=== PATIENT | female | born 1945 | race Caucasian/White ===

== ENCOUNTER 2017-06-16 08:53 | Inpatient (IN) | payer MEDICARE, SELFPAY ==
[2017-06-16] VITALS (10 sets, daily range): BP systolic 117–160; BP diastolic 58–77; PULSE 54–103; RESP 14–18; TEMP 36.7–37.1; O2SAT 95–98; BMI 22.7; BMI 21.2
--- NOTE | 2017-06-16 09:06 | EKG12_ITS ---
Test Reason : DIARRHEA Blood Pressure : / mmHG Vent. Rate : 091 BPM Atrial Rate : 091 BPM P-R Int : 186 ms QRS Dur : 092 ms QT Int : 362 ms P-R-T Axes : 049 007 049 degrees QTc Int : 445 ms Normal sinus rhythm Nonspecific ST abnormality Abnormal ECG Confirmed by MELY SMITH, DARCIE ([id number]), supervising editor news reel LILLIAN FORD ([id number]) on 06/18/2017 2:49:19 PM Referred By: SANTO Confirmed By:DARCIE BOONE MD
--- NOTE | 2017-06-16 09:07 | CT_ITS ---
STUDY: CT ABDOMEN AND PELVIS WITH CONTRAST REASON FOR EXAM: Female, 72 years old. Diarrhea since 06/05/2017. Nausea. Benign mass removed from left kidney. Previous tubal ligation and cholecystectomy. RADIATION DOSAGE (If Supplied By Facility): CTDIvol = ( 26.15 ) mGy, DLP = ( 563.60 ) mGycm TECHNIQUE: Transaxial images were obtained from the dome of the diaphragm to the symphysis pubis with oral contrast. 100CC ml of Isovue 300 contrast was administered. Sagittal and coronal images were reconstructed. Individualized dose optimization techniques were used for this CT. COMPARISON: 11/04/2016. FINDINGS: Minimal curvilinear subsegmental atelectases in the left posterior medial lung base. The visualized portions of the heart are within normal limits. Normal liver. Postsurgical absence of the gallbladder. Normal spleen. Normal pancreas. Normal bilateral adrenal glands. Normal right kidney. Normal left kidney. Prominent gastric hernia in the posterior mediastinum. There is a tubular foreign body that appears to extend from the right lateral L3 vertebral body margin through the inferior vena cava and into contrast-filled small bowel loops (series 2, images 31-35). This tube appears to have an air filled mushroom tip (series 2, image 33). Air distended colon. The appendix is not visualized or at least extremely hard to find. Atherosclerotic calcifications of the abdominal aorta. Tubular lucency traversing the IVC is uncertain for artifact (series 2, images 33-35). Normal retroperitoneum. Normal urinary bladder. Normal abdominal wall. Pronounced levo rotoscoliosis of the lumbar spine. Diffuse disc space height narrowing throughout the lumbar spine with degenerative vacuum phenomenon. No acute osseous abnormality. CT/Abdomen/Pelvis WITH Contrast IMPRESSION: 1. Tubular lucency foreign body versus artifact extending from the right lateral L3 vertebral body margin through the inferior vena cava and into the contrast-filled small bowel loops (series 2, images 31-35). This tube tip appears to have an air filled mushroom tip. 2. Gaseous dilatation of the colon. 3. Prominent gastric hernia in the posterior mediastinum. 4. Pronounced levo rotary scoliosis of the lumbar spine. Electronically Signed: Lux Zuniga MD at 11:56 EDT , Service support ,
--- NOTE | 2017-06-16 09:11 | ED.VISSUMM ---
- ER Visit Summary Date of Service: 06/16/17 Chief Complaint: Diarrhea History of Present Illness: The patient is a 72 F presenting with diarrhea ?11 days. Patient states that she has had persistent diarrhea which has worsened over the last several days. She denies blood in her stool. She has nausea with no vomiting. She has diffuse abdominal cramping. She denies fever. She saw her primary care physician last week and had blood work and stool studies sent. She does not know the results of her stool studies. She presents to the ED today due to generalized weakness and fatigue. She denies syncope. Denies chest pain shortness of breath. Physical Examination: Vitals are stable. Patient is afebrile. Alert no acute distress. HEENT exam is unremarkable. Neck is supple. Lungs are clear and equal bilaterally. Heart is regular rate and rhythm. Abdomen is soft nontender distended. No guarding or rebound Extremities are unremarkable. Skin is warm and dry. No focal neurologic deficit. Remainder of exam is unremarkable. Emergency Department Course and Treatment: Patient is given IV fluids, Zofran. EKG is sinus rhythm rate of 91. Urinalysis shows 25-50 white blood cells, 1+ bacteria. Urine culture was sent. She was given Rocephin IV. Chemistries show potassium 2.5. She is given potassium IV replacement. CT abdomen shows tubular lucency foreign body versus artifact extending from the right lateral L3 vertebral body margin through the inferior vena cava and into the contrast-filled small bowel loops (series 2, images 31-35). This tube tip appears to have an air filled mushroom tip. Gaseous dilatation of the colon. Prominent gastric hernia in the posterior mediastinum. Pronounced levo rotary scoliosis of the lumbar spine. Findings were discussed with the radiologist. Patient has had no procedures or drains to explain this. He states it may be artifact. On repeat exam her abdomen is soft and nontender. Discussed with the hospitalist for admission. Disposition: Admission Impression: Diarrhea, hypokalemia, UTI, generalized weakness This note was generated with [employer] dictation software. It may contain incorrect words, spelling, and punctuation that were not noted in review of the chart prior to signing ED Disposition - Plan for ED Patient: Chief Complaint: Diarrhea Referrals: Femi Baeza MD [Primary Care Provider] -
[2017-06-16 09:23] LABS: Mucous, Urine 0 SEEN /hpf (<or=2+)
[2017-06-16 09:24] LABS: Color, Urine Yellow (Yellow); Glucose, Dipstick Normal (Normal); Ketone-Dipstick 5 mg/dl (Negative); Leukocyte Esterase-Dipstick 500 /ul (Negative); Nitrite-Dipstick Negative (Negative); Occult Blood-Urine 50 /ul (Negative); Protein-Dipstick 30 mg/dl (Negative); Specific Gravity, Urine 1.015 (1.002-1.030); Urine Bilirubin Dipstick Negative (Negative); Urine Clarity Sl. Cloudy (Clear); Urine Urobilinogen Normal (Normal); Urine pH 6.5 (5.0 - 8.0)
[2017-06-16] MEDS: Ondansetron 4 MG/2 ML Vial IV (09:30)
[2017-06-16] MEDS: 0.9% Normal Saline 1,000 ML 1000 ML IV (09:30)
[2017-06-16 09:33] LABS: Bacteria 1+ /hpf (None Seen); Red Blood Cells-Urine 0-5 SEEN /hpf (0-5); Squamous Epithelial Cells - UA 0-5 SEEN /hpf (5-10); White Blood Cells 25-50 SEEN /hpf (0-5)
[2017-06-16 09:39] LABS: Absolute Lymphocyte Count 0.71 X10^3/ul (0.83-4.51); Absolute Neutrophil Count 8.4 X10^3/uL (2.0-7.7); Basophil# 0.01 X10^3/uL; Basophil% 0.1 % (0-1); Eosinophil# 0.01 X10^3/uL; Eosinophils% 0.1 % (0-5); Hematocrit 41.8 % (37-47); Hemoglobin 13.6 g/dl (12.0-15.0); Lymphocyte # 0.71 X10^3/ul (4.0); Lymphocyte % 7.1 % (19-41); Mean Corp Hgb Conc 32.5 g/gl (32-36); Mean Corpuscular Hgb 28.9 pg (27.0-32.0); Mean Corpuscular Volume 88.7 fL (81-99); Mean Platelet Vol. 10.5 fl (6.2-12.0); Monocyte# 0.85 X10^3/uL; Monocyte% 8.5 % (0-10); Neutrophil # 8.38 X10^3/uL (2.7-7.7); POSITIVE COUNT NO; POSITIVE DIFFERENTIAL NO; POSITIVE MORPHOLOGY NO; Platelet Count 171 K/mm3 (150-450); RBC Distribution Width CV 13.4 % (11.6-14.6); RBC Distribution Width SD 43.6 fl (35.1-43.9); Red Blood Count 4.71 M/mm3 (4.2-5.4)
[2017-06-16 10:00] LABS: Lactic Acid 1.1 mmol/L (0.4-2.0)
[2017-06-16 10:27] LABS: AST(SGOT) 21 U/L (15-37); Alanine Aminotransfer ALT/SGPT 27 U/L (13-56); Albumin, Serum 3.7 g/dL (3.2-5.0); Alkaline Phosphatase 78 U/L (45-117); Anion Gap 7 (5-15); BUN 13 mg/dL (7-18); Calcium,Total 8.8 mg/dL (8.5-10.1); Chloride 109 mmol/L (98-107); Creatinine, Serum 0.81 mg/dL (0.55-1.02); EST Glomerular Filtration Rate 74 mL/min (>60); Est Glom Filt Rate - Afr Amer 90 mL/min (>60); Estimated Creatinine Clearance 66.57 ml/min; Globulin 3.6 g/dL (2.2-4.2); Glucose 132 mg/dL (74-106); Potassium 2.5 mmol/L (3.5-5.1); Protein, Total 7.3 g/dL (6.4-8.2); Sodium Level 145 mmol/L (136-145)
[2017-06-16] MEDS: Ceftriaxone 1 GM/50 ML BAG IV (11:25)
[2017-06-16] MEDS: Heparin Injection (Vial) 5,000 UNIT/ML VIAL 5000 UNIT SC ×2 (16:42→21:02)
[2017-06-16 16:59] LABS: Magnesium 1.8 mg/dL (1.6-2.6)
--- NOTE | 2017-06-16 20:09 | HP.PCM_ITS ---
Problem List (1) Diarrhea Status: Acute Qualifiers: Diarrhea type: unspecified type Qualified Code(s): R19.7 - Diarrhea, unspecified (2) Hypokalemia Status: Acute (3) Benign essential hypertension Status: Chronic History of Present Illness Date of Admission: 06/16/17 Chief Complaint: Diarrhea Patient is a 72 years old female who presents to ED with complaining of diarrhea for 10 days, admitted on 06/16/17. She has been having diarrhea for about 10 days, bowel movements about 7 to 10 times a day with use of Imodium. She has mild abdominal discomfort with diffuse cramping. She denied of any nausea, vomiting, or hematochezia. She had some chills in the beginning, but no fever. She is having generalized weakness, decided to come to ED. She was seen at [facility] outpatient office few days ago, had stool test for c. diff, which was negative. She had no recent treatment with antibiotics. Past Medical History Past Medical History (Chronic Problems): Chronic Problems Overactive bladder (Chronic) GERD (gastroesophageal reflux disease) (Chronic) Osteoarthritis (Chronic) Benign essential hypertension (Chronic) Allergies esomeprazole [From Nexium] Adverse Reaction (Verified 06/16/17 08:55) Nausea/Vom/Diarrhea Home Medications: Ambulatory Orders Medication Instructions Recorded Acetaminophen [Tylenol] 500 - 1,000 mg PO Q6H PRN PRN 12/26/15 Alendronate Sodium [Fosamax] 70 mg PO Q7D@0700 12/26/15 Aspirin 81 mg PO DAILY 12/26/15 Cholecalciferol (VIT D3) [Vitamin 2,000 unit PO DAILY 12/26/15 D3] Cromolyn Sodium 4 drop OP Q6H PRN 12/26/15 Diltiazem HCl [Diltiazem 24Hr ER] 360 mg PO DAILY 12/26/15 Hydrochlorothiazide [Hctz] 25 mg PO DAILY 12/26/15 Losartan Potassium [Cozaar] 25 mg PO DAILY 12/26/15 Multivit-Min/FA/Lycopen/Lutein 1 each PO DAILY 12/26/15 [Centrum Silver Tablet] Oxybutynin [Ditropan] 5 mg PO BID 12/26/15 Pantoprazole Sodium [Protonix] 40 mg PO DAILY 12/26/15 Surgical History: cholecystectomy Smoking Status: Former smoker Tobacco Use: Cigarettes - *Family History Maternal History Items: No pertinent history Review of Systems Comment: ROS: In general: Patient has been in good health, denied of any constitutional symptoms, such as weight loss, or gain, fever, chills, or night sweats. Patient denied of any profound fatigue. HEENT: Unremarkable. Patient denied of any dizziness, chronic headache, blurred vision, double vision, dry mouth, or nasal congestion. CV/respiratory: There is no exertional shortness of breath, chest pain, palpitation, wheezing, cough, claudication, cold feet, or peripheral edema. GI: See HPI. : Patient denied any significant urinary symptoms. Neurology: Unremarkable. There is no history of seizure as an adult. Psychological: Unremarkable. ?. Endocrine: Unremarkable. Musculoskeletal: Unremarkable. VTE Information - Inpt Only VTE Present on Admission: No VTE Mechan Device Prophylaxis: Knee High ANGELO Hose VTE Pharm Prophylaxis ordered?: Yes Patient Problems: Active and Suspected Problems Diarrhea (Acute) Hypokalemia (Acute) Objective: In general, patient is a well-nourished and developed adult. HEENT: Head is atraumatic, and normocephalic. Pupils are equal, round, and reactive to light and accommodations. Neck is supple. There is no lymphadenopathy, or thyromegaly. Oral mucosa is pink, and moist. There are no lesions. Heart: Auscultation is normal with regular rhythm and rate. There is no extra heart sounds, or murmurs. S1 and S2 are present. Point of maximal impulse is not displaced. Lungs: Lungs are clear to auscultation bilaterally. There is no wheezing, or crackles. Abdomen: non-tender, mildly distended, not tympanic. Bowel sounds normal. NO palpable mass or organomegaly. Extremities: There is no cyanosis or clubbing. Peripheral pulses are palpable. There is no edema. Skin: There are no any skin discoloration or lesions. Neurological: CN II - XII are intact. Sensory and motor functions are grossly normal with no obvious deficit. Cerebellar functions are within normal range. Gait was not tested. - Physical Exam Vital Signs Temp Pulse Resp BP Pulse Ox 98.1 F 71 16 146/77 H 98 06/16/17 15:02 06/16/17 18:00 06/16/17 15:02 06/16/17 15:02 06/16/17 15:02 Oxygen Delivery Method Room Air Weight: 146 lb Body Mass Index (BMI) 21.2 Intake and Output for Last 24 Hours 06/14/17 06/15/17 06/16/17 23:59 23:59 23:59 Intake Total 621 / 621 Balance 621 / 621 Microbiology Past 72 Hours 06/16/17 14:50 C. difficile DNA Amplification - Final Stool Assessment/Plan Active and Suspected Problems Diarrhea (Acute) Hypokalemia (Acute) Patient is a 72 years old female who presents to ED with complaining of diarrhea for 10 days, admitted on 06/16/17. She has been having diarrhea for about 10 days, bowel movements about 7 to 10 times a day with use of Imodium. She has mild abdominal discomfort with diffuse cramping. She denied of any nausea, vomiting, or hematochezia. She had some chills in the beginning, but no fever. She is having generalized weakness, decided to come to ED. She was seen at [facility] outpatient office few days ago, had stool test for c. diff, which was negative. She had no recent treatment with antibiotics. #1 Diarrhea. Etiology is not very clear. Repeated c. diff toxin was negative. Enteric panel, lactoferrin, h. pylori, culture with shigella, and giardia EIA ordered. IVF support. Clear liquid diet, advance as tolerated. Consider GI and ID consult. #2 Hypokalemia. K+ 2.5. Secondary to persisting diarrhea. Hold HCTZ. KCL IVP 40 meq x 2. Start K-Dur 40 meq po bid. BMP and Mg level in AM. #3 GERD. Continue PPI po. #4 History of laxative abuse. CT showed dilated bowel, more consistent with chronic change with laxative bowel. VTE prophylaxis: heparin SQ. GI prophylaxis: ppi po. She is full code. Disposition: home in 1 to 2 days. Code Visit Inpatient E&M: 31963 Init Hosp L3
[2017-06-16] MEDS: Oxybutynin 5 MG Tablet PO (21:08)
[2017-06-17] VITALS (11 sets, daily range): BP systolic 129–151; BP diastolic 66–100; PULSE 62–86; RESP 16–18; TEMP 36.6–37.5; O2SAT 96–98
[2017-06-17] MEDS: Ondansetron 4 MG/2 ML Vial IV (02:08)
[2017-06-17] MEDS: Acetaminophen 325 MG Tablet 650 MG PO (02:09)
[2017-06-17] MEDS: proMETHazine 25 MG/ML Syringe 12.5 MG IV (04:48)
[2017-06-17] MEDS: Heparin Injection (Vial) 5,000 UNIT/ML VIAL 5000 UNIT SC ×3 (05:36→22:39)
[2017-06-17 06:10] LABS: Absolute Lymphocyte Count 1.13 X10^3/ul (0.83-4.51); Absolute Neutrophil Count 3.5 X10^3/uL (2.0-7.7); Basophil# 0.02 X10^3/uL; Basophil% 0.4 % (0-1); Eosinophil# 0.09 X10^3/uL; Eosinophils% 1.7 % (0-5); Hematocrit 37.6 % (37-47); Hemoglobin 11.9 g/dl (12.0-15.0); Lymphocyte # 1.13 X10^3/ul (4.0); Lymphocyte % 21.2 % (19-41); Mean Corp Hgb Conc 31.6 g/gl (32-36); Mean Corpuscular Hgb 28.3 pg (27.0-32.0); Mean Corpuscular Volume 89.5 fL (81-99); Mean Platelet Vol. 11.2 fl (6.2-12.0); Monocyte# 0.55 X10^3/uL; Monocyte% 10.3 % (0-10); Neutrophil # 3.54 X10^3/uL (2.7-7.7); Neutrophil % 66.2 % (47-70); Platelet Count 170 K/mm3 (150-450); RBC Distribution Width CV 13.6 % (11.6-14.6); RBC Distribution Width SD 44.6 fl (35.1-43.9); White Blood Count 5.3 K/mm3 (4.4-11.0)
[2017-06-17 06:33] LABS: POSITIVE COUNT NO; POSITIVE DIFFERENTIAL NO; POSITIVE MORPHOLOGY NO
[2017-06-17 06:35] LABS: Anion Gap 6 (5-15); BUN 6 mg/dL (7-18); BUN/Creat Ratio 10.8 RATIO (10-20); Calcium,Total 8.3 mg/dL (8.5-10.1); Chloride 110 mmol/L (98-107); Creatinine, Serum 0.56 mg/dL (0.55-1.02); EST Glomerular Filtration Rate 114 mL/min (>60); Est Glom Filt Rate - Afr Amer 138 mL/min (>60); Estimated Creatinine Clearance 53.93 ml/min; Glucose 111 mg/dL (74-106); Magnesium 1.6 mg/dL (1.6-2.6); Potassium 2.7 mmol/L (3.5-5.1); Sodium Level 144 mmol/L (136-145)
[2017-06-17] MEDS: Aspirin 81 MG TAB.CHEW PO (08:07)
--- NOTE | 2017-06-17 09:16 | PCM.PROGNOTE ---
Patient Problems: Active and Suspected Problems Diarrhea (Acute) Hypokalemia (Acute) Subjective: Chief complaint: Follow-up after admission for acute diarrhea illness and severe hypokalemia. Patient seen and examined. No acute events overnight. She is still complaining of perfuse watery diarrhea, 3 times overnight and twice this morning. Denied abdominal pain, nausea or vomiting. Denied fever chills. Her vital signs are stable. - Physical Exam General: Alert, Oriented x3, Cooperative, No apparent distress HEENT: Atraumatic, PERRLA Oral: Moist Mucosa, No Gingival or Mucosal Lesions/ Ulcerations Neck: Supple, No JVD, Negative Carotid Bruits, Trachea Midline, Thyroid Normal Size and Texture Lungs: Clear to auscultation, No rhonchi, No wheeze, No rales, Diminished Cardiovascular: Regular rate, Regular Rhythm, Normal S1, Normal S2, PMI Normal Abdomen: Bowel Sounds Present, Soft, Non Tender, Non-Distended, No Hepato-splenomegaly Extremities: No clubbing, No cyanosis, No edema Skin: No rashes, No breakdown Lymphatic: No Cervical, Supraclavicular, or Inguinal Adenopathy Neurological: Cranial nerves II-XII grossly intact, Motor Exam 5/5 strength throughout Psych/Mental Status: Normal Affect, Appropriate Vital Signs Temp Pulse Resp BP Pulse Ox 97.8 F 71 18 151/100 H 96 06/17/17 08:14 06/17/17 08:14 06/17/17 08:14 06/17/17 08:14 06/17/17 08:14 Oxygen Delivery Method Room Air Weight: 146 lb Body Mass Index (BMI) 21.2 Intake and Output for Last 24 Hours 06/15/17 06/16/17 06/17/17 23:59 23:59 23:59 Intake Total 621 / 621 2065 / 2065 Output Total 1600 / 1600 Balance 621 / 621 465 / 465 Microbiology Past 72 Hours 06/16/17 14:50 Stool Lactoferrin - Final Stool 06/16/17 14:50 C. difficile DNA Amplification - Final Stool Laboratory Tests Past 24 Hrs 06/16/17 06/17/17 06/17/17 20:30 05:10 05:10 WBC 5.3 RBC 4.20 Hgb 11.9 L Hct 37.6 MCV 89.5 MCH 28.3 MCHC 31.6 L RDW 13.6 RDW Differential 44.6 H Plt Count 170 MPV 11.2 Immature Gran % (Auto) 0.200 Neut % (Auto) 66.2 Lymph % (Auto) 21.2 [place] % (Auto) 10.3 H Eos % (Auto) 1.7 Baso % (Auto) 0.4 Absolute Neuts (auto) 3.5 Absolute Lymphs (auto) 1.13 Total Counted Not Reportable Sodium 144 Potassium 2.7 L* Chloride 110 H Carbon Dioxide 28.0 Anion Gap 6 BUN 6 L Creatinine 0.56 Estim Creat Clear Calc 53.93 Est GFR (MDRD) Af Amer 138 Est GFR (MDRD) Non-Af 114 BUN/Creatinine Ratio 10.8 Glucose 111 H Calcium 8.3 L Magnesium 1.6 Stl Giardia Antigen Pending Stool H. pylori Ag Pending Medical Necessity - Tobacco Use Smoking Status: Former smoker Tobacco Use: Cigarettes Assessment/Plan Active and Suspected Problems Diarrhea (Acute) Hypokalemia (Acute) This is a 72 years old female patient admitted because of diarrhea and she was found to have severe hypokalemia as well as suspected foreign body on CT scan abdomen. #1 acute diarrheal illness: Probably due to viral gastroenteritis. Stool for C. difficile was negative. Stool for enteric pathogens also was negative. Patient still symptomatic with diarrhea. Denied fever chills. Denied abdominal pain. She is on IV fluids. She is tolerating diet, kidney function is normal. Plan: Continue same treatment. #2 severe hypokalemia: This is secondary to perfuse diarrhea as well as HCTZ. She is on aggressive potassium replacement, HCTZ on hold. Today's potassium is still 2.7, is very low. Her magnesium level is normal. Plan to continue aggressive potassium replacement, repeat potassium at 1 PM today, repeat BMP tomorrow morning. #3 questionable foreign body: This is an incidental finding on CT scan abdomen and pelvis with contrast which revealed tubular foreign body extends from right lateral L3 vertebra through the inferior vena cava and into the contrast filled small bowel loops. Patient denies any abdominal pain. Abdominal examination is benign. This could be hard stool with overflow diarrhea. Reportedly, patient had a history of laxative abuse. Plan: General surgery consult. #4 hypertension: Blood pressure stable, continue Cardizem and losartan. #5 GERD: Continue Protonix. #6 overactive bladder: Continue Ditropan. #7 DVT prophylaxis: Subcu heparin. This note was generated with [employer] dictation software. It may contain incorrect words, spelling, and punctuation that were not noted in checking the note before signing. Code Visit Inpatient E&M: 04114 Subs Hosp L2
--- NOTE | 2017-06-17 11:02 | CASEMGMT ---
RN YASH Face to Face with patient for initial transition planning/care coordination assessment. RN CM introduced self and role at [facility]. Patient lying in bed, alert and oriented, son at bedside. Patient willing to participate in assessment and is able to answer all questions appropriately. Care providers, pharmacy, and demographics verified. See link attached. Patient wishes to discharge home, denies need for home health at this time. Patient states she has no further needs or concerns at this time. CM to follow for discharge planning needs that may arise. Disposition Plan: Patient to discharge home with family support and follow-up plans in place.
[2017-06-17] MEDS: Pantoprazole Sodium 40 MG Tablet PO (11:18)
[2017-06-17] MEDS: dilTIAZem CD 180 MG Capsule 360 MG PO (11:18)
[2017-06-17] MEDS: Losartan Potassium 25 MG Tablet PO (11:18)
[2017-06-17] MEDS: Oxybutynin 5 MG Tablet PO ×2 (11:18→22:37)
[2017-06-17] MEDS: Magnesium Hydroxide 30 ML UDC PO (12:27)
[2017-06-17] MEDS: Magnesium Oxide 400 MG Tablet PO (17:15)
[2017-06-17] MEDS: Ciprofloxacin 500 MG Tablet PO (18:26)
[2017-06-18 01:50] VITALS: PULSE 62
[2017-06-18 03:00] VITALS: BP 125/72; PULSE 63; RESP 16; TEMP 37.2; O2SAT 95
[2017-06-18] MEDS: Ciprofloxacin 500 MG Tablet PO (05:48)
[2017-06-18] MEDS: Heparin Injection (Vial) 5,000 UNIT/ML VIAL 5000 UNIT SC (05:48)
[2017-06-18 06:00] VITALS: PULSE 76
[2017-06-18 06:54] LABS: Anion Gap 6 (5-15); BUN 5 mg/dL (7-18); BUN/Creat Ratio 8.5 RATIO (10-20); Calcium,Total 8.7 mg/dL (8.5-10.1); Chloride 108 mmol/L (98-107); Creatinine, Serum 0.59 mg/dL (0.55-1.02); EST Glomerular Filtration Rate 107 mL/min (>60); Est Glom Filt Rate - Afr Amer 129 mL/min (>60); Estimated Creatinine Clearance 53.93 ml/min; Glucose 115 mg/dL (74-106); Potassium 3.8 mmol/L (3.5-5.1); Sodium Level 141 mmol/L (136-145)
[2017-06-18 07:25] VITALS: PULSE 55
[2017-06-18] MEDS: Magnesium Oxide 400 MG Tablet PO (07:38)
[2017-06-18] MEDS: Aspirin 81 MG TAB.CHEW PO (07:39)
[2017-06-18 08:09] VITALS: BP 134/75; PULSE 67; RESP 16; TEMP 37.4; O2SAT 98
--- NOTE | 2017-06-18 08:55 | PCM.DC ---
- Discharge Diagnoses Current Active Problems: Current Active and Chronic Problems Diarrhea (Acute) Hypokalemia (Acute) You will use the following diet at home:: Cardiac, High fiber Your food should be the consistency of: Regular Discharge Activity: Return to Normal Activity Weight Bearing Status: Weight bearing as tolerated Call your doctor if you observe: Fever of 101 or Higher, Shortness of breath, Dizziness, Fainting spells, Chest pain, Increased palpitations (irregular heartbeat), Uncontrolled pain Allergies/Adverse Reactions: Allergies esomeprazole [From Nexium] Adverse Reaction (Verified 06/16/17 08:55) Nausea/Vom/Diarrhea Medications to take at Discharge Acetaminophen [Tylenol] 500 - 1,000 mg PO Q6H PRN PRN 12/26/15 Alendronate Sodium [Fosamax] 70 mg PO Q7D@0700 12/26/15 Aspirin 81 mg PO DAILY 12/26/15 Cholecalciferol (VIT D3) [Vitamin D3] 2,000 unit PO DAILY 12/26/15 Diltiazem HCl [Diltiazem 24Hr ER] 360 mg PO DAILY 12/26/15 Hydrochlorothiazide [Hctz] 25 mg PO DAILY 12/26/15 Losartan Potassium [Cozaar] 25 mg PO DAILY 12/26/15 Multivit-Min/FA/Lycopen/Lutein [Centrum Silver Tablet] 1 each PO DAILY 12/26/15 Oxybutynin [Ditropan] 5 mg PO BID 12/26/15 Pantoprazole Sodium [Protonix] 40 mg PO DAILY 12/26/15 Ciprofloxacin [Cipro] 500 mg PO BID #10 tab 06/18/17 Magnesium Oxide [Mag-Ox 400] 400 mg PO BIDCM #14 tab 06/18/17 Polyethylene Glycol 3350 [Miralax] 17 gm PO DAILY #30 packet 06/18/17 Potassium Chloride [K-Dur] 40 meq PO DAILY #30 tab 06/18/17 The following prescriptions were given: Polyethylene Glycol 3350 [Miralax] 17 gm PO DAILY #30 packet Potassium Chloride [K-Dur] 40 meq PO DAILY #30 tab Ciprofloxacin [Cipro] 500 mg PO BID #10 tab Magnesium Oxide [Mag-Ox 400] 400 mg PO BIDCM #14 tab Primary Care Physician: Femi Baeza MD [Primary Care Provider] - Please follow up with your Primary Care Physician in: 1 week.
[2017-06-18] MEDS: Oxybutynin 5 MG Tablet PO (09:54)
[2017-06-18] MEDS: dilTIAZem CD 180 MG Capsule 360 MG PO (09:55)
[2017-06-18] MEDS: Losartan Potassium 25 MG Tablet PO (09:55)
[2017-06-18] MEDS: Pantoprazole Sodium 40 MG Tablet PO (09:56)
[2017-06-18 12:48] VITALS: BP 125/70; PULSE 78; RESP 16; TEMP 37.2; O2SAT 98
--- NOTE | 2017-06-18 16:16 | DS.PCM_ITS ---
Discharge Date and Diagnosis Date of Admission: 06/16/17 Date of Discharge: 06/18/17 - Primary Discharge Diagnosis #1 acute diarrhea illness, likely due to overflow diarrhea versus viral gastroenteritis. #2 severe hypokalemia. #3 Pseudomonas aeruginosa acute cystitis. - Secondary Discharge Diagnosis Chronic Problems Overactive bladder (Chronic) GERD (gastroesophageal reflux disease) (Chronic) Osteoarthritis (Chronic) Benign essential hypertension (Chronic) Hospital Course and Treatment Imaging Results: Clinical Impression(s) from Imaging Studies Abdomen/Pelvis CT 06/16/17 09:07 IMPRESSION: 1. Tubular lucency foreign body versus artifact extending from the right lateral L3 vertebral body margin through the inferior vena cava and into the contrast-filled small bowel loops (series 2, images 31-35). This tube tip appears to have an air filled mushroom tip. 2. Gaseous dilatation of the colon. 3. Prominent gastric hernia in the posterior mediastinum. 4. Pronounced levo rotary scoliosis of the lumbar spine. Electronically Signed: Lux Zuniga MD at 11:56 EDT , Service support , ADDENDUM: 06/16/17 1204 ADDENDUM: 06/16/17 1236 Operations: None Procedures: None Summary of Care Provided: Patient seen and examined on the day of discharge and appeared to be stable to be discharged home. She still having diarrhea but stools started to be performed. No more watery stool. Denied abdominal pain, nausea vomiting. She is afebrile. Her vital signs are stable. - Physical Exam General: Alert, Oriented x3, Cooperative, No apparent distress. HEENT: Atraumatic, PERRLA, EOMI. Neck: Supple, No JVD, Negative Carotid Bruits, Trachea Midline, Thyroid Normal. Lungs: Diminished breath sounds bilateral, otherwise clear, No rhonchi, No wheeze, No rales. Cardiovascular: Regular rate, Regular Rhythm, Normal S1, Normal S2, PMI Normal. Abdomen: Bowel Sounds Present, Soft, Non Tender, Non-Distended, No Hepato- splenomegaly. Extremities: No clubbing, No cyanosis, No edema Skin: No rashes, No breakdown Neurological: Neuro grossly intact Vital Signs are stable. Hospital course: The patient is a 72 year old F admitted because of perfuse watery diarrhea and she was found to have severe hypokalemia. This diarrhea attributed to probable overflow diarrhea with chronic constipation. CT scan of the abdomen and pelvis with contrast revealed gaseous dilatation of the colon, fecal material and questionable tubular lucency foreign body versus artifact that was extending from the right lateral L3 vertebral body through the inferior vena cava and into the contrast filled small bowel loops. Admission potassium was 2.5. Her serum magnesium were normal. Her kidney function was unremarkable. Patient was treated with aggressive replacement of her potassium as well as IV fluids and she continued to have loose stool. Her potassium normalized and she started to have more formed stool. Her stool for C. difficile was negative. Stool for enteric pathogens were negative as well. She did mention that she has been having issues with constipation lately. And that is why this diarrhea attributed to probable overflow diarrhea. I contacted general surgery, Dr. Storey, regarding the questionable foreign body on the CT scan abdomen and he stated that that is an artifact and there is no evidence of other acute findings. Her urinalysis revealed cloudy urine, negative for nitrite, there was 500 leukocyte esterase, 25-50 WBCs and 1+ bacteria. She was treated with ciprofloxacin. Urine culture revealed pseudomonas aeruginosa which was sensitive to ciprofloxacin. Patient discharged home in stable medical condition , discharged on ciprofloxacin for pseudomonas aeruginosa acute cystitis, discharged on potassium supplement, order given to repeat BMP in 1 week, prescription given for daily MiraLAX because of chronic constipation, recommended follow-up with PCP in 1 week. Discharge Activity: Return to Normal Activity Weight Bearing Status: Weight bearing as tolerated Call your doctor if you observe: Fever of 101 or Higher, Shortness of breath, Dizziness, Fainting spells, Chest pain, Increased palpitations (irregular heartbeat), Uncontrolled pain Home Medications: Medications to take at Discharge Acetaminophen [Tylenol] 500 - 1,000 mg PO Q6H PRN PRN 12/26/15 Alendronate Sodium [Fosamax] 70 mg PO Q7D@0700 12/26/15 Aspirin 81 mg PO DAILY 12/26/15 Cholecalciferol (VIT D3) [Vitamin D3] 2,000 unit PO DAILY 12/26/15 Diltiazem HCl [Diltiazem 24Hr ER] 360 mg PO DAILY 12/26/15 Hydrochlorothiazide [Hctz] 25 mg PO DAILY 12/26/15 Losartan Potassium [Cozaar] 25 mg PO DAILY 12/26/15 Multivit-Min/FA/Lycopen/Lutein [Centrum Silver Tablet] 1 each PO DAILY 12/26/15 Oxybutynin [Ditropan] 5 mg PO BID 12/26/15 Pantoprazole Sodium [Protonix] 40 mg PO DAILY 12/26/15 Ciprofloxacin [Cipro] 500 mg PO BID #10 tab 06/18/17 Magnesium Oxide [Mag-Ox 400] 400 mg PO BIDCM #14 tab 06/18/17 Polyethylene Glycol 3350 [Miralax] 17 gm PO DAILY #30 packet 06/18/17 Potassium Chloride [K-Dur] 40 meq PO DAILY #30 tab 06/18/17 Following Prescrptions Were Given to Patient: Polyethylene Glycol 3350 [Miralax] 17 gm PO DAILY #30 packet Potassium Chloride [K-Dur] 40 meq PO DAILY #30 tab Ciprofloxacin [Cipro] 500 mg PO BID #10 tab Magnesium Oxide [Mag-Ox 400] 400 mg PO BIDCM #14 tab Primary Care Physician: Femi Baeza MD [Primary Care Provider] - Please follow up with your Primary Care Physician in: 1 week. Disposition: Home Minutes spent on discharge:: 32 Patient Condition:: Stable Medical Necessity - Tobacco Use Smoking Status: Former smoker Tobacco Use: Cigarettes Meaningful Use Info Meaningful Use Diagnoses (Choose all that apply): None applicable Code Visit Inpatient E&M: 08643 Disch Hosp
[2017-06-19 14:07] LABS: H. PYLORI STOOL AG Negative (Negative)
[2017-06-19 18:25] LABS: Giardia Lamblia, Stool EIA Negative (Negative)
== END 2017-06-18 12:50 | disposition home or self-care (01) | DRG 392 ==
LOC: ED 13:46 → MS3 14:12
PROVIDERS: Admitting Provider Hospitalist; Emergency Provider Emergency Medicine; Family Provider Internal Medicine; PCP Internal Medicine; Visit Provider Hospitalist
DX: A08.4 Viral intestinal infection, unspecified (principal); N30.00 Acute cystitis without hematuria; E87.6 Hypokalemia; B96.5 Pseudomonas (aeruginosa) (mallei) (pseudomallei) as the cause of diseases classified elsewhere; I10 Essential (primary) hypertension; K59.00 Constipation, unspecified; K21.9 Gastro-esophageal reflux disease without esophagitis; N32.81 Overactive bladder; Z87.891 Personal history of nicotine dependence; Z90.49 Acquired absence of other specified parts of digestive tract; Z79.82 Long term (current) use of aspirin; F55.2 Abuse of laxatives
CPT/HCPCS: 36415; 74177; 80048; 80053; 81001; 83605; 83630; 83735; 84132; 84484; 85025; 87086; 87088; 87184; 87186; 87329; 87493; 87506; 93005; 99285; J7030; J7040; J7050; Q9967; A4216; J2405

== ENCOUNTER → 2018-07-21 14:41 | Outpatient (CLI) | payer MEDICARE, SELFPAY ==
--- NOTE | 2018-07-21 15:23 | RAD_ITS ---
STUDY: X-RAY - ABDOMEN/PELVIS REASON FOR EXAM: Female, 73 years old. Left-sided renal cancer. Right-sided pain. TECHNIQUE: AP supine abdomen. COMPARISON: Technology Development Intern view CT abdomen and pelvis June 16, 2017. FINDINGS: Normal visualized lung bases. There is an unremarkable bowel gas pattern. Stool present throughout the colon suggestive of fecal retention. There is no demonstrated free abdominal air. The visualized liver, spleen and kidneys are grossly normal in size and morphology. Normal soft tissue structures. Severe lumbar levoscoliosis unchanged. Multilevel degenerative changes of the lower thoracic and lumbar spine. RAD/Abdomen Single View IMPRESSION: Findings suggestive of fecal retention. Electronically Signed: Marc Stone MD at 6:38 EDT , Service support ,
[2018-07-21 15:41] LABS: Hematocrit 40.2 % (37-47); Mean Corp Hgb Conc 32.3 g/gl (32-36); Mean Corpuscular Hgb 28.9 pg (27.0-32.0); Mean Corpuscular Volume 89.3 fL (81-99); Mean Platelet Vol. 11.2 fl (6.2-12.0); Platelet Count 171 K/mm3 (150-450); RBC Distribution Width CV 13.1 % (11.6-14.6); RBC Distribution Width SD 42.5 fl (35.1-43.9); White Blood Count 6.4 K/mm3 (4.4-11.0)
[2018-07-21 15:43] LABS: Scan Indicated on CBC? Y/N NO
[2018-07-21 16:06] LABS: Anion Gap 7 (5-15); BUN 22 mg/dL (7-18); BUN/Creat Ratio 27.5 RATIO (10-20); Calcium,Total 9.5 mg/dL (8.5-10.1); Chloride 106 mmol/L (98-107); EST Glomerular Filtration Rate 75 mL/min (>60); Est Glom Filt Rate - Afr Amer 90 mL/min (>60); Glucose 96 mg/dL (74-106); Sodium Level 141 mmol/L (136-145)
== END ==
PROVIDERS: Family Provider Internal Medicine; PCP Internal Medicine; Referring Provider Urology; Visit Provider Urology
DX: C64.9 Malignant neoplasm of unspecified kidney, except renal pelvis (principal)
CPT/HCPCS: 36415; 74018; 80048; 85027

== ENCOUNTER → 2019-12-24 14:50 | Outpatient (CLI) | payer MEDICARE, SELFPAY ==
--- NOTE | 2019-12-24 14:55 | BD_ITS ---
STUDY: DUAL ENERGY X-RAY ABSORPTIOMETRY / DXA REASON FOR EXAM: Female, 74 years old. 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 COMPARISON: None. FINDINGS: Lumbar Spine (L1-L4): g/cm2 (1.259) / T-score (0.5) / Z-score (2.2) Findings are suggestive of normal bone density with a low fracture risk. Left Femur Total: g/cm2 (0.678) / T-score (-2.6) / Z-score (-1.0) Left Femoral Neck: g/cm2 (0.757) / T-score (-2.0) / Z-score (-0.2) Right Femur Total: g/cm2 (0.708) / T-score (-2.4) / Z-score (-0.7) Right Femoral Neck: g/cm2 (0.707) / T-score (-2.4) / Z-score (-0.5) BD/Dexa Bone Density Study IMPRESSION: The patient is considered osteoporotic as outlined below according to World Kash Organization (WHO) criteria with a high fracture risk. Reference Information: The T-score is the number of standard deviations above or below the standard which is normal for young adults at their peak bone mineral density. The World Health Organization (WHO) interprets the T-scores as follows: Above -1 Normal bone density Between -1 and -2.5 Osteopenia Equal to / or below -2.5 Osteoporosis As a practical clinical guideline, osteopenia may be graded as follows: Mild -1 through -1.5 Moderate -1.6 through -2.0 Severe -2.1 through -2.4 The Z-score is the number of standard deviations above or below age-matched controls. A Z-score of less than -1.5 would be considered abnormal. References: 1. NIH Osteoporosis and Related Bone Diseases www osteo.org 2. International Society for Clinical Densitometry www iscd.org 3. National Osteoporosis Foundation www nof.org Electronically Signed: Jose England, at 15:22 EDT , Service support ,
== END ==
PROVIDERS: PCP Internal Medicine; Referring Provider Internal Medicine; Visit Provider Internal Medicine
DX: M81.0 Age-related osteoporosis without current pathological fracture (principal)
CPT/HCPCS: 77080

== ENCOUNTER 2020-05-05 13:04 | Outpatient (RCR) | payer MEDICARE, SELFPAY ==
[2017-06-16 15:01] VITALS: BMI 21.2
[2020-05-05] MEDS: COVID-19 VACC, MRNA(PFIZER)/PF 30 MCG/0.3 ML SYRINGE IM (16:19)
[2020-05-26] MEDS: COVID-19 VACC, MRNA(PFIZER)/PF 30 MCG/0.3 ML SYRINGE IM (15:31)
== END 2020-08-09 23:59 ==
LOC: IMMUN 13:04
PROVIDERS: PCP Internal Medicine; Visit Provider Family Medicine
DX: Z23 Encounter for immunization (principal)
CPT/HCPCS: 0001A; 0002A; 91300

== ENCOUNTER 2020-09-08 12:57 | Emergency (ER) | payer MEDICARE, SELFPAY ==
[2020-09-08 12:58] VITALS: BP 134/91; PULSE 90; RESP 15; TEMP 37.5; O2SAT 96
[2020-09-08 13:41] LABS: Absolute Lymphocyte Count 0.78 X10^3/uL (0.83-4.51); Absolute Neutrophil Count 6.5 X10^3/uL (2.0-7.7); Basophil# 0.02 X10^3/uL; Basophil% 0.3 % (0-1); Hematocrit 41.1 % (37-47); Hemoglobin 13.2 g/dL (12.0-15.0); Lymphocyte # 0.78 X10^3/ul (0.83-4.51); Lymphocyte % 9.8 % (19-41); Mean Corp Hgb Conc 32.1 g/dL (32-36); Mean Corpuscular Hgb 28.9 pg (27.0-32.0); Mean Corpuscular Volume 90.1 fL (81-99); Mean Platelet Vol. 10.5 fl (6.2-12.0); Monocyte# 0.61 X10^3/uL; Monocyte% 7.7 % (0-10); NRBC Flagged by Analyzer 0 % (0-5); Neutrophil % 81.9 % (47-70); Platelet Count 178 K/mm3 (150-450); RBC Distribution Width CV 12.5 % (11.6-14.6); Red Blood Count 4.56 M/mm3 (4.2-5.4); White Blood Count 7.9 K/mm3 (4.4-11.0)
[2020-09-08 13:57] LABS: ALB/GLOB Ratio 1.3 RATIO (0.9-2.4); AST(SGOT) 15 U/L (15-37); Alanine Aminotransfer ALT/SGPT 18 U/L (13-56); Albumin, Serum 4.1 g/dL (3.2-5.0); Alkaline Phosphatase 64 U/L (45-117); Anion Gap 4 (5-15); BUN 17 mg/dL (7-18); BUN/Creat Ratio 24.1 RATIO (10-20); Calcium,Total 9.5 mg/dL (8.5-10.1); Chloride 101 mmol/L (98-107); EST Glomerular Filtration Rate 86 mL/min (>60); Est Glom Filt Rate - Afr Amer 104 mL/min (>60); Estimated Creatinine Clearance 46.65 ml/min; Globulin 3.2 g/dL (2.2-4.2); Glucose 126 mg/dL (74-106); Potassium 3.9 mmol/L (3.5-5.1); Protein, Total 7.3 g/dL (6.4-8.2); Sodium Level 133 mmol/L (136-145)
[2020-09-08 13:59] LABS: Mucous, Urine 0 SEEN /hpf (<or=2+); Red Blood Cells-Urine 0 SEEN /hpf (0-5); Squamous Epithelial Cells - UA 0 SEEN /hpf (5-10)
[2020-09-08 14:01] LABS: Color, Urine Yellow (Yellow); Glucose, Dipstick Normal (Normal); Ketone-Dipstick Negative (Negative); Leukocyte Esterase-Dipstick 25 /ul (Negative); Nitrite-Dipstick Negative (Negative); Occult Blood-Urine 10 /ul (Negative); Protein-Dipstick Negative (Negative); Specific Gravity, Urine 1.015 (1.002-1.030); Urine Bilirubin Dipstick Negative (Negative); Urine Clarity Sl. Cloudy (Clear); Urine Urobilinogen Normal (Normal); Urine pH 6.5 (5.0 - 8.0)
[2020-09-08 14:07] LABS: Bacteria RARE /hpf (None Seen); White Blood Cells 0-5 SEEN /hpf (0-5)
--- NOTE | 2020-09-08 14:07 | EDS_ITS ---
HPI History of Present Illness Chief Complaint: General Illness Informant: patient Narrative Narrative: Patient is a 75-year-old female who presents to the emergency department for multiple complaints. She is currently being treated for shingles going down her left leg. This has been improving. She states that both of her legs feel achy. She also has suprapubic pressure. She has been having burning with urination. She was treated on a course of antibiotics 1 month ago. She still has symptoms and saw a urologist who placed her on a 3-day course of antibiotic. She is still having some symptoms. She denies any fevers or chills. She has not had any episodes of vomiting or change in bowel movements. No chest pain, shortness of breath. [facility] Medical History (Updated 09/08/20 @ 13:40 by Hannah Reed) Bladder prolapse GERD (gastroesophageal reflux disease) HTN (hypertension) Hx of renal cell carcinoma Hypoglycemia Lumbar radiculopathy Osteoporosis Scoliosis Home Medications alendronate 70 mg PO Q7D@0700 12/26/15 [History Last Taken Unknown] aspirin 81 mg PO DAILY 12/26/15 [History Last Taken Unknown] cholecalciferol (vitamin D3) [Vitamin D3] 1,000 unit PO DAILY 12/26/15 [History Last Taken Unknown] hydrochlorothiazide 25 mg PO DAILY 12/26/15 [History Last Taken Unknown] losartan 25 mg PO DAILY 12/26/15 [History Last Taken Unknown] xtieswfp-ifp-SZ-lycopen-lutein [Centrum Silver] 1 ea PO DAILY 12/26/15 [History Last Taken Unknown] oxybutynin chloride 5 mg PO BID 12/26/15 [History Last Taken Unknown] magnesium oxide 400 mg PO BIDCM #14 tab 06/18/17 [Rx Last Taken Unknown] polyethylene glycol 3350 17 gm PO DAILY #30 packet 06/18/17 [Rx Last Taken Unknown] potassium chloride 40 meq PO DAILY #30 tab 06/18/17 [Rx Last Taken Unknown] cephalexin 500 mg PO BID 10 Days #20 cap 09/08/20 [Rx Last Taken Unknown] diltiazem HCl 360 mg PO DAILY 09/08/20 [History Last Taken Unknown] famciclovir 500 mg PO Q8H 09/08/20 [History Last Taken Unknown] fexofenadine 180 mg PO DAILY 09/08/20 [History Last Taken Unknown] lorazepam 0.5 mg PO DAILY 09/08/20 [History Last Taken Unknown] omeprazole 40 mg PO DAILY 09/08/20 [History Last Taken Unknown] Allergy/AdvReac Type Severity Reaction Status Date / Time esomeprazole [From Nexium] AdvReac Nausea/Vom/ Verified 09/08/20 13:01 Diarrhea Social History Smoking Status: Former smoker ROS ROS ED Constitutional Constitutional ED: Denies chills or fever(s) Eyes Eyes: Denies change in vision ENT ENT ED: Denies epistaxis or rhinorrhea Cardiovascular Cardiovascular: Denies chest pain or palpitations Respiratory/Chest Respiratory/Chest: Denies cough, dyspnea or dyspnea on exertion Genitourinary Genitourinary ED: Reports dysuria; Denies hematuria Musculoskeletal Musculoskeletal: Reports myalgias; Denies back pain or neck pain Integumentary Reports rash Neurologic Neurologic: Denies dizziness, headache(s) or weakness EXAM Physical Exam Const Vital Signs: 09/08/20 12:58 09/08/20 13:18 09/08/20 14:01 Temperature 99.5 F H Temperature Source Temporal Pulse Rate 90 Respiratory Rate 15 Respiratory Pattern Normal Normal Blood Pressure 134/91 H Blood Pressure Mean 105 Pulse Ox 96 Oxygen Delivery Method Room Air 09/08/20 15:36 Temperature Temperature Source Pulse Rate 61 Respiratory Rate 16 Respiratory Pattern Blood Pressure 142/73 H Blood Pressure Mean Pulse Ox 97 Oxygen Delivery Method Positive well nourished and well developed General Appearance ED: well developed and NAD HEENT Reports normocephalic, head/scalp atraumatic and moist mucous membranes Eyes PERRL and EOMs intact bilaterally Neck supple Chest Wall inspection of chest normal Resp normal respiratory effort and clear to auscultation bilaterally Auscultation: Negative for rales, rhonchi or wheezes Cardio regular rate, regular rhythm and no murmurs GI normal to inspection, nondistended, normoactive bowel sounds GI Narrative: Mild tenderness to suprapubic region. Palpation: soft; Negative for guarding or rebound tenderness present Back/Spine no CVA tenderness Extremity normal to inspection General Extremety ED: Negative for edema or tenderness General Extremity: Negative for edema Neuro CN's II-XII intact bilaterally and no sensory deficits noted Sensorium / Orientation: alert Motor Exam: strength 5/5 throughout Psych mental status grossly normal Skin Skin Narrative: Scabbed over lesions on the inner left leg MDM MDM MDM Narrative Medical decision making narrative: Patient presents to the ED for suprapubic discomfort, dysuria as well as achiness of her lower extremities. Her symptoms have been going over the past month. She has been receiving treatment for both of these issues. Patient's lab work did not reveal a high white blood cell count. She is not anemic. Her sodium is mildly low but no other significant acute electrolyte dis turbance. Urine did have positive bacteria as well as leukocyte esterase. Since she is symptomatic we will treat this with antibiotics. Urine culture will be sent. Patient is very happy with this. We will have her follow-up with her PCP. Return precautions are reviewed. She understands and is agreeable this plan. Discharged home in stable condition. All questions were answered. Clinical impression: #1 urinary tract infection #2 bilateral leg discomfort. Lab Data Labs: Laboratory Results - last 24 hr 09/08/20 09/08/20 09/08/20 13:35 13:35 13:50 WBC 7.9 RBC 4.56 Hgb 13.2 Hct 41.1 MCV 90.1 MCH 28.9 MCHC 32.1 RDW Std Deviation 41.0 RDW Coeff of Sharron 12.5 Plt Count 178 MPV 10.5 Immature Gran % (Auto) 0.300 Neut % (Auto) 81.9 H Lymph % (Auto) 9.8 L Eagle % (Auto) 7.7 Eos % (Auto) 0.0 Baso % (Auto) 0.3 Absolute Neuts (auto) 6.5 Absolute Lymphs (auto) 0.78 L Nucleated RBC % 0 Sodium 133 L Potassium 3.9 Chloride 101 Carbon Dioxide 28.0 Anion Gap 4 L BUN 17 Creatinine 0.70 Estim Creat Clear Calc 46.65 Est GFR (MDRD) Af Amer 104 Est GFR (MDRD) Non-Af 86 BUN/Creatinine Ratio 24.1 H Glucose 126 H Calcium 9.5 Total Bilirubin 0.50 AST 15 ALT 18 Alkaline Phosphatase 64 Total Protein 7.3 Albumin 4.1 Globulin 3.2 Albumin/Globulin Ratio 1.3 Urine Color Yellow Urine Clarity Sl. Cloudy Urine pH 6.5 Ur Specific [place] 1.015 Urine Protein Negative Urine Glucose (UA) Normal Urine Ketones Negative Urine Occult Blood 10 H Urine Nitrite Negative Urine Bilirubin Negative Urine Urobilinogen Normal Ur Leukocyte Esterase 25 H Urine RBC 0 SEEN Urine WBC 0-5 SEEN Ur Squamous Epith Cells 0 SEEN Urine Bacteria RARE Urine Mucus 0 SEEN Discharge Plan Triage Chief Complaint: General Illness ED Provider: Con Rachel Dx/Rx/DC Orders Instructions: Urinary Tract Infections in Women Prescriptions: New cephalexin 500 mg capsule 500 mg PO BID 10 Days Qty: 20 RF: 0 No Action alendronate 70 MG tablet 70 mg PO Q7D@0700 RF: 0 losartan 25 MG tablet 25 mg PO DAILY RF: 0 aspirin 81 MG tablet,chewable 81 mg PO DAILY RF: 0 hydrochlorothiazide 25 MG tablet 25 mg PO DAILY RF: 0 oxybutynin chloride 5 MG tablet 5 mg PO BID RF: 0 uukhssvo-ohr-YJ-lycopen-lutein [Centrum Silver] 1 EACH tablet 1 ea PO DAILY RF: 0 cholecalciferol (vitamin D3) [Vitamin D3] 1,000 UNIT tablet 1,000 unit PO DAILY RF: 0 magnesium oxide 400 MG tablet 400 mg PO BIDCM Qty: 14 RF: 0 polyethylene glycol 3350 17 GM packet 17 gm PO DAILY Qty: 30 RF: 0 potassium chloride 20 MEQ tablet 40 meq PO DAILY Qty: 30 RF: 0 famciclovir 500 mg Tablet 500 mg PO Q8H RF: 0 diltiazem HCl 180 mg capsule,extended release 24 hr 360 mg PO DAILY RF: 0 fexofenadine 180 mg Tablet 180 mg PO DAILY RF: 0 omeprazole 40 mg Capsule,Delayed Release(Dr/Ec) 40 mg PO DAILY RF: 0 lorazepam 0.5 mg tablet 0.5 mg PO DAILY RF: 0 Primary Care Provider: Femi Baeza Referrals: Femi Baeza MD [Primary Care Provider] - 3-5 Days if not improving Disposition Disposition: Home, Self Care Discharge Date/Time: 09/08/20 15:37
[2020-09-08 15:36] VITALS: BP 142/73; PULSE 61; RESP 16; O2SAT 97
== END 2020-09-08 15:37 | disposition home or self-care (01) ==
PROVIDERS: Emergency Provider Emergency Medicine; PCP Internal Medicine
DX: N39.0 Urinary tract infection, site not specified (principal); I10 Essential (primary) hypertension; K21.9 Gastro-esophageal reflux disease without esophagitis; Z79.899 Other long term (current) drug therapy; Z87.891 Personal history of nicotine dependence; Z85.528 Personal history of other malignant neoplasm of kidney
CPT/HCPCS: 36415; 80053; 81001; 85025; 87086; 87088; 99284

== ENCOUNTER 2021-06-01 15:38 | Emergency (ER) | payer MEDICARE, SELFPAY ==
[2021-06-01 15:39] VITALS: BP 159/81; PULSE 60; RESP 14; TEMP 36.2; O2SAT 98; BMI 23.8
[2021-06-01 17:32] LABS: Anion Gap 5 (5-15); BUN 21 mg/dL (7-18); BUN/Creat Ratio 25.1 RATIO (10-20); Calcium,Total 10.6 mg/dL (8.5-10.1); Chloride 103 mmol/L (98-107); Creatinine, Serum 0.84 mg/dL (0.55-1.02); EST Glomerular Filtration Rate 70 mL/min (>60); Est Glom Filt Rate - Afr Amer 85 mL/min (>60); Estimated Creatinine Clearance 49.97 ml/min; Glucose 102 mg/dL (74-106); Potassium 4.4 mmol/L (3.5-5.1); Sodium Level 136 mmol/L (136-145)
[2021-06-01 17:38] VITALS: BP 129/78; PULSE 66; RESP 16; O2SAT 98
[2021-06-01 17:44] LABS: Absolute Lymphocyte Count 1.26 X10^3/uL (0.83-4.51); Absolute Neutrophil Count 5.3 X10^3/uL (2.0-7.7); Basophil# 0.06 X10^3/uL; Basophil% 0.8 % (0-1); Eosinophil# 0.13 X10^3/uL; Eosinophils% 1.7 % (0-5); Hematocrit 43.6 % (37-47); Hemoglobin 13.8 g/dL (12.0-15.0); Lymphocyte # 1.26 X10^3/ul (0.83-4.51); Lymphocyte % 16.9 % (19-41); Mean Corp Hgb Conc 31.7 g/dL (32-36); Mean Corpuscular Hgb 28.8 pg (27.0-32.0); Mean Corpuscular Volume 90.8 fL (81-99); Mean Platelet Vol. 10.9 fl (6.2-12.0); Monocyte# 0.63 X10^3/uL; Monocyte% 8.5 % (0-10); NRBC Flagged by Analyzer 0 % (0-5); Neutrophil # 5.34 X10^3/uL (2.7-7.7); Neutrophil % 71.7 % (47-70); Platelet Count 201 K/mm3 (150-450); RBC Distribution Width CV 12.3 % (11.6-14.6); RBC Distribution Width SD 41.1 fl (35.1-43.9); White Blood Count 7.5 K/mm3 (4.4-11.0)
--- NOTE | 2021-06-01 18:07 | EX.ED.DYSGE1 ---
HPI <Dr. Monse Cast MD - Last Filed: 06/01/21 23:03> History of Present Illness Chief Complaint: Abd Pain <RAMON CAMPBELL - Last Filed: 06/01/21 19:16> History of Present Illness Informant: patient Onset/Context/Timing Onset: Weeks (2) Narrative Narrative: Patient sent from urgent care for concerns of urinary frequency, urgency, dysuria, and foul-smelling urine for 4 weeks. Patient also reports chills for the past few days. Patient denies fever, nausea, vomiting, hematuria, chest pain, shortness of breath. Patient states that provider at urgent care was also concerned for lump in my belly. Prior similar symptoms: Yes Recent Illness/Hospitalization: No PFSH <Dr. Monse Cast MD - Last Filed: 06/01/21 23:03> [facility] Medical History (Updated 06/01/21 @ 19:[address] Monse Cast MD) Bladder prolapse GERD (gastroesophageal reflux disease) HTN (hypertension) Hx of renal cell carcinoma Hypoglycemia Lumbar radiculopathy Osteoporosis Scoliosis Home Medications alendronate 70 mg PO Q7D@0700 12/26/15 [History Last Taken Unknown] aspirin 81 mg PO DAILY 12/26/15 [History Last Taken Unknown] cholecalciferol (vitamin D3) [Vitamin D3] 1,000 unit PO DAILY 12/26/15 [History Last Taken Unknown] hydrochlorothiazide 25 mg PO DAILY 12/26/15 [History Last Taken Unknown] losartan 25 mg PO DAILY 12/26/15 [History Last Taken Unknown] hwvxkpix-owd-XS-lycopen-lutein [Centrum Silver] 1 ea PO DAILY 12/26/15 [History Last Taken Unknown] oxybutynin chloride 5 mg PO BID 12/26/15 [History Last Taken Unknown] magnesium oxide 400 mg PO BIDCM #14 tab 06/18/17 [Rx Last Taken Unknown] polyethylene glycol 3350 17 gm PO DAILY #30 packet 06/18/17 [Rx Last Taken Unknown] potassium chloride 40 meq PO DAILY #30 tab 06/18/17 [Rx Last Taken Unknown] cephalexin 500 mg PO BID 10 Days #20 cap 09/08/20 [Rx Last Taken Unknown] diltiazem HCl 360 mg PO DAILY 09/08/20 [History Last Taken Unknown] famciclovir 500 mg PO Q8H 09/08/20 [History Last Taken Unknown] fexofenadine 180 mg PO DAILY 09/08/20 [History Last Taken Unknown] lorazepam 0.5 mg PO DAILY 09/08/20 [History Last Taken Unknown] omeprazole 40 mg PO DAILY 09/08/20 [History Last Taken Unknown] cephalexin 500 mg PO Q12 #7 cap 06/01/21 [Rx Last Taken Unknown] Allergy/AdvReac Type Severity Reaction Status Date / Time lisinopril Allergy Swelling Verified 06/01/21 15:42 esomeprazole [From Nexium] AdvReac Nausea/Vom/ Verified 06/01/21 15:41 Diarrhea Surgical History (Updated 06/01/21 @ 18:13 by RAMON CAMPBELL) H/O partial nephrectomy Social History Smoking Status: Former smoker <RAMON CAMPBELL - Last Filed: 06/01/21 19:16> ROS ED Constitutional Constitutional ED: Reports chills and subjective; Denies fever(s), sweats or weight loss Eyes Eyes: Denies blurry vision, change in vision or diplopia ENT ENT ED: Denies ear pain or sore throat Cardiovascular Cardiovascular: Denies chest pain or palpitations Respiratory/Chest Respiratory/Chest: Denies cough or dyspnea Gastrointestinal Gastrointestinal: Reports abdominal pain; Denies constipation, diarrhea, nausea or vomiting Genitourinary Genitourinary ED: Reports dysuria and urinary frequency; Denies hematuria Musculoskeletal Musculoskeletal: Denies arthralgias or myalgias Integumentary Denies rash Neurologic Neurologic: Denies headache(s) or weakness Endocrine Endocrinology: Denies polydipsia, polyphagia or polyuria EXAM <Dr. Monse Cast MD - Last Filed: 06/01/21 23:03> Physical Exam Const Vital Signs: 06/01/21 15:39 06/01/21 17:38 06/01/21 19:10 Temperature 97.2 F L Temperature Source Temporal Pulse Rate 60 66 66 Respiratory Rate 14 16 14 Blood Pressure 159/81 H 129/78 H 126/72 H Blood Pressure Mean 107 95 90 Pulse Ox 98 98 98 Oxygen Delivery Method Room Air Room Air Room Air 06/01/21 19:16 Temperature 98.4 F Temperature Source Pulse Rate 65 Respiratory Rate 16 Blood Pressure 136/78 H Blood Pressure Mean Pulse Ox 98 Oxygen Delivery Method <RAMON CAMPBELL - Last Filed: 06/01/21 19:16> Physical Exam Const Vital Signs: 06/01/21 15:39 06/01/21 17:38 06/01/21 19:10 Temperature 97.2 F L Temperature Source Temporal Pulse Rate 60 66 66 Respiratory Rate 14 16 14 Blood Pressure 159/81 H 129/78 H 126/72 H Blood Pressure Mean 107 95 90 Pulse Ox 98 98 98 Oxygen Delivery Method Room Air Room Air Room Air 06/01/21 19:16 Temperature 98.4 F Temperature Source Pulse Rate 65 Respiratory Rate 16 Blood Pressure 136/78 H Blood Pressure Mean Pulse Ox 98 Oxygen Delivery Method Positive well nourished HEENT Reports dry mucous membranes Negative for trauma or tenderness Mouth ED: Yes dry mucous membranes Mouth: dry mucous membranes Eyes PERRL and EOMs intact bilaterally Neck no lymphadenopathy and supple Chest Wall inspection of chest normal and palpation of chest normal Resp normal respiratory effort and clear to auscultation bilaterally Cardio regular rate and regular rhythm Rate: other Heart Sounds: murmur GI normal to inspection, nondistended, normoactive bowel sounds Palpation: soft Bladder / Kidney Exam: bladder abnormal to palpation tender Back/Spine no CVA tenderness Extremity normal to inspection General Extremety ED: Negative for edema General Extremity: Negative for edema Neuro oriented x3 Sensorium / Orientation: alert Motor Exam: strength 5/5 throughout Psych mental status grossly normal Skin no rashes or lesions noted [facility] <Dr. Monse Cast MD - Last Filed: 06/01/21 23:03> [facility] Lab Data Labs: Laboratory Results - last 24 hr 06/01/21 06/01/21 06/01/21 16:50 17:12 17:12 WBC 7.5 RBC 4.80 Hgb 13.8 Hct 43.6 MCV 90.8 MCH 28.8 MCHC 31.7 L RDW Std Deviation 41.1 RDW Coeff of Sharron 12.3 Plt Count 201 MPV 10.9 Immature Gran % (Auto) 0.400 Neut % (Auto) 71.7 H Lymph % (Auto) 16.9 L Hood % (Auto) 8.5 Eos % (Auto) 1.7 Baso % (Auto) 0.8 Absolute Neuts (auto) 5.3 Absolute Lymphs (auto) 1.26 Nucleated RBC % 0 Sodium 136 Potassium 4.4 Chloride 103 Carbon Dioxide 28.0 Anion Gap 5 BUN 21 H Creatinine 0.84 Estim Creat Clear Calc 49.97 Est GFR (MDRD) Af Amer 85 Est GFR (MDRD) Non-Af 70 BUN/Creatinine Ratio 25.1 H Glucose 102 Calcium 10.6 H Urine Color Yellow Urine Clarity Sl. Cloudy Urine pH 7.0 Ur Specific [place] 1.010 Urine Protein Negative Urine Glucose (UA) Normal Urine Ketones Negative Urine Occult Blood Negative Urine Nitrite Negative Urine Bilirubin Negative Urine Urobilinogen Normal Ur Leukocyte Esterase Negative Urine RBC 0 SEEN Urine WBC 0 SEEN Ur Squamous Epith Cells 0-5 SEEN Amorphous Sediment 1+ PHOS Urine Bacteria 0 SEEN Urine Mucus 0 SEEN Treatment and Re-Evaluation Narrative: Patient seen and evaluated with PHARMACOMETRICIAN student. I personally interviewed and examined the patient. I was involved in all aspects of patient's orders, interpretation of results, and treatment. Patient presents from outside office for evaluation of possible UTI and abdominal pain. She reports history of frequent UTIs that will often show up on culture but not initial urinalysis. She reports dysuria for the past several weeks with recent chills. At the office today they noted a lump on her abdomen and felt she should be evaluated. Patient sitting upright in bed no acute distress. She is nontoxic-appearing. Head and neck examination unremarkable. Lung sounds are clear. Abdomen is soft with mild tenderness in the suprapubic region. It does appear that she has muscle weakness in the lower abdomen. There is no focal hernia at this time. CBC and chemistry studies unremarkable. Urinalysis is normal. With the patient's history a urine culture will be sent. She will be covered with Keflex for 3 days until the culture is returned. Patient is comfortable with this plan. Return instructions are provided. <RAMON CAMPBELL - Last Filed: 06/01/21 19:16> MDM MDM Narrative Medical decision making narrative: CBC and BMP obtained in triage. 500 mL normal saline bolus ordered. Urinalysis also ordered. Lab Data Labs: Laboratory Results - last 24 hr 06/01/21 06/01/21 06/01/21 16:50 17:12 17:12 WBC 7.5 RBC 4.80 Hgb 13.8 Hct 43.6 MCV 90.8 MCH 28.8 MCHC 31.7 L RDW Std Deviation 41.1 RDW Coeff of Sharron 12.3 Plt Count 201 MPV 10.9 Immature Gran % (Auto) 0.400 Neut % (Auto) 71.7 H Lymph % (Auto) 16.9 L [place] % (Auto) 8.5 Eos % (Auto) 1.7 Baso % (Auto) 0.8 Absolute Neuts (auto) 5.3 Absolute Lymphs (auto) 1.26 Nucleated RBC % 0 Sodium 136 Potassium 4.4 Chloride 103 Carbon Dioxide 28.0 Anion Gap 5 BUN 21 H Creatinine 0.84 Estim Creat Clear Calc 49.97 Est GFR (MDRD) Af Amer 85 Est GFR (MDRD) Non-Af 70 BUN/Creatinine Ratio 25.1 H Glucose 102 Calcium 10.6 H Urine Color Yellow Urine Clarity Sl. Cloudy Urine pH 7.0 Ur Specific [place] 1.010 Urine Protein Negative Urine Glucose (UA) Normal Urine Ketones Negative Urine Occult Blood Negative Urine Nitrite Negative Urine Bilirubin Negative Urine Urobilinogen Normal Ur Leukocyte Esterase Negative Urine RBC 0 SEEN Urine WBC 0 SEEN Ur Squamous Epith Cells 0-5 SEEN Amorphous Sediment 1+ PHOS Urine Bacteria 0 SEEN Urine Mucus 0 SEEN Treatment and Re-Evaluation Narrative: Blood work and urinalysis reviewed. Blood work unremarkable, and urinalysis negative for infection. Patient states she has had history of negative urinalysis that later on culture revealed infection. Urine will be sent for culture, and written for 3-day prescription of cephalexin 500 mg. Patient aware that she will be notified if further antibiotics are indicated. Instruction given to increase fluids at home, and follow-up with primary care physician. Discharge Plan Triage Chief Complaint: Abd Pain ED Provider: Monse Cast Dx/Rx/DC Orders Clinical Impression: Dysuria Instructions: ED Dysuria, Uncertain Cause (Adult) Prescriptions: New cephalexin 500 mg capsule 500 mg PO Q12 Qty: 7 RF: 0 No Action alendronate 70 MG tablet 70 mg PO Q7D@0700 RF: 0 losartan 25 MG tablet 25 mg PO DAILY RF: 0 aspirin 81 MG tablet,chewable 81 mg PO DAILY RF: 0 hydrochlorothiazide 25 MG tablet 25 mg PO DAILY RF: 0 oxybutynin chloride 5 MG tablet 5 mg PO BID RF: 0 heviiaxg-rux-VL-lycopen-lutein [Centrum Silver] 1 EACH tablet 1 ea PO DAILY RF: 0 cholecalciferol (vitamin D3) [Vitamin D3] 1,000 UNIT tablet 1,000 unit PO DAILY RF: 0 magnesium oxide 400 MG tablet 400 mg PO BIDCM Qty: 14 RF: 0 polyethylene glycol 3350 17 GM packet 17 gm PO DAILY Qty: 30 RF: 0 potassium chloride 20 MEQ tablet 40 meq PO DAILY Qty: 30 RF: 0 famciclovir 500 mg Tablet 500 mg PO Q8H RF: 0 diltiazem HCl 180 mg capsule,extended release 24 hr 360 mg PO DAILY RF: 0 fexofenadine 180 mg Tablet 180 mg PO DAILY RF: 0 omeprazole 40 mg Capsule,Delayed Release(Dr/Ec) 40 mg PO DAILY RF: 0 lorazepam 0.5 mg tablet 0.5 mg PO DAILY RF: 0 cephalexin 500 mg capsule 500 mg PO BID 10 Days Qty: 20 RF: 0 Primary Care Provider: Femi Baeza Referrals: Femi Baeza MD [Primary Care Provider] - 1 Week Activity Restrictions/Additional Instructions: As discussed, you were treated with 3 days of antibiotics. Urine culture is pending. This may show that you require further antibiotics. You will be contacted if that is the case. Please follow-up with your primary care physician. Disposition Disposition: Home, Self Care Discharge Date/Time: 06/01/21 19:23
[2021-06-01 18:10] LABS: Bacteria 0 SEEN /hpf (None Seen); Color, Urine Yellow (Yellow); Glucose, Dipstick Normal (Normal); Ketone-Dipstick Negative (Negative); Leukocyte Esterase-Dipstick Negative /ul (Negative); Mucous, Urine 0 SEEN /hpf (<or=2+); Nitrite-Dipstick Negative (Negative); Occult Blood-Urine Negative /ul (Negative); Protein-Dipstick Negative (Negative); Red Blood Cells-Urine 0 SEEN /hpf (0-5); Urine Bilirubin Dipstick Negative (Negative); Urine Clarity Sl. Cloudy (Clear); Urine Urobilinogen Normal (Normal); White Blood Cells 0 SEEN /hpf (0-5)
[2021-06-01 18:22] LABS: Squamous Epithelial Cells - UA 0-5 SEEN /hpf (5-10)
[2021-06-01 18:23] LABS: Amorphous Sediment 1+ PHOS
[2021-06-01 19:10] VITALS: BP 126/72; PULSE 66; RESP 14; O2SAT 98
[2021-06-01 19:16] VITALS: BP 136/78; PULSE 65; RESP 16; TEMP 36.9; O2SAT 98
[2021-06-01] MEDS: Cephalexin 250 MG Capsule 500 MG PO (19:21)
== END 2021-06-01 19:23 | disposition home or self-care (01) ==
PROVIDERS: Emergency Provider Emergency Medicine; PCP Internal Medicine; Visit Provider Emergency Medicine
DX: R10.9 Unspecified abdominal pain (principal); R39.15 Urgency of urination; R30.0 Dysuria; R82.998 Other abnormal findings in urine; I10 Essential (primary) hypertension; R35.0 Frequency of micturition; Z87.891 Personal history of nicotine dependence; M81.0 Age-related osteoporosis without current pathological fracture; K21.9 Gastro-esophageal reflux disease without esophagitis; Z85.528 Personal history of other malignant neoplasm of kidney
CPT/HCPCS: 80048; 81001; 85025; 87086; 96360; 99284; J7040; A4216

== ENCOUNTER → 2021-07-07 | Outpatient (CLI) | payer MEDICARE, SELFPAY ==
--- NOTE | 2021-07-07 16:00 | CT_ITS ---
STUDY: CT ABDOMEN AND PELVIS WITH AND WITHOUT CONTRAST REASON FOR EXAM: Female, 76 years old. Renal cancer. RADIATION DOSAGE (If Supplied By Facility): CTDIvol = ( 11.81 ) mGy, DLP = ( 1632.00 ) mGycm TECHNIQUE: Transaxial images were obtained from the dome of the diaphragm to the symphysis pubis without oral contrast. IV 100mL Isovue-300 was administered. Sagittal and coronal images were reconstructed. Individualized dose optimization techniques were used for this CT. COMPARISON: 06/16/2017. FINDINGS: The visualized lung bases are unremarkable. The visualized portions of the heart are within normal limits. There is a large retrocardiac hiatal hernia extending into the left lung base. Normal liver. There is non-visualization of the gallbladder, which may be secondary to either contraction or a prior cholecystectomy. Normal spleen. Normal pancreas. Normal bilateral adrenal glands. The right kidney is of normal size and cortical thickness. Off the lateral aspect of the upper pole, there is a 1.6 x 1.5 x 1.4 cm mass. This appears low in attenuation on contrast imaging with peripheral enhancement with mild enhancement with internal septations on the postcontrast images. This becomes isoechoic to the renal cortex on delayed imaging. Findings suggest renal cell carcinoma. This was noted on the most recent examination of 06/16/2017 where it measures 1.1 cm in diameter. There is no involvement of the right renal vein. Normal right ureter Normal left kidney. Normal left ureter. The majority of the stomach lies in the chest posterior to the heart Normal small intestine. The colon is distended with air and feces. There is no mass or obstruction. There is non-visualization of the appendix. Tortuous atherosclerotic aorta without aneurysm or dissection. Normal inferior vena cava. Normal retroperitoneum. Normal urinary bladder. Unremarkable uterus. There is no adnexal mass. No pelvic lymphadenopathy. No free air or free fluid is seen within the cavity. Normal abdominal wall. There are degenerative changes in lumbar levoscoliosis is of the thoracolumbar spine is unchanged from previous examinations. CT/CT Abd/Pelvis W/WO Contrast IMPRESSION: 1. Interval increase in size of the right renal mass when compared with study of 2018. This has the appearance of a renal cell carcinoma. 2. No evidence of metastatic disease. 3. Marked colonic feces suggesting constipation. 4. No other major interval change. Electronically Signed: Alexey Zhang DO at 21:53 EDT Reading Location ID and State: [facility] / [place] Tel [phone], Service support ,
[2021-07-07 16:01] LABS: CREATININE FINGERSTICK 0.8 mg/dL (0.55-1.02); EGFR FINGERSTICK > 60.0000 mL/min (>60)
== END | disposition home or self-care (01) ==
LOC: CT 15:44
PROVIDERS: PCP Internal Medicine; Referring Provider Urology; Visit Provider Urology
DX: D41.00 Neoplasm of uncertain behavior of unspecified kidney (principal)
CPT/HCPCS: 74178; Q9967

== ENCOUNTER → 2021-11-13 | Outpatient (CLI) | payer MEDICARE, SELFPAY | END | disposition home or self-care (01) | LOC: LABSPEC 16:25 | PROVIDERS: PCP Internal Medicine; Referring Provider Urology; Visit Provider Urology | DX: R31.9 Hematuria, unspecified (principal) | CPT/HCPCS: 87086; 87088 ==

== ENCOUNTER 2021-11-18 15:53 | Emergency (ER) | payer MEDICARE, SELFPAY ==
[2021-11-18 15:53] VITALS: BP 164/74; PULSE 69; RESP 16; TEMP 37.3; O2SAT 97; BMI 24.7
--- NOTE | 2021-11-18 16:35 | EKG12_ITS ---
Test Reason : FATIGUE Blood Pressure : / mmHG Vent. Rate : 058 BPM Atrial Rate : 058 BPM P-R Int : 182 ms QRS Dur : 082 ms QT Int : 410 ms P-R-T Axes : 041 -07 046 degrees QTc Int : 402 ms Sinus bradycardia Possible Left atrial enlargement Borderline ECG Confirmed by ALCIRA SMITH, RICHARD ([id number]), scientific publications editor JESSIE WALSH ([id number]) on 11/20/2021 10:41:27 AM Referred By: Confirmed By:RICHARD ELI MD
--- NOTE | 2021-11-18 16:35 | CT_ITS ---
STUDY: CT ABDOMEN AND PELVIS WITH CONTRAST REASON FOR EXAM: Female, 76 years old. WEAKNESS/BILAT LEG CRAMPING FINISHED ATB X1 DAY AGO FOR KIDNEY INFECTION HX-RENAL CELL CARCINOMA W/ PARTIAL LEFT NEPHRECTOMY RADIATION DOSAGE (If Supplied By Facility): CTDIvol = ( 12.02 ) mGy, DLP = ( 599.54 ) mGycm TECHNIQUE: Transaxial images were obtained from the dome of the diaphragm to the symphysis pubis without oral contrast. IV 75mL Isovue-300 was administered. Sagittal and coronal images were reconstructed. Individualized dose optimization techniques were used for this CT. COMPARISON: 07/07/2021 FINDINGS: The visualized lung bases are unremarkable. The visualized portions of the heart are within normal limits. Normal liver. Gallbladder is absent. Expected biliary distention. Normal spleen. Normal pancreas. Normal bilateral adrenal glands. Complex cystic lesion of the anterior right kidney currently measures 1.4 x 1.6 cm (previously measured up to 1.6 cm). There is also an enhancing nodule of the lateral right renal cortex on image 32 of series 2 measuring 7.1 mm, stable. Bilateral renal veins are patent. Cortical scarring of the superior left kidney, possibly related to prior partial nephrectomy. No retroperitoneal adenopathy. There is a large hiatal hernia composed mostly of the fundus of the stomach. No dilated loops of small bowel. Moderate fecal retention throughout the colon without colon wall thickening. The appendix is visualized and appears normal. There is diffuse atherosclerotic calcification of the abdominal aorta, without a demonstrated aneurysm. Normal inferior vena cava. Normal retroperitoneum. Normal urinary bladder. Normal abdominal wall. Levoscoliosis with degenerative changes of lumbar spine. CT/Abdomen/Pelvis W IV Cont ONLY IMPRESSION: 1. No hydronephrosis or acute inflammatory process. 2. Partial nephrectomy of the left kidney. No focal fluid collection or metastatic disease seen. 3. Complex 1.6 cm cyst in the anterior right kidney remain stable since July 2021 (reportedly larger since 2017). Stable (since July 2021) solid nodule of the right lateral renal cortex measuring 7 mm. Electronically Signed: Loyd Tyler MD ([place]) at 18:08 EDT ,
--- NOTE | 2021-11-18 16:37 | EX.ED.DYSGE1 ---
HPI History of Present Illness Chief Complaint: Fatigue Informant: patient Narrative Narrative: Patient presents with just sense of overall tiredness. She states her energy level is low. But she has no fevers chills nausea or vomiting. She is eating and drinking well. Moving bowels normally. She urinates about every 2 hours but this is not new. This is really been going on since she had kidney cancer in 2011. She had removal of a couple masses on the left kidney but no chemo or radiation. She evidently has recurrence of kidney masses now on the right. She had CT earlier this year and she is set to have a CT in April 2022. But because she has been having more UTIs and urinary symptoms they move the CT up to this Saturday. She was treated with Augmentin and then Cipro for recent UTI. Her culture showed 1000-10,000 mixed bacteria. The antibiotics really did not change any of her symptoms. Just she has not been losing weight. Nothing really makes better or worse. [facility] Medical History Bladder prolapse GERD (gastroesophageal reflux disease) HTN (hypertension) Hx of renal cell carcinoma Hypoglycemia Lumbar radiculopathy Osteoporosis Scoliosis Home Medications alendronate 70 mg tablet 70 mg PO Q7D@0700 12/26/15 [History Last Taken Unknown] aspirin 81 mg chewable tablet 81 mg PO DAILY 12/26/15 [History Last Taken Unknown] cholecalciferol (vitamin D3) 25 mcg (1,000 unit) tablet (Vitamin D3) 1,000 unit PO DAILY 12/26/15 [History Last Taken Unknown] hydrochlorothiazide 25 mg tablet 25 mg PO DAILY 12/26/15 [History Last Taken Unknown] losartan 25 mg tablet 25 mg PO DAILY 12/26/15 [History Last Taken Unknown] qtsbmsfd-pfk-dtawx acid 0.4 mg-lycopene 300 mcg-lutein 250 mcg tablet (Centrum Silver) 1 ea PO DAILY 12/26/15 [History Last Taken Unknown] oxybutynin chloride 5 mg tablet 5 mg PO BID 12/26/15 [History Last Taken Unknown] magnesium oxide 400 mg (241.3 mg magnesium) tablet 400 mg PO BIDCM #14 tabs 06/18/17 [Rx Last Taken Unknown] polyethylene glycol 3350 17 gram oral powder packet 17 gm PO DAILY #30 packets 06/18/17 [Rx Last Taken Unknown] potassium chloride 20 mEq tablet,extended release(part/cryst) 40 meq PO DAILY #30 tabs 06/18/17 [Rx Last Taken Unknown] cephalexin 500 mg capsule 500 mg PO BID 10 days #20 caps 09/08/20 [Rx Last Taken Unknown] diltiazem HCl 180 mg capsule,24 hr,extended release 360 mg PO DAILY 09/08/20 [History Last Taken Unknown] famciclovir 500 mg tablet 500 mg PO Q8H 09/08/20 [History Last Taken Unknown] fexofenadine 180 mg tablet 180 mg PO DAILY 09/08/20 [History Last Taken Unknown] lorazepam 0.5 mg tablet 0.5 mg PO DAILY 09/08/20 [History Last Taken Unknown] omeprazole 40 mg capsule,delayed release 40 mg PO DAILY 09/08/20 [History Last Taken Unknown] cephalexin 500 mg capsule 500 mg PO Q12 #7 caps 06/01/21 [Rx Last Taken Unknown] Allergy/AdvReac Type Severity Reaction Status Date / Time lisinopril Allergy Swelling Verified 11/18/21 15:56 esomeprazole [From Nexium] AdvReac Nausea/Vom/ Verified 11/18/21 15:56 Diarrhea Surgical History H/O partial nephrectomy Social History Smoking Status: Former smoker ROS ROS ED Constitutional Constitutional ED: Denies chills, fever(s), sweats or weight loss Eyes Eyes: Denies change in vision ENT ENT ED: Denies rhinorrhea or sore throat Cardiovascular Cardiovascular: Denies chest pain or palpitations Respiratory/Chest Respiratory/Chest: Denies cough, dyspnea or dyspnea on exertion Gastrointestinal Gastrointestinal: Reports abdominal pain and other Details: He has a lower abdominal pelvic pain but mostly with urination. ; Denies constipation, diarrhea, melena, nausea or vomiting Genitourinary Genitourinary ED: Reports dysuria and urinary frequency; Denies hematuria Musculoskeletal Musculoskeletal: Reports other Details: Patient is having some soreness of her lower back and buttock. She states sometimes her legs ache but it is diffuse. She also notes swelling in the ankles on occasion but is not there now. She states mostly her legs seem tired like the rest of her. Integumentary Denies Abrasions or rash Neurologic Neurologic: Denies headache(s), paresthesias or weakness Endocrine Endocrinology: Reports polyuria; Denies polydipsia Hematologic/Lymphatic Hematologic/Lymphatic: Denies easy bleeding or easy bruising Allergic/Immunologic Allergic/Immunologic ED: Denies urticaria EXAM Physical Exam Const Vital Signs: 11/18/21 15:53 11/18/21 16:56 11/18/21 17:14 Temperature 99.1 F 99.1 F Temperature Source Temporal Temporal Pulse Rate 69 69 56 L Respiratory Rate 16 16 17 Respiratory Effort Respiratory Pattern Blood Pressure 164/74 H 164/74 H 160/87 H Blood Pressure Mean 104 104 111 Pulse Ox 97 97 95 Oxygen Delivery Method Room Air Room Air Room Air 11/18/21 17:19 Temperature Temperature Source Pulse Rate Respiratory Rate Respiratory Effort Normal Non-Labored Respiratory Pattern Normal Blood Pressure Blood Pressure Mean Pulse Ox Oxygen Delivery Method Positive well nourished and well developed General Appearance ED: well developed HEENT HEENT Narrative: Mildly dry mucous member Eyes General Eye ED: Negative for scleral icterus Neck supple Resp normal respiratory effort and clear to auscultation bilaterally Auscultation: Negative for rales, rhonchi or wheezes Cardio regular rate and regular rhythm; Negative for no murmurs Rate: other Other Details: Patient does have a prominent about 3 out of 6 systolic murmur. She states this is not new. GI normal to inspection, nondistended, normoactive bowel sounds and non-tender GI Narrative: Patient has some lower abdominal soreness at times but her exam is quite benign. Palpation: soft Narrative: No CVA tenderness. Back/Spine no CVA tenderness Extremity normal to inspection Neuro oriented x3 Sensorium / Orientation: alert Psych mental status grossly normal Skin no rashes or lesions noted MDM MDM MDM Narrative Medical decision making narrative: After I got old EKG, there was a change therefore troponin was added. I am not able to bring up old EKGs because of a issue with the computer system. Patient CBC is normal including white count hemoglobin and platelets. Electrolytes are overall unremarkable. There is a slight rise in the BUN to creatinine ratio. She can drink some more fluids. Liver function tests are unremarkable. Troponin is negative. Urine does not show signs of infection. Troponin magnesium are normal. CT scan shows no interval change since July. I talked to the patient. Her overall tiredness and lethargy may be from recent infection and could even be secondary to antibiotics. I do not think she needs to come in the hospital. She is happy with this plan. She will follow-up with her primary physician and urologist. Lab Data Attestation: I reviewed the patient's lab results. Labs: Laboratory Results - last 24 hr 11/18/21 11/18/21 11/18/21 17:15 17:15 17:17 WBC 6.9 RBC 4.80 Hgb 13.9 Hct 43.0 MCV 89.6 MCH 29.0 MCHC 32.3 RDW Std Deviation 41.7 RDW Coeff of Sharron 12.7 Plt Count 207 MPV 10.4 Immature Gran % (Auto) 0.300 Neut % (Auto) 73.0 H Lymph % (Auto) 15.4 L [place] % (Auto) 10.0 Eos % (Auto) 0.7 Baso % (Auto) 0.6 Absolute Neuts (auto) 5.1 Absolute Lymphs (auto) 1.07 Nucleated RBC % 0 Sodium 137 Potassium 4.0 Chloride 102 Carbon Dioxide 27.0 Anion Gap 8 BUN 21 H Creatinine 0.78 Estim Creat Clear Calc 41.97 Est GFR (MDRD) Af Amer 93 Est GFR (MDRD) Non-Af 77 BUN/Creatinine Ratio 27.0 H Glucose 117 H Calcium 10.7 H Magnesium Total Bilirubin 0.30 AST 13 L ALT 18 Alkaline Phosphatase 71 Troponin I High Sens Total Protein 7.9 Albumin 4.2 Globulin 3.7 Albumin/Globulin Ratio 1.1 Urine Color Straw Urine Clarity Clear Urine pH 6.5 Ur Specific [place] 1.010 Urine Protein Negative Urine Glucose (UA) Normal Urine Ketones Negative Urine Occult Blood 25 H Urine Nitrite Negative Urine Bilirubin Negative Urine Urobilinogen Normal Ur Leukocyte Esterase Negative Urine RBC 0-5 SEEN Urine WBC 0-5 SEEN Ur Squamous Epith Cells 0-5 SEEN Urine Bacteria RARE Urine Mucus 0 SEEN 11/18/21 18:20 WBC RBC Hgb Hct MCV MCH MCHC RDW Std Deviation RDW Coeff of Sharron Plt Count MPV Immature Gran % (Auto) Neut % (Auto) Lymph % (Auto) [place] % (Auto) Eos % (Auto) Baso % (Auto) Absolute Neuts (auto) Absolute Lymphs (auto) Nucleated RBC % Sodium Potassium Chloride Carbon Dioxide Anion Gap BUN Creatinine Estim Creat Clear Calc Est GFR (MDRD) Af Amer Est GFR (MDRD) Non-Af BUN/Creatinine Ratio Glucose Calcium Magnesium 1.9 Total Bilirubin AST ALT Alkaline Phosphatase Troponin I High Sens 8 Total Protein Albumin Globulin Albumin/Globulin Ratio Urine Color Urine Clarity Urine pH Ur Specific [place] Urine Protein Urine Glucose (UA) Urine Ketones Urine Occult Blood Urine Nitrite Urine Bilirubin Urine Urobilinogen Ur Leukocyte Esterase Urine RBC Urine WBC Ur Squamous Epith Cells Urine Bacteria Urine Mucus Radiography Diagnostic Testing: Clinical Impression(s) from Imaging Studies Abdomen/Pelvis CT 11/18/21 16:35 IMPRESSION: 1. No hydronephrosis or acute inflammatory process. 2. Partial nephrectomy of the left kidney. No focal fluid collection or metastatic disease seen. 3. Complex 1.6 cm cyst in the anterior right kidney remain stable since July 2021 (reportedly larger since 2018). Stable (since July 2021) solid nodule of the right lateral renal cortex measuring 7 mm. Electronically Signed: Loyd Tyler MD ([place]) at 18:08 EDT , EKG Initial EKG: Comments: EKG done for generalized weakness and elderly female and read by me shows a sinus rhythm with mild bradycardic rate at 58. No ectopy. No acute ST elevation or depression that is new. There is some mild elevation in aVR which was seen. Complexes are slightly different in formation since 16 June 2017. MA interval, QRS duration and QTc is normal. Discharge Plan Triage Chief Complaint: Fatigue ED Provider: Martin Hector Dx/Rx/DC Orders Clinical Impression: Malaise, Urinary frequency Instructions: ED Weakness (Uncertain Cause) Prescriptions: No Action alendronate 70 MG tablet 70 mg PO Q7D@0700 losartan 25 MG tablet 25 mg PO DAILY aspirin 81 MG tablet,chewable 81 mg PO DAILY hydrochlorothiazide 25 MG tablet 25 mg PO DAILY oxybutynin chloride 5 MG tablet 5 mg PO BID [id number]-lutein [Centrum Silver] 1 EACH tablet 1 ea PO DAILY cholecalciferol (vitamin D3) [Vitamin D3] 1,000 UNIT tablet 1,000 unit PO DAILY magnesium oxide 400 MG tablet 400 mg PO BIDCM Qty: 14 0RF polyethylene glycol 3350 17 GM packet 17 gm PO DAILY Qty: 30 0RF potassium chloride 20 MEQ tablet 40 meq PO DAILY Qty: 30 0RF famciclovir 500 mg Tablet 500 mg PO Q8H diltiazem HCl 180 mg capsule,extended release 24 hr 360 mg PO DAILY fexofenadine 180 mg Tablet 180 mg PO DAILY omeprazole 40 mg Capsule,Delayed Release(Dr/Ec) 40 mg PO DAILY lorazepam 0.5 mg tablet 0.5 mg PO DAILY cephalexin 500 mg capsule 500 mg PO BID 10 Days Qty: 20 0RF cephalexin 500 mg capsule 500 mg PO Q12 Qty: 7 0RF Primary Care Provider: Femi Baeza Referrals: Peewee Negro MD [Med Staff - Active Staff] - Keep Valentino appointment Femi Baeza MD [Primary Care Provider] - As soon as possible Disposition Disposition: Home, Self Care
[2021-11-18 16:56] VITALS: BP 164/74; PULSE 69; RESP 16; TEMP 37.3; O2SAT 97
[2021-11-18 17:14] VITALS: BP 160/87; PULSE 56; RESP 17; O2SAT 95
[2021-11-18 17:21] LABS: Mucous, Urine 0 SEEN /hpf (<or=2+)
[2021-11-18 17:24] LABS: Absolute Lymphocyte Count 1.07 X10^3/uL (0.83-4.51); Absolute Neutrophil Count 5.1 X10^3/uL (2.0-7.7); Basophil# 0.04 X10^3/uL; Basophil% 0.6 % (0-1); Eosinophil# 0.05 X10^3/uL; Eosinophils% 0.7 % (0-5); Hemoglobin 13.9 g/dL (12.0-15.0); Lymphocyte # 1.07 X10^3/ul (0.83-4.51); Lymphocyte % 15.4 % (19-41); Mean Corp Hgb Conc 32.3 g/dL (32-36); Mean Corpuscular Volume 89.6 fL (81-99); Mean Platelet Vol. 10.4 fl (6.2-12.0); Monocyte# 0.69 X10^3/uL; NRBC Flagged by Analyzer 0 % (0-5); Neutrophil # 5.06 X10^3/uL (2.7-7.7); Platelet Count 207 K/mm3 (150-450); RBC Distribution Width CV 12.7 % (11.6-14.6); RBC Distribution Width SD 41.7 fl (35.1-43.9); White Blood Count 6.9 K/mm3 (4.4-11.0)
[2021-11-18 17:26] LABS: Color, Urine Straw (Yellow); Glucose, Dipstick Normal (Normal); Ketone-Dipstick Negative (Negative); Leukocyte Esterase-Dipstick Negative /ul (Negative); Nitrite-Dipstick Negative (Negative); Occult Blood-Urine 25 /ul (Negative); Protein-Dipstick Negative (Negative); Urine Bilirubin Dipstick Negative (Negative); Urine Clarity Clear (Clear); Urine Urobilinogen Normal (Normal); Urine pH 6.5 (5.0 - 8.0)
[2021-11-18 17:36] LABS: Red Blood Cells-Urine 0-5 SEEN /hpf (0-5); White Blood Cells 0-5 SEEN /hpf (0-5)
[2021-11-18 17:37] LABS: Bacteria RARE /hpf (None Seen); Squamous Epithelial Cells - UA 0-5 SEEN /hpf (5-10)
[2021-11-18 17:39] LABS: ALB/GLOB Ratio 1.1 RATIO (0.9-2.4); AST(SGOT) 13 U/L (15-37); Alanine Aminotransfer ALT/SGPT 18 U/L (13-56); Albumin, Serum 4.2 g/dL (3.2-5.0); Alkaline Phosphatase 71 U/L (45-117); Anion Gap 8 (5-15); BUN 21 mg/dL (7-18); Calcium,Total 10.7 mg/dL (8.5-10.1); Chloride 102 mmol/L (98-107); Creatinine, Serum 0.78 mg/dL (0.55-1.02); EST Glomerular Filtration Rate 77 mL/min (>60); Est Glom Filt Rate - Afr Amer 93 mL/min (>60); Estimated Creatinine Clearance 41.97 ml/min; Globulin 3.7 g/dL (2.2-4.2); Glucose 117 mg/dL (74-106); Protein, Total 7.9 g/dL (6.4-8.2); Sodium Level 137 mmol/L (136-145)
[2021-11-18 18:50] LABS: Magnesium 1.9 mg/dL (1.6-2.6); Troponin-I HS 8 pg/mL (3.0-54.0)
[2021-11-18 19:32] VITALS: BP 145/77; PULSE 65; RESP 17; O2SAT 95
== END 2021-11-18 19:52 | disposition home or self-care (01) ==
PROVIDERS: Emergency Provider Emergency Medicine; PCP Internal Medicine; Visit Provider Emergency Medicine
DX: R53.81 Other malaise (principal); R35.0 Frequency of micturition; I10 Essential (primary) hypertension; Z87.891 Personal history of nicotine dependence; Z87.442 Personal history of urinary calculi; K21.9 Gastro-esophageal reflux disease without esophagitis; Z85.528 Personal history of other malignant neoplasm of kidney
CPT/HCPCS: 74177; 80053; 81001; 83735; 84484; 85025; 87086; 87088; 93005; 99284; J7030; Q9967; A4216

== ENCOUNTER 2022-05-23 14:04 | Emergency (ER) | payer MEDICARE, SELFPAY ==
[2022-05-23 14:05] VITALS: BP 144/72; PULSE 77; RESP 14; TEMP 36.6; O2SAT 99; BMI 55.2
[2022-05-23 18:30] VITALS: RESP 18; O2SAT 95
--- NOTE | 2022-05-23 18:43 | ED.VIS.BACK ---
HPI History of Present Illness Chief Complaint: Lower Extremity Injury Detail of Chief Complaint: Right lower back, buttocks and lower extremity pain distribution of L3 IV n Informant: patient Onset/Context/Timing Onset: Today (They complains of numbness and altered sensation right leg) and Month(s) (Intermittent radicular pain for months.) Context: Sudden Onset Chronic pain exacerbated by: Nothing Injury: other (No of injury) Timing: Continuous Quality: - (Tingling/paresthesia with pain) Location: - (L3/L4 radiculopathy right) Current Severity: Mild Maximum Severity: Moderate Associated Symptoms Associated Symptoms: Numbness, Tingling and Radiation to Right Leg; Negative for Radiation to Left Leg, Fever, Abdominal Pain, Dysuria, Unable to Ambulate, Unable to Transfer, Urinary Retention, Urinary Incontinence, Constipation or Fecal Incontinence Narrative Narrative: Patient is a 77-year-old woman whose had intermittent pain suggestive of a L3 or L4 radiculopathy. She presents today because of tingling numbness in the L3 distribution. She denies bowel bladder dysfunction. Denies saddle paresthesia or anesthesia. Denies foot drop. She denies buckling of her knees going up or down steps. She complains of her leg not feeling right. She denies fever, chills night sweats. She is had no recent surgical procedures or dental procedures. She denies any history of trauma. Prior similar symptoms: Yes (Radicular pain not the numbness and tingling as previously described) Recent Illness/Hospitalization: No PFSH PFSH Medical History Bladder prolapse GERD (gastroesophageal reflux disease) HTN (hypertension) Hx of renal cell carcinoma Hypoglycemia Lumbar radiculopathy Osteoporosis Scoliosis Home Medications alendronate 70 mg tablet 70 mg PO Q7D@0700 12/26/15 [History Last Taken Unknown] aspirin 81 mg chewable tablet 81 mg PO DAILY 12/26/15 [History Last Taken Unknown] cholecalciferol (vitamin D3) 25 mcg (1,000 unit) tablet (Vitamin D3) 1,000 unit PO DAILY 12/26/15 [History Last Taken Unknown] hydrochlorothiazide 25 mg tablet 25 mg PO DAILY 12/26/15 [History Last Taken Unknown] losartan 25 mg tablet 25 mg PO DAILY 12/26/15 [History Last Taken Unknown] qrmpezof-lpu-iacdu acid 0.4 mg-lycopene 300 mcg-lutein 250 mcg tablet (Centrum Silver) 1 ea PO DAILY 12/26/15 [History Last Taken Unknown] oxybutynin chloride 5 mg tablet 5 mg PO BID 12/26/15 [History Last Taken Unknown] magnesium oxide 400 mg (241.3 mg magnesium) tablet 400 mg PO BIDCM #14 tabs 06/18/17 [Rx Last Taken Unknown] polyethylene glycol 3350 17 gram oral powder packet 17 gm PO DAILY #30 packets 06/18/17 [Rx Last Taken Unknown] potassium chloride 20 mEq tablet,extended release(part/cryst) 40 meq PO DAILY #30 tabs 06/18/17 [Rx Last Taken Unknown] cephalexin 500 mg capsule 500 mg PO BID 10 days #20 caps 09/08/20 [Rx Last Taken Unknown] diltiazem HCl 180 mg capsule,24 hr,extended release 360 mg PO DAILY 09/08/20 [History Last Taken Unknown] famciclovir 500 mg tablet 500 mg PO Q8H 09/08/20 [History Last Taken Unknown] fexofenadine 180 mg tablet 180 mg PO DAILY 09/08/20 [History Last Taken Unknown] lorazepam 0.5 mg tablet 0.5 mg PO DAILY 09/08/20 [History Last Taken Unknown] omeprazole 40 mg capsule,delayed release 40 mg PO DAILY 09/08/20 [History Last Taken Unknown] cephalexin 500 mg capsule 500 mg PO Q12 #7 caps 06/01/21 [Rx Last Taken Unknown] dexamethasone 1.5 mg (21 tabs) tablets in a dose pack 1.5 mg PO DAILY #21 tabs 05/23/22 [Rx Last Taken Unknown] Allergy/AdvReac Type Severity Reaction Status Date / Time lisinopril Allergy Swelling Verified 05/23/22 14:05 esomeprazole [From Nexium] AdvReac Nausea/Vom/ Verified 05/23/22 14:05 Diarrhea Surgical History H/O partial nephrectomy Social History Smoking Status: Former smoker ROS ROS ED Constitutional Constitutional ED: Denies chills, fever(s), subjective or sweats Eyes Eyes: Denies blurry vision, change in vision or diplopia ENT ENT ED: Denies ear pain, rhinorrhea or sore throat Cardiovascular Cardiovascular: Denies chest pain, orthopnea, palpitations, paroxysmal nocturnal dyspnea or racing heartbeat Respiratory/Chest Respiratory/Chest: Denies dyspnea, dyspnea on exertion, orthopnea or paroxysmal nocturnal dyspnea Gastrointestinal Gastrointestinal: Denies abdominal pain, constipation, diarrhea, melena, nausea or vomiting Genitourinary Genitourinary ED: Denies dysuria, hematuria or urinary frequency Musculoskeletal Musculoskeletal: Reports back pain and other Details: L3 radiculopathy ; Denies arthralgias, myalgias or neck pain Integumentary Denies Abrasions or rash Neurologic Neurologic: Reports paresthesias; Denies headache(s) or weakness Endocrine Endocrinology: Denies cold intolerance or heat intolerance Hematologic/Lymphatic Hematologic/Lymphatic: Denies easy bleeding or easy bruising Allergic/Immunologic Allergic/Immunologic ED: Denies mouth swelling or tongue swelling EXAM Physical Exam Const Vital Signs: 05/23/22 14:05 05/23/22 18:30 Temperature 98 F Temperature Source Temporal Pulse Rate 77 Respiratory Rate 14 18 Blood Pressure 144/72 H Blood Pressure Mean 96 Pulse Ox 99 95 Oxygen Delivery Method Room Air Positive well nourished and well developed General Appearance ED: well developed; Negative for NAD or pallor HEENT Reports moist mucous membranes HEENT Narrative: It is atraumatic normocephalic. Ears normal. Nares patent. Posterior pharynx is normal. Eyes PERRL and EOMs intact bilaterally General Eye ED: Negative for pale conjunctiva or scleral icterus Neck no lymphadenopathy, supple and no JVD Resp normal respiratory effort and clear to auscultation bilaterally Cardio regular rate, regular rhythm, S1 normal heart sound, S2 normal heart sound and no murmurs GI normal to inspection, nondistended, normoactive bowel sounds, soft to palpation, non-tender, non-distended and no masses Back/Spine normal to inspection and no thoracic nor lumbar tenderness Back/Spine Narrative: Straight leg test is negative right and left. Absent patellar reflex on the right. Patellar reflexes 2+ on the left. Ankle reflexes 2+ bilateral. EHL is intact. Patient has altered sensation L3 dermatome. She is able to walk on her heels and toes with some difficulty. She is able to perform a 1 legged squat right and left. She has normal buttock sensation. Femoral stretch test was not performed. Extremity normal to inspection and no clubbing, cyanosis or edema Extremity Narrative: DP and PT pulse are palpable. Neuro oriented x3 and No no sensory deficits noted Neuro Narrative: Altered sensation L3 dermatome Sensorium / Orientation: alert Motor Exam: strength 5/5 throughout Deep Tendon Reflexes: Rt Patellar (L4): 0, Lt Patellar (L4): 2+, Rt Ankle (S1): 2+ and Lt Ankle (S1): 2+ Deep Tendon Reflexes Back: Rt Patellar (L4): 0, Lt Patellar (L4): 2+, Rt Ankle (S1): 2+ and Lt Ankle (S1): 2+ Plantar Reflex: Downgoing: bilateral Psych mental status grossly normal Skin no rashes or lesions noted and no wounds General Skin Exam: Negative for jaundice or pallor MDM MDM MDM Narrative Medical decision making narrative: Suspect patient may have an L3 or L4 herniated disc. Also may be atypical presentation for neoplasm. MRI was obtained without contrast and she has not had prior back surgery. Patient was medicated with IV opiates for her discomfort. Awaiting MRI and MRI results. History & Record Review Additional record(s) reviewed:: Prior inpatient record (Discharge summaries from outside facilities were scanned into the computer and reviewed.), Prior outpatient record (Visits for malaise and electrolyte abnormality), Prior ED visit and Prior labs Radiography Diagnostic Testing: Clinical Impression(s) from Imaging Studies Lumbar Spine MRI 05/23/22 19:07 IMPRESSION: Moderate levoscoliosis detailed above. Moderate left neural foraminal stenosis at L4-5 and L5-S1. Moderate right neural foraminal stenosis at L3-4. No spinal canal stenosis. Electronically Signed: Clovis May MD at 20:19 EDT , MRI report was read. Patient has disc bulge L2 to through S1. There is also moderate left neuroforaminal stenosis at L4-5 and L5-S1. There is moderate right neuroforaminal stenosis at L3-4 which would explain her symptoms. Case was discussed with Dr. Wooten the spine surgeon. Agrees with plan of steroids and follow-up with him. Discharge Plan Triage Chief Complaint: Lower Extremity Injury ED Provider: Calvin Andrews Dx/Rx/DC Orders Clinical Impression: Lumbosacral radiculopathy at L3, Benign essential hypertension, GERD (gastroesophageal reflux disease), Neural foraminal stenosis of lumbar spine, Bulging of lumbar intervertebral disc without myelopathy Instructions: Understanding Lumbar Radiculopathy Prescriptions: New dexamethasone 1.5 mg (21 tabs) tablets,dose pack 1.5 mg PO DAILY Qty: 21 0RF No Action alendronate 70 MG tablet 70 mg PO Q7D@0700 losartan 25 MG tablet 25 mg PO DAILY aspirin 81 MG tablet,chewable 81 mg PO DAILY hydrochlorothiazide 25 MG tablet 25 mg PO DAILY oxybutynin chloride 5 MG tablet 5 mg PO BID [id number] [Centrum Silver] 1 EACH tablet 1 ea PO DAILY cholecalciferol (vitamin D3) [Vitamin D3] 1,000 UNIT tablet 1,000 unit PO DAILY magnesium oxide 400 MG tablet 400 mg PO BIDCM Qty: 14 0RF polyethylene glycol 3350 17 GM packet 17 gm PO DAILY Qty: 30 0RF potassium chloride 20 MEQ tablet 40 meq PO DAILY Qty: 30 0RF famciclovir 500 mg Tablet 500 mg PO Q8H diltiazem HCl 180 mg capsule,extended release 24 hr 360 mg PO DAILY fexofenadine 180 mg Tablet 180 mg PO DAILY omeprazole 40 mg Capsule,Delayed Release(Dr/Ec) 40 mg PO DAILY lorazepam 0.5 mg tablet 0.5 mg PO DAILY cephalexin 500 mg capsule 500 mg PO BID 10 Days Qty: 20 0RF cephalexin 500 mg capsule 500 mg PO Q12 Qty: 7 0RF Primary Care Provider: Femi Baeza Referrals: Femi Baeza MD [Primary Care Provider] - Disposition Disposition: Home, Self Care
--- NOTE | 2022-05-23 19:07 | MRI_ITS ---
PROCEDURE: LUMBAR SPINE MRI WITHOUT CONTRAST COMPARISONS: None CLINICAL INDICATION: L3 radicular pain, numbness and absent patellar re -- Absent patellar reflex TECHNIQUE: Noncontrast lumbosacral spine MRI study was performed multiple sequences in sagittal and axial planes. FINDINGS: Moderate levoscoliosis centered on L2 with leftward listhesis at L3-4 and L4-5. Normal vertebral marrow signal. Normal partially visualized sacroiliac joints. The conus medullaris terminates at L1. No abnormal signal within the visualized cord. L1-L2: Disc bulge. No spinal canal or neural foraminal stenosis. L2-L3: Disc bulge. No spinal canal or neural foraminal stenosis. L3-L4: Disc bulge. Rightward endplate edema. Moderate right neural foraminal stenosis. L4-L5: Disc bulge. Moderate left neural foraminal stenosis. L5-S1: Disc bulge. Moderate left neural foraminal stenosis. Paraspinous muscle fatty infiltration. MRI/Spine Lumbar (Routine) IMPRESSION: Moderate levoscoliosis detailed above. Moderate left neural foraminal stenosis at L4-5 and L5-S1. Moderate right neural foraminal stenosis at L3-4. No spinal canal stenosis. Electronically Signed: Clovis May MD at 20:19 EDT ,
[2022-05-23 21:13] VITALS: BP 138/76; PULSE 79; RESP 18
== END 2022-05-23 21:14 | disposition home or self-care (01) ==
PROVIDERS: Emergency Provider Emergency Medicine; PCP Internal Medicine; Visit Provider Emergency Medicine
DX: M48.061 Spinal stenosis, lumbar region without neurogenic claudication (principal); Z87.891 Personal history of nicotine dependence; M51.26 Other intervertebral disc displacement, lumbar region; M54.17 Radiculopathy, lumbosacral region; I10 Essential (primary) hypertension; K21.9 Gastro-esophageal reflux disease without esophagitis; Z79.899 Other long term (current) drug therapy; Z79.82 Long term (current) use of aspirin; M81.0 Age-related osteoporosis without current pathological fracture
CPT/HCPCS: 72148; 99282

== ENCOUNTER 2022-11-02 12:44 | Outpatient (CLI) | payer MEDICARE, SELFPAY ==
[2022-11-02 13:00] VITALS: BP 144/67; PULSE 71; RESP 16; TEMP 36.2; O2SAT 95; BMI 24.3
[2022-11-02] MEDS: DENOSUMAB 60 MG/ML SC (13:05)
== END 2022-11-02 12:45 | disposition home or self-care (01) ==
LOC: MEDOUTP 12:46
PROVIDERS: PCP Internal Medicine; Referring Provider Internal Medicine Endocrinology, Diabetes & Metabolism; Visit Provider Internal Medicine Endocrinology, Diabetes & Metabolism
DX: M81.0 Age-related osteoporosis without current pathological fracture (principal)
CPT/HCPCS: 96372; J0897

== ENCOUNTER → 2022-12-12 | Outpatient (CLI) | payer MEDICARE, SELFPAY ==
--- NOTE | 2022-12-12 13:58 | CT_ITS ---
EXAM: CT ABDOMEN AND PELVIS WITH INTRAVENOUS CONTRAST CLINICAL INDICATION: LEFT KIDNEY CANCER WITH PARTIAL NEPHRECTOMY. CHOLECYSTECTOMY TECHNIQUE: Helically acquired images were obtained of the abdomen and pelvis with intravenous contrast. This CT exam was performed using one or more of the following dose reduction techniques: automated exposure control, adjustment of the mA and/or kV according to patient size, and/or use of iterative reconstruction technique. CONTRAST: IV 75mL Isovue-300 RADIATION DOSE: CTDIvol = 10.55 mGy, DLP = 981.72 mGy-cm COMPARISON: 11/18/2021, 06/16/2017. FINDINGS: Exam limited by marked distortion of the anatomy related to severe levoconvex scoliosis. LOWER THORAX: Unremarkable. Lung bases are clear. No cardiomegaly. No significant pericardial effusion. ABDOMEN: LIVER: Unremarkable. Homogeneous. No focal mass. GALLBLADDER AND BILE DUCTS: Gallbladder is not seen. Mild intrahepatic and extrahepatic bile duct distention, stable. PANCREAS: Unremarkable. No focal cystic or solid mass. SPLEEN: Unremarkable. Normal size without focal cystic or solid mass. ADRENALS: Unremarkable. No nodules. KIDNEYS AND URETERS: No acute abnormalities of the kidneys but there is a stable complex low-attenuation mass of the lateral right kidney measuring 1.8 cm. However since prior exam of 06/16/2017 there has been an increase in size. Neoplasm is not excluded for this lesion. Postsurgical changes of the upper pole of the left kidney, stable. STOMACH AND BOWEL: Evaluation of the GI tract is limited by absence of oral contrast. Moderate hiatal hernia. Cannot exclude stomach wall thickening. No dilated loops of bowel or evidence for obstruction. Cannot exclude segmental thickening of the nino of the small or large bowel. Cannot exclude enteritis or colitis. Marked diffuse fecal retention. Diverticulosis without definite diverticulitis. Appendix within normal limits. PELVIS: APPENDIX: No evidence of acute appendicitis. BLADDER: Unremarkable. REPRODUCTIVE: Atrophic uterus. ABDOMEN and PELVIS: INTRAPERITONEAL SPACE: Unremarkable. No ascites or other fluid collection. No free air. BONES/JOINTS: Severe levoconvex scoliosis. Multilevel degenerative changes. No suspicious lytic or blastic abnormality. SOFT TISSUES: Unremarkable. No discrete abdominal or pelvic wall hernia. VASCULATURE: Unremarkable. Abdominal aorta is non-dilated. LYMPH NODES: Unremarkable. No enlarged lymph nodes. CT/Abdomen/Pelvis W IV Cont ONLY IMPRESSION: 1. Limited by significant distortion of the anatomy related to severe levoconvex scoliosis. 2. Stable moderate to large hiatal hernia. 3. Stable indeterminate low-attenuation mass of the mid right kidney. Neoplasm is not excluded. 4. Marked diffuse fecal retention. Intramammary Electronically Signed: Maged Kinney MD at 17:29 EDT ,
[2022-12-12 14:24] LABS: CREATININE FINGERSTICK < 0.9 mg/dL (0.55-1.02); EGFR FINGERSTICK > 60.0000 mL/min (>60)
== END | disposition home or self-care (01) ==
PROVIDERS: PCP Internal Medicine; Referring Provider Urology; Visit Provider Urology
DX: N28.1 Cyst of kidney, acquired (principal); D41.01 Neoplasm of uncertain behavior of right kidney
CPT/HCPCS: 74177; Q9967

== ENCOUNTER 2023-08-28 14:27 | Outpatient (CLI) | payer MEDICARE, SELFPAY ==
[2023-08-28 16:15] LABS: ALB/GLOB Ratio 1.3 RATIO (0.9-2.4); AST(SGOT) 16 U/L (15-37); Alanine Aminotransfer ALT/SGPT 19 U/L (13-56); Albumin, Serum 4.4 g/dL (3.2-5.0); Alkaline Phosphatase 54 U/L (45-117); Anion Gap 6 (5-15); BUN 15 mg/dL (7-18); BUN/Creat Ratio 20.7 RATIO (10-20); Calcium,Total 10.2 mg/dL (8.5-10.1); Chloride 101 mmol/L (98-107); Creatinine, Serum 0.73 mg/dL (0.55-1.02); EST Glomerular Filtration Rate 83 mL/min (>60); Est Glom Filt Rate - Afr Amer 100 mL/min (>60); Globulin 3.5 g/dL (2.2-4.2); Glucose 114 mg/dL (74-106); Potassium 3.7 mmol/L (3.5-5.1); Protein, Total 7.9 g/dL (6.4-8.2); Sodium Level 134 mmol/L (136-145)
[2023-08-28 16:16] LABS: Vitamin D,25 Hydroxy 44.3 ng/mL
[2023-08-28 18:07] LABS: Bacteria 0 SEEN /hpf (None Seen); Mucous, Urine 0 SEEN /hpf (<or=2+); Red Blood Cells-Urine 0 SEEN /hpf (0-5)
[2023-08-28 18:37] LABS: Color, Urine Yellow (Yellow); Glucose, Dipstick Normal (Normal); Ketone-Dipstick Negative (Negative); Leukocyte Esterase-Dipstick 100 /ul (Negative); Nitrite-Dipstick Negative (Negative); Occult Blood-Urine 10 /ul (Negative); Protein-Dipstick Negative (Negative); Urine Bilirubin Dipstick Negative (Negative); Urine Clarity Clear (Clear); Urine Urobilinogen Normal (Normal); Urine pH 6.5 (5.0 - 8.0)
[2023-08-28 18:46] LABS: Renal Epithelial Cells 0-5 SEEN /hpf (0-5); White Blood Cells 0-5 SEEN /hpf (0-5)
[2023-08-28 18:47] LABS: Calcium Oxalate Crystals Ur 1+ /hpf (<or=2+); Squamous Epithelial Cells - UA 0-5 SEEN /hpf (5-10)
== END 2023-08-28 23:59 | disposition home or self-care (01) ==
PROVIDERS: Physician Assistant; PCP Internal Medicine; Referring Provider Internal Medicine Endocrinology, Diabetes & Metabolism; Visit Provider Internal Medicine Endocrinology, Diabetes & Metabolism
DX: R30.0 Dysuria (principal); E55.9 Vitamin D deficiency, unspecified; E21.0 Primary hyperparathyroidism; M81.0 Age-related osteoporosis without current pathological fracture
CPT/HCPCS: 36415; 80053; 81001; 82306; 83970; 87086

== ENCOUNTER → 2023-12-12 | Outpatient (CLI) | payer MEDICARE, SELFPAY ==
--- NOTE | 2023-12-12 18:48 | CT_ITS ---
STUDY: CT ABDOMEN AND PELVIS WITH AND WITHOUT CONTRAST REASON FOR EXAM: Female, 78 years old. CYST OF KIDNEY RADIATION DOSAGE (If Supplied By Facility): CTDIvol = ( 12.23 ) mGy, DLP = ( 924.36 ) mGycm TECHNIQUE: Transaxial images were obtained from the dome of the diaphragm to the symphysis pubis without oral contrast. IV 100mL Isovue-370 was administered. Sagittal and coronal images were reconstructed. Individualized dose optimization techniques were used for this CT. COMPARISON: December 12, 2022 FINDINGS: Mild chronic interstitial thickening at left base.. Large hiatal hernia is noted displacing the heart anteriorly towards the right Normal liver. Gallbladder has been removed surgically. Normal spleen. Normal pancreas. Normal bilateral adrenal glands. Right kidney is not obstructed. There is a complex cyst in the lateral cortex measuring 1.25 x 1.83 cm portion of which demonstrates enhancement following contrast administration although not changed in size since prior exam. Postsurgical deformity of the left kidney. Normal visualized stomach. Normal small intestine. Extensive fecal retention noted within the colon . Diverticular disease of the colon without evidence for acute diverticulitis. No evidence for acute appendicitis. Atherosclerotic changes of the aorta without evidence for aneurysm. Normal inferior vena cava. Normal retroperitoneum. Poorly distended thick walled bladder which cannot be adequately evaluated Normal abdominal wall. Lumbar spine demonstrates severe scoliosis and degenerative change. CT/CT Abd/Pelvis W/WO Contrast IMPRESSION: Persistent complex cyst in the right kidney not changed in size appreciably since previous exam. MRI would be helpful for further evaluation if indicated Postsurgical deformity of the left kidney without evidence for recurrent or residual tumor Electronically Signed: Casey Rick MD at 19:26 EDT ,
[2023-12-12 19:11] LABS: CREATININE FINGERSTICK < 1.0 mg/dL (0.55-1.02)
== END | disposition home or self-care (01) ==
LOC: CT 18:46
PROVIDERS: PCP Internal Medicine; Referring Provider Urology; Visit Provider Urology
DX: C64.2 Malignant neoplasm of left kidney, except renal pelvis (principal); D41.01 Neoplasm of uncertain behavior of right kidney
CPT/HCPCS: 74178; Q9967

== ENCOUNTER 2024-01-13 13:02 | Emergency (ER) | payer MEDICARE, SELFPAY ==
[2024-01-13 13:02] VITALS: BP 170/94; PULSE 95; RESP 16; TEMP 36.9; O2SAT 98; BMI 26.9
[2024-01-13 13:04] VITALS: BP 167/89; PULSE 90; RESP 16; TEMP 36.6; O2SAT 98
[2024-01-13 14:04] VITALS: BP 147/62; PULSE 76; RESP 18; TEMP 36.6; O2SAT 96
[2024-01-13 14:33] LABS: Bacteria 0 SEEN /hpf (None Seen); Mucous, Urine 0 SEEN /hpf (<or=2+); Red Blood Cells-Urine 0 SEEN /hpf (0-5); Squamous Epithelial Cells - UA 0 SEEN /hpf (5-10); White Blood Cells 0 SEEN /hpf (0-5)
[2024-01-13 14:35] LABS: Color, Urine Straw (Yellow); Glucose, Dipstick Normal (Normal); Ketone-Dipstick Negative (Negative); Leukocyte Esterase-Dipstick Negative /ul (Negative); Nitrite-Dipstick Negative (Negative); Occult Blood-Urine 10 /ul (Negative); Protein-Dipstick Negative (Negative); Specific Gravity, Urine 1.005 (1.002-1.030); Urine Bilirubin Dipstick Negative (Negative); Urine Clarity Clear (Clear); Urine Urobilinogen Normal (Normal)
[2024-01-13 14:36] LABS: Absolute Lymphocyte Count 1.13 X10^3/uL (0.83-4.51); Absolute Neutrophil Count 7.1 X10^3/uL (2.0-7.7); Basophil# 0.06 X10^3/uL; Basophil% 0.7 % (0-1); Hematocrit 47.4 % (37-47); Hemoglobin 15.4 g/dL (12.0-15.0); Lymphocyte # 1.13 X10^3/ul (0.83-4.51); Lymphocyte % 12.3 % (19-41); Mean Corp Hgb Conc 32.5 g/dL (32-36); Mean Corpuscular Hgb 29.1 pg (27.0-32.0); Mean Corpuscular Volume 89.6 fL (81-99); Mean Platelet Vol. 10.6 fl (6.2-12.0); Monocyte# 0.79 X10^3/uL; Monocyte% 8.6 % (0-10); NRBC Flagged by Analyzer 0 % (0-5); Neutrophil # 7.13 X10^3/uL (2.7-7.7); Platelet Count 215 K/mm3 (150-450); RBC Distribution Width CV 13.2 % (11.6-14.6); Red Blood Count 5.29 M/mm3 (4.2-5.4); White Blood Count 9.2 K/mm3 (4.4-11.0)
[2024-01-13 14:47] LABS: Anion Gap 9 (5-15); BUN 15 mg/dL (7-18); BUN/Creat Ratio 22.6 RATIO (10-20); Calcium,Total 10.2 mg/dL (8.5-10.1); Chloride 102 mmol/L (98-107); Creatinine, Serum 0.66 mg/dL (0.55-1.02); EST Glomerular Filtration Rate 92 mL/min (>60); Est Glom Filt Rate - Afr Amer 111 mL/min (>60); Glucose 131 mg/dL (74-106); Potassium 3.8 mmol/L (3.5-5.1); Sodium Level 138 mmol/L (136-145)
[2024-01-13 15:00] VITALS: BP 133/62; PULSE 67; RESP 18; TEMP 36.6; O2SAT 96
[2024-01-13 15:31] VITALS: BP 138/71; PULSE 67; RESP 16; TEMP 36.6; O2SAT 96
== END 2024-01-13 15:32 | disposition home or self-care (01) ==
PROVIDERS: Emergency Provider Emergency Medicine; PCP Internal Medicine; Visit Provider Emergency Medicine
DX: M54.50 Low back pain, unspecified (principal); Z87.891 Personal history of nicotine dependence; R10.9 Unspecified abdominal pain; R30.0 Dysuria; R35.0 Frequency of micturition; I10 Essential (primary) hypertension; N28.1 Cyst of kidney, acquired; K21.9 Gastro-esophageal reflux disease without esophagitis
CPT/HCPCS: 80048; 81001; 85025; 99283; A4216

== ENCOUNTER 2024-02-17 14:00 | Outpatient (RCR) | payer MEDICARE, SELFPAY ==
--- NOTE | 2024-01-28 16:21 | HP.PTEVAL ---
Patient's Visit Information Visit Information Visit Information: LEONEL BAUM is a 78 year old F referred to Physical Therapy by Dr. César Johnson MD with a diagnosis of gait disturbance. Date of Evaluation: 01/28/24 Physical Therapist: Armond Garza, NAINAT, OCS, CSCS Visit Plan Frequency: 2x /Week Duration: 4-6 Weeks Plan: 2x/week for 4-6 weeks for... IE: given 5 min walk with wh walker(pt to get) and 5 min supine lie all 2x/day please teach general strength with band for UE, posture, hips and core adn LE and work to I. May use MH for neck pain, focus on posture, Encourage use of wh walker for back and neck tolerance to ambulation. Subjective Subjective: I have a cokllapsed disc that pinched nerve that gave back and R leg pain to toe. Has neck pain also that can hurt badly for no apparent. Has been there 3 weeks. Gets stiff neck often. Dr. Baeza is PCP. Has not seen doctor for pain. Not seen ortho or pain doctor. Was at pain center last year for back injection that did not help and she did not go back. No falls. Balance feels good. . Has scoliosis and has for long time. Lives with two sons. stih steps into house 5 total with railing. Sleep is OK 2-3 hrs at time due to bladder, sees Sruthi for kidney masses Not employed. Basic ADLs dress and shower and bathroom I. Makes own meals. No regular exercise. 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 Uses cane out and about but not at home. Pain neck pain: Pain Intensity (Out of 10): 2 Pain Intensity Range: 0 and 9 Comment: cannot straighten up LB: Pain Intensity (Out of 10): 0 Comment: into R leg and sometimes L.2 min at a time. Needs to keep moving. Objective Objective: Walks hunched over in thoracic spine with cane into PT I looking at floor and upper cervical extension. Can do it I without cane also. Looks best with wh walker, up taller and less back and neck pain. 500 feet overall ambulation is about the limit in 8 minutes due to fatigue and pain. Trasnfer bed and chair I. Steps reciprocal with one rail and one but very weak in legs and hunched over. Able to lie flat on bed but needs multiple pillows for neck adn thoracic kyphosis. tight in back in this position. Tightness apparent in psoas B and HS at -25 90/90. LB AROM ext max limited, flexion mod limited, SB mod limited. LE AROM WFL except hip extension which is 0 B. sensation WNL to gross light touch in LE reflexes 0/3 patella and achilles Strength core 3, hips 3, knees 3+, ankles 4-. very unstable sitting with leg testing but safe. Balance/Special Test Scores Functional Gait Assessment Score: 22 % Disability: 26.6700 CATSIB Score (Max score 120 seconds): 105 Lower Extremity Functional Score: 31 Goals Goal 1:: I appropriate HEP for general strength emphasizing posture and core and hips and LE Goal Time Frame: 4-6 Weeks Goal 2:: Pt feel 75% better in mobility and pain with ambulation Goal Time Frame: 4-6 Weeks Goal 3:: walk 10 minutes with wh walker without increased pain Goal Time Frame: 4-6 Weeks Goal 4:: LEFS score 40 Goal Time Frame: 4-6 Weeks Rehabilitation Potential Physical Therapy Diagnosis: weakness and postural abnormalities limiting comfortable mobility Rehabilitation Potential: Fair Anticipated Interventions Patient/Client Instruction: Educate patient on: Condition and Risk Factors For the Purpose of:: To improve nutrient delivery to tissue, To improve muscle performance and motor function and To increase tolerance to activity/condition/position Therapeutic Exercise to Include: Strength training, Postural training, Passive ROM and Active ROM For the Purpose of:: To decrease pain, To increase ROM, To improve muscle performance and motor function, To increase tolerance to activity/condition/position, To improve ability of physical actions for home/community/work/leisure and To improve gait and locomotor functions Text: Thank you for the opportunity to evaluate your patient. For Medicare and Medicare HMO plans, please review the plan of care and approve it. It will need to be FAXED BACK to us at [phone] for Medicare purposes. For Medicare only, by signing this I certify the plan of care. Please let me know if there are questions or concerns regarding this plan of care. Physician Signature: Date:
--- NOTE | 2024-04-20 13:23 | HP.PT.NRP ---
Patient Information Patient Information: LEONEL BAUM was seen in my office for initial evaluation on 01/28/24. The following Plan of Care was established for this patient: POC Established Initial Frequency: 2x /Week Initial Duration: 4-6 Weeks Anticipated Interventions Patient/Client Instruction: Educate patient on: Condition and Risk Factors For the Purpose of:: To improve nutrient delivery to tissue, To improve muscle performance and motor function and To increase tolerance to activity/condition/position Therapeutic Exercise to Include: Strength training, Postural training, Passive ROM and Active ROM For the Purpose of:: To decrease pain, To increase ROM, To improve muscle performance and motor function, To increase tolerance to activity/condition/position, To improve ability of physical actions for home/community/work/leisure and To improve gait and locomotor functions Last Seen Last Seen: This patient was last seen in our office 02/17/24. Pertinent comments regarding their Physical therapy will appear below: Pt seen 2 visits of POC and then was admitted to hospital through ER. She has not attended any further visits and it has been over 2 months and I will discontinue her from my care. At this point I will be discontinuing this patient from physical therapy. I would be happy to see this patient again in the future if found appropriate by the physician. Thank you! Armond Garza, DPT, OCS, CSCS Balance/Gait/Functional tests Balance/Special Test Scores Functional Gait Assessment Score: 22 % Disability: 26.6700 CATSIB Score (Max score 120 seconds): 105 Lower Extremity Functional Score: 31
== END 2024-02-17 19:00 | disposition home or self-care (01) ==
LOC: PT 14:00
PROVIDERS: PCP Internal Medicine; Referring Provider Internal Medicine Endocrinology, Diabetes & Metabolism; Visit Provider Internal Medicine Endocrinology, Diabetes & Metabolism
DX: M81.0 Age-related osteoporosis without current pathological fracture (principal); R26.9 Unspecified abnormalities of gait and mobility
CPT/HCPCS: 97110; 97162

== ENCOUNTER 2024-02-20 23:43 | Emergency (ER) | payer MEDICARE, SELFPAY ==
[2024-02-20 23:45] VITALS: BP 127/66; PULSE 83; RESP 18; TEMP 36.7; O2SAT 96
[2024-02-20 23:48] VITALS: BMI 24.2
[2024-02-21] MEDS: Ondansetron 4 MG/2 ML Vial IV (00:14)
[2024-02-21] MEDS: 0.9% Normal Saline (500mL Bag) 500 ML 999 ML IV (00:14)
[2024-02-21 00:21] LABS: Absolute Lymphocyte Count 0.27 X10^3/uL (0.83-4.51); Basophil# 0.04 X10^3/uL; Basophil% 0.4 % (0-1); Eosinophil# 0.04 X10^3/uL; Eosinophils% 0.4 % (0-5); Hematocrit 42.9 % (37-47); Hemoglobin 14.2 g/dL (12.0-15.0); Lymphocyte # 0.27 X10^3/ul (0.83-4.51); Lymphocyte % 2.6 % (19-41); Mean Corp Hgb Conc 33.1 g/dL (32-36); Mean Corpuscular Volume 87.7 fL (81-99); Mean Platelet Vol. 10.2 fl (6.2-12.0); Monocyte# 0.56 X10^3/uL; Monocyte% 5.5 % (0-10); NRBC Flagged by Analyzer 0 % (0-5); Neutrophil # 8.98 X10^3/uL (2.7-7.7); Neutrophil % 88.2 % (47-70); POSITIVE DIFFERENTIAL YES; POSITIVE MORPHOLOGY YES; Platelet Count 200 K/mm3 (150-450); RBC Distribution Width CV 13.2 % (11.6-14.6); RBC Distribution Width SD 41.7 fl (35.1-43.9); Red Blood Count 4.89 M/mm3 (4.2-5.4); White Blood Count 10.2 K/mm3 (4.4-11.0)
[2024-02-21 00:22] LABS: Differential Indicated SCAN CRITERIA MET
[2024-02-21 00:32] LABS: Anisocytosis 1+; Differential Comment SCANNED; Platelet Estimate ADEQUATE (ADEQ)
[2024-02-21 00:35] LABS: ALB/GLOB Ratio 1.2 RATIO (0.9-2.4); AST(SGOT) 15 U/L (15-37); Alanine Aminotransfer ALT/SGPT 24 U/L (13-56); Albumin, Serum 3.8 g/dL (3.2-5.0); Alkaline Phosphatase 41 U/L (45-117); Anion Gap 8 (5-15); BUN 21 mg/dL (7-18); BUN/Creat Ratio 32.1 RATIO (10-20); Calcium,Total 8.9 mg/dL (8.5-10.1); Chloride 101 mmol/L (98-107); Creatinine, Serum 0.66 mg/dL (0.55-1.02); EST Glomerular Filtration Rate 93 mL/min (>60); Est Glom Filt Rate - Afr Amer 112 mL/min (>60); Estimated Creatinine Clearance 50.05 ml/min; Globulin 3.3 g/dL (2.2-4.2); Glucose 140 mg/dL (74-106); Lipase 15 U/L (13-75); Potassium 3.3 mmol/L (3.5-5.1); Protein, Total 7.1 g/dL (6.4-8.2); Sodium Level 133 mmol/L (136-145)
--- NOTE | 2024-02-21 01:08 | EDS_ITS ---
HPI HPI - GI History of Present Illness Chief Complaint: Nausea/Vomiting/Diarrhea Informant: patient and family Narrative Narrative: 79-year-old female started having watery diarrhea at night a little over 24 hours ago, the next morning she was nauseated have a couple episodes of emesis no blood or coffee-ground's, no melena or blood in the diarrhea, the diarrhea has persisted has not been severe, and she has had some mild lower abdominal cramping associated with some of this that has been intermittent. No fevers or chills. Denies any recent travel out of the area, antibiotics for any infections, history of C. difficile, or raw meats or fish ingestion or other suspicious foods. She states her family member that she has close contact with has had some diarrhea recently, no other known sick contacts. [facility] Medical History Gait disturbance Diverticular disease Primary hyperparathyroidism Sciatica Age related osteoporosis Bowel obstruction Scoliosis Lumbar radiculopathy Hx of renal cell carcinoma Osteoporosis GERD (gastroesophageal reflux disease) Hypoglycemia HTN (hypertension) Bladder prolapse Home Medications ?Medication ?Instructions ?Recorded ?Last Taken ?Type cholecalciferol (vitamin D3) 25 2,000 unit PO DAILY 12/26/15 Unknown History mcg (1,000 unit) tablet (Vitamin D3) losartan 25 mg tablet 25 mg PO DAILY 12/26/15 Unknown History oxybutynin chloride 5 mg tablet 5 mg PO BID 12/26/15 Unknown History diltiazem HCl 180 mg capsule,24 360 mg PO DAILY 09/08/20 Unknown History hr,extended release lorazepam 0.5 mg tablet 0.5 mg PO DAILY 09/08/20 Unknown History acetaminophen 500 mg tablet 500 mg PO Q6H PRN pain 08/23/22 Unknown History (Tylenol Extra Strength) cetirizine 5 mg tablet 5 mg PO DAILY PRN allergy symptoms 08/23/22 Unknown History fluticasone propionate 50 1 spray intranasal DAILY 08/23/22 Unknown History mcg/actuation nasal spray,suspension omeprazole 40 mg capsule,delayed 40 mg PO DAILY 08/23/22 Unknown History release sodium chloride 0.65 % nasal spray 1 spray intranasal ONCE 08/23/22 Unknown History aerosol denosumab 60 mg/mL subcutaneous 60 mg subcut [id number] #1 mL 10/03/22 Unknown Rx syringe (Prolia) Lactobacillus rhamnosus GG 20 1 cell PO DAILY 12/16/23 Unknown History billion cell capsule (Probiotic Digestive Care) sennosides 17.2 mg tablet (Senokot 17.2 mg PO QDAY 12/16/23 Unknown History Extra Strength) hydrocodone-acetaminophen 5-325mg 1 tab PO Q6H PRN PRN Pain 3 days 01/13/24 Unknown Rx 5mg-325mg #10 TABLETS phenazopyridine 200 mg tablet 200 mg PO TID #10 tabs 01/13/24 Unknown Rx (Pyridium) amoxicillin 500 mg tablet 500 mg PO TID #30 tabs 01/22/24 Unknown Rx ondansetron 8 mg disintegrating 8 mg PO Q8H PRN nausea and 02/21/24 Unknown Rx tablet vomiting #15 tabs potassium chloride 20 mEq 20 meq PO BID #8 tabs 02/21/24 Unknown Rx tablet,extended release Allergy/AdvReac Type Severity Reaction Status Date / Time lisinopril Allergy Swelling Verified 02/20/24 23:45 esomeprazole (From Nexium) AdvReac Nausea/Vom/ Verified 02/20/24 23:45 Diarrhea Family History Father Alcoholism Brother Alcoholism Mother Arthritis Hypertension Osteoporosis Surgical History History of knee replacement H/O partial nephrectomy Social History Smoking Status: Former smoker alcohol intake: never what type of physical activity do you participate in: bicycling ROS ROS ED Constitutional Constitutional ED: Denies chills or fever(s) Eyes Eyes: Denies change in vision or diplopia ENT ENT ED: Denies rhinorrhea or sore throat Cardiovascular Cardiovascular: Denies chest pain, lightheadedness, palpitations or syncope Respiratory/Chest Respiratory/Chest: Denies cough or dyspnea Gastrointestinal Gastrointestinal: Reports abdominal pain, diarrhea, nausea and vomiting; Denies hematemesis, hematochezia or melena Genitourinary Genitourinary ED: Denies dysuria or hematuria Musculoskeletal Musculoskeletal: Denies back pain or neck pain Integumentary Denies abscess or rash Neurologic Neurologic: Denies headache(s), paresthesias or weakness Psychiatric Psychiatric: Denies anxiety or suicidal thoughts EXAM Physical Exam Const Vital Signs: 02/20/24 23:45 Temperature 98.1 F Temperature Source Temporal Pulse Rate 83 Respiratory Rate 18 Blood Pressure 127/66 H Blood Pressure Mean 86 Pulse Ox 96 Oxygen Delivery Method Room Air Positive well nourished and well developed General Appearance ED: well developed and NAD HEENT Reports moist mucous membranes normocephalic and atraumatic Eyes PERRL and EOMs intact bilaterally Neck full ROM and supple Resp normal respiratory effort and clear to auscultation bilaterally Cardio regular rate, regular rhythm and no murmurs GI non-tender and non-distended Auscultation: normoactive bowel sounds Palpation: soft Back/Spine no CVA tenderness General Back: other FROM Extremity normal to inspection General Extremety ED: Negative for edema, pulses abnormal or tenderness General Extremity: Negative for edema or pulses abnormal Neuro oriented x3, CN's II-XII intact bilaterally and no sensory deficits noted Sensorium / Orientation: awake and alert Motor Exam: strength 5/5 throughout Skin no rashes or lesions noted and no wounds MDM MDM MDM Narrative Medical decision making narrative: Patient has a very benign abdomen. Her labs show prerenal azotemia at approximately 30: 1 consistent with dehydration rather than GI bleed and she is not acutely anemic to suggest the latter. Liver enzymes are noted and unremarkable, she has a little bit of a trend toward a leftward shift but not a significant leukocytosis and she looks well with normal vital signs. She was given IV fluids, Zofran, some potassium replacement for her low potassium at 3.3, she is doing very well and keeping fluids down well. She was offered admission but declines and feels well enough to go home. She was not able to provide diarrhea specimen here for testing. I suspect this is viral etiology of gastroenteritis based on the symptoms and the fact that she had a family member who had some of the symptoms as well which she might of caught it from. Will prescribe her Zofran and potassium and encourage her to drink plenty of fluids and to follow-up with her doctor or return if worse. She is comfortable with that plan. Lab Data Attestation: I reviewed the patient's lab results. Labs: Laboratory Results - last 24 hr 02/21/24 00:10 WBC 10.2 RBC 4.89 Hgb 14.2 Hct 42.9 MCV 87.7 MCH 29.0 MCHC 33.1 RDW Std Deviation 41.7 RDW Coeff of Sharron 13.2 Plt Count 200 MPV 10.2 Immature Gran % (Auto) 2.900 H Neut % (Auto) 88.2 H Lymph % (Auto) 2.6 L [place] % (Auto) 5.5 Eos % (Auto) 0.4 Baso % (Auto) 0.4 Absolute Neuts (auto) 9.0 H Absolute Lymphs (auto) 0.27 L Nucleated RBC % 0 Differential Comment SCANNED Platelet Estimate ADEQUATE Anisocytosis 1+ Sodium 133 L Potassium 3.3 L Chloride 101 Carbon Dioxide 24.0 Anion Gap 8 BUN 21 H Creatinine 0.66 Estim Creat Clear Calc 50.05 Est GFR (MDRD) Af Amer 112 Est GFR (MDRD) Non-Af 93 BUN/Creatinine Ratio 32.1 H Glucose 140 H Calcium 8.9 Total Bilirubin 1.00 AST 15 ALT 24 Alkaline Phosphatase 41 L Total Protein 7.1 Albumin 3.8 Globulin 3.3 Albumin/Globulin Ratio 1.2 Lipase 15 Discharge Plan Triage Chief Complaint: Nausea/Vomiting/Diarrhea ED Provider: Reinier Aviles Dx/Rx/DC Orders Clinical Impression: Gastroenteritis, Hypokalemia due to excessive gastrointestinal loss of potassium, Mild dehydration Instructions: Viral Gastroenteritis, ED Hypokalemia Prescriptions: New ondansetron 8 mg tablet,disintegrating 8 mg PO Q8H PRN (Reason: nausea and vomiting) Qty: 15 0RF potassium chloride 20 mEq tablet extended release 20 meq PO BID Qty: 8 0RF No Action omeprazole 40 mg capsule,delayed release(DR/EC) 40 mg PO DAILY acetaminophen [Tylenol Extra Strength] 500 mg tablet 500 mg PO Q6H PRN (Reason: pain) cetirizine 5 mg tablet 5 mg PO DAILY PRN (Reason: allergy symptoms) fluticasone propionate 50 mcg/actuation spray,suspension 1 spray intranasal DAILY Rx Instructions: administer into each nostril sodium chloride 0.65 % aerosol,spray 1 spray intranasal ONCE Probiotic Digestive Care 20 billion cell capsule 1 cell PO DAILY Senokot Extra Strength 17.2 mg tablet 17.2 mg PO QDAY amoxicillin 500 mg tablet 500 mg PO TID Qty: 30 0RF losartan 25 MG tablet 25 mg PO DAILY oxybutynin chloride 5 MG tablet 5 mg PO BID cholecalciferol (vitamin D3) [Vitamin D3] 1,000 UNIT tablet 2,000 unit PO DAILY diltiazem HCl 180 mg capsule,extended release 24 hr 360 mg PO DAILY lorazepam 0.5 mg tablet 0.5 mg PO DAILY hydrocodone-acetaminophen 5-325 mg tablet 1 tab PO Q6H PRN PRN (Reason: Pain) 3 Days Qty: 10 0RF phenazopyridine [Pyridium] 200 mg tablet 200 mg PO TID Qty: 10 0RF Prolia 60 mg/mL syringe 60 mg subcut [id number] Qty: 1 1RF Primary Care Provider: Femi Baeza Referrals: Femi Baeza MD [Primary Care Provider] - 3-5 Days if not improving (or return to ER if worsening) Print Language: Georgian Disposition Disposition: Home, Self Care
[2024-02-21] MEDS: Potassium Chloride Oral Tablet 20 MEQ PO (01:22)
[2024-02-21 01:24] VITALS: BP 124/65; PULSE 81; RESP 18; TEMP 36.7; O2SAT 96
== END 2024-02-21 01:25 | disposition home or self-care (01) ==
PROVIDERS: Emergency Provider Emergency Medicine; PCP Internal Medicine; Visit Provider Emergency Medicine
DX: K52.9 Noninfective gastroenteritis and colitis, unspecified (principal); Z87.891 Personal history of nicotine dependence; E87.6 Hypokalemia; I10 Essential (primary) hypertension; E86.0 Dehydration; K21.9 Gastro-esophageal reflux disease without esophagitis
CPT/HCPCS: 80053; 83690; 85025; 96361; 96374; 99282; A4216; J2405

== ENCOUNTER 2024-02-21 10:22 | Emergency (ER) | payer MEDICARE, SELFPAY ==
[2024-02-21 10:22] VITALS: BP 148/78; PULSE 93; RESP 14; TEMP 36.3; O2SAT 99; BMI 24.6
--- NOTE | 2024-02-21 11:09 | CT_ITS ---
STUDY: CT ABDOMEN AND PELVIS WITH CONTRAST REASON FOR EXAM: Female, 79 years old. BRB per rectum earlier today RADIATION DOSAGE (If Supplied By Facility): CTDIvol = ( 18.85 ) mGy, DLP = ( 628.08 ) mGycm TECHNIQUE: IV 100mL Isovue-370 was administered. Transaxial images were obtained from the dome of the diaphragm to the symphysis pubis. Multiplanar coronal and sagittal images were reformatted. The protocol utilizes one or more of the following dose reduction techniques: automated exposure control, adjustment of mA and/or kV according to patient size,and/or use of iterative reconstruction technique. COMPARISON: Prior studies dated: 12/12/2023 and 07/07/2021 FINDINGS: The visualized lung bases are unremarkable. The visualized portions of the heart are within normal limits. Normal liver. The gallbladder is absent and likely surgically removed. Persistent prominent common bile duct measuring up to 13 mm. Normal spleen. Normal pancreas. Normal bilateral adrenal glands. 2 cm complex hypodense lesion. In the right kidney measuring about 2 cm slightly increased in size since previous examination from 2021. Small hyperdense nodule in the lateral aspect of the right kidney measuring about 1 cm essentially unchanged. Right extrarenal pelvis. No evidence hydronephrosis. Large hiatal hernia containing most of the fundus of the stomach. Nonspecific fluid-filled small bowel loops. Standard fluid-filled colon and fecal retention with air in the peripheral aspect of the segments of the colon likely intraluminal. No evidence of intramural air. The appendix is not definitely identified. There is diffuse atherosclerotic calcification of the abdominal aorta, without a demonstrated aneurysm. No retroperitoneal adenopathy. Normal urinary bladder. No pelvic mass. Normal abdominal wall. Levoscoliosis of the lumbar spine and multilevel degenerative changes. CT/Abdomen/Pelvis W IV Cont ONLY IMPRESSION: 1. Nonspecific fluid-filled small bowel loops and colon without evidence of bowel obstruction could be due to enterocolitis. 2. Persistent complex hypodense lesion in the right kidney slightly larger than the previous examinations could be due to slowly growing tumor. Electronically Signed: Roby Patel MD at 12:46 EST ,
--- NOTE | 2024-02-21 11:20 | EDS_ITS ---
HPI History of Present Illness Chief Complaint: GI Bleed Narrative Narrative: Patient is a 79-year-old female with past medical history of diverticular disease, primary hyperparathyroidism, osteoporosis, hypertension who presents to the emergency department with a chief complaint of bright red blood per rectum. Patient states that she was here overnight and was evaluated for nausea vomiting which has been going on for the past few days. States that her son at bedside has been sick with diarrhea as well and similar symptoms. States that this morning when she got up she had a bowel movement and noted that she had diarrhea and was noted to have bright red blood associated with this. States that she noted something was out of her rectum and she pushed this back up she states that she has never had anything that this happen before. States states that she does have some cramping abdominal pain in the lower portion of her abdomen. Patient denies any history of blood thinning medications. Patient states that her last bright red blood per her rectum bowel movement was around 9:45 AM this morning. [facility] Medical History Gait disturbance Diverticular disease Primary hyperparathyroidism Sciatica Age related osteoporosis Bowel obstruction Scoliosis Lumbar radiculopathy Hx of renal cell carcinoma Osteoporosis GERD (gastroesophageal reflux disease) Hypoglycemia HTN (hypertension) Bladder prolapse Home Medications ?Medication ?Instructions ?Recorded ?Last Taken ?Type cholecalciferol (vitamin D3) 25 2,000 unit PO DAILY 12/26/15 Unknown History mcg (1,000 unit) tablet (Vitamin D3) losartan 25 mg tablet 25 mg PO DAILY 12/26/15 Unknown History oxybutynin chloride 5 mg tablet 5 mg PO BID 12/26/15 Unknown History diltiazem HCl 180 mg capsule,24 360 mg PO DAILY 09/08/20 Unknown History hr,extended release lorazepam 0.5 mg tablet 0.5 mg PO DAILY 09/08/20 Unknown History acetaminophen 500 mg tablet 500 mg PO Q6H PRN pain 08/23/22 Unknown History (Tylenol Extra Strength) cetirizine 5 mg tablet 5 mg PO DAILY PRN allergy symptoms 08/23/22 Unknown Hist ory fluticasone propionate 50 1 spray intranasal DAILY 08/23/22 Unknown History mcg/actuation nasal spray,suspension omeprazole 40 mg capsule,delayed 40 mg PO DAILY 08/23/22 Unknown History release sodium chloride 0.65 % nasal spray 1 spray intranasal ONCE 08/23/22 Unknown History aerosol denosumab 60 mg/mL subcutaneous 60 mg subcut [id number] #1 mL 10/03/22 Unknown Rx syringe (Prolia) Lactobacillus rhamnosus GG 20 1 cell PO DAILY 12/16/23 Unknown History billion cell capsule (Probiotic Digestive Care) sennosides 17.2 mg tablet (Senokot 17.2 mg PO QDAY 12/16/23 Unknown History Extra Strength) hydrocodone-acetaminophen 5-325mg 1 tab PO Q6H PRN PRN Pain 3 days 01/13/24 Unknown Rx 5mg-325mg #10 TABLETS phenazopyridine 200 mg tablet 200 mg PO TID #10 tabs 01/13/24 Unknown Rx (Pyridium) amoxicillin 500 mg tablet 500 mg PO TID #30 tabs 01/22/24 Unknown Rx ondansetron 8 mg disintegrating 8 mg PO Q8H PRN nausea and 02/21/24 Unknown Rx tablet vomiting #15 tabs potassium chloride 20 mEq 20 meq PO BID #8 tabs 02/21/24 Unknown Rx tablet,extended release Allergy/AdvReac Type Severity Reaction Status Date / Time lisinopril Allergy Swelling Verified 02/21/24 10:23 esomeprazole (From Nexium) AdvReac Nausea/Vom/ Verified 02/21/24 10:23 Diarrhea Family History Father Alcoholism Brother Alcoholism Mother Arthritis Hypertension Osteoporosis Surgical History History of knee replacement H/O partial nephrectomy Social History Smoking Status: Former smoker alcohol intake: never what type of physical activity do you participate in: bicycling ROS ROS ED ROS Narrative Constitutional: Denies any fevers, chills, headaches, lightness, dizziness Eyes: Denies any changes vision double vision blurry vision Cardiovascular: Denies chest pain or palpitation Respiratory: Denies coughing wheezing shortness of breath Abdomen: Complains of some abdominal cramping, nausea vomiting diarrhea as noted above as well as bright red blood per rectum as noted above denies any dark tarry stools : Denies any urinary symptoms Neurological: Denies any numbness, weakness, tingling Musculoskeletal: Denies back pain Skin: Denies rashes or lesions EXAM Physical Exam Narrative Exam Narrative: General: Patient lying in bed rest comfortably did not appear to be acute distress Head: Atraumatic, normocephalic Eyes: PERRL body, EOMI bilateral, no conjunctival injection noted Neck: Soft, supple, trachea midline Cardiovascular: Regular rate and rhythm no murmurs gallops rubs noted Respiratory: Clear to auscultation bilaterally Abdomen: Soft, nondistended, mild tenderness palpation the left lower quadrant no rebound or guarding on exam, bowel sounds present x 4 Rectal: Rectal exam was performed no evidence of bright red blood per rectum on exam no evidence of rectal prolapse, no evidence of hemorrhoids Extremities: +5/5 strength noted in the bilateral upper and lower extremities, radial pulses +2/4 in the bilateral upper extremities Neurological: Patient following commands knew that she was at [facility] years 2023 Skin: Warm, dry, intact Const Vital Signs: 02/21/24 10:22 02/21/24 12:22 Temperature 97.3 F L Temperature Source Temporal Pulse Rate 93 Respiratory Rate 14 18 Blood Pressure 148/78 H Blood Pressure Mean 101 Pulse Ox 99 Oxygen Delivery Method Room Air MDM MDM MDM Narrative Medical decision making narrative: Patient is a 79-year-old female who presents to the emergency department with a chief complaint of bright red blood per rectum and diarrhea as well as nausea vomiting. Patient will have a workup performed here on the differential diagnose includes but not limited to diverticulosis, internal hemorrhoid, viral gastroenteritis, prolapsed rectum. Once workup is obtained reviewed she will be reevaluated. Patient's blood work from earlier today was reviewed and showed no evidence leukocytosis white blood count normal at 10.2, hemoglobin is 14.2, platelet count normal at 200. Patient sodium was 133, potassium was 3.3, creatinine was normal at 0.66. Patient's AST and ALT were 15 and [address] abdomen pelvis with IV contrast was reviewed and showed nonspecific fluid- filled small bowel loops and colon without evidence of bowel obstruction could be due to enterocolitis. Persistent complex hypodense lesion in the right kidney slightly larger than the previous exams could be due to slowly growing tumor. Patient was given a hard copy of this result and was encouraged to take this to her primary care physician to follow-up on this finding. She voiced understanding of this. Patient while here in the emergency department did not have any bloody bowel movements and once again rectal exam performed showed brown stool fecal occult was positive but on exam there was no gross red blood no black dark tarry stool either. Just prior to discharge patient did have a bowel movement that was liquid in nature but no blood no dark stool noted. Patient was advised to return with worsening symptoms or other concerns. She is advised to continue to use the Zofran that was prescribed to her earlier. She is encouraged to follow-up with her primary care physician. All question concerns answered at bedside she was discharged home in stable condition. Patient and Lopez member at bedside is agreeable this plan. Patient did ambulate here well without any evidence hypoxia or tachycardia she states that she feels at her baseline. Radiography Diagnostic Testing: Clinical Impression(s) from Imaging Studies Abdomen/Pelvis CT 02/21/24 11:09 IMPRESSION: 1. Nonspecific fluid-filled small bowel loops and colon without evidence of bowel obstruction could be due to enterocolitis. 2. Persistent complex hypodense lesion in the right kidney slightly larger than the previous examinations could be due to slowly growing tumor. Electronically Signed: Roby Patel MD at 12:46 EST , Discharge Plan Triage Chief Complaint: GI Bleed ED Provider: Juan Shaffer Dx/Rx/DC Orders Clinical Impression: Gastroenteritis Instructions: ED Understanding Colitis Prescriptions: No Action omeprazole 40 mg capsule,delayed release(DR/EC) 40 mg PO DAILY acetaminophen [Tylenol Extra Strength] 500 mg tablet 500 mg PO Q6H PRN (Reason: pain) cetirizine 5 mg tablet 5 mg PO DAILY PRN (Reason: allergy symptoms) fluticasone propionate 50 mcg/actuation spray,suspension 1 spray intranasal DAILY Rx Instructions: administer into each nostril sodium chloride 0.65 % aerosol,spray 1 spray intranasal ONCE Probiotic Digestive Care 20 billion cell capsule 1 cell PO DAILY Senokot Extra Strength 17.2 mg tablet 17.2 mg PO QDAY amoxicillin 500 mg tablet 500 mg PO TID Qty: 30 0RF losartan 25 MG tablet 25 mg PO DAILY oxybutynin chloride 5 MG tablet 5 mg PO BID cholecalciferol (vitamin D3) [Vitamin D3] 1,000 UNIT tablet 2,000 unit PO DAILY diltiazem HCl 180 mg capsule,extended release 24 hr 360 mg PO DAILY lorazepam 0.5 mg tablet 0.5 mg PO DAILY hydrocodone-acetaminophen 5-325 mg tablet 1 tab PO Q6H PRN PRN (Reason: Pain) 3 Days Qty: 10 0RF phenazopyridine [Pyridium] 200 mg tablet 200 mg PO TID Qty: 10 0RF ondansetron 8 mg tablet,disintegrating 8 mg PO Q8H PRN (Reason: nausea and vomiting) Qty: 15 0RF potassium chloride 20 mEq tablet extended release 20 meq PO BID Qty: 8 0RF Prolia 60 mg/mL syringe 60 mg subcut [id number] Qty: 1 1RF Primary Care Provider: Femi Baeza Referrals: Femi Baeza MD [Primary Care Provider] - Activity Restrictions/Additional Instructions: Follow-up with your primary care physician in the outpatient setting. Use the prescriptions that were provided to you earlier by previous provider as prescribed. Return with worsening symptoms or any other concerns. Take the h gabe copy of your CT result that had the incidental finding on this and show your primary care physician so they can follow-up on this finding. Print Language: Armenian Disposition Disposition: Home, Self Care
--- NOTE | 2024-02-21 12:12 | ED.RN ---
Patient ambulated to bathroom with cane.
[2024-02-21 12:22] VITALS: RESP 18
--- NOTE | 2024-02-21 13:21 | ED.RN ---
Patient ambulated in hallway on RA with pulse ox reading of 96-98%
[2024-02-21 13:50] VITALS: RESP 16; O2SAT 98
[2024-02-21 13:51] VITALS: BP 148/78; PULSE 93; RESP 16; TEMP 36.3; O2SAT 98
== END 2024-02-21 13:56 | disposition home or self-care (01) ==
PROVIDERS: Emergency Provider Emergency Medicine; PCP Internal Medicine; Visit Provider Emergency Medicine
DX: K52.9 Noninfective gastroenteritis and colitis, unspecified (principal); I10 Essential (primary) hypertension; Z87.891 Personal history of nicotine dependence; E21.0 Primary hyperparathyroidism; K21.9 Gastro-esophageal reflux disease without esophagitis
CPT/HCPCS: 74177; 82274; 99283; Q9967

== ENCOUNTER 2024-03-16 20:47 | Emergency (ER) | payer MEDICARE, SELFPAY ==
[2024-03-16 20:47] VITALS: BP 170/91; PULSE 78; RESP 16; TEMP 37.1; O2SAT 98; BMI 23.7
--- NOTE | 2024-03-16 22:01 | RAD_ITS ---
EXAM: XR ABDOMEN, 1 VIEW CLINICAL INDICATION: constipation TECHNIQUE: Frontal supine view of the abdomen/pelvis. This report was created using [employer] report generation technology. COMPARISON: CT abdomen and pelvis, 11/22/2023 FINDINGS: GASTROINTESTINAL TRACT: Moderate to large amount of colonic stool and gas. ORGANS: Normal as visualized. No organomegaly. No abnormal calcifications. BONES/JOINTS: Severe degenerative changes in the spine and apex left scoliosis of the lumbar spine. SOFT TISSUES: No acute pathology. RAD/Abdomen Single View IMPRESSION: Moderate to large amount of colonic stool and gas. Electronically Signed: William Wellington DO at 22:21 EST ,
--- NOTE | 2024-03-16 22:07 | EDS_ITS ---
HPI HPI - GI History of Present Illness Chief Complaint: Constipation Detail of Chief Complaint: Constipation for 3 weeks. Mild rectal bleeding. Informant: patient Abdominal Pain/Flank Pain Onset: - (No abdominal pain.) Nausea/Vomiting/Emesis GI Symptom: Positive for Nausea, Vomiting and - (Since resolved.) Diarrhea/Melena/Hematochezia GI Symptom: Positive for Hematochezia; Negative for Diarrhea or Melena Onset: Today Severity: Mild Associated Symptoms Associated Symptoms: Negative for Dysuria, Frequency or Hematuria Narrative Narrative: 79-year-old female history of hypertension and suspected rectal prolapse. Was seen in emergency department 1220 at that time his nausea and vomiting had hypokalemia. She had a CAT scan at that time that was unremarkable and possible colitis. States she has not had a bowel movement for 3 weeks. She has had intermittent mild rectal bleeding. Ambulation may have a rectal prolapse. Prior similar symptoms: Yes Recent Illness/Hospitalization: No PFSH PFSH Medical History Gait disturbance Diverticular disease Primary hyperparathyroidism Sciatica Age related osteoporosis Bowel obstruction Scoliosis Lumbar radiculopathy Hx of renal cell carcinoma Osteoporosis GERD (gastroesophageal reflux disease) Hypoglycemia HTN (hypertension) Bladder prolapse Home Medications ?Medication ?Instructions ?Recorded ?Last Taken ?Type cholecalciferol (vitamin D3) 25 2,000 unit PO DAILY 12/26/15 Unknown History mcg (1,000 unit) tablet (Vitamin D3) losartan 25 mg tablet 25 mg PO DAILY 12/26/15 Unknown History oxybutynin chloride 5 mg tablet 5 mg PO BID 12/26/15 Unknown History diltiazem HCl 180 mg capsule,24 360 mg PO DAILY 09/08/20 Unknown History hr,extended release lorazepam 0.5 mg tablet 0.5 mg PO DAILY 09/08/20 Unknown History acetaminophen 500 mg tablet 500 mg PO Q6H PRN pain 08/23/22 Unknown History (Tylenol Extra Strength) cetirizine 5 mg tablet 5 mg PO DAILY PRN allergy symptoms 08/23/22 Unknown History fluticasone propionate 50 1 spray intranasal DAILY 08/23/22 Unknown History mcg/actuation nasal spray,suspension omeprazole 40 mg capsule,delayed 40 mg PO DAILY 08/23/22 Unknown History release sodium chloride 0.65 % nasal spray 1 spray intranasal ONCE 08/23/22 Unknown History aerosol denosumab 60 mg/mL subcutaneous 60 mg subcut [id number] #1 mL 10/03/22 Unknown Rx syringe (Prolia) Lactobacillus rhamnosus GG 20 1 cell PO DAILY 12/16/23 Unknown History billion cell capsule (Probiotic Digestive Care) hydrocodone-acetaminophen 5-325mg 1 tab PO Q6H PRN PRN Pain 3 days 01/13/24 Unknown Rx 5mg-325mg #10 TABLETS ondansetron 8 mg disintegrating 8 mg PO Q8H PRN nausea and 02/21/24 Unknown Rx tablet vomiting #15 tabs docusate sodium 100 mg capsule 100 mg PO DAILY 03/16/24 Unknown History (Colace) Allergy/AdvReac Type Severity Reaction Status Date / Time lisinopril Allergy Swelling Verified 03/16/24 20:50 esomeprazole (From Nexium) AdvReac Nausea/Vom/ Verified 03/16/24 20:50 Diarrhea Family History Father Alcoholism Brother Alcoholism Mother Arthritis Hypertension Osteoporosis Surgical History History of knee replacement H/O partial nephrectomy Social History Smoking Status: Former smoker alcohol intake: never what type of physical activity do you participate in: bicycling ROS ROS ED ROS Narrative Constipation. Rectal bleeding. Constitutional Constitutional ED: Denies chills or fever(s) ENT ENT ED: Denies ear pain Cardiovascular Cardiovascular: Denies chest pain Respiratory/Chest Respiratory/Chest: Reports cough; Denies dyspnea or dyspnea on exertion Gastrointestinal Gastrointestinal: Reports constipation; Denies abdominal pain, diarrhea or melena Genitourinary Genitourinary ED: Denies dysuria or hematuria Musculoskeletal Musculoskeletal: Denies arthralgias Integumentary Denies abscess Neurologic Neurologic: Denies headache(s) Psychiatric Psychiatric: Denies anxiety Endocrine Endocrinology: Denies polydipsia Hematologic/Lymphatic Hematologic/Lymphatic: Denies easy bleeding Allergic/Immunologic Allergic/Immunologic ED: Denies mouth swelling EXAM Physical Exam Narrative Exam Narrative: 79-year-old female no acute distress. Vital signs stable afebrile. Sitting upright in bed. Son at bedside. HEENT exam moist mucous membranes. Pupils round reactive light. Neck nontender. Lungs clear to auscultation bilaterally. Heart regular rhythm no murmur. Chest wall ribs nontender. Abdomen soft nontender. No peritoneal signs. Moving all 4 extremities. Nontender no edema. Back nontender. Neurologically she is awake and alert no focal motor deficits. Const Vital Signs: 03/16/24 20:47 Temperature 98.7 F Temperature Source Oral Pulse Rate 78 Respiratory Rate 16 Blood Pressure 170/91 H Blood Pressure Mean 117 Pulse Ox 98 Oxygen Delivery Method Room Air Positive well nourished and well developed; Negative for cachectic, contractures or unkempt General Appearance ED: well developed and NAD; Negative for unkempt, cachectic, contractures or pallor Nutritional Appearance: Negative for cachectic HEENT Reports moist mucous membranes normocephalic and atraumatic Eyes PERRL and EOMs intact bilaterally Neck no lymphadenopathy, supple and no JVD Resp normal respiratory effort and clear to auscultation bilaterally Effort and Inspection: Negative for respiratory distress Auscultation: Negative for rales, rhonchi, wheezes or diminished lung sounds Cardio regular rate, regular rhythm, S1 normal heart sound, S2 normal heart sound and no murmurs Rate: Negative for bradycardia or tachycardic Rhythm: Negative for abnormal rhythm GI non-tender, non-distended and no masses Inspection: Negative for abdominal distention Palpation: soft; Negative for tender, guarding or rebound tenderness present Back/Spine no CVA tenderness General Back: Negative for CVA tenderness Cervical Spine: Negative for cervical spine tenderness Thoracic Spine / Upper Back: Negative for thoracic spinal tenderness Lumbar Spine / Lower Back: Negative for lumbar spinal tenderness Coccyx: Negative for other Extremity full ROM General Extremety ED: Negative for edema or tenderness General Extremity: Negative for edema Neuro CN's II-XII intact bilaterally and moves all extremities Sensorium / Orientation: alert, oriented to person, oriented to place and oriented to time; Negative for orientation impaired, confused, lethargic or stuporous Motor Exam: strength 5/5 throughout Psych mental status grossly normal and thought process normal Appearance: Negative for unkempt Attitude: No agitated Mood & Affect: Negative for depressed, anxious or tearful Skin no wounds General Skin Exam: Negative for jaundice or pallor Lesions: no lesions Rashes: no rashes Trauma: Negative for abrasion Nails: Negative for discolored MDM MDM MDM Narrative Medical decision making narrative: 79-year-old female with reported 2 to 3 weeks of constipation. Intermittent rectal bleeding of bright red blood. No clots. She is on no blood thinners. Denies abdominal pain. Recently was seen about 3 weeks ago had hypokalemia. Screening labs and a KUB to be obtained. She had a recent CT of her abdomen. Repeat exam patient doing well at 11:15 PM. I checked her anal area currently there is no prolapse or any active bleeding. She and I went over her labs and x-ray. Should be treated for constipation. Discharged home with 2 L of GoLytely. She has a follow-up appoint with her primary care physician on Saturday Dr. Femi Baeza. She may have a rectal prolapse but does not have it at this time. History & Record Review Discussion w/independent historian: Patient and Family Additional record(s) reviewed:: Prior inpatient record, Prior outpatient record, Prior ED visit and Prior labs Lab Data Attestation: I reviewed the patient's lab results. Lab results narrative: CBC normal. White count 8. H&H 13.3 and 40. Platelets 211. Electrolytes show sodium 134. Gap 5. Normal BUN of 13. Creatinine 0.6. Glucose 115. KUB shows a moderate amount of stool consistent with constipation. Significant scoliosis. Labs: Laboratory Results - last 24 hr 03/16/24 22:17 WBC 8.5 RBC 4.60 Hgb 13.3 Hct 40.1 MCV 87.2 MCH 28.9 MCHC 33.2 RDW Std Deviation 41.6 RDW Coeff of Sharron 13.3 Plt Count 211 MPV 10.0 Immature Gran % (Auto) 0.400 Neut % (Auto) 79.2 H Lymph % (Auto) 11.6 L [place] % (Auto) 8.2 Eos % (Auto) 0.1 Baso % (Auto) 0.5 Absolute Neuts (auto) 6.8 Absolute Lymphs (auto) 0.99 Nucleated RBC % 0 Sodium 134 L Potassium 4.2 Chloride 102 Carbon Dioxide 27.0 Anion Gap 5 BUN 13 Creatinine 0.68 Estim Creat Clear Calc 50.05 Est GFR (MDRD) Af Amer 108 Est GFR (MDRD) Non-Af 89 BUN/Creatinine Ratio 19.1 Glucose 115 H Calcium 10.1 Radiography Diagnostic Testing: Clinical Impression(s) from Imaging Studies KUB X-Ray 03/16/24 22:01 IMPRESSION: Moderate to large amount of colonic stool and gas. Electronically Signed: William Samuel Wellington DO at 22:21 EST , KUB, 2 views, interpreted myself and radiologist. Shows constipation with increased stool in the rectum. No bowel obstruction. No free air. Chronic scoliosis. Discharge Plan Triage Chief Complaint: Constipation ED Provider: Librado Vasquez Dx/Rx/DC Orders Clinical Impression: Acute constipation, Rectal bleeding Instructions: ED Constipation (Adult) Prescriptions: No Action omeprazole 40 mg capsule,delayed release(DR/EC) 40 mg PO DAILY acetaminophen [Tylenol Extra Strength] 500 mg tablet 500 mg PO Q6H PRN (Reason: pain) cetirizine 5 mg tablet 5 mg PO DAILY PRN (Reason: allergy symptoms) fluticasone propionate 50 mcg/actuation spray,suspension 1 spray intranasal DAILY Rx Instructions: administer into each nostril sodium chloride 0.65 % aerosol,spray 1 spray intranasal ONCE Probiotic Digestive Care 20 billion cell capsule 1 cell PO DAILY losartan 25 MG tablet 25 mg PO DAILY oxybutynin chloride 5 MG tablet 5 mg PO BID cholecalciferol (vitamin D3) [Vitamin D3] 1,000 UNIT tablet 2,000 unit PO DAILY diltiazem HCl 180 mg capsule,extended release 24 hr 360 mg PO DAILY lorazepam 0.5 mg tablet 0.5 mg PO DAILY hydrocodone-acetaminophen 5-325 mg tablet 1 tab PO Q6H PRN PRN (Reason: Pain) 3 Days Qty: 10 0RF ondansetron 8 mg tablet,disintegrating 8 mg PO Q8H PRN (Reason: nausea and vomiting) Qty: 15 0RF docusate sodium [Colace] 100 mg capsule 100 mg PO DAILY Prolia 60 mg/mL syringe 60 mg subcut [id number] Qty: 1 1RF Primary Care Provider: Femi Baeza Referrals: Femi Baeza MD [Primary Care Provider] - Keep Valentino appointment Activity Restrictions/Additional Instructions: Your labs look good. Your x-ray was consistent with constipation. Drink an 8 ounce glass of GoLytely starting in the morning every hour until you start having significant bowel movements. Follow-up with your doctors appointment on Saturday. Return to emergency department if you are feeling worse or you develop heavy rectal bleeding. Currently there is no significant signs of blood loss. Your blood counts were normal. Print Language: Mohawk Disposition Disposition: Home, Self Care
[2024-03-16 22:29] LABS: Absolute Lymphocyte Count 0.99 X10^3/uL (0.83-4.51); Absolute Neutrophil Count 6.8 X10^3/uL (2.0-7.7); Basophil# 0.04 X10^3/uL; Basophil% 0.5 % (0-1); Eosinophil# 0.01 X10^3/uL; Eosinophils% 0.1 % (0-5); Hematocrit 40.1 % (37-47); Hemoglobin 13.3 g/dL (12.0-15.0); Lymphocyte # 0.99 X10^3/ul (0.83-4.51); Lymphocyte % 11.6 % (19-41); Mean Corp Hgb Conc 33.2 g/dL (32-36); Mean Corpuscular Hgb 28.9 pg (27.0-32.0); Mean Corpuscular Volume 87.2 fL (81-99); Monocyte% 8.2 % (0-10); NRBC Flagged by Analyzer 0 % (0-5); Neutrophil # 6.76 X10^3/uL (2.7-7.7); Neutrophil % 79.2 % (47-70); Platelet Count 211 K/mm3 (150-450); RBC Distribution Width CV 13.3 % (11.6-14.6); RBC Distribution Width SD 41.6 fl (35.1-43.9); White Blood Count 8.5 K/mm3 (4.4-11.0)
[2024-03-16 22:42] LABS: Anion Gap 5 (5-15); BUN 13 mg/dL (7-18); BUN/Creat Ratio 19.1 RATIO (10-20); Calcium,Total 10.1 mg/dL (8.5-10.1); Chloride 102 mmol/L (98-107); Creatinine, Serum 0.68 mg/dL (0.55-1.02); EST Glomerular Filtration Rate 89 mL/min (>60); Est Glom Filt Rate - Afr Amer 108 mL/min (>60); Estimated Creatinine Clearance 50.05 ml/min; Glucose 115 mg/dL (74-106); Potassium 4.2 mmol/L (3.5-5.1); Sodium Level 134 mmol/L (136-145)
[2024-03-16] MEDS: Electrolyte Solution/Peg's 4000 ML 2000 ML PO (23:57)
== END 2024-03-16 23:59 | disposition home or self-care (01) ==
PROVIDERS: Emergency Provider Emergency Medicine; PCP Internal Medicine; Visit Provider Emergency Medicine
DX: K59.00 Constipation, unspecified (principal); K62.5 Hemorrhage of anus and rectum; I10 Essential (primary) hypertension; Z87.891 Personal history of nicotine dependence; E87.6 Hypokalemia; K21.9 Gastro-esophageal reflux disease without esophagitis; M41.9 Scoliosis, unspecified
CPT/HCPCS: 74018; 80048; 85025; 99282; A4216

== ENCOUNTER 2024-03-20 08:56 | Emergency (ER) | payer MEDICARE, SELFPAY ==
[2024-03-20 08:57] VITALS: PULSE 89
[2024-03-20 08:58] VITALS: BP 178/102; PULSE 109; RESP 18; TEMP 36.2; O2SAT 100
--- NOTE | 2024-03-20 09:41 | ED.VIS.GI ---
HPI HPI - GI History of Present Illness Chief Complaint: GI Bleed Informant: patient Abdominal Pain/Flank Pain Onset: Days Context: Gradual Onset Timing: Intermittent Current Severity: Mild Maximum Severity: Mild Nausea/Vomiting/Emesis GI Symptom: Negative for Nausea or Vomiting Diarrhea/Melena/Hematochezia GI Symptom: Positive for Hematochezia and - (Constipation. Now liquid stools. Intermittent rectal bleeding.); Negative for Diarrhea or Melena Stool Quality: Positive for Loose Severity: Mild Associated Symptoms Associated Symptoms: Negative for Dysuria, Frequency or Hematuria Narrative Narrative: 79-year-old female history of hypertension. Recently seen emergency department for constipation. Recently by her primary care physician was placed on stool softeners. In the emergency department she was seen labs are negative. She was placed on GoLytely. States she had no significant bowel movement for weeks. Thinks she might be having rectal prolapse. She has a history of bladder prolapse. Says she is having intermittent rectal bleeding. She is not on any blood thinners. Prior similar symptoms: Yes Recent Illness/Hospitalization: No PFSH PFSH Medical History Gait disturbance Diverticular disease Primary hyperparathyroidism Sciatica Age related osteoporosis Bowel obstruction Scoliosis Lumbar radiculopathy Hx of renal cell carcinoma Osteoporosis GERD (gastroesophageal reflux disease) Hypoglycemia HTN (hypertension) Bladder prolapse Home Medications ?Medication ?Instructions ?Recorded ?Last Taken ?Type cholecalciferol (vitamin D3) 25 2,000 unit PO DAILY 12/26/15 Unknown History mcg (1,000 unit) tablet (Vitamin D3) losartan 25 mg tablet 25 mg PO DAILY 12/26/15 Unknown History oxybutynin chloride 5 mg tablet 5 mg PO BID 12/26/15 Unknown History diltiazem HCl 180 mg capsule,24 360 mg PO DAILY 09/08/20 Unknown History hr,extended release lorazepam 0.5 mg tablet 0.5 mg PO DAILY 09/08/20 Unknown History acetaminophen 500 mg tablet 500 mg PO Q6H PRN pain 08/23/22 Unknown History (Tylenol Extra Strength) cetirizine 5 mg tablet 5 mg PO DAILY PRN allergy symptoms 08/23/22 Unknown History fluticasone propionate 50 1 spray intranasal DAILY 08/23/22 Unknown History mcg/actuation nasal spray,suspension omeprazole 40 mg capsule,delayed 40 mg PO DAILY 08/23/22 Unknown History release sodium chloride 0.65 % nasal spray 1 spray intranasal ONCE 08/23/22 Unknown History aerosol denosumab 60 mg/mL subcutaneous 60 mg subcut [id number] #1 mL 10/03/22 Unknown Rx syringe (Prolia) Lactobacillus rhamnosus GG 20 1 cell PO DAILY 12/16/23 Unknown History billion cell capsule (Probiotic Digestive Care) hydrocodone-acetaminophen 5-325mg 1 tab PO Q6H PRN PRN Pain 3 days 01/13/24 Unknown Rx 5mg-325mg #10 TABLETS ondansetron 8 mg disintegrating 8 mg PO Q8H PRN nausea and 02/21/24 Unknown Rx tablet vomiting #15 tabs docusate sodium 100 mg capsule 100 mg PO DAILY 03/16/24 Unknown History (Colace) Allergy/AdvReac Type Severity Reaction Status Date / Time lisinopril Allergy Swelling Verified 03/20/24 08:57 esomeprazole (From Nexium) AdvReac Nausea/Vom/ Verified 03/20/24 08:57 Diarrhea Family History Father Alcoholism Brother Alcoholism Mother Arthritis Hypertension Osteoporosis Surgical History History of knee replacement H/O partial nephrectomy Social History Smoking Status: Former smoker alcohol intake: never what type of physical activity do you participate in: bicycling ROS ROS ED ROS Narrative Constipation. Rectal bleeding. Constitutional Constitutional ED: Denies chills or fever(s) ENT ENT ED: Denies ear pain Cardiovascular Cardiovascular: Denies chest pain Respiratory/Chest Respiratory/Chest: Denies cough or dyspnea Gastrointestinal Gastrointestinal: Reports constipation; Denies abdominal pain Genitourinary Genitourinary ED: Denies dysuria or hematuria Musculoskeletal Musculoskeletal: Denies arthralgias Integumentary Denies abscess Neurologic Neurologic: Denies headache(s) Psychiatric Psychiatric: Denies anxiety Endocrine Endocrinology: Denies polydipsia Hematologic/Lymphatic Hematologic/Lymphatic: Denies easy bleeding Allergic/Immunologic Allergic/Immunologic ED: Denies mouth swelling or tongue swelling EXAM Physical Exam Narrative Exam Narrative: Well-appearing 79-year-old female. Vital signs are stable afebrile. She does not look septic toxic. She is no distress. Accompanied by her son. H EENT exam pupils round react light. Moist mucous membranes. Lungs clear to auscultation. Heart regular rhythm rate about 100 no murmur. Chest wall ribs nontender. Abdomen soft nontender. Normal bowel sounds without peritoneal signs. Moving all 4 extremities. Nontender no edema. Neurologically she is awake and alert. Answering questions following commands. No focal motor deficits. Const Vital Signs: 03/20/24 08:57 03/20/24 08:58 Temperature 97.2 F L Temperature Source Temporal Pulse Rate 89 109 H Respiratory Rate 18 Blood Pressure 178/102 H Blood Pressure Mean 127 Pulse Ox 100 Oxygen Delivery Method Room Air Positive well nourished and well developed; Negative for cachectic, contractures or unkempt General Appearance ED: well developed and NAD; Negative for unkempt, cachectic, contractures or pallor Nutritional Appearance: Negative for cachectic HEENT Reports moist mucous membranes normocephalic and atraumatic Eyes PERRL and EOMs intact bilaterally General Eye ED: Negative for pale conjunctiva or scleral icterus Neck no lymphadenopathy, supple and no JVD General: Negative for tenderness Resp normal respiratory effort and clear to auscultation bilaterally Effort and Inspection: Negative for respiratory distress Auscultation: Negative for rales, rhonchi or wheezes Cardio regular rate, regular rhythm, S1 normal heart sound, S2 normal heart sound and no murmurs GI non-tender, non-distended and no masses GI Narrative: Currently she has liquid stool coming from her rectum. There is no gross blood. There is no melena or black stool. Currently there is no prolapse. Palpation: soft; Negative for tender, guarding or rebound tenderness present Back/Spine no CVA tenderness General Back: Negative for CVA tenderness Cervical Spine: Negative for cervical spine tenderness Thoracic Spine / Upper Back: Negative for thoracic spinal tenderness Lumbar Spine / Lower Back: Negative for lumbar spinal tenderness Extremity full ROM General Extremety ED: Negative for edema or tenderness General Extremity: Negative for edema Neuro CN's II-XII intact bilaterally and moves all extremities Sensorium / Orientation: alert, oriented to person, oriented to place and oriented to time; Negative for orientation impaired, confused or lethargic Motor Exam: strength 5/5 throughout Psych mental status grossly normal and thought process normal Appearance: Negative for unkempt Attitude: No agitated Mood & Affect: Negative for depressed, anxious or tearful Skin no wounds General Skin Exam: Negative for jaundice or pallor Lesions: no lesions Rashes: no rashes MDM MDM MDM Narrative Medical decision making narrative: 79-year-old recent constipation. Now liquid stools with rectal bleeding. She thinks she might be having rectal prolapse she does not have a rectal prolapse at this time on exam. Currently there is no blood or active bleeding. I CBC will be checked and compared to the labs that she had done recently. Repeat exam patient doing well at 10:49 AM. Her labs look better than they did on her most recent visit. Her blood counts are actually higher in her normal range. She does not have any signs of a rectal prolapse currently. Should be discharged home with outpatient follow-up with her primary care physician. Patient is comfortable being discharged to home. She saw her primary care physician earlier this week and has an appointment to see Dr. Arroyo the GI doc next week. They can set her up with an endoscopy due to her rectal bleeding if need be. Patient is comfortable with the plan. History & Record Review Discussion w/independent historian: Patient Additional record(s) reviewed:: Prior inpatient record, Prior outpatient record, Prior ED visit and Prior labs Lab Data Attestation: I reviewed the patient's lab results. Lab results narrative: CBC shows a white count of 6. H&H of 14.444. Hemoglobin is actually higher than the last visit. Electrolytes show a gap of 7. Normal BUN of 10 and creatinine 0.75. Her glucose is 115. Labs: Laboratory Results - last 24 hr 03/20/24 09:50 WBC 6.7 RBC 5.06 Hgb 14.4 Hct 44.4 MCV 87.7 MCH 28.5 MCHC 32.4 RDW Std Deviation 42.5 RDW Coeff of Sharron 13.3 Plt Count 242 MPV 9.9 Immature Gran % (Auto) 0.300 Neut % (Auto) 76.1 H Lymph % (Auto) 13.8 L [place] % (Auto) 9.1 Eos % (Auto) 0.1 Baso % (Auto) 0.6 Absolute Neuts (auto) 5.1 Absolute Lymphs (auto) 0.92 Nucleated RBC % 0 Sodium 138 Potassium 4.0 Chloride 101 Carbon Dioxide 30.0 Anion Gap 7 BUN 10 Creatinine 0.75 Estim Creat Clear Calc 50.05 Est GFR (MDRD) Af Amer 97 Est GFR (MDRD) Non-Af 80 BUN/Creatinine Ratio 13.4 Glucose 115 H Calcium 10.3 H Discharge Plan Triage Chief Complaint: GI Bleed ED Provider: Librado Vasquez Dx/Rx/DC Orders Clinical Impression: Acute constipation, Bright red rectal bleeding Instructions: ED Constipation (Adult), ED Lower GI Bleeding (Stable) Prescriptions: No Action omeprazole 40 mg capsule,delayed release(DR/EC) 40 mg PO DAILY acetaminophen [Tylenol Extra Strength] 500 mg tablet 500 mg PO Q6H PRN (Reason: pain) cetirizine 5 mg tablet 5 mg PO DAILY PRN (Reason: allergy symptoms) fluticasone propionate 50 mcg/actuation spray,suspension 1 spray intranasal DAILY Rx Instructions: administer into each nostril sodium chloride 0.65 % aerosol,spray 1 spray intranasal ONCE Probiotic Digestive Care 20 billion cell capsule 1 cell PO DAILY losartan 25 MG tablet 25 mg PO DAILY oxybutynin chloride 5 MG tablet 5 mg PO BID cholecalciferol (vitamin D3) [Vitamin D3] 1,000 UNIT tablet 2,000 unit PO DAILY diltiazem HCl 180 mg capsule,extended release 24 hr 360 mg PO DAILY lorazepam 0.5 mg tablet 0.5 mg PO DAILY hydrocodone-acetaminophen 5-325 mg tablet 1 tab PO Q6H PRN PRN (Reason: Pain) 3 Days Qty: 10 0RF ondansetron 8 mg tablet,disintegrating 8 mg PO Q8H PRN (Reason: nausea and vomiting) Qty: 15 0RF docusate sodium [Colace] 100 mg capsule 100 mg PO DAILY Prolia 60 mg/mL syringe 60 mg subcut [id number] Qty: 1 1RF Primary Care Provider: Femi Baeza Referrals: Krzysztof Arroyo DO [Med Staff - Active Staff] - Keep Valentino appointment Femi Baeza MD [Primary Care Provider] - As Needed Activity Restrictions/Additional Instructions: Use [id number] magnesium citrate for your constipation. Follow-up with your appointment with Dr. Arroyo the GI doctor next week for further evaluation. If need be for the rectal bleeding they can get you set up for a colonoscopy. Currently there is no signs of a rectal prolapse if you are having a rectal prolapse he would have to follow-up with a general surgeon for that to determine if it can be surgically repaired. Print Language: Panamanian Disposition Disposition: Home, Self Care
[2024-03-20 09:54] VITALS: BMI 23.8
[2024-03-20 10:05] LABS: Absolute Lymphocyte Count 0.92 X10^3/uL (0.83-4.51); Absolute Neutrophil Count 5.1 X10^3/uL (2.0-7.7); Basophil# 0.04 X10^3/uL; Basophil% 0.6 % (0-1); Eosinophil# 0.01 X10^3/uL; Eosinophils% 0.1 % (0-5); Hematocrit 44.4 % (37-47); Hemoglobin 14.4 g/dL (12.0-15.0); Lymphocyte # 0.92 X10^3/ul (0.83-4.51); Lymphocyte % 13.8 % (19-41); Mean Corp Hgb Conc 32.4 g/dL (32-36); Mean Corpuscular Hgb 28.5 pg (27.0-32.0); Mean Corpuscular Volume 87.7 fL (81-99); Mean Platelet Vol. 9.9 fl (6.2-12.0); Monocyte# 0.61 X10^3/uL; Monocyte% 9.1 % (0-10); NRBC Flagged by Analyzer 0 % (0-5); Neutrophil # 5.07 X10^3/uL (2.7-7.7); Neutrophil % 76.1 % (47-70); Platelet Count 242 K/mm3 (150-450); RBC Distribution Width CV 13.3 % (11.6-14.6); RBC Distribution Width SD 42.5 fl (35.1-43.9); Red Blood Count 5.06 M/mm3 (4.2-5.4); White Blood Count 6.7 K/mm3 (4.4-11.0)
[2024-03-20 10:18] LABS: Anion Gap 7 (5-15); BUN 10 mg/dL (7-18); BUN/Creat Ratio 13.4 RATIO (10-20); Calcium,Total 10.3 mg/dL (8.5-10.1); Chloride 101 mmol/L (98-107); Creatinine, Serum 0.75 mg/dL (0.55-1.02); EST Glomerular Filtration Rate 80 mL/min (>60); Est Glom Filt Rate - Afr Amer 97 mL/min (>60); Estimated Creatinine Clearance 50.05 ml/min; Glucose 115 mg/dL (74-106); Sodium Level 138 mmol/L (136-145)
[2024-03-20 10:57] VITALS: BP 154/98; PULSE 84; RESP 18; O2SAT 98
[2024-03-20 11:00] VITALS: BP 154/98; PULSE 84; RESP 18; TEMP 36.4; O2SAT 98
== END 2024-03-20 11:01 | disposition home or self-care (01) ==
PROVIDERS: Emergency Provider Emergency Medicine; PCP Internal Medicine; Visit Provider Emergency Medicine
DX: K62.5 Hemorrhage of anus and rectum (principal); Z87.891 Personal history of nicotine dependence; K59.00 Constipation, unspecified; I10 Essential (primary) hypertension; K21.9 Gastro-esophageal reflux disease without esophagitis
CPT/HCPCS: 80048; 85025; 99283; A4216

== ENCOUNTER 2024-03-30 10:26 | Day surgery (SDC) | payer MEDICARE, SELFPAY ==
[2024-03-30] VITALS (8 sets, daily range): BP systolic 96–133; BP diastolic 55–66; PULSE 54–90; RESP 14–16; TEMP 36.1–36.4; O2SAT 97–100; BMI 22.3
--- NOTE | 2024-03-30 10:31 | PCM.HP.STD ---
HPI - General General Date of Admission: 03/30/24 Date of Service: 03/30/24 Chief Complaint: Lower GI bleeding HPI Narrative Chief Complaint: rectal bleeding, suspected prolapse 79-year-old who presents for evaluation of lower GI bleeding. She is also been experiencing some diarrhea. [facility] ED 02.21.24 w/ watery diarrhea followed by n/v for 24 hours. Work up mostly unremarkable. Suspected viral gastroenteritis. Discharged after IV fluids and potassium repletion. CT abd/pelvis 02.21.24; 1. Nonspecific fluid-filled small bowel loops and colon without evidence of bowel obstruction could be due to enterocolitis. 2. Persistent complex hypodense lesion in the right kidney slightly larger than the previous examinations could be due to slowly growing tumor. [facility] ED 03.16.24; with no bowel movement for 3 weeks and mild intermittent rectal bleeding. [facility] 03.16.24; Moderate to large amount of colonic stool and gas. [facility] ED 03.20.24 with constipation and suspected rectal prolapse per pt. Normal work up. Physical exam with no indication of rectal prolapse. OV 03.25.24 Pt continues to have issues with constipation. SHe has not had a full bm since the end of February 2024. She has abd a total of four episodes bleeding from her rectum with something falling out. She is able to reduce it back to her rectum. These episodes of bleeding scare her. She has never had anything like this before. At her last ED visit, she was given golytley which she said did not give her a complete bm. She has never had any constipation prior to when this started in February. Last colonoscopy was over [address] Harden at [facility]. She has been afraid to eat to avoid having a bm. [facility] Medical History Wears glasses Cancer Anxiety Ambulates with cane History of renal disease Bladder disease History of hiatal hernia Gastric reflux Former smoker Gait disturbance Diverticular disease Primary hyperparathyroidism Sciatica Age related osteoporosis Bowel obstruction Scoliosis Lumbar radiculopathy Hx of renal cell carcinoma Osteoporosis GERD (gastroesophageal reflux disease) Hypoglycemia HTN (hypertension) Bladder prolapse Home Medications ?Medication ?Instructions ?Recorded ?Last Taken ?Type cholecalciferol (vitamin D3) 25 2,000 unit PO DAILY 12/26/15 Unknown History mcg (1,000 unit) tablet (Vitamin D3) losartan 25 mg tablet 25 mg PO DAILY 12/26/15 Unknown History oxybutynin chloride 5 mg tablet 5 mg PO BID 12/26/15 Unknown History diltiazem HCl 180 mg capsule,24 360 mg PO DAILY 09/08/20 Unknown History hr,extended release lorazepam 0.5 mg tablet 0.5 mg PO DAILY 09/08/20 Unknown History acetaminophen 500 mg tablet 500 mg PO Q6H PRN pain 08/23/22 Unknown History (Tylenol Extra Strength) cetirizine 5 mg tablet 5 mg PO DAILY PRN allergy symptoms 08/23/22 Unknown History fluticasone propionate 50 1 spray intranasal DAILY 08/23/22 Unknown History mcg/actuation nasal spray,suspension omeprazole 40 mg capsule,delayed 40 mg PO DAILY 08/23/22 Unknown History release sodium chloride 0.65 % nasal spray 1 spray intranasal ONCE 08/23/22 Unknown History aerosol denosumab 60 mg/mL subcutaneous 60 mg subcut [id number] #1 mL 10/03/22 Unknown Rx syringe (Prolia) Lactobacillus rhamnosus GG 20 1 cell PO DAILY 12/16/23 Unknown History billion cell capsule (Probiotic Digestive Care) ondansetron 8 mg disintegrating 8 mg PO Q8H PRN nausea and 02/21/24 Unknown Rx tablet vomiting #15 tabs docusate sodium 100 mg capsule 100 mg PO TID #90 caps 03/25/24 Unknown Rx Allergy/AdvReac Type Severity Reaction Status Date / Time lisinopril Allergy Swelling Verified 03/20/24 08:57 esomeprazole (From Nexium) AdvReac Nausea/Vom/ Verified 03/20/24 08:57 Diarrhea Family History Father Alcoholism Brother Alcoholism Mother Arthritis Hypertension Osteoporosis Surgical History History of tubal ligation History of cholecystectomy History of knee replacement H/O partial nephrectomy Social History Smoking Status: Former smoker alcohol intake: never what type of physical activity do you participate in: bicycling ROS Constitutional Constitutional: Denies fatigue, fever(s), poor appetite, weight gain or weight loss Gastrointestinal Gastrointestinal: Denies belching, bloating, change in bowel habits, change in stool character, chewing difficulty, coffee ground emesis, constipation, cramping, diarrhea, dyspepsia, dysphagia, early satiety, excessive flatus, fecal incontinence, heartburn, hematemesis, hematochezia, hemorrhoids, loose stools, melena, nausea, odynophagia, rectal bleeding, tenesmus, vomiting or weight changes Physical Exam Const alert, oriented x3, no apparent distress and healthy appearing General Appearance: cooperative GI normal to inspection, nondistended, normoactive bowel sounds, soft to palpation, non-tender and non-distended Percussion: normal to percussion Rectal Exam: deferred Assessment & Plan Assessment/Plan (1) Diarrhea: QUALIFIERS: Diarrhea type: unspecified type Qualified Code(s): R19.7 - Diarrhea, unspecified (2) GI bleed: PLAN: Assessment and Plan Assessment and Plan (1) Bright red rectal bleeding: Status: Acute Plan: This is a 79 yo female pt here today for evaluation of possible rectal prolapse and rectal bleeding. This started February 2024 with diarrhea which then led to the first episode of prolapse and bleeding. This has happened 4 times. Each time she is able to reduce it and is not causing severe pain. I advised if she is ever unable to reduce it or is in a lot of pain she should present to the ED. She will undergo colonoscopy to assess for colitis, prolapse or malignancy. She is having new constipation since February 2024. She has not had a complete bm since late 2023. She will take Colace 100 mg TID, in the mean time. -Colonoscopy -Colace 100 mg TID -f/u after procedure (2) Acute constipation: Status: Acute Medications: New docusate sodium 100 mg PO TID 90 caps 2RF
--- NOTE | 2024-03-30 11:19 | PCM.PRE.AN2 ---
ASA Classification* ASA Classification ASA Classification: 3 Assessment & Plan Anesthesia* Anesthesia Assessment Anesthesia Assessment: Discussed sedation and/or anesthesia options, risks, benefits, and alternatives with patient/parents/legal guardian/POA. Questions invited. The patient/parents/legal guardian/POA seems to understand and agrees to proceed with anesthesia plan. Reviewed the physical assessment, medical history, allergy history and patient home medications list prior to surgery/procedure/anesthetic and documented any changes. Performed airway and anesthesia risk assessments. Anesthesia Type Anesthesia Type: MAC Anesthesia Focused Assessment* Temperature: 97.4 F Pulse Rate: 90 Blood Pressure: 133/66 Respiratory Rate: 16 Pulse Ox: 100 Oxygen Delivery Method: Room Air Airway Assessment Mouth opens: >3 cm Mallampati Score: II Teeth Condition: Intact Neck Range of motion (ROM): Full ROM Focused Labs Anesthesia Preop lab: CBC WBC 6.7 K/mm3 (4.4-11.0) 03/20/24 09:50 RBC 5.06 M/mm3 (4.2-5.4) 03/20/24 09:50 Hgb 14.4 g/dL (12.0-15.0) 03/20/24 09:50 Hct 44.4 % (37-47) 03/20/24 09:50 Plt Count 242 K/mm3 (150-450) 03/20/24 09:50 CHEMISTRY Potassium 4.0 mmol/L (3.5-5.1) 03/20/24 09:50 Sodium 138 mmol/L (136-145) 03/20/24 09:50 Magnesium 1.9 mg/dL (1.6-2.6) 11/18/21 18:20 BUN 10 mg/dL (7-18) 03/20/24 09:50 Creatinine 0.75 mg/dL (0.55-1.02) 03/20/24 09:50 Glucose 115 mg/dL (74-106) H 03/20/24 09:50 COAG Pre-Assessment Diagnosis/Proposed Procedure Planned Operative Procedure(s): COLONOSCOPY Anesthesia History Anesthesia History - natural resource manager: Anesthesia History - natural resource manager Hx Hospitalization No 03/27/24 10:41 Any Problems With Anesthesia No 03/27/24 10:41 Cholinesterase deficiency No 03/27/24 10:41 You/Your Family Experience No 03/27/24 10:41 fever (hyperthermia) with Relationship Recent Exposure to Contagious No 03/30/24 10:46 Disease Does patient have nerve No 03/27/24 10:41 stimulator Patient instructed to have device shut off --Does patient have Pacemaker No 03/30/24 10:46 or ICD? When Was Last Pacemaker Check QUESTION #4 FULL TEXT: You/Your Family Experience fever (hyperthermia) with Anesthesia Last Oral Intake Last Oral intake: Last Oral Intake NPO since 08:30 03/30/24 10:46 Meds taken in AM with sips of water? Meds patient instructed to take am of surgery PONV PONV - natural resource manager: PONV - natural resource manager Female Yes 03/27/24 10:41 HX of Motion Sickness Yes 03/27/24 10:41 HX of N/V After Surgery Yes 03/27/24 10:41 Non-Smoker Yes 03/27/24 10:41 Duration of Surgery greater No 03/27/24 10:41 than 60 minutes Number of Risk Factors 4 03/27/24 10:41 PONV Score Severe Risk 03/27/24 10:41 Height & Weight Height & Weight: Anesthesia: Height & Weight Height 5 ft 4 in 03/30/24 10:46 Weight: 59 kg 03/30/24 10:46 Body Mass Index (BMI) 22.3 03/30/24 10:46 Respiratory Assessment Respiratory Assessment - natural resource manager: Respiratory Tract Infection Hx - natural resource manager Hx Respiratory Tract Infection Yes: GETTING OVER IT 03/27/24 10:41 STOP Sleep Apnea STOP Sleep Apnea - natural resource manager: STOP Sleep Apnea - natural resource manager Hx Hypertension Yes 03/27/24 10:41 Hx Sleep Apnea No 03/27/24 10:41 CPAP BIPAP Do you snore loudly (louder No 03/27/24 10:41 than talking or can be heard Do you often feel tired/ No 03/27/24 10:41 fatigued/ sleepy during daytime? Has anyone observed you stop No 03/27/24 10:41 breathing during sleep? STOP Results Negative 03/27/24 10:41 QUESTION #5 FULL TEXT : Do you snore loudly (louder than talking or can be heard through closed doors)? Tobacco Use History Tobacco Use History - natural resource manager: Tobacco Use History - natural resource manager Tobacco Use Non-smoker 08/31/23 13:32 Smoking Status Former smoker 03/27/24 10:41 Hx Tobacco Use No 03/27/24 10:41 Years Smoking Packs Smoked per Day Smoking Cessation Date was No - quit smoking greater 03/27/24 10:41 within the last 15 years than 15 years ago Hx Smoking Cessation Date 09/09/1938 03/27/24 10:41 Hx Smoking Cessation No 03/27/24 10:41 Counseling Hematologic Medial History Hematologic Hx - natural resource manager: Hematologic Medical Hx - crm consultant Hx of Blood Transfusion Yes 03/27/24 10:41 Hx of Transfusion in last 3 No 03/27/24 10:41 Months Date of Last Transfusion (if within last 3 months) Ever experience any problems No 03/27/24 10:41 with transfusion(s)? Specify any problems Hx of Preganancy in last 3 No 03/27/24 10:41 Months Nurse Filling Out Transfusion VLEHMAN 03/27/24 10:41 & Questions: Date: 03/27/24 03/27/24 10:41 Time: 10:49 03/27/24 10:41 Patient unable to answer at this time (ie. 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 History - natural resource manager: /Reproductive Hx- natural resource manager Hx Now No 03/27/24 10:41 Gestational Age (in weeks): EDC: Hx Hx Para Hx Section SAB No 03/27/24 10:41 [facility] Medical History Wears glasses Cancer Anxiety Ambulates with cane History of renal disease Bladder disease History of hiatal hernia Gastric reflux Former smoker Gait disturbance Diverticular disease Primary hyperparathyroidism Sciatica Age related osteoporosis Bowel obstruction Scoliosis Lumbar radiculopathy Hx of renal cell carcinoma Osteoporosis GERD (gastroesophageal reflux disease) Hypoglycemia HTN (hypertension) Bladder prolapse Home Medications ?Medication ?Instructions ?Recorded ?Last Taken ?Type cholecalciferol (vitamin D3) 25 2,000 unit PO DAILY 12/26/15 Unknown History mcg (1,000 unit) tablet (Vitamin D3) losartan 25 mg tablet 25 mg PO DAILY 12/26/15 03/30/24 History oxybutynin chloride 5 mg tablet 5 mg PO BID 12/26/15 Unknown History diltiazem HCl 180 mg capsule,24 360 mg PO DAILY 09/08/20 03/30/24 History hr,extended release lorazepam 0.5 mg tablet 0.5 mg PO DAILY 09/08/20 Unknown History acetaminophen 500 mg tablet 500 mg PO Q6H PRN pain 08/23/22 Unknown History (Tylenol Extra Strength) cetirizine 5 mg tablet 5 mg PO DAILY PRN allergy symptoms 08/23/22 Unknown History fluticasone propionate 50 1 spray intranasal DAILY 08/23/22 Unknown History mcg/actuation nasal spray,suspension omeprazole 40 mg capsule,delayed 40 mg PO DAILY 08/23/22 03/30/24 History release sodium chloride 0.65 % nasal spray 1 spray intranasal ONCE 08/23/22 Unknown History aerosol denosumab 60 mg/mL subcutaneous 60 mg subcut [id number] #1 mL 10/03/22 Unknown Rx syringe (Prolia) Lactobacillus rhamnosus GG 20 1 cell PO DAILY 12/16/23 Unknown History billion cell capsule (Probiotic Digestive Care) ondansetron 8 mg disintegrating 8 mg PO Q8H PRN nausea and 02/21/24 Unknown Rx tablet vomiting #15 tabs docusate sodium 100 mg capsule 100 mg PO TID #90 caps 03/25/24 Unknown Rx Allergy/AdvReac Type Severity Reaction Status Date / Time lisinopril Allergy Swelling Verified 03/30/24 10:57 esomeprazole (From Nexium) AdvReac Nausea/Vom/ Verified 03/30/24 10:57 Diarrhea Family History Father Alcoholism Brother Alcoholism Mother Arthritis Hypertension Osteoporosis Surgical History History of tubal ligation History of cholecystectomy History of knee replacement H/O partial nephrectomy Social History Smoking Status: Former smoker alcohol intake: never what type of physical activity do you participate in: bicycling Review of Systems (Anesthesia) ROS Narrative System reviewed and no additional complaints, except as documented.
--- NOTE | 2024-03-30 12:53 | PCM.POST.ANE ---
Anesthesia: Postop Eval I Current Vital Signs Temperature: 97.5 F Pulse Rate: 62 Blood Pressure: 96/55 Respiratory Rate: 16 Pulse Ox: 97 Oxygen Delivery Method: Room Air Assessment Airway patent: Yes Spontaneous unlabored respirations: Yes Mental status: Awake and Calm nausea: No Vomiting: No Anesthesia Complication: No Fluid Hydration Crystalloid volume administer (ml): 80 Total IV fluid infused: 80 Progress Note Anesthesia document: Postop Eval 1 completed: Yes
--- NOTE | 2024-03-30 12:55 | OP.COLON_ITS ---
Patient Name: Amparo Andre Procedure Date: 03/30/2024 11:50 AM Date of : 1945 Age: 79 Procedure: Colonoscopy Indications: Generalized abdominal pain, Abnormal CT of the GI tract, Incidental constipation noted Providers: Krzysztof Arroyo DO Referring MD: Femi Baeza Medicines: Monitored Anesthesia Care Patient Profile: This is a 79 year old female. Refer to note in patient chart for documentation of history and physical. Last Colonoscopy: date unknown. Unable to locate last colonoscopy report. Complications: No immediate complications. Procedure: Pre-Anesthesia Assessment: - Prior to the procedure, a History and Physical was performed, and patient medications and allergies were reviewed. The patient is competent. The risks and benefits of the procedure and the sedation options and risks were discussed with the patient. All questions were answered and informed consent was obtained. Patient identification and proposed procedure were verified by the physician in the pre-procedure area. Mental Status Examination: alert and oriented. Airway Examination: normal oropharyngeal airway and neck mobility. Respiratory Examination: clear to auscultation. CV Examination: normal. ASA Grade Assessment: II - A patient with mild systemic disease. After reviewing the risks and benefits, the patient was deemed in satisfactory condition to undergo the procedure. The anesthesia plan was to use monitored anesthesia care (MAC). Immediately prior to administration of medications, the patient was re-assessed for adequacy to receive sedatives. The heart rate, respiratory rate, oxygen saturations, blood pressure, adequacy of pulmonary ventilation, and response to care were monitored throughout the procedure. The physical status of the patient was re-assessed after the procedure. After I obtained informed consent, the scope was passed under direct vision. Throughout the procedure, the patient's blood pressure, pulse, and oxygen saturations were monitored continuously. The pediatric colonoscope was introduced through the anus and advanced to the splenic flexure. The colonoscopy was technically difficult and complex due to poor bowel prep with stool present, poor endoscopic visualization and a redundant colon. Successful completion of the procedure was aided by lavage. The patient tolerated the procedure well. The quality of the bowel preparation was poor. Scope In: 12:06:55 PM Scope Out: 12:41:53 PM Total Procedure Duration Time 0 hours 34 minutes 58 seconds Findings: The perianal and digital rectal examinations were normal. Small-mouthed diverticula were found in the recto-sigmoid colon and sigmoid colon. Stool was found in the entire colon. Lavage of the area was performed using copious amounts, resulting in incomplete clearance with continued poor visualization. A severe stenosis was found at the splenic flexure and was non-traversed. Impression: - Preparation of the colon was poor. - Diverticulosis in the recto-sigmoid colon and in the sigmoid colon. - Stool in the entire examined colon. 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 - No specimens collected. Recommendation: - Discharge patient to home. - Full liquid diet. - Continue present medications. - CT scan of the abdomen pelvis with oral and IV contrast and rectal contrast CT regarding colonic stricture - Repeat colonoscopy because the bowel preparation was poor. Procedure Code(s): --- Professional --- 07998, 53, Colonoscopy, flexible; diagnostic, including collection of specimen(s) by brushing or washing, when performed (separate procedure) CPT copyright 2021 [employer]. All rights reserved. The codes documented in this report are preliminary and upon customer management specialist review may be revised to meet current compliance requirements. Krzysztof Arroyo DO 03/30/2024 12:55:32 PM This report has been signed electronically. Number of Addenda: 0 Note Initiated On: 03/30/2024 11:50 AM
--- NOTE | 2024-03-30 12:56 | OP.CCLET_ITS ---
03/30/2024 Femi Baeza [address] [place] [address] Re : Colonoscopy procedure for Amparo Andre Dear Dr. Baeza This procedure was performed on Saturday, March 30, 2024. My impressions and recommendations are as follows: Impressions : - Preparation of the colon was poor. - Diverticulosis in the recto-sigmoid colon and in the sigmoid colon. - Stool in the entire examined colon. 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 - No specimens collected. Recommendations : - Discharge patient to home. - Full liquid diet. - Continue present medications. - CT scan of the abdomen pelvis with oral and IV contrast and rectal contrast CT regarding colonic stricture - Repeat colonoscopy because the bowel preparation was poor. My findings are described in the full procedure note, which is enclosed. If I can be of further assistance, please feel free to contact me at . Sincerely, Krzysztof Friend, 03/30/2024 12:55:32 PM This report has been signed electronically.
--- NOTE | 2024-03-30 13:12 | PCM.POSTANE2 ---
Anesthesia Postop Eval I Sum Postop Eval Completion status Anesthesia document: Postop Eval 1 completed: Yes Anesthesia Postop Eval I Summary Anesthesia Postop Eval I Summary: Anesthesia Postop Eval I: Assessment Summary Airway patent Yes 03/30/24 12:54 [email or web address] Spontaneous unlabored Yes 03/30/24 12:54 [email or web address] respirations Mental status Awake,Calm 03/30/24 12:54 [email or web address] nausea No 03/30/24 12:54 [email or web address] Vomiting No 03/30/24 12:54 [email or web address] Anesthesia Postop Eval I: Fluid Summary Crystalloid volume administer 80 03/30/24 12:54 [email or web address] (ml) Colloids volume administered ( ml) Blood Product volume administered (ml) Total IV fluid infused 80 03/30/24 12:54 [email or web address] Anesthesia Postop Eval I: Summary Notes Anesthesia Complication No 03/30/24 12:54 [email or web address] Anesthesia Complication Comment: Post-operative progress note Anesthesia: Postop Eval II Evaluation Mental status: Awake Pain Level: 0 nausea: No Vomiting: No Complications Anesthesia Complication: No
== END 2024-03-30 13:49 | disposition home or self-care (01) ==
LOC: EN 10:26 → AC 10:28
PROVIDERS: PCP Internal Medicine; Referring Provider Internal Medicine; Visit Provider Internal Medicine Gastroenterology
PROC: 0DJD8ZZ Inspection of Lower Intestinal Tract, Via Natural or Artificial Opening Endoscopic (ICD-10-PCS; CPT 45378; principal; 2024-03-30 11:25)
DX: K56.609 Unspecified intestinal obstruction, unspecified as to partial versus complete obstruction (principal); K57.30 Diverticulosis of large intestine without perforation or abscess without bleeding; I10 Essential (primary) hypertension; K21.9 Gastro-esophageal reflux disease without esophagitis; Z87.891 Personal history of nicotine dependence; Z79.899 Other long term (current) drug therapy
CPT/HCPCS: 45378; A4216; J2405

== ENCOUNTER → 2024-04-30 | Outpatient (CLI) | payer MEDICARE, SELFPAY ==
--- NOTE | 2024-04-30 14:30 | CT_ITS ---
PROCEDURE: COMPUTED TOMOGRAPHY OF THE ABDOMEN AND PELVIS WITH CONTRAST REASON FOR EXAM: COLONIC STRICTURE. TECHNIQUE: Contiguous axial scans of mm slice thicknesses. Sagittal and coronal reconstruction images were obtained. One or more dose reduction techniques were used (e.g., automated exposure control, adjustment of mA and/or kv according to patient size, use of iterative reconstruction technique). IV CONTRAST: Isovue-370, 100 mL COMPARISON: CT abdomen and pelvis dated 02/21/2024. FINDINGS: Lung bases: Large paraesophageal hiatal hernia. Liver: Lobulated contour. Gallbladder: Surgically absent. Dilatation of the intrahepatic and extrahepatic bile ducts. The common bile duct measures 1.4 cm in diameter on axial image 44. Dilatation of the proximal pancreatic duct. Spleen: Normal in size. Small subcentimeter hypodensities scattered throughout the spleen. Pancreas: Atrophy of the pancreas Adrenals: Unremarkable. Kidneys: Multiple cystic nodules in the right kidney, largest measuring 1.9 x 1.5 cm, axial image 50. A small ovoid enhancing solid nodule involving the posterolateral aspect of the right kidney measuring 1.1 cm in long axis, axial image 50. Right extrarenal pelvis. Enhancing mass is seen in the right superior pole, axial image 36 measuring 1.9 x 1.7 cm. Enhancing mass measuring 1.3 x 1.0 cm in the left posterior midpole. Bladder: Unremarkable. Reproductive Organs: Calcifications in the left side of the uterus most likely small fibroids. Bowel: Severe fecal retention in the colon. No small bowel obstruction her zones of transition. Appendix: Normal. Lymph nodes: No suspicious lymph node enlargement. Vasculature: Scattered atherosclerotic calcific disease in the aorta. Peritoneum / Retroperitoneum: No ascites. No free air. Bones: Severe scoliosis. Multilevel degenerative disc disease. Multilevel spondylosis. CT/Abdomen/Pelvis WITH Contrast IMPRESSION: 1. Lobulated liver contour can be seen with sclerosis. 2. Biliary ductal dilatation not significantly changed from the previous study . Common bile duct measures 1.4 cm. 3. Status post cholecystectomy. 4. Solid enhancing nodules in the bilateral kidneys. Can not exclude neoplasm s. 5. Multiple right renal cystic masses. 6. Small uterine fibroids. 7. Marked colon fecal retention. 8. Nonacute findings detailed above are stable. Reading Location: [place] [id number]
[2024-04-30 15:10] LABS: CREATININE FINGERSTICK < 1.0 mg/dL (0.55-1.02); EGFR FINGERSTICK > 60.0000 mL/min (>60)
== END | disposition home or self-care (01) ==
LOC: CT 14:23
PROVIDERS: PCP Internal Medicine; Referring Provider Student in an Organized Health Care Education/Training Program; Visit Provider Student in an Organized Health Care Education/Training Program
DX: K56.699 Other intestinal obstruction unspecified as to partial versus complete obstruction (principal)
CPT/HCPCS: 74177; Q9967; A4216

== ENCOUNTER 2024-06-12 11:36 | Day surgery (SDC) | payer MEDICARE, SELFPAY ==
--- NOTE | 2024-06-08 11:55 | PAT.ANESEVAL ---
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 When Was Last Pacemaker Check QUESTION #4 FULL TEXT: You/Your Family Experience fever (hyperthermia) with Anesthesia Last Oral Intake Last Oral intake: Last Oral Intake NPO since Meds taken in AM with sips of water? 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 Female Yes 06/08/24 11:36 HX of Motion Sickness No 06/08/24 11:36 HX of N/V After Surgery No 06/08/24 11:36 Non-Smoker Yes 06/08/24 11:36 Duration of Surgery greater No 06/08/24 11:36 than 60 minutes Number of Risk Factors 2 06/08/24 11:36 PONV Score Moderate Risk 06/08/24 11:36 Height & Weight Height & Weight: Anesthesia: Height & Weight Height 5 ft 4 in 03/30/24 10:46 Respiratory Assessment Respiratory Assessment - petroleum refinery worker: Respiratory Tract Infection Hx - 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 Has anyone observed you stop No 06/08/24 11:36 breathing during sleep? STOP Results Negative 06/08/24 11:36 QUESTION #5 FULL TEXT : Do you snore loudly (louder than talking or can be heard through closed doors)? 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 Specify any problems Hx of Preganancy in last 3 No 06/08/24 11:36 Months Nurse Filling Out Transfusion VCHRISTIN 06/08/24 11:36 & Questions: Date: 06/08/24 06/08/24 11:36 Time: 11:37 06/08/24 11:36 Patient unable to answer at this time (ie. 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: /Reproductive Hx- petroleum refinery worker Hx Now No 06/08/24 11:36 Gestational Age (in weeks): EDC: Hx Hx Para Hx Section SAB No 06/08/24 11:36 [facility] Medical History (Updated 06/08/24 @ 11:36 by Alyssia Miller) Wears glasses Cancer Anxiety Ambulates with cane History of renal disease Bladder disease History of hiatal hernia Gastric reflux Former smoker Gait disturbance Diverticular disease Primary hyperparathyroidism Sciatica Age related osteoporosis Bowel obstruction Scoliosis Lumbar radiculopathy Hx of renal cell carcinoma Osteoporosis GERD (gastroesophageal reflux disease) Hypoglycemia HTN (hypertension) Bladder prolapse Home Medications ?Medication ?Instructions ?Recorded ?Last Taken ?Type cholecalciferol (vitamin D3) 25 2,000 unit PO DAILY 12/26/15 Unknown History mcg (1,000 unit) tablet (Vitamin D3) oxybutynin chloride 5 mg tablet 5 mg PO BID 12/26/15 Unknown History diltiazem HCl 180 mg capsule,24 360 mg PO DAILY 09/08/20 03/30/24 History hr,extended release lorazepam 0.5 mg tablet 0.5 mg PO DAILY 09/08/20 Unknown History acetaminophen 500 mg tablet 500 mg PO Q6H PRN pain 08/23/22 Unknown History (Tylenol Extra Strength) cetirizine 5 mg tablet 5 mg PO DAILY PRN allergy symptoms 08/23/22 Unknown History fluticasone propionate 50 1 spray intranasal DAILY 08/23/22 Unknown History mcg/actuation nasal spray,suspension omeprazole 40 mg capsule,delayed 40 mg PO DAILY 08/23/22 03/30/24 History release sodium chloride 0.65 % nasal spray 1 spray intranasal DAILY 08/23/22 Unknown History aerosol denosumab 60 mg/mL subcutaneous 60 mg subcut [id number] #1 mL 10/03/22 Unknown Rx syringe (Prolia) Lactobacillus rhamnosus GG 20 1 cell PO DAILY 12/16/23 Unknown History billion cell capsule (Probiotic Digestive Care) ondansetron 8 mg disintegrating 8 mg PO Q8H PRN nausea and 02/21/24 Unknown Rx tablet vomiting #15 tabs docusate sodium 100 mg capsule 100 mg PO TID #90 caps 03/25/24 Unknown Rx linaclotide 145 mcg capsule 145 mcg PO QAM #30 caps 05/15/24 Unknown Rx (Linzess) losartan 50 mg tablet 50 mg PO BID 06/08/24 Unknown History Allergy/AdvReac Type Severity Reaction Status Date / Time lisinopril Allergy Swelling Verified 06/08/24 11:29 esomeprazole (From Nexium) AdvReac Nausea/Vom/ Verified 06/08/24 11:29 Diarrhea Family History Father Alcoholism Brother Alcoholism Mother Arthritis Hypertension Osteoporosis Surgical History (Updated 06/08/24 @ 11:36 by Alyssia Miller) Hx of colonoscopy History of tubal ligation History of cholecystectomy History of knee replacement H/O partial nephrectomy Social History Smoking Status: Former smoker alcohol intake: never what type of physical activity do you participate in: bicycling Audit: Pertinent Findings Pertinent Findings EKG Perinent findings: 11/18/2021. Sinus bradycardia 58 bpm. Possible left atrial enlargement. Recommendation Anesthesia Recommendation Anesthesia recommendation: OPTIMIZED for anesthesia
[2024-06-12] VITALS (8 sets, daily range): BP systolic 113–139; BP diastolic 54–65; PULSE 52–78; RESP 16; TEMP 36.3–37.2; O2SAT 100; BMI 21.0
--- NOTE | 2024-06-12 12:12 | PRE.ANES_ITS ---
ASA Classification* ASA Classification ASA Classification: 2 Assessment & Plan Anesthesia* Anesthesia Assessment Anesthesia Assessment: Discussed sedation and/or anesthesia options, risks, benefits, and alternatives with patient/parents/legal guardian/POA. Questions invited. The patient/parents/legal guardian/POA seems to understand and agrees to proceed with anesthesia plan. Reviewed the physical assessment, medical history, allergy history and patient home medications list prior to surgery/procedure/anesthetic and documented any changes. Performed airway and anesthesia risk assessments. Anesthesia Type Anesthesia Type: MAC Anesthesia Focused Assessment* Temperature: 98.9 F Pulse Rate: 78 Blood Pressure: 139/65 Respiratory Rate: 16 Pulse Ox: 100 Airway Assessment Mouth opens: >3 cm Mallampati Score: II Focused Labs Anesthesia Preop lab: CBC WBC 6.7 K/mm3 (4.4-11.0) 03/20/24 09:50 03/20/24 RBC 5.06 M/mm3 (4.2-5.4) 03/20/24 09:50 03/20/24 Hgb 14.4 g/dL (12.0-15.0) 03/20/24 09:50 03/20/24 Hct 44.4 % (37-47) 03/20/24 09:50 03/20/24 Plt Count 242 K/mm3 (150-450) 03/20/24 09:50 03/20/24 CHEMISTRY Potassium 4.0 mmol/L (3.5-5.1) 03/20/24 09:50 03/20/24 Sodium 138 mmol/L (136-145) 03/20/24 09:50 03/20/24 Magnesium 1.9 mg/dL (1.6-2.6) 11/18/21 18:20 11/18/21 BUN 10 mg/dL (7-18) 03/20/24 09:50 03/20/24 Creatinine 0.75 mg/dL (0.55-1.02) 03/20/24 09:50 03/20/24 Glucose 115 mg/dL (74-106) H 03/20/24 09:50 03/20/24 COAG Pre-Assessment Diagnosis/Proposed Procedure Planned Operative Procedure(s): COLONOSCOPY Anesthesia History 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 When Was Last Pacemaker Check QUESTION #4 FULL TEXT: You/Your Family Experience fever (hyperthermia) with Anesthesia Last Oral Intake Last Oral intake: Last Oral Intake NPO since 09:00 06/12/24 11:59 Meds taken in AM with sips of water? 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 Female Yes 06/08/24 11:36 HX of Motion Sickness No 06/08/24 11:36 HX of N/V After Surgery No 06/08/24 11:36 Non-Smoker Yes 06/08/24 11:36 Duration of Surgery greater No 06/08/24 11:36 than 60 minutes Number of Risk Factors 2 06/08/24 11:36 PONV Score Moderate Risk 06/08/24 11:36 Height & Weight Height & Weight: Anesthesia: Height & Weight Height 5 ft 4 in 06/12/24 11:59 Weight: 55.701 kg 06/12/24 11:59 Body Mass Index (BMI) 21.0 06/12/24 11:59 Respiratory Assessment Respiratory Assessment - supervisor cooler service: Respiratory Tract Infection Hx - supervisor cooler service Hx Respiratory Tract Infection No 06/08/24 11:36 STOP Sleep Apnea STOP Sleep Apnea - supervisor 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 Has anyone observed you stop No 06/08/24 11:36 breathing during sleep? STOP Results Negative 06/08/24 11:36 QUESTION #5 FULL TEXT : Do you snore loudly (louder than talking or can be heard through closed doors)? 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 Specify any problems Hx of Preganancy in last 3 No 06/08/24 11:36 Months Nurse Filling Out Transfusion VCHRISTIN 06/08/24 11:36 & Questions: Date: 06/08/24 06/08/24 11:36 Time: 11:37 06/08/24 11:36 Patient unable to answer at this time (ie. 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: /Reproductive Hx- supervisor cooler service Hx Now No 06/08/24 11:36 Gestational Age (in weeks): EDC: Hx Hx Para Hx Section SAB No 06/08/24 11:36 PFSH Medical History Wears glasses Cancer Anxiety Ambulates with cane History of renal disease Bladder disease History of hiatal hernia Gastric reflux Former smoker Gait disturbance Diverticular disease Primary hyperparathyroidism Sciatica Age related osteoporosis Bowel obstruction Scoliosis Lumbar radiculopathy Hx of renal cell carcinoma Osteoporosis GERD (gastroesophageal reflux disease) Hypoglycemia HTN (hypertension) Bladder prolapse Home Medications ?Medication ?Instructions ?Recorded ?Last Taken ?Type cholecalciferol (vitamin D3) 25 2,000 unit PO DAILY Unknown History mcg (1,000 unit) tablet (Vitamin D3) oxybutynin chloride 5 mg tablet 5 mg PO BID 12/26/15 U nknown History diltiazem HCl 180 mg capsule,24 360 mg PO DAILY 06/12/24 History hr,extended release lorazepam 0.5 mg tablet 0.5 mg PO DAILY 09/08/20 Unk nown History acetaminophen 500 mg tablet 500 mg PO Q6H PRN pain Unknown History (Tylenol Extra Strength) cetirizine 5 mg tablet 5 mg PO DAILY PRN allergy sy mptoms 08/23/22 Unknown History fluticasone propionate 50 1 spray intranasal DAILY Unknown History mcg/actuation nasal spray,suspension omeprazole 40 mg capsule,delayed 40 mg PO DAILY 03/30/24 History release sodium chloride 0.65 % nasal spray 1 spray intranasal DAILY 08/23/22 Unknown History aerosol denosumab 60 mg/mL subcutaneous 60 mg subcut [id number] #1 mL 10/03/22 Unknown Rx syringe (Prolia) Lactobacillus rhamnosus GG 20 1 cell PO DAILY 12/16/23 Unknown History billion cell capsule (Probiotic Digestive Care) ondansetron 8 mg disintegrating 8 mg PO Q8H PRN nausea and 02/21/24 Unknown Rx tablet vomiting #15 tabs docusate sodium 100 mg capsule 100 mg PO TID #90 caps 03/25/24 Unknown Rx linaclotide 145 mcg capsule 145 mcg PO QAM #30 caps Unknown Rx (Linzess) losartan 50 mg tablet 50 mg PO BID 06/08/24 History Allergy/AdvReac Type Severity Reaction Status Date / Time lisinopril Allergy Swelling Verified 06/12/24 11:58 esomeprazole (From Nexium) AdvReac Nausea/Vom/ Verified 06/12/24 11:58 Diarrhea Family History Father Alcoholism Brother Alcoholism Mother Arthritis Hypertension Osteoporosis Surgical History Hx of colonoscopy History of tubal ligation History of cholecystectomy History of knee replacement H/O partial nephrectomy Social History Smoking Status: Former smoker alcohol intake: never what type of physical activity do you participate in: bicycling Review of Systems (Anesthesia) ROS Narrative System reviewed and no additional complaints, except as documented.
--- NOTE | 2024-06-12 13:00 | COLBX_PTH ---
PATIENT: LEONEL BAUM LOC: EN U#:[id number] AGE/SX: 79/F ROOM: RE06/12/[address]: Dr. Krzysztof Arroyo DO : 1945 BED: DIS: 06/12/2024 SPEC #: [id number] RECD: 06/15/24 08:46 STATUS: SOLOMON DON #: [id number] FREDY: 06/12/24 13:[address]: Krzysztof Arroyo DEPT: SURGICAL PATHOLOGY RECD BY: Faizan Stone ENTERED: 06/15/24 08:46 SP TYPE: COLON BX OT DR: Dr. Femi Baeza MD Tissues: A - Rectum, NOS Procedures: Surgery Specimen Level IV HEADER OPERATION: Colonoscopy with polyp PRE-OP DIAGNOSIS: Colonic stricture, GI bleed TISSUE SUBMITTED: A- Rectal polyp MICROSCOPIC DIAGNOSIS A. 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 MICROSCOPIC DESCRIPTION Slides are reviewed. GROSS DESCRIPTION A. Received in formalin in a container labeled with the patient's name, date of , and rectal polyp are multiple pereyra-pink fragments of mucosal tissue measuring 1.5 x 0.7 x 0.2 cm in aggregate. Submitted in toto in A1. SMB 06/22/2024 CPT:76549
--- NOTE | 2024-06-12 13:02 | HP.PCM_ITS ---
HPI - General General Date of Admission: 06/12/24 Date of Service: 06/12/24 Chief Complaint: Constipation HPI Narrative LEONEL BAUM, is a 79 F who presents with the chief Complaint: constipation [facility] ED 02.21.24 w/ watery diarrhea followed by n/v for 24 hours. Work up mostly unremarkable. Suspected viral gastroenteririrs. Discharged after IV fluids and potassium repletion. CT abd/pelvis 02.21.24; 1. Nonspecific fluid-filled small bowel loops and colon without evidence of bowel obstruction could be due to enterocolitis. 2. Persistent complex hypodense lesion in the right kidney slightly larger than the previous examinations could be due to slowly growing tumor. [facility] ED 03.16.24; with no bowel movement for 3 weeks and mild intermittent rectal bleeding. KUB 03.16.24; Moderate to large amount of colonic stool and gas. [facility] ED 03.20.24 with constipation and suspected rectal prolapse per pt. Normal work up. Physical exam with no indication of rectal prolapse. [facility] Established 03.25.24 with complaints related to rectal bleeding and possible prolapse *plan for colonoscopy, increase colace Colonoscopy 03.30.24;- Preparation of the colon was poor. - Diverticulosis in the recto-sigmoid colon and in the sigmoid colon. - Stool in the entire examined colon. 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 - No specimens collected. OV 04.21.24 Pt continues to have issues with constipation since her colonoscopy. She has not had a full bm since the colonoscopy. She is passing gas. She started eating a normal diet about 5 days ago. She admits to being afraid of having a bm as this has caused her prolapse to fall out and bleed in the past. She denies abd pain, n/v, diarrhea or heartburn. [facility] Medical History Wears glasses Cancer Anxiety Ambulates with cane History of renal disease Bladder disease History of hiatal hernia Gastric reflux Former smoker Gait disturbance Diverticular disease Primary hyperparathyroidism Sciatica Age related osteoporosis Bowel obstruction Scoliosis Lumbar radiculopathy Hx of renal cell carcinoma Osteoporosis GERD (gastroesophageal reflux disease) Hypoglycemia HTN (hypertension) Bladder prolapse Home Medications ?Medication ?Instructions ?Recorded ?Last Taken ?Type cholecalciferol (vitamin D3) 25 2,000 unit PO DAILY Unknown History mcg (1,000 unit) tablet (Vitamin D3) oxybutynin chloride 5 mg tablet 5 mg PO BID 12/26/15 U nknown History diltiazem HCl 180 mg capsule,24 360 mg PO DAILY 06/12/24 History hr,extended release lorazepam 0.5 mg tablet 0.5 mg PO DAILY 09/08/20 Unk nown History acetaminophen 500 mg tablet 500 mg PO Q6H PRN pain Unknown History (Tylenol Extra Strength) cetirizine 5 mg tablet 5 mg PO DAILY PRN allergy sy mptoms 08/23/22 Unknown History fluticasone propionate 50 1 spray intranasal DAILY Unknown History mcg/actuation nasal spray,suspension omeprazole 40 mg capsule,delayed 40 mg PO DAILY 03/30/24 History release sodium chloride 0.65 % nasal spray 1 spray intranasal DAILY 08/23/22 Unknown History aerosol denosumab 60 mg/mL subcutaneous 60 mg subcut [id number] #1 mL 10/03/22 Unknown Rx syringe (Prolia) Lactobacillus rhamnosus GG 20 1 cell PO DAILY 12/16/23 Unknown History billion cell capsule (Probiotic Digestive Care) ondansetron 8 mg disintegrating 8 mg PO Q8H PRN nausea and 02/21/24 Unknown Rx tablet vomiting #15 tabs docusate sodium 100 mg capsule 100 mg PO TID #90 caps 03/25/24 Unknown Rx linaclotide 145 mcg capsule 145 mcg PO QAM #30 caps Unknown Rx (Linzess) losartan 50 mg tablet 50 mg PO BID 06/08/24 History Allergy/AdvReac Type Severity Reaction Status Date / Time lisinopril Allergy Swelling Verified 06/12/24 11:58 esomeprazole (From Nexium) AdvReac Nausea/Vom/ Verified 06/12/24 11:58 Diarrhea Family History Father Alcoholism Brother Alcoholism Mother Arthritis Hypertension Osteoporosis Surgical History Hx of colonoscopy History of tubal ligation History of cholecystectomy History of knee replacement H/O partial nephrectomy Social History Smoking Status: Former smoker alcohol intake: never what type of physical activity do you participate in: bicycling ROS Constitutional Constitutional: Denies fatigue, fever(s), poor appetite, weight gain or weight loss Gastrointestinal Gastrointestinal: Denies belching, bloating, change in bowel habits, change in stool character, chewing difficulty, coffee ground emesis, constipation, cramping, diarrhea, dyspepsia, dysphagia, early satiety, excessive flatus, fecal incontinence, heartburn, hematemesis, hematochezia, hemorrhoids, loose stools, melena, nausea, odynophagia, rectal bleeding, tenesmus, vomiting or weight changes Vital Signs Vital Signs Vital Signs: 06/12/24 11:59 06/12/24 11:59 06/12/24 12:12 Temperature 98.9 F 98.9 F Temperature Source Temporal Pulse Rate 78 78 Respiratory Rate 16 16 Respiratory Pattern Normal Blood Pressure 139/65 H 139/65 H Blood Pressure Mean 89 Blood Pressure Source Monitor Blood Pressure Position Semi-Fowlers Blood Pressure Location Right Arm Pulse Ox 100 100 Oxygen Delivery Method Room Air Weight Weight: 122 lb 12.8 oz Body Mass Index (BMI) 21.0 Physical Exam Const alert, oriented x3, no apparent distress and healthy appearing General Appearance: cooperative GI normal to inspection, nondistended, normoactive bowel sounds, soft to palpation, non-tender and non-distended Percussion: normal to percussion Rectal Exam: deferred Assessment & Plan Assessment/Plan (1) Colonic stricture: (2) GI bleed: PLAN: Assessment and Plan Assessment and Plan (1) GI bleed: Status: Acute Plan: Pt is a 79 yo female pt here today for f/u after colonoscopy. Pt has had issues with possible rectal prolapse over the past couple of months. She underwent colonoscopy which showed a lot of stool as well as a stricture at the hepatic fl exure. SHe was scheduled for a repeat scope. CT abd/pelvis ordered for the colonic stricture. She will continue colace daily and start miralax daily. She will keep me updated this week if she has a bm. -CT -repeat scope -continue colace -start miralax daily (2) Colonic stricture: Status: Acute
--- NOTE | 2024-06-12 13:42 | OP.CCLET_ITS ---
06/12/2024 Femi Baeza [address] [place] [address] Re : Colonoscopy procedure for Amparo Andre Dear Dr. Baeza This procedure was performed on Wednesday, June 12, 2024. My impressions and recommendations are as follows: Impressions : - Preparation of the colon was poor. - Rectal prolapse. - One 10 mm polyp in the rectum, removed with a hot snare. Resected and retrieved. - Stool in the entire examined colon. Recommendations : - Discharge patient to home. - Resume previous diet. - Continue present medications. - Await pathology results. - Repeat colonoscopy because the bowel preparation was poor. My findings are described in the full procedure note, which is enclosed. If I can be of further assistance, please feel free to contact me at . Sincerely, Krzysztof Arroyo, 06/12/2024 1:41:44 PM This report has been signed electronically.
--- NOTE | 2024-06-12 13:42 | OP.COLON_ITS ---
Patient Name: Amparo Andre Procedure Date: 06/12/2024 1:06 PM Date of : 1945 Age: 79 Procedure: Colonoscopy Indications: Generalized abdominal pain, Abdominal pain in the left lower quadrant Providers: Krzysztof Arroyo DO Referring MD: Femi Baeza Medicines: Monitored Anesthesia Care Patient Profile: This is a 79 year old female. Refer to note in patient chart for documentation of history and physical. Last Colonoscopy: within the past year. Complications: No immediate complications. Procedure: Pre-Anesthesia Assessment: - Prior to the procedure, a History and Physical was performed, and patient medications and allergies were reviewed. The patient is competent. The risks and benefits of the procedure and the sedation options and risks were discussed with the patient. All questions were answered and informed consent was obtained. Patient identification and proposed procedure were verified by the physician in the pre-procedure area. Mental Status Examination: alert and oriented. Airway Examination: normal oropharyngeal airway and neck mobility. Respiratory Examination: clear to auscultation. CV Examination: normal. Prophylactic Antibiotics: The patient does not require prophylactic antibiotics. Prior Anticoagulants: The patient has taken no anticoagulant or antiplatelet agents except for NSAID medication. ASA Grade Assessment: II - A patient with mild systemic disease. After reviewing the risks and benefits, the patient was deemed in satisfactory condition to undergo the procedure. The anesthesia plan was to use monitored anesthesia care (MAC). Immediately prior to administration of medications, the patient was re-assessed for adequacy to receive sedatives. The heart rate, respiratory rate, oxygen saturations, blood pressure, adequacy of pulmonary ventilation, and response to care were monitored throughout the procedure. The physical status of the patient was re-assessed after the procedure. After I obtained informed consent, the scope was passed under direct vision. Throughout the procedure, the patient's blood pressure, pulse, and oxygen saturations were monitored continuously. The Colonoscope was introduced through the anus and advanced to the cecum, identified by the ileocecal valve. The colonoscopy was performed without difficulty. The patient tolerated the procedure well. The quality of the bowel preparation was poor. The ileocecal valve and the rectum were photographed. Scope In: 1:20:04 PM Scope Withdrawal Time 0 hours 8 minutes 23 seconds Scope Out: 1:35:34 PM Total Procedure Duration Time 0 hours 15 minutes 30 seconds Findings: The perianal and digital rectal examinations were normal. Mild rectal prolapse was present. A 10 mm polyp was found in the rectum. The polyp was sessile. The polyp was removed with a hot snare. Resection and retrieval were complete. Verification of patient identification for the specimen was done. Estimated blood loss was minimal. Stool was found in the entire colon. Impression: - Preparation of the colon was poor. - Rectal prolapse. - One 10 mm polyp in the rectum, removed with a hot snare. Resected and retrieved. - Stool in the entire examined colon. Recommendation: - Discharge patient to home. - Resume previous diet. - Continue present medications. - Await pathology results. - Repeat colonoscopy because the bowel preparation was poor. Procedure Code(s): --- Professional --- 07010, Colonoscopy, flexible; with removal of tumor(s), polyp(s), or other lesion(s) by snare technique CPT copyright 2021 [employer]. All rights reserved. The codes documented in this report are preliminary and upon regional extension service specialist review may be revised to meet current compliance requirements. Krzysztof Arroyo DO 06/12/2024 1:41:44 PM This report has been signed electronically. Number of Addenda: 0 Note Initiated On: 06/12/2024 1:06 PM
--- NOTE | 2024-06-12 13:46 | PCM.POST.ANE ---
Anesthesia: Postop Eval I Current Vital Signs Temperature: 97.3 F Pulse Rate: 60 Blood Pressure: 113/54 Respiratory Rate: 16 Pulse Ox: 100 Oxygen Delivery Method: Room Air Assessment Airway patent: Yes Spontaneous unlabored respirations: Yes Mental status: Awake and Calm nausea: No Vomiting: No Anesthesia Complication: No Fluid Hydration Crystalloid volume administer (ml): 40 Total IV fluid infused: 40 Progress Note Anesthesia document: Postop Eval 1 completed: Yes
--- NOTE | 2024-06-12 13:55 | PCM.POSTANE2 ---
Anesthesia Postop Eval I Sum Postop Eval Completion status Anesthesia document: Postop Eval 1 completed: Yes Anesthesia Postop Eval I Summary Anesthesia Postop Eval I Summary: Anesthesia Postop Eval I: Assessment Summary Airway patent Yes 06/12/24 13:47 [email or web address] Spontaneous unlabored Yes 06/12/24 13:47 [email or web address] respirations Mental status Awake,Calm 06/12/24 13:47 [email or web address] nausea No 06/12/24 13:47 [email or web address] Vomiting No 06/12/24 13:47 [email or web address] Anesthesia Postop Eval I: Fluid Summary Crystalloid volume administer 40 06/12/24 13:47 [email or web address] (ml) Colloids volume administered ( ml) Blood Product volume administered (ml) Total IV fluid infused 40 06/12/24 13:47 [email or web address] Anesthesia Postop Eval I: Summary Notes Anesthesia Complication No 06/12/24 13:47 [email or web address] Anesthesia Complication Comment: Post-operative progress note Anesthesia: Postop Eval II Evaluation Mental status: Awake Pain Level: 0 nausea: No Vomiting: No
== END 2024-06-12 14:20 | disposition home or self-care (01) ==
LOC: EN 11:38 → AC 11:38
PROVIDERS: PCP Internal Medicine; Referring Provider Internal Medicine; Visit Provider Internal Medicine Gastroenterology
PROC: 0DJD8ZZ Inspection of Lower Intestinal Tract, Via Natural or Artificial Opening Endoscopic (ICD-10-PCS; CPT 45378; principal; 2024-06-12 12:55)
DX: D12.8 Benign neoplasm of rectum (principal); K56.609 Unspecified intestinal obstruction, unspecified as to partial versus complete obstruction; K92.2 Gastrointestinal hemorrhage, unspecified; I10 Essential (primary) hypertension; Z87.891 Personal history of nicotine dependence; K62.3 Rectal prolapse; K21.9 Gastro-esophageal reflux disease without esophagitis; Z79.899 Other long term (current) drug therapy
CPT/HCPCS: 45385; 88305; A4216; J2405

== ENCOUNTER 2024-10-12 15:00 | Outpatient (RCR) | payer MEDICARE, SELFPAY ==
--- NOTE | 2024-09-14 14:55 | HP.PTEVAL ---
Patient's Visit Information Visit Information Visit Information: LEONEL BAUM is a 79 year old F referred to Physical Therapy by SADIE Cai with a diagnosis of chronic neck pain. Date of Evaluation: 09/14/24 Physical Therapist: Armond Garza, NAINAT, OCS, CSCS Visit Plan Frequency: 2x /Week Duration: 4-6 Weeks Plan: 2x/week for 3-6 weeks IE HEP: scap circles 20x, R UT stretch 30 5x, R c/s rotation ROM 20x, cervical retraction 20x all 2x/day with pics and postural focus with HO treat with : MH and STM to R UT, scalenes, rhomboids, may use thermal US to UT, stretch adn ROM ex to same and then eventual strength to posture and neck. Gt to I home program. Once improved, add in RC strength to toleerance. Subjective Subjective: Stiff neck for 6 weeks, multiple trips to doctor for tylenol and not improving. Frustrating and mood changing. Feel two wks ago and sore knees and R shoulder. X ray shoulder was OK. Insidous onset of neck soreness. Fall was due to bending down and turning but fell. Uses wh walker to get around out and about but not neeeded at home. Has cane she sometimes uses. Has been slow to get to bathroom and dressed and doesn't feel like going out to garden. Sleep is up every 2 hrs to pee adn moving in uncomfortable pulling covers with r arm and neck. R handed adn harder to brush teeth and do hair. Chriopractor did not help and made her worse. Pain neck: Pain Intensity (Out of 10): 2 Pain Intensity Range: 0 and 10 Comment: R sided, 0 at rest, Objective Objective: Walks into PT hunched over with wh walker mod I slow. Frustrated with R neck adn shoulder pain in her voice. Transfers chair and bed I. Cervical aROM 40 R rotation 55 L rotation, pain R, 8 L sidebend adn 14 R., 40 cervical extension, limited retraction. Posture is extreemely hunched with some R SB in neck, R rib hump and obvious scoliosis and kyphosis structural and postural. Flat lordosis in L/S. max tender in R UT, rhomboids and supraspinatus area on R. Atrophied in B RC muscles. UE AROM elevation to 115 B, some pain on R, er 25 R and 40 L, pain R, IR slow and painful R. elbow and wrist WFL. reflexes 2/3 bi and tri Sensation UE WNL to gross light touch. strength er 3 R and 4- L, elevation 3 R and 3+ L. IR 4- B. Pain with R er and flexion. scap mobility is limited B in reetraction and depression but able symmetrical. elbow and wrist strength 4-/5 B. - ext rotation lag, slight + R drop arm, - c/s compression. Balance/Special Test Scores Oswestry Neck Score: 32 Goals Goal 1:: Pain in neck adn shoulder 50% better at 2/10 at worst and manageable Goal Time Frame: 4-6 Weeks Goal 2:: I appropriate HEP for RC and postural and neck strength adn stretching, postural ROM to limit future problems Goal Time Frame: 4-6 Weeks Goal 3:: symmetircal neck ROM and er strength shoulders to allow for ease of ADLs Goal Time Frame: 4-6 Weeks Goal 4:: Neck oswestry to 5 or better Goal Time Frame: 4-6 Weeks Goal 5:: Work in garden adn do hair without increased pain Goal Time Frame: 4-6 Weeks Rehabilitation Potential Physical Therapy Diagnosis: R sided neck pain and tightness with limtied ROM making ADLs miserable Rehabilitation Potential: Fair Anticipated Interventions Patient/Client Instruction: Educate patient on: Condition and Plan of Care For the Purpose of:: To decrease pain, To increase ROM, To improve nutrient delivery to tissue and To increase tolerance to activity/condition/position Therapeutic Exercise to Include: Strength training, Postural training, Flexibilty training, Passive ROM and Active ROM For the Purpose of:: To decrease pain, To increase ROM, To improve nutrient delivery to tissue, To improve muscle performance and motor function, To increase tolerance to activity/condition/position and To increase flexibility/ROM Manual Therapy Techniques to Include: Petrissage, Mobilization, Passive ROM and Soft tissue mobilization For the Purpose of:: To decrease pain, To increase ROM, To improve nutrient delivery to tissue, To improve muscle performance and motor function, To increase tolerance to activity/condition/position, To improve health of tissue and To increase flexibility/ROM Thermo therapy (hot pack): Yes Ultrasound (thermal/non thermal): Yes For the Purpose of:: To decrease pain, To increase ROM and To improve nutrient delivery to tissue Text: Thank you for the opportunity to evaluate your patient. For Medicare and Medicare HMO plans, please review the plan of care and approve it. It will need to be FAXED BACK to us at [phone] for Medicare purposes. For Medicare only, by signing this I certify the plan of care. Please let me know if there are questions or concerns regarding this plan of care. Physician Signature: Date:
--- NOTE | 2024-10-12 15:56 | HP.PTDCSUM ---
Discharge Summary D/C summary: It has been my pleasure to treat LEONEL BAUM (BONNIE) referred by SADIE Cai, with the diagnosis of chronic neck pain for a total of 6 visit(s). Discharge Date: 10/12/24 Please see the following information for a summary of their discharge status. Subjective Subjective: Still hard to lift arm H to gt to hair.Most of pain is R shoulder adn at rest is 4/10 and 9/10 with movement tranisently. Neck is getting better, hurts in am upon awakening but moves around and it gets better. Pain neck: Pain Intensity (Out of 10): 0 R SH: Pain Intensity (Out of 10): 4 Overall Improvement % Improvement: 25 Objective Objective/Function: Did not tolerate shoulder strength today, too painful. Shoulder AROM 110 flexion but slow and painful, 25 er painful, IR L5 but painful. Neck aROM 55 B rotation adn 50 ext without pain. + R drop arm and + R ext rotation lag with 3- strength R er. Overall neck better movemeent and geetting more comfortable, shoulder R is a bugger and holding her back. Goals Goal 1:: Pain in neck adn shoulder 50% better at 2/10 at worst and manageable Goal Progress: shulder hurts Goal 2:: I appropriate HEP for RC and postural and neck strength adn stretching, postural ROM to limit future problems Goal Progress: neck better, not shoulder Goal 3:: symmetircal neck ROM and er strength shoulders to allow for ease of ADLs Goal Progress: neck met, not shldr Goal 4:: Neck oswestry to 5 or better Goal Progress: Not Progressing, shoulder Goal 5:: Work in garden adn do hair without increased pain Goal Progress: shoulder a problem Plan Plan: d/c, pt to seek help for shoulder and continue HEP D/C Information Discharge Comments: Pt to continue neck exercises at [facility] and wants to see shoulder specialist. d/c sentence: If there are questions or concerns regarding this patient's physical therapy, please feel free to call me at [phone]. Thank you for the referral of this patient. Sincerely, Armond Garza, DPT, OCS, CSCS Balance/Gait/Functional tests Balance/Special Test Scores Oswestry Neck Score: 27 Improvement % Improvement: 25
== END 2024-10-12 19:00 | disposition home or self-care (01) ==
LOC: PT 15:00
PROVIDERS: PCP Internal Medicine; Visit Provider Nurse Practitioner
DX: M54.2 Cervicalgia (principal); G89.29 Other chronic pain
CPT/HCPCS: 97110; 97140; 97162; 97164

== ENCOUNTER 2024-12-07 16:04 | Inpatient (IN) | payer MEDICARE, SELFPAY ==
[2024-12-07 16:06] VITALS: BP 167/102; PULSE 85; RESP 24; TEMP 36.7; O2SAT 98
--- NOTE | 2024-12-07 16:20 | EDS_ITS ---
HPI History of Present Illness Chief Complaint: Weakness Narrative Narrative: Patient is a 79-year-old female with past medical history of anxiety, cancer, GERD, primary hyperparathyroidism, bowel obstruction, osteoporosis, hypertension who presented to the emergency department chief complaint of constipation and diarrhea. States that she has chronic constipation and she is on Linzess currently as well as some other medications for constipation. States that MiraLAX did not help her in the past. States that she has had previous abdominal surgeries including tubal ligation as well as cholecystectomy. Patient states that she had bowel movement earlier today however notes that lately they have been painful and is large stool burden while having the bowel movement. She states that she also feels very shaky and weak overall. States that she has been eating denies any vomiting. States that she lives with her 2 sons. In triage noted notes that she was having pain in her right shoulder which she explained to me and after clarifying states that she had a fall in August and has been having ongoing pain since then and has seen multiple providers for this and there is suspicion that she tore her rotator cuff. She states that she is here today for weakness and constipation as well as nausea. [facility] Medical History Wears glasses Cancer Anxiety Ambulates with cane History of renal disease Bladder disease History of hiatal hernia Gastric reflux Former smoker Gait disturbance Diverticular disease Primary hyperparathyroidism Sciatica Age related osteoporosis Bowel obstruction Scoliosis Lumbar radiculopathy Hx of renal cell carcinoma Osteoporosis GERD (gastroesophageal reflux disease) Hypoglycemia HTN (hypertension) Bladder prolapse Home Medications Medication Instructions Recorded Last Taken Type cholecalciferol (vitamin D3) 25 2,000 unit PO DAILY HARDIN PPLEMENT 12/26/15 12/06/24 History mcg (1,000 unit) tablet (Vitamin D3) oxybutynin chloride 5 mg tablet 5 mg PO BID BLADDER 12/07/24 History diltiazem HCl 180 mg capsule,24 360 mg PO DAILY htn 12/07/24 History hr,extended release lorazepam 0.5 mg tablet 0.5 mg PO DAILY ANXIETY 07/10/2212/07/24 History acetaminophen 500 mg tablet 500 mg PO Q6H PRN pain 12/07/24 History (Tylenol Extra Strength) cetirizine 5 mg tablet 5 mg PO DAILY PRN allergy sy mptoms 08/23/22 Unknown History fluticasone propionate 50 1 spray intranasal DAILY PRN 08/23/22 Unknown History mcg/actuation nasal allergy symptoms spray,suspension omeprazole 40 mg capsule,delayed 40 mg PO DAILY GERD 0 08/23/22 12/06/24 History release denosumab 60 mg/mL subcutaneous 60 mg subcut [id number] OSTEOPOROSIS 10/03/22 Unknown Rx syringe (Prolia) #1 mL Lactobacillus rhamnosus GG 20 1 cell PO DAILY GUT HEAL TH 12/16/23 12/06/24 History billion cell capsule (Probiotic Digestive Care) ondansetron 8 mg disintegrating 8 mg PO Q8H PRN nausea and 02/21/24 Unknown Rx tablet vomiting #15 tabs losartan 50 mg tablet 50 mg PO BID HTN 06/08/24 History docusate sodium 100 mg capsule 100 mg PO TID constipat ion #90 caps 08/11/24 12/07/24 Rx linaclotide 145 mcg capsule 145 mcg PO QAM IBS #30 cap s 11/09/24 12/07/24 Rx (Linzess) lactulose 10 gram/15 mL oral 10 g (15 mL) PO TID CONST IPATION 11/13/24 12/07/24 Rx solution #1,200 mL fexofenadine 180 mg tablet 180 mg PO DAILY ALLERGY SYM PTOMS 12/07/24 12/06/24 History (Louisa Allergy) hydrochlorothiazide 50 mg tablet 50 mg PO DAILY DIURET IC 12/07/24 12/07/24 History Allergy/AdvReac Type Severity Reaction Status Date / Time lisinopril Allergy Swelling Verified 12/07/24 16:06 esomeprazole (From Nexium) AdvReac Nausea/Vom/ Verified 12/07/24 16:06 Diarrhea Family History Father Alcoholism Brother Alcoholism Mother Arthritis Hypertension Osteoporosis Surgical History Hx of colonoscopy History of tubal ligation History of cholecystectomy History of knee replacement H/O partial nephrectomy Social History Smoking Status: Former smoker alcohol intake: never what type of physical activity do you participate in: bicycling ROS ROS ED ROS Narrative Constitutional: Denies any fevers, chills, headaches Eyes: Denies double vision Cardiovascular: Denies chest pain Respiratory: Denies coughing wheezing shortness of breath Abdomen: Complains of nausea and constipation as noted above states that she is having bowel movements however she notes that she is constipated however she is chronically constipated : Denies any urinary symptoms Neurological: Complains of generalized weakness denies numbness, tingling Musculoskeletal: Denies back pain Skin: Denies any rashes or lesions EXAM Physical Exam Narrative Exam Narrative: General: Patient lying in bed resting comfortably did not appear to be acute distress Head: Atraumatic, normocephalic Eyes: PERRL bilaterally, EOMI bilaterally, no conjunctival injection noted Neck: Soft, supple, trachea midline Cardiovascular: Regular rate and rhythm Respiratory: Clear to auscultation bilaterally Abdomen: Soft, nondistended, mild tenderness patient diffusely throughout her abdomen does appear constipated as hard stool is noted on exam Extremities: +4/5 strength noted in the bilateral upper and lower extremities, no pedal edema on exam Neurological: Patient following commands knew that she was at [facility] years 2024 Skin: Warm, dry, tact no rashes or lesions noted Const Vital Signs: 12/07/24 16:06 12/07/24 16:39 12/07/24 18:05 Temperature 98.1 F Temperature Source Temporal Pulse Rate 85 56 L Respiratory Rate 24 H 16 Respiratory Effort Normal Respiratory Pattern Normal Blood Pressure 167/102 H 145/74 H Blood Pressure Mean 123 97 Pulse Ox 98 100 Oxygen Delivery Method Room Air Room Air 12/07/24 20:00 12/07/24 21:16 Temperature 98.1 F Temperature Source Pulse Rate 59 L 59 L Respiratory Rate 18 18 Respiratory Effort Respiratory Pattern Blood Pressure 125/83 H 125/83 H Blood Pressure Mean 97 97 Pulse Ox 100 100 Oxygen Delivery Method Room Air MDM MDM MDM Narrative Medical decision making narrative: Patient is a 79-year-old female who presented to the emergency department chief complaint of constipation and nausea. On the differential diagnosis includes but limited to bowel obstruction, constipation, electrolyte abnormality. Once workup is obtained reviewed she will be reevaluated. Patient CBC reviewed and showed no evidence leukocytosis white blood count normal at 7, hemoglobin 13.5, platelet count of 223. Patient sodium was noted to be 127 indicated hyponatremia, potassium low at 3.2 she will be given 40 mill equivalents of oral supplementation here in the emergency department, creatinine was 0.57. Patient's AST and ALT were 18 and 16 respectively, lipase was 16. Patient's urinalysis reviewed and showed no evidence of infection. Patient CT ab pelvis with IV contrast was reviewed and showed no acute or active inflammatory intra-abdominal pathology there is a moderate large colonic stool burden suggesting constipation no significant change in multiple right renal mass lesions as noted. I went back in to reevaluate the patient and she states that she feels worse than when she came in she feels weaker and more shaky. She also states that she is nauseous as well. At this point time will discuss case with hospitalist for admission for generalized weakness, hyponatremia, constipation. Discussed case with hospitalist Dr. Enamorado who will accept patient for admission. Patient was notified is agreeable this plan all question concerns answered. Lab Data Labs: Laboratory Results - last 24 hr 12/07/24 12/07/24 16:46 16:57 WBC 7.0 RBC 4.51 Hgb 13.5 Hct 38.9 MCV 86.3 MCH 29.9 MCHC 34.7 RDW Std Deviation 39.8 RDW Coeff of Sharron 12.7 Plt Count 223 MPV 9.8 Immature Gran % (Auto) 0.100 Neut % (Auto) 63.7 Lymph % (Auto) 12.9 L [place] % (Auto) 8.3 Eos % (Auto) 14.4 H Baso % (Auto) 0.6 Absolute Neuts (auto) 4.5 Absolute Lymphs (auto) 0.90 Nucleated RBC % 0 Differential Comment SCANNED Platelet Estimate ADEQUATE Sodium 127 L Potassium 3.2 L Chloride 88 L Carbon Dioxide 25.1 Anion Gap 14 BUN 20 H Creatinine 0.57 L Estim Creat Clear Calc 49.22 L Est GFR (MDRD) Non-Af 93 BUN/Creatinine Ratio 35.4 H Glucose 128 H Calcium 10.4 Total Bilirubin 0.44 AST 18 ALT 16 Alkaline Phosphatase 56 Total Protein 7.0 Albumin 4.5 Globulin 2.4 Albumin/Globulin Ratio 1.9 Lipase 16 Urine Color Straw Urine Clarity Clear Urine pH 7.0 Ur Specific Hayes 1.010 Urine Protein 15 H Urine Glucose (UA) Normal Urine Ketones Negative Urine Occult Blood 10 H Urine Nitrite Negative Urine Bilirubin Negative Urine Urobilinogen Normal Ur Leukocyte Esterase Negative Urine RBC 0-5 SEEN Urine WBC 0-5 SEEN Ur Squamous Epith Cells 0-5 SEEN Urine Bacteria 0 SEEN Urine Mucus 0 SEEN Radiography Diagnostic Testing: Clinical Impression(s) from Imaging Studies Abdomen/Pelvis CT 12/07/24 18:10 IMPRESSION: 1. No acute or active inflammatory intra-abdominal pathology identified. 2. Moderate-large colonic stool burden suggesting constipation. 3. No significant change in multiple right renal mass lesions as noted. Recommend follow-up. Reading Location: [id number] Discharge Plan Dx/Rx/DC Orders Clinical Impression: Benign essential hypertension, Primary hyperparathyroidism, Constipation, Hypokalemia, Acute hyponatremia, Generalized weakness Disposition Disposition: Acute Care Hospital [facility]
[2024-12-07] MEDS: 0.9% Normal Saline (1000mL) 1,000 ML 999 ML IV (16:37)
[2024-12-07 16:43] VITALS: BMI 20.3
[2024-12-07 17:03] LABS: Mucous, Urine 0 SEEN /hpf (<or=2+)
[2024-12-07 17:11] LABS: Hematocrit 38.9 % (37-47); Hemoglobin 13.5 g/dL (12.0-15.0); Immature Granulocytes Count 0.010 X10^3/uL (0.0-0.0); Mean Corp Hgb Conc 34.7 g/dL (32-36); Mean Corpuscular Volume 86.3 fL (81-99); Mean Platelet Vol. 9.8 fl (6.2-12.0); NRBC Flagged by Analyzer 0 % (0-5); POSITIVE MORPHOLOGY YES; Platelet Count 223 K/mm3 (150-450); RBC Distribution Width CV 12.7 % (11.6-14.6); RBC Distribution Width SD 39.8 fl (35.1-43.9); Red Blood Count 4.51 M/mm3 (4.2-5.4); White Blood Count 7.0 K/mm3 (4.4-11.0)
[2024-12-07 17:25] LABS: Differential Indicated SCAN CRITERIA MET
[2024-12-07 17:34] LABS: AST(SGOT) 18 U/L (<=31); Alanine Aminotransfer ALT/SGPT 16 U/L (<=34); Albumin, Serum 4.5 g/dL (3.4-4.8); Alkaline Phosphatase 56 U/L (35-104); Anion Gap 14 (5-15); BUN 20 mg/dL (4-19); BUN/Creat Ratio 35.4 RATIO (10-20); Calcium,Total 10.4 mg/dL (7.6-11.0); Carbon Dioxide 25.1 mmol/L (21.0-32.0); Chloride 88 mmol/L (98-108); Estimated Creatinine Clearance 49.22 ml/min (50-250); Globulin 2.4 g/dL (2.2-4.2); Glucose 128 mg/dL (70-99); Lipase 16 U/L (13-75); Potassium 3.2 mmol/L (3.3-5.1)
[2024-12-07 18:05] VITALS: BP 145/74; PULSE 56; RESP 16; O2SAT 100
[2024-12-07 18:09] LABS: Color, Urine Straw (Yellow); Glucose, Dipstick Normal (Normal); Ketone-Dipstick Negative (Negative); Leukocyte Esterase-Dipstick Negative /ul (Negative); Nitrite-Dipstick Negative (Negative); Occult Blood-Urine 10 /ul (Negative); Protein-Dipstick 15 mg/dl (Negative); Specific Gravity, Urine 1.010 (1.002-1.030); Urine Bilirubin Dipstick Negative (Negative)
--- NOTE | 2024-12-07 18:10 | CT_ITS ---
PROCEDURE: CT ABDOMEN/PELVIS W IV CONT ONLY 12/07/2024 REASON FOR EXAM: CONSTIPATION, N ABD PAIN TECHNIQUE: Procedure Code: [id number] Modality: CT Procedure: ABDOMEN/PELVIS W IV CONT ONLY Coronal and Sagittal reconstruction series were provided. CONTRAST: Isovue 300 VOLUME: 97 mL One or more dose reduction techniques were used (e.g., Automated exposure control, adjustment of the mA and/or kV according to patient size, use of iterative reconstruction technique. RADIATION DOSE SUMMARY: DLP: 469.9 mGycm COMPARISON: 04/30/2024, 02/21/2024. FINDINGS: Lung bases: Clear. Liver: No significant abnormality. Gallbladder: Surgically absent. Postoperative/age-related prominence of the CBD. Spleen: Unremarkable. Pancreas: Diffuse age-related fatty atrophy. Adrenals: Unremarkable, no discrete nodules. Kidneys: Symmetric enhancement. Stable size/appearance of a 12 mm solid enhancing lesion at the lateral aspect of the lower right kidney. Complex peripherally enhancing cystic lesion measuring up to 22 mm in the anterior aspect of the lower right kidney. Complex heterogeneously enhancing 21 mm lesion within the upper pole of the right kidney. Multifocal cortical thinning/scarring in the left kidney, likely related to reported partial nephrectomy. No hydroureteronephrosis on either side. Bladder: Unremarkable. Reproductive Organs: Grossly unremarkable uterus and adnexae. Bowel: Moderate hiatal hernia containing the stomach fundus and GE junction in the posterior left lower mediastinum. No evidence of bowel obstruction or active inflammatory process. Appendix is not identified with certainty but there are no localized pericecal inflammatory changes. Moderate-large stool burden throughout the colon suggesting constipation. Lymph nodes: No suspicious lymph node enlargement. Vasculature: Abdominal aorta is tortuous but normal in caliber. Moderate atherosclerotic disease. Peritoneum / Retroperitoneum: No ascites or free air. Bones: No acute or aggressive osseous abnormality. Advanced lumbar levoscoliosis. CT/Abdomen/Pelvis W IV Cont ONLY IMPRESSION: 1. No acute or active inflammatory intra-abdominal pathology identified. 2. Moderate-large colonic stool burden suggesting constipation. 3. No significant change in multiple right renal mass lesions as noted. Recomme nd follow-up. Reading Location: [id number]
[2024-12-07 20:00] VITALS: BP 125/83; PULSE 59; RESP 18; O2SAT 100
[2024-12-07 20:10] LABS: Differential Comment SCANNED
[2024-12-07 20:28] LABS: Red Blood Cells-Urine 0-5 SEEN /hpf (0-5); Squamous Epithelial Cells - UA 0-5 SEEN /hpf (5-10)
[2024-12-07] MEDS: Potassium Chloride Oral Soln 20 MEQ/15 ML UDC 40 MEQ PO (20:48)
[2024-12-07 21:16] VITALS: BP 125/83; PULSE 59; RESP 18; TEMP 36.7; O2SAT 100
--- NOTE | 2024-12-07 21:17 | PCM.HP.STD ---
[facility] - General General Date of Admission: 12/07/24 Date of Service: 12/07/24 Chief Complaint: Constipation, Nausea and Generalized Weakness. HPI Dolores ANDRE (BONNIE), is a 79 F with a past medical history of essential hypertension; on losartan BID, diltiazem and hydrochlorothiazide, former tobacco abuse, IBS; of constipation-type on linaclotide plus lactulose TID, OAB with history of bladder prolapse; on oxybutynin BID, depression with anxiety; on lorazepam daily, osteoporosis; on vitamin D3 plus denosumab q. 6 months, history of primary hyperparathyroidism, seasonal allergies; on cetirizine, fexofenadine and fluticasone NS, GERD; on omeprazole, history of diverticulosis and colonic stricture; s/p colonoscopy (03/2024), history of bowel obstruction, history of cholecystectomy, remote history of tubal ligation, OA; s/p TKR and sciatica with scoliosis and lumbar radiculopathy plus history of renal cell carcinoma; s/p partial Left nephrectomy (2011) who presents to [facility] ER complaining of constipation, nausea and generalized weakness. Ms. Andre reports her symptoms began approximately 3-4 days prior to admission with acute worsening of chronic constipation in spite of taking linaclotide and lactulose. She states she has taken polyethylene glycol in the past which did not help her. She admits to having a large bowel movement earlier today that was painful with a large stool burden which left her feeling shaky and generally weak overall. She states she has been eating normally and denies vomiting. She also admits to pain in her right shoulder since a fall in August with multiple providers having evaluated her for this with suspicion for a possible rotator cuff tear with recent steroid injection by orthopedist Dr. Luciano on November 09, 2024. She denies associated fever, chills, changes in vision, discharge from eyes, chest pain, palpitations, heart racing, lower extremity edema, shortness of breath, cough, dysuria, hematuria, headache or rash. In the ER she was noted to have Hyponatremia of 127 mmol/L with Hypokalemia of 3.2 mmol/L present on admission both due to suspected Adverse Drug Reaction to hydrochlorothiazide with a corresponding CT scan of the abdomen and pelvis with IV contrast that revealed no acute or active inflammatory intra-abdominal pathology identified with moderate-large colonic stool burden suggesting constipation and no significant change in Multiple Right Renal Mass Lesions with follow-up recommended complicated by clinical evidence of Acute-on Chronic Constipation compounded by Generalized Weakness. She was then admitted to the PCU for ongoing care for status is expected to extend beyond 2 midnights. [facility] Medical History Wears glasses Cancer Anxiety Ambulates with cane History of renal disease Bladder disease History of hiatal hernia Gastric reflux Former smoker Gait disturbance Diverticular disease Primary hyperparathyroidism Sciatica Age related osteoporosis Bowel obstruction Scoliosis Lumbar radiculopathy Hx of renal cell carcinoma Osteoporosis GERD (gastroesophageal reflux disease) Hypoglycemia HTN (hypertension) Bladder prolapse Home Medications Medication Instructions Recorded Last Taken Type cholecalciferol (vitamin D3) 25 2,000 unit PO DAILY SUPPLEMENT 12/26/15 12/06/24 History mcg (1,000 unit) tablet (Vitamin D3) oxybutynin chloride 5 mg tablet 5 mg PO BID BLADDER 12/26/15 12/07/24 History diltiazem HCl 180 mg capsule,24 360 mg PO DAILY htn 09/08/20 12/07/24 History hr,extended release lorazepam 0.5 mg tablet 0.5 mg PO DAILY ANXIETY 09/08/20 12/07/24 History acetaminophen 500 mg tablet 500 mg PO Q6H PRN pain 08/23/22 12/07/24 History (Tylenol Extra Strength) cetirizine 5 mg tablet 5 mg PO DAILY PRN allergy symptoms 08/23/22 Unknown History fluticasone propionate 50 1 spray intranasal DAILY PRN 08/23/22 Unknown History mcg/actuation nasal allergy symptoms spray,suspension omeprazole 40 mg capsule,delayed 40 mg PO DAILY GERD 08/23/22 12/06/24 History release denosumab 60 mg/mL subcutaneous 60 mg subcut [id number] OSTEOPOROSIS 10/03/22 Unknown Rx syringe (Prolia) #1 mL Lactobacillus rhamnosus GG 20 1 cell PO DAILY G[facility] 12/16/23 12/06/24 History billion cell capsule (Probiotic Digestive Care) ondansetron 8 mg disintegrating 8 mg PO Q8H PRN nausea and 02/21/24 Unknown Rx tablet vomiting #15 tabs losartan 50 mg tablet 50 mg PO BID HTN 06/08/24 12/07/24 History docusate sodium 100 mg capsule 100 mg PO TID constipation #90 caps 08/11/24 12/07/24 Rx linaclotide 145 mcg capsule 145 mcg PO QAM IBS #30 caps 11/09/24 12/07/24 Rx (Linzess) lactulose 10 gram/15 mL oral 10 g (15 mL) PO TID CONSTIPATION 11/13/24 12/07/24 Rx solution #1,200 mL dextrin 3 gram/4 gram oral powder 3 g PO DAILY constipation 12/07/24 Unknown History (Clear Fiber) fexofenadine 180 mg tablet 180 mg PO DAILY ALLERGY SYMPTOMS 12/07/24 12/06/24 History (Louisa Allergy) hydrochlorothiazide 50 mg tablet 50 mg PO DAILY DIURETIC 12/07/24 12/07/24 History olopatadine 0.2 % eye drops 1 drp EACH EYE DAILY allergies 12/07/24 Unknown History (Pataday Once Daily Relief) sennosides 17.2 mg tablet (Senokot 17.2 mg PO DAILY constipation 12/07/24 Unknown History Extra Strength) sennosides 17.2 mg tablet (Senokot 34.4 mg PO QHS constipation 12/07/24 Unknown History Extra Strength) Allergy/AdvReac Type Severity Reaction Status Date / Time lisinopril Allergy Swelling Verified 12/07/24 16:06 hydrochlorothiazide AdvReac Intermediate Hyponatremia Verified 12/07/24 21:39 and Hypokalemia esomeprazole (From Nexium) AdvReac Nausea/Vom/ Verified 12/07/24 16:06 Diarrhea Family History Father Alcoholism Brother Alcoholism Mother Arthritis Hypertension Osteoporosis Surgical History Hx of colonoscopy History of tubal ligation History of cholecystectomy History of knee replacement H/O partial nephrectomy Social History Smoking Status: Former smoker alcohol intake: never what type of physical activity do you participate in: bicycling ROS ROS Narrative Review of Systems: Constitutional: Patient denies fever or chills. Eyes: Patient denies changes in vision or discharge from eyes. ENT: Patient denies runny nose, sore throat or ear pain. Resp: Patient denies shortness of breath or cough. CV: Patient denies chest pain, palpitations, heart racing or lower extremity edema. GI: Patient admits to nausea and constipation but is still having bowel movements as per HPI. She denies vomiting or abdominal pain. : Patient denies dysuria or hematuria. MSK: Patient admits to generalized weakness but she denies arthralgias or myalgias. Skin: Patient denies rash, abscess, wounds or jaundice. Psych: Patient denies symptoms uncontrolled depression or anxiety. Neuro: Patient denies headache, paresthesias or focal neurologic deficits. Allergy: Patient denies lip swelling, tongue swelling or urticaria. Hematology: Patient denies easy bleeding or easy bruisability. Endocrinology: Patient denies polyuria, polydipsia, polyphagia or heat/cold intolerance. 14 point ROS otherwise negative except for positives noted above in HPI. Vital Signs Vital Signs Vital Signs: 12/07/24 16:06 12/07/24 16:39 12/07/24 18:05 Temperature 98.1 F Temperature Source Temporal Pulse Rate 85 56 L Respiratory Rate 24 H 16 Respiratory Effort Normal Respiratory Pattern Normal Blood Pressure 167/102 H 145/74 H Blood Pressure Mean 123 97 Pulse Ox 98 100 Oxygen Delivery Method Room Air Room Air 12/07/24 20:00 12/07/24 21:16 Temperature 98.1 F Temperature Source Pulse Rate 59 L 59 L Respiratory Rate 18 18 Respiratory Effort Respiratory Pattern Blood Pressure 125/83 H 125/83 H Blood Pressure Mean 97 97 Pulse Ox 100 100 Oxygen Delivery Method Room Air Weight Weight: 118 lb 9.739 oz Body Mass Index (BMI) 20.3 Physical Exam Const alert, oriented x3, no apparent distress and average body habitus Constitutional Narrative: Patient appears frail and chronically ill but nontoxic. General Appearance: cooperative HEENT normocephalic, head/scalp atraumatic, hearing grossly normal bilaterally and moist oral mucous membranes Eyes PERRL, EOMs intact bilaterally and conjunctivae normal Neck no lymphadenopathy, supple and no JVD Resp normal respiratory effort, no retractions, no use of accessory muscles and clear to auscultation bilaterally Cardio regular rate and regular rhythm GI soft to palpation and non-distended GI Narrative: Patient noted generalized mild tenderness to palpation throughout her abdomen. Extremity normal to inspection, full ROM and no clubbing, cyanosis or edema Skin Skin Narrative: Patient has evidence of rash, abscess, wounds or jaundice. Neuro oriented x3, CN's II-XII intact bilaterally, moves all extremities and no focal motor deficits Sensorium / Orientation: awake, alert, oriented to person, oriented to place and oriented to time Speech: speech normal Psych affect normal Results Medical Records Data Attestation: I reviewed the patient's medical records Lab / Micro Data Attestation: I reviewed the patient's lab results. 12/08/24 04:53 12/07/24 16:46 Labs: Laboratory Results - last 24 hr 12/07/24 16:46: WBC 7.0, RBC 4.51, Hgb 13.5, Hct 38.9, MCV 86.3, MCH 29.9, MCHC 34.7, RDW Std Deviation 39.8, RDW Coeff of Sharron 12.7, Plt Count 223, MPV 9.8, Immature Gran % (Auto) 0.100, Neut % (Auto) 63.7, Lymph % (Auto) 12.9 L, Dawson % (Auto) 8.3, Eos % (Auto) 14.4 H, Baso % (Auto) 0.6, Absolute Neuts (auto) 4.5, Absolute Lymphs (auto) 0.90, Nucleated RBC % 0, Differential Comment SCANNED, Platelet Estimate ADEQUATE, Sodium 127 L, Potassium 3.2 L, Chloride 88 L, Carbon Dioxide 25.1, Anion Gap 14, BUN 20 H, Creatinine 0.57 L, Estim Creat Clear Calc 49.22 L, Est GFR (MDRD) Non-Af 93, BUN/Creatinine Ratio 35.4 H, Glucose 128 H, Calcium 10.4, Total Bilirubin 0.44, AST 18, ALT 16, Alkaline Phosphatase 56, Total Protein 7.0, Albumin 4.5, Globulin 2.4, Albumin/Globulin Ratio 1.9, Lipase 16 12/07/24 16:57: Urine Color Straw, Urine Clarity Clear, Urine pH 7.0, Ur Specific [place] 1.010, Urine Protein 15 H, Urine Glucose (UA) Normal, Urine Ketones Negative, Urine Occult Blood 10 H, Urine Nitrite Negative, Urine Bilirubin Negative, Urine Urobilinogen Normal, Ur Leukocyte Esterase Negative, Urine RBC 0-5 SEEN, Urine WBC 0-5 SEEN, Ur Squamous Epith Cells 0-5 SEEN, Urine Bacteria 0 SEEN, Urine Mucus 0 SEEN Imaging Radiology Impression Abdomen/Pelvis CT 12/07/24 18:10 IMPRESSION: 1. No acute or active inflammatory intra-abdominal pathology identified. 2. Moderate-large colonic stool burden suggesting constipation. 3. No significant change in multiple right renal mass lesions as noted. Recommend follow-up. Reading Location: [id number] Imaging Services [address] [place] [address] [id number] Extremity Upper without Contra MR#: [id number] Acct: [id number] Name: LEONEL ANDRE (BONNIE) Rep #: [id number] : 1945 F 79 From: Evelio Ghosh MD PCP: Dr. Femi Baeza MD Status: ADM IN Study: Extremity Upper without Contra Date of Exam: 12/08/24 Exam# [id number] Ordering Dr: Ranjeet Aldana DO PROCEDURE: EXTREMITY UPPER WITHOUT CONTRA 12/08/2024 REASON FOR EXAM: EXPECTED TURN ROTATOR CUFF TECHNIQUE: Procedure Code: [id number] Modality: CT Procedure: EXTREMITY UPPER WITHOUT CONTRA Coronal and Sagittal reconstruction series were provided. One or more dose reduction techniques were used (e.g., Automated exposure control, adjustment of the mA and/or kV according to patient size, use of iterative reconstruction technique. FINDINGS: No acute fracture or dislocation. There is a high riding humeral head with severe subacromial space narrowing. The humeral head contacts the inferior surface of the acromion. Additional degenerative changes including marginal osteophytosis and subchondral cyst formation are noted within the humeral head. There is borderline widening of the acromioclavicular joint, measuring 5.4 mm. Grossly, the acromioclavicular ligament appears intact. Additional degenerative changes are noted at the glenohumeral joint including joint space narrowing, subchondral cyst formation, and marginal osteophytosis. Moderate degenerative changes are noted within the visualized cervicothoracic spine including joint space narrowing, small Schmorl's nodes, and marginal osteophytosis. CT/Extremity Upper without Contra IMPRESSION: 1. High-riding humeral head with severe subacromial space narrowing, suggestive of a chronic rotator cuff injury. 2. Moderate degenerative changes at the acromioclavicular joint. 3. Borderline widening of the acromioclavicular joint. Reading Location: [facility] Assessment & Plan Assessment/Plan (1) Acute hyponatremia: (2) Hypokalemia: (3) Adverse drug reaction: QUALIFIERS: Encounter type: initial encounter Qualified Code(s): T50.905A - Adverse effect of unspecified drugs, medicaments and biological substances, initial encounter (4) Acute constipation: (5) History of chronic constipation: (6) Colonic stricture: (7) Generalized weakness: (8) History of primary transitional cell carcinoma of left kidney: (9) History of partial nephrectomy: PLAN: Plan 1. Hyponatremia of 127 mmol/L with Hypokalemia of 3.2 mmol/L both present on admission - Admit to PCU. Continue NS IVF with supplemental KCl. Patient was also treated with additional oral KCl in ER. Check urine and serum osmolality. Normal urine specific gravity of 1.01 present on admission noted. Give acetaminophen prn for pain or fever. Give ondansetron IV prn for nausea and vomiting. 2. Adverse Drug Reaction to hydrochlorothiazide likely causing #1 - Stop hydrochlorothiazide and add to list of allergies to prevent recurrence. 3. [id number] Constipation with colonic stricture complicating #1 & #2 in the setting of previously known IBS; of constipation-type on linaclotide plus lactulose TID - Maintain current bowel regimen plus give soap suds enema to encourage bowel evacuation. 4. Generalized Weakness attributable to #1 - #3 in the setting of previously diagnosed OA; s/p TKR and sciatica with scoliosis and lumbar radiculopathy - PT/OT and Case Management to consult and treat on-rounds in AM for further recommendations with help appreciated in advance. Check CT scan of the Right shoulder to confirm suspected Right rotator cuff tear after recent steroid injection by orthopod. 5. History of renal cell carcinoma; s/p partial Left nephrectomy (2011) with corresponding CT scan of the abdomen and pelvis with IV contrast that revealed no acute or active inflammatory intra-abdominal pathology identified with moderate-large colonic stool burden suggesting constipation and no significant change in Multiple Right Renal Mass Lesions with follow-up recommended compounding #1 - #4 - Patient would likely benefit from formal oncology consultation at time of discharge. Finally, we will consult Dr. Negro of urology to see this patient on-rounds in the AM for further recommendations regarding potential Right partial nephrectomy with help appreciated in advance. 6. Essential hypertension; on losartan BID, diltiazem and hydrochlorothiazide - Continue home regimen (except HCTZ) plus give prn IV hydralazine for systolic blood pressure > 160 mmHg. 7. Former tobacco abuse - Noted. 8. OAB with history of bladder prolapse; on oxybutynin BID - Resume oxybutynin as before. 9. Depression with anxiety; on lorazepam daily - Continue prn lorazepam as previous. 10. Osteoporosis; on vitamin D3 plus denosumab q. 6 months - Maintain vitamin D3 and restart denosumab as outpatient. 11. History of primary hyperparathyroidism - Stable with normal serum calcium of 10.4 mg/dL present on admission. 12. Seasonal allergies; on cetirizine, fexofenadine and fluticasone NS - Current therapy to continue. 13. GERD; on omeprazole - Maintain PPI. 14. History of diverticulosis; s/p colonoscopy (03/2024) - Noted. 15. History of bowel obstruction - Noted with no evidence of recurrence on abdominal/pelvic CT this admission. 16. History of cholecystectomy - Noted. 17. Remote history of tubal ligation - Noted for the sake of completeness. 18. DVT prophylaxis - Enoxaparin 40 mg sq daily plus SCD's. Total time: Approximately (but not less than) 75 minutes. Charges/Coding Visit Charges Inpatient E&M: 56240 Init Hosp L3
--- OUTSIDE RECORDS SUMMARY | 2024-12-07 22:02 | XMS RPT_ITS | CCD ---
Author Organization [facility] Care Team Providers Care Designer/Writer Name Role Phone Femi Baeza MD Primary Care Provider Dr. Femi Baeza Primary Care Provider Dr. Femi Baeza Referring Provider Dr. César Johnson Attending Provider Femi Baeza MD Primary Care Provider Femi Baeza MD Primary Care Provider Abi POTATO PEELER.SNUFF MAKER, Xuan M Unavailable Dr. Femi Baeza MD Primary Care Provider Aryan SMITH, Dr. Kahn Referring Provider Tyrese Carty Attending Provider Dr. César Johnson MD Attending Provider Dr. César Johnson MD Referring Provider Dr. Reinier Aviles MD Attending Provider Dr. Reinier Aviles MD Emergency Provider Dr. Juan Shaffer DO Attending Provider Dr. Juan Shaffer DO Emergency Provider Dr. Librado Vasquez MD Attending Provider [phone] Dr. Librado Vasquez MD Emergency Provider [phone] Zonia Biggs Attending Provider Dr. Krzysztof Arroyo DO Attending Provider Dr. Krzysztof Arroyo DO Other Provider Zoina Biggs Referring Provider Aryan SMITH, Dr. Kahn Primary Care Provider Aryan SMITH, Dr. Kahn Referring Provider Aryan SMITH, Dr. Kahn Primary Care Provider Pdero SMITH, Dr. Pavon Attending Provider Pedro SMITH, Dr. Pavon Emergency Provider [phone] Dominic STOCK TRACER-CNola Attending Provider Aryan SMITH, Dr. Kahn Primary Care Provider Aryan SMITH, Dr. Kahn Referring Provider Dr. Krzysztof Arroyo DO Attending Provider Cruz HAWKINS, Dr. Blankenship Other Provider Zonia Biggs Attending Provider Abi STOCK TRACER-C, Xuan Attending Provider Aryan SMITH, Dr. Kahn Primary Care Provider Aryan SMITH, Dr. Kahn Referring Provider Abi STOCK TRACER-C, Xuan Attending Provider FEMI BAEZA Primary Care Unavailable OLDER, XUAN Attending Unavailable FEMI BAEZA Attending Unavailable BAEZA, FEMI Bangura Primary Care Unavailable BAEZAFEMI Fuller Referring Unavailable BAEZA, FEMI Bangura Primary Care Unavailable BAEZA, FEMI Bangura Primary Care Unavailable BAEZA, FEMI Bangura Attending Unavailable BAEZA, FEMI Bangura Attending Unavailable BAEZA, FEMI Bangura Primary Care Unavailable BAEZA, FEMI Bangura Primary Care Unavailable OLDER, XUAN Attending Unavailable BAEZA, ASHLEY Primary Care Unavailable BAEZA, FEMI Bangura Attending Unavailable BAEZA, FEMI Bangura Referring Unavailable BAEZA, FEMI Bangura Primary Care Unavailable BAEZA, FEMI Bangura Primary Care Unavailable BAEZA, FEMI Bangura Attending Unavailable BAEZA, FEMI Bangura Primary Care Unavailable BAEZA, FEMI Bangura Attending Unavailable BAEZA, ASHLEY Primary Care Unavailable OLDER, XUAN Referring Unavailable BAEZA, ASHLEY Primary Care Unavailable OLDER, XUAN Attending Unavailable BAEZA, ASHLEY Attending Unavailable BAEZA, ASHLEY Primary Care Unavailable BAEZA, ASHLEY Referring Unavailable BAEZA, ASHLEY Primary Care Unavailable BAEZA, ASHLEY Primary Care Unavailable OLDER, XUAN Referring Unavailable Aryan SMITH, Dr. Kahn Primary Care Provider Aryan SMITH, Dr. Kahn Referring Provider [phone] Dr. Con Luciano DO Attending Provider Butch SMITH, Dr. Reed Attending Provider Aryan, Femi Primary Care Unavailable Derek Rae Attending Unavailable Baeza, Femi Primary Care Unavailable Baeza, Femi Referring Unavailable Tyrese Carty Attending Unavailable Krzysztof Arroyo Attending Unavailable Baeza, Femi Referring Unavailable Baeza, Femi Primary Care Unavailable Krzysztof Arroyo Attending Unavailable Baeza, Femi Referring Unavailable Baeza, Femi Primary Care Unavailable Peewee Negro Referring Unavailable Sruthi, Peewee Serrano Attending Unavailable Baeza, Femi Primary Care Unavailable Abi STOCK TRACER, Xuan Attending Unavailable Baeza, Femi Primary Care Unavailable Zonai Lawrence Referring Unavailable Baeza, Femi Primary Care Unavailable Zonia Lawrence Attending Unavailable Baeza, Femi Primary Care Unavailable César Johnson Referring Unavailable César Johnson Attending Unavailable Baeza, Femi Referring Unavailable Baeza, Femi Primary Care Unavailable Zonia Lawrence Attending Unavailable Nola Alfaro Attending Unavailable Baeza, Femi Primary Care Unavailable Baeza, Femi Referring Unavailable Zonia Lawrence Attending Unavailable Baeza, Femi Referring Unavailable Baeza, Femi Primary Care Unavailable Krzysztof Arroyo Attending Unavailable Krzysztof Arroyo Consulting Unavailable Baeza, Femi Primary Care Unavailable Baeza, Femi Referring Unavailable Krzysztof Arroyo Attending Unavailable Krzysztof Arroyo Consulting Unavailable Baeza, Femi Referring Unavailable Baeza, Femi Primary Care Unavailable Baeza, Femi Primary Care Unavailable Baeza, Femi Referring Unavailable Zonia Lawrence Attending Unavailable Refugio Andersen Attending Unavailable Baeza, Femi Primary Care Unavailable Baeza, Femi Referring Unavailable Baeza, Femi Primary Care Unavailable Baeza, Femi Referring Unavailable César Johnson Attending Unavailable Zonia Lawrence Attending Unavailable Baeza, Femi Referring Unavailable Baeza, Femi Primary Care Unavailable Baeza, Femi Primary Care Unavailable Reinier Aviles Attending Unavailable Baeza, Femi Primary Care Unavailable Juan Shaffer Attending Unavailable Librado Vasquez Attending Unavailable Baeza, Femi Primary Care Unavailable Librado Vasquez Attending Unavailable Baeza, Femi Primary Care Unavailable Baeza, Femi Primary Care Unavailable Calvin Andrews Attending Unavailable Con Luciano Attending Unavailable Baeza, Femi Referring Unavailable Baeza, Femi Primary Care Unavailable Allergies Allergy Classification Reported Allergen(s) Allergy Type Date of Onset Reaction(s) Facility (20 sources) Dust; Translations: [DUST] Propensity to adverse reactions 5 [facility] Work Phone: (20 sources) Escitalopram; Translations: [ESCITALOPRAM OXALATE] Drug Allergy 6 Other: See Comments [facility] Work Phone: (20 sources) Esomeprazole; Translations: [ESOMEPRAZOLE MAGNESIUM] Drug Allergy 5 Vomiting, Diarrhea [facility] Work Phone: (20 sources) Lisinopril; Translations: [LISINOPRIL] Drug Allergy 1 Swelling [facility] Work Phone: (20 sources) Mold Extract; Translations: [MOLD] Drug Allergy 5 [facility] Work Phone: (20 sources) Ragweed; Translations: [RAGWEED] Propensity to adverse reactions 5 [facility] Work Phone: (20 sources) Seasonal [Other] Propensity to adverse reactions 6 [facility] Work Phone: (13 sources) Esomeprazole Drug Allergy 2 Nausea/Vom/Diar [facility] (1 source) Esomeprazole Drug Allergy 5 [facility] (1 source) Lisinopril Drug Allergy 5 [facility] Medications Current Medications Medication Drug Class(es) Dates Sig (Normalized) Sig (Original) acetaminophen 500 mg oral tablet (20 sources) Start: 08-23-2022 take 1 tablet by mouth every six hours as needed for pain Acetaminophen (Tylenol Extra Strength) 500 mg tablet Active 500 mg PO EVERY 6 HOURS as needed for pain August 23, 2022 12:00am ACETAMINOPHEN (T YLENOL ARTHRITIS ORAL) Take by mouth. Active ACETAMINOPHEN (T YLENOL ARTHRITIS ORAL) Take by mouth. 0 Active Comment on above: Take by mouth. amoxicillin 875 mg / clavulanate 125 mg oral tablet (1 source) Penicillin-class Antibacterial Start: 025 End: 025 take 1 tablet by mouth twice daily amoxicillin-clavulan ate potassium (AUGMENTIN) 875-125 mg per tablet Take 1 tablet by mouth two times a day for 7 days. 14 tablet 08/03/2024 08/10/2024 Active cetirizine hydrochloride 5 mg oral tablet (9 sources) Histamine-1 Receptor Antagonist Start: 023 take 1 tablet by mouth once daily as needed Cetirizine 5 mg tablet Active 5 mg PO DAILY as needed for allergy symptoms August 23, 2022 12:00am cholecalciferol 0.05 mg oral capsule (20 sources) Vitamin D Start: 023 take 1 capsule by mouth once daily Cholecalciferol, Vitamin D3, 50 mcg (2,000 unit) cap Take 1 capsule by mouth once daily. Prescribed by endocrinology (Dr. César Johnson) 10/24/2022 Active Start: 12-02-2019 take 1 capsule by [facility] once daily Cholecalciferol, Vitamin D3, 25 mcg (1,000 unit) cap Indications: Vitamin D deficiency Take 1 capsule by mouth once daily. 0 12/02/2019 Active Start: 12-26-2015 take 2 tablets by [facility] once daily Cholecalciferol (Vitamin D3) (Vitamin D3) 1,000 UNIT tablet Active 2000 U PO DAILY December 26, 2015 12:00am Start: 12-26-2015 take 1 tablet by [facility] once daily Cholecalciferol (Vitamin D3) (Vitamin D3) 1,000 UNIT tablet Active 1000 UNIT PO DAILY December 26, 2015 12:00am Comment on above: Take 1 capsule by mo ut once daily. Take 1 capsule by [facility] once daily. Prescribed by endocrinology (Dr. César Johnson) 1 ml denosumab 60 mg/ml prefilled syringe (20 sources) RANK Ligand Inhibitor Start: 3 Denosumab (Prolia) 60 mg/mL syringe Active 60 mg SC every 6 months 03 04October 03, 2022 12:00am Age related osteoporosis Age-related osteoporosis without current pathological fracture Comment on above: Once every 6 months. Prescribed by endocrinology (Dr. César Johnson) Dextrin (EASY FIBER) 3 gram/3.5 gram powd (20 sources) Start: 0 take 3 g by mouth once daily Dextrin (EASY FIBER) 3 gram/3.5 gram powd Indications: Constipation, unspecified constipation type Take 3 g by mouth once daily. Mixed with water. 12/02/2019 Active Start: 12-02-2019 take 3 g by mouth once daily D extrin (EASY FIBER) 3 gram/3.5 gram powd Indications: Constipation, unspecified constipation type Take 3 g by mouth once daily. Mixed with water. 0 12/02/2019 Active Comment on above: Take 3 g by mouth on ce daily. Mixed with water. 24 hr dilTIAZem hydrochloride 180 mg extended release oral capsule (20 sources) Calcium Channel Noel Start: 4 End: 5 take 2 capsules by mouth once daily dilTIAZem CR (TAZTIA XT) 180 mg 24 hr capsule Indications: Essential hypertension Take 2 capsules by mouth once daily. 180 capsule 3 05/08/2024 Active Start: 11-03-2023 take 2 capsules by m outh once daily, then take 1 capsule by mouth every twenty-four hours dilTIAZem CR (TAZTIA XT) 180 mg 24 hr capsule Indications: Essential hypertension Take 2 capsules by mouth once daily. Patient should start on November 03, 2023. 180 capsule 3 11/03/2023 Active Start: 11-03-2023 take 2 capsules by m outh once daily, then take 1 capsule by mouth every twenty-four hours dilTIAZem CR (TAZTIA XT) 180 mg 24 hr capsule Indications: Essential hypertension Take 2 capsules by mouth once daily. Patient should start on November 03, 2023. 180 capsule 3 11/03/2023 Active Start: 09-08-2020 Diltiazem Hcl 180 mg capsule,extended release 24 hr Active 360 mg PO DAILY September 08, 2020 12:00am Start: 07-12-2020 End: 09-11-2023 take 2 capsules by mouth once daily dilTIAZem CR (TAZTIA XT) 180 mg 24 hr capsule Indications: Essential hypertension Take 2 capsules by mouth once daily. 180 capsule 3 11/16/2022 09/11/2023 Discontinued Comment on above: Take 2 capsules by m outh once daily. docusate sodium 100 mg oral capsule (20 sources) Start: 03-25-2024 End: 08-11-2024 take 1 capsule by mouth three times daily Docusate Sodium 100 mg capsule Active 100 mg PO THREE TIMES A DAY 90 2 August 11, 2024 6:54am Start: 03-16-2024 End: 03-27-2024 take 1 capsule by mouth once daily Docusate Sodium (Colace) 100 mg capsule Discontinued 100 mg PO DAILY March 16, 2024 1:00am March 27, 2024 11:39am Start: 03-02-2024 take 1 capsule by mo ut twice daily docusate sodium (COLACE) 100 mg capsule Indications: Constipation, unspecified constipation type Take 1 capsule by mouth two times a day. 60 capsule 03/02/2024 Active fluticasone propionate 0.05 mg/actuat metered dose nasal spray (20 sources) Corticosteroid Start: 08-23-2022 Fluticasone Pr opionate 50 mcg/actuation spray,suspension Active 1 NMA INTRANASAL DAILY August 23, 2022 12:00am administer into each nostril Start: 08-23-2022 take 1 spray(s) nas[facility] route once daily Fluticasone Propionate Active 1 SPRAY INTRANASAL DAILY August 23, 2022 12:00am administer into each nostril Start: 03-18-2017 take 2 spray(s) by m outh once daily fluticasone (FLONASE) 50 mcg/actuation nasal spray Indications: Sinobronchitis Use 2 Sprays in each nostril once daily. Rinse mouth after use. 1 Bottle 03/18/2017 Active Comment on above: Use 2 Sprays in each nostril once daily. Rinse mouth after use. hydroCHLOROthiazide 50 mg oral tablet (20 sources) Thiazide Diuretic Start: 025 take 1 tablet by mouth once daily hydroCHLOROthiazide 50 mg tablet Indications: Lower leg edema , Essential hypertension Take 1 tablet by mouth once daily. 90 tablet 1 10/28/2024 Active Start: 06-25-2024 End: 10-28-2024 take 1 tablet by mouth once daily in the morning Hydrochlorothiazide 25 mg tablet Active 25 mg PO EVERY MORNING July 15, 2024 12:00am Start: 12-26-2015 End: 08-23-2022 take 1 tablet by mouth once daily Hydrochlorothiazide 25 MG tablet Discontinued 25 mg PO DAILY December 26, 2015 12:00am August 23, 2022 2:03pm lactobacillus comb no.10 (PROBIOTIC) 20 billion cell cap (20 sources) take 1 capsule by mo uth once daily at bedtime lactobacillus comb no.10 (PROBIOTIC) 20 billion cell cap Take 1 capsule by mouth daily at bedtime. Active take 1 capsule by mo uth once daily at bedtime lactobacillus comb no.10 (PROBIOTIC) 20 billion cell cap Take 1 capsule by mouth daily at bedtime. 0 Active Comment on above: Take 1 capsule by mo uth daily at bedtime. lactobacillus rhamnosus gg [id number] unt oral capsule (7 sources) Start: Lactobacillus Rhamnosus Gg (Probiotic Digestive Care) 20 billion cell capsule Active 1 NMA PO DAILY December 16, 2023 12:00am Lactulose (20 sources) Osmotic Laxative Start: take 10 g by mouth three times daily Lactulose 10 gram/15 mL solution Active 10 g PO THREE TIMES A DAY 1200 November 09, 2024 8:21am Start: 10-28-2024 take 15 mL by mouth three times daily lactulose 10 gram/15 mL solution Indications: Chronic idiopathic constipation Take 15 mL by mouth three times a day. 10/28/2024 Active Start: 07-15-2024 End: 11-09-2024 take 10 g by mouth once daily Lactulose 10 gram/15 mL solution Discontinued 10 g PO daily 473 1 October 08, 2024 9:30am November 09, 2024 8:21am Start: 07-15-2024 End: 08-07-2025 take 10 g by mouth once daily Lactulose 10 gram/15 mL solution Discontinued 10 g PO daily 473 July 15, 2024 12:00am October 08, 2024 9:30am Start: 07-15-2024 take 10 g by mouth once daily Lactulose 10 gram/15 mL solution Active 10 g PO daily 473 July 15, 2024 12:00am Start: 07-15-2024 take 10 g by mouth once daily Lactulose 10 gram/15 mL solution Active 10 g PO daily July 15, 2024 12:00am LORazepam 0.5 mg oral tablet (20 sources) Benzodiazepine Start: 09-08-2020 End: 12-16-2024 take 1 tablet by mouth once daily Lorazepam 0.5 mg tablet Active 0.5 mg PO DAILY September 08, 2020 12:00am Comment on above: Take 1 tablet by [facility] once daily as needed (anxiety) for up to 180 days. 3 months supply. Take 1 tablet by [facility] once daily as needed (anxiety) for up to 90 days. 3 months supply. losartan potassium 50 mg oral tablet (20 sources) Angiotensin 2 Receptor Noel Start: 03-18-2024 End: 10-25-2024 take 1 tablet by mouth twice daily Losartan 50 mg tablet Active 50 mg PO TWICE A DAY June 08, 2024 12:00am Start: 06-11-2022 End: 03-18-2024 take 1 tablet by mouth twice daily losartan (COZAAR) 25 mg tablet Indications: Essential hypertension Take 1 tablet by mouth two times a day. 180 tablet 3 07/08/2023 03/18/2024 Discontinued (Dosage adjustment) Start: 07-19-2021 End: 06-09-2022 take 1 tablet by mouth twice daily losartan (COZAAR) 25 mg tablet Indications: Essential hypertension Take 1 tablet by mouth twice daily. 180 tablet 3 07/19/2021 06/09/2022 Discontinued Start: 08-16-2020 take 1 tablet by [facility] twice daily losartan (COZAAR) 25 mg tablet Indications: Essential hypertension Take 1 tablet by mouth twice daily. 180 tablet 3 08/16/2020 Active Start: 12-26-2015 End: 06-08-2024 take 1 tablet by mouth once daily Losartan 25 MG tablet Discontinued 25 mg PO DAILY December 26, 2015 12:00am June 08, 2024 11:31am Comment on above: Take 1 tablet by [facility] twice daily. Osfcipwn-Ayk-Cv-Lyc open-Lutein (Centrum Silver) 1 EACH tablet (13 sources) Start: 12-26-2015 take 1 tablet by mouth once daily Vnbgmvad-Pkz-Pi-Ly copen-Lutein (Centrum Silver) 1 EACH tablet Active 1 EACH PO DAILY December 26, 2015 2:28pm Start: 12-26-2015 End: 08-23-2022 take 1 tablet by mouth once daily Jbkfnrnt-Pxo-Fj-Lycopen-Lutein (Centrum Silver) 1 EACH tablet Discontinued 1 NMA PO DAILY December 26, 2015 12:00am August 23, 2022 2:03pm Start: 12-26-2015 End: 08-23-2022 take 1 tablet by mouth once daily Clrrxgvh-Jed-Yd-Lycopen-Lutein (Centrum Silver) 1 EACH tablet Discontinued 1 EACH PO DAILY December 26, 2015 12:00am August 23, 2022 2:03pm Start: 12-26-2015 take 1 tablet by [facility] once daily Ymkdjibc-Vyq-Xv-Lycopen-Lutein (Centrum Silver) 1 EACH tablet Active 1 EACH PO DAILY December 26, 2015 12:00am nitrofurantoin, macrocrystals 25 mg / nitrofurantoin, monohydrate 75 mg oral capsule (5 sources) Nitrofuran Antibacterial Start: 11-08-2023 End: 11-15-2023 take 1 capsule by mouth twice daily at mealtime nitrofurantoin monohydrate and macrocrystal (MACROBID) 100 mg capsule Take 1 capsule by mouth two times a day with meals for 7 days. 14 capsule 11/08/2023 11/15/2023 Active Start: 10-24-2022 End: 10-31-2022 take 1 capsule by mouth twice daily at mealtime nitrofurantoin monohydrate and macrocrystal (MACROBID) 100 mg capsule Take 1 capsule by mouth twice daily with meals for 7 days. 14 capsule 0 10/24/2022 10/31/2022 Active Comment on above: Take 1 capsule by mo [facility] twice daily with meals for 7 days. omeprazole 40 mg delayed release oral capsule (20 sources) Proton Pump Inhibitor Start: 09-09-19 End: 06-18-19 take 1 capsule by mouth once daily Omeprazole 40 mg capsule,delayed release(DR/EC) Active 40 mg PO DAILY August 23, 2022 12:00am Comment on above: Take 1 capsule by mo [facility] once daily. ondansetron 8 mg disintegrating oral tablet (7 sources) Serotonin-3 Receptor Antagonist Start: 02-21-20 take 1 tablet by mouth every eight hours as needed for nausea and vomiting Ondansetron 8 mg tablet,disintegrating Active 8 mg PO Q8H as needed for nausea and vomiting 15 February 21, 2024 1:00am oxybutynin chloride 5 mg oral tablet (20 sources) Cholinergic Muscarinic Antagonist Start: 12-26-19 End: 06-18-19 take 1 tablet by mouth twice daily Oxybutynin Chloride 5 MG tablet Active 5 mg PO TWICE A DAY December 26, 2015 12:00am Comment on above: Take 1 tablet by [facility] twice daily. predniSONE 20 mg oral tablet (1 source) Start: 02-04-20 End: 02-09-20 take 1 tablet by mouth once daily predniSONE (DELTASONE) 20 mg tablet Indications: Rhinosinusitis Take 1 tablet by mouth once daily for 5 days. 5 tablet 02/04/2024 2024 Active sodium chloride 0.111 meq/ml nasal spray (9 sources) Start: 08-24-19 Sodium Chloride 0.65 % aerosol,spray Active 1 NMA INTRANASAL DAILY August 23, 2022 12:00am Start: 08-23-2022 Sodium Chlorid e 0.65 % aerosol,spray Active 1 NMA INTRANASAL ONCE August 23, 2022 12:00am Start: 08-23-2022 Sodium Chlorid e Active 1 SPRAY INTRANASAL ONCE August 23, 2022 12:00am Completed/Discontinued Medications Medication Drug Class(es) Dates Sig (Normalized) Sig (Original) acetaminophen 325 mg / HYDROcodone bitartrate 5 mg oral tablet (7 sources) Opioid Agonist Start: 01-13-2024 End: 03-27-2024 Hydrocodone-Acetamino phen 5-325 mg tablet Discontinued 1 {tbl} PO EVERY 6 HOURS NEEDED as needed for Pain 10 3 0 January 13, 2024 March 27, 2024 11:40am Low back pain Gastroesophageal reflux disease Low back pain, unspecified Gastro-esophageal reflux disease without esophagitis alendronic acid 70 mg oral tablet (13 sources) Bisphosphonate Start: 12-26-2015 End: 08-23-2022 take 1 tablet by mouth every week Alendronate 70 MG tablet Discontinued 70 mg PO Q7D@0700 December 26, 2015 12:00am August 23, 2022 2:02pm amoxicillin 500 mg oral tablet (7 sources) Penicillin-class Antibacterial Start: 01-22-2024 End: 03-16-2024 take 1 tablet by mouth three times daily Amoxicillin 500 mg tablet Discontinued 500 mg PO THREE TIMES A DAY January 22, 2024 1:00am March 16, 2024 10:12pm aspirin 81 mg chewable tablet (13 sources) Platelet Aggregation Inhibitor, Nonsteroidal Anti-inflammatory Drug Start: 12-26-2015 End: 08-23-2022 take 1 tablet by mouth once daily Aspirin 81 MG tablet,chewable Discontinued 81 mg PO DAILY December 26, 2015 12:00am August 23, 2022 2:02pm cephalexin 500 mg oral capsule (20 sources) Cephalosporin Antibacterial Start: 06-01-2021 End: 08-23-2022 take 1 capsule by mouth every twelve hours Cephalexin 500 mg capsule Discontinued 500 mg PO EVERY 12 HOURS June 01, 2021 12:00am August 23, 2022 2:02pm Start: 09-08-2020 End: 08-23-2022 take 1 capsule by mouth twice daily Cephalexin 500 mg capsule Discontinued 500 mg PO TWICE A DAY 20 September 08, 2020 12:00am August 23, 2022 2:02pm ciprofloxacin 500 mg oral tablet (7 sources) Quinolone Antimicrobial Start: 08-28-2023 End: 11-22-2023 take 1 tablet by mouth twice daily Ciprofloxacin Hcl 500 mg tablet Discontinued 500 mg PO TWICE A DAY 14 August 28, 2023 12:00am November 22, 2023 2:39pm dexamethasone 1.5 mg oral tablet (10 sources) Corticosteroid Start: 05-23-2022 End: 08-23-2022 take 1 tablet by mouth once daily Dexamethasone 1.5 mg (21 tabs) tablets,dose pack Discontinued 1.5 mg PO DAILY May 23, 2022 12:00am August 23, 2022 2:02pm ergocalciferol 1.25 mg oral capsule (17 sources) Provitamin D2 Compound Start: 2022 End: 10-24-2022 take 1 capsule by mouth two times weekly ergocalciferol 50,000 unit capsule (VITAMIN D2, DRISDOL) Indications: Vitamin D deficiency Take 1 capsule by mouth two times a week. 24 capsule 0 2022 10/24/2022 Discontinued (Discontinued by another Health Care Provider) Start: 07-19-2021 End: 2022 take 1 capsule by mouth every week ergocalciferol 50,000 unit capsule (VITAMIN D2, DRISDOL) Indications: Vitamin D deficiency Take 1 capsule by mouth one time a week. 12 capsule 3 07/19/2021 2022 Discontinued Comment on above: Take 1 capsule by mo uth one time a week. Take 1 capsule by mo uth two times a week. famciclovir 500 mg oral tablet (13 sources) Herpes Simplex Virus Nucleoside Analog DNA Polymerase Inhibitor Start : 09-08 End: 08-23 take 1 tablet by mouth every eight hours Famciclovir 500 mg Tablet Discontinued 500 mg PO Q8H September 08, 2020 12:00am August 23, 2022 2:03pm fexofenadine hydrochloride 180 mg oral tablet (20 sources) Histamine-1 Receptor Antagonist Start : 09-08 End: 08-23 take 1 tablet by mouth once daily Fexofenadine 180 mg Tablet Discontinued 180 mg PO DAILY September 08, 2020 12:00am August 23, 2022 2:03pm Comment on above: Take 180 mg by mouth once daily. linaclotide 0.145 mg oral capsule (20 sources) Guanylate Cyclase-C Agonist Start : 05-15 End: 11-09 take 1 capsule by mouth once daily in the morning Linaclotide (Linzess) 145 mcg capsule Discontinued 145 ug PO EVERY MORNING 30 2 August 11, 2024 6:54am November 09, 2024 8:21am lubiprostone 0.024 mg oral capsule (2 sources) Chloride Channel Activator Start : 01-16 End: 02-03 take 1 capsule by mouth twice daily at mealtime lubiprostone (AMITIZA) 24 mcg capsule Indications: Chronic idiopathic constipation Take 1 capsule by mouth two times a day with meals. 180 capsule 01/17/2024 02/04/2024 Discontinued (Cost of medication) magnesium oxide 400 mg oral tablet (13 sources) Start : 06-18 End: 08-23 take 1 tablet by mouth twice daily at mealtime Magnesium Oxide 400 MG tablet Discontinued 400 mg PO TWICE DAILY WITH MEALS 14 June 18, 2017 12:00am August 23, 2022 2:03pm Maltodextrin-Aspartame (2 sources) Start : 08-23 End: 11-02 Maltodextrin-Aspartame Discontinued EACH PO August 23, 2022 12:00am November 02, 2022 1:04pm Maltodextrin-Aspartame 3 gram/6 gram powder in packet (7 sources) Start : 08-23 End: 11-02 Maltodextrin-Aspartame 3 gram/6 gram powder in packet Discontinued NMA PO August 23, 2022 12:00am November 02, 2022 1:04pm methylPREDNISolone 4 mg oral tablet (7 sources) Corticosteroid Start : 11-21 End: 11-27 take 1 tablet by mouth once Methylprednisolone (Medrol (Darren)) 4 mg tablets,dose pack Discontinued 4 mg PO per package directions 21 6 November 22, 2023 12:00am November 27, 2023 12:00am November 28, 2023 12:07am phenazopyridine hydrochloride 200 mg oral tablet (10 sources) Start : 01-12 End: 03-16 take 1 tablet by mouth three times daily Phenazopyridine (Pyridium) 200 mg tablet Discontinued 200 mg PO THREE TIMES A DAY January 13, 2024 1:00am March 16, 2024 10:13pm polyethylene glycol 3350 20949 mg powder for oral solution (13 sources) Osmotic Laxative Start : 06-18 End: 08-23 take 17 g by mouth once daily Polyethylene Glycol 3350 17 GM packet Discontinued 17 g PO DAILY 30 0 June 18, 2017 12:00am August 23, 2022 2:04pm potassium chloride 20 meq extended release oral tablet (20 sources) Start : 02-20 End: 03-16 take 1 tablet by mouth twice daily Potassium Chloride 20 mEq tablet extended release Discontinued 20 meq PO TWICE A DAY 8 0 February 21, 2024 1:00am March 16, 2024 10:13pm Start: 06-18-2017 End: 08-23-2022 take 2 tablets by mouth once daily Potassium Chloride 20 MEQ tablet Discontinued 40 meq PO DAILY 30 0 June 18, 2017 12:00am August 23, 2022 2:04pm Start: 06-18-2017 End: 08-23-2022 take 40 mEq by mouth once daily Potassium Chloride Dis continued 40 MEQ PO DAILY June 18, 2017 12:00am August 23, 2022 2:04pm prednisoLONE acetate 10 mg/ml ophthalmic suspension (9 sources) Corticosteroid Start: 08-23-2022 End: 11-22-2023 Prednisolone Acetate 1 % drops,suspension Discontinued 1 NMA OPHTHALMIC Q12H as needed for allergic symptoms August 23, 2022 12:00am November 22, 2023 2:39pm sennosides, fci 17.2 mg oral tablet (20 sources) Start: 12-02-2019 End: 03-16-2024 take 1 tablet by mouth once daily Sennosides (Senokot Extra Strength) 17.2 mg tablet Discontinued 17.2 mg PO daily December 16, 2023 12:00am March 16, 2024 10:14pm Comment on above: Take 1 tablet by [facility] th daily with lunch AND 2 tablets daily at bedtime. 100 ml zoledronic acid 0.05 mg/ml injection (9 sources) Bisphosphonate Start: 08-23-2022 End: 10-03-2022 Zoledronic Yyih-Licmgmlx-Uakow (Reclast) 5 mg/100 mL piggyback Discontinued 1 NMA .Route August 23, 2022 12:00am October 03, 2022 4:24pm every 6 months Problems Active Problems Problem Classification Problem Date Documented Da te Episodic/Chronic Anxiety disorders (20 sources) Anxiety; Translations: [Anxiety disorder, unspecified] Onset: 6 01-21-2017 Chronic Cancer of kidney and renal pelvis (20 sources) Clear cell carcinoma of kidney; Translations: [Malignant neoplasm of kidney, except pelvis] Onset: 2 Resolved: 4 12-07-2013 Chronic Diverticulosis and diverticulitis (7 sources) Diverticular disease; Translations: [Diverticulosis of intestine, part unspecified, without perforation or abscess without bleeding] 12-16-2023 Chronic E Codes: Fall (3 sources) Fall on same level from slipping, tripping or stumbling ; Translations: [Fall on same level from slipping, tripping and stumbling without subsequent striking against object, initial encounter] Onset: 5 09-08-2024 Episodic Esophageal disorders (20 sources) Gastroesophageal reflux disease; Translations: [Gastro-esophageal reflux disease without esophagitis] Onset: 5 11-08-2004 Chronic Essential hypertension (20 sources) Essential hypertension; Translations: [Essential (primary) hypertension] Onset: 5 Chronic Fluid and electrolyte disorders (20 sources) Hypokalemia; Translations: [Hypokalemia] 06-16-2017 Episodic Genitourinary symptoms and ill-defined conditions (20 sources) Urge incontinence of urine; Translations: [Urge incontinence] Onset: 2 11-28-2011 Chronic Genitourinary symptoms and ill-defined conditions (20 sources) Dysuria; Translations: [Dysuria] Onset: 1 Resolved: 2 Episodic Immunizations and screening for infectious disease (3 sources) Patient encounter status; Translations: [Encounter for immunization] Episodic Malaise and fatigue (12 sources) Malaise; Translations: [Other malaise] 11-26-2021 Episodic Noninfectious gastroenteritis (14 sources) Gastroenteritis; Translations: [Noninfective gastroenteritis and colitis, unspecified] 02-29-2024 Episodic Nutritional deficiencies (20 sources) Vitamin D deficiency; Translations: [Vitamin D deficiency, unspecified] Onset: 8 Chronic Osteoarthritis (20 sources) Osteoarthritis; Translations: [Unspecified osteoarthritis, unspecified site] Onset: 0 Resolved: 2 06-16-2017 Chronic Osteoporosis (20 sources) Osteoporosis; Translations: [Age-related osteoporosis without current pathological fracture] Onset: 5 01-11-2021 Chronic Other acquired deformities (20 sources) Scoliosis deformity of spine; Translations: [Scoliosis, unspecified] Onset: 2 08-29-2011 Chronic Other and unspecified benign neoplasm (2 sources) Polyp of colon; Translations: [Polyp of colon] 07-02-2024 Episodic Other connective tissue disease (2 sources) Tendinitis of right rotator cuff; Translations: [Other shoulder lesions, right shoulder] 11-09-2024 Episodic Other connective tissue disease (1 source) Other shoulder lesions, right shoulder; Translations: [Other shoulder lesions, right shoulder] Onset: 5 Episodic Other diseases of bladder and urethra (13 sources) Overactive bladder; Translations: [Overactive bladder] 06-16-2017 Chronic Other diseases of kidney and ureters (20 sources) Renal mass; Translations: [Other specified disorders of kidney and ureter] Onset: 2 06-19-2021 Chronic Other ear and sense organ disorders (1 source) Impacted cerumen of bilateral ears; Translations: [Impacted cerumen, bilateral] 02-04-2024 Episodic Other endocrine disorders (9 sources) Primary hyperparathyroidism; Translations: [Primary hyperparathyroidism] 08-23-2022 Chronic Other endocrine disorders (3 sources) Primary hyperparathyroidism; Translations: [Primary hyperparathyroidism] Onset: 4 08-23-2022 Chronic Other gastrointestinal disorders (4 sources) Chronic idiopathic constipation; Translations: [Chronic idiopathic constipation] 01-17-2024 Chronic Other gastrointestinal disorders (1 source) Chronic idiopathic constipation; Translations: [Chronic idiopathic constipation] Onset: 9 Chronic Other gastrointestinal disorders (20 sources) Constipation; Translations: [Constipation, unspecified] Onset: 9 01-17-2009 Episodic Other gastrointestinal disorders (16 sources) Diarrhea; Translations: [Diarrhea, unspecified] 06-16-2017 Episodic Other gastrointestinal disorders (17 sources) Acute constipation; Translations: [Constipation, unspecified] 03-24-2024 Episodic Other nervous system disorders (1 source) Other chronic pain; Translations: [Chronic neck pain] Onset: 5 Chronic Other nervous system disorders (7 sources) Abnormal gait; Translations: [Unspecified abnormalities of gait and mobility] 01-20-2024 Episodic Other non-traumatic joint disorders (3 sources) Pain in right knee; Translations: [Other acute pain] Onset: 5 09-08-2024 Episodic Other non-traumatic joint disorders (5 sources) Pain in right shoulder; Translations: [Pain in joint, shoulder region] Onset: 5 09-08-2024 Episodic Other non-traumatic joint disorders (1 source) Pain in left knee; Translations: [Acute pain of both knees] Onset: 5 Episodic Other non-traumatic joint disorders (1 source) Pain in unspecified shoulder; Translations: [Pain in unspecified shoulder] Onset: 5 Episodic Other nutritional; endocrine; and metabolic disorders (4 sources) Hypercalcemia; Translations: [Hypercalcemia] Chronic Other nutritional; endocrine; and metabolic disorders (2 sources) Unintentional weight loss; Translations: [Abnormal weight loss] 07-02-2024 Episodic Other skin disorders (1 source) Skin lesion; Translations: [Disorder of the skin and subcutaneous tissue, unspecified] 09-23-2023 Episodic Other skin disorders (1 source) Change in skin lesion; Translations: [Disorder of the skin and subcutaneous tissue, unspecified] 09-23-2023 Episodic Other upper respiratory disease (20 sources) Allergic rhinitis; Translations: [Allergic rhinitis, unspecified] Onset: 5 Resolved: 7 01-21-2017 Chronic Other upper respiratory infections (1 source) Chronic sinusitis, unspecified; Translations: [Unspecified sinusitis (chronic)] 02-04-2024 Chronic Residual codes; unclassified (2 sources) Edema of lower leg ; Translations: [Localized edema] 07-02-2024 Episodic Spondylosis; intervertebral disc disorders; other back problems (20 sources) Disorder of lumbar disc; Translations: [Other intervertebral disc degeneration, lumbar region] Onset: 5 Resolved: 4 05-23-2022 Chronic Spondylosis; intervertebral disc disorders; other back problems (20 sources) Lumbar radiculopathy; Translations: [Radiculopathy, lumbar region] Onset: 1 07-26-2020 Episodic Unclassified (2 sources) or return to ER if worsening Unclassified (3 sources) Acute pain of right shoulder 09-08-2024 Unclassified (1 source) Cough, unspecified type; Translations: [Cough, unspecified type] Onset: Urinary tract infections (1 source) Urinary tract infectious disease; Translations: [Urinary tract infection, site not specified] 10-24-2022 Episodic Past or Other Problems Problem Classification Problem Date Documented Da te Episodic/Chronic Abdominal pain (3 sources) Lower abdominal pain; Translations: [Lower abdominal pain, unspecified] Onset: 4 Episodic Cancer of kidney and renal pelvis (20 sources) History of malignant neoplasm of kidney; Translations: [Personal history of other malignant neoplasm of kidney] Onset: 7 01-21-2017 Episodic E Codes: Fall (4 sources) Fall on same level from slipping, tripping or stumbling 09-08-2024 Gastrointestinal hemorrhage (20 sources) Gastrointestinal hemorrhage; Translations: [Gastrointestinal hemorrhage, unspecified] Onset: 4 03-02-2024 Episodic Intestinal obstruction without hernia (19 sources) Stricture of colon; Translations: [Other intestinal obstruction unspecified as to partial versus complete obstruction] Onset: 5 04-09-2024 Episodic Menopausal disorders (20 sources) Atrophic vaginitis; Translations: [Postmenopausal atrophic vaginitis] Onset: 5 Resolved: 0 05-28-2019 Chronic Nausea and vomiting (1 source) Nausea with vomiting, unspecified; Translations: [Nausea with vomiting, unspecified] Onset: 5 Episodic Other and unspecified benign neoplasm (1 source) Polyp of colon; Translations: [Polyp of colon, unspecified part of colon, unspecified type] Onset: 5 Episodic Other bone disease and musculoskeletal deformities (20 sources) Osteopenia; Translations: [Other specified disorders of bone density and structure, unspecified site] Onset: 2 Resolved: 7 12-03-2016 Episodic Other connective tissue disease (20 sources) Plantar fasciitis; Translations: [Plantar fascial fibromatosis] Onset: 0 Resolved: 2 06-22-2011 Episodic Other gastrointestinal disorders (1 source) Constipation, unspecified; Translations: [Constipation, unspecified] Onset: 5 Episodic Other gastrointestinal disorders (1 source) Diarrhea, unspecified; Translations: [Diarrhea, unspecified] Onset: 5 Episodic Other nervous system disorders (1 source) Unspecified abnormalities of gait and mobility; Translations: [Unspecified abnormalities of gait and mobility] Onset: 5 Episodic Other non-traumatic joint disorders (20 sources) Pain in right hip joint; Translations: [Pain in right hip] Onset: 1 07-26-2020 Episodic Other non-traumatic joint disorders (20 sources) Arthralgia of the pelvic region and thigh; Translations: [Pain in unspecified hip] Onset: 6 Resolved: 3 09-15-2012 Episodic Other non-traumatic joint disorders (20 sources) Hip pain; Translations: [Pain in right hip] Onset: 1 07-26-2020 Episodic Other non-traumatic joint disorders (1 source) Pain in right hip; Translations: [Pain in right hip] Onset: 1 Episodic Other nutritional; endocrine; and metabolic disorders (1 source) Abnormal weight loss; Translations: [Weight loss, non-intentional] Onset: 5 Episodic Other upper respiratory infections (3 sources) Acute maxillary sinusitis; Translations: [Acute maxillary sinusitis, unspecified] Onset: 4 08-03-2024 Episodic Prolapse of female genital organs (20 sources) Uterovaginal prolapse; Translations: [Uterovaginal prolapse, unspecified] Onset: 4 Resolved: 0 05-28-2019 Chronic Residual codes; unclassified (20 sources) Persistent insomnia; Translations: [Insomnia, unspecified] Onset: 1 Resolved: 0 05-28-2019 Episodic Residual codes; unclassified (20 sources) History of nephrectomy; Translations: [Acquired absence of kidney] Onset: 2 Resolved: 3 09-15-2012 Episodic Residual codes; unclassified (1 source) Localized edema; Translations: [Lower leg edema] Onset: 5 Episodic Unclassified (2 sources) Acute pain of both knees 09-08-2024 Results Test Name Value Interpretation Reference Range Facility Cerv Spine 2 or 3 Viewson Cerv Spine 2 or 3 Views [facility] Services [address] [place] [address] [id number] Cerv Spine 2 or 3 Views MR#: [id number] Acct: [id number] Name: LEONEL ANDRE (PEG) Blayne Rep #: [id number] : 1945 F 79 From: Aditya Silva MD PCP: Dr. Femi Baeza MD Status: DEP AMB Study: Cerv Spine 2 or 3 Views Date of Exam: 11/09/24 Exam# [id number] Ordering Dr: Con Luciano DO PROCEDURE: CERV SPINE 2 OR 3 VIEWS 11/09/2024 REASON FOR EXAM: PAIN INTO RIGHT SHOULDER TECHNIQUE: Procedure Code: RADSPCL Modality: DX Procedure: CERV SPINE 2 OR 3 VIEWS COMPARISON: None. FINDINGS: There is maintenance of the normal cervical lordosis. There is torticollis to the right consistent with spasm. There are no compression fractures or subluxations. There is degenerative disc disease C3-4 through C6-7 with narrowing of the intervertebral disc spaces and marginal osteophytes. There is multilevel facet arthropathy. There is degenerative grade 1 retrolisthesis of C4 on C5. There is calcific vascular disease of both carotid bifurcations. RAD/Cerv Spine 2 or 3 Views IMPRESSION: 1. Degenerative disc disease with cervical spasm. 2. Other findings as noted. Reading Location: [place] [address] CC: Dr. Con Luciano DO; Dr. Femi Baeza MD Mathematics Faculty Member: Signed Normal [facility] Orthopedic Visit Reporton Orthopedic Visit Report [facility] [address] [place] [address] OFFICE VISIT Date of Service: 11/09/24 MR#: [id number] Acct: [id number] Name: LEONEL ANDRE (PEG) Blayne Rep #: [id number] : 1945 Provider: Dr. Con heredia DO Age/Sex: 79/F Location: [facility] Status: Signed Intake Vital Signs 06/12/24 11:59 11/09/24 14:29 Height 5 ft 4 in 5 ft 4 in Weight: 144 lb BMI 24.7 Intake Visit Reasons: RIGHT SHOULDER Chief Complaint: Right shoulder pain Accompanied by: Self Is patient in pain?: Yes Pain scale (1-10): 9 Allergies lisinopril Allergy (Verified 11/09/24 14:31) Swelling esomeprazole (From Nexium) Adverse Reaction (Verified 11/09/24 14:31) Nausea/Vom/Diarrhea Medications ???Medication ???Instructions ???Recorded ???Confirmed ???Type cholecalciferol (vitamin D3) 25 2,000 unit PO DAILY 12/26/1511/09 History mcg (1,000 unit) tablet (Vitamin D3) oxybutynin chloride 5 mg tablet 5 mg PO BID 12/26/15 11/09/24 Hist ory diltiazem HCl 180 mg capsule,24 360 mg PO DAILY 09/08/20 11/09/24 History hr,extended release lorazepam 0.5 mg tablet 0.5 mg PO DAILY 09/08/20 11/09/24 History acetaminophen 500 mg tablet 500 mg PO Q6H PRN pain 08/23/22 History (Tylenol Extra Strength) cetirizine 5 mg tablet 5 mg PO DAILY PRN allergy symptoms 08/23/22 11/09/24 History fluticasone propionate 50 1 spray intranasal DAILY 08/23/22 11/09/24 History mcg/actuation nasal spray,suspension omeprazole 40 mg capsule,delayed 40 mg PO DAILY 08/23/22 11/09/24 H istory release sodium chloride 0.65 % nasal spray 1 spray intranasal DAILY 3 11/09/24 History aerosol denosumab 60 mg/mL subcutaneous 60 mg subcut [id number] #1 mL 11/09/24 Rx syringe (Prolia) Lactobacillus rhamnosus GG 20 1 cell PO DAILY 12/16/23 11/09/24 History billion cell capsule (Probiotic Digestive Care) ondansetron 8 mg disintegrating 8 mg PO Q8H PRN nausea and 4 11/09/24 Rx tablet vomiting #15 tabs losartan 50 mg tablet 50 mg PO BID 06/08/24 11/09/24 His tory hydrochlorothiazide 25 mg tablet 25 mg PO QAM 07/15/24 11/09/24 His tory docusate sodium 100 mg capsule 100 mg PO TID #90 caps 08/11/24 Rx lactulose 10 gram/15 mL oral 10 g (15 mL) PO TID #1,200 mL 10/2611/09/24 Rx solution linaclotide 145 mcg capsule 145 mcg PO QAM #30 caps 11/09/24 0 11/09/24 Rx (Linzess) Have you fallen in the past year?: Yes PFSH Medical History Wears glasses Cancer Anxiety Ambulates with cane History of renal disease Bladder disease History of hiatal hernia Gastric reflux Former smoker Gait disturbance Diverticular disease Primary hyperparathyroidism Sciatica Age related osteoporosis Bowel obstruction Scoliosis Lumbar radiculopathy Hx of renal cell carcinoma Osteoporosis GERD (gastroesophageal reflux disease) Hypoglycemia HTN (hypertension) Bladder prolapse Surgical History Hx of colonoscopy History of tubal ligation History of cholecystectomy History of knee replacement H/O partial nephrectomy Family History Father Alcoholism Brother Alcoholism Mother Arthritis Hypertension Osteoporosis Social History Smoking Status: Former smoker alcohol intake: never what type of physical activity do you participate in: bicycling HPI RIGHT SHOULDER Details: This documentation accurately reflects the service provided and the decisions made by me, Dr. Con Luciano, DO 11/09/24927. Part of today???s visit was documented by Rodolfo Nieves MA, acting as scribe. LEONEL ANDRE (BONNIE) is a 79 year old RHD F here today for right shoulder. Patient states that she started having pain in her right shoulder and scapular area and into her neck after an event on 08/29/2024. Her sons brought her a bag of [employer] and placed it on the ground. she bent over to pick the bag up the bag then fell onto her knees grabbing a chair with her right hand and she had some pain initially but was able to have full function of her shoulder it was not until the next day that her pain progressively got worse and her whole arm ached. Described as sharp and dull and achy .with radiation into her shoulder blade and neck .she went to the chiropractor for 3 visits, and it made her arm worse. when she is trying to lift her right arm up, or moving it exacerbates. Patient tried 6 sessions of physical therapy at [facility]. And states that the massaging did help, but the exercising made her p (more content not included)... Normal [facility] Shoulder min 2 Viewson 11-09 Shoulder min 2 Views [facility] Imaging Services [address] [place], [place] [address] Shoulder min 2 Views MR#: [id number] Acct: [id number] Name: LEONEL ANDRE (BONNIE) Rep #: [id number] : 1945 F 79 From: Jose hare MD PCP: Dr. Femi Baeza MD Status: DEP AMB Study: Shoulder min 2 Views Date of Exam: 11/09/24 Exam# [id number] Ordering Dr: Con Luciano DO PROCEDURE: SHOULDER MIN 2 VIEWS 11/09/2024 REASON FOR EXAM: RIGHT SHOULDER PAIN, NKI TECHNIQUE: Procedure Code: RADSH Modality: DX Procedure: SHOULDER MIN 2 VIEWS Laterality: Right shoulder. COMPARISON: None FINDINGS: Bones: No fracture seen. Joints: Marked degree of joint space narrowing at the glenohumeral joint. Narrowing of the distance between the humeral head in the acromion suggestive of rotator cuff pathology. Soft tissues: No soft tissue swelling. Other: RAD/Shoulder min 2 Views IMPRESSION: Osteoarthritis of the glenohumeral joint as well as decreased distance between the humeral head in the acromion in keeping with the rotator cuff pathology. Reading Location: [place] CC: Dr. Con Luciano DO; Dr. eFmi Baeza MD Mathematics Faculty Member: Signed Normal [facility] CNOVon 10-28-2024 CNOV Office Visit (INTMWS ) LEONEL ANDRE ([id number]) 1945 F Date Time Provider Department 10/28/24 4:00 PM FEMI BAEZA INTMWS During your visit today, we recorded the following information about you: Pulse Blood pressure Weight 64/minute 140/68 56.3 kg Femi Baeza MD 10/28/2024 6:18 PM Signed Subjective Leonel Ander is a 79 year old female. Recording using wishkicker software for draft documentation of the visit was discussed with the patient/authorized energy conservation representative; all questions welcomed and answered. Patient/authorized energy conservation representative agreed to proceed Patient presents with: F/U 3 Month Right Shoulder Pain:- Peg Andre experienced onset after a fall on the last Saturday of August. - Pain localized to the right shoulder and upper arm.- Unable to raise arm to use a blow dryer or curling iron; requires assistance from left arm.- Peg tried careers adviser, which worsened the pain.- Completed 6 sessions of physical therapy with massage and stretching; no improvement, possibly worsened.- Physical therapist suggested possible rotator cuff injury and recommended seeing an orthopedic doctor.- No previous injuries to the right shoulder. Knee Pain:- Bilateral knee pain following the fall.- Pain has improved with exercise bike use; knees are "a little looser" and less sore, but waste machine tender. Constipation:- Chronic issue, currently having bowel movements approximately once a week.- Peg is taking Linzess 147 mcg daily x6 months with minimal improvement.- Lactulose increased to BID x2.5 weeks with no significant change.- Considering increasing Linzess to the highest dose. UTI Symptoms:- Recent cramping and burning during urination; suspected UTI. Hypertension:- Peg is taking losartan BID.- Recent blood pressure readings: 140/64 mmHg.- No current edema since taking hydrochlorothiazide. Review of Systems Constitutional: Negative for chills and fever. Respiratory: Negative for cough and shortness of breath. Cardiovascular: Negative for chest pain, palpitations and leg swelling. Gastrointestinal: Positive for abdominal distention and constipation. Negative for abdominal pain, diarrhea, nausea and vomiting. Genitourinary: Negative for dysuria and hematuria. Neurological: Negative for dizziness, light-headedness and headaches. Objective BP 146/78 (BP Site: Left Arm, BP Position: Sitting, BP Cuff Size: Large Adult) Pulse (!) 48 Wt 56.3 kg (124 lb 1.9 oz) BMI 20.03 kg/m? Physical Exam Constitutional: General: She is not in acute distress. Appearance: She is not ill-appearing or diaphoretic. Cardiovascular: Rate and Rhythm: Normal rate and regular rhythm. Heart sounds: S1 normal and S2 normal. No murmur heard. No gallop. Pulmonary: Breath sounds: Normal breath sounds. Abdominal: General: There is no distension. Palpations: Abdomen is soft. Tenderness: There is no abdominal tenderness. Musculoskeletal: Cervical back: No spasms or tenderness. Right knee: No swelling or effusion. Normal range of motion. No tenderness. Left knee: No swelling or effusion. Normal range of motion. No tenderness. Right lower leg: No edema. Left lower leg: No edema. Neurological: Mental Status: She is alert. Gait: Gait normal. BP 140/68 (BP Site: Left Arm, BP Position: Sitting) Pulse 64 Latest Ref [facility] 10/27/2024 Protein, Total 6.3 - 8.0 g/dL 6.9 Albumin 3.9 - 4.9 g/dL 4.4 Calcium 8.5 - 10.2 mg/dL 10.8 (H) Bilirubin, Total 0.2 - 1.3 mg/dL 0.2 Alkaline Phosphatase 34 - 123 U/L 49 AST 13 - 35 U/L 15 ALT 7 - 38 U/L 15 Glucose 74 - 99 mg/dL 95 BUN 7 - 21 mg/dL 16 Creatinine 0.58 - 0.96 mg/dL 0.58 Sodium 136 - 144 mmol/L 139 Potassium 3.7 - 5.1 mmol/L 4.2 Chloride 98 - 107 mmol/L 101 CO2 22 - 30 mmol/L 26 Anion Gap 8 - 15 mmol/L 12 eGFR >=60 mL/min/1.73m? 93 Cholesterol, Total <200 mg/dL 163 Triglyceride <150 mg/dL 43 HDL Cholesterol >39 mg/dL 72 LDL Cholesterol, Calculated <100 mg/dL 82 Non HDL Cholesterol <130 mg/dL 91 VLDL Cholesterol <30 mg/dL 7 TC:HDL Ratio <5.10 2.26 LDL:HDL Ratio <2.54 1.14 Fasting Time hrs 12 Vitamin D 25 Hydroxy 31.0 - 80.0 ng/mL 45.3 Legend: (H) High Latest Ref Rng 10/28/2024 GLUCOSE UA (POCT) Negative mg/dL Negative BILIRUBIN UA (POCT) Negative Negative KETONE UA (POCT) Negative mg/dL Negative SPECIFIC GRAVITY UA (POCT) 1.005 - 1.030 1.010 HEMOGLOBIN/BLOOD UA (POCT) Negative Trace-intact ! PH UA (POCT) 4.5 - 8.0 6.5 PROTEIN UA (POCT) Negative mg/dL Negative UROBILINOGEN UA (POCT) Normal E.U./dL 0.2 NITRITE UA (POCT) Negative Negative LEUKOCYTES UA (POCT) Negative Negative COLOR UA (POCT) Light yellow CLARITY UA (POCT) Clear Legend: ! Abnormal ASSESSMENT/PLAN: 1. Dysuria - ICD9: 788.1, ICD10: R30.0 (primary diagnosis) acute - Patient education for prevention given - UA DIP, URI (more content not included)... Normal [facility] UA DIP, URINE (POC)on 2024 BILIRUBIN UA (POCT) Negative Negative [facility] CLARITY UA (POCT) Clear [facility] COLOR UA (POCT) Light yellow [facility] GLUCOSE UA (POCT) Negative Negative mg/dL [facility] Hemoglobin Ql (U) Trace-intact Abnormal Negative [facility] Interpretation and review of laboratory results Abnormal [facility] KETONE UA (POCT) Negative Negative mg/dL [facility] LEUKOCYTES UA (POCT) Negative Negative [facility] NITRITE UA (POCT) Negative Negative [facility] PH UA (POCT) 6.5 4.5 - 8.0 [facility] Protein Ql (U) Negative Negative mg/dL [facility] SPECIFIC GRAVITY UA (POCT) 1.010 1.005 - 1.030 [facility] UROBILINOGEN UA (POCT) 0.2 Kindra l E.U./dL [facility] Location:[address], [place], [place], [id number] [place] [address] POINT OF CARE [facility] 25([place])D3 [facility] 2024 25-hydroxyvitamin D3 [Mass/Vol] 45.3 ng/mL Normal 31.0-80.0 [facility] Comment on above: Order Comment: Speci men Type: BLOOD SPECIMENOrdering Facility: [facility] Address: [address] [place] [address] Result Comment: Clas sification of 25 [place] Vitamin D status: Deficiency/Insufficiency: < or = 30 ng/ml. Sufficiency/Optimal Levels: 31-80 ng/mL Toxicity: > 100 ng/mL. Test performed by chemiluminescent immunoassay. Performed By: #### 6 30-4 #### [facility] CLIA [id number] [address] [place] [address] [place] [facility] metabolic [address] [place], [place] [address]on 10-27-2024 Albumin [Mass/Vol] 4.4 g/dL Normal 3.9-4.9 [facility] Comment on above: Order Comment: Speci men Type: BLOOD SPECIMENOrdering Facility: [facility] Address: [address] [place] [address] Performed By: #### 6 30-4 #### [facility] CLIA [id number] [address] [place] [address] [place] ALP [Catalytic activity/Vol] 49 U/L Normal 34-123 [facility] Comment on above: Order Comment: Speci men Type: BLOOD SPECIMENOrdering Facility: [facility] Address: [address] [place] [address] Performed By: #### 6 30-4 #### [facility] CLIA [id number] [address] [place] [address] [place] ALT [Catalytic activity/Vol] 15 U/L Normal 7-38 [facility] Comment on above: Order Comment: Speci men Type: BLOOD SPECIMENOrdering Facility: [facility] Address: [address] [place] [address] Performed By: #### 6 30-4 #### [facility] CLIA [id number] [address] [place] [address] [place] Anion gap [Moles/Vol] 12 mmol/L Normal 8-15 [facility] Comment on above: Order Comment: Speci men Type: BLOOD SPECIMENOrdering Facility: [facility] Address: [address] [place] [address] Performed By: #### 6 30-4 #### [facility] CLIA [id number] [address] [place] [address] [place] AST [Catalytic activity/Vol] 15 U/L Normal 13-35 [facility] Comment on above: Order Comment: Speci men Type: BLOOD SPECIMENOrdering Facility: [facility] Address: [address] [place] [address] Performed By: #### 6 30-4 #### [facility] CLIA [id number] [address] [place] [address] [place] Bilirubin [Mass/Vol] 0.2 mg/dL Normal 0.2-1.3 [facility] Comment on above: Order Comment: Speci men Type: BLOOD SPECIMENOrdering Facility: [facility] Address: [address] [place] [address] Performed By: #### 6 30-4 #### [facility] CLIA [id number] [address] [place] [address] [place] Calcium [Mass/Vol] 10.8 mg/dL High 8.5-10.2 [facility] Comment on above: Order Comment: Speci men Type: BLOOD SPECIMENOrdering Facility: [facility] Address: [address] [place] [address] Performed By: #### 6 30-4 #### [facility] CLIA [id number] [address] [place] [address] [place] Chloride [Moles/Vol] 101 mmol/L Normal 98-107 [facility] Comment on above: Order Comment: Speci men Type: BLOOD SPECIMENOrdering Facility: [facility] Address: [address] [place] [address] Performed By: #### 6 30-4 #### [facility] CLIA [id number] [address] [place] [address] [place] CO2 [Moles/Vol] 26 mmol/L Normal 22-30 [facility] Comment on above: Order Comment: Speci men Type: BLOOD SPECIMENOrdering Facility: [facility] Address: [address] [place] [address] Performed By: #### 6 30-4 #### [facility] CLIA [id number] [address] [place] [address] [place] Creatinine [Mass/Vol] 0.58 mg/dL Normal 0.58-0.96 [facility] Comment on above: Order Comment: Speci men Type: BLOOD SPECIMENOrdering Facility: [facility] Address: [address] [place] [address] Performed By: #### 6 30-4 #### [facility] CLIA [id number] [address] [place] [address] [place] eGFRcr SerPlBld CKD-EPI 2020 93 mL/min/1.73m??? Normal >=60 [facility] Comment on above: Order Comment: Speci men Type: BLOOD SPECIMENOrdering Facility: [facility] Address: [address] [place] [address] Result Comment: Kailyn mated Glomerular Filtration Rate (eGFR) is calculated using the 2020 CKD-EPI creatinine equation. This equation utilizes serum creatinine, sex, and age as parameters. The creatinine assay has traceable calibration to isotope dilution-mass spectrometry. Refer to KDIGO guidelines for clinical interpretation. In patients with unstable renal function, e.g. those with acute kidney injury, the eGFR may not accurately reflect actual GFR. Performed By: #### 6 30-4 #### [facility] CLIA [id number] [address] [place] [address] [place] Glucose [Mass/Vol] 95 mg/dL Normal 74-99 [facility] Comment on above: Order Comment: Speci men Type: BLOOD SPECIMENOrdering Facility: [facility] Address: [address] [place] [address] Result Comment: The [place] Diabetes [employer] (ADA) provides guidance for cutoff values for fasting glucose and random glucose. The ADA defines fasting as no caloric intake for at least 8 hours. Fasting plasma glucose results between 100 to 125 mg/dL indicate increased risk for diabetes (prediabetes). Fasting plasma glucose results greater than or equal to 126 mg/dL meet the criteria for diagnosis of diabetes. In the absence of unequivocal hyperglycemia, results should be confirmed by repeat testing. In a patient with classic symptoms of hyperglycemia or hyperglycemic crisis, random plasma glucose results greater than or equal to 200 mg/dL meet the criteria for diagnosis of diabetes. Reference: Standards of Medical Care in Diabetes 2016, [place] [employer] Association. Diabetes Care. 2016.39(Suppl 1). Performed By: #### 6 30-4 #### [facility] CLIA [id number] [address] [place] [address] [place] Potassium [Moles/Vol] 4.2 mmol/L Normal 3.7-5.1 [facility] Comment on above: Order Comment: Rosettai men Type: BLOOD SPECIMENOrdering Facility: [facility] Address: [address] [place] [address] Performed By: #### 6 30-4 #### [facility] CLIA [id number] [address] [place] [address] [place] Protein [Mass/Vol] 6.9 g/dL Normal 6.3-8.0 [facility] Comment on above: Order Comment: Speci men Type: BLOOD SPECIMENOrdering Facility: [facility] Address: [address] [place] [address] Performed By: #### 6 30-4 #### [facility] CLIA [id number] [address] [place] [address] [place] Sodium [Moles/Vol] 139 mmol/L Normal 136-144 [facility] Comment on above: Order Comment: Speci men Type: BLOOD SPECIMENOrdering Facility: [facility] Address: [address] [place] [address] Performed By: #### 6 30-4 #### [facility] CLIA [id number] [address] [place] [address] [place] Urea nitrogen [Mass/Vol] 16 mg/dL Normal 7-21 [facility] Comment on above: Order Comment: Speci men Type: BLOOD SPECIMENOrdering Facility: [facility] Address: [address] [place] [address] Performed By: #### 6 30-4 #### [facility] CLIA [id number] [address] [place] [address] [place] Lipid 1996 panelon 5 Cholesterol [Mass/Vol] 163 mg/dL Normal <200 [facility] Comment on above: Order Comment: Speci men Type: BLOOD SPECIMENOrdering Facility: [facility] Address: [address] [place] [address] Result Comment: <200 mg/dL, Desirable 200-239 mg/dL, Borderline high >239 mg/dL, High Performed By: #### 6 30-4 #### [facility] CLIA [id number] [address] [place] [address] [place] Cholesterol in HDL [Mass/Vol] 72 mg/dL Normal >39 [facility] Comment on above: Order Comment: Speci men Type: BLOOD SPECIMENOrdering Facility: [facility] Address: [address] [place] [address] Result Comment: 40-5 9 mg/dL, Acceptable >59 mg/dL, High: Negative risk factor for coronary heart disease <40 mg/dL, Low: Positive risk factor for coronary heart disease Performed By: #### 6 30-4 #### [facility] CLIA [id number] [address] [place] [address] [place] Cholesterol in LDL [Mass/Vol] 82 mg/dL Normal <100 [facility] Comment on above: Order Comment: Vin canas Type: BLOOD SPECIMENOrdering Facility: [facility] Address: [address] [place] [address] Result Comment: <100 mg/dL, Optimal 100-129 mg/dL, Near optimal/above optimal 130-159 mg/dL, Borderline high 160-189 mg/dL, High >189 mg/dL, Very high Secondary prevention optimal LDL Cholesterol levels are recommended to be <70 mg/dL LDL cholesterol is calculated using the Stuart-NIH equation. Performed By: #### 6 30-4 #### [facility] CLIA [id number] [address] [place] [address] [place] Cholesterol in LDL/Cholesterol in HDL [Mass ratio] 1.14 {ratio} Normal <2.54 [facility] Comment on above: Order Comment: Vin canas Type: BLOOD SPECIMENOrdering Facility: [facility] Address: [address] [place] [address] Result Comment: Carrie baumann: 1. National Cholesterol Education Program ATP III Guideline At-A-Glance Quick Desk Reference: National Heart, Lung, and Blood [place]. National Institutes of Health. 2001: NIH Publication No. 01-3305. 2. An International Atherosclerosis Society position paper: global recommendations for the management of dyslipidemia: executive summary, Atherosclerosis. 2014: 232(2):410-413. Performed By: #### 6 30-4 #### [facility] CLIA [id number] [address] [place] [address] [place] Cholesterol in VLDL [Mass/Vol] 7 mg/dL Normal <30 [facility] Comment on above: Order Comment: Vin canas Type: BLOOD SPECIMENOrdering Facility: [facility] Address: [address] [place] [address] Performed By: #### 6 30-4 #### [facility] CLIA [id number] [address] [place] [address] [place] Cholesterol non HDL [Mass/Vol] 91 mg/dL Normal <130 [facility] Comment on above: Order Comment: Speci men Type: BLOOD SPECIMENOrdering Facility: [facility] Address: [address] [place] [address] Result Comment: <130 mg/dL, Optimal 130-159 mg/dL, Near optimal/above optimal 160-189 mg/dL, Borderline high 190-219 mg/dL, High >219 mg/dL, Very high Secondary prevention optimal non HDL Cholesterol levels are recommended to be <100 mg/dL Performed By: #### 6 30-4 #### [facility] CLIA [id number] [address] [place] [address] [place] Cholesterol.total/Chol esterol in HDL [Mass ratio] 2.26 {ratio} Normal <5.10 [facility] Comment on above: Order Comment: Speci men Type: BLOOD SPECIMENOrdering Facility: [facility] Address: [address] [place] [address] Performed By: #### 6 30-4 #### [facility] CLIA [id number] [address] [place] [address] [place] FASTING TIME 12 hrs Normal [facility] Comment on above: Order Comment: Speci men Type: BLOOD SPECIMENOrdering Facility: [facility] Address: [address] [place] [address] Performed By: #### 6 30-4 #### [facility] CLIA [id number] [address] [place] [address] [place] Triglyceride [Mass/Vol] 43 mg/dL Normal <150 [facility] Comment on above: Order Comment: Speci men Type: BLOOD SPECIMENOrdering Facility: [facility] Address: [address] [place] [address] Result Comment: <150 mg/dL, Normal 150-199 mg/dL, Borderline high 200-499 mg/dL, High >499 mg/dL, Very high Performed By: #### 6 30-4 #### [facility] CLIA [id number] [address] [place] [address] [place] CNPNon [facility] ([id number]) 1945 F Date Time Provider Department 10/26/24 FEMI BAEZA INTMWS During your visit today, we recorded the following information about you: Madelaine Griffiths LPN 10/26/2024 12:50 PM Signed Peg is asking if she needs to have labs prior to her appt 10/28. Femi Medina LPN, MD 10/26/2024 3:23 PM Signed Fasting labs ordered. Madelaine Griffiths LPN 10/26/2024 3:27 PM Signed Left msg on identified vm, Doctor has ordered fasting labs. Madelaine Griffiths LPN Allergies As of Date: 10/26/2024 Noted Allergy Reaction DUST 11/08/2004 LEXAPRO (ESCITALOPRAM OXALATE) 12/26/2015 14 - Other: See Comments Comments: Dizziness, shakey LISINOPRIL 05/29/2010 7 - Swelling Comments: Swelling in her throat. MOLD 11/08/2004 NEXIUM (ESOMEPRAZOLE MAGNESIUM) 11/08/2004 11 - Vomiting NEXIUM (ESOMEPRAZOLE MAGNESIUM) 10/26/2016 6 - Diarrhea Comments: but was able to take pantoprazole RAGWEED 11/08/2004 Date Reviewed: 09/08/2024 Reviewed by: Xuan Brandon, POTATO PEELER.SNUFF MAKER - Fully Assessed Reason for Visit: Orders [681] Primary Visit Diagnosis:Essential hypertension [I10] Other Visit Diagnosis:Vitamin D deficiency [E55.9] Order(s):COMPREHENSIVE METABOLIC PANEL [SQCMP] Order #: [id number] FUTURE VITAMIN D 25 HYDROXY [SQVITD] Order #: [id number] FUTURE LIPID PANEL, FASTING [SQLIPB] Order #: [id number] FUTURE Prescriptions as of 10/26/2024 - LORazepam (ATIVAN) 0.5 mg Take 1 tablet by mouth once daily as needed (anxiety) for up to 90 days. 3 months supply. Patient should start on September 17, 2024. - lactulose 10 gram/15 mL solution - linaclotide (LINZESS) 145 mcg capsule Take 1 capsule by mouth once daily. Take capsule on an empty stomach at least 30 minutes before a meal at the same time each day. Capsule should be swallowed whole. DO NOT chew or crush - hydroCHLOROthiazide 25 mg tablet Take 1 tablet by mouth once daily. - oxybutynin (DITROPAN) 5 mg tablet Take 1 tablet by mouth two times a day. - omeprazole (PRILOSEC) 40 mg capsule Take 1 capsule by mouth once daily. - dilTIAZem CR (TAZTIA XT) 180 mg 24 hr capsule Take 2 capsules by mouth once daily. - losartan (COZAAR) 50 mg tablet Take 1 tablet by mouth two times a day. - docusate sodium (COLACE) 100 mg capsule Take 1 capsule by mouth two times a day. - Cholecalciferol, Vitamin D3, 50 mcg (2,000 unit) cap Take 1 capsule by mouth once daily. Prescribed by endocrinology (Dr. César Johnson) - denosumab (PROLIA) 60 mg/mL Once every 6 months. Prescribed by endocrinology (Dr. César Johnson) - Dextrin (EASY FIBER) 3 gram/3.5 gram powd Take 3 g by mouth once daily. Mixed with water. - Sennosides (SENOKOT EXTRA STRENGTH) 17.2 mg tab Take 1 tablet by mouth daily with lunch AND 2 tablets daily at bedtime. - lactobacillus comb no.10 (PROBIOTIC) 20 billion cell cap Take 1 capsule by mouth daily at bedtime. - fexofenadine (MUCINEX ALLERGY) 180 mg tablet Take 180 mg by mouth once daily. - fluticasone (FLONASE) 50 mcg/actuation nasal spray Use 2 Sprays in each nostril once daily. Rinse mouth after use. - ACETAMINOPHEN (TYLENOL ARTHRITIS ORAL) Take by mouth. Problem List As Of Date 10/26/2024 Noted Resolved Essential hypertension [I10] 11/08/2004 Allergic rhinitis, cause unspecified [J30.9] 11/08/2004 01/21/2017 Degeneration of intervertebral disc, site unspe*11/08/2004 12/07/2013 Postmenopausal atrophic vaginitis [N95.2] 11/08/2004 05/28/2019 ESOPHAGEAL REFLUX [K21.9] 11/08/2004 Pain in joint, pelvic region and thigh [M25.559]06/05/2005 09/15/2012 Vitamin D deficiency [E55.9] 05/22/2007 Constipation [K59.00] 01/17/2009 Plantar fasciitis [M72.2] 06/20/2009 06/22/2011 Osteoarthritis of knee [M17.9] 12/29/2009 02/11/2012 Urinary frequency [R35.0] 06/29/2010 06/22/2011 Persistent disorder of initiating or maintainin*06/29/2010 05/28/2019 Scoliosis [M41.9] 08/29/2011 Osteopenia [M85.80] 10/03/2011 12/03/2016 Carcinoma of kidney, renal cell 10/27/2011 12/07/2013 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 [Z90*10/27/2011 09/15/2012 Urge incontinence [N39.41] 11/28/2011 Osteoarthrosis, unspecified whether generalized*02/13/2012 02/13/2012 Knee joint replacement by other means [Z96.659] 03/19/2012 05/28/2019 History of renal cell carcinoma [Z85.528] 01/21/2017 Uterovaginal prolapse [N81.4] 10/01/2013 05/28/2019 Osteoporosis [M81.0] 12/23/2014 Anxiety [F41.9] 01/04/2016 Pain in right hip [M25.551] 07/26/2020 Radiculopathy, lumbar region [M54.16] 07/26/2020 Mass of right kidney [N28.89] 06/19/2021 Encounter Status:Closed by MADELAINE GRIFFITHS on 10/26/24 Normal [facility] PT D/C Summary (1)on 025 PT D/C Summary (1) [facility] [place] [address] / REHABILITATION SERVICES DISCHARGE SUMMARY MR#: [id number] Acct: [id number] Name: LEONEL ANDRE (BONNIE) Rep #: [id number] : 1945 79 From: Armond Garza DPT, OCS, CSCS Referring Dr.: SADIE Govea Older Status: REG RCR Insurance: [employer] SELF PAY INSURANCE Discharge Summary D/C summary: It has been my pleasure to treat LEONEL ANDRE (BONNIE) referred by SADIE Cai, with the diagnosis of chronic neck pain for a total of 6 visit(s). Discharge Date: 10/12/24 Please see the following information for a summary of their discharge status. Subjective Subjective: Still hard to lift arm H to gt to hair.Most of pain is R shoulder adn at rest is 4/10 and 9/10 with movement tranisently. Neck is getting better, hurts in am upon awakening but moves around and it gets better. Pain neck: Pain Intensity (Out of 10): 0 R SH: Pain Intensity (Out of 10): 4 Overall Improvement % Improvement: 25 Objective Objective/Function: Did not tolerate shoulder strength today, too painful. Shoulder AROM 110 flexion but slow and painful, 25 er painful, IR L5 but painful. Neck aROM 55 B rotation adn 50 ext without pain. + R drop arm and + R ext rotation lag with 3- strength R er. Overall neck better movemeent and geetting more comfortable, shoulder R is a bugger and holding her back. Goals Goal 1:: Pain in neck adn shoulder 50% better at 2/10 at worst and manageable Goal Progress: shulder hurts Goal 2:: I appropriate HEP for RC and postural and neck strength adn stretching, postural ROM to limit future problems Goal Progress: neck better, not shoulder Goal 3:: symmetircal neck ROM and er strength shoulders to allow for ease of ADLs Goal Progress: neck met, not shldr Goal 4:: Neck oswestry to 5 or better Goal Progress: Not Progressing, shoulder Goal 5:: Work in garden adn do hair without increased pain Goal Progress: shoulder a problem Plan Plan: d/c, pt to seek help for shoulder and continue HEP D/C Information Discharge Comments: Pt to continue neck exercises at [facility] and wants to see shoulder specialist. d/c sentence: If there are questions or concerns regarding this patient's physical therapy, please feel free to call me at [phone]. Thank you for the referral of this patient. Sincerely, Armond Garza, DPT, OCS, CSCS Balance/Gait/Functional tests Balance/Special Test Scores Oswestry Neck Score: 27 Improvement % Improvement: 25 10/12/24 1556 CC: SADIE Govea Older; Dr. Femi Baeza MD EBG Signed Normal [facility] Gastro[facility]ology Visit Repor ton 09-23-2024 Gastroenterology Visit Report [facility] [address] [place] [address] OFFICE VISIT Date of Service: 09/23/24 MR#: [id number] Acct: [id number] Name: LEONEL ANDRE (BONNIE) Rep #: [id number] : 1945 Provider: ALBINA Leach Age/Sex: 79/F Location: [facility] Status: Signed with Addenda ADDENDUM by ALBINA Leach on 09/23/24 at 1508 HPI Details: LEONEL ANDRE (BONNIE), is a 79 F who presents to the office today for Physical Exam Const alert General Appearance: cooperative and comfortable HEENT normocephalic Head and Scalp: normal to inspection Eyes General Eye: normal appearance of both eyes Neck General: normal visual inspection Chest inspection of chest normal GI normal to inspection, nondistended, normoactive bowel sounds 09/23/24 1508 Date Zonia Lawrence cc: * Signed Intake Vital Signs 06/12/24 11:59 Height 5 ft 4 in Intake Visit Reasons: 2 M FU Chief Complaint: constipation Allergies lisinopril Allergy (Verified 06/12/24 11:58) Swelling esomeprazole (From Nexium) Adverse Reaction (Verified 06/12/24 11:58) Nausea/Vom/Diarrhea Medications ???Medication ???Instructions ???Recorded ???Confirmed ???Type cholecalciferol (vitamin D3) 25 2,000 unit PO DAILY 12/26/1506/08 History mcg (1,000 unit) tablet (Vitamin D3) oxybutynin chloride 5 mg tablet 5 mg PO BID 12/26/15 06/08/24 Hist ory diltiazem HCl 180 mg capsule,24 360 mg PO DAILY 09/08/20 06/12/24 History hr,extended release lorazepam 0.5 mg tablet 0.5 mg PO DAILY 09/08/20 06/08/24 History acetaminophen 500 mg tablet 500 mg PO Q6H PRN pain 08/23/22 History (Tylenol Extra Strength) cetirizine 5 mg tablet 5 mg PO DAILY PRN allergy symptoms 08/23/22 06/08/24 History fluticasone propionate 50 1 spray intranasal DAILY 08/23/22 06/08/24 History mcg/actuation nasal spray,suspension omeprazole 40 mg capsule,delayed 40 mg PO DAILY 08/23/22 09/23/24 H istory release sodium chloride 0.65 % nasal spray 1 spray intranasal DAILY 3 06/08/24 History aerosol denosumab 60 mg/mL subcutaneous 60 mg subcut [id number] #1 mL 06/08/24 Rx syringe (Prolia) Lactobacillus rhamnosus GG 20 1 cell PO DAILY 12/16/23 06/08/24 History billion cell capsule ([facility]) ondansetron 8 mg disintegrating 8 mg PO Q8H PRN nausea and 4 09/23/24 Rx tablet vomiting #15 tabs losartan 50 mg tablet 50 mg PO BID 06/08/24 06/12/24 His tory hydrochlorothiazide 25 mg tablet 25 mg PO QAM 07/15/24 07/15/24 His tory lactulose 10 gram/15 mL oral 10 g (15 mL) PO QDAY #473 mL 07/1509/23/24 Rx solution docusate sodium 100 mg capsule 100 mg PO TID #90 caps 08/11/24 R x linaclotide 145 mcg capsule 145 mcg PO QAM #30 caps 08/11/24 0 09/23/24 Rx (Linzess) Patient : No Have you fallen in the past year?: Yes Nurse's Note: OV 09/23/24 Pt here for a f/u and reports constipation, abdominal pain, nausea, gas and bloating. Pt continues Linzess, lactulose, docusate sodium, and omeprazole. [facility] Medical History Wears glasses Cancer Anxiety Ambulates with cane History of renal disease Bladder disease History of hiatal hernia Gastric reflux Former smoker Gait disturbance Diverticular disease Primary hyperparathyroidism Sciatica Age related osteoporosis Bowel obstruction Scoliosis Lumbar radiculopathy Hx of renal cell carcinoma Osteoporosis GERD (gastroesophageal reflux disease) Hypoglycemia HTN (hypertension) Bladder prolapse Surgical History Hx of colonoscopy History of tubal ligation History of cholecystectomy History of knee replacement H/O partial nephrectomy Family History Father Alcoholism Brother Alcoholism Mother Arthritis Hypertension Osteoporosis Social History Smoking Status: Former smoker alcohol intake: never what type of physical activity do you participate in: bicycling HPI HPI Chief Complaint: constipation Details: LEONEL ANDRE (BONNIE), is a 79 F who presents to the office today for f/u. [facility] established in Mar 2024 after numerous ED visits for suspected rectal prolapse. [facility] ED 02.21.24 w/ watery diarrhea followed by n/v for 24 hours. Work up mostly unremarkable. Suspected viral gastroenteritis. Discharged after IV fluids and potassium repletion. CT abd/pelvis .; 1. Nonspecific fluid-filled small bowel loops and colon without evidence of bowel obstruction could be due (more content not included)... Normal [facility] Inital Evaluation (1) - PTon 09-14-2024 Inital Evaluation (1) - PT [facility] Physical Therapy [facility] [address] [place] [address]. [address] [place] [address] / REHABILITATION SERVICES INITIAL EVALUATION MR#: [id number] Acct: [id number] Name: LEONEL ANDRE Rep #: [id number] : 1945 79 From: Armond Garza DPT, OCS, CSCS Referring Dr.: SADIE Lovett Status: REG RCR Insurance: [employer] SELF PAY INSURANCE Patient's Visit Information Visit Information Visit Information: LEONEL ANDRE is a 79 year old F referred to Physical Therapy by SADIE Cai with a diagnosis of chronic neck pain. Date of Evaluation: 09/14/24 Physical Therapist: Armond Garza, DONIS, OCS, CSCS Visit Plan Frequency: 2x /Week Duration: 4-6 Weeks Plan: 2x/week for 3-6 weeks IE HEP: scap circles 20x, R UT stretch 30" 5x, R c/s rotation ROM 20x, cervical retraction 20x all 2x/day with pics and postural focus with HO treat with : MH and STM to R UT, scalenes, rhomboids, may use thermal US to UT, stretch adn ROM ex to same and then eventual strength to posture and neck. Gt to I home program. Once improved, add in RC strength to toleerance. Subjective Subjective: Stiff neck for 6 weeks, multiple trips to doctor for tylenol and not improving. Frustrating and mood changing. Feel two wks ago and sore knees and R shoulder. X ray shoulder was OK. Insidous onset of neck soreness. Fall was due to bending down and turning but fell. Uses wh walker to get around out and about but not neeeded at home. Has cane she sometimes uses. Has been slow to get to bathroom and dressed and doesn't feel like going out to garden. Sleep is up every 2 hrs to pee adn moving in uncomfortable pulling covers with r arm and neck. R handed adn harder to brush teeth and do hair. Chriopractor did not help and made her worse. Pain neck: Pain Intensity (Out of 10): 2 Pain Intensity Range: 0 and 10 Comment: R sided, 0 at rest, Objective Objective: Walks into PT hunched over with wh walker mod I slow. Frustrated with R neck adn shoulder pain in her voice. Transfers chair and bed I. Cervical aROM 40 R rotation 55 L rotation, pain R, 8 L sidebend adn 14 R., 40 cervical extension, limited retraction. Posture is extreemely hunched with some R SB in neck, R rib hump and obvious scoliosis and kyphosis structural and postural. Flat lordosis in L/S. max tender in R UT, rhomboids and supraspinatus area on R. Atrophied in B RC muscles. UE AROM elevation to 115 B, some pain on R, er 25 R and 40 L, pain R, IR slow and painful R. elbow and wrist WFL. reflexes 2/3 bi and tri Sensation UE WNL to gross light touch. strength er 3 R and 4- L, elevation 3 R and 3+ L. IR 4- B. Pain with R er and flexion. scap mobility is limited B in reetraction and depression but able symmetrical. elbow and wrist strength 4-/5 B. - ext rotation lag, slight + R drop arm, - c/s compression. Balance/Special Test Scores Oswestry Neck Score: 32 Goals Goal 1:: Pain in neck adn shoulder 50% better at 2/10 at worst and manageable Goal Time Frame: 4-6 Weeks Goal 2:: I appropriate HEP for RC and postural and neck strength adn stretching, postural ROM to limit future problems Goal Time Frame: 4-6 Weeks Goal 3:: symmetircal neck ROM and er strength shoulders to allow for ease of ADLs Goal Time Frame: 4-6 Weeks Goal 4:: Neck oswestry to 5 or better Goal Time Frame: 4-6 Weeks Goal 5:: Work in garden adn do hair without increased pain Goal Time Frame: 4-6 Weeks Rehabilitation Potential Physical Therapy Diagnosis: R sided neck pain and tightness with limtied ROM making ADLs miserable Rehabilitation Potential: Fair Anticipated Interventions Patient/Client Instruction: Educate patient on: Condition and Plan of Care For the Purpose of:: To decrease pain, To increase ROM, To improve nutrient delivery to tissue and To increase tolerance to activity/condition/position Therapeutic Exercise to Include: Strength training, Postural training, Flexibilty training, Passive ROM and Active ROM For the Purpose of:: To decrease pain, To increase ROM, To improve nutrient delivery to tissue, To improve muscle performance and motor function, To increase tolerance to activity/condition/position and To increase flexibility/ROM Manual Therapy Techniques to Include: Petrissage, Mobilization, Passive ROM and Soft tissue mobilization For the Purpose of:: To decrease pain, To increase ROM, To improve nutrient delivery to tissue, To improve muscle performance and motor function, To increase tolerance to activity/condition/position, To improve health of tissue and To increase flexibility/ROM Thermo therapy (hot pack): Yes Ultrasound (thermal/non thermal): Yes For the Purpose of:: To decrease pain, To increase ROM and To improve nutrient delivery to tissue Text: Thank you for the opportunity to evaluate your patient. For Medicare and M-Files (more content not included)... Normal [facility] CNOVon 09-08-2024 CN Office Visit (INTMWS ) LEONEL ANDRE ([id number]) 1945 F Date Time Provider Department 09/08/24 1:40 PM XUAN BRANDON INTMWS During your visit today, we recorded the following information about you: Temperature Pulse Respiration Blood pressure 99.7 degrees 74/minute 14/minute 136/70 Weight Height 55.6 kg 1.676 m Xuan Brandon, POTATO PEELER.[employer] 09/08/2024 2:01 PM Signed We discussed your recent fall and associated injuries: - You reported pain in your right shoulder, both knees, and a stiff neck following your fall approximately 1.5 weeks ago. You also mentioned difficulty raising your right arm and performing daily activities like brushing your teeth or hair. - I ordered x-rays of your right shoulder, both knees, and your neck to check for fractures or dislocations. These will be completed downstairs today. Results for the shoulder and knees will be available today, while the neck x-ray may take longer as it is not urgent. - I will send a referral for physical therapy to [facility], as you prefer to go there. They will assist with your neck pain - Continue icing your knees and shoulder as needed. You may also use heat if it provides relief. - For pain management, you can take Tylenol as needed. For your knees, you may try Voltaren gel (an anti-inflammatory gel) to help reduce pain. - Riding your exercise bike is okay to resume, as it is low-impact and should not worsen your knee pain. We discussed your history of neck pain and prior careers adviser: - You mentioned that careers adviser worsened your neck pain and was not helpful. I recommend physical therapy instead of chiropractic treatment for your neck. Next steps: - Complete the x-rays of your right shoulder, both knees, and neck today. - Continue using ice, heat, Tylenol, and Voltaren gel as needed for pain relief. Please let me know if your symptoms worsen or if you have any additional concerns. Xuan Brandon, POTATO PEELER.[facility] 09/08/2024 2:10 PM Signed CC: Patient presents with: Same Day Appointment: fell approx 1.5week ago c/o shoulder pain and bilateral knee pain from fall. Patient is having problems lifting right arm HPI Recording using wishkicker software for draft documentation of the visit was discussed with the patient/authorized energy conservation representative; all questions welcomed and answered. Patient/authorized energy conservation representative agreed to proceed Peg Andre is a 79-year-old female with a history of osteoporosis, scoliosis, and chronic neck pain, presenting for evaluation of right shoulder and bilateral knee pain following a fall approximately 1.5 weeks ago. Peg reports a fall that occurred approximately 1.5 weeks ago while she was at home. She was picking up a bag from the floor and turned around quickly, resulting in a fall onto a hard floor. She believes she hit her right shoulder on a bench and both knees on the floor. She also reports a tender spot on her head but is unsure what she hit her head on. She denies any bruising or knots on her head. Since the fall, Peg has been experiencing severe pain in her right shoulder, rated as 25/10, which is exacerbated by lifting her arm, brushing her teeth, or brushing her hair. She also reports bilateral knee pain, rated as 10/10, which is less severe than the shoulder pain. She has been icing her knees and shoulder a couple of times. She denies any improvement in the pain and reports that it has worsened since the fall. She denies dizziness, lightheadedness, or blurry vision since the fall. Peg also reports ongoing stiffness in her neck. She has tried physical therapy and careers adviser for her neck pain, but reports that the pain worsened after three visits to the chiropractor. She was given a treatment plan by the chiropractor, but found it confusing and expensive. Review of Systems See HPI PAST MEDICAL HISTORY Diagnosis Date Allergic rhinitis, cause unspecified 11/08/2004 Carcinoma of kidney, renal cell 10/27/2011 left Degeneration of intervertebral disc, site unspecified 11/08/2004 Depressive disorder, not elsewhere classified 11/08/2004 Diaphragmatic hernia without mention of obstruction or gangrene 11/08/2004 Diarrhea 11/08/2004 Esophageal reflux 11/08/2004 Herpes zoster without complication 09/08/2020 Left leg Hypoglycemia, unspecified 11/08/2004 hypoglycemic events Internal hemorrhoids without mention of complication 11/08/2004 Lumbago 11/08/2004 Mass of right kidney 06/19/2021 Need for prophylactic hormone replacement therapy (postmenopausal) 11/08/2004 Osteoarthritis Osteoporosis 12/23/2014 Panic disorder without agoraphobia 11/08/2004 Persistent disorder of initiating or maintaining sleep 06/29/2010 PMH - PAST MEDICAL HISTORY OF 2009 Collapsed Arches in Feet Postmenopausal atrophic vaginitis 11/08/2004 Scoliosis more content not included)... Normal [facility] No Panel Informationon 09-08 IMPRESSION: 1. Marked degenerative changes in the cervical spine. No acute pathology identified. 2. Marked degenerative changes in the RIGHT shoulder 3. Marked degenerative changes in the spine Mathematics Faculty Member: [facility] Transcribe Date/Time: Sep 08 2024 2:43P Dictated by : MICHELLE MCCOLLUM DO This examination was interpreted and the report reviewed and electronically signed by: MICHELLE MCCOLLUM DO on Sep 08 2024 2:48PM EST DIVISION OF RADIOLOGY Radiology Study observation (narrative) [facility] No Panel InformationOrdered By: [facility]cf Provider on 09-08-2024 [facility] XR CERVICAL 2V FLEX/EXTon XR CERVICAL 2V FLEX/EXT * * *Final Report* * * DATE OF EXAM: Sep 08 2024 2:35PM WOX [id number] - XR CERVICAL 2V FLEX/EXT / PROCEDURE REASON: multiple diagnoses * * * * Physician Interpretation * * * * EXAM(s): XR CERVICAL 2V FLEX/EXT, XR SHLDR >/=3V AP/GORDY AP/OTHR RT HISTORY: Chronic neck pain Chronic neck pain Age related osteoporosis, unspecified pathological fracture presence PT STS IN FOR CPSINE PAIN. DP* UNABLE TO STAND UP REALLY STRAIGHT. NO PRV SX TO CSPINE' FELL RECENTLY (accession [id number]), PT STS IN FOR RT SHOULDER PAIN FROM FALL RECENTLY. NO PRV SX TO RT SHOULDER. (accession [id number]) TECHNIQUE: Views obtained: XR CERVICAL 2V FLEX/EXT, XR SHLDR >/=3V AP/GORDY AP/OTHR RT Comparison: None. RESULT: Findings: Cervical spine: Disk spaces: Marked disc space narrowing C4-5. Marked degenerative changes in the posterior aspect of the disc spaces at the C5-6 and C6-7 levels. Marked degenerative changes in the facet joints throughout the cervical spine Spine alignment: No significant change in alignment with flexion and extension is seen. No fractures or dislocations are seen. RIGHT shoulder: AC joint is markedly narrowed The glenohumeral joint is markedly narrowed Multiple lucent lesions with sclerotic margins in the humeral head probably representing degenerative changes The acromial humeral interval is loss Mild bony demineralization. IMPRESSION: 1. Marked degenerative changes in the cervical spine. No acute pathology identified. 2. Marked degenerative changes in the RIGHT shoulder 3. Marked degenerative changes in the spine Mathematics Faculty Member: [facility] Transcribe Date/Time: Sep 08 2024 2:43P Dictated by : MICHELLE MCCOLLUM DO This examination was interpreted and the report reviewed and electronically signed by: MICHELLE MCCOLLUM DO on Sep 08 2024 2:48PM EST [id number] Normal [facility] XR Cervical spine 2 or 3 vie ws and (Views W flexion and W extension)on 09-08-2024 * * *Final Report* * * DATE OF EXAM: Sep 08 2024 2:35PM WOX [id number] - XR CERVICAL 2V FLEX/EXT / PROCEDURE REASON: multiple diagnoses * * * * Physician Interpretation * * * * EXAM(s): XR CERVICAL 2V FLEX/EXT, XR SHLDR >/=3V AP/GORDY AP/OTHR RT HISTORY: Chronic neck pain Chronic neck pain Age related osteoporosis, unspecified pathological fracture presence PT STS IN FOR CPSINE PAIN. DP* UNABLE TO STAND UP REALLY STRAIGHT. NO PRV SX TO CSPINE' FELL RECENTLY (accession [id number]), PT STS IN FOR RT SHOULDER PAIN FROM FALL RECENTLY. NO PRV SX TO RT SHOULDER. (accession [id number]) TECHNIQUE: Views obtained: XR CERVICAL 2V FLEX/EXT, XR SHLDR >/=3V AP/GORDY AP/OTHR RT Comparison: None. RESULT: Findings: Cervical spine: Disk spaces: Marked disc space narrowing C4-5. Marked degenerative changes in the posterior aspect of the disc spaces at the C5-6 and C6-7 levels. Marked degenerative changes in the facet joints throughout the cervical spine Spine alignment: No significant change in alignment with flexion and extension is seen. No fractures or dislocations are seen. RIGHT shoulder: AC joint is markedly narrowed The glenohumeral joint is markedly narrowed Multiple lucent lesions with sclerotic margins in the humeral head probably representing degenerative changes The acromial humeral interval is loss Mild bony demineralization. DIVISION OF RADIOLOGY Provider, [facility] - 09/08/2024 * * *Final Report* * * DATE OF EXAM: Sep 08 2024 2:35PM WOX 5588 - XR CERVICAL 2V FLEX/EXT / PROCEDURE REASON: multiple diagnoses * * * * Physician Interpretation * * * * EXAM(s): XR CERVICAL 2V FLEX/EXT, XR SHLDR >/=3V AP/GORDY AP/OTHR RT HISTORY: Chronic neck pain Chronic neck pain Age related osteoporosis, unspecified pathological fracture presence PT STS IN FOR CPSINE PAIN. DP* UNABLE TO STAND UP REALLY STRAIGHT. NO PRV SX TO CSPINE' FELL RECENTLY (accession [id number]), PT STS IN FOR RT SHOULDER PAIN FROM FALL RECENTLY. NO PRV SX TO RT SHOULDER. (accession [id number]) TECHNIQUE: Views obtained: XR CERVICAL 2V FLEX/EXT, XR SHLDR >/=3V AP/GORDY AP/OTHR RT Comparison: None. RESULT: Findings: Cervical spine: Disk spaces: Marked disc space narrowing C4-5. Marked degenerative changes in the posterior aspect of the disc spaces at the C5-6 and C6-7 levels. Marked degenerative changes in the facet joints throughout the cervical spine Spine alignment: No significant change in alignment with flexion and extension is seen. No fractures or dislocations are seen. RIGHT shoulder: AC joint is markedly narrowed The glenohumeral joint is markedly narrowed Multiple lucent lesions with sclerotic margins in the humeral head probably representing degenerative changes The acromial humeral interval is loss Mild bony demineralization. IMPRESSION IMPRESSION: 1. Marked degenerative changes in the cervical spine. No acute pathology identified. 2. Marked degenerative changes in the RIGHT shoulder 3. Marked degenerative changes in the spine Mathematics Faculty Member: [facility] Transcribe Date/Time: Sep 08 2024 2:43P Dictated by : MICHELLE MCCOLLUM DO This examination was interpreted and the report reviewed and electronically signed by: MICHELLE MCCOLLUM DO on Sep 08 2024 2:48PM [facility] XR KNEE 4V AP/PA/LAT/MERCH B [facility] 09-08-2024 XR KNEE 4V AP/PA/LAT/MERCH CARLOS * * *Final Report* * * DATE OF EXAM: Sep 08 2024 2:37PM WOX 5618 - XR KNEE 4V AP/PA/LAT/MERCH CARLOS / PROCEDURE REASON: multiple diagnoses * * * * Physician Interpretation * * * * Mucosal EXAM(s): XR KNEE 4V AP/PA/LAT/MERCH CARLOS EXAM DATE/TIME: 09/08/2024 2:37 PM HISTORY: 79 years old Clinical information: Acute pain of both knees Acute pain of both knees Fall on same level from slipping, tripping or stumbling, initial encounter Age related osteoporosis, unspecified pathological fracture presence PT STS IN FOR BILATERAL KNEE PAIN FROM FALL RECENTLY. TECHNIQUE: Images: XR KNEE 4V AP/PA/LAT/MERCH CARLOS Comparison: LEFT and RIGHT knee 02/11/2012 RESULT: Findings: The components of the bilateral knee arthroplasties are in good alignment with the respective bones and each other. There is no evidence of loosening of the components. Right :No fractures or dislocations are seen. Left :No fractures or dislocations are seen. IMPRESSION: Findings as discussed in results portion of report. No acute pathology identified Mathematics Faculty Member: [facility] Transcribe Date/Time: Sep 08 2024 2:48P Dictated by : MICHELLE MCCOLLUM DO This examination was interpreted and the report reviewed and electronically signed by: MICHELLE MCCOLLUM DO on Sep 08 2024 2:50PM EST [id number] Normal [facility] XR Knee - bilateral 4 Viewso n 09-08-2024 IMPRESSION: Findings as discussed in results portion of report. No acute pathology identified Mathematics Faculty Member: [facility] Transcribe Date/Time: Sep 08 2024 2:48P Dictated by : MICHELLE MCCOLLUM DO This examination was interpreted and the report reviewed and electronically signed by: MICHELLE MCCOLLUM DO on Sep 08 2024 2:50PM EST DIVISION OF RADIOLOGY * * *Final Report* * * DATE OF EXAM: Sep 08 2024 2:37PM WOX [id number] - XR KNEE 4V AP/PA/LAT/MERCH CARLOS / PROCEDURE REASON: multiple diagnoses * * * * Physician Interpretation * * * * Mucosal EXAM(s): XR KNEE 4V AP/PA/LAT/MERCH CARLOS EXAM DATE/TIME: 09/08/2024 2:37 PM HISTORY: 79 years old Clinical information: Acute pain of both knees Acute pain of both knees Fall on same level from slipping, tripping or stumbling, initial encounter Age related osteoporosis, unspecified pathological fracture presence PT STS IN FOR BILATERAL KNEE PAIN FROM FALL RECENTLY. TECHNIQUE: Images: XR KNEE 4V AP/PA/LAT/MERCH CARLOS Comparison: LEFT and RIGHT knee 02/11/2012 RESULT: Findings: The components of the bilateral knee arthroplasties are in good alignment with the respective bones and each other. There is no evidence of loosening of the components. Right :No fractures or dislocations are seen. Left :No fractures or dislocations are seen. DIVISION OF RADIOLOGY Provider, [facility] - 09/08/2024 * * *Final Report* * * DATE OF EXAM: Sep 08 2024 2:37PM WOX [id number] - XR KNEE 4V AP/PA/LAT/MERCH CARLOS / PROCEDURE REASON: multiple diagnoses * * * * Physician Interpretation * * * * Mucosal EXAM(s): XR KNEE 4V AP/PA/LAT/MERCH CARLOS EXAM DATE/TIME: 09/08/2024 2:37 PM HISTORY: 79 years old Clinical information: Acute pain of both knees Acute pain of both knees Fall on same level from slipping, tripping or stumbling, initial encounter Age related osteoporosis, unspecified pathological fracture presence PT STS IN FOR BILATERAL KNEE PAIN FROM FALL RECENTLY. TECHNIQUE: Images: XR KNEE 4V AP/PA/LAT/MERCH CARLOS Comparison: LEFT and RIGHT knee 02/11/2012 RESULT: Findings: The components of the bilateral knee arthroplasties are in good alignment with the respective bones and each other. There is no evidence of loosening of the components. Right :No fractures or dislocations are seen. Left :No fractures or dislocations are seen. IMPRESSION IMPRESSION: Findings as discussed in results portion of report. No acute pathology identified Mathematics Faculty Member: [facility] Transcribe Date/Time: Sep 08 2024 2:48P Dictated by : MICHELLE MCCOLLUM DO This examination was interpreted and the report reviewed and electronically signed by: MICHELLE MCCOLLUM DO on Sep 08 2024 2:50PM [facility] XR SHLDR >/=3V AP/GORDY AP/OTH R RTon 09-08-2024 XR SHLDR >/=3V AP/GORDY AP/OTHR RT * * *Final Report* * * DATE OF EXAM: Sep 08 2024 2:36PM WOX [id number] - XR SHLDR >/=3V AP/GORDY AP/OTHR RT / PROCEDURE REASON: multiple diagnoses * * * * Physician Interpretation * * * * EXAM(s): XR CERVICAL 2V FLEX/EXT, XR SHLDR >/=3V AP/GORDY AP/OTHR RT HISTORY: Chronic neck pain Chronic neck pain Age related osteoporosis, unspecified pathological fracture presence PT STS IN FOR CPSINE PAIN. DP* UNABLE TO STAND UP REALLY STRAIGHT. NO PRV SX TO CSPINE' FELL RECENTLY (accession [id number]), PT STS IN FOR RT SHOULDER PAIN FROM FALL RECENTLY. NO PRV SX TO RT SHOULDER. (accession [id number]) TECHNIQUE: Views obtained: XR CERVICAL 2V FLEX/EXT, XR SHLDR >/=3V AP/GORDY AP/OTHR RT Comparison: None. RESULT: Findings: Cervical spine: Disk spaces: Marked disc space narrowing C4-5. Marked degenerative changes in the posterior aspect of the disc spaces at the C5-6 and C6-7 levels. Marked degenerative changes in the facet joints throughout the cervical spine Spine alignment: No significant change in alignment with flexion and extension is seen. No fractures or dislocations are seen. RIGHT shoulder: AC joint is markedly narrowed The glenohumeral joint is markedly narrowed Multiple lucent lesions with sclerotic margins in the humeral head probably representing degenerative changes The acromial humeral interval is loss Mild bony demineralization. IMPRESSION: 1. Marked degenerative changes in the cervical spine. No acute pathology identified. 2. Marked degenerative changes in the RIGHT shoulder 3. Marked degenerative changes in the spine Mathematics Faculty Member: [facility] Transcribe Date/Time: Sep 08 2024 2:43P Dictated by : MICHELLE MCCOLLUM DO This examination was interpreted and the report reviewed and electronically signed by: MICHELLE MCCOLLUM DO on Sep 08 2024 2:48PM EST [id number] Normal [facility] XR Shoulder - right 3 Viewso n 09-08-2024 * * *Final Report* * * DATE OF EXAM: Sep 08 2024 2:36PM WOX 5253 - XR SHLDR >/=3V AP/GORDY AP/OTHR RT / PROCEDURE REASON: multiple diagnoses * * * * Physician Interpretation * * * * EXAM(s): XR CERVICAL 2V FLEX/EXT, XR SHLDR >/=3V AP/GORDY AP/OTHR RT HISTORY: Chronic neck pain Chronic neck pain Age related osteoporosis, unspecified pathological fracture presence PT STS IN FOR CPSINE PAIN. DP* UNABLE TO STAND UP REALLY STRAIGHT. NO PRV SX TO CSPINE' FELL RECENTLY (accession [id number]), PT STS IN FOR RT SHOULDER PAIN FROM FALL RECENTLY. NO PRV SX TO RT SHOULDER. (accession [id number]) TECHNIQUE: Views obtained: XR CERVICAL 2V FLEX/EXT, XR SHLDR >/=3V AP/GORDY AP/OTHR RT Comparison: None. RESULT: Findings: Cervical spine: Disk spaces: Marked disc space narrowing C4-5. Marked degenerative changes in the posterior aspect of the disc spaces at the C5-6 and C6-7 levels. Marked degenerative changes in the facet joints throughout the cervical spine Spine alignment: No significant change in alignment with flexion and extension is seen. No fractures or dislocations are seen. RIGHT shoulder: AC joint is markedly narrowed The glenohumeral joint is markedly narrowed Multiple lucent lesions with sclerotic margins in the humeral head probably representing degenerative changes The acromial humeral interval is loss Mild bony demineralization. DIVISION OF RADIOLOGY Provider, Silver sanchez [place] - 09/08/2024 * * *Final Report* * * DATE OF EXAM: Sep 08 2024 2:36PM WOX 5253 - XR SHLDR >/=3V AP/GORDY AP/OTHR RT / PROCEDURE REASON: multiple diagnoses * * * * Physician Interpretation * * * * EXAM(s): XR CERVICAL 2V FLEX/EXT, XR SHLDR >/=3V AP/GORDY AP/OTHR RT HISTORY: Chronic neck pain Chronic neck pain Age related osteoporosis, unspecified pathological fracture presence PT STS IN FOR CPSINE PAIN. DP* UNABLE TO STAND UP REALLY STRAIGHT. NO PRV SX TO CSPINE' FELL RECENTLY (accession [id number]), PT STS IN FOR RT SHOULDER PAIN FROM FALL RECENTLY. NO PRV SX TO RT SHOULDER. (accession [id number]) TECHNIQUE: Views obtained: XR CERVICAL 2V FLEX/EXT, XR SHLDR >/=3V AP/GORDY AP/OTHR RT Comparison: None. RESULT: Findings: Cervical spine: Disk spaces: Marked disc space narrowing C4-5. Marked degenerative changes in the posterior aspect of the disc spaces at the C5-6 and C6-7 levels. Marked degenerative changes in the facet joints throughout the cervical spine Spine alignment: No significant change in alignment with flexion and extension is seen. No fractures or dislocations are seen. RIGHT shoulder: AC joint is markedly narrowed The glenohumeral joint is markedly narrowed Multiple lucent lesions with sclerotic margins in the humeral head probably representing degenerative changes The acromial humeral interval is loss Mild bony demineralization. IMPRESSION IMPRESSION: 1. Marked degenerative changes in the cervical spine. No acute pathology identified. 2. Marked degenerative changes in the RIGHT shoulder 3. Marked degenerative changes in the spine Mathematics Faculty Member: PSCB Transcribe Date/Time: Sep 08 2024 2:43P Dictated by : MICHELLE MCCOLLUM DO This examination was interpreted and the report reviewed and electronically signed by: MICHELLE MCCOLLUM DO on Sep 08 2024 2:48PM [facility] CNOVon 08-03-2024 CNOV Office Visit (INTMWS ) LEONEL ANDRE ([id number]) 1945 F Date Time Provider Department 08/03/24 2:40 PM XUAN BRANDON INTMWS During your visit today, we recorded the following information about you: Pulse Respiration Blood pressure Weight 56/minute 12/minute 140/66 55.3 kg Xuan Brandon, [employer]OT[employer] PE[employer]ER 08/03/2024 3:08 PM Signed CC: Patient presents with: Pain: Neck x 6 weeks creating headache daily HPI Recording using wishkicker software for draft documentation of the visit was discussed with the patient/authorized energy conservation representative; all questions welcomed and answered. Patient/authorized energy conservation representative agreed to proceed Peg is a 79-year-old female presenting with neck pain, sinus drainage, and fatigue. Peg reports a 3-4 week history of constant, dull, aching pain in the posterior neck, extending between the shoulder blades and associated with muscle knots. The pain is exacerbated by head movements, including turning, looking up, and looking down, and it disrupts her sleep. She also experiences shoulder aches but denies any paresthesia or hypoesthesia in the arms. She has no prior history of neck pain and denies any recent falls or injuries. Concurrently, she reports a 6-week history of posterior cephalalgia, chills, and fatigue. The headaches are associated with watery eyes and occasional mild blurred vision, but she denies otalgia or pressure. She has been experiencing increased sinus drainage, with green and yellow discharge, for the past month, along with intermittent coughing spells. Cough is non-productive. She has a history of seasonal allergies and is currently taking Zyrtec, which she reports is effective. She denies dyspnea, wheezing, or dental pain. Review of Systems Constitutional: Negative for appetite change and fever. Respiratory: Positive for cough. Negative for shortness of breath and wheezing. Cardiovascular: Negative for chest pain, palpitations and leg swelling. Musculoskeletal: Negative for neck stiffness. Neurological: Negative for dizziness, tremors, seizures, syncope, speech difficulty, weakness, light-headedness and numbness. PAST MEDICAL HISTORY Diagnosis Date Allergic rhinitis, cause unspecified 11/08/2004 Carcinoma of kidney, renal cell 10/27/2011 left Degeneration of intervertebral disc, site unspecified 11/08/2004 Depressive disorder, not elsewhere classified 11/08/2004 Diaphragmatic hernia without mention of obstruction or gangrene 11/08/2004 Diarrhea 11/08/2004 Esophageal reflux 11/08/2004 Herpes zoster without complication 09/08/2020 Left leg Hypoglycemia, unspecified 11/08/2004 hypoglycemic events Internal hemorrhoids without mention of complication 11/08/2004 Lumbago 11/08/2004 Mass of right kidney 06/19/2021 Need for prophylactic hormone replacement therapy (postmenopausal) 11/08/2004 Osteoarthritis Osteoporosis 12/23/2014 Panic disorder without agoraphobia 11/08/2004 Persistent disorder of initiating or maintaining sleep 06/29/2010 PMH - PAST MEDICAL HISTORY OF 2009 Collapsed Arches in Feet Postmenopausal atrophic vaginitis 11/08/2004 Scoliosis 08/29/2011 Unequal leg length (acquired) 01/21/2006 Unspecified essential hypertension 11/08/2004 Urge incontinence 11/28/2011 Urinary frequency 06/29/2010 Uterovaginal prolapse 10/01/2013 PAST SURGICAL HISTORY Procedure Laterality Date ARTHRP KNE CONDYLEANDPLATU MEDIALANDLAT COMPARTMENTS Bilateral 02/21/2012 Knee replacement, total, Bilateral CHOLECYSTECTOMY 1981 open COLONOSCOPY - DIAGNOSTIC 03/30/2024 Poor prep. Repeat recommended. COLONOSCOPY FLX DX W/COLLJ SPEC WHEN PFRMD 06/09/2004 Colonoscopy COLONOSCOPY FLX DX W/COLLJ SPEC WHEN PFRMD 10/08/2016 Colonoscopy DILATION AND CURETTAGE DXAND/THER NONOBSTETRIC 1976 x 2 ESOPHAGOGASTRODUODENOSCOPY TRANSORAL DIAGNOSTIC 11/06/2012 EGD ESOPHAGOGASTRODUODENOSCOPY TRANSORAL DIAGNOSTIC 07/10/2013 EGD ESOPHAGOGASTRODUODENOSCOPY TRANSORAL DIAGNOSTIC 10/08/2016 EGD F COLONOSCOPY WITH POLYPECTOMY 06/12/2024 [facility] Serrated adenoma. LAPAROSCOPY PARTIAL NEPHRECTOMY Left 10/25/2011 Robotic left partial nephrectomy d/t renal cell carcinoma LIG/TRNSXJ FLP TUBE ABDL/VAG APPR UNI/BI 1975 Tubal ligation ALLERGIES Dust, Lexapro [Escitalopram Oxalate], Lisinopril, Mold, Nexium [Esomeprazole Magnesium], Nexium [Esomeprazole Magnesium], and Ragweed MEDICATIONS lactulose 10 gram/15 mL solution linaclotide (LINZESS) 145 mcg capsule Take 1 capsule by mouth once daily. Take capsule on an empty stomach at least 30 minutes before a meal at the same time each day. Capsule should be swallowed whole. DO NOT chew or crush hydroCHLOROthiazide 25 mg tablet Take 1 tablet by mouth once daily. LORazepam (ATIVAN) 0.5 mg Take 1 tablet by mouth once daily as needed (anxiety) for up to 90 days. 3 months supply. oxybutynin (more content not included)... Normal [facility] Gastroenterology Visit Repor ton 07-15-2024 Gastroenterology Visit Report [facility] Gastroenterology [address] [place] [address] OFFICE VISIT Date of Service: 07/15/24 MR#: [id number] Acct: [id number] Name: LEONEL ANDRE Rep #: [id number] : 1945 Provider: ALBINA Leach Age/Sex: 79/F Location: [facility] Status: Signed Intake Vital Signs 06/12/24 11:59 Height 5 ft 4 in Intake Visit Reasons: Follow up Chief Complaint: constipation Allergies lisinopril Allergy (Verified 06/12/24 11:58) Swelling esomeprazole (From Nexium) Adverse Reaction (Verified 06/12/24 11:58) Nausea/Vom/Diarrhea Medications ???Medication ???Instructions ???Recorded ???Confirmed ???Type cholecalciferol (vitamin D3) 25 2,000 unit PO DAILY 12/26/1506/08 History mcg (1,000 unit) tablet (Vitamin D3) oxybutynin chloride 5 mg tablet 5 mg PO BID 12/26/15 06/08/24 Hist ory diltiazem HCl 180 mg capsule,24 360 mg PO DAILY 09/08/20 06/12/24 History hr,extended release lorazepam 0.5 mg tablet 0.5 mg PO DAILY 09/08/20 06/08/24 History acetaminophen 500 mg tablet 500 mg PO Q6H PRN pain 08/23/22 History (Tylenol Extra Strength) cetirizine 5 mg tablet 5 mg PO DAILY PRN allergy symptoms 08/23/22 06/08/24 History fluticasone propionate 50 1 spray intranasal DAILY 08/23/22 06/08/24 History mcg/actuation nasal spray,suspension omeprazole 40 mg capsule,delayed 40 mg PO DAILY 08/23/22 06/08/24 H istory release sodium chloride 0.65 % nasal spray 1 spray intranasal DAILY 3 06/08/24 History aerosol denosumab 60 mg/mL subcutaneous 60 mg subcut [id number] #1 mL 06/08/24 Rx syringe (Prolia) Lactobacillus rhamnosus GG 20 1 cell PO DAILY 12/16/23 06/08/24 History billion cell capsule (Probiotic [facility]) ondansetron 8 mg disintegrating 8 mg PO Q8H PRN nausea and 4 06/08/24 Rx tablet vomiting #15 tabs docusate sodium 100 mg capsule 100 mg PO TID #90 caps 03/25/24 Rx linaclotide 145 mcg capsule 145 mcg PO QAM #30 caps 05/15/24 0 06/08/24 Rx (Linzess) losartan 50 mg tablet 50 mg PO BID 06/08/24 06/12/24 His tory hydrochlorothiazide 25 mg tablet 25 mg PO QAM 07/15/24 07/15/24 His tory lactulose 10 gram/15 mL oral 10 g (15 mL) PO QDAY #473 mL 07/1507/15/24 Rx solution Have you fallen in the past year?: No Nurse's Note: OV 07/15/24 Pt here for a f/u and reports nausea, constipation, abdominal pain, gas and bloating. Pt reports a bm is every 7-10 days. Pt continues Linzess, and omeprazole daily. [facility] Medical History Wears glasses Cancer Anxiety Ambulates with cane History of renal disease Bladder disease History of hiatal hernia Gastric reflux Former smoker Gait disturbance Diverticular disease Primary hyperparathyroidism Sciatica Age related osteoporosis Bowel obstruction Scoliosis Lumbar radiculopathy Hx of renal cell carcinoma Osteoporosis GERD (gastroesophageal reflux disease) Hypoglycemia HTN (hypertension) Bladder prolapse Surgical History Hx of colonoscopy History of tubal ligation History of cholecystectomy History of knee replacement H/O partial nephrectomy Family History Father Alcoholism Brother Alcoholism Mother Arthritis Hypertension Osteoporosis Social History Smoking Status: Former smoker alcohol intake: never what type of physical activity do you participate in: bicycling HPI HPI Chief Complaint: constipation Details: LEONEL ANDRE, is a 79 F who presents to the office today for f/u. [facility] established in Mar 2024 after numerous ED visits for suspected rectal prolapse. [facility] ED 02.21.24 w/ watery diarrhea followed by n/v for 24 hours. Work up mostly unremarkable. Suspected viral gastroenteritis. Discharged after IV fluids and potassium repletion. CT abd/pelvis 02.21.24; 1. Nonspecific fluid-filled small bowel loops and colon without evidence of bowel obstruction could be due to enterocolitis. 2. Persistent complex hypodense lesion in the right kidney slightly larger than the previous examinations could be due to slowly growing tumor. [facility] ED 1..25; with no bowel movement for 3 weeks and mild intermittent rectal bleeding. [facility] 1..25; Moderate to large amount of colonic stool and gas. [facility] 1.17.25 with constipation and suspected rectal prolapse per pt. Normal work up. Physical exam with no indication of rectal prolapse. Colonoscopy 03.30.24;- Preparation of the colon was poor. - Diverticulosis in the recto-sigmoid colon and in the sigmoid colon. - Stool in the entire examined colon. - (more content not included)... Normal [facility] CNOVon 07-02-2024 CNOV Office Visit (INTMWS ) LEONEL ANDRE ([id number]) 1945 F Date Time Provider Department 07/02/24 3:40 PM FEMI BAEZA INTRebeccaWS During your visit today, we recorded the following information about you: Pulse Respiration Blood pressure Weight 60/minute 12/minute 130/64 56.9 kg Femi Baeza MD 07/02/2024 6:10 PM Signed This note was created using [employer]. Subjective Leonel Andre is a 79 year old female. She stopped hydrochlorothiazide due to a faint rash in her chest. Edema was better. Her hypertension was stable. Weight was stable. She continued with constipation. She was also not pleased with [employer]. She felt her colon biopsy results were not communicated to her, other than the recommendation she have a repeat colonoscopy in one year for a precancerous lesion. Review of Systems Constitutional: Negative for fatigue and fever. Respiratory: Negative for cough and shortness of breath. Cardiovascular: Negative for chest pain and leg swelling. Gastrointestinal: Positive for constipation. Genitourinary: Negative for dysuria. ACTIVE PROBLEM LIST Essential Hypertension Esophageal Reflux Vitamin D Deficiency Constipation Scoliosis Urge Incontinence History of Renal Cell Carcinoma Osteoporosis Anxiety Pain in Right Hip Radiculopathy, Lumbar Region Mass of Right Kidney Social History Tobacco Use Smoking status: Former Current packs/day: 0.00 Average packs/day: 1 pack/day for 23.0 years (23.0 ttl pk-yrs) Types: Cigarettes Start date: 03/04/1956 Quit date: 03/04/1979 Years since quittin.3 Smokeless tobacco: Never Vaping Use Vaping status: Never Used Substance Use Topics Alcohol use: No Drug use: No Current Outpatient Medications Medication Sig linaclotide (LINZESS) 145 mcg capsule Take 1 capsule by mouth once daily. Take capsule on an empty stomach at least 30 minutes before a meal at the same time each day. Capsule should be swallowed whole. DO NOT chew or crush hydroCHLOROthiazide 25 mg tablet Take 1 tablet by mouth once daily. (Patient not taking: Reported on 07/02/2024) LORazepam (ATIVAN) 0.5 mg Take 1 tablet by mouth once daily as needed (anxiety) for up to 90 days. 3 months supply. oxybutynin (DITROPAN) 5 mg tablet Take 1 tablet by mouth two times a day. omeprazole (PRILOSEC) 40 mg capsule Take 1 capsule by mouth once daily. dilTIAZem CR (TAZTIA XT) 180 mg 24 hr capsule Take 2 capsules by mouth once daily. losartan (COZAAR) 50 mg tablet Take 1 tablet by mouth two times a day. docusate sodium (COLACE) 100 mg capsule Take 1 capsule by mouth two times a day. Cholecalciferol, Vitamin D3, 50 mcg (2,000 unit) cap Take 1 capsule by mouth once daily. Prescribed by endocrinology (Dr. César Johnson) denosumab (PROLIA) 60 mg/mL Once every 6 months. Prescribed by endocrinology (Dr. César Johnson) Dextrin (EASY FIBER) 3 gram/3.5 gram powd Take 3 g by mouth once daily. Mixed with water. Sennosides (SENOKOT EXTRA STRENGTH) 17.2 mg tab Take 1 tablet by mouth daily with lunch AND 2 tablets daily at bedtime. lactobacillus comb no.10 (PROBIOTIC) 20 billion cell cap Take 1 capsule by mouth daily at bedtime. fexofenadine (MUCINEX ALLERGY) 180 mg tablet Take 180 mg by mouth once daily. fluticasone (FLONASE) 50 mcg/actuation nasal spray Use 2 Sprays in each nostril once daily. Rinse mouth after use. ACETAMINOPHEN (TYLENOL ARTHRITIS ORAL) Take by mouth. No current facility-administered medications for this visit. Objective BP 130/64 (BP Site: Left Arm, BP Position: Sitting, BP Cuff Size: Large Adult) Pulse 60 Resp 12 Wt 56.9 kg (125 lb 7.1 oz) BMI 20.25 kg/m? Physical Exam Constitutional: General: She is not in acute distress. Appearance: She is not ill-appearing. Cardiovascular: Rate and Rhythm: Normal rate and regular rhythm. Heart sounds: No murmur heard. No gallop. Pulmonary: Breath sounds: Normal breath sounds. Musculoskeletal: Right lower leg: No edema. Left lower leg: No edema. Skin: Findings: Rash present. Comments: Faint resolving maculopapular rash of the chest. Neurological: Mental Status: She is alert. Assessment and Plan 1. Lower leg edema - ICD9: 782.3, ICD10: R60.0 (primary diagnosis) Improved. 2. Essential hypertension - ICD9: 401.9, ICD10: I10 - Improving control - Continue current medications - Trial hydrochlorothiazide again in 1 week and see if rash recurs. 3. Chronic idiopathic constipation - ICD9: 564.00, ICD10: K59.04 2nd opinion. - CONSULT TO GASTROENTEROLOGY 4. Weight loss, non-intentional - ICD9: 783.21, ICD10: R63.4 - CONSULT TO GASTROENTEROLOGY 5. Polyp of colon, unspecified part of colon, unspecified type - ICD9: 211.3, ICD10: K63.5 Pathology retrieved from [facility]: serrated adenoma. - CONSULT TO GASTROENTEROLOGY Femi Baeza MD Allergies As of Date: 07/02/2024 (more content not included)... Normal [facility] Bacteria Ur Culton Bacteria identified Cx Nom (U) ORGANISM ID: 1 <10,000 CFU/ml Normal urogenital blu Normal [facility] Comment on above: Performed By: #### 6 30-4 #### [facility] CLIA [id number] [address] [place] [address] OF [facility] CNOVon 06-25-2024 CNOV Office Visit (INTMWS ) SOMMERLIZZIELEONEL ([id number]) 1945 F Date Time Provider Department 06/25/24 4:40 PM FEMI BAEZA INTMWS During your visit today, we recorded the following information about you: Pulse Respiration Blood pressure Weight 62/minute 16/minute 134/67 57.5 kg Femi Baeza MD 06/25/2024 7:18 PM Signed This note was created using NoteWriter. Subjective Leonelshivani Andre is a 79 year old female. Patient presents with: Swelling: In CARLOS lower legs with weight loss x 1 month Recording using ambient AI software for draft documentation of the visit was discussed with the patient/authorized energy conservation representative; all questions welcomed and answered. Patient/authorized energy conservation representative agreed to proceed Peg is a 79-year-old female with a history of constipation, presenting with bilateral lower extremity edema and weight loss. Peg reports a gradual onset of bilateral lower extremity edema over the past month, with swelling and soreness in her feet and ankles. The edema worsens throughout the day, particularly in the evening, and improves by morning. She notes increased swelling upon ambulation. She denies any recent changes in her medication regimen, except for the initiation of Linzess 145 mg on 05/19/2024 for constipation. She denies diarrhea but reports irregular bowel movements, describing occasional watery stools. She has been consuming Ensure to supplement her diet. Peg also reports dysuria, characterized by burning and abdominal cramping during urination. She mentions a history of right kidney issues since 2011, with no recent changes reported by her urologist, Dr. Chaevs. She denies fever, dyspnea, or significant cough, attributing her occasional cough to allergies. She underwent a colonoscopy 2 weeks ago, during which a polyp was removed. She has not received the pathology report yet. She expresses concern about her bowel movements, leading to poor sleep and reduced appetite. She has experienced significant weight loss, dropping from 140 lbs to 122 lbs over a short period. She denies excessive salt intake, actively avoiding it in her diet. Review of Systems Constitutional: (-) fever, (+) weight loss, (+) decreased appetite, (+) sleep disturbance Ears/Nose/Mouth/Throat: (+) runny nose Respiratory: (+) cough, (-) shortness of breath Gastrointestinal: (+) constipation, (-) diarrhea Genitourinary: (+) dysuria Musculoskeletal: (+) bilateral foot/ankle swelling, (+) foot/ankle soreness Neurological: (+) right foot numbness Psychiatric: (+) anxiety ACTIVE PROBLEM LIST Essential Hypertension Esophageal Reflux Vitamin D Deficiency Constipation Scoliosis Urge Incontinence History of Renal Cell Carcinoma Osteoporosis Anxiety Pain in Right Hip Radiculopathy, Lumbar Region Mass of Right Kidney Current Outpatient Medications Medication Sig LORazepam (ATIVAN) 0.5 mg Take 1 tablet by mouth once daily as needed (anxiety) for up to 90 days. 3 months supply. oxybutynin (DITROPAN) 5 mg tablet Take 1 tablet by mouth two times a day. omeprazole (PRILOSEC) 40 mg capsule Take 1 capsule by mouth once daily. dilTIAZem CR (TAZTIA XT) 180 mg 24 hr capsule Take 2 capsules by mouth once daily. losartan (COZAAR) 50 mg tablet Take 1 tablet by mouth two times a day. docusate sodium (COLACE) 100 mg capsule Take 1 capsule by mouth two times a day. Cholecalciferol, Vitamin D3, 50 mcg (2,000 unit) cap Take 1 capsule by mouth once daily. Prescribed by endocrinology (Dr. César Johnson) denosumab (PROLIA) 60 mg/mL Once every 6 months. Prescribed by endocrinology (Dr. César Johnson) Dextrin (EASY FIBER) 3 gram/3.5 gram powd Take 3 g by mouth once daily. Mixed with water. Sennosides (SENOKOT EXTRA STRENGTH) 17.2 mg tab Take 1 tablet by mouth daily with lunch AND 2 tablets daily at bedtime. lactobacillus comb no.10 (PROBIOTIC) 20 billion cell cap Take 1 capsule by mouth daily at bedtime. fexofenadine (MUCINEX ALLERGY) 180 mg tablet Take 180 mg by mouth once daily. fluticasone (FLONASE) 50 mcg/actuation nasal spray Use 2 Sprays in each nostril once daily. Rinse mouth after use. ACETAMINOPHEN (TYLENOL ARTHRITIS ORAL) Take by mouth. linaclotide (LINZESS) 145 mcg capsule Take 1 capsule by mouth once daily. Take capsule on an empty stomach at least 30 minutes before a meal at the same time each day. Capsule should be swallowed whole. DO NOT chew or crush No current facility-administered medications for this visit. Objective BP 134/67 Pulse 62 Resp 16 Wt 57.5 kg (126 lb 12.2 oz) SpO2 97% BMI 20.46 kg/m? Physical Exam Constitutional: General: She is not in acute distress. HENT: Nose: No congestion or rhinorrhea. Cardiovascular: Rate and Rhythm: Normal rate and regular rhythm. Heart sounds: No murmur heard. No gallop. Pulmonary: Effort: No respir (more content not included)... Normal [facility] XR CHEST 2V FRONTAL/LATon XR CHEST 2V FRONTAL/LAT * * *Final Report* * * DATE OF EXAM: Jun 25 2024 6:02PM WOX 5291 - XR CHEST 2V FRONTAL/LAT / PROCEDURE REASON: Cough, unspecified type * * * * Physician Interpretation * * * * EXAMINATION: CHEST RADIOGRAPH (2 VIEW FRONTAL and LATERAL) CLINICAL HISTORY: Cough, unspecified type MQ: [id number] EXAM DATE/TIME: 06/25/2024 6:02 PM COMPARISON: 10/09/2011 RESULT: Lines, tubes, and devices: None. Lungs and pleura: No consolidation. No lung mass. No pleural effusion. No pneumothorax. Cardiomediastinal silhouette: Normal cardiomediastinal silhouette. Bones and soft tissues: Severe levoscoliosis. Large hiatal hernia. IMPRESSION: No acute radiographic abnormality. Mathematics Faculty Member: VASU Transcribe Date/Time: Jun 27 2024 10:48A Dictated by : ANGELY ANTONIO MD This examination was interpreted and the report reviewed and electronically signed by: ANGELY ANTONIO MD on Jun 27 2024 10:49AM EST [id number] Normal [facility] Office Visit Reporton 2024 Office Visit Report [facility] [address] [place] [address] OFFICE VISIT Date of Service: 06/24/24 MR#: [id number] Acct: [id number] Patient: LEONEL ANDRE Rep #: [id number] : 1945 Provider: SADIE parnell Age/Sex: 79/F [place] [facility] [place]: Signed Intake Vital Signs 06/12/24 11:59 Height 5 ft 4 in Intake Visit Reasons: Prolia - B B Chief Complaint: constipation Allergies lisinopril Allergy (Verified 06/12/24 11:58) Swelling esomeprazole (From Nexium) Adverse Reaction (Verified 06/12/24 11:58) Nausea/Vom/Diarrhea Have you fallen in the past year?: No Office Procedures Injections Procedure performed by: Walker Cast Lot number: [id number] Senior Economist: [employer] date: 10/01/26 Dose of injection: 1 mL Site of injection: Sub-Q Medication Given: Yes Is this a patient provided medication?: No Office Meds Prolia 60 mg/mL subcutaneous syringe Performing Provider: SADIE Roy Performing Location: [facility] Administered by: Walker Cast RN on 06/24/24 15:41 Dose Route Admin Location Dispensed Lot Number Expiration Date AURORA Schaefr ufacturer 60 mg subcut Right Arm 1 mL [id number] 10/01/26 60344-524-64 AMGEN Assessment and Plan Assessment and Plan Orders: Orders Prolia Injection 06/24/24 M81.0 - Age-related osteoporosis without current pathological fracture Clinical Quality Measures Falls Risk Screening/Assistive Devices Have you fallen in the past year?: No 08/03/24 1259 Date Nola NOEL Cosigner Signature: Date (if applicable) CC: Normal [facility] Colonoscopy Reporton 025 Colonoscopy Report [facility] Medical Records Department [address] [place] [address] Colonoscopy Report MR#: [id number] Acct: [id number] Name: LEONEL ANDRE Rep #: [id number] : 1945 79 From: Krzysztof Arroyo DO PCP: Dr. Femi Baeza MD Status:[facility] Patient Name: Leonel Andre Procedure Date: 06/12/2024 1:06 PM Date of : 1945 Age: 79 Procedure: Colonoscopy Indications: Generalized abdominal pain, Abdominal pain in the left lower quadrant Providers: Krzysztof Arroyo DO Referring MD: Femi Baeza Medicines: Monitored Anesthesia Care Patient Profile: This is a 79 year old female. Refer to note in patient chart for documentation of history and physical. Last Colonoscopy: within the past year. Complications: No immediate complications. Procedure: Pre-Anesthesia Assessment: - Prior to the procedure, a History and Physical was performed, and patient medications and allergies were reviewed. The patient is competent. The risks and benefits of the procedure and the sedation options and risks were discussed with the patient. All questions were answered and informed consent was obtained. Patient identification and proposed procedure were verified by the physician in the pre-procedure area. Mental Status Examination: alert and oriented. Airway Examination: normal oropharyngeal airway and neck mobility. Respiratory Examination: clear to auscultation. CV Examination: normal. Prophylactic Antibiotics: The patient does not require prophylactic antibiotics. Prior Anticoagulants: The patient has taken no anticoagulant or antiplatelet agents except for NSAID medication. ASA Grade Assessment: II - A patient with mild systemic disease. After reviewing the risks and benefits, the patient was deemed in satisfactory condition to undergo the procedure. The anesthesia plan was to use monitored anesthesia care (MAC). Immediately prior to administration of medications, the patient was re-assessed for adequacy to receive sedatives. The heart rate, respiratory rate, oxygen saturations, blood pressure, adequacy of pulmonary ventilation, and response to care were monitored throughout the procedure. The physical status of the patient was re-assessed after the procedure. After I obtained informed consent, the scope was passed under direct vision. Throughout the procedure, the patient's blood pressure, pulse, and oxygen saturations were monitored continuously. The Colonoscope was introduced through the anus and advanced to the cecum, identified by the ileocecal valve. The colonoscopy was performed without difficulty. The patient tolerated the procedure well. The quality of the bowel preparation was poor. The ileocecal valve and the rectum were photographed. Scope In: 1:20:04 PM Scope Withdrawal Time 0 hours 8 minutes 23 seconds Scope Out: 1:35:34 PM Total Procedure Duration Time 0 hours 15 minutes 30 seconds Findings: The perianal and digital rectal examinations were normal. Mild rectal prolapse was present. A 10 mm polyp was found in the rectum. The polyp was sessile. The polyp was removed with a hot snare. Resection and retrieval were complete. Verification of patient identification for the specimen was done. Estimated blood loss was minimal. Stool was found in the entire colon. Impression: - Preparation of the colon was poor. - Rectal prolapse. - One 10 mm polyp in the rectum, removed with a hot snare. Resected and retrieved. - Stool in the entire examined colon. Recommendation: - Discharge patient to home. - Resume previous diet. - Continue present medications. - Await pathology results. - Repeat colonoscopy because the bowel preparation was poor. Procedure Code(s): --- Professional --- 72174, Colonoscopy, flexible; with removal of tumor(s), polyp(s), or other lesion(s) by snare technique CPT copyright 2021 [employer]. All rights reserved. The codes documented in this report are preliminary and upon marketing rotation associate review may be revised to meet current compliance requirements. Krzysztof Arroyo DO 06/12/2024 1:41:44 PM This report has been signed electronically. Number of Addenda: 0 Note Initiated On: 06/12/2024 1:06 PM 06/12/24 1341 Date Krzysztof Arroyo DO Cosigner Signature: Date (if indicated) CC: Dr. Femi Baeza MD; Krzysztof Arroyo DO Date Dictated: 06/12/24 1306 Date Transcribed: Mathematics Faculty Member: CHERELLE Signed [facility] MR/POSTOP.[facility] 06-12-2024 MR/POSTOP.[facility] Medical Records Department [address] [place] [address] Anesthesia Postop Eval I 06/12/24 1346 MR#: [id number] Acct: [id number] Name: LEONEL ANDRE Rep #: [id number] : 1945 79 From: Calos Shaffer PCP: Dr. Femi Baeza MD Status:REG SDC Y Race: C Location: [place] [address] Anesthesia: Postop Eval I Current Vital Signs Temperature: 97.3 F Pulse Rate: 60 Blood Pressure: 113/54 Respiratory Rate: 16 Pulse Ox: 100 Oxygen Delivery Method: Room Air Assessment Airway patent: Yes Spontaneous unlabored respirations: Yes Mental status: Awake and Calm nausea: No Vomiting: No Anesthesia Complication: No Fluid Hydration Crystalloid volume administer (ml): 40 Total IV fluid infused: 40 Progress Note Anesthesia document: Postop Eval 1 completed: Yes 06/12/24 1347 Date Calos Emery Signature: Date CC: Signed Normal [facility] MR/[id number] 06-12-2024 MR/POSTOPAN2 [facility] Medical Records Department [address] [place] [address] Anesthesia Postop Eval II 06/12/24 1355 MR#: [id number] Acct: [id number] Name: LEONEL ANDRE Rep #: [id number] : 1945 79 From: Jed Rubio MD PCP: Dr. Femi Baeza MD Status:REG SDC Y Race: C Location: [place] [address] Anesthesia Postop Eval I Sum Postop Eval Completion status Anesthesia document: Postop Eval 1 completed: Yes Anesthesia Postop Eval I Summary Anesthesia Postop Eval I Summary: Anesthesia Postop Eval I: Assessment Summary Airway patent Yes 06/12/24 13:47 [email or web address] Spontaneous unlabored Yes 06/12/24 13:47 [email or web address] respirations Mental status Awake,Calm 06/12/24 13:47 [email or web address] nausea No 06/12/24 13:47 [email or web address] Vomiting No 06/12/24 13:47 [email or web address] Anesthesia Postop Eval I: Fluid Summary Crystalloid volume administer 40 06/12/24 13:47 [email or web address] (ml) Colloids volume administered ( ml) Blood Product volume administered (ml) Total IV fluid infused 40 06/12/24 13:47 [email or web address] Anesthesia Postop Eval I: Summary Notes Anesthesia Complication No 06/12/24 13:47 [email or web address] Anesthesia Complication Comment: Post-operative progress note Anesthesia: Postop Eval II Evaluation Mental status: Awake Pain Level: 0 nausea: No Vomiting: No 06/12/24 5786 Date Jed Emery Signature: Date CC: Signed Normal [facility] Surgery Specimen Level Simran 06-12-2024 Surgery Specimen Level IV -------- Patient Age/Sex Location Account Attending Physician -------- LEONEL ANDRE 79/F EN [id number] Krzysztof Arroyo DO -------- Specimen: [id number] Received: 06/15/24 Status: SOLOMON Randall Num: [id number] Spec Type: COLON BX Subm Dr: Krzysztof Arroyo, DO HEADER OPERATION: Colonoscopy with polyp PRE-OP DIAGNOSIS: Colonic stricture, GI bleed TISSUE SUBMITTED: A- Rectal polyp -------- MICROSCOPIC DIAGNOSIS A. 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 MICROSCOPIC DESCRIPTION Slides are reviewed. GROSS DESCRIPTION A. Received in formalin in a container labeled with the patient's name, date of , and "rectal polyp" are multiple pereyra-pink fragments of mucosal tissue measuring 1.5 x 0.7 x 0.2 cm in aggregate. Submitted in toto in A1. [facility] 06/22/2024 CPT:67908 -------- Patient Age/Sex Location Account Attending Physician -------- LEONEL ANDRE 79/F GARETH [id number] Krzysztof Arroyo DO -------- Signed (signature on file) Dr. Viry Mauricio MD 06/22/24 1103 -------- Normal [facility] Comment on above: Performed By: #### P SUIV ####[facility] [address] [place], [address] MR/PAT.NATALIEon 06-08-2024 MR/PAT.NATALIE [facility] Medical Records Department [address] [place] [address] PAT - Anesthesia 06/08/24 1155 MR#: [id number] Acct: [id number] Name: LEONEL ANDRE Rep #: [id number] : 1945 79 From: Jed Rubio MD PCP: Dr. Femi Baeza MD [place] [facility] [place] C Location: [place] Pre-Assessment Diagnosis/Proposed Procedure Planned Operative Procedure(s): COLONOSCOPY Anesthesia History Anesthesia History - student counsellor: Anesthesia History - student counsellor Hx Hospitalization No 06/08/24 11:36 Any Problems With Anesthesia No 06/08/24 11:36 Cholinesterase deficiency No 06/08/24 11:36 You/Your Family Experience No 06/08/24 11:36 fever (hyperthermia) with Relationship Recent Exposure to Contagious No 03/30/24 10:46 Disease Does patient have nerve No 06/08/24 11:36 stimulator Patient instructed to have device shut off --Does patient have Pacemaker or ICD? When Was Last Pacemaker Check QUESTION #4 FULL TEXT: You/Your Family Experience fever (hyperthermia) with Anesthesia Last Oral Intake Last Oral intake: Last Oral Intake NPO since Meds taken in AM with sips of water? Meds patient instructed to take am of surgery PONV PONV - student counsellor: PONV - student counsellor Female Yes 06/08/24 11:36 HX of Motion Sickness No 06/08/24 11:36 HX of N/V After Surgery No 06/08/24 11:36 Non-Smoker Yes 06/08/24 11:36 Duration of Surgery greater No 06/08/24 11:36 than 60 minutes Number of Risk Factors 2 06/08/24 11:36 PONV Score Moderate Risk 06/08/24 11:36 Height Weight Height Weight: Anesthesia: Height Weight Height 5 ft 4 in 03/30/24 10:46 Respiratory Assessment Respiratory Assessment - student counsellor: Respiratory Tract Infection Hx - student counsellor Hx Respiratory Tract Infection No 06/08/24 11:36 STOP Sleep Apnea STOP Sleep Apnea - student counsellor: STOP Sleep Apnea - student counsellor Hx Hypertension Yes: CONTROLLED ON MED 06/08/24 11:36 Hx Sleep Apnea No 06/08/24 11:36 CPAP BIPAP Do you snore loudly (louder No 06/08/24 11:36 than talking or can be heard Do you often feel tired/ No 06/08/24 11:36 fatigued/ sleepy during daytime? Has anyone observed you stop No 06/08/24 11:36 breathing during sleep? STOP Results Negative 06/08/24 11:36 QUESTION #5 FULL TEXT : Do you snore loudly (louder than talking or can be heard through closed doors)? Tobacco Use History Tobacco Use History - student counsellor: Tobacco Use History - student counsellor Tobacco Use Non-smoker 08/31/23 13:32 Smoking Status Former smoker 06/08/24 11:36 Hx Tobacco Use No 06/08/24 11:36 Years Smoking Packs Smoked per Day Smoking Cessation Date was No - quit smoking greater 06/08/24 11:36 within the last 15 years than 15 years ago Hx Smoking Cessation Date 09/09/1939 06/08/24 11:36 Hx Smoking Cessation No 06/08/24 11:36 Counseling Hematologic Medial History Hematologic Hx - student counsellor: Hematologic Medical Hx - armature bander Hx of Blood Transfusion Yes 06/08/24 11:36 Hx of Transfusion in last 3 No 06/08/24 11:36 Months Date of Last Transfusion (if within last 3 months) Ever experience any problems No 06/08/24 11:36 with transfusion(s)? Specify any problems Hx of Preganancy in last 3 No 06/08/24 11:36 Months Nurse Filling Out Transfusion VCHRISTIN 06/08/24 11:36 Questions: Date: 06/08/24 06/08/24 11:36 Time: 11:37 06/08/24 11:36 Patient unable to answer at this time (ie. 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 History - student counsellor: /Reproductive Hx- student counsellor Hx Now No 06/08/24 11:36 Gestational Age (in weeks): EDC: Hx Hx Para Hx Section SAB No 06/08/24 11:36 [facility] Medical History (Updated 06/08/24 @ 11:36 by Alyssia Miller) Wears glasses Cancer Anxiety Ambulates with cane History of renal disease Bladder disease History of hiatal hernia Gastric reflux Former smoker Gait disturbance Diverticular disease Primary hyperparathyroidism Sciatica Age related osteoporosis Bowel obstruction Scoliosis Lumbar radiculopathy Hx of renal cell carcinoma Osteoporosis GERD (gastroesophageal reflux disease) Hypoglycemia HTN (hypertension) Bladder prolapse Home Medications ???Medication ???Instructions ???Recorded ???Last Taken ???Type cholecalciferol (vitamin D3) 25 2,000 unit PO DAILY 12/26/15 Unkno wn History mcg (1,000 unit) tablet (Vitamin D3) oxybutynin chloride 5 mg tablet 5 mg PO BID 12/26/15 Unknown Histo ry diltiazem HCl 180 mg capsule, (more content not included)... Normal [facility] Abdomen/Pelvis WITH Contrast on 04-30-2024 Abdomen/Pelvis WITH Contrast [facility] Imaging Services [address] [place] [address] Abdomen/Pelvis WITH Contrast MR#: [id number] Acct: [id number] Name: LEONEL ANDRE Rep #: [id number] : 1945 F 79 From: Armond Lieberman MD PCP: Dr. Femi Baeza MD Status: REG CLI Study: Abdomen/Pelvis WITH Contrast Date of Exam: Exam# [id number] Ordering Dr: Zonia Lawrence PROCEDURE: COMPUTED TOMOGRAPHY OF THE ABDOMEN AND PELVIS WITH CONTRAST REASON FOR EXAM: COLONIC STRICTURE. TECHNIQUE: Contiguous axial scans of mm slice thicknesses. Sagittal and coronal reconstruction images were obtained. One or more dose reduction techniques were used (e.g., automated exposure control, adjustment of mA and/or kv according to patient size, use of iterative reconstruction technique). IV CONTRAST: Isovue-370, 100 mL COMPARISON: CT abdomen and pelvis dated 02/21/2024. FINDINGS: Lung bases: Large paraesophageal hiatal hernia. Liver: Lobulated contour. Gallbladder: Surgically absent. Dilatation of the intrahepatic and extrahepatic bile ducts. The common bile duct measures 1.4 cm in diameter on axial image 44. Dilatation of the proximal pancreatic duct. Spleen: Normal in size. Small subcentimeter hypodensities scattered throughout the spleen. Pancreas: Atrophy of the pancreas Adrenals: Unremarkable. Kidneys: Multiple cystic nodules in the right kidney, largest measuring 1.9 x 1.5 cm, axial image 50. A small ovoid enhancing solid nodule involving the posterolateral aspect of the right kidney measuring 1.1 cm in long axis, axial image 50. Right extrarenal pelvis. Enhancing mass is seen in the right superior pole, axial image 36 measuring 1.9 x 1.7 cm. Enhancing mass measuring 1.3 x 1.0 cm in the left posterior midpole. Bladder: Unremarkable. Reproductive Organs: Calcifications in the left side of the uterus most likely small fibroids. Bowel: Severe fecal retention in the colon. No small bowel obstruction her zones of transition. Appendix: Normal. Lymph nodes: No suspicious lymph node enlargement. Vasculature: Scattered atherosclerotic calcific disease in the aorta. Peritoneum / Retroperitoneum: No ascites. No free air. Bones: Severe scoliosis. Multilevel degenerative disc disease. Multilevel spondylosis. CT/Abdomen/Pelvis WITH Contrast IMPRESSION: 1. Lobulated liver contour can be seen with sclerosis. 2. Biliary ductal dilatation not significantly changed from the previous study. Common bile duct measures 1.4 cm. 3. Status post cholecystectomy. 4. Solid enhancing nodules in the bilateral kidneys. Can not exclude neoplasms. 5. Multiple right renal cystic masses. 6. Small uterine fibroids. 7. Marked colon fecal retention. 8. Nonacute findings detailed above are stable. Reading Location: [place] [address] CC: Dr. Femi Baeza MD; ALBINA Leach Mathematics Faculty Member: Signed Normal [facility] CREATININE FINGERSTICKon CREATININE WB < 1.0 Normal 0.55-1.02 [facility] Comment on above: Performed By: #### L 9100.0200 ####[facility] [address] [place], [address] EGFR WB > 60.0000 Normal >60 [facility] Comment on above: Performed By: #### L 9100.0200 ####[facility] [address] [place], [address] Creatinine measurement at dsideOrdered By: Zoina Lawrence on 04-30-2024 Bedside Creatinine < 1.0 mg/dL 0.55-1.02 [facility] EGFROrdered By: Zonia Paulino asov on 04-30-2024 Bedside Estimated GFR (eGFR) > 60.0000 mL/min >60 [facility] GFR/1.73 sq M.predicted among non-blacks MDRD (S/P/Bld) [Vol rate/Area] mL/min/{1.73_m2} >60 [facility] Gastroenterology Visit Repor ton 04-21-[address] [facility] [address] [place] [address] OFFICE VISIT Date of Service: 04/21/24 MR#: [id number] Acct: [id number] Name: LEONEL ANDRE Rep #: [id number] : 1945 Provider: ALBINA Leach Age/Sex: 79/F Location: [facility] [place] Status: Signed Intake Vital Signs 03/20/24 08:58 03/30/24 10:46 Height 5 ft 4 in 5 ft 4 in Intake Visit Reasons: 1 M FU Chief Complaint: constipation Is patient in pain?: No Allergies lisinopril Allergy (Verified 03/30/24 10:57) Swelling esomeprazole (From Nexium) Adverse Reaction (Verified 03/30/24 10:57) Nausea/Vom/Diarrhea Patient : No Have you fallen in the past year?: Yes Nurse's Note: OV 04.21.24 pt here for f/u and reports no change since her last appt. Pt reports she still feels like she has not had a "complete" BM. Is taking Colace and omeprazole daily. [facility] Medical History Wears glasses Cancer Anxiety Ambulates with cane History of renal disease Bladder disease History of hiatal hernia Gastric reflux Former smoker Gait disturbance Diverticular disease Primary hyperparathyroidism Sciatica Age related osteoporosis Bowel obstruction Scoliosis Lumbar radiculopathy Hx of renal cell carcinoma Osteoporosis GERD (gastroesophageal reflux disease) Hypoglycemia HTN (hypertension) Bladder prolapse Surgical History History of tubal ligation History of cholecystectomy History of knee replacement H/O partial nephrectomy Family History Father Alcoholism Brother Alcoholism Mother Arthritis Hypertension Osteoporosis Social History Smoking Status: Former smoker alcohol intake: never what type of physical activity do you participate in: bicycling HPI HPI Chief Complaint: constipation Details: LEONEL ANDRE, is a 79 F who presents to the office today for f/u. [facility] 02.21.24 w/ watery diarrhea followed by n/v for 24 hours. Work up mostly unremarkable. Suspected viral gastroenteririrs. Discharged after IV fluids and potassium repletion. CT abd/pelvis 02.21.24; 1. Nonspecific fluid-filled small bowel loops and colon without evidence of bowel obstruction could be due to enterocolitis. 2. Persistent complex hypodense lesion in the right kidney slightly larger than the previous examinations could be due to slowly growing tumor. [facility] .; with no bowel movement for 3 weeks and mild intermittent rectal bleeding. KUB 03.16.24; Moderate to large amount of colonic stool and gas. [facility] 03.20.24 with constipation and suspected rectal prolapse per pt. Normal work up. Physical exam with no indication of rectal prolapse. BGI Established 03.25.24 with complaints related to rectal bleeding and possible prolapse *plan for colonoscopy, increase colace Colonoscopy 03.30.24;- Preparation of the colon was poor. - Diverticulosis in the recto-sigmoid colon and in the sigmoid colon. - Stool in the entire examined colon. 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 - No specimens collected. OV 04.21.24 Pt continues to have issues with constipation since her colonoscopy. She has not had a full bm since the colonoscopy. She is passing gas. She started eating a normal diet about 5 days ago. She admits to being afraid of having a bm as this has caused her "prolapse" to fall out and bleed in the past. She denies abd pain, n/v, diarrhea or heartburn. ROS Const Constitutional: Positive for weight change; No fatigue or fever(s) ENT ENT: No difficulty swallowing Cardio Cardiology: Positive for leg pain with exertion Gastro GI: Positive for bloating, constipation, heartburn and excessive flatus; No abdominal pain, belching, change in bowel habits, change in stool character, coffee ground emesis, cramping, diarrhea, difficulty swallowing, feeling full early, incontinent of stools, Vomiting blood/hematemesis, Blood in stool, loose stools, Black,tarry stools, nausea/dyspepsia, pain with swallowing, vomiting or other Musc Musculoskeletal: Positive for abnormal gait, muscle weakness, numbness, stiffness, tingling, Arthritis and leg pain with exertion; No joint pain Skin Skin: Positive for dry skin; No yellowing of the eye or itchy eyes Neuro Neurology: Positive for abnormal gait, numbness and tingling Psych Psychiatric: Positive for anxiety and No depression Endo Endocrine: Positive for weight change; No fatigue Aller/Imm Allergy/Immunologic: No itchy eyes Jonathan/Lymp Hematologic/Lymphatic: No easy bleeding or easy bruising Exam Const General: cooperative and comfortable Nutritional Appearance: average body h (more content not included)... Normal [facility] Colonoscopy Reporton 025 Colonoscopy Report [facility] Medical Records Department [address] [place] [address] Colonoscopy Report MR#: [id number] Acct: [id number] Name: LEONEL ANDRE Rep #: [id number] : 1945 79 From: Krzysztof Friend DO PCP: Dr. Femi Baeza MD Status:REG [facility] [place] Name: Leonel Andre Procedure Date: 03/30/2024 11:50 AM Date of : 1945 Age: 79 Procedure: Colonoscopy Indications: Generalized abdominal pain, Abnormal CT of the GI tract, Incidental constipation noted Providers: Krzysztof Arroyo DO Referring MD: Femi Baeza Medicines: Monitored Anesthesia Care Patient Profile: This is a 79 year old female. Refer to note in patient chart for documentation of history and physical. Last Colonoscopy: date unknown. Unable to locate last colonoscopy report. Complications: No immediate complications. Procedure: Pre-Anesthesia Assessment: - Prior to the procedure, a History and Physical was performed, and patient medications and allergies were reviewed. The patient is competent. The risks and benefits of the procedure and the sedation options and risks were discussed with the patient. All questions were answered and informed consent was obtained. Patient identification and proposed procedure were verified by the physician in the pre-procedure area. Mental Status Examination: alert and oriented. Airway Examination: normal oropharyngeal airway and neck mobility. Respiratory Examination: clear to auscultation. CV Examination: normal. ASA Grade Assessment: II - A patient with mild systemic disease. After reviewing the risks and benefits, the patient was deemed in satisfactory condition to undergo the procedure. The anesthesia plan was to use monitored anesthesia care (MAC). Immediately prior to administration of medications, the patient was re-assessed for adequacy to receive sedatives. The heart rate, respiratory rate, oxygen saturations, blood pressure, adequacy of pulmonary ventilation, and response to care were monitored throughout the procedure. The physical status of the patient was re-assessed after the procedure. After I obtained informed consent, the scope was passed under direct vision. Throughout the procedure, the patient's blood pressure, pulse, and oxygen saturations were monitored continuously. The pediatric colonoscope was introduced through the anus and advanced to the splenic flexure. The colonoscopy was technically difficult and complex due to poor bowel prep with stool present, poor endoscopic visualization and a redundant colon. Successful completion of the procedure was aided by lavage. The patient tolerated the procedure well. The quality of the bowel preparation was poor. Scope In: 12:06:55 PM Scope Out: 12:41:53 PM Total Procedure Duration Time 0 hours 34 minutes 58 seconds Findings: The perianal and digital rectal examinations were normal. Small-mouthed diverticula were found in the recto-sigmoid colon and sigmoid colon. Stool was found in the entire colon. Lavage of the area was performed using copious amounts, resulting in incomplete clearance with continued poor visualization. A severe stenosis was found at the splenic flexure and was non-traversed. Impression: - Preparation of the colon was poor. - Diverticulosis in the recto-sigmoid colon and in the sigmoid colon. - Stool in the entire examined colon. 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 - No specimens collected. Recommendation: - Discharge patient to home. - Full liquid diet. - Continue present medications. - CT scan of the abdomen pelvis with oral and IV contrast and rectal contrast CT regarding colonic stricture - Repeat colonoscopy because the bowel preparation was poor. Procedure Code(s): --- Professional --- 23776, 53, Colonoscopy, flexible; diagnostic, including collection of specimen(s) by brushing or washing, when performed (separate procedure) CPT copyright 2021 [employer]. All rights reserved. The codes documented in this report are preliminary and upon marketing rotation associate review may be revised to meet current compliance requirements. Krzysztof Arroyo DO 03/30/2024 12:55:32 PM This report has been signed electronically. Number of Addenda: 0 Note Initiated On: 03/30/2024 11:50 AM 03/30/24 1255 Date Krzysztof Arroyo DO Cosigner Signature: Date (if indicated) CC: Dr. Femi Baeza MD; Krzysztof Arroyo DO Date Dictated: 03/30/24 1150 Date Transcribed: Mathematics Faculty Member: CHERELLE Signed [facility] MR/POSTOP.Sony 03-30-2024 MR/POSTOP.[facility] Medical Records Department [address] [place] [id number] Anesthesia Postop Eval I 03/30/24 1253 MR#: [id number] Acct: [id number] Name: LEONEL ANDRE Rep #: [id number] : 1945 79 From: Calos Shaffer PCP: Dr. Femi Baeza MD Status:[place] [facility] [place] C Location: [place] [address] Anesthesia: Postop Eval I Current Vital Signs Temperature: 97.5 F Pulse Rate: 62 Blood Pressure: 96/55 Respiratory Rate: 16 Pulse Ox: 97 Oxygen Delivery Method: Room Air Assessment Airway patent: Yes Spontaneous unlabored respirations: Yes Mental status: Awake and Calm nausea: No Vomiting: No Anesthesia Complication: No Fluid Hydration Crystalloid volume administer (ml): 80 Total IV fluid infused: 80 Progress Note Anesthesia document: Postop Eval 1 completed: Yes 03/30/24 1254 Date Calos Emery Signature: Date CC: Signed Normal [facility] MR/[id number] 03-30-2024 [facility] Medical Records Department [address] [place] [address] Anesthesia Postop Eval II 03/30/24 1312 MR#: [id number] Acct: [id number] Name: LEONEL ANDRE Rep #: [id number] : 1945 79 From: Kim Campos MD PCP: Dr. Femi Baeza MD Status:[place] [facility] [place] C Location: [place] [address] Anesthesia Postop Eval I Sum Postop Eval Completion status Anesthesia document: Postop Eval 1 completed: Yes Anesthesia Postop Eval I Summary Anesthesia Postop Eval I Summary: Anesthesia Postop Eval I: Assessment Summary Airway patent Yes 03/30/24 12:54 [email or web address] Spontaneous unlabored Yes 03/30/24 12:54 [email or web address] respirations Mental status Awake,Calm 03/30/24 12:54 [email or web address] nausea No 03/30/24 12:54 [email or web address] Vomiting No 03/30/24 12:54 [email or web address] Anesthesia Postop Eval I: Fluid Summary Crystalloid volume administer 80 03/30/24 12:54 [email or web address] (ml) Colloids volume administered ( ml) Blood Product volume administered (ml) Total IV fluid infused 80 03/30/24 12:54 [email or web address] Anesthesia Postop Eval I: Summary Notes Anesthesia Complication No 03/30/24 12:54 [email or web address] Anesthesia Complication Comment: Post-operative progress note Anesthesia: Postop Eval II Evaluation Mental status: Awake Pain Level: 0 nausea: No Vomiting: No Complications Anesthesia Complication: No 03/30/24 1312 Date Kim Campos MD Cosignjacinta Signature: Date CC: Signed Normal [facility] Gastroenterology Visit Repor ton 03-25-2024 Gastroenterology Visit Report [facility] Gastroenterology [address] [place] [address] OFFICE VISIT Date of Service: 03/25/24 MR#: [id number] Acct: [id number] Name: LEONEL ANDRE Blayne Rep #: [id number] : 1945 Provider: ALBINA Leach Age/Sex: 79/F Location: [facility] [place] Status: Signed Intake Vital Signs 02/21/24 10:22 03/20/24 08:58 Height 5 ft 4 in 5 ft 4 in Intake Visit Reasons: GI Bleed Chief Complaint: rectal bleeding, suspected prolapse Allergies lisinopril Allergy (Verified 03/20/24 08:57) Swelling esomeprazole (From Nexium) Adverse Reaction (Verified 03/20/24 08:57) Nausea/Vom/Diarrhea Patient : No Have you fallen in the past year?: No Nurse's Note: OV 03.25.24 pt here for f/u from ER. Pt reports in 02/2024 she started having abdominal pain, n/v, diarrhea, and constipation. Reports prior hx of EGD and colonoscopy many years ago. Pt reports gal lbladder was removed many years ago. [facility] Medical History Gait disturbance Diverticular disease Primary hyperparathyroidism Sciatica Age related osteoporosis Bowel obstruction Scoliosis Lumbar radiculopathy Hx of renal cell carcinoma Osteoporosis GERD (gastroesophageal reflux disease) Hypoglycemia HTN (hypertension) Bladder prolapse Surgical History History of knee replacement H/O partial nephrectomy Family History Father Alcoholism Brother Alcoholism Mother Arthritis Hypertension Osteoporosis Social History Smoking Status: Former smoker alcohol intake: never what type of physical activity do you participate in: bicycling HPI HPI Chief Complaint: rectal bleeding, suspected prolapse Details: LEONEL ANDRE, is a 79 F who presents to the office today for hospital f/u. [facility] 02.21.24 w/ watery diarrhea followed by n/v for 24 hours. Work up mostly unremarkable. Suspected viral gastroenteririrs. Discharged after IV fluids and potassium repletion. CT abd/pelvis 02.21.24; 1. Nonspecific fluid-filled small bowel loops and colon without evidence of bowel obstruction could be due to enterocolitis. 2. Persistent complex hypodense lesion in the right kidney slightly larger than the previous examinations could be due to slowly growing tumor. [facility] 1.; with no bowel movement for 3 weeks and mild intermittent rectal bleeding. KUB 1..; Moderate to large amount of colonic stool and gas. [facility] . with constipation and suspected rectal prolapse per pt. Normal work up. Physical exam with no indication of rectal prolapse. OV 03.25.24 Pt continues to have issues with constipation. SHe has not had a "full" bm since the end of February 2024. She has abd a total of four episodes bleeding from her rectum with "something falling out". She is able to reduce it back to her rectum. These episodes of bleeding scare her. She has never had anything like this before. At her last ED visit, she was given golytley which she said did not give her a complete bm. She has never had any constipation prior to when this started in February. Last colonoscopy was over [address] Harden at [facility]. She has been afraid to eat to avoid having a bm. ROS Const Constitutional: Positive for fatigue; No fever(s) or weight change ENT ENT: No difficulty swallowing Cardio Cardiology: Positive for leg pain with exertion Gastro GI: Positive for abdominal pain, bloating, change in bowel habits, constipation, diarrhea, heartburn, excessive flatus, nausea/dyspepsia and vomiting; No belching, change in stool character, coffee ground emesis, cramping, difficulty swallowing, feeling full early, incontinent of stools, Vomiting blood/hematemesis, loose stools, Black,tarry stools, pain with swallowing or other Musc Musculoskeletal: Positive for abnormal gait, back pain, numbness, stiffness, tingling, Arthritis, leg pain at night and leg pain with exertion; No joint pain Skin Skin: Positive for dry skin and itchy eyes; No yellowing of the eye Neuro Neurology: Positive for abnormal gait, numbness and tingling Psych Psychiatric: Positive for anxiety and No depression Endo Endocrine: Positive for fatigue; No weight change Aller/Imm Allergy/Immunologic: Positive for itchy eyes Jonathan/Lymp Hematologic/Lymphatic: Positive for easy bruising; No easy bleeding Exam Const General: cooperative and comfortable Nutritional Appearance: average body habitus and well nourished [facility] Head: normal to inspection Ears: hearing grossly normal bilaterally Nose: external nose normal Face and sinus: normal facial exam Mouth: oral mucosae normal Throat: posterior oropharynx nor (more content not included)... Normal [facility] Absolute lymphocyte countOrd ered By: Librado Vasquez on 03-20-2024 Lymphocytes Auto (Unsp spec) [#/Vol] 0.92 10*3/uL 0.83-4.51 [facility] Absolute neutrophil countOrd ered By: Librado Vasquez on 03-20-2024 Neutrophils (Bld) [#/Vol] 5.1 10*3/uL 2.0-7.7 [facility] Automated lymphocyte count a s percentage of total leukocytesOrdered By: Librado Vasquez on 03-20-2024 Lymphocytes/100 WBC Auto (Unsp spec) 13.8 % Low 19-41 [facility] Basic Metabolic Profile (BMP )on 03-20-2024 BUN/CRE 13.4 RATIO Normal 10-20 [facility] Comment on above: Performed By: #### L 500.2500, L100.0100 ####[facility] [address] [place], [address] CA,Total 10.3 mg/dL High 8.5-10.1 [facility] Comment on above: Performed By: #### L 500.2500, L100.0100 ####[facility] [address] [place], [address] Chloride [Moles/Vol] 101 mmol/L Normal 98-107 [facility] Comment on above: Performed By: #### L 500.2500, L100.0100 ####[facility] [address] [place], [address] CO2 [Moles/Vol] 30.0 mmol/L Normal 21.0-32.0 [facility] Comment on above: Performed By: #### L 500.2500, L100.0100 ####[facility] [address] [place], [address] Creatinine [Mass/Vol] 0.75 mg/dL Normal 0.55-1.02 [facility] Comment on above: Result Comment: The validity of the calculated GFR GFRAA in patients over 70 years has not been determined. Clinical correlation is essential. Performed By: #### L 500.2500, L100.0100 ####[facility] [address] [place], [address] ECRCL 50.05 ml/min Normal [facility] Comment on above: Performed By: #### L 500.2500, L100.0100 ####[facility] [address] [place], [address] EST GFR - AA 97 mL/min Normal >60 [facility] Comment on above: Result Comment: Afri can [employer] GFR Calc Performed By: #### L 500.2500, L100.0100 ####[facility] [address] [place], [address] GAP 7 Normal 5-15 [facility] Comment on above: Performed By: #### L 500.2500, L100.0100 ####[facility] [address] [place], [address] GFR/1.73 sq M.predicted among non-blacks MDRD (S/P/Bld) [Vol rate/Area] 80 mL/min/{1.73_m2} Normal >60 [facility] Comment on above: Result Comment: Non- GFR Calc Performed By: #### L 500.2500, L100.0100 ####[facility] [address] [place], [address] Glucose [Mass/Vol] 115 mg/dL High 74-106 [facility] Comment on above: Result Comment: Fast ing Glucose result from 100 to 125 mg/dL suggests IMPAIRED HOMEOSTASIS per A.D.A. criteria. Performed By: #### L 500.2500, L100.0100 ####[facility] [address] [place], [address] Potassium [Moles/Vol] 4.0 mmol/L Normal 3.5-5.1 [facility] Comment on above: Performed By: #### L 500.2500, L100.0100 ####[facility] [address] [place], [address] Sodium [Moles/Vol] 138 mmol/L Normal 136-145 [facility] Comment on above: Performed By: #### L 500.2500, L100.0100 ####[facility] [address] [place], [address] Urea nitrogen [Mass/Vol] 10 mg/dL Normal 7-18 [facility] Comment on above: Performed By: #### L 500.2500, L100.0100 ####[facility] [address] [place], [address] Basophil percentageOrdered B y: Librado Vasquez on 03-20-2024 Basophils/100 WBC (Bld) 0.6 % 0-1 [facility] Blood urea nitrogen (BUN)/cr eatinine ratioOrdered By: Librado Vasquez on 03-20-2024 Urea nitrogen/Creatinine [Mass ratio] 13.4 mg/mg 10-20 [facility] CBC W/Diff, Automatedon 03-04 Absolute Lymph 0.92 X10 3/uL Normal 0.83-4.51 [facility] Comment on above: Performed By: #### L 500.2500, L100.0100 ####[facility] [address] [place], [address] Absolute Neut 5.1 X10 3/uL Normal 2.0-7.7 [facility] Comment on above: Performed By: #### L 500.2500, L100.0100 ####[facility] [address] [place], [address] Basophils/100 WBC (Bld) 0.6 % Normal 0-1 [facility] Comment on above: Performed By: #### L 500.2500, L100.0100 ####[facility] [address] [place], [address] Eosinophils/100 WBC (Bld) 0.1 % Normal 0-5 [facility] Comment on above: Performed By: #### L 500.2500, L100.0100 ####[facility] [address] [place], [address] Erythrocyte distribution width (RBC) [Ratio] 13.3 % Normal 11.6-14.6 [facility] Comment on above: Performed By: #### L 500.2500, L100.0100 ####[facility] [address] [place], [address] Hematocrit (Bld) [Volume fraction] 44.4 % Normal 37-47 [facility] Comment on above: Performed By: #### L 500.2500, L100.0100 ####[facility] [address] [place], [address] Hemoglobin (Bld) [Mass/Vol] 14.4 g/dL Normal 12.0-15.0 [facility] Comment on above: Performed By: #### L 500.2500, L100.0100 ####[facility] [address] [place], [address] IG% 0.300 Normal 0.0-0.9 [facility] Comment on above: Result Comment: IG% - Immature Granulocytes (promyelocytes, myelocytes and metamyelocytes) > 1% indicates that a LEFT SHIFT is Present. Performed By: #### L 500.2500, L100.0100 ####[facility] [address] [place], [address] Lymphocytes/100 WBC (Bld) 13.8 % Low 19-41 [facility] Comment on above: Performed By: #### L 500.2500, L100.0100 ####[facility] [address] [place], [address] MCH (RBC) [Entitic mass] 28.5 pg Normal 27.0-32.0 [facility] Comment on above: Performed By: #### L 500.2500, L100.0100 ####[facility] [address] [place], [address] MCHC (RBC) [Mass/Vol] 32.4 g/dL Normal 32-36 [facility] Comment on above: Performed By: #### L 500.2500, L100.0100 ####[facility] [address] [place], [address] MCV (RBC) [Entitic vol] 87.7 fL Normal 81-99 [facility] Comment on above: Performed By: #### L 500.2500, L100.0100 ####[facility] [address] [place], [address] Monocytes/100 WBC (Bld) 9.1 % Normal 0-10 [facility] Comment on above: Performed By: #### L 500.2500, L100.0100 ####[facility] [address] [place], [address] Neutrophils/100 WBC (Bld) 76.1 % High 47-70 [facility] Comment on above: Performed By: #### L 500.2500, L100.0100 ####[facility] [address] [place], [address] Nucleated RBC (Bld) [#/Vol] 0 10*3/uL Normal 0-5 [facility] Comment on above: Performed By: #### L 500.2500, L100.0100 ####[facility] [address] [place], [address] Platelet mean volume (Bld) [Entitic vol] 9.9 fL Normal 6.2-12.0 [facility] Comment on above: Performed By: #### L 500.2500, L100.0100 ####[facility] [address] [place], [address] Platelets (Bld) [#/Vol] 242 10*3/uL Normal 150-450 [facility] Comment on above: Performed By: #### L 500.2500, L100.0100 ####[facility] [address] [place], [address] RBC (Bld) [#/Vol] 5.06 10*6/uL Normal 4.2-5.4 [facility] Comment on above: Performed By: #### L 500.2500, L100.0100 ####[facility] [address] [place], [address] RDW SD 42.5 fl Normal 35.1-43.9 [facility] Comment on above: Performed By: #### L 500.2500, L100.0100 ####[facility] [address] [place], [address] WBC (Bld) [#/Vol] 6.7 10*3/uL Normal 4.4-11.0 [facility] Comment on above: Performed By: #### L 500.2500, L100.0100 ####[facility] [address] [facility] [place], [address] Carbon dioxide measurementOr dered By: Librado Vasquez on 03-20-2024 CO2 [Moles/Vol] 30.0 mmol/L 21.0-32.0 [facility] Chloride measurementOrdered By: Librado Vasquez on 03-20-2024 Chloride [Moles/Vol] 101 mmol/L 98-107 [facility] Emergency Department Summary on 03-20-2024 Emergency Department Summary [facility] Medical Records Department [address] [facility] [place] [address] Emergency Department Summary 03/20/24 MR#: [id number] Acct: [id number] Name: LEONEL ANDRE Rep #: [id number] : 1945 79 From: Librado Vasquez MD PCP: Dr. Femi Baeza MD Status:REG ER Location: ED HPI HPI - GI History of Present Illness Chief Complaint: GI Bleed Informant: patient Abdominal Pain/Flank Pain Onset: Days Context: Gradual Onset Timing: Intermittent Current Severity: Mild Maximum Severity: Mild Nausea/Vomiting/Emesis GI Symptom: Negative for Nausea or Vomiting Diarrhea/Melena/Hematochezia GI Symptom: Positive for Hematochezia and - (Constipation. Now liquid stools. Intermittent rectal bleeding.); Negative for Diarrhea or Melena Stool Quality: Positive for Loose Severity: Mild Associated Symptoms Associated Symptoms: Negative for Dysuria, Frequency or Hematuria Narrative Narrative: 79-year-old female history of hypertension. Recently seen emergency department for constipation. Recently by her primary care physician was placed on stool softeners. In the emergency department she was seen labs are negative. She was placed on GoLytely. States she had no significant bowel movement for weeks. Thinks she might be having rectal prolapse. She has a history of bladder prolapse. Says she is having intermittent rectal bleeding. She is not on any blood thinners. Prior similar symptoms: Yes Recent Illness/Hospitalization: No PFSH PFSH Medical History Gait disturbance Diverticular disease Primary hyperparathyroidism Sciatica Age related osteoporosis Bowel obstruction Scoliosis Lumbar radiculopathy Hx of renal cell carcinoma Osteoporosis GERD (gastroesophageal reflux disease) Hypoglycemia HTN (hypertension) Bladder prolapse Home Medications ???Medication ???Instructions ???Recorded ???Last Taken ???Type cholecalciferol (vitamin D3) 25 2,000 unit PO DAILY 12/26/15 Unknown History mcg (1,000 unit) tablet (Vitamin D3) losartan 25 mg tablet 25 mg PO DAILY 12/26/15 Unknown History oxybutynin chloride 5 mg tablet 5 mg PO BID 12/26/15 Unknown History diltiazem HCl 180 mg capsule,24 360 mg PO DAILY 09/08/20 Unknown History hr,extended release lorazepam 0.5 mg tablet 0.5 mg PO DAILY 09/08/20 Unknown History acetaminophen 500 mg tablet 500 mg PO Q6H PRN pain 08/23/22 Unknown History (Tylenol Extra Strength) cetirizine 5 mg tablet 5 mg PO DAILY PRN allergy symptoms 08/23/22 Unknown History fluticasone propionate 50 1 spray intranasal DAILY 08/23/22 Unknown History mcg/actuation nasal spray,suspension omeprazole 40 mg capsule,delayed 40 mg PO DAILY 08/23/22 Unknown History release sodium chloride 0.65 % nasal spray 1 spray intranasal ONCE 08/23/22 Unknown History aerosol denosumab 60 mg/mL subcutaneous 60 mg subcut [id number] #1 mL 10/03/22 Unknown Rx syringe (Prolia) Lactobacillus rhamnosus GG 20 1 cell PO DAILY 12/16/23 Unknown History billion cell capsule (Probiotic Digestive Care) hydrocodone-acetaminophen 5-325mg 1 tab PO Q6H PRN PRN Pain 3 days 01/13/24 Unknown Rx 5mg-325mg #10 TABLETS ondansetron 8 mg disintegrating 8 mg PO Q8H PRN nausea and 02/21/24 Unknown Rx tablet vomiting #15 tabs docusate sodium 100 mg capsule 100 mg PO DAILY 03/16/24 Unknown History (Colace) Allergy/AdvReac Type Severity Reaction Status Date / Time lisinopril Allergy Swelling Verified 03/20/24 08:57 esomeprazole (From Nexium) AdvReac Nausea/Vom/ Verified 03/20/24 08:57 Diarrhea Family History Father Alcoholism Brother Alcoholism Mother Arthritis Hypertension Osteoporosis Surgical History History of knee replacement H/O partial nephrectomy Social History Smoking Status: Former smoker alcohol intake: never what type of physical activity do you participate in: bicycling ROS ROS ED ROS Narrative Constipation. Rectal bleeding. Constitutional Constitutional ED: Denies chills or fever(s) ENT ENT ED: Denies ear pain Cardiovascular Cardiovascular: Denies chest pain Respiratory/Chest Respiratory/Chest: Denies cough or dyspnea Gastrointestinal Gastrointestinal: Reports constipation; Denies abdominal pain Genitourinary Genitourinary ED: Denies dysuria or hematuria Musculoskeletal Musculoskeletal: Denies arthralgias Integumentary Denies abscess Neurologic Neurologic: Denies headache(s) Psychiatric Psychiatric: Denies anxiety Endocrine Endocrinology: Denies polydipsia Hematologic/Lymphatic Hematologic/Lymphatic: Denies easy bleeding Allergic/Immunologic Alejandro (more content not included)... Normal [facility] Eosinophil percentageOrdered By: Librado Vasquez on 03-20-2024 Eosinophils/100 WBC (Bld) 0.1 % 0-5 [facility] Erythrocyte distribution wid th ratioOrdered By: Librado Vasquez on 03-20-2024 Erythrocyte distribution width (RBC) [Ratio] 13.3 % 11.6-14.6 [facility] Erythrocyte distribution wid th standard deviationOrdered By: Librado Vasquez on 03-20-2024 Erythrocyte distribution width (RBC) [Entitic vol] 42.5 fL 35.1-43.9 [facility] Erythrocyte distribution width (RBC) [Ratio] 42.5 fl 35.1-43.9 [facility] Estimated glomerular filtrat ion rate (GFR) AmericanOrdered By: Librado Vasquez on 03-20-2024 Estimated GFR (MDRD) Amer 97 mL/min >60 [facility] Comment on above: GFR Calc Estimation of creatinine prabhjot aranceOrdered By: Librado Vasquez on 03-20-2024 Estimated Creatinine Clearance Calc 50.05 ml/min [facility] Glomerular filtration rate ( GFR) estimationOrdered By: Librado Vasquez on 03-20-2024 Estimated GFR (MDRD) Non-Af Amer 80 mL/min >60 [facility] Comment on above: Non- GFR Calc GFR/1.73 sq M.predicted among non-blacks MDRD (S/P/Bld) [Vol rate/Area] 80 mL/min/{1.73_m2} >60 [facility] Comment on above: Non- GFR Calc Glucose measurementOrdered B y: Librado Vasquez on 03-20-2024 Glucose [Mass/Vol] 115 mg/dL High 74-106 [facility] Comment on above: Fasting Glucose resu lt from 100 to 125 mg/dL suggests IMPAIRED HOMEOSTASIS per A.D.A. criteria. Hematocrit Auto (Bld) [Volum e fraction]Ordered By: Librado Vasquez on 03-20-2024 Hematocrit (Bld) [Volume fraction] 44.4 % 37-47 [facility] Hemoglobin measurementOrdere d By: Librado Vasquez on 03-20-2024 Hemoglobin (Bld) [Mass/Vol] 14.4 g/dL 12.0-15.0 [facility] Immature granulocytes/100 WB C Auto (Bld)Ordered By: Librado Vasquez on 03-20-2024 Immature granulocytes/100 WBC (Bld) 0.300 % 0.0-0.9 [facility] Comment on above: IG% - Immature Granu locytes (promyelocytes, myelocytes and metamyelocytes) > 1% indicates that a LEFT SHIFT is Present. Lymphocytes Auto (Unsp spec) [#/Vol]Ordered By: Librado Vasquez on 03-20-2024 Lymphocytes (Bld) [#/Vol] 0.92 10*3/uL 0.83-4.51 [facility] Lymphocytes/100 WBC Auto (Un sp spec)Ordered By: Librado Vasquez on 03-20-2024 Lymphocytes/100 WBC (Bld) 13.8 % Low 19-41 [facility] MCV (mean corpuscular volume ) determinationOrdered By: Librado Vasquez on 03-20-2024 MCV (RBC) [Entitic vol] 87.7 fL 81-99 [facility] Mean corpuscular hemoglobin (MCH) determinationOrdered By: Librado Vasquez on 03-20-2024 MCH (RBC) [Entitic mass] 28.5 pg 27.0-32.0 [facility] Mean corpuscular hemoglobin concentration (MCHC) determinationOrdered By: Librado Vasquez on 03-20-2024 MCHC (RBC) [Mass/Vol] 32.4 g/dL 32-36 [facility] Mean platelet volume determi nationOrdered By: Librado Vasquez on 03-20-2024 Platelet mean volume (Bld) [Entitic vol] 9.9 fL 6.2-12.0 [facility] Monocyte percentageOrdered B y: Librado Vasquez on 03-20-2024 Monocytes/100 WBC (Bld) 9.1 % 0-10 [facility] Neutrophil percentageOrdered By: Librado Vasquez on 03-20-2024 Neutrophils/100 WBC (Bld) 76.1 % High 47-70 [facility] Nucleated red blood cell per centageOrdered By: Librado Vasquez on 03-20-2024 Nucleated RBC/100 WBC (Bld) [Ratio] 0 % 0-5 [facility] Platelet countOrdered By: Manav Vasquez on 03-20-2024 Platelets (Bld) [#/Vol] 242 10*3/uL 150-450 [facility] Potassium measurementOrdered By: Librado Vasquez on 03-20-2024 Potassium [Moles/Vol] 4.0 mmol/L 3.5-5.1 [facility] RBC Auto (Bld) [#/Vol]Ordere d By: Librado Vasquez on 03-20-2024 RBC (Bld) [#/Vol] 5.06 10*6/uL 4.2-5.4 [facility] Serum anion gap measurementO rdered By: Librado Vasquez on 03-20-2024 Anion gap [Moles/Vol] 7 mmol/L 5-15 [facility] Serum or plasma calcium erendira urement (mass/volume)Ordered By: Librado Vasquez on 03-20-2024 Calcium [Mass/Vol] 10.3 mg/dL High 8.5-10.1 [facility] Serum or plasma creatinine m easurement (mass/volume)Ordered By: Librado Vasquez on 03-20-2024 Creatinine [Mass/Vol] 0.75 mg/dL 0.55-1.02 [facility] Comment on above: The validity of the calculated GFR & GFRAA in patients over 70 years has not been determined. Clinical correlation is essential. Serum or plasma urea nitroge n measurement (mass/volume)Ordered By: Librado Vasquez on 03-20-2024 Urea nitrogen [Mass/Vol] 10 mg/dL 7-18 [facility] Sodium levelOrdered By: Librado Vasquez on 03-20-2024 Sodium [Moles/Vol] 138 mmol/L 136-145 [facility] White blood cell (WBC) count Ordered By: Librado Vasquez on 03-20-2024 WBC (Bld) [#/Vol] 6.7 10*3/uL 4.4-11.0 [facility] CNOVon 03-18-2024 CNOV Office Visit (INTMWS ) SOMMERLIZZIELEONEL ([id number]) 1945 F Date Time Provider Department 03/18/24 1:40 PM FEMI BAEZA INTMWS During your visit today, we recorded the following information about you: Temperature Pulse Blood pressure Weight 98.2 degrees 65/minute 131/70 62.5 kg Height 1.676 m Femi Baeza MD 03/18/2024 2:32 PM Signed Leonel Cisneros Jes is a 79 year old female here for a Medicare wellness visit. Medicare Health Risk Assessment General Health Good Exercise: Minutes/Day 10 min Exercise: Days/Week 2 days Alcohol: Daily Use Never Alcohol: Drinks/Day Patient does not drink Alcohol: 6 or more drinks Never Feel off balance Yes Concerns: Teeth/Dentures No Concerns: Sexual function No Troubled by feelings Anxious; Thoughts of hurting myself; Stressed Frequency: Eating healthy diet Nearly every day ADLs requiring help Grocery shopping; Housework; Sitting or standing; Walking Safety precautions in home/vehicle Yes Smoke, vape, chews tobacco No Difficulty hearing Yes Difficulty seeing No Current Providers Specialists: I have reviewed specialist-related care of the patient in the medical record. Current care team: Patient Care Team: Femi Baeza MD as PCP - General Xuan Brandon APRN.SNUFF MAKER as Research Test Engine Operator (Internal Medicine) Outside specialists seen: Zach Negro MD (Urology) César Johnson MD (Endocrinology) Naawf Collins MD (ENT) Taiwo Weeks MD (Ophthalmology) Delmy Arroyo MD (Gastroenterology). Medical/Family history review Reviewed and updated problem list, medical/surgical/family/soci al history, medications, and allergies. Opioid use review Opioid Medications (last 90 days) No data to display Anxiety/Depression screening Recommendation: no further intervention at this time Cognitive screening Mini Cog Score: 5 Cognitive screening reviewed and No further action needed (score 3-5). Functional Observation Was the patient's Timed Up AND Go test unsteady or >= 12 seconds? No Advance Care Planning Surrogate decision maker and/or advance care plan documented Measurements BP 131/70 (BP Site: Left Arm, BP Position: Sitting, BP Cuff Size: Large Adult) Pulse 65 Temp 36.8 ?C (98.2 ?F) (Temporal) Ht 167.6 cm (5' 6") Wt 62.5 kg (137 lb 12.6 oz) BMI 22.24 kg/m? Vision Screening: Follows with optometry/ophthalmology Right: 20/25 Left: 20/ 40 Both: 20/25 Assessment/Plan Medicare annual wellness visit, subsequent (Z00.00) - Counseled on healthy diet and regular exercise - Fall avoidance information provided - Personalized prevention plan provided - Vaccines reviewed. Femi Baeza MD 03/18/2024 2:32 PM Signed This note was created using [employer] Subjective Leonel Andre is a 79 year old female. She was scheduled to see GI for constipation. She was prescribed Constulose as needed. Her hypertension was not at goal. Hip and low back pain were stable, but limiting her ambulation. She felt better using a walker tried during physical therapy. She requested a prescription. She started having a cold and cough 5 days ago, productive of some phlegm. No fever or chills was noted. Review of Systems Constitutional: Negative for fatigue and fever. HENT: Positive for congestion. Negative for ear pain and sore throat. Respiratory: Negative for shortness of breath and wheezing. Cardiovascular: Negative for chest pain, palpitations and leg swelling. Gastrointestinal: Positive for constipation. Genitourinary: Negative for difficulty urinating. Neurological: Negative for dizziness and headaches. ACTIVE PROBLEM LIST Essential Hypertension Esophageal Reflux Vitamin D Deficiency Constipation Scoliosis Urge Incontinence History of Renal Cell Carcinoma Osteoporosis Anxiety Pain in Right Hip Radiculopathy, Lumbar Region Mass of Right Kidney Social History Tobacco Use Smoking status: Former Current packs/day: 0.00 Average packs/day: 1 pack/day for 23.0 years (23.0 ttl pk-yrs) Types: Cigarettes Start date: 03/04/1956 Quit date: 03/04/1979 Years since quittin.0 Smokeless tobacco: Never Vaping Use Vaping status: Never Used Substance Use Topics Alcohol use: No Drug use: No Current Outpatient Medications Medication Sig docusate sodium (COLACE) 100 mg capsule Take 1 capsule by mouth two times a day. oxybutynin (DITROPAN) 5 mg tablet Take 1 tablet by mouth two times a day. omeprazole (PRILOSEC) 40 mg capsule Take 1 capsule by mouth once daily. LORazepam (ATIVAN) 0.5 mg Take 1 tablet by mouth once daily as needed (anxiety) for up to 90 days. 3 months supply. dilTIAZem CR (TAZTIA XT) 180 mg 24 hr capsule Take 2 capsules by mouth once daily. Patient should start on November 03, 2023. losartan (COZAAR) 25 mg tablet Take 1 tablet by mouth two times a day. Cholecalciferol, (more content not included)... Normal [facility] Abdomen Single Viewon 2024 Abdomen Single View [facility] [address] [place], [place] [address] Abdomen Single View MR#: [id number] Acct: [id number] Name: LEONEL ANDRE Rep #: [id number] : 1945 F 79 From: William neumann DO PCP: Dr. Femi Baeza MD Status: PRE ER Study: Abdomen Single View Date of Exam: 03/16/24 Exam# [id number] Ordering Dr: Librado Vasquez MD :[id number] EXAM: XR ABDOMEN, 1 VIEW CLINICAL INDICATION: constipation TECHNIQUE: Frontal supine view of the abdomen/pelvis. This report was created using [employer] report generation technology. COMPARISON: CT abdomen and pelvis, 11/22/2023 FINDINGS: GASTROINTESTINAL TRACT: Moderate to large amount of colonic stool and gas. ORGANS: Normal as visualized. No organomegaly. No abnormal calcifications. BONES/JOINTS: Severe degenerative changes in the spine and apex left scoliosis of the lumbar spine. SOFT TISSUES: No acute pathology. RAD/Abdomen Single View IMPRESSION: Moderate to large amount of colonic stool and gas. Electronically Signed: William Wellington DO at 22:21 EST , CC: Dr. Librado Vasquez MD; Dr. Femi Baeza MD Mathematics Faculty Member: Signed Normal [facility] Absolute neutrophil countOrd ered By: Librado Vasquez on 03-16-2024 Neutrophils (Bld) [#/Vol] 6.8 10*3/uL 2.0-7.7 [facility] Basic Metabolic Profile (BMP )on 03-16-2024 BUN/CRE 19.1 RATIO Normal 10-20 [facility] Comment on above: Performed By: #### L 500.2500, L100.0100 #### [facility] Laboratory [address] [place], [address] CA,Total 10.1 mg/dL Normal 8.5-10.1 [facility] Comment on above: Performed By: #### L 500.2500, L100.0100 #### [facility] Laboratory [address] [place], [address] Chloride [Moles/Vol] 102 mmol/L Normal 98-107 [facility] Comment on above: Performed By: #### L 500.2500, L100.0100 #### [facility] [address] [place], [address] CO2 [Moles/Vol] 27.0 mmol/L Normal 21.0-32.0 [facility] Comment on above: Performed By: #### L 500.2500, L100.0100 #### [facility] [address] [place], [address] Creatinine [Mass/Vol] 0.68 mg/dL Normal 0.55-1.02 [facility] Comment on above: Result Comment: The validity of the calculated GFR GFRAA in patients over 70 years has not been determined. Clinical correlation is essential. Performed By: #### L 500.2500, L100.0100 #### [facility] [address] [place], [address] ECRCL 50.05 ml/min Normal [facility] Comment on above: Performed By: #### L 500.2500, L100.0100 #### [facility] [address] [place], [address] EST GFR - AA 108 mL/min Normal >60 [facility] Comment on above: Result Comment: Afri can Tajik GFR Calc Performed By: #### L 500.2500, L100.0100 #### [facility] [address] [place], [address] GAP 5 Normal 5-15 [facility] Comment on above: Performed By: #### L 500.2500, L100.0100 #### [facility] [address] [place], [address] GFR/1.73 sq M.predicted among non-blacks MDRD (S/P/Bld) [Vol rate/Area] 89 mL/min/{1.73_m2} Normal >60 [facility] Comment on above: Result Comment: Non- GFR Calc Performed By: #### L 500.2500, L100.0100 #### [facility] [address] [place], [address] Glucose [Mass/Vol] 115 mg/dL High 74-106 [facility] Comment on above: Result Comment: Fast ing Glucose result from 100 to 125 mg/dL suggests IMPAIRED HOMEOSTASIS per A.D.A. criteria. Performed By: #### L 500.2500, L100.0100 #### [facility] [address] [place], [address] Potassium [Moles/Vol] 4.2 mmol/L Normal 3.5-5.1 [facility] Comment on above: Performed By: #### L 500.2500, L100.0100 #### [facility] [address] [place], [address] Sodium [Moles/Vol] 134 mmol/L Low 136-145 [facility] Comment on above: Performed By: #### L 500.2500, L100.0100 #### [facility] [address] [place], [address] Urea nitrogen [Mass/Vol] 13 mg/dL Normal 7-18 [facility] Comment on above: Performed By: #### L 500.2500, L100.0100 #### [facility] [address] [place], [address] Basophil percentageOrdered B y: Librado Vasquez on 03-16-2024 Basophils/100 WBC (Bld) 0.5 % 0- [facility] Blood urea nitrogen (BUN)/cr eatinine ratioOrdered By: Librado Vasquez on 03-16-2024 Urea nitrogen/Creatinine [Mass ratio] 19.1 mg/mg - [facility] CBC W/Diff, Automatedon 03-04 Absolute Lymph 0.99 X10 3/uL Normal 0.83-4.51 [facility] Comment on above: Performed By: #### L 500.2500, L100.0100 #### [facility] [address] [place], [address] Absolute Neut 6.8 X10 3/uL Normal 2.0-7.7 [facility] Comment on above: Performed By: #### L 500.2500, L100.0100 #### [facility] [address] [place], [address] Basophils/100 WBC (Bld) 0.5 % Normal 0-1 [facility] Comment on above: Performed By: #### L 500.2500, L100.0100 #### [facility] [address] [place], [address] Eosinophils/100 WBC (Bld) 0.1 % Normal 0-5 [facility] Comment on above: Performed By: #### L 500.2500, L100.0100 #### [facility] [address] [place], [address] Erythrocyte distribution width (RBC) [Ratio] 13.3 % Normal 11.6-14.6 [facility] Comment on above: Performed By: #### L 500.2500, L100.0100 #### [facility] [address] [place], [address] Hematocrit (Bld) [Volume fraction] 40.1 % Normal 37-47 [facility] Comment on above: Performed By: #### L 500.2500, L100.0100 #### [facility] [address] [place], [address] Hemoglobin (Bld) [Mass/Vol] 13.3 g/dL Normal 12.0-15.0 [facility] Comment on above: Performed By: #### L 500.2500, L100.0100 #### [facility] [address] [place], [address] IG% 0.400 Normal 0.0-0.9 [facility] Comment on above: Result Comment: IG% - Immature Granulocytes (promyelocytes, myelocytes and metamyelocytes) > 1% indicates that a LEFT SHIFT is Present. Performed By: #### L 500.2500, L100.0100 #### [facility] [address] [place], [address] Lymphocytes/100 WBC (Bld) 11.6 % Low 19-41 [facility] Comment on above: Performed By: #### L 500.2500, L100.0100 #### [facility] [address] [place], [address] MCH (RBC) [Entitic mass] 28.9 pg Normal 27.0-32.0 [facility] Comment on above: Performed By: #### L 500.2500, L100.0100 #### [facility] [address] [place], [address] MCHC (RBC) [Mass/Vol] 33.2 g/dL Normal 32-36 [facility] Comment on above: Performed By: #### L 500.2500, L100.0100 #### [facility] [address] [place], [address] MCV (RBC) [Entitic vol] 87.2 fL Normal 81-99 [facility] Comment on above: Performed By: #### L 500.2500, L100.0100 #### [facility] [address] [place], [address] Monocytes/100 WBC (Bld) 8.2 % Normal 0-10 [facility] Comment on above: Performed By: #### L 500.2500, L100.0100 #### [facility] [address] [place], [address] Neutrophils/100 WBC (Bld) 79.2 % High 47-70 [facility] Comment on above: Performed By: #### L 500.2500, L100.0100 #### [facility] [address] [place], [address] Nucleated RBC (Bld) [#/Vol] 0 10*3/uL Normal 0-5 [facility] Comment on above: Performed By: #### L 500.2500, L100.0100 #### [facility] [address] [place], [address] Platelet mean volume (Bld) [Entitic vol] 10.0 fL Normal 6.2-12.0 [facility] Comment on above: Performed By: #### L 500.2500, L100.0100 #### [facility] [address] [place], [address] Platelets (Bld) [#/Vol] 211 10*3/uL Normal 150-450 [facility] Comment on above: Performed By: #### L 500.2500, L100.0100 #### [facility] [address] [place], [address] RBC (Bld) [#/Vol] 4.60 10*6/uL Normal 4.2-5.4 [facility] Comment on above: Performed By: #### L 500.2500, L100.0100 #### [facility] [address] [place], [address] RDW SD 41.6 fl Normal 35.1-43.9 [facility] Comment on above: Performed By: #### L 500.2500, L100.0100 #### [facility] [address] [place], [address] WBC (Bld) [#/Vol] 8.5 10*3/uL Normal 4.4-11.0 [facility] Comment on above: Performed By: #### L 500.2500, L100.0100 #### [facility] [address] [place], [address] Carbon dioxide measurementOr dered By: Librado Vasquez on 03-16-2024 CO2 [Moles/Vol] 27.0 mmol/L 21.0-32.0 [facility] Chloride measurementOrdered By: Librado Vasquez on 03-16-2024 Chloride [Moles/Vol] 102 mmol/L 98-107 [facility] Emergency Department Summary on 03-16-2024 Emergency Department Summary [facility] Medical Records Department [address] [place] [address] Emergency Department Summary 03/16/24 MR#: [id number] Acct: [id number] Name: LEONEL ANDRE Rep #: [id number] : 1945 79 From: Librado Vasquez MD PCP: Dr. Femi Baeza MD Status:REG ER Location: ED HPI HPI - GI History of Present Illness Chief Complaint: Constipation Detail of Chief Complaint: Constipation for 3 weeks. Mild rectal bleeding. Informant: patient Abdominal Pain/Flank Pain Onset: - (No abdominal pain.) Nausea/Vomiting/Emesis GI Symptom: Positive for Nausea, Vomiting and - (Since resolved.) Diarrhea/Melena/Hematochezia GI Symptom: Positive for Hematochezia; Negative for Diarrhea or Melena Onset: Today Severity: Mild Associated Symptoms Associated Symptoms: Negative for Dysuria, Frequency or Hematuria Narrative Narrative: 79-year-old female history of hypertension and suspected rectal prolapse. Was seen in emergency department 1220 at that time his nausea and vomiting had hypokalemia. She had a CAT scan at that time that was unremarkable and possible colitis. States she has not had a bowel movement for 3 weeks. She has had intermittent mild rectal bleeding. Ambulation may have a rectal prolapse. Prior similar symptoms: Yes Recent Illness/Hospitalization: No PFSH PFSH Medical History Gait disturbance Diverticular disease Primary hyperparathyroidism Sciatica Age related osteoporosis Bowel obstruction Scoliosis Lumbar radiculopathy Hx of renal cell carcinoma Osteoporosis GERD (gastroesophageal reflux disease) Hypoglycemia HTN (hypertension) Bladder prolapse Home Medications ???Medication ???Instructions ???Recorded ???Last Taken ???Type cholecalciferol (vitamin D3) 25 2,000 unit PO DAILY 12/26/15 Unknown History mcg (1,000 unit) tablet (Vitamin D3) losartan 25 mg tablet 25 mg PO DAILY 12/26/15 Unknown History oxybutynin chloride 5 mg tablet 5 mg PO BID 12/26/15 Unknown History diltiazem HCl 180 mg capsule,24 360 mg PO DAILY 09/08/20 Unknown History hr,extended release lorazepam 0.5 mg tablet 0.5 mg PO DAILY 09/08/20 Unknown History acetaminophen 500 mg tablet 500 mg PO Q6H PRN pain 08/23/22 Unknown History (Tylenol Extra Strength) cetirizine 5 mg tablet 5 mg PO DAILY PRN allergy symptoms 08/23/22 Unknown History fluticasone propionate 50 1 spray intranasal DAILY 08/23/22 Unknown History mcg/actuation nasal spray,suspension omeprazole 40 mg capsule,delayed 40 mg PO DAILY 08/23/22 Unknown History release sodium chloride 0.65 % nasal spray 1 spray intranasal ONCE 08/23/22 Unknown History aerosol denosumab 60 mg/mL subcutaneous 60 mg subcut [id number] #1 mL 10/03/22 Unknown Rx syringe (Prolia) Lactobacillus rhamnosus GG 20 1 cell PO DAILY 12/16/23 Unknown History billion cell capsule (Probiotic Digestive Care) hydrocodone-acetaminophen 5-325mg 1 tab PO Q6H PRN PRN Pain 3 days 01/13/24 Unknown Rx 5mg-325mg #10 TABLETS ondansetron 8 mg disintegrating 8 mg PO Q8H PRN nausea and 02/21/24 Unknown Rx tablet vomiting #15 tabs docusate sodium 100 mg capsule 100 mg PO DAILY 03/16/24 Unknown History (Colace) Allergy/AdvReac Type Severity Reaction Status Date / Time lisinopril Allergy Swelling Verified 03/16/24 20:50 esomeprazole (From Nexium) AdvReac Nausea/Vom/ Verified 03/16/24 20:50 Diarrhea Family History Father Alcoholism Brother Alcoholism Mother Arthritis Hypertension Osteoporosis Surgical History History of knee replacement H/O partial nephrectomy Social History Smoking Status: Former smoker alcohol intake: never what type of physical activity do you participate in: bicycling ROS ROS ED ROS Narrative Constipation. Rectal bleeding. Constitutional Constitutional ED: Denies chills or fever(s) ENT ENT ED: Denies ear pain Cardiovascular Cardiovascular: Denies chest pain Respiratory/Chest Respiratory/Chest: Reports cough; Denies dyspnea or dyspnea on exertion Gastrointestinal Gastrointestinal: Reports constipation; Denies abdominal pain, diarrhea or melena Genitourinary Genitourinary ED: Denies dysuria or hematuria Musculoskeletal Musculoskeletal: Denies arthralgias Integumentary Denies abscess Neurologic Neurologic: Denies headache(s) Psychiatric Psychiatric: Denies anxiety Endocrine Endocrinology: Denies polydipsia Hematologic/Lymphatic Hematologic/Lymphatic: Denies easy bleeding Allergic/Immunologic Allergic/Immunologic ED: Denies mouth swelling EXAM Physical Exam Narrative Exam Narrative: 79-year-old female n (more content not included)... Normal [facility] Eosinophil percentageOrdered By: Librado Vasquez on 03-16-2024 Eosinophils/100 WBC (Bld) 0.1 % 0-5 [facility] Erythrocyte distribution wid th ratioOrdered By: Librado Vasquez on 03-16-2024 Erythrocyte distribution width (RBC) [Ratio] 13.3 % 11.6-14.6 [facility] Erythrocyte distribution wid th standard deviationOrdered By: Librado Vasquez on 03-16-2024 Erythrocyte distribution width (RBC) [Entitic vol] 41.6 fL 35.1-43.9 [facility] Estimated glomerular filtrat ion rate (GFR) AmericanOrdered By: Librado Vasquez on 03-16-2024 Estimated GFR (MDRD) Amer 108 mL/min >60 [facility] Comment on above: GFR Calc Estimation of creatinine prabhjot aranceOrdered By: Librado Vasquez on 03-16-2024 Estimated Creatinine Clearance Calc 50.05 ml/min [facility] Glomerular filtration rate ( GFR) estimationOrdered By: Librado Vasquez on 03-16-2024 Estimated GFR (MDRD) Non-Af Amer 89 mL/min >60 [facility] Comment on above: Non- GFR Calc Glucose measurementOrdered B y: Librado Vasquez on 03-16-2024 Glucose [Mass/Vol] 115 mg/dL High 74-106 [facility] Comment on above: Fasting Glucose resu lt from 100 to 125 mg/dL suggests IMPAIRED HOMEOSTASIS per A.D.A. criteria. Hematocrit Auto (Bld) [Volum e fraction]Ordered By: Librado Vasquez on 03-16-2024 Hematocrit (Bld) [Volume fraction] 40.1 % 37-47 [facility] Hemoglobin measurementOrdere d By: Librado Vasquez on 03-16-2024 Hemoglobin (Bld) [Mass/Vol] 13.3 g/dL 12.0-15.0 [facility] Immature granulocytes/100 WB C Auto (Bld)Ordered By: Librado Vasquez on 03-16-2024 Immature granulocytes/100 WBC (Bld) 0.400 % 0.0-0.9 [facility] Comment on above: IG% - Immature Granu locytes (promyelocytes, myelocytes and metamyelocytes) > 1% indicates that a LEFT SHIFT is Present. Lymphocytes Auto (Unsp spec) [#/Vol]Ordered By: Librado Vasquez on 03-16-2024 Lymphocytes (Bld) [#/Vol] 0.99 10*3/uL 0.83-4.51 [facility] Lymphocytes/100 WBC Auto (Un sp spec)Ordered By: Librado Vasquez on 03-16-2024 Lymphocytes/100 WBC (Bld) 11.6 % Low 19-41 [facility] MCV (mean corpuscular volume ) determinationOrdered By: Librado Vasquez on 03-16-2024 MCV (RBC) [Entitic vol] 87.2 fL 81-99 [facility] Mean corpuscular hemoglobin (MCH) determinationOrdered By: Librado Vasquez on 03-16-2024 MCH (RBC) [Entitic mass] 28.9 pg 27.0-32.0 [facility] Mean corpuscular hemoglobin concentration (MCHC) determinationOrdered By: Librado Vasquez on 03-16-2024 MCHC (RBC) [Mass/Vol] 33.2 g/dL 32-36 [facility] Mean platelet volume determi nationOrdered By: Librado Vasquez on 03-16-2024 Platelet mean volume (Bld) [Entitic vol] 10.0 fL 6.2-12.0 [facility] Monocyte percentageOrdered B y: Librado Vasquez on 03-16-2024 Monocytes/100 WBC (Bld) 8.2 % 0-10 [facility] Neutrophil percentageOrdered By: Librado Vasquez on 03-16-2024 Neutrophils/100 WBC (Bld) 79.2 % High 47-70 [facility] Nucleated red blood cell per centageOrdered By: Librado Vasquez on 03-16-2024 Nucleated RBC/100 WBC (Bld) [Ratio] 0 % 0-5 [facility] Platelet countOrdered By: Manav Vasquez on 03-16-2024 Platelets (Bld) [#/Vol] 211 10*3/uL 150-450 [facility] Potassium measurementOrdered By: Librado Vasquez on 03-16-2024 Potassium [Moles/Vol] 4.2 mmol/L 3.5-5.1 [facility] RBC Auto (Bld) [#/Vol]Ordere d By: Librado Vasquez on 03-16-2024 RBC (Bld) [#/Vol] 4.60 10*6/uL 4.2-5.4 [facility] Serum anion gap measurementO rdered By: Librado Vasquez on 03-16-2024 Anion gap [Moles/Vol] 5 mmol/L 5-15 [facility] Serum or plasma calcium erendira urement (mass/volume)Ordered By: Librado Vasquez on 03-16-2024 Calcium [Mass/Vol] 10.1 mg/dL 8.5-10.1 [facility] Serum or plasma creatinine m easurement (mass/volume)Ordered By: Librado Vasquez on 03-16-2024 Creatinine [Mass/Vol] 0.68 mg/dL 0.55-1.02 [facility] Comment on above: The validity of the calculated GFR & GFRAA in patients over 70 years has not been determined. Clinical correlation is essential. Serum or plasma urea nitroge n measurement (mass/volume)Ordered By: Librado Vasquez on 03-16-2024 Urea nitrogen [Mass/Vol] 13 mg/dL 7-18 [facility] Sodium levelOrdered By: Librado Vasquez on 03-16-2024 Sodium [Moles/Vol] 134 mmol/L Low 136-145 [facility] White blood cell (WBC) count Ordered By: Librado Vasquez on 03-16-2024 WBC (Bld) [#/Vol] 8.5 10*3/uL 4.4-11.0 [facility] CBC panel Auto (Bld)on 03-02 Erythrocyte distribution width (RBC) [Ratio] 13.0 % Normal 11.5-15.0 [facility] Comment on above: Order Comment: Speci men Type: BLOOD SPECIMENOrdering Facility: [facility] Address: [address] [place] [address] Performed By: #### 6 30-4 #### [facility] CLIA [id number] [address] [place] [address] [place] Hematocrit (Bld) [Volume fraction] 42.1 % Normal 36.0-46.0 [facility] Comment on above: Order Comment: Speci men Type: BLOOD SPECIMENOrdering Facility: [facility] Address: [address] [place] [address] Performed By: #### 6 30-4 #### [facility] CLIA [id number] [address] [place] [address] [place] Hemoglobin (Bld) [Mass/Vol] 13.2 g/dL Normal 11.5-15.5 [facility] Comment on above: Order Comment: Speci men Type: BLOOD SPECIMENOrdering Facility: [facility] Address: [address] [place] [address] Performed By: #### 6 30-4 #### [facility] CLIA [id number] [address] [place] [address] [place] MCH (RBC) [Entitic mass] 28.3 pg Normal 26.0-34.0 [facility] Comment on above: Order Comment: Speci men Type: BLOOD SPECIMENOrdering Facility: [facility] Address: [address] [place] [address] Performed By: #### 6 30-4 #### [facility] CLIA [id number] [address] [place] [address] [place] MCHC (RBC) [Mass/Vol] 31.4 g/dL Normal 30.5-36.0 [facility] Comment on above: Order Comment: Speci men Type: BLOOD SPECIMENOrdering Facility: [facility] Address: [address] [place] [address] Performed By: #### 6 30-4 #### [facility] CLIA [id number] [address] [place] [address] [place] MCV (RBC) [Entitic vol] 90.3 fL Normal 80.0-100.0 [facility] Comment on above: Order Comment: Speci men Type: BLOOD SPECIMENOrdering Facility: [facility] Address: [address] [place] [address] Performed By: #### 6 30-4 #### [facility] CLIA [id number] [address] [place] [address] [place] Nucleated RBC (Bld) [#/Vol] 10*3/uL Normal <0.01 [facility] Comment on above: Order Comment: Speci men Type: BLOOD SPECIMENOrdering Facility: [facility] Address: [address] [place] [address] Performed By: #### 6 30-4 #### [facility] CLIA [id number] [address] [place] [address] [place] Platelet mean volume (Bld) [Entitic vol] 10.6 fL Normal 9.0-12.7 [facility] Comment on above: Order Comment: Speci men Type: BLOOD SPECIMENOrdering Facility: [facility] Address: [address] [place] [address] Performed By: #### 6 30-4 #### [facility] CLIA [id number] [address] [place] [address] [place] Platelets (Bld) [#/Vol] 281 10*3/uL Normal 150-400 [facility] Comment on above: Order Comment: Speci men Type: BLOOD SPECIMENOrdering Facility: [facility] Address: [address] [place] [address] Performed By: #### 6 30-4 #### [facility] CLIA [id number] [address] [place] [address] [place] RBC (Bld) [#/Vol] 4.66 10*6/uL Normal 3.90-5.20 [facility] Comment on above: Order Comment: Speci men Type: BLOOD SPECIMENOrdering Facility: [facility] Address: [address] [place] [address] Performed By: #### 6 30-4 #### [facility] CLIA [id number] [address] [place] [address] [place] WBC (Bld) [#/Vol] 8.09 10*3/uL Normal 3.70-11.00 [facility] Comment on above: Order Comment: Speci men Type: BLOOD SPECIMENOrdering Facility: [facility] Address: [address] [place] [address] Performed By: #### 6 30-4 #### [facility] CLIA [id number] [address] [place] [address] OF [facility] CNOVon 03-02-2024 CNOV Office Visit (INTMWS ) LEONEL ANDRE ([id number]) 1945 F Date Time Provider Department 03/02/24 4:20 PM FEMI BAEZA INTMWS During your visit today, we recorded the following information about you: Temperature Pulse Respiration Blood pressure 98.6 degrees 76/minute 16/minute 142/70 Weight 61.8 kg Femi Baeza MD 03/02/2024 4:58 PM Signed This note was created using NoteWriter. Subjective Patient presents with: ER F/U Leonel Andre is a 79 year old female. She was seen in the ER twice initially for gastroenteritis then later the same day for GI bleeding after straining. She felt something prolapse. Her nausea, vomiting, and diarrhea resolved. GI bleeding resolved after Pepto Bismol. She was now constipated and had no bowel movements for [address] of the abdomen and pelvis was non specific. There was mention of increased mass of the right kidney which we reviewed, and is monitored by urology. Review of Systems Constitutional: Positive for fatigue. Negative for appetite change, chills, fever and unexpected weight change. HENT: Negative. Respiratory: Negative for shortness of breath. Cardiovascular: Negative for chest pain. Gastrointestinal: Negative for abdominal distention, abdominal pain, blood in stool, diarrhea, nausea and vomiting. Genitourinary: Negative for difficulty urinating and hematuria. ACTIVE PROBLEM LIST Essential Hypertension Esophageal Reflux Vitamin D Deficiency Constipation Scoliosis Urge Incontinence History of Renal Cell Carcinoma Osteoporosis Anxiety Pain in Right Hip Radiculopathy, Lumbar Region Mass of Right Kidney Current Outpatient Medications Medication Sig oxybutynin (DITROPAN) 5 mg tablet Take 1 tablet by mouth two times a day. omeprazole (PRILOSEC) 40 mg capsule Take 1 capsule by mouth once daily. LORazepam (ATIVAN) 0.5 mg Take 1 tablet by mouth once daily as needed (anxiety) for up to 90 days. 3 months supply. dilTIAZem CR (TAZTIA XT) 180 mg 24 hr capsule Take 2 capsules by mouth once daily. Patient should start on November 03, 2023. losartan (COZAAR) 25 mg tablet Take 1 tablet by mouth two times a day. Cholecalciferol, Vitamin D3, 50 mcg (2,000 unit) cap Take 1 capsule by mouth once daily. Prescribed by endocrinology (Dr. César Johnson) denosumab (PROLIA) 60 mg/mL Once every 6 months. Prescribed by endocrinology (Dr. César Johnson) Dextrin (EASY FIBER) 3 gram/3.5 gram powd Take 3 g by mouth once daily. Mixed with water. Sennosides (SENOKOT EXTRA STRENGTH) 17.2 mg tab Take 1 tablet by mouth daily with lunch AND 2 tablets daily at bedtime. lactobacillus comb no.10 (PROBIOTIC) 20 billion cell cap Take 1 capsule by mouth daily at bedtime. fexofenadine (MUCINEX ALLERGY) 180 mg tablet Take 180 mg by mouth once daily. fluticasone (FLONASE) 50 mcg/actuation nasal spray Use 2 Sprays in each nostril once daily. Rinse mouth after use. ACETAMINOPHEN (TYLENOL ARTHRITIS ORAL) Take by mouth. docusate sodium (COLACE) 100 mg capsule Take 1 capsule by mouth two times a day. No current facility-administered medications for this visit. Objective BP 142/70 (BP Site: Left Arm, BP Position: Sitting, BP Cuff Size: Large Adult) Pulse 76 Temp 37 ?C (98.6 ?F) (Temporal) Resp 16 Wt 61.8 kg (136 lb 3.9 oz) BMI 23.39 kg/m? Physical Exam Constitutional: General: She is not in acute distress. Appearance: She is not ill-appearing or diaphoretic. HENT: Mouth/Throat: Mouth: Mucous membranes are moist. Eyes: Conjunctiva/sclera: Conjunctivae normal. Cardiovascular: Heart sounds: Normal heart sounds. Pulmonary: Breath sounds: Normal breath sounds. Abdominal: General: Bowel sounds are normal. There is no distension. Palpations: Abdomen is soft. There is no mass. Tenderness: There is no abdominal tenderness. Musculoskeletal: Right lower leg: No edema. Left lower leg: No edema. Neurological: Mental Status: She is alert. ER reports reviewed. Kidney lesion size is similar. Assessment and Plan 1. Gastrointestinal hemorrhage, unspecified gastrointestinal hemorrhage type - ICD9: 578.9, ICD10: K92.2 (primary diagnosis) Colitis? - COMPLETE BLOOD COUNT today. - CONSULT TO GASTROENTEROLOGY. Patient unable to travel. Refer to [facility]. 2. Constipation, unspecified constipation type - ICD9: 564.00, ICD10: K59.00 Trial docusate. Continue fluids, Senokot. She felt she had tried Miralax without benefit in the past. - DOCUSATE SODIUM 100 MG CAPSULE 3. Mass of right kidney - ICD9: 593.9, ICD10: N28.89 - Reassured. This is monitored by her urologist. Femi Baeza MD Allergies As of Date: 03/02/2024 Noted Allergy Reaction DUST 11/08/2004 LEXAPRO (ESCITALOPRAM OXALATE) 12/26/2015 14 - Other: See Comments Comments: Dizziness, shakey LISINOPRIL 05/29/2010 7 - Swelling Comments: Sonja (more content not included)... Normal [facility] Abdomen/Pelvis W IV Cont ONL Yon 02-21-2024 Abdomen/Pelvis W IV Cont ONLY [facility] [address] [place] [id number] Abdomen/Pelvis W IV Cont ONLY MR#: [id number] Acct: [id number] Name: LEONEL ANDRE Rep #: [id number] : 1945 F 79 From: Roby Doyle PCP: Dr. Femi Baeza MD Status: REG ER Study: Abdomen/Pelvis W IV Cont ONLY Date of Exam: Exam# [id number] Ordering Dr: Juan Shaffer DO :[id number] STUDY: CT ABDOMEN AND PELVIS WITH CONTRAST REASON FOR EXAM: Female, 79 years old. BRB per rectum earlier today RADIATION DOSAGE (If Supplied By Facility): CTDIvol = ( 18.85 ) mGy, DLP = ( 628.08 ) mGycm TECHNIQUE: IV 100mL Isovue-370 was administered. Transaxial images were obtained from the dome of the diaphragm to the symphysis pubis. Multiplanar coronal and sagittal images were reformatted. The protocol utilizes one or more of the following dose reduction techniques: automated exposure control, adjustment of mA and/or kV according to patient size,and/or use of iterative reconstruction technique. COMPARISON: Prior studies dated: 12/12/2023 and 07/07/2021 FINDINGS: The visualized lung bases are unremarkable. The visualized portions of the heart are within normal limits. Normal liver. The gallbladder is absent and likely surgically removed. Persistent prominent common bile duct measuring up to 13 mm. Normal spleen. Normal pancreas. Normal bilateral adrenal glands. 2 cm complex hypodense lesion. In the right kidney measuring about 2 cm slightly increased in size since previous examination from 2021. Small hyperdense nodule in the lateral aspect of the right kidney measuring about 1 cm essentially unchanged. Right extrarenal pelvis. No evidence hydronephrosis. Large hiatal hernia containing most of the fundus of the stomach. Nonspecific fluid-filled small bowel loops. Standard fluid-filled colon and fecal retention with air in the peripheral aspect of the segments of the colon likely intraluminal. No evidence of intramural air. The appendix is not definitely identified. There is diffuse atherosclerotic calcification of the abdominal aorta, without a demonstrated aneurysm. No retroperitoneal adenopathy. Normal urinary bladder. No pelvic mass. Normal abdominal wall. Levoscoliosis of the lumbar spine and multilevel degenerative changes. CT/Abdomen/Pelvis W IV Cont ONLY IMPRESSION: 1. Nonspecific fluid-filled small bowel loops and colon without evidence of bowel obstruction could be due to enterocolitis. 2. Persistent complex hypodense lesion in the right kidney slightly larger than the previous examinations could be due to slowly growing tumor. Electronically Signed: Roby Patel MD at 12:46 EST , CC: Dr. Juan Shaffer DO; Dr. Femi Baeza MD Mathematics Faculty Member: Signed Normal [facility] Absolute neutrophil countOrd ered By: Reinier Aviles on 02-21-2024 Neutrophils (Bld) [#/Vol] 9.0 10*3/uL High 2.0-7.7 [facility] Albumin to globulin ratioOrd ered By: Reinier Aviles on 02-21-2024 Albumin/Globulin [Mass ratio] 1.2 {ratio} 0.9-2.4 [facility] Basophil percentageOrdered B y: Reinier Aviles on 02-21-2024 Basophils/100 WBC (Bld) 0.4 % 0-1 [facility] Bilirubin, totalOrdered By: Reinier Aviles on 02-21-2024 Bilirubin [Mass/Vol] 1.00 mg/dL 0.20-1.00 [facility] Comment on above: For patients on eltr ombopag therapy, use of Dimension [place] TBIL is not recommended. Blood urea nitrogen (BUN)/cr eatinine ratioOrdered By: Reinier Aviles on 02-21-2024 Urea nitrogen/Creatinine [Mass ratio] 32.1 mg/mg High 12-21 [facility] CBC W/Diff, Automatedon - Anisocytosis Ql (Bld) 1+ Normal [facility] Comment on above: Performed By: #### L 100.0100 #### [facility] [address] [place], [address] PLT EST ADEQUATE Normal ADEQ [facility] Comment on above: Performed By: #### L 100.0100 #### [facility] [address] [place], [address] SMEAR COMMENT SCANNED Normal [facility] Comment on above: Performed By: #### L 100.0100 #### [facility] [address] [place], [address] Carbon dioxide measurementOr dered By: Reinier Aviles on 02-21-2024 CO2 [Moles/Vol] 24.0 mmol/L 21.0-32.0 [facility] Chloride measurementOrdered By: Reinier Aviles on 02-21-2024 Chloride [Moles/Vol] 101 mmol/L 98-107 [facility] Comprehensive Metabolic Prof ilon 02-21-2024 Albumin [Mass/Vol] 3.8 g/dL Normal 3.2-5.0 [facility] Comment on above: Performed By: #### L 500.4050, L501.2450 #### [facility] [address] [place], [address] Albumin/Globulin [Mass ratio] 1.2 {ratio} Normal 0.9-2.4 [facility] Comment on above: Performed By: #### L 500.4050, L501.2450 #### [facility] [address] [place], [address] ALK P 41 U/L Low 45-117 [facility] Comment on above: Performed By: #### L 500.4050, L501.2450 #### [facility] [address] [place], [address] ALT [Catalytic activity/Vol] 24 U/L Normal 13-56 [facility] Comment on above: Performed By: #### L 500.4050, L501.2450 #### [facility] Laboratory [address] [place], [address] AST [Catalytic activity/Vol] 15 U/L Normal 15-37 [facility] Comment on above: Performed By: #### L 500.4050, L501.2450 #### [facility] [address] [place], [address] Bilirubin [Mass/Vol] 1.00 mg/dL Normal 0.20-1.00 [facility] Comment on above: Result Comment: For patients on eltrombopag therapy, use of Dimension [place] TBIL is not recommended. Performed By: #### L 500.4050, L501.2450 #### [facility] [address] [place], [address] BUN/CRE 32.1 RATIO High 10-20 [facility] Comment on above: Performed By: #### L 500.4050, L501.2450 #### [facility] [address] [place], [address] CA,Total 8.9 mg/dL Normal 8.5-10.1 [facility] Comment on above: Performed By: #### L 500.4050, [id number] #### [facility] [address] [place], [address] Chloride [Moles/Vol] 101 mmol/L Normal 98-107 [facility] Comment on above: Performed By: #### L 500.4050, [id number] #### [facility] [address] [place], [address] CO2 [Moles/Vol] 24.0 mmol/L Normal 21.0-32.0 [facility] Comment on above: Performed By: #### L 500.4050, L501.2450 #### [facility] [address] [place], [address] Creatinine [Mass/Vol] 0.66 mg/dL Normal 0.55-1.02 [facility] Comment on above: Result Comment: The validity of the calculated GFR GFRAA in patients over 70 years has not been determined. Clinical correlation is essential. Performed By: #### L 500.4050, L501.2450 #### [facility] [address] [place], [address] ECRCL 50.05 ml/min Normal [facility] Comment on above: Performed By: #### L 500.4050, L501.2450 #### [facility] [address] [place], [address] EST GFR - AA 112 mL/min Normal >60 [facility] Comment on above: Result Comment: Afri can Tajik GFR Calc Performed By: #### L 500.4050, L501.2450 #### [facility] [address] [place], [address] GAP 8 Normal 5-15 [facility] Comment on above: Performed By: #### L 500.4050, [id number] #### [facility] [address] [place], [address] GFR/1.73 sq M.predicted among non-blacks MDRD (S/P/Bld) [Vol rate/Area] 93 mL/min/{1.73_m2} Normal >60 [facility] Comment on above: Result Comment: Non- GFR Calc Performed By: #### L 500.4050, L501.2450 #### [facility] [address] [place], [address] Globulin (S) [Mass/Vol] 3.3 g/dL Normal 2.2-4.2 [facility] Comment on above: Performed By: #### L 500.4050, [id number] #### [facility] [address] [place], [address] Glucose [Mass/Vol] 140 mg/dL High 74-106 [facility] Comment on above: Result Comment: Fast ing Glucose result greater than or equal to 126 mg/dL suggests DIABETES MELLITUS per A.D.A. criteria. Performed By: #### L 500.4050, L501.2450 #### [facility] [address] [place], [address] Potassium [Moles/Vol] 3.3 mmol/L Low 3.5-5.1 [facility] Comment on above: Performed By: #### L 500.4050, [id number] #### [facility] [address] [place], [address] Sodium [Moles/Vol] 133 mmol/L Low 136-145 [facility] Comment on above: Performed By: #### L 500.4050, [id number] #### [facility] [address] [place], [address] T PROT 7.1 g/dL Normal 6.4-8.2 [facility] Comment on above: Performed By: #### L 500.4050, L501.2450 #### [facility] Laboratory [address] [place], [address] Urea nitrogen [Mass/Vol] 21 mg/dL High 7-18 [facility] Comment on above: Performed By: #### L 500.4050, L501.2450 #### [facility] [address] [place], [address] Emergency Department Summary on 02-21-2024 Emergency Department Summary [facility] Medical Records Department [address] [place] [address] Emergency Department Summary 02/21/24 MR#: [id number] Acct: [id number] Name: LEONEL ANDRE Rep #: [id number] : 1945 79 From: Juan Shaffer DO PCP: Dr. Femi Baeza MD Status:REG ER Location: ED HPI History of Present Illness Chief Complaint: GI Bleed Narrative Narrative: Patient is a 79-year-old female with past medical history of diverticular disease, primary hyperparathyroidism, osteoporosis, hypertension who presents to the emergency department with a chief complaint of bright red blood per rectum. Patient states that she was here overnight and was evaluated for nausea vomiting which has been going on for the past few days. States that her son at bedside has been sick with diarrhea as well and similar symptoms. States that this morning when she got up she had a bowel movement and noted that she had diarrhea and was noted to have bright red blood associated with this. States that she noted something was out of her rectum and she pushed this back up she states that she has never had anything that this happen before. States states that she does have some cramping abdominal pain in the lower portion of her abdomen. Patient denies any history of blood thinning medications. Patient states that her last bright red blood per her rectum bowel movement was around 9:45 AM this morning. [facility] Medical History Gait disturbance Diverticular disease Primary hyperparathyroidism Sciatica Age related osteoporosis Bowel obstruction Scoliosis Lumbar radiculopathy Hx of renal cell carcinoma Osteoporosis GERD (gastroesophageal reflux disease) Hypoglycemia HTN (hypertension) Bladder prolapse Home Medications ???Medication ???Instructions ???Recorded ???Last Taken ???Type cholecalciferol (vitamin D3) 25 2,000 unit PO DAILY 12/26/15 Unknown History mcg (1,000 unit) tablet (Vitamin D3) losartan 25 mg tablet 25 mg PO DAILY 12/26/15 Unknown History oxybutynin chloride 5 mg tablet 5 mg PO BID 12/26/15 Unknown History diltiazem HCl 180 mg capsule,24 360 mg PO DAILY 09/08/20 Unknown History hr,extended release lorazepam 0.5 mg tablet 0.5 mg PO DAILY 09/08/20 Unknown History acetaminophen 500 mg tablet 500 mg PO Q6H PRN pain 08/23/22 Unknown History (Tylenol Extra Strength) cetirizine 5 mg tablet 5 mg PO DAILY PRN allergy symptoms 08/23/22 Unknown History fluticasone propionate 50 1 spray intranasal DAILY 08/23/22 Unknown History mcg/actuation nasal spray,suspension omeprazole 40 mg capsule,delayed 40 mg PO DAILY 08/23/22 Unknown History release sodium chloride 0.65 % nasal spray 1 spray intranasal ONCE 08/23/22 Unknown History aerosol denosumab 60 mg/mL subcutaneous 60 mg subcut [id number] #1 mL 10/03/22 Unknown Rx syringe (Prolia) Lactobacillus rhamnosus GG 20 1 cell PO DAILY 12/16/23 Unknown History billion cell capsule (Probiotic Digestive Care) sennosides 17.2 mg tablet (Senokot 17.2 mg PO QDAY 12/16/23 Unknown History Extra Strength) hydrocodone-acetaminophen 5-325mg 1 tab PO Q6H PRN PRN Pain 3 days 01/13/24 Unknown Rx 5mg-325mg #10 TABLETS phenazopyridine 200 mg tablet 200 mg PO TID #10 tabs 01/13/24 Unknown Rx (Pyridium) amoxicillin 500 mg tablet 500 mg PO TID #30 tabs 01/22/24 Unknown Rx ondansetron 8 mg disintegrating 8 mg PO Q8H PRN nausea and 02/21/24 Unknown Rx tablet vomiting #15 tabs potassium chloride 20 mEq 20 meq PO BID #8 tabs 02/21/24 Unknown Rx tablet,extended release Allergy/AdvReac Type Severity Reaction Status Date / Time lisinopril Allergy Swelling Verified 02/21/24 10:23 esomeprazole (From Nexium) AdvReac Nausea/Vom/ Verified 02/21/24 10:23 Diarrhea Family History Father Alcoholism Brother Alcoholism Mother Arthritis Hypertension Osteoporosis Surgical History History of knee replacement H/O partial nephrectomy Social History Smoking Status: Former smoker alcohol intake: never what type of physical activity do you participate in: bicycling ROS ROS ED ROS Narrative Constitutional: Denies any fevers, chills, headaches, lightness, dizziness Eyes: Denies any changes vision double vision blurry vision Cardiovascular: Denies chest pain or palpitation Respiratory: Denies coughing wheezing shortness of breath Abdomen: Complains of some abdominal cramping, nausea vomiting diarrhea as noted above as well as bright red blood per rectum as noted above denies any dark tarry stools : Denies any urinary symptoms Neurological: Denies any numbness, weakness, t (more content not included)... Normal [facility] Emergency Department Summary [facility] Medical Records Department [address] [place] [address] Emergency Department Summary 02/21/24 MR#: [id number] Acct: [id number] Name: LEONEL ANDRE Rep #: [id number] : 1945 79 From: Reinier Aviles MD PCP: Dr. Femi Baeza MD Status:REG ER Location: ED HPI HPI - GI History of Present Illness Chief Complaint: Nausea/Vomiting/Diarrhea Informant: patient and family Narrative Narrative: 79-year-old female started having watery diarrhea at night a little over 24 hours ago, the next morning she was nauseated have a couple episodes of emesis no blood or coffee-ground's, no melena or blood in the diarrhea, the diarrhea has persisted has not been severe, and she has had some mild lower abdominal cramping associated with some of this that has been intermittent. No fevers or chills. Denies any recent travel out of the area, antibiotics for any infections, history of C. difficile, or raw meats or fish ingestion or other suspicious foods. She states her family member that she has close contact with has had some diarrhea recently, no other known sick contacts. [facility] Medical History Gait disturbance Diverticular disease Primary hyperparathyroidism Sciatica Age related osteoporosis Bowel obstruction Scoliosis Lumbar radiculopathy Hx of renal cell carcinoma Osteoporosis GERD (gastroesophageal reflux disease) Hypoglycemia HTN (hypertension) Bladder prolapse Home Medications ???Medication ???Instructions ???Recorded ???Last Taken ???Type cholecalciferol (vitamin D3) 25 2,000 unit PO DAILY 12/26/15 Unknown History mcg (1,000 unit) tablet (Vitamin D3) losartan 25 mg tablet 25 mg PO DAILY 12/26/15 Unknown History oxybutynin chloride 5 mg tablet 5 mg PO BID 12/26/15 Unknown History diltiazem HCl 180 mg capsule,24 360 mg PO DAILY 09/08/20 Unknown History hr,extended release lorazepam 0.5 mg tablet 0.5 mg PO DAILY 09/08/20 Unknown History acetaminophen 500 mg tablet 500 mg PO Q6H PRN pain 08/23/22 Unknown History (Tylenol Extra Strength) cetirizine 5 mg tablet 5 mg PO DAILY PRN allergy symptoms 08/23/22 Unknown History fluticasone propionate 50 1 spray intranasal DAILY 08/23/22 Unknown History mcg/actuation nasal spray,suspension omeprazole 40 mg capsule,delayed 40 mg PO DAILY 08/23/22 Unknown History release sodium chloride 0.65 % nasal spray 1 spray intranasal ONCE 08/23/22 Unknown History aerosol denosumab 60 mg/mL subcutaneous 60 mg subcut [id number] #1 mL 10/03/22 Unknown Rx syringe (Prolia) Lactobacillus rhamnosus GG 20 1 cell PO DAILY 12/16/23 Unknown History billion cell capsule (Probiotic Digestive Care) sennosides 17.2 mg tablet (Senokot 17.2 mg PO QDAY 12/16/23 Unknown History Extra Strength) hydrocodone-acetaminophen 5-325mg 1 tab PO Q6H PRN PRN Pain 3 days 01/13/24 Unknown Rx 5mg-325mg #10 TABLETS phenazopyridine 200 mg tablet 200 mg PO TID #10 tabs 01/13/24 Unknown Rx (Pyridium) amoxicillin 500 mg tablet 500 mg PO TID #30 tabs 01/22/24 Unknown Rx ondansetron 8 mg disintegrating 8 mg PO Q8H PRN nausea and 02/21/24 Unknown Rx tablet vomiting #15 tabs potassium chloride 20 mEq 20 meq PO BID #8 tabs 02/21/24 Unknown Rx tablet,extended release Allergy/AdvReac Type Severity Reaction Status Date / Time lisinopril Allergy Swelling Verified 02/20/24 23:45 esomeprazole (From Nexium) AdvReac Nausea/Vom/ Verified 02/20/24 23:45 Diarrhea Family History Father Alcoholism Brother Alcoholism Mother Arthritis Hypertension Osteoporosis Surgical History History of knee replacement H/O partial nephrectomy Social History Smoking Status: Former smoker alcohol intake: never what type of physical activity do you participate in: bicycling ROS ROS ED Constitutional Constitutional ED: Denies chills or fever(s) Eyes Eyes: Denies change in vision or diplopia ENT ENT ED: Denies rhinorrhea or sore throat Cardiovascular Cardiovascular: Denies chest pain, lightheadedness, palpitations or syncope Respiratory/Chest Respiratory/Chest: Denies cough or dyspnea Gastrointestinal Gastrointestinal: Reports abdominal pain, diarrhea, nausea and vomiting; Denies hematemesis, hematochezia or melena Genitourinary Genitourinary ED: Denies dysuria or hematuria Musculoskeletal Musculoskeletal: Denies back pain or neck pain Integumentary Denies abscess or rash Neurologic Neurologic: Denies headache(s), paresthesias or weakness Psychiatric Psychiatric: Denies anxiety or suicidal thoughts EXAM Physical Exam Const Vital Sig (more content not included)... Normal [facility] Eosinophil percentageOrdered By: Reinier Aviles on 02-21-2024 Eosinophils/100 WBC (Bld) 0.4 % 0-5 [facility] Erythrocyte distribution wid th ratioOrdered By: Reinier Aviles on 02-21-2024 Erythrocyte distribution width (RBC) [Ratio] 13.2 % 11.6-14.6 [facility] Erythrocyte distribution wid th standard deviationOrdered By: Reinier Aviles on 02-21-2024 Erythrocyte distribution width (RBC) [Entitic vol] 41.7 fL 35.1-43.9 [facility] Estimated glomerular filtrat ion rate (GFR) AmericanOrdered By: Reinier Aviles on 02-21-2024 Estimated GFR (MDRD) Amer 112 mL/min >60 [facility] Comment on above: GFR Calc Estimation of creatinine prabhjot aranceOrdered By: Reinier Aviles on 02-21-2024 Estimated Creatinine Clearance Calc 50.05 ml/min [facility] Glomerular filtration rate ( GFR) estimationOrdered By: Reinier Aviles on 02-21-2024 Estimated GFR (MDRD) Non-Af Amer 93 mL/min >60 [facility] Comment on above: Non- GFR Calc Glucose measurementOrdered B y: Reinier Stefan on 02-21-2024 Glucose [Mass/Vol] 140 mg/dL High 74-106 [facility] Comment on above: Fasting Glucose resu lt greater than or equal to 126 mg/dL suggests DIABETES MELLITUS per A.D.A. criteria. Hematocrit Auto (Bld) [Volum e fraction]Ordered By: Reinier Aviles on 02-21-2024 Hematocrit (Bld) [Volume fraction] 42.9 % 37-47 [facility] Hemoglobin measurementOrdere d By: Reinier Aviles on 02-21-2024 Hemoglobin (Bld) [Mass/Vol] 14.2 g/dL 12.0-15.0 [facility] Immature granulocytes/100 WB C Auto (Bld)Ordered By: Reinier Aviles on 02-21-2024 Immature granulocytes/100 WBC (Bld) 2.900 % High 0.0-0.9 [facility] Comment on above: IG% - Immature Granu locytes (promyelocytes, myelocytes and metamyelocytes) > 1% indicates that a LEFT SHIFT is Present. Laboratory - Chemistry and C hemistry - challengeOrdered By: Reinier Aviles on 02-21-2024 AST [Catalytic activity/Vol] 15 U/L 15-37 [facility] Laboratory - Hematology and Cell countsOrdered By: Reinier Aviles on 02-21-2024 Anisocytosis Ql (Bld) 1+ [facility] Lipaseon 02-21-2024 Lipase [Catalytic activity/Vol] 15 U/L Normal 13-75 [facility] Comment on above: Result Comment: Soraya ham note: LIPASE revised reference range effective 22. New Lipase methodology. Expected to produce lower values than the previous assay method. NEW Reference Range: 13 - 75 U/L Performed By: #### L 500.4050, L501.2450 ####[facility] [id number] [place], [place], [address] Lipase measurementOrdered By : Reinier Aviles on 02-21-2024 Lipase [Catalytic activity/Vol] 15 U/L 13-75 [facility] Comment on above: Please note:LIPASE r evised reference range effective 22. New Lipase methodology. Expected to produce lower values than the previous assay method. NEW Reference Range: 13 - 75 U/L Lower GI hemoglobin IA Ql (S tl)Ordered By: Juan Shaffer on 02-21-2024 Stool Occult Blood (ABRAHAN) Positive Abnormal [facility] Lymphocytes Auto (Unsp spec) [#/Vol]Ordered By: Reinier Aviles on 02-21-2024 Lymphocytes (Bld) [#/Vol] 0.27 10*3/uL Low 0.83-4.51 [facility] Lymphocytes/100 WBC Auto (Un sp spec)Ordered By: Reinier Aviles on 02-21-2024 Lymphocytes/100 WBC (Bld) 2.6 % Low 19-41 [facility] MCV (mean corpuscular volume ) determinationOrdered By: Reinier Aviles on 02-21-2024 MCV (RBC) [Entitic vol] 87.7 fL 81-99 [facility] Manual differential comment Asael (Bld) [Interp]Ordered By: Reinier Aviles on 02-21-2024 Differential Comment SCANNED [facility] Mean corpuscular hemoglobin (MCH) determinationOrdered By: Reinier Aviles on 02-21-2024 MCH (RBC) [Entitic mass] 29.0 pg 27.0-32.0 [facility] Mean corpuscular hemoglobin concentration (MCHC) determinationOrdered By: Reinier Aviles on 02-21-2024 MCHC (RBC) [Mass/Vol] 33.1 g/dL 32-36 [facility] Mean platelet volume determi nationOrdered By: Reinier Aviles on 02-21-2024 Platelet mean volume (Bld) [Entitic vol] 10.2 fL 6.2-12.0 [facility] Monocyte percentageOrdered B y: Reinier Aviles on 02-21-2024 Monocytes/100 WBC (Bld) 5.5 % 0-10 [facility] Neutrophil percentageOrdered By: Reinier Aviles on 02-21-2024 Neutrophils/100 WBC (Bld) 88.2 % High 47-70 [facility] Nucleated red blood cell per centageOrdered By: Reinier Aviles on 02-21-2024 Nucleated RBC/100 WBC (Bld) [Ratio] 0 % 0-5 [facility] Platelet countOrdered By: Ronna Aviles on 02-21-2024 Platelets (Bld) [#/Vol] 200 10*3/uL 150-450 [facility] Platelets LM Ql (Bld)Ordered By: Reinier Aviles on 02-21-2024 Platelet Estimate ADEQUATE ADEQ [facility] Potassium measurementOrdered By: Reinier Aviles on 02-21-2024 Potassium [Moles/Vol] 3.3 mmol/L Low 3.5-5.1 [facility] RBC Auto (Bld) [#/Vol]Ordere d By: Reinier Aviles on 02-21-2024 RBC (Bld) [#/Vol] 4.89 10*6/uL 4.2-5.4 [facility] Serum anion gap measurementO rdered By: Reinier Aviles on 02-21-2024 Anion gap [Moles/Vol] 8 mmol/L 5-15 [facility] Serum globulin measurementOr dered By: Reinier Aviles on 02-21-2024 Globulin (S) [Mass/Vol] 3.3 g/dL 2.2-4.2 [facility] Serum or plasma alanine de jesus otransferase (ALT) measurementOrdered By: Reinier Aviles on 02-21-2024 ALT [Catalytic activity/Vol] 24 U/L 13-56 [facility] Serum or plasma albumin erendira urement (mass/volume)Ordered By: Reinier Aviles on 02-21-2024 Albumin [Mass/Vol] 3.8 g/dL 3.2-5.0 [facility] Serum or plasma alkaline rudy sphatase measurementOrdered By: Reinier Aviles on 02-21-2024 ALP [Catalytic activity/Vol] 41 U/L Low 45-117 [facility] Serum or plasma calcium erendira urement (mass/volume)Ordered By: Reinier Aviles on 02-21-2024 Calcium [Mass/Vol] 8.9 mg/dL 8.5-10.1 [facility] Serum or plasma creatinine m easurement (mass/volume)Ordered By: Reinier Aviles on 02-21-2024 Creatinine [Mass/Vol] 0.66 mg/dL 0.55-1.02 [facility] Comment on above: The validity of the calculated GFR & GFRAA in patients over 70 years has not been determined. Clinical correlation is essential. Serum or plasma urea nitroge n measurement (mass/volume)Ordered By: Reinier Aviles on 02-21-2024 Urea nitrogen [Mass/Vol] 21 mg/dL High 7-18 [facility] Sodium levelOrdered By: Morgan Aviles on 02-21-2024 Sodium [Moles/Vol] 133 mmol/L Low 136-145 [facility] Stool Occult Blood iFOBon STOB Positive Normal [facility] Comment on above: Performed By: #### M 100.7900 ####[facility] [id number] [place], [address] Total proteinOrdered By: Luis Aviles on 02-21-2024 Protein [Mass/Vol] 7.1 g/dL 6.4-8.2 [facility] White blood cell (WBC) count Ordered By: Reinier Aviles on 02-21-2024 WBC (Bld) [#/Vol] 10.2 10*3/uL 4.4-11.0 [facility] CNOVon 02-04-2024 CNOV Office Visit (INTMWS ) LEONEL ANDRE ([id number]) 1945 F Date Time Provider Department 02/04/24 11:40 AM FEMI BAEZA INTMWS During your visit today, we recorded the following information about you: Temperature Pulse Respiration Blood pressure 97.7 degrees 76/minute 16/minute 148/86 Weight 62.5 kg Femi Baeza MD 02/04/2024 12:52 PM Signed This note was created using [employer]. Subjective Leonel Andre is a 78 year old female. She started with rhinorrhea 3 weeks ago, followed by purulent nasal drainage, postnasal drainage, and none productive cough. Other symptoms were some ear pain and decreased hearing on the left. [facility] to [facility] where she reported testing negative for Covid and influenza. She was prescribed Amoxicillin for 10 days with no improvement in her symptoms. She called Dr. Collins (ENT) but could not be seen till next week. Her hypertension had been elevated off late, but she reported dealing with stressors at this time. Review of Systems Constitutional: Positive for chills and fever. Respiratory: Negative for shortness of breath and wheezing. Cardiovascular: Negative. Gastrointestinal: Negative. ACTIVE PROBLEM LIST Essential Hypertension Esophageal Reflux Vitamin D Deficiency Constipation Scoliosis Urge Incontinence History of Renal Cell Carcinoma Osteoporosis Anxiety Pain in Right Hip Radiculopathy, Lumbar Region Mass of Right Kidney Current Outpatient Medications Medication Sig phenazopyridine (PYRIDIUM) 200 mg tablet three times a day. oxybutynin (DITROPAN) 5 mg tablet Take 1 tablet by mouth two times a day. omeprazole (PRILOSEC) 40 mg capsule Take 1 capsule by mouth once daily. LORazepam (ATIVAN) 0.5 mg Take 1 tablet by mouth once daily as needed (anxiety) for up to 90 days. 3 months supply. dilTIAZem CR (TAZTIA XT) 180 mg 24 hr capsule Take 2 capsules by mouth once daily. Patient should start on November 03, 2023. losartan (COZAAR) 25 mg tablet Take 1 tablet by mouth two times a day. Cholecalciferol, Vitamin D3, 50 mcg (2,000 unit) cap Take 1 capsule by mouth once daily. Prescribed by endocrinology (Dr. César Johnson) denosumab (PROLIA) 60 mg/mL Once every 6 months. Prescribed by endocrinology (Dr. César Johnson) Dextrin (EASY FIBER) 3 gram/3.5 gram powd Take 3 g by mouth once daily. Mixed with water. Sennosides (SENOKOT EXTRA STRENGTH) 17.2 mg tab Take 1 tablet by mouth daily with lunch AND 2 tablets daily at bedtime. lactobacillus comb no.10 (PROBIOTIC) 20 billion cell cap Take 1 capsule by mouth daily at bedtime. fexofenadine (MUCINEX ALLERGY) 180 mg tablet Take 180 mg by mouth once daily. fluticasone (FLONASE) 50 mcg/actuation nasal spray Use 2 Sprays in each nostril once daily. Rinse mouth after use. ACETAMINOPHEN (TYLENOL ARTHRITIS ORAL) Take by mouth. lubiprostone (AMITIZA) 24 mcg capsule Take 1 capsule by mouth two times a day with meals. (Patient not taking: Reported on 02/04/2024) No current facility-administered medications for this visit. Objective BP 148/86 (BP Site: Left Arm, BP Position: Sitting, BP Cuff Size: Large Adult) Pulse 76 Temp 36.5 ?C (97.7 ?F) (Temporal) Resp 16 Wt 62.5 kg (137 lb 12.6 oz) BMI 23.65 kg/m? Physical Exam Constitutional: General: She is not in acute distress. Appearance: She is not ill-appearing. HENT: Right Ear: Ear canal and external ear normal. There is impacted cerumen. Left Ear: Ear canal and external ear normal. There is impacted cerumen. Nose: Congestion present. No rhinorrhea. Right Turbinates: Swollen. Left Turbinates: Swollen. Right Sinus: No maxillary sinus tenderness or frontal sinus tenderness. Left Sinus: No maxillary sinus tenderness or frontal sinus tenderness. Mouth/Throat: Mouth: Mucous membranes are moist. Pharynx: Posterior oropharyngeal erythema present. No oropharyngeal exudate. Cardiovascular: Heart sounds: Normal heart sounds. Pulmonary: Breath sounds: Normal breath sounds. No wheezing, rhonchi or rales. Lymphadenopathy: Cervical: No cervical adenopathy. Assessment and Plan 1. Rhinosinusitis - ICD9: 473.9, ICD10: J32.9 (primary diagnosis) - Supportive care with plenty of fluids, rest, and analgesia prn. - Shared medical decision making was done and we discussed another antibiotic is not likely to be helpful. - PREDNISONE 20 MG TABLET. Discussed medication dosage, usage, goals of therapy, and side effects. 2. Impacted cerumen of both ears - ICD9: 380.4, ICD10: H61.23 - Consent obtained to try lavage. This was not successful. She will see ENT. - AMBULATORY EAR LAVAGE/IRRIGATION 3. Essential hypertension - ICD9: 401.9, ICD10: I10 - Worsening control - Continue current medications - Reviewed risks of hypertension and principles of treatment MD Tunde Ho Helen E, CHERELLE 02/04/2024 (more content not included)... Normal [facility] Inital Evaluation (1) - PTon 01-28-2024 Inital Evaluation (1) - PT [facility] Physical [facility] [address] [place] [address] / REHABILITATION SERVICES INITIAL EVALUATION MR#: [id number] Acct: [id number] Name: LEONEL ANDRE Rep #: [id number] : 1945 78 From: Armond Garza DPT, OCS, CSCS Referring Dr.: Dr. César Johnson MD Status: REG RC R [facility] 01/02/18 SELF PAY INSURANCE Patient's Visit Information Visit Information Visit Information: LEONEL ANDRE is a 78 year old F referred to Physical Therapy by Dr. César Johnson MD with a diagnosis of gait disturbance. Date of Evaluation: 01/28/24 Physical Therapist: Armond Garza DPT, OCS, CSCS Visit Plan Frequency: 2x /Week Duration: 4-6 Weeks Plan: 2x/week for 4-6 weeks for... IE: given 5 min walk with wh walker(pt to get) and 5 min supine lie all 2x/day please teach general strength with band for UE, posture, hips and core adn LE and work to I. May use MH for neck pain, focus on posture, Encourage use of wh walker for back and neck tolerance to ambulation. Subjective Subjective: I have a cokllapsed disc that pinched nerve that gave back and R leg pain to toe. Has neck pain also that can hurt badly for no apparent. Has been there 3 weeks. Gets stiff neck often. Dr. Baeza is PCP. Has not seen doctor for pain. Not seen ortho or pain doctor. Was at pain center last year for back injection that did not help and she did not go back. No falls. Balance feels good. . Has scoliosis and has for long time. Lives with two sons. stih steps into house 5 total with railing. Sleep is OK 2-3 hrs at time due to bladder, sees Sruthi for kidney masses Not employed. Basic ADLs dress and shower and bathroom I. Makes own meals. No regular exercise. 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 Uses cane out and about but not at home. Pain neck pain: Pain Intensity (Out of 10): 2 Pain Intensity Range: 0 and 9 Comment: cannot straighten up LB: Pain Intensity (Out of 10): 0 Comment: into R leg and sometimes L.2 min at a time. Needs to keep moving. Objective Objective: Walks hunched over in thoracic spine with cane into PT I looking at floor and upper cervical extension. Can do it I without cane also. Looks best with wh walker, up taller and less back and neck pain. 500 feet overall ambulation is about the limit in 8 minutes due to fatigue and pain. Trasnfer bed and chair I. Steps reciprocal with one rail and one but very weak in legs and hunched over. Able to lie flat on bed but needs multiple pillows for neck adn thoracic kyphosis. tight in back in this position. Tightness apparent in psoas B and HS at -25 90/90. LB AROM ext max limited, flexion mod limited, SB mod limited. LE AROM WFL except hip extension which is 0 B. sensation WNL to gross light touch in LE reflexes 0/3 patella and achilles Strength core 3, hips 3, knees 3+, ankles 4-. very unstable sitting with leg testing but safe. Balance/Special Test Scores Functional Gait Assessment Score: 22 % Disability: 26.6700 CATSIB Score (Max score 120 seconds): 105 Lower Extremity Functional Score: 31 Goals Goal 1:: I appropriate HEP for general strength emphasizing posture and core and hips and LE Goal Time Frame: 4-6 Weeks Goal 2:: Pt feel 75% better in mobility and pain with ambulation Goal Time Frame: 4-6 Weeks Goal 3:: walk 10 minutes with wh walker without increased pain Goal Time Frame: 4-6 Weeks Goal 4:: LEFS score 40 Goal Time Frame: 4-6 Weeks Rehabilitation Potential Physical Therapy Diagnosis: weakness and postural abnormalities limiting comfortable mobility Rehabilitation Potential: Fair Anticipated Interventions Patient/Client Instruction: Educate patient on: Condition and Risk Factors For the Purpose of:: To improve nutrient delivery to tissue, To improve muscle performance and motor function and To increase tolerance to activity/condition/position Therapeutic Exercise to Include: Strength training, Postural training, Passive ROM and Active ROM For the Purpose of:: To decrease pain, To increase ROM, To improve muscle performance and motor function, To increase tolerance to activity/condition/position, To improve ability of physical actions for home/community/work/leisure and To improve gait and locomotor functions Text: Thank you for the opportunity to evaluate your patient. For Medicare and Medicare HMO plans, please review the plan of care and approve it. It will need to be FAXED BACK to us at [phone] for Medicare purposes. For Medicare only, by signing this I certify the plan of care. Please let me know if there are questions or concerns regarding this plan of care. Physician Signature: ___Date: 01/28/24 1621 CC: Dr. Kurtz (more content not included)... Normal [facility] Laboratory - Microbiology an d Antimicrobial susceptibilityon 01-22-2024 SARS-CoV-2 (COVID-19) RNA ROSE+probe Ql (Unsp spec) Not detected [facility] No Panel Informationon 01-21 Influenza Types A,B Rapid (Clinic) Negative [facility] Urgent Care Visit Reporton 1 03-23-2023 Urgent Care Visit Report [facility] [address], [address] [place] [address] OFFICE VISIT Date of Service: 01/22/24 MR#: [id number] Acct: [id number] Name: LEONEL ANDRE Blayne Rep #: [id number] : 1945 Provider: ALBINA Herring Age/Sex: 78/F Location: [facility] Status: Signed Intake Vital Signs 01/13/24 13:02 01/22/24 14:05 Height 5 ft 4 in 5 ft 4 in BP 120/70 Blood Pressure Location Lt brachial Position Sitting Respiration 14 Pulse 82 Temp 98.2 F Temp Source Oral Pulse Oximetry (%) 96 Oxygen Delivery Method room air Intake Visit Reasons: COUGH, SORE THROAT Chief Complaint: Bone Allergies lisinopril Allergy (Verified 01/13/24 13:04) Swelling esomeprazole (From Nexium) Adverse Reaction (Verified 01/13/24 13:04) Nausea/Vom/Diarrhea Have you fallen in the past year?: No PFSH Medical History (Updated 01/21/24 @ 00:02 by Background Daemon) Gait disturbance Diverticular disease Primary hyperparathyroidism Sciatica Age related osteoporosis Bowel obstruction Scoliosis Lumbar radiculopathy Hx of renal cell carcinoma Osteoporosis GERD (gastroesophageal reflux disease) Hypoglycemia HTN (hypertension) Bladder prolapse Surgical History History of knee replacement H/O partial nephrectomy Family History Father Alcoholism Brother Alcoholism Mother Arthritis Hypertension Osteoporosis Social History Smoking Status: Former smoker alcohol intake: never what type of physical activity do you participate in: bicycling HPI HPI Chief Complaint: Bone Details: LEONEL ANDRE, is a 78 F who presents to the office today for initial evaluation at the [facility] for approximately 1-week history of progressively worsening facial pressure/congestion with purulent postnasal drip/cough and bilateral ear pressure. No complaints of fever, chills, myalgias, fatigue, runny nose, or nausea/vomiting/diarrhea. No complaints of chest pain/shortness of breath/dyspnea on exertion. No close contacts with similar complaints. Patient requesting POC screening for COVID-19 and influenza. No other associated symptoms and no other alleviating/aggravating factors. ROS Const Constitutional: No other (as above) Exam Const General: cooperative, healthy appearing and no acute distress Nutritional Appearance: average body habitus Orientation: alert, awake and oriented x3 HENMT Head: normal to inspection Ears: hearing grossly normal bilaterally, external ears normal, TM's normal bilaterally and EAC's normal Nose: external nose normal, nares normal, septum normal and no nasal discharge Face and sinus: normal facial exam, sinuses nontender (Though bilateral maxillary fullness to palpation) and face symmetric Mouth: oral mucosae normal, lip normal, tongue normal and oropharynx normal Throat: posterior oropharynx normal, tonsils normal, uvula midline and postnasal drainage (Purulent) Eyes General: appearance normal, both eyes and all related structures Neck Neck: normal visual inspection, full ROM, no meningeal signs, supple and lymphadenopathy (Bilateral anterior cervical lymph node swelling/tender to palpation) Neck mass: No Thyroid: thyroid normal Chest Chest palpation inspection: normal inspection of the chest Resp Effort Inspection: normal respiratory effort and able to speak in complete sentences Auscultation: Bilateral: Clear to Auscultation Cardio Palpation: normal PMI Rate: regular rate Rhythm: regular rhythm Heart Sounds: S1 normal, S2 normal, no gallops, no murmurs and no rubs Pulses: radial pulses present GI Inspection: normal to inspection Skin General: no rashes or lesions noted Neuro General: patient alert, patient awake and patient oriented x3 Cognition: normal cognition Speech: speech normal Psych Appearance: grossly normal Mental Status: mental status grossly normal Mood: congruent mood Affect: normal affect Speech and Movement: speech and movement normal Attitude: cooperative Diagnoses Acute maxillary sinusitis, unspecified J01.00 Contact with or exposure to other viral diseases Z20.828 Assessment and Plan Assessment and Plan (1) Acute maxillary sinusitis, unspecified: Status: Acute (2) Contact with or exposure to other viral diseases: Status: Acute Plan: See POC results. Amoxicillin as prescribed today. Supportive measures as instructed today. Follow-up with PCP in 3 to 5 days should symptoms not improve, sooner should symptoms worsen or any other concerns develop. Patient states acknowledging understanding all the above Coding Level of Care Code Off vis,est,level 3 Assessment and Plan Ass (more content not included)... Normal [facility] CNOVon 01-17-2024 CNOV Office Visit (INTMWS ) LEONEL ANDRE ([id number]) 1945 F Date Time Provider Department 01/17/24 2:00 PM FEMI BAEZA INTMWS During your visit today, we recorded the following information about you: Temperature Pulse Blood pressure Weight 98.1 degrees 106/minute 142/82 64 kg Height 1.626 m Femi Baeza MD 01/17/2024 3:26 PM Signed This note was created using [employer]. Subjective Patient presents with: ER F/U: [facility] ER right flank pain Leonel Andre is a 78 year old female. She had chronic right flank pain radiating around the side to her pelvic area. She felt this had worsened and associated with some urinary symptoms, went to the ER for evaluation. No urinary tract infection was found. She was prescribed hydrocodone, which she did not pick pulling machine tender. Other associated symptom was constipation. Bowel movements tend to be hard and every 3 days. Laxatives were taken with limited improvement. CT scan was just done by her urologist and we reviewed findings again. Review of Systems Constitutional: Negative for appetite change, chills, diaphoresis, fever and unexpected weight change. Respiratory: Negative for cough and shortness of breath. Gastrointestinal: Positive for abdominal distention and constipation. Negative for blood in stool, diarrhea and nausea. Genitourinary: Positive for flank pain and frequency. Negative for dysuria. ACTIVE PROBLEM LIST Essential Hypertension Esophageal Reflux Vitamin D Deficiency Constipation Scoliosis Urge Incontinence History of Renal Cell Carcinoma Osteoporosis Anxiety Pain in Right Hip Radiculopathy, Lumbar Region Mass of Right Kidney Social History Tobacco Use Smoking status: Former Current packs/day: 0.00 Average packs/day: 1 pack/day for 23.0 years (23.0 ttl pk-yrs) Types: Cigarettes Start date: 03/04/1956 Quit date: 03/04/1979 Years since quittin.9 Smokeless tobacco: Never Vaping Use Vaping status: Never Used Substance Use Topics Alcohol use: No Drug use: No Current Outpatient Medications Medication Sig phenazopyridine (PYRIDIUM) 200 mg tablet three times a day. oxybutynin (DITROPAN) 5 mg tablet Take 1 tablet by mouth two times a day. omeprazole (PRILOSEC) 40 mg capsule Take 1 capsule by mouth once daily. LORazepam (ATIVAN) 0.5 mg Take 1 tablet by mouth once daily as needed (anxiety) for up to 90 days. 3 months supply. dilTIAZem CR (TAZTIA XT) 180 mg 24 hr capsule Take 2 capsules by mouth once daily. Patient should start on November 03, 2023. losartan (COZAAR) 25 mg tablet Take 1 tablet by mouth two times a day. Cholecalciferol, Vitamin D3, 50 mcg (2,000 unit) cap Take 1 capsule by mouth once daily. Prescribed by endocrinology (Dr. César Johnson) denosumab (PROLIA) 60 mg/mL Once every 6 months. Prescribed by endocrinology (Dr. César Johnson) Dextrin (EASY FIBER) 3 gram/3.5 gram powd Take 3 g by mouth once daily. Mixed with water. Sennosides (SENOKOT EXTRA STRENGTH) 17.2 mg tab Take 1 tablet by mouth daily with lunch AND 2 tablets daily at bedtime. lactobacillus comb no.10 (PROBIOTIC) 20 billion cell cap Take 1 capsule by mouth daily at bedtime. fexofenadine (MUCINEX ALLERGY) 180 mg tablet Take 180 mg by mouth once daily. fluticasone (FLONASE) 50 mcg/actuation nasal spray Use 2 Sprays in each nostril once daily. Rinse mouth after use. ACETAMINOPHEN (TYLENOL ARTHRITIS ORAL) Take by mouth. No current facility-administered medications for this visit. Objective BP 142/82 (BP Site: Left Arm) Pulse 106 Temp 36.7 ?C (98.1 ?F) Ht 162.6 cm (5' 4") Wt 64 kg (141 lb 1.5 oz) SpO2 98% BMI 24.22 kg/m? Physical Exam Constitutional: General: She is not in acute distress. Cardiovascular: Heart sounds: Normal heart sounds. Pulmonary: Breath sounds: Normal breath sounds. Musculoskeletal: Thoracic back: Deformity present. Scoliosis present. Lumbar back: Deformity present. No tenderness. Negative right straight leg raise test and negative left straight leg raise test. Scoliosis present. Right lower leg: No edema. Left lower leg: No edema. Neurological: Mental Status: She is alert. Gait: Gait abnormal. Test results pertinent to today's visit were reviewed and discussed with the patient. Assessment and Plan 1. Radiculopathy, lumbar region - ICD9: 724.4, ICD10: M54.16 (primary diagnosis) Chronic low back pain - Shared medical decision making was done. She felt there was a reasonable change constipation aggravated her flank pain. See #3. 2. Pain in right hip - ICD9: 719.45, ICD10: M25.551 See #3 3. Chronic idiopathic constipation - ICD9: 564.00, ICD10: K59.04 Discussed medication dosage, usage, goals of therapy, and side effects. No laxatives while starting this medication. PA may be needed. Stop for severe diarrhea. - LUBIPROSTONE 24 MCG CAPSULE Femi Baeza MD (more content not included)... Normal [facility] Basic Metabolic Profile (BMP )on 01-13-2024 BUN/CRE 22.6 RATIO High 10-20 [facility] Comment on above: Performed By: #### L 100.0100, L500.2500 #### [facility] Laboratory [address] [place], [address] CA,Total 10.2 mg/dL High 8.5-10.1 [facility] Comment on above: Performed By: #### L 100.0100, L500.2500 #### [facility] [address] [place], [address] Chloride [Moles/Vol] 102 mmol/L Normal 98-107 [facility] Comment on above: Performed By: #### L 100.0100, L500.2500 #### [facility] [address] [place], [address] CO2 [Moles/Vol] 27.0 mmol/L Normal 21.0-32.0 [facility] Comment on above: Performed By: #### L 100.0100, L500.2500 #### [facility] [address] [place], [address] Creatinine [Mass/Vol] 0.66 mg/dL Normal 0.55-1.02 [facility] Comment on above: Result Comment: The validity of the calculated GFR GFRAA in patients over 70 years has not been determined. Clinical correlation is essential. Performed By: #### L 100.0100, L500.2500 #### [facility] [address] [place], [address] ECRCL 57.00 ml/min Normal [facility] Comment on above: Performed By: #### L 100.0100, L500.2500 #### [facility] [address] [place], [address] EST GFR - AA 111 mL/min Normal >60 [facility] Comment on above: Result Comment: Afri can [place] GFR Calc Performed By: #### L 100.0100, L500.2500 #### [facility] [address] [place], [address] GAP 9 Normal 5-15 [facility] Comment on above: Performed By: #### L 100.0100, L500.2500 #### [facility] [address] [place], [address] GFR/1.73 sq M.predicted among non-blacks MDRD (S/P/Bld) [Vol rate/Area] 92 mL/min/{1.73_m2} Normal >60 [facility] Comment on above: Result Comment: Non- GFR Calc Performed By: #### L 100.0100, L500.2500 #### [facility] [address] [place], [address] Glucose [Mass/Vol] 131 mg/dL High 74-106 [facility] Comment on above: Result Comment: Fast ing Glucose result greater than or equal to 126 mg/dL suggests DIABETES MELLITUS per A.D.A. criteria. Performed By: #### L 100.0100, L500.2500 #### [facility] [address] [place], [address] Potassium [Moles/Vol] 3.8 mmol/L Normal 3.5-5.1 [facility] Comment on above: Performed By: #### L 100.0100, L500.2500 #### [facility] [address] [place], [address] Sodium [Moles/Vol] 138 mmol/L Normal 136-145 [facility] Comment on above: Performed By: #### L 100.0100, L500.2500 #### [facility] [address] [place], [address] Urea nitrogen [Mass/Vol] 15 mg/dL Normal 7-18 [facility] Comment on above: Performed By: #### L 100.0100, L500.2500 #### [facility] [address] [place], [address] CBC W/Diff, Automatedon 01-02 Absolute Lymph 1.13 X10 3/uL Normal 0.83-4.51 [facility] Comment on above: Performed By: #### L 100.0100, L500.2500 #### [facility] [address] [place], [address] Absolute Neut 7.1 X10 3/uL Normal 2.0-7.7 [facility] Comment on above: Performed By: #### L 100.0100, L500.2500 #### [facility] [address] [place], [address] Basophils/100 WBC (Bld) 0.7 % Normal 0-1 [facility] Comment on above: Performed By: #### L 100.0100, L500.2500 #### [facility] [address] [place], [address] Eosinophils/100 WBC (Bld) 0.0 % Normal 0-5 [facility] Comment on above: Performed By: #### L 100.0100, L500.2500 #### [facility] [address] [place], [address] Erythrocyte distribution width (RBC) [Ratio] 13.2 % Normal 11.6-14.6 [facility] Comment on above: Performed By: #### L 100.0100, L500.2500 #### [facility] [address] [place], [address] Hematocrit (Bld) [Volume fraction] 47.4 % High 37-47 [facility] Comment on above: Performed By: #### L 100.0100, L500.2500 #### [facility] [address] [place], [address] Hemoglobin (Bld) [Mass/Vol] 15.4 g/dL High 12.0-15.0 [facility] Comment on above: Performed By: #### L 100.0100, L500.2500 #### [facility] [address] [place], [address] IG% 0.400 Normal 0.0-0.9 [facility] Comment on above: Result Comment: IG% - Immature Granulocytes (promyelocytes, myelocytes and metamyelocytes) > 1% indicates that a LEFT SHIFT is Present. Performed By: #### L 100.0100, L500.2500 #### [facility] [address] [place], [address] Lymphocytes/100 WBC (Bld) 12.3 % Low 19-41 [facility] [facility] Comment on above: Performed By: #### L 100.0100, L500.2500 #### [facility] [address] [place], [address] MCH (RBC) [Entitic mass] 29.1 pg Normal 27.0-32.0 [facility] Comment on above: Performed By: #### L 100.0100, L500.2500 #### [facility] [address] [place], [address] MCHC (RBC) [Mass/Vol] 32.5 g/dL Normal 32-36 [facility] Comment on above: Performed By: #### L 100.0100, L500.2500 #### [facility] [address] [place], [address] MCV (RBC) [Entitic vol] 89.6 fL Normal 81-99 [facility] Comment on above: Performed By: #### L 100.0100, L500.2500 #### [facility] [address] [place], [address] Monocytes/100 WBC (Bld) 8.6 % Normal 0-10 [facility] Comment on above: Performed By: #### L 100.0100, L500.2500 #### [facility] [address] [place], [address] Neutrophils/100 WBC (Bld) 78.0 % High 47-70 [facility] Comment on above: Performed By: #### L 100.0100, L500.2500 #### [facility] [address] [place], [address] Nucleated RBC (Bld) [#/Vol] 0 10*3/uL Normal 0-5 [facility] Comment on above: Performed By: #### L 100.0100, L500.2500 #### [facility] [address] [place], [address] Platelet mean volume (Bld) [Entitic vol] 10.6 fL Normal 6.2-12.0 [facility] Comment on above: Performed By: #### L 100.0100, L500.2500 #### [facility] [address] [place], [address] Platelets (Bld) [#/Vol] 215 10*3/uL Normal 150-450 [facility] Comment on above: Performed By: #### L 100.0100, L500.2500 #### [facility] [address] [place], [address] RBC (Bld) [#/Vol] 5.29 10*6/uL Normal 4.2-5.4 [facility] Comment on above: Performed By: #### L 100.0100, L500.2500 #### [facility] [address] [place], [address] RDW SD 43.0 fl Normal 35.1-43.9 [facility] Comment on above: Performed By: #### L 100.0100, L500.2500 #### [facility] [address] [place], [address] WBC (Bld) [#/Vol] 9.2 10*3/uL Normal 4.4-11.0 [facility] Comment on above: Performed By: #### L 100.0100, L500.2500 #### [facility] [address] [place], [address] Emergency Department Summary on 01-13-2024 Emergency Department Summary [facility] Medical Records Department [address] [facility] [place] [address] Emergency Department Summary 01/13/24 MR#: [id number] Acct: [id number] Name: LEONEL ANDRE Rep #: [id number] : 1945 78 From: Calvin Andrews MD PCP: Dr. Femi Baeza MD Status:REG ER Location: ED HPI History of Present Illness Chief Complaint: Abd Pain Detail of Chief Complaint: Right flank pain radiating anteriorly per patient Informant: patient Onset/Context/Timing Onset: - (This is a chronic issue.) Context: Gradual Onset Timing: Intermittent Quality: Pain Location: Based on where patient points left lower paralumbar region Current Severity: Mild Maximum Severity: Moderate Worsened by: Using her arm push up to get off of the commode Relieved by: Nothing Associated Symptoms Associated Symptoms: She reports dysuria and frequency Narrative Narrative: Patient is a 78-year-old woman. She has a remote history of renal masses. These were removed by urologist at [facility] in the remote past. Apparently there was malignant cells noted in one of the masses. She states that she gets yearly CTs. She had a CT that was recently ordered by Dr. Negro and performed on December 11. The CAT scan revealed diverticulosis. There was also a persistent complex cyst involving the right kidney and unchanged with regards to size since previous exam. There is also postsurgical deformity of the left kidney without evidence of recurrent or residual tumor. She does report frequency and nocturia. She also reports dysuria. She denies hematuria. She has no known history of renal or ureterolithiasis. She states a couple of days ago she woke up drenched in sweat. She denies fever or chills. She denies nausea, vomiting or diarrhea. She does endorse chronic constipation. She has not noted a rash. There is no history of trauma. She denies weight gain or weight loss. Prior similar symptoms: Yes Recent Illness/Hospitalization: Yes (Saw Dr. Negro December [address] Johnson December 15.) [facility] Medical History Diverticular disease Primary hyperparathyroidism Sciatica Age related osteoporosis Bowel obstruction Scoliosis Lumbar radiculopathy Hx of renal cell carcinoma Osteoporosis GERD (gastroesophageal reflux disease) Hypoglycemia HTN (hypertension) Bladder prolapse Home Medications ???Medication ???Instructions ???Recorded ???Last Taken ???Type cholecalciferol (vitamin D3) 25 2,000 unit PO DAILY 12/26/15 Unknown History mcg (1,000 unit) tablet (Vitamin D3) losartan 25 mg tablet 25 mg PO DAILY 12/26/15 Unknown History oxybutynin chloride 5 mg tablet 5 mg PO BID 12/26/15 Unknown History diltiazem HCl 180 mg capsule,24 360 mg PO DAILY 09/08/20 Unknown History hr,extended release lorazepam 0.5 mg tablet 0.5 mg PO DAILY 09/08/20 Unknown History acetaminophen 500 mg tablet 500 mg PO Q6H PRN pain 08/23/22 Unknown History (Tylenol Extra Strength) cetirizine 5 mg tablet 5 mg PO DAILY PRN allergy symptoms 08/23/22 Unknown History fluticasone propionate 50 1 spray intranasal DAILY 08/23/22 Unknown History mcg/actuation nasal spray,suspension omeprazole 40 mg capsule,delayed 40 mg PO DAILY 08/23/22 Unknown History release sodium chloride 0.65 % nasal spray 1 spray intranasal ONCE 08/23/22 Unknown History aerosol denosumab 60 mg/mL subcutaneous 60 mg subcut [id number] #1 mL 10/03/22 Unknown Rx syringe (Prolia) Lactobacillus rhamnosus GG 20 1 cell PO DAILY 12/16/23 Unknown History billion cell capsule (Probiotic Digestive Care) sennosides 17.2 mg tablet (Senokot 17.2 mg PO QDAY 12/16/23 Unknown History Extra Strength) hydrocodone-acetaminophen 5-325mg 1 tab PO Q6H PRN PRN Pain 3 days 01/13/24 Unknown Rx 5mg-325mg #10 TABLETS phenazopyridine 200 mg tablet 200 mg PO TID #10 tabs 01/13/24 Unknown Rx (Pyridium) Allergy/AdvReac Type Severity Reaction Status Date / Time lisinopril Allergy Swelling Verified 01/13/24 13:04 esomeprazole (From Nexium) AdvReac Nausea/Vom/ Verified 01/13/24 13:04 Diarrhea Family History Father Alcoholism Brother Alcoholism Mother Arthritis Hypertension Osteoporosis Surgical History History of knee replacement H/O partial nephrectomy Social History Smoking Status: Former smoker alcohol intake: never what type of physical activity do you participate in: bicycling ROS ROS ED Constitutional Constitutional ED: Reports sweats; Denies chills, fever(s), subjective or weight loss Eyes Eyes: Denies blurry vision or change in vision ENT ENT ED: Denies ear pain, rhinorrhea or sore throat (more content not included)... Normal [facility] Urinalysis, Completeon 01-12 BACTERIA 0 SEEN Normal None Seen [facility] Comment on above: Order Comment: CLEAN CATCH Performed By: #### L 400.0001 #### [facility] [address] [place], [place], [address] EPI,SQUAMOUS 0 SEEN Normal - [facility] Comment on above: Order Comment: CLEAN CATCH Performed By: #### L 400.0001 #### [facility] [address] [place], [address] Mucus Ql (Urine sed) 0 SEEN Normal [facility] Comment on above: Order Comment: CLEAN CATCH Performed By: #### L 400.0001 #### [facility] [address] [place], [address] RBC 0 SEEN Normal 0-5 [facility] Comment on above: Order Comment: CLEAN CATCH Performed By: #### L 400.0001 #### [facility] [address] [place], [address] WBC 0 SEEN Normal 0-5 [facility] Comment on above: Order Comment: CLEAN CATCH Performed By: #### L 400.0001 #### [facility] [address] [place], [address] Endocrinology Visit Reporton 12-16-2023 Endocrinology Visit Report [facility] [address] [place], [place] [address] OFFICE VISIT Date of Service: 12/16/23 MR#: [id number] Acct: [id number] Name: LEONEL ANDRE Rep #: [id number] : 1945 Provider: Rebecca Hayes Age/Sex: 78/F [place] [facility] [place]: Signed Intake Vital Signs 08/23/22 14:12 08/31/23 13:32 12/16/23 12:52 Height 5 ft 4 in 5 ft 4 in 5 ft 4 in Weight: 142 lb BMI 24.3 BP 167/75 H Blood Pressure Location Rt brachial Position Sitting Pulse 84 Pulse Source Monitor Pulse Oximetry (%) 97 Oxygen Delivery Method room air Intake Visit Reasons: 16 M FU/PROLIA-B B Chief Complaint: Bone Allergies lisinopril Allergy (Verified 11/22/23 14:39) Swelling esomeprazole (From Nexium) Adverse Reaction (Verified 11/22/23 14:39) Nausea/Vom/Diarrhea Medications ???Medication ???Instructions ???Recorded ???Confirmed ???Type cholecalciferol (vitamin D3) 25 2,000 unit PO DAILY 12/26/15 12/16/23 History mcg (1,000 unit) tablet (Vitamin D3) losartan 25 mg tablet 25 mg PO DAILY 12/26/15 12/16/23 History oxybutynin chloride 5 mg tablet 5 mg PO BID 12/26/15 12/16/23 History diltiazem HCl 180 mg capsule,24 360 mg PO DAILY 09/08/20 12/16/23 History hr,extended release lorazepam 0.5 mg tablet 0.5 mg PO DAILY 09/08/20 12/16/23 History acetaminophen 500 mg tablet 500 mg PO Q6H PRN pain 08/23/22 12/16/23 History (Tylenol Extra Strength) cetirizine 5 mg tablet 5 mg PO DAILY PRN allergy symptoms 08/23/22 12/16/23 History fluticasone propionate 50 1 spray intranasal DAILY 08/23/22 12/16/23 History mcg/actuation nasal spray,suspension omeprazole 40 mg capsule,delayed 40 mg PO DAILY 08/23/22 12/16/23 History release sodium chloride 0.65 % nasal spray 1 spray intranasal ONCE 08/23/22 12/16/23 History aerosol denosumab 60 mg/mL subcutaneous 60 mg subcut [id number] #1 mL 10/03/22 12/16/23 Rx syringe (Prolia) Lactobacillus rhamnosus GG 20 cell PO 12/16/23 12/16/23 History billion cell capsule (Probiotic Digestive Care) sennosides 17.2 mg tablet (Senokot 17.2 mg PO QDAY 12/16/23 12/16/23 History Extra Strength) Have you fallen in the past year?: No PFSH Medical History (Updated 12/16/23 @ 13:[address] César Johnson MD) Diverticular disease Primary hyperparathyroidism Sciatica Age related osteoporosis Bowel obstruction Scoliosis Lumbar radiculopathy Hx of renal cell carcinoma Osteoporosis GERD (gastroesophageal reflux disease) Hypoglycemia HTN (hypertension) Bladder prolapse Surgical History History of knee replacement H/O partial nephrectomy Family History Father Alcoholism Brother Alcoholism Mother Arthritis Hypertension Osteoporosis Social History Smoking Status: Former smoker alcohol intake: never what type of physical activity do you participate in: bicycling HPI HPI Chief Complaint: Bone Details: LEONEL ANDRE, is a 78 F who presents to the office today for follow up of osteoporosis. She has a T-score of -2.6 She has received a full course of bisphosphonates in the past and now she is on Prolia. She reports that she had a recent bone density that wasn't good, but I don't have a copy. She has history of renal cell ca. She has cysts on her kidney. She recently had a CT scan and is worried. She has been feverish, URI symptoms, abdominal cramping. CT showed stable cysts, diverticular disease and a lot of stool. She has primary hyperparathyroidism, I am trying to avoid surgery. Last calcium was 10.2 in August. ROS Const Constitutional: Positive for fatigue, fever(s) and malaise; No anorexia, excessive sweating, night sweats, weight change or change in appetite Eyes Eyes: No change in vision ENT ENT: No hearing loss, nasal congestion or difficulty swallowing Cardio Cardiology: No chest pain at rest, excessive sweating, shortness of breath, dyspnea on exertion, irregular heart rhythm or palpitations Musc Musculoskeletal: Positive for back pain; No abnormal gait, joint pain, numbness or tingling Neuro Neurology: No abnormal gait, memory loss, numbness or tingling Psych Psychiatric: No change in appetite, No memory loss and No Thoughts of harming yourself/Others Resp Respiratory: No cough, chest congestion or shortness of breath Gastro GI: Positive for bloating, constipation and cramping; No abdominal pain, diarrhea or difficulty swallowing Genitourinary-Female: No burning urination Skin Skin: No hair loss in leg, itchy eyes, rash or skin ulcer Endo Endocrine: Positive for fatigue; No excessive sweating or tabby (more content not included)... Normal [facility] CREATININE FINGERSTICKon CREATININE WB < 1.0 Normal 0.55-1.02 [facility] Comment on above: Performed By: #### L 500.2500, L100.0100 #### [facility] [address] [place], [address] CT Abd/Pelvis W/WO Contrasto n 12-12-2023 CT Abd/Pelvis W/WO Contrast [facility] Imaging Services [address] [place] [address] CT Abd/Pelvis W/WO Contrast MR#: [id number] Acct: [id number] Name: LEONEL ANDRE Rep #: [id number] : 1945 F 78 From: Casey Rick MD PCP: Dr. Femi Baeza MD Status: REG CLI Study: CT Abd/Pelvis W/WO Contrast Date of Exam: 12/02 Exam# [id number] Ordering Dr: Peewee Negro MD :[id number] STUDY: CT ABDOMEN AND PELVIS WITH AND WITHOUT CONTRAST REASON FOR EXAM: Female, 78 years old. CYST OF KIDNEY RADIATION DOSAGE (If Supplied By Facility): CTDIvol = ( 12.23 ) mGy, DLP = ( 924.36 ) mGycm TECHNIQUE: Transaxial images were obtained from the dome of the diaphragm to the symphysis pubis without oral contrast. IV 100mL Isovue-370 was administered. Sagittal and coronal images were reconstructed. Individualized dose optimization techniques were used for this CT. COMPARISON: December 12, 2022 FINDINGS: Mild chronic interstitial thickening at left base.. Large hiatal hernia is noted displacing the heart anteriorly towards the right Normal liver. Gallbladder has been removed surgically. Normal spleen. Normal pancreas. Normal bilateral adrenal glands. Right kidney is not obstructed. There is a complex cyst in the lateral cortex measuring 1.25 x 1.83 cm portion of which demonstrates enhancement following contrast administration although not changed in size since prior exam. Postsurgical deformity of the left kidney. Normal visualized stomach. Normal small intestine. Extensive fecal retention noted within the colon . Diverticular disease of the colon without evidence for acute diverticulitis. No evidence for acute appendicitis. Atherosclerotic changes of the aorta without evidence for aneurysm. Normal inferior vena cava. Normal retroperitoneum. Poorly distended thick walled bladder which cannot be adequately evaluated Normal abdominal wall. Lumbar spine demonstrates severe scoliosis and degenerative change. CT/CT Abd/Pelvis W/WO Contrast IMPRESSION: Persistent complex cyst in the right kidney not changed in size appreciably since previous exam. MRI would be helpful for further evaluation if indicated Postsurgical deformity of the left kidney without evidence for recurrent or residual tumor Electronically Signed: Casey Rick MD at 19:26 EDT Reading Location ID and State: [address] [place] [address] Tel , Service support , CC: Dr. Peewee Negro MD; Dr. Femi Baeza MD Mathematics Faculty Member: Signed Normal [facility] Urgent Care Visit Reporton 0 11-22-2023 Urgent Care Visit Report [facility] [address], [address] [place] [address] OFFICE VISIT Date of Service: 11/22/23 MR#: [id number] Acct: [id number] Name: LEONEL ANDRE Rep #: [id number] : 1945 Provider: ALBINA Maldonado Age/Sex: 78/F Location: 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 Is patient in pain?: No Allergies lisinopril Allergy (Verified 11/22/23 14:39) Swelling esomeprazole (From Nexium) Adverse Reaction (Verified 11/22/23 14:39) Nausea/Vom/Diarrhea Medications ???Medication ???Instructions ???Recorded ???Confirmed ???Type cholecalciferol (vitamin D3) 25 2,000 unit PO DAILY 12/26/15 08/28/23 History mcg (1,000 unit) tablet (Vitamin D3) losartan 25 mg tablet 25 mg PO DAILY 12/26/15 08/28/23 History oxybutynin chloride 5 mg tablet 5 mg PO BID 12/26/15 08/28/23 History diltiazem HCl 180 mg capsule,24 360 mg PO DAILY 09/08/20 08/28/23 History hr,extended release lorazepam 0.5 mg tablet 0.5 mg PO DAILY 09/08/20 08/28/23 History acetaminophen 500 mg tablet 500 mg PO Q6H PRN pain 08/23/22 08/28/23 History (Tylenol Extra Strength) cetirizine 5 mg tablet 5 mg PO DAILY PRN allergy symptoms 08/23/22 08/28/23 History fluticasone propionate 50 1 spray intranasal DAILY 08/23/22 08/28/23 History mcg/actuation nasal spray,suspension omeprazole 40 mg capsule,delayed 40 mg PO DAILY 08/23/22 08/28/23 History release sodium chloride 0.65 % nasal spray 1 spray intranasal ONCE 08/23/22 08/28/23 History aerosol denosumab 60 mg/mL subcutaneous 60 mg subcut [id number] #1 mL 10/03/22 08/28/23 Rx syringe (Prolia) methylprednisolone 4 mg tablets in 4 mg PO PER PKG DIR 6 days #21 tabs 11/22/23 11/22/23 Rx a dose pack (Medrol (Darren)) Is last menstrual period known: No Post menopausal: Yes Patient : No Have you fallen in the past year?: No Nurse's Note: green mucus, ears plugged, face swelling x 3 days. concern for sinus infection, declines covid testing. [facility] Medical History Primary hyperparathyroidism Sciatica Age related osteoporosis Bowel obstruction Scoliosis Lumbar radiculopathy Hx of renal cell carcinoma Osteoporosis GERD (gastroesophageal reflux disease) Hypoglycemia HTN (hypertension) Bladder prolapse Surgical History History of knee replacement H/O partial nephrectomy Family History Father Alcoholism Brother Alcoholism Mother Arthritis Hypertension Osteoporosis Social History Smoking Status: Former smoker alcohol intake: never what type of physical activity do you participate in: bicycling [facility] HPI Chief Complaint: green mucus, ears plugged, face swelling Details: LEONEL ANDRE, is a 78 F who presents to the office today for complaint of green mucus, plugged ears and facial swelling for the past several days. Patient states she is having increased seasonal allergies due to the ragweed and has been trying [id number] medications with little to no relief. Patient denies shortness of breath, difficulty breathing or chest pain. No other associated symptoms or alleviating/aggravating factors. ROS Const Constitutional: No other (6 system ROS completed with pertinent findings in the HPI otherwise normal.) Exam Const General: cooperative and healthy appearing HENMT Head: normal to inspection Ears: hearing grossly normal bilaterally, TM's normal bilaterally and EAC's normal Nose: nasal discharge purulent Face and sinus: sinus tenderness frontal and maxillary Mouth: oral mucosae normal Throat: abnormal tonsil bilaterally erythema and hypertrophy 1+ and postnasal drainage Resp Effort Inspection: normal respiratory effort Auscultation: Bilateral: Clear to Auscultation Cardio Palpation: normal PMI Rate: regular rate Rhythm: regular rhythm Neuro General: patient alert and CN's II-XI intact bilaterally Psych Appearance: grossly normal Mental Status: mental status grossly normal Coding Level of Care Code Off vis,new,level 3 Diagnoses Allergic rhinosinusitis J30.9 Assessment and Plan Assessment and Plan (1) Allergic rhinosinusitis: Status: Acute Medications: New methylprednisolone (Medrol ( (more content not included)... Normal [facility] 11-13-2023 [facility] Telephone (INTMWS) LEONEL ANDRE ([id number]) 1945 F Date Time Provider Department 11/13/23 FEMI BAEZA INTWS During your visit today, we recorded the following information about you: Madelaine Griffiths LPN 11/13/2023 8:12 AM Signed ----- Message from Xuan Brandon APRN.SNUFF MAKER sent at 11/13/2023 7:57 AM EDT ----- Please let the patient know there has been a signficant decrease in her bone density, especially in the spine. Recommend follow-up with international organizer concerning these results since she is managing the Prolia injections/osteoporosis BRANDAN Oquendo Helen E, LPN 11/13/2023 8:15 AM Signed Patient notified of below results/recommendations, has an appt with Endo next month. Madelaine rGiffiths LPN Allergies As of Date: 11/13/2023 Noted Allergy Reaction DUST 11/08/2004 LEXAPRO (ESCITALOPRAM OXALATE) 12/26/2015 14 - Other: See Comments Comments: Dizziness, shakey LISINOPRIL 05/29/2010 7 - Swelling Comments: Swelling in her throat. MOLD 11/08/2004 NEXIUM (ESOMEPRAZOLE MAGNESIUM) 11/08/2004 11 - Vomiting NEXIUM (ESOMEPRAZOLE MAGNESIUM) 10/26/2016 6 - Diarrhea Comments: but was able to take pantoprazole RAGWEED 11/08/2004 Date Reviewed: 11/08/2023 Reviewed by: César Dominguez MA - Fully Assessed Prescriptions as of 11/13/2023 - nitrofurantoin monohydrate and macrocrystal (MACROBID) 100 mg capsule Take 1 capsule by mouth two times a day with meals for 7 days. - dilTIAZem CR (TAZTIA XT) 180 mg 24 hr capsule Take 2 capsules by mouth once daily. Patient should start on November 03, 2023. - LORazepam (ATIVAN) 0.5 mg Take 1 tablet by mouth once daily as needed (anxiety) for up to 90 days. 3 months supply. - losartan (COZAAR) 25 mg tablet Take 1 tablet by mouth two times a day. - oxybutynin (DITROPAN) 5 mg tablet Take 1 tablet by mouth twice daily. - omeprazole (PRILOSEC) 40 mg capsule Take 1 capsule by mouth once daily. - Cholecalciferol, Vitamin D3, 50 mcg (2,000 unit) cap Take 1 capsule by mouth once daily. Prescribed by endocrinology (Dr. César Johnson) - denosumab (PROLIA) 60 mg/mL Once every 6 months. Prescribed by endocrinology (Dr. César Johnson) - Dextrin (EASY FIBER) 3 gram/3.5 gram powd Take 3 g by mouth once daily. Mixed with water. - Sennosides (SENOKOT EXTRA STRENGTH) 17.2 mg tab Take 1 tablet by mouth daily with lunch AND 2 tablets daily at bedtime. - lactobacillus comb no.10 (PROBIOTIC) 20 billion cell cap Take 1 capsule by mouth daily at bedtime. - fexofenadine (MUCINEX ALLERGY) 180 mg tablet Take 180 mg by mouth once daily. - fluticasone (FLONASE) 50 mcg/actuation nasal spray Use 2 Sprays in each nostril once daily. Rinse mouth after use. - ACETAMINOPHEN (TYLENOL ARTHRITIS ORAL) Take by mouth. Problem List As Of Date 11/13/2023 Noted Resolved Essential hypertension [I10] 11/08/2004 Allergic rhinitis, cause unspecified [J30.9] 11/08/2004 01/21/2017 Degeneration of intervertebral disc, site unspe*11/08/2004 12/07/2013 Postmenopausal atrophic vaginitis [N95.2] 11/08/2004 05/28/2019 ESOPHAGEAL REFLUX [K21.9] 11/08/2004 Pain in joint, pelvic region and thigh [M25.559]06/05/2005 09/15/2012 Vitamin D deficiency [E55.9] 05/22/2007 Constipation [K59.00] 01/17/2009 Plantar fasciitis [M72.2] 06/20/2009 06/22/2011 Osteoarthritis of knee [M17.9] 12/29/2009 02/11/2012 Urinary frequency [R35.0] 06/29/2010 06/22/2011 Persistent disorder of initiating or maintainin*06/29/2010 05/28/2019 Scoliosis [M41.9] 08/29/2011 Osteopenia [M85.80] 10/03/2011 12/03/2016 Carcinoma of kidney, renal cell 10/27/2011 12/07/2013 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 [Z90*10/27/2011 09/15/2012 Urge incontinence [N39.41] 11/28/2011 Osteoarthrosis, unspecified whether generalized*02/13/2012 02/13/2012 Knee joint replacement by other means [Z96.659] 03/19/2012 05/28/2019 History of renal cell carcinoma [Z85.528] 01/21/2017 Uterovaginal prolapse [N81.4] 10/01/2013 05/28/2019 Osteoporosis [M81.0] 12/23/2014 Anxiety [F41.9] 01/04/2016 Pain in right hip [M25.551] 07/26/2020 Radiculopathy, lumbar region [M54.16] 07/26/2020 Mass of right kidney [N28.89] 06/19/2021 Encounter Status:Closed by MADELAINE GRIFFITHS on 11/13/23 Normal [facility] BD DXA - AXIAL SKELETONon BD DXA - AXIAL SKELETON * * *Final Report* * * DATE OF EXAM: Nov 11 2023 2:23PM WRB [id number] - BD DXA - AXIAL SKELETON / PROCEDURE REASON: Osteoporosis, unspecified osteoporosis type, unspecified pathological fracture p * * * * Physician Interpretation * * * * EXAMINATION: DXA BONE DENSITOMETRY BD DXA - AXIAL SKELETON, BD DXA TRABECLR BONE SCORE (TBS) PATIENT DEMOGRAPHICS: Age: 78 years, Gender: Female SCANNER INFORMATION: DXA Model: ClientShow - DDN Discovery C [id number] Date Scanned: 11/11/2023 2:23 PM CLINICAL HISTORY: DIAGNOSTIC Osteoporosis, unspecified osteoporosis type, unspecified pathological fracture presence . RISK FACTORS FOR OSTEOPOROSIS AND ASSOCIATED FRACTURES REPORTED BY THIS PATIENT: Please refer to Bone Health Questionnaire in the EMR CURRENT THERAPY: Please refer to Bone Health Questionnaire in the EMR TECHNICAL LIMITATIONS: Degenerative disease of the spine RESULTS: Lumbar spine (L1, L2, L3, L4): 0.923 g/cm2, T-score -1.1, Z-score 1.4 Lumbar spine: 2015: 0.857 g/cm2 There has been a 7.7% interval increase in bone mineral density Right Femoral Neck: 0.512 g/cm2, T-score -3.0, Z-score -0.8 Right Femoral Neck: 2015: 0.600 g/cm2 There has been a 14.6% interval decrease in bone mineral density. Right Total Hip: 0.609 g/cm2, T-score -2.7, Z-score -0.8 Right Total Hip: 2015: 0.714 g/cm2 There has been a 14.7% interval decrease in bone mineral density. Left Femoral Neck: 0.634 g/cm2, T-score -1.9, Z-score 0.3 Left Femoral Neck: 2015: 0.653 g/cm2 There has been a 3% interval decrease in bone mineral density. Left Total Hip: 0.658 g/cm2, T-score -2.3, Z-score -0.4 Left Total Hip: 2015: 0.643 g/cm2 There has been a 2.3% interval increase in bone mineral density CHANGE IS STATISTICALLY SIGNIFICANT IN THE SPINE OR HIP IF GREATER THAN OR EQUAL TO 0.04 g/cm2 VERTEBRAL FRACTURE ASSESSMENT Not performed. TRABECULAR BONE ASSESSMENT TBS score: 1.266 Bone micro-architecture: Partially degraded (1.231 - 1.310) IMPRESSION: THE LOWEST T-SCORE IS -3.0 IN THE RIGHT HIP 1) DIAGNOSIS (based on BMD alone): OSTEOPOROSIS Caution: Medical conditions other than osteoporosis may cause low bone density, such as osteomalacia or renal osteodystrophy. Clinical correlation is necessary. 2) FRACTURE RISK (Based on TBS adjusted FRAX): 10-year absolute fracture risk: - major osteoporotic fracture = 21 % - hip fracture = 8.6 % - A diagnosis of Osteoporosis, a 10 year probability of hip fracture greater than or equal to 3% or a 10 year probability of any major osteoporosis-related fracture greater than or equal to 20% should be considered for treatment. - DXA scanner generated FRAX calculations may slightly differ from online FRAX calculations due to differences in software versions. - All recommendations and calculations are to be considered as guidelines and should not replace sound clinical judgement - Caution: Fracture risk may be increased independent of BMD in patients with corticosteroid use, age greater than 65 years, or a history of prior fragility fracture. RECOMMENDATIONS: Follow-up in 2 years or as clinically indicated. Patients that are taking corticosteroids, are transplant recipients or have hyperparathyroidism should have annual follow-up. Follow-up scans should always be done on the same machine for accurate comparison. FOR MORE INFORMATION ABOUT DIAGNOSIS AND TREATMENT: Center for Osteoporosis and Metabolic Bone Disease:? [email or web address]/arthritis/osteo National Osteoporosis Foundation:? www.nof.org International Society of Clinical Densitometry www.iscd.org Mathematics Faculty Member: VASU Transcribe Date/Time: Nov 11 2023 2:28P Dictated by : RAMON MORENO MD This examination was interpreted and the report reviewed and electronically signed by: RAMON MORENO MD on Nov 11 2023 2:32PM EST [id number] -3.0 Normal [facility] BD DXA TRABECLR BONE SCORE ( TBS)on 11-11-2023 BD DXA TRABECLR BONE SCORE (TBS) * * *Final Report* * * DATE OF EXAM: Nov 11 2023 2:23PM [id number] [id number] - BD DXA TRABECLR BONE SCORE (TBS) / PROCEDURE REASON: Osteoporosis, unspecified osteoporosis type, unspecified pathological fracture p * * * * Physician Interpretation * * * * EXAMINATION: DXA BONE DENSITOMETRY BD DXA - AXIAL SKELETON, BD DXA TRABECLR BONE SCORE (TBS) PATIENT DEMOGRAPHICS: Age: 78 years, Gender: Female SCANNER INFORMATION: DXA Model: ClientShow - License Buddy [id number] Date Scanned: 11/11/2023 2:23 PM CLINICAL HISTORY: DIAGNOSTIC Osteoporosis, unspecified osteoporosis type, unspecified pathological fracture presence . RISK FACTORS FOR OSTEOPOROSIS AND ASSOCIATED FRACTURES REPORTED BY THIS PATIENT: Please refer to Bone Health Questionnaire in the EMR CURRENT THERAPY: Please refer to Bone Health Questionnaire in the EMR TECHNICAL LIMITATIONS: Degenerative disease of the spine RESULTS: Lumbar spine (L1, L2, L3, L4): 0.923 g/cm2, T-score -1.1, Z-score 1.4 Lumbar spine: 2015: 0.857 g/cm2 There has been a 7.7% interval increase in bone mineral density Right Femoral Neck: 0.512 g/cm2, T-score -3.0, Z-score -0.8 Right Femoral Neck: 2015: 0.600 g/cm2 There has been a 14.6% interval decrease in bone mineral density. Right Total Hip: 0.609 g/cm2, T-score -2.7, Z-score -0.8 Right Total Hip: 2015: 0.714 g/cm2 There has been a 14.7% interval decrease in bone mineral density. Left Femoral Neck: 0.634 g/cm2, T-score -1.9, Z-score 0.3 Left Femoral Neck: 2015: 0.653 g/cm2 There has been a 3% interval decrease in bone mineral density. Left Total Hip: 0.658 g/cm2, T-score -2.3, Z-score -0.4 Left Total Hip: 2015: 0.643 g/cm2 There has been a 2.3% interval increase in bone mineral density CHANGE IS STATISTICALLY SIGNIFICANT IN THE SPINE OR HIP IF GREATER THAN OR EQUAL TO 0.04 g/cm2 VERTEBRAL FRACTURE ASSESSMENT Not performed. TRABECULAR BONE ASSESSMENT TBS score: 1.266 Bone micro-architecture: Partially degraded (1.231 - 1.310) IMPRESSION: THE LOWEST T-SCORE IS -3.0 IN THE RIGHT HIP 1) DIAGNOSIS (based on BMD alone): OSTEOPOROSIS Caution: Medical conditions other than osteoporosis may cause low bone density, such as osteomalacia or renal osteodystrophy. Clinical correlation is necessary. 2) FRACTURE RISK (Based on TBS adjusted FRAX): 10-year absolute fracture risk: - major osteoporotic fracture = 21 % - hip fracture = 8.6 % - A diagnosis of Osteoporosis, a 10 year probability of hip fracture greater than or equal to 3% or a 10 year probability of any major osteoporosis-related fracture greater than or equal to 20% should be considered for treatment. - DXA scanner generated FRAX calculations may slightly differ from online FRAX calculations due to differences in software versions. - All recommendations and calculations are to be considered as guidelines and should not replace sound clinical judgement - Caution: Fracture risk may be increased independent of BMD in patients with corticosteroid use, age greater than 65 years, or a history of prior fragility fracture. RECOMMENDATIONS: Follow-up in 2 years or as clinically indicated. Patients that are taking corticosteroids, are transplant recipients or have hyperparathyroidism should have annual follow-up. Follow-up scans should always be done on the same machine for accurate comparison. FOR MORE INFORMATION ABOUT DIAGNOSIS AND TREATMENT: [facility] [place] Center for Osteoporosis and Metabolic Bone Disease:? [email or web address]/arthritis/osteo National Osteoporosis Foundation:? www.nof.org International Society of Clinical Densitometry www.iscd.org Mathematics Faculty Member: VASU Transcribe Date/Time: Nov 11 2023 2:28P Dictated by : RAMON MORENO MD This examination was interpreted and the report reviewed and electronically signed by: RAMON MORENO MD on Nov 11 2023 2:32PM EST [id number] -3.0 Normal [facility] DXA Femur [T-score] Tj gil 11-11-2023 * * *Final Report* * * DATE OF EXAM: Nov 11 2023 2:23PM [id number] - BD DXA TRABECLR BONE SCORE (TBS) / PROCEDURE REASON: Osteoporosis, unspecified osteoporosis type, unspecified pathological fracture p * * * * Physician Interpretation * * * * EXAMINATION: DXA BONE DENSITOMETRY BD DXA - AXIAL SKELETON, BD DXA TRABECLR BONE SCORE (TBS) PATIENT DEMOGRAPHICS: Age: 78 years, Gender: Female SCANNER INFORMATION: DXA Model: ClientShow - License Buddy [id number] Date Scanned: 11/11/2023 2:23 PM CLINICAL HISTORY: DIAGNOSTIC Osteoporosis, unspecified osteoporosis type, unspecified pathological fracture presence . RISK FACTORS FOR OSTEOPOROSIS AND ASSOCIATED FRACTURES REPORTED BY THIS PATIENT: Please refer to Bone Health Questionnaire in the EMR CURRENT THERAPY: Please refer to Bone Health Questionnaire in the EMR TECHNICAL LIMITATIONS: Degenerative disease of the spine RESULTS: Lumbar spine (L1, L2, L3, L4): 0.923 g/cm2, T-score -1.1, Z-score 1.4 Lumbar spine: 2015: 0.857 g/cm2 There has been a 7.7% interval increase in bone mineral density Right Femoral Neck: 0.512 g/cm2, T-score -3.0, Z-score -0.8 Right Femoral Neck: 2015: 0.600 g/cm2 There has been a 14.6% interval decrease in bone mineral density. Right Total Hip: 0.609 g/cm2, T-score -2.7, Z-score -0.8 Right Total Hip: 2015: 0.714 g/cm2 There has been a 14.7% interval decrease in bone mineral density. Left Femoral Neck: 0.634 g/cm2, T-score -1.9, Z-score 0.3 Left Femoral Neck: 2015: 0.653 g/cm2 There has been a 3% interval decrease in bone mineral density. Left Total Hip: 0.658 g/cm2, T-score -2.3, Z-score -0.4 Left Total Hip: 2015: 0.643 g/cm2 There has been a 2.3% interval increase in bone mineral density CHANGE IS STATISTICALLY SIGNIFICANT IN THE SPINE OR HIP IF GREATER THAN OR EQUAL TO 0.04 g/cm2 VERTEBRAL FRACTURE ASSESSMENT Not performed. TRABECULAR BONE ASSESSMENT TBS score: 1.266 Bone micro-architecture: Partially degraded (1.231 - 1.310) DIVISION OF RADIOLOGY Provider, Silver Hess - 11/11/2023 * * *Final Report* * * DATE OF EXAM: Nov 11 2023 2:23PM WR 0801 - BD DXA TRABECLR BONE SCORE (TBS) / PROCEDURE REASON: Osteoporosis, unspecified osteoporosis type, unspecified pathological fracture p * * * * Physician Interpretation * * * * EXAMINATION: DXA BONE DENSITOMETRY BD DXA - AXIAL SKELETON, BD DXA TRABECLR BONE SCORE (TBS) PATIENT DEMOGRAPHICS: Age: 78 years, Gender: Female SCANNER INFORMATION: DXA Model: ClientShow - License Buddy [id number] Date Scanned: 11/11/2023 2:23 PM CLINICAL HISTORY: DIAGNOSTIC Osteoporosis, unspecified osteoporosis type, unspecified pathological fracture presence . RISK FACTORS FOR OSTEOPOROSIS AND ASSOCIATED FRACTURES REPORTED BY THIS PATIENT: Please refer to Bone Health Questionnaire in the EMR CURRENT THERAPY: Please refer to Bone Health Questionnaire in the EMR TECHNICAL LIMITATIONS: Degenerative disease of the spine RESULTS: Lumbar spine (L1, L2, L3, L4): 0.923 g/cm2, T-score -1.1, Z-score 1.4 Lumbar spine: 2015: 0.857 g/cm2 There has been a 7.7% interval increase in bone mineral density Right Femoral Neck: 0.512 g/cm2, T-score -3.0, Z-score -0.8 Right Femoral Neck: 2015: 0.600 g/cm2 There has been a 14.6% interval decrease in bone mineral density. Right Total Hip: 0.609 g/cm2, T-score -2.7, Z-score -0.8 Right Total Hip: 2015: 0.714 g/cm2 There has been a 14.7% interval decrease in bone mineral density. Left Femoral Neck: 0.634 g/cm2, T-score -1.9, Z-score 0.3 Left Femoral Neck: 2015: 0.653 g/cm2 There has been a 3% interval decrease in bone mineral density. Left Total Hip: 0.658 g/cm2, T-score -2.3, Z-score -0.4 Left Total Hip: 2015: 0.643 g/cm2 There has been a 2.3% interval increase in bone mineral density CHANGE IS STATISTICALLY SIGNIFICANT IN THE SPINE OR HIP IF GREATER THAN OR EQUAL TO 0.04 g/cm2 VERTEBRAL FRACTURE ASSESSMENT Not performed. TRABECULAR BONE ASSESSMENT TBS score: 1.266 Bone micro-architecture: Partially degraded (1.231 - 1.310) IMPRESSION IMPRESSION: THE LOWEST T-SCORE IS -3.0 IN THE RIGHT HIP 1) DIAGNOSIS (based on BMD alone): OSTEOPOROSIS Caution: Medical conditions other than osteoporosis may cause low bone density, such as osteomalacia or renal osteodystrophy. Clinical correlation is necessary. 2) FRACTURE RISK (Based on TBS adjusted FRAX): 10-year absolute fracture risk: - major osteoporotic fracture = 21 % - hip fracture = 8.6 % - A diagnosis of Osteoporosis, a 10 year probability of hip fracture greater than or equal to 3% or a 10 year probability of any major osteoporosis-related fracture greater than or equal to 20% should be considered for treatment. - DXA scanner generated FRAX calculations may slightly differ from online FRAX calculations due to differences in software versions. - All recommendations and calculations are to be considered as guidelines and should not replace sound clinical judgement - Caution: Fracture risk may be increased independent of BMD in patients with corticosteroid use, age greater than 65 years, or a history of prior fragility fracture. RECOMMENDATIONS: Follow-up in 2 years or as clinically indicated. Patients that are taking corticosteroids, are transplant recipients or have hyperparathyroidism should have annual follow-up. Follow-up scans should always be done on the same machine for accurate comparison. FOR MORE INFORMATION ABOUT DIAGNOSIS AND TREATMENT: Center for Osteoporosis and Metabolic Bone Disease:? [email or web address]/arthritis/osteo National Osteoporosis Foundation:? www.nof.org International Society of Clinical Densitometry www.iscd.org Mathematics Faculty Member: VASU Transcribe Date/Time: Nov 11 2023 2:28P Dictated by : RAMON MORENO MD This examination was interpreted and the report reviewed and electronically signed by: RAMON MORENO MD on Nov 11 2023 2:32PM EST [facility] DXA Skeletal system.axial Vi ews for bone densityon 11-11-2023 * * *Final Report* * * DATE OF EXAM: Nov 11 2023 2:23PM WRB [id number] - BD DXA - AXIAL SKELETON / PROCEDURE REASON: Osteoporosis, unspecified osteoporosis type, unspecified pathological fracture p * * * * Physician Interpretation * * * * EXAMINATION: DXA BONE DENSITOMETRY BD DXA - AXIAL SKELETON, BD DXA TRABECLR BONE SCORE (TBS) PATIENT DEMOGRAPHICS: Age: 78 years, Gender: Female SCANNER INFORMATION: DXA Model: ClientShow - License Buddy C [id number] Date Scanned: 11/11/2023 2:23 PM CLINICAL HISTORY: DIAGNOSTIC Osteoporosis, unspecified osteoporosis type, unspecified pathological fracture presence . RISK FACTORS FOR OSTEOPOROSIS AND ASSOCIATED FRACTURES REPORTED BY THIS PATIENT: Please refer to Bone Health Questionnaire in the EMR CURRENT THERAPY: Please refer to Bone Health Questionnaire in the EMR TECHNICAL LIMITATIONS: Degenerative disease of the spine RESULTS: Lumbar spine (L1, L2, L3, L4): 0.923 g/cm2, T-score -1.1, Z-score 1.4 Lumbar spine: 2015: 0.857 g/cm2 There has been a 7.7% interval increase in bone mineral density Right Femoral Neck: 0.512 g/cm2, T-score -3.0, Z-score -0.8 Right Femoral Neck: 2015: 0.600 g/cm2 There has been a 14.6% interval decrease in bone mineral density. Right Total Hip: 0.609 g/cm2, T-score -2.7, Z-score -0.8 Right Total Hip: 2015: 0.714 g/cm2 There has been a 14.7% interval decrease in bone mineral density. Left Femoral Neck: 0.634 g/cm2, T-score -1.9, Z-score 0.3 Left Femoral Neck: 2015: 0.653 g/cm2 There has been a 3% interval decrease in bone mineral density. Left Total Hip: 0.658 g/cm2, T-score -2.3, Z-score -0.4 Left Total Hip: 2015: 0.643 g/cm2 There has been a 2.3% interval increase in bone mineral density CHANGE IS STATISTICALLY SIGNIFICANT IN THE SPINE OR HIP IF GREATER THAN OR EQUAL TO 0.04 g/cm2 VERTEBRAL FRACTURE ASSESSMENT Not performed. TRABECULAR BONE ASSESSMENT TBS score: 1.266 Bone micro-architecture: Partially degraded (1.231 - 1.310) DIVISION OF RADIOLOGY Provider, Silver sanchez [place] - 11/11/2023 * * *Final Report* * * DATE OF EXAM: Nov 11 2023 2:23PM MARY LOU Hebert - BD DXA - AXIAL SKELETON / PROCEDURE REASON: Osteoporosis, unspecified osteoporosis type, unspecified pathological fracture p * * * * Physician Interpretation * * * * EXAMINATION: DXA BONE DENSITOMETRY BD DXA - AXIAL SKELETON, BD DXA TRABECLR BONE SCORE (TBS) PATIENT DEMOGRAPHICS: Age: 78 years, Gender: Female SCANNER INFORMATION: DXA Model: ClientShow - License Buddy C [id number] Date Scanned: 11/11/2023 2:23 PM CLINICAL HISTORY: DIAGNOSTIC Osteoporosis, unspecified osteoporosis type, unspecified pathological fracture presence . RISK FACTORS FOR OSTEOPOROSIS AND ASSOCIATED FRACTURES REPORTED BY THIS PATIENT: Please refer to Bone Health Questionnaire in the EMR CURRENT THERAPY: Please refer to Bone Health Questionnaire in the EMR TECHNICAL LIMITATIONS: Degenerative disease of the spine RESULTS: Lumbar spine (L1, L2, L3, L4): 0.923 g/cm2, T-score -1.1, Z-score 1.4 Lumbar spine: 2015: 0.857 g/cm2 There has been a 7.7% interval increase in bone mineral density Right Femoral Neck: 0.512 g/cm2, T-score -3.0, Z-score -0.8 Right Femoral Neck: 2015: 0.600 g/cm2 There has been a 14.6% interval decrease in bone mineral density. Right Total Hip: 0.609 g/cm2, T-score -2.7, Z-score -0.8 Right Total Hip: 2015: 0.714 g/cm2 There has been a 14.7% interval decrease in bone mineral density. Left Femoral Neck: 0.634 g/cm2, T-score -1.9, Z-score 0.3 Left Femoral Neck: 2015: 0.653 g/cm2 There has been a 3% interval decrease in bone mineral density. Left Total Hip: 0.658 g/cm2, T-score -2.3, Z-score -0.4 Left Total Hip: 2015: 0.643 g/cm2 There has been a 2.3% interval increase in bone mineral density CHANGE IS STATISTICALLY SIGNIFICANT IN THE SPINE OR HIP IF GREATER THAN OR EQUAL TO 0.04 g/cm2 VERTEBRAL FRACTURE ASSESSMENT Not performed. TRABECULAR BONE ASSESSMENT TBS score: 1.266 Bone micro-architecture: Partially degraded (1.231 - 1.310) IMPRESSION IMPRESSION: THE LOWEST T-SCORE IS -3.0 IN THE RIGHT HIP 1) DIAGNOSIS (based on BMD alone): OSTEOPOROSIS Caution: Medical conditions other than osteoporosis may cause low bone density, such as osteomalacia or renal osteodystrophy. Clinical correlation is necessary. 2) FRACTURE RISK (Based on TBS adjusted FRAX): 10-year absolute fracture risk: - major osteoporotic fracture = 21 % - hip fracture = 8.6 % - A diagnosis of Osteoporosis, a 10 year probability of hip fracture greater than or equal to 3% or a 10 year probability of any major osteoporosis-related fracture greater than or equal to 20% should be considered for treatment. - DXA scanner generated FRAX calculations may slightly differ from online FRAX calculations due to differences in software versions. - All recommendations and calculations are to be considered as guidelines and should not replace sound clinical judgement - Caution: Fracture risk may be increased independent of BMD in patients with corticosteroid use, age greater than 65 years, or a history of prior fragility fracture. RECOMMENDATIONS: Follow-up in 2 years or as clinically indicated. Patients that are taking corticosteroids, are transplant recipients or have hyperparathyroidism should have annual follow-up. Follow-up scans should always be done on the same machine for accurate comparison. FOR MORE INFORMATION ABOUT DIAGNOSIS AND TREATMENT: Center for Osteoporosis and Metabolic Bone Disease:? www.ccf.org/arthritis/osteo National Osteoporosis Foundation:? www.nof.org International Society of Clinical Densitometry www.iscd.org Mathematics Faculty Member: VASU Transcribe Date/Time: Nov 11 2023 2:28P Dictated by : RAMON MORENO MD This examination was interpreted and the report reviewed and electronically signed by: RAMON MORENO MD on Nov 11 2023 2:32PM EST [facility] No Panel InformationOrdered By: Cc Provider on 11-11-2023 LOWEST T-SCORE -3.0 [facility] No Panel Informationon 11-10 IMPRESSION: THE LOWEST T-SCORE IS -3.0 IN THE RIGHT HIP 1) DIAGNOSIS (based on BMD alone): OSTEOPOROSIS Caution: Medical conditions other than osteoporosis may cause low bone density, such as osteomalacia or renal osteodystrophy. Clinical correlation is necessary. 2) FRACTURE RISK (Based on TBS adjusted FRAX): 10-year absolute fracture risk: - major osteoporotic fracture = 21 % - hip fracture = 8.6 % - A diagnosis of Osteoporosis, a 10 year probability of hip fracture greater than or equal to 3% or a 10 year probability of any major osteoporosis-related fracture greater than or equal to 20% should be considered for treatment. - DXA scanner generated FRAX calculations may slightly differ from online FRAX calculations due to differences in software versions. - All recommendations and calculations are to be considered as guidelines and should not replace sound clinical judgement - Caution: Fracture risk may be increased independent of BMD in patients with corticosteroid use, age greater than 65 years, or a history of prior fragility fracture. RECOMMENDATIONS: Follow-up in 2 years or as clinically indicated. Patients that are taking corticosteroids, are transplant recipients or have hyperparathyroidism should have annual follow-up. Follow-up scans should always be done on the same machine for accurate comparison. FOR MORE INFORMATION ABOUT DIAGNOSIS AND TREATMENT: Center for Osteoporosis and Metabolic Bone Disease:? www.ccf.org/arthritis/osteo National Osteoporosis Foundation:? www.nof.org International Society of Clinical Densitometry www.iscd.org Mathematics Faculty Member: VASU Transcribe Date/Time: Nov 11 2023 2:28P Dictated by : RAMON MORENO MD This examination was interpreted and the report reviewed and electronically signed by: RAMON MORENO MD on Nov 11 2023 2:32PM EST DIVISION OF RADIOLOGY Radiology Study observation (narrative) [facility] Bacteria Ur Culton Bacteria identified Cx Nom (U) ORGANISM ID: 1 10,000 -<50,000 CFU/ml Aerococcus urinae No susceptibility testing done. Normal [facility] Comment on above: Performed By: #### 6 30-4 #### [facility] CLIA [id number] [address] [place] [address] [place] CNOVon 11-08-2023 CNOV Office Visit (INTMWS ) LEONEL ANDRE ([id number]) 1945 F Date Time Provider Department 11/08/23 1:00 PM XUAN BRANDON INTMWS During your visit today, we recorded the following information about you: Pulse Respiration Blood pressure Weight 82/minute 16/minute 157/74 63 kg Xuan Brandon, POTATO PEELER.SNUFF MAKER 11/08/2023 1:36 PM Signed CC: Patient presents with: UTI: "Weeks" c/p abdominal cramping, burning with urination HPI Leonel Andre is a 78 year old female who presents with complaint of possible UTI. These symptoms have been present for two weeks Associated symptoms: burning, urgency, frequency, backpain, pressure, and chills Denies: hematuria, fever, abdominal pain, nausea, vomiting Treatments: increasing her fluids PMH: prolapsed bladder, urologist Dr. Negro Review of Systems See HPI PAST MEDICAL HISTORY 11/08/2004: Allergic rhinitis, cause unspecified 10/27/2011: Carcinoma of kidney, renal cell Comment: left 11/08/2004: Degeneration of intervertebral disc, site unspecified 11/08/2004: Depressive disorder, not elsewhere classified 11/08/2004: Diaphragmatic hernia without mention of obstruction or gangrene 11/08/2004: Diarrhea 11/08/2004: Esophageal reflux 09/08/2020: Herpes zoster without complication Comment: Left leg 11/08/2004: Hypoglycemia, unspecified Comment: hypoglycemic events 11/08/2004: Internal hemorrhoids without mention of complication 11/08/2004: Lumbago 06/19/2021: Mass of right kidney 11/08/2004: Need for prophylactic hormone replacement therapy (postmenopausal) No date: Osteoarthritis 12/23/2014: Osteoporosis 11/08/2004: Panic disorder without agoraphobia 06/29/2010: Persistent disorder of initiating or maintaining sleep 2009: PMH - PAST MEDICAL HISTORY OF Comment: Collapsed Arches in Feet 11/08/2004: Postmenopausal atrophic vaginitis 08/29/2011: Scoliosis 01/21/2006: Unequal leg length (acquired) 11/08/2004: Unspecified essential hypertension 11/28/2011: Urge incontinence 06/29/2010: Urinary frequency 10/01/2013: Uterovaginal prolapse PAST SURGICAL HISTORY 02/21/2012: ARTHRP KNE CONDYLEANDPLATU MEDIALANDLAT COMPARTMENTS; Bilateral Comment: Knee replacement, total, Bilateral 1981: CHOLECYSTECTOMY Comment: open 06/09/2004: COLONOSCOPY FLX DX W/COLLJ SPEC WHEN PFRMD Comment: Colonoscopy 10/08/2016: COLONOSCOPY FLX DX W/COLLJ SPEC WHEN PFRMD Comment: Colonoscopy 1975: DILATION AND CURETTAGE DXAND/THER NONOBSTETRIC Comment: x 2 11/06/2012: ESOPHAGOGASTRODUODENOSCOPY TRANSORAL DIAGNOSTIC Comment: EGD 07/10/2013: ESOPHAGOGASTRODUODENOSCOPY TRANSORAL DIAGNOSTIC Comment: EGD 10/08/2016: ESOPHAGOGASTRODUODENOSCOPY TRANSORAL DIAGNOSTIC Comment: EGD 10/25/2011: LAPAROSCOPY PARTIAL NEPHRECTOMY; Left Comment: Robotic left partial nephrectomy d/t renal cell carcinoma 1975: LIG/TRNSXJ FLP TUBE ABDL/VAG APPR UNI/BI Comment: Tubal ligation ALLERGIES Dust, Lexapro [Escitalopram Oxalate], Lisinopril, Mold, Nexium [Esomeprazole Magnesium], Nexium [Esomeprazole Magnesium], and Ragweed MEDICATIONS dilTIAZem CR (TAZTIA XT) 180 mg 24 hr capsule Take 2 capsules by mouth once daily. Patient should start on November 03, 2023. LORazepam (ATIVAN) 0.5 mg Take 1 tablet by mouth once daily as needed (anxiety) for up to 90 days. 3 months supply. losartan (COZAAR) 25 mg tablet Take 1 tablet by mouth two times a day. oxybutynin (DITROPAN) 5 mg tablet Take 1 tablet by mouth twice daily. omeprazole (PRILOSEC) 40 mg capsule Take 1 capsule by mouth once daily. Cholecalciferol, Vitamin D3, 50 mcg (2,000 unit) cap Take 1 capsule by mouth once daily. Prescribed by endocrinology (Dr. César Johnson) denosumab (PROLIA) 60 mg/mL Once every 6 months. Prescribed by endocrinology (Dr. César Johnson) Dextrin (EASY FIBER) 3 gram/3.5 gram powd Take 3 g by mouth once daily. Mixed with water. Sennosides (SENOKOT EXTRA STRENGTH) 17.2 mg tab Take 1 tablet by mouth daily with lunch AND 2 tablets daily at bedtime. lactobacillus comb no.10 (PROBIOTIC) 20 billion cell cap Take 1 capsule by mouth daily at bedtime. fexofenadine (MUCINEX ALLERGY) 180 mg tablet Take 180 mg by mouth once daily. fluticasone (FLONASE) 50 mcg/actuation nasal spray Use 2 Sprays in each nostril once daily. Rinse mouth after use. ACETAMINOPHEN (TYLENOL ARTHRITIS ORAL) Take by mouth. FAMILY HISTORY Problem Relation Age of Onset Hypertension Mother Osteoporosis Mother Thyroid Mother Alcohol/Drug Father alcoholic cirrhosis Breast Cancer Other maternal cousin Coronary Artery Disease Brother of [place] at 54. Social History Tobacco Use Smoking status: Former Current packs/day: 0.00 Average packs/day: 1 pack/day for 23.0 years (23.0 ttl pk-yrs) Types: Cigarettes Start date: 03/04/1955 Quit date: 03/04/1979 Years since quittin.7 Smokeless tobacco: Never Vaping Use (more content not included)... Normal [facility] UA DIP, URINE (POC)on 2023 BILIRUBIN UA (POCT) Negative Negative [facility] CLARITY UA (POCT) Clear [facility] COLOR UA (POCT) Yellow [facility] GLUCOSE UA (POCT) Negative Negative mg/dL [facility] Hemoglobin Ql (U) Trace-intact Abnormal Negative [facility] Interpretation and review of laboratory results Abnormal [facility] KETONE UA (POCT) Negative Negative mg/dL [facility] LEUKOCYTES UA (POCT) Negative Negative [facility] NITRITE UA (POCT) Negative Negative [facility] PH UA (POCT) 7.0 4.5 - 8.0 [facility] Protein Ql (U) Negative Negative mg/dL [facility] SPECIFIC GRAVITY UA (POCT) 1.010 1.005 - 1.030 [facility] UROBILINOGEN UA (POCT) 0.2 Kindra l E.U./dL [facility] Location:[address], [place], [place], [id number] [place] [address] POINT OF CARE [facility] UA DIP, URINE (POC)on 2023 BILIRUBIN UA (POCT) Negative Negative [facility] CLARITY UA (POCT) Clear [facility] COLOR UA (POCT) Light yellow [facility] GLUCOSE UA (POCT) Negative Negative mg[facility] Hemoglobin Ql (U) Trace-lysed Abnormal Negative [facility] KETONE UA (POCT) Negative Negative mg/[facility] LEUKOCYTES UA (POCT) Negative Negative [facility] NITRITE UA (POCT) Negative Negative [facility] PH UA (POCT) 7.0 4.5 - 8.0 [facility] Protein Ql (U) Negative Negative mg/dL [facility] SPECIFIC GRAVITY UA (POCT) 1.010 1.005 - 1.030 [facility] UROBILINOGEN UA (POCT) 0.2 E.U./dL [facility].U./dL [facility] Basophil percentageOrdered B y: Peewee Negro on 12-12-2022 Basophil percentage < 0.9 mg/dL 0.55-1.02 [facility] No Panel InformationOrdered By: Peewee Negro on 12-12-2022 Bedside Estimated GFR (eGFR) > 60.0000 mL/min >60 [facility] UA DIP, URINE (POC)on 2022 BILIRUBIN UA (POCT) Negative Negative [facility] CLARITY UA (POCT) Clear [facility] COLOR UA (POCT) Yellow [facility] GLUCOSE UA (POCT) Negative Negative mg/dL [facility] Hemoglobin Ql (U) Trace-intact Abnormal Negative [facility] KETONE UA (POCT) Negative Negative mg/dL [facility] LEUKOCYTES UA (POCT) Negative Negative [facility] NITRITE UA (POCT) Negative Negative [facility] PH UA (POCT) 6.0 4.5 - 8.0 [facility] Protein Ql (U) Negative Negative mg/dL [facility] SPECIFIC GRAVITY UA (POCT) 1.010 1.005 - 1.030 [facility] UROBILINOGEN UA (POCT) 0.2 E.U./dL [facility] E.U./dL [facility] Absolute lymphocyte counton 11-18-2021 Lymphocytes Auto (Unsp spec) [#/Vol] 1.07 10*3/uL 0.83-4.51 [facility] Work Phone: Basophil percentageon 2021 Basophil percentage 0-5 SEEN /hpf 0-5 [facility] Work Phone: Basophils/100 WBC (Bld) 0.6 % 0-1 [facility] Work Phone: [phone] Bilirubin [Mass/Vol] 0.30 mg/dL 0.20-1.00 [facility] Work Phone: [phone] Comment on above: For patients on eltr ombopag therapy, use of Dimension [place] TBIL is not recommended. Chloride [Moles/Vol] 102 mmol/L 98-107 [facility] Work Phone: Eosinophils/100 WBC (Bld) 0.7 % 0-5 [facility] Work Phone: [phone] Glucose [Mass/Vol] 117 mg/dL 74-106 [facility] Work Phone: [phone] Comment on above: Fasting Glucose resu lt from 100 to 125 mg/dL suggests IMPAIRED HOMEOSTASIS per A.D.A. criteria. Neutrophils (Bld) [#/Vol] 5.1 10*3/uL 2.0-7.7 [facility] Work Phone: Neutrophils/100 WBC (Bld) 73.0 % 47-70 [facility] Work Phone: [phone] Potassium [Moles/Vol] 4.0 mmol/L 3.5-5.1 [facility] Work Phone: Protein [Mass/Vol] 7.9 g/dL 6.4-8.2 [facility] Work Phone: Sodium [Moles/Vol] 137 mmol/L 136-145 [facility] Work Phone: WBC (Bld) [#/Vol] 6.9 10*3/uL 4.4-11.0 [facility] Work Phone: [phone] Bilirubin Test strip Ql (U)o n 11-18-2021 Bilirubin Ql (U) Negative Negative [facility] Work Phone: Blood erythrocytes count (nu mber/volume)on 11-18-2021 RBC (Bld) [#/Vol] 4.80 10*6/uL 4.2-5.4 [facility] Work Phone: [phone] Blood hemoglobin measurement (mass/volume)on 11-18-2021 Hemoglobin (Bld) [Mass/Vol] 13.9 g/dL 12.0-15.0 [facility] Work Phone: Blood lymphocytes/100 leukoc yteson 11-18-2021 Lymphocytes/100 WBC (Bld) 15.4 % 19-41 [facility] Work Phone: Blood monocytes/100 leukocyt eson 11-18-2021 Monocytes/100 WBC (Bld) 10.0 % 0-10 [facility] Work Phone: Blood platelet mean volumeon 11-18-2021 Platelet mean volume (Bld) [Entitic vol] 10.4 fL 6.2-12.0 [facility] Work Phone: [phone] Determination of erythrocyte mean corpuscular volume (MCV)on 11-18-2021 MCV (RBC) [Entitic vol] 89.6 fL 81-99 [facility] Work Phone: [phone] Hematocrit Auto (Bld) [Volum e fraction]on 11-18-2021 Hematocrit (Bld) [Volume fraction] 43.0 % 37-47 [facility] Work Phone: [phone] Ketones Test strip Ql (U)on 11-18-2021 Ketones Ql (U) Negative Negative [facility] Work Phone: [phone] Laboratory - Chemistry and C hemistry - challengeon 11-18-2021 Magnesium [Mass/Vol] 1.9 mg/dL 1.6-2.6 [facility] Work Phone: [phone] ALP [Catalytic activity/Vol] 71 U/L 45-117 [facility] Work Phone: ALT [Catalytic activity/Vol] 18 U/L 13-56 [facility] Work Phone: [phone] CO2 [Moles/Vol] 27.0 mmol/L 21.0-32.0 [facility] Work Phone: Globulin (S) [Mass/Vol] 3.7 g/dL 2.2-4.2 [facility] Work Phone: Urea nitrogen/Creatinine [Mass ratio] 27.0 mg/mg 10-20 [facility] Work Phone: Laboratory - Hematology and Cell countson 11-18-2021 Erythrocyte distribution width (RBC) [Entitic vol] 41.7 fL 35.1-43.9 [facility] Work Phone: Erythrocyte distribution width (RBC) [Ratio] 12.7 % 11.6-14.6 [facility] Work Phone: Immature granulocytes/100 WBC (Bld) 0.300 % 0.0-0.9 [facility] Work Phone: Comment on above: IG% - Immature Granu locytes (promyelocytes, myelocytes and metamyelocytes) > 1% indicates that a LEFT SHIFT is Present. MCH (RBC) [Entitic mass] 29.0 pg 27.0-32.0 [facility] Work Phone: Nucleated RBC/100 WBC (Bld) [Ratio] 0 % 0-5 [facility] Work Phone: MCHC Auto (RBC) [Mass/Vol]on 11-18-2021 MCHC (RBC) [Mass/Vol] 32.3 g/dL 32-36 [facility] Work Phone: Mucus LM Ql (Urine sed)on Mucus Ql (Urine sed) 0 SEEN /hpf [facility] Work Phone: Nitrite Test strip Ql (U)on 11-18-2021 Nitrite Ql (U) Negative Negative [facility] Work Phone: No Panel Informationon 11-18 Troponin I High Sensitivity 8 pg/mL 3.0-54.0 [facility] Work Phone: Comment on above: Please Note: New Mire[place] t Units and Gender Specific Reference Ranges. For more information see Policy Stat Procedure [place] High Sensitivity Troponin (TNIH) and attachments. Estimated Creatinine Clearance Calc 41.97 ml/min [facility] Work Phone: Estimated GFR (MDRD) Amer 93 mL/min >60 [facility] Work Phone: Comment on above: GFR Calc Estimated GFR (MDRD) Non-Af Amer 77 mL/min >60 [facility] Work Phone: Comment on above: Non- GFR Calc Platelets bldon 11-18-2021 Platelets (Bld) [#/Vol] 207 10*3/uL 150-450 [facility] Work Phone: Protein Test strip Ql (U)on 11-18-2021 Protein Ql (U) Negative Negative [facility] Work Phone: Serum or plasma albumin erendira urement (mass/volume)on 11-18-2021 Albumin [Mass/Vol] 4.2 g/dL 3.2-5.0 [facility] Work Phone: Serum or plasma albumin/glob ulin mass ratioon 11-18-2021 Albumin/Globulin [Mass ratio] 1.1 {ratio} 0.9-2.4 [facility] Work Phone: Serum or plasma calcium erendira urement (mass/volume)on 11-18-2021 Calcium [Mass/Vol] 10.7 mg/dL 8.5-10.1 [facility] Work Phone: Serum or plasma creatinine m easurement (mass/volume)on 11-18-2021 Creatinine [Mass/Vol] 0.78 mg/dL 0.55-1.02 [facility] Work Phone: Comment on above: The validity of the calculated GFR & GFRAA in patients over 70 years has not been determined. Clinical correlation is essential. Serum or plasma urea nitroge n measurement (mass/volume)on 11-18-2021 Urea nitrogen [Mass/Vol] 21 mg/dL 7-18 [facility] Work Phone: Squamous epithelial cells de tection in urine sediment by light microscopyon 11-18-2021 Epithelial cells.squamous LM Ql (Urine sed) 0-5 SEEN /hpf 5-10 [facility] Work Phone: Thin prep Papanicolaou smear with manual screeningon 11-18-2021 Thin prep Papanicolaou smear with manual screening 13 U/L 15-37 [facility] Work Phone: Thin prep Papanicolaou smear with manual screening 8 5-15 [facility] Work Phone: [phone] Urine blood detectionon 11-02 RBC Ql (U) 25 /ul Negative [facility] Work Phone: RBC Ql (U) 0-5 SEEN /hpf 0-5 [facility] Work Phone: Urine clarityon 11-18-2021 Clarity (U) Clear Clear [facility] Work Phone: Urine color determinationon 11-18-2021 Color (U) Straw Yellow [facility] Work Phone: Urine glucose detectionon Glucose Ql (U) Normal mg/dl Normal [facility] Work Phone: Urine leukocyte esterase det ection by dipstickon 11-18-2021 Leukocyte esterase Test strip Ql (U) Negative Negative [facility] Work Phone: Urine pHon 11-18-2021 pH (U) 6.5 [pH] 5.0 - 8.0 [facility] Work Phone: [phone] Urine sediment bacteria coun t by microscopy (number/high power field)on 11-18-2021 Bacteria LM.HPF (Urine sed) [#/Area] RARE /hpf None Seen [facility] Work Phone: Urine specific gravity measu rementon 11-18-2021 Specific gravity (U) [Rel density] 1.010 1.002-1.03 0 [facility] Work Phone: Urobilinogen Auto test strip Ql (U)on 11-18-2021 Urobilinogen Ql (U) Normal mg/dl Normal [facility] Work Phone: Basophil percentageon 2021 Creatinine [Mass/Vol] 0.8 mg/dL 0.55-1.02 [facility] Work Phone: No Panel Informationon 07-07 Bedside Estimated GFR (eGFR) > 60.0000 mL/min >60 [facility] Work Phone: US KIDNEY/BLADDERon 06-20-19 [facility] UA DIP, URINE (POC)on 2021 BILIRUBIN UA (POCT) Negative Negative [facility] CLARITY UA (POCT) Clear [facility] COLOR UA (POCT) Yellow [facility] GLUCOSE UA (POCT) Negative Negative mg/dL [facility] HEMOGLOBIN/BLOOD UA (POCT) Trace-intact Abnormal Negative [facility] KETONE UA (POCT) Negative Negative mg/dL [facility] LEUKOCYTES UA (POCT) Negative Negative [facility] NITRITE UA (POCT) Negative Negative [facility] PH UA (POCT) 6.5 4.5 - 8.0 [facility] Protein Ql (U) Negative Negative mg/dL [facility] SPECIFIC GRAVITY UA (POCT) 1.010 1.005 - 1.030 [facility] UROBILINOGEN UA (POCT) 0.2 E.U./dL [facility] E.U./dL [facility] Absolute lymphocyte counton 06-01-2021 Lymphocytes Auto (Unsp spec) [#/Vol] 1.26 10*3/uL 0.83-4.51 [facility] Work Phone: Amorphous sediment detection in urine sediment by light microscopyon 06-01-2021 Amorphous sediment LM Ql (Urine sed) 1+ PHOS [facility] Work Phone: Basophil percentageon 2021 Basophils/100 WBC (Bld) 0.8 % 0-1 [facility] Work Phone: Chloride [Moles/Vol] 103 mmol/L 98-107 [facility] Work Phone: Eosinophils/100 WBC (Bld) 1.7 % 0-5 [facility] Work Phone: [phone] Glucose [Mass/Vol] 102 mg/dL 74-106 [facility] Work Phone: [phone] Comment on above: Fasting Glucose resu lt from 100 to 125 mg/dL suggests IMPAIRED HOMEOSTASIS per A.D.A. criteria. Neutrophils (Bld) [#/Vol] 5.3 10*3/uL 2.0-7.7 [facility] Work Phone: [phone] Neutrophils/100 WBC (Bld) 71.7 % 47-70 [facility] Work Phone: [phone] Potassium [Moles/Vol] 4.4 mmol/L 3.5-5.1 [facility] Work Phone: [phone] Sodium [Moles/Vol] 136 mmol/L 136-145 [facility] Work Phone: [phone] WBC (Bld) [#/Vol] 7.5 10*3/uL 4.4-11.0 [facility] Work Phone: [phone] Basophil percentage 0 SEEN /hpf [facility] Work Phone: [phone] Bilirubin Test strip Ql (U)o n 06-01-2021 Bilirubin Ql (U) Negative Negative [facility] Work Phone: [phone] Blood erythrocytes count (nu mber/volume)on 06-01-2021 RBC (Bld) [#/Vol] 4.80 10*6/uL 4.2-5.4 [facility] Work Phone: [phone] Blood hemoglobin measurement (mass/volume)on 06-01-2021 Hemoglobin (Bld) [Mass/Vol] 13.8 g/dL 12.0-15.0 [facility] Work Phone: Blood lymphocytes/100 leukoc yteson 06-01-2021 Lymphocytes/100 WBC (Bld) 16.9 % 19-41 [facility] Work Phone: Blood monocytes/100 leukocyt eson 06-01-2021 Monocytes/100 WBC (Bld) 8.5 % 0-10 [facility] Work Phone: Blood platelet mean volumeon 06-01-2021 Platelet mean volume (Bld) [Entitic vol] 10.9 fL 6.2-12.0 [facility] Work Phone: Culture, urineon 06-01-2021 Bacteria identified Cx Nom (U) Culture exhibits no growth. [facility] Work Phone: Determination of erythrocyte mean corpuscular volume (MCV)on 06-01-2021 MCV (RBC) [Entitic vol] 90.8 fL 81-99 [facility] Work Phone: Hematocrit Auto (Bld) [Volum e fraction]on 06-01-2021 Hematocrit (Bld) [Volume fraction] 43.6 % 37-47 [facility] Work Phone: Ketones Test strip Ql (U)on 06-01-2021 Ketones Ql (U) Negative Negative [facility] Work Phone: Laboratory - Chemistry and C hemistry - challengeon 06-01-2021 CO2 [Moles/Vol] 28.0 mmol/L 21.0-32.0 [facility] Work Phone: Urea nitrogen/Creatinine [Mass ratio] 25.1 mg/mg 10-20 [facility] Work Phone: Laboratory - Hematology and Cell countson 06-01-2021 Erythrocyte distribution width (RBC) [Entitic vol] 41.1 fL 35.1-43.9 [facility] Work Phone: Erythrocyte distribution width (RBC) [Ratio] 12.3 % 11.6-14.6 [facility] Work Phone: Immature granulocytes/100 WBC (Bld) 0.400 % 0.0-0.9 [facility] Work Phone: Comment on above: IG% - Immature Granu locytes (promyelocytes, myelocytes and metamyelocytes) > 1% indicates that a LEFT SHIFT is Present. MCH (RBC) [Entitic mass] 28.8 pg 27.0-32.0 [facility] Work Phone: Nucleated RBC/100 WBC (Bld) [Ratio] 0 % 0-5 [facility] Work Phone: MCHC Auto (RBC) [Mass/Vol]on 06-01-2021 MCHC (RBC) [Mass/Vol] 31.7 g/dL 32-36 [facility] Work Phone: Mucus LM Ql (Urine sed)on Mucus Ql (Urine sed) 0 SEEN /hpf [facility] Work Phone: Nitrite Test strip Ql (U)on 06-01-2021 Nitrite Ql (U) Negative Negative [facility] Work Phone: No Panel Informationon 06-01 Estimated Creatinine Clearance Calc 49.97 ml/min [facility] Work Phone: Estimated GFR (MDRD) Amer 85 mL/min >60 [facility] Work Phone: Comment on above: GFR Calc Estimated GFR (MDRD) Non-Af Amer 70 mL/min >60 [facility] Work Phone: Comment on above: Non- GFR Calc Platelets bldon 06-01-2021 Platelets (Bld) [#/Vol] 201 10*3/uL 150-450 [facility] Work Phone: Protein Test strip Ql (U)on 06-01-2021 Protein Ql (U) Negative Negative [facility] Work Phone: Serum or plasma calcium erendira urement (mass/volume)on 06-01-2021 Calcium [Mass/Vol] 10.6 mg/dL 8.5-10.1 [facility] Work Phone: Serum or plasma creatinine m easurement (mass/volume)on 06-01-2021 Creatinine [Mass/Vol] 0.84 mg/dL 0.55-1.02 [facility] Work Phone: Comment on above: The validity of the calculated GFR & GFRAA in patients over 70 years has not been determined. Clinical correlation is essential. Serum or plasma urea nitroge n measurement (mass/volume)on 06-01-2021 Urea nitrogen [Mass/Vol] 21 mg/dL 7-18 [facility] Work Phone: Squamous epithelial cells de tection in urine sediment by light microscopyon 06-01-2021 Epithelial cells.squamous LM Ql (Urine sed) 0-5 SEEN /hpf [facility] Work Phone: Thin prep Papanicolaou smear with manual screeningon 06-01-2021 Thin prep Papanicolaou smear with manual screening 5 5-15 [facility] Work Phone: Urine blood detectionon 03-3 RBC Ql (U) Negative Negative [facility] Work Phone: RBC Ql (U) 0 SEEN /hpf [facility] Work Phone: Urine clarityon 06-01-2021 Clarity (U) Sl. Cloudy Clear [facility] Work Phone: Urine color determinationon 06-01-2021 Color (U) Yellow Yellow [facility] Work Phone: Urine glucose detectionon Glucose Ql (U) Normal mg/dl Normal [facility] Work Phone: Urine leukocyte esterase det ection by dipstickon 06-01-2021 Leukocyte esterase Test strip Ql (U) Negative Negative [facility] Work Phone: Urine pHon 06-01-2021 pH (U) 7.0 [pH] [facility] Work Phone: Urine sediment bacteria coun t by microscopy (number/high power field)on 06-01-2021 Bacteria LM.HPF (Urine sed) [#/Area] 0 /[HPF] None Seen [facility] Work Phone: Urine specific gravity measu rementon 06-01-2021 Specific gravity (U) [Rel density] 1.010 [facility] Work Phone: Urobilinogen Auto test strip Ql (U)on 06-01-2021 Urobilinogen Ql (U) Normal mg/dl Normal [facility] Work Phone: Culture, urine Bacteria identified Cx Nom (U) Mixed Gram Pos & Gram Neg Org [facility] Work Phone: Bacteria identified Cx Nom (U) Positive [facility] Work Phone: Vital Signs Date Time Vital Sign Value Performing Clinician Faci lity 11-09-2024 14:29-0400 Body height 162.[address] Femi Baeza MD Work Phone: [facility] 11-09-2024 14:29-0400 Body mass index (BMI) [Ratio] 24.7 kg/m2 Dr. Femi Baeza MD Work Phone: [facility] 11-09-2024 14:29-0400 Body weight 65.[address] Femi Baeza MD Work Phone: [facility] 10-28-2024 17:04-0400 Diastolic blood pressure 68 mm[Hg] Femi Baeza MD Work Phone: [facility] 10-28-2024 17:04-0400 Heart rate 64 /min Femi Baeza MD Work Phone: [facility] 10-28-2024 17:04-0400 Systolic blood pressure 140 mm[Hg] Femi Baeza MD Work Phone: [facility] 10-28-2024 16:16-0400 Body mass index (BMI) [Ratio] 20.03 kg/m2 Femi Baeza MD Work Phone: [facility] 10-28-2024 16:16-0400 Body weight 56.3 kg Femi Baeza MD Work Phone: [facility] 09-08-2024 13:42-0400 Body height 167.6 cm Xuan Brandon APRN.SNUFF MAKER Work Phone: [facility] 09-08-2024 13:42-0400 Body mass index (BMI) [Ratio] 19.78 kg/m2 Xuan Brandon APRN.SNUFF MAKER Work Phone: [facility] 09-08-2024 13:42-0400 Body temperature 99.7 [degF] Xuan Abi P[employer]ATO [employer]ELER.SNUFF MAKER Work Phone: [facility] 09-08-2024 13:42-0400 Body weight 55.6 kg Xuan Abi [employer]ER Work Phone: [facility] 09-08-2024 13:42-0400 Diastolic blood pressure 70 mm[Hg] Xuan Aib [employer]KER Work Phone: [facility] 09-08-2024 13:42-0400 Heart rate 74 /min Xuan Abi [employer]ER Work Phone: [facility] 09-08-2024 13:42-0400 Respiratory rate 14 /min Xuan Abi [employer].S[employer]KER Work Phone: [facility] 09-08-2024 13:42-0400 SaO2% (BldA) [Mass fraction] 98 % Xuan Abi [employer].SNUFF [employer]KER Work Phone: [facility] 09-08-2024 13:42-0400 Systolic blood pressure 136 mm[Hg] Xuan Abi [employer].SNUFF [employer]KER Work Phone: [facility] 08-03-2024 14:44-0400 Body mass index (BMI) [Ratio] 19.69 kg/m2 Xuan Abi [employer].SNUFF [employer]KER Work Phone: [facility] 08-03-2024 14:44-0400 Body weight 55.34 kg Xuan Abi [employer]KER Work Phone: [facility] 08-03-2024 14:44-0400 Diastolic blood pressure 66 mm[Hg] Xuan Abi [employer]NU[employer]KER Work Phone: [facility] 08-03-2024 14:44-0400 Heart rate 56 /min Xuan Abi [employer].SNU[employer]KER Work Phone: [facility] 08-03-2024 14:44-0400 Respiratory rate 12 /min Xuan Brandon [employer].SNUFF MAKER Work Phone: [facility] 08-03-2024 14:44-0400 SaO2% (BldA) [Mass fraction] 99 % Xuan Brandon [employer].SNUFF MAKER Work Phone: [facility] 08-03-2024 14:44-0400 Systolic blood pressure 140 mm[Hg] Xuan Brandon [employer].SNU[employer]KER Work Phone: [facility] 07-02-2024 16:06-0400 Body mass index (BMI) [Ratio] 20.25 kg/m2 Femi Baeza MD Work Phone: [facility] 07-02-2024 16:06-0400 Body weight 56.9 kg Femi Baeza MD Work Phone: [facility] 07-02-2024 16:06-0400 Diastolic blood pressure 64 mm[Hg] Femi Baeza MD Work Phone: [facility] 07-02-2024 16:06-0400 Heart rate 60 /min Femi Baeza MD Work Phone: [facility] 07-02-2024 16:06-0400 Respiratory rate 12 /min Femi Baeza MD Work Phone: [facility] 07-02-2024 16:06-0400 Systolic blood pressure 130 mm[Hg] Femi Baeza MD Work Phone: [facility] 06-12-2024 13:57-0400 Body temperature 97.3 [degF] Dr. Femi Baeza MD Work Phone: [facility] 06-12-2024 13:57-0400 Diastolic blood pressure 60 mm[Hg] Dr. Femi Baeza MD Work Phone: [facility] 06-12-2024 13:57-0400 Heart rate 62 /min Dr. Femi Baeza MD Work Phone: [facility] 06-12-2024 13:57-0400 Respiratory rate 16 /min Dr. Femi Baeza MD Work Phone: 6(006)210-315140 [place] [address] 06-12-2024 13:57-0400 SaO2% (BldA) [Mass fraction] 100 % Dr. Femi Baeza MD Work Phone: 1(152)744-204740 [place] [address] 06-12-2024 13:57-0400 Systolic blood pressure 121 mm[Hg] Dr. Femi Baeza MD Work Phone: 7(200)147-666540 [place] [address] 06-12-2024 11:59-0400 Body height 162.[address] Femi Baeza MD Work Phone: 6(362)994-276940 [place] [address] 06-12-2024 11:59-0400 Body mass index (BMI) [Ratio] 21 kg/m2 Dr. Femi Baeza MD Work Phone: 2(602)409-330840 [place] [address] 06-12-2024 11:59-0400 Body weight 55.[address] Femi Baeza MD Work Phone: 0(848)997-244240 [place] [address] 03-30-2024 13:10-0500 Body temperature 97.5 [degF] Dr. Femi Baeza MD Work Phone: 6(331)592-436140 [place] [address] 03-30-2024 13:10-0500 Diastolic blood pressure 59 mm[Hg] Dr. Femi Baeza MD Work Phone: 6(014)015-266940 [place] [address] 03-30-2024 13:10-0500 Heart rate 54 /min Dr. Femi Baeza MD Work Phone: 4(957)155-906440 [place] [address] 03-30-2024 13:10-0500 Respiratory rate 16 /min Dr. Femi Baeza MD Work Phone: 5(507)939-009040 [place] [address] 03-30-2024 13:10-0500 SaO2% (BldA) [Mass fraction] 98 % Dr. Femi Baeza MD Work Phone: 4(835)536-244140 [place] [address] 03-30-2024 13:10-0500 Systolic blood pressure 118 mm[Hg] Dr. Femi Baeza MD Work Phone: 8(773)879-294740 [place] [address] 03-30-2024 10:46-0500 Body height 162.[address] Femi Baeza MD Work Phone: 5(970)764-113040 [place] [address] 03-30-2024 10:46-0500 Body mass index (BMI) [Ratio] 22.3 kg/m2 Dr. Femi Baeza MD Work Phone: 3(110)083-306040 [place] [address] 03-30-2024 10:46-0500 Body weight [address] Femi Baeza MD Work Phone: 6(128)926-930240 [place] [address] 03-20-2024 11:00-0500 Body temperature 97.6 [degF] Dr. Femi Baeza MD Work Phone: 0(331)782-797740 [place] [address] 03-20-2024 11:00-0500 Diastolic blood pressure 98 mm[Hg] Dr. Femi Baeza MD Work Phone: 9(620)458-244040 [place] [address] 03-20-2024 11:00-0500 Heart rate 84 /min Dr. Femi Baeza MD Work Phone: 9(275)471-690940 [place] [address] 03-20-2024 11:00-0500 Respiratory rate 18 /min Dr. Femi Baeza MD Work Phone: 0(645)529-474340 [place] [address] 03-20-2024 11:00-0500 SaO2% (BldA) [Mass fraction] 98 % Dr. Femi Baeza MD Work Phone: 9(660)101-191040 [place] [address] 03-20-2024 11:00-0500 Systolic blood pressure 154 mm[Hg] Dr. Femi Baeza MD Work Phone: 5(913)333-141940 [place] [address] 03-20-2024 09:54-0500 Body mass index (BMI) [Ratio] 23.8 kg/m2 Dr. Femi Baeza MD Work Phone: 5(137)610-757440 [place] [address] 03-20-2024 09:54-0500 Body weight 62.[address] Femi Baeza MD Work Phone: 9(354)877-200740 [place] [address] 03-18-2024 13:51-0500 Diastolic blood pressure 70 mm[Hg] Femi Baeza MD Work Phone: [facility] 03-18-2024 13:51-0500 Heart rate 65 /min Femi Baeza MD Work Phone: [facility] 03-18-2024 13:51-0500 Systolic blood pressure 131 mm[Hg] Femi Baeza MD Work Phone: [facility] 03-18-2024 13:40-0500 Body height 167.6 cm Femi Baeza MD Work Phone: [facility] 03-18-2024 13:40-0500 Body mass index (BMI) [Ratio] 22.24 kg/m2 Femi Baeza MD Work Phone: [facility] 03-18-2024 13:40-0500 Body temperature 98.2 [degF] Femi Baeza MD Work Phone: [facility] 03-18-2024 13:40-0500 Body weight 62.5 kg Femi Baeza MD Work Phone: [facility] 03-16-2024 20:47-0500 Body mass index (BMI) [Ratio] 23.7 kg/m2 Dr. Femi Baeza MD Work Phone: [facility] 03-16-2024 20:47-0500 Body temperature 98.7 [degF] Dr. Femi Baeza MD Work Phone: [facility] 03-16-2024 20:47-0500 Body weight 62.[address] Femi Baeza MD Work Phone: [facility] 03-16-2024 20:47-0500 Diastolic blood pressure 91 mm[Hg] Dr. Femi Baeza MD Work Phone: [facility] 03-16-2024 20:47-0500 Heart rate 78 /min Dr. Femi Baeza MD Work Phone: [facility] 03-16-2024 20:47-0500 Respiratory rate 16 /min Dr. Femi Baeza MD Work Phone: [facility] 03-16-2024 20:47-0500 SaO2% (BldA) [Mass fraction] 98 % Dr. Femi Baeza MD Work Phone: [facility] 03-16-2024 20:47-0500 Systolic blood pressure 170 mm[Hg] Dr. Femi Baeza MD Work Phone: [facility] 03-02-2024 16:25-0500 Body mass index (BMI) [Ratio] 23.39 kg/m2 Femi Baeza MD Work Phone: [facility] 03-02-2024 16:25-0500 Body temperature 98.6 [degF] Femi Baeza MD Work Phone: [facility] 03-02-2024 16:25-0500 Body weight 61.8 kg Femi Baeza MD Work Phone: [facility] 03-02-2024 16:25-0500 Diastolic blood pressure 70 mm[Hg] Femi Baeza MD Work Phone: [facility] 03-02-2024 16:25-0500 Heart rate 76 /min Femi Baeza MD Work Phone: [facility] 03-02-2024 16:25-0500 Respiratory rate 16 /min Femi Baeza MD Work Phone: [facility] 03-02-2024 16:25-0500 Systolic blood pressure 142 mm[Hg] Femi Baeza MD Work Phone: [facility] 02-21-2024 13:51-0500 Body temperature 97.3 [degF] Dr. Femi Baeza MD Work Phone: [facility] 02-21-2024 13:51-0500 Diastolic blood pressure 78 mm[Hg] Dr. Femi Baeza MD Work Phone: [facility] 02-21-2024 13:51-0500 Heart rate 93 /min Dr. Femi Baeza MD Work Phone: 1(661)894-986240 [place] [address] 02-21-2024 13:51-0500 Respiratory rate 16 /min Dr. Femi Baeza MD Work Phone: 8(932)518-982340 [place] [address] 02-21-2024 13:51-0500 SaO2% (BldA) [Mass fraction] 98 % Dr. Femi Baeza MD Work Phone: 4(034)020-294640 [place] [address] 02-21-2024 13:51-0500 Systolic blood pressure 148 mm[Hg] Dr. Femi Baeza MD Work Phone: 3(572)401-059140 [place] [address] 02-21-2024 10:22-0500 Body mass index (BMI) [Ratio] 24.6 kg/m2 Dr. Femi Baeza MD Work Phone: 4(470)633-377040 [place] [address] 02-21-2024 10:22-0500 Body weight 65.[address] Femi Baeza MD Work Phone: 1(173)553-861940 [place] [address] 02-21-2024 01:24-0500 Body temperature 98.1 [degF] Dr. Femi Baeza MD Work Phone: 1(577)410-995040 [place] [address] 02-21-2024 01:24-0500 Diastolic blood pressure 65 mm[Hg] Dr. Femi Baeza MD Work Phone: 6(439)768-716540 [place] [address] 02-21-2024 01:24-0500 Heart rate 81 /min Dr. Femi Baeza MD Work Phone: 8(946)150-866740 [place] [address] 02-21-2024 01:24-0500 Respiratory rate 18 /min Dr. Femi Baeza MD Work Phone: 6(761)789-927240 [place] [address] 02-21-2024 01:24-0500 SaO2% (BldA) [Mass fraction] 96 % Dr. Femi Baeza MD Work Phone: 4(506)682-834040 [place] [address] 02-21-2024 01:24-0500 Systolic blood pressure 124 mm[Hg] Dr. Femi Baeza MD Work Phone: [facility] 02-20-2024 23:48-0500 Body mass index (BMI) [Ratio] 24.2 kg/m2 Dr. Femi Baeza MD Work Phone: [facility] 02-20-2024 23:48-0500 Body weight [address] Femi Baeza MD Work Phone: [facility] 02-04-2024 11:59-0500 Body mass index (BMI) [Ratio] 23.65 kg/m2 Femi Baeza MD Work Phone: [facility] 02-04-2024 11:59-0500 Body temperature 97.7 [degF] Femi Baeza MD Work Phone: [facility] 02-04-2024 11:59-0500 Body weight 62.5 kg Femi Baeza MD Work Phone: [facility] 02-04-2024 11:59-0500 Diastolic blood pressure 86 mm[Hg] Femi Baeza MD Work Phone: [facility] 02-04-2024 11:59-0500 Heart rate 76 /min Femi Baeza MD Work Phone: [facility] 02-04-2024 11:59-0500 Respiratory rate 16 /min Femi Baeza MD Work Phone: [facility] 02-04-2024 11:59-0500 Systolic blood pressure 148 mm[Hg] Femi Baeza MD Work Phone: [facility] 01-22-2024 14:05-0500 Body temperature 98.2 [degF] Dr. Femi Baeza MD Work Phone: [facility] 01-22-2024 14:05-0500 Diastolic blood pressure 70 mm[Hg] Dr. Femi Baeza MD Work Phone: [facility] 01-22-2024 14:05-0500 Heart rate 82 /min Dr. Femi Baeza MD Work Phone: [facility] 01-22-2024 14:05-0500 Respiratory rate 14 /min Dr. Femi Baeza MD Work Phone: [facility] 01-22-2024 14:05-0500 SaO2% (BldA) [Mass fraction] 96 % Dr. Femi Baeza MD Work Phone: [facility] 01-22-2024 14:05-0500 Systolic blood pressure 120 mm[Hg] Dr. Femi Baeza MD Work Phone: [facility] 01-17-2024 13:51-0500 Body height 162.6 cm Femi Baeza MD Work Phone: [facility] 01-17-2024 13:51-0500 Body mass index (BMI) [Ratio] 24.22 kg/m2 Femi Baeza MD Work Phone: [facility] 01-17-2024 13:51-0500 Body temperature 98.1 [degF] Femi Baeza MD Work Phone: [facility] 01-17-2024 13:51-0500 Body weight 64 kg Femi Baeza MD Work Phone: [facility] 01-17-2024 13:51-0500 Diastolic blood pressure 82 mm[Hg] Femi Baeza MD Work Phone: [facility] 01-17-2024 13:51-0500 Heart rate 106 /min Femi Baeza MD Work Phone: [facility] 01-17-2024 13:51-0500 SaO2% (BldA) [Mass fraction] 98 % Femi Baeza MD Work Phone: [facility] 01-17-2024 13:51-0500 Systolic blood pressure 142 mm[Hg] Femi Baeza MD Work Phone: [facility] 11-08-2023 13:09-0400 Body mass index (BMI) [Ratio] 23.84 kg/m2 Xuan Brandon APRN.CNP Work Phone: [facility] 11-08-2023 13:09-0400 Body weight 63 kg Xuan Abi [employer]KER Work Phone: [facility] 11-08-2023 13:09-0400 Diastolic blood pressure 74 mm[Hg] Xuan Abi [employer].SNU[employer] MAKER Work Phone: [facility] 11-08-2023 13:09-0400 Heart rate 82 /min Xuan Abi [employer].SNU[employer] MAKER Work Phone: [facility] 11-08-2023 13:090400 Respiratory rate 16 /min Xuan Abi P[employer]ER.SNUFF MAKER Work Phone: [facility] 11-08-2023 13:09-0400 Systolic blood pressure 157 mm[Hg] Xuan Bai [employer].SNUFF MAKER Work Phone: [facility] 09-23-2023 14:14-0400 Body mass index (BMI) [Ratio] 24.2 kg/m2 Xuan Abi [employer].SNU[employer] MAKER Work Phone: [facility] 09-23-2023 14:14-0400 Body weight 63.96 kg Xuan Abi [employer].SNU[employer] MAKER Work Phone: [facility] 09-23-2023 14:14-0400 Diastolic blood pressure 82 mm[Hg] Xuan Abi [employer].SNU[employer] MAKER Work Phone: [facility] 09-23-2023 14:14-0400 Heart rate 77 /min Xuan Abi [employer].SNU[employer] MAKER Work Phone: [facility] 09-23-2023 14:14-0400 Respiratory rate 14 /min Xuan Abi [employer].SNUFF MAKER Work Phone: [facility] 09-23-2023 14:14-0400 SaO2% (BldA) [Mass fraction] 97 % Xuan Abi [employer].SNU[employer]KER Work Phone: [facility] 09-23-2023 14:14-0400 Systolic blood pressure 152 mm[Hg] Xuan Abi [employer].SNUFF MAKER Work Phone: [facility] 09-11-2023 14:37-0400 Body mass index (BMI) [Ratio] 24.03 kg/m2 Xuan Abi [employer].SNU[employer] MAKER Work Phone: [facility] 09-11-2023 14:37-0400 Body weight 63.5 kg Xuan Abi [employer].SNUFF MAKER Work Phone: [facility] 09-11-2023 14:37-0400 Diastolic blood pressure 96 mm[Hg] Xuan Abi P[employer].SNUFF MAKER Work Phone: [facility] 09-11-2023 14:37-0400 Heart rate 72 /min Xuan Abi [employer].SNUFF MAKER Work Phone: [facility] 09-11-2023 14:37-0400 Respiratory rate 16 /min Xuan Abi [employer].SNUFF MAKER Work Phone: [facility] 09-11-2023 14:37-0400 Systolic blood pressure 162 mm[Hg] Xuan Abi P[employer].SNUFF MAKER Work Phone: [facility] 05-08-2023 15:24-0500 Diastolic blood pressure 70 mm[Hg] Xuan Abi [employer].SNU[employer] MAKER Work Phone: [facility] 05-08-2023 15:24-0500 Systolic blood pressure 126 mm[Hg] Xuan Abi [employer].SNUFF MAKER Work Phone: [facility] 05-08-2023 15:06-0500 Body temperature 96.01 [degF] Xuan Abi [employer].SNUFF MAKER Work Phone: [facility] 05-08-2023 15:06-0500 Body weight 63.96 kg Xuan Abi [employer].SNU[employer]KER Work Phone: [facility] 05-08-2023 15:06-0500 Heart rate 63 /min Xuan Abi [employer].SNUFF MAKER Work Phone: [facility] 05-08-2023 15:06-0500 Respiratory rate 16 /min Xuan Brandon APRN.SNUFF MAKER Work Phone: [facility] 05-08-2023 15:06-0500 SaO2% (BldA) [Mass fraction] 97 % Xuan Brandon APRN.CNP Work Phone: [facility] 11-02-2022 13:00-0400 Body height 162.[address] Femi Baeza Work Phone: [facility] 11-02-2022 13:00-0400 Body mass index (BMI) [Ratio] 24.3 kg/m2 Dr. Femi Baeza Work Phone: 4(599)533-549248 [place] [address] 11-02-2022 13:00-0400 Body temperature 97.2 [degF] Dr. Femi Baeza Work Phone: 2(765)368-947448 [place] [address] 11-02-2022 13:00-0400 Body weight 64.[address] Femi Baeza Work Phone: 4(446)806-371148 [place] [address] 11-02-2022 13:00-0400 Diastolic blood pressure 67 mm[Hg] Dr. Femi Baeza Work Phone: [facility] 11-02-2022 13:00-0400 Heart rate 71 /min Dr. Femi Baeza Work Phone: [facility] 11-02-2022 13:00-0400 Respiratory rate 16 /min Dr. Femi Baeza Work Phone: [facility] 11-02-2022 13:00-0400 SaO2% (BldA) [Mass fraction] 95 % Dr. Femi Baeza Work Phone: [facility] 11-02-2022 13:00-0400 Systolic blood pressure 144 mm[Hg] Dr. Femi Baeza Work Phone: 8(350)629-084848 [place] [address] 10-24-2022 15:50-0400 Diastolic blood pressure 68 mm[Hg] Xuan Older [employer].S[employer]FF MAKER Work Phone: [facility] 10-24-2022 15:50-0400 Systolic blood pressure 126 mm[Hg] Xuan Older [employer]ER.SNUFF MAKER Work Phone: [facility] 10-24-2022 15:36-0400 Body weight 64.41 kg Xuan Older [employer].S[employer]KER Work Phone: [facility] 10-24-2022 15:36-0400 Heart rate 61 /min Xuan Older [employer]ER.SNUFF MAKER Work Phone: [facility] 10-24-2022 15:36-0400 Respiratory rate 18 /min Xuan Older P[employer]ER.SNUFF MAKER Work Phone: [facility] 08-23-2022 14:12-0400 Body mass index (BMI) [Ratio] 25 kg/m2 Dr. Femi Baeza Work Phone: [facility] 08-23-2022 14:12-0400 Body weight 65.[address] Femi Baeza Work Phone: [facility] 08-23-2022 14:12-0400 Diastolic blood pressure 79 mm[Hg] Dr. Femi Baeza Work Phone: [facility] 08-23-2022 14:12-0400 Heart rate 58 /min Dr. Femi Baeza Work Phone: [facility] 08-23-2022 14:12-0400 Respiratory rate 18 /min Dr. Femi Baeza Work Phone: [facility] 08-23-2022 14:12-0400 SaO2% (BldA) [Mass fraction] 95 % Dr. Femi Baeza Work Phone: [facility] 08-23-2022 14:12-0400 Systolic blood pressure 150 mm[Hg] Dr. Femi Baeza Work Phone: [facility] 05-23-2022 21:13-0400 Diastolic blood pressure 76 mm[Hg] [facility] 05-23-2022 21:13-0400 Heart rate 79 /min [facility] 05-23-2022 21:13-0400 Respiratory rate 18 /min [facility] 05-23-2022 21:13-0400 Systolic blood pressure 138 mm[Hg] [facility] 05-23-2022 18:30-0400 SaO2% (BldA) [Mass fraction] 95 % [facility] 05-23-2022 14:05-0400 Body height 162.56 cm [facility] 05-23-2022 14:05-0400 Body mass index (BMI) [Ratio] 55.2 kg/m2 [facility] 05-23-2022 14:05-0400 Body temperature 98 [degF] [facility] 05-23-2022 14:05-0400 Body weight 146 kg [facility] 01-22-2022 13:47-0500 Diastolic blood pressure 80 mm[Hg] Xuan Older [employer]KER Work Phone: [facility] 01-22-2022 13:47-0500 Systolic blood pressure 138 mm[Hg] Xuan Older [employer].SNUFF MAKER Work Phone: [facility] 01-22-2022 13:20-0500 Body weight 64.86 kg Xuan Older [employer].S[employer]KER Work Phone: [facility] 01-22-2022 13:20-0500 Heart rate 77 /min Xuan Older P[employer]ER.SNUFF MAKER Work Phone: [facility] 01-22-2022 13:20-0500 Respiratory rate 18 /min Xuan Older [employer].S[employer]KER Work Phone: [facility] 11-18-2021 19:32-0400 Diastolic blood pressure 77 mm[Hg] [facility] Work Phone: 11-18-2021 19:32-0400 Heart rate 65 /min [facility] Work Phone: 11-18-2021 19:32-0400 Respiratory rate 17 /min [facility] Work Phone: 11-18-2021 19:32-0400 SaO2% (BldA) [Mass fraction] 95 % [facility] Work Phone: 11-18-2021 19:32-0400 Systolic blood pressure 145 mm[Hg] [facility] Work Phone: 11-18-2021 16:56-0400 Body temperature 99.1 [degF] [facility] Work Phone: 11-18-2021 15:53-0400 Body height 162.56 cm [facility] Work Phone: 11-18-2021 15:53-0400 Body mass index (BMI) [Ratio] 24.7 kg/m2 [facility] Work Phone: 11-18-2021 15:53-0400 Body weight 65.31 kg [facility] Work Phone: 06-14-2021 15:20-0400 Diastolic blood pressure 60 mm[Hg] Femi Baeza MD Work Phone: [facility] 06-14-2021 15:20-0400 Heart rate 54 /min Femi Baeza MD Work Phone: [facility] 06-14-2021 15:20-0400 Systolic blood pressure 134 mm[Hg] Femi Baeza MD Work Phone: [facility] 06-14-2021 15:02-0400 Body temperature 98.1 [degF] Femi Baeza MD Work Phone: [facility] 06-14-2021 15:02-0400 Body weight 64.86 kg Femi Baeza MD Work Phone: [facility] 06-14-2021 15:02-0400 Respiratory rate 18 /min Femi Baeza MD Work Phone: [facility] 06-01-2021 19:16-0400 Body temperature 98.4 [degF] [facility] Work Phone: 06-01-2021 19:16-0400 Diastolic blood pressure 78 mm[Hg] [facility] Work Phone: 06-01-2021 19:16-0400 Heart rate 65 /min [facility] Work Phone: 06-01-2021 19:16-0400 Respiratory rate 16 /min [facility] Work Phone: 06-01-2021 19:16-0400 SaO2% (BldA) [Mass fraction] 98 % [facility] Work Phone: 06-01-2021 19:16-0400 Systolic blood pressure 136 mm[Hg] [facility] Work Phone: 06-01-2021 15:39-0400 Body height 162.56 cm [facility] Work Phone: 06-01-2021 15:39-0400 Body mass index (BMI) [Ratio] 23.8 kg/m2 [facility] Work Phone: 06-01-2021 15:39-0400 Body weight 63 kg [facility] Work Phone: Encounters Encounter Date Encounter Type Care Provider Facility Start: 11-09-2024 End: 11-09-2024 Patient encounter procedure Dr. Derek Rae MD -[facility] Start: 11-09-2024 End: 11-09-[address] Femi Baeza MD Work Phone: -[facility] Start: 10-28-2024 End: 10-28-2024 Office outpatient visit 25 minutes Femi Baeza MD Work Phone: Internal Medicine [place] Comment on above: Dysuria (Primary Dx) ; Lower leg edema; Essential hypertension; Acute pain of right shoulder; Primary osteoarthritis of right shoulder; Chronic idiopathic constipation Start: 10-28-2024 End: 10-28-2024 ambulatory FEMI BAEZA Facility:[facility] Start: 10-27-2024 End: 10-27-2024 ambulatory FEMI BAEZA Facility:[facility] Start: 10-26-2024 End: 10-26-2024 Telephone encounter Femi Baeza MD Work Phone: Internal Medicine [place] Comment on above: Orders Start: 10-25-2024 End: 10-26-2024 ambulatory Femi Baeza MD Work Phone: [facility] [place] Comment on above: Losartan 50mg Refill Request Start: 10-12-2024 End: 10-12-[address] Femi Baeza MD Work Phone: -Physical Therapy Start: 10-12-2024 End: 10-12-2024 Discharged Recurring Xuan Older STOCK TRACER-C -Physical Therapy Work Phone: Start: 09-23-2024 End: 09-23-2024 Patient encounter procedure Zonia MONTEMAYOR -[facility] Work Phone: Start: 09-23-2024 End: 09-23-[address] Femi Baeza MD Work Phone: -[facility] Start: 09-21-2024 Registered Recurring Xuan Older STOCK TRACER-C -Physical Therapy Work Phone: Start: 09-15-2024 End: 09-15-2024 Refill Femi Baeza MD Work Phone: [facility] [place] Comment on above: Refill Request Start: 09-09-2024 End: 09-09-2024 Follow-up encounter Xuan Brandon APRN.SNUFF MAKER Work Phone: Internal Medicine [place] Start: 09-08-2024 End: 09-08-2024 Subsequent hospital visit by physician Bradford [facility] [place] Work Phone: Radiology Comment on above: Acute pain of both k nees [M25.561, M25.562] Start: 09-08-2024 End: 09-08-2024 Office outpatient visit 25 minutes Xuan Brandon APRN.SNUFF MAKER Work Phone: Internal [facility] [place] Comment on above: Acute pain of both k nees (Primary Dx); Fall on same level from slipping, tripping or stumbling, initial encounter; Acute pain of right shoulder; Chronic neck pain; Age related osteoporosis, unspecified pathological fracture presence Start: 09-08-2024 End: 09-08-2024 ambulatory FEMI BAEZA Facility:[facility] Start: 08-03-2024 End: 08-03-2024 Office outpatient visit 15 minutes Xuan Brandon APRN.CNP Work Phone: Internal Medicine [place] Comment on above: Acute non-recurrent maxillary sinusitis (Primary Dx); Neck pain Start: 08-03-2024 End: 08-03-2024 ambulatory FEMI BAEZA Facility:[facility] Start: 07-31-2024 End: 07-31-2024 ambulatory Nurse Intm/Famp Triage [facility] Work Phone: Nurse Phone Triage Comment on above: Headache; stiff neck Losartan Refill Refill Request Start: 07-15-2024 End: 07-15-2024 Patient encounter procedure Zonia MONTEMAYOR -[facility] Work Phone: Start: 07-15-2024 End: 07-15-[address] Femi Baeza MD Work Phone: [facility] Work Phone: Start: 07-02-2024 End: 07-02-2024 Office outpatient visit 15 minutes Femi Baeza MD Work Phone: Internal Medicine [place] Comment on above: Lower leg edema (Nevin brenna Dx); Essential hypertension; Chronic idiopathic constipation; Weight loss, non-intentional; Polyp of colon, unspecified part of colon, unspecified type Start: 07-02-2024 End: 07-02-2024 ambulatory FEMI BAEZA Facility:[facility] Start: 06-25-2024 ambulatory FEMI Andino lity:[facility] Start: 06-25-2024 End: 06-25-2024 ambulatory FEMI BAEZA Facility:[facility] Start: 06-24-2024 End: 06-24-2024 Patient encounter procedure oNla NOEL -[facility] Work Phone: Start: 06-24-2024 End: 06-24-2024 ambulatory Nola Alfaro Facility:[facility] Start: 06-17-2024 End: 06-19-2024 Refill Xuan Brandon APRN.CNP Work Phone: Internal Medicine [place] Comment on above: Refill Request Start: 06-12-2024 ambulatory Krzysztof Arroyo Facility :[facility] Start: 06-12-2024 Non-patient / Non-visit Krzysztof Gonzalez nd DO -[facility] Start: 06-12-2024 End: 06-12-2024 Admission to same day surgery center Krzysztofnitin Arroyo DO -Endoscopy Work Phone: Start: 06-12-2024 End: 06-12-[address] Femi Baeza MD Work Phone: [facility] Work Phone: Start: 05-06-2024 End: 05-08-2024 Get Medical Advice Femi Baeza MD Work Phone: Internal Medicine [place] Comment on above: refill but my chart shows old prescription service Start: 04-30-2024 End: 04-30-[address] Femi Baeza MD Work Phone: [facility] Work Phone: Start: 04-30-2024 End: 04-30-2024 [facility] Start: 04-30-2024 End: 04-30-2024 ambulatory Zonia Lawrence Facility:[facility] Start: 04-21-2024 End: 04-21-2024 [facility] Start: 04-21-2024 End: 04-21-2024 ambulatory Femi Baeza Facility:[facility] Start: 03-30-2024 Non-patient / Non-visit Krzysztofradha Gonzalez nd DO -[facility] Start: 03-30-2024 End: 03-30-2024 Admission to same day surgery center Krzysztofdevi Arroyo DO -Endoscopy Work Phone: Start: 03-30-2024 End: 03-30-2024 ambulatory Krzysztof Cruz Facility:[facility] Start: 03-25-2024 End: 03-25-2024 Patient encounter procedure Zonia MONTEMAYOR -[facility] Work Phone: Start: 03-25-2024 End: 03-25-2024 ambulatory Femi Baeza Facility:[facility] Start: 03-20-2024 End: 03-20-2024 Emergency department patient visit Dr. Librado Vasquez MD -Emergency Department Work Phone: Start: 03-18-2024 End: 03-18-2024 ambulatory FEMI BAEZA Facility:[facility] Start: 03-18-2024 End: 03-18-2024 Patient encounter procedure Femi Baeza MD Work Phone: Internal Medicine [place] Comment on above: Medicare annual well ness visit, subsequent (Primary Dx); Anxiety; Essential hypertension; Screening for depression; Radiculopathy, lumbar region; Pain in right hip; History of renal cell carcinoma; Osteoporosis, unspecified osteoporosis type, unspecified pathological fracture presence Start: 03-16-2024 End: 03-16-2024 Emergency department patient visit Dr. Librado Vasquez MD -Emergency Department Work Phone: Start: 03-02-2024 End: 03-02-2024 ambulatory FEMI BAEZA Facility:[facility] Start: 03-02-2024 End: 03-02-2024 Office outpatient visit 25 minutes Femi Baeza MD Work Phone: Internal [facility] [place] Comment on above: Gastrointestinal hem orrhage, unspecified gastrointestinal hemorrhage type (Primary Dx); Constipation, unspecified constipation type; Mass of right kidney Start: 02-21-2024 End: 02-21-2024 Emergency department patient visit Dr. Juan Shaffer DO -Emergency Department Work Phone: Start: 02-20-2024 End: 02-21-2024 Emergency department patient visit Dr. Reinier Aviles MD -Emergency Department Work Phone: Start: 02-17-2024 End: 02-17-2024 ambulatory Femi Baeza Facility:[facility] Start: 02-17-2024 End: 02-17-[address] César Johnson MD -Physical Therapy Work Phone: Start: 02-04-2024 End: 02-04-2024 ambulatory FEMI BAEZA Facility:[facility] Start: 02-04-2024 End: 02-04-2024 Office outpatient visit 25 minutes Femi Baeza MD Work Phone: Internal Medicine [place] Comment on above: Rhinosinusitis (Prim heather Dx); Impacted cerumen of both ears; Essential hypertension Start: 01-22-2024 End: 01-22-2024 Patient encounter procedure Tyrese Baker NE -[facility] Work Phone: Start: 01-22-2024 End: 01-22-2024 ambulatory Femi Baeza Facility:[facility] Start: 01-17-2024 End: 01-17-2024 Office outpatient visit 25 minutes Femi Baeza MD Work Phone: Internal Medicine [place] Comment on above: Radiculopathy, lumba r region (Primary Dx); Pain in right hip; Chronic idiopathic constipation Start: 01-17-2024 End: 01-17-2024 ambulatory FEMI BAEZA Facility:[facility] Start: 01-16-2024 End: 01-16-2024 ambulatory Candace Caceres RN Work Phone: [employer] Start: 01-16-2024 End: 01-16-2024 Patient encounter procedure Candace Caceres RN Work Phone: [employer] Comment on above: TICO HICKMAN RN ( ED Utilization Review per request of payor/) Start: 01-13-2024 End: 01-13-2024 Emergency department patient visit Femi Baeza Facility:[facility] Start: 12-16-2023 End: 12-16-2023 ambulatory Femi Baeza Facility:[facility] Start: 12-12-2023 End: 12-12-2023 ambulatory Peewee Negro Facility:[facility] Start: 12-08-2023 End: 12-09-2023 Refill Xuan Brandon APRN.SNUFF MAKER Work Phone: Internal Medicine [place] Comment on above: Refill Request Start: 11-22-2023 End: 11-22-2023 ambulatory Refugio Kameron MONTEMAYOR Facility:[facility] Start: 11-13-2023 End: 11-13-2023 Telephone encounter Femi Baeza MD Work Phone: Internal Medicine [place] Start: 11-11-2023 End: 11-11-2023 ambulatory FEMI BAEZA Facility:[facility] Start: 11-11-2023 End: 11-11-2023 Subsequent hospital visit by physician Bone Density [facility] Work Phone: Radiology Comment on above: Osteoporosis, unspec ified osteoporosis type, unspecified pathological fracture presence [M81.0] Start: 11-08-2023 End: 11-08-2023 ambulatory FEMI BAEZA Facility:[facility] Start: 11-08-2023 End: 11-08-2023 Patient encounter procedure Xuna Brandon APRN.SNUFF MAKER Work Phone: Internal [facility] Comment on above: Dysuria (Primary Dx) ; Urinary frequency Start: 09-23-2023 End: 09-23-2023 Patient encounter procedure Xuan Brandon APRN.SNUFF MAKER Work Phone: Internal Medicine [place] Comment on above: Skin lesion of back (Primary Dx); Changing skin lesion Start: 09-11-2023 End: 09-11-2023 Patient encounter procedure Xuan Brandon APRN.SNUFF MAKER Work Phone: Internal Medicine [place] Comment on above: Essential hypertensi on (Primary Dx); Urge incontinence; Osteoporosis, unspecified osteoporosis type, unspecified pathological fracture presence; Encounter for lipid screening for cardiovascular disease Start: 09-05-2023 Refill Femi white MD Work Phone: Internal Medicine [place] Comment on above: Refill Request Start: 07-08-2023 Refill Xuan Carpiobatshevaer дмитрий POTATO PEELER.SNUFF MAKER Work Phone: Internal Medicine [place] Comment on above: Refill Request Start: 06-07-2023 Refill Xuan Hancock дмитрий POTATO PEELER.SNUFF MAKER Work Phone: Internal Medicine [place] Comment on above: Refill Request Start: 05-08-2023 End: 05-08-2023 Patient encounter procedure Xuan Steeleerger POTATO PEELER.SNUFF MAKER Work Phone: Internal Medicine [place] Comment on above: Essential hypertensi on (Primary Dx); Dysuria Start: 04-08-2023 ambulatory Xuan Carpiobatshevajacinta дмитрий POTATO PEELER.SNUFF MAKER Work Phone: Internal [facility] [place] Comment on above: blood test Start: 02-01-2023 ambulatory Rebecca López MA [facility] Comment on above: Population Health Na vigation Outreach ([employer] Care Gaps ) Start: 12-18-2022 Telephone encounter Femi barrett MD Work Phone: Internal Medicine [place] Comment on above: Covid + on home test Start: 12-12-2022 End: 12-12-[address] Femi Baeza Work Phone: [facility] Work Phone: Start: 12-12-2022 End: 12-12-[address] Femi Baeza Work Phone: [facility] Work Phone: Start: 12-08-2022 Refill Xuan Older POTATO PEELER .SNUFF MAKER Work Phone: Internal Medicine [place] Comment on above: Refill Request Start: 11-20-2022 Telephone encounter Femi barrett MD Work Phone: Internal Medicine [place] Comment on above: requesting informati on on testing done (Bone Density/) Start: 11-16-2022 Refill Xuan Older POTATO PEELER .SNUFF MAKER Work Phone: Internal Medicine [place] Comment on above: Refill Request Start: 11-02-2022 End: 11-02-[address] Femi Baeza Work Phone: [facility] Work Phone: Start: 11-02-2022 End: 11-02-[address] Femi Baeza Work Phone: [facility]-Medical Out Work Phone: Start: 10-29-2022 Telephone encounter Femi barrett MD Work Phone: Internal Medicine [place] Comment on above: Results Start: 10-24-2022 End: 10-24-2022 Patient encounter procedure Xuan Older POTATO PEELER.SNUFF MAKER Work Phone: Internal Medicine [place] Comment on above: Urinary tract infect ion without hematuria, site unspecified (Primary Dx) Start: 10-23-2022 Telephone encounter Xuan Older POTATO PEELER.SNUFF MAKER Work Phone: Internal Medicine [place] Start: 09-24-2022 ambulatory Berta Juventino ANAND [facility] Comment on above: Population Health Na vigation Outreach ([employer] care gaps) Start: 08-23-2022 End: 08-23-[address] Femi Baeza Work Phone: [facility] Work Phone: Start: 07-28-2022 ambulatory Femi white MD Work Phone: [facility] [place] Start: 07-28-2022 Patient encounter procedure Femi Baeza MD Work Phone: Internal Medicine [place] Comment on above: past appointment Start: 07-10-2022 ambulatory Femi white MD Work Phone: Internal Medicine [place] Comment on above: blood work Start: 06-09-2022 Refill Femi white MD Work Phone: Internal Medicine [place] Comment on above: Refill Request Start: 05-24-2022 ambulatory Femi white MD Work Phone: [facility] [place] Start: 05-24-2022 Emergency department patient visit Femi Baeza MD Work Phone: Internal Medicine [place] Comment on above: my emergency room vi sit,05/23/2022 Start: 05-23-2022 End: 05-23-2022 [facility] Start: 05-15-2022 ambulatory Xuan Older POTATO PEELER .SNUFF MAKER Work Phone: Internal Medicine [place] Comment on above: lab results Start: 05-15-2022 E-mail encounter fro m caregiver Xuan Older POTATO PEELER.SNUFF MAKER Work Phone: [facility] [place] Start: 04-27-2022 ambulatory Xuan Older POTATO PEELER .SNUFF MAKER Work Phone: Internal Medicine [place] Comment on above: blood test Start: 03-10-2022 ambulatory Xuan Older POTATO PEELER .SNUFF MAKER Work Phone: Internal Medicine [place] Comment on above: new perscription Start: 2022 Telephone encounter Femi barrett MD Work Phone: Internal Medicine [place] Comment on above: Endocrinology Referr al Start: 01-30-2022 Telephone encounter Xuan Older POTATO PEELER.SNUFF MAKER Work Phone: Family Medicine [place] Comment on above: Referral Information Start: 01-29-2022 ambulatory Xuan Older POTATO PEELER .SNUFF MAKER Work Phone: [facility] [place] Start: 01-29-2022 Patient encounter procedure Xuan Older POTATO PEELER.SNUFF MAKER Work Phone: Internal Medicine [place] Comment on above: Appointment Start: 01-22-2022 End: 01-22-2022 Patient encounter procedure Xuan Older POTATO PEELER.SNUFF MAKER Work Phone: Internal Medicine [place] Comment on above: Medicare annual well ness visit, subsequent (Primary Dx); Encounter for immunization; Hypercalcemia Start: 01-16-2022 ambulatory Katya [facility] Comment on above: Population Health Na vigation Outreach ([employer] Medicare/) Start: 11-18-2021 End: 11-18-2021 Emergency department patient visit [facility]-Emergency Department Start: 11-13-2021 End: 11-13-2021 ambulatory [facility] Work Phone: Start: 11-13-2021 End: 11-13-2021 Patient encounter procedure [facility]-Laboratory, Specimen Start: 09-13-2021 Refill Femi white MD Work Phone: Internal Medicine [place] Comment on above: Refill Request Start: 07-10-2021 Telephone encounter Femi barrett MD Work Phone: Internal Medicine [place] Comment on above: Results (from [facility] CT ) Start: 07-07-2021 End: 07-07-2021 Patient encounter procedure [facility]-Cat Scan, [facility] Start: 06-22-2021 Telephone encounter Femi barrett MD Work Phone: Internal Medicine [place] Comment on above: Fax [place]/Bladder US Start: 06-19-2021 End: 06-19-2021 Subsequent hospital visit by physician [facility] Work Phone: Radiology Comment on above: Lower abdominal pain [R10.30] Start: 06-14-2021 End: 06-14-2021 Patient encounter procedure Femi Baeza MD Work Phone: Internal Medicine [place] Comment on above: Lower abdominal pain (Primary Dx); Essential hypertension; Dysuria; Other microscopic hematuria; Vitamin D deficiency; Hypercalcemia Start: 06-01-2021 End: 06-01-2021 Emergency department patient visit [facility]-Emergency Department Start: 10-31-2020 E-mail encounter fro m caregiver Aria Greenfield APRN.SNUFF MAKER Work Phone: [facility] Start: 10-31-2020 Patient encounter procedure Aria Greenfield APRN.SNUFF MAKER Work Phone: OB/Gynecology Comment on above: RE: Request an Appoi ntment Procedures Date Procedure Procedure Detail Performing Clinician Start: 11-09-2024 Plain X-ray of shoulder Dr. Femi Baeza MD Work Phone: Start: 10-28-2024 Urnls dip stick/tabl et rgnt auto w/o microscopy Femi Baeza MD Work Phone: Start: 09-08-2024 End: 09-08-2024 Radex shoulder complete minimum 2 views Xuan Brandon POTATO PEELER.SNUFF MAKER Work Phone: Start: 06-12-[address] Femi Baeza MD Work Phone: Start: 04-30-[address] Lesly Baeza MD Work Phone: Start: 04-30-2024 Computed tomography of abdomen and pelvis with contrast Dr. Femi Baeza MD Work Phone: Start: 03-20-[address] Femi Baeza MD Work Phone: Start: 03-20-2024 Measurement of renal function Dr. Femi Baeza MD Work Phone: Comment on above: GFR Calc Start: 03-18-2024 Adult depression screening assessment Femi Baeza MD Work Phone: Start: 03-16-2024 Plain X-ray abdomen Dr. Femi Baeza MD Work Phone: Start: 02-21-2024 Measurement of occul t blood in stool specimen using immunoassay Dr. Femi Baeza MD Work Phone: Start: 02-21-2024 Computed tomography of abdomen and pelvis with intravenous contrast Dr. Femi Baeza MD Work Phone: Start: 11-11-2023 BD DXA TRABECULAR FRANCISCO NE SCORE (TBS) Xuan Brandon APRN.SNUFF MAKER Work Phone: Start: 11-11-2023 Dxa bone density adrianne dy 1/> sites axial skel Xuan Brandon APRN.SNUFF MAKER Work Phone: Start: 11-08-2023 Urnls dip stick/tabl et rgnt auto w/o microscopy Xuan Brandon POTATO PEELER.SNUFF MAKER Work Phone: Start: 05-08-2023 Urnls dip stick/tabl et rgnt auto w/o microscopy Xuan Brandon POTATO PEELER.SNUFF MAKER Work Phone: Start: 12-12-2022 Computed tomography of abdomen and pelvis with intravenous contrast Dr. Femi Baeza Work Phone: Start: 10-24-2022 Urnls dip stick/tabl et rgnt auto w/o microscopy Xuan Dionisio POTATO PEELER.SNUFF MAKER Work Phone: Start: 05-23-2022 MRI of lumbar spine Start: 11-18-2021 Computed tomography of abdomen and pelvis with intravenous contrast Start: 07-07-2021 Computed tomography of abdomen and pelvis with contrast Start: 06-19-2021 Us retroperitoneal r eal time w/image complete Femi Baeza MD Work Phone: Start: 06-14-2021 Urnls dip stick/tabl et rgnt auto w/o microscopy Femi Baeza MD Work Phone: Start: 06-01-2021 Urine culture Start: 05-26-2020 Adult depression screening assessment Femi Baeza MD Work Phone: Start: 10-08-2016 Colonoscopy Femi Chi MD Work Phone: Start: 03-19-2012 End: 05-28-2019 H/O: artificial joint Knee joint replacement by other means Xuan Brandon APRN.SNUFF MAKER Work Phone: Urine culture Plan of Treatment Date Care Activity Detail Author Start: 10-28-2027 Diabetes Screening Diabetes Screening [facility] Start: 04-12-2026 Diabetes Screening Diabetes Screening [facility] Start: 11-10-2025 Screening for osteoporosis Bone Density Screening [facility] Start: 10-28-2025 Annual PCP Team Chronic Disease Visit Annual PCP Team Chronic Disease Visit [facility] Start: 10-17-2025 DIABETES SCREEN DIABETES SCREEN [facility] Start: 10-17-2025 Diabetes Screening Diabetes Screening [facility] Start: 09-08-2025 Annual PCP Team Chronic Disease Visit Annual PCP Team Chronic Disease Visit [facility] Start: 08-03-2025 Annual PCP Team Chronic Disease Visit Annual PCP Team Chronic Disease Visit [facility] Start: 07-02-2025 Annual PCP Team Chronic Disease Visit Annual PCP Team Chronic Disease Visit [facility] Start: 03-18-2025 Annual PCP Team Chronic Disease Visit Annual PCP Team Chronic Disease Visit [facility] Start: 03-18-2025 Depression Screening Depression Screening [facility] Start: 03-02-2025 Annual PCP Team Chronic Disease Visit Annual PCP Team Chronic Disease Visit [facility] Start: 02-03-2025 Annual PCP Team Chronic Disease Visit Annual PCP Team Chronic Disease Visit [facility] Start: 01-21-2025 End: 01-21-2025 Patient encounter procedure 01/21/2025 3:20 PM EST Office Visit [facility] [place] [address] [place] [id number] Femi Baeza MD [address] [place] [id number] 3 month follow-up [facility] [place] Comment on above: 3 month follow-up Start: 01-16-2025 Annual PCP Team Chronic Disease Visit Annual PCP Team Chronic Disease Visit [facility] Start: 01-15-2025 DIABETES SCREEN DIABETES SCREEN [facility] Start: 01-11-2025 End: 04-12-2025 Basic metabolic 2000 panel - Serum or Plasma BASIC METABOLIC PANEL Lab Routine Essential hypertension Expected: 01/11/2025, Expires: 04/12/2025 Work Phone: Comment on above: Expected: 01/11/2025, Expires: Start: 11-09-2024 Plain X-ray of shoulder Shoulder min 2 Views [facility] Start: 11-09-2024 X-ray of cervical spine Cerv Spine 2 or 3 Views [facility] Start: 11-09-2024 XR Cervical spine 2 or 3 Views [facility] Start: 11-09-2024 XR Shoulder GE 2 Views [facility] Start: 11-07-2024 Annual PCP Team Chronic Disease Visit Annual PCP Team Chronic Disease Visit [facility] Start: 11-02-2024 [facility] Start: 10-28-2024 End: 10-28-2024 Patient encounter procedure 10/28/2024 4:00 PM EDT Office Visit [facility] [place] [address] [place], [place] [address] Femi Baeza MD [address] [place] [address] 3 month follow-up [facility] [place] Comment on above: 3 month follow-up Start: 10-26-2024 End: 01-25-2025 25-hydroxyvitamin D3 [Mass/volume] in Serum or Plasma VITAMIN D 25 HYDROXY Lab Routine Vitamin D deficiency Expected: 10/26/2024, Expires: 01/25/2025 [facility] Comment on above: Expected: 10/26/2024, Expires: Start: 10-26-2024 End: 01-25-2025 Comprehensive metabolic 2000 panel - Serum or Plasma COMPREHENSIVE METABOLIC PANEL Lab Routine Essential hypertension Expected: 10/26/2024, Expires: 01/25/2025 Work Phone: Comment on above: Expected: 10/26/2024, Expires: Start: 10-26-2024 End: 01-25-2025 Lipid 1996 panel - Serum or Plasma LIPID PANEL, FASTING Lab Routine Essential hypertension Expected: 10/26/2024, Expires: 01/25/2025 [facility] Comment on above: Expected: 10/26/2024, Expires: Start: 10-05-2024 End: 10-05-2024 Patient encounter procedure 10/05/2024 3:00 PM EDT Office Visit [facility] [place] [address] [place], [place] [id number] Femi Baeza MD [address] [place], [place] [id number] 3 month follow up [facility] [place] Comment on above: 3 month follow up Start: 09-22-2024 Annual PCP Team Chronic Disease Visit Annual PCP Team Chronic Disease Visit [facility] Start: 09-10-2024 Annual PCP Team Chronic Disease Visit Annual PCP Team Chronic Disease Visit [facility] Start: 09-01-2024 End: 09-01-2024 Patient encounter procedure 09/01/2024 2:15 PM EDT Office Visit [facility] [place] [address] [place] [id number] Hamida Hickey, [employer] [address] [place] [address] Chronic idiopathic constipation [K59.04]; Weight loss, non-intentional [R63.4]; Polyp of colon, unspecified part of colon, unspecified type [K63.5] [facility] [place] Comment on above: Chronic idiopathic constipation [K59.04] ; Weight loss, non-intentional [R63.4]; Polyp of colon, unspecified part of colon, unspecified type [K63.5] Start: 08-13-2024 Covid-19 Vaccine () Covid-19 Vaccine () [facility] Start: 08-03-2024 End: 08-03-2024 Patient encounter procedure 08/03/2024 2:40 PM EDT Office Visit [facility] [place] [address] [place] [address] Xuan Brandon, [employer] [address] [place], [place] [address] headache and stiff neck-see triage encounter 07/31 [facility] [place] Comment on above: headache and stiff neck-see triage encou nter 07/31 Start: 07-12-2024 DIABETES SCREEN DIABETES SCREEN [facility] Start: 07-02-2024 End: 07-02-2024 Patient encounter procedure 07/02/2024 3:40 PM EDT Office Visit [facility] [place] [address] [place] [address] Femi Baeza MD [address] [place], [place] [id number] 3 month follow-up [facility] [place] Comment on above: 3 month follow-up Start: 06-16-2024 End: 06-16-2024 Patient encounter procedure 06/16/2024 1:40 PM EDT Office Visit [facility] [place] [address] [facility] [place] [address] Xuan Brandon, [employer] [address] [place] [address] follow up 3 months [facility] [place] Comment on above: follow up 3 months Start: 06-12-2024 Colsc flx w/rmvl of tumor polyp lesion snare tq COLONOSCOPY W/LESION REMOVAL [facility] Start: 06-12-2024 Patient discharge [facility] Start: 05-07-2024 Annual PCP Team Chronic Disease Visit Annual PCP Team Chronic Disease Visit [facility] Start: 05-07-2024 BP Controlled (<130/80) BP Controlled (<130/80) [facility] Start: 04-05-2024 DIABETES SCREEN DIABETES SCREEN [facility] Start: 03-30-2024 Colonoscopy flx dx w/collj spec when pfrmd DIAGNOSTIC COLONOSCOPY [facility] Start: 03-30-2024 Patient discharge [facility] Start: 03-20-2024 [facility] Start: 03-18-2024 End: 03-18-2024 Patient encounter procedure 03/18/2024 1:40 PM EST Office Visit [facility] [place] [address] [facility] [place] [address] Femi Baeza MD [address] [place] [address] Medicare Wellness [facility] [place] Comment on above: Medicare Wellness Start: 03-06-2024 Annual PCP Team Chronic Disease Visit Annual PCP Team Chronic Disease Visit [facility] Start: 03-06-2024 RSV Vaccine (1 - 1-dose 60+ series) RSV Vaccine (1 - 1-dose 60+ series) [facility] Comment on above: Postponed from 2006 (Declined at t his time) Start: 03-06-2024 RSV Vaccine (1 - 1-dose 75+ series) RSV Vaccine (1 - 1-dose 75+ series) [facility] Comment on above: Postponed from 2021 (Declined at t his time) Start: 03-06-2024 Shingrix Vaccine (1 of 2) Shingrix Vaccine (1 of 2) [facility] Comment on above: Postponed from 02/10/1996 (Declined at t his time) Start: 03-06-2024 Urine microalbumin profile DTaP,Tdap,Td Vaccine (1 - Tdap) [facility] Comment on above: Postponed from 05/20/2007 (Declined at t his time) Start: 03-02-2024 End: 06-01-2024 CBC panel - Blood by Automated count Work Phone: Comment on above: Expected: 03/02/2024, Expires: Start: 02-21-2024 [facility] Start: 02-21-2024 [facility] Start: 01-17-2024 End: 01-17-2024 Patient encounter procedure 01/17/2024 2:00 PM EST Office Visit [facility] [place] [address] [place] [address] Femi Baeza MD [address] [place] [address] ED follow up [facility] [place] Comment on above: ED follow up Start: 11-11-2023 End: 11-11-2023 Patient encounter procedure 11/11/2023 1:40 PM EDT Appointment Radiology [address] [place] [id number] Osteoporosis, unspecified osteoporosis type, unspecified pathological fracture presence [M81.0] Radiology Comment on above: Osteoporosis, unspecified osteoporosis t ype, unspecified pathological fracture presence [M81.0] Start: 11-03-2023 Covid-19 Vaccine ( season) Covid-19 Vaccine ( season) [facility] Start: 11-03-2023 Covid-19 Vaccine () Covid-19 Vaccine () [facility] Start: 11-03-2023 Influenza vaccination Influenza Vaccine (#1) [facility] Start: 10-25-2023 ANNUAL PCP TEAM CHRONIC DISEASE VISIT ANNUAL PCP TEAM CHRONIC DISEASE VISIT [facility] Start: 10-25-2023 BP CONTROLLED (<130/80) BP CONTROLLED (<130/80) [facility] Start: 09-23-2023 End: 09-23-2023 Patient encounter procedure 09/23/2023 2:20 PM EDT Office Visit [facility] [place] [address] [place] [address] Xuan Brandon, [employer] [address] [facility] [place] [id number] Shave biopsy [facility] [place] Comment on above: Shave biopsy Start: 09-11-2023 End: 09-11-2023 Patient encounter procedure 09/11/2023 2:40 PM EDT Office Visit [facility] [place] [address] [place] [address] Xuan Brandon, [employer] [address] [facility] [place] [address] 4 Month F/U [facility] [place] Comment on above: 4 Month F/U Start: 09-11-2023 End: 12-11-2023 Lipid 1996 panel - Serum or Plasma LIPID PANEL BASIC Lab Routine Encounter for lipid screening for cardiovascular disease Expected: 09/11/2023, Expires: 12/11/2023 [facility] Comment on above: Expected: 09/11/2023, Expires: Start: 07-05-2023 Covid-19 Vaccine ( season) Covid-19 Vaccine ( season) [facility] Start: 03-04-2023 Behavioral Health Screening Behavioral Health Screening [facility] Start: 01-22-2023 ANNUAL PCP TEAM CHRONIC DISEASE VISIT ANNUAL PCP TEAM CHRONIC DISEASE VISIT [facility] Start: 01-22-2023 SHINGRIX VACCINE (1 of 2) SHINGRIX VACCINE (1 of 2) [facility] Comment on above: Postponed from 02/10/1996 (Declined at t his time) Start: 01-22-2023 Urine microalbumin profile [facility] Comment on above: Postponed from 05/20/2007 (Declined at t his time) Start: 11-02-2022 Covid-19 Vaccine ( season) Covid-19 Vaccine () [facility] Start: 11-02-2022 Influenza vaccination [facility] Start: 10-24-2022 End: 12-24-2022 Bacteria identified in Urine by Culture Work Phone: Comment on above: Expected: 10/24/2022, Expires: Start: 08-23-2022 Patient referral [facility] Work Phone: Start: 07-19-2022 ANNUAL PCP TEAM CHRONIC DISEASE VISIT ANNUAL PCP TEAM CHRONIC DISEASE VISIT [facility] Start: 07-02-2022 COLORECTAL CANCER SCREENING COLORECTAL CANCER SCREENING [facility] Comment on above: Postponed from 1991 (Declined at t his time) Start: 06-14-2022 ANNUAL PCP TEAM CHRONIC DISEASE VISIT ANNUAL PCP TEAM CHRONIC DISEASE VISIT [facility] Start: 05-27-2022 COVID-19 VACCINE (6 - Pfizer series) COVID-19 VACCINE (6 - Pfizer series) [facility] Start: 05-10-2022 End: 07-10-2022 25-hydroxyvitamin D3 [Mass/volume] in Serum or Plasma VITAMIN D 25 HYDROXY Lab Routine Vitamin D deficiency Hypercalcemia Expected: 05/10/2022 (Approximate), Expires: 07/10/2022 Work Phone: Comment on above: Expected: 05/10/2022 (Approximate), Expi res: 07/10/2022 Start: 05-10-2022 End: 07-10-2022 Calcium.ionized [Moles/volume] in Blood CALCIUM IONIZED BLOOD Lab Routine Vitamin D deficiency Hypercalcemia Expected: 05/10/2022 (Approximate), Expires: 07/10/2022 Work Phone: Comment on above: Expected: 05/10/2022 (Approximate), Expi res: 07/10/2022 Start: 05-10-2022 End: 07-10-2022 Parathyrin.intact [Mass/volume] in Serum or Plasma PTH INTACT BLD Lab Routine Vitamin D deficiency Hypercalcemia Expected: 05/10/2022 (Approximate), Expires: 07/10/2022 Work Phone: Comment on above: Expected: 05/10/2022 (Approximate), Expi res: 07/10/2022 Start: 04-04-2022 LIPID SCREEN LIPID SCREEN [facility] Start: 03-04-2022 ADVANCE DIRECTIVE DISCUSSION ADVANCE DIRECTIVE DISCUSSION [facility] Start: 03-04-2022 DEPRESSION ASSESSMENT DEPRESSION ASSESSMENT [facility] Start: 01-22-2022 End: 03-24-2022 Calcium.ionized [Moles/volume] in Blood Work Phone: Comment on above: Expected: 01/22/2022, Expires: 3 Start: 01-22-2022 End: 03-24-2022 Parathyrin.intact [Mass/volume] in Serum or Plasma Work Phone: Comment on above: Expected: 01/22/2022, Expires: 3 Start: 11-18-2021 [facility] Work Phone: Start: 11-02-2021 Influenza vaccination INFLUENZA (#1) [facility] Start: 10-08-2021 Colonoscopy COLONOSCOPY [facility] Start: 10-08-2021 COLORECTAL CANCER SCREENING COLORECTAL CANCER SCREENING [facility] Start: 09-13-2021 COVID-19 VACCINE (5 - Booster for Pfizer series) COVID-19 VACCINE (5 - Booster for Pfizer series) [facility] Start: 07-14-2021 End: 09-13-2021 Basic metabolic 2000 panel - Serum or Plasma BASIC METABOLIC PNL Lab Routine Hypercalcemia Expected: 07/14/2021, Expires: 09/13/2021 Work Phone: Comment on above: Expected: 07/14/2021, Expires: Start: 07-14-2021 End: 09-13-2021 VITAMIN D 25 HYDROXY VITAMIN D 25 HYDROXY Lab Routine Vitamin D deficiency Expected: 07/14/2021, Expires: 09/13/2021 Work Phone: Comment on above: Expected: 07/14/2021, Expires: Start: 05-26-2021 Adult depression screening assessment DEPRESSION SCREENING [facility] Start: 04-27-2021 COVID-19 VACCINE (4 - Booster for Pfizer series) COVID-19 VACCINE (4 - Booster for Pfizer series) [facility] Start: 03-04-2021 ADVANCE DIRECTIVE DISCUSSION ADVANCE DIRECTIVE DISCUSSION [facility] Start: 03-04-2021 DEPRESSION ASSESSMENT DEPRESSION ASSESSMENT [facility] Start: 2021 RSV Vaccine (1 - 1-dose 75+ series) RSV Vaccine (1 - 1-dose 75+ series) [facility] Start: 02-22-2017 FECAL OCCULT BLOOD FECAL OCCULT BLOOD [facility] Start: 12-13-2016 Screening for osteoporosis Bone Density Screening [facility] Start: 05-20-2007 Urine microalbumin profile [facility] Start: 2006 RSV Vaccine (1 - 1-dose 60+ series) RSV Vaccine (1 - 1-dose 60+ series) [facility] Start: 02-10-1996 SHINGRIX VACCINE (1 of 2) SHINGRIX VACCINE (1 of 2) [facility] Start: 1991 COLOGUARD (FIT-DNA) COLOGUARD (FIT-DNA) [facility] Start: [address] COLONOGRAPHY [facility] Start: 1991 SIGMOIDOSCOPY SIGMOIDOSCOPY [facility] Start: 02-10-1964 BP CONTROLLED (<130/80) BP CONTROLLED (<130/80) [facility] Start: 02-10-1964 Depression Screening Depression Screening [facility] Bacteria identified in Urine by Culture URINE CULTURE Microbiology Routine Dysuria Other microscopic hematuria 06/14/2021 4:19 PM EDT Work Phone: Bacteria identified in Urine by Culture Urine Culture [facility] Work Phone: Bacteria identified in Urine by Culture URINE CULTURE Microbiology Routine Dysuria Ordered: 05/08/2023 Work Phone: Comment on above: Ordered: 05/08/2023 Bacteria identified in Urine by Culture URINE CULTURE Microbiology Routine Dysuria Urinary frequency 11/08/2023 1:23 PM EDT Work Phone: End: 10-10-2024 BD DXA TRABECULAR BONE SCORE (TBS) BD DXA TRABECULAR BONE SCORE (TBS) Radiology Routine Osteoporosis, unspecified osteoporosis type, unspecified pathological fracture presence 1 Occurrences starting 09/11/2023 until 10/10/2024 [facility] Comment on above: 1 Occurrences starting 09/11/2023 until 10/10/2024 End: 10-10-2024 DXA Skeletal system.axial Views for bone density DXA-AXIAL SKELETON Radiology Routine Osteoporosis, unspecified osteoporosis type, unspecified pathological fracture presence 1 Occurrences starting 09/11/2023 until 10/10/2024 Work Phone: Comment on above: 1 Occurrences starting 09/11/2023 until 10/10/2024 Patient Education [facility] Work Phone: Patient referral [facility] Work Phone: Removal impacted cerumen irrigation/lvg unilat AMBULATORY EAR LAVAGE/IRRIGATION Procedures Routine Impacted cerumen of both ears Ordered: 02/04/2024 Work Phone: Comment on above: Ordered: 02/04/2024 SURGICAL PATHOLOGY SURGICAL PATH OLOGY Lab Routine Skin lesion of back Changing skin lesion 09/23/2023 2:57 PM EDT Work Phone: End: 07-14-2022 US KIDNEY/BLADDER Work Phone: Comment on above: 1 Occurrences starting 06/14/2021 until 07/14/2022 [facility] Immunizations Immunization Date Immunization Notes Care Provider Ester weems 02-13-2024 COVID-19 vaccine, ag e 12+ yr (MODERNA) Femi Baeza MD Work Phone: [facility] 02-13-2024 influenza, high dose seasonal, preservative-free Femi Baeza MD Work Phone: [facility] 02-13-2024 influenza virus vaccine, unspecified formulation Xuan Abi [employer] Work Phone: [facility] 03-06-2023 COVID-19 vaccine, ag e 12+ yr, season (PFIZER-BIONTECH) Xuan Brandon [employer] Work Phone: [facility] 01-21-2023 influenza (aIIV4) vaccine, age 65+ yr, quadrivalent, PF (FLUAD QUAD) Femi Baeza MD Work Phone: [facility] 01-21-2023 influenza virus vaccine, unspecified formulation Femi Baeza MD Work Phone: [facility] 11-01-2021 influenza, high-dose , quadrivalent vaccine (FLUZONE HIGH DOSE QUADRIVALENT) Xuan Older [employer] Work Phone: [facility] 11-01-2021 influenza virus vaccine, unspecified formulation Xuan Older [employer] Work Phone: [facility] 07-19-2021 COVID-19 vaccine, ag e 12+ yr (PFIZER-BIONTECH - FAIR TOP) Femi Baeza MD Work Phone: [facility] Work Phone: 11-29-2020 influenza, high dose seasonal, preservative-free Femi Baeza MD Work Phone: [facility] Work Phone: 05-26-2020 COVID-19 vaccine, ag e 12+ yr (PFIZER-BIONTECH - PURPLE TOP) Femi Baeza MD Work Phone: [facility] Work Phone: 05-05-2020 COVID-19 vaccine, ag e 12+ yr (PFIZER-BIONTECH - PURPLE TOP) Femi Baeza MD Work Phone: [facility] Work Phone: 11-23-2019 influenza, high-dose , quadrivalent vaccine (FLUZONE HIGH DOSE QUADRIVALENT) Femi Baeza MD Work Phone: [facility] 01-05-2019 influenza, high dose seasonal, preservative-free Femi Baeza MD Work Phone: [facility] Work Phone: 12-29-2017 influenza, high dose seasonal, preservative-free Femi Baeza MD Work Phone: [facility] Work Phone: 01-21-2017 influenza, high dose seasonal, preservative-free Femi Baeza MD Work Phone: [facility] 01-19-2016 influenza, high dose seasonal, preservative-free Femi Baeza MD Work Phone: [facility] 06-16-2015 pneumococcal conjuga te vaccine, 13 valent Femi Baeza MD Work Phone: [facility] 12-06-2014 influenza, high dose seasonal, preservative-free Femi Baeza MD Work Phone: [facility] 01-01-2014 influenza, high dose seasonal, preservative-free Femi Baeza MD Work Phone: [facility] 12-17-2012 influenza virus vaccine, unspecified formulation Femi Baeza MD Work Phone: [facility] 06-22-2011 pneumococcal polysaccharide vaccine, 23 valent Femi Baeza MD Work Phone: [facility] 02-01-2011 influenza virus vaccine, unspecified formulation Femi Baeza MD Work Phone: [facility] 12-29-2009 influenza virus vaccine, unspecified formulation Femi Baeza MD Work Phone: [facility] Work Phone: 03-23-2009 novel [id number], preservative-free, injectable Femi Baeza MD Work Phone: [facility] Work Phone: 12-06-2008 influenza virus vaccine, unspecified formulation Femi Baeza MD Work Phone: [facility] Work Phone: 05-19-2007 tetanus and diphther ia toxoids, adsorbed, preservative free, for adult use (2 Lf of tetanus toxoid and 2 Lf of diphtheria toxoid) Femi Baeza MD Work Phone: [facility] 01-14-2006 influenza virus vaccine, unspecified formulation Femi Baeza MD Work Phone: [facility] Work Phone: 01-11-2005 influenza virus vaccine, unspecified formulation Femi Baeza MD Work Phone: [facility] Work Phone: Payers Date Payer Category [place]ayer [place] [employer] [place] [id number] 2024 Self-pay [id number] 2023 Self-pay [id number] 2017 Medicare [id number] 2017 Medicare [id number] 2014 Medicare [id number] Medicare [id number] Unknown [id number]. 2.462 Unknown [id number] 2.16.840.1.905229.3.579. 2.462 Unknown [id number] 2.16.840.1.561604.3.579. 2.462 Unknown [id number] 2.16.840.1.664912.3.579. 2.462 Unknown [id number] 2.16.840.1.246296.3.579. 2.462 Unknown [id number] 2.16.840.1.669345.3.579. 2.462 Unknown [id number] 2.16.840.1.728004.3.579. 2.462 Unknown [id number] 2.16.840.1.638436.3.579. 2.462 Unknown [id number] 2.16.840.1.040408.3.579. 2.462 Unknown [id number] 2.16.840.1.613713.3.579. 2.462 Unknown [id number] 2.16.840.1.118320.3.579. 2.462 Unknown [id number] 2.16.840.1.576850.3.579. 2.462 Unknown [id number] 2.16.840.1.089931.3.579. 2.462 Unknown [id number] 2.16.840.1.377583.3.579. 2.462 Unknown [id number] 2.16.840.1.634431.3.579. 2.462 Unknown [id number] 2.16.840.1.916159.3.579. 2.462 Unknown [id number] 2.16.840.1.832475.3.579. 2.462 Unknown [id number] 2.16.840.1.941332.3.579. 2.462 Unknown [id number] 2.16.840.1.838720.3.579. 2.462 Unknown [id number] 2.16.840.1.505119.3.579. 2.462 Unknown [id number] 2.16.840.1.472361.3.579. 2.462 Unknown [id number] 2.16.840.1.328725.3.579. 2.462 Unknown [id number] 2.16.840.1.469823.3.579. 2.462 Social History Date Type Detail Facility Start: 02-01-2011 End: 06-08-2024 Tobacco smoking status ARIS Ex-smoker [facility] Work Phone: Start: 03-04-1956 End: 03-04-1979 History of tobacco use Current smoker [facility] Start: 03-04-1956 End: 03-04-1979 History of tobacco use Cigarette Smoker [facility] Start: 06-14-2021 End: 09-08-2024 Alcohol intake Current non-drinker of alcohol (finding) [facility] Start: 12-02-2019 End: 05-26-2020 History SDOH Alcohol Frequency 1 [facility] Start: 12-02-2019 History SDOH Alcohol Std Drinks 98 [facility] Start: 11-30-2019 History SDOH Social Connections Phone 4 [facility] Start: 11-30-2019 End: 05-26-2020 History SDOH Social Connections Get Together 2 [facility] Start: 11-30-2019 History SDOH Physica l Activity DPW 3 [facility] Start: 11-30-2019 Education 12 [facility] Start: 1945 Sex Assigned At Not on file [facility] Start: 06-04-2021 End: 07-19-2021 Exposure to SARS-CoV-2 (event) Not sure [facility] Work Phone: Start: 06-01-2021 End: 08-23-2022 Tobacco smoking status ARIS Unknown if ever smoked [facility] Start: 09-08-2020 None [facility] Start: 09-08-2020 Homeless [facility] Start: 09-08-2020 Non-smoker [facility] Start: 1945 Sex Assigned At Female [facility] Start: 02-01-2011 End: 10-24-2022 Cigarettes smoked current (pack per day) - Reported 1 [facility] Work Phone: Start: 02-01-2011 End: 01-17-2024 Tobacco use and exposure Smokeless tobacco non-user [facility] Start: 01-22-2022 End: 10-24-2022 Tobacco use panel [facility] Work Phone: Start: 02-03-2012 Adult Depression Screening Assessment 0 [facility] Work Phone: Do you belong to any clubs or organizations such as anglican groups, unions, fraternal or athletic groups, or school groups? No [facility] Are you now , , , , never or living with a partner? [facility] How often to you hav e a drink containing alcohol? Never [facility] How hard is it for y ou to pay for the very basics like food, housing, medical care, and heating Somewhat hard [facility] Do you feel stress - tense, restless, nervous, or anxious, or unable to sleep at night because your mind is troubled all the time - these days [OSQ] Not at all [facility] Start: 05-14-2024 End: 06-12-2024 Sex Female (finding) [facility] NEGATED: Highlighted row Not [facility] Medical Equipment Procedure Code Equipment Code Equipment Original Text Equipment Identifier Dates Bud Bn Endur Sst 40gm Med Vsc - [id number] Start: 02-11-2012 Bud Bn Endur Sst 40gm Med Vsc - [id number] Start: 02-11-2012 Zcv-Rz-Q-Kind Implant - [id number] Start: 02-11-2012 Comment on above: Description: TIBIAL INSERT FIXED BEARING STABILIZED PLUS Itw-Op-D-Kind Implant - [id number] Start: 02-11-2012 Comment on above: Description: TIBIAL INSERT FIXED BEARING STABILIZED PLUS Comp Tibtry 4 Kn Bud Mdlr Sig - [id number] Start: 02-11-2012 Comp Fem 4 Rt Kn Post - [id number] Start: 02-11-2012 Comp Fem 4 Lt Ps Bud Sig - [id number] Start: 02-11-2012 Comp Tibtry 3 Kn Bud Mdlr Sig - [id number] Start: 02-11-2012 Dome Pat 38mm Pf c Sig Std Kn - [id number] Start: 02-11-2012 Dome Pat 38mm Pf c Sig Std Kn - [id number] Start: 02-11-[address] Tis 10x5cm Thk2mm - [id number] Start: 10-25-2011 Goals Date Patient Goal Desired Activity /State Functional Status Date Assessment Result Facility 07-28-2014 Are you deaf, or do you have serious difficulty hearing No 07/28/2014 10:33 AM Nanda Tapia RN No [facility] 07-28-2014 Are you blind, or do you have serious difficulty seeing, even when wearing glasses No 07/28/2014 10:33 AM Nanda Tapia RN No [facility] 07-28-2014 Do you have serious difficulty walking or climbing stairs Yes 07/28/2014 10:33 AM Nanda Tapia RN Yes [facility] 07-28-2014 Do you have difficul ty dressing or bathing No 07/28/2014 10:33 AM Nanda Tapia RN No [facility] 07-28-2014 Because of a physica l, mental, or emotional condition, do you have difficulty doing errands alone such as visiting a physician's office or shopping No 07/28/2014 10:33 AM Nanda Tapia RN No [facility] Mental Status Date Assessment Result Facility 06-12-2024 Cognitive function Voice/Name;Touch/Hero weiss [facility] Work Phone: 03-30-2024 Cognitive function Voice/Name [facility] Work Phone: 11-02-2022 Cognitive function Voice/Name [facility] Work Phone: 11-18-2021 Cognitive function Level Of Cons ciousness Awake;Alert;Appropriate;Fol lows Commands [facility] Work Phone: 07-28-2014 Because of a physica l, mental, or emotional condition, do you have serious difficulty concentrating, remembering, or making decisions No 07/28/2014 10:33 AM EDT Nanda Malhotra RN No [facility] Clinical Notes 10-01-2013 to 10-28-2024 Femi Baeza MD - 10/28/2024 4:44 PM EDTTelephone Encounter - Madelaine Griffiths LPN - 10/26/2024 3:26 PM EDTTelephone Encounter - Madelaine Griffiths LPN - 10/26/2024 3:26 PM EDT Note Date & Type Note Facility 10-28-2024 Note HNO ID: [id number] Author: FEMI BAEZA MD Service: ? Author Type: Physician Type: Progress Notes Filed: 10/28/2024 18:18 Note Text: Subjective Leonel Andre is a 79 year old female. Recording using wishkicker software for draft documentation of the visit was discussed with the patient/authorized energy conservation representative; all questions welcomed and answered. Patient/authorized energy conservation representative agreed to proceed Patient presents with: F/U 3 Month Right Shoulder Pain:- Peg Andre experienced onset after a fall on the last Saturday of August. - Pain localized to the right shoulder and upper arm.- Unable to raise arm to use a blow dryer or curling iron; requires assistance from left arm.- Peg tried careers adviser, which worsened the pain.- Completed 6 sessions of physical therapy with massage and stretching; no improvement, possibly worsened.- Physical therapist suggested possible rotator cuff injury and recommended seeing an orthopedic doctor.- No previous injuries to the right shoulder. Knee Pain:- Bilateral knee pain following the fall.- Pain has improved with exercise bike use; knees are "a little looser" and less sore, but waste machine tender. Constipation:- Chronic issue, currently having bowel movements approximately once a week.- Peg is taking Linzess 147 mcg daily x6 months with minimal improvement.- Lactulose increased to BID x2.5 weeks with no significant change.- Considering increasing Linzess to the highest dose. UTI Symptoms:- Recent cramping and burning during urination; suspected UTI. Hypertension:- Pge is taking losartan BID.- Recent blood pressure readings: 140/64 mmHg.- No current edema since taking hydrochlorothiazide. Review of Systems Constitutional: Negative for chills and fever. Respiratory: Negative for cough and shortness of breath. Cardiovascular: Negative for chest pain, palpitations and leg swelling. Gastrointestinal: Positive for abdominal distention and constipation. Negative for abdominal pain, diarrhea, nausea and vomiting. Genitourinary: Negative for dysuria and hematuria. Neurological: Negative for dizziness, light-headedness and headaches. Objective BP 146/78 (BP Site: Left Arm, BP Position: Sitting, BP Cuff Size: Large Adult) Pulse (!) 48 Wt 56.3 kg (124 lb 1.9 oz) BMI 20.03 kg/m? Physical Exam Constitutional: General: She is not in acute distress. Appearance: She is not ill-appearing or diaphoretic. Cardiovascular: Rate and Rhythm: Normal rate and regular rhythm. Heart sounds: S1 normal and S2 normal. No murmur heard. No gallop. Pulmonary: Breath sounds: Normal breath sounds. Abdominal: General: There is no distension. Palpations: Abdomen is soft. Tenderness: There is no abdominal tenderness. Musculoskeletal: Cervical back: No spasms or tenderness. Right knee: No swelling or effusion. Normal range of motion. No tenderness. Left knee: No swelling or effusion. Normal range of motion. No tenderness. Right lower leg: No edema. Left lower leg: No edema. Neurological: Mental Status: She is alert. Gait: Gait normal. BP 140/68 (BP Site: Left Arm, BP Position: Sitting) Pulse 64 Latest Ref [facility] 10/27/2024 Protein, Total 6.3 - 8.0 g/dL 6.9 Albumin 3.9 - 4.9 g/dL 4.4 Calcium 8.5 - 10.2 mg/dL 10.8 (H) Bilirubin, Total 0.2 - 1.3 mg/dL 0.2 Alkaline Phosphatase 34 - 123 U/L 49 AST 13 - 35 U/L 15 ALT 7 - 38 U/L 15 Glucose 74 - 99 mg/dL 95 BUN 7 - 21 mg/dL 16 Creatinine 0.58 - 0.96 mg/dL 0.58 Sodium 136 - 144 mmol/L 139 Potassium 3.7 - 5.1 mmol/L 4.2 Chloride 98 - 107 mmol/L 101 CO2 22 - 30 mmol/L 26 Anion Gap 8 - 15 mmol/L 12 eGFR >=60 mL/min/1.73m? 93 Cholesterol, Total <200 mg/dL 163 Triglyceride <150 mg/dL 43 HDL Cholesterol >39 mg/dL 72 LDL Cholesterol, Calculated <100 mg/dL 82 Non HDL Cholesterol <130 mg/dL 91 VLDL Cholesterol <30 mg/dL 7 TC:HDL Ratio <5.10 2.26 LDL:HDL Ratio <2.54 1.14 Fasting Time hrs 12 Vitamin D 25 Hydroxy 31.0 - 80.0 ng/mL 45.3 Legend: (H) High Latest Ref Rng 10/28/2024 GLUCOSE UA (POCT) Negative mg/dL Negative BILIRUBIN UA (POCT) Negative Negative KETONE UA (POCT) Negative mg/dL Negative SPECIFIC GRAVITY UA (POCT) 1.005 - 1.030 1.010 HEMOGLOBIN/BLOOD UA (POCT) Negative Trace-intact ! PH UA (POCT) 4.5 - 8.0 6.5 PROTEIN UA (POCT) Negative mg/dL Negative UROBILINOGEN UA (POCT) Normal E.U./dL 0.2 NITRITE UA (POCT) Negative Negative LEUKOCYTES UA (POCT) Negative Negative COLOR UA (POCT) Light yellow CLARITY UA (POCT) Clear Legend: ! Abnormal ASSESSMENT/PLAN: 1. Dysuria - ICD9: 788.1, ICD10: R30.0 (primary diagnosis) acute - Patient education for prevention given - UA DIP, URINE (POC) 2. Lower leg edema - ICD9: 782.3, ICD10: R60.0 - Controlled. Increase dose. Discussed medication dosage, usage, goals of therapy, and side effects. - HYDROCHLOROTHIAZIDE 50 MG TABLET 3. Essential hypertension - ICD9: 401.9, ICD10: I10 - (more content not included)... [facility] 10-28-2024 History of Present illness Narrative Amish Andre is a 79 year old female. Recording using wishkicker software for draft documentation of the visit was discussed with the patient/authorized energy conservation representative; all questions welcomed and answered. Patient/authorized energy conservation representative agreed to proceed Patient presents with: F/U 3 Month Right Shoulder Pain:- Peg Andre experienced onset after a fall on the last Saturday of August. - Pain localized to the right shoulder and upper arm.- Unable to raise arm to use a blow dryer or curling iron; requires assistance from left arm.- Peg tried careers adviser, which worsened the pain.- Completed 6 sessions of physical therapy with massage and stretching; no improvement, possibly worsened.- Physical therapist suggested possible rotator cuff injury and recommended seeing an orthopedic doctor.- No previous injuries to the right shoulder. Knee Pain:- Bilateral knee pain following the fall.- Pain has improved with exercise bike use; knees are "a little looser" and less sore, but waste machine tender. Constipation:- Chronic issue, currently having bowel movements approximately once a week.- Peg is taking Linzess 147 mcg daily x6 months with minimal improvement.- Lactulose increased to BID x2.5 weeks with no significant change.- Considering increasing Linzess to the highest dose. UTI Symptoms:- Recent cramping and burning during urination; suspected UTI. Hypertension:- Peg is taking losartan BID.- Recent blood pressure readings: 140/64 mmHg.- No current edema since taking hydrochlorothiazide. Review of Systems Constitutional: Negative for chills and fever. Respiratory: Negative for cough and shortness of breath. Cardiovascular: Negative for chest pain, palpitations and leg swelling. Gastrointestinal: Positive for abdominal distention and constipation. Negative for abdominal pain, diarrhea, nausea and vomiting. Genitourinary: Negative for dysuria and hematuria. Neurological: Negative for dizziness, light-headedness and headaches. Objective BP 146/78 (BP Site: Left Arm, BP Position: Sitting, BP Cuff Size: Large Adult) Pulse (!) 48 Wt 56.3 kg (124 lb 1.9 oz) BMI 20.03 kg/m Physical Exam Constitutional: General: She is not in acute distress. Appearance: She is not ill-appearing or diaphoretic. Cardiovascular: Rate and Rhythm: Normal rate and regular rhythm. Heart sounds: S1 normal and S2 normal. No murmur heard. No gallop. Pulmonary: Breath sounds: Normal breath sounds. Abdominal: General: There is no distension. Palpations: Abdomen is soft. Tenderness: There is no abdominal tenderness. Musculoskeletal: Cervical back: No spasms or tenderness. Right knee: No swelling or effusion. Normal range of motion. No tenderness. Left knee: No swelling or effusion. Normal range of motion. No tenderness. Right lower leg: No edema. Left lower leg: No edema. Neurological: Mental Status: She is alert. Gait: Gait normal. BP 140/68 (BP Site: Left Arm, BP Position: Sitting) Pulse 64 Latest Ref Rng 10/27/2024 Protein, Total 6.3 - 8.0 g/dL 6.9 Albumin 3.9 - 4.9 g/dL 4.4 Calcium 8.5 - 10.2 mg/dL 10.8 (H) Bilirubin, Total 0.2 - 1.3 mg/dL 0.2 Alkaline Phosphatase 34 - 123 U/L 49 AST 13 - 35 U/L 15 ALT 7 - 38 U/L 15 Glucose 74 - 99 mg/dL 95 BUN 7 - 21 mg/dL 16 Creatinine 0.58 - 0.96 mg/dL 0.58 Sodium 136 - 144 mmol/L 139 Potassium 3.7 - 5.1 mmol/L 4.2 Chloride 98 - 107 mmol/L 101 CO2 22 - 30 mmol/L 26 Anion Gap 8 - 15 mmol/L 12 eGFR >=60 mL/min/1.73m 93 Cholesterol, Total <200 mg/dL 163 Triglyceride <150 mg/dL 43 HDL Cholesterol >39 mg/dL 72 LDL Cholesterol, Calculated <100 mg/dL 82 Non HDL Cholesterol <130 mg/dL 91 VLDL Cholesterol <30 mg/dL 7 TC:HDL Ratio <5.10 2.26 LDL:HDL Ratio <2.54 1.14 Fasting Time hrs 12 Vitamin D 25 Hydroxy 31.0 - 80.0 ng/mL 45.3 Legend: (H) High Latest Ref Rng 10/28/2024 GLUCOSE UA (POCT) Negative mg/dL Negative BILIRUBIN UA (POCT) Negative Negative KETONE UA (POCT) Negative mg/dL Negative SPECIFIC GRAVITY UA (POCT) 1.005 - 1.030 1.010 HEMOGLOBIN/BLOOD UA (POCT) Negative Trace-intact ! PH UA (POCT) 4.5 - 8.0 6.5 PROTEIN UA (POCT) Negative mg/dL Negative UROBILINOGEN UA (POCT) Normal E.U./dL 0.2 NITRITE UA (POCT) Negative Negative LEUKOCYTES UA (POCT) Negative Negative COLOR UA (POCT) Light yellow CLARITY UA (POCT) Clear Legend: ! Abnormal ASSESSMENT/PLAN: 1. Dysuria - ICD9: 788.1, ICD10: R30.0 (primary diagnosis) acute - Patient education for prevention given - UA DIP, URINE (POC) 2. Lower leg edema - ICD9: 782.3, ICD10: R60.0 - Controlled. Increase dose. Discussed medication dosage, usage, goals of therapy, and side effects. - HYDROCHLOROTHIAZIDE 50 MG TABLET 3. Essential hypertension - ICD9: 401.9, ICD10: I10 - Improving control - Continue current medications - Recommend home blood pressure monitoring, to bring results to next visit - Encouraged sodium restriction, DASH or Mediterranean diet - Recommend regular aerobic exercise - HYDROCHLOROTHIAZIDE 50 MG TABLET - BASIC METABOLIC PANEL 4. Acute pain of right shoulder - ICD9: 719.41, ICD10: M25.511 - She requested Dr. Luciano, in her network. - CONSULT TO ORTHOPAEDICS 5. Primary osteoarthritis of right shoulder - ICD9: 715.11, ICD10: M19.011 - CONSULT TO ORTHOPAEDICS 6. Chronic idiopathic constipation - ICD9: 564.00, ICD10: K59.04 - Try increasing LACTULOSE to 3 times a day. Femi Baeza MD documented in this encounter [facility] 10-26-2024 Telephone encounter Note Left msg on identified vm, Doctor has ordered fasting labs. Madelaine Griffiths LPN [facility] 10-26-2024 Miscellaneous Notes Left msg on identified vm, Doctor has ordered fasting labs. Madelaine Griffiths LPN Fasting labs ordered. Peg is asking if she needs to have labs prior to her appt 10/28. Madelaine Griffiths LPN documented in this encounter [facility] 10-26-2024 Telephone encounter Note Fasting labs ordered. [facility] 10-26-2024 Telephone encounter Note Peg is asking if she needs to have labs prior to her appt 10/28. Madelaine Griffiths LPN [facility] 10-26-2024 Telephone encounter Note Patient has been identified by name and date of : Yes Patient phones for refill(s): Requested Prescriptions Pending Prescriptions Disp Refills losartan (COZAAR) 50 mg tablet 180 tablet 1 Sig: Take 1 tablet by mouth two times a day. Date of last office visit in primary care: 09/08/2024 Date of next office visit in primary care: 10/28/2024 Please advise. Thank you. Madelaine Griffiths LPN. [facility] 10-26-2024 Miscellaneous Notes Patient has been identified by name and date of : Yes Patient phones for refill(s): Requested Prescriptions Pending Prescriptions Disp Refills losartan (COZAAR) 50 mg tablet 180 tablet 1 Sig: Take 1 tablet by mouth two times a day. Date of last office visit in primary care: 09/08/2024 Date of next office visit in primary care: 10/28/2024 Please advise. Thank you. Madelaine Griffiths LPN. documented in this encounter [facility] 10-12-2024 Discharge summary Note Date/Time October 12, 2024 7:00pm [facility] [address] [place] [address] / REHABILITATION SERVICES DISCHARGE SUMMARY MR#: [id number] Acct: [id number] Name: LEONEL ANDRE (PEG) Blayne Rep #: [id number] : 1945 79 From: Armond Garza DPT, OCS, CSCS Referring Dr.: SADIE Govea Older Status: REG RCR Insurance: [employer] SELF PAY INSURANCE Discharge Summary D/C summary: It has been my pleasure to treat LEONEL DESAI) Blayne ANDRE referred by SADIE Cai, with the diagnosis of chronic neck pain for a total of 6 visit(s). Discharge Date: 10/12/24 Please see the following information for a summary of their discharge status. Subjective Subjective: Still hard to lift arm H to gt to hair.Most of pain is R shoulder adn at rest is 4/10 and 9/10 with movement tranisently. Neck is getting better, hurts in am upon awakening but moves around and it gets better. Pain neck: Pain Intensity (Out of 10): 0 R SH: Pain Intensity (Out of 10): 4 Overall Improvement % Improvement: 25 Objective Objective/Function: Did not tolerate shoulder strength today, too painful. Shoulder AROM 110 flexion but slow and painful, 25 er painful, IR L5 but painful. Neck aROM 55 B rotation adn 50 ext without pain. + R drop arm and + R ext rotation lag with 3- strength R er. Overall neck better movemeent and geetting more comfortable, shoulder R is a bugger and holding her back. Goals Goal 1:: Pain in neck adn shoulder 50% better at 2/10 at worst and manageable Goal Progress: shulder hurts Goal 2:: I appropriate HEP for RC and postural and neck strength adn stretching,postural ROM to limit future problems Goal Progress: neck better, not shoulder Goal 3:: symmetircal neck ROM and er strength shoulders to allow for ease of ADLs Goal Progress: neck met, not shldr Goal 4:: Neck oswestry to 5 or better Goal Progress: Not Progressing, shoulder Goal 5:: Work in garden adn do hair without increased pain Goal Progress: shoulder a problem Plan Plan: d/c, pt to seek help for shoulder and continue HEP D/C Information Discharge Comments: Pt to continue neck exercises at [facility] and wants to see shoulder specialist. d/c sentence: If there are questions or concerns regarding this patient's physical therapy, please feel free to call me at [phone]. Thank you for the referral of thispatient. Sincerely, Armond Garza DPT, EDEL, RICARDA Balance/Gait/Functional tests Balance/Special Test Scores Oswestry Neck Score: 27 Improvement % Improvement: 25 <Electronically signed by EDEL Gómez DPT, RICARDA> 10/12/24 1556 CC: SADIE Nichole; Dr. Femi Baeza MD ~ EBG Signed [facility] Work Phone: [phone]) 453-520308-11-2025 Discharge summary [facility] [address] [place] [address] [address] [place] [address] / REHABILITATION SERVICES DISCHARGE SUMMARY MR#: [id number] Acct: [id number] Name: LEONEL ANDRE (PEG) Blayne Rep #: [id number] : 1945 79 From: Armond Garza DPT, EDEL, RICARDA Referring Dr.: SADIE Nichole Status: REG RCR Insurance: [employer] SELF PAY INSURANCE Discharge Summary D/C summary: It has been my pleasure to treat LEONEL DESAI) Blayne ANDRE referred by SADIE Cai, withthe diagnosis of chronic neck pain for a total of 6 visit(s). Discharge Date: 10/12/24 Please see the following information for a summary of their discharge status. Subjective Subjective: Still hard to lift arm H to gt to hair.Most of pain is R shoulder adn at rest is 4/10 and 9/10 with movement tranisently. Neck is getting better, hurts in am upon awakening but moves around and it gets better. Pain neck: Pain Intensity (Out of 10): 0 R SH: Pain Intensity (Out of 10): 4 Overall Improvement % Improvement: 25 Objective Objective/Function: Did not tolerate shoulder strength today, too painful. Shoulder AROM 110 flexion but slow and painful, 25 er painful, IR L5 but painful. Neck aROM 55 B rotation adn 50 ext without pain. + R drop arm and + R ext rotation lag with 3- strength R er. Overall neck better movemeent and geetting more comfortable, shoulder R is a bugger and holding herback. Goals Goal 1:: Pain in neck adn shoulder 50% better at 2/10 at worst and manageable Goal Progress: shulder hurts Goal 2:: I appropriate HEP for RC and postural and neck strength adn stretching,postural ROM to limit future problems Goal Progress: neck better, not shoulder Goal 3:: symmetircal neck ROM and er strength shoulders to allow for ease of ADLs Goal Progress: neck met, not shldr Goal 4:: Neck oswestry to 5 or better Goal Progress: Not Progressing, shoulder Goal 5:: Work in garden adn do hair without increased pain Goal Progress: shoulder a problem Plan Plan: d/c, pt to seek help for shoulder and continue HEP D/C Information Discharge Comments: Pt to continue neck exercises at [facility] and wants to see shoulder specialist. d/c sentence: If there are questions or concerns regarding this patient's physical therapy, please feel free to call me at [phone]. Thank you for the referral of thispatient. Sincerely, Armond Garza, DPT, OCS, CSCS Balance/Gait/Functional tests Balance/Special Test Scores Oswestry Neck Score: 27 Improvement % Improvement: 10/12/24 6906 CC: SADIE Nichole; Dr. Femi Baeza MD ~ EBG Signed [facility]07-15-2025 Telephone encounter Note* Telephone Encounter - Madelaine Griffiths LPN - 09/15/2024 10:25 AM EDT Patient has been identified by name and date of : Yes Patient phones for refill(s): Requested Prescriptions Pending Prescriptions Disp Refills LORazepam (ATIVAN) 0.5 mg 90 tablet 0 Sig: Take 1 tablet by mouth once daily as needed (anxiety) for up to 90 days. 3 months supply. Patient should start on September 17, 2024. Date of last office visit in primary care: 09/08/2024 Date of next office visit in primary care: 10/05/2024 Please advise. Thank you. Madelaine Griffiths LPN. [facility]07-15-2025 Miscellaneous Notes* Telephone Encounter - Madelaine Griffiths LPN - 09/15/2024 10:25 AM EDT Patient has been identified by name and date of : Yes Patient phones for refill(s): Requested Prescriptions Pending Prescriptions Disp Refills LORazepam (ATIVAN) 0.5 mg 90 tablet 0 Sig: Take 1 tablet by mouth once daily as needed (anxiety) for up to 90 days. 3 months supply. Patient should start on September 17, 2024. Date of last office visit in primary care: 09/08/2024 Date of next office visit in primary care: 10/05/2024 Please advise. Thank you. Madelaine Griffiths LPN. [facility] NoteHNO ID: [id number] Author: ROBERT BANERJEE RT(R) Service: ? Author Type: Technologist Type: Progress Notes Filed: 09/08/2024 14:59 Note Text: Radiology Service Progress Note PATIENT NAME: Leonel Andre DATE OF SERVICE: September 08, 2024 TIME: 2:58 PM PATIENT IDENTITY VERIFICATION COMPLETED USING TWO (2) IDENTIFIERS: Name and Date of confirmed by patient verbally. FALL SCREENING: Has the patient had 2 falls in the last year or 1 fall with injury or currently using an Ambulatory Assistive Device (Walker, Cane, Wheelchair, Crutches, etc.)? No PATIENT GENDER DATA: Assigned female at . status: : No status: NO. PATIENT RELEVANT IMPLANT DATA REVIEWED: Not Applicable PATIENT PRESENTS WITH AN IMPLANTABLE OR ATTACHED QUALITY AUDITOR: No RADIOLOGY DEPARTMENT: General X-ray: Exam(s) Completed: Spine X-Ray(s): Cervical FLEX/EXT Lower Extremity X-Ray(s): Knee, AP / Lat / Tunne / Merchant Bilateral Upper Extremity X-Ray(s): Shoulder, AP / TRUE AP / AXILLARY right PERIPHERAL IV DATA: Not applicable SIGNED BY: Robert Banerjee, RT(R) September 08, 2024 2:58 [facility]07-08-2025 NoteHNO ID: [id number] Author: XUAN BRANDON APRN.SNUFF MAKER Service: ? Author Type: Nurse Practitioner Type: Progress Notes Filed: 09/08/2024 14:10 Note Text: CC: Patient presents with: Same Day Appointment: fell approx 1.5week ago c/o shoulder pain and bilateral knee pain from fall. Patient is having problems lifting right arm HPI Recording using wishkicker software for draft documentation of the visit was discussed with the patient/authorized energy conservation representative; all questions welcomed and answered. Patient/authorized energy conservation representative agreed to proceed Peg Andre is a 79-year-old female with a history of osteoporosis, scoliosis, and chronic neck pain, presenting for evaluation of right shoulder and bilateral knee pain following a fall approximately 1.5 weeks ago. Peg reports a fall that occurred approximately 1.5 weeks ago while she was at home. She was picking up a bag from the floor and turned around quickly, resulting in a fall onto a hard floor. She believes she hit her right shoulder on a bench and both knees on the floor. She also reports a tender spot on her head but is unsure what she hit her head on. She denies any bruising or knots on her head. Since the fall, Peg has been experiencing severe pain in her right shoulder, rated as 25/10, which is exacerbated by lifting her arm, brushing her teeth, or brushing her hair. She also reports bilateral knee pain, rated as 10/10, which is less severe than the shoulder pain. She has been icing her knees and shoulder a couple of times. She denies any improvement in the pain and reports that it has worsened since the fall. She denies dizziness, lightheadedness, or blurry vision since the fall. Peg also reports ongoing stiffness in her neck. She has tried physical therapy and careers adviser for her neck pain, but reports that the pain worsened after three visits to the chiropractor. She was given a treatment plan by the chiropractor, but found it confusing and expensive. Review of Systems See HPI PAST MEDICAL HISTORY Diagnosis Date Allergic rhinitis, cause unspecified 11/08/2004 Carcinoma of kidney, renal cell 10/27/2011 left Degeneration of intervertebral disc, site unspecified 11/08/2004 Depressive disorder, not elsewhere classified 11/08/2004 Diaphragmatic hernia without mention of obstruction or gangrene 11/08/2004 Diarrhea 11/08/2004 Esophageal reflux 11/08/2004 Herpes zoster without complication 09/08/2020 Left leg Hypoglycemia, unspecified 11/08/2004 hypoglycemic events Internal hemorrhoids without mention of complication 11/08/2004 Lumbago 11/08/2004 Mass of right kidney 06/19/2021 Need for prophylactic hormone replacement therapy (postmenopausal) 11/08/2004 Osteoarthritis Osteoporosis 12/23/2014 Panic disorder without agoraphobia 11/08/2004 Persistent disorder of initiating or maintaining sleep 06/29/2010 PMH - PAST MEDICAL HISTORY OF 2009 Collapsed Arches in Feet Postmenopausal atrophic vaginitis 11/08/2004 Scoliosis 08/29/2011 Unequal leg length (acquired) 01/21/2006 Unspecified essential hypertension 11/08/2004 Urge incontinence 11/28/2011 Urinary frequency 06/29/2010 Uterovaginal prolapse 10/01/2013 PAST SURGICAL HISTORY Procedure Laterality Date ARTHRP KNE CONDYLEANDPLATU MEDIALANDLAT COMPARTMENTS Bilateral 02/21/2012 Knee replacement, total, Bilateral CHOLECYSTECTOMY 1981 open COLONOSCOPY - DIAGNOSTIC 03/30/2024 Poor prep. Repeat recommended. COLONOSCOPY FLX DX W/COLLJ SPEC WHEN PFRMD 06/09/2004 Colonoscopy COLONOSCOPY FLX DX W/COLLJ SPEC WHEN PFRMD 10/08/2016 Colonoscopy DILATION AND CURETTAGE DXAND/THER NONOBSTETRIC 1976 x 2 ESOPHAGOGASTRODUODENOSCOPY TRANSORAL DIAGNOSTIC 11/06/2012 EGD ESOPHAGOGASTRODUODENOSCOPY TRANSORAL DIAGNOSTIC 07/10/2013 EGD ESOPHAGOGASTRODUODENOSCOPY TRANSORAL DIAGNOSTIC 10/08/2016 EGD F COLONOSCOPY WITH POLYPECTOMY 06/12/2024 [facility] Serrated adenoma. LAPAROSCOPY PARTIAL NEPHRECTOMY Left 10/25/2011 Robotic left partial nephrectomy d/t renal cell carcinoma LIG/TRNSXJ FLP TUBE ABDL/VAG APPR UNI/BI 1975 Tubal ligation ALLERGIES Dust, Lexapro [Escitalopram Oxalate], Lisinopril, Mold, Nexium [Esomeprazole Magnesium], Nexium [Esomeprazole Magnesium], and Ragweed MEDICATIONS lactulose 10 gram/15 mL solution linaclotide (LINZESS) 145 mcg capsule Take 1 capsule by mouth once daily. Take capsule on an empty stomach at least 30 minutes before a meal at the same time each day. Capsule should be swallowed whole. DO NOT chew or crush hydroCHLOROthiazide 25 mg tablet Take 1 tablet by mouth once daily. LORazepam (ATIVAN) 0.5 mg Take 1 tablet by mouth once daily as needed (anxiety) for up to 90 days. 3 months supply. oxybutynin (DITROPAN) 5 mg tablet Take 1 tablet by mouth two times a day. omeprazole (PRILOSEC) 40 mg capsule Take 1 capsule by mouth once daily. dilTIAZem CR (TAZTIA XT) 180 mg 24 hr capsule Take 2 cap (more content not included)...[facility]07-08-2025 History of Present illness Narrative* Xuan Brandon, POTATO PEELER.SNUFF MAKER - 09/08/2024 2:04 PM EDT Images from the original note were not included. CC: Patient presents with: Same Day Appointment: fell approx 1.5week ago c/o shoulder pain and bilateral knee pain from fall. Patient is having problems lifting right arm HPI Recording using wishkicker software for draft documentation of the visit was discussed with the patient/authorized energy conservation representative; all questions welcomed and answered. Patient/authorized energy conservation representative agreed to proceed Peg Andre is a 79-year-old female with a history of osteoporosis, scoliosis, and chronic neck pain, presenting for evaluation of right shoulder and bilateral knee pain following a fall approximately 1.5 weeks ago. Peg reports a fall that occurred approximately 1.5 weeks ago while she was at home. She was picking up a bag from the floor and turned around quickly, resulting in a fall onto a hard floor. She believes she hit her right shoulder on a bench and both knees on the floor. She also reports a tender spot on her head but is unsure what she hit her head on. She denies any bruising or knots on her head. Since the fall, Peg has been experiencing severe pain in her right shoulder, rated as 25/10, which is exacerbated by lifting her arm, brushing her teeth, or brushing her hair. She also reports bilateral knee pain, rated as 10/10, which is less severe than the shoulder pain. She has been icing her knees and shoulder a couple of times. She denies any improvement in the pain and reports that it alcantar s worsened since the fall. She denies dizziness, lightheadedness, or blurry vision since the fall. Peg also reports ongoing stiffness in her neck. She has tried physical therapy and careers adviser for her neck pain, but reports that the pain worsened after three visits to the chiropractor. She was given a treatment plan by the chiropractor, but found it confusing and expensive. Review of Systems See HPI PAST MEDICAL HISTORY Diagnosis Date Allergic rhinitis, cause unspecified 11/08/2004 Carcinoma of kidney, renal cell 10/27/2011 left Degeneration of intervertebral disc, site unspecified 11/08/2004 Depressive disorder, not elsewhere classified 11/08/2004 Diaphragmatic hernia without mention of obstruction or gangrene 11/08/2004 Diarrhea 11/08/2004 Esophageal reflux 11/08/2004 Herpes zoster without complication 09/08/2020 Left leg Hypoglycemia, unspecified 11/08/2004 hypoglycemic events Internal hemorrhoids without mention of complication 11/08/2004 Lumbago 11/08/2004 Mass of right kidney 06/19/2021 Need for prophylactic hormone replacement therapy (postmenopausal) 11/08/2004 Osteoarthritis Osteoporosis 12/23/2014 Panic disorder without agoraphobia 11/08/2004 Persistent disorder of initiating or maintaining sleep 06/29/2010 PMH - PAST MEDICAL HISTORY OF 2009 Collapsed Arches in Feet Postmenopausal atrophic vaginitis 11/08/2004 Scoliosis 08/29/2011 Unequal leg length (acquired) 01/21/2006 Unspecified essential hypertension 11/08/2004 Urge incontinence 11/28/2011 Urinary frequency 06/29/2010 Uterovaginal prolapse 10/01/2013 PAST SURGICAL HISTORY Procedure Laterality Date ARTHRP KNE CONDYLE&PLATU MEDIAL&LAT COMPARTMENTS Bilateral 02/21/2012 Knee replacement, total, Bilateral CHOLECYSTECTOMY 1981 open COLONOSCOPY - DIAGNOSTIC 03/30/2024 Poor prep. Repeat recommended. COLONOSCOPY FLX DX W/COLLJ SPEC WHEN PFRMD 06/09/2004 Colonoscopy COLONOSCOPY FLX DX W/COLLJ SPEC WHEN PFRMD 10/08/2016 Colonoscopy DILATION & CURETTAGE DX&/THER NONOBSTETRIC 1976 x 2 ESOPHAGOGASTRODUODENOSCOPY TRANSORAL DIAGNOSTIC 11/06/2012 EGD ESOPHAGOGASTRODUODENOSCOPY TRANSORAL DIAGNOSTIC 07/10/2013 EGD ESOPHAGOGASTRODUODENOSCOPY TRANSORAL DIAGNOSTIC 10/08/2016 EGD F COLONOSCOPY WITH POLYPECTOMY 06/12/2024 [facility] Serrated adenoma. LAPAROSCOPY PARTIAL NEPHRECTOMY Left 10/25/2011 Robotic left partial nephrectomy d/t renal cell carcinoma LIG/TRNSXJ FLP TUBE ABDL/VAG APPR UNI/BI 1975 Tubal ligation ALLERGIES Dust, Lexapro [Escitalopram Oxalate], Lisinopril, Mold, Nexium [Esomeprazole Magnesium], Nexium [Esomeprazole Magnesium], and Ragweed MEDICATIONS lactulose 10 gram/15 mL solution linaclotide (LINZESS) 145 mcg capsule Take 1 capsule by mouth once daily. Take capsule on an empty stomach at least 30 minutes before a meal at the same time each day. Capsule should be swallowed whole. DO NOT chew or crush hydroCHLOROthiazide 25 mg tablet Take 1 tablet by mouth once daily. LORazepam (ATIVAN) 0.5 mg Take 1 tablet by mouth once daily as needed (anxiety) for up to 90 days. 3 months supply. oxybutynin (DITROPAN) 5 mg tablet Take 1 tablet by mouth two times a day. omeprazole (PRILOSEC) 40 mg capsule Take 1 capsule by mouth once daily. dilTIAZem CR (TAZTIA XT) 180 mg 24 hr capsule Take 2 capsules by mouth once daily. losartan (COZAAR) 50 mg tablet Take 1 tablet by mouth two times a day. docusate sodium (COLACE) 100 mg capsule Take 1 capsule by mouth two times a day. Cholecalciferol, Vitamin D3, 50 mcg (2,000 unit) cap Take 1 capsule by mouth once daily. Prescribedby endocrinology (Dr. César Johnson) denosumab (PROLIA) 60 mg/mL Once every 6 months. Prescribed by endocrinology (Dr. César Johnson) Dextrin (EASY FIBER) 3 gram/3.5 gram powd Take 3 g by mouth once daily. Mixed with water. Sennosides (SENOKOT EXTRA STRENGTH) 17.2 mg tab Take 1 tablet by mouth daily with lunch AND 2 tablets daily at bedtime. lactobacillus comb no.10 (PROBIOTIC) 20 billion cell cap Take 1 capsule by mouth daily at bedtime. fexofenadine (MUCINEX ALLERGY) 180 mg tablet Take 180 mg by mouth once daily. fluticasone (FLONASE) 50 mcg/actuation nasal spray Use 2 Sprays in each nostril once daily. Rinse mouth after use. ACETAMINOPHEN (TYLENOL ARTHRITIS ORAL) Take by mouth. FAMILY HISTORY Problem Relation Age of Onset Hypertension Mother Osteoporosis Mother Thyroid Mother Alcohol/Drug Father alcoholic cirrhosis Breast Cancer Other maternal cousin Coronary Artery Disease Brother of [place] at 54. Social History Tobacco Use Smoking status: Former Current packs/day: 0.00 Average packs/day: 1 pack/day for 23.0 years (23.0 ttl pk-yrs) Types: Cigarettes Start date: 03/04/1956 Quit date: 03/04/1979 Years since quittin.5 Smokeless tobacco: Never Vaping Use Vaping status: Never Used Substance Use Topics Alcohol use: No Drug use: No BP 136/70 (BP Site: Left Arm, BP Position: Sitting, BP Cuff Size: Regular Adult) Pulse 74 Temp 37.6 C (99.7 F) (Temporal) Resp 14 Ht 167.6 cm (5' 6") Wt 55.6 kg (122 lb 9.2 oz) SpO2 98% BMI 19.78 kg/m Physical Exam Vitals reviewed. Constitutional: Appearance: Normal appearance. HENT: Head: Normocephalic and atraumatic. No abrasion, contusion or masses. Musculoskeletal: Right shoulder: Tenderness present. No swelling, deformity or crepitus. Decreased range of motion. Normal strength. Arms: Cervical back: Tenderness (right paraspinal and trapezius) present. No swelling, deformity, rigidity, torticollis or crepitus. Pain with movement present. Decreased range of motion (secondary to pain). Right knee: Ecchymosis and bony tenderness present. No swelling, deformity or crepitus. Left knee: Ecchymosis and bony tenderness present. No swelling, deformity or crepitus. Comments: Normal gait Neurological: Mental Status: She is alert. Assessment/Plan 1. Acute pain of both knees (M25.561) Fall on same level from slipping, tripping or stumbling, initial encounter (W01.0XXA) Patient experienced a fall approximately 1.5 weeks ago, resulting in acute pain in both knees and right shoulder. Pain is rated at 10/10. No improvement noted since the incident. - Ordered X-rays of both knees to rule out fractures. - Continue applying ice and consider using Voltaren gel for pain management. - Follow-up pending X-ray results. 2. Acute pain of right shoulder (M25.511) Severe pain in the right shoulder since falling, rated at 25/10, with significant limitation in range of motion. No improvement noted since the incident. - Ordered X-ray of the right shoulder to rule out fractures or dislocations. - Continue applying ice and consider using Tylenol for pain management. - Follow-up pending X-ray results. 3. Chronic neck pain (M54.2) Chronic neck pain, worsened after three chiropractic visits. No recent trauma associated with the current episode. - Ordered X-ray of the neck to rule out fractures or other abnormalities. - Referred to physical therapy at [facility] for neck pain management. - Continue using heat and ice as needed. 4. Age related osteoporosis, unspecified pathological fracture presence (M81.0) History of osteoporosis increasing the risk of fractures. - Ordered X-rays to rule out fractures in the knees, shoulder, and neck. I spent a total of 30 minutes on the date of the service which included preparing to see the patient, [id number] patient care, completing clinical documentation, performing a medically appropriate examination, counseling and educating the patient/family/caregiver, and ordering medications, tests,or procedures. Prescription instructions reviewed with patient as applicable. Potential red flag symptoms discussed with the patient. Reviewed appropriate action plan to take if red flag symptoms occur. Patient agreeable to treatment plan. Xuan Brandon APRN.SNUFF MAKER documented [facility] Instructions* Patient Instructions* Xuan Brandon APRN.NICOLE - 09/08/2024 2:01 PM EDT We discussed your recent fall and associated injuries: - You reported pain in your right shoulder, both knees, and a stiff neck following your fall approximately 1.5 weeks ago. You also mentioned difficulty raising your right arm and performing daily activities like brushing your teeth or hair. - I ordered x-rays of your right shoulder, both knees, and your neck to check for fractures or dislocations. These will be completed downstairs today. Results for the shoulder and knees will be available today, while the neck x-ray may take longer as it is not urgent. - I will send a referral for physical therapy to [facility], as you prefer to go there. They will assist with your neck pain - Continue icing your knees and shoulder as needed. You may also use heat if it provides relief. - For pain management, you can take Tylenol as needed. For your knees, you may try Voltaren gel (ananti-inflammatory gel) to help reduce pain. - Riding your exercise bike is okay to resume, as it is low-impact and should not worsen your knee pain. We discussed your history of neck pain and prior careers adviser: - You mentioned that careers adviser worsened your neck pain and was not helpful. I recommend physical therapy instead of chiropractic treatment for your neck. Next steps: - Complete the x-rays of your right shoulder, both knees, and neck today. - Continue using ice, heat, Tylenol, and Voltaren gel as needed for pain relief. Please let me know if your symptoms worsen or if you have any additional concerns. documented in this encounterS[facility]06-[facility]-2025 NoteHNO ID: [id number] Author: XUAN BRANDON APRN.NICOLE Service: ? Author Type: Nurse Practitioner Type: Progress Notes Filed: 08/03/2024 15:08 Note Text: CC: Patient presents with: Pain: Neck x 6 weeks creating headache daily HPI Recording using wishkicker software for draft documentation of the visit was discussed with the patient/authorized energy conservation representative; all questions welcomed and answered. Patient/authorized energy conservation representative agreed to proceed Peg is a 79-year-old female presenting with neck pain, sinus drainage, and fatigue. Peg reports a 3-4 week history of constant, dull, aching pain in the posterior neck, extending between the shoulder blades and associated with muscle knots. The pain is exacerbated by head movements, including turning, looking up, and looking down, and it disrupts her sleep. She also experiences shoulder aches but denies any paresthesia or hypoesthesia in the arms. She has no prior history of neck pain and denies any recent falls or injuries. Concurrently, she reports a 6-week history of posterior cephalalgia, chills, and fatigue. The headaches are associated with watery eyes and occasional mild blurred vision, but she denies otalgia or pressure. She has been experiencing increased sinus drainage, with green and yellow discharge, for the past month, along with intermittent coughing spells. Cough is non-productive. She has a history of seasonal allergies and is currently taking Zyrtec, which she reports is effective. She denies dyspnea, wheezing, or dental pain. Review of Systems Constitutional: Negative for appetite change and fever. Respiratory: Positive for cough. Negative for shortness of breath and wheezing. Cardiovascular: Negative for chest pain, palpitations and leg swelling. Musculoskeletal: Negative for neck stiffness. Neurological: Negative for dizziness, tremors, seizures, syncope, speech difficulty, weakness, light-headedness and numbness. PAST MEDICAL HISTORY Diagnosis Date Allergic rhinitis, cause unspecified 11/08/2004 Carcinoma of kidney, renal cell 10/27/2011 left Degeneration of intervertebral disc, site unspecified 11/08/2004 Depressive disorder, not elsewhere classified 11/08/2004 Diaphragmatic hernia without mention of obstruction or gangrene 11/08/2004 Diarrhea 11/08/2004 Esophageal reflux 11/08/2004 Herpes zoster without complication 09/08/2020 Left leg Hypoglycemia, unspecified 11/08/2004 hypoglycemic events Internal hemorrhoids without mention of complication 11/08/2004 Lumbago 11/08/2004 Mass of right kidney 06/19/2021 Need for prophylactic hormone replacement therapy (postmenopausal) 11/08/2004 Osteoarthritis Osteoporosis 12/23/2014 Panic disorder without agoraphobia 11/08/2004 Persistent disorder of initiating or maintaining sleep 06/29/2010 PMH - PAST MEDICAL HISTORY OF 2009 Collapsed Arches in Feet Postmenopausal atrophic vaginitis 11/08/2004 Scoliosis 08/29/2011 Unequal leg length (acquired) 01/21/2006 Unspecified essential hypertension 11/08/2004 Urge incontinence 11/28/2011 Urinary frequency 06/29/2010 Uterovaginal prolapse 10/01/2013 PAST SURGICAL HISTORY Procedure Laterality Date ARTHRP KNE CONDYLEANDPLATU MEDIALANDLAT COMPARTMENTS Bilateral 02/21/2012 Knee replacement, total, Bilateral CHOLECYSTECTOMY 1981 open COLONOSCOPY - DIAGNOSTIC 03/30/2024 Poor prep. Repeat recommended. COLONOSCOPY FLX DX W/COLLJ SPEC WHEN PFRMD 06/09/2004 Colonoscopy COLONOSCOPY FLX DX W/COLLJ SPEC WHEN PFRMD 10/08/2016 Colonoscopy DILATION AND CURETTAGE DXAND/THER NONOBSTETRIC 1975 x 2 ESOPHAGOGASTRODUODENOSCOPY TRANSORAL DIAGNOSTIC 11/06/2012 EGD ESOPHAGOGASTRODUODENOSCOPY TRANSORAL DIAGNOSTIC 07/10/2013 EGD ESOPHAGOGASTRODUODENOSCOPY TRANSORAL DIAGNOSTIC 10/08/2016 EGD F COLONOSCOPY WITH POLYPECTOMY 06/12/2024 [facility] Serrated adenoma. LAPAROSCOPY PARTIAL NEPHRECTOMY Left 10/25/2011 Robotic left partial nephrectomy d/t renal cell carcinoma LIG/TRNSXJ FLP TUBE ABDL/VAG APPR UNI/BI 1975 Tubal ligation ALLERGIES Dust, Lexapro [Escitalopram Oxalate], Lisinopril, Mold, Nexium [Esomeprazole Magnesium], Nexium [Esomeprazole Magnesium], and Ragweed MEDICATIONS lactulose 10 gram/15 mL solution linaclotide (LINZESS) 145 mcg capsule Take 1 capsule by mouth once daily. Take capsule on an empty stomach at least 30 minutes before a meal at the same time each day. Capsule should be swallowed whole. DO NOT chew or crush hydroCHLOROthiazide 25 mg tablet Take 1 tablet by mouth once daily. LORazepam (ATIVAN) 0.5 mg Take 1 tablet by mouth once daily as needed (anxiety) for up to 90 days. 3 months supply. oxybutynin (DITROPAN) 5 mg tablet Take 1 tablet by mouth two times a day. omeprazole (PRILOSEC) 40 mg capsule Take 1 capsule by mouth once daily. dilTIAZem CR (TAZTIA XT) 180 mg 24 hr capsule Take 2 capsules by mouth once daily. losartan (COZAAR) 50 mg tablet Take 1 table (more content not included)... [facility]06-02[facility]25 History of Present illness Narrative* Xuan Brandon, KWASI.SNUFF MAKER - 08/03/2024 3:04 PM EDT CC: Patient presents with: Pain: Neck x 6 weeks creating headache daily HPI Recording using wishkicker software for draft documentation of the visit was discussed with the patient/authorized energy conservation representative; all questions welcomed and answered. Patient/authorized energy conservation representative agreed to proceed Peg is a 79-year-old female presenting with neck pain, sinus drainage, and fatigue. Peg reports a 3-4 week history of constant, dull, aching pain in the posterior neck, extending between the shoulder blades and associated with muscle knots. The pain is exacerbated by head movements, including turning, looking up, and looking down, and it disrupts her sleep. She also experiencesshoulder aches but denies any paresthesia or hypoesthesia in the arms. She has no prior history of neck pain and denies any recent falls or injuries. Concurrently, she reports a 6-week history of posterior cephalalgia, chills, and fatigue. The headaches are associated with watery eyes and occasional mild blurred vision, but she denies otalgia or pressure. She has been experiencing increased sinus drainage, with green and yellow discharge, for the past month, along with intermittent coughing spells. Cough is non-productive. She has a history ofseasonal allergies and is currently taking Zyrtec, which she reports is effective. She denies dyspnea, wheezing, or dental pain. Review of Systems Constitutional: Negative for appetite change and fever. Respiratory: Positive for cough. Negative for shortness of breath and wheezing. Cardiovascular: Negative for chest pain, palpitations and leg swelling. Musculoskeletal: Negative for neck stiffness. Neurological: Negative for dizziness, tremors, seizures, syncope, speech difficulty, weakness, light-headedness and numbness. PAST MEDICAL HISTORY Diagnosis Date Allergic rhinitis, cause unspecified 11/08/2004 Carcinoma of kidney, renal cell 10/27/2011 left Degeneration of intervertebral disc, site unspecified 11/08/2004 Depressive disorder, not elsewhere classified 11/08/2004 Diaphragmatic hernia without mention of obstruction or gangrene 11/08/2004 Diarrhea 11/08/2004 Esophageal reflux 11/08/2004 Herpes zoster without complication 09/08/2020 Left leg Hypoglycemia, unspecified 11/08/2004 hypoglycemic events Internal hemorrhoids without mention of complication 11/08/2004 Lumbago 11/08/2004 Mass of right kidney 06/19/2021 Need for prophylactic hormone replacement therapy (postmenopausal) 11/08/2004 Osteoarthritis Osteoporosis 12/23/2014 Panic disorder without agoraphobia 11/08/2004 Persistent disorder of initiating or maintaining sleep 06/29/2010 PMH - PAST MEDICAL HISTORY OF 2009 Collapsed Arches in Feet Postmenopausal atrophic vaginitis 11/08/2004 Scoliosis 08/29/2011 Unequal leg length (acquired) 01/21/2006 Unspecified essential hypertension 11/08/2004 Urge incontinence 11/28/2011 Urinary frequency 06/29/2010 Uterovaginal prolapse 10/01/2013 PAST SURGICAL HISTORY Procedure Laterality Date ARTHRP KNE CONDYLE&PLATU MEDIAL&LAT COMPARTMENTS Bilateral 02/21/2012 Knee replacement, total, Bilateral CHOLECYSTECTOMY 1981 open COLONOSCOPY - DIAGNOSTIC 03/30/2024 Poor prep. Repeat recommended. COLONOSCOPY FLX DX W/COLLJ SPEC WHEN PFRMD 06/09/2004 Colonoscopy COLONOSCOPY FLX DX W/COLLJ SPEC WHEN PFRMD 10/08/2016 Colonoscopy DILATION & CURETTAGE DX&/THER NONOBSTETRIC 1976 x 2 ESOPHAGOGASTRODUODENOSCOPY TRANSORAL DIAGNOSTIC 11/06/2012 EGD ESOPHAGOGASTRODUODENOSCOPY TRANSORAL DIAGNOSTIC 07/10/2013 EGD ESOPHAGOGASTRODUODENOSCOPY TRANSORAL DIAGNOSTIC 10/08/2016 EGD F COLONOSCOPY WITH POLYPECTOMY 06/12/2024 [facility] Serrated adenoma. LAPAROSCOPY PARTIAL NEPHRECTOMY Left 10/25/2011 Robotic left partial nephrectomy d/t renal cell carcinoma LIG/TRNSXJ FLP TUBE ABDL/VAG APPR UNI/BI 1975 Tubal ligation ALLERGIES Dust, Lexapro [Escitalopram Oxalate], Lisinopril, Mold, Nexium [Esomeprazole Magnesium], Nexium [Esomeprazole Magnesium], and Ragweed MEDICATIONS lactulose 10 gram/15 mL solution linaclotide (LINZESS) 145 mcg capsule Take 1 capsule by mouth once daily. Take capsule on an empty stomach at least 30 minutes before a meal at the same time each day. Capsule should be swallowed whole. DO NOT chew or crush hydroCHLOROthiazide 25 mg tablet Take 1 tablet by mouth once daily. LORazepam (ATIVAN) 0.5 mg Take 1 tablet by mouth once daily as needed (anxiety) for up to 90 days. 3 months supply. oxybutynin (DITROPAN) 5 mg tablet Take 1 tablet by mouth two times a day. omeprazole (PRILOSEC) 40 mg capsule Take 1 capsule by mouth once daily. dilTIAZem CR (TAZTIA XT) 180 mg 24 hr capsule Take 2 capsules by mouth once daily. losartan (COZAAR) 50 mg tablet Take 1 tablet by mouth two times a day. docusate sodium (COLACE) 100 mg capsule Take 1 capsule by mouth two times a day. Cholecalciferol, Vitamin D3, 50 mcg (2,000 unit) cap Take 1 capsule by mouth once daily. Prescribedby endocrinology (Dr. César Johnson) denosumab (PROLIA) 60 mg/mL Once every 6 months. Prescribed by endocrinology (Dr. César Johnson) Dextrin (EASY FIBER) 3 gram/3.5 gram powd Take 3 g by mouth once daily. Mixed with water. Sennosides (SENOKOT EXTRA STRENGTH) 17.2 mg tab Take 1 tablet by mouth daily with lunch AND 2 tablets daily at bedtime. lactobacillus comb no.10 (PROBIOTIC) 20 billion cell cap Take 1 capsule by mouth daily at bedtime. fexofenadine (MUCINEX ALLERGY) 180 mg tablet Take 180 mg by mouth once daily. fluticasone (FLONASE) 50 mcg/actuation nasal spray Use 2 Sprays in each nostril once daily. Rinse mouth after use. ACETAMINOPHEN (TYLENOL ARTHRITIS ORAL) Take by mouth. amoxicillin-clavulanate potassium (AUGMENTIN) 875-125 mg per tablet Take 1 tablet by mouth two times a day for 7 days. FAMILY HISTORY Problem Relation Age of Onset Hypertension Mother Osteoporosis Mother Thyroid Mother Alcohol/Drug Father alcoholic cirrhosis Breast Cancer Other maternal cousin Coronary Artery Disease Brother of [place] at 54. Social History Tobacco Use Smoking status: Former Current packs/day: 0.00 Average packs/day: 1 pack/day for 23.0 years (23.0 ttl pk-yrs) Types: Cigarettes Start date: 03/04/1956 Quit date: 03/04/1979 Years since quittin.4 Smokeless tobacco: Never Vaping Use Vaping status: Never Used Substance Use Topics Alcohol use: No Drug use: No BP 140/66 Pulse (!) 56 Resp 12 Wt 55.3 kg (122 lb) SpO2 99% BMI 19.69 kg/m Physical Exam Vitals reviewed. Constitutional: General: She is not in acute distress. Appearance: She is ill-appearing. She is not toxic-appearing. HENT: Head: Normocephalic and atraumatic. Right Ear: Tympanic membrane normal. Left Ear: Tympanic membrane normal. Nose: Mucosal edema present. Right Sinus: Maxillary sinus tenderness present. No frontal sinus tenderness. Left Sinus: Maxillary sinus tenderness present. No frontal sinus tenderness. Mouth/Throat: Mouth: Mucous membranes are moist. Pharynx: Oropharynx is clear. Eyes: Conjunctiva/sclera: Conjunctivae normal. Pupils: Pupils are equal, round, and reactive to light. Cardiovascular: Rate and Rhythm: Normal rate and regular rhythm. Heart sounds: Normal heart sounds. No murmur heard. Pulmonary: Effort: Pulmonary effort is normal. Breath sounds: No wheezing, rhonchi or rales. Musculoskeletal: Cervical back: No edema, rigidity or torticollis. Pain with movement, spinous process tenderness and muscular tenderness present. Decreased range of motion (secondary to pain). Lymphadenopathy: Cervical: No cervical adenopathy. Skin: General: Skin is warm and dry. Neurological: Mental Status: She is alert. Psychiatric: Mood and Affect: Mood normal. Assessment/Plan 1. Acute non-recurrent maxillary sinusitis (J01.00) Symptoms include purulent nasal discharge, cough, and chills. No otalgia or ear pressure noted. Lungs are clear on auscultation. - Initiated Augmentin - Monitor for resolution of symptoms; if symptoms persist or worsen, follow-up is necessary. 2. Neck pain (M54.2) Localized to the posterior neck and between the shoulder blades, with associated headaches and shoulder pain. No history of trauma or injury. No numbness or tingling in the arms. Physical exam reveals tenderness in the cervical and thoracic regions. No prior history of similar neck pain. - Monitor response to antibiotic treatment for sinusitis, as systemic infection may contribute to myalgia. - If neck pain persists after completion of antibiotic course, further evaluation in the office is warranted. Prescription instructions reviewed with patient as applicable. Potential red flag symptoms discussed with the patient. Reviewed appropriate action plan to take if red flag symptoms occur. Patient agreeable to treatment plan. Xuan Brandon APRN.CNP documented in this encounter[facility] Instructions* Patient Instructions* Xuan Brandon APRN.CNP - 08/03/2024 3:04 PM EDT We discussed your sinus infection and neck pain: - I am treating you for a sinus infection with Augmentin (antibiotic). Please take this as prescribed. The prescription has been sent to your pharmacy. - If your symptoms, including neck pain, do not improve after completing the antibiotics, please schedule a follow-up appointment with me. - If your symptoms improve completely after the antibiotics, no further action is needed. We discussed your fatigue, chills, and overall discomfort: - These symptoms may be related to the sinus infection. The antibiotics should help improve these as well. - If you continue to feel fatigued, chilled, or unwell after completing the antibiotics, please contact our office. We discussed your neck pain: - I do not believe the neck pain is related to a more serious condition, as there is no history of injury or fall. - If the neck pain persists after your sinus infection resolves, please schedule a follow-up appointment for further evaluation. Please monitor your symptoms closely and let me know if they do not improve or worsen. You do not need to contact me if everything resolves after completing the antibiotics. documented in this encounterS[facility]05-30-2025 Telephone encounter Note * Telephone Encounter - Crystal Vega OCCA - 07/31/2024 2:36 PM EDT Please see MC message received today, 07/31. Patient no longer needing refill. MANJU Cabrales [facility]05-30-2025 Miscellaneous Notes* Telephone Encounter - Crystal Vega OCCA - 07/31/2024 2:36 PM EDT Please see message received today, 07/31. Patient no longer needing refill. MANJU Cabrales documented in this encounterS[facility]-30-2025 Telephone encounter Note * Telephone Encounter - Codie Monson RN - 07/31/2024 8:28 AM EDT Protocol recommends see provider within 3 days. Pt had already made a [employer] appt for this Saturday the . Offered appt today but pt states that she will keep her appt Saturday due to transportation issues. Reason for Disposition [1] MODERATE neck pain (e.g., interferes with normal activities) AND [2] present > 3 days Answer Assessment - Initial Assessment Questions Pt states she has been taking some OTC sinus medication which helps her headache. 1. LOCATION: Pt states it hurts above her nose and across her forehead 2. ONSET: pt states about 5-6 days ago 3. PATTERN: states it has been constant but each day it is improving 4. SEVERITY: Today 4/10. Yesterday was a 6-7/10. - MILD (1-3): Doesn't interfere with normal activities. - MODERATE (4-7): Interferes with normal activities or awakens from sleep. - SEVERE (8-10): Excruciating pain, unable to do any normal activities. - WORST HEADACHE (10+): 'Worst headache' of life. 5. RECURRENT SYMPTOM: Pt states she has had headaches like this before and usually sees Dr. Collins because it is her sinus' and he gives her an antibiotic. 6. CAUSE: pt feels it is her sinus' 7. MIGRAINE: denies 8. HEAD INJURY: denies 9. OTHER SYMPTOMS: denies fever, eye pain, or sore throat. States she does have a runny nose-clear drainage and had a cough recently but was seen by Dr. Baeza for that and does not have it currently. Does have a stiff neck. See protocol for assessment of that. Answer Assessment - Initial Assessment Questions 1. ONSET: a couple of weeks ago 2. LOCATION: on both sides of her neck across the front of both shoulders 3. PATTERN constant. Pt is able to bend her chin to her chest and bend her neck backwards with no difficulty. 4. SEVERITY: 5/10 - NO PAIN (0): no pain or only slight stiffness - MILD (1-3): doesn't interfere with normal activities - MODERATE (4-7): interferes with normal activities or awakens from sleep - SEVERE (8-10): excruciating pain, unable to do any normal activities 5. RADIATION: denies it radiating anywhere else 6. CORD SYMPTOMS: denies any weakness or numbness and tingling of her arms or legs. 7. CAUSE: Pt feels it is an issue with her sinus' or from how her head hangs when she falls asleep in the recliner 8. NECK OVERUSE: Pt states she falls asleep in her encounter frequently and when she wakes up, her head is always bent down. 9. OTHER SYMPTOMS: denies fever, chest pain, difficulty breathing, or shortness of breath. Pt c/o headache-see other protocol for assessment of that. Pt also states she notices maybe two swollen lymph nodes on the back of her neck. Protocols used: [id number], Neck Pain or [id number]-BM [facility] Miscellaneous Notes* Telephone Encounter - Codie Monson RN - 07/31/2024 8:28 AM EDT Protocol recommends see provider within 3 days. Pt had already made a [employer] appt for this Saturday the . Offered appt today but pt states that she will keep her appt Saturday due to transportation issues. Reason for Disposition [1] MODERATE neck pain (e.g., interferes with normal activities) AND [2] present > 3 days Answer Assessment - Initial Assessment Questions Pt states she has been taking some OTC sinus medication which helps her headache. 1. LOCATION: Pt states it hurts above her nose and across her forehead 2. ONSET: pt states about 5-6 days ago 3. PATTERN: states it has been constant but each day it is improving 4. SEVERITY: Today 4/10. Yesterday was a 6-7/10. - MILD (1-3): Doesn't interfere with normal activities. - MODERATE (4-7): Interferes with normal activities or awakens from sleep. - SEVERE (8-10): Excruciating pain, unable to do any normal activities. - WORST HEADACHE (10+): 'Worst headache' of life. 5. RECURRENT SYMPTOM: Pt states she has had headaches like this before and usually sees Dr. Collins because it is her sinus' and he gives her an antibiotic. 6. CAUSE: pt feels it is her sinus' 7. MIGRAINE: denies 8. HEAD INJURY: denies 9. OTHER SYMPTOMS: denies fever, eye pain, or sore throat. States she does have a runny nose-clear drainage and had a cough recently but was seen by Dr. Baeza for that and does not have it currently. Does have a stiff neck. See protocol for assessment of that. Answer Assessment - Initial Assessment Questions 1. ONSET: a couple of weeks ago 2. LOCATION: on both sides of her neck across the front of both shoulders 3. PATTERN constant. Pt is able to bend her chin to her chest and bend her neck backwards with no difficulty. 4. SEVERITY: 5/10 - NO PAIN (0): no pain or only slight stiffness - MILD (1-3): doesn't interfere with normal activities - MODERATE (4-7): interferes with normal activities or awakens from sleep - SEVERE (8-10): excruciating pain, unable to do any normal activities 5. RADIATION: denies it radiating anywhere else 6. CORD SYMPTOMS: denies any weakness or numbness and tingling of her arms or legs. 7. CAUSE: Pt feels it is an issue with her sinus' or from how her head hangs when she falls asleep in the recliner 8. NECK OVERUSE: Pt states she falls asleep in her encounter frequently and when she wakes up, her head is always bent down. 9. OTHER SYMPTOMS: denies fever, chest pain, difficulty breathing, or shortness of breath. Pt c/o headache-see other protocol for assessment of that. Pt also states she notices maybe two swollen lymph nodes on the back of her neck. Protocols used: [id number]-OF, Neck Pain or [id number]-SI * Telephone Encounter - Codie Monson RN - 07/31/2024 8:06 AM EDT Still having issues with outgoing calls with static and asked pt to return the call. documented in this encounter[facility]-30-2025 Telephone encounter Note * Telephone Encounter - Codie Monson RN - 07/31/2024 8:06 AM EDT Still having issues with outgoing calls with static and asked pt to return the call. [facility] Evaluation note* Diagnosis Onset Date Resolution Status Admit Date Colonic stricture acute July h2024 2:55pm Constipation acute July 15 2:55pm Constipation acute September 23, 2 025 2:26pm [facility] Work Phone: 1(740) 605-614405-14-2025 Evaluation note* Diagnosis Onset Date Resolution Status Admit Date Colonic stricture acute July h2024 2:55pm Constipation acute July 15 2:55pm Constipation acute September 23, 2 025 2:26pm Osteoarthritis of right shoulder acute November 09, 2 025 2:28pm Right rotator cuff tendinitis acute November 09, 2024 2:28pm [facility] Work Phone: 1(704) 663-511305-01-2025 NoteHNO ID: [id number] Author: FEMI BAEZA MD Service: ? Author Type: Physician Type: Progress Notes Filed: 07/02/2024 18:10 Note Text: This note was created using [employer] Management[employer]. Amish Andre is a 79 year old female. She stopped hydrochlorothiazide due to a faint rash in her chest. Edema was better. Her hypertension was stable. Weight was stable. She continued with constipation. She was also not pleased with [facility]. She felt her colon biopsy results were not communicated to her, other than the recommendation she have a repeat colonoscopy in one year for a precancerous lesion. Review of Systems Constitutional: Negative for fatigue and fever. Respiratory: Negative for cough and shortness of breath. Cardiovascular: Negative for chest pain and leg swelling. Gastrointestinal: Positive for constipation. Genitourinary: Negative for dysuria. ACTIVE PROBLEM LIST Essential Hypertension Esophageal Reflux Vitamin D Deficiency Constipation Scoliosis Urge Incontinence History of Renal Cell Carcinoma Osteoporosis Anxiety Pain in Right Hip Radiculopathy, Lumbar Region Mass of Right Kidney Social History Tobacco Use Smoking status: Former Current packs/day: 0.00 Average packs/day: 1 pack/day for 23.0 years (23.0 ttl pk-yrs) Types: Cigarettes Start date: 03/04/1956 Quit date: 03/04/1979 Years since quittin.3 Smokeless tobacco: Never Vaping Use Vaping status: Never Used Substance Use Topics Alcohol use: No Drug use: No Current Outpatient Medications Medication Sig linaclotide (LINZESS) 145 mcg capsule Take 1 capsule by mouth once daily. Take capsule on an empty stomach at least 30 minutes before a meal at the same time each day. Capsule should be swallowed whole. DO NOT chew or crush hydroCHLOROthiazide 25 mg tablet Take 1 tablet by mouth once daily. (Patient not taking: Reported on 07/02/2024) LORazepam (ATIVAN) 0.5 mg Take 1 tablet by mouth once daily as needed (anxiety) for up to 90 days. 3 months supply. oxybutynin (DITROPAN) 5 mg tablet Take 1 tablet by mouth two times a day. omeprazole (PRILOSEC) 40 mg capsule Take 1 capsule by mouth once daily. dilTIAZem CR (TAZTIA XT) 180 mg 24 hr capsule Take 2 capsules by mouth once daily. losartan (COZAAR) 50 mg tablet Take 1 tablet by mouth two times a day. docusate sodium (COLACE) 100 mg capsule Take 1 capsule by mouth two times a day. Cholecalciferol, Vitamin D3, 50 mcg (2,000 unit) cap Take 1 capsule by mouth once daily. Prescribed by endocrinology (Dr. César Johnson) denosumab (PROLIA) 60 mg/mL Once every 6 months. Prescribed by endocrinology (Dr. César Johnson) Dextrin (EASY FIBER) 3 gram/3.5 gram powd Take 3 g by mouth once daily. Mixed with water. Sennosides (SENOKOT EXTRA STRENGTH) 17.2 mg tab Take 1 tablet by mouth daily with lunch AND 2 tablets daily at bedtime. lactobacillus comb no.10 (PROBIOTIC) 20 billion cell cap Take 1 capsule by mouth daily at bedtime. fexofenadine (MUCINEX ALLERGY) 180 mg tablet Take 180 mg by mouth once daily. fluticasone (FLONASE) 50 mcg/actuation nasal spray Use 2 Sprays in each nostril once daily. Rinse mouth after use. ACETAMINOPHEN (TYLENOL ARTHRITIS ORAL) Take by mouth. No current facility-administered medications for this visit. Objective BP 130/64 (BP Site: Left Arm, BP Position: Sitting, BP Cuff Size: Large Adult) Pulse 60 Resp 12 Wt 56.9 kg (125 lb 7.1 oz) BMI 20.25 kg/m? Physical Exam Constitutional: General: She is not in acute distress. Appearance: She is not ill-appearing. Cardiovascular: Rate and Rhythm: Normal rate and regular rhythm. Heart sounds: No murmur heard. No gallop. Pulmonary: Breath sounds: Normal breath sounds. Musculoskeletal: Right lower leg: No edema. Left lower leg: No edema. Skin: Findings: Rash present. Comments: Faint resolving maculopapular rash of the chest. Neurological: Mental Status: She is alert. Assessment and Plan 1. Lower leg edema - ICD9: 782.3, ICD10: R60.0 (primary diagnosis) Improved. 2. Essential hypertension - ICD9: 401.9, ICD10: I10 - Improving control - Continue current medications - Trial hydrochlorothiazide again in 1 week and see if rash recurs. 3. Chronic idiopathic constipation - ICD9: 564.00, ICD10: K59.04 2nd opinion. - CONSULT TO GASTROENTEROLOGY 4. Weight loss, non-intentional - ICD9: 783.21, ICD10: R63.4 - CONSULT TO GASTROENTEROLOGY 5. Polyp of colon, unspecified part of colon, unspecified type - ICD9: 211.3, ICD10: K63.5 Pathology retrieved from [facility]: serrated adenoma. - CONSULT TO GASTROENTEROLOGY Femi Baeza [facility]05-01-2025 History of Present illness Narrative* Femi Baeza MD - 07/02/2024 4:39 PM EDT This note was created using [employer]. Subjective Leonel Andre is a 79 year old female. She stopped hydrochlorothiazide due to a faint rash in her chest. Edema was better. Her hypertension was stable. Weight was stable. She continued with constipation. She was also not pleased with [facility]. She felt her colon biopsy results were not communicated to her, other than the recommendation she have a repeat colonoscopy in one year for a precancerous lesion. Review of Systems Constitutional: Negative for fatigue and fever. Respiratory: Negative for cough and shortness of breath. Cardiovascular: Negative for chest pain and leg swelling. Gastrointestinal: Positive for constipation. Genitourinary: Negative for dysuria. ACTIVE PROBLEM LIST Essential Hypertension Esophageal Reflux Vitamin D Deficiency Constipation Scoliosis Urge Incontinence History of Renal Cell Carcinoma Osteoporosis Anxiety Pain in Right Hip Radiculopathy, Lumbar Region Mass of Right Kidney Social History Tobacco Use Smoking status: Former Current packs/day: 0.00 Average packs/day: 1 pack/day for 23.0 years (23.0 ttl pk-yrs) Types: Cigarettes Start date: 03/04/1956 Quit date: 03/04/1979 Years since quittin.3 Smokeless tobacco: Never Vaping Use Vaping status: Never Used Substance Use Topics Alcohol use: No Drug use: No Current Outpatient Medications Medication Sig linaclotide (LINZESS) 145 mcg capsule Take 1 capsule by mouth once daily. Take capsule on an empty stomach at least 30 minutes before a meal at the same time each day. Capsule should be swallowed whole. DO NOT chew or crush hydroCHLOROthiazide 25 mg tablet Take 1 tablet by mouth once daily. (Patient not taking: Reported on 07/02/2024) LORazepam (ATIVAN) 0.5 mg Take 1 tablet by mouth once daily as needed (anxiety) for up to 90 days. 3 months supply. oxybutynin (DITROPAN) 5 mg tablet Take 1 tablet by mouth two times a day. omeprazole (PRILOSEC) 40 mg capsule Take 1 capsule by mouth once daily. dilTIAZem CR (TAZTIA XT) 180 mg 24 hr capsule Take 2 capsules by mouth once daily. losartan (COZAAR) 50 mg tablet Take 1 tablet by mouth two times a day. docusate sodium (COLACE) 100 mg capsule Take 1 capsule by mouth two times a day. Cholecalciferol, Vitamin D3, 50 mcg (2,000 unit) cap Take 1 capsule by mouth once daily. Prescribedby endocrinology (Dr. César Johnson) denosumab (PROLIA) 60 mg/mL Once every 6 months. Prescribed by endocrinology (Dr. César Johnson) Dextrin (EASY FIBER) 3 gram/3.5 gram powd Take 3 g by mouth once daily. Mixed with water. Sennosides (SENOKOT EXTRA STRENGTH) 17.2 mg tab Take 1 tablet by mouth daily with lunch AND 2 tablets daily at bedtime. lactobacillus comb no.10 (PROBIOTIC) 20 billion cell cap Take 1 capsule by mouth daily at bedtime. fexofenadine (MUCINEX ALLERGY) 180 mg tablet Take 180 mg by mouth once daily. fluticasone (FLONASE) 50 mcg/actuation nasal spray Use 2 Sprays in each nostril once daily. Rinse mouth after use. ACETAMINOPHEN (TYLENOL ARTHRITIS ORAL) Take by mouth. No current facility-administered medications for this visit. Objective BP 130/64 (BP Site: Left Arm, BP Position: Sitting, BP Cuff Size: Large Adult) Pulse 60 Resp 12 Wt 56.9 kg (125 lb 7.1 oz) BMI 20.25 kg/m Physical Exam Constitutional: General: She is not in acute distress. Appearance: She is not ill-appearing. Cardiovascular: Rate and Rhythm: Normal rate and regular rhythm. Heart sounds: No murmur heard. No gallop. Pulmonary: Breath sounds: Normal breath sounds. Musculoskeletal: Right lower leg: No edema. Left lower leg: No edema. Skin: Findings: Rash present. Comments: Faint resolving maculopapular rash of the chest. Neurological: Mental Status: She is alert. Assessment and Plan 1. Lower leg edema - ICD9: 782.3, ICD10: R60.0 (primary diagnosis) Improved. 2. Essential hypertension - ICD9: 401.9, ICD10: I10 - Improving control - Continue current medications - Trial hydrochlorothiazide again in 1 week and see if rash recurs. 3. Chronic idiopathic constipation - ICD9: 564.00, ICD10: K59.04 2nd opinion. - CONSULT TO GASTROENTEROLOGY 4. Weight loss, non-intentional - ICD9: 783.21, ICD10: R63.4 - CONSULT TO GASTROENTEROLOGY 5. Polyp of colon, unspecified part of colon, unspecified type - ICD9: 211.3, ICD10: K63.5 Pathology retrieved from [facility]: serrated adenoma. - CONSULT TO GASTROENTEROLOGY Femi Baeza MD documented in this encounterS[facility]04-24-2025 NoteHNO ID: [id number] Author: RAI GÓMEZ RT(R) Service: ? Author Type: [employer] Installer Type: Progress Notes Filed: 06/25/2024 18:01 Note Text: Radiology Service Progress Note PATIENT NAME: Leonel Andre DATE OF SERVICE: June 25, 2024 TIME: 5:54 PM PATIENT IDENTITY VERIFICATION COMPLETED USING TWO (2) IDENTIFIERS: Name and Date of confirmed by patient verbally. FALL SCREENING: Has the patient had 2 falls in the last year or 1 fall with injury or currently using an Ambulatory Assistive Device (Walker, Cane, Wheelchair, Crutches, etc.)? Yes, Patient High Risk for Falls What interventions were put in place to prevent falls during this visit? Offered Assistance with Transfers/Clothing and Increased Observations by Caregivers PATIENT GENDER DATA: Assigned female at . status: : No status: NO. PATIENT RELEVANT IMPLANT DATA REVIEWED: Yes PATIENT PRESENTS WITH AN IMPLANTABLE OR ATTACHED QUALITY AUDITOR: No RADIOLOGY DEPARTMENT: General X-ray: Exam(s) Completed: Chest X-Ray PERIPHERAL IV DATA: Not applicable SIGNED BY: RT Herrera(R) June 25, 2024 5:54 [facility]04-24-2025 NoteHNO ID: [id number] Author: FEMI BAEZA MD Service: ? Author Type: Physician Type: Progress Notes Filed: 06/25/2024 19:18 Note Text: This note was created using NoteWriter. Subjective Leonel Andre is a 79 year old female. Patient presents with: Swelling: In CARLOS lower legs with weight loss x 1 month Recording using ambient AI software for draft documentation of the visit was discussed with the patient/authorized energy conservation representative; all questions welcomed and answered. Patient/authorized energy conservation representative agreed to proceed Peg is a 79-year-old female with a history of constipation, presenting with bilateral lower extremity edema and weight loss. Peg reports a gradual onset of bilateral lower extremity edema over the past month, with swelling and soreness in her feet and ankles. The edema worsens throughout the day, particularly in the evening, and improves by morning. She notes increased swelling upon ambulation. She denies any recent changes in her medication regimen, except for the initiation of Linzess 145 mg on 05/19/2024 for constipation. She denies diarrhea but reports irregular bowel movements, describing occasional watery stools. She has been consuming Ensure to supplement her diet. Peg also reports dysuria, characterized by burning and abdominal cramping during urination. She mentions a history of right kidney issues since 2011, with no recent changes reported by her urologist, Dr. Chaves. She denies fever, dyspnea, or significant cough, attributing her occasional cough to allergies. She underwent a colonoscopy 2 weeks ago, during which a polyp was removed. She has not received the pathology report yet. She expresses concern about her bowel movements, leading to poor sleep and reduced appetite. She has experienced significant weight loss, dropping from 140 lbs to 122 lbs over a short period. She denies excessive salt intake, actively avoiding it in her diet. Review of Systems Constitutional: (-) fever, (+) weight loss, (+) decreased appetite, (+) sleep disturbance Ears/Nose/Mouth/Throat: (+) runny nose Respiratory: (+) cough, (-) shortness of breath Gastrointestinal: (+) constipation, (-) diarrhea Genitourinary: (+) dysuria Musculoskeletal: (+) bilateral foot/ankle swelling, (+) foot/ankle soreness Neurological: (+) right foot numbness Psychiatric: (+) anxiety ACTIVE PROBLEM LIST Essential Hypertension Esophageal Reflux Vitamin D Deficiency Constipation Scoliosis Urge Incontinence History of Renal Cell Carcinoma Osteoporosis Anxiety Pain in Right Hip Radiculopathy, Lumbar Region Mass of Right Kidney Current Outpatient Medications Medication Sig LORazepam (ATIVAN) 0.5 mg Take 1 tablet by mouth once daily as needed (anxiety) for up to 90 days. 3 months supply. oxybutynin (DITROPAN) 5 mg tablet Take 1 tablet by mouth two times a day. omeprazole (PRILOSEC) 40 mg capsule Take 1 capsule by mouth once daily. dilTIAZem CR (TAZTIA XT) 180 mg 24 hr capsule Take 2 capsules by mouth once daily. losartan (COZAAR) 50 mg tablet Take 1 tablet by mouth two times a day. docusate sodium (COLACE) 100 mg capsule Take 1 capsule by mouth two times a day. Cholecalciferol, Vitamin D3, 50 mcg (2,000 unit) cap Take 1 capsule by mouth once daily. Prescribed by endocrinology (Dr. César Johnson) denosumab (PROLIA) 60 mg/mL Once every 6 months. Prescribed by endocrinology (Dr. César Johnson) Dextrin (EASY FIBER) 3 gram/3.5 gram powd Take 3 g by mouth once daily. Mixed with water. Sennosides (SENOKOT EXTRA STRENGTH) 17.2 mg tab Take 1 tablet by mouth daily with lunch AND 2 tablets daily at bedtime. lactobacillus comb no.10 (PROBIOTIC) 20 billion cell cap Take 1 capsule by mouth daily at bedtime. fexofenadine (MUCINEX ALLERGY) 180 mg tablet Take 180 mg by mouth once daily. fluticasone (FLONASE) 50 mcg/actuation nasal spray Use 2 Sprays in each nostril once daily. Rinse mouth after use. ACETAMINOPHEN (TYLENOL ARTHRITIS ORAL) Take by mouth. linaclotide (LINZESS) 145 mcg capsule Take 1 capsule by mouth once daily. Take capsule on an empty stomach at least 30 minutes before a meal at the same time each day. Capsule should be swallowed whole. DO NOT chew or crush No current facility-administered medications for this visit. Objective BP 134/67 Pulse 62 Resp 16 Wt 57.5 kg (126 lb 12.2 oz) SpO2 97% BMI 20.46 kg/m? Physical Exam Constitutional: General: She is not in acute distress. HENT: Nose: No congestion or rhinorrhea. Cardiovascular: Rate and Rhythm: Normal rate and regular rhythm. Heart sounds: No murmur heard. No gallop. Pulmonary: Effort: No respiratory distress. Breath sounds: Rhonchi present. No wheezing or rales. Abdominal: Palpations: Abdomen is soft. Tenderness: There is no abdominal tenderness. There is no right CVA tenderness or left CVA tenderness. Musculoskeletal: General: No tenderness. Thoracic marcus (more content not included)...[facility]04-16-2025 Telephone encounter Note* Telephone Encounter - Madelaine Griffiths LPN - 06/17/2024 2:51 PM EDT Patient has been identified by name and date of : Yes Patient phones for refill(s): Requested Prescriptions Pending Prescriptions Disp Refills LORazepam (ATIVAN) 0.5 mg 90 tablet 0 Sig: Take 1 tablet by mouth once daily as needed (anxiety) for up to 90 days. 3 months supply. Date of last office visit in primary care: 03/18/2024 Date of next office visit in primary care: 06/17/2024 Please advise. Thank you. Madelaine Griffiths LPN. [facility]04-16-2025 Miscellaneous Notes* Telephone Encounter - Madelaine Griffiths LPN - 06/17/2024 2:51 PM EDT Patient has been identified by name and date of : Yes Patient phones for refill(s): Requested Prescriptions Pending Prescriptions Disp Refills LORazepam (ATIVAN) 0.5 mg 90 tablet 0 Sig: Take 1 tablet by mouth once daily as needed (anxiety) for up to 90 days. 3 months supply. Date of last office visit in primary care: 03/18/2024 Date of next office visit in primary care: 06/17/2024 Please advise. Thank you. Madelaine Griffiths LPN. [facility] Telephone encounter Note * Telephone Encounter - Madelaine Griffiths LPN - 06/17/2024 2:38 PM EDT Patient wanting RX to go to different mail-order pharmacy. Patient has been identified by name and date of : Yes Patient phones for refill(s): Requested Prescriptions Pending Prescriptions Disp Refills oxybutynin (DITROPAN) 5 mg tablet 180 tablet 3 Sig: Take 1 tablet by mouth two times a day. omeprazole (PRILOSEC) 40 mg capsule 90 capsule 3 Sig: Take 1 capsule by mouth once daily. Date of last office visit in primary care: 03/18/2024 Date of next office visit in primary care: 07/02/2024 Please advise. Thank you. Madelaine Griffiths LPN. [facility]04-16-2025 Miscellaneous Notes* Telephone Encounter - Madelaine Griffiths LPN - 06/17/2024 2:38 PM EDT Patient wanting RX to go to different mail-order pharmacy. Patient has been identified by name and date of : Yes Patient phones for refill(s): Requested Prescriptions Pending Prescriptions Disp Refills oxybutynin (DITROPAN) 5 mg tablet 180 tablet 3 Sig: Take 1 tablet by mouth two times a day. omeprazole (PRILOSEC) 40 mg capsule 90 capsule 3 Sig: Take 1 capsule by mouth once daily. Date of last office visit in primary care: 03/18/2024 Date of next office visit in primary care: 07/02/2024 Please advise. Thank you. Madelaine Griffiths LPN. [facility] Consult note [facility] Medical Records Department [address] [place] [address] Anesthesia Postop Eval II 06/12/24 1355 MR#: [id number] Acct: [id number] Name: LEONEL ANDRE Rep #:[id number] 3 : 1945 79 From: Jed Rubio MD PCP: Dr. Femi Baeza MD Status:R EG SDC Y Race: C Location: [place] [address] Anesthesia Postop Eval I Sum Postop Eval Completion status Anesthesia document: Postop Eval 1 completed: Yes Anesthesia Postop Eval I Summary Anesthesia Postop Eval I Summary: Anesthesia Postop Eval I: Assessment Summary Airway patent Yes 06/12/24 13:47 [email or web address] Spontaneous unlabored Yes 06/12/24 13:47 [email or web address] respirations Mental status Awake,Calm 06/12/24 13:47 [email or web address] nausea No 06/12/24 13:47 [email or web address] Vomiting No 06/12/24 13:47 [email or web address] Anesthesia Postop Eval I: Fluid Summary Crystalloid volume administer 40 06/12/24 13:47 [email or web address] (ml) Colloids volume administered ( ml) Blood Product volume administered (ml) Total IV fluid infused 40 06/12/24 13:47 [email or web address] Anesthesia Postop Eval I: Summary Notes Anesthesia Complication No 06/12/24 13:47 [email or web address] Anesthesia Complication Comment: Post-operative progress note Anesthesia: Postop Eval II Evaluation Mental status: Awake Pain Level: 0 nausea: No Vomiting: No 06/12/24 1355 > Date _ Jed Rubio MD Cosigner Signature: Date CC: ~ Signed [facility]04-11-2025 Consult note Author Jed Rubio [facility] Note Date/Time June 12, 2024 12: 13pm [facility] Medical Records Department [address] [place] [address] Pre-Anesthesia Evaluation 06/12/24 1212 MR#: [id number] Acct: [id number] Name: LEONEL ANDRE Rep #:[id number] 3 : 1945 79 From: Jed Rubio MD PCP: Dr. Femi Baeza MD Status:R [place] [facility] [place] Race: C Location: [place] [address] ASA Classification* ASA Classification ASA Classification: 2 Assessment & Plan Anesthesia* Anesthesia Assessment Anesthesia Assessment: Discussed sedation and/or anesthesia options, risks, benefits, and alternatives with patient/parents/legal guardian/POA. Questions invited. The patient/parents/legal guardian/POA seems to understand and agrees to proceedwith anesthesia plan. Reviewed the physical assessment, medical history, allergy history and patient home medications list prior to surgery/procedure/anesthetic and documented any changes. Performed airway and anesthesia risk assessments. Anesthesia Type Anesthesia Type: MAC Anesthesia Focused Assessment* Temperature: 98.9 F Pulse Rate: 78 Blood Pressure: 139/65 Respiratory Rate: 16 Pulse Ox: 100 Airway Assessment Mouth opens: >3 cm Mallampati Score: II Focused Labs Anesthesia Preop lab: CBC WBC 6.7 K/mm3 (4.4-11.0) 03/20/24 09:50 03/20/24 RBC 5.06 M/mm3 (4.2-5.4) 03/20/24 09:50 03/20/24 Hgb 14.4 g/dL (12.0-15.0) 03/20/24 09:50 03/20/24 Hct 44.4 % (37-47) 03/20/24 09:50 03/20/24 Plt Count 242 K/mm3 (150-450) 03/20/24 09:50 03/20/24 CHEMISTRY Potassium 4.0 mmol/L (3.5-5.1) 03/20/24 09:50 03/20/24 Sodium 138 mmol/L (136-145) 03/20/24 09:50 03/20/24 Magnesium 1.9 mg/dL (1.6-2.6) 11/18/21 18:20 11/18/21 BUN 10 mg/dL (7-18) 03/20/24 09:50 03/20/24 Creatinine 0.75 mg/dL (0.55-1.02) 03/20/24 09:50 03/20/24 Glucose 115 mg/dL (74-106) H 03/20/24 09:50 03/20/24 COAG Pre-Assessment Diagnosis/Proposed Procedure Planned Operative Procedure(s): COLONOSCOPY Anesthesia History Anesthesia History - student counsellor: Anesthesia History - student counsellor Hx Hospitalization No 06/08/24 11:36 Any Problems With Anesthesia No 06/08/24 11:36 Cholinesterase deficiency No 06/08/24 11:36 You/Your Family Experience No 06/08/24 11:36 fever (hyperthermia) with Relationship Recent Exposure to Contagious No 06/12/24 11:59 Disease Does patient have nerve No 06/08/24 11:36 stimulator Patient instructed to have device shut off --Does patient have Pacemaker No 06/12/24 11:59 or ICD? When Was Last Pacemaker Check QUESTION #4 FULL TEXT: You/Your Family Experience fever (hyperthermia) with Anesthesia Last Oral Intake Last Oral intake: Last Oral Intake NPO since 09:00 06/12/24 11:59 Meds taken in AM with sips of water? Meds patient instructed to take am of surgery PONV PONV - student counsellor: PONV - student counsellor Female Yes 06/08/24 11:36 HX of Motion Sickness No 06/08/24 11:36 HX of N/V After Surgery No 06/08/24 11:36 Non-Smoker Yes 06/08/24 11:36 Duration of Surgery greater No 06/08/24 11:36 than 60 minutes Number of Risk Factors 2 06/08/24 11:36 PONV Score Moderate Risk 06/08/24 11:36 Height & Weight Height & Weight: Anesthesia: Height & Weight Height 5 ft 4 in 06/12/24 11:59 Weight: 55.701 kg 06/12/24 11:59 Body Mass Index (BMI) 21.0 06/12/24 11:59 Respiratory Assessment Respiratory Assessment - student counsellor: Respiratory Tract Infection Hx - student counsellor Hx Respiratory Tract Infection No 06/08/24 11:36 STOP Sleep Apnea STOP Sleep Apnea - student counsellor: STOP Sleep Apnea - student counsellor Hx Hypertension Yes: CONTROLLED ON MED 06/08/24 11:36 Hx Sleep Apnea No 06/08/24 11:36 CPAP BIPAP Do you snore loudly (louder No 06/08/24 11:36 than talking or can be heard Do you often feel tired/ No 06/08/24 11:36 fatigued/ sleepy during daytime? Has anyone observed you stop No 06/08/24 11:36 breathing during sleep? STOP Results Negative 06/08/24 11:36 QUESTION #5 FULL TEXT : Do you snore loudly (louder than talking or can be heard through closed doors)? Tobacco Use History Tobacco Use History - student counsellor: Tobacco Use History - student counsellor Tobacco Use Non-smoker 08/31/23 13:32 Smoking Status Former smoker 06/08/24 11:36 Hx Tobacco Use No 06/08/24 11:36 Years Smoking Packs Smoked per Day Smoking Cessation Date was No - quit smoking greater 06/08/24 11:36 within the last 15 years than 15 years ago Hx Smoking Cessation Date 09/09/1939 06/08/24 11:36 Hx Smoking Cessation No 06/08/24 11:36 Counseling Hematologic Medial History Hematologic Hx - student counsellor: Hematologic Medical Hx - armature bander Hx of Blood Transfusion Yes 06/08/24 11:36 Hx of Transfusion in last 3 No 06/08/24 11:36 Months Date of Last Transfusion (if within last 3 months) Ever experience any problems No 06/08/24 11:36 with transfusion(s)? Specify any problems Hx of Preganancy in last 3 No 06/08/24 11:36 Months Nurse Filling Out Transfusion VCHRISTIN 06/08/24 11:36 & Questions: Date: 06/08/24 06/08/24 11:36 Time: 11:37 06/08/24 11:36 Patient unable to answer at this time (ie. 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 History - student counsellor: /Reproductive Hx- student counsellor Hx Now No 06/08/24 11:36 Gestational Age (in weeks): EDC: Hx Hx Para Hx Section SAB No 06/08/24 11:36 [facility] Medical History Wears glasses Cancer Anxiety Ambulates with cane History of renal disease Bladder disease History of hiatal hernia Gastric reflux Former smoker Gait disturbance Diverticular disease Primary hyperparathyroidism Sciatica Age related osteoporosis Bowel obstruction Scoliosis Lumbar radiculopathy Hx of renal cell carcinoma Osteoporosis GERD (gastroesophageal reflux disease) Hypoglycemia HTN (hypertension) Bladder prolapse Home Medications ?Medication ?Instructions ?Recorded ?Last Taken ?Type cholecalciferol (vitamin D3) 25 2,000 unit PO DAILY Unknown History mcg (1,000 unit) tablet (Vitamin D3) oxybutynin chloride 5 mg tablet 5 mg PO BID 12/26/15 U nknown History diltiazem HCl 180 mg capsule,24 360 mg PO DAILY 06/12/24 History hr,extended release lorazepam 0.5 mg tablet 0.5 mg PO DAILY 09/08/20 Unk nown History acetaminophen 500 mg tablet 500 mg PO Q6H PRN pain Unknown History (Tylenol Extra Strength) cetirizine 5 mg tablet 5 mg PO DAILY PRN allergy sy mptoms 08/23/22 Unknown History fluticasone propionate 50 1 spray intranasal DAILY Unknown History mcg/actuation nasal spray,suspension omeprazole 40 mg capsule,delayed 40 mg PO DAILY 03/30/24 History release sodium chloride 0.65 % nasal spray 1 spray intranasal DAILY 08/23/22 Unknown History aerosol denosumab 60 mg/mL subcutaneous 60 mg subcut [id number] #1 mL 10/03/22 Unknown Rx syringe (Prolia) Lactobacillus rhamnosus GG 20 1 cell PO DAILY 12/16/23 Unknown History billion cell capsule (Probiotic Digestive Care) ondansetron 8 mg disintegrating 8 mg PO Q8H PRN nausea and 02/21/24 Unknown Rx tablet vomiting #15 tabs docusate sodium 100 mg capsule 100 mg PO TID #90 caps 03/25/24 Unknown Rx linaclotide 145 mcg capsule 145 mcg PO QAM #30 caps Unknown Rx (Linzess) losartan 50 mg tablet 50 mg PO BID 06/08/24 History Allergy/AdvReac Type Severity Reaction Status Date / Time lisinopril Allergy Swelling Verified 06/12/24 11:58 esomeprazole (From Nexium) AdvReac Nausea/Vom/ Verified 06/12/24 11:58 Diarrhea Family History Father Alcoholism Brother Alcoholism Mother Arthritis Hypertension Osteoporosis Surgical History Hx of colonoscopy History of tubal ligation History of cholecystectomy History of knee replacement H/O partial nephrectomy Social History Smoking Status: Former smoker alcohol intake: never what type of physical activity do you participate in: bicycling Review of Systems (Anesthesia) ROS Narrative System reviewed and no additional complaints, except as documented. 06/12/24 1213 <Electronically signed by Jed Rubio MD > Date _ Jed Emery Signature: Date CC: ~ Signed [facility] Work Phone: 1(488) 866-639704-11-2025 Consult note [facility] Medical Records Department [address] [place] [place] [id number] Anesthesia Postop Eval I 06/12/241345 MR#: [id number] Acct: [id number] Name: LEONEL ANDRE Rep #:[id number] 1 : 1945 79 From: Calos Shaffer PCP: Dr. Femi Baeza MD Status:R EG SD Y Race: C Location: [place] [address] Anesthesia: Postop Eval I Current Vital Signs Temperature: 97.3 F Pulse Rate: 60 Blood Pressure: 113/54 Respiratory Rate: 16 Pulse Ox: 100 Oxygen Delivery Method: Room Air Assessment Airway patent: Yes Spontaneous unlabored respirations: Yes Mental status: Awake and Calm nausea: No Vomiting: No Anesthesia Complication: No Fluid Hydration Crystalloid volume administer (ml): 40 Total IV fluid infused: 40 Progress Note Anesthesia document: Postop Eval 1 completed: Yes 06/12/24 1347 > Date _ Calos Emery Signature: Date CC: ~ Signed [facility]04-11-2025 Procedure note [facility] Medical Records Department [address] [place] [address] Colonoscopy Report MR#: [id number] Acct: [id number] Name: LEONLE ANDRE Rep #:[id number] 3 : 1945 79 From: Krzysztof Arroyo DO PCP: Dr. Femi Baeza MD Status:R [facility] Patient Name: Leonel Andre Procedure Date: 06/12/2024 1:06 PM Date of : 1945 Age: 79 Procedure: Colonoscopy Indications: Generalized abdominal pain, Abdominal pain in the left lower quadrant Providers: Krzysztof Arroyo DO Referring MD: Femi Baeza Medicines: Monitored Anesthesia Care Patient Profile: This is a 79 year old female. Refer to note in patient chart for documentation of history and physical. Last Colonoscopy: within the past year. Complications: No immediate complications. Procedure: Pre-Anesthesia Assessment: - Prior to the procedure, a History and Physical was performed, and patient medications and allergies were reviewed. The patient is competent. The risks and benefits of the procedure and the sedation options and risks were discussed with the patient. All questions were answered and informed consent was obtained. Patient identification and proposed procedure were verified by the physician in the pre-procedure area. Mental Status Examination: alert and oriented. Airway Examination: normal oropharyngeal airway and neck mobility. Respiratory Examination: clear to auscultation. CV Examination: normal. Prophylactic Antibiotics: The patient does not require prophylactic antibiotics. Prior Anticoagulants: The patient has taken no anticoagulant or antiplatelet agents except for NSAID medication. ASA Grade Assessment: II - A patient with mild systemic disease. After reviewing the risks and benefits, the patient was deemed in satisfactory condition to undergo the procedure. The anesthesia plan was to use monitored anesthesia care (MAC). Immediately prior to administration of medications, the patient was re-assessed for adequacy to receive sedatives. The heart rate, respiratory rate, oxygen saturations, blood pressure, adequacy of pulmonary ventilation, and response to care were monitored throughout the procedure. The physical status of the patient was re-assessed after the procedure. After I obtained informed consent, the scope was passed under direct vision. Throughout the procedure, the patient's blood pressure, pulse, and oxygen saturations were monitored continuously. The Colonoscope was introduced through the anus and advanced to the cecum, identified by the ileocecal valve. The colonoscopy was performed without difficulty. The patient tolerated the procedure well. The quality of the bowel preparation was poor. The ileocecal valve and the rectum were photographed. Scope In: 1:20:04 PM Scope Withdrawal Time 0 hours 8 minutes 23 seconds Scope Out: 1:35:34 PM Total Procedure Duration Time 0 hours 15 minutes 30 seconds Findings: The perianal and digital rectal examinations were normal. Mild rectal prolapse was present. A 10 mm polyp was found in the rectum. The polyp was sessile. The polyp was removed with a hot snare. Resection and retrieval were complete. Verification of patient identification for the specimen was done. Estimated blood loss was minimal. Stool was found in the entire colon. Impression: - Preparation of the colon was poor. - Rectal prolapse. - One 10 mm polyp in the rectum, removed with a hot snare. Resected and retrieved. - Stool in the entire examined colon. Recommendation: - Discharge patient to home. - Resume previous diet. - Continue present medications. - Await pathology results. - Repeat colonoscopy because the bowel preparation was poor. Procedure Code(s): --- Professional --- 29229, Colonoscopy, flexible; with removal of tumor(s), polyp(s), or other lesion(s) by snare technique CPT copyright 2021 [employer]. All rights reserved. The codes documented in this report are preliminary and upon marketing rotation associate review may be revised to meet current compliance requirements. Krzysztof Arroyo DO 06/12/2024 1:41:44 PM This report has been signed electronically. Number of Addenda: 0 Note Initiated On: 06/12/2024 1:06 PM 06/12/24 1341 Date _ Krzysztof Davison Signature: Date (if indicated) CC: Dr. Femi Baeza MD; Krzysztof Arroyo DO ~ Date Dictated: 06/12/24 1306 Date Transcribed: Mathematics Faculty Member: RF Signed [facility]04-11-2025 Procedure note [facility] Medical Records Department [address] [place] [address] Operative Report - CC Letter MR#: [id number] Acct: [id number] Name: LEONEL ANDRE Rep #:[id number] 4 : 1945 79 From: Krzysztof Arroyo DO PCP: Dr. Femi Baeza MD Status:R [facility] 06/12/2024 Femi Baeza [address] [place] [address] Re : Colonoscopy procedure for Leonel Andre Dear Dr. Baeza This procedure was performed on Wednesday, June 12, 2024. My impressions and recommendations are as follows: Impressions : - Preparation of the colon was poor. - Rectal prolapse. - One 10 mm polyp in the rectum, removed with a hot snare. Resected and retrieved. - Stool in the entire examined colon. Recommendations : - Discharge patient to home. - Resume previous diet. - Continue present medications. - Await pathology results. - Repeat colonoscopy because the bowel preparation was poor. My findings are described in the full procedure note, which is enclosed. If I can be of further assistance, please feel free to contact me at . Sincerely, Krzysztof Arroyo DO 06/12/2024 1:41:44 PM This report has been signed electronically. 06/12/24 1341 Date _ Krzysztof Arroyo DO Cosigner Signature: Date (if indicated) CC: Dr. Femi Baeza MD; Krzysztof Arroyo DO ~ Date Dictated: 06/12/24 1306 Date Transcribed: Mathematics Faculty Member: RF Signed [facility]04-11-2025 Evaluation note* Diagnosis Onset Date Resolution Status Admit Date Colonic stricture acute June 022024 11:36am GI bleed acute June 12 11:36am Colonic stricture acute July 2:55pm Constipation acute July 15 2:55pm [place] Work Phone: 1(777) 178-742604-11-2025 History and physical note [facility] Medical Records Department [address] [place] [address] History & Physical Exam 06/12/24 1302 MR#: [id number] Acct: [id number] Name: LEONEL ANDRE Rep #:[id number] 1 : 1945 79 From: [facility] Friend DO PCP: Dr. Femi Baeza MD Status:R [place] [facility] [place]: [place] [address] HPI - General General Date of Admission: 06/12/24 Date of Service: 06/12/24 Chief Complaint: Constipation HPI Narrative LEONEL ANDRE, is a 79 F who presents with the chief Complaint: constipation [facility] 02.21.24 w/ watery diarrhea followed by n/v for 24 hours. Work up mostly unremarkable. Suspected viral gastroenteririrs. Discharged after IV fluids and potassium repletion. CT abd/pelvis 02.21.24; 1. Nonspecific fluid-filled small bowel loops and colonwithout evidence of bowel obstruction could be due to enterocolitis. 2. Persistent complex hypodense lesion in the right kidney slightly larger than the previous examinations could be due to slowly growing tumor. [facility] 1..25; with no bowel movement for 3 weeks and mild intermittent rectal bleeding. [facility] 1..25; Moderate to large amount of colonic stool and gas. [facility] 1.. with constipation and suspected rectal prolapse per pt. Normal work up. Physical exam with no indication of rectal prolapse. [facility] Established . with complaints related to rectal bleeding and possible prolapse *plan for colonoscopy, increase colace Colonoscopy 03.30.24;- Preparation of the colon was poor. - Diverticulosis in the recto-sigmoid colon and in the sigmoid colon. - Stool in the entire examined colon. 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 - No specimens collected. OV 04.21.24 Pt continues to have issues with constipation since her colonoscopy. She has not had a full bm since the colonoscopy. She is passing gas. She startedeating a normal diet about 5 days ago. She admits to being afraid of having a bmas this has caused her "prolapse" to fall out and bleed in the past. She denies abd pain, n/v, diarrhea or heartburn. [facility] Medical History Wears glasses Cancer Anxiety Ambulates with cane History of renal disease Bladder disease History of hiatal hernia Gastric reflux Former smoker Gait disturbance Diverticular disease Primary hyperparathyroidism Sciatica Age related osteoporosis Bowel obstruction Scoliosis Lumbar radiculopathy Hx of renal cell carcinoma Osteoporosis GERD (gastroesophageal reflux disease) Hypoglycemia HTN (hypertension) Bladder prolapse Home Medications ?Medication ?Instructions ?Recorded ?Last Taken ?Type cholecalciferol (vitamin D3) 25 2,000 unit PO DAILY Unknown History mcg (1,000 unit) tablet (Vitamin D3) oxybutynin chloride 5 mg tablet 5 mg PO BID 12/26/15 U nknown History diltiazem HCl 180 mg capsule,24 360 mg PO DAILY 06/12/24 History hr,extended release lorazepam 0.5 mg tablet 0.5 mg PO DAILY 09/08/20 Unk nown History acetaminophen 500 mg tablet 500 mg PO Q6H PRN pain Unknown History (Tylenol Extra Strength) cetirizine 5 mg tablet 5 mg PO DAILY PRN allergy sy mptoms 08/23/22 Unknown History fluticasone propionate 50 1 spray intranasal DAILY Unknown History mcg/actuation nasal spray,suspension omeprazole 40 mg capsule,delayed 40 mg PO DAILY 03/30/24 History release sodium chloride 0.65 % nasal spray 1 spray intranasal DAILY 08/23/22 Unknown History aerosol denosumab 60 mg/mL subcutaneous 60 mg subcut [id number] #1 mL 10/03/22 Unknown Rx syringe (Prolia) Lactobacillus rhamnosus GG 20 1 cell PO DAILY 12/16/23 Unknown History billion cell capsule (Probiotic Digestive Care) ondansetron 8 mg disintegrating 8 mg PO Q8H PRN nausea and 02/21/24 Unknown Rx tablet vomiting #15 tabs docusate sodium 100 mg capsule 100 mg PO TID #90 caps 03/25/24 Unknown Rx linaclotide 145 mcg capsule 145 mcg PO QAM #30 caps Unknown Rx (Linzess) losartan 50 mg tablet 50 mg PO BID 06/08/24 History Allergy/AdvReac Type Severity Reaction Status Date / Time lisinopril Allergy Swelling Verified 06/12/24 11:58 esomeprazole (From Nexium) AdvReac Nausea/Vom/ Verified 06/12/24 11:58 Diarrhea Family History Father Alcoholism Brother Alcoholism Mother Arthritis Hypertension Osteoporosis Surgical History Hx of colonoscopy History of tubal ligation History of cholecystectomy History of knee replacement H/O partial nephrectomy Social History Smoking Status: Former smoker alcohol intake: never what type of physical activity do you participate in: bicycling ROS Constitutional Constitutional: Denies fatigue, fever(s), poor appetite, weight gain or weight loss Gastrointestinal Gastrointestinal: Denies belching, bloating, change in bowel habits, change in stool character, chewing difficulty, coffee ground emesis, constipation, cramping, diarrhea, dyspepsia, dysphagia, earlysatiety, excessive flatus, fecalincontinence, heartburn, hematemesis, hematochezia, hemorrhoids, loose stools, melena, nausea, odynophagia, rectal bleeding, tenesmus, vomiting or weight changes Vital Signs Vital Signs Vital Signs: 06/12/24 11:59 06/12/24 11:59 06/12/24 12:12 Temperature 98.9 F 98.9 F Temperature Source Temporal Pulse Rate 78 78 Respiratory Rate 16 16 Respiratory Pattern Normal Blood Pressure 139/65 H 139/65 H Blood Pressure Mean 89 Blood Pressure Source Monitor Blood Pressure Position Semi-Fowlers Blood Pressure Location Right Arm Pulse Ox 100 100 Oxygen Delivery Method Room Air Weight Weight: 122 lb 12.8 oz Body Mass Index (BMI) 21.0 Physical Exam Const alert, oriented x3, no apparent distress and healthy appearing General Appearance: cooperative GI normal to inspection, nondistended, normoactive bowel sounds, soft to palpation,non-tender and non-distended Percussion: normal to percussion Rectal Exam: deferred Assessment & Plan Assessment/Plan (1) Colonic stricture: (2) GI bleed: PLAN: Assessment and Plan Assessment and Plan (1) GI bleed: Status: Acute Plan: Pt is a 79 yo female pt here today for f/u after colonoscopy. Pt has had issues with possible rectal prolapse over the past couple of months. She underwent colonoscopy which showed a lot of stool as well as a stricture at the hepatic flexure. SHe was scheduled for a repeat scope. CT abd/pelvis ordered for the colonic stricture. She will continue colace daily and start miralax daily. She will keepme updated this week if she has a bm. -CT -repeat scope -continue colace -start miralax daily (2) Colonic stricture: Status: Acute 06/12/24 1304 Cosigner Signature (if applicable): CC: Dr. Femi Baeza MD; Krzysztof Arroyo DO~ Signed [facility]04-11-2025 [facility] Medical Records Department [address] [place] [id number] History Physical Exam 06/12/24 1302 MR#: [id number] Acct: [id number] Name: LEONEL ANDRE Rep #: [id number] : 1945 79 From: Krzysztof Arroyo DO PCP: Dr. Femi Baeza MD Status:[facility] Location: [place] [address] HPI - General General Date of Admission: 06/12/24 Date of Service: 06/12/24 Chief Complaint: Constipation HPI Narrative LEONEL ANDRE, is a 79 F who presents with the chief Complaint: constipation [facility] 02.21.24 w/ watery diarrhea followed by n/v for 24 hours. Work up mostly unremarkable. Suspected viral gastroenteririrs. Discharged after IV fluids and potassium repletion. CT abd/pelvis 02.21.24; 1. Nonspecific fluid-filled small bowel loops and colon without evidence of bowel obstruction could be due to enterocolitis. 2. Persistent complex hypodense lesion in the right kidney slightly larger than the previous examinations could be due to slowly growing tumor. [facility] .; with no bowel movement for 3 weeks and mild intermittent rectal bleeding. KUB .; Moderate to large amount of colonic stool and gas. [facility] 1 with constipation and suspected rectal prolapse per pt. Normal work up. Physical exam with no indication of rectal prolapse. I Established 03.25.24 with complaints related to rectal bleeding and possible prolapse *plan for colonoscopy, increase colace Colonoscopy 03.30.24;- Preparation of the colon was poor. - Diverticulosis in the recto-sigmoid colon and in the sigmoid colon. - Stool in the entire examined colon. 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 - No specimens collected. OV 04.21.24 Pt continues to have issues with constipation since her colonoscopy. She has not had a full bm since the colonoscopy. She is passing gas. She started eating a normal diet about 5 days ago. She admits to being afraid of having a bm as this has caused her "prolapse" to fall out and bleed in the past. She denies abd pain, n/v, diarrhea or heartburn. [facility] Medical History Wears glasses Cancer Anxiety Ambulates with cane History of renal disease Bladder disease History of hiatal hernia Gastric reflux Former smoker Gait disturbance Diverticular disease Primary hyperparathyroidism Sciatica Age related osteoporosis Bowel obstruction Scoliosis Lumbar radiculopathy Hx of renal cell carcinoma Osteoporosis GERD (gastroesophageal reflux disease) Hypoglycemia HTN (hypertension) Bladder prolapse Home Medications ???Medication ???Instructions ???Recorded ???Last Taken ???Type cholecalciferol (vitamin D3) 25 2,000 unit PO DAILY 12/26/15 Unkno wn History mcg (1,000 unit) tablet (Vitamin D3) oxybutynin chloride 5 mg tablet 5 mg PO BID 12/26/15 Unknown Histo ry diltiazem HCl 180 mg capsule,24 360 mg PO DAILY 09/08/20 06/12/24 History hr,extended release lorazepam 0.5 mg tablet 0.5 mg PO DAILY 09/08/20 Unknown H istory acetaminophen 500 mg tablet 500 mg PO Q6H PRN pain 08/23/22 Un known History (Tylenol Extra Strength) cetirizine 5 mg tablet 5 mg PO DAILY PRN allergy symptoms 08/23/22 Unknown History fluticasone propionate 50 1 spray intranasal DAILY 08/23/22 Unknown History mcg/actuation nasal spray,suspension omeprazole 40 mg capsule,delayed 40 mg PO DAILY 08/23/22 03/30/24 H istory release sodium chloride 0.65 % nasal spray 1 spray intranasal DAILY 3 Unknown History aerosol denosumab 60 mg/mL subcutaneous 60 mg subcut [id number] #1 mL Unknown Rx syringe (Prolia) Lactobacillus rhamnosus GG 20 1 cell PO DAILY 12/16/23 Unknown H istory billion cell capsule (Probiotic Digestive Care) ondansetron 8 mg disintegrating 8 mg PO Q8H PRN nausea and 4 Unknown Rx tablet vomiting #15 tabs docusate sodium 100 mg capsule 100 mg PO TID #90 caps 03/25/24 Un known Rx linaclotide 145 mcg capsule 145 mcg PO QAM #30 caps 05/15/24 U nknown Rx (Linzess) losartan 50 mg tablet 50 mg PO BID 06/08/24 06/12/24 His tory Allergy/AdvReac Type Severity Reaction Status Date / Time lisinopril Allergy Swelling Verified 06/12/24 11:58 esomeprazole (From Nexium) AdvReac Nausea/Vom/ Verified 06/12/24 11:58 Diarrhea Family History Father Alcoholism Brother Alcoholism Mother Arthritis Hypertension Osteoporosis Surgical History Hx of colonoscopy History of tubal ligation History of cholecystectomy History of knee replacement H/O partial nephrectomy Social History Smoking Status: Former smoker alcohol intake: never (more content not included)...[facility]04-11-2025 Consult note [facility] Medical Records Department [address] [place] [address] Pre-Anesthesia Evaluation 06/12/24 1212 MR#: [id number] Acct: [id number] Name: LEONEL ANDRE Rep #:[id number] : 1945 79 From: Jed Rubio MD PCP: Dr. Femi Baeza MD Status[place] [facility] [place] Race: C Location: AC12-1 ASA Classification* ASA Classification ASA Classification: 2 Assessment & Plan Anesthesia* Anesthesia Assessment Anesthesia Assessment: Discussed sedation and/or anesthesia options, risks, benefits, and alternatives with patient/parents/legal guardian/POA. Questions invited. The patient/parents/legal guardian/POA seems to understand and agrees to proceedwith anesthesia plan. Reviewed the physical assessment, medical history, allergy history and patient home medications list prior to surgery/procedure/anesthetic and documented any changes. Performed airway and anesthesia risk assessments. Anesthesia Type Anesthesia Type: MAC Anesthesia Focused Assessment* Temperature: 98.9 F Pulse Rate: 78 Blood Pressure: 139/65 Respiratory Rate: 16 Pulse Ox: 100 Airway Assessment Mouth opens: >3 cm Mallampati Score: II Focused Labs Anesthesia Preop lab: CBC WBC 6.7 K/mm3 (4.4-11.0) 03/20/24 09:50 03/20/24 RBC 5.06 M/mm3 (4.2-5.4) 03/20/24 09:50 03/20/24 Hgb 14.4 g/dL (12.0-15.0) 03/20/24 09:50 03/20/24 Hct 44.4 % (37-47) 03/20/24 09:50 03/20/24 Plt Count 242 K/mm3 (150-450) 03/20/24 09:50 03/20/24 CHEMISTRY Potassium 4.0 mmol/L (3.5-5.1) 03/20/24 09:50 03/20/24 Sodium 138 mmol/L (136-145) 03/20/24 09:50 03/20/24 Magnesium 1.9 mg/dL (1.6-2.6) 11/18/21 18:20 11/18/21 BUN 10 mg/dL (7-18) 03/20/24 09:50 03/20/24 Creatinine 0.75 mg/dL (0.55-1.02) 03/20/24 09:50 03/20/24 Glucose 115 mg/dL (74-106) H 03/20/24 09:50 03/20/24 COAG Pre-Assessment Diagnosis/Proposed Procedure Planned Operative Procedure(s): COLONOSCOPY Anesthesia History Anesthesia History - student counsellor: Anesthesia History - student counsellor Hx Hospitalization No 06/08/24 11:36 Any Problems With Anesthesia No 06/08/24 11:36 Cholinesterase deficiency No 06/08/24 11:36 You/Your Family Experience No 06/08/24 11:36 fever (hyperthermia) with Relationship Recent Exposure to Contagious No 06/12/24 11:59 Disease Does patient have nerve No 06/08/24 11:36 stimulator Patient instructed to have device shut off --Does patient have Pacemaker No 06/12/24 11:59 or ICD? When Was Last Pacemaker Check QUESTION #4 FULL TEXT: You/Your Family Experience fever (hyperthermia) with Anesthesia Last Oral Intake Last Oral intake: Last Oral Intake NPO since 09:00 06/12/24 11:59 Meds taken in AM with sips of water? Meds patient instructed to take am of surgery PONV PONV - student counsellor: PONV - student counsellor Female Yes 06/08/24 11:36 HX of Motion Sickness No 06/08/24 11:36 HX of N/V After Surgery No 06/08/24 11:36 Non-Smoker Yes 06/08/24 11:36 Duration of Surgery greater No 06/08/24 11:36 than 60 minutes Number of Risk Factors 2 06/08/24 11:36 PONV Score Moderate Risk 06/08/24 11:36 Height & Weight Height & Weight: Anesthesia: Height & Weight Height 5 ft 4 in 06/12/24 11:59 Weight: 55.701 kg 06/12/24 11:59 Body Mass Index (BMI) 21.0 06/12/24 11:59 Respiratory Assessment Respiratory Assessment - student counsellor: Respiratory Tract Infection Hx - student counsellor Hx Respiratory Tract Infection No 06/08/24 11:36 STOP Sleep Apnea STOP Sleep Apnea - student counsellor: STOP Sleep Apnea - student counsellor Hx Hypertension Yes: CONTROLLED ON MED 06/08/24 11:36 Hx Sleep Apnea No 06/08/24 11:36 CPAP BIPAP Do you snore loudly (louder No 06/08/24 11:36 than talking or can be heard Do you often feel tired/ No 06/08/24 11:36 fatigued/ sleepy during daytime? Has anyone observed you stop No 06/08/24 11:36 breathing during sleep? STOP Results Negative 06/08/24 11:36 QUESTION #5 FULL TEXT : Do you snore loudly (louder than talking or can be heard through closeddoors)? Tobacco Use History Tobacco Use History - student counsellor: Tobacco Use History - student counsellor Tobacco Use Non-smoker 08/31/23 13:32 Smoking Status Former smoker 06/08/24 11:36 Hx Tobacco Use No 06/08/24 11:36 Years Smoking Packs Smoked per Day Smoking Cessation Date was No - quit smoking greater 06/08/24 11:36 within the last 15 years than 15 years ago Hx Smoking Cessation Date 09/09/1939 06/08/24 11:36 Hx Smoking Cessation No 06/08/24 11:36 Counseling Hematologic Medial History Hematologic Hx - student counsellor: Hematologic Medical Hx - armature bander Hx of Blood Transfusion Yes 06/08/24 11:36 Hx of Transfusion in last 3 No 06/08/24 11:36 Months Date of Last Transfusion (if within last 3 months) Ever experience any problems No 06/08/24 11:36 with transfusion(s)? Specify any problems Hx of Preganancy in last 3 No 06/08/24 11:36 Months Nurse Filling Out Transfusion VCHRISTIN 06/08/24 11:36 & Questions: Date: 06/08/24 06/08/24 11:36 Time: 11:37 06/08/24 11:36 Patient unable to answer at this time (ie. 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 History - student counsellor: /Reproductive Hx- student counsellor Hx Now No 06/08/24 11:36 Gestational Age (in weeks): EDC: Hx Hx Para Hx Section SAB No 06/08/24 11:36 PFSH Medical History Wears glasses Cancer Anxiety Ambulates with cane History of renal disease Bladder disease History of hiatal hernia Gastric reflux Former smoker Gait disturbance Diverticular disease Primary hyperparathyroidism Sciatica Age related osteoporosis Bowel obstruction Scoliosis Lumbar radiculopathy Hx of renal cell carcinoma Osteoporosis GERD (gastroesophageal reflux disease) Hypoglycemia HTN (hypertension) Bladder prolapse Home Medications ?Medication ?Instructions ?Recorded ?Last Taken ?Type cholecalciferol (vitamin D3) 25 2,000 unit PO DAILY Unknown History mcg (1,000 unit) tablet (Vitamin D3) oxybutynin chloride 5 mg tablet 5 mg PO BID 12/26/15 U nknown History diltiazem HCl 180 mg capsule,24 360 mg PO DAILY 06/12/24 History hr,extended release lorazepam 0.5 mg tablet 0.5 mg PO DAILY 09/08/20 Unk nown History acetaminophen 500 mg tablet 500 mg PO Q6H PRN pain Unknown History (Tylenol Extra Strength) cetirizine 5 mg tablet 5 mg PO DAILY PRN allergy sy mptoms 08/23/22 Unknown History fluticasone propionate 50 1 spray intranasal DAILY Unknown History mcg/actuation nasal spray,suspension omeprazole 40 mg capsule,delayed 40 mg PO DAILY 03/30/24 History release sodium chloride 0.65 % nasal spray 1 spray intranasal DAILY 08/23/22 Unknown History aerosol denosumab 60 mg/mL subcutaneous 60 mg subcut [id number] #1 mL 10/03/22 Unknown Rx syringe (Prolia) Lactobacillus rhamnosus GG 20 1 cell PO DAILY 12/16/23 Unknown History billion cell capsule (Probiotic Digestive Care) ondansetron 8 mg disintegrating 8 mg PO Q8H PRN nausea and 02/21/24 Unknown Rx tablet vomiting #15 tabs docusate sodium 100 mg capsule 100 mg PO TID #90 caps 03/25/24 Unknown Rx linaclotide 145 mcg capsule 145 mcg PO QAM #30 caps Unknown Rx (Linzess) losartan 50 mg tablet 50 mg PO BID 06/08/24 History Allergy/AdvReac Type Severity Reaction Status Date / Time lisinopril Allergy Swelling Verified 06/12/24 11:58 esomeprazole (From Nexium) AdvReac Nausea/Vom/ Verified 06/12/24 11:58 Diarrhea Family History Father Alcoholism Brother Alcoholism Mother Arthritis Hypertension Osteoporosis Surgical History Hx of colonoscopy History of tubal ligation History of cholecystectomy History of knee replacement H/O partial nephrectomy Social History Smoking Status: Former smoker alcohol intake: never what type of physical activity do you participate in: bicycling Review of Systems (Anesthesia) ROS Narrative System reviewed and no additional complaints, except as documented. 06/12/24 1213 > Date _ Jed Rubio MD Cosigner Signature: Date CC: ~ Signed [facility]02-27-2025 Radiology Diagnostic study note [facility] Imaging Services [address] [place] [address] Abdomen/Pelvis WITH Contrast MR#: [id number] Acct: [id number] Name: LEONEL ANDRE Rep #: [id number] : 1945 F 79 From: Beti Lieberman MD PCP: Dr. Femi Baeza MD Status: R EG CLI Study:Abdomen/Pelvis WITH Contrast Date of Ex am: 04/30/24 Exam# [id number] Ordering Dr: Zonia Lawrence PROCEDURE: COMPUTED TOMOGRAPHY OF THE ABDOMEN AND PELVIS WITH CONTRAST REASON FOR EXAM: COLONIC STRICTURE. TECHNIQUE: Contiguous axial scans of mm slice thicknesses. Sagittal and coronal reconstruction images were obtained. One or more dose reduction techniques were used (e.g., automated exposure control, adjustment of mAand/or kv according to patient size, use of iterative reconstruction technique). IV CONTRAST: Isovue-370, 100 mL COMPARISON: CT abdomen and pelvis dated 02/21/2024. FINDINGS: Lung bases: Large paraesophageal hiatal hernia. Liver: Lobulated contour. Gallbladder: Surgically absent. Dilatation of the intrahepatic and extrahepaticbile ducts. The common bile duct measures 1.4 cm in diameter on axial image 44. Dilatation of the proximal pancreatic duct. Spleen: Normal in size. Small subcentimeter hypodensities scattered throughout the spleen. Pancreas: Atrophy of the pancreas Adrenals: Unremarkable. Kidneys: Multiple cystic nodules in the right kidney, largest measuring 1.9 x 1.5 cm, axial image 50. A small ovoid enhancing solid nodule involving the posterolateral aspect of the right kidney measuring 1.1 cm in long axis,axial image 50. Right extrarenal pelvis. Enhancing mass is seen in the right superior pole, axial image 36 measuring 1.9 x 1.7 cm. Enhancing mass measuring 1.3 x 1.0 cm in the left posterior midpole. Bladder: Unremarkable. Reproductive Organs: Calcifications in the left side of the uterus most likely small fibroids. Bowel: Severe fecal retention in the colon. No small bowel obstruction her zones of transition. Appendix: Normal. Lymph nodes: No suspicious lymph node enlargement. Vasculature: Scattered atherosclerotic calcific disease in the aorta. Peritoneum / Retroperitoneum: No ascites. No free air. Bones: Severe scoliosis. Multilevel degenerative disc disease. Multilevel spondylosis. CT/Abdomen/Pelvis WITH Contrast IMPRESSION: 1. Lobulated liver contour can be seen with sclerosis. 2. Biliary ductal dilatation not significantly changed from the previous study. Common bile duct measures 1.4 cm. 3. Status post cholecystectomy. 4. Solid enhancing nodules in the bilateral kidneys. Can not exclude neoplasms. 5. Multiple right renal cystic masses. 6. Small uterine fibroids. 7. Marked colon fecal retention. 8. Nonacute findings detailed above are stable. Reading Location: [place] [address] CC: Dr. Femi Baeza MD; ALBINA eLach ~ Mathematics Faculty Member: Signed [facility]01-27-2025 [facility] Medical Records Department [address] [place] [id number] History Physical Exam 03/30/24 1031 MR#: [id number] Acct: [id number] Name: LEONEL ANDRE Rep #: [id number] : 1945 79 From: [facility] Friend PCP: Dr. Femi Baeza MD Status:[facility] Location: [address] HPI - General General Date of Admission: 03/30/24 Date of Service: 03/30/24 Chief Complaint: Lower GI bleeding HPI Narrative Chief Complaint: rectal bleeding, suspected prolapse 79-year-old who presents for evaluation of lower GI bleeding. She is also been experiencing some diarrhea. [facility] 02.21.24 w/ watery diarrhea followed by n/v for 24 hours. Work up mostly unremarkable. Suspected viral gastroenteritis. Discharged after IV fluids and potassium repletion. CT abd/pelvis 02.21.24; 1. Nonspecific fluid-filled small bowel loops and colon without evidence of bowel obstruction could be due to enterocolitis. 2. Persistent complex hypodense lesion in the right kidney slightly larger than the previous examinations could be due to slowly growing tumor. [facility] 03.16.24; with no bowel movement for 3 weeks and mild intermittent rectal bleeding. KUB 03.16.24; Moderate to large amount of colonic stool and gas. [facility] 03.20.24 with constipation and suspected rectal prolapse per pt. Normal work up. Physical exam with no indication of rectal prolapse. OV 03.25.24 Pt continues to have issues with constipation. SHe has not had a "full" bm since the end of February 2024. She has abd a total of four episodes bleeding from her rectum with "something falling out". She is able to reduce it back to her rectum. These episodes of bleeding scare her. She has never had anything like this before. At her last ED visit, she was given golytley which she said did not give her a complete bm. She has never had any constipation prior to when this started in February. Last colonoscopy was over [address] Harden at [facility]. She has been afraid to eat to avoid having a bm. [facility] Medical History Wears glasses Cancer Anxiety Ambulates with cane History of renal disease Bladder disease History of hiatal hernia Gastric reflux Former smoker Gait disturbance Diverticular disease Primary hyperparathyroidism Sciatica Age related osteoporosis Bowel obstruction Scoliosis Lumbar radiculopathy Hx of renal cell carcinoma Osteoporosis GERD (gastroesophageal reflux disease) Hypoglycemia HTN (hypertension) Bladder prolapse Home Medications ???Medication ???Instructions ???Recorded ???Last Taken ???Type cholecalciferol (vitamin D3) 25 2,000 unit PO DAILY 12/26/15 Unknown History mcg (1,000 unit) tablet (Vitamin D3) losartan 25 mg tablet 25 mg PO DAILY 12/26/15 Unknown History oxybutynin chloride 5 mg tablet 5 mg PO BID 12/26/15 Unknown History diltiazem HCl 180 mg capsule,24 360 mg PO DAILY 09/08/20 Unknown History hr,extended release lorazepam 0.5 mg tablet 0.5 mg PO DAILY 09/08/20 Unknown History acetaminophen 500 mg tablet 500 mg PO Q6H PRN pain 08/23/22 Unknown History (Tylenol Extra Strength) cetirizine 5 mg tablet 5 mg PO DAILY PRN allergy symptoms 08/23/22 Unknown History fluticasone propionate 50 1 spray intranasal DAILY 08/23/22 Unknown History mcg/actuation nasal spray,suspension omeprazole 40 mg capsule,delayed 40 mg PO DAILY 08/23/22 Unknown History release sodium chloride 0.65 % nasal spray 1 spray intranasal ONCE 08/23/22 Unknown History aerosol denosumab 60 mg/mL subcutaneous 60 mg subcut [id number] #1 mL 10/03/22 Unknown Rx syringe (Prolia) Lactobacillus rhamnosus GG 20 1 cell PO DAILY 12/16/23 Unknown History billion cell capsule (Probiotic Digestive Care) ondansetron 8 mg disintegrating 8 mg PO Q8H PRN nausea and 02/21/24 Unknown Rx tablet vomiting #15 tabs docusate sodium 100 mg capsule 100 mg PO TID #90 caps 03/25/24 Unknown Rx Allergy/AdvReac Type Severity Reaction Status Date / Time lisinopril Allergy Swelling Verified 03/20/24 08:57 esomeprazole (From Nexium) AdvReac Nausea/Vom/ Verified 03/20/24 08:57 Diarrhea Family History Father Alcoholism Brother Alcoholism Mother Arthritis Hypertension Osteoporosis Surgical History History of tubal ligation History of cholecystectomy History of knee replacement H/O partial nephrectomy Social History Smoking Status: Former smoker alcohol intake: never what type of physical activity do you participate in: bicycling ROS Constitutional Constitutional: Denies fatigue, fever(s), poor appetite, weight gain or weight loss (more content not included)...[facility]01-22-2025 Evaluation note* Diagnosis Onset Date Resolution Status Admit Date Acute constipation inactive 2024 10:59am Bright red rectal bleeding inactive March 25, 2024 10:59am Diarrhea acute March 30, 2024 10:26am GI bleed acute March 30, 2024 10:26am Colonic stricture acute 2024 1:29pm GI bleed acute April 21, 2024 1:29pm [facility] Work Phone: 1(568) 545-612601-22-2025 Evaluation note* Diagnosis Onset Date Resolution Status Admit Date Acute constipation inactive 2024 10:59am Bright red rectal bleeding inactive March 25, 2024 10:59am Diarrhea acute March 30, 2024 10:26am GI bleed acute March 30, 2024 10:26am Colonic stricture acute 2024 1:29pm GI bleed acute April 21, 2024 1:29pm Colonic stricture acute June 022024 11:36am GI bleed acute June 12 11:36am [facility] Work Phone: 1(419) 685-209001-15-2025 Instructions* Patient Instructions* Femi Baeza MD - 03/18/2024 2:22 PM EST Screening schedule The following prevention plan is recommended: Depression Screening Never done BP Controlled (<130/80) Never done Shingrix Vaccine(1 of 2) Never done DTaP,Tdap,Td Vaccine(1 - Tdap) due on 05/20/2007 RSV Vaccine(1 - 1-dose 75+ series) Never done Advance Directive Discussion due on 03/04/2024 WHAT YOU CAN DO TO PREVENT FALLS Many falls can be prevented. By making some changes, you can lower your chances of falling. Four things YOU can do to prevent falls for you* and your caregiver 1. Begin a regular exercise program Exercise is one of the most important ways to lower your chances of falling. It makes you stronger and helps you feel better. Exercises that improve balance and coordination (like Larry Chi) are the most helpful. Lack of exercise leads to weakness and increases your chances of falling. Ask your doctor or health care provider about the best type of exercise program for you. 2. Have your health care provider review your medicines Have your doctor or pharmacist review all the medicines you take, even [id number] medicines. As you get older, the way medicines work in your body can change. Some medicines, or combinations of medicines, can make you sleepy or dizzy andcan cause you to fall. 3. Have your vision checked Have your eyes checked by an eye doctor at least once a year. You may be wearing the wrong glasses or have a condition like glaucoma or cataracts that limits your vision. Poor vision can increase your chances of falling. 4. Make your home safer About half of all falls happen at home. To make your home safer: Remove things you can trip over (like papers, books, clothes, and shoes) from stairs and places where you walk. Remove small throw rugs or use double-sided tape to keep the rugs from slipping. Keep items you use often in cabinets you can reach easily without using a step stool. Have grab bars put in next to your toilet and in the tub or shower. Use non-slip mats in the bathtub and on shower floors. Improve the lighting in your home. As you get older, you need brighter lights to see well. Hang light-weight curtains or shades to reduce glare. Have handrails and lights put in on all staircases. Wear shoes both inside and outside the house. Avoid going barefoot or wearing slippers. For more information, contact: Centers for Disease Control and Prevention www.cdc.gov/injury * This information may not apply if you have certain medical conditions. documented [facility]25 NoteHNO ID: [id number] Author: FEMI BAEZA MD Service: ? Author Type: Physician Type: Progress Notes Filed: 03/18/2024 14:32 Note Text: This note was created using [employer]. Subjective Leonel Andre is a 79 year old female. She was scheduled to see GI for constipation. She was prescribed Constulose as needed. Her hypertension was not at goal. Hip and low back pain were stable, but limiting her ambulation. She felt better using a walker tried during physical therapy. She requested a prescription. She started having a cold and cough 5 days ago, productive of some phlegm. No fever or chills was noted. Review of Systems Constitutional: Negative for fatigue and fever. HENT: Positive for congestion. Negative for ear pain and sore throat. Respiratory: Negative for shortness of breath and wheezing. Cardiovascular: Negative for chest pain, palpitations and leg swelling. Gastrointestinal: Positive for constipation. Genitourinary: Negative for difficulty urinating. Neurological: Negative for dizziness and headaches. ACTIVE PROBLEM LIST Essential Hypertension Esophageal Reflux Vitamin D Deficiency Constipation Scoliosis Urge Incontinence History of Renal Cell Carcinoma Osteoporosis Anxiety Pain in Right Hip Radiculopathy, Lumbar Region Mass of Right Kidney Social History Tobacco Use Smoking status: Former Current packs/day: 0.00 Average packs/day: 1 pack/day for 23.0 years (23.0 ttl pk-yrs) Types: Cigarettes Start date: 03/04/1956 Quit date: 03/04/1979 Years since quittin.0 Smokeless tobacco: Never Vaping Use Vaping status: Never Used Substance Use Topics Alcohol use: No Drug use: No Current Outpatient Medications Medication Sig docusate sodium (COLACE) 100 mg capsule Take 1 capsule by mouth two times a day. oxybutynin (DITROPAN) 5 mg tablet Take 1 tablet by mouth two times a day. omeprazole (PRILOSEC) 40 mg capsule Take 1 capsule by mouth once daily. LORazepam (ATIVAN) 0.5 mg Take 1 tablet by mouth once daily as needed (anxiety) for up to 90 days. 3 months supply. dilTIAZem CR (TAZTIA XT) 180 mg 24 hr capsule Take 2 capsules by mouth once daily. Patient should start on November 03, 2023. losartan (COZAAR) 25 mg tablet Take 1 tablet by mouth two times a day. Cholecalciferol, Vitamin D3, 50 mcg (2,000 unit) cap Take 1 capsule by mouth once daily. Prescribed by endocrinology (Dr. César Johnson) denosumab (PROLIA) 60 mg/mL Once every 6 months. Prescribed by endocrinology (Dr. César Johnson) Dextrin (EASY FIBER) 3 gram/3.5 gram powd Take 3 g by mouth once daily. Mixed with water. Sennosides (SENOKOT EXTRA STRENGTH) 17.2 mg tab Take 1 tablet by mouth daily with lunch AND 2 tablets daily at bedtime. lactobacillus comb no.10 (PROBIOTIC) 20 billion cell cap Take 1 capsule by mouth daily at bedtime. fexofenadine (MUCINEX ALLERGY) 180 mg tablet Take 180 mg by mouth once daily. fluticasone (FLONASE) 50 mcg/actuation nasal spray Use 2 Sprays in each nostril once daily. Rinse mouth after use. ACETAMINOPHEN (TYLENOL ARTHRITIS ORAL) Take by mouth. No current facility-administered medications for this visit. Objective BP 131/70 (BP Site: Left Arm, BP Position: Sitting, BP Cuff Size: Large Adult) Pulse 65 Temp 36.8 ?C (98.2 ?F) (Temporal) Ht 167.6 cm (5' 6") Wt 62.5 kg (137 lb 12.6 oz) BMI 22.24 kg/m? Physical Exam Constitutional: General: She is not in acute distress. Appearance: She is not ill-appearing. Eyes: Conjunctiva/sclera: Conjunctivae normal. Cardiovascular: Rate and Rhythm: Normal rate and regular rhythm. Heart sounds: No murmur heard. No gallop. Pulmonary: Effort: No respiratory distress. Breath sounds: No wheezing or rales. Abdominal: General: There is no distension. Palpations: Abdomen is soft. Tenderness: There is no abdominal tenderness. Musculoskeletal: Thoracic back: Scoliosis present. Lumbar back: Scoliosis present. Right lower leg: No edema. Left lower leg: No edema. Neurological: General: No focal deficit present. Mental Status: She is alert. Gait: Gait abnormal. Assessment and Plan 1. Medicare annual wellness visit, subsequent - ICD9: V70.0, ICD10: Z00.00 (primary diagnosis) - See wellness visit. 2. Anxiety - ICD9: 300.00, ICD10: F41.9 Controlled. - LORAZEPAM 0.5 MG TABLET. Take one(1) tablet daily. Patient taking almost daily. No adverse effects noted. Risks reviewed. 3. Essential hypertension - ICD9: 401.9, ICD10: I10 - Improving control - Continue current medications - Encouraged sodium restriction, DASH or Mediterranean diet - LOSARTAN 50 MG TABLET. Take one(1) tablet two(2) times daily. Dose increased. 4. Screening for depression - ICD9: V79.0, ICD10: Z13.31 - DEPRESSION SCREENING 5. Radiculopathy, lumbar region - ICD9: 724.4, ICD10: M54.16 Chronic low back pain - WALKER FOLDING WHEELED W/O S 6. Pain in right hip - ICD9: 719.45, ICD10: M25.551 - (more content not included)...[facility]01-15-[facility]25 History of Present illness Narrative* Femi Baeza MD - 03/18/2024 2:17 PM EST This note was created using [employer]. Subjective Leonel Andre is a 79 year old female. She was scheduled to see GI for constipation. She was prescribed Constulose as needed. Her hypertension was not at goal. Hip and low back pain were stable, but limiting her ambulation. She felt better using a walker tried during physical therapy. She requested a prescription. She started having a cold and cough 5 days ago, productive of some phlegm. No fever or chills was noted. Review of Systems Constitutional: Negative for fatigue and fever. HENT: Positive for congestion. Negative for ear pain and sore throat. Respiratory: Negative for shortness of breath and wheezing. Cardiovascular: Negative for chest pain, palpitations and leg swelling. Gastrointestinal: Positive for constipation. Genitourinary: Negative for difficulty urinating. Neurological: Negative for dizziness and headaches. ACTIVE PROBLEM LIST Essential Hypertension Esophageal Reflux Vitamin D Deficiency Constipation Scoliosis Urge Incontinence History of Renal Cell Carcinoma Osteoporosis Anxiety Pain in Right Hip Radiculopathy, Lumbar Region Mass of Right Kidney Social History Tobacco Use Smoking status: Former Current packs/day: 0.00 Average packs/day: 1 pack/day for 23.0 years (23.0 ttl pk-yrs) Types: Cigarettes Start date: 03/04/1955 Quit date: 03/04/1979 Years since quittin.0 Smokeless tobacco: Never Vaping Use Vaping status: Never Used Substance Use Topics Alcohol use: No Drug use: No Current Outpatient Medications Medication Sig docusate sodium (COLACE) 100 mg capsule Take 1 capsule by mouth two times a day. oxybutynin (DITROPAN) 5 mg tablet Take 1 tablet by mouth two times a day. omeprazole (PRILOSEC) 40 mg capsule Take 1 capsule by mouth once daily. LORazepam (ATIVAN) 0.5 mg Take 1 tablet by mouth once daily as needed (anxiety) for up to 90 days. 3 months supply. dilTIAZem CR (TAZTIA XT) 180 mg 24 hr capsule Take 2 capsules by mouth once daily. Patient should start on November 03, 2023. losartan (COZAAR) 25 mg tablet Take 1 tablet by mouth two times a day. Cholecalciferol, Vitamin D3, 50 mcg (2,000 unit) cap Take 1 capsule by mouth once daily. Prescribedby endocrinology (Dr. César Johnson) denosumab (PROLIA) 60 mg/mL Once every 6 months. Prescribed by endocrinology (Dr. César Johnson) Dextrin (EASY FIBER) 3 gram/3.5 gram powd Take 3 g by mouth once daily. Mixed with water. Sennosides (SENOKOT EXTRA STRENGTH) 17.2 mg tab Take 1 tablet by mouth daily with lunch AND 2 tablets daily at bedtime. lactobacillus comb no.10 (PROBIOTIC) 20 billion cell cap Take 1 capsule by mouth daily at bedtime. fexofenadine (MUCINEX ALLERGY) 180 mg tablet Take 180 mg by mouth once daily. fluticasone (FLONASE) 50 mcg/actuation nasal spray Use 2 Sprays in each nostril once daily. Rinse mouth after use. ACETAMINOPHEN (TYLENOL ARTHRITIS ORAL) Take by mouth. No current facility-administered medications for this visit. Objective BP 131/70 (BP Site: Left Arm, BP Position: Sitting, BP Cuff Size: Large Adult) Pulse 65 Temp 36.8 C (98.2 F) (Temporal) Ht 167.6 cm (5' 6") Wt 62.5 kg (137 lb 12.6 oz) BMI 22.24 kg/m Physical Exam Constitutional: General: She is not in acute distress. Appearance: She is not ill-appearing. Eyes: Conjunctiva/sclera: Conjunctivae normal. Cardiovascular: Rate and Rhythm: Normal rate and regular rhythm. Heart sounds: No murmur heard. No gallop. Pulmonary: Effort: No respiratory distress. Breath sounds: No wheezing or rales. Abdominal: General: There is no distension. Palpations: Abdomen is soft. Tenderness: There is no abdominal tenderness. Musculoskeletal: Thoracic back: Scoliosis present. Lumbar back: Scoliosis present. Right lower leg: No edema. Left lower leg: No edema. Neurological: General: No focal deficit present. Mental Status: She is alert. Gait: Gait abnormal. Assessment and Plan 1. Medicare annual wellness visit, subsequent - ICD9: V70.0, ICD10: Z00.00 (primary diagnosis) - See wellness visit. 2. Anxiety - ICD9: 300.00, ICD10: F41.9 Controlled. - LORAZEPAM 0.5 MG TABLET. Take one(1) tablet daily. Patient taking almost daily. No adverse effects noted. Risks reviewed. 3. Essential hypertension - ICD9: 401.9, ICD10: I10 - Improving control - Continue current medications - Encouraged sodium restriction, DASH or Mediterranean diet - LOSARTAN 50 MG TABLET. Take one(1) tablet two(2) times daily. Dose increased. 4. Screening for depression - ICD9: V79.0, ICD10: Z13.31 - DEPRESSION SCREENING 5. Radiculopathy, lumbar region - ICD9: 724.4, ICD10: M54.16 Chronic low back pain - WALKER FOLDING WHEELED W/O S 6. Pain in right hip - ICD9: 719.45, ICD10: M25.551 - WALKER FOLDING WHEELED W/O S 7. History of renal cell carcinoma - ICD9: V10.52, ICD10: Z85.528 - Monitored by urology. 8. Osteoporosis, unspecified osteoporosis type, unspecified pathological fracture presence - ICD9: 733.00, ICD10: M81.0 - continue tx with DENOSUMAB per endocrinology. - Reviewed the need for Calcium and Vitamin D supplements and weight bearing exercise as tolerated Femi Baeza MD * Femi Baeza MD - 03/18/2024 2:04 PM EST Images from the original note were not included. Leonel Andre is a 79 year old female here for a Medicare wellness visit. Medicare Health Risk Assessment General Health Good Exercise: Minutes/Day 10 min Exercise: Days/Week 2 days Alcohol: Daily Use Never Alcohol: Drinks/Day Patient does not drink Alcohol: 6 or more drinks Never Feel off balance Yes Concerns: Teeth/Dentures No Concerns: Sexual function No Troubled by feelings Anxious; Thoughts of hurting myself; Stressed Frequency: Eating healthy diet Nearly every day ADLs requiring help Grocery shopping; Housework; Sitting or standing; Walking Safety precautions in home/vehicle Yes Smoke, vape, chews tobacco No Difficulty hearing Yes Difficulty seeing No Current Providers Specialists: I have reviewed specialist-related care of the patient in the medical record. Current care team: Patient Care Team: Femi Baeza MD as PCP - General Xuan Brandon APRN.[employer]KER as Research Test Engine Operator (Internal Medicine) Outside specialists seen: Zach Negro MD (Urology) César Johnson MD (Endocrinology) Nawaf Collins MD (ENT) Taiwo Weeks MD (Ophthalmology) Delmy Arroyo MD (Gastroenterology). Medical/Family history review Reviewed and updated problem list, medical/surgical/family/social history, medications, and allergies. Opioid use review Opioid Medications (last 90 days) No data to display Anxiety/Depression screening Recommendation: no further intervention at this time Cognitive screening Mini Cog Score: 5 Cognitive screening reviewed and No further action needed (score 3-5). Functional Observation Was the patient's Timed Up & Go test unsteady or >= 12 seconds? No Advance Care Planning Surrogate decision maker and/or advance care plan documented Measurements BP 131/70 (BP Site: Left Arm, BP Position: Sitting, BP Cuff Size: Large Adult) Pulse 65 Temp 36.8 C (98.2 F) (Temporal) Ht 167.6 cm (5' 6") Wt 62.5 kg (137 lb 12.6 oz) BMI 22.24 kg/m Vision Screening: Follows with optometry/ophthalmology Right: 20/25 Left: 20/ 40 Both: 20/25 Assessment/Plan Medicare annual wellness visit, subsequent (Z00.00) - Counseled on healthy diet and regular exercise - Fall avoidance information provided - Personalized prevention plan provided - Vaccines reviewed. [facility] NoteHNO ID: [id number] Author: FEMI BAEZA MD Service: ? Author Type: Physician Type: Progress Notes Filed: 03/18/2024 14:32 Note Text: Leonel Andre is a 79 year old female here for a Medicare wellness visit. Medicare Health Risk Assessment General Health Good Exercise: Minutes/Day 10 min Exercise: Days/Week 2 days Alcohol: Daily Use Never Alcohol: Drinks/Day Patient does not drink Alcohol: 6 or more drinks Never Feel off balance Yes Concerns: Teeth/Dentures No Concerns: Sexual function No Troubled by feelings Anxious; Thoughts of hurting myself; Stressed Frequency: Eating healthy diet Nearly every day ADLs requiring help Grocery shopping; Housework; Sitting or standing; Walking Safety precautions in home/vehicle Yes Smoke, vape, chews tobacco No Difficulty hearing Yes Difficulty seeing No Current Providers Specialists: I have reviewed specialist-related care of the patient in the medical record. Current care team: Patient Care Team: Femi Baeza MD as PCP - General Xuan Brandon APRN.SNUFF MAKER as Research Test Engine Operator (Internal Medicine) Outside specialists seen: Zach Negro MD (Urology) César Johnson MD (Endocrinology) Nawaf Collins MD (ENT) Taiwo Weeks MD (Ophthalmology) Delmy Arroyo MD (Gastroenterology). Medical/Family history review Reviewed and updated problem list, medical/surgical/family/social history, medications, and allergies. Opioid use review Opioid Medications (last 90 days) No data to display Anxiety/Depression screening Recommendation: no further intervention at this time Cognitive screening Mini Cog Score: 5 Cognitive screening reviewed and No further action needed (score 3-5). Functional Observation Was the patient's Timed Up AND Go test unsteady or >= 12 seconds? No Advance Care Planning Surrogate decision maker and/or advance care plan documented Measurements BP 131/70 (BP Site: Left Arm, BP Position: Sitting, BP Cuff Size: Large Adult) Pulse 65 Temp 36.8 ?C (98.2 ?F) (Temporal) Ht 167.6 cm (5' 6") Wt 62.5 kg (137 lb 12.6 oz) BMI 22.24 kg/m? Vision Screening: Follows with optometry/ophthalmology Right: 20/25 Left: 20/ 40 Both: 20/25 Assessment/Plan Medicare annual wellness visit, subsequent (Z00.00) - Counseled on healthy diet and regular exercise - Fall avoidance information provided - Personalized prevention plan provided - Vaccines reviewed.[facility]12-30-2024 NoteHNO ID: [id number] Author: FEMI BAEZA MD Service: ? Author Type: Physician Type: Progress Notes Filed: 03/02/2024 16:58 Note Text: This note was created using [employer]. Subjective Patient presents with: ER F/U Leonel Andre is a 79 year old female. She was seen in the ER twice initially for gastroenteritis then later the same day for GI bleeding after straining. She felt something prolapse. Her nausea, vomiting, and diarrhea resolved. GI bleeding resolved after Pepto Bismol. She was now constipated and had no bowel movements for [address] of the abdomen and pelvis was non specific. There was mention of increased mass of the right kidney which we reviewed, and is monitored by urology. Review of Systems Constitutional: Positive for fatigue. Negative for appetite change, chills, fever and unexpected weight change. HENT: Negative. Respiratory: Negative for shortness of breath. Cardiovascular: Negative for chest pain. Gastrointestinal: Negative for abdominal distention, abdominal pain, blood in stool, diarrhea, nausea and vomiting. Genitourinary: Negative for difficulty urinating and hematuria. ACTIVE PROBLEM LIST Essential Hypertension Esophageal Reflux Vitamin D Deficiency Constipation Scoliosis Urge Incontinence History of Renal Cell Carcinoma Osteoporosis Anxiety Pain in Right Hip Radiculopathy, Lumbar Region Mass of Right Kidney Current Outpatient Medications Medication Sig oxybutynin (DITROPAN) 5 mg tablet Take 1 tablet by mouth two times a day. omeprazole (PRILOSEC) 40 mg capsule Take 1 capsule by mouth once daily. LORazepam (ATIVAN) 0.5 mg Take 1 tablet by mouth once daily as needed (anxiety) for up to 90 days. 3 months supply. dilTIAZem CR (TAZTIA XT) 180 mg 24 hr capsule Take 2 capsules by mouth once daily. Patient should start on November 03, 2023. losartan (COZAAR) 25 mg tablet Take 1 tablet by mouth two times a day. Cholecalciferol, Vitamin D3, 50 mcg (2,000 unit) cap Take 1 capsule by mouth once daily. Prescribed by endocrinology (Dr. César Johnson) denosumab (PROLIA) 60 mg/mL Once every 6 months. Prescribed by endocrinology (Dr. César Johnson) Dextrin (EASY FIBER) 3 gram/3.5 gram powd Take 3 g by mouth once daily. Mixed with water. Sennosides (SENOKOT EXTRA STRENGTH) 17.2 mg tab Take 1 tablet by mouth daily with lunch AND 2 tablets daily at bedtime. lactobacillus comb no.10 (PROBIOTIC) 20 billion cell cap Take 1 capsule by mouth daily at bedtime. fexofenadine (MUCINEX ALLERGY) 180 mg tablet Take 180 mg by mouth once daily. fluticasone (FLONASE) 50 mcg/actuation nasal spray Use 2 Sprays in each nostril once daily. Rinse mouth after use. ACETAMINOPHEN (TYLENOL ARTHRITIS ORAL) Take by mouth. docusate sodium (COLACE) 100 mg capsule Take 1 capsule by mouth two times a day. No current facility-administered medications for this visit. Objective BP 142/70 (BP Site: Left Arm, BP Position: Sitting, BP Cuff Size: Large Adult) Pulse 76 Temp 37 ?C (98.6 ?F) (Temporal) Resp 16 Wt 61.8 kg (136 lb 3.9 oz) BMI 23.39 kg/m? Physical Exam Constitutional: General: She is not in acute distress. Appearance: She is not ill-appearing or diaphoretic. HENT: Mouth/Throat: Mouth: Mucous membranes are moist. Eyes: Conjunctiva/sclera: Conjunctivae normal. Cardiovascular: Heart sounds: Normal heart sounds. Pulmonary: Breath sounds: Normal breath sounds. Abdominal: General: Bowel sounds are normal. There is no distension. Palpations: Abdomen is soft. There is no mass. Tenderness: There is no abdominal tenderness. Musculoskeletal: Right lower leg: No edema. Left lower leg: No edema. Neurological: Mental Status: She is alert. ER reports reviewed. Kidney lesion size is similar. Assessment and Plan 1. Gastrointestinal hemorrhage, unspecified gastrointestinal hemorrhage type - ICD9: 578.9, ICD10: K92.2 (primary diagnosis) Colitis? - COMPLETE BLOOD COUNT today. - CONSULT TO GASTROENTEROLOGY. Patient unable to travel. Refer to [facility]. 2. Constipation, unspecified constipation type - ICD9: 564.00, ICD10: K59.00 Trial docusate. Continue fluids, Senokot. She felt she had tried Miralax without benefit in the past. - DOCUSATE SODIUM 100 MG CAPSULE 3. Mass of right kidney - ICD9: 593.9, ICD10: N28.89 - Reassured. This is monitored by her urologist. Femi Baeza [facility]12-30-2024 History of Present illness Narrative* Femi Baeza MD - 03/02/2024 4:43 PM EST This note was created using [employer]. Subjective Patient presents with: ER F/U Leonel Andre is a 79 year old female. She was seen in the ER twice initially for gastroenteritis then later the same day for GI bleeding after straining. She felt something prolapse. Hernausea, vomiting, and diarrhea resolved. GI bleeding resolved after Pepto Bismol. She was now constipated and had no bowel movements for [address] of the abdomen and pelvis was non specific. There was mention of increased mass of the right kidney which we reviewed, and is monitored by urology. Review of Systems Constitutional: Positive for fatigue. Negative for appetite change, chills, fever and unexpected weight change. HENT: Negative. Respiratory: Negative for shortness of breath. Cardiovascular: Negative for chest pain. Gastrointestinal: Negative for abdominal distention, abdominal pain, blood in stool, diarrhea, nausea and vomiting. Genitourinary: Negative for difficulty urinating and hematuria. ACTIVE PROBLEM LIST Essential Hypertension Esophageal Reflux Vitamin D Deficiency Constipation Scoliosis Urge Incontinence History of Renal Cell Carcinoma Osteoporosis Anxiety Pain in Right Hip Radiculopathy, Lumbar Region Mass of Right Kidney Current Outpatient Medications Medication Sig oxybutynin (DITROPAN) 5 mg tablet Take 1 tablet by mouth two times a day. omeprazole (PRILOSEC) 40 mg capsule Take 1 capsule by mouth once daily. LORazepam (ATIVAN) 0.5 mg Take 1 tablet by mouth once daily as needed (anxiety) for up to 90 days. 3 months supply. dilTIAZem CR (TAZTIA XT) 180 mg 24 hr capsule Take 2 capsules by mouth once daily. Patient should start on November 03, 2023. losartan (COZAAR) 25 mg tablet Take 1 tablet by mouth two times a day. Cholecalciferol, Vitamin D3, 50 mcg (2,000 unit) cap Take 1 capsule by mouth once daily. Prescribedby endocrinology (Dr. César Johnson) denosumab (PROLIA) 60 mg/mL Once every 6 months. Prescribed by endocrinology (Dr. César Johnson) Dextrin (EASY FIBER) 3 gram/3.5 gram powd Take 3 g by mouth once daily. Mixed with water. Sennosides (SENOKOT EXTRA STRENGTH) 17.2 mg tab Take 1 tablet by mouth daily with lunch AND 2 tablets daily at bedtime. lactobacillus comb no.10 (PROBIOTIC) 20 billion cell cap Take 1 capsule by mouth daily at bedtime. fexofenadine (MUCINEX ALLERGY) 180 mg tablet Take 180 mg by mouth once daily. fluticasone (FLONASE) 50 mcg/actuation nasal spray Use 2 Sprays in each nostril once daily. Rinse mouth after use. ACETAMINOPHEN (TYLENOL ARTHRITIS ORAL) Take by mouth. docusate sodium (COLACE) 100 mg capsule Take 1 capsule by mouth two times a day. No current facility-administered medications for this visit. Objective BP 142/70 (BP Site: Left Arm, BP Position: Sitting, BP Cuff Size: Large Adult) Pulse 76 Temp 37C (98.6 F) (Temporal) Resp 16 Wt 61.8 kg (136 lb 3.9 oz) BMI 23.39 kg/m Physical Exam Constitutional: General: She is not in acute distress. Appearance: She is not ill-appearing or diaphoretic. HENT: Mouth/Throat: Mouth: Mucous membranes are moist. Eyes: Conjunctiva/sclera: Conjunctivae normal. Cardiovascular: Heart sounds: Normal heart sounds. Pulmonary: Breath sounds: Normal breath sounds. Abdominal: General: Bowel sounds are normal. There is no distension. Palpations: Abdomen is soft. There is no mass. Tenderness: There is no abdominal tenderness. Musculoskeletal: Right lower leg: No edema. Left lower leg: No edema. Neurological: Mental Status: She is alert. ER reports reviewed. Kidney lesion size is similar. Assessment and Plan 1. Gastrointestinal hemorrhage, unspecified gastrointestinal hemorrhage type - ICD9: 578.9, ICD10: K92.2 (primary diagnosis) Colitis? - COMPLETE BLOOD COUNT today. - CONSULT TO GASTROENTEROLOGY. Patient unable to travel. Refer to [facility]. 2. Constipation, unspecified constipation type - ICD9: 564.00, ICD10: K59.00 Trial docusate. Continue fluids, Senokot. She felt she had tried Miralax without benefit in the past. - DOCUSATE SODIUM 100 MG CAPSULE 3. Mass of right kidney - ICD9: 593.9, ICD10: N28.89 - Reassured. This is monitored by her urologist. Femi Baeza MD documented [facility] this encounter[facility] Instructions* Patient Instructions* Femi Baeza MD - 02/04/2024 12:[address] Collins. documented in this encounterS[facility]-2024 NoteHNO ID: [id number] Author: MADELAINE GRIFFITHS LPN Service: ? Author Type: LICENSED NURSE Type: Progress Notes Filed: 02/04/2024 12:52 Note Text: Ambulatory Ear Lavage Pre-treatment: Warm water Treatment: Both ears Equipment and Irrigation solution and Volume used: Single use syringe with single use irrigation tip Water Return flow appearance: Other No flow Patient tolerated procedure: No, Patient was starting to feel discomfort with ear lavage, stopped and notified Dr. Baeza Tympanic membrane assessment: Tympanic membrane assessed by LIP pre and post procedure[facility] History of Present illness Narrative* Madelaine Griffiths LPN - 02/04/2024 12:34 PM EST Ambulatory Ear Lavage Pre-treatment: Warm water Treatment: Both ears Equipment and Irrigation solution and Volume used: Single use syringe with single use irrigation tip Water Return flow appearance: Other No flow Patient tolerated procedure: No, Patient was starting to feel discomfort with ear lavage, stopped and notified Dr. Baeza Tympanic membrane assessment: Tympanic membrane assessed by LIP pre and post procedure * Femi Baeza MD - 02/04/2024 12:15 PM EST This note was created using [employer]. Amish Andre is a 78 year old female. She started with rhinorrhea 3 weeks ago, followed by purulent nasal drainage, postnasal drainage, and none productive cough. Other symptoms were some ear pain and decreased hearing on the left. [facility] where she reported testing negative for Covid and influenza. She was prescribed Amoxicillin for 10 days with no improvement in her symptoms. She called Dr. Collins (ENT) but could not be seen till next week. Her hypertension had been elevated off late, but she reported dealing with stressors at this time. Review of Systems Constitutional: Positive for chills and fever. Respiratory: Negative for shortness of breath and wheezing. Cardiovascular: Negative. Gastrointestinal: Negative. ACTIVE PROBLEM LIST Essential Hypertension Esophageal Reflux Vitamin D Deficiency Constipation Scoliosis Urge Incontinence History of Renal Cell Carcinoma Osteoporosis Anxiety Pain in Right Hip Radiculopathy, Lumbar Region Mass of Right Kidney Current Outpatient Medications Medication Sig phenazopyridine (PYRIDIUM) 200 mg tablet three times a day. oxybutynin (DITROPAN) 5 mg tablet Take 1 tablet by mouth two times a day. omeprazole (PRILOSEC) 40 mg capsule Take 1 capsule by mouth once daily. LORazepam (ATIVAN) 0.5 mg Take 1 tablet by mouth once daily as needed (anxiety) for up to 90 days. 3 months supply. dilTIAZem CR (TAZTIA XT) 180 mg 24 hr capsule Take 2 capsules by mouth once daily. Patient should start on November 03, 2023. losartan (COZAAR) 25 mg tablet Take 1 tablet by mouth two times a day. Cholecalciferol, Vitamin D3, 50 mcg (2,000 unit) cap Take 1 capsule by mouth once daily. Prescribedby endocrinology (Dr. César Johnson) denosumab (PROLIA) 60 mg/mL Once every 6 months. Prescribed by endocrinology (Dr. César Johnson) Dextrin (EASY FIBER) 3 gram/3.5 gram powd Take 3 g by mouth once daily. Mixed with water. Sennosides (SENOKOT EXTRA STRENGTH) 17.2 mg tab Take 1 tablet by mouth daily with lunch AND 2 tablets daily at bedtime. lactobacillus comb no.10 (PROBIOTIC) 20 billion cell cap Take 1 capsule by mouth daily at bedtime. fexofenadine (MUCINEX ALLERGY) 180 mg tablet Take 180 mg by mouth once daily. fluticasone (FLONASE) 50 mcg/actuation nasal spray Use 2 Sprays in each nostril once daily. Rinse mouth after use. ACETAMINOPHEN (TYLENOL ARTHRITIS ORAL) Take by mouth. lubiprostone (AMITIZA) 24 mcg capsule Take 1 capsule by mouth two times a day with meals. (Patient not taking: Reported on 02/04/2024) No current facility-administered medications for this visit. Objective BP 148/86 (BP Site: Left Arm, BP Position: Sitting, BP Cuff Size: Large Adult) Pulse 76 Temp 36.5 C (97.7 F) (Temporal) Resp 16 Wt 62.5 kg (137 lb 12.6 oz) BMI 23.65 kg/m Physical Exam Constitutional: General: She is not in acute distress. Appearance: She is not ill-appearing. HENT: Right Ear: Ear canal and external ear normal. There is impacted cerumen. Left Ear: Ear canal and external ear normal. There is impacted cerumen. Nose: Congestion present. No rhinorrhea. Right Turbinates: Swollen. Left Turbinates: Swollen. Right Sinus: No maxillary sinus tenderness or frontal sinus tenderness. Left Sinus: No maxillary sinus tenderness or frontal sinus tenderness. Mouth/Throat: Mouth: Mucous membranes are moist. Pharynx: Posterior oropharyngeal erythema present. No oropharyngeal exudate. Cardiovascular: Heart sounds: Normal heart sounds. Pulmonary: Breath sounds: Normal breath sounds. No wheezing, rhonchi or rales. Lymphadenopathy: Cervical: No cervical adenopathy. Assessment and Plan 1. Rhinosinusitis - ICD9: 473.9, ICD10: J32.9 (primary diagnosis) - Supportive care with plenty of fluids, rest, and analgesia prn. - Shared medical decision making was done and we discussed another antibiotic is not likely to be helpful. - PREDNISONE 20 MG TABLET. Discussed medication dosage, usage, goals of therapy, and side effects. 2. Impacted cerumen of both ears - ICD9: 380.4, ICD10: H61.23 - Consent obtained to try lavage. This was not successful. She will see ENT. - AMBULATORY EAR LAVAGE/IRRIGATION 3. Essential hypertension - ICD9: 401.9, ICD10: I10 - Worsening control - Continue current medications - Reviewed risks of hypertension and principles of treatment Femi Baeza MD documented in this encounterS[facility]12-03-2024 NoteHNO ID: [id number] Author: FEMI BAEZA MD Service: ? Author Type: Physician Type: Progress Notes Filed: 02/04/2024 12:52 Note Text: This note was created using [employer]. Subjective Leonel Andre is a 78 year old female. She started with rhinorrhea 3 weeks ago, followed by purulent nasal drainage, postnasal drainage, and none productive cough. Other symptoms were some ear pain and decreased hearing on the left. She [facility] to [facility] where she reported testing negative for Covid and influenza. She was prescribed Amoxicillin for 10 days with no improvement in her symptoms. She called Dr. Collins (ENT) but could not be seen till next week. Her hypertension had been elevated off late, but she reported dealing with stressors at this time. Review of Systems Constitutional: Positive for chills and fever. Respiratory: Negative for shortness of breath and wheezing. Cardiovascular: Negative. Gastrointestinal: Negative. ACTIVE PROBLEM LIST Essential Hypertension Esophageal Reflux Vitamin D Deficiency Constipation Scoliosis Urge Incontinence History of Renal Cell Carcinoma Osteoporosis Anxiety Pain in Right Hip Radiculopathy, Lumbar Region Mass of Right Kidney Current Outpatient Medications Medication Sig phenazopyridine (PYRIDIUM) 200 mg tablet three times a day. oxybutynin (DITROPAN) 5 mg tablet Take 1 tablet by mouth two times a day. omeprazole (PRILOSEC) 40 mg capsule Take 1 capsule by mouth once daily. LORazepam (ATIVAN) 0.5 mg Take 1 tablet by mouth once daily as needed (anxiety) for up to 90 days. 3 months supply. dilTIAZem CR (TAZTIA XT) 180 mg 24 hr capsule Take 2 capsules by mouth once daily. Patient should start on November 03, 2023. losartan (COZAAR) 25 mg tablet Take 1 tablet by mouth two times a day. Cholecalciferol, Vitamin D3, 50 mcg (2,000 unit) cap Take 1 capsule by mouth once daily. Prescribed by endocrinology (Dr. César Johnson) denosumab (PROLIA) 60 mg/mL Once every 6 months. Prescribed by endocrinology (Dr. César Johnson) Dextrin (EASY FIBER) 3 gram/3.5 gram powd Take 3 g by mouth once daily. Mixed with water. Sennosides (SENOKOT EXTRA STRENGTH) 17.2 mg tab Take 1 tablet by mouth daily with lunch AND 2 tablets daily at bedtime. lactobacillus comb no.10 (PROBIOTIC) 20 billion cell cap Take 1 capsule by mouth daily at bedtime. fexofenadine (MUCINEX ALLERGY) 180 mg tablet Take 180 mg by mouth once daily. fluticasone (FLONASE) 50 mcg/actuation nasal spray Use 2 Sprays in each nostril once daily. Rinse mouth after use. ACETAMINOPHEN (TYLENOL ARTHRITIS ORAL) Take by mouth. lubiprostone (AMITIZA) 24 mcg capsule Take 1 capsule by mouth two times a day with meals. (Patient not taking: Reported on 02/04/2024) No current facility-administered medications for this visit. Objective BP 148/86 (BP Site: Left Arm, BP Position: Sitting, BP Cuff Size: Large Adult) Pulse 76 Temp 36.5 ?C (97.7 ?F) (Temporal) Resp 16 Wt 62.5 kg (137 lb 12.6 oz) BMI 23.65 kg/m? Physical Exam Constitutional: General: She is not in acute distress. Appearance: She is not ill-appearing. HENT: Right Ear: Ear canal and external ear normal. There is impacted cerumen. Left Ear: Ear canal and external ear normal. There is impacted cerumen. Nose: Congestion present. No rhinorrhea. Right Turbinates: Swollen. Left Turbinates: Swollen. Right Sinus: No maxillary sinus tenderness or frontal sinus tenderness. Left Sinus: No maxillary sinus tenderness or frontal sinus tenderness. Mouth/Throat: Mouth: Mucous membranes are moist. Pharynx: Posterior oropharyngeal erythema present. No oropharyngeal exudate. Cardiovascular: Heart sounds: Normal heart sounds. Pulmonary: Breath sounds: Normal breath sounds. No wheezing, rhonchi or rales. Lymphadenopathy: Cervical: No cervical adenopathy. Assessment and Plan 1. Rhinosinusitis - ICD9: 473.9, ICD10: J32.9 (primary diagnosis) - Supportive care with plenty of fluids, rest, and analgesia prn. - Shared medical decision making was done and we discussed another antibiotic is not likely to be helpful. - PREDNISONE 20 MG TABLET. Discussed medication dosage, usage, goals of therapy, and side effects. 2. Impacted cerumen of both ears - ICD9: 380.4, ICD10: H61.23 - Consent obtained to try lavage. This was not successful. She will see ENT. - AMBULATORY EAR LAVAGE/IRRIGATION 3. Essential hypertension - ICD9: 401.9, ICD10: I10 - Worsening control - Continue current medications - Reviewed risks of hypertension and principles of treatment Femi Baeza [facility]11-15-2024 History of Present illness Narrative* Femi Baeza MD - 01/17/2024 2:04 PM EST This note was created using NoteWriter. Subjective Patient presents with: ER F/U: [facility] ER right flank pain Leonel Andre is a 78 year old female. She had chronic right flank pain radiating around the side to her pelvic area. She felt this had worsened and associated with some urinary symptoms, went [facility] ER for evaluation. No urinary tract infection was found. She was prescribed hydrocodone, which she did not pick pulling machine tender. Other associated symptom was constipation. Bowel movements tend to be hard and every 3 days. Laxatives were taken with limited improvement. CT scan was just done by her urologist and we reviewed findings again. Review of Systems Constitutional: Negative for appetite change, chills, diaphoresis, fever and unexpected weight change. Respiratory: Negative for cough and shortness of breath. Gastrointestinal: Positive for abdominal distention and constipation. Negative for blood in stool, diarrhea and nausea. Genitourinary: Positive for flank pain and frequency. Negative for dysuria. ACTIVE PROBLEM LIST Essential Hypertension Esophageal Reflux Vitamin D Deficiency Constipation Scoliosis Urge Incontinence History of Renal Cell Carcinoma Osteoporosis Anxiety Pain in Right Hip Radiculopathy, Lumbar Region Mass of Right Kidney Social History Tobacco Use Smoking status: Former Current packs/day: 0.00 Average packs/day: 1 pack/day for 23.0 years (23.0 ttl pk-yrs) Types: Cigarettes Start date: 03/04/1956 Quit date: 03/04/1979 Years since quittin.9 Smokeless tobacco: Never Vaping Use Vaping status: Never Used Substance Use Topics Alcohol use: No Drug use: No Current Outpatient Medications Medication Sig phenazopyridine (PYRIDIUM) 200 mg tablet three times a day. oxybutynin (DITROPAN) 5 mg tablet Take 1 tablet by mouth two times a day. omeprazole (PRILOSEC) 40 mg capsule Take 1 capsule by mouth once daily. LORazepam (ATIVAN) 0.5 mg Take 1 tablet by mouth once daily as needed (anxiety) for up to 90 days. 3 months supply. dilTIAZem CR (TAZTIA XT) 180 mg 24 hr capsule Take 2 capsules by mouth once daily. Patient should start on November 03, 2023. losartan (COZAAR) 25 mg tablet Take 1 tablet by mouth two times a day. Cholecalciferol, Vitamin D3, 50 mcg (2,000 unit) cap Take 1 capsule by mouth once daily. Prescribedby endocrinology (Dr. César Johnson) denosumab (PROLIA) 60 mg/mL Once every 6 months. Prescribed by endocrinology (Dr. César Johnson) Dextrin (EASY FIBER) 3 gram/3.5 gram powd Take 3 g by mouth once daily. Mixed with water. Sennosides (SENOKOT EXTRA STRENGTH) 17.2 mg tab Take 1 tablet by mouth daily with lunch AND 2 tablets daily at bedtime. lactobacillus comb no.10 (PROBIOTIC) 20 billion cell cap Take 1 capsule by mouth daily at bedtime. fexofenadine (MUCINEX ALLERGY) 180 mg tablet Take 180 mg by mouth once daily. fluticasone (FLONASE) 50 mcg/actuation nasal spray Use 2 Sprays in each nostril once daily. Rinse mouth after use. ACETAMINOPHEN (TYLENOL ARTHRITIS ORAL) Take by mouth. No current facility-administered medications for this visit. Objective BP 142/82 (BP Site: Left Arm) Pulse 106 Temp 36.7 C (98.1 F) Ht 162.6 cm (5' 4") Wt 64 kg (141 lb 1.5 oz) SpO2 98% BMI 24.22 kg/m Physical Exam Constitutional: General: She is not in acute distress. Cardiovascular: Heart sounds: Normal heart sounds. Pulmonary: Breath sounds: Normal breath sounds. Musculoskeletal: Thoracic back: Deformity present. Scoliosis present. Lumbar back: Deformity present. No tenderness. Negative right straight leg raise test and negative left straight leg raise test. Scoliosis present. Right lower leg: No edema. Left lower leg: No edema. Neurological: Mental Status: She is alert. Gait: Gait abnormal. Test results pertinent to today's visit were reviewed and discussed with the patient. Assessment and Plan 1. Radiculopathy, lumbar region - ICD9: 724.4, ICD10: M54.16 (primary diagnosis) Chronic low back pain - Shared medical decision making was done. She felt there was a reasonable change constipation aggravated her flank pain. See #3. 2. Pain in right hip - ICD9: 719.45, ICD10: M25.551 See #3 3. Chronic idiopathic constipation - ICD9: 564.00, ICD10: K59.04 Discussed medication dosage, usage, goals of therapy, and side effects. No laxatives while startingthis medication. PA may be needed. Stop for severe diarrhea. - LUBIPROSTONE 24 MCG CAPSULE Femi Beaza MD documented in this encounterS[facility]-15-2024 NoteHNO ID: [id number] Author: FEMI BAEZA MD Service: ? Author Type: Physician Type: Progress Notes Filed: 01/17/2024 15:26 Note Text: This note was created using [employer]. Subjective Patient presents with: ER F/U: [facility] ER right flank pain Leonel Andre is a 78 year old female. She had chronic right flank pain radiating around the side to her pelvic area. She felt this had worsened and associated with some urinary symptoms, went to the ER for evaluation. No urinary tract infection was found. She was prescribed hydrocodone, which she did not pick pulling machine tender. Other associated symptom was constipation. Bowel movements tend to be hard and every 3 days. Laxatives were taken with limited improvement. CT scan was just done by her urologist and we reviewed findings again. Review of Systems Constitutional: Negative for appetite change, chills, diaphoresis, fever and unexpected weight change. Respiratory: Negative for cough and shortness of breath. Gastrointestinal: Positive for abdominal distention and constipation. Negative for blood in stool, diarrhea and nausea. Genitourinary: Positive for flank pain and frequency. Negative for dysuria. ACTIVE PROBLEM LIST Essential Hypertension Esophageal Reflux Vitamin D Deficiency Constipation Scoliosis Urge Incontinence History of Renal Cell Carcinoma Osteoporosis Anxiety Pain in Right Hip Radiculopathy, Lumbar Region Mass of Right Kidney Social History Tobacco Use Smoking status: Former Current packs/day: 0.00 Average packs/day: 1 pack/day for 23.0 years (23.0 ttl pk-yrs) Types: Cigarettes Start date: 03/04/1956 Quit date: 03/04/1979 Years since quittin.9 Smokeless tobacco: Never Vaping Use Vaping status: Never Used Substance Use Topics Alcohol use: No Drug use: No Current Outpatient Medications Medication Sig phenazopyridine (PYRIDIUM) 200 mg tablet three times a day. oxybutynin (DITROPAN) 5 mg tablet Take 1 tablet by mouth two times a day. omeprazole (PRILOSEC) 40 mg capsule Take 1 capsule by mouth once daily. LORazepam (ATIVAN) 0.5 mg Take 1 tablet by mouth once daily as needed (anxiety) for up to 90 days. 3 months supply. dilTIAZem CR (TAZTIA XT) 180 mg 24 hr capsule Take 2 capsules by mouth once daily. Patient should start on November 03, 2023. losartan (COZAAR) 25 mg tablet Take 1 tablet by mouth two times a day. Cholecalciferol, Vitamin D3, 50 mcg (2,000 unit) cap Take 1 capsule by mouth once daily. Prescribed by endocrinology (Dr. César Johnson) denosumab (PROLIA) 60 mg/mL Once every 6 months. Prescribed by endocrinology (Dr. César Johnson) Dextrin (EASY FIBER) 3 gram/3.5 gram powd Take 3 g by mouth once daily. Mixed with water. Sennosides (SENOKOT EXTRA STRENGTH) 17.2 mg tab Take 1 tablet by mouth daily with lunch AND 2 tablets daily at bedtime. lactobacillus comb no.10 (PROBIOTIC) 20 billion cell cap Take 1 capsule by mouth daily at bedtime. fexofenadine (MUCINEX ALLERGY) 180 mg tablet Take 180 mg by mouth once daily. fluticasone (FLONASE) 50 mcg/actuation nasal spray Use 2 Sprays in each nostril once daily. Rinse mouth after use. ACETAMINOPHEN (TYLENOL ARTHRITIS ORAL) Take by mouth. No current facility-administered medications for this visit. Objective BP 142/82 (BP Site: Left Arm) Pulse 106 Temp 36.7 ?C (98.1 ?F) Ht 162.6 cm (5' 4") Wt 64 kg (141 lb 1.5 oz) SpO2 98% BMI 24.22 kg/m? Physical Exam Constitutional: General: She is not in acute distress. Cardiovascular: Heart sounds: Normal heart sounds. Pulmonary: Breath sounds: Normal breath sounds. Musculoskeletal: Thoracic back: Deformity present. Scoliosis present. Lumbar back: Deformity present. No tenderness. Negative right straight leg raise test and negative left straight leg raise test. Scoliosis present. Right lower leg: No edema. Left lower leg: No edema. Neurological: Mental Status: She is alert. Gait: Gait abnormal. Test results pertinent to today's visit were reviewed and discussed with the patient. Assessment and Plan 1. Radiculopathy, lumbar region - ICD9: 724.4, ICD10: M54.16 (primary diagnosis) Chronic low back pain - Shared medical decision making was done. She felt there was a reasonable change constipation aggravated her flank pain. See #3. 2. Pain in right hip - ICD9: 719.45, ICD10: M25.551 See #3 3. Chronic idiopathic constipation - ICD9: 564.00, ICD10: K59.04 Discussed medication dosage, usage, goals of therapy, and side effects. No laxatives while starting this medication. PA may be needed. Stop for severe diarrhea. - LUBIPROSTONE 24 MCG CAPSULE Fmei Baeza [facility]11-14-2024 NoteHNO ID: [id number] Author: JAYE CARABALLO MA Service: ? Author Type: Utility Porter Type: Progress Notes Filed: 01/16/2024 12:19 Note Text: POPULATION HEALTH NAVIGATION OUTREACH Action/FYI CM Pool Message: Type: [facility] Navigation Team: Ms. Andre was in the ED 01-13-24 for right flank pain that was suspected to be musculoskeletal. Please call and offer to schedule an ED follow up appointment with her PCP. Patient discharged from [facility] Discharge date: 01/13/24 Seen for: Rght flank pain Outcome: 1st attempt. Spoke with patient. Appointment scheduled for 01/17/24. Reason for Outreach Community Monitoring/Network Navigator Pools AND Phone Line: [facility] Patient Contacted: Spoke to patient/parent/or legal guardian Patient identified by name and : Yes Community Monitoring/Network Navigator Pools AND Phone Line actions taken: Patient scheduled: ER Follow-up 01/17/2024 in [facility] with FEMI BAEZA - ED follow up, [facility] 01/13/24, DX Rght flank pain 03/18/2024 in [facility] with FEMI BAEZA - Medicare Wellness Navigation Signature: Jaye Caraballo MA January 16, 2024 12:11 [facility]11-14-2024 History of Present illness Narrative* Jaye Caraballo MA - 01/16/2024 12:11 PM EST POPULATION HEALTH NAVIGATION OUTREACH Action/FYI CM Pool Message: Type: [facility] Navigation Team: Ms. Andre was in the ED 01-13-24 for right flank pain that was suspected to be musculoskeletal. Please call and offer to schedule an ED follow up appointment with her PCP. Patient discharged from [facility] Discharge date: 01/13/24 Seen for: Rght flank pain Outcome: 1st attempt. Spoke with patient. Appointment scheduled for 01/17/24. Reason for Outreach Community Monitoring/Network Navigator Pools & Phone Line: [facility] Patient Contacted: Spoke to patient/parent/or legal guardian Patient identified by name and : Yes Community Monitoring/Network Navigator Pools & Phone Line actions taken: Patient scheduled: ER Follow-up 01/17/2024 in [facility] with FEMI BAEZA - ED follow up, [facility] 01/13/24, DX Rght flank pain 03/18/2024 in [facility] with FEMI BAEZA - Medicare Wellness Navigation Signature: Jaye Caraballo MA January 16, 2024 12:11 PM * Candace Caceres RN - 01/16/2024 11:58 AM EST [facility] PRINCE RN Patient identified by name and date of . Reason for review or outreach: Chart Review [facility] Utilization REQUESTED ACTION/FYI: A follow-up appointment is not noted in patient's record. We are forwarding this patient to [facility] to schedule a follow-up appointment. Navigation Team: Ms. Andre was in the ED 01-13-24 for right flank pain that was suspected to be musculoskeletal. Please call and offer to schedule an ED follow up appointment with her PCP. Exclusion Criteria Does not meet exclusion criteria Utilization in past 6 months: # Occurrences Date Last Occurrence Hospital Admission 0 Not applicable Hospital Observation 0 Not applicable ED 1 01-13-24 SNF / Acute Rehab / LTAC 0 Not applicable ED DIAGNOSES/REASON(S) FOR ED USE: 01-13-24: Right Flank Pain No follow up scheduled thus far. OTHER FINDINGS/SUMMARY: None Patient Attributed To: QAE Payer: Yelitza ANAND Action Taken: Referrals/Routed: Population Health Navigation: Appointment. Router to [facility] [[phone]] Contact made with patient: No, Chart review only. Signature: Candace Caceres RN documented in this encounterS[facility]11-14-2024 NoteHNO ID: [id number] Author: CANDACE CACERES RN Service: ? Author Type: Registered Nurse Type: Progress Notes Filed: 01/16/2024 12:04 Note Text: ACM PRINCE RN Patient identified by name and date of . Reason for review or outreach: Chart Review [facility] Utilization REQUESTED ACTION/FYI: A follow-up appointment is not noted in patient's record. We are forwarding this patient to Network Navigation to schedule a follow-up appointment. Navigation Team: Ms. Andre was in the ED 01-13-24 for right flank pain that was suspected to be musculoskeletal. Please call and offer to schedule an ED follow up appointment with her PCP. Exclusion Criteria Does not meet exclusion criteria Utilization in past 6 months: # Occurrences Date Last Occurrence Hospital Admission 0 Not applicable Hospital Observation 0 Not applicable ED 1 01-13-24 SNF / Acute Rehab / LTAC 0 Not applicable ED DIAGNOSES/REASON(S) FOR ED USE: 01-13-24: Right Flank Pain No follow up scheduled thus far. OTHER FINDINGS/SUMMARY: None Patient Attributed To: QAE Payer: Yelitza ANAND Action Taken: Referrals/Routed: Population Health Navigation: Appointment. Router to [facility] [[id number]] Contact made with patient: No, Chart review only. Signature: Candace Caceres RNUniversity [facility]als [facility]11-14-2024 NotePatient Outreach ([facility]) LEONEL ANDRE ([id number]) 1945 F Date Time Provider Department 01/16/24 CANDACE CACERES [facility] During your visit today, we recorded the following information about you: Candace Caceres RN 01/16/2024 12:04 PM Signed [facility] RN Patient identified by name and date of . Reason for review or outreach: Chart Review [facility] Utilization REQUESTED ACTION/FYI: A follow-up appointment is not noted in patient's record. We are forwarding this patient to Network Navigation to schedule a follow-up appointment. Navigation Team: Ms. Andre was in the ED 01-13-24 for right flank pain that was suspected to be musculoskeletal. Please call and offer to schedule an ED follow up appointment with her PCP. Exclusion Criteria Does not meet exclusion criteria Utilization in past 6 months: # Occurrences Date Last Occurrence Hospital Admission 0 Not applicable Hospital Observation 0 Not applicable ED 1 01-13-24 SNF / Acute Rehab / LTAC 0 Not applicable ED DIAGNOSES/REASON(S) FOR ED USE: 01-13-24: Right Flank Pain No follow up scheduled thus far. OTHER FINDINGS/SUMMARY: None Patient Attributed To: QAE Payer: Yelitza ANAND Action Taken: Referrals/Routed: Population Health Navigation: Appointment. Router to [facility] [[id number]] Contact made with patient: No, Chart review only. Signature: Candace Caceres, Jaye Leslie MA 01/16/2024 12:19 PM Signed POPULATION HEALTH NAVIGATION OUTREACH Action/FYI [facility] Message: Type: [facility] Navigation Team: Ms. Andre was in the ED 01-13-24 for right flank pain that was suspected to be musculoskeletal. Please call and offer to schedule an ED follow up appointment with her PCP. Patient discharged from [facility] Discharge date: 01/13/24 Seen for: Rght flank pain Outcome: 1st attempt. Spoke with patient. Appointment scheduled for 01/17/24. Reason for Outreach Community Monitoring/Network Navigator [employer] Phone Line: AC Patient Contacted: Spoke to patient/parent/or legal guardian Patient identified by name and : Yes Community Monitoring/Network [employer] Phone Line actions taken: Patient scheduled: ER Follow-up 01/17/2024 in [facility] with FEMI BAEZA - ED follow up, [facility] 01/13/24, DX Rght flank pain 03/18/2024 in [facility] with FEMI BAEZA - Medicare Wellness Navigation Signature: Jaye Carablalo MA January 16, 2024 12:11 PM Allergies As of Date: 01/16/2024 Noted Allergy Reaction DUST 11/08/2004 LEXAPRO (ESCITALOPRAM OXALATE) 12/26/2015 14 - Other: See Comments Comments: Dizziness, shakey LISINOPRIL 05/29/2010 7 - Swelling Comments: Swelling in her throat. MOLD 11/08/2004 NEXIUM (ESOMEPRAZOLE MAGNESIUM) 11/08/2004 11 - Vomiting NEXIUM (ESOMEPRAZOLE MAGNESIUM) 10/26/2016 6 - Diarrhea Comments: but was able to take pantoprazole RAGWEED 11/08/2004 Date Reviewed: 11/08/2023 Reviewed by: César Dominguez MA - Fully Assessed Reason for Visit: [facility] RN [[id number]] Cmt: ED Utilization Review per request of payor Prescriptions as of 01/23/2024 - phenazopyridine (PYRIDIUM) 200 mg tablet three times a day. - lubiprostone (AMITIZA) 24 mcg capsule Take 1 capsule by mouth two times a day with meals. - oxybutynin (DITROPAN) 5 mg tablet Take 1 tablet by mouth two times a day. - omeprazole (PRILOSEC) 40 mg capsule Take 1 capsule by mouth once daily. - LORazepam (ATIVAN) 0.5 mg Take 1 tablet by mouth once daily as needed (anxiety) for up to 90 days. 3 months supply. - dilTIAZem CR (TAZTIA XT) 180 mg 24 hr capsule Take 2 capsules by mouth once daily. Patient should start on November 03, 2023. - losartan (COZAAR) 25 mg tablet Take 1 tablet by mouth two times a day. - Cholecalciferol, Vitamin D3, 50 mcg (2,000 unit) cap Take 1 capsule by mouth once daily. Prescribed by endocrinology (Dr. César Johnson) - denosumab (PROLIA) 60 mg/mL Once every 6 months. Prescribed by endocrinology (Dr. César Johnson) - Dextrin (EASY FIBER) 3 gram/3.5 gram powd Take 3 g by mouth once daily. Mixed with water. - Sennosides (SENOKOT EXTRA STRENGTH) 17.2 mg tab Take 1 tablet by mouth daily with lunch AND 2 tablets daily at bedtime. - lactobacillus comb no.10 (PROBIOTIC) 20 billion cell cap Take 1 capsule by mouth daily at bedtime. - fexofenadine (MUCINEX ALLERGY) 180 mg tablet Take 180 mg by mouth once daily. - fluticasone (FLONASE) 50 mcg/actuation nasal spray Use 2 Sprays in each nostril once daily. Rinse mouth after use. - ACETAMINOPHEN (TYLENOL ARTHRITIS ORAL) Take by mouth. Problem List As Of Date 01/16/2024 Noted Resolved Essential hypertension [I10] 11/08/2004 Allergic rhinitis, cause unspecified [J30.9] 11/08/2004 01/21/2017 Degeneration of intervertebral disc (more content not included)...[facility]10-07-[facility]24 Telephone encounter Note* Telephone Encounter - Claribel Cherry LPN - 12/09/2023 9:51 AM EDT Prescription Refill Information The patient has been identified by name and date of : Yes Caregiver verified no other encounters exist for this prescription request: Yes Caregiver confirmed with patient/requestor that no other refills are due, in the near future, with this provider at this time: Yes The last office visit in the department: 11/08/23 Does the patient have a future office visit with this provider/department: Yes 03/18/24 Requested Prescriptions Pending Prescriptions Disp Refills oxybutynin (DITROPAN) 5 mg tablet 180 tablet 3 Sig: Take 1 tablet by mouth two times a day. omeprazole (PRILOSEC) 40 mg capsule 90 capsule 3 Sig: Take 1 capsule by mouth once daily. LORazepam (ATIVAN) 0.5 mg 90 tablet 0 Sig: Take 1 tablet by mouth once daily as needed (anxiety) for up to 90 days. 3 months supply. Claribel Cherry LPN December 09, 2023 9:52 AM [facility]10-07-2024 Miscellaneous Notes* Telephone Encounter - Claribel Cherry LPN - 12/09/2023 9:51 AM EDT Prescription Refill Information The patient has been identified by name and date of : Yes Caregiver verified no other encounters exist for this prescription request: Yes Caregiver confirmed with patient/requestor that no other refills are due, in the near future, with this provider at this time: Yes The last office visit in the department: 11/08/23 Does the patient have a future office visit with this provider/department: Yes 03/18/24 Requested Prescriptions Pending Prescriptions Disp Refills oxybutynin (DITROPAN) 5 mg tablet 180 tablet 3 Sig: Take 1 tablet by mouth two times a day. omeprazole (PRILOSEC) 40 mg capsule 90 capsule 3 Sig: Take 1 capsule by mouth once daily. LORazepam (ATIVAN) 0.5 mg 90 tablet 0 Sig: Take 1 tablet by mouth once daily as needed (anxiety) for up to 90 days. 3 months supply. Claribel Cherry LPN December 09, 2023 9:52 AM documented in [facility] encounter[facility]09-[facility]24 Telephone encounter Note * Telephone Encounter - Madelaine Griffiths LPN - 11/13/2023 8:14 AM EDT Patient notified of below results/recommendations, has an appt with Endo next month. Madelaine Griffiths LPN [facility]09-11-2024 Miscellaneous Notes* Telephone Encounter - Madelaine Griffiths LPN - 11/13/2023 8:14 AM EDT Patient notified of below results/recommendations, has an appt with Endo next month. Madelaine Griffiths LPN * Telephone Encounter - Madelaine Griffiths LPN - 11/13/2023 8:12 AM EDT ----- Message from Xuan Brandon APRN.CNP sent at 11/13/2023 7:57 AM EDT ----- Please let the patient know there has been a signficant decrease in her bone density, especially inthe spine. Recommend follow-up with international organizer concerning these results since she is managing the Prolia injections/osteoporosis Xuan Brandon APRN.NICOLE documented in this encounterS[facility]09-11-2024 Telephone encounter Note * Telephone Encounter - Madelaine Griffiths LPN - 11/13/2023 8:12 AM EDT ----- Message from Xuan Brandon APRN.NICOLE sent at 11/13/2023 7:57 AM EDT ----- Please let the patient know there has been a signficant decrease in her bone density, especially inthe spine. Recommend follow-up with international organizer concerning these results since she is managing the Prolia injections/osteoporosis Xuan Brandon APRN.SNUFF MAKER [facility]09-09-2024 History of Present illness Narrative* Teofilo Dash, RT(R) - 11/11/2023 1:40 PM EDT Radiology Service Progress Note PATIENT NAME: Leonel Andre DATE OF SERVICE: November 11, 2023 TIME: 1:42 PM PATIENT IDENTITY VERIFICATION COMPLETED USING TWO (2) IDENTIFIERS: Name and Date of confirmedby patient verbally. FALL SCREENING: Has the patient had 2 falls in the last year or 1 fall with injury or currently using an Ambulatory Assistive Device (Walker, Cane, Wheelchair, Crutches, etc.)? No PATIENT GENDER DATA: Female. status: : No status: NO. PATIENT RELEVANT IMPLANT DATA REVIEWED: Not Applicable PATIENT PRESENTS WITH AN IMPLANTABLE OR ATTACHED QUALITY AUDITOR: No RADIOLOGY DEPARTMENT: Bone Density PERIPHERAL IV DATA: Not applicable SIGNED BY: RT Buffy(Jose) November 11, 2023 1:42 PM documented in this encounterScci Hospital [facility]09-09-2024 NoteHNO ID: [id number] Author: TEOFILO DASH RT(R) Service: ? Author Type: Technologist Type: Progress Notes Filed: 11/11/2023 13:51 Note Text: Radiology Service Progress Note PATIENT NAME: Leonel Andre DATE OF SERVICE: November 11, 2023 TIME: 1:42 PM PATIENT IDENTITY VERIFICATION COMPLETED USING TWO (2) IDENTIFIERS: Name and Date of confirmed by patient verbally. FALL SCREENING: Has the patient had 2 falls in the last year or 1 fall with injury or currently using an Ambulatory Assistive Device (Walker, Cane, Wheelchair, Crutches, etc.)? No PATIENT GENDER DATA: Female. status: : No status: NO. PATIENT RELEVANT IMPLANT DATA REVIEWED: Not Applicable PATIENT PRESENTS WITH AN IMPLANTABLE OR ATTACHED QUALITY AUDITOR: No RADIOLOGY DEPARTMENT: Bone Density PERIPHERAL IV DATA: Not applicable SIGNED BY: CARLOS Baer) November 11, 2023 1:42 [facility]09-06-2024 NoteHNO ID: [id number] Author: XUAN BRANDON APRN.SNUFF MAKER Service: ? Author Type: Nurse Practitioner Type: Progress Notes Filed: 11/08/2023 13:36 Note Text: CC: Patient presents with: UTI: "Weeks" c/p abdominal cramping, burning with urination HPI Leonel Andre is a 78 year old female who presents with complaint of possible UTI. These symptoms have been present for two weeks Associated symptoms: burning, urgency, frequency, backpain, pressure, and chills Denies: hematuria, fever, abdominal pain, nausea, vomiting Treatments: increasing her fluids PMH: prolapsed bladder, urologist Dr. Negro Review of Systems See HPI PAST MEDICAL HISTORY 11/08/2004: Allergic rhinitis, cause unspecified 10/27/2011: Carcinoma of kidney, renal cell Comment: left 11/08/2004: Degeneration of intervertebral disc, site unspecified 11/08/2004: Depressive disorder, not elsewhere classified 11/08/2004: Diaphragmatic hernia without mention of obstruction or gangrene 11/08/2004: Diarrhea 11/08/2004: Esophageal reflux 09/08/2020: Herpes zoster without complication Comment: Left leg 11/08/2004: Hypoglycemia, unspecified Comment: hypoglycemic events 11/08/2004: Internal hemorrhoids without mention of complication 11/08/2004: Lumbago 06/19/2021: Mass of right kidney 11/08/2004: Need for prophylactic hormone replacement therapy (postmenopausal) No date: Osteoarthritis 12/23/2014: Osteoporosis 11/08/2004: Panic disorder without agoraphobia 06/29/2010: Persistent disorder of initiating or maintaining sleep 2009: PMH - PAST MEDICAL HISTORY OF Comment: Collapsed Arches in Feet 11/08/2004: Postmenopausal atrophic vaginitis 08/29/2011: Scoliosis 01/21/2006: Unequal leg length (acquired) 11/08/2004: Unspecified essential hypertension 11/28/2011: Urge incontinence 06/29/2010: Urinary frequency 10/01/2013: Uterovaginal prolapse PAST SURGICAL HISTORY 02/21/2012: ARTHRP KNE CONDYLEANDPLATU MEDIALANDLAT COMPARTMENTS; Bilateral Comment: Knee replacement, total, Bilateral 1981: CHOLECYSTECTOMY Comment: open 06/09/2004: COLONOSCOPY FLX DX W/COLLJ SPEC WHEN PFRMD Comment: Colonoscopy 10/08/2016: COLONOSCOPY FLX DX W/COLLJ SPEC WHEN PFRMD Comment: Colonoscopy 1975: DILATION AND CURETTAGE DXAND/THER NONOBSTETRIC Comment: x 2 11/06/2012: ESOPHAGOGASTRODUODENOSCOPY TRANSORAL DIAGNOSTIC Comment: EGD 07/10/2013: ESOPHAGOGASTRODUODENOSCOPY TRANSORAL DIAGNOSTIC Comment: EGD 10/08/2016: ESOPHAGOGASTRODUODENOSCOPY TRANSORAL DIAGNOSTIC Comment: EGD 10/25/2011: LAPAROSCOPY PARTIAL NEPHRECTOMY; Left Comment: Robotic left partial nephrectomy d/t renal cell carcinoma 1976: LIG/TRNSXJ FLP TUBE ABDL/VAG APPR UNI/BI Comment: Tubal ligation ALLERGIES Dust, Lexapro [Escitalopram Oxalate], Lisinopril, Mold, Nexium [Esomeprazole Magnesium], Nexium [Esomeprazole Magnesium], and Ragweed MEDICATIONS dilTIAZem CR (TAZTIA XT) 180 mg 24 hr capsule Take 2 capsules by mouth once daily. Patient should start on November 03, 2023. LORazepam (ATIVAN) 0.5 mg Take 1 tablet by mouth once daily as needed (anxiety) for up to 90 days. 3 months supply. losartan (COZAAR) 25 mg tablet Take 1 tablet by mouth two times a day. oxybutynin (DITROPAN) 5 mg tablet Take 1 tablet by mouth twice daily. omeprazole (PRILOSEC) 40 mg capsule Take 1 capsule by mouth once daily. Cholecalciferol, Vitamin D3, 50 mcg (2,000 unit) cap Take 1 capsule by mouth once daily. Prescribed by endocrinology (Dr. César Johnson) denosumab (PROLIA) 60 mg/mL Once every 6 months. Prescribed by endocrinology (Dr. César Johnson) Dextrin (EASY FIBER) 3 gram/3.5 gram powd Take 3 g by mouth once daily. Mixed with water. Sennosides (SENOKOT EXTRA STRENGTH) 17.2 mg tab Take 1 tablet by mouth daily with lunch AND 2 tablets daily at bedtime. lactobacillus comb no.10 (PROBIOTIC) 20 billion cell cap Take 1 capsule by mouth daily at bedtime. fexofenadine (MUCINEX ALLERGY) 180 mg tablet Take 180 mg by mouth once daily. fluticasone (FLONASE) 50 mcg/actuation nasal spray Use 2 Sprays in each nostril once daily. Rinse mouth after use. ACETAMINOPHEN (TYLENOL ARTHRITIS ORAL) Take by mouth. FAMILY HISTORY Problem Relation Age of Onset Hypertension Mother Osteoporosis Mother Thyroid Mother Alcohol/Drug Father alcoholic cirrhosis Breast Cancer Other maternal cousin Coronary Artery Disease Brother of [place] at 54. Social History Tobacco Use Smoking status: Former Current packs/day: 0.00 Average packs/day: 1 pack/day for 23.0 years (23.0 ttl pk-yrs) Types: Cigarettes Start date: 03/04/1956 Quit date: 03/04/1979 Years since quittin.7 Smokeless tobacco: Never Vaping Use Vaping status: Never Used Substance Use Topics Alcohol use: No Drug use: No BP 157/74 Pulse 82 Resp 16 Wt 63 kg (138 lb 14.2 oz) BMI 23.84 kg/m? Physical Exam Vitals reviewed. Constitutional: Appearance: Normal appearance. She is not ill-appe (more content not included)...[facility]09-06-20[facility] History of Present illness Narrative* Xuan Brandon, POTATO PEELER.SNUFF MAKER - 11/08/2023 1:13 PM EDT CC: Patient presents with: UTI: "Weeks" c/p abdominal cramping, burning with urination HPI Leonel Andre is a 78 year old female who presents with complaint of possible UTI. These symptoms have been present for two weeks Associated symptoms: burning, urgency, frequency, backpain, pressure, and chills Denies: hematuria, fever, abdominal pain, nausea, vomiting Treatments: increasing her fluids PMH: prolapsed bladder, urologist Dr. Negro Review of Systems See HPI PAST MEDICAL HISTORY 11/08/2004: Allergic rhinitis, cause unspecified 10/27/2011: Carcinoma of kidney, renal cell Comment: left 11/08/2004: Degeneration of intervertebral disc, site unspecified 11/08/2004: Depressive disorder, not elsewhere classified 11/08/2004: Diaphragmatic hernia without mention of obstruction or gangrene 11/08/2004: Diarrhea 11/08/2004: Esophageal reflux 09/08/2020: Herpes zoster without complication Comment: Left leg 11/08/2004: Hypoglycemia, unspecified Comment: hypoglycemic events 11/08/2004: Internal hemorrhoids without mention of complication 11/08/2004: Lumbago 06/19/2021: Mass of right kidney 11/08/2004: Need for prophylactic hormone replacement therapy (postmenopausal) No date: Osteoarthritis 12/23/2014: Osteoporosis 11/08/2004: Panic disorder without agoraphobia 06/29/2010: Persistent disorder of initiating or maintaining sleep 2009: PMH - PAST MEDICAL HISTORY OF Comment: Collapsed Arches in Feet 11/08/2004: Postmenopausal atrophic vaginitis 08/29/2011: Scoliosis 01/21/2006: Unequal leg length (acquired) 11/08/2004: Unspecified essential hypertension 11/28/2011: Urge incontinence 06/29/2010: Urinary frequency 10/01/2013: Uterovaginal prolapse PAST SURGICAL HISTORY 02/21/2012: ARTHRP KNE CONDYLE&PLATU MEDIAL&LAT COMPARTMENTS; Bilateral Comment: Knee replacement, total, Bilateral 1981: CHOLECYSTECTOMY Comment: open 06/09/2004: COLONOSCOPY FLX DX W/COLLJ SPEC WHEN PFRMD Comment: Colonoscopy 10/08/2016: COLONOSCOPY FLX DX W/COLLJ SPEC WHEN PFRMD Comment: Colonoscopy 1975: DILATION & CURETTAGE DX&/THER NONOBSTETRIC Comment: x 2 11/06/2012: ESOPHAGOGASTRODUODENOSCOPY TRANSORAL DIAGNOSTIC Comment: EGD 07/10/2013: ESOPHAGOGASTRODUODENOSCOPY TRANSORAL DIAGNOSTIC Comment: EGD 10/08/2016: ESOPHAGOGASTRODUODENOSCOPY TRANSORAL DIAGNOSTIC Comment: EGD 10/25/2011: LAPAROSCOPY PARTIAL NEPHRECTOMY; Left Comment: Robotic left partial nephrectomy d/t renal cell carcinoma 1975: LIG/TRNSXJ FLP TUBE ABDL/VAG APPR UNI/BI Comment: Tubal ligation ALLERGIES Dust, Lexapro [Escitalopram Oxalate], Lisinopril, Mold, Nexium [Esomeprazole Magnesium], Nexium [Esomeprazole Magnesium], and Ragweed MEDICATIONS dilTIAZem CR (TAZTIA XT) 180 mg 24 hr capsule Take 2 capsules by mouth once daily. Patient should start on November 03, 2023. LORazepam (ATIVAN) 0.5 mg Take 1 tablet by mouth once daily as needed (anxiety) for up to 90 days. 3 months supply. losartan (COZAAR) 25 mg tablet Take 1 tablet by mouth two times a day. oxybutynin (DITROPAN) 5 mg tablet Take 1 tablet by mouth twice daily. omeprazole (PRILOSEC) 40 mg capsule Take 1 capsule by mouth once daily. Cholecalciferol, Vitamin D3, 50 mcg (2,000 unit) cap Take 1 capsule by mouth once daily. Prescribedby endocrinology (Dr. César Johnson) denosumab (PROLIA) 60 mg/mL Once every 6 months. Prescribed by endocrinology (Dr. César Johnson) Dextrin (EASY FIBER) 3 gram/3.5 gram powd Take 3 g by mouth once daily. Mixed with water. Sennosides (SENOKOT EXTRA STRENGTH) 17.2 mg tab Take 1 tablet by mouth daily with lunch AND 2 tablets daily at bedtime. lactobacillus comb no.10 (PROBIOTIC) 20 billion cell cap Take 1 capsule by mouth daily at bedtime. fexofenadine (MUCINEX ALLERGY) 180 mg tablet Take 180 mg by mouth once daily. fluticasone (FLONASE) 50 mcg/actuation nasal spray Use 2 Sprays in each nostril once daily. Rinse mouth after use. ACETAMINOPHEN (TYLENOL ARTHRITIS ORAL) Take by mouth. FAMILY HISTORY Problem Relation Age of Onset Hypertension Mother Osteoporosis Mother Thyroid Mother Alcohol/Drug Father alcoholic cirrhosis Breast Cancer Other maternal cousin Coronary Artery Disease Brother of [place] at 54. Social History Tobacco Use Smoking status: Former Current packs/day: 0.00 Average packs/day: 1 pack/day for 23.0 years (23.0 ttl pk-yrs) Types: Cigarettes Start date: [birth year]/04/1955 Quit date: 03/04/1979 Years since quittin.7 Smokeless tobacco: Never Vaping Use Vaping status: Never Used Substance Use Topics Alcohol use: No Drug use: No BP 157/74 Pulse 82 Resp 16 Wt 63 kg (138 lb 14.2 oz) BMI 23.84 kg/m Physical Exam Vitals reviewed. Constitutional: Appearance: Normal appearance. She is not ill-appearing. Cardiovascular: Rate and Rhythm: Normal rate and regular rhythm. Heart sounds: Normal heart sounds. No murmur heard. Pulmonary: Effort: Pulmonary effort is normal. Breath sounds: Normal breath sounds. No wheezing, rhonchi or rales. Abdominal: General: There is no distension. Palpations: Abdomen is soft. Tenderness: There is abdominal tenderness in the suprapubic area. There is no right CVA tenderness or left CVA tenderness. Skin: General: Skin is warm and dry. Neurological: Mental Status: She is alert. Psychiatric: Mood and Affect: Mood normal. ASSESSMENT/PLAN: 1. Dysuria - ICD9: 788.1, ICD10: R30.0 (primary diagnosis) - UA DIP, URINE (POC) positive trace blood - send URINE CULTURE - start treatment with Macrobid 100 mg BID x 7 days - follow-up in 2-3 days if no improvement or sooner if worsening - follow-up with Dr. Negro 12/01 as scheduled 2. Urinary frequency - ICD9: 788.41, ICD10: R35.0 As above - UA DIP, URINE (POC) - URINE CULTURE Prescription instructions reviewed with patient as applicable. Potential red flag symptoms discussed with the patient. Reviewed appropriate action plan to take if red flag symptoms occur. Patient agreeable to treatment plan. Xuan Brandon APRN.NICOLE documented [facility] History of Present illness Narrative* Xuan Brandon APRN.NICOLE - 09/23/2023 2:46 PM EDT Images from the original note were not included. CC: Patient presents with: shave biopsy HPI Leonel Andre is a 78 year old female who presents today for shave biopsy. She has an enlargingskin lesion to the left upper back, has also become painful. She denies history of skin cancer. PAST MEDICAL HISTORY Diagnosis Date Allergic rhinitis, cause unspecified 11/08/2004 Carcinoma of kidney, renal cell 10/27/2011 left Degeneration of intervertebral disc, site unspecified 11/08/2004 Depressive disorder, not elsewhere classified 11/08/2004 Diaphragmatic hernia without mention of obstruction or gangrene 11/08/2004 Diarrhea 11/08/2004 Esophageal reflux 11/08/2004 Herpes zoster without complication 09/08/2020 Left leg Hypoglycemia, unspecified 11/08/2004 hypoglycemic events Internal hemorrhoids without mention of complication 11/08/2004 Lumbago 11/08/2004 Mass of right kidney 06/19/2021 Need for prophylactic hormone replacement therapy (postmenopausal) 11/08/2004 Osteoarthritis Osteoporosis 12/23/2014 Panic disorder without agoraphobia 11/08/2004 Persistent disorder of initiating or maintaining sleep 06/29/2010 PMH - PAST MEDICAL HISTORY OF 2009 Collapsed Arches in Feet Postmenopausal atrophic vaginitis 11/08/2004 Scoliosis 08/29/2011 Unequal leg length (acquired) 01/21/2006 Unspecified essential hypertension 11/08/2004 Urge incontinence 11/28/2011 Urinary frequency 06/29/2010 Uterovaginal prolapse 10/01/2013 PAST SURGICAL HISTORY Procedure Laterality Date ARTHRP KNE CONDYLE&PLATU MEDIAL&LAT COMPARTMENTS Bilateral 02/21/2012 Knee replacement, total, Bilateral CHOLECYSTECTOMY 1981 open COLONOSCOPY FLX DX W/COLLJ SPEC WHEN PFRMD 06/09/2004 Colonoscopy COLONOSCOPY FLX DX W/COLLJ SPEC WHEN PFRMD 10/08/2016 Colonoscopy DILATION & CURETTAGE DX&/THER NONOBSTETRIC 1976 x 2 ESOPHAGOGASTRODUODENOSCOPY TRANSORAL DIAGNOSTIC 11/06/2012 EGD ESOPHAGOGASTRODUODENOSCOPY TRANSORAL DIAGNOSTIC 07/10/2013 EGD ESOPHAGOGASTRODUODENOSCOPY TRANSORAL DIAGNOSTIC 10/08/2016 EGD LAPAROSCOPY PARTIAL NEPHRECTOMY Left 10/25/2011 Robotic left partial nephrectomy d/t renal cell carcinoma LIG/TRNSXJ FLP TUBE ABDL/VAG APPR UNI/BI 1975 Tubal ligation ALLERGIES Dust, Lexapro [Escitalopram Oxalate], Lisinopril, Mold, Nexium [Esomeprazole Magnesium], Nexium [Esomeprazole Magnesium], and Ragweed MEDICATIONS [START ON 11/03/2023] dilTIAZem CR (TAZTIA XT) 180 mg 24 hr capsule Take 2 capsules by mouth once daily. Patient should start on November 03, 2023. LORazepam (ATIVAN) 0.5 mg Take 1 tablet by mouth once daily as needed (anxiety) for up to 90 days. 3 months supply. losartan (COZAAR) 25 mg tablet Take 1 tablet by mouth two times a day. oxybutynin (DITROPAN) 5 mg tablet Take 1 tablet by mouth twice daily. omeprazole (PRILOSEC) 40 mg capsule Take 1 capsule by mouth once daily. Cholecalciferol, Vitamin D3, 50 mcg (2,000 unit) cap Take 1 capsule by mouth once daily. Prescribedby endocrinology (Dr. César Johnson) denosumab (PROLIA) 60 mg/mL Once every 6 months. Prescribed by endocrinology (Dr. César Johnson) Dextrin (EASY FIBER) 3 gram/3.5 gram powd Take 3 g by mouth once daily. Mixed with water. Sennosides (SENOKOT EXTRA STRENGTH) 17.2 mg tab Take 1 tablet by mouth daily with lunch AND 2 tablets daily at bedtime. lactobacillus comb no.10 (PROBIOTIC) 20 billion cell cap Take 1 capsule by mouth daily at bedtime. fexofenadine (MUCINEX ALLERGY) 180 mg tablet Take 180 mg by mouth once daily. fluticasone (FLONASE) 50 mcg/actuation nasal spray Use 2 Sprays in each nostril once daily. Rinse mouth after use. ACETAMINOPHEN (TYLENOL ARTHRITIS ORAL) Take by mouth. FAMILY HISTORY Problem Relation Age of Onset Hypertension Mother Osteoporosis Mother Thyroid Mother Alcohol/Drug Father alcoholic cirrhosis Breast Cancer Other maternal cousin Coronary Artery Disease Brother of [place] at 54. Social History Tobacco Use Smoking status: Former Packs/day: 1.00 Years: 23.00 Additional pack years: 0.00 Total pack years: 23.00 Types: Cigarettes Quit date: 03/04/1979 Years since quittin.5 Smokeless tobacco: Never Vaping Use Vaping Use: Never used Substance Use Topics Alcohol use: No Drug use: No BP 152/82 Pulse 77 Resp 14 Wt 64 kg (141 lb) SpO2 97% BMI 24.20 kg/m Physical Exam Vitals reviewed. Constitutional: Appearance: Normal appearance. Skin: Neurological: Mental Status: She is alert. Psychiatric: Mood and Affect: Mood normal. Shave Biopsy Procedure Note Location:left, upper back Anesthesia: Lidocaine 2% with epinephrine without added sodium bicarbonate Procedure Details Patient informed of the risks (including bleeding and infection) and benefits of the procedure and Verbal informed consent obtained. The lesion and surrounding area were given a sterile prep using alcohol and draped in the usual sterile fashion. A dermablade was used to shave an area of skin approximately 0.75 cm by 0.75 cm. Hemostasis achieved with silver nitrate stick. Antibiotic ointment and a sterile dressing applied. The specimen was sent for pathologic examination. The patient tolerated the procedure well. Complications: none. ASSESSMENT/PLAN: 1. Skin lesion of back - ICD9: 709.9, ICD10: L98.9 (primary diagnosis) Lesion of uncertain etiology, becoming larger and painful - SURGICAL PATHOLOGY Wound care instructions reviewed, see patient instructions 2. Changing skin lesion - ICD9: 709.9, ICD10: L98.9 As above - SURGICAL PATHOLOGY Prescription instructions reviewed with patient as applicable. Potential red flag symptoms discussed with the patient. Reviewed appropriate action plan to take if red flag symptoms occur. Patient agreeable to treatment plan. Xuan Brandon APRN.NICOLE documented in this encounterS[facility]-22-2024 Instructions* Patient Instructions* Xuan Brandon APRN.NICOLE - 09/23/2023 2:46 PM EDT SHAVE BIOPSY WOUND CARE INSTRUCTIONS ? Do not get the wound wet for 24 hours after the procedure ? Remove the bandage 24 hours after the procedure ? Gently cleanse the area with mild soap and water ? Apply a small amount of Vaseline or Aquaphor to the area. Do not use any other topical ointment or cream unless instructed. ? Cover the area with a band-aid or non stick gauze and tape ? Continue this wound care once a day until the site is completely healed ? It is advised that you avoid any strenuous activities that may affect the surgical site for 2 weeks ? If the area becomes red, swollen, and painful or there is a noticeable amount of discharge or oozing please call [phone] documented in this encounterScci [facility] [place]07-10-2024 History of Present illness Narrative* Xuan Brandon APRN.NICOLE - 09/11/2023 2:39 PM EDT CC: Patient presents with: Follow Up: 4 month follow up HPI Leonel Andre is a 78 year old female who presents today for above. HTN-Medication changes:No Taking all medications as prescribed: Yes Side effects: No Home BP's: No Denies: headache, chest pain, palpitations, dyspnea, and peripheral edema. Last 3 Encounter BP Readings: Date: BP: 09/11/2023 137/78 05/08/2023 126/70 03/06/2023 142/72 Urge incontinence: worsening. She has pessary but not working very well any longer. Wondering aboutpossible bladder surgery. Review of Systems See HPI PAST MEDICAL HISTORY Diagnosis Date Allergic rhinitis, cause unspecified 11/08/2004 Carcinoma of kidney, renal cell 10/27/2011 left Degeneration of intervertebral disc, site unspecified 11/08/2004 Depressive disorder, not elsewhere classified 11/08/2004 Diaphragmatic hernia without mention of obstruction or gangrene 11/08/2004 Diarrhea 11/08/2004 Esophageal reflux 11/08/2004 Herpes zoster without complication 09/08/2020 Left leg Hypoglycemia, unspecified 11/08/2004 hypoglycemic events Internal hemorrhoids without mention of complication 11/08/2004 Lumbago 11/08/2004 Mass of right kidney 06/19/2021 Need for prophylactic hormone replacement therapy (postmenopausal) 11/08/2004 Osteoarthritis Osteoporosis 12/23/2014 Panic disorder without agoraphobia 11/08/2004 Persistent disorder of initiating or maintaining sleep 06/29/2010 PMH - PAST MEDICAL HISTORY OF 2009 Collapsed Arches in Feet Postmenopausal atrophic vaginitis 11/08/2004 Scoliosis 08/29/2011 Unequal leg length (acquired) 01/21/2006 Unspecified essential hypertension 11/08/2004 Urge incontinence 11/28/2011 Urinary frequency 06/29/2010 Uterovaginal prolapse 10/01/2013 PAST SURGICAL HISTORY Procedure Laterality Date ARTHRP KNE CONDYLE&PLATU MEDIAL&LAT COMPARTMENTS Bilateral 02/21/2012 Knee replacement, total, Bilateral CHOLECYSTECTOMY 1981 open COLONOSCOPY FLX DX W/COLLJ SPEC WHEN PFRMD 06/09/2004 Colonoscopy COLONOSCOPY FLX DX W/COLLJ SPEC WHEN PFRMD 10/08/2016 Colonoscopy DILATION & CURETTAGE DX&/THER NONOBSTETRIC 1976 x 2 ESOPHAGOGASTRODUODENOSCOPY TRANSORAL DIAGNOSTIC 11/06/2012 EGD ESOPHAGOGASTRODUODENOSCOPY TRANSORAL DIAGNOSTIC 07/10/2013 EGD ESOPHAGOGASTRODUODENOSCOPY TRANSORAL DIAGNOSTIC 10/08/2016 EGD LAPAROSCOPY PARTIAL NEPHRECTOMY Left 10/25/2011 Robotic left partial nephrectomy d/t renal cell carcinoma LIG/TRNSXJ FLP TUBE ABDL/VAG APPR UNI/BI 1975 Tubal ligation ALLERGIES Dust, Lexapro [Escitalopram Oxalate], Lisinopril, Mold, Nexium [Esomeprazole Magnesium], Nexium [Esomeprazole Magnesium], Ragweed, and Seasonal [Other] MEDICATIONS LORazepam (ATIVAN) 0.5 mg Take 1 tablet by mouth once daily as needed (anxiety) for up to 90 days. 3 months supply. losartan (COZAAR) 25 mg tablet Take 1 tablet by mouth two times a day. dilTIAZem CR (TAZTIA XT) 180 mg 24 hr capsule Take 2 capsules by mouth once daily. oxybutynin (DITROPAN) 5 mg tablet Take 1 tablet by mouth twice daily. omeprazole (PRILOSEC) 40 mg capsule Take 1 capsule by mouth once daily. Cholecalciferol, Vitamin D3, 50 mcg (2,000 unit) cap Take 1 capsule by mouth once daily. Prescribedby endocrinology (Dr. César Johnson) denosumab (PROLIA) 60 mg/mL Once every 6 months. Prescribed by endocrinology (Dr. César Johnson) Dextrin (EASY FIBER) 3 gram/3.5 gram powd Take 3 g by mouth once daily. Mixed with water. Sennosides (SENOKOT EXTRA STRENGTH) 17.2 mg tab Take 1 tablet by mouth daily with lunch AND 2 tablets daily at bedtime. lactobacillus comb no.10 (PROBIOTIC) 20 billion cell cap Take 1 capsule by mouth daily at bedtime. fexofenadine (MUCINEX ALLERGY) 180 mg tablet Take 180 mg by mouth once daily. fluticasone (FLONASE) 50 mcg/actuation nasal spray Use 2 Sprays in each nostril once daily. Rinse mouth after use. ACETAMINOPHEN (TYLENOL ARTHRITIS ORAL) Take by mouth. FAMILY HISTORY Problem Relation Age of Onset Hypertension Mother Osteoporosis Mother Thyroid Mother Alcohol/Drug Father alcoholic cirrhosis Breast Cancer Other maternal cousin Coronary Artery Disease Brother of [place] at 54. Social History Tobacco Use Smoking status: Former Packs/day: 1.00 Years: 23.00 Additional pack years: 0.00 Total pack years: 23.00 Types: Cigarettes Quit date: 03/04/1979 Years since quittin.5 Smokeless tobacco: Never Vaping Use Vaping Use: Never used Substance Use Topics Alcohol use: No Drug use: No BP (P) 137/78 (BP Site: Left Arm, BP Position: Sitting, BP Cuff Size: Regular Adult) Pulse (!) (P) 58 Resp 16 Wt 63.5 kg (140 lb) BMI 24.03 kg/m Physical Exam Vitals reviewed. Constitutional: Appearance: Normal appearance. Cardiovascular: Rate and Rhythm: Normal rate and regular rhythm. Pulmonary: Effort: Pulmonary effort is normal. Breath sounds: Normal breath sounds. Neurological: Mental Status: She is alert. Health maintenance reviewed with patient: Bone Density Screening due on 12/13/2016 Behavioral Health Screening Never done Covid-19 Vaccine( season) due on 07/05/2023 DTaP,Tdap,Td Vaccine(1 - Tdap) due on 03/06/2024 RSV Vaccine(1 - 1-dose 60+ series) due on 03/06/2024 Shingrix Vaccine(1 of 2) due on 03/06/2024 Influenza Vaccine(1) due on 11/03/2023 Annual PCP Team Chronic Disease Visit due on 05/07/2024 BP Controlled (<130/80) due on 05/07/2024 Diabetes Screening due on 04/12/2026 Advance Directive Discussion Completed Hepatitis C Screening Completed Pneumococcal Vaccine: 65+ Completed Mammogram Screening Discontinued Colorectal Cancer Screening Discontinued DATA REVIEWED: Most recent labs ASSESSMENT/PLAN: 1. Essential hypertension - ICD9: 401.9, ICD10: I10 (primary diagnosis) - Controlled - Continue current medications - Recommend home blood pressure monitoring, to bring results to next visit - Encouraged sodium restriction, DASH or Mediterranean diet - Recommend regular aerobic exercise - DILTIAZEM CR 180 MG CAP 2. Urge incontinence - ICD9: 788.31, ICD10: N39.41 Worsening. She has follow-up with her urologist scheduled in November, discuss bladder surgery at appointment 3. Osteoporosis, unspecified osteoporosis type, unspecified pathological fracture presence - ICD9: 733.00, ICD10: M81.0 - set up for BMD AP Spine and Hip Unilateral, last was in 2019 - Prolia injections per endocrinology - Reviewed the need for Calcium and Vitamin D supplements and weight bearing exercise as tolerated - DXA-AXIAL SKELETON - BD DXA TRABECULAR BONE SCORE (TBS) 4. Encounter for lipid screening for cardiovascular disease - ICD9: V77.91, V81.2, ICD10: Z13.220, Z13.6 - LIPID PANEL BASIC Prescription instructions reviewed with patient as applicable. Potential red flag symptoms discussed with the patient. Reviewed appropriate action plan to take if red flag symptoms occur. Patient agreeable to treatment plan. Xuan Brandon APRN.NICOLE documented in this encounterS[facility]07-[facility]-2024 Telephone encounter Note * Telephone Encounter - Claribel Cherry LPN - 09/06/2023 7:32 AM EDT Prescription Refill Information The patient has been identified by name and date of : Yes Caregiver verified no other encounters exist for this prescription request: Yes Caregiver confirmed with patient/requestor that no other refills are due, in the near future, with this provider at this time: Yes The last office visit in the department: 05/08/2023 Does the patient have a future office visit with this provider/department: Yes 09/11/23 Requested Prescriptions Pending Prescriptions Disp Refills LORazepam (ATIVAN) 0.5 mg 90 tablet 0 Sig: Take 1 tablet by mouth once daily as needed (anxiety) for up to 90 days. 3 months supply. Claribel Cherry LPN September 06, 2023 7:32 AM [facility] Miscellaneous Notes* Telephone Encounter - Claribel Cherry LPN - 09/06/2023 7:32 AM EDT Prescription Refill Information The patient has been identified by name and date of : Yes Caregiver verified no other encounters exist for this prescription request: Yes Caregiver confirmed with patient/requestor that no other refills are due, in the near future, with this provider at this time: Yes The last office visit in the department: 05/08/2023 Does the patient have a future office visit with this provider/department: Yes 09/11/23 Requested Prescriptions Pending Prescriptions Disp Refills LORazepam (ATIVAN) 0.5 mg 90 tablet 0 Sig: Take 1 tablet by mouth once daily as needed (anxiety) for up to 90 days. 3 months supply. Claribel Cherry LPN September 06, 2023 7:32 AM documented in this encounterScci Hospital [facility]05-06-2024 Telephone encounter Note * Telephone Encounter - Tamara Gaviria MA - 07/08/2023 12:09 PM EDT Patient has been identified by name and date of : Yes Patient phones for refill(s): Requested Prescriptions Pending Prescriptions Disp Refills losartan (COZAAR) 25 mg tablet 180 tablet 3 Sig: Take 1 tablet by mouth two times a day. Date of last office visit in primary care: 05/08/2023 Date of next office visit in primary care: 09/11/2023 Please advise. Thank you. Tamara Gaviria MA. [facility]-06-2024 Miscellaneous Notes* Telephone Encounter - Tamara Gaviria MA - 07/08/2023 12:09 PM EDT Patient has been identified by name and date of : Yes Patient phones for refill(s): Requested Prescriptions Pending Prescriptions Disp Refills losartan (COZAAR) 25 mg tablet 180 tablet 3 Sig: Take 1 tablet by mouth two times a day. Date of last office visit in primary care: 05/08/2023 Date of next office visit in primary care: 09/11/2023 Please advise. Thank you. Tamara Gaviria MA. documented in this encounterScci [facility]04-05-2024 Miscellaneous Notes* Telephone Encounter - César Dominguez MA - 06/07/2023 2:43 PM EDT Requested Prescriptions Pending Prescriptions Disp Refills LORazepam (ATIVAN) 0.5 mg 90 tablet 1 Sig: Take 1 tablet by mouth once daily as needed (anxiety) for up to 180 days. 3 months supply. Date of last office visit in primary care: 05/08/2023 Date of next office visit in primary care: 09/11/2023 Please advise. Thank you. César Dominguez MA. documented in this encounterScci [facility]03-06-2024 History of Present illness Narrative* Xuan Brandon, POTATO PEELER.SNUFF MAKER - 05/08/2023 3:12 PM EST CC Patient presents with: 2 month f/u: Blood pressure HPI Leonel Andre is a 78 year old female who presents to the office for blood pressure. Her visit today is for follow-up. Patient was last seen for this approximately 2 months ago, BP was higher than usual. Medication changes: No Taking all medications as prescribed: Yes Side effects: No Home BP's: No Denies: headache, chest pain, palpitations, dyspnea, and peripheral edema. Last 4 Encounter BP Readings: Date: BP: 05/08/2023 126/70 03/06/2023 142/72 10/24/2022 126/68 01/22/2022 138/80 Last 3 Encounter Wt Readings: Date: Wt: 05/08/2023 64 kg (141 lb) 03/06/2023 64.4 kg (142 lb) 10/24/2022 64.4 kg (142 lb) Urinary symptoms x 2 days. Associated symptoms: burning, urgency, frequency, and pressure Denies: backpain, hematuria, fever, chills, and flank pain Treatments: increasing her fluids Review of Systems See HPI PAST MEDICAL HISTORY Diagnosis Date Allergic rhinitis, cause unspecified 11/08/2004 Carcinoma of kidney, renal cell 10/27/2011 left Degeneration of intervertebral disc, site unspecified 11/08/2004 Depressive disorder, not elsewhere classified 11/08/2004 Diaphragmatic hernia without mention of obstruction or gangrene 11/08/2004 Diarrhea 11/08/2004 Esophageal reflux 11/08/2004 Herpes zoster without complication 09/08/2020 Left leg Hypoglycemia, unspecified 11/08/2004 hypoglycemic events Internal hemorrhoids without mention of complication 11/08/2004 Lumbago 11/08/2004 Mass of right kidney 06/19/2021 Need for prophylactic hormone replacement therapy (postmenopausal) 11/08/2004 Osteoarthritis Osteoporosis 12/23/2014 Panic disorder without agoraphobia 11/08/2004 Persistent disorder of initiating or maintaining sleep 06/29/2010 PMH - PAST MEDICAL HISTORY OF 2009 Collapsed Arches in Feet Postmenopausal atrophic vaginitis 11/08/2004 Scoliosis 08/29/2011 Unequal leg length (acquired) 01/21/2006 Unspecified essential hypertension 11/08/2004 Urge incontinence 11/28/2011 Urinary frequency 06/29/2010 Uterovaginal prolapse 10/01/2013 PAST SURGICAL HISTORY Procedure Laterality Date ARTHRP KNE CONDYLE&PLATU MEDIAL&LAT COMPARTMENTS Bilateral 02/21/2012 Knee replacement, total, Bilateral CHOLECYSTECTOMY 1981 open COLONOSCOPY FLX DX W/COLLJ SPEC WHEN PFRMD 06/09/2004 Colonoscopy COLONOSCOPY FLX DX W/COLLJ SPEC WHEN PFRMD 10/08/2016 Colonoscopy DILATION & CURETTAGE DX&/THER NONOBSTETRIC 1975 x 2 ESOPHAGOGASTRODUODENOSCOPY TRANSORAL DIAGNOSTIC 11/06/2012 EGD ESOPHAGOGASTRODUODENOSCOPY TRANSORAL DIAGNOSTIC 07/10/2013 EGD ESOPHAGOGASTRODUODENOSCOPY TRANSORAL DIAGNOSTIC 10/08/2016 EGD LAPAROSCOPY PARTIAL NEPHRECTOMY Left 10/25/2011 Robotic left partial nephrectomy d/t renal cell carcinoma LIG/TRNSXJ FLP TUBE ABDL/VAG APPR UNI/BI 1975 Tubal ligation ALLERGIES Dust, Lexapro [Escitalopram Oxalate], Lisinopril, Mold, Nexium [Esomeprazole Magnesium], Nexium [Esomeprazole Magnesium], Ragweed, and Seasonal [Other] MEDICATIONS LORazepam (ATIVAN) 0.5 mg Take 1 tablet by mouth once daily as needed (anxiety) for up to 180 days.3 months supply. dilTIAZem CR (TAZTIA XT) 180 mg 24 hr capsule Take 2 capsules by mouth once daily. oxybutynin (DITROPAN) 5 mg tablet Take 1 tablet by mouth twice daily. omeprazole (PRILOSEC) 40 mg capsule Take 1 capsule by mouth once daily. Cholecalciferol, Vitamin D3, 50 mcg (2,000 unit) cap Take 1 capsule by mouth once daily. Prescribedby endocrinology (Dr. César Johnson) losartan (COZAAR) 25 mg tablet Take 1 tablet by mouth twice daily. Dextrin (EASY FIBER) 3 gram/3.5 gram powd Take 3 g by mouth once daily. Mixed with water. Sennosides (SENOKOT EXTRA STRENGTH) 17.2 mg tab Take 1 tablet by mouth daily with lunch AND 2 tablets daily at bedtime. lactobacillus comb no.10 (PROBIOTIC) 20 billion cell cap Take 1 capsule by mouth daily at bedtime. fexofenadine (MUCINEX ALLERGY) 180 mg tablet Take 180 mg by mouth once daily. fluticasone (FLONASE) 50 mcg/actuation nasal spray Use 2 Sprays in each nostril once daily. Rinse mouth after use. ACETAMINOPHEN (TYLENOL ARTHRITIS ORAL) Take by mouth. denosumab (PROLIA) 60 mg/mL Once every 6 months. Prescribed by endocrinology (Dr. César Johnson) (Patient not taking: Reported on 05/08/2023) FAMILY HISTORY Problem Relation Age of Onset Hypertension Mother Osteoporosis Mother Thyroid Mother Alcohol/Drug Father alcoholic cirrhosis Breast Cancer Other maternal cousin Coronary Artery Disease Brother of [place] at 54. Social History Tobacco Use Smoking status: Former Packs/day: 1.00 Years: 23.00 Additional pack years: 0.00 Total pack years: 23.00 Types: Cigarettes Quit date: 03/04/1979 Years since quittin.2 Smokeless tobacco: Never Vaping Use Vaping Use: Never used Substance Use Topics Alcohol use: No Drug use: No BP 126/70 Pulse 63 Temp (!) 35.6 C (96 F) (Left Tympanic) Resp 16 Wt 64 kg (141 lb) SpO2 97% BMI 24.20 kg/m Physical Exam Vitals reviewed. Constitutional: Appearance: Normal appearance. Abdominal: Palpations: Abdomen is soft. Tenderness: There is no abdominal tenderness. There is no right CVA tenderness or left CVA tenderness. Skin: General: Skin is dry. Neurological: Mental Status: She is alert. Psychiatric: Mood and Affect: Mood and affect normal. Cognition and Memory: Cognition normal. DATA REVIEWED: Most recent labs ASSESSMENT/PLAN: 1. Essential hypertension - ICD9: 401.9, ICD10: I10 (primary diagnosis) - Controlled - Continue current medications - Recommend home blood pressure monitoring, to bring results to next visit - Encouraged sodium restriction, DASH or Mediterranean diet 2. Dysuria - ICD9: 788.1, ICD10: R30.0 - UA DIP, URINE (POC) showing only trace blood-lysed - send URINE CULTURE - will treat with antibiotics if appropriated based on culture results - follow-up for any worsening symptoms Prescription instructions reviewed with patient as applicable. Potential red flag symptoms discussed with the patient. Reviewed appropriate action plan to take if red flag symptoms occur. Patient agreeable to treatment plan Xuan Brandon APRN.CNP documented in this encounterS[facility]12-01-2023 History of Present illness Narrative* Rebecca Stacy MA - 02/01/2023 2:34 PM EST POPULATION HEALTH NAVIGATION OUTREACH Action/FYI Last Wellness exam 01/22/2022 Patient Identified by Name and : NO Outreach Outcome/Action Unable to reach patient: Left message Langharhart message sent Did you use a PCP flex slot to schedule this appointment? N/A Reason for Outreach Care Gap or Scheduling/Wellness visits Payer: Payor: [employer] MEDICARE / Plan: [employer] MED[employer]ARE PPO / Product Type: PPO / Care Gap Reviewed:: Annual Wellness visit Reminder: Reminder note to check Health Maintenance for items below Health Maintenance items due: Shingrix Vaccine(1 of 2) Never done RSV Vaccine(1 - 1-dose 60+ series) Never done DTaP,Tdap,Td Vaccine(1 - Tdap) due on 05/20/2007 Advance Directive Discussion due on 03/04/2022 Depression Assessment due on 03/04/2022 Influenza Vaccine(1) due on 11/02/2022 Covid-19 Vaccine(2022- season) due on 11/02/2022 Navigation Signature: Rebecca López MA February 01, 2023 2:35 PM documented in this encounterScci [facility]10-17-2023 Miscellaneous Notes* Telephone Encounter - Rebecca Rosado RN - 12/18/2022 4:35 PM EDT Patient reports she tested positive today on home covid test. Reports her symptoms: ALCANTAR, cough started last Saturday morning. Reports she was seen at [facility] yesterday and prescribed amoxicillin 875 mg for sinus infection. Advised patient today is day 5 and if interested in taking antiviral would need to start within 5 days of s/s starting. Patient states she is not interested in antiviral. Advised she can treat her s/s with OTC medications she would normally use for a cold virus, if needed. Advised patient to quarantine for 5 days from start of symptoms, and if after 5 days her symptoms have improved and she has no fever, without the use of fever reducing medications, she may come out of quarantine, but continue to wear a mask for 5 additional days around people. Advised to get plenty of fluids. Advised to ER if develops any serious symptoms such as CP or SOB. Patient agreeable. documented in this encounterScci Hospital [facility]10-09-2023 Miscellaneous Notes* Telephone Encounter - Madelaine Grifftihs LPN - 12/10/2022 10:01 AM EDT Patient has been identified by name and date of : Yes Patient phones for refill(s): Requested Prescriptions Pending Prescriptions Disp Refills LORazepam (ATIVAN) 0.5 mg 90 tablet 1 Sig: Take 1 tablet by mouth once daily as needed (anxiety) for up to 180 days. 3 months supply. Date of last office visit in primary care: 10/24/2022 No future appt scheduled. Last 2 Encounter Wt Readings: Date: Wt: 10/24/2022 64.4 kg (142 lb) 01/22/2022 64.9 kg (143 lb) Previous labs/tests for medication: Not applicable Please advise. Thank you. Madelaine Griffiths LPN * Telephone Encounter - Madelaine Griffiths LPN - 12/10/2022 9:59 AM EDT Patient has been identified by name and date of : Yes, Patient phones for refill(s): Requested Prescriptions Pending Prescriptions Disp Refills LORazepam (ATIVAN) 0.5 mg 90 tablet 1 Sig: Take 1 tablet by mouth once daily as needed (anxiety) for up to 180 days. 3 months supply. Date of last office visit in primary care: 10/24/2022 Last 2 Encounter Wt Readings: Date: Wt: 10/24/2022 64.4 kg (142 lb) 01/22/2022 64.9 kg (143 lb) Previous labs/tests for medication: Not applicable Please advise. Thank you. Madelaine Griffiths LPN documented in this encounterScci Hospital [facility]09-19-2023 Miscellaneous Notes* Telephone Encounter - Madelaine Griffiths LPN - 11/20/2022 4:13 PM EDT TC to Peg, she has already had the first Prolidase injection. Let her know that I have faxed last 2 bone density reports, 12/24/2019 & 12/13/[address] César Johnson, she has access to [facility] and will be able to see what infusion Patient had in past. Peg, reports Dr. César Johnson is working on getting injection approved. Madelaine Griffiths LPN * Telephone Encounter - Tessy Bynum LPN - 11/20/2022 3:21 PM EDT Pt called in and she reports she saw Dr. César Johnson [facility] and they want to put pt on Prolidase. This is very expensive and pt is asking for the following: She contacted her insurance and they instructed her to get copies of the last couple bone densitiestesting she has had done and any medications used. After her last Bone Density test pt reports she was sent to [facility] by Dr. Baeza to have a medication given IV. She does not remember what the medication name was. She will need this to also sent to Dr. Johnson. She is requesting this all be mailed toher and she will contact Dr. Johnson to do a letter to her insurance to try get the medication at a different tier. Please advise pt. Tessy Bynum LPN documented in this encounterScci Hospital [facility]09-15-2023 Miscellaneous Notes* Telephone Encounter - Claribel Cherry LPN - 11/16/2022 12:50 PM EDT Last office visit: 10/24/22 Next appointment scheduled: No future appointments scheduled at this time. Patient phones requesting refills as follows: Requested Prescriptions Pending Prescriptions Disp Refills oxybutynin (DITROPAN) 5 mg tablet 180 tablet 3 Sig: Take 1 tablet by mouth twice daily. omeprazole (PRILOSEC) 40 mg capsule 90 capsule 3 Sig: Take 1 capsule by mouth once daily. Please review and advise. Claribel Cherry LPN documented in this encounterScci Hospital [facility]08-28-2023 Miscellaneous Notes* Telephone Encounter - Madelaine Griffiths LPN - 10/29/2022 4:20 PM EDT Peg notified of results, reports back pain has resolved, no other s/s, Patient is going to finish ATB d/t only having 1 1/2 days left of the ATB. Madelaine Griffiths LPN * Telephone Encounter - Hannah Hopkins Cma - 10/29/2022 1:30 PM EDT No answer and VM not set up- will need to try back later Hannah Hopkins Cma * Telephone Encounter - Hannah Hopkins Cma - 10/29/2022 1:29 PM EDT ----- Message from Xuan Nichole APRN.CNP sent at 10/29/2022 1:02 PM EDT ----- Urine culture was negative for infection, how is patient feeling? Xuan Nichole APRN.CNP documented in this encounterScci Hospital [facility]ima08-23-2023 History of Present illness Narrative* Xuan Nichole APRN.CNP - 10/24/2022 3:46 PM EDT CC: Patient presents with: UTI HPI Leonel Andre is a 77 year old female who presents with complaint of possible UTI. These symptoms have been present for 7 days. Associated symptoms: burning, pressure, tired, achy Denies: foul smelling urine, backpain, and hematuria Treatments: increasing her fluids The ROS was otherwise negative. PMH, Medications, labs, allergies, and recent past visits with PCP were reviewed and updated as able. PHYSICAL EXAM: BP 162/73 Pulse 61 Resp 18 Wt 64.4 kg (142 lb) BMI 23.92 kg/m General: Well appearing and alert CV: Regular rate and rhythm without obvious murmur Lungs: clear to auscultation bilaterally Back: no CVA tenderness Abdomen: soft, nontender, nondistended DATA REVIEWED: Most recent labs ASSESSMENT/PLAN: 1. Urinary tract infection without hematuria, site unspecified - ICD9: 599.0, ICD10: N39.0 - UA DIP, URINE (POC) positive for trace amount of blood - send URINE CULTURE - start treatment with Macrobid, see orders - follow-up 2-3 days if no improvement or sooner if worsening Prescription instructions reviewed with patient as applicable. Potential red flag symptoms discussed with the patient. Reviewed appropriate action plan to take if red flag symptoms occur. Patient agreeable to treatment plan. Xuan Nichole APRN.CNP documented in this encounterScci Hospital [facility]ima08-22-2023 Miscellaneous Notes* Telephone Encounter - César Dominguez Ma - 10/23/2022 9:21 AM EDT Patient notified, verbalized understanding. Patient states that she believes she may have a UTI. Unable to come to an appointment today due to transportation issues. Scheduled for tomorrow. Advised patient at that visit we can set up Medicare Wellness for January. * Telephone Encounter - Xuan Nichole APRN.CNP - 10/23/2022 7:38 AM EDT Vitamin D normal. Calcium is almost back to normal. Patient is overdue for routine follow-up in theoffice Xuan Nichole APRN.CNP documented in this encounterScci Hospital [facility]ima07-24-2023 History of Present illness Narrative* Berta Jauregui MA - 09/24/2022 10:32 AM EDT POPULATION HEALTH NAVIGATION OUTREACH Action/FYI Unable to lm, mychart sent to pt to schedule wellness due after 01/23/2023, no CG over 77 Patient Identified by Name and : NO Outreach Outcome/Action Unable to reach patient: Phone number not valid / voicemail full MyChart message sent Did you use a PCP flex slot to schedule this appointment? N/A Reason for Outreach Care Gap or Scheduling/Wellness visits Payer: Payor: [employer] MEDICARE / Plan: [employer] MEDICARE PPO / Product Type: PPO / Care Gap Reviewed:: Annual Wellness visit Reminder: Reminder note to check Health Maintenance for items below Health Maintenance items due: BP CONTROLLED (<130/80) Never done ADVANCE DIRECTIVE DISCUSSION due on 03/04/2022 DEPRESSION ASSESSMENT due on 03/04/2022 COVID-19 VACCINE(6 - Pfizer series) due on 05/27/2022 Navigation Signature: Berta Jauregui MA September 24, 2022 10:34 AM documented in this encounterScci Hospital [facility]04-10-2023 Miscellaneous Notes* Telephone Encounter - César Dominguez Ma - 06/11/2022 11:43 AM EDT ADAM: 01/22/2022 Last refill: 07/19/2021 QTY: 180 Refills: 3 documented in this encounterScci Hospital [facility]03-26-2023 Miscellaneous Notes* Telephone Encounter - Femi Baeza MD - 05/27/2022 3:51 PM EDT This patient gave consent to this Medical Advice Message and is aware that it may result in a bill to their insurance, as well as the possibility of receiving a bill for a copay and/or deductible. They are an established patient, but are not seeking information exclusively about a problem treated during an in person or video visit in the last seven days. I did not recommend an in person or video visit within seven days of my reply. See the [place] message reply for my assessment and plan. I spent a total of 5 minutes minutes reviewing the patient's prior medical records and current request for medical advice, prescribing medications or ordering tests (if applicable), replying to the patient, and documenting the encounter. documented in this encounterScci Hospital [facility]ima03-22-[address] Andrews [facility] May 23, 2022 9:07pm Note Date/Time May 23, 2022 6:5 0pm [facility] Medical Records Department [address] [place] [address] Emergency Department Summary 05/23/22 MR#: [id number] Acct: [id number] Name: LEONEL ANDRE Rep #:[id number] 3 : 1945 77 From: Calvin Andrews MD PCP: Dr. Femi Baeza MD Status:R EG ER Location: ED HPI History of Present Illness Chief Complaint: Lower Extremity Injury Detail of Chief Complaint: Right lower back, buttocks and lower extremity pain distribution of L3 IV n Informant: patient Onset/Context/Timing Onset: Today (They complains of numbness and altered sensation right leg) and Month(s) (Intermittent radicular pain for months.) Context: Sudden Onset Chronic pain exacerbated by: Nothing Injury: other (No of injury) Timing: Continuous Quality: - (Tingling/paresthesia with pain) Location: - (L3/L4 radiculopathy right) Current Severity: Mild Maximum Severity: Moderate Associated Symptoms Associated Symptoms: Numbness, Tingling and Radiation to Right Leg; Negative forRadiation to Left Leg, Fever, Abdominal Pain, Dysuria, Unable to Ambulate, Unable to Transfer, Urinary Retention, Urinary Incontinence, Constipation or Fecal Incontinence Narrative Narrative: Patient is a 77-year-old woman whose had intermittent pain suggestive of a L3 orL4 radiculopathy. She presents today because of tingling numbness in the L3 distribution. She denies bowel bladder dysfunction. Denies saddle paresthesia or anesthesia. Denies foot drop. She denies buckling of her knees going up or down steps. She complains of her leg not feeling right. She denies fever, chills night sweats. She is had no recent surgical proceduresor dental procedures. She denies any history of trauma. Prior similar symptoms: Yes (Radicular pain not the numbness and tingling as previously described) Recent Illness/Hospitalization: No PFSH PFSH Medical History Bladder prolapse GERD (gastroesophageal reflux disease) HTN (hypertension) Hx of renal cell carcinoma Hypoglycemia Lumbar radiculopathy Osteoporosis Scoliosis Home Medications alendronate 70 mg tablet 70 mg PO Q7D@0700 12/26/15 [History Last Taken Unknown] aspirin 81 mg chewable tablet 81 mg PO DAILY 12/26/15 [History Last Taken Unknown] cholecalciferol (vitamin D3) 25 mcg (1,000 unit) tablet (Vitamin D3) 1,000 unit PO DAILY 12/26/15 [History Last Taken Unknown] hydrochlorothiazide 25 mg tablet 25 mg PO DAILY 12/26/15 [History Last Taken Unknown] losartan 25 mg tablet 25 mg PO DAILY 12/26/15 [History Last Taken Unknown] yvehwaos-wtg-yranj acid 0.4 mg-lycopene 300 mcg-lutein 250 mcg tablet (Centrum Silver) 1 ea PO DAILY 12/26/15 [History Last Taken Unknown] oxybutynin chloride 5 mg tablet 5 mg PO BID 12/26/15 [History Last Taken Unknown] magnesium oxide 400 mg (241.3 mg magnesium) tablet 400 mg PO BIDCM #14 tabs 06/18/17 [Rx Last Taken Unknown] polyethylene glycol 3350 17 gram oral powder packet 17 gm PO DAILY #30 packets 06/18/17 [Rx Last Taken Unknown] potassium chloride 20 mEq tablet,extended release(part/cryst) 40 meq PO DAILY #30 tabs 06/18/17 [Rx Last Taken Unknown] cephalexin 500 mg capsule 500 mg PO BID 10 days #20 caps 09/08/20 [Rx Last Taken Unknown] diltiazem HCl 180 mg capsule,24 hr,extended release 360 mg PO DAILY 09/08/20 [History Last Taken Unknown] famciclovir 500 mg tablet 500 mg PO Q8H 09/08/20 [History Last Taken Unknown] fexofenadine 180 mg tablet 180 mg PO DAILY 09/08/20 [History Last Taken Unknown] lorazepam 0.5 mg tablet 0.5 mg PO DAILY 09/08/20 [History Last Taken Unknown] omeprazole 40 mg capsule,delayed release 40 mg PO DAILY 09/08/20 [History Last Taken Unknown] cephalexin 500 mg capsule 500 mg PO Q12 #7 caps 06/01/21 [Rx Last Taken Unknown] dexamethasone 1.5 mg (21 tabs) tablets in a dose pack 1.5 mg PO DAILY #21 tabs 05/23/22 [Rx Last Taken Unknown] Allergy/AdvReac Type Severity Reaction Status Date / Time lisinopril Allergy Swelling Verified 05/23/22 14:05 esomeprazole [From Nexium] AdvReac Nausea/Vom/ Verified 05/23/22 14:05 Diarrhea Surgical History H/O partial nephrectomy Social History Smoking Status: Former smoker ROS ROS ED Constitutional Constitutional ED: Denies chills, fever(s), subjective or sweats Eyes Eyes: Denies blurry vision, change in vision or diplopia ENT ENT ED: Denies ear pain, rhinorrhea or sore throat Cardiovascular Cardiovascular: Denies chest pain, orthopnea, palpitations, paroxysmal nocturnaldyspnea or racing heartbeat Respiratory/Chest Respiratory/Chest: Denies dyspnea, dyspnea on exertion, orthopnea or paroxysmal nocturnal dyspnea Gastrointestinal Gastrointestinal: Denies abdominal pain, constipation, diarrhea, melena, nausea or vomiting Genitourinary Genitourinary ED: Denies dysuria, hematuria or urinary frequency Musculoskeletal Musculoskeletal: Reports back pain and other Details: L3 radiculopathy ; Denies arthralgias, myalgias or neck pain Integumentary Denies Abrasions or rash Neurologic Neurologic: Reports paresthesias; Denies headache(s) or weakness Endocrine Endocrinology: Denies cold intolerance or heat intolerance Hematologic/Lymphatic Hematologic/Lymphatic: Denies easy bleeding or easy bruising Allergic/Immunologic Allergic/Immunologic ED: Denies mouth swelling or tongue swelling EXAM Physical Exam Const Vital Signs: 05/23/22 14:05 05/23/22 18:30 Temperature 98 F Temperature Source Temporal Pulse Rate 77 Respiratory Rate 14 18 Blood Pressure 144/72 H Blood Pressure Mean 96 Pulse Ox 99 95 Oxygen Delivery Method Room Air Positive well nourished and well developed General Appearance ED: well developed; Negative for NAD or pallor HEENT Reports moist mucous membranes HEENT Narrative: It is atraumatic normocephalic. Ears normal. Nares patent. Posterior pharynx is normal. Eyes PERRL and EOMs intact bilaterally General Eye ED: Negative for pale conjunctiva or scleral icterus Neck no lymphadenopathy, supple and no JVD Resp normal respiratory effort and clear to auscultation bilaterally Cardio regular rate, regular rhythm, S1 normal heart sound, S2 normal heart sound and no murmurs GI normal to inspection, nondistended, normoactive bowel sounds, soft to palpation,non-tender, non-distended and no masses Back/Spine normal to inspection and no thoracic nor lumbar tenderness Back/Spine Narrative: Straight leg test is negative right and left. Absent patellar reflex on the right. Patellar reflexes 2+ on the left. Ankle reflexes 2+ bilateral. EHL is intact. Patient has altered sensation L3 dermatome. She is able to walk on herheels and toes with some difficulty. She is able to perform a 1 legged squat right and left. She has normal buttock sensation. Femoral stretch test was notperformed. Extremity normal to inspection and no clubbing, cyanosis or edema Extremity Narrative: DP and PT pulse are palpable. Neuro oriented x3 and No no sensory deficits noted Neuro Narrative: Altered sensation L3 dermatome Sensorium / Orientation: alert Motor Exam: strength 5/5 throughout Deep Tendon Reflexes: Rt Patellar (L4): 0, Lt Patellar (L4): 2+, Rt Ankle (S1): 2+ and Lt Ankle (S1): 2+ Deep Tendon Reflexes Back: Rt Patellar (L4): 0, Lt Patellar (L4): 2+, Rt Ankle (S1): 2+ and Lt Ankle (S1): 2+ Plantar Reflex: Downgoing: bilateral Psych mental status grossly normal Skin no rashes or lesions noted and no wounds General Skin Exam: Negative for jaundice or pallor MDM MDM MDM Narrative Medical decision making narrative: Suspect patient may have an L3 or L4 herniated disc. Also may be atypical presentation for neoplasm. MRI was obtained without contrast and she has not had prior back surgery. Patient was medicated with IV opiates for her discomfort. Awaiting MRI and MRI results. History & Record Review Additional record(s) reviewed:: [facility] Prior outpatient record (Visits for malaise and electrolyte abnormality), Prior ED visit and Prior labs Radiography Diagnostic Testing: Clinical Impression(s) from Imaging Studies Lumbar Spine MRI 05/23/22 19:07 IMPRESSION: Moderate levoscoliosis detailed above. Moderate left neural foraminal stenosis at L4-5 and L5-S1. Moderate right neural foraminal stenosis at L3-4. No spinal canal stenosis. Electronically Signed: Clovis May MD at 20:19 EDT , MRI report was read. Patient has disc bulge L2 to through S1. There is also moderate left neuroforaminal stenosis at L4-5 and L5-S1. There is moderate right neuroforaminal stenosis at L3-4 which would explain her symptoms. Case was discussed with Dr. Wooten the spine surgeon. Agrees with plan of steroids and follow-up with him. Discharge Plan Triage Chief Complaint: Lower Extremity Injury ED Provider: Calvin Andrews Dx/Rx/DC Orders Clinical Impression: Lumbosacral radiculopathy at L3, Benign essential hypertension, GERD (gastroesophageal reflux disease), Neural foraminal stenosis of lumbar spine, Bulging of lumbar intervertebral disc without myelopathy Instructions: Understanding Lumbar Radiculopathy Prescriptions: New dexamethasone 1.5 mg (21 tabs) tablets,dose pack 1.5 mg PO DAILY Qty: 21 0RF No Action alendronate 70 MG tablet 70 mg PO Q7D@0700 losartan 25 MG tablet 25 mg PO DAILY aspirin 81 MG tablet,chewable 81 mg PO DAILY hydrochlorothiazide 25 MG tablet 25 mg PO DAILY oxybutynin chloride 5 MG tablet 5 mg PO BID jpzytyhi-wym-RB-lycopen-lutein [Centrum Silver] 1 EACH tablet 1 ea PO DAILY cholecalciferol (vitamin D3) [Vitamin D3] 1,000 UNIT tablet 1,000 unit PO DAILY magnesium oxide 400 MG tablet 400 mg PO BIDCM Qty: 14 0RF polyethylene glycol 3350 17 GM packet 17 gm PO DAILY Qty: 30 0RF potassium chloride 20 MEQ tablet 40 meq PO DAILY Qty: 30 0RF famciclovir 500 mg Tablet 500 mg PO Q8H diltiazem HCl 180 mg capsule,extended release 24 hr 360 mg PO DAILY fexofenadine 180 mg Tablet 180 mg PO DAILY omeprazole 40 mg Capsule,Delayed Release(Dr/Ec) 40 mg PO DAILY lorazepam 0.5 mg tablet 0.5 mg PO DAILY cephalexin 500 mg capsule 500 mg PO BID 10 Days Qty: 20 0RF cephalexin 500 mg capsule 500 mg PO Q12 Qty: 7 0RF Primary Care Provider: Femi Baeza Referrals: Femi Baeza MD [Primary Care Provider] - Disposition Disposition: Home, Self Care What to do if you have Problems For any increased pain, shortness of breath, bleeding, nausea or vomiting, chestpain, or any unexpected problems, contact your Primary Care Provider. Call [facility] ([phone]) or report to the closest Emergency Room. Call 911 if necessary. 05/23/222106 <Electronically signed by Calvin Andrews MD> Cosigner Signature (if applicable): CC: Dr. Femi Beaza MD ~ Signed [facility] Work Phone: [phone]) 759-203803-14-2023 Miscellaneous Notes* Telephone Encounter - Madelaine Griffiths LPN - 05/15/2022 8:25 AM EDT Referral info faxed to [facility] Endo. Madelaine Griffiths LPN * Telephone Encounter - Xuan Nichole APRN.CNP - 05/15/2022 7:46 AM EDT Please fax referral to endocrinology at [facility] Xuan Nichole APRN.CNP documented in this encounterScci Hospital [facility]ima01-09-2023 Miscellaneous Notes* Telephone Encounter - Xuan Nichole APRN.CNP - 03/12/2022 4:21 PM EST PDMP website checked and validated. All prescriptions have been APPROPRIATELY filled. No suspiciousactivity was identified. 03/12/2022 by Xuan Nichole APRN.CNP * Telephone Encounter - César Dominguez Ma - 03/12/2022 8:55 AM EST ADAM: 01/22/2022 Last refill: 09/13/2021 QTY: 90 Refills: 1 Patient's request for medication is as follows: Requested Prescriptions Pending Prescriptions Disp Refills LORazepam (ATIVAN) 0.5 mg 90 tablet 1 Sig: Take 1 tablet by mouth once daily as needed (anxiety) for up to 180 days. 3 months supply. Please approve the above prescription(s) to electronically send to pharmacy. César Dominguez Ma documented in this encounterScci Hospital Lima12-13-2022 Miscellaneous Notes* Telephone Encounter - Amie Atkins Ma - 02/13/2022 9:05 AM EST Patient notified and voices understanding * Telephone Encounter - César Dominguez Ma - 2022 1:59 PM EST Left message to call office. 2022 1:59 PM * Telephone Encounter - Xuan Nichole APRN.CNP - 2022 1:15 PM EST Please call patient and let her know what Dr. Johnson said. She will need to increase the Vitamin D 50,000 units to twice a week. I will send new dosing to her pharmacy. Recheck labs in 3 months Xuan Nichole APRN.CNP * Telephone Encounter - Migdalia Metz RN - 2022 1:11 PM EST Called and spoke with Aliza from [place]. Aliza states that they have current office notes and labs and that is what Dr. Johnson recommended. Please review and advise, Migdalia Metz RN * Telephone Encounter - Xuan Nichole APRN.CNP - 2022 12:47 PM EST Last Vitamin D was normal, please fax this result to Dr. Johnson's office Xuan Nichole APRN.CNP * Telephone Encounter - Migdalia Metz RN - 2022 11:39 AM EST Aliza from [facility] calls and states that Dr. Johnson has looked over patient's office visit and labs. Dr. Johnson thinks the reason for patient's problems is that Vitamin D level is low.Dr. Johnson recommends treating patient for this and the repeat labs. If problem continues refax referral. Please review and advise, Migdalia Metz RN documented in this encounterScci Hospital Lima11-29-2022 Miscellaneous Notes* Telephone Encounter - Yareli Lentz LPN - 01/30/2022 11:09 AM EST Aliza with [facility] calls to report she only received a couple of pages of fax for pt's referral. Re-faxed referral, OV notes, recent labs, and med list to: [phone] as requested. Yareli Lentz LPN documented in this encounterScci Hospital Lima11-21-2022 Instructions* Patient Instructions* Xuan Nichole APRN.CNP - 01/22/2022 1:30 PM EST Screening schedule The following prevention plan is recommended: COLORECTAL CANCER SCREENING due on 10/08/2021 WHAT YOU CAN DO TO PREVENT FALLS Many falls can be prevented. By making some changes, you can lower your chances of falling. Four things YOU can do to prevent falls for you* and your caregiver 1. Begin a regular exercise program Exercise is one of the most important ways to lower your chances of falling. It makes you stronger and helps you feel better. Exercises that improve balance and coordination (like Larry Chi) are the most helpful. Lack of exercise leads to weakness and increases your chances of falling. Ask your doctor or health care provider about the best type of exercise program for you. 2. Have your health care provider review your medicines Have your doctor or pharmacist review all the medicines you take, even ympb-vns-bgekpzd medicines. As you get older, the way medicines work in your body can change. Some medicines, or combinations of medicines, can make you sleepy or dizzy andcan cause you to fall. 3. Have your vision checked Have your eyes checked by an eye doctor at least once a year. You may be wearing the wrong glasses or have a condition like glaucoma or cataracts that limits your vision. Poor vision can increase your chances of falling. 4. Make your home safer About half of all falls happen at home. To make your home safer: Remove things you can trip over (like papers, books, clothes, and shoes) from stairs and places where you walk. Remove small throw rugs or use double-sided tape to keep the rugs from slipping. Keep items you use often in cabinets you can reach easily without using a step stool. Have grab bars put in next to your toilet and in the tub or shower. Use non-slip mats in the bathtub and on shower floors. Improve the lighting in your home. As you get older, you need brighter lights to see well. Hang light-weight curtains or shades to reduce glare. Have handrails and lights put in on all staircases. Wear shoes both inside and outside the house. Avoid going barefoot or wearing slippers. For more information, contact: Centers for Disease Control and Prevention www.cdc.gov/injury * This information may not apply if you have certain medical conditions. documented in this encounterScci Hospital [facility]ima11-21-2022 History of Present illness Narrative* Xuan Nichole APRN.CNP - 01/22/2022 1:29 PM EST Leonel Andre is a 76 year old female here for a Medicare Subsequent Annual Wellness Visit Health Risk Assessment In general, health is: Good Concerns with tiredness, difficulties with sexual function, balance, teeth/dentures: Not at all [place] anxious, stressed, angry, irritable, lonely, isolated, or had thoughts of hurting themself: Not at all Has little interest or pleasure in doing things: Not at all Bothered by feeling down, depressed, or hopeless: Not at all Needs help with grocery shopping, cooking, housework, bathing, grooming, dressing, eating, sitting or standing, walking, using the toilet, handling finances, taking medications, using the telephone, or driving: No except her sons help with her car, some meals, outside yard work, deep cleaning house Following safety precautions in the home environment and vehicle: removed throw rugs from floors, installed grab bars in the bathroom, handrails in stairwells, having adequate lighting, wearing seatbelt at all times?: Yes Smokes cigarettes, vapes, or chew tobacco: No Eats healthy foods including fruits, vegetables, whole grains, and fiber-rich foods: Nearly every day Number of days per week engages in exercise: exercise bike a few days a week up until her right hipand back started bothering her Average alcohol consumption: Never Current Providers Specialists: I have reviewed specialist-related care of the patient in the medical record. Current care team: Patient Care Team: Femi Baeza MD as PCP - General Outside specialists seen: orthopedics- [facility], pain management- [facility],urology- Dr. Negro, ophthalmology- Dr. Lewis Medical/Family history review Reviewed and updated problem list, medical/surgical/family/social history, medications, and allergies. Opioid use review Patient is not currently using opioids. Depression screening Depression Screening PHQ-2 Score PHQ-9 Score 01/22/2022 0 - Depression screening tool completed and reviewed. Based on score and interview, patient is not at risk for depression. Screening tool discussed with patient, and I recommended no further interventionat this time. Cognitive screening Mini Cog Score: 4 Cognitive screening reviewed and no further action needed (score 3-5) Functional Observation Was the patient's timed Up & Go test unsteady or ? 12 seconds? No Advance Care Planning End of Life planning discussed, including patient's advanced directive wishes: Yes Measurements BP 138/80 Pulse 77 Resp 18 Wt 143 lb (64.9kg) Visual acuity: follows with optometry/ophthalmology Hearing Evaluation: within normal limits ASSESSMENT/PLAN: 1. Medicare annual wellness visit, subsequent - ICD9: V70.0, ICD10: Z00.00 (primary diagnosis) The following prevention plan was discussed during the office visit and provided to the patient: - fall risk reduction - Counseled on healthy diet and regular exercise - Colorectal cancer screening recommended - screening declined at this time - Depression screening tool completed and reviewed with patient. Based on score and interview, patient is not at risk for depression and recommended no further intervention at this time. - Patient was counseled [id number] by myself (the billing provider) for the following immunizations and vaccine components, including side effects: Shingrix. Patient will check with insurance - follow-up for medicare annual exam in one year 2. Encounter for immunization - ICD9: V03.89, ICD10: Z23 - PFIZER-BIONTECH COVID-19 BIVALENT BOOSTER VACCINE, AGE 12+ YR 3. Hypercalcemia - ICD9: 275.42, ICD10: E83.52 Vitamin D normal. No calcium supplements. History of elevation HCTZ last year due to elevated calcium Evaluate further with: - CALCIUM IONIZED BLOOD - PTH INTACT BLD Xuan Nichole APRN.CNP documented in this encounterS[facility] History of Present illness Narrative* Katya Fay - 01/16/2022 1:18 PM EST POPULATION HEALTH NAVIGATION OUTREACH Action/I [facility]3][facility] Patient due for the following: Colorectal Cancer Screening Advance Directive discussion Left voicemail for patient to return call [employer] message sent Pt identified by name and : NO Outreach Outcome/Action Unable to reach patient: Left message [employer] message sent Did you use a PCP flex slot to schedule this appointment? N/A Reason for Outreach Care Gap or Scheduling/Wellness visits Payer: Payor: [facility] MEDICARE / Plan: [employer] MEDICARE PPO / Product Type: PPO / Care Gap Reviewed:: Colorectal Cancer Screening Reminder: Reminder note to check Health Maintenance for items below Health Maintenance items due: BP CONTROLLED (<130/80) Never done SHINGRIX VACCINE(1 of 2) Never done DTAP,TDAP,TD(1 - Tdap) due on 05/20/2007 ADVANCE DIRECTIVE DISCUSSION Never done DEPRESSION ASSESSMENT Never done COVID-19 VACCINE(5 - Booster for Pfizer series) due on 09/13/2021 COLORECTAL CANCER SCREENING due on 10/08/2021 Message Sent to Practice: No Navigation Signature: Katya Fay January 16, 2022 1:18 PM documented in this encounterS[facility]11-15-2022 Miscellaneous Notes* Telephone Encounter - Katya Fay - 01/16/2022 1:16 PM EST Opened in error documented in this encounterScci [facility]07-13-2022 Miscellaneous Notes* Telephone Encounter - Xuan Nichole APRN.CNP - 09/13/2021 11:20 AM EDT PDMP website checked and validated. All prescriptions have been APPROPRIATELY filled. No suspiciousactivity was identified. 09/13/2021 by Xuan Nichole APRN.CNP * Telephone Encounter - César Dominguez Ma - 09/13/2021 10:59 AM EDT ADAM: 07/19/2021 Last refill: 03/07/2021 QTY: 90 Refills: 1 Patient's request for medication is as follows: Pending Prescriptions Disp Refills LORAZEPAM 0.5 MG TABLET 90 tablet 1 Sig: Take 1 tablet by mouth once daily as needed (anxiety) for up to 180 days. 3 months supply. MARCK Class: C-IV [place]: No Please approve the above prescription(s) to electronically send to pharmacy. César Dominguez Ma documented in this encounterScci Hospital [facility]05-09-2022 Miscellaneous Notes* Telephone Encounter - Yesica Clark LPN - 07/10/2021 11:05 AM EDT rec'd fax from [facility] [place] completed 07/07/21and ordered by Dr. Negro a urologist of pt noting an increase of a renal mass. fyi to pcp. documented in this encounterScci Hospital [facility]04-21-2022 Miscellaneous Notes* Telephone Encounter - Nai Lopes RN - 06/22/2021 11:16 AM EDT Michelle from [facility] called and asked for us to fax over a copy of Pts Kidney/Bladder US. Faxed to # [phone]. documented in this encounterScci Hospital [facility]04-13-2022 History of Present illness Narrative* Femi Baeza MD - 06/14/2021 3:48 PM EDT This note was created using Afoundriater. Subjective Leonel Andre is a 76 year old female. She went to the [facility] for lower abdominal pain, dysuria, recurrent for months. She had a history of bladder surgery. There was also concern about anabdominal lump. ER evaluation was benign and she was treated for urinary tract infection. Her symptoms resolved, but only temporarily. Her hypertension was elevated of late. She was taking all her medications. Review of Systems Constitutional: Negative. Respiratory: Negative. Cardiovascular: Negative. Gastrointestinal: Negative for blood in stool, constipation, diarrhea, nausea and vomiting. See HPI. Genitourinary: Positive for decreased urine volume, difficulty urinating and dysuria. Negative for hematuria. Musculoskeletal: Positive for back pain. ACTIVE PROBLEM LIST Essential Hypertension Esophageal Reflux Vitamin D Deficiency Constipation Scoliosis Urge Incontinence History of Renal Cell Carcinoma Osteoporosis Anxiety Pain in Right Hip Radiculopathy, Lumbar Region Current Outpatient Medications Medication Sig LORazepam (ATIVAN) 0.5 mg Take 1 tablet by mouth once daily as needed (anxiety) for up to 180 days.3 months supply. oxybutynin (DITROPAN) 5 mg tablet Take 1 tablet by mouth twice daily. omeprazole (PRILOSEC) 40 mg capsule Take 1 capsule by mouth once daily. losartan (COZAAR) 25 mg tablet Take 1 tablet by mouth twice daily. dilTIAZem CR (TAZTIA XT) 180 mg 24 hr capsule Take 2 capsules by mouth once daily. Dextrin (EASY FIBER) 3 gram/3.5 gram powd Take 3 g by mouth once daily. Mixed with water. Sennosides (SENOKOT EXTRA STRENGTH) 17.2 mg tab Take 1 tablet by mouth daily with lunch AND 2 tablets daily at bedtime. Cholecalciferol, Vitamin D3, 25 mcg (1,000 unit) cap Take 1 capsule by mouth once daily. lactobacillus comb no.10 (PROBIOTIC) 20 billion cell cap Take 1 capsule by mouth daily at bedtime. fexofenadine (MUCINEX ALLERGY) 180 mg tablet Take 180 mg by mouth once daily. fluticasone (FLONASE) 50 mcg/actuation nasal spray Use 2 Sprays in each nostril once daily. Rinse mouth after use. ACETAMINOPHEN (TYLENOL ARTHRITIS ORAL) Take by mouth. No current facility-administered medications for this visit. Objective BP 134/60 (BP Site: Left Arm, BP Position: Sitting, BP Cuff Size: Large Adult) Pulse (!) 54 Temp 36.7 C (98.1 F) (Temporal Artery) Resp 18 Wt 64.9 kg (143 lb) BMI 24.09 kg/m Physical Exam Constitutional: General: She is not in acute distress. Appearance: She is not diaphoretic. Eyes: Conjunctiva/sclera: Conjunctivae normal. Cardiovascular: Rate and Rhythm: Regular rhythm. Bradycardia present. Heart sounds: No murmur heard. No gallop. Pulmonary: Effort: Pulmonary effort is normal. Breath sounds: Normal breath sounds. Abdominal: General: There is no distension. Palpations: Abdomen is soft. There is no mass. Tenderness: There is abdominal tenderness in the suprapubic area. There is no right CVA tenderness,left CVA tenderness, guarding or rebound. Musculoskeletal: Right lower leg: No edema. Left lower leg: No edema. Neurological: Mental Status: She is alert. Component Latest Ref Rng & Units 06/14/2021 GLUCOSE UA (POCT) Negative mg/dL Negative BILIRUBIN UA (POCT) Negative Negative KETONE UA (POCT) Negative mg/dL Negative SPECIFIC GRAVITY UA (POCT) 1.005 - 1.030 1.010 HEMOGLOBIN/BLOOD UA (POCT) Negative Trace-intact (A) PH UA (POCT) 4.5 - 8.0 6.5 PROTEIN UA (POCT) Negative mg/dL Negative UROBILINOGEN UA (POCT) Normal E.U./dL 0.2 NITRITE UA (POCT) Negative Negative LEUKOCYTES UA (POCT) Negative Negative COLOR UA (POCT) Yellow CLARITY UA (POCT) Clear Assessment and Plan 1. Lower abdominal pain - ICD9: 789.09, ICD10: R10.30 (primary diagnosis) Etiology unclear Differential Diagnosis includes Cystitis - US KIDNEY/BLADDER 2. Essential hypertension - ICD9: 401.9, ICD10: I10 - suboptimal control - Continue current medication(s) - Reviewed risks of HTN and principles of treatment - Goal of BP <130/80 3. Dysuria - ICD9: 788.1, ICD10: R30.0 recurrent - US KIDNEY/BLADDER - URINE CULTURE 4. Other microscopic hematuria - ICD9: 599.72, ICD10: R31.29 - US KIDNEY/BLADDER - URINE CULTURE 5. Vitamin D deficiency - ICD9: 268.9, ICD10: E55.9 - VITAMIN D 25 HYDROXY 6. Hypercalcemia - ICD9: 275.42, ICD10: E83.52 Recheck for next month. 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 10/2609/15/2012 Osteopenia 10/03/2011 12/03/2016 Urinary frequency 06/29/2010 06/22/2011 Persistent disorder of initiating or maintaining sleep 06/29/2010 05/28/2019 Osteoarthritis of knee 12/29/2009 2 Plantar fasciitis 06/20/2009 06/22/2011 Pain in joint, pelvic region and thigh 6 09/15/2012 Allergic rhinitis, cause unspecified 11/08/2004 01/21/2017 Degeneration of intervertebral disc, site unspec ified 11/08/2004 12/07/2013 Postmenopausal atrophic vaginitis 11/08/2004 05/28/2019 documented as of this encounter (statuses as of 06/15/2021) [facility] illness Narrative* Problem Noted Date Resolved Date Uterovaginal prolapse 10/01/2013 05/28/2019 Knee joint replacement by other means 03/19/2012 05/28/2019 Osteoarthrosis, unspecified whether generalized or localized, lower leg 02/13/2012 02/13/2012 Carcinoma of kidney, renal cell 10/27/2011 12/07/2013 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 10/2609/15/2012 Osteopenia 10/03/2011 12/03/2016 Urinary frequency 06/29/2010 06/22/2011 Persistent disorder of initiating or maintaining sleep 06/29/2010 05/28/2019 Osteoarthritis of knee 12/29/2009 2 Plantar fasciitis 06/20/2009 06/22/2011 Pain in joint, pelvic region and thigh 6 09/15/2012 Allergic rhinitis, cause unspecified 11/08/2004 01/21/2017 Degeneration of intervertebral disc, site unspec ified 11/08/2004 12/07/2013 Postmenopausal atrophic vaginitis 11/08/2004 05/28/2019 documented as of this encounter (statuses as of 06/20/2021) [facility] Narrative* Problem Noted Date Resolved Date Uterovaginal prolapse 10/01/2013 05/28/2019 Knee joint replacement by other means 03/19/2012 05/28/2019 Osteoarthrosis, unspecified whether generalized or localized, lower leg 02/13/2012 02/13/2012 Carcinoma of kidney, renal cell 10/27/2011 12/07/2013 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 10/2609/15/2012 Osteopenia 10/03/2011 12/03/2016 Urinary frequency 06/29/2010 06/22/2011 Persistent disorder of initiating or maintaining sleep 06/29/2010 05/28/2019 Osteoarthritis of knee 12/29/2009 2 Plantar fasciitis 06/20/2009 06/22/2011 Pain in joint, pelvic region and thigh 6 09/15/2012 Allergic rhinitis, cause unspecified 11/08/2004 01/21/2017 Degeneration of intervertebral disc, site unspec ified 11/08/2004 12/07/2013 Postmenopausal atrophic vaginitis 11/08/2004 05/28/2019 documented as of this encounter (statuses as of 06/22/2021) [facility] Narrative* Problem Noted Date Resolved Date Uterovaginal prolapse 10/01/2013 05/28/2019 Knee joint replacement by other means 03/19/2012 05/28/2019 Osteoarthrosis, unspecified whether generalized or localized, lower leg 02/13/2012 02/13/2012 Carcinoma of kidney, renal cell 10/27/2011 12/07/2013 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 10/2609/15/2012 Osteopenia 10/03/2011 12/03/2016 Urinary frequency 06/29/2010 06/22/2011 Persistent disorder of initiating or maintaining sleep 06/29/2010 05/28/2019 Osteoarthritis of knee 12/29/2009 2 Plantar fasciitis 06/20/2009 06/22/2011 Pain in joint, pelvic region and thigh 6 09/15/2012 Allergic rhinitis, cause unspecified 11/08/2004 01/21/2017 Degeneration of intervertebral disc, site unspec ified 11/08/2004 12/07/2013 Postmenopausal atrophic vaginitis 11/08/2004 05/28/2019 documented as of this encounter (statuses as of 07/12/2021) [facility] Narrative* Problem Noted Date Resolved Date Uterovaginal prolapse 10/01/2013 05/28/2019 Knee joint replacement by other means 03/19/2012 05/28/2019 Osteoarthrosis, unspecified whether generalized or localized, lower leg 02/13/2012 02/13/2012 Carcinoma of kidney, renal cell 10/27/2011 12/07/2013 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 10/2609/15/2012 Osteopenia 10/03/2011 12/03/2016 Urinary frequency 06/29/2010 06/22/2011 Persistent disorder of initiating or maintaining sleep 06/29/2010 05/28/2019 Osteoarthritis of knee 12/29/2009 2 Plantar fasciitis 06/20/2009 06/22/2011 Pain in joint, pelvic region and thigh 6 09/15/2012 Allergic rhinitis, cause unspecified 11/08/2004 01/21/2017 Degeneration of intervertebral disc, site unspec ified 11/08/2004 12/07/2013 Postmenopausal atrophic vaginitis 11/08/2004 05/28/2019 documented as of this encounter (statuses as of 09/13/2021) [facility] Narrative* Problem Noted Date Resolved Date Uterovaginal prolapse 10/01/2013 05/28/2019 Knee joint replacement by other means 03/19/2012 05/28/2019 Osteoarthrosis, unspecified whether generalized or localized, lower leg 02/13/2012 02/13/2012 Carcinoma of kidney, renal cell 10/27/2011 12/07/2013 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 10/2609/15/2012 Osteopenia 10/03/2011 12/03/2016 Urinary frequency 06/29/2010 06/22/2011 Persistent disorder of initiating or maintaining sleep 06/29/2010 05/28/2019 Osteoarthritis of knee 12/29/2009 2 Plantar fasciitis 06/20/2009 06/22/2011 Pain in joint, pelvic region and thigh 6 09/15/2012 Allergic rhinitis, cause unspecified 11/08/2004 01/21/2017 Degeneration of intervertebral disc, site unspec ified 11/08/2004 12/07/2013 Postmenopausal atrophic vaginitis 11/08/2004 05/28/2019 documented as of this encounter (statuses as of 01/16/2022) [facility] Narrative* Problem Noted Date Resolved Date Uterovaginal prolapse 10/01/2013 05/28/2019 Knee joint replacement by other means 03/19/2012 05/28/2019 Osteoarthrosis, unspecified whether generalized or localized, lower leg 02/13/2012 02/13/2012 Carcinoma of kidney, renal cell 10/27/2011 12/07/2013 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 10/2609/15/2012 Osteopenia 10/03/2011 12/03/2016 Urinary frequency 06/29/2010 06/22/2011 Persistent disorder of initiating or maintaining sleep 06/29/2010 05/28/2019 Osteoarthritis of knee 12/29/2009 2 Plantar fasciitis 06/20/2009 06/22/2011 Pain in joint, pelvic region and thigh 6 09/15/2012 Allergic rhinitis, cause unspecified 11/08/2004 01/21/2017 Degeneration of intervertebral disc, site unspec ified 11/08/2004 12/07/2013 Postmenopausal atrophic vaginitis 11/08/2004 05/28/2019 documented as of this encounter (statuses as of 01/16/2022) [facility] Narrative* Problem Noted Date Resolved Date Uterovaginal prolapse 10/01/2013 05/28/2019 Knee joint replacement by other means 03/19/2012 05/28/2019 Osteoarthrosis, unspecified whether generalized or localized, lower leg 02/13/2012 02/13/2012 Carcinoma of kidney, renal cell 10/27/2011 12/07/2013 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 10/2609/15/2012 Osteopenia 10/03/2011 12/03/2016 Urinary frequency 06/29/2010 06/22/2011 Persistent disorder of initiating or maintaining sleep 06/29/2010 05/28/2019 Osteoarthritis of knee 12/29/2009 2 Plantar fasciitis 06/20/2009 06/22/2011 Pain in joint, pelvic region and thigh 6 09/15/2012 Allergic rhinitis, cause unspecified 11/08/2004 01/21/2017 Degeneration of intervertebral disc, site unspec ified 11/08/2004 12/07/2013 Postmenopausal atrophic vaginitis 11/08/2004 05/28/2019 documented as of this encounter (statuses as of 01/22/2022) [facility] Narrative* Problem Noted Date Resolved Date Uterovaginal prolapse 10/01/2013 05/28/2019 Knee joint replacement by other means 03/19/2012 05/28/2019 Osteoarthrosis, unspecified whether generalized or localized, lower leg 02/13/2012 02/13/2012 Carcinoma of kidney, renal cell 10/27/2011 12/07/2013 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 10/2609/15/2012 Osteopenia 10/03/2011 12/03/2016 Urinary frequency 06/29/2010 06/22/2011 Persistent disorder of initiating or maintaining sleep 06/29/2010 05/28/2019 Osteoarthritis of knee 12/29/2009 2 Plantar fasciitis 06/20/2009 06/22/2011 Pain in joint, pelvic region and thigh 6 09/15/2012 Allergic rhinitis, cause unspecified 11/08/2004 01/21/2017 Degeneration of intervertebral disc, site unspec ified 11/08/2004 12/07/2013 Postmenopausal atrophic vaginitis 11/08/2004 05/28/2019 documented as of this encounter (statuses as of 01/30/2022) [facility] Narrative* Problem Noted Date Resolved Date Uterovaginal prolapse 10/01/2013 05/28/2019 Knee joint replacement by other means 03/19/2012 05/28/2019 Osteoarthrosis, unspecified whether generalized or localized, lower leg 02/13/2012 02/13/2012 Carcinoma of kidney, renal cell 10/27/2011 12/07/2013 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 10/2609/15/2012 Osteopenia 10/03/2011 12/03/2016 Urinary frequency 06/29/2010 06/22/2011 Persistent disorder of initiating or maintaining sleep 06/29/2010 05/28/2019 Osteoarthritis of knee 12/29/2009 2 Plantar fasciitis 06/20/2009 06/22/2011 Pain in joint, pelvic region and thigh 6 09/15/2012 Allergic rhinitis, cause unspecified 11/08/2004 01/21/2017 Degeneration of intervertebral disc, site unspec ified 11/08/2004 12/07/2013 Postmenopausal atrophic vaginitis 11/08/2004 05/28/2019 documented as of this encounter (statuses as of 01/30/2022) [facility] Narrative* Problem Noted Date Resolved Date Uterovaginal prolapse 10/01/2013 05/28/2019 Knee joint replacement by other means 03/19/2012 05/28/2019 Osteoarthrosis, unspecified whether generalized or localized, lower leg 02/13/2012 02/13/2012 Carcinoma of kidney, renal cell 10/27/2011 12/07/2013 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 10/2609/15/2012 Osteopenia 10/03/2011 12/03/2016 Urinary frequency 06/29/2010 06/22/2011 Persistent disorder of initiating or maintaining sleep 06/29/2010 05/28/2019 Osteoarthritis of knee 12/29/2009 2 Plantar fasciitis 06/20/2009 06/22/2011 Pain in joint, pelvic region and thigh 09/15/2012 Allergic rhinitis, cause unspecified 11/08/2004 01/21/2017 Degeneration of intervertebral disc, site unspec ified 11/08/2004 12/07/2013 Postmenopausal atrophic vaginitis 11/08/2004 05/28/2019 documented as of this encounter (statuses as of 02/13/2022) [facility] Narrative* Problem Noted Date Resolved Date Uterovaginal prolapse 10/01/2013 05/28/2019 Knee joint replacement by other means 03/19/2012 05/28/2019 Osteoarthrosis, unspecified whether generalized or localized, lower leg 02/13/2012 02/13/2012 Carcinoma of kidney, renal cell 10/27/2011 12/07/2013 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 10/2609/15/2012 Osteopenia 10/03/2011 12/03/2016 Urinary frequency 06/29/2010 06/22/2011 Persistent disorder of initiating or maintaining sleep 06/29/2010 05/28/2019 Osteoarthritis of knee 12/29/2009 2 Plantar fasciitis 06/20/2009 06/22/2011 Pain in joint, pelvic region and thigh 6 09/15/2012 Allergic rhinitis, cause unspecified 11/08/2004 01/21/2017 Degeneration of intervertebral disc, site unspec ified 11/08/2004 12/07/2013 Postmenopausal atrophic vaginitis 11/08/2004 05/28/2019 documented as of this encounter (statuses as of 03/13/2022) [place] [id number] History of Past illness Narrative* Problem Noted Date Resolved Date Uterovaginal prolapse 10/01/2013 05/28/2019 Knee joint replacement by other means 03/19/2012 05/28/2019 Osteoarthrosis, unspecified whether generalized or localized, lower leg 02/13/2012 02/13/2012 Carcinoma of kidney, renal cell 10/27/2011 12/07/2013 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 10/2609/15/2012 Osteopenia 10/03/2011 12/03/2016 Urinary frequency 06/29/2010 06/22/2011 Persistent disorder of initiating or maintaining sleep 06/29/2010 05/28/2019 Osteoarthritis of knee 12/29/2009 2 Plantar fasciitis 06/20/2009 06/22/2011 Pain in joint, pelvic region and thigh 6 09/15/2012 Allergic rhinitis, cause unspecified 11/08/2004 01/21/2017 Degeneration of intervertebral disc, site unspec ified 11/08/2004 12/07/2013 Postmenopausal atrophic vaginitis 11/08/2004 05/28/2019 documented as of this encounter (statuses as of 05/15/2022) [facility] Narrative* Problem Noted Date Resolved Date Uterovaginal prolapse 10/01/2013 05/28/2019 Knee joint replacement by other means 03/19/2012 05/28/2019 Osteoarthrosis, unspecified whether generalized or localized, lower leg 02/13/2012 02/13/2012 Carcinoma of kidney, renal cell 10/27/2011 12/07/2013 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 10/2609/15/2012 Osteopenia 10/03/2011 12/03/2016 Urinary frequency 06/29/2010 06/22/2011 Persistent disorder of initiating or maintaining sleep 06/29/2010 05/28/2019 Osteoarthritis of knee 12/29/2009 2 Plantar fasciitis 06/20/2009 06/22/2011 Pain in joint, pelvic region and thigh 6 09/15/2012 Allergic rhinitis, cause unspecified 11/08/2004 01/21/2017 Degeneration of intervertebral disc, site unspec ified 11/08/2004 12/07/2013 Postmenopausal atrophic vaginitis 11/08/2004 05/28/2019 documented as of this encounter (statuses as of 05/15/2022) [facility] Narrative* Problem Noted Date Resolved Date Uterovaginal prolapse 10/01/2013 05/28/2019 Knee joint replacement by other means 03/19/2012 05/28/2019 Osteoarthrosis, unspecified whether generalized or localized, lower leg 02/13/2012 02/13/2012 Carcinoma of kidney, renal cell 10/27/2011 12/07/2013 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 10/2609/15/2012 Osteopenia 10/03/2011 12/03/2016 Urinary frequency 06/29/2010 06/22/2011 Persistent disorder of initiating or maintaining sleep 06/29/2010 05/28/2019 Osteoarthritis of knee 12/29/2009 2 Plantar fasciitis 06/20/2009 06/22/2011 Pain in joint, pelvic region and thigh 6 09/15/2012 Allergic rhinitis, cause unspecified 11/08/2004 01/21/2017 Degeneration of intervertebral disc, site unspec ified 11/08/2004 12/07/2013 Postmenopausal atrophic vaginitis 11/08/2004 05/28/2019 documented as of this encounter (statuses as of 05/27/2022) [facility] Narrative* Problem Noted Date Resolved Date Uterovaginal prolapse 10/01/2013 05/28/2019 Knee joint replacement by other means 03/19/2012 05/28/2019 Osteoarthrosis, unspecified whether generalized or localized, lower leg 02/13/2012 02/13/2012 Carcinoma of kidney, renal cell 10/27/2011 12/07/2013 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 10/2609/15/2012 Osteopenia 10/03/2011 12/03/2016 Urinary frequency 06/29/2010 06/22/2011 Persistent disorder of initiating or maintaining sleep 06/29/2010 05/28/2019 Osteoarthritis of knee 12/29/2009 2 Plantar fasciitis 06/20/2009 06/22/2011 Pain in joint, pelvic region and thigh 6 09/15/2012 Allergic rhinitis, cause unspecified 11/08/2004 01/21/2017 Degeneration of intervertebral disc, site unspec ified 11/08/2004 12/07/2013 Postmenopausal atrophic vaginitis 11/08/2004 05/28/2019 documented as of this encounter (statuses as of 06/11/2022) [facility] Narrative* Problem Noted Date Resolved Date Uterovaginal prolapse 10/01/2013 05/28/2019 Knee joint replacement by other means 03/19/2012 05/28/2019 Osteoarthrosis, unspecified whether generalized or localized, lower leg 02/13/2012 02/13/2012 Carcinoma of kidney, renal cell 10/27/2011 12/07/2013 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 10/2609/15/2012 Osteopenia 10/03/2011 12/03/2016 Urinary frequency 06/29/2010 06/22/2011 Persistent disorder of initiating or maintaining sleep 06/29/2010 05/28/2019 Osteoarthritis of knee 12/29/2009 2 Plantar fasciitis 06/20/2009 06/22/2011 Pain in joint, pelvic region and thigh 6 09/15/2012 Allergic rhinitis, cause unspecified 11/08/2004 01/21/2017 Degeneration of intervertebral disc, site unspec ified 11/08/2004 12/07/2013 Postmenopausal atrophic vaginitis 11/08/2004 05/28/2019 documented as of this encounter (statuses as of 07/13/2022) [facility] History of Past illness Narrative* Problem Noted Date Resolved Date Uterovaginal prolapse 10/01/2013 05/28/2019 Knee joint replacement by other means 03/19/2012 05/28/2019 Osteoarthrosis, unspecified whether generalized or localized, lower leg 02/13/2012 02/13/2012 Carcinoma of kidney, renal cell 10/27/2011 12/07/2013 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 10/2609/15/2012 Osteopenia 10/03/2011 12/03/2016 Urinary frequency 06/29/2010 06/22/2011 Persistent disorder of initiating or maintaining sleep 06/29/2010 05/28/2019 Osteoarthritis of knee 12/29/2009 2 Plantar fasciitis 06/20/2009 06/22/2011 Pain in joint, pelvic region and thigh 6 09/15/2012 Allergic rhinitis, cause unspecified 11/08/2004 01/21/2017 Degeneration of intervertebral disc, site unspec ified 11/08/2004 12/07/2013 Postmenopausal atrophic vaginitis 11/08/2004 05/28/2019 documented as of this encounter (statuses as of 07/31/2022) [facility] History of Past illness Narrative* Problem Noted Date Diagnosed Date Resolved Date Uterovaginal prolapse 10/01/20132019 Knee joint replacement by other means 03/19/2012 05/28/2019 Osteoarthrosis, unspecified whether generalized or localized, lower leg 02/13/201202/01 Carcinoma of kidney, renal cell 10/27/2011 12/07/2013 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 10/27/2011 09/15/2012 Osteopenia 10/03/2011 12/03/2016 Urinary frequency 06/29/2010 06/22/2011 Persistent disorder of initi ating or maintaining sleep 06/29/2010 05/28/2019 Osteoarthritis of knee 12/29/200902/10 Plantar fasciitis 06/20/2009 06/22/2011 Pain in joint, pelvic region and thigh 06/05/2005 09/15/2012 Allergic rhinitis, cause unspecified 11/08/2004 01/21/2017 Degeneration of intervertebr al disc, site unspecified 11/08/2004 12/07/2013 Postmenopausal atrophic vaginitis 11/08/2004 05/28/2019 documented as of this encounter (statuses as of 09/24/2022) [facility] History of Past illness Narrative* Problem Noted Date Diagnosed Date Resolved Date Uterovaginal prolapse 10/01/20132019 Knee joint replacement by other means 03/19/2012 05/28/2019 Osteoarthrosis, unspecified whether generalized or localized, lower leg 02/13/201202/01 Carcinoma of kidney, renal cell 10/27/2011 12/07/2013 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 10/27/2011 09/15/2012 Osteopenia 10/03/2011 12/03/2016 Urinary frequency 06/29/2010 06/22/2011 Persistent disorder of initi ating or maintaining sleep 06/29/2010 05/28/2019 Osteoarthritis of knee 12/29/200902/10 Plantar fasciitis 06/20/2009 06/22/2011 Pain in joint, pelvic region and thigh 06/05/2005 09/15/2012 Allergic rhinitis, cause unspecified 11/08/2004 01/21/2017 Degeneration of intervertebr al disc, site unspecified 11/08/2004 12/07/2013 Postmenopausal atrophic vaginitis 11/08/2004 05/28/2019 documented as of this encounter (statuses as of 10/23/2022) [facility] History of Past illness Narrative* Problem Noted Date Diagnosed Date Resolved Date Uterovaginal prolapse 10/01/20132019 Knee joint replacement by other means 03/19/2012 05/28/2019 Osteoarthrosis, unspecified whether generalized or localized, lower leg 02/13/201202/01 Carcinoma of kidney, renal cell 10/27/2011 12/07/2013 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 10/27/2011 09/15/2012 Osteopenia 10/03/2011 12/03/2016 Urinary frequency 06/29/2010 06/22/2011 Persistent disorder of initi ating or maintaining sleep 06/29/2010 05/28/2019 Osteoarthritis of knee 12/29/200902/10 Plantar fasciitis 06/20/2009 06/22/2011 Pain in joint, pelvic region and thigh 06/05/2005 09/15/2012 Allergic rhinitis, cause unspecified 11/08/2004 01/21/2017 Degeneration of intervertebr al disc, site unspecified 11/08/2004 12/07/2013 Postmenopausal atrophic vaginitis 11/08/2004 05/28/2019 documented as of this encounter (statuses as of 10/25/2022) [facility] History of Past illness Narrative* Problem Noted Date Diagnosed Date Resolved Date Uterovaginal prolapse 10/01/20132019 Knee joint replacement by other means 03/19/2012 05/28/2019 Osteoarthrosis, unspecified whether generalized or localized, lower leg 02/13/201202/01 Carcinoma of kidney, renal cell 10/27/2011 12/07/2013 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 10/27/2011 09/15/2012 Osteopenia 10/03/2011 12/03/2016 Urinary frequency 06/29/2010 06/22/2011 Persistent disorder of initi ating or maintaining sleep 06/29/2010 05/28/2019 Osteoarthritis of knee 12/29/200902/10 Plantar fasciitis 06/20/2009 06/22/2011 Pain in joint, pelvic region and thigh 06/05/2005 09/15/2012 Allergic rhinitis, cause unspecified 11/08/2004 01/21/2017 Degeneration of intervertebr al disc, site unspecified 11/08/2004 12/07/2013 Postmenopausal atrophic vaginitis 11/08/2004 05/28/2019 documented as of this encounter (statuses as of 10/30/2022) [facility] History of Past illness Narrative* Problem Noted Date Diagnosed Date Resolved Date Uterovaginal prolapse 10/01/20132019 Knee joint replacement by other means 03/19/2012 05/28/2019 Osteoarthrosis, unspecified whether generalized or localized, lower leg 02/13/201202/01 Carcinoma of kidney, renal cell 10/27/2011 12/07/2013 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 10/27/2011 09/15/2012 Osteopenia 10/03/2011 12/03/2016 Urinary frequency 06/29/2010 06/22/2011 Persistent disorder of initi ating or maintaining sleep 06/29/2010 05/28/2019 Osteoarthritis of knee 12/29/200902/10 Plantar fasciitis 06/20/2009 06/22/2011 Pain in joint, pelvic region and thigh 06/05/2005 09/15/2012 Allergic rhinitis, cause unspecified 11/08/2004 01/21/2017 Degeneration of intervertebr al disc, site unspecified 11/08/2004 12/07/2013 Postmenopausal atrophic vaginitis 11/08/2004 05/28/2019 documented as of this encounter (statuses as of 11/16/2022) [facility] History of Past illness Narrative* Problem Noted Date Diagnosed Date Resolved Date Uterovaginal prolapse 10/01/20132019 Knee joint replacement by other means 03/19/2012 05/28/2019 Osteoarthrosis, unspecified whether generalized or localized, lower leg 02/13/201202/01 Carcinoma of kidney, renal cell 10/27/2011 12/07/2013 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 10/27/2011 09/15/2012 Osteopenia 10/03/2011 12/03/2016 Urinary frequency 06/29/2010 06/22/2011 Persistent disorder of initi ating or maintaining sleep 06/29/2010 05/28/2019 Osteoarthritis of knee 12/29/200902/10 Plantar fasciitis 06/20/2009 06/22/2011 Pain in joint, pelvic region and thigh 06/05/2005 09/15/2012 Allergic rhinitis, cause unspecified 11/08/2004 01/21/2017 Degeneration of intervertebr al disc, site unspecified 11/08/2004 12/07/2013 Postmenopausal atrophic vaginitis 11/08/2004 05/28/2019 documented as of this encounter (statuses as of 11/21/2022) [facility] History of Past illness Narrative* Problem Noted Date Diagnosed Date Resolved Date Uterovaginal prolapse 10/01/20132019 Knee joint replacement by other means 03/19/2012 05/28/2019 Osteoarthrosis, unspecified whether generalized or localized, lower leg 02/13/201202/01 Carcinoma of kidney, renal cell 10/27/2011 12/07/2013 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 10/27/2011 09/15/2012 Osteopenia 10/03/2011 12/03/2016 Urinary frequency 06/29/2010 06/22/2011 Persistent disorder of initi ating or maintaining sleep 06/29/2010 05/28/2019 Osteoarthritis of knee 12/29/200902/10 Plantar fasciitis 06/20/2009 06/22/2011 Pain in joint, pelvic region and thigh 06/05/2005 09/15/2012 Allergic rhinitis, cause unspecified 11/08/2004 01/21/2017 Degeneration of intervertebr al disc, site unspecified 11/08/2004 12/07/2013 Postmenopausal atrophic vaginitis 11/08/2004 05/28/2019 documented as of this encounter (statuses as of 12/10/2022) [facility] History of Past illness Narrative* Problem Noted Date Diagnosed Date Resolved Date Uterovaginal prolapse 10/01/20132019 Knee joint replacement by other means 03/19/2012 05/28/2019 Osteoarthrosis, unspecified whether generalized or localized, lower leg 02/13/201202/01 Carcinoma of kidney, renal cell 10/27/2011 12/07/2013 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 10/27/2011 09/15/2012 Osteopenia 10/03/2011 12/03/2016 Urinary frequency 06/29/2010 06/22/2011 Persistent disorder of initi ating or maintaining sleep 06/29/2010 05/28/2019 Osteoarthritis of knee 12/29/200902/10 Plantar fasciitis 06/20/2009 06/22/2011 Pain in joint, pelvic region and thigh 06/05/2005 09/15/2012 Allergic rhinitis, cause unspecified 11/08/2004 01/21/2017 Degeneration of intervertebr al disc, site unspecified 11/08/2004 12/07/2013 Postmenopausal atrophic vaginitis 11/08/2004 05/28/2019 documented as of this encounter (statuses as of 12/19/2022) [facility] History of Past illness Narrative* Problem Noted Date Diagnosed Date Resolved Date Uterovaginal prolapse 10/01/20132019 Knee joint replacement by other means 03/19/2012 05/28/2019 Osteoarthrosis, unspecified whether generalized or localized, lower leg 02/13/201202/01 Carcinoma of kidney, renal cell 10/27/2011 12/07/2013 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 10/27/2011 09/15/2012 Osteopenia 10/03/2011 12/03/2016 Urinary frequency 06/29/2010 06/22/2011 Persistent disorder of initi ating or maintaining sleep 06/29/2010 05/28/2019 Osteoarthritis of knee 12/29/200902/10 Plantar fasciitis 06/20/2009 06/22/2011 Pain in joint, pelvic region and thigh 06/05/2005 09/15/2012 Allergic rhinitis, cause unspecified 11/08/2004 01/21/2017 Degeneration of intervertebr al disc, site unspecified 11/08/2004 12/07/2013 Postmenopausal atrophic vaginitis 11/08/2004 05/28/2019 documented as of this encounter (statuses as of 02/01/2023) [facility] History of Past illness Narrative* Problem Noted Date Diagnosed Date Resolved Date Uterovaginal prolapse 10/01/20132019 Knee joint replacement by other means 03/19/2012 05/28/2019 Osteoarthrosis, unspecified whether generalized or localized, lower leg 02/13/201202/01 Carcinoma of kidney, renal cell 10/27/2011 12/07/2013 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 10/27/2011 09/15/2012 Osteopenia 10/03/2011 12/03/2016 Urinary frequency 06/29/2010 06/22/2011 Persistent disorder of initi ating or maintaining sleep 06/29/2010 05/28/2019 Osteoarthritis of knee 12/29/200902/10 Plantar fasciitis 06/20/2009 06/22/2011 Pain in joint, pelvic region and thigh 06/05/2005 09/15/2012 Allergic rhinitis, cause unspecified 11/08/2004 01/21/2017 Degeneration of intervertebr al disc, site unspecified 11/08/2004 12/07/2013 Postmenopausal atrophic vaginitis 11/08/2004 05/28/2019 documented as of this encounter (statuses as of 04/09/2023) [facility] History of Past illness Narrative* Problem Noted Date Diagnosed Date Resolved Date Uterovaginal prolapse 10/01/20132019 Knee joint replacement by other means 03/19/2012 05/28/2019 Osteoarthrosis, unspecified whether generalized or localized, lower leg 02/13/201202/01 Carcinoma of kidney, renal cell 10/27/2011 12/07/2013 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 10/27/2011 09/15/2012 Osteopenia 10/03/2011 12/03/2016 Urinary frequency 06/29/2010 06/22/2011 Persistent disorder of initi ating or maintaining sleep 06/29/2010 05/28/2019 Osteoarthritis of knee 12/29/200902/10 Plantar fasciitis 06/20/2009 06/22/2011 Pain in joint, pelvic region and thigh 06/05/2005 09/15/2012 Allergic rhinitis, cause unspecified 11/08/2004 01/21/2017 Degeneration of intervertebr al disc, site unspecified 11/08/2004 12/07/2013 Postmenopausal atrophic vaginitis 11/08/2004 05/28/2019 documented as of this encounter (statuses as of 05/08/2023) [facility] History of Past illness Narrative* Problem Noted Date Diagnosed Date Resolved Date Uterovaginal prolapse 10/01/20132019 Knee joint replacement by other means 03/19/2012 05/28/2019 Osteoarthrosis, unspecified whether generalized or localized, lower leg 02/13/201202/01 Carcinoma of kidney, renal cell 10/27/2011 12/07/2013 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 10/27/2011 09/15/2012 Osteopenia 10/03/2011 12/03/2016 Urinary frequency 06/29/2010 06/22/2011 Persistent disorder of initi ating or maintaining sleep 06/29/2010 05/28/2019 Osteoarthritis of knee 12/29/200902/10 Plantar fasciitis 06/20/2009 06/22/2011 Pain in joint, pelvic region and thigh 06/05/2005 09/15/2012 Allergic rhinitis, cause unspecified 11/08/2004 01/21/2017 Degeneration of intervertebr al disc, site unspecified 11/08/2004 12/07/2013 Postmenopausal atrophic vaginitis 11/08/2004 05/28/2019 documented as of this encounter (statuses as of 06/08/2023) [facility] Calos Shaffer [facility] Note Date/Time June 12, 2024 1:4 7pm [facility] Medical Records Department [address] [place] [id number] Anesthesia Postop Eval I 06/12/24 1346 MR#: [id number] Acct: [id number] Name: LEONEL ANDRE Rep #:[id number] 1 : 1945 79 From: Calos Shaffer PCP: Dr. Femi Baeza MD Status:R EG SDC Y Race: C Location: [place] [address] Anesthesia: Postop Eval I Current Vital Signs Temperature: 97.3 F Pulse Rate: 60 Blood Pressure: 113/54 Respiratory Rate: 16 Pulse Ox: 100 Oxygen Delivery Method: Room Air Assessment Airway patent: Yes Spontaneous unlabored respirations: Yes Mental status: Awake and Calm nausea: No Vomiting: No Anesthesia Complication: No Fluid Hydration Crystalloid volume administer (ml): 40 Total IV fluid infused: 40 Progress Note Anesthesia document: Postop Eval 1 completed: Yes 06/12/24 1347 <Electronically signed by Calos Shaffer > Date _ Calos Shaffer Cosigner Signature: Date CC: ~ Signed [facility] Work Phone: Consult note Author Jed elaina [facility] Note Date/Time June 12, 2024 2:2 0pm [facility] Medical Records Department [address] [place] [id number] Anesthesia Postop Eval II 06/12/24 1355 MR#: [id number] Acct: [id number] Name: LEONEL ANDRE Rep #:[id number] 3 : 1945 79 From: Jed Rubio MD PCP: Dr. Femi Baeza MD Status:Jose SAHNI [facility] [place]: C Location: [place] [address] Anesthesia Postop Eval I Sum Postop Eval Completion status Anesthesia document: Postop Eval 1 completed: Yes Anesthesia Postop Eval I Summary Anesthesia Postop Eval I Summary: Anesthesia Postop Eval I: Assessment Summary Airway patent Yes 06/12/24 13:47 [email or web address] Spontaneous unlabored Yes 06/12/24 13:47 [email or web address] respirations Mental status Awake,Calm 06/12/24 13:47 [email or web address] nausea No 06/12/24 13:47 [email or web address] Vomiting No 06/12/24 13:47 [email or web address] Anesthesia Postop Eval I: Fluid Summary Crystalloid volume administer 40 06/12/24 13:47 [email or web address] (ml) Colloids volume administered ( ml) Blood Product volume administered (ml) Total IV fluid infused 40 06/12/24 13:47 [email or web address] Anesthesia Postop Eval I: Summary Notes Anesthesia Complication No 06/12/24 13:47 [email or web address] Anesthesia Complication Comment: Post-operative progress note Anesthesia: Postop Eval II Evaluation Mental status: Awake Pain Level: 0 nausea: No Vomiting: No 06/12/24 1355 <Electronically signed by Jed Rubio MD > Date _ Jed Rubio MD Cosigner Signature: Date CC: ~ Signed [facility] Work Phone: Evaluation note* Diagnosis Lower abdominal pain- Primary Abdominal pain, other specified site Essential hypertension Unspecified essential hypertension Dysuria Other microscopic hematuria Vitamin D deficiency Unspecified vitamin D deficiency Hypercalcemia [facility]* Diagnosis Lower abdominal pain Abdominal pain, other specified site Dysuria Other microscopic hematuria [facility] noteNo assessment information availableWMarion [facility] Work Phone: evaluation note* Diagnosis Anxiety Anxiety state, unspecified [facility] Medicare annual wellness visit, subsequent- Primary Routine general medical examination at a health care facility Encounter for immunization Need for other specified prophylactic vaccination against single bacterial disease Hypercalcemia [facility] Diagnosis Hypercalcemia- Primary Vitamin D deficiency Unspecified vitamin D deficiency [facility] Diagnosis Anxiety Anxiety state, unspecified [facility] Diagnosis Hypercalcemia- Primary [facility] Diagnosis Radiculopathy, lumbar region- Primary Thoracic or lumbosacral neuritis or radiculitis, unspecified [facility] Diagnosis Essential hypertension Unspecified essential hypertension [facility]* Diagnosis Urinary tract infection without hematuria, site unspecified- Primary [facility]* Diagnosis Onset Date Resolution Status 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 Primary hyperparathyroidism chronic [facility] Work Phone: Evaluation note* Diagnosis Urge incontinence [facility]* Diagnosis Anxiety Anxiety state, unspecified documented in this encounter [facility] note* Diagnosis Essential hypertension- Primary Unspecified essential hypertension Dysuria [facility]* Diagnosis Anxiety Anxiety state, unspecified [facility]* Diagnosis Essential hypertension Unspecified essential hypertension [facility]* Diagnosis Anxiety Anxiety state, unspecified [facility]* Diagnosis Essential hypertension- Primary Unspecified essential hypertension Urge incontinence Osteoporosis, unspecified osteoporosis type, unspecified pathological fracture presence Encounter for lipid screening for cardiovascular disease Screening for lipoid disorders [facility]* Diagnosis Skin lesion of back- Primary Unspecified disorder of skin and subcutaneous tissue Changing skin lesion Unspecified disorder of skin and subcutaneous tissue [facility]* Diagnosis Dysuria- Primary Urinary frequency [facility]* Diagnosis Osteoporosis, unspecified osteoporosis type, unspecified pathological fracture presence [facility]* Diagnosis Urge incontinence Anxiety Anxiety state, unspecified [facility]* Diagnosis Radiculopathy, lumbar region- Primary Thoracic or lumbosacral neuritis or radiculitis, unspecified Pain in right hip Pain in joint, pelvic region and thigh Chronic idiopathic constipation Unspecified constipation [facility]* Diagnosis Rhinosinusitis- Primary Unspecified sinusitis (chronic) Impacted cerumen of both ears Impacted cerumen Essential hypertension Unspecified essential hypertension [facility]* Diagnosis Gastrointestinal hemorrhage, unspecified gastrointestinal hemorrhage type- Primary Constipation, unspecified constipation type Mass of right kidney Unspecified disorder of kidney and ureter [facility]* Diagnosis Medicare annual wellness visit, subsequent- Primary Routine general medical examination at a health care facility Anxiety Anxiety state, unspecified Essential hypertension Unspecified essential hypertension Screening for depression Radiculopathy, lumbar region Thoracic or lumbosacral neuritis or radiculitis, unspecified Pain in right hip Pain in joint, pelvic region and thigh History of renal cell carcinoma Osteoporosis, unspecified osteoporosis type, unspecified pathological fracture presence [facility]* Diagnosis Essential hypertension Unspecified essential hypertension documented in this encounter [facility] note* Diagnosis Urge incontinence [facility]* Diagnosis Anxiety Anxiety state, unspecified documented in this encounter [facility] note* Diagnosis Lower leg edema- Primary Edema Essential hypertension Unspecified essential hypertension Chronic idiopathic constipation Unspecified constipation Weight loss, non-intentional Loss of weight Polyp of colon, unspecified part of colon, unspecified type [facility]* Diagnosis Essential hypertension Unspecified essential hypertension [facility]* Diagnosis Acute non-recurrent maxillary sinusitis- Primary Neck pain Cervicalgia [facility]* Diagnosis Acute pain of both knees- Primary Fall on same level from slipping, tripping or stumbling, initial encounter Acute pain of right shoulder Chronic neck pain Cervicalgia Age related osteoporosis, unspecified pathological fracture presence Acute pain of both knees Fall on same level from slipping, tripping or stumbling, initial encounter Age related osteoporosis, unspecified pathological fracture presence Acute pain of right shoulder Chronic neck pain Cervicalgia [facility]* Diagnosis Acute pain of both knees Fall on same level from slipping, tripping or stumbling, initial encounter Age related osteoporosis, unspecified pathological fracture presence Acute pain of right shoulder Chronic neck pain Cervicalgia [facility]* Diagnosis Anxiety Anxiety state, unspecified [facility]* Diagnosis Essential hypertension- Primary Unspecified essential hypertension Vitamin D deficiency Unspecified vitamin D deficiency [facility]* Diagnosis Dysuria- Primary Lower leg edema Edema Essential hypertension Unspecified essential hypertension Acute pain of right shoulder Primary osteoarthritis of right shoulder Primary localized osteoarthrosis, shoulder region Chronic idiopathic constipation Unspecified constipation [facility] Author Krzysztof Arroyo [facility] Note Date/Time June 12, 2024 1:[address] [facility] Medical Records Department [address] [place] [address] History & Physical Exam 06/12/24 1302 MR#: [id number] Acct: [id number] Name: LEONEL ANDRE Rep #:[id number] 1 : 1945 79 From: Krzysztof Arroyo DO PCP: Dr. Femi Baeza MD Status:R [place] [facility] [place] [address] HPI - General General Date of Admission: 06/12/24 Date of Service: 06/12/24 Chief Complaint: Constipation HPI Narrative LEONEL ANDRE, is a 79 F who presents with the chief Complaint: constipation [facility] 02.21.24 w/ watery diarrhea followed by n/v for 24 hours. Work up mostly unremarkable. Suspected viral gastroenteririrs. Discharged after IV fluids and potassium repletion. CT abd/pelvis 02.21.24; 1. Nonspecific fluid-filled small bowel loops and colonwithout evidence of bowel obstruction could be due to enterocolitis. 2. Persistent complex hypodense lesion in the right kidney slightly larger than the previous examinations could be due to slowly growing tumor. [facility] 1..25; with no bowel movement for 3 weeks and mild intermittent rectal bleeding. [facility] 1..25; Moderate to large amount of colonic stool and gas. [facility] 1..25 with constipation and suspected rectal prolapse per pt. Normal work up. Physical exam with no indication of rectal prolapse. [facility] Established . with complaints related to rectal bleeding and possible prolapse *plan for colonoscopy, increase colace Colonoscopy .;- Preparation of the colon was poor. - Diverticulosis in the recto-sigmoid colon and in the sigmoid colon. - Stool in the entire examined colon. 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 - No specimens collected. OV 2 Pt continues to have issues with constipation since her colonoscopy. She has not had a full bm since the colonoscopy. She is passing gas. She startedeating a normal diet about 5 days ago. She admits to being afraid of having a bmas this has caused her "prolapse" to fall out and bleed in the past. She denies abd pain, n/v, diarrhea or heartburn. [facility] Medical History Wears glasses Cancer Anxiety Ambulates with cane History of renal disease Bladder disease History of hiatal hernia Gastric reflux Former smoker Gait disturbance Diverticular disease Primary hyperparathyroidism Sciatica Age related osteoporosis Bowel obstruction Scoliosis Lumbar radiculopathy Hx of renal cell carcinoma Osteoporosis GERD (gastroesophageal reflux disease) Hypoglycemia HTN (hypertension) Bladder prolapse Home Medications ?Medication ?Instructions ?Recorded ?Last Taken ?Type cholecalciferol (vitamin D3) 25 2,000 unit PO DAILY Unknown History mcg (1,000 unit) tablet (Vitamin D3) oxybutynin chloride 5 mg tablet 5 mg PO BID 12/26/15 U nknown History diltiazem HCl 180 mg capsule,24 360 mg PO DAILY 06/12/24 History hr,extended release lorazepam 0.5 mg tablet 0.5 mg PO DAILY 09/08/20 Unk nown History acetaminophen 500 mg tablet 500 mg PO Q6H PRN pain Unknown History (Tylenol Extra Strength) cetirizine 5 mg tablet 5 mg PO DAILY PRN allergy sy mptoms 08/23/22 Unknown History fluticasone propionate 50 1 spray intranasal DAILY Unknown History mcg/actuation nasal spray,suspension omeprazole 40 mg capsule,delayed 40 mg PO DAILY 03/30/24 History release sodium chloride 0.65 % nasal spray 1 spray intranasal DAILY 08/23/22 Unknown History aerosol denosumab 60 mg/mL subcutaneous 60 mg subcut [id number] #1 mL 10/03/22 Unknown Rx syringe (Prolia) Lactobacillus rhamnosus GG 20 1 cell PO DAILY 12/16/23 Unknown History billion cell capsule (Probiotic Digestive Care) ondansetron 8 mg disintegrating 8 mg PO Q8H PRN nausea and 02/21/24 Unknown Rx tablet vomiting #15 tabs docusate sodium 100 mg capsule 100 mg PO TID #90 caps 03/25/24 Unknown Rx linaclotide 145 mcg capsule 145 mcg PO QAM #30 caps Unknown Rx (Linzess) losartan 50 mg tablet 50 mg PO BID 06/08/24 History Allergy/AdvReac Type Severity Reaction Status Date / Time lisinopril Allergy Swelling Verified 06/12/24 11:58 esomeprazole (From Nexium) AdvReac Nausea/Vom/ Verified 06/12/24 11:58 Diarrhea Family History Father Alcoholism Brother Alcoholism Mother Arthritis Hypertension Osteoporosis Surgical History Hx of colonoscopy History of tubal ligation History of cholecystectomy History of knee replacement H/O partial nephrectomy Social History Smoking Status: Former smoker alcohol intake: never what type of physical activity do you participate in: bicycling ROS Constitutional Constitutional: Denies fatigue, fever(s), poor appetite, weight gain or weight loss Gastrointestinal Gastrointestinal: Denies belching, bloating, change in bowel habits, change in stool character, chewing difficulty, coffee ground emesis, constipation, cramping, diarrhea, dyspepsia, dysphagia, early satiety, excessive flatus, fecalincontinence, heartburn, hematemesis, hematochezia, hemorrhoids, loose stools, melena, nausea, odynophagia, rectal bleeding, tenesmus, vomiting or weight changes Vital Signs Vital Signs Vital Signs: 06/12/24 11:59 06/12/24 11:59 06/12/24 12:12 Temperature 98.9 F 98.9 F Temperature Source Temporal Pulse Rate 78 78 Respiratory Rate 16 16 Respiratory Pattern Normal Blood Pressure 139/65 H 139/65 H Blood Pressure Mean 89 Blood Pressure Source Monitor Blood Pressure Position Semi-Fowlers Blood Pressure Location Right Arm Pulse Ox 100 100 Oxygen Delivery Method Room Air Weight Weight: 122 lb 12.8 oz Body Mass Index (BMI) 21.0 Physical Exam Const alert, oriented x3, no apparent distress and healthy appearing General Appearance: cooperative GI normal to inspection, nondistended, normoactive bowel sounds, soft to palpation,non-tender and non-distended Percussion: normal to percussion Rectal Exam: deferred Assessment & Plan Assessment/Plan (1) Colonic stricture: (2) GI bleed: PLAN: Assessment and Plan Assessment and Plan (1) GI bleed: Status: Acute Plan: Pt is a 79 yo female pt here today for f/u after colonoscopy. Pt has had issues with possible rectal prolapse over the past couple of months. She underwent colonoscopy which showed a lot of stool as well as a stricture at the hepatic flexure. SHe was scheduled for a repeat scope. CT abd/pelvis ordered for the colonic stricture. She will continue colace daily and start miralax daily. She will keep me updated this week if she has a bm. -CT -repeat scope -continue colace -start miralax daily (2) Colonic stricture: Status: Acute 06/12/24 1304 <Electronically signed by Krzysztof Arroyo DO> Cosigner Signature (if applicable): CC: Dr. Femi Baeza MD; Krzysztof Arroyo DO~ Signed [facility] Work Phone: [facility] Work Phone: Reason for referral (narrative)* Diagnostic Procedure Only (Routine) - Authorized Specialty Diagnoses / Procedures Referred By Kristina kurtz Referred To Contact US IMAGING Diagnoses Lower abdominal pain Dysuria Other microscopic hematuria Procedures US KIDNEY/BLADDER US RETROPERITONEAL REAL TIME W/IMAGE COMPLETE Femi Baeza MD [address] [place], [place] [id number] Us Imaging Referral ID Status Reason Start Date Expiration Date Visits Requested Visits Authorized [id number] Authorized Auto-Generat ed Referral 06/14/2021 07/14/2022 1 1 [facility] for referral (narrative)* Diagnostic Procedure Only (Routine) - Closed Specialty Diagnoses / Procedures [facility] Referred To Contact US IMAGING Diagnoses Lower abdominal pain Dysuria Other microscopic hematuria Procedures US KIDNEY/BLADDER US RETROPERITONEAL REAL TIME W/IMAGE COMPLETE Femi Baeza MD [address] [place] [id number] Us Imaging Referral ID Status Reason Start Date Expiration Date V isits Requested Visits Authorized [id number] Closed Auto-Generate d Referral 06/14/2021 07/14/2022 1 1 [facility] for referral (narrative)* Diagnostic Procedure Only (Routine) - Pending Review Specialty Diagnoses / Procedures Referred By Contac t Referred To Contact XR IMAGING Diagnoses Osteoporosis, unspecified osteoporosis type, unspecified pathological fracture presence Procedures DXA-AXIAL SKELETON Xuan Brandon APRN.SNUFF MAKER [address] [place] [address] [place] [address] Referral ID Status Reason Start Date Expiration Date Visits Requested Visits Authorized [id number] Pending Review Auto-Generat ed Referral 09/11/2023 10/10/2024 1 1 [facility] for referral (narrative)* Diagnostic Procedure Only (Routine) - Closed Specialty Diagnoses / Procedures Referred By Contac t Referred To Contact XR IMAGING Diagnoses Osteoporosis, unspecified osteoporosis type, unspecified pathological fracture presence Procedures DXA-AXIAL SKELETON Xuan Brandon APRN.CNP [address] [place] [address] [place] [address] Referral ID Status Reason Start Date Expiration Date V isits Requested Visits Authorized [id number] Closed Auto-Generate d Referral 09/11/2023 10/10/2024 1 1 [facility] for referral (narrative)No reason for referral information [facility]Ind[facility] Work Phone: Reason for visit Narrative* Diagnostic Procedure Only (Routine) - Closed Specialty Diagnoses / Procedures Referred By Contac t Referred To Contact US IMAGING Diagnoses Lower abdominal pain Dysuria Other microscopic hematuria Procedures US KIDNEY/BLADDER US RETROPERITONEAL REAL TIME W/IMAGE COMPLETE Femi Baeza MD [address] [place] [address] Us Imaging Referral ID Status Reason Start Date Expiration Date V isits Requested Visits Authorized [id number] Closed Auto-Generate d Referral 06/14/2021 07/14/2022 1 1 [facility] for visit Narrative* Diagnostic Procedure Only (Routine) - Closed Specialty Diagnoses / Procedures Referred By Contac t Referred To Contact XR IMAGING Diagnoses Osteoporosis, unspecified osteoporosis type, unspecified pathological fracture presence Procedures DXA-AXIAL SKELETON Xuan Brandon, POTATO PEELER.SNUFF MAKER [address] [place] [address] [place] [address] Referral ID Status Reason Start Date Expiration Date V isits Requested Visits Authorized [id number] Closed Auto-Generate d Referral 09/11/2023 10/10/2024 1 1 [facility] for visit Narrative* Diagnostic Procedure Only (Routine) - Closed Specialty Diagnoses / Procedures Referred By Contac t Referred To Contact XR IMAGING Diagnoses Chronic neck pain Age related osteoporosis, unspecified pathological fracture presence Procedures XR CERVICAL 2V FLEX/EXT RADEX SPINE CERVICAL 2 OR 3 VIEWS Xuan Brandon, POTATO PEELER.SNUFF MAKER [address] [place] [address] Phone: tel: fax: [place] [address] Referral ID Status Reason Start Date Expiration Date V isits Requested Visits Authorized [id number] Closed Auto-Generate d Referral 09/08/2024 10/08/2025 1 1 [facility] Advance Directives No Advanced Directives Records FoundDocuments on File Type Date Recorded Patient Estate Attorney Expl anation Advance Directive(s) 06/09/2020 11:42 AM Advance Directive(s) 10/08/2016 1:49 PM Documents on File Type Date Recorded Patient Estate Attorney Expl anation Advance Directive(s) 06/09/2020 11:42 AM Advance Directive(s) 10/08/2016 1:49 PM Advance Directive Response Recorded Date/ Time Living Will No June 01, 2021 5:51pm Power of Foundry Operator No June 01 5:51pm Advance Directive Response Recorded Date/ Time Name of Medical Power of Foundry Operator marilyn cisneros November 18, 2021 5:19pm Living Will Yes November 18, 2021 5:19pm Power of Foundry Operator Yes November 5:19pm Documents on File Type Date Recorded Patient Estate Attorney Expl anation Advance Directive(s) 06/09/2020 11:42 AM Documents on File Type Date Recorded Patient Estate Attorney Expl anation Advance Directive(s) 06/09/2020 11:42 AM Advance Directive Response Recorded Date/ Time Living Will No May 23, 2022 4:48pm Power of Foundry Operator No May 23 4:48pm Advance Directive Response Recorded Date/ Time Living Will No February 20 11:22am Power of Foundry Operator No February 21, 2024 11:22am Living Will Yes February 20 1:07am Power of Foundry Operator Yes February 21, 2024 1:07am Name of Medical Power of Foundry Operator son--marilyn kasper erilla February 21, 2024 1:07am Living Will Yes March 16 10:04pm Power of Foundry Operator Yes March 16, 2024 10:04pm Name of Medical Power of Foundry Operator marilyn Diaz --son March 16, 2024 10:04pm Living Will No March 20 9:57am Power of Foundry Operator No March 20, 2024 9:57am Living Will Yes March 27 11:41am Power of Foundry Operator Yes March 27, 2024 11:41am Name of Medical Power of Foundry Operator SON March 27, 2024 11:41am Advance Directive Response Recorded Date/ Time Living Will No February 20 11:22am Do you have a Healthcare Pow er of Foundry Operator? No February 21, 2024 11:22am Living Will Yes June 08, 2024 11:36am Do you have a Healthcare Pow er of Foundry Operator? Yes June 08, 2024 11:36am Name of Medical Power of Foundry Operator SON-MARILYN COON June 08, 2024 11:36am Living Will Yes February 20 1:07am Do you have a Healthcare Pow er of Foundry Operator? Yes February 21, 2024 1:07am Name of Medical Power of Foundry Operator son--marilyn kasper erlizzie February 21, 2024 1:07am Living Will Yes March 16 10:04pm Do you have a Healthcare Pow er of Foundry Operator? Yes March 16, 2024 10:04pm Name of Medical Power of Foundry Operator marilyn Diaz --son March 16, 2024 10:04pm Living Will No March 20 9:57am Do you have a Healthcare Pow er of Foundry Operator? No March 20, 2024 9:57am Living Will Yes March 27 11:41am Do you have a Healthcare Pow er of Foundry Operator? Yes March 27, 2024 11:41am Name of Medical Power of Foundry Operator ALEXANDRA March 27, 2024 11:41am Advance Directive Response Recorded Date/ Time Living Will Yes June 08, 2024 11:36am Do you have a Healthcare Pow er of Foundry Operator? Yes June 08, 2024 11:36am Name of Medical Power of Foundry Operator TAMMY COON June 08, 2024 11:36am Living Will No March 20 9:57am Do you have a Healthcare Pow er of Foundry Operator? No March 20, 2024 9:57am Living Will Yes March 27 11:41am Do you have a Healthcare Pow er of Foundry Operator? Yes March 27, 2024 11:41am Name of Medical Power of Foundry Operator ALEXANDRA March 27, 2024 11:41am Advance Directive Response Recorded Date/ Time Living Will Yes June 08, 2024 11:36am Do you have a Healthcare Pow er of Foundry Operator? Yes June 08, 2024 11:36am Name of Medical Power of Foundry Operator TAMMY COON June 08, 2024 11:36am Chief Complaint and Reason for Visit Chief Complaint ABD PAIN KIDNEY CANCER Chief Complaint weakness Chief Complaint HIP Chief Complaint Hypercalcemia PROLIA Reason for Visit Age related osteopor osis Primary hyperparathyroidism Chief Complaint Hypercalcemia PROLIA C64.2 D41.01 Reason for Visit Age related osteopor osis Primary hyperparathyroidism Chief Complaint Admit Date COUGH, SORE THROAT January 22, 2024 1:45pm BALANCE, RX HERE February 17, 2024 2:00pm n/v/d February 20, 2024 11:43pm RECTAL February 21, 2024 10:22am RECTAL BLEEDING March 16, 2024 8 :47pm RECTAL BLEEDING March 20, 2024 8 :56am GI Bleed March 25, 2024 1 0:59am 1 M FU April 21, 2024 1:29pm COLONIC STRICURE April 30, 2024 2:22pm Reason for Visit Admit Date Acute constipation March 25, 2024 1 0:59am Bright red rectal bleeding March 25, 2024 10:59am Diarrhea March 30, 2024 1 0:26am GI bleed March 30, 2024 1 0:26am Colonic stricture April 21, 2024 1:29pm GI bleed April 21, 2024 1:29pm Chief Complaint Admit Date BALANCE, RX HERE February 17, 2024 2:00pm n/v/d February 20, 2024 11:43pm RECTAL February 21, 2024 10:22am RECTAL BLEEDING March 16, 2024 8 :47pm RECTAL BLEEDING March 20, 2024 8 :56am GI Bleed March 25, 2024 1 0:59am 1 M FU April 21, 2024 1:29pm COLONIC STRICURE April 30, 2024 2:22pm Reason for Visit Admit Date Acute constipation March 25, 2024 1 0:59am Bright red rectal bleeding March 25, 2024 10:59am Diarrhea March 30, 2024 1 0:26am GI bleed March 30, 2024 1 0:26am Colonic stricture April 21, 2024 1:29pm GI bleed April 21, 2024 1:29pm Colonic stricture June 12, 2024 11: 36am GI bleed June 12, 2024 11: 36am Chief Complaint Admit Date RECTAL BLEEDING March 20, 2024 8 :56am GI Bleed March 25, 2024 1 0:59am 1 M FU April 21, 2024 1:29pm COLONIC STRICURE April 30, 2024 2:22pm Prolia - B&B June 24, 2024 3:3 5pm Follow up July 15, 2024 2:55p m Chief Complaint Admit Date Prolia - B&B June 24, 2024 3:3 5pm Follow up July 15, 2024 2:55p m NECK PAIN. RX HERE September 21, 2024 3:00 pm 2 M FU September 23, 2024 2:26 pm Reason for Visit Admit Date Colonic stricture June 12, 2024 11: 36am GI bleed June 12, 2024 11: 36am Colonic stricture July 15, 2024 2:55p m Constipation July 15, 2024 2:55p m Chief Complaint Admit Date Prolia - B&B June 24, 2024 3:3 5pm Follow up July 15, 2024 2:55p m 2 M FU September 23, 2024 2:26 pm NECK PAIN. RX HERE October 12, 2024 3: 00pm Reason for Visit Admit Date Colonic stricture July 15, 2024 2:55p m Constipation July 15, 2024 2:55p m Constipation September 23, 2024 2:26 pm Chief Complaint Admit Date Follow up July 15, 2024 2:55p m 2 M FU September 23, 2024 2:26 pm NECK PAIN. RX HERE October 12, 2024 3: 00pm RIGHT SHOULDER November 09, 2024 2:28pm Room 1 November 09, 2024 2:52pm Reason for Visit Admit Date Colonic stricture July 15, 2024 2:55p m Constipation July 15, 2024 2:55p m Constipation September 23, 2024 2:26 pm Osteoarthritis of right shoulder Septemb 2024 2:28pm Right rotator cuff tendinitis November 09, 2024 2:28pm Family History No Family History Records Found Relationship Condition Age at Onset Recorded Date/T marybel Unknown Family History?No pertinent history Unkno wn June 16, 2017 8:09pm Family History?No pertinent history Unkno wn June 16, 2017 8:09pm Relationship Condition Age at Onset Recorded Date/T marybel father Alcoholism Unknown brother Alcoholism Unknown mother Arthritis Unknown Hypertension Unknown Osteoporosis Unknown Reason for Referral Specialty Diagnoses / Procedures Referred By Contac t Referred To Contact Endocrinology Diagnoses Hypercalcemia Procedures CONSULT TO ENDOCRINOLOGY OFFICE/OUTPATIENT [facility] MDM 60-74 MINUTES Older, Xuan, POTATO PEELER.SNUFF MAKER [address] [place] [address] Referral ID Status Reason Start Date Expiration Date Visits Requested Visits Authorized [id number] Authorized PCP Requested Referral 05/15/2022 05/15/2023 1 1 Specialty Diagnoses / Procedures Referred By Contac t Referred To Contact Gastroenterology Diagnoses Gastrointestinal hemorrhage, unspecified gastrointestinal hemorrhage type Procedures CONSULT TO GASTROENTEROLOGY Femi Baeza MD [address] [place] [address] Referral ID Status Reason Start Date Expiration Date Visits Requested Visits Authorized [id number] Authorized PCP Requested Referral 03/02/2025 1 1 Summary Purpose Additional Source Comments Source Comments (unrecognize d section and content) In the event this informatio n is protected by the Federal Confidentiality of Alcohol and Drug Abuse Patient Records regulations: The Federal rules restrict any use of the information to criminally investigate or prosecute any alcohol or drug abuse patient.[facility] the event this information is protected by the Federal Confidentiality of Alcohol and Drug Abuse Patient Records regulations: The Federal rules restrict any use of the information to criminally investigate or prosecute any alcohol or drug abuse patient.[facility] the event this information is protected by the Federal Confidentiality of Alcohol and Drug Abuse Patient Records regulations: The Federal rules restrict any use of the information to criminally investigate or prosecute any alcohol or drug abuse patient.[facility] the event this information is protected by the Federal Confidentiality of Alcohol and Drug Abuse Patient Records regulations: The Federal rules restrict any use of the information to criminally investigate or prosecute any alcohol or drug abuse patient.[facility] the event this information is protected by the Federal Confidentiality of Alcohol and Drug Abuse Patient Records regulations: The Federal rules restrict any use of the information to criminally investigate or prosecute any alcohol or drug abuse patient.[facility] the event this information is protected by the Federal Confidentiality of Alcohol and Drug Abuse Patient Records regulations: The Federal rules restrict any use of the information to criminally investigate or prosecute any alcohol or drug abuse patient.[facility] the event this information is protected by the Federal Confidentiality of Alcohol and Drug Abuse Patient Records regulations: The Federal rules restrict any use of the information to criminally investigate or prosecute any alcohol or drug abuse patient.[facility] the event this information is protected by the Federal Confidentiality of Alcohol and Drug Abuse Patient Records regulations: The Federal rules restrict any use of the information to criminally investigate or prosecute any alcohol or drug abuse patient.[facility] the event this information is protected by the Federal Confidentiality of Alcohol and Drug Abuse Patient Records regulations: The Federal rules restrict any use of the information to criminally investigate or prosecute any alcohol or drug abuse patient.[facility] the event this information is protected by the Federal Confidentiality of Alcohol and Drug Abuse Patient Records regulations: The Federal rules restrict any use of the information to criminally investigate or prosecute any alcohol or drug abuse patient.[facility] the event this information is protected by the Federal Confidentiality of Alcohol and Drug Abuse Patient Records regulations: The Federal rules restrict any use of the information to criminally investigate or prosecute any alcohol or drug abuse patient.[facility] the event this information is protected by the Federal Confidentiality of Alcohol and Drug Abuse Patient Records regulations: The Federal rules restrict any use of the information to criminally investigate or prosecute any alcohol or drug abuse patient.[facility] the event this information is protected by the Federal Confidentiality of Alcohol and Drug Abuse Patient Records regulations: The Federal rules restrict any use of the information to criminally investigate or prosecute any alcohol or drug abuse patient.[facility] the event this information is protected by the Federal Confidentiality of Alcohol and Drug Abuse Patient Records regulations: The Federal rules restrict any use of the information to criminally investigate or prosecute any alcohol or drug abuse patient.[facility] the event this information is protected by the Federal Confidentiality of Alcohol and Drug Abuse Patient Records regulations: The Federal rules restrict any use of the information to criminally investigate or prosecute any alcohol or drug abuse patient.[facility] the event this information is protected by the Federal Confidentiality of Alcohol and Drug Abuse Patient Records regulations: The Federal rules restrict any use of the information to criminally investigate or prosecute any alcohol or drug abuse patient.[facility] the event this information is protected by the Federal Confidentiality of Alcohol and Drug Abuse Patient Records regulations: The Federal rules restrict any use of the information to criminally investigate or prosecute any alcohol or drug abuse patient.[facility] the event this information is protected by the Federal Confidentiality of Alcohol and Drug Abuse Patient Records regulations: The Federal rules restrict any use of the information to criminally investigate or prosecute any alcohol or drug abuse patient.[facility] the event this information is protected by the Federal Confidentiality of Alcohol and Drug Abuse Patient Records regulations: The Federal rules restrict any use of the information to criminally investigate or prosecute any alcohol or drug abuse patient.[facility] the event this information is protected by the Federal Confidentiality of Alcohol and Drug Abuse Patient Records regulations: The Federal rules restrict any use of the information to criminally investigate or prosecute any alcohol or drug abuse patient.[facility]imaIn the event this information is protected by the Federal Confidentiality of Alcohol and Drug Abuse Patient Records regulations: The Federal rules restrict any use of the information to criminally investigate or prosecute any alcohol or drug abuse patient.[facility]imaIn the event this information is protected by the Federal Confidentiality of Alcohol and Drug Abuse Patient Records regulations: The Federal rules restrict any use of the information to criminally investigate or prosecute any alcohol or drug abuse patient.[facility]imaIn the event this information is protected by the Federal Confidentiality of Alcohol and Drug Abuse Patient Records regulations: The Federal rules restrict any use of the information to criminally investigate or prosecute any alcohol or drug abuse patient.[facility] ClinicIn the event this information is protected by the Federal Confidentiality of Alcohol and Drug Abuse Patient Records regulations: The Federal rules restrict any use of the information to criminally investigate or prosecute any alcohol or drug abuse patient.[facility]imaIn the event this information is protected by the Federal Confidentiality of Alcohol and Drug Abuse Patient Records regulations: The Federal rules restrict any use of the information to criminally investigate or prosecute any alcohol or drug abuse patient.[facility]imaIn the event this information is protected by the Federal Confidentiality of Alcohol and Drug Abuse Patient Records regulations: The Federal rules restrict any use of the information to criminally investigate or prosecute any alcohol or drug abuse patient.[facility]imaIn the event this information is protected by the Federal Confidentiality of Alcohol and Drug Abuse Patient Records regulations: The Federal rules restrict any use of the information to criminally investigate or prosecute any alcohol or drug abuse patient.[facility]imaIn the event this information is protected by the Federal Confidentiality of Alcohol and Drug Abuse Patient Records regulations: The Federal rules restrict any use of the information to criminally investigate or prosecute any alcohol or drug abuse patient.[facility]imaIn the event this information is protected by the Federal Confidentiality of Alcohol and Drug Abuse Patient Records regulations: The Federal rules restrict any use of the information to criminally investigate or prosecute any alcohol or drug abuse patient.[facility]imaIn the event this information is protected by the Federal Confidentiality of Alcohol and Drug Abuse Patient Records regulations: The Federal rules restrict any use of the information to criminally investigate or prosecute any alcohol or drug abuse patient.[facility]imaIn the event this information is protected by the Federal Confidentiality of Alcohol and Drug Abuse Patient Records regulations: The Federal rules restrict any use of the information to criminally investigate or prosecute any alcohol or drug abuse patient.[facility]imaIn the event this information is protected by the Federal Confidentiality of Alcohol and Drug Abuse Patient Records regulations: The Federal rules restrict any use of the information to criminally investigate or prosecute any alcohol or drug abuse patient.[facility]imaIn the event this information is protected by the Federal Confidentiality of Alcohol and Drug Abuse Patient Records regulations: The Federal rules restrict any use of the information to criminally investigate or prosecute any alcohol or drug abuse patient.[facility]imaIn the event this information is protected by the Federal Confidentiality of Alcohol and Drug Abuse Patient Records regulations: The Federal rules restrict any use of the information to criminally investigate or prosecute any alcohol or drug abuse patient.[facility]imaIn the event this information is protected by the Federal Confidentiality of Alcohol and Drug Abuse Patient Records regulations: The Federal rules restrict any use of the information to criminally investigate or prosecute any alcohol or drug abuse patient.[facility]imaIn the event this information is protected by the Federal Confidentiality of Alcohol and Drug Abuse Patient Records regulations: The Federal rules restrict any use of the information to criminally investigate or prosecute any alcohol or drug abuse patient.[facility]imaIn the event this information is protected by the Federal Confidentiality of Alcohol and Drug Abuse Patient Records regulations: The Federal rules restrict any use of the information to criminally investigate or prosecute any alcohol or drug abuse patient.[facility]imaIn the event this information is protected by the Federal Confidentiality of Alcohol and Drug Abuse Patient Records regulations: The Federal rules restrict any use of the information to criminally investigate or prosecute any alcohol or drug abuse patient.[facility]imaIn the event this information is protected by the Federal Confidentiality of Alcohol and Drug Abuse Patient Records regulations: The Federal rules restrict any use of the information to criminally investigate or prosecute any alcohol or drug abuse patient.[facility]imaIn the event this information is protected by the Federal Confidentiality of Alcohol and Drug Abuse Patient Records regulations: The Federal rules restrict any use of the information to criminally investigate or prosecute any alcohol or drug abuse patient.[facility]imaIn the event this information is protected by the Federal Confidentiality of Alcohol and Drug Abuse Patient Records regulations: The Federal rules restrict any use of the information to criminally investigate or prosecute any alcohol or drug abuse patient.[facility]imaIn the event this information is protected by the Federal Confidentiality of Alcohol and Drug Abuse Patient Records regulations: The Federal rules restrict any use of the information to criminally investigate or prosecute any alcohol or drug abuse patient.[facility]imaIn the event this information is protected by the Federal Confidentiality of Alcohol and Drug Abuse Patient Records regulations: The Federal rules restrict any use of the information to criminally investigate or prosecute any alcohol or drug abuse patient.[facility]imaIn the event this information is protected by the Federal Confidentiality of Alcohol and Drug Abuse Patient Records regulations: The Federal rules restrict any use of the information to criminally investigate or prosecute any alcohol or drug abuse patient.[facility]imaIn the event this information is protected by the Federal Confidentiality of Alcohol and Drug Abuse Patient Records regulations: The Federal rules restrict any use of the information to criminally investigate or prosecute any alcohol or drug abuse patient.[facility]imaIn the event this information is protected by the Federal Confidentiality of Alcohol and Drug Abuse Patient Records regulations: The Federal rules restrict any use of the information to criminally investigate or prosecute any alcohol or drug abuse patient.[facility]imaIn the event this information is protected by the Federal Confidentiality of Alcohol and Drug Abuse Patient Records regulations: The Federal rules restrict any use of the information to criminally investigate or prosecute any alcohol or drug abuse patient.[facility]imaIn the event this information is protected by the Federal Confidentiality of Alcohol and Drug Abuse Patient Records regulations: The Federal rules restrict any use of the information to criminally investigate or prosecute any alcohol or drug abuse patient.[facility]imaIn the event this information is protected by the Federal Confidentiality of Alcohol and Drug Abuse Patient Records regulations: The Federal rules restrict any use of the information to criminally investigate or prosecute any alcohol or drug abuse patient.[facility]imaIn the event this information is protected by the Federal Confidentiality of Alcohol and Drug Abuse Patient Records regulations: The Federal rules restrict any use of the information to criminally investigate or prosecute any alcohol or drug abuse patient.[facility]imaIn the event this information is protected by the Federal Confidentiality of Alcohol and Drug Abuse Patient Records regulations: The Federal rules restrict any use of the information to criminally investigate or prosecute any alcohol or drug abuse patient.[facility]imaIn the event this information is protected by the Federal Confidentiality of Alcohol and Drug Abuse Patient Records regulations: The Federal rules restrict any use of the information to criminally investigate or prosecute any alcohol or drug abuse patient.[facility]imaIn the event this information is protected by the Federal Confidentiality of Alcohol and Drug Abuse Patient Records regulations: The Federal rules restrict any use of the information to criminally investigate or prosecute any alcohol or drug abuse patient.[facility]imaIn the event this information is protected by the Federal Confidentiality of Alcohol and Drug Abuse Patient Records regulations: The Federal rules restrict any use of the information to criminally investigate or prosecute any alcohol or drug abuse patient.[facility]imaIn the event this information is protected by the Federal Confidentiality of Alcohol and Drug Abuse Patient Records regulations: The Federal rules restrict any use of the information to criminally investigate or prosecute any alcohol or drug abuse patient.[facility]imaIn the event this information is protected by the Federal Confidentiality of Alcohol and Drug Abuse Patient Records regulations: The Federal rules restrict any use of the information to criminally investigate or prosecute any alcohol or drug abuse patient.[facility]imaIn the event this information is protected by the Federal Confidentiality of Alcohol and Drug Abuse Patient Records regulations: The Federal rules restrict any use of the information to criminally investigate or prosecute any alcohol or drug abuse patient.[facility]imaIn the event this information is protected by the Federal Confidentiality of Alcohol and Drug Abuse Patient Records regulations: The Federal rules restrict any use of the information to criminally investigate or prosecute any alcohol or drug abuse patient.[facility]imaIn the event this information is protected by the Federal Confidentiality of Alcohol and Drug Abuse Patient Records regulations: The Federal rules restrict any use of the information to criminally investigate or prosecute any alcohol or drug abuse patient.[facility] Reason for Visit (unrecogniz ed section and content) Reason Comments ED Follow-up Reason Comments Fax [place]/Bladder US Reason Comments Results from [facility] Reason Onset Date Comments Refill Request 09/13/2021 Reason Onset Date Comments Population Health Navigation Outreach 01/16/2022 [employer] Medicare Reason Comments Medicare Wellness Exam Reason Comments Referral Information Reason Comments Endocrinology Referral Reason Onset Date Comments Refill Request 06/09/2022 Reason Onset Date Comments Population Health Navigation Outreach 09/24/2022 [employer] care gaps Reason Comments UTI Reason Comments Results Reason Onset Date Comments Refill Request 11/16/2022 Reason Comments requesting information on testing done B one Density Reason Onset Date Comments Refill Request 12/08/2022 Reason Comments Covid + on home test Reason Onset Date Comments Population Health Navigation Outreach 02/01/2023 [employer] Care Gaps Reason Comments 2 month f/u Blood pressure Reason Onset Date Comments Refill Request 06/07/2023 Reason Onset Date Comments Refill Request 07/08/2023 Reason Onset Date Comments Refill Request 09/05/2023 Reason Comments Follow Up 4 month follow up Reason Comments shave biopsy Reason Comments UTI "Weeks" c/p abdomina l cramping, burning with urination Reason Onset Date Comments Refill Request 12/08/2023 Reason Onset Date Comments ACM PRINCE RN 01/16/2024 ED Utilizatio n Review per request of payor Reason Comments ER F/U [facility] ER right flank p ain Reason Comments Sore Throat Reason Comments ER F/U Reason Onset Date Comments Refill Request 06/17/2024 Reason Comments F/U 3 Month Reason Comments Headache stiff neck Reason Onset Date Comments Refill Request 07/31/2024 Reason Comments Pain Neck x 6 weeks creat ing headache daily Reason Comments Same Day Appointment fell approx 1.5week ago c/o shoulder pain and bilateral knee pain from fall. Patient is having problems lifting right arm Reason Onset Date Comments Refill Request 09/15/2024 Reason Comments Orders Reason Onset Date Comments Refill Request 10/25/2024 Care Teams (unrecognized sec tion and content) Designer/Writer Relationship Specialty Start Date End Date Femi Baeza MD [address] [place] [address] PCP - General 12/23/01 Designer/Writer Relationship Specialty Start Date End Date Femi Baeza MD [address] [place] [address] [place] [address] PCP - General 12/23/01 Designer/Writer Relationship Specialty Start Date End Date Femi Baeza MD [address] [place] [address] PCP - General 12/23/01 Designer/Writer Relationship Specialty Start Date End Date Femi Baeza MD [address] [place] [address] PCP - General 12/23/01 Designer/Writer Relationship Specialty Start Date End Date Femi Baeza MD [address] [place] [address] PCP - General 12/23/01 Designer/Writer Relationship Specialty Start Date End Date Femi Baeza MD [address] [place] [address] PCP - General 12/23/01 Designer/Writer Relationship Specialty Start Date End Date Femi Baeza MD [facility] [place] [address] PCP - General 12/23/01 Designer/Writer Relationship Specialty Start Date End Date Femi Baeza MD [address] [place] [address] PCP - General 12/23/01 Designer/Writer Relationship Specialty Start Date End Date Femi Baeza MD [address] [place] [address] PCP - General 12/23/01 Designer/Writer Relationship Specialty Start Date End Date eFmi Baeza MD [address] [place] [address] PCP - General 12/23/01 Designer/Writer Relationship Specialty Start Date End Date Femi Baeza MD [address] [place] [address] PCP - General 12/23/01 Team Status: Active Member Role Status Dates Dr. Femi Baeza MD Family Provider Active Dr. Femi Baeza MD Primary Care Provider Active Team Status: Inactive Member Role Status Dates Dr. Femi Baeza MD Primary Care Provider Active Dr. Calvin Andrews MD Emergency Provider Active Designer/Writer Relationship Specialty Start Date End Date Femi Baeza MD [address] [place] [address] PCP - General 12/23/01 Designer/Writer Relationship Specialty Start Date End Date Femi Baeza MD [address] [place] [address] PCP - General 12/23/01 Designer/Writer Relationship Specialty Start Date End Date Femi Baeza MD [address] [place] [address] PCP - General 12/23/01 Designer/Writer Relationship Specialty Start Date End Date Femi Baeza MD [address] [place] [address] PCP - General 12/23/01 Designer/Writer Relationship Specialty Start Date End Date Femi Baeza MD [address] [place] [address] PCP - General 12/23/01 Designer/Writer Relationship Specialty Start Date End Date Femi Baeza MD [address] [place] [address] PCP - General 12/23/01 Team Status: Inactive Member Role Status Dates Dr. Femi Baeza MD Primary Care Provider, Refer ring Provider Active Dr. César Johnson MD Attending Provider Active Team Status: Inactive Member Role Status Dates Dr. Femi Baeza MD Primary Care Provider Active Dr. César Johnson MD Attending Provider, Referring Provi jeevan Active Designer/Writer Relationship Specialty Start Date End Date Femi Baeza MD [address] [place] [address] PCP - General 12/23/01 Designer/Writer Relationship Specialty Start Date End Date Femi Baeza MD [address] [place] [address] PCP - General 12/23/01 Designer/Writer Relationship Specialty Start Date End Date Femi Baeza MD [address] [place] [address] PCP - General 12/23/01 Team Status: Inactive Member Role Status Dates Dr. Femi Baeza MD Primary Care Provider Active Dr. Peewee Nergo MD Attending Provider, Referr ing Provider Active Designer/Writer Relationship Specialty Start Date End Date Femi Baeza MD [address] [place] [address] PCP - General 12/23/01 Designer/Writer Relationship Specialty Start Date End Date Femi Baeza MD [address] [place] [address] PCP - General 12/23/01 Designer/Writer Relationship Specialty Start Date End Date Femi Baeza MD [address] [place] [address] PCP - General 12/23/01 Designer/Writer Relationship Specialty Start Date End Date Femi Baeza MD [address] [place] [address] PCP - General 12/23/01 Designer/Writer Relationship Specialty Start Date End Date Femi Baeza MD [address] [place] [address] PCP - General 12/23/01 Designer/Writer Relationship Specialty Start Date End Date Femi Baeza MD [address] [place] [address] PCP - General 12/23/01 Designer/Writer Relationship Specialty Start Date End Date Femi Baeza MD [address] [place] [address] PCP - General 12/23/01 Designer/Writer Relationship Specialty Start Date End Date Femi Baeza MD [address] [place] [address] PCP - General 12/23/01 Designer/Writer Relationship Specialty Start Date End Date Femi Baeza MD [address] [place] [address] PCP - General 12/23/01 Xuan Brandon, [employer]AT[employer] PEEL[employer].SNUFF MAKER [address] [place] [address] Research Test Engine Operator Internal Medicine 02/10/24 Designer/Writer Relationship Specialty Start Date End Date Femi Baeza MD [address] [place] [address] PCP - General 12/23/01 Xuan Brandon, [employer]NUFF MAKER [address] [place] [address] Research Test Engine Operator Internal Medicine 02/10/24 Designer/Writer Relationship Specialty Start Date End Date Femi Baeza MD [address] [place] [address] PCP - General 12/23/01 Xuan Brandon, [employer]SNUFF MAKER [address] [place] [address] Research Test Engine Operator Internal Medicine 02/10/24 Team Status: Active Member Role Status Dates Dr. Femi Baeza MD Primary Care Provider Active Team Status: Inactive Member Role Status Dates Dr. Femi Baeza MD Primary Care Provider Active Start: January 22, 2024 End: January 22, 2024 Dr. Femi Baeza MD Referring Provider Active Start: January 22, 2024 End: January 22, 2024 Tyrese MONTEMAYOR, PA Attending Provider Active Start: January 22, 2024 End: January 22, 2024 Team Status: Inactive Member Role Status Dates Dr. Femi Baeza MD Primary Care Provider Active Start: February 17, 2024 End: February 17, 2024 Dr. César Johnson MD Attending Provider Active Sta rt: February 17, 2024 End: February 17, 2024 Dr. César Johnson MD Referring Provider Active Sta rt: February 17, 2024 End: February 17, 2024 Team Status: Inactive Member Role Status Dates Dr. Femi Baeza MD Primary Care Provider Active Start: February 20, 2024 End: February 21, 2024 Dr. Reinier Aviles MD Attending Provider Active Start: February 20, 2024 End: February 21, 2024 Dr. Reinier Aviles MD Emergency Provider Active Start: February 20, 2024 End: February 21, 2024 Team Status: Inactive Member Role Status Dates Dr. Femi Baeza MD Primary Care Provider Active Start: February 21, 2024 End: February 21, 2024 Dr. Juan Shaffer DO Attending Provider Active Start: February 21, 2024 End: February 21, 2024 Dr. Juan Shaffer DO Emergency Provider Active Start: February 21, 2024 End: February 21, 2024 Team Status: Inactive Member Role Status Dates Dr. Femi Baeza MD Primary Care Provider Active Start: March 16, 2024 End: March 16, 2024 Dr. Librado Vasquez MD Attending Provider Active S tart: March 16, 2024 End: March 16, 2024 Dr. Librado Vasquez MD Emergency Provider Active S tart: March 16, 2024 End: March 16, 2024 Team Status: Inactive Member Role Status Dates Dr. Femi Baeza MD Primary Care Provider Active Start: March 20, 2024 End: March 20, 2024 Dr. Librado Vasquez MD Attending Provider Active S tart: March 20, 2024 End: March 20, 2024 Dr. Librado Vasquez MD Emergency Provider Active S tart: March 20, 2024 End: March 20, 2024 Team Status: Inactive Member Role Status Dates Dr. Femi Baeza MD Primary Care Provider Active Start: March 25, 2024 End: March 25, 2024 Dr. Femi Baeza MD Referring Provider Active Start: March 25, 2024 End: March 25, 2024 LABINA Leach Attending Provider Active Start: March 25, 2024 End: March 25, 2024 Team Status: Inactive Member Role Status Dates Dr. Femi Baeza MD Primary Care Provider Active Start: March 30, 2024 End: March 30, 2024 Dr. Femi Baeza MD Referring Provider Active Start: March 30, 2024 End: March 30, 2024 Dr. Krzysztof Arroyo DO Attending Provider Active Start: March 30, 2024 End: March 30, 2024 Team Status: Active Member Role Status Dates Dr. Femi Baeza MD Primary Care Provider Active Start: March 30, 2024 Dr. Femi Baeza MD Referring Provider Active Start: March 30, 2024 Dr. Krzysztof Arroyo DO Attending Provider Active Start: March 30, 2024 Dr. Krzysztof Arroyo DO Other Provider Active St art: March 30, 2024 Team Status: Inactive Member Role Status Dates Dr. Femi Baeza MD Primary Care Provider Active Start: April 21, 2024 End: April 21, 2024 Dr. Femi Baeza MD Referring Provider Active Start: April 21, 2024 End: April 21, 2024 ALBINA Leach Attending Provider Active Start: April 21, 2024 End: April 21, 2024 Team Status: Inactive Member Role Status Dates Dr. Femi Baeza MD Primary Care Provider Active Start: April 30, 2024 End: April 30, 2024 ALBINA Leach Attending Provider Active Start: April 30, 2024 End: April 30, 2024 ALBINA Leach Referring Provider Active Start: April 30, 2024 End: April 30, 2024 Team Status: Inactive Member Role Status Dates Dr. Femi Baeza MD Primary Care Provider Active Start: June 12, 2024 End: June 12, 2024 Dr. Femi Baeza MD Referring Provider Active Start: June 12, 2024 End: June 12, 2024 Dr. Krzysztof Arroyo DO Attending Provider Active Start: June 12, 2024 End: June 12, 2024 Team Status: Active Member Role Status Dates Dr. Fmei Baeza MD Primary Care Provider Active Start: June 12, 2024 Dr. Femi Baeza MD Referring Provider Active Start: June 12, 2024 Dr. Krzysztof Arroyo , Attending Provider Active Start: June 12, 2024 Dr. Krzysztof Arroyo DO Other Provider Active St art: June 12, 2024 Designer/Writer Relationship Specialty Start Date End Date Femi Baeza MD [address] [place] [address] PCP - General 12/23/01 Xuan Brandon, [employer] PEELER.SNUFF MAKER [address] [place] [address] Research Test Engine Operator Internal Medicine 02/10/24 Designer/Writer Relationship Specialty Start Date End Date Femi Baeza MD [address] [place] [address] PCP - General 12/23/01 Xuan Brandon, [employer] PEEL[employer].SNUFF MAKER [address] [place] [address] Research Test Engine Operator Internal Medicine 02/10/24 Designer/Writer Relationship Specialty Start Date End Date Femi Baeza MD [address] [place] [address] PCP - General 12/23/01 Xuan Brandon, [employer] PEELER.SNUFF MAKER [address] [place] [address] Research Test Engine Operator Internal Medicine 02/10/24 Team Status: Inactive Member Role Status Dates Dr. Femi Baeza MD Primary Care Provider Active Start: June 24, 2024 End: June 24, 2024 Dr. Femi Baeza MD Referring Provider Active Start: June 24, 2024 End: June 24, 2024 SADIE Roy Attending Provider Active Start: June 24, 2024 End: June 24, 2024 Team Status: Inactive Member Role Status Dates Dr. Femi Baeza MD Primary Care Provider Active Start: July 15, 2024 End: July 15, 2024 Dr. Femi Baeza MD Referring Provider Active Start: July 15, 2024 End: July 15, 2024 ALBINA Leach Attending Provider Active Start: July 15, 2024 End: July 15, 2024 Designer/Writer Relationship Specialty Start Date End Date Femi Baeza MD [address] [place] [address] PCP - General 12/23/01 Xuan Brandon, POTATO PEELER.SNUFF MAKER [address] [place] [address] Research Test Engine Operator Internal Medicine 02/10/24 Designer/Writer Relationship Specialty Start Date End Date Femi Baeza MD [address] [place] [address] PCP - General 12/23/01 Xuan Brandon, POTATO PEELER.SNUFF MAKER [address] [place] [address] Research Test Engine Operator Internal Medicine 02/10/24 Designer/Writer Relationship Specialty Start Date End Date Femi Baeza MD [address] [place] [address] PCP - General 12/23/01 Xuan Brandon, POTATO PEELER.SNUFF MAKER [address] [place] [address] Research Test Engine Operator Internal Medicine 02/10/24 Designer/Writer Relationship Specialty Start Date End Date Femi Baeza MD [address] [place] [address] PCP - General 12/23/01 Xuan Brandon, POTATO PEELER.SNUFF MAKER [address] [place] [address] Research Test Engine Operator Internal Medicine 02/10/24 Designer/Writer Relationship Specialty Start Date End Date Femi Baeza MD [address] [place] [address] PCP - General 12/23/01 Xuan Brandon, POTATO PEELER.SNUFF MAKER [address] [place] [address] Research Test Engine Operator Internal Medicine 02/10/24 Designer/Writer Relationship Specialty Start Date End Date Femi Baeza MD [address] [place] [address] PCP - General 12/23/01 Xuan Brandon, POTATO PEELER.SNUFF MAKER [address] [place] [address] Research Test Engine Operator Internal Medicine 02/10/24 Team Status: Active Member Role/Relationship Status Dates Dr. Femi Baeza MD Primary Care Provider Active Team Status: Inactive Member Role/Relationship Status Dates Dr. Femi Baeza MD Primary Care Provider Active Start: June 12, 2024 End: June 12, 2024 Dr. Femi Baeza MD Referring Provider Active Start: June 12, 2024 End: June 12, 2024 Dr. Krzysztof Arroyo DO Attending Provider Active Start: June 12, 2024 End: June 12, 2024 Team Status: Active Member Role/Relationship Status Dates Dr. Femi Baeza MD Primary Care Provider Active Start: June 12, 2024 Dr. Femi Baeza MD Referring Provider Active Start: June 12, 2024 Dr. Krzysztof Arroyo DO Attending Provider Active Start: June 12, 2024 Dr. Krzysztof Arroyo DO Other Provider Active St art: June 12, 2024 Team Status: Inactive Member Role/Relationship Status Dates Dr. Femi Baeza MD Primary Care Provider Active Start: June 24, 2024 End: June 24, 2024 Dr. Femi Baeza MD Referring Provider Active Start: June 24, 2024 End: June 24, 2024 MADELIN RoyC Attending Provider Active Start: June 24, 2024 End: June 24, 2024 Team Status: Inactive Member Role/Relationship Status Dates Dr. Femi Baeza MD Primary Care Provider Active Start: July 15, 2024 End: July 15, 2024 Dr. Femi Baeza MD Referring Provider Active Start: July 15, 2024 End: July 15, 2024 ALBINA Leach Attending Provider Active Start: July 15, 2024 End: July 15, 2024 Team Status: Active Member Role/Relationship Status Dates Dr. Femi Baeza MD Primary Care Provider Active Start: September 21, 2024 Xuan Brandon NP STOCK TRACER-C Attending Provider Active Start: September 21, 2024 Team Status: Inactive Member Role/Relationship Status Dates Dr. Femi Baeza MD Primary Care Provider Active Start: September 23, 2024 End: September 23, 2024 Dr. Femi Baeza MD Referring Provider Active Start: September 23, 2024 End: September 23, 2024 ALBINA Leach Attending Provider Active Start: September 23, 2024 End: September 23, 2024 Team Status: Inactive Member Role/Relationship Status Dates Dr. Femi Baeza MD Primary Care Provider Active Start: June 24, 2024 End: June 24, 2024 Dr. Femi Baeza MD Referring Provider Active Start: June 24, 2024 End: June 24, 2024 MADELIN RoyC Attending Provider Active Start: June 24, 2024 End: June 24, 2024 Team Status: Inactive Member Role/Relationship Status Dates Dr. Femi Baeza MD Primary Care Provider Active Start: July 15, 2024 End: July 15, 2024 Dr. Femi Baeza MD Referring Provider Active Start: July 15, 2024 End: July 15, 2024 ALIBNA Leach Attending Provider Active Start: July 15, 2024 End: July 15, 2024 Team Status: Inactive Member Role/Relationship Status Dates Dr. Femi Baeza MD Primary Care Provider Active Start: September 23, 2024 End: September 23, 2024 Dr. Femi Baeza MD Referring Provider Active Start: September 23, 2024 End: September 23, 2024 ALBINA Leach Attending Provider Active Start: September 23, 2024 End: September 23, 2024 Team Status: Inactive Member Role/Relationship Status Dates Dr. Femi Baeza MD Primary Care Provider Active Start: October 12, 2024 End: October 12, 2024 Xuan Brandon STOCK TRACER, STOCK TRACER-C Attending Provider Active Start: October 12, 2024 End: October 12, 2024 Designer/Writer Relationship Specialty Start Date End Date Femi Baeza MD [address] [place] [address] PCP - General 12/23/01 Xuan Brandon, POTATO PEELER.SNUFF MAKER [address] [place] [address] Research Test Engine Operator Internal Medicine 02/10/24 Designer/Writer Relationship Specialty Start Date End Date Femi Baeza MD [address] [place] [address] PCP - General 12/23/01 Xuan Brandon, POTATO PEELER.SNUFF MAKER [address] [place] [address] Research Test Engine Operator Internal Medicine 02/10/24 Team Status: Inactive Member Role/Relationship Status Dates Dr. Femi Baeza MD Primary Care Provider Active Start: July 15, 2024 End: July 15, 2024 Dr. Femi Baeza MD Referring Provider Active Start: July 15, 2024 End: July 15, 2024 ALBINA Leach Attending Provider Active Start: July 15, 2024 End: July 15, 2024 Team Status: Inactive Member Role/Relationship Status Dates Dr. Femi Baeza MD Primary Care Provider Active Start: September 23, 2024 End: September 23, 2024 Dr. Femi Baeza MD Referring Provider Active Start: September 23, 2024 End: September 23, 2024 ALBINA Leach Attending Provider Active Start: September 23, 2024 End: September 23, 2024 Team Status: Inactive Member Role/Relationship Status Dates Dr. Femi Baeza MD Primary Care Provider Active Start: October 12, 2024 End: October 12, 2024 Xuan Brandon STOCK TRACER, STOCK TRACER-C Attending Provider Active Start: October 12, 2024 End: October 12, 2024 Team Status: Active Member Role/Relationship Status Dates Dr. Femi Baeza MD Primary Care Provider Active Start: November 09, 2024 Dr. Femi Baeza MD Referring Provider Active Start: November 09, 2024 Dr. Con Luciano DO Attending Provider Active Start: November 09, 2024 Team Status: Inactive Member Role/Relationship Status Dates Dr. Femi Baeza MD Primary Care Provider Active Start: November 09, 2024 End: November 09, 2024 Dr. Derek Rae MD Attending Provider Active S tart: November 09, 2024 End: November 09, 2024 Team Status: Inactive Member Role/Relationship Status Dates Dr. Femi Baeza MD Primary Care Provider Active Start: November 09, 2024 End: November 09, 2024 Dr. Femi Baeza MD Referring Provider Active Start: November 09, 2024 End: November 09, 2024 Dr. Con Luciano DO Attending Provider Active Start: November 09, 2024 End: November 09, 2024 Goals (unrecognized section and content) Goals may be documented in a n alternate sectionGoals may be documented in an alternate sectionGoals may be documented in an alternate sectionGoals may be documented in an alternate sectionGoals may be documented in an alternate sectionGoals may be documented in an alternate sectionGoals may be documented in an alternate sectionGoals may be documented in an alternate sectionGoals may be documented in an alternate section INFORMATION SOURCE (unrecogn ized section and content) DATE CREATED AUTHOR 10/30/2024 [facility] DATE CREATED AUTHOR AUTHOR'S MARIA FERNANDA FORDE 11/11/2024 [facility] FOR RECORDS PERTAINING TO PATIENTS WHO ARE OR HAVE BEEN ENROLLED IN A CHEMICAL DEPENDENCY/SUBSTANCEABUSE PROGRAM, SOME INFORMATION MAY BE OMITTED. This clinical summary was aggregated from multiple sources. Caution should be exercised in using it in the provision of clinical care. This summary normalizes information from multiple sources, and as a consequence, information in this document may materially change the coding, format and clinical context of patient data. In addition, data may be omitted in some cases. CLINICAL DECISIONS SHOULD BE BASED ON THE PRIMARY CLINICAL RECORDS. [facility] [employer] [facility]. provides no warranty or guarantee of the accuracy or completeness of information in this document.
[2024-12-07 22:27] LABS: Magnesium 1.6 mg/dL (1.5-2.2)
[2024-12-07 23:00] VITALS: BP 135/93; PULSE 56; RESP 20; TEMP 36.6; O2SAT 99
[2024-12-07] MEDS: Potassium Chloride Oral Tablet 20 MEQ 40 MEQ PO (23:29)
[2024-12-07] MEDS: Heparin Injection (Vial) 5,000 UNIT/ML VIAL 5000 UNIT SC (23:30)
[2024-12-08] VITALS (7 sets, daily range): BP systolic 140–165; BP diastolic 67–90; PULSE 58–73; RESP 15–18; TEMP 36.5–37.1; O2SAT 93–99; BMI 20.1
[2024-12-08] LABS: Osmolality, Serum 306 mOsm/KG (280-301)
[2024-12-08] MEDS: KCL 40mEq in 0.9% NS 40 MEQ/1,000 ML IV.SOLN 100 MEQ IV (00:05)
--- NOTE | 2024-12-08 00:15 | CT_ITS ---
PROCEDURE: EXTREMITY UPPER WITHOUT CONTRA 12/08/2024 REASON FOR EXAM: EXPECTED TURN ROTATOR CUFF TECHNIQUE: Procedure Code: [id number] Modality: CT Procedure: EXTREMITY UPPER WITHOUT CONTRA Coronal and Sagittal reconstruction series were provided. One or more dose reduction techniques were used (e.g., Automated exposure control, adjustment of the mA and/or kV according to patient size, use of iterative reconstruction technique. FINDINGS: No acute fracture or dislocation. There is a high riding humeral head with severe subacromial space narrowing. The humeral head contacts the inferior surface of the acromion. Additional degenerative changes including marginal osteophytosis and subchondral cyst formation are noted within the humeral head. There is borderline widening of the acromioclavicular joint, measuring 5.4 mm. Grossly, the acromioclavicular ligament appears intact. Additional degenerative changes are noted at the glenohumeral joint including joint space narrowing, subchondral cyst formation, and marginal osteophytosis. Moderate degenerative changes are noted within the visualized cervicothoracic spine including joint space narrowing, small Schmorl's nodes, and marginal osteophytosis. CT/Extremity Upper without Contra IMPRESSION: 1. High-riding humeral head with severe subacromial space narrowing, suggestiv e of a chronic rotator cuff injury. 2. Moderate degenerative changes at the acromioclavicular joint. 3. Borderline widening of the acromioclavicular joint. Reading Location: [id number]
[2024-12-08 05:52] LABS: Hematocrit 35.7 % (37-47); Hemoglobin 12.4 g/dL (12.0-15.0); Immature Granulocytes Count 0.020 X10^3/uL (0.0-0.0); Mean Corp Hgb Conc 34.7 g/dL (32-36); Mean Corpuscular Volume 85.2 fL (81-99); Mean Platelet Vol. 9.4 fl (6.2-12.0); NRBC Flagged by Analyzer 0 % (0-5); Platelet Count 195 K/mm3 (150-450); RBC Distribution Width CV 13.0 % (11.6-14.6); RBC Distribution Width SD 39.7 fl (35.1-43.9); Red Blood Count 4.19 M/mm3 (4.2-5.4); White Blood Count 5.6 K/mm3 (4.4-11.0)
[2024-12-08 06:30] LABS: AST(SGOT) 15 U/L (<=31); Alanine Aminotransfer ALT/SGPT 13 U/L (<=34); Albumin, Serum 4.1 g/dL (3.4-4.8); Alkaline Phosphatase 44 U/L (35-104); Anion Gap 10 (5-15); BUN 11 mg/dL (4-19); BUN/Creat Ratio 20.3 RATIO (10-20); Calcium,Total 9.8 mg/dL (7.6-11.0); Carbon Dioxide 25.4 mmol/L (21.0-32.0); Chloride 99 mmol/L (98-108); Estimated Creatinine Clearance 48.67 ml/min (50-250); Globulin 2.1 g/dL (2.2-4.2); Glucose 97 mg/dL (70-99); Potassium 4.0 mmol/L (3.3-5.1)
--- NOTE | 2024-12-08 07:20 | PN.HOSP_ITS ---
Reason for Visit Chief Complaint: Constipation, Nausea and Generalized Weakness. Subjective Subjective She is feeling little bit stronger and somewhat better today, still has some vague abdominal pain and has had some stool output but not significant amount, still little bit nauseous that this is improving Objective Data Objective Data Vital Signs: Vital Signs Temp Pulse Resp BP Pulse Ox O2 Del Method 97.7 F L 58 L 16 140/77 H 97 Room Air 12/08/24 05:10 12/08/24 05:10 12/08/24 05:10 12/08/24 05:10 12/08/24 05:10 12/08/24 05:10 Oxygen Delivery Method Room Air Weight: 53.2 kg Body Mass Index (BMI) 20.1 Intake & Output: Intake and Output for Last 24 Hours 12/06/24 12/07/24 12/08/24 23:59 23:59 23:59 Intake Total 1000 / 1000 716.67 / 716.67 Output Total 400 / 400 Balance 1000 / 600 316.67 / 316.67 Lab / Micro Data 12/08/24 04:53 12/08/24 04:53 Labs: Laboratory Results - last 24 hr 12/07/24 16:46: WBC 7.0, RBC 4.51, Hgb 13.5, Hct 38.9, MCV 86.3, MCH 29.9, MCHC 34.7, RDW Std Deviation 39.8, RDW Coeff of Sharron 12.7, Plt Count 223, MPV 9.8, Immature Gran % (Auto) 0.100, Neut % (Auto) 63.7, Lymph % (Auto) 12.9 L, Yuba % (Auto) 8.3, Eos % (Auto) 14.4 H, Baso % (Auto) 0.6, Absolute Neuts (auto) 4.5, Absolute Lymphs (auto) 0.90, Nucleated RBC % 0, Differential Comment SCANNED, Platelet Estimate ADEQUATE, Sodium 127 L, Potassium 3.2 L, Chloride 88 L, Carbon Dioxide 25.1, Anion Gap 14, BUN 20 H, Creatinine 0.57 L, Estim Creat Clear Calc 49.22 L, Est GFR (MDRD) Non-Af 93, BUN/Creatinine Ratio 35.4 H, Glucose 128 H, S april Osmolality 306 H, Calcium 10.4, Magnesium 1.6, Total Bilirubin 0.44, AST 18, ALT 16, Alkaline Phosphatase 56, Total Protein 7.0, Albumin 4.5, Globulin 2.4, Albumin/Globulin Ratio 1.9, Lipase 16 12/07/24 16:57: Urine Color Straw, Urine Clarity Clear, Urine pH 7.0, Ur Specific Banco 1.010, Urine Protein 15 H, Urine Glucose (UA) Normal, Urine Ketones Negative, Urine Occult Blood 10 H, Urine Nitrite Negative, Urine Bilirubin Negative, Urine Urobilinogen Normal, Ur Leukocyte Esterase Negative, Urine RBC 0-5 SEEN, Urine WBC 0-5 SEEN, Ur Squamous Epith Cells 0-5 SEEN, Urine Bacteria 0 SEEN, Urine Mucus 0 SEEN 12/08/24 04:53: WBC 5.6, RBC 4.19 L, Hgb 12.4, Hct 35.7 L, MCV 85.2, MCH 29.6, MCHC 34.7, RDW Std Deviation 39.7, RDW Coeff of Sharron 13.0, Plt Count 195, MPV 9.4, Immature Gran % (Auto) 0.400, Neut % (Auto) 60.0, Lymph % (Auto) 25.9, Yuba % (Auto) 13.2 H, Eos % (Auto) 0.0, Baso % (Auto) 0.5, Absolute Neuts (auto) 3.3, Absolute Lymphs (auto) 1.44, Nucleated RBC % 0, Sodium 134, Potassium 4.0, Chloride 99, Carbon Dioxide 25.4, Anion Gap 10, BUN 11, Creatinine 0.55 L, Estim Creat Clear Calc 48.67 L, Est GFR (MDRD) Non-Af 94, BUN/Creatinine Ratio 20.3 H, Glucose 97, Calcium 9.8, Phosphorus 2.1 L, Total Bilirubin 0.36, AST 15, ALT 13, Alkaline Phosphatase 44, Total Protein 6.2, Albumin 4.1, Globulin 2.1 L, Albumin/Globulin Ratio 2.0, TSH 2.570 Radiography Diagnostic Testing: Radiology Impression Abdomen/Pelvis CT 12/07/24 18:10 IMPRESSION: 1. No acute or active inflammatory intra-abdominal pathology identified. 2. Moderate-large colonic stool burden suggesting constipation. 3. No significant change in multiple right renal mass lesions as noted. Recommend follow-up. Reading Location: [facility] Upper Extremity CT 12/08/24 00:15 IMPRESSION: 1. High-riding humeral head with severe subacromial space narrowing, suggestive of a chronic rotator cuff injury. 2. Moderate degenerative changes at the acromioclavicular joint. 3. Borderline widening of the acromioclavicular joint. Reading Location: [facility] Physical Exam Narrative General: Alert, oriented, no apparent distress HEENT: Atraumatic, normocephalic Eyes: Anicteric, normal conjunctiva, extraocular movements grossly intact Neck: Supple Respiratory: Clear to auscultation bilaterally, normal respiratory effort Cardiovascular: Regular rate and rhythm GI: Some vague diffuse tenderness without any rebound, guarding, rigidity Extremities: No edema Musculoskeletal: Moving all extremities Neuro: No overt focal neurological deficits Skin: No rashes appreciated Psych: Cooperative Assessment & Plan Assessment/Plan (1) Generalized weakness: PLAN: Plan 79F with a history of hypertension, constipation, GERD, osteoporosis who presented [facility] ED 12/07/2024 for generalized weakness as well as chronic constipation. In the ED she was found to have a normal white count at 7, hemoglobin 13.5. Sodium was noted to be low at 127 and potassium of 3.2. Liver panel unremarkable and creatinine 0.57. UA not indicative of infection. She had CT abdomen pelvis with contrast which showed moderate to large colonic stool burden suggesting constipation. Hospitalist contacted for admission for hyponatremia and generalized weakness as well as constipation. # Generalized weakness -Suspect in part secondary to hyponatremia and hypokalemia - Underlying electrolyte abnormalities have resolved, patient is beginning to feel better -PT/OT -CM consult -Supportive care - Encourage p.o. intake and will continue to hold hydrochlorothiazide -Will need alternate agent on discharge #Constipation - Moderate to large colonic stool burden noted on abdomen pelvis CT -Patient on scheduled bowel regimen - Had Dulcolax suppository and enema with a little bit of stool output but not significant, patient agreeable to another enema -Continue home Linzess if able, nonformulary so someone may need to bring in for patient if applicable #Hypertension - Continue Cardizem and losartan -Holding hydrochlorothiazide # Hyponatremia-resolved - Sodium 127 on presentation, patient is typically within the normal range but occasionally is low 130s, this a.m. sodium improved to 134 with cessation of hydrochlorothiazide and supportive care -Will not resume hydrochlorothiazide on discharge # Hypokalemia–resolved - Potassium 3.2 on presentation -Pt received oral replacement hydrochlorothiazide stopped, this is resolved -K this AM 4 #R renal mass lesions - Appreciated on CT scan with no significant changes - Does have history of left nephrectomy from [facility] -Urology to follow with patient on an outpatient basis #R shoulder pain - CT scan shows findings suggestive of chronic rotator cuff injury - Recommend outpatient follow-up with Ortho #DVT ppx: Heparin subcu Kelle Davila MD Charges/Coding Visit Charges Inpatient E&M: 34108 Subs Hosp L2
[2024-12-08] MEDS: Sodium Phosphate/Na Biphos 15 MMOL in 0.9% Normal Saline (250mL Bag) 250 ML 125 MMOL IV (08:19)
[2024-12-08] MEDS: Lactobacillis Acidophilus 1 CAP PO (09:47)
[2024-12-08 09:49] LABS: Osmolality, Urine 306 mOsm/KG
[2024-12-08] MEDS: Cholecalciferol (VIT D3) 25 MCG TABLET (1,000 UNITS) 50 MCG PO (09:49)
[2024-12-08] MEDS: Heparin Injection (Vial) 5,000 UNIT/ML VIAL 5000 UNIT SC ×2 (09:52→21:55)
[2024-12-08] MEDS: Senna/Docusate Sodium 1 Tablet 2 TABLET PO ×2 (09:52→21:55)
--- NOTE | 2024-12-08 10:35 | CASEMGMT ---
WALTER BERRIOS Face to Face with patient for initial transition planning/care coordination assessment. RN CM introduced self and role at [facility]. Patient lying in bed, alert and oriented. Patient willing to participate in assessment and is able to answer all questions appropriately. Care providers, pharmacy, and demographics verified. Strata: 2 PCP: Aryan Specialists: , can line operator; Sruthi, urologist; Santos, ENT; lisa Luciano Preferred Pharmacy: [facility] Insurance: [employer] Prescription Benefit: yes Living Will/HPOA: yes, son Quintin Andre LNOK: sons Living Arrangements: Patient lives with son in a mobile home with 4 steps and railing to enter the home. Patient states she is independent at home. Transportation: sons DME/HHC: Patient has cane, walker, raised toilet, and grab bars at home. No previous HHC or SNF. Patient wishes to discharge home, denies need for home health at this time. Patient states he has no further needs or concerns at this time. CM to follow for discharge planning needs that may arise. Disposition Plan: Patient to discharge home with family support and follow-up plans in place. Marina CUMMINS, RN, CM
--- NOTE | 2024-12-08 14:31 | CHAPLAIN ---
Type of Pastoral Visit _x__ Initial Visit ___ Follow-up Visit ___ On-call Visit ___ General Patient Visit ___ Spiritual Assessment ___ Family Conference ___ Bereavement ___ Rapid Response ___ Code Blue ___ Other (describe below) Pastoral Care Referral From _x__ Patient ___ Family ___ Nurse ___ Physician ___ Manager Social Responsibility ___ Global Professional ___ Other (describe below) Sacrament/Intervention _x__ Active listening ___ Anointing ___ Restorationism ___ Bereavement ___ Communion _x__ Analia exploration ___ ___ Life review _x__ Prayer ___ Reconciliation ___ Sacrament of Sick _x__ Supportive presence ___ Wedding ___ Other (describe below) Pastoral Comments patient acknowledges that her injury would normally require some surgery but that her health status does not warrant an attempt of surgery; pt is asked about her feelings and how she is handling this news and health issue; pt also speaks of sons that live with her and their needs; pt has had a strong connection to a zoroastrianism but has not had that in more recent years; pt welcomes presence and prayer for support today; pt says "It is just enough that you came to visit my today"
[2024-12-08] MEDS: LINACLOTIDE 145 MCG CAPSULE PO (15:32)
[2024-12-08] MEDS: 0.9% Saline Lock 10 ML Syringe IV (20:07)
[2024-12-09 03:30] VITALS: BP 121/60; PULSE 53; RESP 14; TEMP 37; O2SAT 95
[2024-12-09 04:12] VITALS: BMI 21.2
[2024-12-09 06:26] LABS: Anion Gap 10 (5-15); BUN 7 mg/dL (4-19); BUN/Creat Ratio 13.1 RATIO (10-20); Calcium,Total 9.4 mg/dL (7.6-11.0); Carbon Dioxide 25.7 mmol/L (21.0-32.0); Chloride 98 mmol/L (98-108); Estimated Creatinine Clearance 50.05 ml/min (50-250); Glucose 93 mg/dL (70-99); Potassium 3.5 mmol/L (3.3-5.1)
[2024-12-09] MEDS: Lactobacillis Acidophilus 1 CAP PO (08:35)
[2024-12-09] MEDS: LINACLOTIDE 145 MCG CAPSULE PO (08:35)
[2024-12-09] MEDS: Senna/Docusate Sodium 1 Tablet 2 TABLET PO (08:36)
[2024-12-09] MEDS: Cholecalciferol (VIT D3) 25 MCG TABLET (1,000 UNITS) 50 MCG PO (08:36)
[2024-12-09] MEDS: Na Biphos/Potassium Phosphate PACKET 1 PACKET PO (08:43)
[2024-12-09 10:05] VITALS: BP 123/62; PULSE 64; RESP 18; TEMP 36.5; O2SAT 99
[2024-12-09] MEDS: Fluticasone 0.05% 1 SPRAY NASAL.SRY NASAL (10:05)
[2024-12-09] MEDS: Heparin Injection (Vial) 5,000 UNIT/ML VIAL 5000 UNIT SC (10:06)
[2024-12-09] MEDS: CARBOXYMETHYLCELLULOSE SODIUM 15 ML OPHTH DROPS EACH EYE (13:58)
--- NOTE | 2024-12-09 14:36 | DCINST_ITS ---
Discharge Instructions DC O2, CPAP, BIPAP needs Home O2 Discharge instructions: No Dressing / Incision Discharge Activity: - (Increase activity as tolerated) Follow Up Care Test Results: Test results from this visit will be discussed in further detail at your follow- up appointment, if applicable. Discharge Plan Admission Admit Date/Time: 12/07/24 21:50 Primary Reason for Your Visit: Generalized weakness Attending Provider: Kelle Davila Primary Care Provider: Femi Baeza Consulting Providers: Ranjeet Aldana; Peewee Negro Instructions Patient Instructions: Treating Constipation, ED Constipation (Adult) Additional Instructions / Restrictions: DISCHARGE INSTRUCTIONS PLEASE READ *Please take this with you to your next doctors appointment* - Your hydrochlorothiazide has been held, this may have caused or contributed to your low sodium and potassium on presentation which can worsen weakness - Please continue your bowel regimen and it is advised to follow-up with your finance business partner upon discharge for continued management of your constipation -Please follow-up with Dr. Negro for your kidneys upon discharge. Please call their office to schedule hospital follow-up appointment upon discharge. -Please call your primary care provider's office upon discharge to schedule a hospital follow up within 1 week. -For any concerning signs or symptoms please call 911 or proceed to the nearest emergency department Discharge Orders/Prescriptions Prescriptions: Continued omeprazole 40 mg capsule,delayed release(DR/EC) 40 mg PO DAILY acetaminophen [Tylenol Extra Strength] 500 mg tablet 500 mg PO Q6H PRN (Reason: pain) cetirizine 5 mg tablet 5 mg PO DAILY PRN (Reason: allergy symptoms) fluticasone propionate 50 mcg/actuation spray,suspension 1 spray intranasal DAILY PRN (Reason: allergy symptoms) Rx Instructions: administer into each nostril Probiotic Digestive Care 20 billion cell capsule 1 cell PO DAILY oxybutynin chloride 5 MG tablet 5 mg PO BID cholecalciferol (vitamin D3) [Vitamin D3] 1,000 UNIT tablet 2,000 unit PO DAILY diltiazem HCl 180 mg capsule,extended release 24 hr 360 mg PO DAILY lorazepam 0.5 mg tablet 0.5 mg PO DAILY losartan 50 mg tablet 50 mg PO BID ondansetron 8 mg tablet,disintegrating 8 mg PO Q8H PRN (Reason: nausea and vomiting) Qty: 15 0RF fexofenadine [Louisa Allergy] 180 mg tablet 180 mg PO DAILY Clear Fiber 3 gram/4 gram powder 3 g PO DAILY Senokot Extra Strength 17.2 mg tablet 17.2 mg PO DAILY Senokot Extra Strength 17.2 mg tablet 34.4 mg PO QHS olopatadine [Pataday Once Daily Relief] 0.2 % drops 1 drp EACH EYE DAILY Prolia 60 mg/mL syringe 60 mg subcut [id number] Qty: 1 1RF Linzess 145 mcg capsule 145 mcg PO QAM Qty: 30 2RF lactulose 10 gram/15 mL solution 10 g PO TID Qty: 1200 1RF docusate sodium 100 mg capsule 100 mg PO TID Qty: 90 2RF Discontinued hydrochlorothiazide 50 mg tablet 50 mg PO DAILY Referrals / Follow Up: Peewee Negro MD [Med Staff - Active Staff, Urology] - In 1 Week Referral Note: Please call to schedule the appointment day of discharge for kidney masses. Femi Baeza MD [Primary Care Provider, Internal Medicine] Zonia Lawrence PA [Med Staff - Adv Practice Prof, Gastroenterology] Referral Note: Please follow-up with gastroenterology upon discharge for continued management of your chronic constipation Disposition Disposition (needs filled in before D/C Order can be placed): Home, Self Care
--- NOTE | 2024-12-09 14:39 | PCM.DC.SUM ---
Providers Date of Admission: 12/07/24 Date of Discharge: 12/09/24 Primary Care Physician: Dr. Femi Baeza MD Consultations 12/07/24 23:19 Consult: Urology Routine Consulting Provider: Peewee Negro Reason for Consult: kidney masses EMERGENT Consult: No MD Notified: Yes Date Notified: 12/08/24 Time Notified: 08:41 Method of Notification: Verbal Reason For Visit: HYPONATREMIA, HYPOKALEMIA, weakness Diagnosis Discharge Diagnosis (1) Generalized weakness: Status: Acute Code(s): R53.1 - Weakness Plan # Generalized weakness 2/2 hyponatremia and hypokalemia–resolved # Chronic constipation #Hypertension # Hyponatremia-resolved # Hypokalemia–resolved #R renal mass lesions #R shoulder pain 2/2 chronic rotator cuff injury Medications at Discharge Home Medications cholecalciferol (vitamin D3) 25 mcg (1,000 unit) tablet (Vitamin D3) 2,000 unit PO DAILY SUPPLEMENT 12/26/15 oxybutynin chloride 5 mg tablet 5 mg PO BID BLADDER 12/26/15 diltiazem HCl 180 mg capsule,24 hr,extended release 360 mg PO DAILY htn 09/08/20 lorazepam 0.5 mg tablet 0.5 mg PO DAILY ANXIETY 09/08/20 acetaminophen 500 mg tablet (Tylenol Extra Strength) 500 mg PO Q6H PRN pain 08/23/22 cetirizine 5 mg tablet 5 mg PO DAILY PRN allergy symptoms 08/23/22 fluticasone propionate 50 mcg/actuation nasal spray,suspension 1 spray intranasal DAILY PRN allergy symptoms 08/23/22 omeprazole 40 mg capsule,delayed release 40 mg PO DAILY GERD 08/23/22 denosumab 60 mg/mL subcutaneous syringe (Prolia) 60 mg subcut [id number] OSTEOPOROSIS #1 mL 10/03/22 Lactobacillus rhamnosus GG 20 billion cell capsule (Probiotic Digestive Care) 1 cell PO DAILY GUT HEALTH 12/16/23 ondansetron 8 mg disintegrating tablet 8 mg PO Q8H PRN nausea and vomiting #15 tabs 02/21/24 losartan 50 mg tablet 50 mg PO BID HTN 06/08/24 linaclotide 145 mcg capsule (Linzess) 145 mcg PO QAM IBS #30 caps 11/09/24 lactulose 10 gram/15 mL oral solution 10 g (15 mL) PO TID CONSTIPATION #1,200 mL 11/13/24 dextrin 3 gram/4 gram oral powder (Clear Fiber) 3 g PO DAILY constipation 12/07/24 fexofenadine 180 mg tablet (Louisa Allergy) 180 mg PO DAILY ALLERGY SYMPTOMS 12/07/24 olopatadine 0.2 % eye drops (Pataday Once Daily Relief) 1 drp EACH EYE DAILY allergies 12/07/24 sennosides 17.2 mg tablet (Senokot Extra Strength) 17.2 mg PO DAILY constipation 12/07/24 sennosides 17.2 mg tablet (Senokot Extra Strength) 34.4 mg PO QHS constipation 12/07/24 docusate sodium 100 mg capsule 100 mg PO TID constipation #90 caps 12/08/24 Hospital Course Summary of Care Provided Minutes Spent on Discharge: 24 Hospital Course: 79F with a history of hypertension, constipation, GERD, osteoporosis who presented [facility] ED 12/07/2024 for generalized weakness as well as chronic constipation. In the ED she was found to have a normal white count at 7, hemoglobin 13.5. Sodium was noted to be low at 127 and potassium of 3.2. Liver panel unremarkable and creatinine 0.57. UA not indicative of infection. She had CT abdomen pelvis with contrast which showed moderate to large colonic stool burden suggesting constipation. Hospitalist contacted for admission for hyponatremia and generalized weakness as well as constipation. She had her bowel regimen escalated and was given IV fluids and hydrochlorothiazide was discontinued, electrolyte abnormalities corrected and patient felt much better, did have some stool output and had decreased nausea and was tolerating p.o., has some chronic abdominal pain which was unchanged, given this is a chronic problem and she follows with GI and is now tolerating p.o. and feeling better discussed discharge and patient comfortable with that. No new or acute complaints on day of discharge. Discharge instructions as follows: - Your hydrochlorothiazide has been held, this may have caused or contributed to your low sodium and potassium on presentation which can worsen weakness - Please continue your bowel regimen and it is advised to follow-up with your manager editorial upon discharge for continued management of your constipation -Please follow-up with Dr. Negro for your kidneys upon discharge. Please call their office to schedule hospital follow-up appointment upon discharge. -Please call your primary care provider's office upon discharge to schedule a hospital follow up within 1 week. -For any concerning signs or symptoms please call 911 or proceed to the nearest emergency department Physical Exam Narrative General: Alert, no apparent distress HEENT: Atraumatic, normocephalic Eyes: Anicteric, normal conjunctiva, extraocular movements grossly intact Neck: Supple Respiratory: Clear to auscultation bilaterally, normal respiratory effort Cardiovascular: Regular rate and rhythm GI: Some vague diffuse tenderness again without any rebound, guarding, rigidity Extremities: No edema Musculoskeletal: Moving all extremities Neuro: No overt focal neurological deficits Skin: No rashes appreciated Psych: Cooperative Medical Records Data Medical Nutrition Assessment Dietitian: Malnutrition Criteria Met Start: 12/08/24 17:18 Freq: Status: Active Protocol: Document 12/08/24 17:18 RMA (Rec: 12/08/24 17:19 RMA [id number]) Nutrition Malnutrition Evidence of Yes Malnutrition Exists Malnutrition (severe Chronic ): Evidenced By Suboptimal Energy Intake (Severe),Weight Loss (Severe), Physical Changes (Moderate) Clinical Problem Chronic Disease or Condition Related Malnutrition Etiology Severe protein-calorie malnutrition in the context of chronic disease related to inadequate oral/energy intake, debility and weakness Signs/Symptoms as evidenced by unintentional weight loss ~19% x 11 months, BMI 20.1, oral intake meeting less than 50% estimated nutrition needs x past 2 months and +NFPE with moderate muscle wasting/fat depletion in the clavicle, arms, legs and orbitals. Status Active Problem Recommendation Dietitian Recommend advance diet as tolerated to liberal Regular. Recommendations/ Offer ONS as diet advanced Ensure Plus HP or Glucerna Changes Shake if pt refuses Ensure Plus HP. Added sugar-free jello to meals per pt request; suspect disordered eating pattern as blood glucose is 97 and no noted history of DM---pt seems overly consumed about not consuming sugar. Weight / BMI Weight Weight: 56.1 kg Body Mass Index (BMI) 21.2 ABG / Lab / Microbiology Data 12/08/24 04:53 12/09/24 04:57 Laboratory: Laboratory Results - last 24 hr 12/09/24 04:57: Sodium 135, Potassium 3.5, Chloride 98, Carbon Dioxide 25.7, Anion Gap 10, BUN 7, Creatinine 0.52 L, Estim Creat Clear Calc 50.05, Est GFR (MDRD) Non-Af 95, BUN/Creatinine Ratio 13.1, Glucose 93, Calcium 9.4, Phosphorus 2.1 L D/C Instructions DC O2, CPAP, BIPAP Needs Home O2 Discharge instructions: No Meaningful Use Info Meaningful Use Meaningful Use Diagnoses (Choose all that apply): None applicable Discharge Plan Admission Admit Date/Time: 12/07/24 21:50 Primary Reason for Your Visit: Generalized weakness Attending Provider: Kelle Davila Primary Care Provider: Femi Baeza Consulting Providers: Ranjeet Aldana; Peewee Negro Instructions Patient Instructions: Treating Constipation, ED Constipation (Adult) Additional Instructions / Restrictions: DISCHARGE INSTRUCTIONS PLEASE READ *Please take this with you to your next doctors appointment* - Your hydrochlorothiazide has been held, this may have caused or contributed to your low sodium and potassium on presentation which can worsen weakness - Please continue your bowel regimen and it is advised to follow-up with your manager editorial upon discharge for continued management of your constipation -Please follow-up with Dr. Negro for your kidneys upon discharge. Please call their office to schedule hospital follow-up appointment upon discharge. -Please call your primary care provider's office upon discharge to schedule a hospital follow up within 1 week. -For any concerning signs or symptoms please call 911 or proceed to the nearest emergency department Discharge Orders/Prescriptions Prescriptions: Continued omeprazole 40 mg capsule,delayed release(DR/EC) 40 mg PO DAILY acetaminophen [Tylenol Extra Strength] 500 mg tablet 500 mg PO Q6H PRN (Reason: pain) cetirizine 5 mg tablet 5 mg PO DAILY PRN (Reason: allergy symptoms) fluticasone propionate 50 mcg/actuation spray,suspension 1 spray intranasal DAILY PRN (Reason: allergy symptoms) Rx Instructions: administer into each nostril Probiotic Digestive Care 20 billion cell capsule 1 cell PO DAILY oxybutynin chloride 5 MG tablet 5 mg PO BID cholecalciferol (vitamin D3) [Vitamin D3] 1,000 UNIT tablet 2,000 unit PO DAILY diltiazem HCl 180 mg capsule,extended release 24 hr 360 mg PO DAILY lorazepam 0.5 mg tablet 0.5 mg PO DAILY losartan 50 mg tablet 50 mg PO BID ondansetron 8 mg tablet,disintegrating 8 mg PO Q8H PRN (Reason: nausea and vomiting) Qty: 15 0RF fexofenadine [Louisa Allergy] 180 mg tablet 180 mg PO DAILY Clear Fiber 3 gram/4 gram powder 3 g PO DAILY Senokot Extra Strength 17.2 mg tablet 17.2 mg PO DAILY Senokot Extra Strength 17.2 mg tablet 34.4 mg PO QHS olopatadine [Pataday Once Daily Relief] 0.2 % drops 1 drp EACH EYE DAILY Prolia 60 mg/mL syringe 60 mg subcut [id number] Qty: 1 1RF Linzess 145 mcg capsule 145 mcg PO QAM Qty: 30 2RF lactulose 10 gram/15 mL solution 10 g PO TID Qty: 1200 1RF docusate sodium 100 mg capsule 100 mg PO TID Qty: 90 2RF Discontinued hydrochlorothiazide 50 mg tablet 50 mg PO DAILY Referrals / Follow Up: Peewee Negro MD [Med Staff - Active Staff, Urology] - In 1 Week Referral Note: Please call to schedule the appointment day after discharge for kidney masses. Quenching Machine Operator attempted to call but the office closed early. Femi Baeza MD [Primary Care Provider, Internal Medicine] Zonia Lawrence PA [Med Staff - Adv Practice Prof, Gastroenterology] Referral Note: Please follow-up with gastroenterology upon discharge for continued management of your chronic constipation Disposition Disposition (needs filled in before D/C Order can be placed): Home, Self Care Charges/Coding Visit Charges Inpatient E&M: 80595 Disch Hosp
--- NOTE | 2024-12-09 14:43 | PHA.DC_ITS ---
Pharmacy [facility] Med Reconciliation Pharmacy Service has performed discharge medication reconciliation for this patient. The patient's discharge medication list was reviewed for discrepancies and discrepancies were resolved. Medications at Discharge Home Medications cholecalciferol (vitamin D3) 25 mcg (1,000 unit) tablet (Vitamin D3) 2,000 unit PO DAILY SUPPLEMENT 12/26/15 oxybutynin chloride 5 mg tablet 5 mg PO BID BLADDER 12/26/15 diltiazem HCl 180 mg capsule,24 hr,extended release 360 mg PO DAILY htn 09/08/20 lorazepam 0.5 mg tablet 0.5 mg PO DAILY ANXIETY 09/08/20 acetaminophen 500 mg tablet (Tylenol Extra Strength) 500 mg PO Q6H PRN pain 08/23/22 cetirizine 5 mg tablet 5 mg PO DAILY PRN allergy symptoms 08/23/22 fluticasone propionate 50 mcg/actuation nasal spray,suspension 1 spray intranasal DAILY PRN allergy symptoms 08/23/22 omeprazole 40 mg capsule,delayed release 40 mg PO DAILY GERD 08/23/22 denosumab 60 mg/mL subcutaneous syringe (Prolia) 60 mg subcut [id number] OSTEOPOROSIS #1 mL 10/03/22 Lactobacillus rhamnosus GG 20 billion cell capsule (Probiotic Digestive Care) 1 cell PO DAILY GUT HEALTH 12/16/23 ondansetron 8 mg disintegrating tablet 8 mg PO Q8H PRN nausea and vomiting #15 tabs 02/21/24 losartan 50 mg tablet 50 mg PO BID HTN 06/08/24 linaclotide 145 mcg capsule (Linzess) 145 mcg PO QAM IBS #30 caps 11/09/24 lactulose 10 gram/15 mL oral solution 10 g (15 mL) PO TID CONSTIPATION #1,200 mL 11/13/24 dextrin 3 gram/4 gram oral powder (Clear Fiber) 3 g PO DAILY constipation 12/07/24 fexofenadine 180 mg tablet (Louisa Allergy) 180 mg PO DAILY ALLERGY SYMPTOMS 12/07/24 olopatadine 0.2 % eye drops (Pataday Once Daily Relief) 1 drp EACH EYE DAILY all ergies 12/07/24 sennosides 17.2 mg tablet (Senokot Extra Strength) 17.2 mg PO DAILY constipation 12/07/24 sennosides 17.2 mg tablet (Senokot Extra Strength) 34.4 mg PO QHS constipation 12/07/24 docusate sodium 100 mg capsule 100 mg PO TID constipation #90 caps 12/08/24
[2024-12-09 15:55] VITALS: BP 126/65; PULSE 66; RESP 16; TEMP 37.2; O2SAT 98
== END 2024-12-09 16:45 | disposition home or self-care (01) | DRG 640 ==
LOC: ED 21:20 → PCU 21:58
PROVIDERS: Admitting Provider Internal Medicine; Emergency Provider Emergency Medicine; PCP Internal Medicine; Visit Provider Internal Medicine
DX: E87.1 Hypo-osmolality and hyponatremia (principal); E43 Unspecified severe protein-calorie malnutrition; I10 Essential (primary) hypertension; E21.0 Primary hyperparathyroidism; M54.16 Radiculopathy, lumbar region; F41.8 Other specified anxiety disorders; E87.6 Hypokalemia; M41.86 Other forms of scoliosis, lumbar region; K21.9 Gastro-esophageal reflux disease without esophagitis; J30.2 Other seasonal allergic rhinitis; K59.09 Other constipation; M25.511 Pain in right shoulder; Z79.899 Other long term (current) drug therapy; M81.0 Age-related osteoporosis without current pathological fracture; Z87.891 Personal history of nicotine dependence; N28.89 Other specified disorders of kidney and ureter; T50.905A Adverse effect of unspecified drugs, medicaments and biological substances, initial encounter; Z98.51 Tubal ligation status; Z90.49 Acquired absence of other specified parts of digestive tract; Z85.528 Personal history of other malignant neoplasm of kidney; Z90.5 Acquired absence of kidney; N32.81 Overactive bladder; Z68.20 Body mass index [BMI] 20.0-20.9, adult
CPT/HCPCS: 36415; 73200; 74177; 80048; 80053; 81001; 83690; 83735; 83930; 83935; 84100; 84443; 85025; 94668; 97161; 97166; 97802; 99284; Q9967; A4216; J2405

== ENCOUNTER 2024-12-18 18:19 | Emergency (ER) | payer MEDICARE, SELFPAY ==
[2024-12-18 18:20] VITALS: BP 164/78; PULSE 70; RESP 16; TEMP 36.9; O2SAT 100
--- OUTSIDE RECORDS SUMMARY | 2024-12-18 19:12 | XMS RPT_ITS | CCD ---
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 Femi Baeza Primary Care Provider Dr. Femi Baeza Referring Provider Dr. César Johnson Attending Provider Femi Baeza MD Primary Care Provider Femi Baeza MD Primary Care Provider Abi WASTE RECYCLER.ELECTRONIC WARFARE TECHNICAL, Xuan M Unavailable Dr. Femi Baeza MD Primary Care Provider Aryan SMITH, Dr. Kahn Referring Provider Tyrese Carty Attending Provider Dr. César Johnson MD Attending Provider Dr. César Johnson MD Referring Provider Dr. Reinier Aviles MD Attending Provider Dr. Reinier Aviles MD Emergency Provider Dr. Juan Shaffer DO Attending Provider Dr. Juan Shaffer DO Emergency Provider Dr. Librado Vasquez MD Attending Provider Dr. Librado Vasquez MD Emergency Provider [phone] Zonia Biggs Attending Provider Dr. Krzysztof Arroyo DO Attending Provider Dr. Krzysztof Arroyo DO Other Provider Zonia Biggs Referring Provider Aryan SMITH, Dr. Kahn Primary Care Provider Aryan SMITH, Dr. Kahn Referring Provider Aryan SMITH, Dr. Kahn Primary Care Provider Pedro SMITH, Dr. Pavon Attending Provider [phone] Pedro SMITH, Dr. Pavon Emergency Provider [phone] [employer] TRAVEL TICKETING REVIEWER-[place] Attending Provider Aryan SMITH, Dr. Kahn Primary Care Provider Aryan SMITH, Dr. Kahn Referring Provider Dr. Krzysztof Arroyo DO Attending Provider Cruz HAWKINS, Dr. Blankenship Other Provider Zonia Biggs Attending Provider Abi TRAVEL TICKETING REVIEWER-C, Xuan Attending Provider Aryan SMITH, Dr. Kahn Primary Care Provider Aryan SMITH, Dr. Kahn Referring Provider Abi TRAVEL TICKETING REVIEWER-C, Xuan Attending Provider FEMI BAEZA Primary Care [...] Provider Aryan SMITH, Dr. Kahn Referring Provider Mustapha HAWKINS, Dr. Andujar Attending Provider Butch SMITH, Dr. Reed Attending Provider Aryan SMITH, Dr. Kahn Primary Care Physician Aryan SMITH, Dr. Kahn Referring Provider Zonia Biggs Attending Physician Abi TRAVEL TICKETING REVIEWER-C, Xuan Attending Physician Mustapha HAWKINS, Dr. Andujar Attending Physician Butch SMITH, Dr. Reed Attending Physician ShafferDr. Juan workman DO Emergency Department Physic flash de Artis DO, Dr. Pollack Admitting Physician Mar vailable de Artis DO, Dr. Pollack Attending Physician Mar vailable de Artis DO, Dr. Pollack Nurse Practitioner Unav ailable Giovanni SMITH, Dr. Nina Attending Physician Sruthi SMITH, Dr. Peewee Serrano Nurse Practitioner Giovanni SMITH, Dr. Nina Nurse Practitioner Zonia Lawrence Attending Unavailable Femi Baeza Referring Unavailable Baeza, Femi Primary Care Unavailable Krzysztof Arroyo Attending Unavailable Krzysztof Arroyo Consulting Unavailable Aryan, Femi Referring Unavailable Baeza, Femi Primary Care Unavailable Friend, Krzysztof Attending Unavailable Friend, Krzysztof Consulting Unavailable Aryan, Femi Referring Unavailable Aryan, Femi Primary Care Unavailable de Ranjeet Wisdom Consulting Unavailable de Ranjeet Wisdom Admitting Unavailable Ranjeet Aldana Attending Unavailable Baeza, Femi Primary Care Unavailable Baeza, Femi Primary Care Unavailable Reinier Aviles Attending Unavailable Juan Shaffer Attending Unavailable Baeza, Femi Primary Care Unavailable Xuan Brandon NP Attending Unavailable Baeza, Femi Primary Care Unavailable Baeza, Femi Primary Care Unavailable Baeza, Femi Referring Unavailable Con Lucaino Attending Unavailable Baeza, Femi Primary Care Unavailable César Johnson Attending Unavailable Kelle Davila Attending Unavailable Peewee Negro Consulting Unavailable Kelle Davila Consulting Unavailable Nola Alfaro Attending Unavailable Baeza, Femi Referring Unavailable Baeza, Femi Primary Care Unavailable Zonia Lawrence Attending Unavailable Baeza, Femi Referring Unavailable Baeza, Femi Primary Care Unavailable Howard, Zonia Referring Unavailable Zonia Lawrence Attending Unavailable Baeza, Femi Primary Care Unavailable Baeza, Femi Primary Care Unavailable César Johnson Attending Unavailable César Johnson Referring Unavailable Baeza, Femi Primary Care Unavailable Librado Vasquez Attending Unavailable Baeza, Femi Primary Care Unavailable Librado Vasquez Attending Unavailable Ranjeet Aldana Consulting Unavailable Ranjeet Aldana Admitting Unavailable Baeza, Femi Primary Care Unavailable Kelle Davila Attending Unavailable Peewee Negro Consulting Unavailable Baeza, Femi Primary Care Unavailable Derek Rae Attending Unavailable Krzysztof Arroyo Attending Unavailable Baeza, Femi Referring Unavailable Baeza, Femi Primary Care Unavailable Baeza, Femi Primary Care Unavailable Calvin Andrews Attending Unavailable Zonia Lawrence Attending Unavailable Baeza, Femi Referring Unavailable Baeza, Femi Primary Care Unavailable Baeza, Femi Primary Care Unavailable Baeza, Femi Referring Unavailable Tyrese Carty Attending Unavailable Zonia Lawrence Attending Unavailable Baeza, Femi Primary Care Unavailable Baeza, Femi Referring Unavailable Krzysztof Arroyo Attending Unavailable Baeza, Femi Referring Unavailable Baeza, Femi Primary Care Unavailable Allergies Allergy Classification Reported Allergen(s) Allergy Type Date of Onset Reaction(s) Facility (20 sources) Dust; Translations: [DUST] Propensity to adverse reactions 005 [facility] Work Phone: (20 sources) Escitalopram; Translations: [ESCITALOPRAM OXALATE] Drug Allergy 016 Other: See Comments [facility] Work Phone: [phone] (20 sources) Esomeprazole; Translations: [ESOMEPRAZOLE MAGNESIUM] Drug Allergy 005 Vomiting, Diarrhea [facility] Work Phone: [phone] (20 sources) Lisinopril; Translations: [LISINOPRIL] Drug Allergy 011 Swelling [facility] Work Phone: [phone] (20 sources) Mold Extract; Translations: [MOLD] Drug Allergy 005 [facility] Work Phone: [phone] (20 sources) Ragweed; Translations: [RAGWEED] Propensity to adverse reactions 005 [facility] Work Phone: [phone] (20 sources) Seasonal [Other] Propensity to adverse reactions 006 [facility] Work Phone: [phone] (15 sources) Esomeprazole Drug Allergy 022 Nausea/Vom/Darby rrhea [facility] (2 sources) hydroCHLOROthiazide Drug Allergy 025 Hyponatremia and Hypokalemia [facility] (1 source) Esomeprazole Drug Allergy 025 [facility] (1 source) hydroCHLOROthiazide Drug Allergy 025 [facility] (1 source) Lisinopril Drug Allergy 025 [facility] Medications Current Medications Medication Drug Class(es) Dates Sig (Normalized) Sig (Original) acetaminophen 500 mg oral tablet (20 sources) Start: 08-23-2022 take 1 tablet by mouth every six hours as needed for pain ACETAMINOPHEN (T YLENOL ARTHRITIS ORAL) Take by [...] Active cetirizine hydrochloride 5 mg oral tablet (11 sources) Histamine-1 Receptor Antagonist Start: take 1 tablet by mouth once daily as needed cholecalciferol 0.05 mg oral capsule (20 sources) Vitamin D Start: 023 take 1 capsule by mouth once daily Cholecalciferol, Vitamin D3, 50 mcg (2,000 unit) cap Take 1 capsule by mouth once daily. Prescribed by endocrinology (Dr. César Johnson) 10/24/2022 Active Start: 12-02-2019 take 1 capsule by [facility] once daily Cholecalciferol, Vitamin D3, 25 mcg (1,000 unit) cap Indications: Vitamin D deficiency Take 1 capsule by mouth once daily. 0 12/02/2019 Active Start: 12-26-2015 take 2 tablets by mo [facility] once daily Start: 12-26-2015 take 1 tablet by [facility] once daily Cholecalciferol (Vitamin D3) (Vitamin D3) 1,000 UNIT tablet Active 1000 UNIT PO DAILY December 26, 2015 12:00am Comment on above: Take 1 capsule by mo [facility] once daily. Take 1 capsule by [facility] once daily. Prescribed by endocrinology (Dr. César Johnson) 1 ml denosumab 60 mg/ml prefilled syringe (20 sources) RANK Ligand Inhibitor Start: 3 Comment on above: Once every 6 months. [...] capsule (20 sources) Calcium Channel Noel Start: End: take 2 capsules by mouth once daily [...] 180 capsule 3 11/03/2023 Active Start: 09-08-2020 Start: 07-12-2020 End: 09-11-2023 take 2 capsules by mouth once daily dilTIAZem CR (TAZTIA XT) 180 mg 24 hr capsule Indications: Essential hypertension Take 2 capsules by mouth once daily. 180 capsule 3 11/16/2022 09/11/2023 Discontinued Comment on above: Take 2 capsules by m outh once daily. docusate sodium 100 mg oral capsule (20 sources) Start: 03-25-2024 End: 12-08-2024 take 1 capsule by mouth three times daily Start: 03-16-2024 End: 03-27-2024 take 1 capsule by mouth once daily Docusate Sodium (Colace) 100 mg capsule Discontinued 100 mg PO DAILY March 16, 2024 1:00am March 27, 2024 11:39am Start: 03-02-2024 take 1 capsule by mo [facility] twice daily docusate sodium (COLACE) 100 mg capsule Indications: Constipation, unspecified constipation type Take 1 capsule by mouth two times a day. 60 capsule 03/02/2024 Active fexofenadine hydrochloride 180 mg oral tablet (20 sources) Histamine-1 Receptor Antagonist Start: 12-07-2024 take 1 tablet by mouth once daily Start: 09-08-2020 End: 08-23-2022 take 1 tablet by mouth once daily Fexofenadine 180 mg Tablet Discontinued 180 mg PO DAILY September 08, 2020 12:00am August 23, 2022 2:03pm Comment on above: Take 180 mg by mouth once daily. fluticasone propionate 0.05 mg/actuat metered dose nasal spray (20 sources) Corticosteroid Start: 08-23-2022 Start: 08-23-2022 take 1 spray(s) nasa l route once daily Fluticasone Propionate Active 1 SPRAY INTRANASAL DAILY August 23, 2022 12:00am administer into each nostril Start: 03-18-2017 take 2 spray(s) by m out once daily fluticasone (FLONASE) 50 mcg/actuation nasal spray Indications: Sinobronchitis Use 2 Sprays in each nostril once daily. Rinse mouth after use. 1 Bottle 03/18/2017 Active Comment on above: Use 2 Sprays in each nostril once daily. Rinse mouth after use. lactobacillus comb no.10 (PROBIOTIC) 20 billion cell cap (20 sources) take 1 capsule by mouth once daily at bedtime lactobacillus comb no.10 (PROBIOTIC) 20 billion cell cap Take 1 capsule by mouth daily at bedtime. Active take 1 capsule by mo uth once daily at bedtime lactobacillus comb no.10 (PROBIOTIC) 20 billion cell cap Take 1 capsule by mouth daily at bedtime. 0 Active Comment on above: Take 1 capsule by mo ut daily at bedtime. lactobacillus rhamnosus gg [id number] unt oral capsule (9 sources) Start: 12-16-2023 lactulose 667 mg/ml oral solution (20 sources) Osmotic Laxative Start: 11-09-2024 End: 11-13-2024 take 10 g by mouth three times daily Start: 11-09-2024 take 10 g by mouth t hree times daily Lactulose 10 gram/15 mL solution [...] solution Discontinued 10 g PO daily 473 October 08, 2024 9:30am November 09, 2024 8:21am Start: 07-15-2024 End: 10-08-2024 take 10 g by mouth once daily [...] take 1 tablet by mouth once daily Comment on above: Take 1 tablet by [facility] once daily as needed (anxiety) for up to 180 days. 3 months supply. Take 1 tablet by [facility] once daily as needed (anxiety) for up to 90 days. 3 months supply. losartan potassium 50 mg oral tablet (20 sources) Angiotensin 2 Receptor Noel Start: 03-18-2024 End: 10-25-2024 take 1 tablet by mouth twice daily Start: 06-11-2022 End: 03-18-2024 take 1 tablet [...] Take 1 tablet by [facility] twice daily. Wigrkefs-Nnp-Wb-Lyc open-Lutein (Centrum Silver) 1 EACH tablet (15 sources) Start: 12-26-2015 take 1 tablet by mouth once daily Acqvpmql-Qxj-Ff-Ly copen-Lutein (Centrum Silver) 1 EACH tablet Active 1 EACH PO DAILY December 26, 2015 2:28pm Start: 12-26-2015 End: 08-23-2022 take 1 tablet by mouth once daily Fpajsrvb-Bfq-Ml-Lycopen-Lutein (Centrum Silver) 1 EACH tablet Discontinued 1 NMA PO DAILY December 26, 2015 12:00am August 23, 2022 2:03pm Start: 12-26-2015 End: 08-23-2022 take 1 tablet by mouth once daily Keookxgh-Gvh-Rn-Lycopen-Lutein (Centrum Silver) 1 EACH tablet Discontinued 1 EACH PO DAILY December 26, 2015 12:00am August 23, 2022 2:03pm Start: 12-26-2015 take 1 tablet by [facility] once daily Whhvqtkc-Fzk-Ci-Lycopen-Lutein (Centrum Silver) 1 EACH tablet Active 1 [...] on above: Take 1 capsule by mo [facility] twice daily with meals for 7 days. olopatadine 2 mg/ml ophthalmic solution (1 source) Histamine-1 Receptor Inhibitor Start: 12-08-19 take 0.2 drop(s) into the eye(s) once daily omeprazole 40 mg delayed release oral capsule (20 sources) Proton Pump Inhibitor Start: 09-09-19 End: 06-18-19 take 1 capsule by mouth once daily Comment on above: Take 1 capsule by [facility] once daily. ondansetron 8 mg disintegrating oral tablet (9 sources) Serotonin-3 Receptor Antagonist Start: 02-21-20 take 1 tablet by mouth every eight hours as needed for nausea and vomiting oxybutynin chloride 5 mg oral tablet (20 sources) Cholinergic Muscarinic Antagonist Start: 12-26-19 End: 06-18-19 take 1 tablet by mouth twice daily Comment on above: Take 1 tablet by [facility] twice daily. predniSONE 20 mg oral tablet (1 source) Start: 02-04-20 End: 02-09-20 take 1 tablet by mouth once daily predniSONE (DELTASONE) 20 mg tablet Indications: Rhinosinusitis Take 1 tablet by mouth once daily for 5 days. 5 tablet 02/04/2024 2024 Active sennosides, long-term 17.2 mg oral tablet (20 sources) Start: 12-08-19 take 1 tablet by mouth once daily Start: 12-07-2024 take 2 tablets by [facility] at bedtime Start: 12-02-2019 End: 03-16-2024 take 1 tablet by mouth once daily Sennosides (Senokot Extra Strength) 17.2 mg tablet Discontinued 17.2 mg PO daily December 16, 2023 12:00am March 16, 2024 10:14pm Comment on above: Take 1 tablet by [facility] daily with lunch AND 2 tablets daily at bedtime. wheat dextrin 3000 mg powder for oral solution (1 source) Start: 12-07-2024 Completed/Discontinued Medications Medication Drug Class(es) Dates Sig (Normalized) Sig (Original) acetaminophen 325 mg / HYDROcodone bitartrate 5 mg oral tablet (9 sources) Opioid Agonist Start: 01-13-2024 End: 03-27-2024 Hydrocodone-Acetamino phen 5-325 mg tablet Discontinued 1 {tbl} PO EVERY 6 HOURS NEEDED as needed for Pain 10 3 0 January 13, 2024 March 27, 2024 11:40am Low back pain Gastroesophageal reflux disease Low back pain, unspecified Gastro-esophageal reflux disease without esophagitis alendronic acid 70 mg oral tablet (15 sources) Bisphosphonate Start: 12-26-2015 End: 08-23-2022 take 1 tablet by mouth every week Alendronate 70 MG tablet Discontinued 70 mg PO Q7D@0700 December 26, 2015 12:00am August 23, 2022 2:02pm amoxicillin 500 mg oral tablet (9 sources) Penicillin-class Antibacterial Start: 01-22-2024 End: 03-16-2024 take 1 tablet by mouth three times daily Amoxicillin 500 mg tablet Discontinued 500 mg PO THREE TIMES A DAY 30 January 22, 2024 1:00am March 16, 2024 10:12pm aspirin 81 mg chewable tablet (15 sources) Platelet Aggregation Inhibitor, Nonsteroidal Anti-inflammatory Drug [...] Discontinued 500 mg PO EVERY 12 HOURS 7 June 01, 2021 12:00am August 23, 2022 2:02pm Start: 09-08-2020 End: 08-23-2022 take 1 capsule by mouth twice daily Cephalexin 500 mg capsule Discontinued 500 mg PO TWICE A DAY 20 10 September 08, 2020 12:00am August 23, 2022 2:02pm ciprofloxacin 500 mg oral tablet (9 sources) Quinolone Antimicrobial Start: 08-28-2023 End: 11-22-2023 take 1 tablet by mouth twice daily Ciprofloxacin Hcl 500 mg tablet Discontinued 500 mg PO TWICE A DAY 14 0 August 28, 2023 12:00am November 22, 2023 2:39pm dexamethasone 1.5 mg oral tablet (12 sources) Corticosteroid Start: 05-23-2022 End: 08-23-2022 take 1 tablet by mouth once daily Dexamethasone 1.5 mg (21 tabs) tablets,dose pack Discontinued 1.5 mg PO DAILY 21 May 23, 2022 12:00am August 23, 2022 [...] on above: Take 1 capsule by mo [facility] one time a week. Take 1 capsule by mo [facility] two times a week. famciclovir 500 mg oral tablet (15 sources) Herpes Simplex Virus Nucleoside Analog DNA Polymerase Inhibitor Start: 2020 End: 2022 take 1 tablet by mouth every eight hours Famciclovir 500 mg Tablet Discontinued 500 mg PO Q8H September 08, 2020 12:00am August 23, 2022 2:03pm hydroCHLOROthiazide 50 mg oral tablet (20 sources) Thiazide Diuretic Start: 2024 End: 2024 take 1 tablet by mouth once daily Hydrochlorothiazide 50 mg tablet Discontinued 50 mg PO DAILY December 07, 2024 12:00am December 09, 2024 2:33pm DIURETIC Start: 10-28-2024 take 1 tablet by [facility] once daily hydroCHLOROthiazide 50 mg tablet Indications: Lower leg edema , Essential hypertension Take 1 tablet by mouth once daily. 90 tablet 1 10/28/2024 Active Start: 06-25-2024 End: 12-07-2024 take 1 tablet by mouth once daily in the morning Hydrochlorothiazide 25 mg tablet Discontinued 25 mg PO EVERY MORNING July 15, 2024 12:00am December 07, 2024 4:54pm Start: 12-26-2015 End: 08-23-2022 take 1 tablet by mouth once daily Hydrochlorothiazide 25 MG tablet Discontinued 25 mg PO DAILY December 26, 2015 12:00am Laura 22nd, 2023 2:03pm linaclotide 0.145 mg oral capsule (20 sources) Guanylate Cyclase-C Agonist Start: 05-15-2024 End: 11-09-2024 take 1 capsule by mouth once daily in the morning Linaclotide (Linzess) 145 mcg capsule Discontinued 145 ug PO EVERY MORNING 30 2 August 11, 2024 6:54am November 09, 2024 8:21am lubiprostone 0.024 mg oral capsule (2 sources) Chloride Channel Activator Start: 01-17-2024 End: 02-04-2024 take 1 capsule by mouth twice daily at mealtime lubiprostone (AMITIZA) 24 mcg capsule Indications: Chronic idiopathic constipation Take 1 capsule by mouth two times a day with meals. 180 capsule 01/17/2024 02/04/2024 Discontinued (Cost of medication) magnesium oxide 400 mg oral tablet (15 sources) Start: 06-18-2017 End: 08-23-2022 take 1 tablet by mouth twice daily at mealtime Magnesium Oxide 400 MG tablet Discontinued 400 mg PO TWICE DAILY WITH MEALS 14 0 June 18, 2017 12:00am August 23, 2022 2:03pm Maltodextrin-Aspartame (2 sources) Start: 08-23-2022 End: 11-02-2022 Maltodextrin-Aspartam e Discontinued EACH PO August 23, 2022 12:00am November 02, 2022 1:04pm Maltodextrin-Aspartame 3 gram/6 gram powder in packet (9 sources) Start: 08-23-2022 End: 11-02-2022 Maltodextrin-Aspartam e 3 gram/6 gram powder in packet Discontinued NMA PO August 23, 2022 12:00am November 02, 2022 1:04pm methylPREDNISolone 4 mg oral tablet (9 sources) Corticosteroid Start: 11-22-2023 End: 11-28-2023 take 1 tablet by mouth once Methylprednisolone (Medrol (Darren)) 4 mg tablets,dose pack Discontinued 4 mg PO per package directions 21 6 November 22, 2023 12:00am November 27, 2023 12:00am November 28, 2023 12:07am phenazopyridine hydrochloride 200 mg oral tablet (12 sources) Start: 01-13-2024 End: 03-16-2024 take 1 tablet by mouth three times daily Phenazopyridine (Pyridium) 200 mg tablet Discontinued 200 mg PO THREE TIMES A DAY 10 January 13, 2024 1:00am March 16, 2024 10:13pm polyethylene glycol 3350 01444 mg powder for oral solution (15 sources) Osmotic Laxative Start: 06-18-2017 End: 08-23-2022 take 17 g by mouth once daily Polyethylene Glycol 3350 17 GM packet Discontinued 17 g PO DAILY 30 June 18, 2017 12:00am August 23, 2022 2:04pm potassium chloride 20 meq extended release oral tablet (20 sources) Start: 02-21-2024 End: 03-16-2024 take 1 tablet by mouth twice daily Potassium Chloride 20 mEq tablet extended release Discontinued 20 meq PO TWICE A DAY 8 February 21, 2024 1:00am March 16, 2024 10:13pm Start: 06-18-2017 End: 08-23-2022 take 2 tablets by mouth once daily Potassium Chloride 20 MEQ tablet Discontinued 40 meq PO DAILY 30 June 18, 2017 12:00am August 23, 2022 2:04pm Start: 06-18-2017 End: 08-23-2022 take 40 mEq by mouth once daily Potassium Chloride Dis continued 40 MEQ PO DAILY June 18, 2017 12:00am August 23, 2022 2:04pm prednisoLONE acetate 10 mg/ml ophthalmic suspension (11 sources) Corticosteroid Start: 08-23-2022 End: 11-22-2023 Prednisolone Acetate 1 % drops,suspension Discontinued 1 NMA OPHTHALMIC Q12H as needed for allergic symptoms August 23, 2022 12:00am November 22, 2023 2:39pm sodium chloride 0.111 meq/ml nasal spray (11 sources) Start: 08-23-2022 End: 12-07-2024 Sodium Chloride 0.65 % aerosol,spray Discontinued 1 NMA INTRANASAL DAILY August 23, 2022 12:00am December 07, 2024 5:12pm Start: 08-23-2022 Sodium Chlorid e 0.65 % aerosol,spray Active 1 NMA INTRANASAL ONCE August 23, 2022 12:00am Start: 08-23-2022 Sodium Chlorid e Active 1 SPRAY INTRANASAL ONCE August 23, 2022 12:00am 100 ml zoledronic acid 0.05 mg/ml injection (11 sources) Bisphosphonate Start: 08-23-2022 End: 10-03-2022 Zoledronic Byup-Ivhzjpvd-Khurg (Reclast) 5 mg/100 mL piggyback Discontinued 1 [...] neoplasm of kidney] Onset: 7 01-21-2017 Episodic Diverticulosis and diverticulitis (9 sources) Diverticular disease; Translations: [Diverticulosis of intestine, part unspecified, without perforation or abscess without bleeding] 12-16-2023 Chronic E Codes: Adverse effects of medical drugs (5 sources) Adverse reaction to drug; Translations: [Adverse effect of unspecified drugs, medicaments and biological substances, initial encounter] Onset: 5 12-07-2024 Episodic E Codes: Fall (3 sources) Fall on [...] electrolyte disorders (20 sources) Hypokalemia; Translations: [Hypokalemia] Onset: 5 06-16-2017 Episodic Genitourinary symptoms and ill-defined conditions (20 sources) Urge incontinence of urine; Translations: [Urge incontinence] Onset: 2 11-28-2011 Chronic Genitourinary symptoms and ill-defined conditions (20 sources) Dysuria; Translations: [Dysuria] Onset: 1 Resolved: 2 Episodic Immunizations and screening for infectious disease (3 sources) Patient encounter status; Translations: [Encounter for immunization] Episodic Intestinal obstruction without hernia (20 sources) Stricture of colon; Translations: [Other intestinal obstruction unspecified as to partial versus complete obstruction] Onset: 5 04-09-2024 Episodic Malaise and fatigue (20 sources) Malaise; Translations: [Other malaise] Onset: 5 11-26-2021 Episodic Noninfectious gastroenteritis (18 sources) Gastroenteritis; Translations: [Noninfective gastroenteritis and colitis, [...] colon] 07-02-2024 Episodic Other connective tissue disease (6 sources) Tendinitis of right rotator cuff; Translations: [Other shoulder lesions, right shoulder] 11-09-2024 Episodic Other connective tissue disease (1 source) Other shoulder lesions, right shoulder; Translations: [Other shoulder lesions, right shoulder] Onset: 5 Episodic Other diseases of bladder and urethra (15 sources) Overactive bladder; Translations: [Overactive bladder] 06-16-2017 Chronic Other diseases of kidney and ureters (20 sources) Renal mass; Translations: [Other specified disorders of kidney and ureter] Onset: 2 06-19-2021 Chronic Other ear and sense organ disorders (1 source) Impacted cerumen of bilateral ears; Translations: [Impacted cerumen, bilateral] 02-04-2024 Episodic Other endocrine disorders (13 sources) Primary hyperparathyroidism; Translations: [Primary hyperparathyroidism] 08-23-2022 Chronic Other endocrine disorders (3 sources) Primary hyperparathyroidism; Translations: [Primary hyperparathyroidism] Onset: 5 08-23-2022 Chronic Other gastrointestinal disorders (4 sources) Chronic idiopathic constipation; Translations: [Chronic idiopathic constipation] 01-17-2024 Chronic Other gastrointestinal disorders (1 source) Chronic idiopathic constipation; Translations: [Chronic idiopathic constipation] Onset: 9 Chronic Other gastrointestinal disorders (20 sources) Constipation; Translations: [Constipation, unspecified] Onset: 9 01-17-2009 Episodic Other gastrointestinal disorders (18 sources) Diarrhea; Translations: [Diarrhea, unspecified] 06-16-2017 Episodic Other gastrointestinal disorders (20 sources) Acute constipation; Translations: [Constipation, unspecified] 03-24-2024 Episodic Other gastrointestinal disorders (2 sources) Constipation, unspecified; Translations: [Constipation, unspecified] Onset: 5 Episodic Other nervous system disorders (1 source) Other chronic pain; Translations: [Chronic neck pain] Onset: 5 Chronic Other nervous system disorders (9 sources) Abnormal gait; Translations: [Unspecified abnormalities of [...] leg ; Translations: [Localized edema] 07-02-2024 Episodic Residual codes; unclassified (4 sources) History of partial nephrectomy; Translations: [Acquired absence of kidney] 12-07-2024 Episodic Residual codes; unclassified (1 source) Acquired absence of kidney; Translations: [Acquired absence of kidney] Onset: 5 Episodic Spondylosis; intervertebral disc disorders; other back [...] unspecified type; Translations: [Cough, unspecified type] Onset: 5 Unclassified (4 sources) History of chronic constipation 12-07-2024 Urinary tract infections (1 source) Urinary tract [...] pelvis] Onset: 2 Resolved: 4 12-07-2013 Chronic E Codes: Fall (4 sources) Fall on same level from slipping, tripping or stumbling 09-08-2024 Gastrointestinal hemorrhage (20 sources) Gastrointestinal hemorrhage; Translations: [Gastrointestinal hemorrhage, unspecified] Onset: 4 03-02-2024 Episodic Menopausal disorders (20 sources) Atrophic vaginitis; [...] 06-22-2011 Episodic Other gastrointestinal disorders (1 source) Diarrhea, [...] Test Name Value Interpretation Reference Range Facility Basic Metabolic Profile (BMP )on 12-15-2024 BUN Normal 06-20 [facility] Comment on above: Result Comment: Canc elled via OM: Order cancelled - Patient discharged Performed By: #### L 100.0100, L500.4050, L501.9520, L501.2300 #### [facility] [address] [place], [address] BUN/CRE Normal 12-21 [facility] Comment on above: Result Comment: Canc elled via OM: Order cancelled - Patient discharged Performed By: #### L 100.0100, L500.4050, L501.9520, L501.2300 #### [facility] [address] [place], [address] Calcium Normal 7.6-11.0 [facility] Comment on above: Result Comment: Canc elled via OM: Order cancelled - Patient discharged Performed By: #### L 100.0100, L500.4050, L501.9520, L501.2300 #### [facility] [address] [place], [address] CL Normal 98-108 [facility] Comment on above: Result Comment: Canc elled via OM: Order cancelled - Patient discharged Performed By: #### L 100.0100, L500.4050, L501.9520, L501.2300 #### [facility] [address] [place], [address] CO2 Normal 21.0-32.0 [facility] Comment on above: Result Comment: Canc elled via OM: Order cancelled - Patient discharged Performed By: #### L 100.0100, L500.4050, L501.9520, L501.2300 #### [facility] [address] [place], [address] CREAT,SERUM Normal 0.70-1.20 [facility] Comment on above: Result Comment: Canc elled via OM: Order cancelled - Patient discharged Performed By: #### L 100.0100, L500.4050, L501.9520, L501.2300 #### [facility] [address] [place], [address] eGFR Normal >60 [facility] Comment on above: Result Comment: Canc elled via OM: Order cancelled - Patient discharged Performed By: #### L 100.0100, L500.4050, L501.9520, L501.2300 #### [facility] [address] [place], [address] GAP Normal 5-15 [facility] Comment on above: Result Comment: Canc elled via OM: Order cancelled - Patient discharged Performed By: #### L 100.0100, L500.4050, L501.9520, L501.2300 #### [facility] [address] [place], [address] GLU Normal 70-99 [facility] Comment on above: Result Comment: Canc elled via OM: Order cancelled - Patient discharged Performed By: #### L 100.0100, L500.4050, L501.9520, L501.2300 #### [facility] [address] [place], [address] Potassium Normal 3.3-5.1 [facility] Comment on above: Result Comment: Canc elled via OM: Order cancelled - Patient discharged Performed By: #### L 100.0100, L500.4050, L501.9520, L501.2300 #### [facility] [address] [place], [address] Basic Metabolic Profile (BMP) Normal 133-145 [facility] Comment on above: Result Comment: Canc elled via OM: Order cancelled - Patient discharged Performed By: #### L 100.0100, L500.4050, L501.9520, L501.2300 #### [facility] [address] [place], [address] Basic Metabolic Profile (BMP )on 12-14-2024 BUN Normal -19 [facility] Comment on above: Result Comment: Canc elled via OM: Order cancelled - Patient discharged Performed By: #### L 500.2500 ####[facility] [address] [place], [address] BUN/CRE Normal - [facility] Comment on above: Result Comment: Canc elled via OM: Order cancelled - Patient discharged Performed By: #### L 500.2500 ####[facility] [address] [place], [address] Calcium Normal 7.6-11.0 [facility] Comment on above: Result Comment: Canc elled via OM: Order cancelled - Patient discharged Performed By: #### L 500.2500 ####[facility] [address] [place], [address] CL Normal 98-108 [facility] Comment on above: Result Comment: Canc elled via OM: Order cancelled - Patient discharged Performed By: #### L 500.2500 ####[facility] [address] [place], [address] CO2 Normal 21.0-32.0 [facility] Comment on above: Result Comment: Canc elled via OM: Order cancelled - Patient discharged Performed By: #### L 500.2500 ####[facility] [address] [place], [address] CREAT,SERUM Normal 0.70-1.20 [facility] Comment on above: Result Comment: Canc elled via OM: Order cancelled - Patient discharged Performed By: #### L 500.2500 ####[facility] [address] [place], [address] eGFR Normal >60 [facility] Comment on above: Result Comment: Canc elled via OM: Order cancelled - Patient discharged Performed By: #### L 500.2500 ####[facility] [address] [place], [address] GAP Normal 5-15 [facility] Comment on above: Result Comment: Canc elled via OM: Order cancelled - Patient discharged Performed By: #### L 500.2500 ####[facility] [address] [place], [address] GLU Normal 70-99 [facility] Comment on above: Result Comment: Canc elled via OM: Order cancelled - Patient discharged Performed By: #### L 500.2500 ####[facility] [address] [place], [address] Potassium Normal 3.3-5.1 [facility] Comment on above: Result Comment: Canc elled via OM: Order cancelled - Patient discharged Performed By: #### L 500.2500 ####[facility] [address] [place], [address] Basic Metabolic Profile (BMP) Normal 133-145 [facility] Comment on above: Result Comment: Canc elled via OM: Order cancelled - Patient discharged Performed By: #### L 500.2500 ####[facility] [address] [place], [address] Basic Metabolic Profile (BMP )on 12-13-2024 BUN Normal -19 [facility] Comment on above: Result Comment: Canc elled via OM: Order cancelled - Patient discharged Performed By: #### L 500.2500 ####[facility] [address] [place], [address] BUN/CRE Normal - [facility] Comment on above: Result Comment: Canc elled via OM: Order cancelled - Patient discharged Performed By: #### L 500.2500 ####[facility] [address] [place], [address] Calcium Normal 7.6-11.0 [facility] Comment on above: Result Comment: Canc elled via OM: Order cancelled - Patient discharged Performed By: #### L 500.2500 ####[facility] [address] [place], [address] CL Normal 98-108 [facility] Comment on above: Result Comment: Canc elled via OM: Order cancelled - Patient discharged Performed By: #### L 500.2500 ####[facility] [address] [place], [address] CO2 Normal 21.0-32.0 [facility] Comment on above: Result Comment: Canc elled via OM: Order cancelled - Patient discharged Performed By: #### L 500.2500 ####[facility] [address] [place], [address] CREAT,SERUM Normal 0.70-1.20 [facility] Comment on above: Result Comment: Canc elled via OM: Order cancelled - Patient discharged Performed By: #### L 500.2500 ####[facility] [address] [place], [address] eGFR Normal >60 [facility] Comment on above: Result Comment: Canc elled via OM: Order cancelled - Patient discharged Performed By: #### L 500.2500 ####[facility] [address] [place], [address] GAP Normal 5-15 [facility] Comment on above: Result Comment: Canc elled via OM: Order cancelled - Patient discharged Performed By: #### L 500.2500 ####[facility] [address] [place], [address] GLU Normal 70-99 [facility] Comment on above: Result Comment: Canc elled via OM: Order cancelled - Patient discharged Performed By: #### L 500.2500 ####[facility] [address] [place], [address] Potassium Normal 3.3-5.1 [facility] Comment on above: Result Comment: Canc elled via OM: Order cancelled - Patient discharged Performed By: #### L 500.2500 ####[facility] [address] [place], [address] Basic Metabolic Profile (BMP) Normal 133-145 [facility] Comment on above: Result Comment: Canc elled via OM: Order cancelled - Patient discharged Performed By: #### L 500.2500 ####[facility] [address] [place], [address] Basic Metabolic Profile (BMP )on 12-12-2024 BUN Normal 4-19 [facility] Comment on above: Result Comment: Canc elled via OM: Order cancelled - Patient discharged Performed By: #### L 100.0100, L500.4050, L501.9520, L501.2300 #### [facility] [address] [place], [address] BUN/CRE Normal 10-20 [facility] Comment on above: Result Comment: Canc elled via OM: Order cancelled - Patient discharged Performed By: #### L 100.0100, L500.4050, L501.9520, L501.2300 #### [facility] [address] [place], [address] Calcium Normal 7.6-11.0 [facility] Comment on above: Result Comment: Canc elled via OM: Order cancelled - Patient discharged Performed By: #### L 100.0100, L500.4050, L501.9520, L501.2300 #### [facility] [address] [place], [address] CL Normal 98-108 [facility] Comment on above: Result Comment: Canc elled via OM: Order cancelled - Patient discharged Performed By: #### L 100.0100, L500.4050, L501.9520, L501.2300 #### [facility] [address] [place], [address] CO2 Normal 21.0-32.0 [facility] Comment on above: Result Comment: Canc elled via OM: Order cancelled - Patient discharged Performed By: #### L 100.0100, L500.4050, L501.9520, L501.2300 #### [facility] [address] [place], [address] CREAT,SERUM Normal 0.70-1.20 [facility] Comment on above: Result Comment: Canc elled via OM: Order cancelled - Patient discharged Performed By: #### L 100.0100, L500.4050, L501.9520, L501.2300 #### [facility] [address] [place], [address] eGFR Normal >60 [facility] Comment on above: Result Comment: Canc elled via OM: Order cancelled - Patient discharged Performed By: #### L 100.0100, L500.4050, L501.9520, L501.2300 #### [facility] [address] [place], [address] GAP Normal 5-15 [facility] Comment on above: Result Comment: Canc elled via OM: Order cancelled - Patient discharged Performed By: #### L 100.0100, L500.4050, L501.9520, L501.2300 #### [facility] [address] [place], [address] GLU Normal 70-99 [facility] Comment on above: Result Comment: Canc elled via OM: Order cancelled - Patient discharged Performed By: #### L 100.0100, L500.4050, L501.9520, L501.2300 #### [facility] [address] [place], [address] Potassium Normal 3.3-5.1 [facility] Comment on above: Result Comment: Canc elled via OM: Order cancelled - Patient discharged Performed By: #### L 100.0100, L500.4050, L501.9520, L501.2300 #### [facility] [address] [place], [address] Basic Metabolic Profile (BMP) Normal 133-145 [facility] Comment on above: Result Comment: Canc elled via OM: Order cancelled - Patient discharged Performed By: #### L 100.0100, L500.4050, L501.9520, L501.2300 #### [facility] [address] [place], [address] Basic Metabolic Profile (BMP )on 12-11-2024 BUN Normal 4-19 [facility] Comment on above: Result Comment: Canc elled via OM: Order cancelled - Patient discharged Performed By: #### L 100.0100, L500.4050, L501.9520, L501.2300 #### [facility] [address] [place], [address] BUN/CRE Normal 10-20 [facility] Comment on above: Result Comment: Canc elled via OM: Order cancelled - Patient discharged Performed By: #### L 100.0100, L500.4050, L501.9520, L501.2300 #### [facility] [address] [place], [address] Calcium Normal 7.6-11.0 [facility] Comment on above: Result Comment: Canc elled via OM: Order cancelled - Patient discharged Performed By: #### L 100.0100, L500.4050, L501.9520, L501.2300 #### [facility] [address] [place], [address] CL Normal 98-108 [facility] Comment on above: Result Comment: Canc elled via OM: Order cancelled - Patient discharged Performed By: #### L 100.0100, L500.4050, L501.9520, L501.2300 #### [facility] [address] [place], [address] CO2 Normal 21.0-32.0 [facility] Comment on above: Result Comment: Canc elled via OM: Order cancelled - Patient discharged Performed By: #### L 100.0100, L500.4050, L501.9520, L501.2300 #### [facility] [address] [place], [address] CREAT,SERUM Normal 0.70-1.20 [facility] Comment on above: Result Comment: Canc elled via OM: Order cancelled - Patient discharged Performed By: #### L 100.0100, L500.4050, L501.9520, L501.2300 #### [facility] [address] [place], [address] eGFR Normal >60 [facility] Comment on above: Result Comment: Canc elled via OM: Order cancelled - Patient discharged Performed By: #### L 100.0100, L500.4050, L501.9520, L501.2300 #### [facility] [address] [place], [address] GAP Normal 5-15 [facility] Comment on above: Result Comment: Canc elled via OM: Order cancelled - Patient discharged Performed By: #### L 100.0100, L500.4050, L501.9520, L501.2300 #### [facility] [address] [place], [address] GLU Normal 70-99 [facility] Comment on above: Result Comment: Canc elled via OM: Order cancelled - Patient discharged Performed By: #### L 100.0100, L500.4050, L501.9520, L501.2300 #### [facility] [address] [place], [address] Potassium Normal 3.3-5.1 [facility] Comment on above: Result Comment: Canc elled via OM: Order cancelled - Patient discharged Performed By: #### L 100.0100, L500.4050, L501.9520, L501.2300 #### [facility] [address] [place], [address] Basic Metabolic Profile (BMP) Normal 133-145 [facility] Comment on above: Result Comment: Canc elled via OM: Order cancelled - Patient discharged Performed By: #### L 100.0100, L500.4050, L501.9520, L501.2300 #### [facility] [address] [place], [address] Basic Metabolic Profile (BMP )on 12-10-2024 BUN Normal 4-19 [facility] Comment on above: Result Comment: Canc elled via OM: Order cancelled - Patient discharged Performed By: #### L 100.0100, L500.4050, L501.9520, L501.2300 #### [facility] [address] [place], [address] BUN/CRE Normal 10-20 [facility] Comment on above: Result Comment: Canc elled via OM: Order cancelled - Patient discharged Performed By: #### L 100.0100, L500.4050, L501.9520, L501.2300 #### [facility] [address] [place], [address] Calcium Normal 7.6-11.0 [facility] Comment on above: Result Comment: Canc elled via OM: Order cancelled - Patient discharged Performed By: #### L 100.0100, L500.4050, L501.9520, L501.2300 #### [facility] [address] [place], [address] CL Normal 98-108 [facility] Comment on above: Result Comment: Canc elled via OM: Order cancelled - Patient discharged Performed By: #### L 100.0100, L500.4050, L501.9520, L501.2300 #### [facility] [address] [place], [address] CO2 Normal 21.0-32.0 [facility] Comment on above: Result Comment: Canc elled via OM: Order cancelled - Patient discharged Performed By: #### L 100.0100, L500.4050, L501.9520, L501.2300 #### [facility] [address] [place], [address] CREAT,SERUM Normal 0.70-1.20 [facility] Comment on above: Result Comment: Canc elled via OM: Order cancelled - Patient discharged Performed By: #### L 100.0100, L500.4050, L501.9520, L501.2300 #### [facility] [address] [place], [address] eGFR Normal >60 [facility] Comment on above: Result Comment: Canc elled via OM: Order cancelled - Patient discharged Performed By: #### L 100.0100, L500.4050, L501.9520, L501.2300 #### [facility] [address] [place], [address] GAP Normal 5-15 [facility] Comment on above: Result Comment: Canc elled via OM: Order cancelled - Patient discharged Performed By: #### L 100.0100, L500.4050, L501.9520, L501.2300 #### [facility] [address] [place], [address] GLU Normal 70-99 [facility] Comment on above: Result Comment: Canc elled via OM: Order cancelled - Patient discharged Performed By: #### L 100.0100, L500.4050, L501.9520, L501.2300 #### [facility] [address] [place], [address] Potassium Normal 3.3-5.1 [facility] Comment on above: Result Comment: Canc elled via OM: Order cancelled - Patient discharged Performed By: #### L 100.0100, L500.4050, L501.9520, L501.2300 #### [facility] [address] [place], [address] Basic Metabolic Profile (BMP) Normal 133-145 [facility] Comment on above: Result Comment: Canc elled via OM: Order cancelled - Patient discharged Performed By: #### L 100.0100, L500.4050, L501.9520, L501.2300 #### [facility] [address] [place], [address] Anion gap in Serum or Plasma Ordered By: Kelle Davila on 12-09-2024 Anion gap [Moles/Vol] 10 mmol/L 07-16 [facility] BUN/creatinine ratioOrdered By: Kelle Davila on 12-09-2024 Urea nitrogen/Creatinine [Mass ratio] 13.1 mg/mg 12-21 [facility] Basic Metabolic Profile (BMP )on 12-09-2024 BUN/CRE 13.1 RATIO Normal 12-21 [facility] Comment on above: Performed By: #### L 100.0100, L500.4050, L501.9520, L501.2300 #### [facility] [address] [place], [address] Calcium [Mass/Vol] 9.4 mg/dL Normal 7.6-11.0 [facility] Comment on above: Performed By: #### L 100.0100, L500.4050, L501.9520, L501.2300 #### [facility] [address] [place], [address] Chloride [Moles/Vol] 98 mmol/L Normal 98-108 [facility] Comment on above: Performed By: #### L 100.0100, L500.4050, L501.9520, L501.2300 #### [facility] [address] [place], [address] CO2 [Moles/Vol] 25.7 mmol/L Normal 21.0-32.0 [facility] Comment on above: Performed By: #### L 100.0100, L500.4050, L501.9520, L501.2300 #### [facility] [address] [place], [address] Creatinine [Mass/Vol] 0.52 mg/dL Low 0.70-1.20 [facility] Comment on above: Performed By: #### L 100.0100, L500.4050, L501.9520, L501.2300 #### [facility] [address] [place], [address] ECRCL 50.05 ml/min Normal 50-250 [facility] Comment on above: Performed By: #### L 100.0100, L500.4050, L501.9520, L501.2300 #### [facility] [address] [place], [address] GAP 10 Normal 5-15 [facility] Comment on above: Performed By: #### L 100.0100, L500.4050, L501.9520, L501.2300 #### [facility] [address] [place], [address] GFR/1.73 sq M.predicted among non-blacks MDRD (S/P/Bld) [Vol rate/Area] 95 mL/min/{1.73_m2} Normal >60 [facility] Comment on above: Result Comment: mL/m in/1.73m2 CKD-EPI Creatinine Equation (2020) Performed By: #### L 100.0100, L500.4050, L501.9520, L501.2300 #### [facility] [address] [place], [address] Glucose [Mass/Vol] 93 mg/dL Normal 70-99 [facility] Comment on above: Performed By: #### L 100.0100, L500.4050, L501.9520, L501.2300 #### [facility] [address] [place], [address] Potassium [Moles/Vol] 3.5 mmol/L Normal 3.3-5.1 [facility] Comment on above: Performed By: #### L 100.0100, L500.4050, L501.9520, L501.2300 #### [facility] [address] [place], [id number] Sodium [Moles/Vol] 135 mmol/L Normal 133-145 [facility] Comment on above: Performed By: #### L 100.0100, L500.4050, L501.9520, L501.2300 #### [facility] [address] [place], [address] Urea nitrogen [Mass/Vol] 7 mg/dL Normal 4-19 [facility] Comment on above: Performed By: #### L 100.0100, L500.4050, L501.9520, L501.2300 #### [facility] [address] [facility] [place], [address] Carbon dioxide, total [Moles /volume] in Central venous bloodOrdered By: Kelle Davila on 12-09-2024 CO2 [Moles/Vol] 25.7 mmol/L 21.0-32.0 [facility] Chloride assayOrdered By: Albina Davila on 12-09-2024 Chloride [Moles/Vol] 98 mmol/L 98-108 [facility] Discharge Instructionon 10-0 Discharge Instruction [facility] Medical Records Department [address] [place] [address] Instructions for Home/Discharge Instructions 12/09/24 1436 MR#: [id number] Acct: [id number] Name: LEONEL ANDRE (BONNIE) Rep #: [id number] : 1945 79 From: Kelle Davila MD PCP: Dr. Femi Baeza MD Status:ADM IN Discharge Instructions DC O2, CPAP, BIPAP needs Home O2 Discharge instructions: No Dressing / Incision Discharge Activity: - (Increase activity as tolerated) Follow Up Care Test Results: Test results from this visit will be discussed in further detail at your follow-up appointment, if applicable. Discharge Plan Admission Admit Date/Time: 12/07/24 21:50 Primary Reason for Your Visit: Generalized weakness Attending Provider: Kelle Davila Primary Care Provider: Femi Baeza Consulting Providers: Ranjeet Aldana; Peewee Negro Instructions Patient Instructions: Treating Constipation, ED Constipation (Adult) Additional Instructions / Restrictions: DISCHARGE INSTRUCTIONS PLEASE READ *Please take this with you to your next doctors appointment* - Your hydrochlorothiazide has been held, this may have caused or contributed to your low sodium and potassium on presentation which can worsen weakness - Please continue your bowel regimen and it is advised to follow-up with your coil builder upon discharge for continued management of your constipation -Please follow-up with Dr. Negro for your kidneys upon discharge. Please call their office to schedule hospital follow-up appointment upon discharge. -Please call your primary care provider's office upon discharge to schedule a hospital follow up within 1 week. -For any concerning signs or symptoms please call 911 or proceed to the nearest emergency department Discharge Orders/Prescriptions Prescriptions: Continued omeprazole 40 mg capsule,delayed release(DR/EC) 40 mg PO DAILY acetaminophen [Tylenol Extra Strength] 500 mg tablet 500 mg PO Q6H PRN (Reason: pain) cetirizine 5 mg tablet 5 mg PO DAILY PRN (Reason: allergy symptoms) fluticasone propionate 50 mcg/actuation spray,suspension 1 spray intranasal DAILY PRN (Reason: allergy symptoms) Rx Instructions: administer into each nostril Probiotic Digestive Care 20 billion cell capsule 1 cell PO DAILY oxybutynin chloride 5 MG tablet 5 mg PO BID cholecalciferol (vitamin D3) [Vitamin D3] 1,000 UNIT tablet 2,000 unit PO DAILY diltiazem HCl 180 mg capsule,extended release 24 hr 360 mg PO DAILY lorazepam 0.5 mg tablet 0.5 mg PO DAILY losartan 50 mg tablet 50 mg PO BID ondansetron 8 mg tablet,disintegrating 8 mg PO Q8H PRN (Reason: nausea and vomiting) Qty: 15 0RF fexofenadine [Louisa Allergy] 180 mg tablet 180 mg PO DAILY Clear Fiber 3 gram/4 gram powder 3 g PO DAILY Senokot Extra Strength 17.2 mg tablet 17.2 mg PO DAILY Senokot Extra Strength 17.2 mg tablet 34.4 mg PO QHS olopatadine [Pataday Once Daily Relief] 0.2 % drops 1 drp EACH EYE DAILY Prolia 60 mg/mL syringe 60 mg subcut [id number] Qty: 1 1RF Linzess 145 mcg capsule 145 mcg PO QAM Qty: 30 2RF lactulose 10 gram/15 mL solution 10 g PO TID Qty: 1200 1RF docusate sodium 100 mg capsule 100 mg PO TID Qty: 90 2RF Discontinued hydrochlorothiazide 50 mg tablet 50 mg PO DAILY Referrals / Follow Up: Peewee Negro MD [Med Staff - Active Staff, Urology] - In 1 Week Referral Note: Please call to schedule the appointment day of discharge for kidney masses. Femi Baeza MD [Primary Care Provider, Internal Medicine] Zonia Lawrence PA [Med Staff - Adv Practice Prof, Gastroenterology] Referral Note: Please follow-up with gastroenterology upon discharge for continued management of your chronic constipation Disposition Disposition (needs filled in before D/C Order can be placed): Home, Self Care 12/09/24 1438 Kelle Davila MD CC: Dr. Ranjeet Aldana DO; Dr. Peewee Negro MD; Dr. Femi Baeza MD Signed Normal [facility] Glomerular filtration rate ( GFR) estimation/1.73 sq m using serum, plasma, or whole bOrdered By: Kelle Davila on 12-09-2024 GFR/1.73 sq M.predicted among non-blacks MDRD (S/P/Bld) [Vol rate/Area] 95 mL/min/{1.73_m2} >60 [facility] Comment on above: mL/min/1.73m2 CKD-EP I Creatinine Equation (2020) Phosphoruson 12-09-2024 Phosphate [Mass/Vol] 2.1 mg/dL Low 2.7-4.5 [facility] Comment on above: Performed By: #### L 100.0100, L500.4050, L501.9520, L501.2300 #### [facility] [address] [facility] [place], [address] Potassium measurement (mass/ volume)Ordered By: Kelle Davila on 12-09-2024 Potassium (Unsp spec) [Mass/Vol] 3.5 mmol/L 3.3-5.1 [facility] Serum creatinine measurement (mass/volume)Ordered By: Kelle Davila on 12-09-2024 Creatinine [Mass/Vol] 0.52 mg/dL Low 0.70-1.20 [facility] Serum glucose measurement (m ass/volume)Ordered By: Kelle Davila on 12-09-2024 Glucose [Mass/Vol] 93 mg/dL 70-99 [facility] Serum or plasma calcium erendira urement (mass/volume)Ordered By: Kelle Davila on 12-09-2024 Calcium [Mass/Vol] 9.4 mg/dL 7.6-11.0 [facility] Serum or plasma urea nitroge n measurement (mass/volume)Ordered By: Kelle Davila on 12-09-2024 Urea nitrogen [Mass/Vol] 7 mg/dL 4-19 [facility] Sodium levelOrdered By: Sid Davila on 12-09-2024 Sodium [Moles/Vol] 135 mmol/L 133-145 [facility] Absolute lymphocyte countOrd ered By: Ranjeet Wisdom on 12-08-2024 Lymphocytes Auto (Unsp spec) [#/Vol] 1.44 10*3/uL 0.83-4.51 [facility] Absolute neutrophil countOrd ered By: Ranjeet Wisdom on 12-08-2024 Neutrophils (Bld) [#/Vol] 3.3 10*3/uL 2.0-7.7 [facility] Automated lymphocyte count a s percentage of total leukocytesOrdered By: Ranjeet Wisdom on 12-08-2024 Lymphocytes/100 WBC Auto (Unsp spec) 25.9 % 19-41 [facility] Basophil percentageOrdered B y: Ranjeet Wisdom on 12-08-2024 Basophils/100 WBC (Bld) 0.5 % 0-1 [facility] Bilirubin, totalOrdered By: Ranjeet Wisdom on 12-08-2024 Bilirubin [Mass/Vol] 0.36 mg/dL 0.00-1.30 [facility] CBC W/Diff, Automatedon Absolute Lymph 1.44 X10 3/uL Normal 0.83-4.51 [facility] Comment on above: Performed By: #### L 100.0100, L500.4050, L501.4120, L501.2300 #### [facility] [address] [place], [place], [id number] Absolute Neut 3.3 X10 3/uL Normal 2.0-7.7 [facility] Comment on above: Performed By: #### L 100.0100, L500.4050, L501.9520, L501.2300 #### [facility] [address] [place], [address] Basophils/100 WBC (Bld) 0.5 % Normal 0-1 [facility] Comment on above: Performed By: #### L 100.0100, L500.4050, L501.9520, L501.2300 #### [facility] [address] [place], [address] Eosinophils/100 WBC (Bld) 0.0 % Normal 0-5 [facility] Comment on above: Performed By: #### L 100.0100, L500.4050, L501.9520, L501.2300 #### [facility] [address] [place], [address] Erythrocyte distribution width (RBC) [Ratio] 13.0 % Normal 11.6-14.6 [facility] Comment on above: Performed By: #### L 100.0100, L500.4050, L501.9520, L501.2300 #### [facility] [address] [place], [address] Hematocrit (Bld) [Volume fraction] 35.7 % Low 37-47 [facility] Comment on above: Performed By: #### L 100.0100, L500.4050, L501.9520, L501.2300 #### [facility] [address] [place], [id number] Hemoglobin (Bld) [Mass/Vol] 12.4 g/dL Normal 12.0-15.0 [facility] Comment on above: Performed By: #### L 100.0100, L500.4050, L501.9520, L501.2300 #### [facility] [address] [place], [id number] IG% 0.400 Normal 0.0-0.9 [facility] Comment on above: Result Comment: IG% - Immature Granulocytes (promyelocytes, myelocytes and metamyelocytes) > 1% indicates that a LEFT SHIFT is Present. Performed By: #### L 100.0100, L500.4050, L501.9520, L501.2300 #### [facility] [address] [place], [address] Lymphocytes/100 WBC (Bld) 25.9 % Normal 19-41 [facility] Comment on above: Performed By: #### L 100.0100, L500.4050, L501.9520, L501.2300 #### [facility] [address] [place], [address] MCH (RBC) [Entitic mass] 29.6 pg Normal 27.0-32.0 [facility] Comment on above: Performed By: #### L 100.0100, L500.4050, L501.9520, L501.2300 #### [facility] [address] [place], [address] MCHC (RBC) [Mass/Vol] 34.7 g/dL Normal 32-36 [facility] Comment on above: Performed By: #### L 100.0100, L500.4050, L501.9520, L501.2300 #### [facility] [address] [place], [address] MCV (RBC) [Entitic vol] 85.2 fL Normal 81-99 [facility] Comment on above: Performed By: #### L 100.0100, L500.4050, L501.9520, L501.2300 #### [facility] [address] [place], [address] Monocytes/100 WBC (Bld) 13.2 % High 0-10 [facility] Comment on above: Performed By: #### L 100.0100, L500.4050, L501.9520, L501.2300 #### [facility] [address] [place], [address] Neutrophils/100 WBC (Bld) 60.0 % Normal 47-70 [facility] Comment on above: Performed By: #### L 100.0100, L500.4050, L501.9520, L501.2300 #### [facility] [address] [place], [address] Nucleated RBC (Bld) [#/Vol] 0 10*3/uL Normal 0-5 [facility] Comment on above: Performed By: #### L 100.0100, L500.4050, L501.9520, L501.2300 #### [facility] [address] [place], [address] Platelet mean volume (Bld) [Entitic vol] 9.4 fL Normal 6.2-12.0 [facility] Comment on above: Performed By: #### L 100.0100, L500.4050, L501.9520, L501.2300 #### [facility] [address] [place], [address] Platelets (Bld) [#/Vol] 195 10*3/uL Normal 150-450 [facility] Comment on above: Performed By: #### L 100.0100, L500.4050, L501.9520, L501.2300 #### [facility] [address] [place], [address] RBC (Bld) [#/Vol] 4.19 10*6/uL Low 4.2-5.4 [facility] Comment on above: Performed By: #### L 100.0100, L500.4050, L501.9520, L501.2300 #### [facility] [address] [place], [address] RDW SD 39.7 fl Normal 35.1-43.9 [facility] Comment on above: Performed By: #### L 100.0100, L500.4050, L501.9520, L501.2300 #### [facility] [address] [place], [id number] WBC (Bld) [#/Vol] 5.6 10*3/uL Normal 4.4-11.0 [facility] Comment on above: Performed By: #### L 100.0100, L500.4050, L501.9520, L501.2300 #### [facility] [address] [place], [id number] Comprehensive Metabolic Prof [facility] 12-08-2024 Albumin [Mass/Vol] 4.1 g/dL Normal 3.4-4.8 [facility] Comment on above: Performed By: #### L 100.0100, L500.4050, L501.9520, L501.2300 #### [facility] [address] [place], [address] Albumin/Globulin [Mass ratio] 2.0 {ratio} Normal 0.9-2.4 [facility] Comment on above: Performed By: #### L 100.0100, L500.4050, L501.9520, L501.2300 #### [facility] [address] [place], [id number] ALK PHOS 44 U/L Normal 35-104 [facility] Comment on above: Performed By: #### L 100.0100, L500.4050, L501.9520, L501.2300 #### [facility] [address] [place], [address] ALT [Catalytic activity/Vol] 13 U/L Normal <=34 [facility] Comment on above: Performed By: #### L 100.0100, L500.4050, L501.9520, L501.2300 #### [facility] [address] [place], [address] AST [Catalytic activity/Vol] 15 U/L Normal <=31 [facility] Comment on above: Performed By: #### L 100.0100, L500.4050, L501.9520, L501.2300 #### [facility] [address] [place], [address] Bilirubin [Mass/Vol] 0.36 mg/dL Normal 0.00-1.30 [facility] Comment on above: Performed By: #### L 100.0100, L500.4050, L501.9520, L501.2300 #### [facility] [address] [place], [address] BUN/CRE 20.3 RATIO High 10-20 [facility] Comment on above: Performed By: #### L 100.0100, L500.4050, L501.9520, L501.2300 #### [facility] [address] [place], [address] Calcium [Mass/Vol] 9.8 mg/dL Normal 7.6-11.0 [facility] Comment on above: Performed By: #### L 100.0100, L500.4050, L501.9520, L501.2300 #### [facility] [address] [place], [address] Chloride [Moles/Vol] 99 mmol/L Normal 98-108 [facility] Comment on above: Performed By: #### L 100.0100, L500.4050, L501.9520, L501.2300 #### [facility] [address] [place], [address] CO2 [Moles/Vol] 25.4 mmol/L Normal 21.0-32.0 [facility] Comment on above: Performed By: #### L 100.0100, L500.4050, L501.9520, L501.2300 #### [facility] [address] [place], [address] Creatinine [Mass/Vol] 0.55 mg/dL Low 0.70-1.20 [facility] Comment on above: Performed By: #### L 100.0100, L500.4050, L501.9520, L501.2300 #### [facility] [address] [place], [address] ECRCL 48.67 ml/min Low 50-250 [facility] Comment on above: Performed By: #### L 100.0100, L500.4050, L501.9520, L501.2300 #### [facility] [address] [place], [address] GAP 10 Normal 5-15 [facility] Comment on above: Performed By: #### L 100.0100, L500.4050, L501.9520, L501.2300 #### [facility] [address] [place], [address] GFR/1.73 sq M.predicted among non-blacks MDRD (S/P/Bld) [Vol rate/Area] 94 mL/min/{1.73_m2} Normal >60 [facility] Comment on above: Result Comment: mL/m in/1.73m2 CKD-EPI Creatinine Equation (2020) Performed By: #### L 100.0100, L500.4050, L501.9520, L501.2300 #### [facility] [address] [place], [address] Globulin (S) [Mass/Vol] 2.1 g/dL Low 2.2-4.2 [facility] Comment on above: Performed By: #### L 100.0100, L500.4050, L501.9520, L501.2300 #### [facility] [address] [place], [address] Glucose [Mass/Vol] 97 mg/dL Normal 70-99 [facility] Comment on above: Performed By: #### L 100.0100, L500.4050, L501.9520, L501.2300 #### [facility] [address] [place], [address] Potassium [Moles/Vol] 4.0 mmol/L Normal 3.3-5.1 [facility] Comment on above: Performed By: #### L 100.0100, L500.4050, L501.9520, L501.2300 #### [facility] [address] [place], [address] Sodium [Moles/Vol] 134 mmol/L Normal 133-145 [facility] Comment on above: Performed By: #### L 100.0100, L500.4050, L501.9520, L501.2300 #### [facility] [address] [place], [address] T PROT 6.2 g/dL Normal 5.9-8.4 [facility] Comment on above: Performed By: #### L 100.0100, L500.4050, L501.9520, L501.2300 #### [facility] [address] [place], [address] Urea nitrogen [Mass/Vol] 11 mg/dL Normal 4-19 [facility] Comment on above: Performed By: #### L 100.0100, L500.4050, L501.9520, L501.2300 #### [facility] [address] [place], [address] Eosinophil percentageOrdered By: Ranjeet Wisdom on 12-08-2024 Eosinophils/100 WBC (Bld) 0.0 % 0-5 [facility] Erythrocyte distribution wid th ratioOrdered By: Ranjeet Wisdom on 12-08-2024 Erythrocyte distribution width (RBC) [Ratio] 13.0 % 11.6-14.6 [facility] Erythrocyte distribution wid th standard deviationOrdered By: Ranjeet Wisdom on 12-08-2024 Erythrocyte distribution width (RBC) [Ratio] 39.7 fl 35.1-43.9 [facility] Extremity Upper without Cont raon 12-08-2024 Extremity Upper without Contra [facility] Imaging Services [address] [place] [address] Extremity Upper without Contra MR#: [id number] Acct: [id number] Name: LEONEL ANDRE (BONNIE) Rep #: [id number] : 1945 F [id number] From: Evelio Ghosh MD PCP: Dr. Femi Baeza MD Status: ADM IN Study: Extremity Upper without Contra Date of Exam: Exam# [id number] Ordering Dr: Ranjeet Aldana DO PROCEDURE: EXTREMITY UPPER WITHOUT CONTRA 12/08/2024 REASON FOR EXAM: EXPECTED TURN ROTATOR CUFF TECHNIQUE: Procedure Code: CTEUWO Modality: CT Procedure: EXTREMITY UPPER WITHOUT CONTRA Coronal and Sagittal reconstruction series were provided. One or more dose reduction techniques were used (e.g., Automated exposure control, adjustment of the mA and/or kV according to patient size, use of iterative reconstruction technique. FINDINGS: No acute fracture or dislocation. There is a high riding humeral head with severe subacromial space narrowing. The humeral head contacts the inferior surface of the acromion. Additional degenerative changes including marginal osteophytosis and subchondral cyst formation are noted within the humeral head. There is borderline widening of the acromioclavicular joint, measuring 5.4 mm. Grossly, the acromioclavicular ligament appears intact. Additional degenerative changes are noted at the glenohumeral joint including joint space narrowing, subchondral cyst formation, and marginal osteophytosis. Moderate degenerative changes are noted within the visualized cervicothoracic spine including joint space narrowing, small Schmorl's nodes, and marginal osteophytosis. CT/Extremity Upper without Contra IMPRESSION: 1. High-riding humeral head with severe subacromial space narrowing, suggestive of a chronic rotator cuff injury. 2. Moderate degenerative changes at the acromioclavicular joint. 3. Borderline widening of the acromioclavicular joint. Reading Location: [id number] CC: Dr. Ranjeet Aldana DO; Dr. Femi Baeza MD Chief School Finance Officer: Signed Normal [facility] Hematocrit Auto (Bld) [Volum e fraction]Ordered By: Ranjeet Wisdom on 12-08-2024 Hematocrit (Bld) [Volume fraction] 35.7 % Low 37-47 [facility] Hemoglobin measurementOrdere d By: Ranjeet Wisdom on 12-08-2024 Hemoglobin (Bld) [Mass/Vol] 12.4 g/dL 12.0-15.0 [facility] Immature granulocytes/100 WB C Auto (Bld)Ordered By: Ranjeet Wisdom on 12-08-2024 Immature granulocytes/100 WBC (Bld) 0.400 % 0.0-0.9 [facility] Comment on above: IG% - Immature Granu locytes (promyelocytes, myelocytes and metamyelocytes) > 1% indicates that a LEFT SHIFT is Present. Laboratory - Chemistry and C hemistry - challengeOrdered By: Ranjeet Wisdom on 12-08-2024 AST [Catalytic activity/Vol] 15 U/L <32 [facility] MCV (mean corpuscular volume ) determinationOrdered By: Ranjeet Wisdom on 12-08-2024 MCV (RBC) [Entitic vol] 85.2 fL 81-99 [facility] Mean corpuscular hemoglobin (MCH) determinationOrdered By: Ranjeet Wisdom on 12-08-2024 MCH (RBC) [Entitic mass] 29.6 pg 27.0-32.0 [facility] Mean corpuscular hemoglobin concentration (MCHC) determinationOrdered By: Ranjeet Wisdom on 12-08-2024 MCHC (RBC) [Mass/Vol] 34.7 g/dL 32-36 [facility] Mean platelet volume determi nationOrdered By: Ranjeet Wisdom on 10-07-2025 Platelet mean volume (Bld) [Entitic vol] 9.4 fL 6.2-12.0 [facility] Monocyte percentageOrdered B y: Ranjeet Wisdom on 12-08-2024 Monocytes/100 WBC (Bld) 13.2 % High 0-10 [facility] Neutrophil percentageOrdered By: Ranjeet Wisdom on 12-08-2024 Neutrophils/100 WBC (Bld) 60.0 % 47-70 [facility] Nucleated red blood cell per centageOrdered By: Ranjeet Wisdom on 12-08-2024 Nucleated RBC/100 WBC (Bld) [Ratio] 0 % 0-5 [facility] Osmolality urOrdered By: Carlos Wisdom on 12-08-2024 Osmolality (U) [Osmolality] 306 mOsm/KG >50 [facility] Comment on above: Normal Urine Referen ce Ranges Random: 50 - 1200 mOsm/kg H20 depending on fluid intake Random: >850 mOsm/kg after 12 hour fluid restriction 24 hour: ~300 - 900 mOsm/kg H2O Osmolality, Serumon 12-09-19 25 OSMOLALITY,SER 306 mOsm/KG High 280-301 [facility] Comment on above: Performed By: #### L 501.7300 #### [facility] [address] [place], [address] Osmolality, Urineon 12-09-19 25 OSMOLALITY,UR 306 mOsm/KG Normal [facility] Comment on above: Result Comment: Normal Urine Reference Ranges Random: 50 - 1200 mOsm/kg H20 depending on fluid intake Random: >850 mOsm/kg after 12 hour fluid restriction 24 hour: 300 - 900 mOsm/kg H2O Performed By: #### L 501.7400 ####[facility] [address] [place], [address] Phosphoruson 12-08-2024 Phosphate [Mass/Vol] 2.1 mg/dL Low 2.7-4.5 [facility] Comment on above: Performed By: #### L 100.0100, L500.4050, L501.9520, L501.2300 #### [facility] [address] [place], [place], [address] Platelet countOrdered By: Talon Wisdom on 12-08-2024 Platelets (Bld) [#/Vol] 195 10*3/uL 150-450 [facility] RBC Auto (Bld) [#/Vol]Ordere d By: Ranjeet Wisdom on 12-08-2024 RBC (Bld) [#/Vol] 4.19 10*6/uL Low 4.2-5.4 [facility] Serum globulin measurementOr dered By: Ranjeet Wisdom on 12-08-2024 Globulin (S) [Mass/Vol] 2.1 g/dL Low 2.2-4.2 [facility] Serum or plasma alanine de jesus otransferase (ALT) measurementOrdered By: Ranjeet Wisdom on 12-08-2024 ALT [Catalytic activity/Vol] 13 U/L <35 [facility] Serum or plasma albumin erendira urement (mass/volume)Ordered By: Ranjeet Wisdom on 12-08-2024 Albumin [Mass/Vol] 4.1 g/dL 3.4-4.8 [facility] Serum or plasma albumin/glob ulin mass ratioOrdered By: Ranjeet Wisdom on 12-08-2024 Albumin/Globulin [Mass ratio] 2.0 {ratio} 0.9-2.4 [facility] Serum or plasma alkaline rudy sphatase measurementOrdered By: Ranjeet Wisdom on 12-08-2024 ALP [Catalytic activity/Vol] 44 U/L 35-104 [facility] TSH DL <= 0.005 mIU/L QnOrde red By: Ranjeet Wisdom on 12-08-2024 TSH Qn 2.570 uIU/mL 0.300-4.20 0 [facility] Thyroid Stim Hormone (TSH)on 12-08-2024 TSH 2.570 uIU/mL Normal 0.300-4.20 0 [facility] Comment on above: Performed By: #### L 100.0100, L500.4050, L501.3820, L501.2300 #### [facility] [address] [place], [address] Total proteinOrdered By: Carlos Wisdom on 12-08-2024 Protein [Mass/Vol] 6.2 g/dL 5.9-8.4 [facility] White blood cell (WBC) count Ordered By: Ranjeet Artis on 12-08-2024 WBC (Bld) [#/Vol] 5.6 10*3/uL 4.4-11.0 [facility] Abdomen/Pelvis W IV Cont ONL Yon 12-07-2024 Abdomen/Pelvis W IV Cont ONLY [facility] Imaging Services [address] [place], [place] [address] Abdomen/Pelvis W IV Cont ONLY MR#: [id number] Acct: [id number] Name: LEONEL ANDRE (BONNIE) Rep #: [id number] : 1945 F [id number] From: Matt Gandara MD PCP: Dr. Femi Baeza MD Status: REG ER Study: Abdomen/Pelvis W IV Cont ONLY Date of Exam: Exam# [id number] Ordering Dr: Juan Shaffer DO PROCEDURE: CT ABDOMEN/PELVIS W IV CONT ONLY 12/07/2024 REASON FOR EXAM: CONSTIPATION, N ABD PAIN TECHNIQUE: Procedure Code: [id number] Modality: CT Procedure: ABDOMEN/PELVIS W IV CONT ONLY Coronal and Sagittal reconstruction series were provided. CONTRAST: Isovue 300 VOLUME: 97 mL One or more dose reduction techniques were used (e.g., Automated exposure control, adjustment of the mA and/or kV according to patient size, use of iterative reconstruction technique. RADIATION DOSE SUMMARY: DLP: 469.9 mGycm COMPARISON: 04/30/2024, 02/21/2024. FINDINGS: Lung bases: Clear. Liver: No significant abnormality. Gallbladder: Surgically absent. Postoperative/age-related prominence of the CBD. Spleen: Unremarkable. Pancreas: Diffuse age-related fatty atrophy. Adrenals: Unremarkable, no discrete nodules. Kidneys: Symmetric enhancement. Stable size/appearance of a 12 mm solid enhancing lesion at the lateral aspect of the lower right kidney. Complex peripherally enhancing cystic lesion measuring up to 22 mm in the anterior aspect of the lower right kidney. Complex heterogeneously enhancing 21 mm lesion within the upper pole of the right kidney. Multifocal cortical thinning/scarring in the left kidney, likely related to reported partial nephrectomy. No hydroureteronephrosis on either side. Bladder: Unremarkable. Reproductive Organs: Grossly unremarkable uterus and adnexae. Bowel: Moderate hiatal hernia containing the stomach fundus and GE junction in the posterior left lower mediastinum. No evidence of bowel obstruction or active inflammatory process. Appendix is not identified with certainty but there are no localized pericecal inflammatory changes. Moderate-large stool burden throughout the colon suggesting constipation. Lymph nodes: No suspicious lymph node enlargement. Vasculature: Abdominal aorta is tortuous but normal in caliber. Moderate atherosclerotic disease. Peritoneum / Retroperitoneum: No ascites or free air. Bones: No acute or aggressive osseous abnormality. Advanced lumbar levoscoliosis. CT/Abdomen/Pelvis W IV Cont ONLY IMPRESSION: 1. No acute or active inflammatory intra-abdominal pathology identified. 2. Moderate-large colonic stool burden suggesting constipation. 3. No significant change in multiple right renal mass lesions as noted. Recommend follow-up. Reading Location: [id number] CC: Dr. Juan Shaffer DO; Dr. Femi Baeza MD Chief School Finance Officer: Signed Normal [facility] Absolute lymphocyte countOrd ered By: Juan Shaffer on 12-07-2024 Lymphocytes Auto (Unsp spec) [#/Vol] 0.90 10*3/uL 0.83-4.51 [facility] Absolute neutrophil countOrd ered By: Juan Shaffer on 12-07-2024 Neutrophils (Bld) [#/Vol] 4.5 10*3/uL 2.0-7.7 [facility] Anion gap in Serum or Plasma Ordered By: Juan Shaffer on 12-07-2024 Anion gap [Moles/Vol] 14 mmol/L 5-15 [facility] Automated lymphocyte count a s percentage of total leukocytesOrdered By: Juan Shaffer on 12-07-2024 Lymphocytes/100 WBC Auto (Unsp spec) 12.9 % Low 19-41 [facility] BUN/creatinine ratioOrdered By: Juan Shaffer on 12-07-2024 Urea nitrogen/Creatinine [Mass ratio] 35.4 mg/mg High 10-20 [facility] Basophil percentageOrdered B y: Juan Shaffer on 12-07-2024 Basophils/100 WBC (Bld) 0.6 % 0-1 [facility] Bilirubin Test strip Ql (U)O rdered By: Juan Shaffer on 12-07-2024 Bilirubin Ql (U) Negative Negative [facility] Bilirubin, totalOrdered By: Juan Shaffer on 12-07-2024 Bilirubin [Mass/Vol] 0.44 mg/dL 0.00-1.30 [facility] Blood manual differential co mment interpretation (narrative result)Ordered By: Juan Shaffer on 12-07-2024 Manual differential comment Asael (Bld) [Interp] SCANNED [facility] CBC W/Diff, Automatedon PLT EST ADEQUATE Normal ADEQ [facility] Comment on above: Performed By: #### L 100.0100, L500.4050, L501.9520, L501.2300 #### [facility] [address] [place], [address] SMEAR COMMENT SCANNED Normal [facility] Comment on above: Performed By: #### L 100.0100, L500.4050, L501.9520, L501.2300 #### [facility] [address] [place], [address] Carbon dioxide, total [Moles /volume] in Central venous bloodOrdered By: Juan Shaffer on 12-07-2024 CO2 [Moles/Vol] 25.1 mmol/L 21.0-32.0 [facility] Chloride assayOrdered By: Drake Shaffer on 12-07-2024 Chloride [Moles/Vol] 88 mmol/L Low 98-108 [facility] Comprehensive Metabolic Prof ilon 12-07-2024 Albumin [Mass/Vol] 4.5 g/dL Normal 3.4-4.8 [facility] Comment on above: Performed By: #### L 100.0100, L500.4050, L501.9520, L501.2300 #### [facility] [address] [place], [address] Albumin/Globulin [Mass ratio] 1.9 {ratio} Normal 0.9-2.4 [facility] Comment on above: Performed By: #### L 100.0100, L500.4050, L501.9520, L501.2300 #### [facility] [address] [place], [address] ALK PHOS 56 U/L Normal 35-104 [facility] Comment on above: Performed By: #### L 100.0100, L500.4050, L501.9520, L501.2300 #### [facility] [address] [place], [address] ALT [Catalytic activity/Vol] 16 U/L Normal <=34 [facility] Comment on above: Performed By: #### L 100.0100, L500.4050, L501.9520, L501.2300 #### [facility] [address] [place], [address] AST [Catalytic activity/Vol] 18 U/L Normal <=31 [facility] Comment on above: Performed By: #### L 100.0100, L500.4050, L501.9520, L501.2300 #### [facility] [address] [place], [address] Bilirubin [Mass/Vol] 0.44 mg/dL Normal 0.00-1.30 [facility] Comment on above: Performed By: #### L 100.0100, L500.4050, L501.9520, L501.2300 #### [facility] [address] [place], [address] BUN/CRE 35.4 RATIO High 10-20 [facility] Comment on above: Performed By: #### L 100.0100, L500.4050, L501.9520, L501.2300 #### [facility] [address] [place], [address] Calcium [Mass/Vol] 10.4 mg/dL Normal 7.6-11.0 [facility] Comment on above: Performed By: #### L 100.0100, L500.4050, L501.9520, L501.2300 #### [facility] [address] [place], [address] Chloride [Moles/Vol] 88 mmol/L Low 98-108 [facility] Comment on above: Performed By: #### L 100.0100, L500.4050, L501.9520, L501.2300 #### [facility] [address] [place], [address] CO2 [Moles/Vol] 25.1 mmol/L Normal 21.0-32.0 [facility] Comment on above: Performed By: #### L 100.0100, L500.4050, L501.9520, L501.2300 #### [facility] [address] [place], [address] Creatinine [Mass/Vol] 0.57 mg/dL Low 0.70-1.20 [facility] Comment on above: Performed By: #### L 100.0100, L500.4050, L501.9520, L501.2300 #### [facility] [address] [place], [address] ECRCL 49.22 ml/min Low 50-250 [facility] Comment on above: Performed By: #### L 100.0100, L500.4050, L501.9520, L501.2300 #### [facility] [address] [place], [address] GAP 14 Normal 5-15 [facility] Comment on above: Performed By: #### L 100.0100, L500.4050, L501.9520, L501.2300 #### [facility] [address] [place], [address] GFR/1.73 sq M.predicted among non-blacks MDRD (S/P/Bld) [Vol rate/Area] 93 mL/min/{1.73_m2} Normal >60 [facility] Comment on above: Result Comment: mL/m in/1.73m2 CKD-EPI Creatinine Equation (2020) Performed By: #### L 100.0100, L500.4050, L501.9520, L501.2300 #### [facility] [address] [place], [address] Globulin (S) [Mass/Vol] 2.4 g/dL Normal 2.2-4.2 [facility] Comment on above: Performed By: #### L 100.0100, L500.4050, L501.9520, L501.2300 #### [facility] [address] [place], [address] Glucose [Mass/Vol] 128 mg/dL High 70-99 [facility] Comment on above: Performed By: #### L 100.0100, L500.4050, L501.9520, L501.2300 #### [facility] [address] [place], [address] Potassium [Moles/Vol] 3.2 mmol/L Low 3.3-5.1 [facility] Comment on above: Performed By: #### L 100.0100, L500.4050, L501.9520, L501.2300 #### [facility] [address] [place], [address] Sodium [Moles/Vol] 127 mmol/L Low 133-145 [facility] Comment on above: Performed By: #### L 100.0100, L500.4050, L501.9520, L501.2300 #### [facility] [address] [place], [address] T PROT 7.0 g/dL Normal 5.9-8.4 [facility] Comment on above: Performed By: #### L 100.0100, L500.4050, L501.9520, L501.2300 #### [facility] [address] [place], [address] Urea nitrogen [Mass/Vol] 20 mg/dL High 4-19 [facility] Comment on above: Performed By: #### L 100.0100, L500.4050, L501.9520, L501.2300 #### [facility] [address] [place], [address] Emergency Department Summary on 12-07-2024 Emergency Department Summary [facility] Medical Records Department [address] [place] [address] Emergency Department Summary 12/07/24 MR#: [id number] Acct: [id number] Name: LEONEL ANDRE) Blayne Rep #: [id number] : 1945 79 From: Juan Shaffer DO PCP: Dr. Femi Baeza MD Status:REG ER Location: ED HPI History of Present Illness Chief Complaint: Weakness Narrative Narrative: Patient is a 79-year-old female with past medical history of anxiety, cancer, GERD, primary hyperparathyroidism, bowel obstruction, osteoporosis, hypertension who presented to the emergency department chief complaint of constipation and diarrhea. States that she has chronic constipation and she is on Linzess currently as well as some other medications for constipation. States that MiraLAX did not help her in the past. States that she has had previous abdominal surgeries including tubal ligation as well as cholecystectomy. Patient states that she had bowel movement earlier today however notes that lately they have been painful and is large stool burden while having the bowel movement. She states that she also feels very shaky and weak overall. States that she has been eating denies any vomiting. States that she lives with her 2 sons. In triage noted notes that she was having pain in her right shoulder which she explained to me and after clarifying states that she had a fall in August and has been having ongoing pain since then and has seen multiple providers for this and there is suspicion that she tore her rotator cuff. She states that she is here today for weakness and constipation as well as nausea. [facility] Medical History Wears glasses Cancer Anxiety Ambulates [...] (vitamin D3) 25 2,000 unit PO DAILY SUPPLEMENT 12/06/24 History mcg (1,000 unit) tablet (Vitamin D3) oxybutynin chloride 5 mg tablet 5 mg PO BID BLADDER 12/26/1512/07 History diltiazem HCl 180 mg capsule,24 360 mg PO DAILY htn 09/08/2012/07 History hr,extended release lorazepam 0.5 mg tablet 0.5 mg PO DAILY ANXIETY 09/08/20 1 History acetaminophen 500 mg tablet 500 mg PO Q6H PRN pain 08/23/22 History (Tylenol Extra Strength) cetirizine 5 mg tablet 5 mg PO DAILY PRN allergy symptoms 08/23/22 Unknown History fluticasone propionate 50 1 spray intranasal DAILY PRN 08/23 Unknown History mcg/actuation nasal allergy symptoms spray,suspension omeprazole 40 mg capsule,delayed 40 mg PO DAILY GERD 08/23/2212/06 History release denosumab 60 mg/mL subcutaneous 60 mg subcut [id number] OSTEOPOROSIS 10/03/22 Unknown Rx syringe (Prolia) #1 mL Lactobacillus rhamnosus GG 20 1 cell PO DAILY GUT HEALTH 4 12/06/24 History billion cell capsule (Probiotic Digestive Care) ondansetron 8 mg disintegrating 8 mg PO Q8H PRN nausea and 4 Unknown Rx tablet vomiting #15 tabs losartan 50 mg tablet 50 mg PO BID HTN 06/08/24 12/07/24 History docusate sodium 100 mg capsule 100 mg PO TID constipation #90 cap s 08/11/24 12/07/24 Rx linaclotide 145 mcg capsule 145 mcg PO QAM IBS #30 caps 12/07/24 Rx (Linzess) lactulose 10 gram/15 mL oral 10 g (15 mL) PO TID CONSTIPATION 0 11/13/24 12/07/24 Rx solution #1,200 mL fexofenadine 180 mg tablet 180 mg PO DAILY ALLERGY SYMPTOMS 1 12/06/24 History (Louisa Allergy) hydrochlorothiazide 50 mg tablet 50 mg PO DAILY DIURETIC 12/07/24 1 History Allergy/AdvReac Type Severity Reaction Status Date / Time lisinopril Allergy Swelling Verified 12/07/24 16:06 esomeprazole (From Nexium) AdvReac Nausea/Vom/ Verified 12/07/24 16:06 Diarrhea Family History Father Alcoholism Brother Alcoholism Mother Arthritis Hypertension Osteoporosis Surgical History Hx of colonoscopy History of tubal ligation History of cholecystectomy History of knee replacement H/O partial nephrectomy Social History Smoking Status: Former smoker alcohol intake: never what type of physical activity do you participate in: bicycling ROS ROS ED ROS Narrative Const (more content not included)... Normal [facility] Eosinophil percentageOrdered By: Juan Shaffer on 12-07-2024 Eosinophils/100 WBC (Bld) 14.4 % High 0-5 [facility] Erythrocyte distribution wid th ratioOrdered By: Juan Shaffer on 12-07-2024 Erythrocyte distribution width (RBC) [Ratio] 12.7 % 11.6-14.6 [facility] Erythrocyte distribution wid th standard deviationOrdered By: Juan Shaffer on 12-07-2024 Erythrocyte distribution width (RBC) [Ratio] 39.8 fl 35.1-43.9 [facility] Glomerular filtration rate ( GFR) estimation/1.73 sq m using serum, plasma, or whole bOrdered By: Juan Shaffer on 12-07-2024 GFR/1.73 sq M.predicted among non-blacks MDRD (S/P/Bld) [Vol rate/Area] 93 mL/min/{1.73_m2} >60 [facility] Comment on above: mL/min/1.73m2 CKD-EP I Creatinine Equation (2020) H AND P Exam - [facility] 12-07-2024 H&P Exam - Hospitalist [facility] Medical Records Department [address] [place] [address] H P Exam - Hospitalist 12/07/242116 MR#: [id number] Acct: [id number] Name: LEONEL ANDRE (BONNIE) Rep #: [id number] : 1945 79 From: Ranjeet Aldana DO PCP: Dr. Femi Baeza MD Status:ADM IN [id number] - General General Date of Admission: 12/07/24 Date of Service: 12/07/24 Chief Complaint: Constipation, Nausea and Generalized Weakness. HPI Narrative LEONEL ANDRE (BONNIE), is a 79 F with a past medical history of essential hypertension; on losartan BID, diltiazem and hydrochlorothiazide, former tobacco abuse, IBS; of constipation-type on linaclotide plus lactulose TID, OAB with history of bladder prolapse; on oxybutynin BID, depression with anxiety; on lorazepam daily, osteoporosis; on vitamin D3 plus denosumab q. 6 months, history of primary hyperparathyroidism, seasonal allergies; on cetirizine, fexofenadine and fluticasone NS, GERD; on omeprazole, history of diverticulosis and colonic stricture; s/p colonoscopy (03/2024), history of bowel obstruction, history of cholecystectomy, remote history of tubal ligation, OA; s/p TKR and sciatica with scoliosis and lumbar radiculopathy plus history of renal cell carcinoma; s/p partial Left nephrectomy (2011) who presents to [facility] ER complaining of constipation, nausea and generalized weakness. Ms. Andre reports her symptoms began approximately 3-4 days prior to admission with acute worsening of chronic constipation in spite of taking linaclotide and lactulose. She states she has taken polyethylene glycol in the past which did not help her. She admits to having a large bowel movement earlier today that was painful with a large stool burden which left her feeling shaky and generally weak overall. She states she has been eating normally and denies vomiting. She also admits to pain in her right shoulder since a fall in August with multiple providers having evaluated her for this with suspicion for a possible rotator cuff tear with recent steroid injection by orthopedist Dr. Luciano on November 09, 2024. She denies associated fever, chills, changes in vision, discharge from eyes, chest pain, palpitations, heart racing, lower extremity edema, shortness of breath, cough, dysuria, hematuria, headache or rash. In the ER she was noted to have Hyponatremia of 127 mmol/L with Hypokalemia of 3.2 mmol/L present on admission both due to suspected Adverse Drug Reaction to hydrochlorothiazide with a corresponding CT scan of the abdomen and pelvis with IV contrast that revealed no acute or active inflammatory intra-abdominal pathology identified with moderate-large colonic stool burden suggesting constipation and no significant change in Multiple Right Renal Mass Lesions with follow-up recommended complicated by clinical evidence of Acute-on Chronic Constipation compounded by Generalized Weakness. She was then admitted to the PCU for ongoing care for status is expected to extend beyond 2 midnights. [facility] Medical History Wears glasses Cancer Anxiety Ambulates [...] (vitamin D3) 25 2,000 unit PO DAILY SUPPLEMENT 12/06/24 History mcg (1,000 unit) tablet (Vitamin D3) oxybutynin chloride 5 mg tablet 5 mg PO BID BLADDER 12/26/1512/07 History diltiazem HCl 180 mg capsule,24 360 mg PO DAILY htn 09/08/2012/07 History hr,extended release lorazepam 0.5 mg tablet 0.5 mg PO DAILY ANXIETY 09/08/20 1 History acetaminophen 500 mg tablet 500 mg PO Q6H PRN pain 08/23/22 History (Tylenol Extra Strength) cetirizine 5 mg tablet 5 mg PO DAILY PRN allergy symptoms 08/23/22 Unknown History fluticasone propionate 50 1 spray intranasal DAILY PRN 08/23 Unknown History mcg/actuation nasal allergy symptoms spray,suspension omeprazole 40 mg capsule,delayed 40 mg PO DAILY GERD 08/23/2212/06 History release denosumab 60 mg/mL subcutaneous 60 mg subcut [id number] OSTEOPOROSIS 10/03/22 Unknown Rx syringe (Prolia) #1 mL Lactobacillus rhamnosus GG 20 1 cell PO DAILY G[facility] HEALTH 4 12/06/24 History billion cell capsule (Probiotic Digestive Care) ondansetron 8 mg disintegrating 8 mg PO Q8H PRN nausea and 4 Unknow (more content not included)... Normal [facility] Hematocrit Auto (Bld) [Volum e fraction]Ordered By: Juan Shaffer on 12-07-2024 Hematocrit (Bld) [Volume fraction] 38.9 % 37-47 [facility] Hemoglobin measurementOrdere d By: Juan Shaffer on 12-07-2024 Hemoglobin (Bld) [Mass/Vol] 13.5 g/dL 12.0-15.0 [facility] Immature granulocytes/100 WB C Auto (Bld)Ordered By: Juan Shaffer on 12-07-2024 Immature granulocytes/100 WBC (Bld) 0.100 % 0.0-0.9 [facility] Comment on above: IG% - Immature Granu locytes (promyelocytes, myelocytes and metamyelocytes) > 1% indicates that a LEFT SHIFT is Present. Ketones Test strip Ql (U)Ord ered By: Juan Shaffer on 12-07-2024 Ketones Ql (U) Negative Negative [facility] - Chemistry and C hemistry - challengeOrdered By: Juan Shaffer on 12-07-2024 AST [Catalytic activity/Vol] 18 U/L <32 [facility] Lipaseon 12-07-2024 Lipase [Catalytic activity/Vol] 16 U/L Normal 13-75 [facility] Comment on above: Result Comment: Plea se note: LIPASE revised reference range effective 22. New Lipase methodology. Expected to produce lower values than the previous assay method. NEW Reference Range: 13 - 75 U/L Performed By: #### L 100.0100, L500.4050, L501.9520, L501.2300 #### [facility] [address] [place], [place], [address] Lipase measurementOrdered By : Juan Shaffer on 12-07-2024 Lipase [Catalytic activity/Vol] 16 U/L 13-75 [facility] Comment on above: Please note:LIPASE r evised reference range effective 22. New Lipase methodology. Expected to produce lower values than the previous assay method. NEW Reference Range: 13 - 75 U/L MCV (mean corpuscular volume ) determinationOrdered By: Juan Shaffer on 12-07-2024 MCV (RBC) [Entitic vol] 86.3 fL 81-99 [facility] Magnesiumon 12-07-2024 Magnesium [Mass/Vol] 1.6 mg/dL Normal 1.5-2.2 [facility] Comment on above: Performed By: #### L 100.0100, L500.4050, L501.9520, L501.2300 #### [facility] [address] [place], [place], [address] Magnesium measurement (mass/ volume)Ordered By: Juan Shaffer on 12-07-2024 Magnesium (Unsp spec) [Mass/Vol] 1.6 mg/dL 1.5-2.2 [facility] Mean corpuscular hemoglobin (MCH) determinationOrdered By: Juan Shaffer on 12-07-2024 MCH (RBC) [Entitic mass] 29.9 pg 27.0-32.0 [facility] Mean corpuscular hemoglobin concentration (MCHC) determinationOrdered By: Juan Shaffer on 12-07-2024 MCHC (RBC) [Mass/Vol] 34.7 g/dL 32-36 [facility] Mean platelet volume determi nationOrdered By: Juan Shaffer on 12-07-2024 Platelet mean volume (Bld) [Entitic vol] 9.8 fL 6.2-12.0 [facility] Microscopic analysis of urin e for red blood cells (RBC)Ordered By: Juan Shaffer on 12-07-2024 Microscopic analysis of urine for red blood cells (RBC) 0-5 SEEN /hpf 0-5 [facility] Monocyte percentageOrdered B y: Juan Shaffer on 12-07-2024 Monocytes/100 WBC (Bld) 8.3 % 0-10 [facility] Mucus LM Ql (Urine sed)Order ed By: Juan Shaffer on 12-07-2024 Mucus Ql (Urine sed) 0 SEEN /hpf [facility] Neutrophil percentageOrdered By: Juan Shaffer on 12-07-2024 Neutrophils/100 WBC (Bld) 63.7 % 47-70 [facility] Nitrite Test strip Ql (U)Ord ered By: Juan Shaffer on 12-07-2024 Nitrite Ql (U) Negative Negative [facility] Nucleated red blood cell per centageOrdered By: Juan Shaffer on 12-07-2024 Nucleated RBC/100 WBC (Bld) [Ratio] 0 % 0-5 [facility] Platelet countOrdered By: Drake Shaffer on 12-07-2024 Platelets (Bld) [#/Vol] 223 10*3/uL 150-450 [facility] Platelet estimateOrdered By: Juan Shaffer on 12-07-2024 Platelets LM Ql (Bld) ADEQUATE ADEQ [facility] Potassium measurement (mass/ volume)Ordered By: Juan Shaffer on 12-07-2024 Potassium (Unsp spec) [Mass/Vol] 3.2 mmol/L Low 3.3-5.1 [facility] Protein Test strip Ql (U)Ord ered By: Juan Shaffer on 12-07-2024 Protein Ql (U) 15 mg/dl High Negative [facility] RBC Auto (Bld) [#/Vol]Ordere d By: Juan Shaffer on 12-07-2024 RBC (Bld) [#/Vol] 4.51 10*6/uL 4.2-5.4 [facility] Serum creatinine measurement (mass/volume)Ordered By: Juan Shaffer on 12-07-2024 Creatinine [Mass/Vol] 0.57 mg/dL Low 0.70-1.20 [facility] Serum globulin measurementOr dered By: Juan Shaffer on 12-07-2024 Globulin (S) [Mass/Vol] 2.4 g/dL 2.2-4.2 [facility] Serum glucose measurement (m ass/volume)Ordered By: Juan Shaffer on 12-07-2024 Glucose [Mass/Vol] 128 mg/dL High 70-99 [facility] Serum or plasma alanine de jesus otransferase (ALT) measurementOrdered By: Juan Shaffer on 12-07-2024 ALT [Catalytic activity/Vol] 16 U/L <35 [facility] Serum or plasma albumin erendira urement (mass/volume)Ordered By: Juan Shaffer on 12-07-2024 Albumin [Mass/Vol] 4.5 g/dL 3.4-4.8 [facility] Serum or plasma albumin/glob ulin mass ratioOrdered By: Juan Shaffer on 12-07-2024 Albumin/Globulin [Mass ratio] 1.9 {ratio} 0.9-2.4 [facility] Serum or plasma alkaline rudy sphatase measurementOrdered By: Juan Shaffer on 12-07-2024 ALP [Catalytic activity/Vol] 56 U/L 35-104 [facility] Serum or plasma calcium erendira urement (mass/volume)Ordered By: Juan Shaffer on 12-07-2024 Calcium [Mass/Vol] 10.4 mg/dL 7.6-11.0 [facility] Serum or plasma urea nitroge n measurement (mass/volume)Ordered By: Juan Shaffer on 12-07-2024 Urea nitrogen [Mass/Vol] 20 mg/dL High 4-19 [facility] Sodium levelOrdered By: Anette Shaffer on 12-07-2024 Sodium [Moles/Vol] 127 mmol/L Low 133-145 [facility] Squamous epithelial cells de tection in urine sediment by light microscopyOrdered By: Juan Shaffer on 12-07-2024 Epithelial cells.squamous LM Ql (Urine sed) 0-5 SEEN /hpf 5-10 [facility] Total proteinOrdered By: Tevin Shaffer on 12-07-2024 Protein [Mass/Vol] 7.0 g/dL 5.9-8.4 [facility] Urinalysis, Completeon 10-06 -2025 EPI,SQUAMOUS 0-5 SEEN Normal 5-10 [facility] Comment on above: Order Comment: CLEAN CATCH Performed By: #### L 100.0100, L500.4050, L501.9520, L501.2300 #### [facility] [address] [place], [address] RBC 0-5 SEEN Normal 0-5 [facility] Comment on above: Order Comment: CLEAN CATCH Performed By: #### L 100.0100, L500.4050, L501.9520, L501.2300 #### [facility] [address] [place], [address] WBC 0-5 SEEN Normal 0-5 [facility] Comment on above: Order Comment: CLEAN CATCH Performed By: #### L 100.0100, L500.4050, L501.9520, L501.2300 #### [facility] [address] [place], [address] BACTERIA 0 SEEN Normal None Seen [facility] Comment on above: Order Comment: CLEAN CATCH Performed By: #### L 100.0100, L500.4050, L501.9520, L501.2300 #### [facility] [address] [place], [address] Mucus Ql (Urine sed) 0 SEEN Normal [facility] Comment on above: Order Comment: CLEAN CATCH Performed By: #### L 100.0100, L500.4050, L501.9520, L501.2300 #### [facility] [address] [place], [address] Urine clarityOrdered By: Tevin Shaffer on 12-07-2024 Clarity (U) Clear Clear [facility] Urine color determinationOrd ered By: Juan Shaffer on 12-07-2024 Color (U) Straw Yellow [facility] Urine glucose detectionOrder ed By: Juan Shaffer on 12-07-2024 Glucose Ql (U) Normal mg/dl Normal [facility] Urine leukocyte esterase det ection by dipstickOrdered By: Juan Shaffer on 12-07-2024 Leukocyte esterase Test strip Ql (U) Negative Negative [facility] Urine pHOrdered By: Juan miller on 12-07-2024 pH (U) 7.0 [pH] 5.0 - 8.0 [facility] Urine sediment bacteria coun t by microscopy (number/high power field)Ordered By: Juan Shaffer on 12-07-2024 Bacteria LM.HPF (Urine sed) [#/Area] 0 /[HPF] None Seen [facility] Urine specific gravity measu rementOrdered By: Juan Shaffer on 12-07-2024 Specific gravity (U) [Rel density] 1.010 1.002-1.03 0 [facility] Urine urobilinogen measureme ntOrdered By: Juan Shaffer on 12-07-2024 Urobilinogen Ql (U) Normal mg/dl Normal [facility] White blood cell (WBC) count Ordered By: Juan Shaffer on 12-07-2024 WBC (Bld) [#/Vol] 7.0 10*3/uL 4.4-11.0 [facility] White blood cell countOrdere d By: Juan Shaffer on 12-07-2024 White blood cell count 0-5 SEEN /hpf 0-5 [facility] Cerv Spine 2 or 3 Viewson Cerv Spine 2 or [address] [facility] Imaging Services [address] [place], [place] [address] Cerv Spine 2 or 3 Views MR#: [id number] Acct: [id number] Name: LEONEL ANDRE (BONNIE) Rep #: [id number] : 1945 F 79 From: Aditya Silva MD PCP: Dr. Femi Baeza MD Status: DEP AMB Study: Cerv Spine 2 or 3 Views Date of Exam: 11/09/24 Exam# [id number] Ordering Dr: Con Luciano DO PROCEDURE: CERV [...] 2. Other findings as noted. Reading Location: [place] [address] CC: Dr. Con Luciano DO; Dr. Femi Baeza MD Chief School Finance Officer: Signed Normal [facility] Orthopedic Visit Reporton Orthopedic Visit Report [facility] [address] [place] [address] OFFICE VISIT Date of Service: 11/09/24 MR#: [id number] Acct: [id number] Name: LEONEL ANDRE (PEG) Blayne Rep #: [id number] : 1945 Provider: Dr. Con heredia DO Age/Sex: 79/F Location: [facility] Status: Signed Intake Vital Signs 06/12/24 11:59 [...] denosumab 60 mg/mL subcutaneous 60 mg subcut [id number] #1 mL 11/09/24 Rx syringe (Prolia) Lactobacillus [...] her p (more content not included)... Normal [facility] Shoulder min 2 Viewson 11-09 Shoulder min 2 Views [facility] Imaging Services [address] [place], [place] [id number] Shoulder min 2 Views MR#: [id number] Acct: [id number] Name: LEONEL ANDRE (BONNIE) Rep #: [id number] : 1945 F 79 From: Jose hare MD PCP: Dr. Femi Baeza MD Status: DEP AMB Study: Shoulder min 2 Views Date of Exam: 11/09/24 Exam# [id number] Ordering Dr: Con Luciano DO PROCEDURE: SHOULDER [...] with the rotator cuff pathology. Reading Location: [id number] CC: Dr. Con Luciano DO; Dr. Femi Baeza MD Chief School Finance Officer: Signed [facility] 10-28-2024 [facility] Office Visit (INTMWS ) LEONEL ANDRE ([id number]) 1945 F Date Time Provider Department 10/28/24 4:00 PM FEMI BAEZA INTMWS During your visit today, we recorded the following information about you: Pulse Blood pressure Weight 64/minute 140/68 56.3 kg Femi Baeza MD 10/28/2024 6:18 PM Signed Subjective Leonel Andre is a 79 year old female. Recording using Scan software for draft documentation of the visit was discussed with the patient/authorized customer engagement representative; all questions welcomed and answered. Patient/authorized customer engagement representative agreed to proceed Patient presents with: F/U 3 Month Right Shoulder Pain:- Peg Andre experienced onset after a fall on the last Saturday of August. - Pain localized to the right shoulder and upper arm.- Unable to raise arm to use a blow dryer or curling iron; requires assistance from left arm.- Peg tried post acute care registered nurse, which worsened the pain.- Completed 6 sessions of physical therapy with massage and stretching; no improvement, possibly worsened.- Physical therapist suggested possible rotator cuff injury and recommended seeing an orthopedic doctor.- No previous injuries to the right shoulder. Knee Pain:- Bilateral knee pain following the fall.- Pain has improved with exercise bike use; knees are a little looser and less sore, but soldering machine tender. Constipation:- Chronic issue, currently having [...] DIP, URI (more content not included)... Normal [facility] UA DIP, URINE (POC)on 2024 BILIRUBIN UA (POCT) Negative Negative [facility] CLARITY UA (POCT) Clear [facility] COLOR UA (POCT) Light yellow [facility] GLUCOSE UA (POCT) Negative Negative mg/dL [facility] Hemoglobin Ql (U) Trace-intact Abnormal Negative [facility] Interpretation and review of laboratory results Abnormal [facility] KETONE UA (POCT) Negative Negative mg/dL [facility] LEUKOCYTES UA (POCT) Negative Negative [facility] NITRITE UA (POCT) Negative Negative [facility] PH UA (POCT) 6.5 4.5 - 8.0 [facility] Protein Ql (U) Negative Negative mg/dL [facility] SPECIFIC GRAVITY UA (POCT) 1.010 1.005 - 1.030 [facility] UROBILINOGEN UA (POCT) 0.2 Kindra l E.U./dL [facility] Location:[address], [address] [place] [address] POINT OF CARE [facility] 25([place])D3 [facility] 25-hydroxyvitamin D3 [Mass/Vol] 45.3 ng/mL Normal 31.0-80.0 [facility] Comment on above: Order Comment: Speci men Type: BLOOD SPECIMENOrdering Facility: [facility] Address: [address] [place] [address] Result Comment: Clas sification of 25 [place] Vitamin D status: Deficiency/Insufficiency: < or = 30 ng/ml. Sufficiency/Optimal Levels: 31-80 ng/mL Toxicity: > 100 ng/mL. Test performed by chemiluminescent immunoassay. Performed By: #### 6 30-4 #### [facility] CLIA [id number] [address] [place] [address] [place] Comprehensive metabolic 2000 panelon 10-27-2024 Albumin [Mass/Vol] 4.4 g/dL Normal 3.9-4.9 [facility] Comment on above: Order Comment: Speci men Type: BLOOD SPECIMENOrdering Facility: [facility] Address: [address] [place] [address] Performed By: #### 6 30-4 #### [facility] CLIA [id number] [address] [place] [address] [place] ALP [Catalytic activity/Vol] 49 U/L Normal 34-123 [facility] Comment on above: Order Comment: Speci men Type: BLOOD SPECIMENOrdering Facility: [facility] Address: [address] [place] [address] Performed By: #### 6 30-4 #### [facility] CLIA [id number] [address] [place] [address] [place] ALT [Catalytic activity/Vol] 15 U/L Normal 7-38 [facility] Comment on above: Order Comment: Speci men Type: BLOOD SPECIMENOrdering Facility: [facility] Address: [address] [place] [address] Performed By: #### 6 30-4 #### [facility] CLIA [id number] [address] [place] [address] [place] Anion gap [Moles/Vol] 12 mmol/L Normal 8-15 [facility] Comment on above: Order Comment: Speci men Type: BLOOD SPECIMENOrdering Facility: [facility] Address: [address] [place] [address] Performed By: #### 6 30-4 #### [facility] CLIA [id number] [address] [place] [address] [place] AST [Catalytic activity/Vol] 15 U/L Normal 13-35 [facility] Comment on above: Order Comment: Speci men Type: BLOOD SPECIMENOrdering Facility: [facility] Address: [address] [place] [address] Performed By: #### 6 30-4 #### [facility] CLIA [id number] [address] [place] [address] [place] Bilirubin [Mass/Vol] 0.2 mg/dL Normal 0.2-1.3 [facility] Comment on above: Order Comment: Speci men Type: BLOOD SPECIMENOrdering Facility: [facility] Address: [address] [place] [address] Performed By: #### 6 30-4 #### [facility] CLIA [id number] [address] [place] [address] [place] Calcium [Mass/Vol] 10.8 mg/dL High 8.5-10.2 [facility] Comment on above: Order Comment: Speci men Type: BLOOD SPECIMENOrdering Facility: [facility] Address: [address] [place] [address] Performed By: #### 6 30-4 #### [facility] CLIA [id number] [address] [place] [address] [place] Chloride [Moles/Vol] 101 mmol/L Normal 98-107 [facility] Comment on above: Order Comment: Speci men Type: BLOOD SPECIMENOrdering Facility: [facility] Address: [address] [place] [address] Performed By: #### 6 30-4 #### [facility] CLIA [id number] [address] [place] [address] [place] CO2 [Moles/Vol] 26 mmol/L Normal 22-30 [facility] Comment on above: Order Comment: Speci men Type: BLOOD SPECIMENOrdering Facility: [facility] Address: [address] [place] [address] Performed By: #### 6 30-4 #### [facility] CLIA [id number] [address] [place] [address] [place] Creatinine [Mass/Vol] 0.58 mg/dL Normal 0.58-0.96 [facility] Comment on above: Order Comment: Speci men Type: BLOOD SPECIMENOrdering Facility: [facility] Address: [address] [place] [address] Performed By: #### 6 30-4 #### [facility] CLIA [id number] [address] [place] [address] [place] eGFRcr SerPlBld CKD-EPI 2020 93 mL/min/1.73m??? Normal >=60 [facility] Comment on above: Order Comment: Speci men Type: BLOOD SPECIMENOrdering Facility: [facility] Address: [address] [place] [address] Result Comment: Kailyn mated Glomerular Filtration Rate [...] GFR. Performed By: #### 6 30-4 #### [facility] CLIA [id number] [address] [place] [address] [place] Glucose [Mass/Vol] 95 mg/dL Normal 74-99 [facility] Comment on above: Order Comment: Speci men Type: BLOOD SPECIMENOrdering Facility: [facility] Address: [address] [place] [address] Result Comment: The [place] Diabetes Association (ADA) provides guidance for cutoff [...] Standards of Medical Care in Diabetes 2016, [place] Diabetes Association. Diabetes Care. 2016.39(Suppl 1). Performed By: #### 6 30-4 #### [facility] CLIA [id number] [address] [place] [address] [place] Potassium [Moles/Vol] 4.2 mmol/L Normal 3.7-5.1 [facility] Comment on above: Order Comment: Speci men Type: BLOOD SPECIMENOrdering Facility: [facility] Address: [address] [place] [address] Performed By: #### 6 30-4 #### [facility] CLIA [id number] [address] [place] [address] [place] Protein [Mass/Vol] 6.9 g/dL Normal 6.3-8.0 [facility] Comment on above: Order Comment: Speci men Type: BLOOD SPECIMENOrdering Facility: [facility] Address: [address] [place] [address] Performed By: #### 6 30-4 #### [facility] CLIA [id number] [address] [place] [address] [place] Sodium [Moles/Vol] 139 mmol/L Normal 136-144 [facility] Comment on above: Order Comment: Speci men Type: BLOOD SPECIMENOrdering Facility: [facility] Address: [address] [place] [address] Performed By: #### 6 30-4 #### [facility] CLIA [id number] [address] [place] [address] [place] Urea nitrogen [Mass/Vol] 16 mg/dL Normal 7-21 [facility] Comment on above: Order Comment: Speci men Type: BLOOD SPECIMENOrdering Facility: [facility] Address: [address] [place] [address] Performed By: #### 6 30-4 #### [facility] CLIA [id number] [address] [place] [address] [place] Lipid 1996 panelon 5 Cholesterol [Mass/Vol] 163 mg/dL Normal <[address] [facility] Comment on above: Order Comment: Speci men Type: BLOOD SPECIMENOrdering Facility: [facility] Address: [address] [place] [address] Result Comment: <200 mg/dL, Desirable 200-239 mg/dL, Borderline high >239 mg/dL, High Performed By: #### 6 30-4 #### [facility] CLIA [id number] [address] [place] [address] [place] Cholesterol in HDL [Mass/Vol] 72 mg/dL Normal >39 [facility] Comment on above: Order Comment: Speci men Type: BLOOD SPECIMENOrdering Facility: [facility] Address: [address] [place] [address] Result Comment: 40-5 9 mg/dL, Acceptable >59 mg/dL, High: Negative risk factor for coronary heart disease <40 mg/dL, Low: Positive risk factor for coronary heart disease Performed By: #### 6 30-4 #### [facility] CLIA [id number] [address] [place] [address] [place] Cholesterol in LDL [Mass/Vol] 82 mg/dL Normal <100 [facility] Comment on above: Order Comment: Speci men Type: BLOOD SPECIMENOrdering Facility: [facility] Address: [address] [place] [address] Result Comment: <100 mg/dL, Optimal 100-129 mg/dL, Near optimal/above optimal 130-159 mg/dL, Borderline high 160-189 mg/dL, High >189 mg/dL, Very high Secondary prevention optimal LDL Cholesterol levels are recommended to be <70 mg/dL LDL cholesterol is calculated using the Stuart-NIH equation. Performed By: #### 6 30-4 #### [facility] CLIA [id number] [address] [place] [address] [place] Cholesterol in LDL/Cholesterol in HDL [Mass ratio] 1.14 {ratio} Normal <2.54 [facility] Comment on above: Order Comment: Speci men Type: BLOOD SPECIMENOrdering Facility: [facility] Address: [address] [place] [address] Result Comment: Refe annelce: 1. National Cholesterol Education Program ATP III Guideline At-A-Glance Quick Desk Reference: National Heart, Lung, and Blood [place]. National Institutes of Health. 2001: NIH Publication No. 01-3305. 2. An International Atherosclerosis Society position paper: global recommendations for the management of dyslipidemia: executive summary, Atherosclerosis. 2014: 232(2):410-413. Performed By: #### 6 30-4 #### [facility] CLIA [id number] [address] [place] [address] [place] Cholesterol in VLDL [Mass/Vol] 7 mg/dL Normal <30 [facility] Comment on above: Order Comment: Speci men Type: BLOOD SPECIMENOrdering Facility: [facility] Address: [address] [place] [address] Performed By: #### 6 30-4 #### [facility] CLIA [id number] [address] [place] [address] [place] Cholesterol non HDL [Mass/Vol] 91 mg/dL Normal <130 [facility] Comment on above: Order Comment: Speci men Type: BLOOD SPECIMENOrdering Facility: [facility] Address: [address] [place] [address] Result Comment: <130 mg/dL, Optimal 130-159 mg/dL, Near optimal/above optimal 160-189 mg/dL, Borderline high 190-219 mg/dL, High >219 mg/dL, Very high Secondary prevention optimal non HDL Cholesterol levels are recommended to be <100 mg/dL Performed By: #### 6 30-4 #### [facility] CLIA [id number] [address] [place] [address] [place] Cholesterol.total/Chol esterol in HDL [Mass ratio] 2.26 {ratio} Normal <5.10 [facility] Comment on above: Order Comment: Speci men Type: BLOOD SPECIMENOrdering Facility: [facility] Address: [address] [place] [address] Performed By: #### 6 30-4 #### [facility] CLIA [id number] [address] [place] [address] [place] FASTING TIME 12 hrs Normal [facility] Comment on above: Order Comment: Speci men Type: BLOOD SPECIMENOrdering Facility: [facility] Address: [address] [place] [address] Performed By: #### 6 30-4 #### [facility] CLIA [id number] [address] [place] [address] [place] Triglyceride [Mass/Vol] 43 mg/dL Normal <150 [facility] Comment on above: Order Comment: Speci men Type: BLOOD SPECIMENOrdering Facility: [facility] Address: [address] [place] [address] Result Comment: <150 mg/dL, Normal 150-199 mg/dL, Borderline high 200-499 mg/dL, High >499 mg/dL, Very high Performed By: #### 6 30-4 #### [facility] CLIA [id number] [address] [place] [address] [place] CNPDiana 10-26-2024 CNPN Telephone (INTMWS) LEONEL ANDRE ([id number]) 1945 F Date Time Provider Department 10/26/24 [...] Date Reviewed: 09/08/2024 Reviewed by: Xuan Brandon, WASTE RECYCLER.ELECTRONIC WARFARE TECHNICAL - Fully Assessed Reason for Visit: Orders [681] Primary Visit Diagnosis:Essential hypertension [I10] Other Visit Diagnosis:Vitamin D deficiency [E55.9] Order(s):COMPREHENSIVE METABOLIC PANEL [SQCMP] Order #: [id number] FUTURE VITAMIN D 25 HYDROXY [SQVITD] Order #: [id number] FUTURE LIPID PANEL, FASTING [SQLIPB] Order #: [id number] FUTURE Prescriptions as of 10/26/2024 - LORazepam [...] Status:Closed by MADELAINE GRIFFITHS on 10/26/24 Normal [facility] PT D/C Summary (1)on 025 PT D/C Summary (1) [facility] [place] [address] / REHABILITATION SERVICES DISCHARGE SUMMARY MR#: [id number] Acct: [id number] Name: LEONEL ANDRE (PEG) Blayne Rep #: [id number] : 1945 79 From: Armond Garza DPT, OCS, CSCS Referring DrEffie: SADIE Govea Older Status: REG RCR Insurance: [employer] SELF PAY INSURANCE Discharge Summary D/C summary: It has been my pleasure to treat LEONEL (PEG) A SARIKA referred by SADIE Cai, with the diagnosis [...] Comments: Pt to continue neck exercises at [facility] and wants to see shoulder specialist. d/c sentence: If there are questions or concerns regarding this patient's physical therapy, please feel free to call me at [phone]. Thank you for the referral of this patient. Sincerely, Armond Garza, DPT, OCS, CSCS Balance/Gait/Functional tests Balance/Special Test Scores Oswestry Neck Score: 27 Improvement % Improvement: 25 10/12/24 8026 CC: SADIE Govea [facility]; Dr. Femi Baeza MD EBG Signed Normal [facility] Gastroenterology Visit Repor ton 09-23-2024 Gastroenterology Visit Report [facility] [address] [place] [address] OFFICE VISIT Date of Service: 09/23/24 MR#: [id number] Acct: [id number] Name: LEONEL ANDRE (BONNIE) Rep #: [id number] : 1945 Provider: ALBINA Leach Age/Sex: 79/F Location: [facility] Status: Signed with Addenda ADDENDUM by ALBINA [...] denosumab 60 mg/mL subcutaneous 60 mg subcut K4MSTNEO #1 mL 06/08/24 Rx syringe (Prolia) Lactobacillus [...] continues Linzess, lactulose, docusate sodium, and omeprazole. [facility] Medical History Wears glasses Cancer Anxiety Ambulates [...] numerous ED visits for suspected rectal prolapse. [facility] ED 02.21.24 w/ watery diarrhea followed by n/v for 24 hours. Work up mostly unremarkable. Suspected viral gastroenteritis. Discharged after IV fluids and potassium repletion. CT abd/pelvis .; 1. Nonspecific fluid-filled small bowel loops and colon without evidence of bowel obstruction could be due (more content not included)... Normal [facility] Inital Evaluation (1) - PTon 09-14-2024 Inital Evaluation (1) - PT [facility] [address] [place] [address]. [address] [place] [address] / REHABILITATION SERVICES INITIAL EVALUATION MR#: [id number] Acct: [id number] Name: LEONEL ANDRE Rep #: [id number] : 1945 79 From: Armond Garza DPT, OCS, CSCS Referring DrEffie: SADIE Lovett Status: REG RCR Insurance: [employer] SELF PAY INSURANCE Patient's Visit Information Visit Information Visit Information: LEONEL ANDRE is a 79 year old F referred to Physical Therapy by SADIE Cai with a diagnosis of chronic neck pain. Date of Evaluation: 09/14/24 Physical Therapist: Armond Greg, DPT, OCS, CSCS Visit Plan Frequency: 2x /Week Duration: 4-6 Weeks Plan: 2x/week for 3-6 weeks IE HEP: scap circles 20x, R UT stretch 30 5x, R c/s rotation ROM 20x, cervical [...] to evaluate your patient. For Medicare and Med (more content not included)... [facility] CNOVon 09-08-2024 CNOV Office Visit (INTMWS ) SARIKALEONEL Blayne ([id number]) 1945 F Date Time Provider Department 09/08/24 1:40 PM XUAN BRANDON INTMWS During your visit today, we recorded the following information about you: Temperature Pulse Respiration Blood pressure 99.7 degrees 74/minute 14/minute 136/70 Weight Height 55.6 kg 1.676 m Xuan Brandon, WASTE RECYCLER.[facility] 09/08/2024 2:01 PM Signed We discussed your [...] send a referral for physical therapy to [facility], as you prefer to go there. They [...] your history of neck pain and prior post acute care registered nurse: - You mentioned that post acute care registered nurse worsened your neck pain and was not [...] you have any additional concerns. Xuan Brandon, WASTE RECYCLER.[facility] 09/08/2024 2:10 PM Signed CC: Patient presents with: Same Day Appointment: fell approx 1.5week ago c/o shoulder pain and bilateral knee pain from fall. Patient is having problems lifting right arm HPI Recording using Scan software for draft documentation of the visit was discussed with the patient/authorized customer engagement representative; all questions welcomed and answered. Patient/authorized customer engagement representative agreed to proceed Peg Andre is [...] neck. She has tried physical therapy and post acute care registered nurse for her neck pain, but reports that [...] in Feet Postmenopausal atrophic vaginitis 11/08/2004 Scoliosis 08/28/ (more content not included)... Normal [facility] No Panel Informationon 09-08 IMPRESSION: 1. Marked degenerative changes in the cervical spine. No acute pathology identified. 2. Marked degenerative changes in the RIGHT shoulder 3. Marked degenerative changes in the spine Chief School Finance Officer: VASU Transcribe Date/Time: Sep 08 2024 2:43P Dictated by : MICHELLE MCCOLLUM DO This examination was interpreted and the report reviewed and electronically signed by: MICHELLE MCCOLLUM DO on Sep 08 2024 2:48PM [facility] DIVISION OF RADIOLOGY Radiology Study observation (narrative) [facility] No Panel InformationOrdered By: Ccf Provider on 09-08-2024 [facility] XR CERVICAL 2V FLEX/EXTon XR CERVICAL 2V [...] PRV SX TO CSPINE' FELL RECENTLY (accession [id number]), PT STS IN FOR RT SHOULDER PAIN FROM FALL RECENTLY. NO PRV SX TO RT SHOULDER. (accession [id number]) TECHNIQUE: Views obtained: XR CERVICAL 2V FLEX/EXT, [...] 3. Marked degenerative changes in the spine Chief School Finance Officer: VASU Transcribe Date/Time: Sep 08 2024 2:43P Dictated by : MICHELLE MCCOLLUM DO This examination was interpreted and the report reviewed and electronically signed by: MICHELLE MCCOLLUM DO on Sep 08 2024 2:48PM EST [id number] Normal [facility] XR Cervical spine 2 or 3 vie [...] PRV SX TO CSPINE' FELL RECENTLY (accession [id number]), PT STS IN FOR RT SHOULDER PAIN FROM FALL RECENTLY. NO PRV SX TO RT SHOULDER. (accession [id number]) TECHNIQUE: Views obtained: XR CERVICAL 2V FLEX/EXT, [...] Mild bony demineralization. DIVISION OF RADIOLOGY Provider, [facility] - 09/08/2024 * * *Final [...] PRV SX TO CSPINE' FELL RECENTLY (accession [id number]), PT STS IN FOR RT SHOULDER PAIN FROM FALL RECENTLY. NO PRV SX TO RT SHOULDER. (accession [id number]) TECHNIQUE: Views obtained: XR CERVICAL 2V FLEX/EXT, [...] 3. Marked degenerative changes in the spine Chief School Finance Officer: PSCB Transcribe Date/Time: Sep 08 2024 2:43P Dictated by : MICHELLE MCCOLLUM DO This examination was interpreted and the report reviewed and electronically signed by: MICHELLE MCCOLLUM DO on Sep 08 2024 2:48PM EST [facility] XR KNEE 4V AP/PA/LAT/MERCH B ILon 09-08-2024 XR KNEE 4V AP/PA/LAT/MERCH CARLOS * [...] portion of report. No acute pathology identified Chief School Finance Officer: PSCB Transcribe Date/Time: Sep 08 2024 2:48P Dictated by : MICHELLE MCCOLLUM DO This examination was interpreted and the report reviewed and electronically signed by: MICHELLE MCCOLLUM DO on Sep 08 2024 2:50PM EST [id number] Normal [facility] XR Knee - bilateral 4 Viewso n 09-08-2024 IMPRESSION: Findings as discussed in results portion of report. No acute pathology identified Chief School Finance Officer: PSCB Transcribe Date/Time: Sep 08 2024 2:48P [...] dislocations are seen. DIVISION OF RADIOLOGY Provider, [facility] - 09/08/2024 * * *Final [...] portion of report. No acute pathology identified Chief School Finance Officer: PSCB Transcribe Date/Time: Sep 08 2024 2:48P Dictated by : MICHELLE MCCOLLUM DO This examination was interpreted and the report reviewed and electronically signed by: MICHELLE MCCOLLUM DO on Sep 08 2024 2:50PM [facility] XR SHLDR >/=3V AP/GORDY AP/OTH R RTon [...] PRV SX TO CSPINE' FELL RECENTLY (accession [id number]), PT STS IN FOR RT SHOULDER PAIN FROM FALL RECENTLY. NO PRV SX TO RT SHOULDER. (accession [id number]) TECHNIQUE: Views obtained: XR CERVICAL 2V FLEX/EXT, [...] 3. Marked degenerative changes in the spine Chief School Finance Officer: [facility] Transcribe Date/Time: Sep 08 2024 2:43P Dictated by : MICHELLE MCCOLLUM DO This examination was interpreted and the report reviewed and electronically signed by: MICHELLE MCCOLLUM DO on Sep 08 2024 2:48PM EST [id number] Normal [facility] XR Shoulder - right 3 Viewso n [...] PRV SX TO CSPINE' FELL RECENTLY (accession [id number]), PT STS IN FOR RT SHOULDER PAIN FROM FALL RECENTLY. NO PRV SX TO RT SHOULDER. (accession [id number]) TECHNIQUE: Views obtained: XR CERVICAL 2V FLEX/EXT, [...] Mild bony demineralization. DIVISION OF RADIOLOGY Provider, [facility] - 09/08/2024 * * *Final [...] PRV SX TO CSPINE' FELL RECENTLY (accession [id number]), PT STS IN FOR RT SHOULDER PAIN FROM FALL RECENTLY. NO PRV SX TO RT SHOULDER. (accession [id number]) TECHNIQUE: Views obtained: XR CERVICAL 2V FLEX/EXT, [...] 3. Marked degenerative changes in the spine Chief School Finance Officer: VASU Transcribe Date/Time: Sep 08 2024 2:43P Dictated by : MICHELLE MCCOLLUM DO This examination was interpreted and the report reviewed and electronically signed by: MICHELLE MCCOLLUM DO on Sep 08 2024 2:48PM [facility] CNOVon 08-03-2024 CNOV Office Visit (INTMWS ) LEONEL ANDRE ([id number]) 1945 F Date Time Provider Department 08/03/24 2:40 PM XUAN BRANDON INTMWS During your visit today, we recorded the following information about you: Pulse Respiration Blood pressure Weight 56/minute 12/minute 140/66 55.3 kg Xuan Brandon, WASTE RECYCLER.ELECTRONIC WARFARE TECHNICAL 08/03/2024 3:08 PM Signed CC: Patient presents with: Pain: Neck x 6 weeks creating headache daily HPI Recording using ambient AI software for draft documentation of the visit was discussed with the patient/authorized customer engagement representative; all questions welcomed and answered. Patient/authorized customer engagement representative agreed to proceed Peg is a [...] supply. oxybutynin (more content not included)... Normal [facility] Gastroenterology Visit Repor ton 07-15-2024 Gastroenterology Visit Report [facility] Gastroenterology [address] [place] [address] OFFICE VISIT Date of Service: 07/15/24 MR#: [id number] Acct: [id number] Name: LEONEL ANDRE Rep #: [id number] : 1945 Provider: ALBINA Leach Age/Sex: 79/F Location: [facility] Status: Signed Intake Vital Signs 06/12/24 [...] denosumab 60 mg/mL subcutaneous 60 mg subcut [id number] #1 mL 06/08/24 Rx syringe (Prolia) Lactobacillus [...] days. Pt continues Linzess, and omeprazole daily. [facility] Medical History Wears glasses Cancer Anxiety Ambulates [...] numerous ED visits for suspected rectal prolapse. 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 [facility] ED 03.16.24; with no bowel movement for 3 weeks and mild intermittent rectal bleeding. KUB 03.16.24; Moderate to large amount of colonic stool and gas. [facility] ED 03.20.24 with constipation and suspected rectal prolapse per pt. Normal work up. Physical exam with no indication of rectal prolapse. Colonoscopy 03.30.24;- Preparation of the colon was poor. - Diverticulosis in the recto-sigmoid colon and in the sigmoid colon. - Stool in the entire examined colon. - (more content not included)... [facility] Office Visit (INTMWS ) LEONEL ANDRE ([id number]) 1945 F Date Time Provider Department 07/02/24 3:40 PM FEMI BAEZA INTMWS During your visit [...] constipation. She was also not pleased with [facility]. She felt her colon biopsy results were [...] ICD9: 211.3, ICD10: K63.5 Pathology retrieved from [facility]: serrated adenoma. - CONSULT TO GASTROENTEROLOGY Femi Baeza MD Allergies As of Date: 07/02/2024 (more content not included)... Normal [facility] Bacteria Ur Culton Bacteria identified Cx Nom (U) ORGANISM ID: 1 <10,000 CFU/ml Normal urogenital blu Normal [facility] Comment on above: Performed By: #### 6 30-4 #### [facility] CLIA [id number] [address] [place] [address] [facility] CNOVon 06-25-2024 CNOV Office Visit (INTMWS ) LEONEL ANDRE ([id number]) 1945 F Date Time Provider Department 06/25/24 4:40 PM FEMI BAEZA INTMWS During your visit today, we recorded the following information about you: Pulse Respiration Blood pressure Weight 62/minute 16/minute 134/67 57.5 kg Femi Baeza MD 06/25/2024 7:18 PM Signed This note was created using PT [employer] Tiket Network[employer]. Subjective Leonel Andre is a 79 year old female. Patient presents with: Swelling: In CARLOS lower legs with weight loss x 1 month Recording using Scan software for draft documentation of the visit was discussed with the patient/authorized customer engagement representative; all questions welcomed and answered. Patient/authorized customer engagement representative agreed to proceed Peg is a [...] No respir (more content not included)... Normal [facility] XR CHEST 2V FRONTAL/LATon XR CHEST 2V [...] hiatal hernia. IMPRESSION: No acute radiographic abnormality. Chief School Finance Officer: VASU Transcribe Date/Time: Jun 27 2024 10:48A Dictated by : ANGELY ANTONIO MD This examination was interpreted and the report reviewed and electronically signed by: ANGELY ANTONIO MD on Jun 27 2024 10:49AM EST [id number] Normal [facility] Office Visit Reporton 2024 Office Visit Report [facility] [address] [place] [address] OFFICE VISIT Date of Service: 06/24/24 MR#: [id number] Acct: [id number] Patient: LEONEL ANDRE Rep #: [id number] : 1945 Provider: SADIE parnell Age/Sex: 79/F Location: [facility] Status: Signed Intake Vital Signs 06/12/24 11:59 Height 5 ft 4 in Intake Visit Reasons: Prolia - B B Chief Complaint: constipation Allergies lisinopril Allergy (Verified 06/12/24 11:58) Swelling esomeprazole (From Nexium) Adverse Reaction (Verified 06/12/24 11:58) Nausea/Vom/Diarrhea Have you fallen in the past year?: No Office Procedures Injections Procedure performed by: Walker Cast Lot number: [id number] Social Media Manager: Marcy date: 10/01/26 Dose of injection: 1 mL Site of injection: Sub-Q Medication Given: Yes Is this a patient provided medication?: No Office Meds Prolia 60 mg/mL subcutaneous syringe Performing Provider: SADIE Roy Performing Location: [facility] Administered by: Walker Cast RN on 06/24/24 15:41 Dose Route Admin Location Dispensed Lot Number Expiration Date ND Man ufacturer 60 mg subcut Right Arm 1 mL [id number] 10/01/26 39450-960-46 AMGEN Assessment and Plan Assessment and Plan Orders: Orders Prolia Injection 06/24/24 M81.0 - Age-related osteoporosis without current pathological fracture Clinical Quality Measures Falls Risk Screening/Assistive Devices Have you fallen in the past year?: No 08/03/24 1259 Date Nola Alfaro TRAVEL TICKETING REVIEWER-C Cosigner Signature: Date (if applicable) CC: Normal [facility] Colonoscopy Reporton 025 Colonoscopy Report [facility] Medical Records Department [address] [place] [address] Colonoscopy Report MR#: [id number] Acct: [id number] Name: LEONEL ANDRE Rep #: [id number] : 1945 79 From: Krzysztof Arroyo DO PCP: Dr. Femi Baeza MD Status:[facility] Patient Name: Leonel Andre Procedure Date: [...] was poor. Procedure Code(s): --- Professional --- 79562, Colonoscopy, flexible; with removal of tumor(s), polyp(s), or other lesion(s) by snare technique CPT copyright 2021 [employer]. All rights reserved. The codes documented in this report are preliminary and upon layer out review may be revised to meet current compliance requirements. Krzysztof Arroyo DO 06/12/2024 1:41:44 PM This report has been signed electronically. Number of Addenda: 0 Note Initiated On: 06/12/2024 1:06 PM 06/12/24 1341 Date Krzysztof Davison Signature: Date (if indicated) CC: Dr. Femi Baeza MD; Krzysztof Arroyo DO Date Dictated: 06/12/24 1306 Date Transcribed: Chief School Finance Officer: CHERELLE Kimble [facility] Medical Records Department [address] [place] [address] Anesthesia Postop Eval I 06/12/24 134 MR#: [id number] Acct: [id number] Name: LEONEL ANDRE Rep #: [id number] : 1945 79 From: Calos Shaffer PCP: Dr. Femi Baeza MD Status:REG [facility] Y Race: C Location: [place] [address] Anesthesia: Postop Eval I Current Vital Signs [...] Anesthesia document: Postop Eval 1 completed: Yes 06/12/241346 Date Calos Emery Signature: Date CC: Signed Normal [facility] MR/[id number] 06-12-2024 MR/POSTOPAN2 [facility] Medical Records Department [address] [place] [address] Anesthesia Postop Eval II 06/12/24 1355 MR#: [id number] Acct: [id number] Name: LEONEL ANDRE Rep #: [id number] : 1945 79 From: Jed Rubio MD PCP: Dr. Femi Baeza MD Status:REG SDC Y Race: C Location: [place] [address] Anesthesia Postop Eval I Sum Postop Eval [...] 0 nausea: No Vomiting: No 06/12/24 1355 Date Jed Rubio MD Cosigner Signature: Date CC: Signed Normal [facility] Surgery Specimen Level Simran 06-12-2024 Surgery Specimen Level IV -------- Patient Age/Sex Location Account Attending Physician -------- LEONEL ANDRE 79/F RISHABH [id number] Krzysztof Arroyo DO -------- Specimen: [id number] Received: 06/15/24 Status: SOLOMON Randall Num: [id number] Spec Type: COLON BX Subm Dr: Krzysztof Arroyo DO HEADER OPERATION: Colonoscopy with polyp PRE-OP DIAGNOSIS: Colonic stricture, GI bleed TISSUE SUBMITTED: A- Rectal polyp -------- MICROSCOPIC DIAGNOSIS A. 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 MICROSCOPIC DESCRIPTION Slides are reviewed. GROSS DESCRIPTION A. Received in formalin in a container labeled with the patient's name, date of , and rectal polyp are multiple pereyra-pink fragments of mucosal tissue measuring 1.5 x 0.7 x 0.2 cm in aggregate. Submitted in toto in A1. B 06/22/2024 CPT:72876 -------- Patient Age/Sex Location Account Attending Physician -------- LEONEL ANDRE 79/F EN [id number] Krzysztof Arroyo DO -------- Signed (signature on file) Dr. Viry Mauricio MD 06/22/24 1103 -------- Normal [facility] Comment on above: Performed By: #### P SUIV ####[facility] [address] [place], [place], [address] MR/PAT.NATALIEon 06-08-2024 MR/PAT.ANE [facility] Medical Records Department [address] [place] [address] PAT - Anesthesia 06/08/24 1155 MR#: [id number] Acct: [id number] Name: LEONEL ANDRE Rep #: [id number] : 1945 79 From: Jed Rubio MD PCP: Dr. 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 Hx Hospitalization No 06/08/24 11:36 Any Problems [...] take am of surgery PONV PONV - metal punch press operator: PONV - metal punch press operator Female Yes 06/08/24 11:36 HX of Motion [...] 03/30/24 10:46 Respiratory Assessment Respiratory Assessment - metal punch press operator: Respiratory Tract Infection Hx - metal punch press operator Hx Respiratory Tract Infection No 06/08/24 11:36 STOP Sleep Apnea STOP Sleep Apnea - metal punch press operator: STOP Sleep Apnea - metal punch press operator Hx Hypertension Yes: CONTROLLED ON MED 06/08/24 [...] Tobacco Use History Tobacco Use History - metal punch press operator: Tobacco Use History - metal punch press operator Tobacco Use Non-smoker 08/31/23 13:32 Smoking Status Former smoker 06/08/24 11:36 Hx Tobacco Use No 06/08/24 11:36 Years Smoking Packs Smoked per Day Smoking Cessation Date was No - quit smoking greater 06/08/24 11:36 within the last 15 years than 15 years ago Hx Smoking Cessation Date 09/09/1939 06/08/24 11:36 Hx Smoking Cessation No 06/08/24 11:36 Counseling Hematologic Medial History 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 Normal [facility] Abdomen/Pelvis WITH Contrast on 04-30-2024 Abdomen/Pelvis WITH Contrast [facility] Imaging Services [address] [place] [id number] Abdomen/Pelvis WITH Contrast MR#: [id number] Acct: [id number] Name: LEONEL ANDRE Rep #: [id number] : 1945 F 79 From: Armond Lieberman MD PCP: Dr. Femi Baeza MD Status: REG CLI Study: Abdomen/Pelvis WITH Contrast Date of Exam: Exam# [id number] Ordering Dr: Zonia Lawrence PROCEDURE: COMPUTED TOMOGRAPHY [...] findings detailed above are stable. Reading Location: [place] [address] CC: Dr. Femi Baeza MD; ALBINA Leach Chief School Finance Officer: Signed Normal [facility] CREATININE FINGERSTICKon CREATININE WB < 1.0 Normal 0.55-1.02 [facility] Comment on above: Performed By: #### L 100.0100, L500.4050, L501.0120, L501.2300 #### [facility] [address] [place], [place], [id number] EGFR WB > 60.0000 Normal >60 [facility] Comment on above: Performed By: #### L 100.0100, L500.4050, L501.9109, L501.2306 #### [facility] [address] [place], [address] Creatinine measurement at dsideOrdered By: Zonia Lawrence on 04-30-2024 Bedside Creatinine < 1.0 mg/dL 0.55-1.02 [facility] EGFROrdered By: Zonia Paulino asov on 04-30-2024 Bedside Estimated GFR (eGFR) > 60.0000 mL/min >60 [facility] GFR/1.73 sq M.predicted among non-blacks MDRD (S/P/Bld) [Vol rate/Area] mL/min/{1.73_m2} >60 [facility] Gastroenterology Visit Repor ton 04-21-2024 Gastroenterology Visit Report [facility] [facility] [address] [place] [address] OFFICE VISIT Date of Service: 04/21/24 MR#: [id number] Acct: [id number] Name: LEONEL ANDRE Rep #: [id number] : 1945 Provider: ALBINA Leach Age/Sex: 79/F Location: [facility] Status: Signed Intake Vital Signs 03/20/24 08:58 [...] feels like she has not had a complete BM. Is taking Colace and omeprazole daily. [facility] Medical History Wears glasses Cancer Anxiety Ambulates [...] presents to the office today for f/u. 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 [facility] ED 1.25; with no bowel movement for 3 weeks and mild intermittent rectal bleeding. KUB 1..25; Moderate to large amount of colonic stool and gas. [facility] ED 1. with constipation and suspected rectal prolapse per [...] splenic flexure. - No specimens collected. OV 225 Pt continues to have issues with constipation since her colonoscopy. She has not had a full bm since the colonoscopy. She is passing gas. She started eating a normal diet about 5 days ago. She admits to being afraid of having a bm as this has caused her prolapse to fall out and bleed in the [...] body h (more content not included)... Normal [facility] Colonoscopy Reporton 025 Colonoscopy Report [facility] Medical Records Department [address] [place] [address] Colonoscopy Report MR#: [id number] Acct: [id number] Name: LEONEL ANDRE Rep #: [id number] : 1945 79 From: Krzysztof Arroyo DO PCP: Dr. Femi Baeza MD Status:REG [facility] Patient Name: Leonel Andre Procedure Date: 03/30/2024 [...] was poor. Procedure Code(s): --- Professional --- 48687, 53, Colonoscopy, flexible; diagnostic, including collection of specimen(s) by brushing or washing, when performed (separate procedure) CPT copyright 2021 [employer]. All rights reserved. The codes documented in this report are preliminary and upon layer out review may be revised to meet current compliance requirements. Krzysztof Arroyo DO 03/30/2024 12:55:32 PM This report has been signed electronically. Number of Addenda: 0 Note Initiated On: 03/30/2024 11:50 AM 03/30/24 1255 Date Krzysztof Arroyo DO Cosigner Signature: Date (if indicated) CC: Dr. Femi Baeza MD; Krzysztof Arroyo DO Date Dictated: 03/30/24 1150 Date Transcribed: Chief School Finance Officer: RF Signed [facility] MR/POSTOP.[facility] 03-30-2024 MR/POSTOP.[facility] Medical Records Department [address] [place] [address] Anesthesia Postop Eval I 03/30/24 1253 MR#: [id number] Acct: [id number] Name: LEONEL ANDRE Rep #: [id number] : 1945 79 From: Calos Shaffer PCP: Dr. Femi Baeza MD Status:REG SDC Y Race: C Location: [place] [address] Anesthesia: Postop Eval I Current Vital Signs [...] 1 completed: Yes 03/30/24 1254 Date Calos Camarenaignjacinta Signature: Date CC: Signed Normal [facility] MR/[id number] 03-30-2024 MR/POSTOPAN2 [facility] Medical Records Department [address] [place] [address] Anesthesia Postop Eval II 03/30/24 1312 MR#: [id number] Acct: [id number] Name: LEONEL ANDRE Rep #: [id number] : 1945 79 From: Kim Campos MD PCP: Dr. Femi Baeza MD Status:REG [facility] Y Race: C Location: [place] [address] Anesthesia Postop Eval I Sum Postop Eval [...] No 03/30/24 1312 Date Kim Campos MD Cosigner Signature: Date CC: Signed Normal [facility] Gastroenterology Visit Repor ton 03-25-2024 Gastroenterology Visit Report [facility] [address] [place] [address] OFFICE VISIT Date of Service: 03/25/24 MR#: [id number] Acct: [id number] Name: LEONEL ANDRE Rep #: [id number] : 1945 Provider: ALBINA Leach Age/Sex: 79/F Location: [facility] Status: Signed Intake Vital Signs 02/21/24 10:22 [...] gal lbladder was removed many years ago. [facility] Medical History Gait disturbance Diverticular disease Primary [...] to the office today for hospital f/u. 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 [facility] ED 1..25; with no bowel movement for 3 weeks and mild intermittent rectal bleeding. KUB 1..25; Moderate to large amount of colonic stool and gas. [facility] ED 1. with constipation and suspected rectal prolapse per pt. Normal work up. Physical exam with no indication of rectal prolapse. OV 25 Pt continues to have issues with constipation. SHe has not had a full bm since the end of February 2024. She has abd a total of four episodes bleeding from her rectum with something falling out. She is able to reduce it back [...] [address] Harden at [facility]. She has been afraid to eat to [...] Appearance: average body habitus and well nourished HENMT Head: normal to inspection Ears: hearing grossly normal bilaterally Nose: external nose normal Face and sinus: normal facial exam Mouth: oral mucosae normal Throat: posterior oropharynx nor (more content not included)... Normal [facility] Absolute lymphocyte countOrd ered By: Librado Vasquez on 03-20-2024 Lymphocytes Auto (Unsp spec) [#/Vol] 0.92 10*3/uL 0.83-4.51 [facility] Absolute neutrophil countOrd ered By: Librado Vasquez on 03-20-2024 Neutrophils (Bld) [#/Vol] 5.1 10*3/uL 2.0-7.7 [facility] Automated lymphocyte count a s percentage of total leukocytesOrdered By: Librado Vasquez on 03-20-2024 Lymphocytes/100 WBC Auto (Unsp spec) 13.8 % Low 19-41 [facility] Basic Metabolic Profile (BMP )on 03-20-2024 BUN/CRE 13.4 RATIO Normal 10-20 [facility] Comment on above: Performed By: #### L 100.0100, L500.4050, L501.9520, L501.2300 #### [facility] [address] [place], [address] CA,Total 10.3 mg/dL High 8.5-10.1 [facility] Comment on above: Performed By: #### L 100.0100, L500.4050, L501.9520, L501.2300 #### [facility] [address] [place], [address] Chloride [Moles/Vol] 101 mmol/L Normal 98-107 [facility] Comment on above: Performed By: #### L 100.0100, L500.4050, L501.9520, L501.2300 #### [facility] [address] [place], [address] CO2 [Moles/Vol] 30.0 mmol/L Normal 21.0-32.0 [facility] Comment on above: Performed By: #### L 100.0100, L500.4050, L501.9520, L501.2300 #### [facility] [address] [place], [address] Creatinine [Mass/Vol] 0.75 mg/dL Normal 0.55-1.02 [facility] Comment on above: Result Comment: The validity of the calculated GFR GFRAA in patients over 70 years has not been determined. Clinical correlation is essential. Performed By: #### L 100.0100, L500.4050, L501.9520, L501.2300 #### [facility] [address] [place], [address] ECRCL 50.05 ml/min Normal [facility] Comment on above: Performed By: #### L 100.0100, L500.4050, L501.9520, L501.2300 #### [facility] [address] [place], [address] EST GFR - AA 97 mL/min Normal >60 [facility] Comment on above: Result Comment: Afri can [place] GFR Calc Performed By: #### L 100.0100, L500.4050, L501.9520, L501.2300 #### [facility] [address] [place], [address] GAP 7 Normal 5-15 [facility] Comment on above: Performed By: #### L 100.0100, L500.4050, L501.9520, L501.2300 #### [facility] [address] [place], [address] GFR/1.73 sq M.predicted among non-blacks MDRD (S/P/Bld) [Vol rate/Area] 80 mL/min/{1.73_m2} Normal >60 [facility] Comment on above: Result Comment: Non- GFR Calc Performed By: #### L 100.0100, L500.4050, L501.9520, L501.2300 #### [facility] [address] [place], [address] Glucose [Mass/Vol] 115 mg/dL High 74-106 [facility] Comment on above: Result Comment: Fast ing Glucose result from 100 to 125 mg/dL suggests IMPAIRED HOMEOSTASIS per A.D.A. criteria. Performed By: #### L 100.0100, L500.4050, L501.9520, L501.2300 #### [facility] [address] [place], [address] Potassium [Moles/Vol] 4.0 mmol/L Normal 3.5-5.1 [facility] Comment on above: Performed By: #### L 100.0100, L500.4050, L501.9520, L501.2300 #### [facility] [address] [place], [address] Sodium [Moles/Vol] 138 mmol/L Normal 136-145 [facility] Comment on above: Performed By: #### L 100.0100, L500.4050, L501.9520, L501.2300 #### [facility] [address] [place], [address] Urea nitrogen [Mass/Vol] 10 mg/dL Normal 7-18 [facility] Comment on above: Performed By: #### L 100.0100, L500.4050, L501.9520, L501.2300 #### [facility] [address] [place], [address] Basophil percentageOrdered B y: Librado Vasquez on 03-20-2024 Basophils/100 WBC (Bld) 0.6 % 0-1 [facility] Blood urea nitrogen (BUN)/cr eatinine ratioOrdered By: Librado Vasquez on 03-20-2024 Urea nitrogen/Creatinine [Mass ratio] 13.4 mg/mg 10-20 [facility] CBC W/Diff, Automatedon 03-04 Absolute Lymph 0.92 X10 3/uL Normal 0.83-4.51 [facility] Comment on above: Performed By: #### L 100.0100, L500.4050, L501.9520, L501.2300 #### [facility] [address] [place], [address] Absolute Neut 5.1 X10 3/uL Normal 2.0-7.7 [facility] Comment on above: Performed By: #### L 100.0100, L500.4050, L501.9520, L501.2300 #### [facility] [address] [place], [address] Basophils/100 WBC (Bld) 0.6 % Normal 0-1 [facility] Comment on above: Performed By: #### L 100.0100, L500.4050, L501.9520, L501.2300 #### [facility] [address] [place], [address] Eosinophils/100 WBC (Bld) 0.1 % Normal 0-5 [facility] Comment on above: Performed By: #### L 100.0100, L500.4050, L501.9520, L501.2300 #### [facility] [address] [place], [address] Erythrocyte distribution width (RBC) [Ratio] 13.3 % Normal 11.6-14.6 [facility] Comment on above: Performed By: #### L 100.0100, L500.4050, L501.9520, L501.2300 #### [facility] [address] [place], [address] Hematocrit (Bld) [Volume fraction] 44.4 % Normal 37-47 [facility] Comment on above: Performed By: #### L 100.0100, L500.4050, L501.9520, L501.2300 #### [facility] [address] [place], [address] Hemoglobin (Bld) [Mass/Vol] 14.4 g/dL Normal 12.0-15.0 [facility] Comment on above: Performed By: #### L 100.0100, L500.4050, L501.9520, L501.2300 #### [facility] [address] [place], [address] IG% 0.300 Normal 0.0-0.9 [facility] Comment on above: Result Comment: IG% - Immature Granulocytes (promyelocytes, myelocytes and metamyelocytes) > 1% indicates that a LEFT SHIFT is Present. Performed By: #### L 100.0100, L500.4050, L501.9520, L501.2300 #### [facility] [address] [place], [address] Lymphocytes/100 WBC (Bld) 13.8 % Low 19-41 [facility] Comment on above: Performed By: #### L 100.0100, L500.4050, L501.9520, L501.2300 #### [facility] [address] [place], [address] MCH (RBC) [Entitic mass] 28.5 pg Normal 27.0-32.0 [facility] Comment on above: Performed By: #### L 100.0100, L500.4050, L501.9520, L501.2300 #### [facility] [address] [place], [address] MCHC (RBC) [Mass/Vol] 32.4 g/dL Normal 32-36 [facility] Comment on above: Performed By: #### L 100.0100, L500.4050, L501.9520, L501.2300 #### [facility] [address] [place], [address] MCV (RBC) [Entitic vol] 87.7 fL Normal 81-99 [facility] Comment on above: Performed By: #### L 100.0100, L500.4050, L501.9520, L501.2300 #### [facility] [address] [place], [address] Monocytes/100 WBC (Bld) 9.1 % Normal 0-10 [facility] Comment on above: Performed By: #### L 100.0100, L500.4050, L501.9520, L501.2300 #### [facility] [address] [place], [address] Neutrophils/100 WBC (Bld) 76.1 % High 47-70 [facility] Comment on above: Performed By: #### L 100.0100, L500.4050, L501.9520, L501.2300 #### [facility] [address] [place], [address] Nucleated RBC (Bld) [#/Vol] 0 10*3/uL Normal 0-5 [facility] Comment on above: Performed By: #### L 100.0100, L500.4050, L501.9520, L501.2300 #### [facility] [address] [place], [id number] Platelet mean volume (Bld) [Entitic vol] 9.9 fL Normal 6.2-12.0 [facility] Comment on above: Performed By: #### L 100.0100, L500.4050, L501.9520, L501.2300 #### [facility] [address] [place], [id number] Platelets (Bld) [#/Vol] 242 10*3/uL Normal 150-450 [facility] Comment on above: Performed By: #### L 100.0100, L500.4050, L501.9520, L501.2300 #### [facility] [address] [place], [address] RBC (Bld) [#/Vol] 5.06 10*6/uL Normal 4.2-5.4 [facility] Comment on above: Performed By: #### L 100.0100, L500.4050, L501.9520, L501.2300 #### [facility] [address] [place], [id number] RDW SD 42.5 fl Normal 35.1-43.9 [facility] Comment on above: Performed By: #### L 100.0100, L500.4050, L501.9520, L501.2300 #### [facility] [address] [place], [id number] WBC (Bld) [#/Vol] 6.7 10*3/uL Normal 4.4-11.0 [facility] Comment on above: Performed By: #### L 100.0100, L500.4050, L501.9520, L501.2300 #### [facility] [address] [place], [address] Carbon dioxide measurementOr dered By: Librado Vasquez on 03-20-2024 CO2 [Moles/Vol] 30.0 mmol/L 21.0-32.0 [facility] Chloride measurementOrdered By: Librado Vasquez on 03-20-2024 Chloride [Moles/Vol] 101 mmol/L 98-107 [facility] Emergency Department Summary on 03-20-2024 Emergency Department Summary [facility] Medical Records Department [address] [place] [address] Emergency Department Summary 03/20/24 MR#: [id number] Acct: [id number] Name: LEONEL ANDRE Rep #: [id number] : 1945 79 From: Librado Vasquez MD [...] denosumab 60 mg/mL subcutaneous 60 mg subcut [id number] #1 mL 10/03/22 Unknown Rx syringe (Prolia) [...] Allergic/Immunologic Alejandro (more content not included)... Normal [facility] Eosinophil percentageOrdered By: Librado Vasquez on 03-20-2024 Eosinophils/100 WBC (Bld) 0.1 % 0-5 [facility] Erythrocyte distribution wid th ratioOrdered By: Librado Vasquez on 03-20-2024 Erythrocyte distribution width (RBC) [Ratio] 13.3 % 11.6-14.6 [facility] Erythrocyte distribution wid th standard deviationOrdered By: Librado Vasquez on 03-20-2024 Erythrocyte distribution width (RBC) [Entitic vol] 42.5 fL 35.1-43.9 [facility] Erythrocyte distribution width (RBC) [Ratio] 42.5 fl 35.1-43.9 [facility] Estimated glomerular filtrat ion rate (GFR) AmericanOrdered By: Librado Vasquez on 03-20-2024 Estimated GFR (MDRD) Amer 97 mL/min >60 [facility] Comment on above: GFR Calc Estimation of creatinine prabhjot aranceOrdered By: Librado Vasquez on 03-20-2024 Estimated Creatinine Clearance Calc 50.05 ml/min [facility] Glomerular filtration rate ( GFR) estimationOrdered By: Librado Vasquez on 03-20-2024 Estimated GFR (MDRD) Non-Af Amer 80 mL/min >60 [facility] Comment on above: Non- GFR Calc GFR/1.73 sq M.predicted among non-blacks MDRD (S/P/Bld) [Vol rate/Area] 80 mL/min/{1.73_m2} >60 [facility] Comment on above: Non- GFR Calc Glucose measurementOrdered B y: Librado Vasquez on 03-20-2024 Glucose [Mass/Vol] 115 mg/dL High 74-106 [facility] Comment on above: Fasting Glucose resu lt from 100 to 125 mg/dL suggests IMPAIRED HOMEOSTASIS per A.D.A. criteria. Hematocrit Auto (Bld) [Volum e fraction]Ordered By: Librado Vasquez on 03-20-2024 Hematocrit (Bld) [Volume fraction] 44.4 % 37-47 [facility] Hemoglobin measurementOrdere d By: Librado Vasquez on 03-20-2024 Hemoglobin (Bld) [Mass/Vol] 14.4 g/dL 12.0-15.0 [facility] Immature granulocytes/100 WB C Auto (Bld)Ordered By: Librado Vasquez on 03-20-2024 Immature granulocytes/100 WBC (Bld) 0.300 % 0.0-0.9 [facility] Comment on above: IG% - Immature Granu locytes (promyelocytes, myelocytes and metamyelocytes) > 1% indicates that a LEFT SHIFT is Present. Lymphocytes Auto (Unsp spec) [#/Vol]Ordered By: Librado Vasquez on 03-20-2024 Lymphocytes (Bld) [#/Vol] 0.92 10*3/uL 0.83-4.51 [facility] Lymphocytes/100 WBC Auto (Un sp spec)Ordered By: Librado Vasquez on 03-20-2024 Lymphocytes/100 WBC (Bld) 13.8 % Low 19-41 [facility] MCV (mean corpuscular volume ) determinationOrdered By: Librado Vasquez on 03-20-2024 MCV (RBC) [Entitic vol] 87.7 fL 81-99 [facility] Mean corpuscular hemoglobin (MCH) determinationOrdered By: Librado Vasquez on 03-20-2024 MCH (RBC) [Entitic mass] 28.5 pg 27.0-32.0 [facility] Mean corpuscular hemoglobin concentration (MCHC) determinationOrdered By: Librado Vasquez on 03-20-2024 MCHC (RBC) [Mass/Vol] 32.4 g/dL 32-36 [facility] Mean platelet volume determi nationOrdered By: Librado Vasquez on 03-20-2024 Platelet mean volume (Bld) [Entitic vol] 9.9 fL 6.2-12.0 [facility] Monocyte percentageOrdered B y: Librado Vasquez on 03-20-2024 Monocytes/100 WBC (Bld) 9.1 % 0-10 [facility] Neutrophil percentageOrdered By: Librado Vasquez on 03-20-2024 Neutrophils/100 WBC (Bld) 76.1 % High 47-70 [facility] Nucleated red blood cell per centageOrdered By: Librado Vasquez on 03-20-2024 Nucleated RBC/100 WBC (Bld) [Ratio] 0 % 0-5 [facility] Platelet countOrdered By: Manav Vasquez on 03-20-2024 Platelets (Bld) [#/Vol] 242 10*3/uL 150-450 [facility] Potassium measurementOrdered By: Librado Vasquez on 03-20-2024 Potassium [Moles/Vol] 4.0 mmol/L 3.5-5.1 [facility] RBC Auto (Bld) [#/Vol]Ordere d By: Librado Vasquez on 03-20-2024 RBC (Bld) [#/Vol] 5.06 10*6/uL 4.2-5.4 [facility] Serum anion gap measurementO rdered By: Librado Vasquez on 03-20-2024 Anion gap [Moles/Vol] 7 mmol/L 5-15 [facility] Serum or plasma calcium erendira urement (mass/volume)Ordered By: Librado Vasquez on 03-20-2024 Calcium [Mass/Vol] 10.3 mg/dL High 8.5-10.1 [facility] Serum or plasma creatinine m easurement (mass/volume)Ordered By: Librado Vasquez on 03-20-2024 Creatinine [Mass/Vol] 0.75 mg/dL 0.55-1.02 [facility] Comment on above: The validity of the calculated GFR & GFRAA in patients over 70 years has not been determined. Clinical correlation is essential. Serum or plasma urea nitroge n measurement (mass/volume)Ordered By: Librado Vasquez on 03-20-2024 Urea nitrogen [Mass/Vol] 10 mg/dL 7-18 [facility] Sodium levelOrdered By: Librado Vasquez on 03-20-2024 Sodium [Moles/Vol] 138 mmol/L 136-145 [facility] White blood cell (WBC) count Ordered By: Librado Vasquez on 03-20-2024 WBC (Bld) [#/Vol] 6.7 10*3/uL 4.4-11.0 [facility] CNOVon 03-18-2024 CNOV Office Visit (INTMWS ) LEONEL ANDRE ([id number]) 1945 F Date Time Provider Department 03/18/24 1:40 PM FEMI BAEZA INTMWS During your visit today, we recorded the following information about you: Temperature Pulse Blood pressure Weight 98.2 degrees 65/minute 131/70 62.5 kg Height 1.676 m Femi Baeza MD 03/18/2024 2:32 PM Signed Leonelshivani Andre is a 79 year old female [...] Baeza MD as PCP - General Xuan Brandon, [employer] as Interactive Producer (Internal Medicine) Outside specialists seen: Zach Negro [...] (98.2 ?F) (Temporal) Ht 167.6 cm (5' 6) Wt 62.5 kg (137 lb 12.6 oz) BMI 22.24 kg/m? Vision Screening: Follows with optometry/ophthalmology Right: 20/25 Left: 20/ 40 Both: 20/25 Assessment/Plan Medicare annual wellness visit, subsequent (Z00.00) - Counseled on healthy diet and regular exercise - Fall avoidance information provided - Personalized prevention plan provided - Vaccines reviewed. Femi Baeza MD 03/18/2024 2:32 PM Signed This note was created using [employer]. Subjective Leonel Andre is a 79 year [...] day. Cholecalciferol, (more content not included)... Normal [facility] Abdomen Single Viewon 2024 Abdomen Single View [facility] Imaging Services [address] [place] [address] [id number] Abdomen Single View MR#: [id number] Acct: [id number] Name: LEONEL ANDRE Rep #: [id number] : 1945 F 79 From: William neumann DO PCP: Dr. Femi Baeza MD Status: PRE ER Study: Abdomen Single View Date of Exam: 03/16/24 Exam# [id number] Ordering Dr: Librado Vasquez MD :[id number] EXAM: XR ABDOMEN, 1 VIEW CLINICAL INDICATION: constipation TECHNIQUE: Frontal supine view of the abdomen/pelvis. This report was created using [employer] report generation technology. COMPARISON: CT abdomen and [...] colonic stool and gas. Electronically Signed: William Wellington, DO at 22:21 EST , CC: Dr. Librado Vasquez MD; Dr. Femi Baeza MD Chief School Finance Officer: Signed Normal [facility] Absolute neutrophil countOrd ered By: Librado Vasquez on 03-16-2024 Neutrophils (Bld) [#/Vol] 6.8 10*3/uL 2.0-7.7 [facility] Basic Metabolic Profile (BMP )on 03-16-2024 BUN/CRE 19.1 RATIO Normal 10-20 [facility] Comment on above: Performed By: #### L 100.0100, L500.4050, L501.9520, L501.2300 #### [facility] [address] [place], [address] CA,Total 10.1 mg/dL Normal 8.5-10.1 [facility] Comment on above: Performed By: #### L 100.0100, L500.4050, L501.9520, L501.2300 #### [facility] [address] [place], [address] Chloride [Moles/Vol] 102 mmol/L Normal 98-107 [facility] Comment on above: Performed By: #### L 100.0100, L500.4050, L501.9520, L501.2300 #### [facility] [address] [place], [address] CO2 [Moles/Vol] 27.0 mmol/L Normal 21.0-32.0 [facility] Comment on above: Performed By: #### L 100.0100, L500.4050, L501.9520, L501.2300 #### [facility] [address] [place], [address] Creatinine [Mass/Vol] 0.68 mg/dL Normal 0.55-1.02 [facility] Comment on above: Result Comment: The validity of the calculated GFR GFRAA in patients over 70 years has not been determined. Clinical correlation is essential. Performed By: #### L 100.0100, L500.4050, L501.9520, L501.2300 #### [facility] [address] [place], [address] ECRCL 50.05 ml/min Normal [facility] Comment on above: Performed By: #### L 100.0100, L500.4050, L501.9520, L501.2300 #### [facility] [address] [place], [address] EST GFR - AA 108 mL/min Normal >60 [facility] Comment on above: Result Comment: Afri can Bermudian GFR Calc Performed By: #### L 100.0100, L500.4050, L501.9520, L501.2300 #### [facility] [address] [place], [address] GAP 5 Normal 5-15 [facility] Comment on above: Performed By: #### L 100.0100, L500.4050, L501.9520, L501.2300 #### [facility] [address] [place], [address] GFR/1.73 sq M.predicted among non-blacks MDRD (S/P/Bld) [Vol rate/Area] 89 mL/min/{1.73_m2} Normal >60 [facility] Comment on above: Result Comment: Non- GFR Calc Performed By: #### L 100.0100, L500.4050, L501.9520, L501.2300 #### [facility] [address] [place], [address] Glucose [Mass/Vol] 115 mg/dL High 74-106 [facility] Comment on above: Result Comment: Fast ing Glucose result from 100 to 125 mg/dL suggests IMPAIRED HOMEOSTASIS per A.D.A. criteria. Performed By: #### L 100.0100, L500.4050, L501.9520, L501.2300 #### [facility] [address] [place], [address] Potassium [Moles/Vol] 4.2 mmol/L Normal 3.5-5.1 [facility] Comment on above: Performed By: #### L 100.0100, L500.4050, L501.9520, L501.2300 #### [facility] [address] [place], [address] Sodium [Moles/Vol] 134 mmol/L Low 136-145 [facility] Comment on above: Performed By: #### L 100.0100, L500.4050, L501.9520, L501.2300 #### [facility] [address] [place], [address] Urea nitrogen [Mass/Vol] 13 mg/dL Normal 7-18 [facility] Comment on above: Performed By: #### L 100.0100, L500.4050, L501.9520, L501.2300 #### [facility] [address] [place], [address] Basophil percentageOrdered B y: Librado Vasquez on 03-16-2024 Basophils/100 WBC (Bld) 0.5 % 0- [facility] Blood urea nitrogen (BUN)/cr eatinine ratioOrdered By: Librado Vasquez on 03-16-2024 Urea nitrogen/Creatinine [Mass ratio] 19.1 mg/mg 10- [facility] CBC W/Diff, Automatedon 01-1 3-2025 Absolute Lymph 0.99 X10 3/uL Normal 0.83-4.51 [facility] Comment on above: Performed By: #### L 100.0100, L500.4050, L501.9520, L501.2300 #### [facility] [address] [place], [address] Absolute Neut 6.8 X10 3/uL Normal 2.0-7.7 [facility] Comment on above: Performed By: #### L 100.0100, L500.4050, L501.9520, L501.2300 #### [facility] [address] [place], [address] Basophils/100 WBC (Bld) 0.5 % Normal 0-1 [facility] Comment on above: Performed By: #### L 100.0100, L500.4050, L501.9520, L501.2300 #### [facility] [address] [place], [address] Eosinophils/100 WBC (Bld) 0.1 % Normal 0-5 [facility] Comment on above: Performed By: #### L 100.0100, L500.4050, L501.9520, L501.2300 #### [facility] [address] [place], [address] Erythrocyte distribution width (RBC) [Ratio] 13.3 % Normal 11.6-14.6 [facility] Comment on above: Performed By: #### L 100.0100, L500.4050, L501.9520, L501.2300 #### [facility] [address] [place], [address] Hematocrit (Bld) [Volume fraction] 40.1 % Normal 37-47 [facility] Comment on above: Performed By: #### L 100.0100, L500.4050, L501.9520, L501.2300 #### [facility] [address] [place], [address] Hemoglobin (Bld) [Mass/Vol] 13.3 g/dL Normal 12.0-15.0 [facility] Comment on above: Performed By: #### L 100.0100, L500.4050, L501.9520, L501.2300 #### [facility] [address] [place], [address] IG% 0.400 Normal 0.0-0.9 [facility] Comment on above: Result Comment: IG% - Immature Granulocytes (promyelocytes, myelocytes and metamyelocytes) > 1% indicates that a LEFT SHIFT is Present. Performed By: #### L 100.0100, L500.4050, L501.9520, L501.2300 #### [facility] [address] [place], [address] Lymphocytes/100 WBC (Bld) 11.6 % Low 19-41 [facility] Comment on above: Performed By: #### L 100.0100, L500.4050, L501.9520, L501.2300 #### [facility] [address] [place], [address] MCH (RBC) [Entitic mass] 28.9 pg Normal 27.0-32.0 [facility] Comment on above: Performed By: #### L 100.0100, L500.4050, L501.9520, L501.2300 #### [facility] [address] [place], [address] MCHC (RBC) [Mass/Vol] 33.2 g/dL Normal 32-36 [facility] Comment on above: Performed By: #### L 100.0100, L500.4050, L501.9520, L501.2300 #### [facility] [address] [place], [address] MCV (RBC) [Entitic vol] 87.2 fL Normal 81-99 [facility] Comment on above: Performed By: #### L 100.0100, L500.4050, L501.9520, L501.2300 #### [facility] [address] [place], [id number] Monocytes/100 WBC (Bld) 8.2 % Normal 0-10 [facility] Comment on above: Performed By: #### L 100.0100, L500.4050, L501.9520, L501.2300 #### [facility] [address] [place], [address] Neutrophils/100 WBC (Bld) 79.2 % High 47-70 [facility] Comment on above: Performed By: #### L 100.0100, L500.4050, L501.9520, L501.2300 #### [facility] [address] [place], [id number] Nucleated RBC (Bld) [#/Vol] 0 10*3/uL Normal 0-5 [facility] Comment on above: Performed By: #### L 100.0100, L500.4050, L501.9520, L501.2300 #### [facility] [address] [place], [id number] Platelet mean volume (Bld) [Entitic vol] 10.0 fL Normal 6.2-12.0 [facility] Comment on above: Performed By: #### L 100.0100, L500.4050, L501.9520, L501.2300 #### [facility] [address] [place], [id number] Platelets (Bld) [#/Vol] 211 10*3/uL Normal 150-450 [facility] Comment on above: Performed By: #### L 100.0100, L500.4050, L501.9520, L501.2300 #### [facility] [address] [place], [id number] RBC (Bld) [#/Vol] 4.60 10*6/uL Normal 4.2-5.4 [facility] Comment on above: Performed By: #### L 100.0100, L500.4050, L501.9520, L501.2300 #### [facility] [address] [place], [address] RDW SD 41.6 fl Normal 35.1-43.9 [facility] Comment on above: Performed By: #### L 100.0100, L500.4050, L501.9520, L501.2300 #### [facility] [address] [place], [address] WBC (Bld) [#/Vol] 8.5 10*3/uL Normal 4.4-11.0 [facility] Comment on above: Performed By: #### L 100.0100, L500.4050, L501.9520, L501.2300 #### [facility] [address] [place], [address] Carbon dioxide measurementOr dered By: Librado Vasquez on 03-16-2024 CO2 [Moles/Vol] 27.0 mmol/L 21.0-32.0 [facility] Chloride measurementOrdered By: Librado Vasquez on 03-16-2024 Chloride [Moles/Vol] 102 mmol/L 98-107 [facility] Emergency Department Summary on 03-16-2024 Emergency Department Summary [facility] Medical Records Department [address] [place] [address] Emergency Department Summary 03/16/24 MR#: [id number] Acct: [id number] Name: LEONEL ANDRE Rep #: [id number] : 1945 79 From: Librado Vasquez MD [...] similar symptoms: Yes Recent Illness/Hospitalization: No PFSH [facility] Medical History Gait disturbance Diverticular disease Primary [...] denosumab 60 mg/mL subcutaneous 60 mg subcut [id number] #1 mL 10/03/22 Unknown Rx syringe (Prolia) [...] female n (more content not included)... Normal [facility] Eosinophil percentageOrdered By: Librado Vasquez on 03-16-2024 Eosinophils/100 WBC (Bld) 0.1 % 0-5 [facility] Erythrocyte distribution wid th ratioOrdered By: Librado Vasquez on 03-16-2024 Erythrocyte distribution width (RBC) [Ratio] 13.3 % 11.6-14.6 [facility] Erythrocyte distribution wid th standard deviationOrdered By: Librado Vasquez on 03-16-2024 Erythrocyte distribution width (RBC) [Entitic vol] 41.6 fL 35.1-43.9 [facility] Estimated glomerular filtrat ion rate (GFR) AmericanOrdered By: Librado Vasquez on 03-16-2024 Estimated GFR (MDRD) Amer 108 mL/min >60 [facility] Comment on above: GFR Calc Estimation of creatinine prabhjot aranceOrdered By: Librado Vasquez on 03-16-2024 Estimated Creatinine Clearance Calc 50.05 ml/min [facility] Glomerular filtration rate ( GFR) estimationOrdered By: Librado Vasquez on 03-16-2024 Estimated GFR (MDRD) Non-Af Amer 89 mL/min >60 [facility] Comment on above: Non- GFR Calc Glucose measurementOrdered B y: Librado Vasquez on 03-16-2024 Glucose [Mass/Vol] 115 mg/dL High 74-106 [facility] Comment on above: Fasting Glucose resu lt from 100 to 125 mg/dL suggests IMPAIRED HOMEOSTASIS per A.D.A. criteria. Hematocrit Auto (Bld) [Volum e fraction]Ordered By: Librado Vasquez on 03-16-2024 Hematocrit (Bld) [Volume fraction] 40.1 % 37-47 [facility] Hemoglobin measurementOrdere d By: Librado Vasquez on 03-16-2024 Hemoglobin (Bld) [Mass/Vol] 13.3 g/dL 12.0-15.0 [facility] Immature granulocytes/100 WB C Auto (Bld)Ordered By: Librado Vasquez on 03-16-2024 Immature granulocytes/100 WBC (Bld) 0.400 % 0.0-0.9 [facility] Comment on above: IG% - Immature Granu locytes (promyelocytes, myelocytes and metamyelocytes) > 1% indicates that a LEFT SHIFT is Present. Lymphocytes Auto (Unsp spec) [#/Vol]Ordered By: Librado Vasquez on 03-16-2024 Lymphocytes (Bld) [#/Vol] 0.99 10*3/uL 0.83-4.51 [facility] Lymphocytes/100 WBC Auto (Un sp spec)Ordered By: Librado Vasquez on 03-16-2024 Lymphocytes/100 WBC (Bld) 11.6 % Low 19-41 [facility] MCV (mean corpuscular volume ) determinationOrdered By: Librado Vasquez on 03-16-2024 MCV (RBC) [Entitic vol] 87.2 fL 81-99 [facility] Mean corpuscular hemoglobin (MCH) determinationOrdered By: Librado Vasquez on 03-16-2024 MCH (RBC) [Entitic mass] 28.9 pg 27.0-32.0 [facility] Mean corpuscular hemoglobin concentration (MCHC) determinationOrdered By: Librado Vasquez on 03-16-2024 MCHC (RBC) [Mass/Vol] 33.2 g/dL 32-36 [facility] Mean platelet volume determi nationOrdered By: Librado Vasquez on 03-16-2024 Platelet mean volume (Bld) [Entitic vol] 10.0 fL 6.2-12.0 [facility] Monocyte percentageOrdered B y: Librado Vasquez on 03-16-2024 Monocytes/100 WBC (Bld) 8.2 % 0-10 [facility] Neutrophil percentageOrdered By: Librado Vasquez on 03-16-2024 Neutrophils/100 WBC (Bld) 79.2 % High 47-70 [facility] Nucleated red blood cell per centageOrdered By: Librado Vasquez on 03-16-2024 Nucleated RBC/100 WBC (Bld) [Ratio] 0 % 0-5 [facility] Platelet countOrdered By: Manav Vasquez on 03-16-2024 Platelets (Bld) [#/Vol] 211 10*3/uL 150-450 [facility] Potassium measurementOrdered By: Librado Vasquez on 03-16-2024 Potassium [Moles/Vol] 4.2 mmol/L 3.5-5.1 [facility] RBC Auto (Bld) [#/Vol]Ordere d By: Librado Vasquez on 03-16-2024 RBC (Bld) [#/Vol] 4.60 10*6/uL 4.2-5.4 [facility] Serum anion gap measurementO rdered By: Librado Vasquez on 03-16-2024 Anion gap [Moles/Vol] 5 mmol/L 07-16 [facility] Serum or plasma calcium erendira urement (mass/volume)Ordered By: Librado Vasquez on 03-16-2024 Calcium [Mass/Vol] 10.1 mg/dL 8.5-10.1 [facility] Serum or plasma creatinine m easurement (mass/volume)Ordered By: Librado Vasquez on 03-16-2024 Creatinine [Mass/Vol] 0.68 mg/dL 0.55-1.02 [facility] Comment on above: The validity of the calculated GFR & GFRAA in patients over 70 years has not been determined. Clinical correlation is essential. Serum or plasma urea nitroge n measurement (mass/volume)Ordered By: Librado Vasquez on 03-16-2024 Urea nitrogen [Mass/Vol] 13 mg/dL 09-18 [facility] Sodium levelOrdered By: Librado Vasquez on 03-16-2024 Sodium [Moles/Vol] 134 mmol/L Low 136-145 [facility] White blood cell (WBC) count Ordered By: Librado Vasquez on 03-16-2024 WBC (Bld) [#/Vol] 8.5 10*3/uL 4.4-11.0 [facility] CBC panel Auto (Bld)on 03-02 Erythrocyte distribution width (RBC) [Ratio] 13.0 % Normal 11.5-15.0 [facility] Comment on above: Order Comment: Speci men Type: BLOOD SPECIMENOrdering Facility: [facility] Address: [address] [place] [address] Performed By: #### 6 30-4 #### [facility] CLIA [id number] [address] [place] [address] [place] Hematocrit (Bld) [Volume fraction] 42.1 % Normal 36.0-46.0 [facility] Comment on above: Order Comment: Speci men Type: BLOOD SPECIMENOrdering Facility: [facility] Address: [address] [place] [address] Performed By: #### 6 30-4 #### [facility] CLIA [id number] [address] [place] [address] [place] Hemoglobin (Bld) [Mass/Vol] 13.2 g/dL Normal 11.5-15.5 [facility] Comment on above: Order Comment: Speci men Type: BLOOD SPECIMENOrdering Facility: [facility] Address: [address] [place] [address] Performed By: #### 6 30-4 #### [facility] CLIA [id number] [address] [place] [address] [place] MCH (RBC) [Entitic mass] 28.3 pg Normal 26.0-34.0 [facility] Comment on above: Order Comment: Speci men Type: BLOOD SPECIMENOrdering Facility: [facility] Address: [address] [place] [address] Performed By: #### 6 30-4 #### [facility] CLIA [id number] [address] [place] [address] [place] MCHC (RBC) [Mass/Vol] 31.4 g/dL Normal 30.5-36.0 [facility] Comment on above: Order Comment: Speci men Type: BLOOD SPECIMENOrdering Facility: [facility] Address: [address] [place] [address] Performed By: #### 6 30-4 #### [facility] CLIA [id number] [address] [place] [address] [place] MCV (RBC) [Entitic vol] 90.3 fL Normal 80.0-100.0 [facility] Comment on above: Order Comment: Speci men Type: BLOOD SPECIMENOrdering Facility: [facility] Address: [address] [place] [address] Performed By: #### 6 30-4 #### [facility] CLIA [id number] [address] [place] [address] [place] Nucleated RBC (Bld) [#/Vol] 10*3/uL Normal <0.01 [facility] Comment on above: Order Comment: Speci men Type: BLOOD SPECIMENOrdering Facility: [facility] Address: [address] [place] [address] Performed By: #### 6 30-4 #### [facility] CLIA [id number] [address] [place] [address] [place] Platelet mean volume (Bld) [Entitic vol] 10.6 fL Normal 9.0-12.7 [facility] Comment on above: Order Comment: Speci men Type: BLOOD SPECIMENOrdering Facility: [facility] Address: [address] [place] [address] Performed By: #### 6 30-4 #### [facility] CLIA [id number] [address] [place] [address] [place] Platelets (Bld) [#/Vol] 281 10*3/uL Normal 150-400 [facility] Comment on above: Order Comment: Speci men Type: BLOOD SPECIMENOrdering Facility: [facility] Address: [address] [place] [address] Performed By: #### 6 30-4 #### [facility] CLIA [id number] [address] [place] [address] [place] RBC (Bld) [#/Vol] 4.66 10*6/uL Normal 3.90-5.20 [facility] Comment on above: Order Comment: Speci men Type: BLOOD SPECIMENOrdering Facility: [facility] Address: [address] [place] [address] Performed By: #### 6 30-4 #### [facility] CLIA [id number] [address] [place] [address] [place] WBC (Bld) [#/Vol] 8.09 10*3/uL Normal 3.70-11.00 [facility] Comment on above: Order Comment: Speci men Type: BLOOD SPECIMENOrdering Facility: [facility] Address: [address] [place] [address] Performed By: #### 6 30-4 #### [facility] CLIA [id number] [address] [place], [place] [address] [facility] CNOVon 03-02-2024 CNOV Office Visit (INTMWS ) LEONEL ANDRE ([id number]) 1945 F Date Time Provider Department 03/02/24 4:20 PM FEMI BAEZA INTMWS During your visit today, we recorded the following information about you: Temperature Pulse Respiration Blood pressure 98.6 degrees 76/minute 16/minute 142/70 Weight 61.8 kg Femi Baeza MD 03/02/2024 4:58 PM Signed This note was created using [employer]. Subjective Patient presents with: ER F/U Leonel [...] GASTROENTEROLOGY. Patient unable to travel. Refer to [facility]. 2. Constipation, unspecified constipation type - [...] shakey LISINOPRIL 05/29/2010 7 - Swelling Comments: Swell (more content not included)... Normal [facility] Abdomen/Pelvis W IV Cont ONL Yon 02-21-2024 Abdomen/Pelvis W IV Cont ONLY [facility] Imaging Services [address] [place] [address] Abdomen/Pelvis W IV Cont ONLY MR#: [id number] Acct: [id number] Name: LEONEL ANDRE Rep #: [id number] : 1945 F 79 From: Roby Doyle PCP: Dr. Femi Baeza MD Status: REG ER Study: Abdomen/Pelvis W IV Cont ONLY Date of Exam: Exam# [id number] Ordering Dr: Juan Shaffer DO :[id number] STUDY: CT ABDOMEN AND PELVIS WITH CONTRAST [...] Juan Shaffer DO; Dr. Femi Baeza MD Chief School Finance Officer: Signed Normal [facility] Absolute neutrophil countOrd ered By: Reinier Aviles on 02-21-2024 Neutrophils (Bld) [#/Vol] 9.0 10*3/uL High 2.0-7.7 [facility] Albumin to globulin ratioOrd ered By: Reinierpoornima Aviles on 02-21-2024 Albumin/Globulin [Mass ratio] 1.2 {ratio} 0.9-2.4 [facility] Basophil percentageOrdered B y: Reinier Aviles on 02-21-2024 Basophils/100 WBC (Bld) 0.4 % 0-1 [facility] Bilirubin, totalOrdered By: Reinier Aviles on 02-21-2024 Bilirubin [Mass/Vol] 1.00 mg/dL 0.20-1.00 [facility] Comment on above: For patients on eltr ombopag therapy, use of Dimension [place] TBIL is not recommended. Blood urea nitrogen (BUN)/cr eatinine ratioOrdered By: Reinier Aviles on 02-21-2024 Urea nitrogen/Creatinine [Mass ratio] 32.1 mg/mg High 12-21 [facility] CBC W/Diff, Automatedon 02-02 Anisocytosis Ql (Bld) 1+ Normal [facility] Comment on above: Performed By: #### L 100.0100 #### [facility] [address] [place], [address] PLT EST ADEQUATE Normal ADEQ [facility] Comment on above: Performed By: #### L 100.0100 #### [facility] [address] [place], [address] SMEAR COMMENT SCANNED Normal [facility] Comment on above: Performed By: #### L 100.0100 #### [facility] [address] [place], [address] Carbon dioxide measurementOr dered By: Reinier Aviles on 02-21-2024 CO2 [Moles/Vol] 24.0 mmol/L 21.0-32.0 [facility] Chloride measurementOrdered By: Reinier Aviles on 02-21-2024 Chloride [Moles/Vol] 101 mmol/L 98-107 [facility] Comprehensive Metabolic Prof ilon 02-21-2024 Albumin [Mass/Vol] 3.8 g/dL Normal 3.2-5.0 [facility] Comment on above: Performed By: #### L 100.0100, L500.4050, L501.9520, L501.2300 #### [facility] [address] [place], [address] Albumin/Globulin [Mass ratio] 1.2 {ratio} Normal 0.9-2.4 [facility] Comment on above: Performed By: #### L 100.0100, L500.4050, L501.9520, L501.2300 #### [facility] [address] [place], [address] ALK P 41 U/L Low 45-117 [facility] Comment on above: Performed By: #### L 100.0100, L500.4050, L501.9520, L501.2300 #### [facility] [address] [place], [address] ALT [Catalytic activity/Vol] 24 U/L Normal 13-56 [facility] Comment on above: Performed By: #### L 100.0100, L500.4050, L501.9520, L501.2300 #### [facility] [address] [place], [address] AST [Catalytic activity/Vol] 15 U/L Normal 15-37 [facility] Comment on above: Performed By: #### L 100.0100, L500.4050, L501.9520, L501.2300 #### [facility] [address] [place], [address] Bilirubin [Mass/Vol] 1.00 mg/dL Normal 0.20-1.00 [facility] Comment on above: Result Comment: For patients on eltrombopag therapy, use of Dimension [place] TBIL is not recommended. Performed By: #### L 100.0100, L500.4050, L501.9520, L501.2300 #### [facility] [address] [place], [address] BUN/CRE 32.1 RATIO High 10-20 [facility] Comment on above: Performed By: #### L 100.0100, L500.4050, L501.9520, L501.2300 #### [facility] [address] [place], [address] CA,Total 8.9 mg/dL Normal 8.5-10.1 [facility] Comment on above: Performed By: #### L 100.0100, L500.4050, L501.9520, L501.2300 #### [facility] [address] [place], [address] Chloride [Moles/Vol] 101 mmol/L Normal 98-107 [facility] Comment on above: Performed By: #### L 100.0100, L500.4050, L501.9520, L501.2300 #### [facility] [address] [place], [address] CO2 [Moles/Vol] 24.0 mmol/L Normal 21.0-32.0 [facility] Comment on above: Performed By: #### L 100.0100, L500.4050, L501.9520, L501.2300 #### [facility] [address] [place], [address] Creatinine [Mass/Vol] 0.66 mg/dL Normal 0.55-1.02 [facility] Comment on above: Result Comment: The validity of the calculated GFR GFRAA in patients over 70 years has not been determined. Clinical correlation is essential. Performed By: #### L 100.0100, L500.4050, L501.9520, L501.2300 #### [facility] [address] [place], [address] ECRCL 50.05 ml/min Normal [facility] Comment on above: Performed By: #### L 100.0100, L500.4050, L501.9520, L501.2300 #### [facility] [address] [place], [address] EST GFR - AA 112 mL/min Normal >60 [facility] Comment on above: Result Comment: Afri can [place] GFR Calc Performed By: #### L 100.0100, L500.4050, L501.9520, L501.2300 #### [facility] [address] [place], [address] GAP 8 Normal 5-15 [facility] Comment on above: Performed By: #### L 100.0100, L500.4050, L501.9520, L501.2300 #### [facility] [address] [place], [address] GFR/1.73 sq M.predicted among non-blacks MDRD (S/P/Bld) [Vol rate/Area] 93 mL/min/{1.73_m2} Normal >60 [facility] Comment on above: Result Comment: Non- GFR Calc Performed By: #### L 100.0100, L500.4050, L501.9520, L501.2300 #### [facility] [address] [place], [address] Globulin (S) [Mass/Vol] 3.3 g/dL Normal 2.2-4.2 [facility] Comment on above: Performed By: #### L 100.0100, L500.4050, L501.9520, L501.2300 #### [facility] [address] [place], [address] Glucose [Mass/Vol] 140 mg/dL High 74-106 [facility] Comment on above: Result Comment: Fast ing Glucose result greater than or equal to 126 mg/dL suggests DIABETES MELLITUS per A.D.A. criteria. Performed By: #### L 100.0100, L500.4050, L501.9520, L501.2300 #### [facility] [address] [place], [address] Potassium [Moles/Vol] 3.3 mmol/L Low 3.5-5.1 [facility] Comment on above: Performed By: #### L 100.0100, L500.4050, L501.9520, L501.2300 #### [facility] [address] [place], [address] Sodium [Moles/Vol] 133 mmol/L Low 136-145 [facility] Comment on above: Performed By: #### L 100.0100, L500.4050, L501.9520, L501.2300 #### [facility] [address] [place], [address] T PROT 7.1 g/dL Normal 6.4-8.2 [facility] Comment on above: Performed By: #### L 100.0100, L500.4050, L501.9520, L501.2300 #### [facility] [address] [place], [address] Urea nitrogen [Mass/Vol] 21 mg/dL High 7-18 [facility] Comment on above: Performed By: #### L 100.0100, L500.4050, L501.9520, L501.2300 #### [facility] [address] [place], [address] Emergency Department Summary on 02-21-2024 Emergency Department Summary [facility] Medical Records Department [address] [place] [address] Emergency Department Summary 02/21/24 MR#: [id number] Acct: [id number] Name: LEONEL ANDRE Rep #: [id number] : 1945 79 From: Juan Shaffer DO [...] movement was around 9:45 AM this morning. [facility] Medical History Gait disturbance Diverticular disease Primary [...] denosumab 60 mg/mL subcutaneous 60 mg subcut [id number] #1 mL 10/03/22 Unknown Rx syringe (Prolia) [...] weakness, t (more content not included)... Normal [facility] Emergency Department Summary [facility] Medical Records Department [address] [facility] [place] [address] Emergency Department Summary 02/21/24 MR#: [id number] Acct: [id number] Name: LEONEL ANDRE Rep #: [id number] : 1945 79 From: Reinier Aviles MD [...] diarrhea recently, no other known sick contacts. [facility] Medical History Gait disturbance Diverticular disease Primary [...] denosumab 60 mg/mL subcutaneous 60 mg subcut [id number] #1 mL 10/03/22 Unknown Rx syringe (Prolia) [...] Vital Sig (more content not included)... Normal [facility] Eosinophil percentageOrdered By: Reinier Aviles on 02-21-2024 Eosinophils/100 WBC (Bld) 0.4 % 0-5 [facility] Erythrocyte distribution wid th ratioOrdered By: Reinier Aviles on 02-21-2024 Erythrocyte distribution width (RBC) [Ratio] 13.2 % 11.6-14.6 [facility] Erythrocyte distribution wid th standard deviationOrdered By: Reinier Aviles on 02-21-2024 Erythrocyte distribution width (RBC) [Entitic vol] 41.7 fL 35.1-43.9 [facility] Estimated glomerular filtrat ion rate (GFR) AmericanOrdered By: Reinier Aviles on 02-21-2024 Estimated GFR (MDRD) Amer 112 mL/min >60 [facility] Comment on above: GFR Calc Estimation of creatinine prabhjot aranceOrdered By: Reinier Aviles on 02-21-2024 Estimated Creatinine Clearance Calc 50.05 ml/min [facility] Glomerular filtration rate ( GFR) estimationOrdered By: Reinier Aviles on 02-21-2024 Estimated GFR (MDRD) Non-Af Amer 93 mL/min >60 [facility] Comment on above: Non- GFR Calc Glucose measurementOrdered B y: Reinier Stefan on 02-21-2024 Glucose [Mass/Vol] 140 mg/dL High 74-106 [facility] Comment on above: Fasting Glucose resu lt greater than or equal to 126 mg/dL suggests DIABETES MELLITUS per A.D.A. criteria. Hematocrit Auto (Bld) [Volum e fraction]Ordered By: Reinier Aviles on 02-21-2024 Hematocrit (Bld) [Volume fraction] 42.9 % 37-47 [facility] Hemoglobin measurementOrdere d By: Reinier Aviles on 02-21-2024 Hemoglobin (Bld) [Mass/Vol] 14.2 g/dL 12.0-15.0 [facility] Immature granulocytes/100 WB C Auto (Bld)Ordered By: Reinier Aviles on 02-21-2024 Immature granulocytes/100 WBC (Bld) 2.900 % High 0.0-0.9 [facility] Comment on above: IG% - Immature Granu locytes (promyelocytes, myelocytes and metamyelocytes) > 1% indicates that a LEFT SHIFT is Present. Laboratory - Chemistry and C hemistry - challengeOrdered By: Reinier Aviles on 02-21-2024 AST [Catalytic activity/Vol] 15 U/L 15-37 [facility] - Hematology and Cell countsOrdered By: Reinier Aviles on 02-21-2024 Anisocytosis Ql (Bld) 1+ [facility] Lipaseon 02-21-2024 Lipase [Catalytic activity/Vol] 15 U/L Normal 13-75 [facility] Comment on above: Result Comment: Soraya ham note: LIPASE revised reference range effective 22. New Lipase methodology. Expected to produce lower values than the previous assay method. NEW Reference Range: 13 - 75 U/L Performed By: #### L 100.0100, L500.4050, L501.9520, L501.2300 #### [facility] [address] [place], [address] Lipase measurementOrdered By : Reinier Aviles on 02-21-2024 Lipase [Catalytic activity/Vol] 15 U/L 13-75 [facility] Comment on above: Please note:LIPASE r evised reference range effective 22. New Lipase methodology. Expected to produce lower values than the previous assay method. NEW Reference Range: 13 - 75 U/L Lower GI hemoglobin IA Ql (S tl)Ordered By: Juan Shaffer on 02-21-2024 Stool Occult Blood (ABRAHAN) Positive Abnormal [facility] Lymphocytes Auto (Unsp spec) [#/Vol]Ordered By: Reinier Aviles on 02-21-2024 Lymphocytes (Bld) [#/Vol] 0.27 10*3/uL Low 0.83-4.51 [facility] Lymphocytes/100 WBC Auto (Un sp spec)Ordered By: Reinier Aviles on 02-21-2024 Lymphocytes/100 WBC (Bld) 2.6 % Low 19-41 [facility] MCV (mean corpuscular volume ) determinationOrdered By: Reinier Aviles on 02-21-2024 MCV (RBC) [Entitic vol] 87.7 fL 81-99 [facility] Manual differential comment Asael (Bld) [Interp]Ordered By: Reinier Aviles on 02-21-2024 Differential Comment SCANNED [facility] Mean corpuscular hemoglobin (MCH) determinationOrdered By: Reinier Aviles on 02-21-2024 MCH (RBC) [Entitic mass] 29.0 pg 27.0-32.0 [facility] Mean corpuscular hemoglobin concentration (MCHC) determinationOrdered By: Reinier Aviles on 02-21-2024 MCHC (RBC) [Mass/Vol] 33.1 g/dL 32-36 [facility] Mean platelet volume determi nationOrdered By: Reinier Aviles on 02-21-2024 Platelet mean volume (Bld) [Entitic vol] 10.2 fL 6.2-12.0 [facility] Monocyte percentageOrdered B y: Reinier Aviles on 02-21-2024 Monocytes/100 WBC (Bld) 5.5 % 0-10 [facility] Neutrophil percentageOrdered By: Reinier Aviles on 02-21-2024 Neutrophils/100 WBC (Bld) 88.2 % High 47-70 [facility] Nucleated red blood cell per centageOrdered By: Reinier Aviles on 02-21-2024 Nucleated RBC/100 WBC (Bld) [Ratio] 0 % 0-5 [facility] Platelet countOrdered By: Ronna Aviles on 02-21-2024 Platelets (Bld) [#/Vol] 200 10*3/uL 150-450 [facility] Platelets LM Ql (Bld)Ordered By: Reinier Aviles on 02-21-2024 Platelet Estimate ADEQUATE ADEQ [facility] Potassium measurementOrdered By: Reinier Aviles on 02-21-2024 Potassium [Moles/Vol] 3.3 mmol/L Low 3.5-5.1 [facility] RBC Auto (Bld) [#/Vol]Ordere d By: Reinier Aviles on 02-21-2024 RBC (Bld) [#/Vol] 4.89 10*6/uL 4.2-5.4 [facility] Serum anion gap measurementO rdered By: Reinier Aviles on 02-21-2024 Anion gap [Moles/Vol] 8 mmol/L 5-15 [facility] Serum globulin measurementOr dered By: Reinier Aviles on 02-21-2024 Globulin (S) [Mass/Vol] 3.3 g/dL 2.2-4.2 [facility] Serum or plasma alanine de jesus otransferase (ALT) measurementOrdered By: Reinier Aviles on 02-21-2024 ALT [Catalytic activity/Vol] 24 U/L 13-56 [facility] Serum or plasma albumin erendira urement (mass/volume)Ordered By: Reinier Aviles on 02-21-2024 Albumin [Mass/Vol] 3.8 g/dL 3.2-5.0 [facility] Serum or plasma alkaline rudy sphatase measurementOrdered By: Reinier Aviles on 02-21-2024 ALP [Catalytic activity/Vol] 41 U/L Low 45-117 [facility] Serum or plasma calcium erendira urement (mass/volume)Ordered By: Reinier Aviles on 02-21-2024 Calcium [Mass/Vol] 8.9 mg/dL 8.5-10.1 [facility] Serum or plasma creatinine m easurement (mass/volume)Ordered By: Reinier Aviles on 02-21-2024 Creatinine [Mass/Vol] 0.66 mg/dL 0.55-1.02 [facility] Comment on above: The validity of the calculated GFR & GFRAA in patients over 70 years has not been determined. Clinical correlation is essential. Serum or plasma urea nitroge n measurement (mass/volume)Ordered By: Reinier Aviles on 02-21-2024 Urea nitrogen [Mass/Vol] 21 mg/dL High 7-18 [facility] Sodium levelOrdered By: Morgan Aviles on 02-21-2024 Sodium [Moles/Vol] 133 mmol/L Low 136-145 [facility] Stool Occult Blood iFOBon STOB Positive Normal [facility] Comment on above: Performed By: #### M 100.7900 ####[facility] [address] [place], [address] Total proteinOrdered By: Luis Aviles on 02-21-2024 Protein [Mass/Vol] 7.1 g/dL 6.4-8.2 [facility] White blood cell (WBC) count Ordered By: Reinier Aviles on 02-21-2024 WBC (Bld) [#/Vol] 10.2 10*3/uL 4.4-11.0 [facility] CNOVon 02-04-2024 CNOV Office Visit (INTMWS ) LEONEL ANDRE ([id number]) 1945 F Date Time Provider Department 02/04/24 11:40 AM FEMI BAEZA INTMWS During your visit today, we recorded the following information about you: Temperature Pulse Respiration Blood pressure 97.7 degrees 76/minute 16/minute 148/86 Weight 62.5 kg Femi Baeza MD 02/04/2024 12:52 PM Signed This note was created using Brainparkter. Subjective Leonel Andre is a 78 year [...] CHERELLE 02/04/2024 (more content not included)... Normal [facility] Inital Evaluation (1) - PTon 01-28-2024 Inital Evaluation (1) - PT [facility] Physical [facility] [address] [place] [address] / REHABILITATION SERVICES INITIAL EVALUATION MR#: [id number] Acct: [id number] Name: LEONEL ANDRE Rep #: [id number] : 1945 78 From: Armond Garza DPT, OCS, CSCS Referring Dr.: Dr. César Johnson MD Status: REG R Insurance: [facility] [place] 01/02/18 SELF PAY INSURANCE Patient's Visit Information [...] to be FAXED BACK to us at [phone] for Medicare purposes. For Medicare only, by signing this I certify the plan of care. Please let me know if there are questions or concerns regarding this plan of care. Physician Signature: ___Date: 01/28/24 1621 CC: Dr. Kurtz (more content not included)... Normal [facility] Laboratory - Microbiology an d Antimicrobial susceptibilityon 01-22-2024 SARS-CoV-2 (COVID-19) RNA ROSE+probe Ql (Unsp spec) Not detected [facility] No Panel Informationon 01-21 Influenza Types A,B Rapid (Clinic) Negative [facility] Urgent Care Visit Reporton 1 03-23-2023 Urgent Care Visit Report [facility] [address], [address] [place] [address] OFFICE VISIT Date of Service: 01/22/24 MR#: [id number] Acct: [id number] Name: LEONEL ANDRE Rep #: [id number] : 1945 Provider: ALBINA Herring Age/Sex: 78/F Location: [facility] Status: Signed Intake Vital Signs 01/13/24 13:02 [...] Plan Ass (more content not included)... [facility] (INTMWS ) LEONEL ANDRE ([id number]) 1945 F Date Time Provider Department 01/17/24 2:00 PM FEMI BAEZA INTMWS During your visit today, we recorded the following information about you: Temperature Pulse Blood pressure Weight 98.1 degrees 106/minute 142/82 64 kg Height 1.626 m Femi Baeza MD 01/17/2024 3:26 PM Signed This note was created using PT Global Tiket Networkriter. Subjective Patient presents with: ER F/U: [facility] ER right flank pain Leonel Andre is a 78 year old female. She had chronic right flank pain radiating around the side to her pelvic area. She felt this had worsened and associated with some urinary symptoms, went to the ER for evaluation. No urinary tract infection was found. 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 Other associated symptom was constipation. Bowel movements [...] ?C (98.1 ?F) Ht 162.6 cm (5' 4) Wt 64 kg (141 lb 1.5 oz) [...] Baeza MD (more content not included)... Normal [facility] Basic Metabolic Profile (BMP )on 01-13-2024 BUN/CRE 22.6 RATIO High 10-20 [facility] Comment on above: Performed By: #### L 100.0100, L500.2500 ####[facility] [address] [place], [address] CA,Total 10.2 mg/dL High 8.5-10.1 [facility] Comment on above: Performed By: #### L 100.0100, L500.2500 ####[facility] [address] [place], [address] Chloride [Moles/Vol] 102 mmol/L Normal 98-107 [facility] Comment on above: Performed By: #### L 100.0100, L500.2500 ####[facility] [address] [place], [address] CO2 [Moles/Vol] 27.0 mmol/L Normal 21.0-32.0 [facility] Comment on above: Performed By: #### L 100.0100, L500.2500 ####[facility] [address] [place], [address] Creatinine [Mass/Vol] 0.66 mg/dL Normal 0.55-1.02 [facility] Comment on above: Result Comment: The validity of the calculated GFR GFRAA in patients over 70 years has not been determined. Clinical correlation is essential. Performed By: #### L 100.0100, L500.2500 ####[facility] [address] [place], [address] ECRCL 57.00 ml/min Normal [facility] Comment on above: Performed By: #### L 100.0100, L500.2500 ####[facility] [address] [place], [address] EST GFR - AA 111 mL/min Normal >60 [facility] Comment on above: Result Comment: Afri can Bermudian GFR Calc Performed By: #### L 100.0100, L500.2500 ####[facility] [address] [place], [address] GAP 9 Normal 5-15 [facility] Comment on above: Performed By: #### L 100.0100, L500.2500 ####[facility] [address] [place], [address] GFR/1.73 sq M.predicted among non-blacks MDRD (S/P/Bld) [Vol rate/Area] 92 mL/min/{1.73_m2} Normal >60 [facility] Comment on above: Result Comment: Non- GFR Calc Performed By: #### L 100.0100, L500.2500 ####[facility] [address] [place], [address] Glucose [Mass/Vol] 131 mg/dL High 74-106 [facility] Comment on above: Result Comment: Fast ing Glucose result greater than or equal to 126 mg/dL suggests DIABETES MELLITUS per A.D.A. criteria. Performed By: #### L 100.0100, L500.2500 ####[facility] [address] [place], [address] Potassium [Moles/Vol] 3.8 mmol/L Normal 3.5-5.1 [facility] Comment on above: Performed By: #### L 100.0100, L500.2500 ####[facility] [address] [place], [address] Sodium [Moles/Vol] 138 mmol/L Normal 136-145 [facility] Comment on above: Performed By: #### L 100.0100, L500.2500 ####[facility] [address] [place], [address] Urea nitrogen [Mass/Vol] 15 mg/dL Normal 7-18 [facility] Comment on above: Performed By: #### L 100.0100, L500.2500 ####[facility] [address] [place], [address] CBC W/Diff, Automatedon 01-02 Absolute Lymph 1.13 X10 3/uL Normal 0.83-4.51 [facility] Comment on above: Performed By: #### L 100.0100, L500.2500 #### [facility] [address] [place], [address] Absolute Neut 7.1 X10 3/uL Normal 2.0-7.7 [facility] Comment on above: Performed By: #### L 100.0100, L500.2500 #### [facility] [address] [place], [address] Basophils/100 WBC (Bld) 0.7 % Normal 0-1 [facility] Comment on above: Performed By: #### L 100.0100, L500.2500 #### [facility] [address] [place], [address] Eosinophils/100 WBC (Bld) 0.0 % Normal 0-5 [facility] Comment on above: Performed By: #### L 100.0100, L500.2500 #### [facility] [address] [place], [address] Erythrocyte distribution width (RBC) [Ratio] 13.2 % Normal 11.6-14.6 [facility] Comment on above: Performed By: #### L 100.0100, L500.2500 #### [facility] [address] [place], [address] Hematocrit (Bld) [Volume fraction] 47.4 % High 37-47 [facility] Comment on above: Performed By: #### L 100.0100, L500.2500 #### [facility] [address] [place], [address] Hemoglobin (Bld) [Mass/Vol] 15.4 g/dL High 12.0-15.0 [facility] Comment on above: Performed By: #### L 100.0100, L500.2500 #### [facility] [address] [place], [address] IG% 0.400 Normal 0.0-0.9 [facility] Comment on above: Result Comment: IG% - Immature Granulocytes (promyelocytes, myelocytes and metamyelocytes) > 1% indicates that a LEFT SHIFT is Present. Performed By: #### L 100.0100, L500.2500 #### [facility] [address] [place], [address] Lymphocytes/100 WBC (Bld) 12.3 % Low 19-41 [facility] Comment on above: Performed By: #### L 100.0100, L500.2500 #### [facility] [address] [place], [address] MCH (RBC) [Entitic mass] 29.1 pg Normal 27.0-32.0 [facility] Comment on above: Performed By: #### L 100.0100, L500.2500 #### [facility] [address] [place], [address] MCHC (RBC) [Mass/Vol] 32.5 g/dL Normal 32-36 [facility] Comment on above: Performed By: #### L 100.0100, L500.2500 #### [facility] [address] [place], [address] MCV (RBC) [Entitic vol] 89.6 fL Normal 81-99 [facility] Comment on above: Performed By: #### L 100.0100, L500.2500 #### [facility] [address] [place], [address] Monocytes/100 WBC (Bld) 8.6 % Normal 0-10 [facility] Comment on above: Performed By: #### L 100.0100, L500.2500 #### [facility] [address] [place], [address] Neutrophils/100 WBC (Bld) 78.0 % High 47-70 [facility] Comment on above: Performed By: #### L 100.0100, L500.2500 #### [facility] [address] [place], [address] Nucleated RBC (Bld) [#/Vol] 0 10*3/uL Normal 0-5 [facility] Comment on above: Performed By: #### L 100.0100, L500.2500 #### [facility] [address] [place], [address] Platelet mean volume (Bld) [Entitic vol] 10.6 fL Normal 6.2-12.0 [facility] Comment on above: Performed By: #### L 100.0100, L500.2500 #### [facility] [address] [place], [address] Platelets (Bld) [#/Vol] 215 10*3/uL Normal 150-450 [facility] Comment on above: Performed By: #### L 100.0100, L500.2500 #### [facility] [address] [place], [address] RBC (Bld) [#/Vol] 5.29 10*6/uL Normal 4.2-5.4 [facility] Comment on above: Performed By: #### L 100.0100, L500.2500 #### [facility] [address] [place], [address] RDW SD 43.0 fl Normal 35.1-43.9 [facility] Comment on above: Performed By: #### L 100.0100, L500.2500 #### [facility] [address] [place], [address] WBC (Bld) [#/Vol] 9.2 10*3/uL Normal 4.4-11.0 [facility] Comment on above: Performed By: #### L 100.0100, L500.2500 #### [facility] [address] [place], [address] Emergency Department Summary on 01-13-2024 Emergency Department Summary [facility] Medical Records Department [address] [place] [address] Emergency Department Summary 01/13/24 MR#: [id number] Acct: [id number] Name: LEONEL ANDRE Rep #: [id number] : 1945 78 From: Calvin Andrews MD [...] masses. These were removed by urologist at [facility] in the remote past. Apparently there [...] December [address] Johnson December 15.) [facility] Medical History Diverticular disease Primary hyperparathyroidism Sciatica [...] denosumab 60 mg/mL subcutaneous 60 mg subcut [id number] #1 mL 10/03/22 Unknown Rx syringe (Prolia) [...] sore throat (more content not included)... Normal [facility] Urinalysis, Completeon 01-12 BACTERIA 0 SEEN Normal None Seen [facility] Comment on above: Order Comment: CLEAN CATCH Performed By: #### L 100.0100, L500.4050, L501.9520, L501.2300 #### [facility] [address] [place], [place], [address] EPI,SQUAMOUS 0 SEEN Normal 5-10 [facility] Comment on above: Order Comment: CLEAN CATCH Performed By: #### L 100.0100, L500.4050, L501.9520, L501.2300 #### [facility] [address] [place], [address] Mucus Ql (Urine sed) 0 SEEN Normal [facility] Comment on above: Order Comment: CLEAN CATCH Performed By: #### L 100.0100, L500.4050, L501.9520, L501.2300 #### [facility] [address] [place], [address] RBC 0 SEEN Normal 0-5 [facility] Comment on above: Order Comment: CLEAN CATCH Performed By: #### L 100.0100, L500.4050, L501.9520, L501.2300 #### [facility] [address] [place], [address] WBC 0 SEEN Normal 0-5 [facility] Comment on above: Order Comment: CLEAN CATCH Performed By: #### L 100.0100, L500.4050, L501.9520, L501.2300 #### [facility] [address] [place], [address] [facility] ([id number]) 1945 F Date Time Provider Department 11/13/23 FEMI BAEZA INTWS During your visit today, we recorded the following information about you: Madelaine Griffihts LPN 11/13/2023 8:12 AM Signed ----- Message from Xuan Brandon APRN.[employer] sent at 11/13/2023 7:57 AM EDT ----- Please let the patient know there has been a signficant decrease in her bone density, especially in the spine. Recommend follow-up with beam builder concerning these results since she is managing the Prolia injections/osteoporosis Xuan Brandon APRN.NICOLE Griffiths Madelainerishabh Soriano LPN 11/13/2023 8:15 AM Signed Patient notified of below results/recommendations, has an appt with Endo next month. Madelaine Griffiths LPN Allergies As of Date: 11/13/2023 Noted [...] Status:Closed by MADELAINE GRIFFITHS on 11/13/23 Normal [facility] BD DXA - AXIAL SKELETONon BD DXA - AXIAL SKELETON * * *Final Report* * * DATE OF EXAM: Nov 11 2023 2:23PM MARY LOU 0804 - BD DXA - AXIAL SKELETON / PROCEDURE REASON: Osteoporosis, unspecified osteoporosis type, unspecified pathological fracture p * * * * Physician Interpretation * * * * EXAMINATION: DXA BONE DENSITOMETRY BD DXA - AXIAL SKELETON, BD DXA TRABECLR BONE SCORE (TBS) PATIENT DEMOGRAPHICS: Age: 78 years, Gender: Female SCANNER INFORMATION: DXA Model: [facility] C [address]18 Date Scanned: 11/11/2023 2:23 PM CLINICAL HISTORY: [...] FOR MORE INFORMATION ABOUT DIAGNOSIS AND TREATMENT: [facility] for Osteoporosis and Metabolic Bone Disease:? www.ccf.org/arthritis/osteo National Osteoporosis Foundation:? www.nof.org International Society of Clinical Densitometry www.iscd.org Chief School Finance Officer: VASU Transcribe Date/Time: Nov 11 2023 2:28P Dictated by : RAMON MORENO MD This examination was interpreted and the report reviewed and electronically signed by: RAMON MORENO MD on Nov 11 2023 2:32PM EST [id number] -3.0 Normal [facility] BD DXA TRABECLR BONE SCORE ( TBS)on [...] years, Gender: Female SCANNER INFORMATION: DXA Model: [facility] C [address]248 Date Scanned: 11/11/2023 2:23 PM CLINICAL HISTORY: [...] FOR MORE INFORMATION ABOUT DIAGNOSIS AND TREATMENT: [facility] for Osteoporosis and Metabolic Bone Disease:? www.ccf.org/arthritis/osteo National Osteoporosis Foundation:? www.nof.org International Society of Clinical Densitometry www.iscd.org Chief School Finance Officer: VASU Transcribe Date/Time: Nov 11 2023 2:28P Dictated by : RAMON MORENO MD This examination was interpreted and the report reviewed and electronically signed by: RAMON MORENO MD on Nov 11 2023 2:32PM EST [id number] -3.0 Normal [facility] DXA Femur [T-score] Bone den senaityon 11-11-2023 * * *Final Report* * * [...] years, Gender: Female SCANNER INFORMATION: DXA Model: [facility] C [address]69 Date Scanned: 11/11/2023 2:23 PM CLINICAL HISTORY: [...] years, Gender: Female SCANNER INFORMATION: DXA Model: [facility] C 12032 Date Scanned: 11/11/2023 2:23 PM CLINICAL HISTORY: [...] FOR MORE INFORMATION ABOUT DIAGNOSIS AND TREATMENT: [facility] for Osteoporosis and Metabolic Bone Disease:? www.ccf.org/arthritis/osteo National Osteoporosis Foundation:? www.nof.org International Society of Clinical Densitometry www.iscd.org Chief School Finance Officer: VASU Transcribe Date/Time: Nov 11 2023 2:28P Dictated by : RAMON MORENO MD This examination was interpreted and the report reviewed and electronically signed by: RAMON MORENO MD on Nov 11 2023 2:32PM EST [facility] DXA Skeletal system.axial Vi ews for bone densityon 11-11-2023 * * *Final Report* * * DATE OF EXAM: Nov 11 2023 2:23PM ARASELI 0804 - BD DXA - AXIAL SKELETON / PROCEDURE REASON: Osteoporosis, unspecified osteoporosis type, unspecified pathological fracture p * * * * Physician Interpretation * * * * EXAMINATION: DXA BONE DENSITOMETRY BD DXA - AXIAL SKELETON, BD DXA TRABECLR BONE SCORE (TBS) PATIENT DEMOGRAPHICS: Age: 78 years, Gender: Female SCANNER INFORMATION: DXA Model: [facility] C [address]395 Date Scanned: 11/11/2023 2:23 PM CLINICAL HISTORY: [...] - 1.310) DIVISION OF RADIOLOGY Provider, [facility] - 11/11/2023 * * *Final Report* * [...] years, Gender: Female SCANNER INFORMATION: DXA Model: [facility] C [address]37 Date Scanned: 11/11/2023 2:23 PM CLINICAL HISTORY: [...] g/cm2, T-score -1.1, Z-score 1.4 Lumbar spine: 2014: 0.857 g/cm2 There has been a 7.7% [...] FOR MORE INFORMATION ABOUT DIAGNOSIS AND TREATMENT: [facility] for Osteoporosis and Metabolic Bone Disease:? www.ccf.org/arthritis/osteo National Osteoporosis Foundation:? www.nof.org International Society of Clinical Densitometry www.iscd.org Chief School Finance Officer: VASU Transcribe Date/Time: Nov 11 2023 2:28P Dictated by : RAMON MORENO MD This examination was interpreted and the report reviewed and electronically signed by: RAMON MORENO MD on Nov 11 2023 2:32PM EST [facility] No Panel InformationOrdered By: [facility] Provider on 11-11-2023 LOWEST T-SCORE -3.0 [facility] No Panel Informationon 11-10 IMPRESSION: THE LOWEST [...] FOR MORE INFORMATION ABOUT DIAGNOSIS AND TREATMENT: [facility] for Osteoporosis and Metabolic Bone Disease:? www.ccf.org/arthritis/osteo National Osteoporosis Foundation:? www.nof.org International Society of Clinical Densitometry www.iscd.org Chief School Finance Officer: VASU Transcribe Date/Time: Nov 11 2023 2:28P Dictated by : RAMON MORENO MD This examination was interpreted and the report reviewed and electronically signed by: RAMON MORENO MD on Nov 11 2023 2:32PM EST DIVISION OF RADIOLOGY Radiology Study observation (narrative) [facility] Bacteria Ur Culton Bacteria identified Cx Nom (U) ORGANISM ID: 1 10,000 -<50,000 CFU/ml Aerococcus urinae No susceptibility testing done. Normal [facility] Comment on above: Performed By: #### 6 30-4 #### [facility] CLIA [id number] [address] [place] [address] [place] CNOVon 11-08-2023 CNOV Office Visit (INTMWS ) LEONEL ANDRE ([id number]) 1945 F Date Time Provider Department 11/08/23 1:00 PM XUAN BRANDON INTMWS During your visit today, we recorded the following information about you: Pulse Respiration Blood pressure Weight 82/minute 16/minute 157/74 63 kg Xuan Brandon, WASTE RECYCLER.[facility] 11/08/2023 1:36 PM Signed CC: Patient presents with: UTI: Weeks c/p abdominal cramping, burning with urination HPI [...] COMPARTMENTS; Bilateral Comment: Knee replacement, total, Bilateral 1980: CHOLECYSTECTOMY Comment: open 06/09/2004: COLONOSCOPY FLX DX [...] maternal cousin Coronary Artery Disease Brother of MD at 54. Social History Tobacco Use Smoking status: Former Current packs/day: 0.00 Average packs/day: 1 pack/day for 23.0 years (23.0 ttl pk-yrs) Types: Cigarettes Start date: 03/04/1956 Quit date: 03/04/1979 Years since quittin.7 Smokeless tobacco: Never Vaping Use (more content not included)... Normal [facility] UA DIP, URINE (POC)on 2023 BILIRUBIN UA (POCT) Negative Negative [facility] CLARITY UA (POCT) Clear [facility] COLOR UA (POCT) Yellow [facility] GLUCOSE UA (POCT) Negative Negative mg/dL [facility] Hemoglobin Ql (U) Trace-intact Abnormal Negative [facility] Interpretation and review of laboratory results Abnormal [facility] KETONE UA (POCT) Negative Negative mg/dL [facility] LEUKOCYTES UA (POCT) Negative Negative [facility] NITRITE UA (POCT) Negative Negative [facility] PH UA (POCT) 7.0 4.5 - 8.0 [facility] Protein Ql (U) Negative Negative mg/dL [facility] SPECIFIC GRAVITY UA (POCT) 1.010 1.005 - 1.030 [facility] UROBILINOGEN UA (POCT) 0.2 Kindra l E.U./dL [facility] Location:[address], [place], [address] [facility] POINT OF CARE [facility] UA DIP, URINE (POC)on 2023 BILIRUBIN UA (POCT) Negative Negative [facility] CLARITY UA (POCT) Clear [facility] COLOR UA (POCT) Light yellow [facility] GLUCOSE UA (POCT) Negative Negative mg/dL [facility] Hemoglobin Ql (U) Trace-lysed Abnormal Negative [facility] KETONE UA (POCT) Negative Negative mg/dL [facility] LEUKOCYTES UA (POCT) Negative [facility] NITRITE UA (POCT) Negative Negative [facility] PH UA (POCT) 7.0 4.5 - 8.0 [facility] Protein Ql (U) Negative Negative mg/dL [facility] SPECIFIC GRAVITY UA (POCT) 1.010 1.005 - 1.030 [facility] UROBILINOGEN UA (POCT) 0.2 E.U./dL Kindra l E.U./dL [facility] Basophil percentageOrdered B y: Peewee Negro on 12-12-2022 Basophil percentage < 0.9 mg/dL 0.55-1.02 [facility] No Panel InformationOrdered By: Peewee Negro on 12-12-2022 Bedside Estimated GFR (eGFR) > 60.0000 mL/min >60 [facility] UA DIP, URINE (POC)on 2022 BILIRUBIN UA (POCT) Negative Negative [place] CLARITY UA (POCT) Clear [facility] COLOR UA (POCT) Yellow [facility] GLUCOSE UA (POCT) Negative Negative mg/dL [facility] Hemoglobin Ql (U) Trace-intact Abnormal Negative [place] [facility] KETONE UA (POCT) Negative Negative mg/dL [facility] LEUKOCYTES UA (POCT) Negative Negative [facility] NITRITE UA (POCT) Negative Negative [facility] PH UA (POCT) 6.0 4.5 - 8.0 [facility] Protein Ql (U) Negative Negative mg/dL [facility] SPECIFIC GRAVITY UA (POCT) 1.010 1.005 - 1.030 [facility] UROBILINOGEN UA (POCT) 0.2 E.U./dL Kindra l E.U./dL [facility] Absolute lymphocyte counton 11-18-2021 Lymphocytes Auto (Unsp spec) [#/Vol] 1.07 10*3/uL 0.83-4.51 [facility] Work Phone: Basophil percentageon 2021 Basophil percentage 0-5 SEEN /hpf 0-[address] [facility] Work Phone: Basophils/100 WBC (Bld) 0.6 % 0-1 [facility] Work Phone: Bilirubin [Mass/Vol] 0.30 mg/dL 0.20-1.00 [facility] Work Phone: [phone] Comment on above: For patients on eltr ombopag therapy, use of Dimension [place] TBIL is not recommended. Chloride [Moles/Vol] 102 mmol/L 98-107 [facility] Work Phone: Eosinophils/100 WBC (Bld) 0.7 % 0-5 [facility] Work Phone: [phone] Glucose [Mass/Vol] 117 mg/dL 74-106 [facility] Work Phone: [phone] Comment on above: Fasting Glucose resu lt from 100 to 125 mg/dL suggests IMPAIRED HOMEOSTASIS per A.D.A. criteria. Neutrophils (Bld) [#/Vol] 5.1 10*3/uL 2.0-7.7 [facility] Work Phone: [phone] Neutrophils/100 WBC (Bld) 73.0 % 47-70 [facility] Work Phone: [phone] Potassium [Moles/Vol] 4.0 mmol/L 3.5-5.1 [facility] Work Phone: [phone] Protein [Mass/Vol] 7.9 g/dL 6.4-8.2 [facility] Work Phone: [phone] Sodium [Moles/Vol] 137 mmol/L 136-145 [facility] Work Phone: WBC (Bld) [#/Vol] 6.9 10*3/uL 4.4-11.0 [facility] Work Phone: [phone] Bilirubin Test strip Ql (U)o n 11-18-2021 Bilirubin Ql (U) Negative Negative [facility] Work Phone: [phone] Blood erythrocytes count (nu mber/volume)on 11-18-2021 RBC (Bld) [#/Vol] 4.80 10*6/uL 4.2-5.4 [facility] Work Phone: Blood hemoglobin measurement (mass/volume)on 11-18-2021 Hemoglobin (Bld) [Mass/Vol] 13.9 g/dL 12.0-15.0 [facility] Work Phone: Blood lymphocytes/100 leukoc yteson 11-18-2021 Lymphocytes/100 WBC (Bld) 15.4 % 19-41 [facility] Work Phone: Blood monocytes/100 leukocyt eson 11-18-2021 Monocytes/100 WBC (Bld) 10.0 % 0-10 [facility] Work Phone: Blood platelet mean volumeon 11-18-2021 Platelet mean volume (Bld) [Entitic vol] 10.4 fL 6.2-12.0 [facility] Work Phone: Determination of erythrocyte mean corpuscular volume (MCV)on 11-18-2021 MCV (RBC) [Entitic vol] 89.6 fL 81-99 [facility] Work Phone: [phone] Hematocrit Auto (Bld) [Volum e fraction]on 11-18-2021 Hematocrit (Bld) [Volume fraction] 43.0 % 37-47 [facility] Work Phone: Ketones Test strip Ql (U)on 11-18-2021 Ketones Ql (U) Negative Negative [facility] Work Phone: Laboratory - Chemistry and C hemistry - challengeon 11-18-2021 Magnesium [Mass/Vol] 1.9 mg/dL 1.6-2.6 [facility] Work Phone: [phone] ALP [Catalytic activity/Vol] 71 U/L 45-117 [facility] Work Phone: [phone] ALT [Catalytic activity/Vol] 18 U/L 13-56 [facility] Work Phone: [phone] CO2 [Moles/Vol] 27.0 mmol/L 21.0-32.0 [facility] Work Phone: [phone] Globulin (S) [Mass/Vol] 3.7 g/dL 2.2-4.2 [facility] Work Phone: Urea nitrogen/Creatinine [Mass ratio] 27.0 mg/mg 10-20 [facility] Work Phone: Laboratory - Hematology and Cell countson 11-18-2021 Erythrocyte distribution width (RBC) [Entitic vol] 41.7 fL 35.1-43.9 [facility] Work Phone: Erythrocyte distribution width (RBC) [Ratio] 12.7 % 11.6-14.6 [facility] Work Phone: Immature granulocytes/100 WBC (Bld) 0.300 % 0.0-0.9 [facility] Work Phone: Comment on above: IG% - Immature Granu locytes (promyelocytes, myelocytes and metamyelocytes) > 1% indicates that a LEFT SHIFT is Present. MCH (RBC) [Entitic mass] 29.0 pg 27.0-32.0 [facility] Work Phone: Nucleated RBC/100 WBC (Bld) [Ratio] 0 % 0-5 [facility] Work Phone: MCHC Auto (RBC) [Mass/Vol]on 11-18-2021 MCHC (RBC) [Mass/Vol] 32.3 g/dL 32-36 [facility] Work Phone: Mucus LM Ql (Urine sed)on Mucus Ql (Urine sed) 0 SEEN /hpf [facility] Work Phone: Nitrite Test strip Ql (U)on 11-18-2021 Nitrite Ql (U) Negative Negative [facility] Work Phone: No Panel Informationon 11-18 Troponin I High Sensitivity 8 pg/mL 3.0-54.0 [facility] Work Phone: Comment on above: Please Note: [place] t Units and Gender Specific Reference Ranges. For more information see Policy Stat Procedure [place] High Sensitivity Troponin (TNIH) and attachments. Estimated Creatinine Clearance Calc 41.97 ml/min [facility] Work Phone: Estimated GFR (MDRD) Amer 93 mL/min >60 [facility] Work Phone: Comment on above: GFR Calc Estimated GFR (MDRD) Non-Af Amer 77 mL/min >60 [facility] Work Phone: Comment on above: Non- GFR Calc Platelets bldon 11-18-2021 Platelets (Bld) [#/Vol] 207 10*3/uL 150-450 [facility] Work Phone: Protein Test strip Ql (U)on 11-18-2021 Protein Ql (U) Negative Negative [facility] Work Phone: Serum or plasma albumin erendira urement (mass/volume)on 11-18-2021 Albumin [Mass/Vol] 4.2 g/dL 3.2-5.0 [facility] Work Phone: Serum or plasma albumin/glob ulin mass ratioon 11-18-2021 Albumin/Globulin [Mass ratio] 1.1 {ratio} 0.9-2.4 [facility] Work Phone: Serum or plasma calcium erendira urement (mass/volume)on 11-18-2021 Calcium [Mass/Vol] 10.7 mg/dL 8.5-10.1 [facility] Work Phone: Serum or plasma creatinine m easurement (mass/volume)on 11-18-2021 Creatinine [Mass/Vol] 0.78 mg/dL 0.55-1.02 [facility] Work Phone: Comment on above: The validity of the calculated GFR & GFRAA in patients over 70 years has not been determined. Clinical correlation is essential. Serum or plasma urea nitroge n measurement (mass/volume)on 11-18-2021 Urea nitrogen [Mass/Vol] 21 mg/dL 7-18 [facility] Work Phone: Squamous epithelial cells de tection in urine sediment by light microscopyon 11-18-2021 Epithelial cells.squamous LM Ql (Urine sed) 0-5 SEEN /hpf 5-10 [facility] Work Phone: Thin prep Papanicolaou smear with manual screeningon 11-18-2021 Thin prep Papanicolaou smear with manual screening 13 U/L 15-37 [facility] Work Phone: [phone] Thin prep Papanicolaou smear with manual screening 8 5-15 [facility] Work Phone: Urine blood detectionon 11-02 RBC Ql (U) 25 /ul Negative [facility] Work Phone: [phone] RBC Ql (U) 0-5 SEEN /hpf 0-5 [facility] Work Phone: Urine clarityon 11-18-2021 Clarity (U) Clear Clear [facility] Work Phone: Urine color determinationon 11-18-2021 Color (U) Straw Yellow [facility] Work Phone: Urine glucose detectionon Glucose Ql (U) Normal mg/dl Normal [facility] Work Phone: [phone] Urine leukocyte esterase det ection by dipstickon 11-18-2021 Leukocyte esterase Test strip Ql (U) Negative Negative [facility] Work Phone: Urine pHon 11-18-2021 pH (U) 6.5 [pH] 5.0 - 8.0 [facility] Work Phone: Urine sediment bacteria coun t by microscopy (number/high power field)on 11-18-2021 Bacteria LM.HPF (Urine sed) [#/Area] RARE /hpf None Seen [facility] Work Phone: [phone] Urine specific gravity measu rementon 11-18-2021 Specific gravity (U) [Rel density] 1.010 1.002-1.03 0 [facility] Work Phone: [phone] Urobilinogen Auto test strip Ql (U)on 11-18-2021 Urobilinogen Ql (U) Normal mg/dl Normal [facility] Work Phone: Basophil percentageon 2021 Creatinine [Mass/Vol] 0.8 mg/dL 0.55-1.02 [facility] Work Phone: No Panel Informationon 07-07 Bedside Estimated GFR (eGFR) > 60.0000 mL/min >60 [facility] Work Phone: US KIDNEY/BLADDERon 06-20-19 [facility] UA DIP, URINE (POC)on 2021 BILIRUBIN UA (POCT) Negative Negative [facility] CLARITY UA (POCT) Clear [facility] COLOR UA (POCT) Yellow [facility] GLUCOSE UA (POCT) Negative Negative mg/dL [facility] HEMOGLOBIN/BLOOD UA (POCT) Trace-intact Abnormal Negative [facility] KETONE UA (POCT) Negative Negative mg/dL [facility] LEUKOCYTES UA (POCT) Negative Negative [facility] NITRITE UA (POCT) Negative Negative [facility] PH UA (POCT) 6.5 4.5 - 8.0 [facility] Protein Ql (U) Negative Negative mg/dL [facility] SPECIFIC GRAVITY UA (POCT) 1.010 1.005 - 1.030 [facility] UROBILINOGEN UA (POCT) 0.2 E.U./dL Kindra l E.U./dL [facility] Absolute lymphocyte counton 06-01-2021 Lymphocytes Auto (Unsp spec) [#/Vol] 1.26 10*3/uL 0.83-4.51 [facility] Work Phone: Amorphous sediment detection in urine sediment by light microscopyon 06-01-2021 Amorphous sediment LM Ql (Urine sed) 1+ PHOS [facility] Work Phone: Basophil percentageon 2021 Basophils/100 WBC (Bld) 0.8 % 0-1 [facility] Work Phone: Chloride [Moles/Vol] 103 mmol/L 98-107 [facility] Work Phone: Eosinophils/100 WBC (Bld) 1.7 % 0-5 [facility] Work Phone: Glucose [Mass/Vol] 102 mg/dL 74-106 [facility] Work Phone: [phone] Comment on above: Fasting Glucose resu lt from 100 to 125 mg/dL suggests IMPAIRED HOMEOSTASIS per A.D.A. criteria. Neutrophils (Bld) [#/Vol] 5.3 10*3/uL 2.0-7.7 [facility] Work Phone: Neutrophils/100 WBC (Bld) 71.7 % 47-70 [facility] Work Phone: Potassium [Moles/Vol] 4.4 mmol/L 3.5-5.1 [facility] Work Phone: Sodium [Moles/Vol] 136 mmol/L 136-145 [facility] Work Phone: WBC (Bld) [#/Vol] 7.5 10*3/uL 4.4-11.0 [facility] Work Phone: [phone] Basophil percentage 0 SEEN /hpf [facility] Work Phone: [phone] Bilirubin Test strip Ql (U)o n 06-01-2021 Bilirubin Ql (U) Negative Negative [facility] Work Phone: [phone] Blood erythrocytes count (nu mber/volume)on 06-01-2021 RBC (Bld) [#/Vol] 4.80 10*6/uL 4.2-5.4 [facility] Work Phone: [phone] Blood hemoglobin measurement (mass/volume)on 06-01-2021 Hemoglobin (Bld) [Mass/Vol] 13.8 g/dL 12.0-15.0 [facility] Work Phone: Blood lymphocytes/100 leukoc yteson 06-01-2021 Lymphocytes/100 WBC (Bld) 16.9 % 19-41 [facility] Work Phone: Blood monocytes/100 leukocyt eson 06-01-2021 Monocytes/100 WBC (Bld) 8.5 % 0-10 [facility] Work Phone: Blood platelet mean volumeon 06-01-2021 Platelet mean volume (Bld) [Entitic vol] 10.9 fL 6.2-12.0 [facility] Work Phone: Culture, urineon 06-01-2021 Bacteria identified Cx Nom (U) Culture exhibits no growth. [facility] Work Phone: Determination of erythrocyte mean corpuscular volume (MCV)on 06-01-2021 MCV (RBC) [Entitic vol] 90.8 fL 81-99 [facility] Work Phone: Hematocrit Auto (Bld) [Volum e fraction]on 06-01-2021 Hematocrit (Bld) [Volume fraction] 43.6 % 37-47 [facility] Work Phone: Ketones Test strip Ql (U)on 06-01-2021 Ketones Ql (U) Negative Negative [facility] Work Phone: Laboratory - Chemistry and C hemistry - challengeon 06-01-2021 CO2 [Moles/Vol] 28.0 mmol/L 21.0-32.0 [facility] Work Phone: Urea nitrogen/Creatinine [Mass ratio] 25.1 mg/mg 10-20 [facility] Work Phone: Laboratory - Hematology and Cell countson 06-01-2021 Erythrocyte distribution width (RBC) [Entitic vol] 41.1 fL 35.1-43.9 [facility] Work Phone: Erythrocyte distribution width (RBC) [Ratio] 12.3 % 11.6-14.6 [facility] Work Phone: Immature granulocytes/100 WBC (Bld) 0.400 % 0.0-0.9 [facility] Work Phone: Comment on above: IG% - Immature Granu locytes (promyelocytes, myelocytes and metamyelocytes) > 1% indicates that a LEFT SHIFT is Present. MCH (RBC) [Entitic mass] 28.8 pg 27.0-32.0 [facility] Work Phone: Nucleated RBC/100 WBC (Bld) [Ratio] 0 % 0-5 [facility] Work Phone: MCHC Auto (RBC) [Mass/Vol]on 06-01-2021 MCHC (RBC) [Mass/Vol] 31.7 g/dL 32-36 [facility] Work Phone: Mucus LM Ql (Urine sed)on Mucus Ql (Urine sed) 0 SEEN /hpf [facility] Work Phone: Nitrite Test strip Ql (U)on 06-01-2021 Nitrite Ql (U) Negative Negative [facility] Work Phone: No Panel Informationon 06-01 Estimated Creatinine Clearance Calc 49.97 ml/min [facility] Work Phone: Estimated GFR (MDRD) Amer 85 mL/min >60 [facility] Work Phone: Comment on above: GFR Calc Estimated GFR (MDRD) Non-Af Amer 70 mL/min >60 [facility] Work Phone: Comment on above: Non- GFR Calc Platelets bldon 06-01-2021 Platelets (Bld) [#/Vol] 201 10*3/uL 150-450 [facility] Work Phone: Protein Test strip Ql (U)on 06-01-2021 Protein Ql (U) Negative Negative [facility] Work Phone: Serum or plasma calcium erendira urement (mass/volume)on 06-01-2021 Calcium [Mass/Vol] 10.6 mg/dL 8.5-10.1 [facility] Work Phone: Serum or plasma creatinine m easurement (mass/volume)on 06-01-2021 Creatinine [Mass/Vol] 0.84 mg/dL 0.55-1.02 [facility] Work Phone: Comment on above: The validity of the calculated GFR & GFRAA in patients over 70 years has not been determined. Clinical correlation is essential. Serum or plasma urea nitroge n measurement (mass/volume)on 06-01-2021 Urea nitrogen [Mass/Vol] 21 mg/dL 7-18 [facility] Work Phone: Squamous epithelial cells de tection in urine sediment by light microscopyon 06-01-2021 Epithelial cells.squamous LM Ql (Urine sed) 0-5 SEEN /hpf [facility] Work Phone: Thin prep Papanicolaou smear with manual screeningon 06-01-2021 Thin prep Papanicolaou smear with manual screening 5 5-15 [facility] Work Phone: Urine blood detectionon 03-3 RBC Ql (U) Negative Negative [facility] Work Phone: RBC Ql (U) 0 SEEN /hpf [facility] Work Phone: Urine clarityon 06-01-2021 Clarity (U) Sl. Cloudy Clear [facility] Work Phone: Urine color determinationon 06-01-2021 Color (U) Yellow Yellow [facility] Work Phone: Urine glucose detectionon Glucose Ql (U) Normal mg/dl Normal [facility] Work Phone: Urine leukocyte esterase det ection by dipstickon 06-01-2021 Leukocyte esterase Test strip Ql (U) Negative Negative [facility] Work Phone: Urine pHon 06-01-2021 pH (U) 7.0 [pH] [facility] Work Phone: Urine sediment bacteria coun t by microscopy (number/high power field)on 06-01-2021 Bacteria LM.HPF (Urine sed) [#/Area] 0 /[HPF] None Seen [facility] Work Phone: Urine specific gravity measu rementon 06-01-2021 Specific gravity (U) [Rel density] 1.010 [facility] Work Phone: Urobilinogen Auto test strip Ql (U)on 06-01-2021 Urobilinogen Ql (U) Normal mg/dl Normal [facility] Work Phone: Culture, urine Bacteria identified Cx Nom (U) Mixed Gram Pos & Gram Neg Org [facility] Work Phone: Bacteria identified Cx Nom (U) Positive [facility] Work Phone: Vital Signs Date Time Vital Sign Value Performing Clinician Faci lity 12-09-2024 15:55-0400 Body temperature 98.9 [degF] Dr. Femi Baeza MD Work Phone: 2(910)098-990797 [place] [address] 12-09-2024 15:55-0400 Diastolic blood pressure 65 mm[Hg] Dr. Femi Baeza MD Work Phone: 4(067)511-027797 [place] [address] 12-09-2024 15:55-0400 Heart rate 66 /min Dr. Femi Baeza MD Work Phone: 4(861)893-922397 [place] [address] 12-09-2024 15:55-0400 Respiratory rate 16 /min Dr. Femi Baeza MD Work Phone: 1(119)340-694897 [place] [address] 12-09-2024 15:55-0400 SaO2% (BldA) [Mass fraction] 98 % Dr. Femi Baeza MD Work Phone: 0(393)757-008944 [place] [address] 12-09-2024 15:55-0400 Systolic blood pressure 126 mm[Hg] Dr. Femi Baeza MD Work Phone: 1(235)657-824797 [place] [address] 12-09-2024 04:12-0400 Body mass index (BMI) [Ratio] 21.2 kg/m2 Dr. Femi Baeza MD Work Phone: 8(553)042-331244 [place] [address] 12-09-2024 04:12-0400 Body weight 56.[address] Femi Baeza MD Work Phone: 2(756)736-781597 [place] [address] 12-08-2024 14:42-0400 Body height 162.[address] Femi Baeza MD Work Phone: 1(294)494-730297 [place] [address] 12-07-2024 21:16-0400 Body temperature 98.1 [degF] Dr. Femi Baeza MD Work Phone: 3(592)841-809797 [place] [address] 12-07-2024 21:16-0400 Diastolic blood pressure 83 mm[Hg] Dr. Femi Baeza MD Work Phone: 6(092)296-675044 [place] [address] 12-07-2024 21:16-0400 Heart rate 59 /min Dr. Femi Baeza MD Work Phone: 3(235)338-272544 [place] [address] 12-07-2024 21:16-0400 Respiratory rate 18 /min Dr. Femi Baeza MD Work Phone: 8(843)547-166697 [place] [address] 12-07-2024 21:16-0400 SaO2% (BldA) [Mass fraction] 100 % Dr. Femi Baeza MD Work Phone: 4(893)678-362697 [place] [address] 12-07-2024 21:16-0400 Systolic blood pressure 125 mm[Hg] Dr. Femi Baeza MD Work Phone: 4(519)576-926397 [place] [address] 12-07-2024 16:43-0400 Body mass index (BMI) [Ratio] 20.3 kg/m2 Dr. Femi Baeza MD Work Phone: 4(880)503-073297 [place] [address] 12-07-2024 16:43-0400 Body weight 53.[address] Femi Baeza MD Work Phone: 6(849)011-134397 [place] [address] 12-07-2024 16:06-0400 Body height 162.[address] Femi Baeza MD Work Phone: 4(505)739-775744 [place] [address] 11-09-2024 14:29-0400 Body height 162.[address] Femi Baeza MD Work Phone: 0(030)821-640397 [place] [address] 11-09-2024 14:29-0400 Body mass index (BMI) [Ratio] 24.7 kg/m2 Dr. Femi Baeza MD Work Phone: 9(198)420-801897 [place] [address] 11-09-2024 14:29-0400 Body weight 65.[address] Femi Baeza MD Work Phone: 5(782)107-278244 [place] [address] 10-28-2024 17:04-0400 Diastolic blood pressure 68 mm[Hg] Femi Baeza MD Work Phone: [facility] 10-28-2024 17:04-0400 Heart rate 64 /min Femi Baeza MD Work Phone: [facility] 10-28-2024 17:04-0400 Systolic blood pressure 140 mm[Hg] Femi Baeza MD Work Phone: [facility] 10-28-2024 16:16-0400 Body mass index (BMI) [Ratio] 20.03 kg/m2 Femi Baeza MD Work Phone: [facility] 10-28-2024 16:16-0400 Body weight 56.3 kg Femi Baeza MD Work Phone: [facility] 09-08-2024 13:42-0400 Body height 167.6 cm Xuan Brandon APRN.[employer] Work Phone: [facility] 09-08-2024 13:42-0400 Body mass index (BMI) [Ratio] 19.78 kg/m2 Xuan Brandon APRN.[employer] Work Phone: [facility] 09-08-2024 13:42-0400 Body temperature 99.7 [degF] Xuan Brandon APRN.[employer] Work Phone: [facility] 09-08-2024 13:42-0400 Body weight 55.6 kg Xuan Brandon APRN.[employer] Work Phone: [facility] 09-08-2024 13:42-0400 Diastolic blood pressure 70 mm[Hg] Xuan Brandon APRN.[employer] Work Phone: [facility] 09-08-2024 13:42-0400 Heart rate 74 /min Xuan Brandon APRN.[employer] Work Phone: [facility] 09-08-2024 13:42-0400 Respiratory rate 14 /min Xuan Brandon APRN.[employer] Work Phone: [facility] 09-08-2024 13:42-0400 SaO2% (BldA) [Mass fraction] 98 % Xuan Abi WASTE RECYCLER.[employer] Work Phone: [facility] 09-08-2024 13:42-0400 Systolic blood pressure 136 mm[Hg] Xuan Abi W[employer]E RECY[employer]ER.[employer] Work Phone: [facility] 08-03-2024 14:44-0400 Body mass index (BMI) [Ratio] 19.69 kg/m2 Xuan Abi [employer] RECY[employer]ER.[employer] Work Phone: [facility] 08-03-2024 14:44-0400 Body weight 55.34 kg Xuan Abi W[employer]E RECY[employer]ER.[employer] Work Phone: [facility] 08-03-2024 14:44-0400 Diastolic blood pressure 66 mm[Hg] Xuan Abi [employer]E RECY[employer]ER.[employer] Work Phone: [facility] 08-03-2024 14:44-0400 Heart rate 56 /min Xuan CarpioAbi W[employer]E RECY[employer]ER.[employer] Work Phone: [facility] 08-03-2024 14:44-0400 Respiratory rate 12 /min Xuan Abi WASTE RECYCLER.[employer] Work Phone: [facility] 08-03-2024 14:44-0400 SaO2% (BldA) [Mass fraction] 99 % Xuan Abi [employer]E RECY[employer]ER.[employer] Work Phone: [facility] 08-03-2024 14:44-0400 Systolic blood pressure 140 mm[Hg] Xuan Abi [employer] RECY[employer]ER.[employer] Work Phone: [facility] 07-02-2024 16:06-0400 Body mass index (BMI) [Ratio] 20.25 kg/m2 Femi Baeza MD Work Phone: [facility] 07-02-2024 16:06-0400 Body weight 56.9 kg Femi Baeza MD Work Phone: [facility] 07-02-2024 16:06-0400 Diastolic blood pressure 64 mm[Hg] Femi Baeza MD Work Phone: [facility] 07-02-2024 16:06-0400 Heart rate 60 /min Femi Baeza MD Work Phone: [facility] 07-02-2024 16:06-0400 Respiratory rate 12 /min Femi Baeza MD Work Phone: [facility] 07-02-2024 16:06-0400 Systolic blood pressure 130 mm[Hg] Femi Baeza MD Work Phone: [facility] 06-12-2024 13:57-0400 Body temperature 97.3 [degF] Dr. Femi Baeza MD Work Phone: 1(666)756-103144 [place] [address] 06-12-2024 13:57-0400 Diastolic blood pressure 60 mm[Hg] Dr. Femi Baeza MD Work Phone: 9(340)139-734344 [place] [address] 06-12-2024 13:57-0400 Heart rate 62 /min Dr. Femi Baeza MD Work Phone: 1(430)125-573644 [place] [address] 06-12-2024 13:57-0400 Respiratory rate 16 /min Dr. Femi Baeza MD Work Phone: 9(667)994-907844 [place] [address] 06-12-2024 13:57-0400 SaO2% (BldA) [Mass fraction] 100 % Dr. Femi Baeza MD Work Phone: 1(745)836-170144 [place] [address] 06-12-2024 13:57-0400 Systolic blood pressure 121 mm[Hg] Dr. Femi Baeza MD Work Phone: 5(650)133-688844 [place] [address] 06-12-2024 11:59-0400 Body height 162.[address] Femi Baeza MD Work Phone: 3(115)448-127444 [place] [address] 06-12-2024 11:59-0400 Body mass index (BMI) [Ratio] 21 kg/m2 Dr. Femi Baeza MD Work Phone: 6(043)615-667244 [place] [address] 06-12-2024 11:59-0400 Body weight 55.[address] Femi Baeza MD Work Phone: 9(332)310-192297 [place] [address] 03-30-2024 13:10-0500 Body temperature 97.5 [degF] Dr. Femi Baeza MD Work Phone: 4(224)431-172897 [place] [address] 03-30-2024 13:10-0500 Diastolic blood pressure 59 mm[Hg] Dr. Femi Baeza MD Work Phone: 1(419)547-877397 [place] [address] 03-30-2024 13:10-0500 Heart rate 54 /min Dr. Femi Baeza MD Work Phone: 6(878)197-160597 [place] [address] 03-30-2024 13:10-0500 Respiratory rate 16 /min Dr. Femi Baeza MD Work Phone: 7(700)135-754297 [place] [address] 03-30-2024 13:10-0500 SaO2% (BldA) [Mass fraction] 98 % Dr. Femi Baeza MD Work Phone: 4(058)973-667597 [place] [address] 03-30-2024 13:10-0500 Systolic blood pressure 118 mm[Hg] Dr. Femi Baeza MD Work Phone: 6(081)031-598097 [place] [address] 03-30-2024 10:46-0500 Body height 162.[address] Femi Baeza MD Work Phone: 0(141)400-125397 [place] [address] 03-30-2024 10:46-0500 Body mass index (BMI) [Ratio] 22.3 kg/m2 Dr. Femi Baeza MD Work Phone: 6(596)404-363497 [place] [address] 03-30-2024 10:46-0500 Body weight [address] Femi Baeza MD Work Phone: 5(635)080-993697 [place] [address] 03-20-2024 11:00-0500 Body temperature 97.6 [degF] Dr. Femi Baeza MD Work Phone: 3(500)047-426397 [place] [address] 03-20-2024 11:00-0500 Diastolic blood pressure 98 mm[Hg] Dr. Femi Baeza MD Work Phone: 8(141)497-824697 [place] [address] 03-20-2024 11:00-0500 Heart rate 84 /min Dr. Femi Baeza MD Work Phone: [facility] 03-20-2024 11:00-0500 Respiratory rate 18 /min Dr. Femi Baeza MD Work Phone: [facility] 03-20-2024 11:00-0500 SaO2% (BldA) [Mass fraction] 98 % Dr. Femi Baeza MD Work Phone: [facility] 03-20-2024 11:00-0500 Systolic blood pressure 154 mm[Hg] Dr. Femi Baeza MD Work Phone: 0(132)783-681197 [place] [address] 03-20-2024 09:54-0500 Body mass index (BMI) [Ratio] 23.8 kg/m2 Dr. Femi Baeza MD Work Phone: 8(576)289-659297 [place] [address] 03-20-2024 09:54-0500 Body weight 62.[address] Femi Baeza MD Work Phone: [facility] 03-18-2024 13:51-0500 Diastolic blood pressure 70 mm[Hg] Femi Baeza MD Work Phone: [facility] 03-18-2024 13:51-0500 Heart rate 65 /min Femi Baeza MD Work Phone: [facility] 03-18-2024 13:51-0500 Systolic blood pressure 131 mm[Hg] Femi Baeza MD Work Phone: [facility] 03-18-2024 13:40-0500 Body height 167.6 cm Femi Baeza MD Work Phone: [facility] 03-18-2024 13:40-0500 Body mass index (BMI) [Ratio] 22.24 kg/m2 Femi Baeza MD Work Phone: [facility] 03-18-2024 13:40-0500 Body temperature 98.2 [degF] Femi Baeza MD Work Phone: [facility] 03-18-2024 13:40-0500 Body weight 62.5 kg Femi Baeza MD Work Phone: [facility] 03-16-2024 20:47-0500 Body mass index (BMI) [Ratio] 23.7 kg/m2 Dr. Femi aBeza MD Work Phone: [facility] 03-16-2024 20:47-0500 Body temperature 98.7 [degF] Dr. Femi Baeza MD Work Phone: 5(084)550-753444 [place] [address] 03-16-2024 20:47-0500 Body weight 62.[address] Femi Baeza MD Work Phone: 8(181)906-290144 [place] [address] 03-16-2024 20:47-0500 Diastolic blood pressure 91 mm[Hg] Dr. Femi Baeza MD Work Phone: 1(844)253-579797 [place] [address] 03-16-2024 20:47-0500 Heart rate 78 /min Dr. Femi Baeza MD Work Phone: 3(440)632-643544 [place] [address] 03-16-2024 20:47-0500 Respiratory rate 16 /min Dr. Femi Baeza MD Work Phone: 0(693)556-914844 [place] [address] 03-16-2024 20:47-0500 SaO2% (BldA) [Mass fraction] 98 % Dr. Femi Baeza MD Work Phone: 7(116)016-105544 [place] [address] 03-16-2024 20:47-0500 Systolic blood pressure 170 mm[Hg] Dr. Femi Baeza MD Work Phone: [facility] 03-02-2024 16:25-0500 Body mass index (BMI) [Ratio] 23.39 kg/m2 Femi Baeza MD Work Phone: [facility] 03-02-2024 16:25-0500 Body temperature 98.6 [degF] Femi Baeza MD Work Phone: [facility] 03-02-2024 16:25-0500 Body weight 61.8 kg Femi Baeza MD Work Phone: [facility] 03-02-2024 16:25-0500 Diastolic blood pressure 70 mm[Hg] Femi Baeza MD Work Phone: [facility] 03-02-2024 16:25-0500 Heart rate 76 /min Femi Baeza MD Work Phone: [facility] 03-02-2024 16:25-0500 Respiratory rate 16 /min Femi Baeza MD Work Phone: [facility] 03-02-2024 16:25-0500 Systolic blood pressure 142 mm[Hg] Femi Baeza MD Work Phone: [facility] 02-21-2024 13:51-0500 Body temperature 97.3 [degF] Dr. Femi Baeza MD Work Phone: [facility] 02-21-2024 13:51-0500 Diastolic blood pressure 78 mm[Hg] Dr. Femi Baeza MD Work Phone: [facility] 02-21-2024 13:51-0500 Heart rate 93 /min Dr. Femi Baeza MD Work Phone: 9(279)361-755144 [place] [address] 02-21-2024 13:51-0500 Respiratory rate 16 /min Dr. Femi Baeza MD Work Phone: [facility] 02-21-2024 13:51-0500 SaO2% (BldA) [Mass fraction] 98 % Dr. Femi Baeza MD Work Phone: [facility] 02-21-2024 13:51-0500 Systolic blood pressure 148 mm[Hg] Dr. Femi Baeza MD Work Phone: 9(427)308-942044 [place] [address] 02-21-2024 10:22-0500 Body mass index (BMI) [Ratio] 24.6 kg/m2 Dr. Femi Baeza MD Work Phone: [facility] 02-21-2024 10:22-0500 Body weight 65.[address] Femi Baeza MD Work Phone: 8(460)779-644044 [place] [address] 02-21-2024 01:24-0500 Body temperature 98.1 [degF] Dr. Femi Baeza MD Work Phone: 8(412)173-108997 [place] [address] 02-21-2024 01:24-0500 Diastolic blood pressure 65 mm[Hg] Dr. Femi Baeza MD Work Phone: 4(493)013-267697 [place] [address] 02-21-2024 01:24-0500 Heart rate 81 /min Dr. Femi Baeza MD Work Phone: 7(836)145-323697 [place] [address] 02-21-2024 01:24-0500 Respiratory rate 18 /min Dr. Femi Baeza MD Work Phone: 9(571)748-406897 [place] [address] 02-21-2024 01:24-0500 SaO2% (BldA) [Mass fraction] 96 % Dr. Femi Baeza MD Work Phone: 7(438)913-823397 [place] [address] 02-21-2024 01:24-0500 Systolic blood pressure 124 mm[Hg] Dr. Femi Baeza MD Work Phone: 3(895)648-811097 [place] [address] 02-20-2024 23:48-0500 Body mass index (BMI) [Ratio] 24.2 kg/m2 Dr. Femi Baeza MD Work Phone: 0(063)978-653597 [place] [address] 02-20-2024 23:48-0500 Body weight [address] Femi Baeza MD Work Phone: 5(622)307-704197 [place] [address] 02-04-2024 11:59-0500 Body mass index (BMI) [Ratio] 23.65 kg/m2 Femi Baeza MD Work Phone: [facility] 02-04-2024 11:59-0500 Body temperature 97.7 [degF] Femi Baeza MD Work Phone: [facility] 02-04-2024 11:59-0500 Body weight 62.5 kg Femi Baeza MD Work Phone: [facility] 02-04-2024 11:59-0500 Diastolic blood pressure 86 mm[Hg] Femi Baeza MD Work Phone: [facility] 02-04-2024 11:59-0500 Heart rate 76 /min Femi Baeza MD Work Phone: [facility] 02-04-2024 11:59-0500 Respiratory rate 16 /min Femi Baeza MD Work Phone: [facility] 02-04-2024 11:59-0500 Systolic blood pressure 148 mm[Hg] Femi Baeza MD Work Phone: [facility] 01-22-2024 14:05-0500 Body temperature 98.2 [degF] Dr. Femi Baeza MD Work Phone: [facility] 01-22-2024 14:05-0500 Diastolic blood pressure 70 mm[Hg] Dr. Femi Baeza MD Work Phone: [facility] 01-22-2024 14:05-0500 Heart rate 82 /min Dr. Femi Baeza MD Work Phone: [facility] 01-22-2024 14:05-0500 Respiratory rate 14 /min Dr. Femi Baeza MD Work Phone: [facility] 01-22-2024 14:05-0500 SaO2% (BldA) [Mass fraction] 96 % Dr. Femi Baeza MD Work Phone: [facility] 01-22-2024 14:05-0500 Systolic blood pressure 120 mm[Hg] Dr. Femi Baeza MD Work Phone: [facility] 01-17-2024 13:51-0500 Body height 162.6 cm Femi Baeza MD Work Phone: [facility] 01-17-2024 13:51-0500 Body mass index (BMI) [Ratio] 24.22 kg/m2 Femi Baeza MD Work Phone: [facility] 01-17-2024 13:51-0500 Body temperature 98.1 [degF] Femi Baeza MD Work Phone: [facility] 01-17-2024 13:51-0500 Body weight 64 kg Femi Baeza MD Work Phone: [facility] 01-17-2024 13:51-0500 Diastolic blood pressure 82 mm[Hg] Femi Baeza MD Work Phone: [facility] 01-17-2024 13:51-0500 Heart rate 106 /min Femi Baeza MD Work Phone: [facility] 01-17-2024 13:51-0500 SaO2% (BldA) [Mass fraction] 98 % Femi Baeza MD Work Phone: [facility] 01-17-2024 13:51-0500 Systolic blood pressure 142 mm[Hg] Femi Baeza MD Work Phone: [facility] 11-08-2023 13:09-0400 Body mass index (BMI) [Ratio] 23.84 kg/m2 Xuan Abi WASTE RECYCLER.[employer] TECH[employer] Work Phone: [facility] 11-08-2023 13:09-0400 Body weight 63 kg Xuan Abi WASTE RECYCLER.[employer]AR[employer] TECHNICAL Work Phone: [facility] 11-08-2023 13:09-0400 Diastolic blood pressure 74 mm[Hg] Xuan Abi WASTE RECYCLER.[employer] TECHN[employer] Work Phone: [facility] 11-08-2023 13:09-0400 Heart rate 82 /min Xuan Abi WASTE RECYCLER.E[employer]AR[employer] TECHNICAL Work Phone: [facility] 11-08-2023 13:09-0400 Respiratory rate 16 /min Xuan Abi WASTE RECYCLER.E[employer]AR[employer] TECHNICAL Work Phone: [facility] 11-08-2023 13:09-0400 Systolic blood pressure 157 mm[Hg] Xuan Abi WASTE RECYCLER.[employer]AR[employer] TECHN[employer] Work Phone: [facility] 09-23-2023 14:14-0400 Body mass index (BMI) [Ratio] 24.2 kg/m2 Uxan Abi WASTE RECYCLER.ELECT[employer]ARF[employer] TECHNICAL Work Phone: [facility] 09-23-2023 14:14-0400 Body weight 63.96 kg Xuan Abi WASTE RECYCLER.E[employer] TECHN[employer] Work Phone: [facility] 09-23-2023 14:14-0400 Diastolic blood pressure 82 mm[Hg] Xuan Abi WASTE RECYCLER.[employer] TECHN[employer] Work Phone: [facility] 09-23-2023 14:14-0400 Heart rate 77 /min Xuan Abi WASTE RECYCLER.E[employer]AR[employer] TECHNICAL Work Phone: [facility] 09-23-2023 14:14-0400 Respiratory rate 14 /min Xuan Abi WASTE RECYCLER.[employer]AR[employer] TECHNICAL Work Phone: [facility] 09-23-2023 14:14-0400 SaO2% (BldA) [Mass fraction] 97 % Xuan Abi WASTE RECYCLER.[employer]AR[employer] TECHNICAL Work Phone: [facility] 09-23-2023 14:14-0400 Systolic blood pressure 152 mm[Hg] Xuan Abi WASTE RECYCLER.[employer]AR[employer] TECHNICAL Work Phone: [facility] 09-11-2023 14:37-0400 Body mass index (BMI) [Ratio] 24.03 kg/m2 Xuan Abi WASTE RECYCLER.E[employer]AR[employer] TECHNICAL Work Phone: [facility] 09-11-2023 14:37-0400 Body weight 63.5 kg Xuan Abi WASTE RECYCLER.E[employer]AR[employer] TECHNICAL Work Phone: [facility] 09-11-2023 14:37-0400 Diastolic blood pressure 96 mm[Hg] Xuan Abi WASTE RECYCLER.E[employer]AR[employer] TECHNICAL Work Phone: [facility] 09-11-2023 14:37-0400 Heart rate 72 /min Xuan Abi WASTE RECYCLER.ELECTRONIC WARF[employer] TECHNICAL Work Phone: [facility] 09-11-2023 14:37-0400 Respiratory rate 16 /min Xuan Abi WASTE RECYCLER.E[employer]IC [employer]ARF[employer] TECHNICAL Work Phone: [facility] 09-11-2023 14:37-0400 Systolic blood pressure 162 mm[Hg] Xuan Abi WASTE RECYCLER.E[employer]AR[employer] TECHNICAL Work Phone: [facility] 05-08-2023 15:24-0500 Diastolic blood pressure 70 mm[Hg] Xuan Abi WASTE RECYCLER.E[employer]ARF[employer] TECHNICAL Work Phone: [facility] 05-08-2023 15:24-0500 Systolic blood pressure 126 mm[Hg] Xuan Abi WASTE RECYCLER.E[employer]AR[employer] TECHN[employer] Work Phone: [facility] 05-08-2023 15:06-0500 Body temperature 96.01 [degF] Xuan Abi WASTE RECYCLER.E[employer]ARF[employer] TECHNICAL Work Phone: [facility] 05-08-2023 15:06-0500 Body weight 63.96 kg Xuan Abi WASTE RECYCLER.E[employer]AR[employer] TECHNICAL Work Phone: [facility] 05-08-2023 15:06-0500 Heart rate 63 /min Xuan Abi WASTE RECYCLER.E[employer]ARF[employer] TECHNICAL Work Phone: [facility] 05-08-2023 15:06-0500 Respiratory rate 16 /min Xuan Abi WASTE RECYCLER.E[employer] TECHNICAL Work Phone: [facility] 05-08-2023 15:06-0500 SaO2% (BldA) [Mass fraction] 97 % Xuan Abi WASTE RECY[employer]ER.[employer] TECHN[employer] Work Phone: [facility] 11-02-2022 13:00-0400 Body height 162.[address] Femi Baeza Work Phone: [facility] 11-02-2022 13:00-0400 Body mass index (BMI) [Ratio] 24.3 kg/m2 Dr. Femi Baeza Work Phone: [facility] 11-02-2022 13:00-0400 Body temperature 97.2 [degF] Dr. Femi Baeza Work Phone: [facility] 11-02-2022 13:00-0400 Body weight 64.[address] Femi Baeza Work Phone: [facility] 11-02-2022 13:00-0400 Diastolic blood pressure 67 mm[Hg] Dr. Femi Baeza Work Phone: [facility] 11-02-2022 13:00-0400 Heart rate 71 /min Dr. Femi Baeza Work Phone: [facility] 11-02-2022 13:00-0400 Respiratory rate 16 /min Dr. Femi Baeza Work Phone: [facility] 11-02-2022 13:00-0400 SaO2% (BldA) [Mass fraction] 95 % Dr. Femi Baeza Work Phone: [facility] 11-02-2022 13:00-0400 Systolic blood pressure 144 mm[Hg] Dr. Femi Baeza Work Phone: [facility] 10-24-2022 15:50-0400 Diastolic blood pressure 68 mm[Hg] Xuan Older WASTE RECYCLER.ELECT[employer]ARF[employer] TECHNICAL Work Phone: [facility] 10-24-2022 15:50-0400 Systolic blood pressure 126 mm[Hg] Xuan Older WASTE RECYCLER.E[employer]RONIC [employer]ARF[employer] TECHNICAL Work Phone: [facility] 10-24-2022 15:36-0400 Body weight 64.41 kg Xuan Older WASTE RECYCLER.ELECTRONIC WARF[employer] TECHNICAL Work Phone: [facility] 10-24-2022 15:36-0400 Heart rate 61 /min Xuan Older WASTE RECYCLER.ELECTRON[employer] WARF[employer] TECHNICAL Work Phone: [facility] 10-24-2022 15:36-0400 Respiratory rate 18 /min Xuan Older WASTE RECYCLER.E[employer]AR[employer] TECHNICAL Work Phone: [facility] 08-23-2022 14:12-0400 Body mass index (BMI) [Ratio] 25 kg/m2 Dr. Femi Baeza Work Phone: [facility] 08-23-2022 14:12-0400 Body weight 65.[address] Femi Baeza Work Phone: [facility] 08-23-2022 14:12-0400 Diastolic blood pressure 79 mm[Hg] Dr. Femi Baeza Work Phone: [facility] 08-23-2022 14:12-0400 Heart rate 58 /min Dr. Femi Baeza Work Phone: [facility] 08-23-2022 14:12-0400 Respiratory rate 18 /min Dr. Femi Baeza Work Phone: [facility] 08-23-2022 14:12-0400 SaO2% (BldA) [Mass fraction] 95 % Dr. Femi Baeza Work Phone: [facility] 08-23-2022 14:12-0400 Systolic blood pressure 150 mm[Hg] Dr. Femi Baeza Work Phone: [facility] 05-23-2022 21:13-0400 Diastolic blood pressure 76 mm[Hg] [facility] 05-23-2022 21:13-0400 Heart rate 79 /min [facility] 05-23-2022 21:13-0400 Respiratory rate 18 /min [facility] 05-23-2022 21:13-0400 Systolic blood pressure 138 mm[Hg] [facility] 05-23-2022 18:30-0400 SaO2% (BldA) [Mass fraction] 95 % [facility] 05-23-2022 14:05-0400 Body height 162.56 cm [facility] 05-23-2022 14:05-0400 Body mass index (BMI) [Ratio] 55.2 kg/m2 [facility] 05-23-2022 14:05-0400 Body temperature 98 [degF] [facility] 05-23-2022 14:05-0400 Body weight 146 kg [facility] 01-22-2022 13:47-0500 Diastolic blood pressure 80 mm[Hg] Xuan Nichole APRN.CNP Work Phone: [facility] 01-22-2022 13:47-0500 Systolic blood pressure 138 mm[Hg] Xuan Older WASTE RECYCLER.ELECTRONIC WARFARE TECHNICAL Work Phone: [facility] 01-22-2022 13:20-0500 Body weight 64.86 kg Xuan Older WASTE RECYCLER.ELECTRON[employer] WARF[employer] TECHNICAL Work Phone: [facility] 01-22-2022 13:20-0500 Heart rate 77 /min Xuan Older WASTE RECYCLER.ELECTRONIC WARFARE TECHNICAL Work Phone: [facility] 01-22-2022 13:20-0500 Respiratory rate 18 /min Xuan Older WASTE RECYCLER.E[employer]ARF[employer] TECHNICAL Work Phone: [facility] 11-18-2021 19:32-0400 Diastolic blood pressure 77 mm[Hg] [facility] Work Phone: 11-18-2021 19:32-0400 Heart rate 65 /min [facility] Work Phone: 11-18-2021 19:32-0400 Respiratory rate 17 /min [facility] Work Phone: 11-18-2021 19:32-0400 SaO2% (BldA) [Mass fraction] 95 % [facility] Work Phone: 11-18-2021 19:32-0400 Systolic blood pressure 145 mm[Hg] [facility] Work Phone: 11-18-2021 16:56-0400 Body temperature 99.1 [degF] [facility] Work Phone: 11-18-2021 15:53-0400 Body height 162.56 cm [facility] Work Phone: 11-18-2021 15:53-0400 Body mass index (BMI) [Ratio] 24.7 kg/m2 [facility] Work Phone: 11-18-2021 15:53-0400 Body weight 65.31 kg [facility] Work Phone: 06-14-2021 15:20-0400 Diastolic blood pressure 60 mm[Hg] Femi Baeza MD Work Phone: [facility] 06-14-2021 15:20-0400 Heart rate 54 /min Femi Baeza MD Work Phone: [facility] 06-14-2021 15:20-0400 Systolic blood pressure 134 mm[Hg] Femi Baeza MD Work Phone: [facility] 06-14-2021 15:02-0400 Body temperature 98.1 [degF] Femi Baeza MD Work Phone: [facility] 06-14-2021 15:02-0400 Body weight 64.86 kg Femi Baeza MD Work Phone: [facility] 06-14-2021 15:02-0400 Respiratory rate 18 /min Femi Baeza MD Work Phone: [facility] 06-01-2021 19:16-0400 Body temperature 98.4 [degF] [facility] Work Phone: 06-01-2021 19:16-0400 Diastolic blood pressure 78 mm[Hg] [facility] Work Phone: 06-01-2021 19:16-0400 Heart rate 65 /min [facility] Work Phone: 06-01-2021 19:16-0400 Respiratory rate 16 /min [facility] Work Phone: 06-01-2021 19:16-0400 SaO2% (BldA) [Mass fraction] 98 % [facility] Work Phone: 06-01-2021 19:16-0400 Systolic blood pressure 136 mm[Hg] [facility] Work Phone: 06-01-2021 15:39-0400 Body height 162.56 cm [facility] Work Phone: 06-01-2021 15:39-0400 Body mass index (BMI) [Ratio] 23.8 kg/m2 [facility] Work Phone: 06-01-2021 15:39-0400 Body weight 63 kg [facility] Work Phone: Encounters Encounter Date Encounter Type Care Provider Facility Start: 01-22-2025 ambulatory Femi Chao ty:[facility] Start: 12-09-2024 Non-patient / Non-visit Dr. Kelle johnson MD -[facility] Work Phone: Start: 12-08-2024 Non-patient / Non-visit Dr. Kelle johnson MD -[facility] Work Phone: Start: 12-07-2024 ambulatory Ranjeet Romero ty:[facility] Start: 12-07-2024 End: 12-09-2024 Evaluation and management of inpatient Dr. Ranjeet Aldana DO -[facility] Work Phone: Start: 11-09-2024 End: 11-09-[address] Derek Rae MD -[facility] Start: 11-09-2024 End: 11-09-[address] Femi Baeza MD Work Phone: -[facility] Start: 10-28-2024 End: 10-28-2024 Office outpatient visit 25 minutes Femi Baeza MD Work Phone: [facility] Comment on above: Dysuria (Primary Dx) ; Lower leg edema; Essential hypertension; Acute pain of right shoulder; Primary osteoarthritis of right shoulder; Chronic idiopathic constipation Start: 10-28-2024 End: 10-28-2024 ambulatory FEMI BAEZA Facility:[facility] Start: 10-27-2024 End: 10-27-2024 ambulatory FEMI BAEZA Facility:[facility] Start: 10-26-2024 End: 10-26-2024 Telephone encounter Femi Baeza MD Work Phone: [facility] Comment on above: Orders Start: 10-25-2024 End: 10-26-2024 ambulatory Femi Baeza MD Work Phone: [facility] Comment on above: Losartan 50mg Refill Request Start: 10-12-2024 End: 10-12-[address] Femi Baeza MD Work Phone: -Physical Therapy Start: 10-12-2024 End: 10-12-2024 Discharged Recurring Xuan Older TRAVEL TICKETING REVIEWER-C -Physical Therapy Work Phone: Start: 09-23-2024 End: 09-23-2024 Patient encounter procedure Zonia MONTEMAYOR -[facility] Work Phone: Start: 09-23-2024 End: 09-23-[address] Femi Baeza MD Work Phone: -[facility] Start: 09-21-2024 Registered Recurring Xuan Older TRAVEL TICKETING REVIEWER-C -Physical Therapy Work Phone: Start: 09-15-2024 End: 09-15-2024 Refill Femi Baeza MD Work Phone: [facility] Comment on above: Refill Request Start: 09-09-2024 End: 09-09-2024 Follow-up encounter Xuan Brandon APRN.ELECTRONIC WARFARE TECHNICAL Work Phone: [facility] Start: 09-08-2024 End: 09-08-2024 Subsequent hospital visit by physician [facility] Work Phone: Radiology Comment on above: Acute pain of both k nees [M25.561, M25.562] Start: 09-08-2024 End: 09-08-2024 Office outpatient visit 25 minutes Xuan Brandon WASTE RECYCLER.ELECTRONIC WARFARE TECHNICAL Work Phone: [facility] Comment on above: Acute pain of both k nees (Primary Dx); Fall on same level from slipping, tripping or stumbling, initial encounter; Acute pain of right shoulder; Chronic neck pain; Age related osteoporosis, unspecified pathological fracture presence Start: 09-08-2024 End: 09-08-2024 ambulatory FEMI BAEZA Facility:[facility] Start: 08-03-2024 End: 08-03-2024 Office outpatient visit 15 minutes Xuan Brandon APRN.ELECTRONIC WARFARE TECHNICAL Work Phone: [facility] Comment on above: Acute non-recurrent maxillary sinusitis (Primary Dx); Neck pain Start: 08-03-2024 End: 08-03-2024 ambulatory FEMI BAEZA Facility:[facility] Start: 07-31-2024 End: 07-31-2024 ambulatory Nurse Intm/Famp Triage [facility] Work Phone: Nurse Phone Triage Comment on above: Headache; stiff neck Losartan Refill Refill Request Start: 07-15-2024 End: 07-15-2024 Patient encounter procedure Zonia MONTEMAYOR -[facility] Work Phone: Start: 07-15-2024 End: 07-15-[address] Femi Baeza MD Work Phone: [facility] Work Phone: Start: 07-02-2024 End: 07-02-2024 Office outpatient visit 15 minutes Femi Baeza MD Work Phone: [facility] Comment on above: Lower leg edema (Nevin brenna Dx); Essential hypertension; Chronic idiopathic constipation; Weight loss, non-intentional; Polyp of colon, unspecified part of colon, unspecified type Start: 07-02-2024 End: 07-02-2024 ambulatory FEMI BAEZA Facility:[facility] Start: 06-25-2024 ambulatory FEMI BAEZA Faci lity:[facility] Start: 06-25-2024 End: 06-25-2024 ambulatory FEMI BAEZA Facility:[facility] Start: 06-24-2024 End: 06-24-2024 Patient encounter procedure Nola Alfaro NP-Alfred -[facility] Work Phone: Start: 06-24-2024 End: 06-24-2024 ambulatory Nola Alfaro Facility:[facility] Start: 06-17-2024 End: 06-19-2024 Refill Xuan Brandon APRN.ELECT[employer]IC [employer]AR[employer]ARE TECHNICAL Work Phone: [facility] Comment on above: Refill Request Start: 06-12-2024 ambulatory Krzysztof Arroyo Facility :[facility] Start: 06-12-2024 Non-patient / Non-visit Krzysztof Gonzalez nd DO -[facility] Start: 06-12-2024 End: 06-12-2024 Admission to same day surgery center Krzysztof Arroyo DO -Endoscopy Work Phone: Start: 06-12-2024 End: 06-12-[address] Femi Baeza MD Work Phone: [facility] Work Phone: Start: 05-06-2024 End: 05-08-2024 Get Medical Advice Femi Baeza MD Work Phone: [facility] Comment on above: refill but my chart shows old prescription service Start: 04-30-2024 End: 04-30-[address] Femi Baeza MD Work Phone: [facility] Work Phone: Start: 04-30-2024 End: 04-30-2024 [facility] Start: 04-30-2024 End: 04-30-2024 ambulatory Zonia Lawrence Facility:[facility] Start: 04-21-2024 End: 04-21-2024 Patient encounter procedure Zonia MONTEMAYOR -[facility] Work Phone: Start: 04-21-2024 End: 04-21-2024 ambulatory Zonia Lawrence Facility:[facility] Start: 03-30-2024 Non-patient / Non-visit Krzysztof Gonzalez nd DO -[facility] Start: 03-30-2024 End: 03-30-2024 Admission to same day surgery center Krzysztof Cruz DO -Endoscopy Work Phone: Start: 03-30-2024 End: 03-30-2024 ambulatory Krzysztof Cruz Facility:[facility] Start: 03-25-2024 End: 03-25-2024 Patient encounter procedure Zonia MONTEMAYOR [facility] Work Phone: Start: 03-25-2024 End: 03-25-2024 ambulatory Zonia Lawrence Facility:[facility] Start: 03-20-2024 End: 03-20-2024 Emergency department patient visit Dr. Librado Vasquez MD -Emergency Department Work Phone: Start: 03-18-2024 End: 03-18-2024 ambulatory FEMI BAEZA Facility:[facility] Start: 03-18-2024 End: 03-18-2024 Patient encounter procedure Femi Baeza MD Work Phone: [facility] Comment on above: Medicare annual well ness visit, subsequent (Primary Dx); Anxiety; Essential hypertension; Screening for depression; Radiculopathy, lumbar region; Pain in right hip; History of renal cell carcinoma; Osteoporosis, unspecified osteoporosis type, unspecified pathological fracture presence Start: 03-16-2024 End: 03-16-2024 Emergency department patient visit Dr. Librado Vasquez MD -Emergency Department Work Phone: Start: 03-02-2024 End: 03-02-2024 ambulatory FEMI BAEZA Facility:[facility] Start: 03-02-2024 End: 03-02-2024 Office outpatient visit 25 minutes Femi Baeza MD Work Phone: [facility] [place] Comment on above: Gastrointestinal hem orrhage, unspecified gastrointestinal hemorrhage type (Primary Dx); Constipation, unspecified constipation type; Mass of right kidney Start: 02-21-2024 End: 02-21-2024 Emergency department patient visit Dr. Juan Shaffer DO -Emergency Department Work Phone: Start: 02-20-2024 End: 02-21-2024 Emergency department patient visit Dr. Reinier Aviles MD -Emergency Department Work Phone: Start: 02-17-2024 End: 02-17-2024 ambulatory Femi Baeza Facility:[facility] Start: 02-17-2024 End: 02-17-[address] César Johnson MD -Physical Therapy Work Phone: Start: 02-04-2024 End: 02-04-2024 ambulatory FEMI BAEZA Facility:[facility] Start: 02-04-2024 End: 02-04-2024 Office outpatient visit 25 minutes Femi Baeza MD Work Phone: [facility] [place] Comment on above: Rhinosinusitis (Prim heather Dx); Impacted cerumen of both ears; Essential hypertension Start: 01-22-2024 End: 01-22-2024 Patient encounter procedure Tyrese Baker PA [facility] Work Phone: Start: 01-22-2024 End: 01-22-2024 ambulatory Femi Baeza Facility:[facility] Start: 01-17-2024 End: 01-17-2024 Office outpatient visit 25 minutes Femi Baeza MD Work Phone: [facility] [place] Comment on above: Radiculopathy, lumba r region (Primary Dx); Pain in right hip; Chronic idiopathic constipation Start: 01-17-2024 End: 01-17-2024 ambulatory FEMI BAEZA Facility:[facility] Start: 01-16-2024 End: 01-16-2024 ambulatory Candace Caceres RN Work Phone: [employer] Start: 01-16-2024 End: 01-16-2024 Patient encounter procedure Candace Caceres RN Work Phone: [employer] Comment on above: TICO HICKMAN RN ( ED Utilization Review per request of payor/) Start: 01-13-2024 End: 01-13-2024 Emergency department patient visit Femi Baeza Facility:[facility] Start: 12-08-2023 End: 12-09-2023 Refill Xuan Brandon APRN.CNP Work Phone: [facility] [place] Comment on above: Refill Request Start: 11-13-2023 End: 11-13-2023 Telephone encounter Femi Baeza MD Work Phone: [facility] [place] Start: 11-11-2023 End: 11-11-2023 ambulatory FEMI BAEZA Facility:[facility] Start: 11-11-2023 End: 11-11-2023 Subsequent hospital visit by physician Bone Density [facility] Work Phone: Radiology Comment on above: Osteoporosis, unspec ified osteoporosis type, unspecified pathological fracture presence [M81.0] Start: 11-08-2023 End: 11-08-2023 ambulatory ASHLEY ARYAN Facility:[facility] Start: 11-08-2023 End: 11-08-2023 Patient encounter procedure Xuan Brandon APRN.ELECTRONIC WARFARE TECHNICAL Work Phone: [facility] [place] Comment on above: Dysuria (Primary Dx) ; Urinary frequency Start: 09-23-2023 End: 09-23-2023 Patient encounter procedure Xuan Brandon APRN.ELECTRONIC WARFARE TECHNICAL Work Phone: [facility] [place] Comment on above: Skin lesion of back (Primary Dx); Changing skin lesion Start: 09-11-2023 End: 09-11-2023 Patient encounter procedure Xuan Brandon APRN.ELECTRONIC WARFARE TECHNICAL Work Phone: [facility] [place] Comment on above: Essential hypertensi on (Primary Dx); Urge incontinence; Osteoporosis, unspecified osteoporosis type, unspecified pathological fracture presence; Encounter for lipid screening for cardiovascular disease Start: 09-05-2023 Refill Femi white MD Work Phone: [facility] [place] Comment on above: Refill Request Start: 07-08-2023 Refill Xuan choe APRN.ELECTRONIC WARFARE TECHNICAL Work Phone: [facility] [place] Comment on above: Refill Request Start: 06-07-2023 Refill Xuan choe APRN.ELECTRONIC WARFARE TECHNICAL Work Phone: [facility] [place] Comment on above: Refill Request Start: 05-08-2023 End: 05-08-2023 Patient encounter procedure Xuan Brandon APRN.ELECTRONIC WARFARE TECHNICAL Work Phone: [facility] [place] Comment on above: Essential hypertensi on (Primary Dx); Dysuria Start: 04-08-2023 ambulatory Xuan M Hershber дмитрий WASTE RECYCLER.ELECTRONIC WARFARE TECHNICAL Work Phone: [facility] [place] Comment on above: blood test Start: 02-01-2023 ambulatory Rebecca Zaira López MA [facility] Comment on above: Population Health Na vigation Outreach ([employer] Care Gaps ) Start: 12-18-2022 Telephone encounter Femi barrett MD Work Phone: [facility] [place] Comment on above: Covid + on home test Start: 12-12-2022 End: 12-12-[address] Femi Baeza Work Phone: [facility] Work Phone: Start: 12-12-2022 End: 12-12-[address] Femi Baeza Work Phone: [facility] Work Phone: Start: 12-08-2022 Refill Xuan Older WASTE RECYCLER .ELECTRONIC WARFARE TECHNICAL Work Phone: [facility] [place] Comment on above: Refill Request Start: 11-20-2022 Telephone encounter Femi barrett MD Work Phone: Internal [facility] Comment on above: requesting informati on on testing done (Bone Density/) Start: 11-16-2022 Refill Xuan Older WASTE RECYCLER .ELECTRONIC WARFARE TECHNICAL Work Phone: Internal [facility] Comment on above: Refill Request Start: 11-02-2022 End: 11-02-[address] Femi Baeza Work Phone: [facility] Work Phone: Start: 11-02-2022 End: 11-02-[address] Femi Baeza Work Phone: [facility]-Medical Out Work Phone: Start: 10-29-2022 Telephone encounter Femi barrett MD Work Phone: [facility] [place] Comment on above: Results Start: 10-24-2022 End: 10-24-2022 Patient encounter procedure Xuan Older WASTE RECYCLER.ELECTRONIC WARFARE TECHNICAL Work Phone: [facility] [place] Comment on above: Urinary tract infect ion without hematuria, site unspecified (Primary Dx) Start: 10-23-2022 Telephone encounter Xuan Older WASTE RECYCLER.ELECTRONIC WARFARE TECHNICAL Work Phone: [facility] [place] Start: 09-24-2022 ambulatory Berta Jauregui KIKA [facility] Comment on above: Population Health Na vigation Outreach ([employer] care gaps) Start: 08-23-2022 End: 08-23-[address] Femi Baeza Work Phone: [facility] Endocrinology Work Phone: Start: 07-28-2022 ambulatory Femi white MD Work Phone: [facility] [place] Start: 07-28-2022 Patient encounter procedure Femi Baeza MD Work Phone: [facility] [place] Comment on above: past appointment Start: 07-10-2022 ambulatory Femi white MD Work Phone: [facility] [place] Comment on above: blood work Start: 06-09-2022 Refill Femi white MD Work Phone: [facility] [place] Comment on above: Refill Request Start: 05-24-2022 ambulatory Femi white MD Work Phone: [facility] [place] Start: 05-24-2022 Emergency department patient visit Femi Baeza MD Work Phone: [facility] [place] Comment on above: my emergency room vi sit,05/23/2022 Start: 05-23-2022 End: 05-23-2022 Emergency department patient visit [facility]-Emergency Department Start: 05-15-2022 ambulatory Xuan Older WASTE RECYCLER .ELECTRONIC WARFARE TECHNICAL Work Phone: [facility] [place] Comment on above: lab results Start: 05-15-2022 E-mail encounter fro m caregiver Xuan Nichole APRN.ELECTRONIC WARFARE TECHNICAL Work Phone: [facility] [place] Start: 04-27-2022 ambulatory Xuan Older WASTE RECYCLER .ELECTRONIC WARFARE TECHNICAL Work Phone: [facility] [place] Comment on above: blood test Start: 03-10-2022 ambulatory Xuan Older WASTE RECYCLER .ELECTRONIC WARFARE TECHNICAL Work Phone: [facility] [place] Comment on above: new perscription Start: 2022 Telephone encounter Femi barrett MD Work Phone: [facility] [place] Comment on above: Endocrinology Referr al Start: 01-30-2022 Telephone encounter Xuan Older WASTE RECYCLER.ELECTRONIC WARFARE TECHNICAL Work Phone: [facility] [place] Comment on above: Referral Information Start: 01-29-2022 ambulatory Xuan Older WASTE RECYCLER .ELECTRONIC WARFARE TECHNICAL Work Phone: [facility] [place] Start: 01-29-2022 Patient encounter procedure Xuan Older WASTE RECYCLER.ELECTRONIC WARFARE TECHNICAL Work Phone: [facility] [place] Comment on above: Appointment Start: 01-22-2022 End: 01-22-2022 Patient encounter procedure Xuan Older WASTE RECYCLER.ELECTRONIC WARFARE TECHNICAL Work Phone: [facility] [place] Comment on above: Medicare annual well ness visit, subsequent (Primary Dx); Encounter for immunization; Hypercalcemia Start: 01-16-2022 ambulatory [facility] Comment on above: Population Health Na vigation Outreach ([employer] Medicare/) Start: 11-18-2021 End: 11-18-2021 Emergency department patient visit [facility]-Emergency Department Start: 11-13-2021 End: 11-13-2021 ambulatory [facility] Work Phone: Start: 11-13-2021 End: 11-13-2021 Patient encounter procedure [facility]-Laboratory, Specimen Start: 09-13-2021 Refill Femi white MD Work Phone: [facility] [place] Comment on above: Refill Request Start: 07-10-2021 Telephone encounter Femi barrett MD Work Phone: [facility] [place] Comment on above: Results (from [facility] CT ) Start: 07-07-2021 End: 07-07-2021 Patient encounter procedure [facility]-Cat Scan, [facility] Start: 06-22-2021 Telephone encounter Femi barrett MD Work Phone: [facility] [place] Comment on above: Fax [place]/Bladder US Start: 06-19-2021 End: 06-19-2021 Subsequent hospital visit by physician [facility] Work Phone: Radiology Comment on above: Lower abdominal pain [R10.30] Start: 06-14-2021 End: 06-14-2021 Patient encounter procedure Femi Baeza MD Work Phone: [facility] [place] Comment on above: Lower abdominal pain (Primary Dx); Essential hypertension; Dysuria; Other microscopic hematuria; Vitamin D deficiency; Hypercalcemia Start: 06-01-2021 End: 06-01-2021 Emergency department patient visit [facility]-Emergency Department Start: 10-31-2020 E-mail encounter fro m caregiver Aria Greenfield APRN.ELECTRONIC WARFARE TECHNICAL Work Phone: [facility] Start: 10-31-2020 Patient encounter procedure Aria Greenfield APRN.ELECTRONIC WARFARE TECHNICAL Work Phone: OB/Gynecology Comment on above: RE: Request an Appoi ntment Procedures Date Procedure Procedure Detail Performing Clinician Start: 12-09-[address] Femi Baeza MD Work Phone: Start: 12-09-2024 Serum inorganic phos phate measurement Dr. Femi Baeza MD Work Phone: Start: 12-08-2024 CT of upper limb wit hout contrast Dr. Femi Baeza MD Work Phone: Start: 12-07-2024 Ct abdomen & pelvis w/contrast material Dr. Femi Baeza MD Work Phone: Start: 12-07-2024 Urnls dip stick/tabl et reagent auto microscopy Dr. Femi Baeza MD Work Phone: Start: 12-07-[address] Femi Baeza MD Work Phone: Start: 12-07-2024 Osmolality measureme nt, serum Dr. Femi Baeza MD Work Phone: Start: 11-09-2024 Plain X-ray of shoulder Dr. Femi Baeza MD Work Phone: Start: 11-09-2024 X-ray of cervical spine Dr. Femi Baeza MD Work Phone: Start: 10-28-2024 Urnls dip stick/tabl et rgnt auto w/o microscopy Femi Baeza MD Work Phone: Start: 09-08-2024 End: 09-08-2024 Radex shoulder complete minimum 2 views Xuan Brandon WASTE RECYCLER.ELECTRONIC WARFARE TECHNICAL Work Phone: Start: 06-12-[address] Femi [...] DXA TRABECULAR FRANCISCO NE SCORE (TBS) Xuan Fernandez Abi WASTE RECYCLER.ELECTRONIC WARFARE TECHNICAL Work Phone: Start: 11-11-2023 Dxa bone density adrianne dy 1/> sites axial skel Xuan Fernandez Abi WASTE RECYCLER.ELECTRONIC WARFARE TECHNICAL Work Phone: Start: 11-08-2023 Urnls dip stick/tabl et rgnt auto w/o microscopy Xuan Fernandez Abi WASTE RECYCLER.ELECTRONIC WARFARE TECHNICAL Work Phone: Start: 05-08-2023 Urnls dip stick/tabl et rgnt auto w/o microscopy Xuan Fernandez Abi WASTE RECYCLER.ELECTRONIC WARFARE TECHNICAL Work Phone: Start: 12-12-2022 Computed tomography of abdomen and pelvis with intravenous contrast Dr. Femi Baeza Work Phone: Start: 10-24-2022 Urnls dip stick/tabl et rgnt auto w/[facility] RECYCL[facility].ELECTRONIC WARFARE TECHNICAL Work Phone: Start: 05-23-2022 MRI of lumbar [...] Femi Baeza MD Work Phone: Start: 10-08-2016 Giuseppe Chi MD Work Phone: Start: 03-19-2012 End: 05-28-2019 H/O: artificial joint Knee joint replacement by other means Xuan Branodn APRN.ELECTRONIC WARFARE TECHNICAL Work Phone: Urine culture Plan of Treatment Date Care Activity Detail Author Start: 10-28-2027 Diabetes Screening Diabetes Screening [facility] Start: 04-12-2026 Diabetes Screening Diabetes Screening [facility] Start: 11-10-2025 Screening for osteoporosis Bone Density Screening [facility] Start: 10-28-2025 Annual PCP Team Chronic Disease Visit Annual PCP Team Chronic Disease Visit [facility] Start: 10-17-2025 DIABETES SCREEN DIABETES SCREEN [facility] Start: 10-17-2025 Diabetes Screening Diabetes Screening [facility] Start: 09-08-2025 Annual PCP Team Chronic Disease Visit Annual PCP Team Chronic Disease Visit [facility] Start: 08-03-2025 Annual PCP Team Chronic Disease Visit Annual PCP Team Chronic Disease Visit [facility] Start: 07-02-2025 Annual PCP Team Chronic Disease Visit Annual PCP Team Chronic Disease Visit [facility] Start: 03-18-2025 Annual PCP Team Chronic Disease Visit Annual PCP Team Chronic Disease Visit [facility] Start: 03-18-2025 Depression Screening Depression Screening [facility] Start: 03-02-2025 Annual PCP Team Chronic Disease Visit Annual PCP Team Chronic Disease Visit [facility] Start: 02-03-2025 Annual PCP Team Chronic Disease Visit Annual PCP Team Chronic Disease Visit [facility] Start: 01-21-2025 End: 01-21-2025 Patient encounter procedure 01/21/2025 3:20 PM EST Office Visit [facility] [place] [address] [place] [address] Femi Baeza MD [address] [place] [address] 3 month follow-up [facility] [place] Comment on above: 3 month follow-up Start: 01-16-2025 Annual PCP Team Chronic Disease Visit Annual PCP Team Chronic Disease Visit [facility] Start: 01-15-2025 DIABETES SCREEN DIABETES SCREEN [facility] Start: 01-11-2025 End: 04-12-2025 Basic metabolic 2000 panel - Serum or Plasma BASIC METABOLIC PANEL Lab Routine Essential hypertension Expected: 01/11/2025, Expires: 04/12/2025 [facility] Work Phone: Comment on above: Expected: 01/11/2025, Expires: Start: 12-09-2024 Patient discharge [facility] Start: 12-07-2024 End: 12-08-2024 [facility] Start: 12-07-2024 Consultation [facility] Start: 12-07-2024 Application of intermittent pneumatic compression device [facility] Start: 12-07-2024 Following clinical pathway protocol [facility] Start: 12-07-2024 Aspiration precautions [facility] Start: 12-07-2024 Assessment of risk of venous thromboembolism [facility] Start: 12-07-2024 Insertion of catheter into peripheral vein [facility] Start: 12-07-2024 Measuring intake and output [facility] Start: 12-07-2024 Oxygen therapy [facility] Start: 12-07-2024 Providing care according to standard [facility] Start: 12-07-2024 Provision of activity privileges [facility] Start: 12-07-2024 Referral for physical therapy [facility] Start: 12-07-2024 Referral to occupational therapist [facility] Start: 12-07-2024 Referral to service [facility] Start: 12-07-2024 Osmolality measurement, serum [facility] Start: 12-07-2024 Osmolality of Urine [facility] Start: 12-07-2024 Verification routine [facility] Start: 12-07-2024 Admission procedure [facility] Start: 12-07-2024 Hospital admission, emergency, from emergency room, medical nature [facility] Start: 12-07-2024 Patient referral to dietitian [facility] Start: 12-07-2024 [facility] Start: 11-09-2024 Plain X-ray of shoulder Shoulder min 2 Views [facility] Start: 11-09-2024 X-ray of cervical spine Cerv Spine 2 or 3 Views [facility] Start: 11-09-2024 XR Cervical spine 2 or 3 Views [facility] Start: 11-09-2024 XR Shoulder GE 2 Views [facility] Start: 11-07-2024 Annual PCP Team Chronic Disease Visit Annual PCP Team Chronic Disease Visit [facility] Start: 11-02-2024 Influenza vaccination Influenza Vaccine (#1) [facility] Start: 10-28-2024 End: 10-28-2024 Patient encounter procedure 10/28/2024 4:00 PM EDT Office Visit [facility] [place] [address] [place] [address] Femi Baeza MD [address] [place] [address] 3 month follow-up [facility] [place] Comment on above: 3 month follow-up Start: 10-26-2024 End: 01-25-2025 25-hydroxyvitamin D3 [Mass/volume] in Serum or Plasma VITAMIN D 25 HYDROXY Lab Routine Vitamin D deficiency Expected: 10/26/2024, Expires: 01/25/2025 [facility] Comment on above: Expected: 10/26/2024, Expires: Start: 10-26-2024 End: 01-25-2025 Comprehensive metabolic 2000 panel - Serum or Plasma COMPREHENSIVE METABOLIC PANEL Lab Routine Essential hypertension Expected: 10/26/2024, Expires: 01/25/2025 [facility] Work Phone: Comment on above: Expected: 10/26/2024, Expires: Start: 10-26-2024 End: 01-25-2025 Lipid 1996 panel - Serum or Plasma LIPID PANEL, FASTING Lab Routine Essential hypertension Expected: 10/26/2024, Expires: 01/25/2025 [facility] Comment on above: Expected: 10/26/2024, Expires: Start: 10-05-2024 End: 10-05-2024 Patient encounter procedure 10/05/2024 3:00 PM EDT Office Visit [facility] [place] [address] [place] [address] Femi Baeza MD [address] [place] [address] 3 month follow up [facility] [place] Comment on above: 3 month follow up Start: 09-22-2024 Annual PCP Team Chronic Disease Visit Annual PCP Team Chronic Disease Visit [facility] Start: 09-10-2024 Annual PCP Team Chronic Disease Visit Annual PCP Team Chronic Disease Visit [facility] Start: 09-01-2024 End: 09-01-2024 Patient encounter procedure 09/01/2024 2:15 PM EDT Office Visit [facility] [address] [place] [id number] Hamida Hickey, WASTE RECYCLER.ELECTRONIC WARFARE TECHNICAL [address] [facility] [address] Chronic idiopathic constipation [K59.04]; Weight loss, non-intentional [R63.4]; Polyp of colon, unspecified part of colon, unspecified type [K63.5] [facility] [place] Comment on above: Chronic idiopathic constipation [K59.04] ; Weight loss, non-intentional [R63.4]; Polyp of colon, unspecified part of colon, unspecified type [K63.5] Start: 08-13-2024 Covid-19 Vaccine () Covid-19 Vaccine () [facility] Start: 08-03-2024 End: 08-03-2024 Patient encounter procedure 08/03/2024 2:40 PM EDT Office Visit [facility] [place] [address] [place] [address] Xuan Brandon, WASTE RECYCLER.ELECTRONIC WARFARE TECHNICAL [address] [place] [address] headache and stiff neck-see triage encounter 07/31 [facility] [place] Comment on above: headache and stiff neck-see triage encou nter 07/31 Start: 07-12-2024 DIABETES SCREEN DIABETES SCREEN [facility] Start: 07-02-2024 End: 07-02-2024 Patient encounter procedure 07/02/2024 3:40 PM EDT Office Visit [facility] [place] [address] [place], [place] [address] Femi Baeza MD [address] [place] [address] 3 month follow-up [facility] [place] Comment on above: 3 month follow-up Start: 06-16-2024 End: 06-16-2024 Patient encounter procedure 06/16/2024 1:40 PM EDT Office Visit [facility] [place] [address] [place] [address] Xuan Brandon, WASTE RECYCLER.ELECTRONIC WARFARE TECHNICAL [address] [facility] [place] [address] follow up 3 months [facility] [place] Comment on above: follow up 3 months Start: 06-12-2024 Colsc flx w/rmvl of tumor polyp lesion snare tq COLONOSCOPY W/LESION REMOVAL [facility] Start: 06-12-2024 Patient discharge [facility] Start: 05-07-2024 Annual PCP Team Chronic Disease Visit Annual PCP Team Chronic Disease Visit [facility] Start: 05-07-2024 BP Controlled (<130/80) BP Controlled (<130/80) [facility] Start: 04-05-2024 DIABETES SCREEN DIABETES SCREEN [facility] Start: 03-30-2024 Colonoscopy flx dx w/collj spec when pfrmd DIAGNOSTIC COLONOSCOPY [facility] Start: 03-30-2024 Patient discharge [facility] Start: 03-20-2024 [facility] Start: 03-18-2024 End: 03-18-2024 Patient encounter procedure 03/18/2024 1:40 PM EST Office Visit [facility] [place] [address] [facility] [place] [id number] Femi Baeza MD [address] [place] [address] Medicare Wellness [facility] [place] Comment on above: Medicare Wellness Start: 03-06-2024 Annual PCP Team Chronic Disease Visit Annual PCP Team Chronic Disease Visit [facility] Start: 03-06-2024 RSV Vaccine (1 - 1-dose 60+ series) RSV Vaccine (1 - 1-dose 60+ series) [facility] Comment on above: Postponed from 2006 (Declined at t his time) Start: 03-06-2024 RSV Vaccine (1 - 1-dose 75+ series) RSV Vaccine (1 - 1-dose 75+ series) [facility] Comment on above: Postponed from 2021 (Declined at t his time) Start: 03-06-2024 Shingrix Vaccine (1 of 2) Shingrix Vaccine (1 of 2) [facility] Comment on above: Postponed from 02/10/1996 (Declined at t his time) Start: 03-06-2024 Urine microalbumin profile DTaP,Tdap,Td Vaccine (1 - Tdap) [facility] Comment on above: Postponed from 05/20/2007 (Declined at t his time) Start: 03-02-2024 End: 06-01-2024 CBC panel - Blood by Automated count [facility] Work Phone: Comment on above: Expected: 03/02/2024, Expires: Start: 02-21-2024 [facility] Start: 02-21-2024 [facility] Start: 01-17-2024 End: 01-17-2024 Patient encounter procedure 01/17/2024 2:00 PM EST Office Visit [facility] [place] [address] [place] [address] Femi Baeza MD [address] [place] [address] ED follow up [facility] [place] Comment on above: ED follow up Start: 11-11-2023 End: 11-11-2023 Patient encounter procedure 11/11/2023 1:40 PM EDT Appointment Radiology [address] [place] [phone] Osteoporosis, unspecified osteoporosis type, unspecified pathological fracture presence [M81.0] Radiology Comment on above: Osteoporosis, unspecified osteoporosis t ype, unspecified pathological fracture presence [M81.0] Start: 11-03-2023 Covid-19 Vaccine ( season) Covid-19 Vaccine ( season) [facility] Start: 11-03-2023 Covid-19 Vaccine ( season) Covid-19 Vaccine ( season) [facility] Start: 11-03-2023 Influenza [facility] Start: 10-25-2023 ANNUAL PCP TEAM CHRONIC DISEASE VISIT ANNUAL PCP TEAM CHRONIC DISEASE VISIT [facility] Start: 10-25-2023 BP CONTROLLED (<130/80) BP CONTROLLED (<130/80) [facility] Start: 09-23-2023 End: 09-23-2023 Patient encounter procedure 09/23/2023 2:20 PM EDT Office Visit [facility] [place] [address] [place] [address] Xuan Brandon, WASTE RECYCLER.ELECTRONIC WARFARE TECHNICAL [address] [place], [place] [id number] Shave biopsy [facility] [place] Comment on above: Shave biopsy Start: 09-11-2023 End: 09-11-2023 Patient encounter procedure 09/11/2023 2:40 PM EDT Office Visit [facility] [place] [address] [facility] [place] [address] Xuan Brandon, [employer] [address] [facility] [place] [address] 4 Month F/U [facility] Comment on above: 4 Month F/U Start: 09-11-2023 End: 12-11-2023 Lipid 1996 panel - Serum or Plasma LIPID PANEL BASIC Lab Routine Encounter for lipid screening for cardiovascular disease Expected: 09/11/2023, Expires: 12/11/2023 [facility] Comment on above: Expected: 09/11/2023, Expires: Start: 07-05-2023 Covid-19 Vaccine () Covid-19 Vaccine () [facility] Start: 03-04-2023 Behavioral Health Screening Behavioral Health Screening [facility] Start: 01-22-2023 ANNUAL PCP TEAM CHRONIC DISEASE VISIT ANNUAL PCP TEAM CHRONIC DISEASE VISIT [facility] Start: 01-22-2023 SHINGRIX VACCINE (1 of 2) SHINGRIX VACCINE (1 of 2) [facility] Comment on above: Postponed from 02/10/1996 (Declined at t his time) Start: 01-22-2023 Urine microalbumin profile [facility] Comment on above: Postponed from 05/20/2007 (Declined at t his time) Start: 11-02-2022 Covid-19 Vaccine () Covid-19 Vaccine () [facility] Start: 11-02-2022 Influenza vaccination [facility] Start: 10-24-2022 End: 12-24-2022 Bacteria identified in Urine by Culture [facility] Work Phone: Comment on above: Expected: 10/24/2022, Expires: Start: 08-23-2022 Patient referral [facility] Work Phone: Start: 07-19-2022 ANNUAL PCP TEAM CHRONIC DISEASE VISIT ANNUAL PCP TEAM CHRONIC DISEASE VISIT [facility] Start: 07-02-2022 COLORECTAL CANCER SCREENING COLORECTAL CANCER SCREENING [facility] Comment on above: Postponed from 1991 (Declined at t his time) Start: 06-14-2022 ANNUAL PCP TEAM CHRONIC DISEASE VISIT ANNUAL PCP TEAM CHRONIC DISEASE VISIT [facility] Start: 05-27-2022 COVID-19 VACCINE (6 - Pfizer series) COVID-19 VACCINE (6 - Pfizer series) [facility] Start: 05-10-2022 End: 07-10-2022 25-hydroxyvitamin D3 [Mass/volume] in Serum or Plasma VITAMIN D 25 HYDROXY Lab Routine Vitamin D deficiency Hypercalcemia Expected: 05/10/2022 (Approximate), Expires: 07/10/2022 [facility] Work Phone: Comment on above: Expected: 05/10/2022 (Approximate), Expi res: 07/10/2022 Start: 05-10-2022 End: 07-10-2022 Calcium.ionized [Moles/volume] in Blood CALCIUM IONIZED BLOOD Lab Routine Vitamin D deficiency Hypercalcemia Expected: 05/10/2022 (Approximate), Expires: 07/10/2022 [facility] Work Phone: Comment on above: Expected: 05/10/2022 (Approximate), Expi res: 07/10/2022 Start: 05-10-2022 End: 07-10-2022 Parathyrin.intact [Mass/volume] in Serum or Plasma PTH INTACT BLD Lab Routine Vitamin D deficiency Hypercalcemia Expected: 05/10/2022 (Approximate), Expires: 07/10/2022 [facility] Work Phone: Comment on above: Expected: 05/10/2022 (Approximate), Expi res: 07/10/2022 Start: 04-04-2022 LIPID SCREEN LIPID SCREEN [facility] Start: 03-04-2022 ADVANCE DIRECTIVE DISCUSSION ADVANCE DIRECTIVE DISCUSSION [facility] Start: 03-04-2022 DEPRESSION ASSESSMENT DEPRESSION ASSESSMENT [facility] Start: 01-22-2022 End: 03-24-2022 Calcium.ionized [Moles/volume] in Blood [facility] Work Phone: Comment on above: Expected: 01/22/2022, Expires: 3 Start: 01-22-2022 End: 03-24-2022 Parathyrin.intact [Mass/volume] in Serum or Plasma [facility] Work Phone: Comment on above: Expected: 01/22/2022, Expires: 3 Start: 11-18-2021 [facility] Work Phone: Start: 11-02-2021 Influenza vaccination INFLUENZA (#1) [facility] Start: 10-08-2021 Colonoscopy COLONOSCOPY [facility] Start: 10-08-2021 COLORECTAL CANCER SCREENING COLORECTAL CANCER SCREENING [facility] Start: 09-13-2021 COVID-19 VACCINE (5 - Booster for Pfizer series) COVID-19 VACCINE (5 - Booster for Pfizer series) [facility] Start: 07-14-2021 End: 09-13-2021 Basic metabolic 2000 panel - Serum or Plasma BASIC METABOLIC PNL Lab Routine Hypercalcemia Expected: 07/14/2021, Expires: 09/13/2021 [facility] Work Phone: Comment on above: Expected: 07/14/2021, Expires: 2 Start: 07-14-2021 End: 09-13-2021 VITAMIN D 25 HYDROXY VITAMIN D 25 HYDROXY Lab Routine Vitamin D deficiency Expected: 07/14/2021, Expires: 09/13/2021 [facility] Work Phone: Comment on above: Expected: 07/14/2021, Expires: 2 Start: 05-26-2021 Adult depression screening assessment DEPRESSION SCREENING [facility] Start: 04-27-2021 COVID-19 VACCINE (4 - Booster for Pfizer series) COVID-19 VACCINE (4 - Booster for Pfizer series) [facility] Start: 03-04-2021 ADVANCE DIRECTIVE DISCUSSION ADVANCE DIRECTIVE DISCUSSION [facility] Start: 03-04-2021 DEPRESSION ASSESSMENT DEPRESSION ASSESSMENT [facility] Start: 2021 RSV Vaccine (1 - 1-dose 75+ series) RSV Vaccine (1 - 1-dose 75+ series) [facility] Start: 02-22-2017 FECAL OCCULT BLOOD FECAL OCCULT BLOOD [facility] Start: 12-13-2016 Screening for osteoporosis Bone Density Screening [facility] Start: 05-20-2007 Urine microalbumin profile [facility] Start: 2006 RSV Vaccine (1 - 1-dose 60+ series) RSV Vaccine (1 - 1-dose 60+ series) [facility] Start: 02-10-1996 SHINGRIX VACCINE (1 of 2) SHINGRIX VACCINE (1 of 2) [facility] Start: 1991 COLOGUARD (FIT-DNA) COLOGUARD (FIT-DNA) [facility] Start: [address] COLONOGRAPHY [facility] Start: 1991 SIGMOIDOSCOPY SIGMOIDOSCOPY [facility] Start: 02-10-1964 BP CONTROLLED (<130/80) BP CONTROLLED (<130/80) [facility] Start: 02-10-1964 Depression Screening Depression Screening [facility] Bacteria identified in Urine by Culture URINE CULTURE Microbiology Routine Dysuria Other microscopic hematuria 06/14/2021 4:19 PM EDT [facility] Work Phone: Bacteria identified in Urine by Culture Urine Culture [facility] Work Phone: Bacteria identified in Urine by Culture URINE CULTURE Microbiology Routine Dysuria Ordered: 05/08/2023 [facility] Work Phone: Comment on above: Ordered: 05/08/2023 Bacteria identified in Urine by Culture URINE CULTURE Microbiology Routine Dysuria Urinary frequency 11/08/2023 1:23 PM EDT [facility] Work Phone: End: 10-10-2024 BD DXA TRABECULAR BONE SCORE (TBS) BD DXA TRABECULAR BONE SCORE (TBS) Radiology Routine Osteoporosis, unspecified osteoporosis type, unspecified pathological fracture presence 1 Occurrences starting 09/11/2023 until 10/10/2024 [facility] Comment on above: 1 Occurrences starting 09/11/2023 until 10/10/2024 End: 10-10-2024 DXA Skeletal system.axial Views for bone density DXA-AXIAL SKELETON Radiology Routine Osteoporosis, unspecified osteoporosis type, unspecified pathological fracture presence 1 Occurrences starting 09/11/2023 until 10/10/2024 [facility] Work Phone: Comment on above: 1 Occurrences starting 09/11/2023 until 10/10/2024 Magnesium measurement [facility] Patient Education [facility] Work Phone: Patient referral [facility] Work Phone: Removal impacted cerumen irrigation/lvg unilat AMBULATORY EAR LAVAGE/IRRIGATION Procedures Routine Impacted cerumen of both ears Ordered: 02/04/2024 [facility] Work Phone: Comment on above: Ordered: 02/04/2024 SURGICAL PATHOLOGY SURGICAL PATH OLOGY Lab Routine Skin lesion of back Changing skin lesion 09/23/2023 2:57 PM EDT [facility] Work Phone: End: 07-14-2022 US KIDNEY/BLADDER [facility] Work Phone: Comment on above: 1 Occurrences starting 06/14/2021 until 07/14/2022 [facility] Immunizations Immunization Date Immunization Notes Care Provider Fa sunil 02-13-2024 COVID-19 vaccine, ag e 12+ yr (MODERNA) Femi Baeza MD Work Phone: [facility] 02-13-2024 influenza, high dose seasonal, preservative-free Femi Baeza MD Work Phone: [facility] 02-13-2024 influenza virus vaccine, unspecified formulation Xuan Chenr [employer] Work Phone: [facility] 03-06-2023 COVID-19 vaccine, ag e 12+ yr, season (PFIZER-BIONTECH) Xuan Abi [employer] Work Phone: [facility] 01-21-2023 influenza (aIIV4) vaccine, age 65+ yr, quadrivalent, PF (FLUAD QUAD) Femi Baeza MD Work Phone: [facility] 01-21-2023 influenza virus vaccine, unspecified formulation Femi Baeza MD Work Phone: [facility] 11-01-2021 influenza, high-dose , quadrivalent vaccine (FLUZONE HIGH DOSE QUADRIVALENT) Xuan Older [employer] Work Phone: [facility] 11-01-2021 influenza virus vaccine, unspecified formulation Xuan Older [employer] Work Phone: [facility] 07-19-2021 COVID-19 vaccine, ag e 12+ yr (PFIZER-BIONTECH - FAIR TOP) Femi Baeza MD Work Phone: [facility] Work Phone: 11-29-2020 influenza, high dose seasonal, preservative-free Femi Baeza MD Work Phone: [facility] Work Phone: 05-26-2020 COVID-19 vaccine, ag e 12+ yr (PFIZER-BIONTECH - PURPLE TOP) Femi Baeza MD Work Phone: [facility] Work Phone: 05-05-2020 COVID-19 vaccine, ag e 12+ yr (PFIZER-BIONTECH - PURPLE TOP) Femi Baeza MD Work Phone: [facility] Work Phone: 11-23-2019 influenza, high-dose , quadrivalent vaccine (FLUZONE HIGH DOSE QUADRIVALENT) Femi Baeza MD Work Phone: [facility] 01-05-2019 influenza, high dose seasonal, preservative-free Femi Baeza MD Work Phone: [facility] Work Phone: 12-29-2017 influenza, high dose seasonal, preservative-free Femi Baeza MD Work Phone: [facility] Work Phone: 01-21-2017 influenza, high dose seasonal, preservative-free Femi Baeza MD Work Phone: [facility] 01-19-2016 influenza, high dose seasonal, preservative-free Femi Baeza MD Work Phone: [facility] 06-16-2015 pneumococcal conjuga te vaccine, 13 valent Femi Baeza MD Work Phone: [facility] 12-06-2014 influenza, high dose seasonal, preservative-free Femi Baeza MD Work Phone: [facility] 01-01-2014 influenza, high dose seasonal, preservative-free Femi Baeza MD Work Phone: [facility] 12-17-2012 influenza virus vaccine, unspecified formulation Femi Baeza MD Work Phone: [facility] 06-22-2011 pneumococcal polysaccharide vaccine, 23 valent Femi Baeza MD Work Phone: [facility] 02-01-2011 influenza virus vaccine, unspecified formulation Femi Baeza MD Work Phone: [facility] 12-29-2009 influenza virus vaccine, unspecified formulation Femi Baeza MD Work Phone: [facility] Work Phone: 03-23-2009 novel [id number], preservative-free, injectable Femi Baeza MD Work Phone: [facility] Work Phone: 12-06-2008 influenza virus vaccine, unspecified formulation Femi Baeza MD Work Phone: [facility] Work Phone: 05-19-2007 tetanus and diphther ia toxoids, adsorbed, preservative free, for adult use (2 Lf of tetanus toxoid and 2 Lf of diphtheria toxoid) Femi Baeza MD Work Phone: [facility] 01-14-2006 influenza virus vaccine, unspecified formulation Femi Baeza MD Work Phone: [facility] Work Phone: 01-11-2005 influenza virus vaccine, unspecified formulation Femi Baeza MD Work Phone: [facility] Work Phone: Payers Date Payer Category [place]ayer [place] [id number] 2024 Self-pay [id number] 2023 Self-pay [id number] 2017 Medicare [id number] 2017 Medicare [id number] 2014 Medicare [id number] Medicare [id number] Unknown [id number] [id number]. 2.462 Unknown [id number] 2.16.840.1.857498.3.579. 2.462 Unknown [id number] 2.16.840.1.297128.3.579. 2.462 Unknown [id number] 2.16.840.1.025517.3.579. 2.462 Unknown [id number] 2.16.840.1.898956.3.579. 2.462 Unknown [id number] 2.16.840.1.096339.3.579. 2.462 Unknown [id number] 2..840.1.529719.3.579. 2.462 Unknown [id number] 2.16840.1.146180.3.579. 2.462 Unknown [id number] 2.16.840.1.862249.3.579. 2.462 Unknown [id number] 2.16.840.1.532866.3.579. 2.462 Unknown [id number] 2.16.840.1.978795.3.579. 2.462 Unknown [id number] 2.16.840.1.491152.3.579. 2.462 Unknown [id number] 2.840.1.320764.3.579. 2.462 Unknown [id number] 2.16.840.1.900988.3.579. 2.462 Unknown [id number] 2.16.840.1.588958.3.579. 2.462 Unknown [id number] 2.16.840.1.028400.3.579. 2.462 Unknown [id number] 2.16.840.1.769141.3.579. 2.462 Unknown [id number] 2.16.840.1.545073.3.579. 2.462 Unknown [id number] 2.16.840.1.316452.3.579. 2.462 Unknown [id number] 2.16.840.1.185707.3.579. 2.462 Unknown [id number] 2.16.840.1.384717.3.579. 2.462 Unknown [id number] 2.16.840.1.552752.3.579. 2.462 Unknown [id number] 2.16.840.1.717982.3.579. 2.462 Unknown [id number] 2.16.840.1.335209.3.579. 2.462 Unknown [id number] 2.16.840.1.893836.3.579. 2.462 Social History Date Type Detail Facility Start: 02-01-2011 End: 12-07-2024 Tobacco smoking status NHIS Ex-smoker [facility] Work Phone: Start: 03-04-1956 End: 03-04-1979 History of tobacco use Current smoker [facility] Start: 03-04-1956 End: 03-04-1979 History of tobacco use Cigarette Smoker [facility] Start: 06-14-2021 End: 09-08-2024 Alcohol intake Current non-drinker of alcohol (finding) [facility] Start: 12-02-2019 End: 05-26-2020 History SDOH Alcohol Frequency 1 [facility] Start: 12-02-2019 History SDOH Alcohol Std Drinks 98 [facility] Start: 11-30-2019 History SDOH Social Connections Phone 4 [facility] Start: 11-30-2019 End: 05-26-2020 History SDOH Social Connections Get Together 2 [facility] Start: 11-30-2019 History SDOH Physica l Activity DPW 3 [facility] Start: 11-30-2019 Education 12 [facility] Start: 1945 Sex Assigned At Not on file [facility] Start: 06-04-2021 End: 07-19-2021 Exposure to SARS-CoV-2 (event) Not sure [facility] Work Phone: Start: 06-01-2021 End: 08-23-2022 Tobacco smoking status NHIS Unknown if ever smoked [facility] Start: 09-08-2020 None [facility] Start: 09-08-2020 Homeless [facility] Start: 09-08-2020 Non-smoker [facility] Start: 1945 Sex Assigned At Female [facility] Start: 02-01-2011 End: 10-24-2022 Cigarettes smoked current (pack per day) - Reported 1 [facility] Work Phone: Start: 02-01-2011 End: 01-17-2024 Tobacco use and exposure Smokeless tobacco non-user [facility] Start: 01-22-2022 End: 10-24-2022 Tobacco use panel [facility] Work Phone: Start: 02-03-2012 Adult Depression Screening Assessment 0 [facility] Work Phone: Do you belong to any clubs or organizations such as anabaptism groups, unions, fraternal or athletic groups, or school groups? No [facility] Are you now , , , , never or living with a partner? [facility] How often to you hav e a drink containing alcohol? Never [facility] How hard is it for y ou to pay for the very basics like food, housing, medical care, and heating Somewhat hard [facility] Do you feel stress - tense, restless, nervous, or anxious, or unable to sleep at night because your mind is troubled all the time - these days [OSQ] Not at all [facility] Start: 05-14-2024 End: 06-12-2024 Sex Female (finding) [facility] NEGATED: Highlighted row Not [facility] Medical Equipment Procedure Code Equipment Code Equipment Original Text Equipment Identifier Dates Bud Bn Endur Sst 40gm Med Vsc - [id number] Start: 02-11-2012 Bud Bn Endur Sst 40gm Med Vsc - [id number] Start: 02-11-2012 Hgy-Tv-G-Kind Implant - [id number] Start: 02-11-2012 Comment on above: Description: TIBIAL INSERT FIXED BEARING STABILIZED PLUS Eli-Fc-P-Kind Implant - [id number] Start: 02-11-2012 Comment on above: Description: TIBIAL INSERT FIXED BEARING STABILIZED PLUS Comp Tibtry 4 Kn Bdu Mdlr Sig - [id number] Start: 02-11-2012 Comp Fem 4 Rt Kn Post - [id number] Start: 02-11-2012 Comp Fem 4 Lt Ps Bud Sig - [id number] Start: 02-11-2012 Comp Tibtry 3 Kn Bud Mdlr Sig - [id number] Start: 02-11-2012 Dome Pat 38mm Pf c Sig Std Kn - [id number] Start: 02-11-2012 Dome Pat 38mm Pf c Sig Std Kn - [id number] Start: 02-11-[address] Tis 10x5cm Thk2mm - [id number] Start: 10-25-2011 Goals Date Patient Goal Desired Activity /State Functional Status Date Assessment Result Facility 12-09-2024 Functional status Ambulates [facility] Work Phone: 07-28-2014 Are you deaf, or do you have serious difficulty hearing No 07/28/2014 10:33 AM Nanda Tapia RN No [facility] 07-28-2014 Are you blind, or do you have serious difficulty seeing, even when wearing glasses No 07/28/2014 10:33 AM Nanda Tapia RN No [facility] 07-28-2014 Do you have serious difficulty walking or climbing stairs Yes 07/28/2014 10:33 AM Nanda Tapia RN Yes [facility] 07-28-2014 Do you have difficul ty dressing or bathing No 07/28/2014 10:33 AM Nanda Tapia RN No [facility] 07-28-2014 Because of a physica l, mental, or emotional condition, do you have difficulty doing errands alone such as visiting a physician's office or shopping No 07/28/2014 10:33 AM Nanda Tapia RN No [facility] Mental Status Date Assessment Result Facility 12-09-2024 Cognitive function Voice/Name [facility] Work Phone: 12-07-2024 Cognitive function Level Of Cons ciousness Awake [facility] Work Phone: 06-12-2024 Cognitive function Voice/Name;Touch/Shaki ng [facility] Work Phone: 03-30-2024 Cognitive function Voice/Name [facility] Work Phone: 11-02-2022 Cognitive function Voice/Name [facility] Work Phone: 11-18-2021 Cognitive function Level Of Cons ciousness Awake;Alert;Appropriate;Fol lows Commands [facility] Work Phone: 07-28-2014 Because of a physica l, mental, or emotional condition, do you have serious difficulty concentrating, remembering, or making decisions No 07/28/2014 10:33 AM Nanda Tapia RN [facility] Clinical Notes 10-01-2013 to 12-09-2024 Note Date & Type Note Facility 12-09-2024 Consult note [facility] 12-09-2024 Consult note Note Date/Time December 09, 2024 4:45pm [facility] Medical Records Department [address] [place] [address] Counseling Note - Pharmacy 12/09/24 1443 MR#: [id number] Acct: [id number] Name: LEONEL ANDRE (BONNIE) Rep #: [id number] : 1945 79 From: Annamaria Cali PCP: Dr. Femi Baeza MD Status:A DM IN Y Location: [place] [address] Med Reconciliation Pharmacy Service has performed discharge medication reconciliation for this patient. The patient's discharge medication list was reviewed for discrepancies and discrepancies were resolved. Medications at Discharge Home Medications cholecalciferol (vitamin D3) 25 mcg (1,000 unit) tablet (Vitamin D3) 2,000 unit PO DAILY SUPPLEMENT 12/26/15 oxybutynin chloride 5 mg tablet 5 mg PO BID BLADDER 12/26/15 diltiazem HCl 180 mg capsule,24 hr,extended release 360 mg PO DAILY htn 09/08/20 lorazepam 0.5 mg tablet 0.5 mg PO DAILY ANXIETY 09/08/20 acetaminophen 500 mg tablet (Tylenol Extra Strength) 500 mg PO Q6H PRN pain 08/23/22 cetirizine 5 mg tablet 5 mg PO DAILY PRN allergy symptoms 08/23/22 fluticasone propionate 50 mcg/actuation nasal spray,suspension 1 spray intranasal DAILY PRN allergy symptoms 08/23/22 omeprazole 40 mg capsule,delayed release 40 mg PO DAILY GERD 08/23/22 denosumab 60 mg/mL subcutaneous syringe (Prolia) 60 mg subcut [id number] OSTEOPOROSIS #1 mL 10/03/22 Lactobacillus rhamnosus GG 20 billion cell capsule (Probiotic Digestive Care) 1 cell PO DAILY [facility] 12/16/23 ondansetron 8 mg disintegrating tablet 8 mg PO Q8H PRN nausea and vomiting #15 tabs 02/21/24 losartan 50 mg tablet 50 mg PO BID HTN 06/08/24 linaclotide 145 mcg capsule (Linzess) 145 mcg PO QAM IBS #30 caps 11/09/24 lactulose 10 gram/15 mL oral solution 10 g (15 mL) PO TID CONSTIPATION #1,200 mL11/13/24 dextrin 3 gram/4 gram oral powder (Clear Fiber) 3 g PO DAILY constipation 12/07/24 fexofenadine 180 mg tablet (Louisa Allergy) 180 mg PO DAILY ALLERGY SYMPTOMS 12/07/24 olopatadine 0.2 % eye drops (Pataday Once Daily Relief) 1 drp EACH EYE DAILY allergies 12/07/24 sennosides 17.2 mg tablet (Senokot Extra Strength) 17.2 mg PO DAILY [id number]/06/25 sennosides 17.2 mg tablet (Senokot Extra Strength) 34.4 mg PO QHS constipation 12/07/24 docusate sodium 100 mg capsule 100 mg PO TID constipation #90 caps 12/08/24 12/09/24 [id number] <Electronically signed by Annamaria Cali> Date _ Annamaria Cali Cosigner Signature (if applicable): Date CC: ~ Signed [facility] Work Phone: 1(734) 667-814810-08-2025 Discharge summary Author Kelle Davila [facility] Note Date/Time December 09, 2024 4: 27pm [facility] Medical Records Department [address] [place] [address] Discharge Summary 12/09/24 1439 MR#: [id number] Acct: [id number] Name: LEONEL ANDRE (BONNIE) Rep #: [id number] : 1945 79 From: Kelle Davila MD PCP: Dr. Femi Baeza MD Status:A DM IN Location: [place] [address] Providers Date of Admission: 12/07/24 Date of Discharge: 12/09/24 Primary Care Physician: Dr. Femi Baeza MD Consultations 12/07/24 23:19 Consult: Urology Routine Consulting Provider: Peewee Negro Reason for Consult: kidney masses EMERGENT Consult: No MD Notified: Yes Date Notified: 12/08/24 Time Notified: 08:41 Method of Notification: Verbal Reason For Visit: HYPONATREMIA, HYPOKALEMIA, weakness Diagnosis Discharge Diagnosis (1) Generalized weakness: Status: Acute Code(s): R53.1 - Weakness Plan # Generalized weakness 2/2 hyponatremia and hypokalemia?resolved # Chronic constipation #Hypertension # Hyponatremia-resolved # Hypokalemia?resolved #R renal mass lesions #R shoulder pain 2/2 chronic rotator cuff injury Medications at Discharge Home Medications cholecalciferol (vitamin D3) 25 mcg (1,000 unit) tablet (Vitamin D3) 2,000 unit PO DAILY SUPPLEMENT 12/26/15 oxybutynin chloride 5 mg tablet 5 mg PO BID BLADDER 12/26/15 diltiazem HCl 180 mg capsule,24 hr,extended release 360 mg PO DAILY htn 09/08/20 lorazepam 0.5 mg tablet 0.5 mg PO DAILY ANXIETY 09/08/20 acetaminophen 500 mg tablet (Tylenol Extra Strength) 500 mg PO Q6H PRN pain 08/23/22 cetirizine 5 mg tablet 5 mg PO DAILY PRN allergy symptoms 08/23/22 fluticasone propionate 50 mcg/actuation nasal spray,suspension 1 spray intranasal DAILY PRN allergy symptoms 08/23/22 omeprazole 40 mg capsule,delayed release 40 mg PO DAILY GERD 08/23/22 denosumab 60 mg/mL subcutaneous syringe (Prolia) 60 mg subcut [id number] OSTEOPOROSIS #1 mL 10/03/22 Lactobacillus rhamnosus GG 20 billion cell capsule (Probiotic Digestive Care) 1 cell PO DAILY [facility] 12/16/23 ondansetron 8 mg disintegrating tablet 8 mg PO Q8H PRN nausea and vomiting #15 tabs 02/21/24 losartan 50 mg tablet 50 mg PO BID HTN 06/08/24 linaclotide 145 mcg capsule (Linzess) 145 mcg PO QAM IBS #30 caps 11/09/24 lactulose 10 gram/15 mL oral solution 10 g (15 mL) PO TID CONSTIPATION #1,200 mL11/13/24 dextrin 3 gram/4 gram oral powder (Clear Fiber) 3 g PO DAILY constipation 12/07/24 fexofenadine 180 mg tablet (Louisa Allergy) 180 mg PO DAILY ALLERGY SYMPTOMS 12/07/24 olopatadine 0.2 % eye drops (Pataday Once Daily Relief) 1 drp EACH EYE DAILY allergies 12/07/24 sennosides 17.2 mg tablet (Senokot Extra Strength) 17.2 mg PO DAILY [id number]/06/25 sennosides 17.2 mg tablet (Senokot Extra Strength) 34.4 mg PO QHS constipation 12/07/24 docusate sodium 100 mg capsule 100 mg PO TID constipation #90 caps 12/08/24 Hospital Course Summary of Care Provided Minutes Spent on Discharge: 24 Hospital Course: 79F with a history of hypertension, constipation, GERD, osteoporosis who presented [facility] ED 12/07/2024 for generalized weakness as well as chronic constipation. In the ED she was found to have a normal white count at 7, hemoglobin 13.5. Sodium was noted to be low at 127 and potassium of3.2. Liver panel unremarkable and creatinine 0.57. UA not indicative of infection. She had CT abdomen pelvis with contrast which showed moderate to large colonic stool burden suggesting constipation. Hospitalist contacted for admission for hyponatremia and generalized weakness as well as constipation. She had her bowel regimen escalated and was given IV fluids and hydrochlorothiazide was discontinued, electrolyte abnormalities corrected and patient felt much better, did have some stool output and had decreased nausea and was tolerating p.o., has some chronic abdominal pain which was unchanged, given this is a chronic problem and she follows with GI and is now tolerating p.o. and feeling better discussed discharge and patient comfortable with that. No new or acute complaints on day of discharge. Discharge instructions as follows: - Your hydrochlorothiazide has been held, this may have caused or contributed toyour low sodium and potassium on presentation which can worsen weakness - Please continue your bowel regimen and it is advised to follow-up with your coil builder upon discharge for continued management of your constipation -Please follow-up with Dr. Negro for your kidneys upon discharge. Please call their office to schedule hospital follow-up appointment upon discharge. -Please call your primary care provider's office upon discharge to schedule a hospital follow up within 1 week. -For any concerning signs or symptoms please call 911 or proceed to the nearest emergency department Physical Exam Narrative General: Alert, no apparent distress HEENT: Atraumatic, normocephalic Eyes: Anicteric, normal conjunctiva, extraocular movements grossly intact Neck: Supple Respiratory: Clear to auscultation bilaterally, normal respiratory effort Cardiovascular: Regular rate and rhythm GI: Some vague diffuse tenderness again without any rebound, guarding, rigidity Extremities: No edema Musculoskeletal: Moving all extremities Neuro: No overt focal neurological deficits Skin: No rashes appreciated Psych: Cooperative Medical Records Data Medical Nutrition Assessment Dietitian: Malnutrition Criteria Met Start: 12/08/24 17:18 Freq: Status: Active Protocol: Document 12/08/24 17:18 RMA (Rec: 12/08/24 17:19 RMA [id number]) Nutrition Malnutrition Evidence of Yes Malnutrition Exists Malnutrition (severe Chronic ): Evidenced By Suboptimal Energy Intake (Severe),Weight Loss (Severe), Physical Changes (Moderate) Clinical Problem Chronic Disease or Condition Related Malnutrition Etiology Severe protein-calorie malnutrition in the context of chronic disease related to inadequate oral/energy intake, debility and weakness Signs/Symptoms as evidenced by unintentional weight loss ~19% x 11 months, BMI 20.1, oral intake meeting less than 50% estimated nutrition needs x past 2 months and +NFPE with moderate muscle wasting/fat depletion in the clavicle, arms, legs and orbitals. Status Active Problem Recommendation Dietitian Recommend advance diet as tolerated to liberal Regular. Recommendations/ Offer ONS as diet advanced Ensure Plus HP or Glucerna Changes Shake if pt refuses Ensure Plus HP. Added sugar-free jello to meals per pt request; suspect disordered eating pattern as blood glucose is 97 and no noted history of DM---pt seems overly consumed about not consuming sugar. Weight / BMI Weight Weight: 56.1 kg Body Mass Index (BMI) 21.2 ABG / Lab / Microbiology Data 12/08/24 04:53 12/09/24 04:57 Laboratory: Laboratory Results - last 24 hr 12/09/24 04:57: Sodium 135, Potassium 3.5, Chloride 98, Carbon Dioxide 25.7, Anion Gap 10, BUN 7, Creatinine 0.52 L, Estim Creat Clear Calc 50.05, Est GFR (MDRD) Non-Af 95, BUN/Creatinine Ratio 13.1, Glucose 93, Calcium 9.4, Phosphorus2.1 L D/C Instructions DC O2, CPAP, BIPAP Needs Home O2 Discharge instructions: No Meaningful Use Info Meaningful Use Meaningful Use Diagnoses (Choose all that apply): None applicable Discharge Plan Admission Admit Date/Time: 12/07/24 21:50 Primary Reason for Your Visit: Generalized weakness Attending Provider: Kelle Davila Primary Care Provider: Femi Baeza Consulting Providers: Ranjeet Aldana; Peewee Negro Instructions Patient Instructions: Treating Constipation, ED Constipation (Adult) Additional Instructions / Restrictions: DISCHARGE INSTRUCTIONS PLEASE READ *Please take this with you to your next doctors appointment* - Your hydrochlorothiazide has been held, this may have caused or contributed toyour low sodium and potassium on presentation which can worsen weakness - Please continue your bowel regimen and it is advised to follow-up with your coil builder upon discharge for continued management of your constipation -Please follow-up with Dr. Negro for your kidneys upon discharge. Please call their office to schedule hospital follow-up appointment upon discharge. -Please call your primary care provider's office upon discharge to schedule a hospital follow up within 1 week. -For any concerning signs or symptoms please call 911 or proceed to the nearest emergency department Discharge Orders/Prescriptions Prescriptions: Continued omeprazole 40 mg capsule,delayed release(DR/EC) 40 mg PO DAILY acetaminophen [Tylenol Extra Strength] 500 mg tablet 500 mg PO Q6H PRN (Reason: pain) cetirizine 5 mg tablet 5 mg PO DAILY PRN (Reason: allergy symptoms) fluticasone propionate 50 mcg/actuation spray,suspension 1 spray intranasal DAILY PRN (Reason: allergy symptoms) Rx Instructions: administer into each nostril Probiotic Digestive Care 20 billion cell capsule 1 cell PO DAILY oxybutynin chloride 5 MG tablet 5 mg PO BID cholecalciferol (vitamin D3) [Vitamin D3] 1,000 UNIT tablet 2,000 unit PO DAILY diltiazem HCl 180 mg capsule,extended release 24 hr 360 mg PO DAILY lorazepam 0.5 mg tablet 0.5 mg PO DAILY losartan 50 mg tablet 50 mg PO BID ondansetron 8 mg tablet,disintegrating 8 mg PO Q8H PRN (Reason: nausea and vomiting) Qty: 15 0RF fexofenadine [Louisa Allergy] 180 mg tablet 180 mg PO DAILY Clear Fiber 3 gram/4 gram powder 3 g PO DAILY Senokot Extra Strength 17.2 mg tablet 17.2 mg PO DAILY Senokot Extra Strength 17.2 mg tablet 34.4 mg PO QHS olopatadine [Pataday Once Daily Relief] 0.2 % drops 1 drp EACH EYE DAILY Prolia 60 mg/mL syringe 60 mg subcut [id number] Qty: 1 1RF Linzess 145 mcg capsule 145 mcg PO QAM Qty: 30 2RF lactulose 10 gram/15 mL solution 10 g PO TID Qty: 1200 1RF docusate sodium 100 mg capsule 100 mg PO TID Qty: 90 2RF Discontinued hydrochlorothiazide 50 mg tablet 50 mg PO DAILY Referrals / Follow Up: Peewee Negro MD [Med Staff - Active Staff, Urology] - In 1 Week Referral Note: Please call to schedule the appointment day after discharge for kidney masses. [employer]in [employer] attempted to call but the office closed early. Femi Baeza MD [Primary Care Provider, Internal Medicine] Zonia Lawrence PA [Med Staff - Adv Practice Prof, Gastroenterology] Referral Note: Please follow-up with gastroenterology upon discharge for continued management of your chronic constipation Disposition Disposition (needs filled in before D/C Order can be placed): Home, Self Care Charges/Coding Visit Charges Inpatient E&M: 33366 Disch Hosp 10/08/25 1627 <Electronically signed by Kelle Davila MD> Cosigner Signature (if applicable): CC: Dr. Kelle Davila MD; Dr. Femi Baeza MD~ Signed [facility] Work Phone: 1(642) 417-960110-08-2025 Discharge summary Author Kelle Davila [facility] Note Date/Time December 09, 2024 2: 38pm [facility] Medical Records Department [address] [place] [address] Instructions for Home/Discharge Instructions 12/09/24 1436 MR#: [id number] Acct: [id number] Name: LEONEL ANDRE (BONNIE) Rep #: [id number] : 1945 79 From: Kelle Davila MD PCP: Dr. Femi Baeza MD Status:A DM IN Discharge Instructions DC O2, CPAP, BIPAP needs Home O2 Discharge instructions: No Dressing / Incision Discharge Activity: - (Increase activity as tolerated) Follow Up Care Test Results: Test results from this visit will be discussed in further detail at your follow- up appointment, if applicable. Discharge Plan Admission Admit Date/Time: 12/07/24 21:50 Primary Reason for Your Visit: Generalized weakness Attending Provider: Kelle Davila Primary Care Provider: Femi Baeza Consulting Providers: Ranjeet Aldana; Peewee Negro Instructions Patient Instructions: Treating Constipation, ED Constipation (Adult) Additional Instructions / Restrictions: DISCHARGE INSTRUCTIONS PLEASE READ *Please take this with you to your next doctors appointment* - Your hydrochlorothiazide has been held, this may have caused or contributed toyour low sodium and potassium on presentation which can worsen weakness - Please continue your bowel regimen and it is advised to follow-up with your coil builder upon discharge for continued management of your constipation -Please follow-up with Dr. Negro for your kidneys upon discharge. Please call their office to schedule hospital follow-up appointment upon discharge. -Please call your primary care provider's office upon discharge to schedule a hospital follow up within 1 week. -For any concerning signs or symptoms please call 911 or proceed to the nearest emergency department Discharge Orders/Prescriptions Prescriptions: Continued omeprazole 40 mg capsule,delayed release(DR/EC) 40 mg PO DAILY acetaminophen [Tylenol Extra Strength] 500 mg tablet 500 mg PO Q6H PRN (Reason: pain) cetirizine 5 mg tablet 5 mg PO DAILY PRN (Reason: allergy symptoms) fluticasone propionate 50 mcg/actuation spray,suspension 1 spray intranasal DAILY PRN (Reason: allergy symptoms) Rx Instructions: administer into each nostril Probiotic Digestive Care 20 billion cell capsule 1 cell PO DAILY oxybutynin chloride 5 MG tablet 5 mg PO BID cholecalciferol (vitamin D3) [Vitamin D3] 1,000 UNIT tablet 2,000 unit PO DAILY diltiazem HCl 180 mg capsule,extended release 24 hr 360 mg PO DAILY lorazepam 0.5 mg tablet 0.5 mg PO DAILY losartan 50 mg tablet 50 mg PO BID ondansetron 8 mg tablet,disintegrating 8 mg PO Q8H PRN (Reason: nausea and vomiting) Qty: 15 0RF fexofenadine [Louisa Allergy] 180 mg tablet 180 mg PO DAILY Clear Fiber 3 gram/4 gram powder 3 g PO DAILY Senokot Extra Strength 17.2 mg tablet 17.2 mg PO DAILY Senokot Extra Strength 17.2 mg tablet 34.4 mg PO QHS olopatadine [Pataday Once Daily Relief] 0.2 % drops 1 drp EACH EYE DAILY Prolia 60 mg/mL syringe 60 mg subcut [id number] Qty: 1 1RF Linzess 145 mcg capsule 145 mcg PO QAM Qty: 30 2RF lactulose 10 gram/15 mL solution 10 g PO TID Qty: 1200 1RF docusate sodium 100 mg capsule 100 mg PO TID Qty: 90 2RF Discontinued hydrochlorothiazide 50 mg tablet 50 mg PO DAILY Referrals / Follow Up: Peewee Negro MD [Med Staff - Active Staff, Urology] - In 1 Week Referral Note: Please call to schedule the appointment day of discharge for kidney masses. Femi Baeza MD [Primary Care Provider, Internal Medicine] Zonia Lawrence PA [Med Staff - Adv Practice Prof, Gastroenterology] Referral Note: Please follow-up with gastroenterology upon discharge for continued management of your chronic constipation Disposition Disposition (needs filled in before D/C Order can be placed): Home, Self Care 12/09/24 7417<Electronically signed by Kelle Davila MD>Kelle Davila MD CC: Dr. Ranjeet Aldana DO; Dr. Peewee Negro MD; Dr. Femi Baeza MD ~ Signed [facility] Work Phone: 1(772) 903-129110-08-2025 Discharge summary [facility] Medical Records Department [address] [place] [address] Discharge Summary 12/09/24 1439 MR#: [id number] Acct: [id number] Name: LEONEL ANDRE (BONNIE) Rep #: [id number] : 1945 79 From: Kelle Davila MD PCP: Dr. Femi Baeza MD Status:A DM IN Location: [place] [id number] Providers Date of Admission: 12/07/24 Date of Discharge: 12/09/24 Primary Care Physician: Dr. Femi Baeza MD Consultations 12/07/24 23:19 Consult: Urology Routine Consulting Provider: Peewee Negro Reason for Consult: kidney masses EMERGENT Consult: No MD Notified: Yes Date Notified: 12/08/24 Time Notified: 08:41 Method of Notification: Verbal Reason For Visit: HYPONATREMIA, HYPOKALEMIA, weakness Diagnosis Discharge Diagnosis (1) Generalized weakness: Status: Acute Code(s): R53.1 - Weakness Plan # Generalized weakness 2/2 hyponatremia and hypokalemia?resolved # Chronic constipation #Hypertension # Hyponatremia-resolved # Hypokalemia?resolved #R renal mass lesions #R shoulder pain 2/2 chronic rotator cuff injury Medications at Discharge Home Medications cholecalciferol (vitamin D3) 25 mcg (1,000 unit) tablet (Vitamin D3) 2,000 unit PO DAILY [id number]/16 oxybutynin chloride 5 mg tablet 5 mg PO BID BLADDER 12/26/15 diltiazem HCl 180 mg capsule,24 hr,extended release 360 mg PO DAILY htn 09/08/20 lorazepam 0.5 mg tablet 0.5 mg PO DAILY ANXIETY 09/08/20 acetaminophen 500 mg tablet (Tylenol Extra Strength) 500 mg PO Q6H PRN pain 08/23/22 cetirizine 5 mg tablet 5 mg PO DAILY PRN allergy symptoms 08/23/22 fluticasone propionate 50 mcg/actuation nasal spray,suspension 1 spray intranasal DAILY PRN allergysymptoms 08/23/22 omeprazole 40 mg capsule,delayed release 40 mg PO DAILY GERD 08/23/22 denosumab 60 mg/mL subcutaneous syringe (Prolia) 60 mg subcut [id number] OSTEOPOROSIS #1 mL 10/03/22 Lactobacillus rhamnosus GG 20 billion cell capsule (Probiotic Digestive Care) 1 cell PO DAILY GUT HEALTH 12/16/23 ondansetron 8 mg disintegrating tablet 8 mg PO Q8H PRN nausea and vomiting #15 tabs 02/21/24 losartan 50 mg tablet 50 mg PO BID HTN 06/08/24 linaclotide 145 mcg capsule (Linzess) 145 mcg PO QAM IBS #30 caps 11/09/24 lactulose 10 gram/15 mL oral solution 10 g (15 mL) PO TID CONSTIPATION #1,200 mL11/13/24 dextrin 3 gram/4 gram oral powder (Clear Fiber) 3 g PO DAILY constipation 12/07/24 fexofenadine 180 mg tablet (Louisa Allergy) 180 mg PO DAILY ALLERGY SYMPTOMS 12/07/24 olopatadine 0.2 % eye drops (Pataday Once Daily Relief) 1 drp EACH EYE DAILY allergies 12/07/24 sennosides 17.2 mg tablet (Senokot Extra Strength) 17.2 mg PO DAILY [id number]/06/25 sennosides 17.2 mg tablet (Senokot Extra Strength) 34.4 mg PO QHS constipation 12/07/24 docusate sodium 100 mg capsule 100 mg PO TID constipation #90 caps 12/08/24 Hospital Course Summary of Care Provided Minutes Spent on Discharge: 24 Hospital Course: 79F with a history of hypertension, constipation, GERD, osteoporosis who presented [facility] ED 12/07/2024 for generalized weakness as well as chronic constipation. In the ED she was found to have a normal white count at 7, hemoglobin 13.5. Sodium was noted to be low at 127 and potassium of3.2. Liver panel unremarkable and creatinine 0.57. UA not indicative of infection. She had CT abdomen pelvis with contrast which showed moderate to large colonic stool burden suggesting constipation. Hospitalist contacted for admission for hyponatremia and generalized weakness as well as constipation. She had her bowel regimen escalated and was given IV fluids and hydrochlorothiazide was discontinued, electrolyte abnormalities corrected and patient felt much better, did have some stool output and had decreased nausea and was tolerating p.o., has some chronic abdominal pain which was unchanged, given this is a chronic problem and she follows with GI and is now tolerating p.o. and feeling better discussed discharge and patient comfortable with that. No new or acute complaints on day of discharge. Discharge instructions as follows: - Your hydrochlorothiazide has been held, this may have caused or contributed toyour low sodium andpotassium on presentation which can worsen weakness - Please continue your bowel regimen and it is advised to follow-up with your coil builder upon discharge for continued management of your constipation -Please follow-up with Dr. Negro for your kidneys upon discharge. Please call their office to schedule hospital follow-up appointment upon discharge. -Please call your primary care provider's office upon discharge to schedule a hospital follow up within 1 week. -For any concerning signs or symptoms please call 911 or proceed to the nearest emergency department Physical Exam Narrative General: Alert, no apparent distress HEENT: Atraumatic, normocephalic Eyes: Anicteric, normal conjunctiva, extraocular movements grossly intact Neck: Supple Respiratory: Clear to auscultation bilaterally, normal respiratory effort Cardiovascular: Regular rate and rhythm GI: Some vague diffuse tenderness again without any rebound, guarding, rigidity Extremities: No edema Musculoskeletal: Moving all extremities Neuro: No overt focal neurological deficits Skin: No rashes appreciated Psych: Cooperative Medical Records Data Medical Nutrition Assessment Dietitian: Malnutrition Criteria Met Start: 12/08/24 17:18 Freq: Status: Active Protocol: Document 12/08/24 17:18 RMA (Rec: 12/08/24 17:19 RMA [id number]) Nutrition Malnutrition Evidence of Yes Malnutrition Exists Malnutrition (severe Chronic ): Evidenced By Suboptimal Energy Intake (Severe),Weight Loss (Severe), Physical Changes (Moderate) Clinical Problem Chronic Disease or Condition Related Malnutrition Etiology Severe protein-calorie malnutrition in the context of chronic disease related to inadequate oral/energy intake, debility and weakness Signs/Symptoms as evidenced by unintentional weight loss ~19% x 11 months, BMI 20.1, oral intake meeting less than 50% estimated nutrition needs x past 2 months and +NFPE with moderate muscle wasting/fat depletion in the clavicle, arms, legs and orbitals. Status Active Problem Recommendation Dietitian Recommend advance diet as tolerated to liberal Regular. Recommendations/ Offer ONS as diet advanced Ensure Plus HP or Glucerna Changes Shake if pt refuses Ensure Plus HP. Added sugar-free jello to meals per pt request; suspect disordered eating pattern as blood glucose is 97 and no noted history of DM---pt seems overly consumed about not consuming sugar. Weight / BMI Weight Weight: 56.1 kg Body Mass Index (BMI) 21.2 ABG / Lab / Microbiology Data 12/08/24 04:53 12/09/24 04:57 Laboratory: Laboratory Results - last 24 hr 12/09/24 04:57: Sodium 135, Potassium 3.5, Chloride 98, Carbon Dioxide 25.7, Anion Gap 10, BUN 7, Creatinine 0.52 L, Estim Creat Clear Calc 50.05, Est GFR (MDRD) Non-Af 95, BUN/Creatinine Ratio 13.1,Glucose 93, Calcium 9.4, Phosphorus2.1 L D/C Instructions DC O2, CPAP, BIPAP Needs Home O2 Discharge instructions: No Meaningful Use Info Meaningful Use Meaningful Use Diagnoses (Choose all that apply): None applicable Discharge Plan Admission Admit Date/Time: 12/07/24 21:50 Primary Reason for Your Visit: Generalized weakness Attending Provider: Kelle Davila Primary Care Provider: Femi Baeza Consulting Providers: Ranjeet Aldana; Peewee Negro Instructions Patient Instructions: Treating Constipation, ED Constipation (Adult) Additional Instructions / Restrictions: DISCHARGE INSTRUCTIONS PLEASE READ *Please take this with you to your next doctors appointment* - Your hydrochlorothiazide has been held, this may have caused or contributed toyour low sodium andpotassium on presentation which can worsen weakness - Please continue your bowel regimen and it is advised to follow-up with your coil builder upon discharge for continued management of your constipation -Please follow-up with Dr. Negro for your kidneys upon discharge. Please call their office to schedule hospital follow-up appointment upon discharge. -Please call your primary care provider's office upon discharge to schedule a hospital follow up within 1 week. -For any concerning signs or symptoms please call 911 or proceed to the nearest emergency department Discharge Orders/Prescriptions Prescriptions: Continued omeprazole 40 mg capsule,delayed release(DR/EC) 40 mg PO DAILY acetaminophen [Tylenol Extra Strength] 500 mg tablet 500 mg PO Q6H PRN (Reason: pain) cetirizine 5 mg tablet 5 mg PO DAILY PRN (Reason: allergy symptoms) fluticasone propionate 50 mcg/actuation spray,suspension 1 spray intranasal DAILY PRN (Reason: allergy symptoms) Rx Instructions: administer into each nostril Probiotic Digestive Care 20 billion cell capsule 1 cell PO DAILY oxybutynin chloride 5 MG tablet 5 mg PO BID cholecalciferol (vitamin D3) [Vitamin D3] 1,000 UNIT tablet 2,000 unit PO DAILY diltiazem HCl 180 mg capsule,extended release 24 hr 360 mg PO DAILY lorazepam 0.5 mg tablet 0.5 mg PO DAILY losartan 50 mg tablet 50 mg PO BID ondansetron 8 mg tablet,disintegrating 8 mg PO Q8H PRN (Reason: nausea and vomiting) Qty: 15 0RF fexofenadine [Louisa Allergy] 180 mg tablet 180 mg PO DAILY Clear Fiber 3 gram/4 gram powder 3 g PO DAILY Senokot Extra Strength 17.2 mg tablet 17.2 mg PO DAILY Senokot Extra Strength 17.2 mg tablet 34.4 mg PO QHS olopatadine [Pataday Once Daily Relief] 0.2 % drops 1 drp EACH EYE DAILY Prolia 60 mg/mL syringe 60 mg subcut [id number] Qty: 1 1RF Linzess 145 mcg capsule 145 mcg PO QAM Qty: 30 2RF lactulose 10 gram/15 mL solution 10 g PO TID Qty: 1200 1RF docusate sodium 100 mg capsule 100 mg PO TID Qty: 90 2RF Discontinued hydrochlorothiazide 50 mg tablet 50 mg PO DAILY Referrals / Follow Up: Peewee Negro MD [Med Staff - Active Staff, Urology] - In 1 Week Referral Note: Please call to schedule the appointment day after discharge for kidney masses. Clyo attempted to call but the office closed early. Femi Baeza MD [Primary Care Provider, Internal Medicine] Zonia Lawrence PA [Med Staff - Adv Practice Prof, Gastroenterology] Referral Note: Please follow-up with gastroenterology upon discharge for continued management of your chronic constipation Disposition Disposition (needs filled in before D/C Order can be placed): Home, Self Care Charges/Coding Visit Charges Inpatient E&M: 14214 Disch Hosp 12/09/24 8777 Cosigner Signature (if applicable): CC: Dr. Kelle Davila MD; Dr. Femi Baeza MD~ Signed [facility]10-08-2025 [facility] Medical Records Department [address] [place] [address] Discharge Summary 12/09/24 1439 MR#: [id number] Acct: [id number] Name: LEONEL ANDRE (BONNIE) Rep #: [id number] : 1945 79 From: Kelle Davila MD PCP: Dr. Femi Baeza MD Status:ADM IN [id number] Prov[facility] Date of Admission: 12/07/24 Date of Discharge: 12/09/24 Primary Care Physician: Dr. Femi Baeza MD Consultations 12/07/24 23:19 Consult: Urology Routine Consulting Provider: Peewee Negro Reason for Consult: kidney masses EMERGENT Consult: No MD Notified: Yes Date Notified: 12/08/24 Time Notified: 08:41 Method of Notification: Verbal Reason For Visit: HYPONATREMIA, HYPOKALEMIA, weakness Diagnosis Discharge Diagnosis (1) Generalized weakness: Status: Acute Code(s): R53.1 - Weakness Plan # Generalized weakness 2/2 hyponatremia and hypokalemia???resolved # Chronic constipation #Hypertension # Hyponatremia-resolved # Hypokalemia???resolved #R renal mass lesions #R shoulder pain 2/2 chronic rotator cuff injury Medications at Discharge Home Medications cholecalciferol (vitamin D3) 25 mcg (1,000 unit) tablet (Vitamin D3) 2,000 unit PO DAILY SUPPLEMENT 12/26/15 oxybutynin chloride 5 mg tablet 5 mg PO BID BLADDER 12/26/15 diltiazem HCl 180 mg capsule,24 hr,extended release 360 mg PO DAILY htn 09/08/20 lorazepam 0.5 mg tablet 0.5 mg PO DAILY ANXIETY 09/08/20 acetaminophen 500 mg tablet (Tylenol Extra Strength) 500 mg PO Q6H PRN pain 08/23/22 cetirizine 5 mg tablet 5 mg PO DAILY PRN allergy symptoms 08/23/22 fluticasone propionate 50 mcg/actuation nasal spray,suspension 1 spray intranasal DAILY PRN allergy symptoms 08/23/22 omeprazole 40 mg capsule,delayed release 40 mg PO DAILY GERD 08/23/22 denosumab 60 mg/mL subcutaneous syringe (Prolia) 60 mg subcut [id number] OSTEOPOROSIS #1 mL 10/03/22 Lactobacillus rhamnosus GG 20 billion cell capsule (Probiotic Digestive Care) 1 cell PO DAILY GUT HEALTH 12/16/23 ondansetron 8 mg disintegrating tablet 8 mg PO Q8H PRN nausea and vomiting #15 tabs 02/21/24 losartan 50 mg tablet 50 mg PO BID HTN 06/08/24 linaclotide 145 mcg capsule (Linzess) 145 mcg PO QAM IBS #30 caps 11/09/24 lactulose 10 gram/15 mL oral solution 10 g (15 mL) PO TID CONSTIPATION #1,200 mL 11/13/24 dextrin 3 gram/4 gram oral powder (Clear Fiber) 3 g PO DAILY constipation 12/07/24 fexofenadine 180 mg tablet (Louisa Allergy) 180 mg PO DAILY ALLERGY SYMPTOMS 12/07/24 olopatadine 0.2 % eye drops (Pataday Once Daily Relief) 1 drp EACH EYE DAILY allergies 12/07/24 sennosides 17.2 mg tablet (Senokot Extra Strength) 17.2 mg PO DAILY constipation 12/07/24 sennosides 17.2 mg tablet (Senokot Extra Strength) 34.4 mg PO QHS constipation 12/07/24 docusate sodium 100 mg capsule 100 mg PO TID constipation #90 caps 12/08/24 Hospital Course Summary of Care Provided Minutes Spent on Discharge: 24 Hospital Course: 79F with a history of hypertension, constipation, GERD, osteoporosis who presented [facility] ED 12/07/2024 for generalized weakness as well as chronic constipation. In the ED she was found to have a normal white count at 7, hemoglobin 13.5. Sodium was noted to be low at 127 and potassium of 3.2. Liver panel unremarkable and creatinine 0.57. UA not indicative of infection. She had CT abdomen pelvis with contrast which showed moderate to large colonic stool burden suggesting constipation. Hospitalist contacted for admission for hyponatremia and generalized weakness as well as constipation. She had her bowel regimen escalated and was given IV fluids and hydrochlorothiazide was discontinued, electrolyte abnormalities corrected and patient felt much better, did have some stool output and had decreased nausea and was tolerating p.o., has some chronic abdominal pain which was unchanged, given this is a chronic problem and she follows with GI and is now tolerating p.o. and feeling better discussed discharge and patient comfortable with that. No new or acute complaints on day of discharge. Discharge instructions as follows: - Your hydrochlorothiazide has been held, this may have caused or contributed to your low sodium and potassium on presentation which can worsen weakness - Please continue your bowel regimen and it is advised to follow-up with your coil builder upon discharge for continued management of your constipation -Please follow-up with Dr. Negro for your kidneys upon discharge. Please call their office to schedule hospital follow-up appointment upon discharge. -Please call your primary care provider's office upon discharge to schedule a hospital follow up within 1 week. -For any concerning signs or symptoms please call 911 or proceed to the nearest emergency department Physical Exam Narrative General: Alert, no appare (more content not included)...[facility]10-08-2025 Discharge summary [facility] Medical Records Department [address] [place] [address] Instructions for Home/Discharge Instructions 12/09/24 1436 MR#: [id number] Acct: [id number] Name: LEONEL ANDRE (BONNIE) Rep #: [id number] : 1945 79 From: Kelle Davila MD PCP: Dr. Femi Baeza MD Status:A DM IN Discharge Instructions DC O2, CPAP, BIPAP needs Home O2 Discharge instructions: No Dressing / Incision Discharge Activity: - (Increase activity as tolerated) Follow Up Care Test Results: Test results from this visit will be discussed in further detail at your follow- up appointment, if applicable. Discharge Plan Admission Admit Date/Time: 12/07/24 21:50 Primary Reason for Your Visit: Generalized weakness Attending Provider: Kelle Davila Primary Care Provider: Femi Baeza Consulting Providers: Ranjeet Aldana; Peewee Negro Instructions Patient Instructions: Treating Constipation, ED Constipation (Adult) Additional Instructions / Restrictions: DISCHARGE INSTRUCTIONS PLEASE READ *Please take this with you to your next doctors appointment* - Your hydrochlorothiazide has been held, this may have caused or contributed toyour low sodium andpotassium on presentation which can worsen weakness - Please continue your bowel regimen and it is advised to follow-up with your coil builder upon discharge for continued management of your constipation -Please follow-up with Dr. Negro for your kidneys upon discharge. Please call their office to schedule hospital follow-up appointment upon discharge. -Please call your primary care provider's office upon discharge to schedule a hospital follow up within 1 week. -For any concerning signs or symptoms please call 911 or proceed to the nearest emergency department Discharge Orders/Prescriptions Prescriptions: Continued omeprazole 40 mg capsule,delayed release(DR/EC) 40 mg PO DAILY acetaminophen [Tylenol Extra Strength] 500 mg tablet 500 mg PO Q6H PRN (Reason: pain) cetirizine 5 mg tablet 5 mg PO DAILY PRN (Reason: allergy symptoms) fluticasone propionate 50 mcg/actuation spray,suspension 1 spray intranasal DAILY PRN (Reason: allergy symptoms) Rx Instructions: administer into each nostril Probiotic Digestive Care 20 billion cell capsule 1 cell PO DAILY oxybutynin chloride 5 MG tablet 5 mg PO BID cholecalciferol (vitamin D3) [Vitamin D3] 1,000 UNIT tablet 2,000 unit PO DAILY diltiazem HCl 180 mg capsule,extended release 24 hr 360 mg PO DAILY lorazepam 0.5 mg tablet 0.5 mg PO DAILY losartan 50 mg tablet 50 mg PO BID ondansetron 8 mg tablet,disintegrating 8 mg PO Q8H PRN (Reason: nausea and vomiting) Qty: 15 0RF fexofenadine [Louisa Allergy] 180 mg tablet 180 mg PO DAILY Clear Fiber 3 gram/4 gram powder 3 g PO DAILY Senokot Extra Strength 17.2 mg tablet 17.2 mg PO DAILY Senokot Extra Strength 17.2 mg tablet 34.4 mg PO QHS olopatadine [Pataday Once Daily Relief] 0.2 % drops 1 drp EACH EYE DAILY Prolia 60 mg/mL syringe 60 mg subcut [id number] Qty: 1 1RF Linzess 145 mcg capsule 145 mcg PO QAM Qty: 30 2RF lactulose 10 gram/15 mL solution 10 g PO TID Qty: 1200 1RF docusate sodium 100 mg capsule 100 mg PO TID Qty: 90 2RF Discontinued hydrochlorothiazide 50 mg tablet 50 mg PO DAILY Referrals / Follow Up: Peewee Negro MD [Med Staff - Active Staff, Urology] - In 1 Week Referral Note: Please call to schedule the appointment day of discharge for kidney masses. Femi Baeza MD [Primary Care Provider, Internal Medicine] Zonia Lawrence PA [Med Staff - [facility] Prof, Gastroenterology] Referral Note: Please follow-up with gastroenterology upon discharge for continued management of your chronic constipation Disposition Disposition (needs filled in before D/C Order can be placed): Home, Self Care 12/09/24 1438Kelle Davila MD CC: Dr. Ranjeet Aldana DO; Dr. Peewee Negro MD; Dr. Femi Baeza MD ~ Signed [facility]10-07-2025 Progress note Author Kelle Davila [facility] Note Date/Time December 08, 2024 1: 54pm [facility] Medical Records Department [address] [place] [address] Progress Note - Hospitalist 12/08/24719 MR#: [id number] Acct: [id number] Name: LEONEL ANDRE (PEG) Blayne Rep #: [id number] : 1945 79 From: Kelle Davila MD PCP: Dr. Femi Baeza MD Status:A DM IN Location: [place] [address] Reason for Visit Chief Complaint: Constipation, Nausea and Generalized Weakness. Subjective Subjective She is feeling little bit stronger and somewhat better today, still has some vague abdominal pain and has had some stool output but not significant amount, still little bit nauseous that this is improving Objective Data Objective Data Vital Signs: Vital Signs Temp Pulse Resp BP Pulse Ox O2 Del Method 97.7 F L 58 L 16 140/77 H 97 Room Air 12/08/24 05:10 12/08/24 05:10 12/08/24 05:10 12/08/24 05:10 12/08/24 05:10 12/08/24 05:10 Oxygen Delivery Method Room Air Weight: 53.2 kg Body Mass Index (BMI) 20.1 Intake & Output: Intake and Output for Last 24 Hours 12/06/24 12/07/24 12/08/24 23:59 23:59 23:59 Intake Total 1000 / 1000 716.67 / 716.67 Output Total 400 / 400 Balance 1000 / 600 316.67 / 316.67 Lab / Micro Data 12/08/24 04:53 12/08/24 04:53 Labs: Laboratory Results - last 24 hr 12/07/24 16:46: WBC 7.0, RBC 4.51, Hgb 13.5, Hct 38.9, MCV 86.3, MCH 29.9, MCHC 34.7, RDW Std Deviation 39.8, RDW Coeff of Sharron 12.7, Plt Count 223, MPV 9.8, Immature Gran % (Auto) 0.100, Neut % (Auto) 63.7, Lymph % (Auto) 12.9 L, Rolette % (Auto) 8.3, Eos % (Auto) 14.4 H, Baso % (Auto) 0.6, Absolute Neuts (auto) 4.5, Absolute Lymphs (auto) 0.90, Nucleated RBC % 0, Differential Comment SCANNED, Platelet Estimate ADEQUATE, Sodium 127 L, Potassium 3.2 L, Chloride 88 L, CarbonDioxide 25.1, Anion Gap 14, BUN 20 H, Creatinine 0.57 L, Estim Creat Clear Calc 49.22 L, Est GFR (MDRD) Non-Af 93, BUN/Creatinine Ratio 35.4 H, Glucose 128 H, Serum Osmolality 306 H, Calcium 10.4, Magnesium 1.6, Total Bilirubin 0.44, AST 18, ALT 16, Alkaline Phosphatase 56, Total Protein 7.0, Albumin 4.5, Globulin 2.4, Albumin/Globulin Ratio 1.9, Lipase 16 12/07/24 16:57: Urine Color Straw, Urine Clarity Clear, Urine pH 7.0, Ur Specific Reinholds 1.010, Urine Protein 15 H, Urine Glucose (UA) Normal, Urine Ketones Negative, Urine Occult Blood 10 H, Urine Nitrite Negative, Urine Bilirubin Negative, Urine Urobilinogen Normal, Ur Leukocyte Esterase Negative, Urine RBC 0-5 SEEN, Urine WBC 0-5 SEEN, Ur Squamous Epith Cells 0-5 SEEN, Urine Bacteria 0 SEEN, Urine Mucus 0 SEEN 12/08/24 04:53: WBC 5.6, RBC 4.19 L, Hgb 12.4, Hct 35.7 L, MCV 85.2, MCH 29.6, MCHC 34.7, RDW Std Deviation 39.7, RDW Coeff of Sharron 13.0, Plt Count 195, MPV 9.4, Immature Gran % (Auto) 0.400, Neut % (Auto) 60.0, Lymph % (Auto) 25.9, Rolette% (Auto) 13.2 H, Eos % (Auto) 0.0, Baso % (Auto) 0.5, Absolute Neuts (auto) 3.3,Absolute Lymphs (auto) 1.44, Nucleated RBC % 0, Sodium 134, Potassium 4.0, Chloride 99, Carbon Dioxide 25.4, Anion Gap 10, BUN 11, Creatinine 0.55 L, EstimCreat Clear Calc 48.67 L, Est GFR (MDRD) Non-Af 94, BUN/Creatinine Ratio 20.3 H,Glucose 97, Calcium 9.8, Phosphorus 2.1 L, Total Bilirubin 0.36, AST 15, ALT 13,Alkaline Phosphatase 44, Total Protein 6.2, Albumin 4.1, Globulin 2.1 L, Albumin/Globulin Ratio 2.0, TSH 2.570 Radiography Diagnostic Testing: Radiology Impression Abdomen/Pelvis CT 12/07/24 18:10 IMPRESSION: 1. No acute or active inflammatory intra-abdominal pathology identified. 2. Moderate-large colonic stool burden suggesting constipation. 3. No significant change in multiple right renal mass lesions as noted. Recommend follow-up. Reading Location: [facility] Upper Extremity CT 12/08/24 00:15 IMPRESSION: 1. High-riding humeral head with severe subacromial space narrowing, suggestiveof a chronic rotator cuff injury. 2. Moderate degenerative changes at the acromioclavicular joint. 3. Borderline widening of the acromioclavicular joint. Reading Location: [facility] Physical Exam Narrative General: Alert, oriented, no apparent distress HEENT: Atraumatic, normocephalic Eyes: Anicteric, normal conjunctiva, extraocular movements grossly intact Neck: Supple Respiratory: Clear to auscultation bilaterally, normal respiratory effort Cardiovascular: Regular rate and rhythm GI: Some vague diffuse tenderness without any rebound, guarding, rigidity Extremities: No edema Musculoskeletal: Moving all extremities Neuro: No overt focal neurological deficits Skin: No rashes appreciated Psych: Cooperative Assessment & Plan Assessment/Plan (1) Generalized weakness: PLAN: Plan 79F with a history of hypertension, constipation, GERD, osteoporosis who presented [facility] ED 12/07/2024 for generalized weakness as well as chronic constipation. In the ED she was found to have a normal white count at 7, hemoglobin 13.5. Sodium was noted to be low at 127 and potassium of3.2. Liver panel unremarkable and creatinine 0.57. UA not indicative of infection. She had CT abdomen pelvis with contrast which showed moderate to large colonic stool burden suggesting constipation. Hospitalist contacted for admission for hyponatremia and generalized weakness as well as constipation. # Generalized weakness -Suspect in part secondary to hyponatremia and hypokalemia - Underlying electrolyte abnormalities have resolved, patient is beginning to feel better -PT/OT -CM consult -Supportive care - Encourage p.o. intake and will continue to hold hydrochlorothiazide -Will need alternate agent on discharge #Constipation - Moderate to large colonic stool burden noted on abdomen pelvis CT -Patient on scheduled bowel regimen - Had Dulcolax suppository and enema with a little bit of stool output but not significant, patient agreeable to another enema -Continue home Linzess if able, nonformulary so someone may need to bring in forpatient if applicable #Hypertension - Continue Cardizem and losartan -Holding hydrochlorothiazide # Hyponatremia-resolved - Sodium 127 on presentation, patient is typically within the normal range but occasionally is low 130s, this a.m. sodium improved to 134 with cessation of hydrochlorothiazide and supportive care -Will not resume hydrochlorothiazide on discharge # Hypokalemia?resolved - Potassium 3.2 on presentation -Pt received oral replacement hydrochlorothiazide stopped, this is resolved -K this AM 4 #R renal mass lesions - Appreciated on CT scan with no significant changes - Does have history of left nephrectomy from [facility] -Urology to follow with patient on an outpatient basis #R shoulder pain - CT scan shows findings suggestive of chronic rotator cuff injury - Recommend outpatient follow-up with Ortho #DVT ppx: Heparin subcu Kelle Davila MD Charges/Coding Visit Charges Inpatient E&M: 41620 Subs Hosp L2 12/08/24 5300 <Electronically signed by Kelle Davila MD> Cosigner Signature (if applicable): CC: ~ Signed [facility] Work Phone: 1(322) 415-437010-07-2025 Progress note [facility] Medical Records Department [address] [place] [address] [place] [address] Progress Note - Hospitalist 12/08/24 07 MR#: [id number] Acct: [id number] Name: LEONEL ANDRE (BONNIE) Rep #: [id number] : 1945 79 From: Kelle Davila MD PCP: Dr. Femi Baeza MD Status:A DM IN Location: [place] [address] Reason for Visit Chief Complaint: Constipation, Nausea and Generalized Weakness. Subjective Subjective She is feeling little bit stronger and somewhat better today, still has some vague abdominal pain and has had some stool output but not significant amount, still little bit nauseous that this is improving Objective Data Objective Data Vital Signs: Vital Signs Temp Pulse Resp BP Pulse Ox O2 Del Method 97.7 F L 58 L 16 140/77 H 97 Room Air 12/08/24 05:10 12/08/24 05:10 12/08/24 05:10 12/08/24 05:10 12/08/24 05:10 12/08/24 05:10 Oxygen Delivery Method Room Air Weight: 53.2 kg Body Mass Index (BMI) 20.1 Intake & Output: Intake and Output for Last 24 Hours 12/06/24 12/07/24 12/08/24 23:59 23:59 23:59 Intake Total 1000 / 1000 716.67 / 716.67 Output Total 400 / 400 Balance 1000 / 600 316.67 / 316.67 Lab / Micro Data 12/08/24 04:53 12/08/24 04:53 Labs: Laboratory Results - last 24 hr 12/07/24 16:46: WBC 7.0, RBC 4.51, Hgb 13.5, Hct 38.9, MCV 86.3, MCH 29.9, MCHC 34.7, RDW Std Deviation 39.8, RDW Coeff of Sharron 12.7, Plt Count 223, MPV 9.8, Immature Gran % (Auto) 0.100, Neut % (Auto) 63.7, Lymph % (Auto) 12.9 L, Rolette % (Auto) 8.3, Eos % (Auto) 14.4 H, Baso % (Auto) 0.6, Absolute Neuts (auto) 4.5, Absolute Lymphs (auto) 0.90, Nucleated RBC % 0, Differential Comment SCANNED, Platelet Estimate ADEQUATE, Sodium 127 L, Potassium 3.2 L, Chloride 88 L, CarbonDioxide 25.1, Anion Gap 14, BUN 20 H, Creatinine 0.57 L, Estim Creat Clear Calc 49.22 L, Est GFR (MDRD) Non-Af 93, BUN/Creatinine Ratio 35.4 H, Glucose 128 H, Serum Osmolality 306 H, Calcium 10.4, Magnesium 1.6, Total Bilirubin 0.44, AST 18, ALT 16, Alkaline Phosphatase 56, Total Protein 7.0, Albumin 4.5, Globulin 2.4, Albumin/Globulin Ratio 1.9, Lipase 16 12/07/24 16:57: Urine Color Straw, Urine Clarity Clear, Urine pH 7.0, Ur Specific Reinholds 1.010, Urine Protein 15 H, Urine Glucose (UA) Normal, Urine Ketones Negative, Urine Occult Blood 10 H, Urine Nitrite Negative, Urine Bilirubin Negative, Urine Urobilinogen Normal, Ur Leukocyte Esterase Negative, Urine RBC 0-5 SEEN, Urine WBC 0-5 SEEN, Ur Squamous Epith Cells 0-5 SEEN, Urine Bacteria 0 SEEN, Urine Mucus 0 SEEN 12/08/24 04:53: WBC 5.6, RBC 4.19 L, Hgb 12.4, Hct 35.7 L, MCV 85.2, MCH 29.6, MCHC 34.7, RDW Std Deviation 39.7, RDW Coeff of Sharron 13.0, Plt Count 195, MPV 9.4, Immature Gran % (Auto) 0.400, Neut % (Auto) 60.0, Lymph % (Auto) 25.9, Rolette% (Auto) 13.2 H, Eos % (Auto) 0.0, Baso % (Auto) 0.5, Absolute Neuts (auto) 3.3,Absolute Lymphs (auto) 1.44, Nucleated RBC % 0, Sodium 134, Potassium 4.0, [id number], Carbon Dioxide 25.4, Anion Gap 10, BUN 11, Creatinine 0.55 L, EstimCreat Clear Calc 48.67 L, Est GFR (MDRD) Non-Af 94, BUN/Creatinine Ratio 20.3 H,Glucose 97, Calcium 9.8, Phosphorus 2.1 L, TotalBilirubin 0.36, AST 15, ALT 13,Alkaline Phosphatase 44, Total Protein 6.2, Albumin 4.1, Globulin 2.1 L, Albumin/Globulin Ratio 2.0, TSH 2.570 Radiography Diagnostic Testing: Radiology Impression Abdomen/Pelvis CT 12/07/24 18:10 IMPRESSION: 1. No acute or active inflammatory intra-abdominal pathology identified. 2. Moderate-large colonic stool burden suggesting constipation. 3. No significant change in multiple right renal mass lesions as noted. Recommend follow-up. Reading Location: [facility] Upper Extremity CT 12/08/24 00:15 IMPRESSION: 1. High-riding humeral head with severe subacromial space narrowing, suggestiveof a chronic rotatorcuff injury. 2. Moderate degenerative changes at the acromioclavicular joint. 3. Borderline widening of the acromioclavicular joint. Reading Location: [facility] Physical Exam Narrative General: Alert, oriented, no apparent distress HEENT: Atraumatic, normocephalic Eyes: Anicteric, normal conjunctiva, extraocular movements grossly intact Neck: Supple Respiratory: Clear to auscultation bilaterally, normal respiratory effort Cardiovascular: Regular rate and rhythm GI: Some vague diffuse tenderness without any rebound, guarding, rigidity Extremities: No edema Musculoskeletal: Moving all extremities Neuro: No overt focal neurological deficits Skin: No rashes appreciated Psych: Cooperative Assessment & Plan Assessment/Plan (1) Generalized weakness: PLAN: Plan 79F with a history of hypertension, constipation, GERD, osteoporosis who presented [facility] ED 12/07/2024 for generalized weakness as well as chronic constipation. In the ED she was found to have a normal white count at 7, hemoglobin 13.5. Sodium was noted to be low at 127 and potassium of3.2. Liver panel unremarkable and creatinine 0.57. UA not indicative of infection. She had CT abdomen pelvis with contrast which showed moderate to large colonic stool burden suggesting constipation. Hospitalist contacted for admission for hyponatremia and generalized weakness as well as constipation. # Generalized weakness -Suspect in part secondary to hyponatremia and hypokalemia - Underlying electrolyte abnormalities have resolved, patient is beginning to feel better -PT/OT -CM consult -Supportive care - Encourage p.o. intake and will continue to hold hydrochlorothiazide -Will need alternate agent on discharge #Constipation - Moderate to large colonic stool burden noted on abdomen pelvis CT -Patient on scheduled bowel regimen - Had Dulcolax suppository and enema with a little bit of stool output but not significant, patientagreeable to another enema -Continue home Linzess if able, nonformulary so someone may need to bring in forpatient if applicable #Hypertension - Continue Cardizem and losartan -Holding hydrochlorothiazide # Hyponatremia-resolved - Sodium 127 on presentation, patient is typically within the normal range but occasionally is low 130s, this a.m. sodium improved to 134 with cessation of hydrochlorothiazide and supportive care -Will not resume hydrochlorothiazide on discharge # Hypokalemia?resolved - Potassium 3.2 on presentation -Pt received oral replacement hydrochlorothiazide stopped, this is resolved -K this AM 4 #R renal mass lesions - Appreciated on CT scan with no significant changes - Does have history of left nephrectomy from [facility] -Urology to follow with patient on an outpatient basis #R shoulder pain - CT scan shows findings suggestive of chronic rotator cuff injury - Recommend outpatient follow-up with Ortho #DVT ppx: Heparin subcu Kelle Davila MD Charges/Coding Visit Charges Inpatient E&M: 68696 Subs Hosp L2 12/08/24 1354 Cosigner Signature (if applicable): CC: ~ Signed [facility]10-07-2025 History and physical note Author Ranjeet Wisdom [facility] Note Date/Time December 08, 2024 6: 22am [facility] Medical Records Department [address] [place] [address] H&P Exam - Hospitalist 12/07/242116 MR#: [id number] Acct: [id number] Name: LEONEL ANDRE (BONNIE) Rep #: [id number] : 1945 79 From: Ranjeet Colon DO PCP: Dr. Femi Baeza MD Status:A DM IN Location: [facility] [id number] HPI - General General Date of Admission: 12/07/24 Date of Service: 12/07/24 Chief Complaint: Constipation, Nausea and Generalized Weakness. HPI Narrative LEONEL DELLAyden ANDRE, is a 79 F with a past medical history of essential hypertension; on losartan BID, diltiazem and hydrochlorothiazide, former tobaccoabuse, IBS; of constipation-type on linaclotide plus lactulose TID, OAB with history of bladder prolapse; on oxybutynin BID, depression with anxiety; on lorazepam daily, osteoporosis; on vitamin D3 plus denosumab q. 6 months, historyof primary hyperparathyroidism, seasonal allergies; on cetirizine, fexofenadine and fluticasone NS, GERD; on omeprazole, history of diverticulosis and colonic stricture; s/p colonoscopy (03/2024), history of bowel obstruction, history of cholecystectomy, remote history of tubal ligation, OA; s/p TKR and sciatica withscoliosis and lumbar radiculopathy plus history of renal cell carcinoma; s/p partial Left nephrectomy (2011) who presents to [facility] ER complaining of constipation, nausea and generalized weakness. Ms. Andre reports her symptoms began approximately 3-4 days prior to admission with acute worsening of chronic constipation in spite of taking linaclotide and lactulose. She states she has taken polyethylene glycol in the past which did not help her. She admits to having a large bowel movement earlier today that was painful with a large stool burden which left her feeling shaky and generally weak overall. She states she has been eating normally and denies vomiting. She also admits to pain in her right shoulder since a fall in August with multiple providers having evaluated her for this with suspicion for a possible rotator cuff tear with recent steroid injection by orthopedist Dr. Luciano on November 09, 2024. She denies associated fever, chills, changes in vision, discharge from eyes, chest pain, palpitations, heart racing, lower extremity edema, shortness of breath, cough, dysuria, hematuria, headache or rash. In the ER she was noted to have Hyponatremia of 127 mmol/L with Hypokalemia of 3.2 mmol/L present on admission both due to suspected Adverse Drug Reaction to hydrochlorothiazide with a corresponding CT scan of the abdomenand pelvis with IV contrast that revealed no acute or active inflammatory intra-abdominal pathology identified with moderate-large colonic stool burden suggesting constipation and no significant change in Multiple Right Renal Mass Lesions with follow-up recommended complicated by clinical evidence of Acute-on Chronic Constipation compounded by Generalized Weakness. She was then admitted to the PCU for ongoing care for status is expected to extend beyond 2 midnights. [facility] Medical History Wears glasses Cancer Anxiety Ambulates [...] (vitamin D3) 25 2,000 unit PO DAILY HARDIN PPLEMENT 12/26/15 12/06/24 History mcg (1,000 unit) tablet (Vitamin D3) oxybutynin chloride 5 mg tablet 5 mg PO BID BLADDER 12/07/24 History diltiazem HCl 180 mg capsule,24 360 mg PO DAILY htn 12/07/24 History hr,extended release lorazepam 0.5 mg tablet 0.5 mg PO DAILY ANXIETY /10/2212/07/24 History acetaminophen 500 mg tablet 500 mg PO Q6H PRN pain 12/07/24 History (Tylenol Extra Strength) cetirizine 5 mg tablet 5 mg PO DAILY PRN allergy sy mptoms 08/23/22 Unknown History fluticasone propionate 50 1 spray intranasal DAILY PRN 08/23/22 Unknown History mcg/actuation nasal allergy symptoms spray,suspension omeprazole 40 mg capsule,delayed 40 mg PO DAILY GERD 0 08/23/22 12/06/24 History release denosumab 60 mg/mL subcutaneous 60 mg subcut [id number] OSTEOPOROSIS 10/03/22 Unknown Rx syringe (Prolia) #1 mL Lactobacillus rhamnosus GG 20 1 cell PO DAILY GUT HEAL TH 12/16/23 12/06/24 History billion cell capsule (Probiotic Digestive Care) ondansetron 8 mg disintegrating 8 mg PO Q8H PRN nausea and 02/21/24 Unknown Rx tablet vomiting #15 tabs losartan 50 mg tablet 50 mg PO BID HTN 06/08/24 History docusate sodium 100 mg capsule 100 mg PO TID constipat ion #90 caps 08/11/24 12/07/24 Rx linaclotide 145 mcg capsule 145 mcg PO QAM IBS #30 cap s 11/09/24 12/07/24 Rx (Linzess) lactulose 10 gram/15 mL oral 10 g (15 mL) PO TID CONST IPATION 11/13/24 12/07/24 Rx solution #1,200 mL dextrin 3 gram/4 gram oral powder 3 g PO DAILY constip ation 12/07/24 Unknown History (Clear Fiber) fexofenadine 180 mg tablet 180 mg PO DAILY ALLERGY SYM PTOMS 12/07/24 12/06/24 History (Louisa Allergy) hydrochlorothiazide 50 mg tablet 50 mg PO DAILY DIURET IC 12/07/24 12/07/24 History olopatadine 0.2 % eye drops 1 drp EACH EYE DAILY aller gies 12/07/24 Unknown History (Pataday Once Daily Relief) sennosides 17.2 mg tablet (Senokot 17.2 mg PO DAILY co nstipation 12/07/24 Unknown History Extra Strength) sennosides 17.2 mg tablet (Senokot 34.4 mg PO QHS cons tipation 12/07/24 Unknown History Extra Strength) Allergy/AdvReac Type Severity Reaction Status Date / Time lisinopril Allergy Swelling Verified 12/07/24 16:06 hydrochlorothiazide AdvReac Intermediate Hyponatremia Verified 12/07/24 21:39 and Hypokalemia esomeprazole (From Nexium) AdvReac Nausea/Vom/ Verified 12/07/24 16:06 Diarrhea Family History Father Alcoholism Brother Alcoholism Mother Arthritis Hypertension Osteoporosis Surgical History Hx of colonoscopy History of tubal ligation History of cholecystectomy History of knee replacement H/O partial nephrectomy Social History Smoking Status: Former smoker alcohol intake: never what type of physical activity do you participate in: bicycling ROS ROS Narrative Review of Systems: Constitutional: Patient denies fever or chills. Eyes: Patient denies changes in vision or discharge from eyes. ENT: Patient denies runny nose, sore throat or ear pain. Resp: Patient denies shortness of breath or cough. CV: Patient denies chest pain, palpitations, heart racing or lower extremity edema. GI: Patient admits to nausea and constipation but is still having bowel movements as per HPI. She denies vomiting or abdominal pain. : Patient denies dysuria or hematuria. MSK: Patient admits to generalized weakness but she denies arthralgias or myalgias. Skin: Patient denies rash, abscess, wounds or jaundice. Psych: Patient denies symptoms uncontrolled depression or anxiety. Neuro: Patient denies headache, paresthesias or focal neurologic deficits. Allergy: Patient denies lip swelling, tongue swelling or urticaria. Hematology: Patient denies easy bleeding or easy bruisability. Endocrinology: Patient denies polyuria, polydipsia, polyphagia or heat/cold intolerance. 14 point ROS otherwise negative except for positives noted above in HPI. Vital Signs Vital Signs Vital Signs: 12/07/24 16:06 12/07/24 16:39 12/07/24 18:05 Temperature 98.1 F Temperature Source Temporal Pulse Rate 85 56 L Respiratory Rate 24 H 16 Respiratory Effort Normal Respiratory Pattern Normal Blood Pressure 167/102 H 145/74 H Blood Pressure Mean 123 97 Pulse Ox 98 100 Oxygen Delivery Method Room Air Room Air 12/07/24 20:00 12/07/24 21:16 Temperature 98.1 F Temperature Source Pulse Rate 59 L 59 L Respiratory Rate 18 18 Respiratory Effort Respiratory Pattern Blood Pressure 125/83 H 125/83 H Blood Pressure Mean 97 97 Pulse Ox 100 100 Oxygen Delivery Method Room Air Weight Weight: 118 lb 9.739 oz Body Mass Index (BMI) 20.3 Physical Exam Const alert, oriented x3, no apparent distress and average body habitus Constitutional Narrative: Patient appears frail and chronically ill but nontoxic. General Appearance: cooperative HEENT normocephalic, head/scalp atraumatic, hearing grossly normal bilaterally and moist oral mucous membranes Eyes PERRL, EOMs intact bilaterally and conjunctivae normal Neck no lymphadenopathy, supple and no JVD Resp normal respiratory effort, no retractions, no use of accessory muscles and clearto auscultation bilaterally Cardio regular rate and regular rhythm GI soft to palpation and non-distended GI Narrative: Patient noted generalized mild tenderness to palpation throughout her abdomen. Extremity normal to inspection, full ROM and no clubbing, cyanosis or edema Skin Skin Narrative: Patient has evidence of rash, abscess, wounds or jaundice. Neuro oriented x3, CN's II-XII intact bilaterally, moves all extremities and no focal motor deficits Sensorium / Orientation: awake, alert, oriented to person, oriented to place andoriented to time Speech: speech normal Psych affect normal Results Medical Records Data Attestation: I reviewed the patient's medical records Lab / Micro Data Attestation: I reviewed the patient's lab results. 12/08/24 04:53 12/07/24 16:46 Labs: Laboratory Results - last 24 hr 12/07/24 16:46: WBC 7.0, RBC 4.51, Hgb 13.5, Hct 38.9, MCV 86.3, MCH 29.9, MCHC 34.7, RDW Std Deviation 39.8, RDW Coeff of Sharron 12.7, Plt Count 223, MPV 9.8, Immature Gran % (Auto) 0.100, Neut % (Auto) 63.7, Lymph % (Auto) 12.9 L, Rolette % (Auto) 8.3, Eos % (Auto) 14.4 H, Baso % (Auto) 0.6, Absolute Neuts (auto) 4.5, Absolute Lymphs (auto) 0.90, Nucleated RBC % 0, Differential Comment SCANNED, Platelet Estimate ADEQUATE, Sodium 127 L, Potassium 3.2 L, Chloride 88 L, CarbonDioxide 25.1, Anion Gap 14, BUN 20 H, Creatinine 0.57 L, Estim Creat Clear Calc 49.22 L, Est GFR (MDRD) Non-Af 93, BUN/Creatinine Ratio 35.4 H, Glucose 128 H, Calcium 10.4, Total Bilirubin 0.44, AST 18, ALT 16, Alkaline Phosphatase 56, Total Protein 7.0, Albumin 4.5, Globulin 2.4, Albumin/Globulin Ratio 1.9, [id number] 12/07/24 16:57: Urine Color Straw, Urine Clarity Clear, Urine pH 7.0, Ur Specific Reinholds 1.010, Urine Protein 15 H, Urine Glucose (UA) Normal, Urine Ketones Negative, Urine Occult Blood 10 H, Urine Nitrite Negative, Urine Bilirubin Negative, Urine Urobilinogen Normal, Ur Leukocyte Esterase Negative, Urine RBC 0-5 SEEN, Urine WBC 0-5 SEEN, Ur Squamous Epith Cells 0-5 SEEN, Urine Bacteria 0 SEEN, Urine Mucus 0 SEEN Imaging Radiology Impression Abdomen/Pelvis CT 12/07/24 18:10 IMPRESSION: 1. No acute or active inflammatory intra-abdominal pathology identified. 2. Moderate-large colonic stool burden suggesting constipation. 3. No significant change in multiple right renal mass lesions as noted. Recommend follow-up. Reading Location: [id number] Imaging Services [address] [place] [address] [id number] Extremity Upper without Contra MR#: [id number] Acct: [id number] Name: LEONEL ANDER (BONNIE) Blayne Rep #: [id number] : 1945 F 79 From: Evelio Ghosh MD PCP: Dr. Femi Baeza MD Status: ADM IN Study: Extremity Upper without Contra Date of Exam: 12/08/24 Exam# [id number] Ordering Dr: Ranjeet Aldana DO PROCEDURE: EXTREMITY UPPER WITHOUT CONTRA 12/08/2024 REASON FOR EXAM: EXPECTED TURN ROTATOR CUFF TECHNIQUE: Procedure Code: CTEUWO Modality: CT Procedure: EXTREMITY UPPER WITHOUT CONTRA Coronal and Sagittal reconstruction series were provided. One or more dose reduction techniques were used (e.g., Automated exposure control, adjustment of the mA and/or kV according to patient size, use of iterative reconstruction technique. FINDINGS: No acute fracture or dislocation. There is a high riding humeral head with severe subacromial space narrowing. The humeral head contacts the inferior surface of the acromion. Additional degenerative changes including marginal osteophytosis and subchondral cyst formation are noted within the humeral head. There is borderline widening of the acromioclavicular joint, measuring 5.4 mm. Grossly, the acromioclavicular ligament appears intact. Additional degenerativechanges are noted at the glenohumeral joint including joint space narrowing, subchondral cyst formation, and marginal osteophytosis. Moderate degenerative changes are noted within the visualized cervicothoracic spine including joint space narrowing, small Schmorl's nodes, and marginal osteophytosis. CT/Extremity Upper without Contra IMPRESSION: 1. High-riding humeral head with severe subacromial space narrowing, suggestiveof a chronic rotator cuff injury. 2. Moderate degenerative changes at the acromioclavicular joint. 3. Borderline widening of the acromioclavicular joint. Reading Location: [facility] Assessment & Plan Assessment/Plan (1) Acute hyponatremia: (2) Hypokalemia: (3) Adverse drug reaction: QUALIFIERS: Encounter type: initial encounter Qualified Code(s): T50.905A - Adverse effect of unspecified drugs, medicaments and biological substances, initial encounter (4) Acute constipation: (5) History of chronic constipation: (6) Colonic stricture: (7) Generalized weakness: (8) History of primary transitional cell carcinoma of left kidney: (9) History of partial nephrectomy: PLAN: Plan 1. Hyponatremia of 127 mmol/L with Hypokalemia of 3.2 mmol/L both present on admission - Admit to PCU. Continue NS IVF with supplemental KCl. Patient was also treated with additional oral KCl in ER. Check urine and serum osmolality. Normal urine specific gravity of 1.01 present on admission noted. Give acetaminophen prn for pain or fever. Give ondansetron IV prn for nausea and vomiting. 2. Adverse Drug Reaction to hydrochlorothiazide likely causing #1 - Stop hydrochlorothiazide and add to list of allergies to prevent recurrence. 3. [id number]-Bfdeykl Constipation with colonic stricture complicating #1 & #2 inthe setting of previously known IBS; of constipation-type on linaclotide plus lactulose TID - Maintain current bowel regimen plus give soap suds enema to encourage bowel evacuation. 4. Generalized Weakness attributable to #1 - #3 in the setting of previously diagnosed OA; s/p TKR and sciatica with scoliosis and lumbar radiculopathy - PT/OT and Case Management to consult and treat on-rounds in AM for further recommendations with help appreciated in advance. Check CT scan of the Right shoulder to confirm suspected Right rotator cuff tear after recent steroid injection by orthopod. 5. History of renal cell carcinoma; s/p partial Left nephrectomy (2011) with corresponding CT scan of the abdomen and pelvis with IV contrast that revealed no acute or active inflammatory intra-abdominal pathology identified with moderate- large colonic stool burden suggesting constipation and no significant change in Multiple Right Renal Mass Lesions with follow-up recommended compounding #1 - #4 - Patient would likely benefit from formal oncology consultation at time of discharge. Finally, we will consult Dr. Negro of urology to see this patient on-rounds in the AM for further recommendations regarding potential Right partial nephrectomy with help appreciated in advance. 6. Essential hypertension; on losartan BID, diltiazem and hydrochlorothiazide -Continue home regimen (except HCTZ) plus give prn IV hydralazine for systolic blood pressure > 160 mmHg. 7. Former tobacco abuse - Noted. 8. OAB with history of bladder prolapse; on oxybutynin BID - Resume oxybutynin as before. 9. Depression with anxiety; on lorazepam daily - Continue prn lorazepam as previous. 10. Osteoporosis; on vitamin D3 plus denosumab q. 6 months - Maintain vitamin D3 and restart denosumab as outpatient. 11. History of primary hyperparathyroidism - Stable with normal serum calcium of 10.4 mg/dL present on admission. 12. Seasonal allergies; on cetirizine, fexofenadine and fluticasone NS - Current therapy to continue. 13. GERD; on omeprazole - Maintain PPI. 14. History of diverticulosis; s/p colonoscopy (03/2024) - Noted. 15. History of bowel obstruction - Noted with no evidence of recurrence on abdominal/pelvic CT this admission. 16. History of cholecystectomy - Noted. 17. Remote history of tubal ligation - Noted for the sake of completeness. 18. DVT prophylaxis - Enoxaparin 40 mg sq daily plus SCD's. Total time: Approximately (but not less than) 75 minutes. Charges/Coding Visit Charges Inpatient E&M: 14936 Init Hosp L3 12/08/24 0622 <Electronically signed by Ranjeet Aldana DO> Cosigner Signature (if applicable): CC: Dr. Ranjeet Aldana DO; Dr. Femi Baeza MD~ Signed [facility] Work Phone: [phone]) 712-917110-07-2025 History and physical note [facility] Medical Records Department [address] [place] [address] H&P Exam - Hospitalist 12/07/242116 MR#: [id number] Acct: [id number] Name: LEONEL ANDRE (BONNIE) Rep #: [id number] : 1945 79 From: Ranjeet Colon DO PCP: Dr. Femi Baeza MD Status:A DM IN Location: [place] [id number] HPI - General General Date of Admission: 12/07/24 Date of Service: 12/07/24 Chief Complaint: Constipation, Nausea and Generalized Weakness. HPI Narrative LEONEL ANDRE (BONNIE), is a 79 F with a past medical history of essential hypertension; on losartan BID, diltiazem and hydrochlorothiazide, former tobaccoabuse, IBS; of constipation-type on linaclotide plus lactulose TID, OAB with history of bladder prolapse; on oxybutynin BID, depression with anxiety; on lorazepam daily, osteoporosis; on vitamin D3 plus denosumab q. 6 months, historyof primary hyperparathyroidism, seasonal allergies; on cetirizine, fexofenadine and fluticasone NS, GERD; on omeprazole, history of diverticulosis and colonic stricture; s/p colonoscopy (03/2024), history of bowel obstruction, history of cholecystectomy, remote history of tubal ligation, OA; s/p TKR and sciatica withscoliosis and lumbar radiculopathy plus history of renal cell carcinoma; s/p partial Left nephrectomy (2011) who presents to [facility] ER complaining of constipation, nausea and generalized weakness. Ms. Adnre reports her symptoms began approximately 3-4 days prior to admission with acute worsening of chronic constipation in spite of taking linaclotide and lactulose. She states she has taken polyethylene glycol in the past which did not help her. She admits to having a large bowel movement earlier today that was painful with a large stool burden which left her feeling shaky and generally weak overall. She states she has been eating normally and denies vomiting. She also admits to pain inher right shoulder since a fall in August with multiple providers having evaluated her for this with suspicion for a possible rotator cuff tear with recent steroid injection by orthopedist Dr. Luciano on November 09, 2024. She denies associated fever, chills, changes in vision, discharge from eyes, chest pain, palpitations, heart racing, lower extremity edema, shortness of breath, cough, dysuria, hematuria, headache or rash. In the ER she was noted to have Hyponatremia of 127 mmol/L with Hypokalemia of 3.2 mmol/L present on admission both due to suspected Adverse Drug Reaction to hydrochlorothiazide with a corresponding CT scan of the abdomenand pelvis with IV contrast that revealed no acute or active inflammatory intra-abdominal pathology identified with moderate-large colonic stool burdensuggesting constipation and no significant change in Multiple Right Renal Mass Lesions with follow-up recommended complicated by clinical evidence of Acute-on Chronic Constipation compounded by Generalized Weakness. She was then admitted to the PCU for ongoing care for status is expected to extend beyond 2 midnights. [facility] Medical History Wears glasses Cancer Anxiety Ambulates [...] (vitamin D3) 25 2,000 unit PO DAILY HARDIN PPLEMENT 12/26/15 12/06/24 History mcg (1,000 unit) tablet (Vitamin D3) oxybutynin chloride 5 mg tablet 5 mg PO BID BLADDER 12/07/24 History diltiazem HCl 180 mg capsule,24 360 mg PO DAILY htn 12/07/24 History hr,extended release lorazepam 0.5 mg tablet 0.5 mg PO DAILY ANXIETY /10/2212/07/24 History acetaminophen 500 mg tablet 500 mg PO Q6H PRN pain 12/07/24 History (Tylenol Extra Strength) cetirizine 5 mg tablet 5 mg PO DAILY PRN allergy sy mptoms 08/23/22 Unknown History fluticasone propionate 50 1 spray intranasal DAILY PRN 08/23/22 Unknown History mcg/actuation nasal allergy symptoms spray,suspension omeprazole 40 mg capsule,delayed 40 mg PO DAILY GERD 0 08/23/22 12/06/24 History release denosumab 60 mg/mL subcutaneous 60 mg subcut [id number] OSTEOPOROSIS 10/03/22 Unknown Rx syringe (Prolia) #1 mL Lactobacillus rhamnosus GG 20 1 cell PO DAILY GUT HEAL TH 12/16/23 12/06/24 History billion cell capsule (Probiotic Digestive Care) ondansetron 8 mg disintegrating 8 mg PO Q8H PRN nausea and 02/21/24 Unknown Rx tablet vomiting #15 tabs losartan 50 mg tablet 50 mg PO BID HTN 06/08/24 History docusate sodium 100 mg capsule 100 mg PO TID constipat ion #90 caps 08/11/24 12/07/24 Rx linaclotide 145 mcg capsule 145 mcg PO QAM IBS #30 cap s 11/09/24 12/07/24 Rx (Linzess) lactulose 10 gram/15 mL oral 10 g (15 mL) PO TID CONST IPATION 11/13/24 12/07/24 Rx solution #1,200 mL dextrin 3 gram/4 gram oral powder 3 g PO DAILY constip ation 12/07/24 Unknown History (Clear Fiber) fexofenadine 180 mg tablet 180 mg PO DAILY ALLERGY SYM PTOMS 12/07/24 12/06/24 History (Louisa Allergy) hydrochlorothiazide 50 mg tablet 50 mg PO DAILY DIURET IC 12/07/24 12/07/24 History olopatadine 0.2 % eye drops 1 drp EACH EYE DAILY aller gies 12/07/24 Unknown History (Pataday Once Daily Relief) sennosides 17.2 mg tablet (Senokot 17.2 mg PO DAILY co nstipation 12/07/24 Unknown History Extra Strength) sennosides 17.2 mg tablet (Senokot 34.4 mg PO QHS cons tipation 12/07/24 Unknown History Extra Strength) Allergy/AdvReac Type Severity Reaction Status Date / Time lisinopril Allergy Swelling Verified 12/07/24 16:06 hydrochlorothiazide AdvReac Intermediate Hyponatremia Verified 12/07/24 21:39 and Hypokalemia esomeprazole (From Nexium) AdvReac Nausea/Vom/ Verified 12/07/24 16:06 Diarrhea Family History Father Alcoholism Brother Alcoholism Mother Arthritis Hypertension Osteoporosis Surgical History Hx of colonoscopy History of tubal ligation History of cholecystectomy History of knee replacement H/O partial nephrectomy Social History Smoking Status: Former smoker alcohol intake: never what type of physical activity do you participate in: bicycling ROS ROS Narrative Review of Systems: Constitutional: Patient denies fever or chills. Eyes: Patient denies changes in vision or discharge from eyes. ENT: Patient denies runny nose, sore throat or ear pain. Resp: Patient denies shortness of breath or cough. CV: Patient denies chest pain, palpitations, heart racing or lower extremity edema. GI: Patient admits to nausea and constipation but is still having bowel movements as per HPI. She denies vomiting or abdominal pain. : Patient denies dysuria or hematuria. MSK: Patient admits to generalized weakness but she denies arthralgias or myalgias. Skin: Patient denies rash, abscess, wounds or jaundice. Psych: Patient denies symptoms uncontrolled depression or anxiety. Neuro: Patient denies headache, paresthesias or focal neurologic deficits. Allergy: Patient denies lip swelling, tongue swelling or urticaria. Hematology: Patient denies easy bleeding or easy bruisability. Endocrinology: Patient denies polyuria, polydipsia, polyphagia or heat/cold intolerance. 14 point ROS otherwise negative except for positives noted above in HPI. Vital Signs Vital Signs Vital Signs: 12/07/24 16:06 12/07/24 16:39 12/07/24 18:05 Temperature 98.1 F Temperature Source Temporal Pulse Rate 85 56 L Respiratory Rate 24 H 16 Respiratory Effort Normal Respiratory Pattern Normal Blood Pressure 167/102 H 145/74 H Blood Pressure Mean 123 97 Pulse Ox 98 100 Oxygen Delivery Method Room Air Room Air 12/07/24 20:00 12/07/24 21:16 Temperature 98.1 F Temperature Source Pulse Rate 59 L 59 L Respiratory Rate 18 18 Respiratory Effort Respiratory Pattern Blood Pressure 125/83 H 125/83 H Blood Pressure Mean 97 97 Pulse Ox 100 100 Oxygen Delivery Method Room Air Weight Weight: 118 lb 9.739 oz Body Mass Index (BMI) 20.3 Physical Exam Const alert, oriented x3, no apparent distress and average body habitus Constitutional Narrative: Patient appears frail and chronically ill but nontoxic. General Appearance: cooperative HEENT normocephalic, head/scalp atraumatic, hearing grossly normal bilaterally and moist oral mucous membranes Eyes PERRL, EOMs intact bilaterally and conjunctivae normal Neck no lymphadenopathy, supple and no JVD Resp normal respiratory effort, no retractions, no use of accessory muscles and clearto auscultation bilaterally Cardio regular rate and regular rhythm GI soft to palpation and non-distended GI Narrative: Patient noted generalized mild tenderness to palpation throughout her abdomen. Extremity normal to inspection, full ROM and no clubbing, cyanosis or edema Skin Skin Narrative: Patient has evidence of rash, abscess, wounds or jaundice. Neuro oriented x3, CN's II-XII intact bilaterally, moves all extremities and no focal motor deficits Sensorium / Orientation: awake, alert, oriented to person, oriented to place andoriented to time Speech: speech normal Psych affect normal Results Medical Records Data Attestation: I reviewed the patient's medical records Lab / Micro Data Attestation: I reviewed the patient's lab results. 12/08/24 04:53 12/07/24 16:46 Labs: Laboratory Results - last 24 hr 12/07/24 16:46: WBC 7.0, RBC 4.51, Hgb 13.5, Hct 38.9, MCV 86.3, MCH 29.9, MCHC 34.7, RDW Std Deviation 39.8, RDW Coeff of Sharron 12.7, Plt Count 223, MPV 9.8, Immature Gran % (Auto) 0.100, Neut % (Auto) 63.7, Lymph % (Auto) 12.9 L, Rolette % (Auto) 8.3, Eos % (Auto) 14.4 H, Baso % (Auto) 0.6, Absolute Neuts (auto) 4.5, Absolute Lymphs (auto) 0.90, Nucleated RBC % 0, Differential Comment SCANNED, Platelet Estimate ADEQUATE, Sodium 127 L, Potassium 3.2 L, Chloride 88 L, CarbonDioxide 25.1, Anion Gap 14, BUN 20 H, Creatinine 0.57 L, Estim Creat Clear Calc 49.22 L, Est GFR (MDRD) Non-Af 93, BUN/Creatinine Ratio 35.4 H, Glucose 128 H, Calcium 10.4, Total Bilirubin 0.44, AST 18, ALT 16, Alkaline Phosphatase 56, Total Protein 7.0, Albumin 4.5, Globulin 2.4, Albumin/Globulin Ratio 1.9, [id number] 12/07/24 16:57: Urine Color Straw, Urine Clarity Clear, Urine pH 7.0, Ur Specific Rein[place] 1.010, Urine Protein 15 H, Urine Glucose (UA) Normal, Urine Ketones Negative, Urine Occult Blood 10 H, Urine Nitrite Negative, Urine Bilirubin Negative, Urine Urobilinogen Normal, Ur Leukocyte Esterase Negative, Urine RBC 0-5 SEEN, Urine WBC 0-5 SEEN, Ur Squamous Epith Cells 0-5 SEEN, Urine Bacteria 0 SEEN, Urine Mucus 0 SEEN Imaging Radiology Impression Abdomen/Pelvis CT 12/07/24 18:10 IMPRESSION: 1. No acute or active inflammatory intra-abdominal pathology identified. 2. Moderate-large colonic stool burden suggesting constipation. 3. No significant change in multiple right renal mass lesions as noted. Recommend follow-up. Reading Location: [facility] Imaging Services [address] [place] [id number] Extremity Upper without Contra MR#: [id number] Acct: [id number] Name: LEONEL ANDRE (BONNIE) Rep #: [id number] : 1945 F 79 From: Evelio Ghosh MD PCP: Dr. Femi Baeza MD Status: ADM IN Study: Extremity Upper without Contra Date of Exam: 12/08/24 Exam# [id number] Ordering Dr: Ranjeet Aldana DO PROCEDURE: EXTREMITY UPPER WITHOUT CONTRA 12/08/2024 REASON FOR EXAM: EXPECTED TURN ROTATOR CUFF TECHNIQUE: Procedure Code: CTEUWO Modality: CT Procedure: EXTREMITY UPPER WITHOUT CONTRA Coronal and Sagittal reconstruction series were provided. One or more dose reduction techniques were used (e.g., Automated exposure control, adjustment of the mA and/or kV according to patient size, use of iterative reconstruction technique. FINDINGS: No acute fracture or dislocation. There is a high riding humeral head with severe subacromial spacenarrowing. The humeral head contacts the inferior surface of the acromion. Additional degenerative changes including marginal osteophytosis and subchondral cyst formation are noted within the humeral head. There is borderline widening of the acromioclavicular joint, measuring 5.4 mm. Grossly, the acromioclavicular ligament appears intact. Additional degenerativechanges are noted atthe glenohumeral joint including joint space narrowing, subchondral cyst formation, and marginal osteophytosis. Moderate degenerative changes are noted within the visualized cervicothoracic spine including jointspace narrowing, small Schmorl's nodes, and marginal osteophytosis. CT/Extremity Upper without Contra IMPRESSION: 1. High-riding humeral head with severe subacromial space narrowing, suggestiveof a chronic rotatorcuff injury. 2. Moderate degenerative changes at the acromioclavicular joint. 3. Borderline widening of the acromioclavicular joint. Reading Location: [facility] Assessment & Plan Assessment/Plan (1) Acute hyponatremia: (2) Hypokalemia: (3) Adverse drug reaction: QUALIFIERS: Encounter type: initial encounter Qualified Code(s): T50.905A - Adverse effect of unspecified drugs, medicaments and biological substances, initial encounter (4) Acute constipation: (5) History of chronic constipation: (6) Colonic stricture: (7) Generalized weakness: (8) History of primary transitional cell carcinoma of left kidney: (9) History of partial nephrectomy: PLAN: Plan 1. Hyponatremia of 127 mmol/L with Hypokalemia of 3.2 mmol/L both present on admission - Admit to PCU. Continue NS IVF with supplemental KCl. Patient was also treated with additional oral KCl in ER. Check urine and serum osmolality. Normal urine specific gravity of 1.01 present on admission noted. Give acetaminophen prn for pain or fever. Give ondansetron IV prn for nausea and vomiting. 2. Adverse Drug Reaction to hydrochlorothiazide likely causing #1 - Stop hydrochlorothiazide and add to list of allergies to prevent recurrence. 3. Soizo-zr-Rokbkog Constipation with colonic stricture complicating #1 & #2 inthe setting of previously known IBS; of constipation-type on linaclotide plus lactulose TID - Maintain current bowelregimen plus give soap suds enema to encourage bowel evacuation. 4. Generalized Weakness attributable to #1 - #3 in the setting of previously diagnosed OA; s/p TKR and sciatica with scoliosis and lumbar radiculopathy - PT/OT and Case Management to consult and treat on-rounds in AM for further recommendations with help appreciated in advance. Check CT scan of theRight shoulder to confirm suspected Right rotator cuff tear after recent steroid injection by orthopod. 5. History of renal cell carcinoma; s/p partial Left nephrectomy (2011) with corresponding CT scan of the abdomen and pelvis with IV contrast that revealed no acute or active inflammatory intra-abdominal pathology identified with moderate-large colonic stool burden suggesting constipation and no significant change in Multiple Right Renal Mass Lesions with follow-up recommended compounding #1 - #4- Patient would likely benefit from formal oncology consultation at time of discharge. Finally, we will consult Dr. Negro of urology to see this patient on-rounds in the AM for further recommendations regarding potential Right partial nephrectomy with help appreciated in advance. 6. Essential hypertension; on losartan BID, diltiazem and hydrochlorothiazide - Continue home regimen (except HCTZ) plus give prn IV hydralazine for systolic blood pressure > 160 mmHg. 7. Former tobacco abuse - Noted. 8. OAB with history of bladder prolapse; on oxybutynin BID - Resume oxybutynin as before. 9. Depression with anxiety; on lorazepam daily - Continue prn lorazepam as previous. 10. Osteoporosis; on vitamin D3 plus denosumab q. 6 months - Maintain vitamin D3 and restart denosumab as outpatient. 11. History of primary hyperparathyroidism - Stable with normal serum calcium of 10.4 mg/dL presenton admission. 12. Seasonal allergies; on cetirizine, fexofenadine and fluticasone NS - Current therapy to continue. 13. GERD; on omeprazole - Maintain PPI. 14. History of diverticulosis; s/p colonoscopy (03/2024) - Noted. 15. History of bowel obstruction - Noted with no evidence of recurrence on abdominal/pelvic CT thisadmission. 16. History of cholecystectomy - Noted. 17. Remote history of tubal ligation - Noted for the sake of completeness. 18. DVT prophylaxis - Enoxaparin 40 mg sq daily plus SCD's. Total time: Approximately (but not less than) 75 minutes. Charges/Coding Visit Charges Inpatient E&M: 40706 Init Hosp 12/08/24 0622 Cosigner Signature (if applicable): CC: Dr. Ranejet Aldana DO; Dr. Femi Baeza MD~ Signed [facility]10-07-2025 Radiology Diagnostic study note [facility] Imaging Services [address] [place] [address] Extremity Upper without Contra MR#: [id number] Acct: [id number] Name: LEONEL ANDRE (BONNIE) Blayne Rep #: [id number] : 1945 F 79 From: Amol Ghosh MD PCP: Dr. Femi Baeza MD Status: A DM IN Study:Extremity Upper without Contra Date of Exam: 12/08/24 Exam# [id number] Ordering Dr: Ranjeet Ruiz DO PROCEDURE: EXTREMITY UPPER WITHOUT CONTRA 12/08/2024 REASON FOR EXAM: EXPECTED TURN ROTATOR CUFF TECHNIQUE: Procedure Code: CTEUWO Modality: CT Procedure: EXTREMITY UPPER WITHOUT CONTRA Coronal and Sagittal reconstruction series were provided. One or more dose reduction techniques were used (e.g., Automated exposure control, adjustment of the mA and/or kV according to patient size, use of iterative reconstruction technique. FINDINGS: No acute fracture or dislocation. There is a high riding humeral head with severe subacromial spacenarrowing. The humeral head contacts the inferior surface of the acromion. Additional degenerative changes including marginal osteophytosis and subchondral cyst formation are noted within the humeral head. There is borderline widening of the acromioclavicular joint, measuring 5.4 mm. Grossly, the acromioclavicular ligament appears intact. Additional degenerativechanges are noted atthe glenohumeral joint including joint space narrowing, subchondral cyst formation, and marginal osteophytosis. Moderate degenerative changes are noted within the visualized cervicothoracic spine including jointspace narrowing, small Schmorl's nodes, and marginal osteophytosis. CT/Extremity Upper without Contra IMPRESSION: 1. High-riding humeral head with severe subacromial space narrowing, suggestiveof a chronic rotatorcuff injury. 2. Moderate degenerative changes at the acromioclavicular joint. 3. Borderline widening of the acromioclavicular joint. Reading Location: [facility] CC: Dr. Ranjeet Aldana DO; Dr. Femi Baeza MD ~ Chief School Finance Officer: Signed [facility]10-06-2025 Discharge summary Author Juan Shaffer [facility] Note Date/Time December 07, 2024 9: 19pm [facility] Medical Records Department [address] [place] [address] Emergency Department Summary 12/07/24 MR#: [id number] Acct: [id number] Name: LEONEL ANDRE (BONNIE) Blayne Rep #: [id number] : 1945 79 From: Juan Shaffer DO PCP: Dr. Femi Baeza MD Status:R EG ER Location: ED HPI History of Present Illness Chief Complaint: Weakness Narrative Narrative: Patient is a 79-year-old female with past medical history of anxiety, cancer, GERD, primary hyperparathyroidism, bowel obstruction, osteoporosis, hypertension who presented to the emergency department chief complaint of constipation and diarrhea. States that she has chronic constipation and she is on Linzess currently as well as some other medications for constipation. States that MiraLAX did not help her in the past. States that she has had previous abdominal surgeries including tubal ligation as well as cholecystectomy. Patient states that she had bowel movement earlier today however notes that lately they have been painful and is large stool burden while having the bowel movement. She states that she also feels very shaky and weak overall. States that she has been eating denies any vomiting. States that she lives with her 2 sons. In triage noted notes that she was having pain in her right shoulder which she explained to me and after clarifying states that she had a fall in August and has been having ongoing pain since then and has seen multiple providersfor this and there is suspicion that she tore her rotator cuff. She states thatshe is here today for weakness and constipation as well as nausea. [facility] Medical History Wears glasses Cancer Anxiety Ambulates [...] (vitamin D3) 25 2,000 unit PO DAILY HARDIN PPLEMENT 12/26/15 12/06/24 History mcg (1,000 unit) tablet (Vitamin D3) oxybutynin chloride 5 mg tablet 5 mg PO BID BLADDER 12/07/24 History diltiazem HCl 180 mg capsule,24 360 mg PO DAILY htn 12/07/24 History hr,extended release lorazepam 0.5 mg tablet 0.5 mg PO DAILY ANXIETY 10/2212/07/24 History acetaminophen 500 mg tablet 500 mg PO Q6H PRN pain 12/07/24 History (Tylenol Extra Strength) cetirizine 5 mg tablet 5 mg PO DAILY PRN allergy sy mptoms 08/23/22 Unknown History fluticasone propionate 50 1 spray intranasal DAILY PRN 08/23/22 Unknown History mcg/actuation nasal allergy symptoms spray,suspension omeprazole 40 mg capsule,delayed 40 mg PO DAILY GERD 0 08/23/22 12/06/24 History release denosumab 60 mg/mL subcutaneous 60 mg subcut [id number] OSTEOPOROSIS 10/03/22 Unknown Rx syringe (Prolia) #1 mL Lactobacillus rhamnosus GG 20 1 cell PO DAILY GUT HEAL TH 12/16/23 12/06/24 History billion cell capsule (Probiotic Digestive Care) ondansetron 8 mg disintegrating 8 mg PO Q8H PRN nausea and 02/21/24 Unknown Rx tablet vomiting #15 tabs losartan 50 mg tablet 50 mg PO BID HTN 06/08/24 History docusate sodium 100 mg capsule 100 mg PO TID constipat ion #90 caps 08/11/24 12/07/24 Rx linaclotide 145 mcg capsule 145 mcg PO QAM IBS #30 cap s 11/09/24 12/07/24 Rx (Linzess) lactulose 10 gram/15 mL oral 10 g (15 mL) PO TID CONST IPATION 11/13/24 12/07/24 Rx solution #1,200 mL fexofenadine 180 mg tablet 180 mg PO DAILY ALLERGY SYM PTOMS 12/07/24 12/06/24 History (Louisa Allergy) hydrochlorothiazide 50 mg tablet 50 mg PO DAILY DIURET IC 12/07/24 12/07/24 History Allergy/AdvReac Type Severity Reaction Status Date / Time lisinopril Allergy Swelling Verified 12/07/24 16:06 esomeprazole (From Nexium) AdvReac Nausea/Vom/ Verified 12/07/24 16:06 Diarrhea Family History Father Alcoholism Brother Alcoholism Mother Arthritis Hypertension Osteoporosis Surgical History Hx of colonoscopy History of tubal ligation History of cholecystectomy History of knee replacement H/O partial nephrectomy Social History Smoking Status: Former smoker alcohol intake: never what type of physical activity do you participate in: bicycling ROS ROS ED ROS Narrative Constitutional: Denies any fevers, chills, headaches Eyes: Denies double vision Cardiovascular: Denies chest pain Respiratory: Denies coughing wheezing shortness of breath Abdomen: Complains of nausea and constipation as noted above states that she is having bowel movements however she notes that she is constipated however she is chronically constipated : Denies any urinary symptoms Neurological: Complains of generalized weakness denies numbness, tingling Musculoskeletal: Denies back pain Skin: Denies any rashes or lesions EXAM Physical Exam Narrative Exam Narrative: General: Patient lying in bed resting comfortably did not appear to be acute distress Head: Atraumatic, normocephalic Eyes: PERRL bilaterally, EOMI bilaterally, no conjunctival injection noted Neck: Soft, supple, trachea midline Cardiovascular: Regular rate and rhythm Respiratory: Clear to auscultation bilaterally Abdomen: Soft, nondistended, mild tenderness patient diffusely throughout her abdomen does appear constipated as hard stool is noted on exam Extremities: +4/5 strength noted in the bilateral upper and lower extremities, no pedal edema on exam Neurological: Patient following commands knew that she was at [facility] years 2024 Skin: Warm, dry, tact no rashes or lesions noted Const Vital Signs: 12/07/24 16:06 12/07/24 16:39 12/07/24 18:05 Temperature 98.1 F Temperature Source Temporal Pulse Rate 85 56 L Respiratory Rate 24 H 16 Respiratory Effort Normal Respiratory Pattern Normal Blood Pressure 167/102 H 145/74 H Blood Pressure Mean 123 97 Pulse Ox 98 100 Oxygen Delivery Method Room Air Room Air 12/07/24 20:00 12/07/24 21:16 Temperature 98.1 F Temperature Source Pulse Rate 59 L 59 L Respiratory Rate 18 18 Respiratory Effort Respiratory Pattern Blood Pressure 125/83 H 125/83 H Blood Pressure Mean 97 97 Pulse Ox 100 100 Oxygen Delivery Method Room Air MDM MDM MDM Narrative Medical decision making narrative: Patient is a 79-year-old female who presented to the emergency department chief complaint of constipation and nausea. On the differential diagnosis includes but limited to bowel obstruction, constipation, electrolyte abnormality. Once workup is obtained reviewed she will be reevaluated. Patient CBC reviewed and showed no evidence leukocytosis white blood count normal at 7, hemoglobin 13.5, platelet count of 223. Patient sodium was noted to be 127 indicated hyponatremia, potassium low at 3.2 she will be given 40 millequivalents of oral supplementation here in the emergency department, creatininewas 0.57. Patient's AST and ALT were 18 and 16 respectively, lipase was 16. Patient's urinalysis reviewed and showed no evidence of infection. Patient CT ab pelvis with IV contrast was reviewed and showed no acute or active inflammatory intra-abdominal pathology there is a moderate large colonic stool burden suggesting constipation no significant change in multiple right renal mass lesions as noted. I went back in to reevaluate the patient and she states that she feels worse than when she came in she feels weaker and more shaky. She also states that sheis nauseous as well. At this point time will discuss case with hospitalist for admission for generalized weakness, hyponatremia, constipation. Discussed case with hospitalist Dr. Enamorado who will accept patient for admission. Patient was notified is agreeable this plan all question concerns answered. Lab Data Labs: Laboratory Results - last 24 hr 12/07/24 12/07/24 16:46 16:57 WBC 7.0 RBC 4.51 Hgb 13.5 Hct 38.9 MCV 86.3 MCH 29.9 MCHC 34.7 RDW Std Deviation 39.8 RDW Coeff of Sharron 12.7 Plt Count 223 MPV 9.8 Immature Gran % (Auto) 0.100 Neut % (Auto) 63.7 Lymph % (Auto) 12.9 L Rolette % (Auto) 8.3 Eos % (Auto) 14.4 H Baso % (Auto) 0.6 Absolute Neuts (auto) 4.5 Absolute Lymphs (auto) 0.90 Nucleated RBC % 0 Differential Comment SCANNED Platelet Estimate ADEQUATE Sodium 127 L Potassium 3.2 L Chloride 88 L Carbon Dioxide 25.1 Anion Gap 14 BUN 20 H Creatinine 0.57 L Estim Creat Clear Calc 49.22 L Est GFR (MDRD) Non-Af 93 BUN/Creatinine Ratio 35.4 H Glucose 128 H Calcium 10.4 Total Bilirubin 0.44 AST 18 ALT 16 Alkaline Phosphatase 56 Total Protein 7.0 Albumin 4.5 Globulin 2.4 Albumin/Globulin Ratio 1.9 Lipase 16 Urine Color Straw Urine Clarity Clear Urine pH 7.0 Ur Specific [place] 1.010 Urine Protein 15 H Urine Glucose (UA) Normal Urine Ketones Negative Urine Occult Blood 10 H Urine Nitrite Negative Urine Bilirubin Negative Urine Urobilinogen Normal Ur Leukocyte Esterase Negative Urine RBC 0-5 SEEN Urine WBC 0-5 SEEN Ur Squamous Epith Cells 0-5 SEEN Urine Bacteria 0 SEEN Urine Mucus 0 SEEN Radiography Diagnostic Testing: Clinical Impression(s) from Imaging Studies Abdomen/Pelvis CT 12/07/24 18:10 IMPRESSION: 1. No acute or active inflammatory intra-abdominal pathology identified. 2. Moderate-large colonic stool burden suggesting constipation. 3. No significant change in multiple right renal mass lesions as noted. Recommend follow-up. Reading Location: [facility] Discharge Plan Dx/Rx/DC Orders Clinical Impression: Benign essential hypertension, Primary hyperparathyroidism, Constipation, Hypokalemia, Acute hyponatremia, Generalized weakness Disposition Disposition: Acute Care Hospital [facility] What to do if you have Problems For any increased pain, shortness of breath, bleeding, nausea or vomiting, chestpain, or any unexpected problems, contact your Primary Care Provider. Call [facility] ([phone]) or report to the closest Emergency Room. Call 911 if necessary. 12/07/242118 <Electronically signed by Juan Shaffer DO> Cosigner Signature (if applicable): CC: Dr. Femi Baeza MD ~ Signed [facility] Work Phone: [phone] 472-880010-06-2025 Discharge summary [facility] Medical Records Department [address] [place] [id number] Emergency Department Summary 12/07/24 MR#: [id number] Acct: [id number] Name: LEONEL ANDRE (BONNIE) Rep #: [id number] : 1945 79 From: Juan Shaffer DO PCP: Dr. Femi Baeza MD Status:R ER Location: ED HPI History of Present Illness Chief Complaint: Weakness Narrative Narrative: Patient is a 79-year-old female with past medical history of anxiety, cancer, GERD, primary hyperparathyroidism, bowel obstruction, osteoporosis, hypertension who presented to the emergency department chief complaint of constipation and diarrhea. States that she has chronic constipation and she is on Linzess currently as well as some other medications for constipation. States that MiraLAX did nothelp her in the past. States that she has had previous abdominal surgeries including tubal ligationas well as cholecystectomy. Patient states that she had bowel movement earlier today however notes that lately they have been painful and is large stool burden while having the bowel movement. She sta ike that she also feels very shaky and weak overall. States that she has been eating denies any vomiting. States that she lives with her 2 sons. In triage noted notes that she was having pain in her right shoulder which she explained to me and after clarifying states that she had a fall in August andhas been having ongoing pain since then and has seen multiple providersfor this and there is suspicion that she tore her rotator cuff. She states thatshe is here today for weakness and constipation as well as nausea. [facility] Medical History Wears glasses Cancer Anxiety Ambulates [...] (vitamin D3) 25 2,000 unit PO DAILY HARDIN PPLEMENT 12/26/15 12/06/24 History mcg (1,000 unit) tablet (Vitamin D3) oxybutynin chloride 5 mg tablet 5 mg PO BID BLADDER 12/07/24 History diltiazem HCl 180 mg capsule,24 360 mg PO DAILY htn 12/07/24 History hr,extended release lorazepam 0.5 mg tablet 0.5 mg PO DAILY ANXIETY 07/10/2212/07/24 History acetaminophen 500 mg tablet 500 mg PO Q6H PRN pain 12/07/24 History (Tylenol Extra Strength) cetirizine 5 mg tablet 5 mg PO DAILY PRN allergy sy mptoms 08/23/22 Unknown History fluticasone propionate 50 1 spray intranasal DAILY PRN 08/23/22 Unknown History mcg/actuation nasal allergy symptoms spray,suspension omeprazole 40 mg capsule,delayed 40 mg PO DAILY GERD 0 08/23/22 12/06/24 History release denosumab 60 mg/mL subcutaneous 60 mg subcut [id number] OSTEOPOROSIS 10/03/22 Unknown Rx syringe (Prolia) #1 mL Lactobacillus rhamnosus GG 20 1 cell PO DAILY GUT HEAL TH 12/16/23 12/06/24 History billion cell capsule (Probiotic Digestive Care) ondansetron 8 mg disintegrating 8 mg PO Q8H PRN nausea and 02/21/24 Unknown Rx tablet vomiting #15 tabs losartan 50 mg tablet 50 mg PO BID HTN 06/08/24 History docusate sodium 100 mg capsule 100 mg PO TID constipat ion #90 caps 08/11/24 12/07/24 Rx linaclotide 145 mcg capsule 145 mcg PO QAM IBS #30 cap s 11/09/24 12/07/24 Rx (Linzess) lactulose 10 gram/15 mL oral 10 g (15 mL) PO TID CONST IPATION 11/13/24 12/07/24 Rx solution #1,200 mL fexofenadine 180 mg tablet 180 mg PO DAILY ALLERGY SYM PTOMS 12/07/24 12/06/24 History (Louisa Allergy) hydrochlorothiazide 50 mg tablet 50 mg PO DAILY DIURET IC 12/07/24 12/07/24 History Allergy/AdvReac Type Severity Reaction Status Date / Time lisinopril Allergy Swelling Verified 12/07/24 16:06 esomeprazole (From Nexium) AdvReac Nausea/Vom/ Verified 12/07/24 16:06 Diarrhea Family History Father Alcoholism Brother Alcoholism Mother Arthritis Hypertension Osteoporosis Surgical History Hx of colonoscopy History of tubal ligation History of cholecystectomy History of knee replacement H/O partial nephrectomy Social History Smoking Status: Former smoker alcohol intake: never what type of physical activity do you participate in: bicycling ROS ROS ED ROS Narrative Constitutional: Denies any fevers, chills, headaches Eyes: Denies double vision Cardiovascular: Denies chest pain Respiratory: Denies coughing wheezing shortness of breath Abdomen: Complains of nausea and constipation as noted above states that she is having bowel movements however she notes that she is constipated however she is chronically constipated : Denies any urinary symptoms Neurological: Complains of generalized weakness denies numbness, tingling Musculoskeletal: Denies back pain Skin: Denies any rashes or lesions EXAM Physical Exam Narrative Exam Narrative: General: Patient lying in bed resting comfortably did not appear to be acute distress Head: Atraumatic, normocephalic Eyes: PERRL bilaterally, EOMI bilaterally, no conjunctival injection noted Neck: Soft, supple, trachea midline Cardiovascular: Regular rate and rhythm Respiratory: Clear to auscultation bilaterally Abdomen: Soft, nondistended, mild tenderness patient diffusely throughout her abdomen does appear constipated as hard stool is noted on exam Extremities: +4/5 strength noted in the bilateral upper and lower extremities, no pedal edema on exam Neurological: Patient following commands knew that she was at [facility] years 2024 Skin: Warm, dry, tact no rashes or lesions noted Const Vital Signs: 12/07/24 16:06 12/07/24 16:39 12/07/24 18:05 Temperature 98.1 F Temperature Source Temporal Pulse Rate 85 56 L Respiratory Rate 24 H 16 Respiratory Effort Normal Respiratory Pattern Normal Blood Pressure 167/102 H 145/74 H Blood Pressure Mean 123 97 Pulse Ox 98 100 Oxygen Delivery Method Room Air Room Air 12/07/24 20:00 12/07/24 21:16 Temperature 98.1 F Temperature Source Pulse Rate 59 L 59 L Respiratory Rate 18 18 Respiratory Effort Respiratory Pattern Blood Pressure 125/83 H 125/83 H Blood Pressure Mean 97 97 Pulse Ox 100 100 Oxygen Delivery Method Room Air MDM MDM MDM Narrative Medical decision making narrative: Patient is a 79-year-old female who presented to the emergency department chief complaint of constipation and nausea. On the differential diagnosis includes but limited to bowel obstruction, constipation, electrolyte abnormality. Once workup is obtained reviewed she will be reevaluated. Patient CBC reviewed and showed no evidence leukocytosis white blood count normal at 7, hemoglobin 13.5, platelet count of 223. Patient sodium was noted to be 127 indicated hyponatremia, potassium low at 3.2 she will be given 40 millequivalents of oral supplementation here in the emergency department, creatininewas 0.57. Patient's AST and ALT were 18 and 16 respectively, lipase was 16. Patient's urinalysis reviewed and showed no evidence of infection. Patient CT ab pelvis with IV contrast was reviewed and showed no acute or active inflammatory intra-abdominal pathology there is a moderate large colonic stool burden suggesting constipation no significant change in multiple right renal mass lesions as noted. I went back in to reevaluate the patient and she states that she feels worse than when she came in she feels weaker and more shaky. She also states that sheis nauseous as well. At this point time will discuss case with hospitalist for admission for generalized weakness, hyponatremia, constipation. Discussed case with hospitalist Dr. Enamorado who will accept patient for admission. Patient was notified is agreeable this plan all question concerns answered. Lab Data Labs: Laboratory Results - last 24 hr 12/07/24 12/07/24 16:46 16:57 WBC 7.0 RBC 4.51 Hgb 13.5 Hct 38.9 MCV 86.3 MCH 29.9 MCHC 34.7 RDW Std Deviation 39.8 RDW Coeff of Sharron 12.7 Plt Count 223 MPV 9.8 Immature Gran % (Auto) 0.100 Neut % (Auto) 63.7 Lymph % (Auto) 12.9 L Rolette % (Auto) 8.3 Eos % (Auto) 14.4 H Baso % (Auto) 0.6 Absolute Neuts (auto) 4.5 Absolute Lymphs (auto) 0.90 Nucleated RBC % 0 Differential Comment SCANNED Platelet Estimate ADEQUATE Sodium 127 L Potassium 3.2 L Chloride 88 L Carbon Dioxide 25.1 Anion Gap 14 BUN 20 H Creatinine 0.57 L Estim Creat Clear Calc 49.22 L Est GFR (MDRD) Non-Af 93 BUN/Creatinine Ratio 35.4 H Glucose 128 H Calcium 10.4 Total Bilirubin 0.44 AST 18 ALT 16 Alkaline Phosphatase 56 Total Protein 7.0 Albumin 4.5 Globulin 2.4 Albumin/Globulin Ratio 1.9 Lipase 16 Urine Color Straw Urine Clarity Clear Urine pH 7.0 Ur Specific Reinholds 1.010 Urine Protein 15 H Urine Glucose (UA) Normal Urine Ketones Negative Urine Occult Blood 10 H Urine Nitrite Negative Urine Bilirubin Negative Urine Urobilinogen Normal Ur Leukocyte Esterase Negative Urine RBC 0-5 SEEN Urine WBC 0-5 SEEN Ur Squamous Epith Cells 0-5 SEEN Urine Bacteria 0 SEEN Urine Mucus 0 SEEN Radiography Diagnostic Testing: Clinical Impression(s) from Imaging Studies Abdomen/Pelvis CT 12/07/24 18:10 IMPRESSION: 1. No acute or active inflammatory intra-abdominal pathology identified. 2. Moderate-large colonic stool burden suggesting constipation. 3. No significant change in multiple right renal mass lesions as noted. Recommend follow-up. Reading Location: [id number] Discharge Plan Dx/Rx/DC Orders Clinical Impression: Benign essential hypertension, Primary hyperparathyroidism, Constipation, Hypokalemia, Acute hyponatremia, Generalized weakness Disposition Disposition: Acute Care [facility] What to do if you have Problems For any increased pain, shortness of breath, bleeding, nausea or vomiting, chestpain, or any unexpected problems, contact your Primary Care Provider. Call [facility] ([phone]) or report tothe closest Emergency Room. Call 911 if necessary. 12/07/242118 Cosigner Signature (if applicable): CC: Dr. Femi Baeza MD ~ Signed [facility]10-06-2025 Radiology Diagnostic study note [facility] Imaging Services [address] [place] [address] Abdomen/Pelvis W IV Cont ONLY MR#: [id number] Acct: [id number] Name: LEONEL ANDRE (BONNIE) Rep #: [id number] : 1945 F 79 From: Marcelino Gandara MD PCP: Dr. Femi Baeza MD Status: R EG ER Study:Abdomen/Pelvis W IV Cont ONLY Date of E xam: 12/07/24 Exam# [id number] Ordering Dr: Isabel Shaffer DO PROCEDURE: CT ABDOMEN/PELVIS W IV CONT ONLY 12/07/2024 REASON FOR EXAM: CONSTIPATION, N ABD PAIN TECHNIQUE: Procedure Code: [id number] Modality: CT Procedure: ABDOMEN/PELVIS W IV CONT ONLY Coronal and Sagittal reconstruction series were provided. CONTRAST: Isovue 300 VOLUME: 97 mL One or more dose reduction techniques were used (e.g., Automated exposure control, adjustment of the mA and/or kV according to patient size, use of iterative reconstruction technique. RADIATION DOSE SUMMARY: DLP: 469.9 mGycm COMPARISON: 04/30/2024, 02/21/2024. FINDINGS: Lung bases: Clear. Liver: No significant abnormality. Gallbladder: Surgically absent. Postoperative/age-related prominence of the CBD. Spleen: Unremarkable. Pancreas: Diffuse age-related fatty atrophy. Adrenals: Unremarkable, no discrete nodules. Kidneys: Symmetric enhancement. Stable size/appearance of a 12 mm solid enhancing lesion at the lateral aspect of the lower right kidney. Complex peripherally enhancing cystic lesion measuring up to 22 mm in the anterior aspect of the lower right kidney. Complex heterogeneously enhancing 21 mm lesion within the upper pole ofthe right kidney. Multifocal cortical thinning/scarring in the left kidney, likely related to reported partial nephrectomy. No hydroureteronephrosis on either side. Bladder: Unremarkable. Reproductive Organs: Grossly unremarkable uterus and adnexae. Bowel: Moderate hiatal hernia containing the stomach fundus and GE junction in the posterior left lower mediastinum. No evidence of bowel obstruction or active inflammatory process. Appendix is not identifiedwith certainty but there are no localized pericecal inflammatory changes. Moderate-large stool burden throughout the colon suggesting constipation. Lymph nodes: No suspicious lymph node enlargement. Vasculature: Abdominal aorta is tortuous but normal in caliber. Moderate atherosclerotic disease. Peritoneum / Retroperitoneum: No ascites or free air. Bones: No acute or aggressive osseous abnormality. Advanced lumbar levoscoliosis. CT/Abdomen/Pelvis W IV Cont ONLY IMPRESSION: 1. No acute or active inflammatory intra-abdominal pathology identified. 2. Moderate-large colonic stool burden suggesting constipation. 3. No significant change in multiple right renal mass lesions as noted. Recommend follow-up. Reading Location: [facility] CC: Dr. Juan Shaffer DO; Dr. Femi Baeza MD ~ Chief School Finance Officer: Signed [facility]10-06-2025 Discharge summary Author Juan Shaffer [facility] Note Date/Time December 07, 2024 9: 19pm [facility] Medical Records Department [address] [place] [address] Emergency Department Summary 12/07/24 MR#: [id number] Acct: [id number] Name: LEONEL ANDRE (QUINN Cisneros Rep #: [id number] : 1945 79 From: Juan Shaffer DO PCP: Dr. Femi Baeza MD Status:R EG ER Location: ED HPI History of Present Illness Chief Complaint: Weakness Narrative Narrative: Patient is a 79-year-old female with past medical history of anxiety, cancer, GERD, primary hyperparathyroidism, bowel obstruction, osteoporosis, hypertension who presented to the emergency department chief complaint of constipation and diarrhea. States that she has chronic constipation and she is on Linzess currently as well as some other medications for constipation. States that MiraLAX did not help her in the past. States that she has had previous abdominal surgeries including tubal ligation as well as cholecystectomy. Patient states that she had bowel movement earlier today however notes that lately they have been painful and is large stool burden while having the bowel movement. She states that she also feels very shaky and weak overall. States that she has been eating denies any vomiting. States that she lives with her 2 sons. In triage noted notes that she was having pain in her right shoulder which she explained to me and after clarifying states that she had a fall in August and has been having ongoing pain since then and has seen multiple providersfor this and there is suspicion that she tore her rotator cuff. She states thatshe is here today for weakness and constipation as well as nausea. [facility] Medical History Wears glasses Cancer Anxiety Ambulates [...] (vitamin D3) 25 2,000 unit PO DAILY HARDIN PPLEMENT 12/26/15 12/06/24 History mcg (1,000 unit) tablet (Vitamin D3) oxybutynin chloride 5 mg tablet 5 mg PO BID BLADDER 12/07/24 History diltiazem HCl 180 mg capsule,24 360 mg PO DAILY htn 12/07/24 History hr,extended release lorazepam 0.5 mg tablet 0.5 mg PO DAILY ANXIETY 10/2212/07/24 History acetaminophen 500 mg tablet 500 mg PO Q6H PRN pain 12/07/24 History (Tylenol Extra Strength) cetirizine 5 mg tablet 5 mg PO DAILY PRN allergy sy mptoms 08/23/22 Unknown History fluticasone propionate 50 1 spray intranasal DAILY PRN 08/23/22 Unknown History mcg/actuation nasal allergy symptoms spray,suspension omeprazole 40 mg capsule,delayed 40 mg PO DAILY GERD 0 08/23/22 12/06/24 History release denosumab 60 mg/mL subcutaneous 60 mg subcut [id number] OSTEOPOROSIS 10/03/22 Unknown Rx syringe (Prolia) #1 mL Lactobacillus rhamnosus GG 20 1 cell PO DAILY GUT HEAL TH 12/16/23 12/06/24 History billion cell capsule (Probiotic Digestive Care) ondansetron 8 mg disintegrating 8 mg PO Q8H PRN nausea and 02/21/24 Unknown Rx tablet vomiting #15 tabs losartan 50 mg tablet 50 mg PO BID HTN 06/08/24 History docusate sodium 100 mg capsule 100 mg PO TID constipat ion #90 caps 08/11/24 12/07/24 Rx linaclotide 145 mcg capsule 145 mcg PO QAM IBS #30 cap s 11/09/24 12/07/24 Rx (Linzess) lactulose 10 gram/15 mL oral 10 g (15 mL) PO TID CONST IPATION 11/13/24 12/07/24 Rx solution #1,200 mL fexofenadine 180 mg tablet 180 mg PO DAILY ALLERGY SYM PTOMS 12/07/24 12/06/24 History (Louisa Allergy) hydrochlorothiazide 50 mg tablet 50 mg PO DAILY DIURET IC 12/07/24 12/07/24 History Allergy/AdvReac Type Severity Reaction Status Date / Time lisinopril Allergy Swelling Verified 12/07/24 16:06 esomeprazole (From Nexium) AdvReac Nausea/Vom/ Verified 12/07/24 16:06 Diarrhea Family History Father Alcoholism Brother Alcoholism Mother Arthritis Hypertension Osteoporosis Surgical History Hx of colonoscopy History of tubal ligation History of cholecystectomy History of knee replacement H/O partial nephrectomy Social History Smoking Status: Former smoker alcohol intake: never what type of physical activity do you participate in: bicycling ROS ROS ED ROS Narrative Constitutional: Denies any fevers, chills, headaches Eyes: Denies double vision Cardiovascular: Denies chest pain Respiratory: Denies coughing wheezing shortness of breath Abdomen: Complains of nausea and constipation as noted above states that she is having bowel movements however she notes that she is constipated however she is chronically constipated : Denies any urinary symptoms Neurological: Complains of generalized weakness denies numbness, tingling Musculoskeletal: Denies back pain Skin: Denies any rashes or lesions EXAM Physical Exam Narrative Exam Narrative: General: Patient lying in bed resting comfortably did not appear to be acute distress Head: Atraumatic, normocephalic Eyes: PERRL bilaterally, EOMI bilaterally, no conjunctival injection noted Neck: Soft, supple, trachea midline Cardiovascular: Regular rate and rhythm Respiratory: Clear to auscultation bilaterally Abdomen: Soft, nondistended, mild tenderness patient diffusely throughout her abdomen does appear constipated as hard stool is noted on exam Extremities: +4/5 strength noted in the bilateral upper and lower extremities, no pedal edema on exam Neurological: Patient following commands knew that she was at [facility] 2024 Skin: Warm, dry, tact no rashes or lesions noted Const Vital Signs: 12/07/24 16:06 12/07/24 16:39 12/07/24 18:05 Temperature 98.1 F Temperature Source Temporal Pulse Rate 85 56 L Respiratory Rate 24 H 16 Respiratory Effort Normal Respiratory Pattern Normal Blood Pressure 167/102 H 145/74 H Blood Pressure Mean 123 97 Pulse Ox 98 100 Oxygen Delivery Method Room Air Room Air 12/07/24 20:00 12/07/24 21:16 Temperature 98.1 F Temperature Source Pulse Rate 59 L 59 L Respiratory Rate 18 18 Respiratory Effort Respiratory Pattern Blood Pressure 125/83 H 125/83 H Blood Pressure Mean 97 97 Pulse Ox 100 100 Oxygen Delivery Method Room Air MDM MDM MDM Narrative Medical decision making narrative: Patient is a 79-year-old female who presented to the emergency department chief complaint of constipation and nausea. On the differential diagnosis includes but limited to bowel obstruction, constipation, electrolyte abnormality. Once workup is obtained reviewed she will be reevaluated. Patient CBC reviewed and showed no evidence leukocytosis white blood count normal at 7, hemoglobin 13.5, platelet count of 223. Patient sodium was noted to be 127 indicated hyponatremia, potassium low at 3.2 she will be given 40 millequivalents of oral supplementation here in the emergency department, creatininewas 0.57. Patient's AST and ALT were 18 and 16 respectively, lipase was 16. Patient's urinalysis reviewed and showed no evidence of infection. Patient CT ab pelvis with IV contrast was reviewed and showed no acute or active inflammatory intra-abdominal pathology there is a moderate large colonic stool burden suggesting constipation no significant change in multiple right renal mass lesions as noted. I went back in to reevaluate the patient and she states that she feels worse than when she came in she feels weaker and more shaky. She also states that sheis nauseous as well. At this point time will discuss case with hospitalist for admission for generalized weakness, hyponatremia, constipation. Discussed case with hospitalist Dr. Enamorado who will accept patient for admission. Patient was notified is agreeable this plan all question concerns answered. Lab Data Labs: Laboratory Results - last 24 hr 12/07/24 12/07/24 16:46 16:57 WBC 7.0 RBC 4.51 Hgb 13.5 Hct 38.9 MCV 86.3 MCH 29.9 MCHC 34.7 RDW Std Deviation 39.8 RDW Coeff of Sharron 12.7 Plt Count 223 MPV 9.8 Immature Gran % (Auto) 0.100 Neut % (Auto) 63.7 Lymph % (Auto) 12.9 L Rolette % (Auto) 8.3 Eos % (Auto) 14.4 H Baso % (Auto) 0.6 Absolute Neuts (auto) 4.5 Absolute Lymphs (auto) 0.90 Nucleated RBC % 0 Differential Comment SCANNED Platelet Estimate ADEQUATE Sodium 127 L Potassium 3.2 L Chloride 88 L Carbon Dioxide 25.1 Anion Gap 14 BUN 20 H Creatinine 0.57 L Estim Creat Clear Calc 49.22 L Est GFR (MDRD) Non-Af 93 BUN/Creatinine Ratio 35.4 H Glucose 128 H Calcium 10.4 Total Bilirubin 0.44 AST 18 ALT 16 Alkaline Phosphatase 56 Total Protein 7.0 Albumin 4.5 Globulin 2.4 Albumin/Globulin Ratio 1.9 Lipase 16 Urine Color Straw Urine Clarity Clear Urine pH 7.0 Ur Specific Reinholds 1.010 Urine Protein 15 H Urine Glucose (UA) Normal Urine Ketones Negative Urine Occult Blood 10 H Urine Nitrite Negative Urine Bilirubin Negative Urine Urobilinogen Normal Ur Leukocyte Esterase Negative Urine RBC 0-5 SEEN Urine WBC 0-5 SEEN Ur Squamous Epith Cells 0-5 SEEN Urine Bacteria 0 SEEN Urine Mucus 0 SEEN Radiography Diagnostic Testing: Clinical Impression(s) from Imaging Studies Abdomen/Pelvis CT 12/07/24 18:10 IMPRESSION: 1. No acute or active inflammatory intra-abdominal pathology identified. 2. Moderate-large colonic stool burden suggesting constipation. 3. No significant change in multiple right renal mass lesions as noted. Recommend follow-up. Reading Location: [id number] Discharge Plan Dx/Rx/DC Orders Clinical Impression: Benign essential hypertension, Primary hyperparathyroidism, Constipation, Hypokalemia, Acute hyponatremia, Generalized weakness Disposition Disposition: [facility] What to do if you have Problems For any increased pain, shortness of breath, bleeding, nausea or vomiting, chestpain, or any unexpected problems, contact your Primary Care Provider. Call [facility] ([phone]) or report to the closest Emergency Room. Call 911 if necessary. 12/07/242118 <Electronically signed by Juan Shaffer DO> Cosigner Signature (if applicable): CC: Dr. Femi Baeza MD ~ Signed [facility] Work Phone: 1(250) 899-750208-27-2025 NoteHNO ID: [id number] Author: FEMI BAEZA MD Service: ? Author Type: Physician Type: Progress Notes Filed: 10/28/2024 18:18 Note Text: Subjective Leonel Andre is a 79 year old female. Recording using Scan software for draft documentation of the visit was discussed with the patient/authorized customer engagement representative; all questions welcomed and answered. Patient/authorized customer engagement representative agreed to proceed Patient presents with: F/U 3 Month Right Shoulder Pain:- Peg Andre experienced onset after a fall on the last Saturday of August. - Pain localized to the right shoulder and upper arm.- Unable to raise arm to use a blow dryer or curling iron; requires assistance from left arm.- Peg tried post acute care registered nurse, which worsened the pain.- Completed 6 sessions of physical therapy with massage and stretching; no improvement, possibly worsened.- Physical therapist suggested possible rotator cuff injury and recommended seeing an orthopedic doctor.- No previous injuries to the right shoulder. Knee Pain:- Bilateral knee pain following the fall.- Pain has improved with exercise bike use; knees are a little looser and less sore, but soldering machine tender. Constipation:- Chronic issue, currently having [...] BP Position: Sitting) Pulse 64 Latest Ref Rn 10/27/2024 Protein, Total 6.3 - 8.0 g/dL [...] 401.9, ICD10: I10 - (more content not included)...[facility]08-27-2025 History of Present illness Narrative* Femi Baeza MD - 10/28/2024 4:44 PM EDT Subjective Leonel Andre is a 79 year old female. Recording using Scan software for draft documentation of the visit was discussed with the patient/authorized customer engagement representative; all questions welcomed and answered. Patient/authorized customer engagement representative agreed to proceed Patient presents with: F/U 3 Month Right Shoulder Pain:- Peg Andre experienced onset after a fall on the last Saturday of August. - Pain localized to the right shoulder and upper arm.- Unable to raise arm to use a blow dryer or curling iron; requires assistance from left arm.- Peg tried post acute care registered nurse, which worsened thepain.- Completed 6 sessions of physical therapy with massage and stretching; no improvement, possibly worsened.- Physical therapist suggested possible rotator cuff injury and recommended seeing an orthopedic doctor.- No previous injuries to the right shoulder. Knee Pain:- Bilateral knee pain following the fall.- Pain has improved with exercise bike use; knees are a little looser and less sore, but soldering machine tender. Constipation:- Chronic issue, currently having [...] day. Femi Baeza MD [facility] Telephone encounter Note * Telephone Encounter - Madelaine Griffiths LPN - 10/26/2024 3:26 PM EDT Left msg on identified vm, Doctor has ordered fasting labs. Madelaine Griffiths LPN [facility]08-25-2025 Miscellaneous Notes* Telephone Encounter - Madelaine Griffiths LPN - 10/26/2024 3:26 PM EDT Left msg on identified vm, Doctor has ordered fasting labs. Madelaine Griffiths LPN * Telephone Encounter - Femi Baeza MD - 10/26/2024 3:23 PM EDT Fasting labs ordered. * Telephone Encounter - Madelaine Griffiths LPN - 10/26/2024 12:48 PM EDT Peg is asking if she needs to have labs prior to her appt 10/28. Madelaine Griffiths LPN documented [facility] Telephone encounter Note * Telephone Encounter - Femi Baeza MD - 10/26/2024 3:23 PM EDT Fasting labs ordered. [facility]08-[facility] Telephone encounter Note* Telephone Encounter - Madelaine Griffiths LPN - 10/26/2024 12:48 PM EDT Peg is asking if she needs to have labs prior to her appt 10/28. Madelaine Griffiths LPN [facility]08-25-2025 Telephone encounter Note* Telephone Encounter - Madelaine Griffiths LPN - 10/26/2024 12:42 PM EDT Patient has been identified by [...] Please advise. Thank you. Madelaine Griffiths LPN. [facility]08-25-[facility]25 Miscellaneous Notes* Telephone Encounter - Madelaine Griffiths LPN - 10/26/2024 12:42 PM EDT Patient has been identified by [...] you. Madelaine Griffiths LPN. documented in this encounterUpper [facility]25 Discharge summary Author Armond Garza [facility] Note Date/Time October 12, 2024 7: 00pm [facility] Physical Therapy [facility] [facility] [place] [address] / REHABILITATION SERVICES DISCHARGE SUMMARY MR#: [id number] Acct: [id number] Name: LEONEL ANDRE (BONNIE) Rep #: [id number] : 1945 79 From: Armond Garza DPT, OCS, CSCS Referring DrEffie: SADIE Govea Older Status: REG RCR Insurance: [...] Comments: Pt to continue neck exercises at [facility] and wants to see shoulder specialist. d/c sentence: If there are questions or concerns regarding this patient's physical therapy, please feel free to call me at [phone]. Thank you for the referral of thispatient. Sincerely, Armond Garza, DPT, OCS, CSCS Balance/Gait/Functional tests Balance/Special Test Scores Oswestry Neck Score: 27 Improvement % Improvement: 25 <Electronically signed by Armond Garza DPT, OCS, CSCS> 10/12/24 1392 CC: SADIE Govea Older; Dr. Femi Baeza MD ~ EBG Signed [facility] Work Phone: 1(200) 456-550908-11-2025 Discharge summary [facility] Physical Therapy [facility] [address] [facility] [place] [address] / REHABILITATION SERVICES DISCHARGE SUMMARY MR#: [id number] Acct: [id number] Name: LEONEL ANDRE (BONNIE) Rep #: [id number] : 1945 79 From: Armond Garza DPT, OCS, CSCS Referring Dr.: SADIE Nichole Status: REG RCR Insurance: [employer] SELF PAY INSURANCE Discharge Summary D/C summary: It has been my pleasure to treat LEONEL (PEG) Blayne ANDRE referred by SADIE Cai, withthe [...] Comments: Pt to continue neck exercises at [facility] and wants to see shoulder specialist. d/c sentence: If there are questions or concerns regarding this patient's physical therapy, please feel free to call me at [phone]. Thank you for the referral of thispatient. Sincerely, Armond Garza, DPT, OCS, CSCS Balance/Gait/Functional tests Balance/Special Test Scores Oswestry Neck Score: 27 Improvement % Improvement: 10/12/24 1556 CC: SADIE Govea Older; Dr. Femi Baeza MD ~ EBG Signed [facility]07-23-2025 Evaluation note* Diagnosis Onset Date Resolution Status Admit Date Constipation acute September 23, 025 2:26pm Degenerative disc disease, cervical acute November 09 025 2:28pm Osteoarthritis of right shoulder acu te November 09, 2024 2:28pm Right rotator cuff tendinitis acute November 09, 2024 2:28pm Acute constipation acute Octobe r 2024 9:50pm Acute hyponatremia acute Octobe r 2024 9:50pm Adverse drug reaction acute Oct timmy 2024 9:50pm Constipation acute December 07, 2024 9:50pm Generalized weakness acute Octo koffi 2024 9:50pm History of chronic constipation acut e December 07, 2024 9:50pm History of partial nephrectomy acute December 07, 2024 9:50pm 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 acute Oc tober 2024 9:50pm Hypokalemia acute December 07, 2024 9:50pm Benign essential hypertension chroni c December 07, 2024 9:50pm Primary hyperparathyroidism chronic December 07, 2024 9:50pm [facility] Work Phone: 1(930) 960-585107-23-2025 Evaluation note* Diagnosis Onset Date Resolution Status Admit Date Constipation acute September 23 2:26pm Degenerative disc disease, cervical acute November 09 2:28pm Osteoarthritis of right shoulder acu te November 09, 2024 2:28pm Right rotator cuff tendinitis acute November 09, 2024 2:28pm Acute constipation acute Octobe r 2024 9:50pm Acute hyponatremia acute Octobe r 2024 9:50pm Adverse drug reaction acute Oct timmy 2024 9:50pm Colonic stricture acute December 07, 2024 9:50pm Constipation acute December 07, 2024 9:50pm Generalized weakness acute Octo koffi 2024 9:50pm History of chronic constipation acut e December 07, 2024 9:50pm History of partial nephrectomy acute December 07, 2024 9:50pm 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 Thank you. Madelaine Griffiths LPN. [facility]07-[facility] Miscellaneous Notes* Telephone Encounter - Madelaine Griffiths [...] you. Madelaine Griffiths LPN. documented in [facility] encounterUpper [facility]07-[facility]-2025 NoteHNO ID: [id number] Author: ROBERT BANERJEE RT(R) Service: ? Author [...] PATIENT PRESENTS WITH AN IMPLANTABLE OR ATTACHED TRAINING MANAGER: No RADIOLOGY DEPARTMENT: General X-ray: Exam(s) Completed: Spine X-Ray(s): Cervical FLEX/EXT Lower Extremity X-Ray(s): Knee, AP / Lat / Tunne / Merchant Bilateral Upper Extremity X-Ray(s): Shoulder, AP / TRUE AP / AXILLARY right PERIPHERAL IV DATA: Not applicable SIGNED BY: RT Andrew(R) September 08, 2024 2:58 [facility]07-08-2025 NoteHNO ID: [id number] Author: XUAN BRANDON APRN.[facility] Service: ? Author Type: Nurse Practitioner Type: Progress Notes Filed: 09/08/2024 14:10 Note Text: CC: Patient presents with: Same Day Appointment: fell approx 1.5week ago c/o shoulder pain and bilateral knee pain from fall. Patient is having problems lifting right arm HPI Recording using ambient Soluto software for draft documentation of the visit was discussed with the patient/authorized customer engagement representative; all questions welcomed and answered. Patient/authorized customer engagement representative agreed to proceed Peg Andre is [...] neck. She has tried physical therapy and post acute care registered nurse for her neck pain, but reports that [...] capsule Take 2 cap (more content not included)...[facility]07-08-2025 History of Present illness Narrative* Xuan Brandon, WASTE RECYCLER.ELECTRONIC WARFARE TECHNICAL - 09/08/2024 2:04 PM EDT Images from the original note were not included. CC: Patient presents with: Same Day Appointment: fell approx 1.5week ago c/o shoulder pain and bilateral knee pain from fall. Patient is having problems lifting right arm HPI Recording using Scan software for draft documentation of the visit was discussed with the patient/authorized customer engagement representative; all questions welcomed and answered. Patient/authorized customer engagement representative agreed to proceed Peg Andre is [...] neck. She has tried physical therapy and post acute care registered nurse for her neck pain, but reports that [...] cell carcinoma LIG/TRNSXJ FLP TUBE ABDL/VAG APPR UNI/1975 Tubal ligation ALLERGIES Dust, Lexapro [Escitalopram Oxalate], [...] maternal cousin Coronary Artery Disease Brother of MD at 54. Social History Tobacco Use Smoking [...] (Temporal) Resp 14 Ht 167.6 cm (5' 6) Wt 55.6 kg (122 lb 9.2 oz) [...] abnormalities. - Referred to physical therapy at [facility] for neck pain management. - Continue using heat and ice as needed. 4. Age related osteoporosis, unspecified pathological fracture presence (M81.0) History of osteoporosis increasing the risk of fractures. - Ordered X-rays to rule out fractures in the knees, shoulder, and neck. I spent a total of 30 minutes on the date of the service which included preparing to see the patient, [id number] patient care, completing clinical documentation, performing a medically appropriate examination, counseling and educating the patient/family/caregiver, and ordering medications, tests,or procedures. Prescription instructions reviewed with patient as applicable. Potential red flag symptoms discussed with the patient. Reviewed appropriate action plan to take if red flag symptoms occur. Patient agreeable to treatment plan. Xuan Brandon APRN.NICOLE documented in [facility] Instructions* Patient Instructions* Xuan Brandon APRN.CNP - 09/08/2024 2:01 PM EDT We discussed [...] send a referral for physical therapy to [facility], as you prefer to go there. They [...] your history of neck pain and prior post acute care registered nurse: - You mentioned that post acute care registered nurse worsened your neck pain and was not [...] have any additional concerns. documented in this encounterUpper [facility] Center06-02-2025 NoteHNO ID: [id number] Author: XUAN BRANDON APRN.NICOLE Service: ? Author Type: Nurse Practitioner Type: Progress Notes Filed: 08/03/2024 15:08 Note Text: CC: Patient presents with: Pain: Neck x 6 weeks creating headache daily HPI Recording using Scan software for draft documentation of the visit was discussed with the patient/authorized customer engagement representative; all questions welcomed and answered. Patient/authorized customer engagement representative agreed to proceed Peg is a [...] 10/08/2016 EGD F COLONOSCOPY WITH POLYPECTOMY 06/12/2024 [facility] Serrated adenoma. LAPAROSCOPY PARTIAL NEPHRECTOMY Left [...] Take 1 table (more content not included)... [facility]06-02-2025 History of Present illness Narrative* Xuan Brandon, WASTE RECYCLER.ELECTRONIC WARFARE TECHNICAL - 08/03/2024 3:04 PM EDT CC: Patient presents with: Pain: Neck x 6 weeks creating headache daily HPI Recording using Scan software for draft documentation of the visit was discussed with the patient/authorized customer engagement representative; all questions welcomed and answered. Patient/authorized customer engagement representative agreed to proceed Peg is a [...] maternal cousin Coronary Artery Disease Brother of MD at 54. Social History Tobacco Use Smoking [...] plan. Xuan Brandon APRN.NICOLE documented in this encounterUpper [facility] Center06-02-2025 Instructions* Patient Instructions* Xuan Brandon APRN.CNP - [...] after completing the antibiotics. documented in this encounterUpper [facility] Center05-30-2025 Telephone encounter Note * Telephone Encounter - Crystal Vega OCCA - 07/31/2024 2:36 PM EDT Please see message received today, 07/31. Patient no longer needing refill. MANJU Cabrales [facility]05-30-2025 Miscellaneous Notes* Telephone Encounter - Crystal Vega OCCA - 07/31/2024 2:36 PM EDT Please see MC message received today, 07/31. Patient no longer needing refill. MANJU Cabrales documented in this encounterUpper Valley Medical Center05-30-2025 Telephone encounter Note * Telephone Encounter - Codei Monson RN - 07/31/2024 8:28 AM EDT Protocol recommends see provider within 3 days. Pt had already made a [employer] appt for this Saturday the . Offered [...] day it is improving 4. SEVERITY: Today 06/11. Yesterday was a -09/10. - MILD (1-3): Doesn't interfere with normal [...] the back of her neck. Protocols used: Uvloansd-EMKPT-KF, Neck Pain or Lcclskrdj-EBNTV-TM [facility]05-30-2025 Miscellaneous Notes* Telephone Encounter - Codie Monson RN - 07/31/2024 8:28 AM EDT Protocol recommends see provider within 3 days. Pt had already made a [employer] appt for this Saturday the . Offered [...] day it is improving 4. SEVERITY: Today 10. Yesterday was a -09/10. - MILD (1-3): Doesn't interfere with normal [...] the back of her neck. Protocols used: Briwasdm-TDXMO-QU, Neck Pain or Doiqpirub-CVJXI-WF * Telephone Encounter - Codie Monson RN - 07/31/2024 8:06 AM EDT Still having issues with outgoing calls with static and asked pt to return the call. documented in this encounterUpper Valley Medical Center05-30-2025 Telephone encounter Note * Telephone Encounter - Codie Monson RN - 07/31/2024 8:06 AM EDT Still having issues with outgoing calls with static and asked pt to return the call. [facility]05-14-2025 Evaluation note* Diagnosis Onset Date Resolution Status Admit Date Colonic stricture acute July 2:55pm Constipation acute July 15 2:55pm Constipation acute September 23, 2 025 2:26pm [facility] Work Phone: 1(249) 253-267605-14-2025 Evaluation note* Diagnosis Onset Date Resolution Status Admit Date Colonic stricture acute July 2:55pm Constipation acute July 15 2:55pm Constipation acute September 23, 2 025 2:26pm Osteoarthritis of right shoulder acute November 09, 025 2:28pm Right rotator cuff tendinitis acute November 09, 2024 2:28pm [facility] Work Phone: [phone] NoteHNO ID: [id number] Author: FEMI BAEZA MD Service: ? Author Type: Physician Type: Progress Notes Filed: 07/02/2024 18:10 Note Text: This note was created using Brainparkter. Subjective Leonel Andre is a 79 year old female. She stopped hydrochlorothiazide due to a faint rash in her chest. Edema was better. Her hypertension was stable. Weight was stable. She continued with constipation. She was also not pleased with [facility]. She felt her colon biopsy results were [...] ICD9: 211.3, ICD10: K63.5 Pathology retrieved from [facility]: serrated adenoma. - CONSULT TO GASTROENTEROLOGY Femi Baeza [facility]05-01-2025 History of Present illness Narrative* Femi Baeza MD - 07/02/2024 4:39 PM EDT This note was created using NoteWriter. Subjective Leonel Andre is a 79 year old female. She stopped hydrochlorothiazide due to a faint rash in her chest. Edema was better. Her hypertension was stable. Weight was stable. She continued with constipation. She was also not pleased with [facility]. She felt her colon biopsy results were [...] ICD9: 211.3, ICD10: K63.5 Pathology retrieved from [facility]: serrated adenoma. - CONSULT TO GASTROENTEROLOGY Femi Baeza MD documented in this encounterUpper Valley Medical Center04-24-2025 NoteHNO ID: [id number] Author: RIA GÓMEZ RT(R) Service: ? Author Type: Curing Room Supervisor Type: Progress Notes Filed: 06/25/2024 18:01 Note [...] PATIENT PRESENTS WITH AN IMPLANTABLE OR ATTACHED TRAINING MANAGER: No RADIOLOGY DEPARTMENT: General X-ray: Exam(s) Completed: Chest X-Ray PERIPHERAL IV DATA: Not applicable SIGNED BY: RT Herrera(R) June 25, 2024 5:54 [facility]04-24-2025 NoteHNO ID: [id number] Author: FEMI BAEZA MD Service: ? Author Type: Physician Type: Progress Notes Filed: 06/25/2024 19:18 Note Text: This note was created using PT Global Tiket Networkriter. Subjective Leonel Andre is a 79 year old female. Patient presents with: Swelling: In CARLOS lower legs with weight loss x 1 month Recording using Scan software for draft documentation of the visit was discussed with the patient/authorized customer engagement representative; all questions welcomed and answered. Patient/authorized customer engagement representative agreed to proceed Peg is a [...] No tenderness. Thoracic marcus (more content not included)...[facility]04-16-2025 Telephone encounter Note* Telephone Encounter - Madelaine [...] Please advise. Thank you. Madelaine Griffiths LPN. [facility]04-16-2025 Miscellaneous Notes* Telephone Encounter - Madelaine Griffiths [...] you. Madelaine Griffiths LPN. documented in this encounterUpper Valley Medical Center04-16-2025 Telephone encounter Note * Telephone Encounter - [...] Please advise. Thank you. Madelaine Griffiths LPN. [facility]04-16-2025 Miscellaneous Notes* Telephone Encounter - Madelaine Griffiths [...] you. Madelaine Griffiths LPN. documented in this encounterUpper Valley Medical Center04-11-[address] [facility] Medical Records Department [address] [place] [address] Anesthesia Postop Eval II 06/12/24 1355 MR#: [id number] Acct: [id number] Name: LEONEL ANDRE Rep #:[id number] 3 : 1945 79 From: Jed Rubio MD PCP: Dr. Femi Baeza MD Status:R EG [facility] Y Race: C Location: [place] [address] Anesthesia Postop Eval I Sum Postop Eval [...] MD Cosigner Signature: Date CC: ~ Signed [facility]04-11-2025 Consult note Author Jed elaina [facility] Note Date/Time June 12, 2024 12: 13pm [facility] Medical Records Department [address] [place] [address] Pre-Anesthesia Evaluation 06/12/24 1212 MR#: [id number] Acct: [id number] Name: LEONEL ANDRE Rep #:[id number] 3 : 1945 79 From: Jed Rubio MD PCP: Dr. 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 Hx Hospitalization No 06/08/24 11:36 Any Problems [...] take am of surgery PONV PONV - metal punch press operator: PONV - metal punch press operator Female Yes 06/08/24 11:36 HX of Motion [...] 06/12/24 11:59 Respiratory Assessment Respiratory Assessment - metal punch press operator: Respiratory Tract Infection Hx - metal punch press operator Hx Respiratory Tract Infection No 06/08/24 11:36 STOP Sleep Apnea STOP Sleep Apnea - metal punch press operator: STOP Sleep Apnea - metal punch press operator Hx Hypertension Yes: CONTROLLED ON MED 06/08/24 [...] Tobacco Use History Tobacco Use History - metal punch press operator: Tobacco Use History - metal punch press operator Tobacco Use Non-smoker 08/31/23 13:32 Smoking Status Former smoker 06/08/24 11:36 Hx Tobacco Use No 06/08/24 11:36 Years Smoking Packs Smoked per Day Smoking Cessation Date was No - quit smoking greater 06/08/24 11:36 within the last 15 years than 15 years ago Hx Smoking Cessation Date 09/09/1939 06/08/24 11:36 Hx Smoking Cessation No 06/08/24 11:36 Counseling Hematologic Medial History Hematologic Hx - metal punch press operator: Hematologic Medical Hx - yarn comber Hx of Blood Transfusion Yes 06/08/24 11:36 [...] 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 History - metal punch press operator: /Reproductive Hx- metal punch press operator Hx Now No 06/08/24 11:36 Gestational Age (in weeks): EDC: Hx Hx Para Hx Section SAB No 06/08/24 11:36 PFS Medical History Wears glasses Cancer Anxiety Ambulates [...] denosumab 60 mg/mL subcutaneous 60 mg subcut [id number] #1 mL 10/03/22 Unknown Rx syringe (Prolia) [...] MD Cosigner Signature: Date CC: ~ Signed [facility] Work Phone: 1(890) 458-447604-11-[address] [facility] Medical Records Department [address] [place] [address] Anesthesia Postop Eval I 06/12/24 1346 MR#: [id number] Acct: [id number] Name: LEONEL ANDRE Rep #:[id number] 1 : 1945 79 From: Calos Shaffer PCP: Dr. Femi Baeza MD Status:R BORA ALEXANDER Y Race: C Location: [place] [address] Anesthesia: Postop Eval I Current Vital Signs [...] Anesthesia document: Postop Eval 1 completed: Yes 06/12/241346 > Date _ Calos Emery Signature: Date CC: ~ Signed [facility]04-11-2025 Procedure note [facility] Medical Records Department [address] [facility] [place] [address] Colonoscopy Report MR#: [id number] Acct: [id number] Name: LEONEL ANDRE Rep #:[id number] 3 : 1945 79 From: Krzysztof Arroyo DO PCP: Dr. Femi Baeza MD Status:Jose ALEXANDER Patient Name: Leonel Andre Procedure Date: 06/12/2024 [...] was poor. Procedure Code(s): --- Professional --- 17813, Colonoscopy, flexible; with removal of tumor(s), polyp(s), or other lesion(s) by snare technique CPT copyright 2021 [employer]. All rights reserved. The codes documented in this report are preliminary and upon layer out review may be revised to meet current compliance requirements. Krzysztof Arroyo DO 06/12/2024 1:41:44 PM This report has been signed electronically. Number of Addenda: 0 Note Initiated On: 06/12/2024 1:06 PM 06/12/24 1341 Date _ Krzysztof Arroyo DO Cosigner Signature: Date (if indicated) CC: Dr. Femi Baeza MD; Krzysztof Arroyo DO ~ Date Dictated: 06/12/24 1306 Date Transcribed: Chief School Finance Officer: RF Signed [facility]04-11-2025 Procedure note [facility] Medical Records Department [address] [place] [address] Operative Report - CC Letter MR#: [id number] Acct: [id number] Name: LEONEL ANDRE Rep #:[id number] : 1945 79 From: Krzysztof Arroyo DO PCP: Dr. Femi Baeza MD Status:Jose [facility] 06/12/2024 Femi Baeza [address] [place] [address] Re : Colonoscopy procedure for Leonel Andre [...] ~ Date Dictated: 06/12/24 1306 Date Transcribed: Chief School Finance Officer: RF Signed [facility]04-11-2025 Evaluation note* Diagnosis Onset Date Resolution Status Admit Date Colonic stricture acute June 022024 11:36am GI bleed acute June 12 11:36am Colonic stricture acute July 2:55pm Constipation acute July 15 2:55pm [facility] Work Phone: 1(551) 453-507904-11-2025 History and physical note [facility] Medical Records Department [address] [place] [address] History & Physical Exam 06/12/24 1302 MR#: [id number] Acct: [id number] Name: LEONEL ANDRE Rep #:[id number] 1 : 1945 79 From: Krzysztof Arroyo DO PCP: Dr. Femi Baeza MD Status:R EG [facility] Location: [place] [address] HPI - General General Date of Admission: 06/12/24 Date of Service: 06/12/24 Chief Complaint: Constipation HPI Dolores ANDRE, is a 79 F who presents with the chief Complaint: constipation [facility] ED 02.21.24 w/ watery diarrhea followed by [...] could be due to slowly growing tumor. [facility] ED 03.16.24; with no bowel movement for 3 weeks and mild intermittent rectal bleeding. [facility] 03.16.24; Moderate to large amount of colonic stool and gas. [facility] ED 03.20.24 with constipation and suspected rectal [...] having a bmas this has caused her prolapse to fall out and bleed in the past. She denies abd pain, n/v, diarrhea or heartburn. [facility] Medical History Wears glasses Cancer Anxiety Ambulates [...] denosumab 60 mg/mL subcutaneous 60 mg subcut [id number] #1 mL 10/03/22 Unknown Rx syringe (Prolia) [...] applicable): CC: Dr. Femi Baeza MD; Krzysztof Arroyo, ~ Signed [facility]04-11-2025 [facility] Medical Records Department [address] [place] [address] History Physical Exam 06/12/24 1302 MR#: [id number] Acct: [id number] Name: LEONEL ANDRE Rep #: [id number] : 1945 79 From: Krzysztof Arroyo DO PCP: Dr. Femi Baeza MD Status:REG [facility] Location: [place] [address] HPI - General General Date of Admission: 06/12/24 Date of Service: 06/12/24 Chief Complaint: Constipation HPI Narrative LEONEL ANDRE, is a 79 F who presents with the chief Complaint: constipation [facility] ED 02.21.24 w/ watery diarrhea followed by [...] could be due to slowly growing tumor. [facility] ED 1..25; with no bowel movement for 3 weeks and mild intermittent rectal bleeding. [facility] 1..25; Moderate to large amount of colonic stool and gas. [facility] ED 1.. with constipation and suspected rectal [...] a bm as this has caused her prolapse to fall out and bleed in the past. She denies abd pain, n/v, diarrhea or heartburn. [facility] Medical History Wears glasses Cancer Anxiety Ambulates [...] denosumab 60 mg/mL subcutaneous 60 mg subcut [id number] #1 mL Unknown Rx syringe (Prolia) Lactobacillus [...] smoker alcohol intake: never (more content not included)...[facility]04-11-2025 Consult note [facility] Medical Records Department [address] [place] [address] Pre-Anesthesia Evaluation 06/12/24 1212 MR#: [id number] Acct: [id number] Name: LEONEL ANDRE Rep #:[id number] 3 : 1945 79 From: Jed Rubio MD PCP: Dr. 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 Hx Hospitalization No 06/08/24 11:36 Any Problems [...] take am of surgery PONV PONV - metal punch press operator: PONV - metal punch press operator Female Yes 06/08/24 11:36 HX of Motion [...] 06/12/24 11:59 Respiratory Assessment Respiratory Assessment - metal punch press operator: Respiratory Tract Infection Hx - metal punch press operator Hx Respiratory Tract Infection No 06/08/24 11:36 STOP Sleep Apnea STOP Sleep Apnea - metal punch press operator: STOP Sleep Apnea - metal punch press operator Hx Hypertension Yes: CONTROLLED ON MED 06/08/24 [...] Tobacco Use History Tobacco Use History - metal punch press operator: Tobacco Use History - metal punch press operator Tobacco Use Non-smoker 08/31/23 13:32 Smoking Status Former smoker 06/08/24 11:36 Hx Tobacco Use No 06/08/24 11:36 Years Smoking Packs Smoked per Day Smoking Cessation Date was No - quit smoking greater 06/08/24 11:36 within the last 15 years than 15 years ago Hx Smoking Cessation Date 09/09/1939 06/08/24 11:36 Hx Smoking Cessation No 06/08/24 11:36 Counseling Hematologic Medial History Hematologic Hx - metal punch press operator: Hematologic Medical Hx - yarn comber Hx of Blood Transfusion Yes 06/08/24 11:36 [...] 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 History - metal punch press operator: /Reproductive Hx- metal punch press operator Hx Now No 06/08/24 11:36 Gestational Age (in weeks): EDC: Hx Hx Para Hx Section SAB No 06/08/24 11:36 [facility] Medical History Wears glasses Cancer Anxiety Ambulates [...] denosumab 60 mg/mL subcutaneous 60 mg subcut [id number] #1 mL 10/03/22 Unknown Rx syringe (Prolia) [...] MD Cosigner Signature: Date CC: ~ Signed [facility]02-27-2025 Radiology Diagnostic study note [facility] Imaging Services [address] [place], [place] [address] Abdomen/Pelvis WITH Contrast MR#: [id number] Acct: [id number] Name: LEONEL ANDRE Rep #: [id number] : 1945 F 79 From: Beti Lieberman MD PCP: Dr. Femi Baeza MD Status: R EG CLI Study:Abdomen/Pelvis WITH Contrast Date of Ex am: 04/30/24 Exam# [id number] Ordering Dr: Zonia Lawrence PROCEDURE: COMPUTED TOMOGRAPHY [...] findings detailed above are stable. Reading Location: [place] [address] CC: Dr. Femi Baeza MD; ALBINA Leach ~ Chief School Finance Officer: Signed [facility]01-27-2025 [facility] Medical Records Department [address] [place] [address] History Physical Exam 03/30/24 1031 MR#: [id number] Acct: [id number] Name: LEONEL ANDRE Rep #: [id number] : 1945 79 From: [facility] Friend PCP: Dr. Femi Baeza MD Status:[facility] Location: [place] [address] HPI - General General Date of Admission: 03/30/24 Date of Service: 03/30/24 Chief Complaint: Lower GI bleeding HPI Narrative Chief Complaint: rectal bleeding, suspected prolapse 79-year-old who presents for evaluation of lower GI bleeding. She is also been experiencing some diarrhea. 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 [facility] ED 03.16.24; with no bowel movement for 3 weeks and mild intermittent rectal bleeding. [facility] .; Moderate to large amount of colonic stool and gas. [facility] ED 1.17.25 with constipation and suspected rectal prolapse per pt. Normal work up. Physical exam with no indication of rectal prolapse. OV 1.. Pt continues to have issues with constipation. SHe has not had a full bm since the end of February 2024. She has abd a total of four episodes bleeding from her rectum with something falling out. She is able to reduce it back [...] [address] Harden at [facility]. She has been afraid to eat to avoid having a bm. [facility] Medical History Wears glasses Cancer Anxiety Ambulates [...] denosumab 60 mg/mL subcutaneous 60 mg subcut [id number] #1 mL 10/03/22 Unknown Rx syringe (Prolia) [...] gain or weight loss (more content not included)...[facility]01-22-2025 Evaluation note* Diagnosis Onset Date Resolution Status Admit Date Acute constipation inactive 2024 10:59am Bright red rectal bleeding inactive March 25, 2024 10:59am Diarrhea acute March 30, 2024 10:26am GI bleed acute March 30, 2024 10:26am Colonic stricture acute 2024 1:29pm GI bleed acute April 21, 2024 1:29pm [facility] Work Phone: 1(999) 644-820301-22-2025 Evaluation note* Diagnosis Onset Date Resolution Status Admit Date Acute constipation inactive 2024 10:59am Bright red rectal bleeding inactive March 25, 2024 10:59am Diarrhea acute March 30, 2024 10:26am GI bleed acute March 30, 2024 10:26am Colonic stricture acute ua2024 1:29pm GI bleed acute April 21, 2024 1:29pm Colonic stricture acute June 022024 11:36am GI bleed acute June 12 11:36am [facility] Work Phone: [phone] Instructions* Patient Instructions* Femi Baeza MD - [...] review all the medicines you take, even wsss-bwv-bnbtqzv medicines. As you get older, the way [...] have certain medical conditions. documented in this encounterUpper [facility] Center01-15-2025 NoteHNO ID: [id number] Author: FEMI BAEZA MD Service: ? Author Type: Physician Type: Progress Notes Filed: 03/18/2024 14:32 Note Text: This note was created using [employer]. Subjective Leonel Andre is a 79 year [...] (98.2 ?F) (Temporal) Ht 167.6 cm (5' 6) Wt 62.5 kg (137 lb 12.6 oz) [...] 719.45, ICD10: M25.551 - (more content not included)...[facility]01-15-2025 History of Present illness Narrative* Femi Baeza MD - 03/18/2024 2:17 PM EST This note was created using Brainparkter. Subjective Leonel Andre is a 79 year [...] (98.2 F) (Temporal) Ht 167.6 cm (5' 6) Wt 62.5 kg (137 lb 12.6 oz) [...] Baeza MD as PCP - General Xuan Brandon, KWASI.ELECTRONIC WARFARE TECHNICAL as Interactive Producer (Internal Medicine) Outside specialists seen: Zach Negro [...] (98.2 F) (Temporal) Ht 167.6 cm (5' 6) Wt 62.5 kg (137 lb 12.6 oz) BMI 22.24 kg/m Vision Screening: Follows with optometry/ophthalmology Right: 20/25 Left: 20/ 40 Both: 20/25 Assessment/Plan Medicare annual wellness visit, subsequent (Z00.00) - Counseled on healthy diet and regular exercise - Fall avoidance information provided - Personalized prevention plan provided - Vaccines reviewed. documented in this encounterUpper Valley [facility] Center01-15-2025 NoteHNO ID: [id number] Author: FEMI BAEZA MD Service: ? Author [...] Baeza MD as PCP - General Xuan Brandon, WASTE RECYCLER.ELECTRONIC WARFARE TECHNICAL as Interactive Producer (Internal Medicine) Outside specialists seen: Zach Negro [...] (98.2 ?F) (Temporal) Ht 167.6 cm (5' 6) Wt 62.5 kg (137 lb 12.6 oz) BMI 22.24 kg/m? Vision Screening: Follows with optometry/ophthalmology Right: 20/25 Left: 20/ 40 Both: 20/25 Assessment/Plan Medicare annual wellness visit, subsequent (Z00.00) - Counseled on healthy diet and regular exercise - Fall avoidance information provided - Personalized prevention plan provided - Vaccines reviewed.[facility]12-30-2024 NoteHNO ID: [id number] Author: FEMI BAEZA MD Service: ? Author Type: Physician Type: Progress Notes Filed: 03/02/2024 16:58 Note Text: This note was created using PT Global Tiket Networkriter. Subjective Patient presents with: ER F/U Leonel [...] GASTROENTEROLOGY. Patient unable to travel. Refer to [facility]. 2. Constipation, unspecified constipation type - ICD9: 564.00, ICD10: K59.00 Trial docusate. Continue fluids, Senokot. She felt she had tried Miralax without benefit in the past. - DOCUSATE SODIUM 100 MG CAPSULE 3. Mass of right kidney - ICD9: 593.9, ICD10: N28.89 - Reassured. This is monitored by her urologist. Femi Baeza [facility]12-30-2024 History of Present illness Narrative* Femi Baeza [...] GASTROENTEROLOGY. Patient unable to travel. Refer to [facility]. 2. Constipation, unspecified constipation type - ICD9: 564.00, ICD10: K59.00 Trial docusate. Continue fluids, Senokot. She felt she had tried Miralax without benefit in the past. - DOCUSATE SODIUM 100 MG CAPSULE 3. Mass of right kidney - ICD9: 593.9, ICD10: N28.89 - Reassured. This is monitored by her urologist. Femi Baeza MD documented in this encounterUpper Valley Medical Center12-03-2024 Instructions* Patient Instructions* Femi Baeza MD - 02/04/2024 12:[address] Collins. documented in this encounterUpper Valley Medical Center12-03-2024 NoteHNO ID: [id number] Author: MADELAINE GRIFFITHS LPN Service: ? Author [...] membrane assessed by LIP pre and post procedureNew[facility]12-03-2024 History of Present illness Narrative* Madelaine Griffiths [...] PM EST This note was created using [employer]. Subjective Leonel Andre is a 78 year [...] treatment Femi Baeza MD documented in this encounterUpper Valley Medical Center12-03-2024 NoteHNO ID: [id number] Author: FEMI BAEZA MD Service: ? Author Type: Physician Type: Progress Notes Filed: 02/04/2024 12:52 Note Text: This note was created using Brainparkter. Subjective Leonel Andre is a 78 year old female. She started with rhinorrhea 3 weeks ago, followed by purulent nasal drainage, postnasal drainage, and none productive cough. Other symptoms were some ear pain and decreased hearing on the left. She went to the [facility] where she reported testing negative for [...] hypertension and principles of treatment Femi Baeza [facility]11-15-2024 History of Present illness Narrative* Femi Baeza MD - 01/17/2024 2:04 PM EST This note was created using NoteWriter. Subjective Patient presents with: ER F/U: [facility] ER right flank pain Leonel Andre is a 78 year old female. She had chronic right flank pain radiating around the side to her pelvic area. She felt this had worsened and associated with some urinary symptoms, went tot ER for evaluation. No urinary tract infection was found. 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 Other associated symptom was constipation. Bowel movements [...] C (98.1 F) Ht 162.6 cm (5' 4) Wt 64 kg (141 lb 1.5 oz) [...] LUBIPROSTONE 24 MCG CAPSULE Femi Baeza MD documented in this encounterUpper Valley Medical Center11-15-2024 NoteHNO ID: [id number] Author: FEMI BAEZA MD Service: ? Author Type: Physician Type: Progress Notes Filed: 01/17/2024 15:26 Note Text: This note was created using PT [employer]ik[employer] Network[employer]. Subjective Patient presents with: ER F/U: [facility] ER right flank pain Leonel Andre is a 78 year old female. She had chronic right flank pain radiating around the side to her pelvic area. She felt this had worsened and associated with some urinary symptoms, went to the ER for evaluation. No urinary tract infection was found. 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 Other associated symptom was constipation. Bowel movements [...] ?C (98.1 ?F) Ht 162.6 cm (5' 4) Wt 64 kg (141 lb 1.5 oz) [...] - LUBIPROSTONE 24 MCG CAPSULE Femi Baeza [facility]11-14-2024 NoteHNO ID: [id number] Author: JAYE CARABALLO MA Service: ? Author Type: Ornamental Metal Worker Type: Progress Notes Filed: 01/16/2024 12:19 Note Text: POPULATION HEALTH NAVIGATION OUTREACH Action/FYI CM Pool Message: Type: [facility] Navigation Team: Ms. Andre was in the ED 01-13-24 for right flank pain that was suspected to be musculoskeletal. Please call and offer to schedule an ED follow up appointment with her PCP. Patient discharged from [facility] Discharge date: 01/13/24 Seen for: Rght flank pain Outcome: 1st attempt. Spoke with patient. Appointment scheduled for 01/17/24. Reason for Outreach Community Monitoring/Network Navigator Pools AND Phone Line: [facility] Patient Contacted: Spoke to patient/parent/or legal guardian Patient identified by name and : Yes Community Monitoring/Network Navigator Pools AND Phone Line actions taken: Patient scheduled: ER Follow-up 01/17/2024 in [facility] with FEMI BAEZA - ED follow up, [facility] 01/13/24, DX Rght flank pain [facility] - Medicare Wellness Navigation Signature: Jaye Caraballo MA January 16, 2024 12:11 [facility]11-14-2024 History of Present illness Narrative* Jaey Caraballo MA - 01/16/2024 12:11 PM EST POPULATION HEALTH NAVIGATION OUTREACH Action/FYI CM Pool Message: Type: [facility] Navigation Team: Ms. Andre was in the ED 01-13-24 for right flank pain that was suspected to be musculoskeletal. Please call and offer to schedule an ED follow up appointment with her PCP. Patient discharged from [facility] Discharge date: 01/13/24 Seen for: Rght flank pain Outcome: 1st attempt. Spoke with patient. Appointment scheduled for 01/17/24. Reason for Outreach Community Monitoring/Network Navigator Pools & Phone Line: [facility] Patient Contacted: Spoke to patient/parent/or legal guardian Patient identified by name and : Yes Community Monitoring/Network Navigator Pools & Phone Line actions taken: Patient scheduled: ER Follow-up 01/17/2024 in [facility] with FEMI BAEZA - ED follow up, [facility] 01/13/24, DX Rght flank pain 03/18/2024 in [facility] with FEMI BAEZA - Medicare Wellness Navigation Signature: Jaye Caraballo MA January 16, 2024 12:11 PM * Candace Caceres RN - 01/16/2024 11:58 AM EST [facility] PRINCE RN Patient identified by name and date of . Reason for review or outreach: Chart Review [facility] Utilization REQUESTED ACTION/FYI: A follow-up appointment is not noted in patient's record. We are forwarding this patient to NetworkNavigation to schedule a follow-up appointment. Navigation Team: [...] Referrals/Routed: Population Health Navigation: Appointment. Router to COMMUNITY MONITORING PSS POOL [[id number]] Contact made with patient: No, Chart review only. Signature: Candace Caceres RN documented in this encounterUpper Valley Medical Center11-14-2024 NoteHNO ID: [id number] Author: CANDACE CACERES RN Service: ? Author [...] FINDINGS/SUMMARY: None Patient Attributed To: QAE Payer: Sophiablayne ANAND Action Taken: Referrals/Routed: Population Health Navigation: Appointment. Router to [facility] [[id number]] Contact made with patient: No, Chart review only. Signature: Candace Caceres RNNewark Hospital11-14-2024 NotePatient Outreach ([facility]) LEONEL ANDRE ([id number]) 1945 F Date Time Provider Department 01/16/24 CANDACE CACERES During your visit today, we recorded the following information about you: Candace Caceres RN 01/16/2024 12:04 PM Signed [facility] PRINCE RN Patient identified by name [...] Referrals/Routed: Population Health Navigation: Appointment. Router to COMMUNITY MONITORING PSS POOL [[id number]] Contact made with patient: No, Chart review only. Signature: WALTER Martinez Lisa L, MA 01/16/2024 12:19 PM Signed POPULATION HEALTH NAVIGATION OUTREACH Action/FYI Pool Message: Type: [facility] Navigation Team: Ms. Andre was in the ED 01-13-24 for right flank pain that was suspected to be musculoskeletal. Please call and offer to schedule an ED follow up appointment with her PCP. Patient discharged from [facility] Discharge date: 01/13/24 Seen for: Rght flank pain Outcome: 1st attempt. Spoke with patient. Appointment scheduled for 01/17/24. Reason for Outreach Community Monitoring/Network Navigator Pools AND Phone Line: [facility] Patient Contacted: Spoke to patient/parent/or legal guardian Patient identified by name and : Yes Community Monitoring/Network Navigator Pools AND Phone Line actions taken: Patient scheduled: ER Follow-up 01/17/2024 in [facility] with FEMI BAEZA - ED follow up, [facility] 01/13/24, DX Rght flank pain 03/18/2024 in [facility] with FEMI BAEZA - Medicare Wellness Navigation Signature: Jaye Caraballo MA January 16, 2024 12:11 PM Allergies As of Date: 01/16/2024 Noted Allergy Reaction DUST 11/08/2004 LEXAPRO (ESCITALOPRAM OXALATE) 12/26/2015 14 - Other: See Comments Comments: Dizziness, rosi LISINOPRIL 05/29/2010 7 - Swelling Comments: Swelling in her throat. MOLD 11/08/2004 NEXIUM (ESOMEPRAZOLE MAGNESIUM) 11/08/2004 11 - Vomiting NEXIUM (ESOMEPRAZOLE MAGNESIUM) 10/26/2016 6 - Diarrhea Comments: but was able to take pantoprazole RAGWEED 11/08/2004 Date Reviewed: 11/08/2023 Reviewed by: César Dominguez MA - Fully Assessed Reason for Visit: ACM PRINEC RN [[id number]] Cmt: ED Utilization Review per request of [...] Degeneration of intervertebral disc (more content not included)...[facility]10-07-2024 Telephone encounter Note* Telephone Encounter - Claribel [...] Cherry LPN December 09, 2023 9:52 AM [facility]10-[facility] Miscellaneous Notes* Telephone Encounter - Claribel Cherry [...] 09, 2023 9:52 AM documented in this encounterUpper Valley Medical Center09-11-2024 Telephone encounter Note * Telephone Encounter - Madelaine Griffiths LPN - 11/13/2023 8:14 AM EDT Patient notified of below results/recommendations, has an appt with Endo next month. Madelaine Griffiths LPN [facility]09-11-2024 Miscellaneous Notes* Telephone Encounter - Madelaine Griffiths [...] density, especially inthe spine. Recommend follow-up with beam builder concerning these results since she is managing the Prolia injections/osteoporosis Xuan M Abi, WASTE RECYCLER.ELECTRONIC WARFARE TECHNICAL documented in this encounterUpper Valley Medical Center09-11-2024 Telephone encounter Note * Telephone Encounter - Madelaine Griffiths LPN - 11/13/2023 8:12 AM EDT ----- Message from Xuan Brandon APRN.ELECTRONIC WARFARE TECHNICAL sent at 11/13/2023 7:57 AM EDT ----- Please let the patient know there has been a signficant decrease in her bone density, especially inthe spine. Recommend follow-up with beam builder concerning these results since she is managing the Prolia injections/osteoporosis Xuan Brandon APRN.ELECTRONIC WARFARE TECHNICAL [facility]09-09-2024 History of Present illness Narrative* Teofilo Mahan RT(R) - 11/11/2023 1:40 PM EDT Radiology [...] PATIENT PRESENTS WITH AN IMPLANTABLE OR ATTACHED TRAINING MANAGER: No RADIOLOGY DEPARTMENT: Bone Density PERIPHERAL IV DATA: Not applicable SIGNED BY: RT Buffy(Jose) November 11, 2023 1:42 PM documented in this encounterUpper Valley Medical Center09-09-2024 NoteHNO ID: [id number] Author: HARDY, TEOFILO, RT(R) Service: ? Author Type: Technologist Type: [...] PATIENT PRESENTS WITH AN IMPLANTABLE OR ATTACHED TRAINING MANAGER: No RADIOLOGY DEPARTMENT: Bone Density PERIPHERAL IV DATA: Not applicable SIGNED BY: RT Buffy(R) November 11, 2023 1:42 [facility]09-06-2024 NoteHNO ID: [id number] Author: XUAN BRANDON APRN.ELECTRONIC WARFARE TECHNICAL Service: ? Author Type: Nurse Practitioner Type: Progress Notes Filed: 11/08/2023 13:36 Note Text: CC: Patient presents with: UTI: Weeks c/p abdominal cramping, burning with urination HPI [...] maternal cousin Coronary Artery Disease Brother of MD at 54. Social History Tobacco Use Smoking [...] She is not ill-appe (more content not included)...[facility]09-06-20[facility] History of Present illness Narrative* Xuan Brandon, WASTE RECYCLER.ELECTRONIC WARFARE TECHNICAL - 11/08/2023 1:13 PM EDT CC: Patient presents with: UTI: Weeks c/p abdominal cramping, burning with urination HPI [...] maternal cousin Coronary Artery Disease Brother of MD at 54. Social History Tobacco Use Smoking [...] plan. Xuan Brandon APRN.CNP documented in this encounterUpper Valley Medical Center07-22-2024 History of Present illness Narrative* Xuan Brandon APRN.CNP - 09/23/2023 2:46 PM EDT Images from the original note were not included. CC: Patient presents with: alva biopsy HPI Leonel Andre is a 78 [...] carcinoma LIG/TRNSXJ FLP TUBE ABDL/VAG APPR UNI/BI 1976 Tubal ligation ALLERGIES Dust, Lexapro [Escitalopram Oxalate], [...] maternal cousin Coronary Artery Disease Brother of MD at 54. Social History Tobacco Use Smoking [...] plan. Xuan Brandon APRN.NICOLE documented in this encounterUpper Valley Medical Center07-22-2024 Instructions* Patient Instructions* Xuan Brandon APRN.CNP - 09/23/2023 2:46 PM EDT SHAVE BIOPSY [...] amount of discharge or oozing please call [phone] documented in this encounterUpper Valley Medical Center07-10-2024 History of Present illness Narrative* Xuan Brandon [...] Bilateral 02/21/2012 Knee replacement, total, Bilateral CHOLECYSTECTOMY 1980 open COLONOSCOPY FLX DX W/COLLJ SPEC WHEN [...] maternal cousin Coronary Artery Disease Brother of MD at 54. Social History Tobacco Use Smoking [...] 12/13/2016 Behavioral Health Screening Never done Covid-19 Vaccine(2022- season) due on 07/05/2023 DTaP,Tdap,Td Vaccine(1 - [...] exercise as tolerated - DXA-AXIAL SKELETON - DXA TRABECULAR BONE SCORE (TBS) 4. Encounter for lipid screening for cardiovascular disease - ICD9: V77.91, V81.2, ICD10: Z13.220, Z13.6 - LIPID PANEL BASIC Prescription instructions reviewed with patient as applicable. Potential red flag symptoms discussed with the patient. Reviewed appropriate action plan to take if red flag symptoms occur. Patient agreeable to treatment plan. Xuan Brandon APRN.ELECTRONIC WARFARE TECHNICAL documented in this encounterUpper Valley Medical Center07-05-2024 Telephone encounter Note * Telephone Encounter - [...] Cherry LPN September 06, 2023 7:32 AM [facility]07-05-[facility] Miscellaneous Notes* Telephone Encounter - Claribel Cherry [...] 06, 2023 7:32 AM documented in this encounterUpper Valley Medical Center05-06-2024 Telephone encounter Note * Telephone Encounter - [...] Please advise. Thank you. Tamara Gaviria MA. [facility]05-06-2024 Miscellaneous Notes* Telephone Encounter - Tamara Gaviria [...] you. Tamara Gaviria MA. documented in this encounterUpper Valley Medical Center04-05-2024 Miscellaneous Notes* Telephone Encounter - César Dominguez [...] you. César Dominguez MA. documented in this encounterUpper Valley Medical Center03-06-2024 History of Present illness Narrative* Xuan Brandon, WASTE RECYCLER.ELECTRONIC WARFARE TECHNICAL - 05/08/2023 3:12 PM EST CC Patient [...] carcinoma LIG/TRNSXJ FLP TUBE ABDL/VAG APPR UNI/BI 1976 Tubal ligation ALLERGIES Dust, Lexapro [Escitalopram Oxalate], [...] maternal cousin Coronary Artery Disease Brother of MD at 54. Social History Tobacco Use Smoking [...] Patient agreeable to treatment plan Xuan Brandon APRN.ELECTRONIC WARFARE TECHNICAL documented in this encounterUpper Valley Medical Center12-01-2023 History of Present illness Narrative* Rebecca Stacy MA - 02/01/2023 2:34 PM EST POPULATION HEALTH NAVIGATION OUTREACH Action/ Last Wellness exam 01/22/2022 Patient Identified by Name and : NO Outreach Outcome/Action Unable to reach patient: Left message [email or web address] message sent Did you use a PCP [...] 03/04/2022 Influenza Vaccine(1) due on 11/02/2022 Covid-19 Vaccine(6 - 2023-24 season) due on 11/02/2022 Navigation Signature: Rebecca López MA February 01, 2023 2:35 PM documented in this encounterUpper Valley Medical Center10-17-2023 Miscellaneous Notes* Telephone Encounter - Rebecca Rosado RN - 12/18/2022 4:35 PM EDT Patient reports she tested positive today on home covid test. Reports her symptoms: ALCANTAR, cough started last Saturday morning. Reports she was seen at [facility] yesterday and prescribed amoxicillin 875 mg for [...] or SOB. Patient agreeable. documented in this encounterUpper Valley Medical Center10-09-2023 Miscellaneous Notes* Telephone Encounter - Madelaine Griffiths LPN - 12/10/2022 10:01 AM EDT Patient [...] you. Madelaine Griffiths LPN documented in this encounterUpper Valley Medical Center09-19-2023 Miscellaneous Notes* Telephone Encounter - Madelaine Griffiths LPN - 11/20/2022 4:13 PM EDT TC to Peg, she has already had the first Prolidase injection. Let her know that I have faxed last 2 bone density reports, 12/24/2019 & 12/13/[address] César Johnson, she has access to [facility] and will be able to see what infusion Patient had in past. Peg, reports Dr. César Johnson is working on getting injection approved. Madelaine Griffiths LPN * Telephone Encounter - Tessy Bynum LPN - 11/20/2022 3:21 PM EDT Pt called in and she reports she saw Dr. César Johnson Sales Correspondent and they want to put pt on Prolidase. This is very expensive and pt is asking for the following: She contacted her insurance and they instructed her to get copies of the last couple bone densitiestesting she has had done and any medications used. After her last Bone Density test pt reports she was sent to [facility] by Dr. Baeza to have a medication [...] pt. Tessy Bynum LPN documented in this encounterUpper Valley Medical Center09-15-2023 Miscellaneous Notes* Telephone Encounter - Claribel Cherry [...] advise. Claribel Cherry LPN documented in this encounterUpper Valley Medical Center08-28-2023 Miscellaneous Notes* Telephone Encounter - Madelaine Griffiths [...] PM EDT ----- Message from Xuan Nichole APRN.ELECTRONIC WARFARE TECHNICAL sent at 10/29/2022 1:02 PM EDT ----- Urine culture was negative for infection, how is patient feeling? Xuan Nichole APRN.ELECTRONIC WARFARE TECHNICAL documented in this encounterUpper Valley Medical Center08-23-2023 History of Present illness Narrative* Xuan Nichole APRN.ELECTRONIC WARFARE TECHNICAL - 10/24/2022 3:46 PM EDT CC: Patient [...] plan. Xuan Nichole APRN.CNP documented in this encounterUpper Valley Medical Center08-22-2023 Miscellaneous Notes* Telephone Encounter - César Dominguez [...] theoffice Xuan Nichole APRN.CNP documented in this encounterUpper Valley Medical Center07-24-2023 History of Present illness Narrative* Berta Jauregui MA - 09/24/2022 10:32 AM EDT POPULATION HEALTH NAVIGATION OUTREACH Action/FYI Unable to lm, mychart sent to pt to schedule wellness due after 01/23/2023, no CG over 77 Patient Identified by Name and : NO Outreach Outcome/Action Unable to reach patient: Phone number not valid / voicemail full Vit[employer] Grouphart message sent Did you use a PCP [...] 24, 2022 10:34 AM documented in this encounterUpper Valley Medical Center04-10-2023 Miscellaneous Notes* Telephone Encounter - César Dominguez Ma - 06/11/2022 11:43 AM EDT ADAM: 01/22/2022 Last refill: 07/19/2021 QTY: 180 Refills: 3 documented in this encounterUpper Valley Medical Center03-26-2023 Miscellaneous Notes* Telephone Encounter - Femi Baeza [...] seven days of my reply. See the Linux Voice message reply for my assessment and plan. I spent a total of 5 minutes minutes reviewing the patient's prior medical records and current request for medical advice, prescribing medications or ordering tests (if applicable), replying to the patient, and documenting the encounter. documented in this encounterUpper Valley Medical Center03-22-[address] Andrews [facility] May 23, 2022 9:07pm Note Date/Time May 23, 2022 6:5 0pm [facility] Medical Records Department [address] [place] [address] Emergency Department Summary 05/23/22 MR#: [id number] Acct: [id number] Name: LEONEL ANDRE Rep #:[id number] 3 : 1945 77 From: Calvin Andrews [...] PO DAILY 12/26/15 [History Last Taken Unknown] akdiskel-cmi-xmjlq acid 0.4 mg-lycopene 300 mcg-lutein 250 mcg [...] record(s) reviewed:: [facility] ([facility] [...] 5 MG tablet 5 mg PO BID teywyzzi-xmx-WH-lycopen-lutein [Centrum Silver] 1 EACH tablet 1 ea [...] your Primary Care Provider. Call [facility] ([phone]) or report to the closest Emergency Room. Call 911 if necessary. 05/23/222106 <Electronically signed by Calvin Andrews MD> Rupert Signature (if applicable): CC: Dr. Femi Baeza MD ~ Signed [facility] Work Phone: [phone]) 954-206603-14-2023 Miscellaneous Notes* Telephone Encounter - Madelaine Griffiths LPN - 05/15/2022 8:25 AM EDT Referral info faxed to [facility] Endo. Madelaine Griffiths LPN * Telephone Encounter - Xuan Nichole APRN.CNP - 05/15/2022 7:46 AM EDT Please fax referral to endocrinology at [facility] Xuan Nichole APRN.NICOLE documented in this encounterUpper Valley Medical Center01-09-2023 Miscellaneous Notes* Telephone Encounter - Xuan Nichole [...] pharmacy. César Dominguez Ma documented in this encounterUpper Valley Medical Center12-13-2022 Miscellaneous Notes* Telephone Encounter - Amie Atkins [...] EST Called and spoke with Aliza from [facility]. Aliza states that they have current office [...] - 2022 11:39 AM EST Aliza from [facility] calls and states that Dr. Johnson has looked over patient's office visit and labs. Dr. Johnson thinks the reason for patient's problems is that Vitamin D level is low.Dr. Johnson recommends treating patient for this and the repeat labs. If problem continues refax referral. Please review and advise, Migdalia Metz RN documented in this encounterUpper Valley [facility] Center11-29-2022 Miscellaneous Notes* Telephone Encounter - Yareli Lentz LPN - 01/30/2022 11:09 AM EST Aliza with [facility] calls to report she only received a couple of pages of fax for pt's referral. Re-faxed referral, OV notes, recent labs, and med list to: [phone] as requested. Yareli Lentz LPN documented in this encounterUpper Valley Medical Center11-21-2022 Instructions* Patient Instructions* Xuan Nichole APRN.NICOLE - 01/22/2022 1:30 PM EST Screening schedule [...] review all the medicines you take, even owcv-nkl-gfhjllc medicines. As you get older, the way [...] have certain medical conditions. documented in this encounterUpper Valley Medical Center11-21-2022 History of Present illness Narrative* Xuan Nichole APRN.CNP - 01/22/2022 1:29 PM EST Leonel Andre is a 76 year old female here for a Medicare Subsequent Annual Wellness Visit Health Risk Assessment In general, health is: Good Concerns with tiredness, difficulties with sexual function, balance, teeth/dentures: Not at all [place] anxious, stressed, angry, irritable, lonely, isolated, or [...] PCP - General Outside specialists seen: orthopedics- [facility], pain management- [facility],urology- [...] at this time. - Patient was counseled [id number] by myself (the billing provider) for the [...] BLOOD - PTH INTACT BLD Xuan Nichole APRN.ELECTRONIC [employer]ARFARE TECHNICAL documented in this encounterUpper Valley Medical Center11-15-2022 History of Present illness Narrative* Katya Fay - 01/16/2022 1:18 PM EST POPULATION HEALTH NAVIGATION OUTREACH Action/ZINA cabrales Patient due for the following: Colorectal Cancer Screening Advance Directive discussion Left voicemail for patient to return call [facility] message sent Pt identified by name and : NO Outreach Outcome/Action Unable to reach patient: Left message [employer] message sent Did you use a PCP [...] 16, 2022 1:18 PM documented in this encounterUpper Valley Medical Center11-15-2022 Miscellaneous Notes* Telephone Encounter - Katya Fay - 01/16/2022 1:16 PM EST Opened in error documented in this encounterUpper Valley Medical Center07-13-2022 Miscellaneous Notes* Telephone Encounter - Xuan Nichole [...] pharmacy. César Dominguez Ma documented in this encounterUpper Valley Medical Center05-09-2022 Miscellaneous Notes* Telephone Encounter - Yesica Clark LPN - 07/10/2021 11:05 AM EDT rec'd fax from [facility] of CT completed 07/07/21and ordered by Dr. Negro a urologist of pt noting an increase of a renal mass. fyi to pcp. documented in this encounterUpper Valley Medical Center04-21-2022 Miscellaneous Notes* Telephone Encounter - Nai Lopes RN - 06/22/2021 11:16 AM EDT Michelle from [facility] called and asked for us to fax over a copy of Pts Kidney/Bladder US. Faxed to # [phone]. documented in this encounterUpper Valley Medical Center04-13-2022 History of Present illness Narrative* Femi Baeza MD - 06/14/2021 3:48 PM EDT This note was created using [employer]. Subjective Leonel Andre is a 76 year old female. She went to the [facility] for lower abdominal pain, dysuria, recurrent for [...] PNL Femi Baeza MD documented in this encounterUpper Valley Medical Center07-31-2014 History of Past illness Narrative* Problem Noted [...] of this encounter (statuses as of 06/15/2021) [facility] of [facility] Narrative* Problem Noted [...] of this encounter (statuses as of 06/20/2021) [facility] of Past illness Narrative* Problem Noted [...] of this encounter (statuses as of 06/22/2021) [facility] of Past illness Narrative* Problem Noted [...] of this encounter (statuses as of 07/12/2021) [facility] of Past illness Narrative* Problem Noted [...] of this encounter (statuses as of 09/13/2021) [facility] of Past illness Narrative* Problem Noted [...] of this encounter (statuses as of 01/16/2022) [facility] of Past illness Narrative* Problem Noted [...] of this encounter (statuses as of 01/16/2022) [facility] of [facility] Narrative* Problem Noted [...] of this encounter (statuses as of 01/22/2022) [facility] illness Narrative* Problem Noted [...] of this encounter (statuses as of 01/30/2022) [facility] illness Narrative* Problem Noted [...] of this encounter (statuses as of 01/30/2022) [facility] Narrative* Problem Noted [...] of this encounter (statuses as of 02/13/2022) [facility] Narrative* Problem Noted [...] of this encounter (statuses as of 03/13/2022) [facility] Narrative* Problem Noted [...] of this encounter (statuses as of 05/15/2022) [facility] Narrative* Problem Noted [...] of this encounter (statuses as of 05/15/2022) [facility] Narrative* Problem Noted [...] of this encounter (statuses as of 05/27/2022) [facility] Narrative* Problem Noted [...] of this encounter (statuses as of 06/11/2022) [facility] Narrative* Problem Noted [...] of this encounter (statuses as of 07/13/2022) [facility] Narrative* Problem Noted [...] of this encounter (statuses as of 07/31/2022) [facility] Narrative* Problem Noted [...] of this encounter (statuses as of 09/24/2022) [facility] Narrative* Problem Noted [...] of this encounter (statuses as of 10/23/2022) [facility] Narrative* Problem Noted [...] of this encounter (statuses as of 10/25/2022) [facility] Narrative* Problem Noted [...] of this encounter (statuses as of 10/30/2022) [facility] Narrative* Problem Noted [...] of this encounter (statuses as of 11/16/2022) [facility] Narrative* Problem Noted [...] of this encounter (statuses as of 11/21/2022) [facility] Narrative* Problem Noted [...] of this encounter (statuses as of 12/10/2022) [facility] Narrative* Problem Noted [...] of this encounter (statuses as of 12/19/2022) [facility] Narrative* Problem Noted [...] of this encounter (statuses as of 02/01/2023) [facility] Narrative* Problem Noted [...] of this encounter (statuses as of 04/09/2023) [facility] Narrative* Problem Noted [...] of this encounter (statuses as of 05/08/2023) [facility] Narrative* Problem Noted [...] of this encounter (statuses as of 06/08/2023) [facility] CenterConsult note Author Calos Shaffer [facility] Note Date/Time June 12, 2024 1:[address] [facility] Medical Records Department [address] [place] [address] Anesthesia Postop Eval I 06/12/24 1346 MR#: [id number] Acct: [id number] Name: LEONEL ANDRE Rep #:[id number] 1 : 1945 79 From: Calos Shaffer PCP: Dr. Femi Baeza MD Status:R EG SDC Y Race: C Location: [place] [address] Anesthesia: Postop Eval I Current Vital Signs [...] by Calos Shaffer > Date _ Calos Emery Signature: Date CC: ~ Signed [facility] Work Phone: Consult note Author Jed Rubio [facility] Note Date/Time June 12, 2024 2:[address] [facility] Medical Records Department [address] [place] [address] Anesthesia Postop Eval II 06/12/24 1355 MR#: [id number] Acct: [id number] Name: LEONEL ANDRE Rep #:[id number] 3 : 1945 79 From: Jed Rubio MD PCP: Dr. Femi Baeza MD Status:R EG SDC Y Race: C Location: [address] Anesthesia Postop Eval I Sum Postop Eval [...] MD Cosigner Signature: Date CC: ~ Signed [facility] Work Phone: Evaluation note* Diagnosis Lower abdominal pain- Primary Abdominal pain, other specified site Essential hypertension Unspecified essential hypertension Dysuria Other microscopic hematuria Vitamin D deficiency Unspecified vitamin D deficiency Hypercalcemia [facility] Diagnosis Lower abdominal pain Abdominal pain, other specified site Dysuria Other microscopic hematuria documented in this encounter [facility] CenterEvalub[facility] noteNo assessment information availableWPeoples Hospital Work Phone: Evaluation note* Diagnosis Anxiety Anxiety state, unspecified [facility]* Diagnosis Medicare annual wellness visit, subsequent- Primary Routine general medical examination at a health care facility Encounter for immunization Need for other specified prophylactic vaccination against single bacterial disease Hypercalcemia documented in this encounter [facility]* Diagnosis Hypercalcemia- Primary Vitamin D deficiency Unspecified vitamin D deficiency documented in this encounter [facility]* Diagnosis Anxiety Anxiety state, unspecified documented in this encounter [facility]* Diagnosis Hypercalcemia- Primary documented in this encounter [facility]* Diagnosis Radiculopathy, lumbar region- Primary Thoracic or lumbosacral neuritis or radiculitis, unspecified documented in this encounter [facility]* Diagnosis Essential hypertension Unspecified essential hypertension documented in this encounter [facility]* Diagnosis Urinary tract infection without hematuria, site unspecified- Primary documented in this encounter [facility]* Diagnosis Onset Date Resolution Status 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 Primary hyperparathyroidism chronic [facility] Work Phone: Evaluation note* Diagnosis Urge incontinence documented in this encounter [facility]* Diagnosis Anxiety Anxiety state, unspecified documented in this encounter [facility]* Diagnosis Essential hypertension- Primary Unspecified essential hypertension Dysuria documented in this encounter [facility]* Diagnosis Anxiety Anxiety state, unspecified [facility]* Diagnosis Essential hypertension Unspecified essential hypertension documented in this encounter [facility]* Diagnosis Anxiety Anxiety state, unspecified documented in this encounter [facility]* Diagnosis Essential hypertension- Primary Unspecified essential hypertension Urge incontinence Osteoporosis, unspecified osteoporosis type, unspecified pathological fracture presence Encounter for lipid screening for cardiovascular disease Screening for lipoid disorders documented in this encounter [facility]* Diagnosis Skin lesion of back- Primary Unspecified disorder of skin and subcutaneous tissue Changing skin lesion Unspecified disorder of skin and subcutaneous tissue documented in this encounter [facility]* Diagnosis Dysuria- Primary Urinary frequency documented in this encounter [facility]* Diagnosis Osteoporosis, unspecified osteoporosis type, unspecified pathological fracture presence documented in this encounter [facility]* Diagnosis Urge incontinence Anxiety Anxiety state, unspecified documented in this encounter [facility]* Diagnosis Radiculopathy, lumbar region- Primary Thoracic or lumbosacral neuritis or radiculitis, unspecified Pain in right hip Pain in joint, pelvic region and thigh Chronic idiopathic constipation Unspecified constipation [facility]* Diagnosis Rhinosinusitis- Primary Unspecified sinusitis (chronic) Impacted cerumen of both ears Impacted cerumen Essential hypertension Unspecified essential hypertension documented in this encounter [facility]* Diagnosis Gastrointestinal hemorrhage, unspecified gastrointestinal hemorrhage type- Primary Constipation, unspecified constipation type Mass of right kidney Unspecified disorder of kidney and ureter documented [facility] this encounter [facility]* Diagnosis Medicare annual wellness visit, subsequent- [...] pathological fracture presence [facility]* Diagnosis Essential hypertension Unspecified essential hypertension documented in this encounter [facility]* Diagnosis Urge incontinence documented in this encounter [facility]* Diagnosis Anxiety Anxiety state, unspecified documented in this encounter [facility]* Diagnosis Lower leg edema- Primary Edema Essential hypertension Unspecified essential hypertension Chronic idiopathic constipation Unspecified constipation Weight loss, non-intentional Loss of weight Polyp of colon, unspecified part of colon, unspecified type documented in this encounter [facility]* Diagnosis Essential hypertension Unspecified essential hypertension documented in this encounter [facility]* Diagnosis Acute non-recurrent maxillary sinusitis- Primary Neck pain Cervicalgia documented in this encounter [facility]* Diagnosis Acute pain of both knees- [...] neck pain Cervicalgia [facility]* Diagnosis Acute pain of both knees Fall on same level from slipping, tripping or stumbling, initial encounter Age related osteoporosis, unspecified pathological fracture presence Acute pain of right shoulder Chronic neck pain Cervicalgia [facility]* Diagnosis Anxiety Anxiety state, unspecified documented in this encounter [facility]* Diagnosis Essential hypertension- Primary Unspecified essential hypertension Vitamin D deficiency Unspecified vitamin D deficiency documented in this encounter [facility]* Diagnosis Dysuria- Primary Lower leg edema Edema Essential hypertension Unspecified essential hypertension Acute pain of right shoulder Primary osteoarthritis of right shoulder Primary localized osteoarthrosis, shoulder region Chronic idiopathic constipation Unspecified constipation documented [facility] this encounter [facility] Author Krzysztof Friend [facility] Note Date/Time June 12, 2024 1:0 4pm [facility] Medical Records Department [address] [place] [id number] History & Physical Exam 06/12/24 1302 MR#: [id number] Acct: [id number] Name: LEONEL ANDRE Rep #:[id number] 1 : 1945 79 From: Krzysztof Arroyo DO PCP: Dr. Femi Baeza MD Status:R [facility] Location: [place] [address] HPI - General General Date of Admission: 06/12/24 Date of Service: 06/12/24 Chief Complaint: Constipation HPI Narrative LEONEL ANDRE, is a 79 F who presents with the chief Complaint: constipation [facility] ED 02.21.24 w/ watery diarrhea followed by [...] could be due to slowly growing tumor. [facility] ED 03.16.24; with no bowel movement for 3 weeks and mild intermittent rectal bleeding. [facility] 03.16.24; Moderate to large amount of colonic stool and gas. [facility] ED 1 with constipation and suspected rectal [...] having a bmas this has caused her prolapse to fall out and bleed in the past. She denies abd pain, n/v, diarrhea or heartburn. [facility] Medical History Wears glasses Cancer Anxiety Ambulates [...] denosumab 60 mg/mL subcutaneous 60 mg subcut [id number] #1 mL 10/03/22 Unknown Rx syringe (Prolia) [...] Femi Baeza MD; Krzysztof Arroyo DO~ Signed [facility] Work Phone: Hospital Discharge instructionsWooPaulding [facility] Work Phone: Hospital Discharge instructionsAdditional Instructions DISCHARGE INSTRUCTIONS PLEASE READ *Please take this with you to your next doctors appointment* - Your hydrochlorothiazide has been held, this may have caused or contributed to your low sodium and potassium on presentation which can worsen weakness - Please continue your bowel regimen and it is advised to follow-up with your coil builder upon discharge for continued management of your constipation -Please follow-up with Dr. Negro for your kidneys upon discharge. Please call their office to schedule hospital follow-up appointment upon discharge. -Please call your primary care provider's office upon discharge to schedule a hospital follow up within 1 week. -For any concerning signs or symptoms please call 911 or proceed to the nearest emergency department Date of Discharge: 12/09/24[facility] Work Phone: Reason for referral (narrative)* Diagnostic Procedure Only (Routine) - Authorized Specialty Diagnoses / Procedures Referred By Kristina kurtz Referred To Contact US IMAGING Diagnoses Lower abdominal pain Dysuria Other microscopic hematuria Procedures US KIDNEY/BLADDER US RETROPERITONEAL REAL TIME W/IMAGE COMPLETE Femi Baeza MD [address] [place], [place] [id number] Us Imaging Referral ID Status Reason Start Date Expiration Date Visits Requested Visits Authorized [id number] Authorized Auto-Generat ed Referral 06/14/2021 07/14/2022 [address] [facility] for referral (narrative)* Diagnostic Procedure Only (Routine) - Closed Specialty Diagnoses / Procedures Referred By Kristina kurtz Referred To Contact US IMAGING Diagnoses Lower abdominal pain Dysuria Other microscopic hematuria Procedures US KIDNEY/BLADDER US RETROPERITONEAL REAL TIME W/IMAGE COMPLETE Femi Baeza MD [address] [place] [id number] Us Imaging Referral ID Status Reason Start Date Expiration Date V isits Requested Visits Authorized [id number] Closed Auto-Generate d Referral 06/14/2021 07/14/2022 [address] [facility] for referral (narrative)* Diagnostic Procedure Only (Routine) - Pending Review Specialty Diagnoses / Procedures Referred By Contac t Referred To Contact XR IMAGING Diagnoses Osteoporosis, unspecified osteoporosis type, unspecified pathological fracture presence Procedures DXA-AXIAL SKELETON Xuan Brandon APRN.ELECTRONIC [employer]ARFARE TECHNICAL [address] [place] [address] [place] [address] Referral ID Status Reason Start Date Expiration Date Visits Requested Visits Authorized [id number] Pending Review Auto-Generat ed Referral 09/11/2023 10/10/2024 [address] [facility] for referral (narrative)* Diagnostic Procedure Only (Routine) - Closed Specialty Diagnoses / Procedures Referred By Contac t Referred To Contact XR IMAGING Diagnoses Osteoporosis, unspecified osteoporosis type, unspecified pathological fracture presence Procedures DXA-AXIAL SKELETON Xuan Brandon APRN.ELECTRONIC WARFARE TECHNICAL [address] [place] [address] [place] [address] Referral ID Status Reason Start Date Expiration Date V isits Requested Visits Authorized [id number] Closed Auto-Generate d Referral 09/11/2023 10/10/2024 [address] [facility] for referral (narrative)No reason for referral information availableHealthsouth [facility] Work Phone: Reason for visit Narrative* Diagnostic Procedure Only (Routine) - Closed Specialty Diagnoses / Procedures Referred By Contac t Referred To Contact US IMAGING Diagnoses Lower abdominal pain Dysuria Other microscopic hematuria Procedures US KIDNEY/BLADDER US RETROPERITONEAL REAL TIME W/IMAGE COMPLETE Femi Baeza MD [address] [place] [address] Us Imaging Referral ID Status Reason Start Date Expiration Date V isits Requested Visits Authorized [id number] Closed Auto-Generate d Referral 06/14/2021 07/14/2022 [address] [facility] for visit Narrative* Diagnostic Procedure Only (Routine) - Closed Specialty Diagnoses / Procedures Referred By Contac t Referred To Contact XR IMAGING Diagnoses Osteoporosis, unspecified osteoporosis type, unspecified pathological fracture presence Procedures DXA-AXIAL SKELETON Xuan Brandon, WASTE RECYCLER.ELECTRONIC WARFARE TECHNICAL [address] [place] [address] [place] [address] Referral ID Status Reason Start Date Expiration Date V isits Requested Visits Authorized [id number] Closed Auto-Generate d Referral 09/11/2023 10/10/2024 [address] [facility] for visit Narrative* Diagnostic Procedure Only (Routine) - Closed Specialty Diagnoses / Procedures Referred By Contac t Referred To Contact XR IMAGING Diagnoses Chronic neck pain Age related osteoporosis, unspecified pathological fracture presence Procedures XR CERVICAL 2V FLEX/EXT RADEX SPINE CERVICAL 2 OR 3 VIEWS Xuan Brandon, WASTE RECYCLER.E[employer]RONIC [employer]ARF[employer] TECHN[employer] [address] [place] [address] Phone: tel: fax: [place] [address] Referral ID Status Reason Start Date Expiration Date V isits Requested Visits Authorized [id number] Closed Auto-Generate d Referral 09/08/2024 10/08/2025 1 1 [facility] Advance Directives No Advanced Directives Records FoundDocuments on File Type Date Recorded 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 Advance Directive(s) 06/09/2020 11:42 AM Advance Directive(s) 10/08/2016 1:49 PM Documents on File Type Date Recorded 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 Advance Directive(s) 06/09/2020 11:42 AM Advance Directive(s) 10/08/2016 1:49 PM Advance Directive Response Recorded Date/ Time Living Will No June 01, 2021 5:51pm Power of Marine Photographer No June 01 5:51pm Advance Directive Response Recorded Date/ Time Name of Medical Power of Marine Photographer marilyn pate blayne November 18, 2021 5:19pm Living Will Yes November 18, 2021 5:19pm Power of Marine Photographer Yes November 5:19pm Documents on File Type Date Recorded 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 Advance Directive(s) 06/09/2020 11:42 AM Documents on File Type Date Recorded 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 Advance Directive(s) 06/09/2020 11:42 AM Advance Directive Response Recorded Date/ Time Living Will No May 23, 2022 4:48pm Power of Marine Photographer No May 23 4:48pm Advance Directive Response Recorded Date/ Time Living Will No February 20 11:22am Power of Marine Photographer No February 21, 2024 11:22am Living Will Yes February 20 1:07am Power of Marine Photographer Yes February 21, 2024 1:07am Name of Medical Power of Marine Photographer son--marilyn kasper erilla February 21, 2024 1:07am Living Will Yes March 16 10:04pm Power of Marine Photographer Yes March 16, 2024 10:04pm Name of Medical Power of Marine Photographer marilyn Pate --son March 16, 2024 10:04pm Living Will No March 20 9:57am Power of Marine Photographer No March 20, 2024 9:57am Living Will Yes March 27 11:41am Power of Marine Photographer Yes March 27, 2024 11:41am Name of Medical Power of Marine Photographer SON March 27, 2024 11:41am Advance Directive Response Recorded Date/ Time Living Will No February 20 11:22am Do you have a Healthcare Pow er of Marine Photographer? No February 21, 2024 11:22am Living Will Yes June 08, 2024 11:36am Do you have a Healthcare Pow er of Marine Photographer? Yes June 08, 2024 11:36am Name of Medical Power of Marine Photographer SON-MARILYN COON June 08, 2024 11:36am Living Will Yes February 20 1:07am Do you have a Healthcare Pow er of Marine Photographer? Yes February 21, 2024 1:07am Name of Medical Power of Marine Photographer son--marilyn kasper erleon February 21, 2024 1:07am Living Will Yes March 16 10:04pm Do you have a Healthcare Pow er of Marine Photographer? Yes March 16, 2024 10:04pm Name of Medical Power of Marine Photographer marilyn Pate --son March 16, 2024 10:04pm Living Will No March 20 9:57am Do you have a Healthcare Pow er of Marine Photographer? No March 20, 2024 9:57am Living Will Yes March 27 11:41am Do you have a Healthcare Pow er of Marine Photographer? Yes March 27, 2024 11:41am Name of Medical Power of Marine Photographer ALEXANDRA March 27, 2024 11:41am Advance Directive Response Recorded Date/ Time Living Will Yes June 08, 2024 11:36am Do you have a Healthcare Pow er of Marine Photographer? Yes June 08, 2024 11:36am Name of Medical Power of Marine Photographer TAMMY COON June 08, 2024 11:36am Living Will No March 20 9:57am Do you have a Healthcare Pow er of Marine Photographer? No March 20, 2024 9:57am Living Will Yes March 27 11:41am Do you have a Healthcare Pow er of Marine Photographer? Yes March 27, 2024 11:41am Name of Medical Power of Marine Photographer ALEXANDRA March 27, 2024 11:41am Advance Directive Response Recorded Date/ Time Living Will Yes June 08, 2024 11:36am Do you have a Healthcare Pow er of Marine Photographer? Yes June 08, 2024 11:36am Name of Medical Power of Marine Photographer TAMMY COON June 08, 2024 11:36am Advance Directive Response Recorded Date/ Time Do you have a Healthcare Power of Marine Photographer? Yes December 07, 2024 4:39pm Name of Medical Power of Marine Photographer marilyn cisneros December 07, 2024 4:39pm Advance Directive Response Recorded Date/ Time Do you have a Healthcare Power of Marine Photographer? Yes December 07, 2024 10:20pm Name of Medical Power of Marine Photographer marilyn cisneros December 07, 2024 4:39pm Chief Complaint and Reason for Visit Chief [...] 2:26 pm Osteoarthritis of right shoulder Septemb er 2024 2:28pm Right rotator cuff tendinitis November 09, 2024 2:28pm Chief Complaint Admit Date 2 M FU September 23, 2024 2:26 pm NECK PAIN. RX HERE October 12, 2024 3: 00pm RIGHT SHOULDER November 09, 2024 2:28pm Room 1 November 09, 2024 2:52pm HYPONATREMIA, HYPOKALEMIA, ADR TO HCTZ + ACUTE ON December 07, 2024 9:50pm Reason for Visit Admit Date Constipation September 23, 2024 2:26 pm Degenerative disc disease, cervical Sept ember 2024 2:28pm Osteoarthritis of right shoulder Septemb er 2024 2:28pm Right rotator cuff tendinitis November 09, 2024 2:28pm Acute constipation December 07, 2024 9: 50pm Acute hyponatremia December 07, 2024 9: 50pm Adverse drug reaction December 07, 2024 9:50pm Constipation December 07, 2024 9: 50pm Generalized weakness December 07, 2024 9 :50pm History of chronic constipation December 07, 2024 9:50pm History of partial nephrectomy December 072024 9:50pm 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 RX HERE October 12, 2024 3: 00pm RIGHT SHOULDER November 09, 2024 2:28pm Room 1 November 09, 2024 2:52pm HYPONATREMIA, HYPOKALEMIA, weakness Deco koffi 2024 9:50pm HYPONATREMIA, HYPOKALEMIA, ADR TO HCTZ + ACUTE ON December 08, 2024 7:20am HYPONATREMIA, HYPOKALEMIA, weakness Deco 2024 2:39pm Reason for Visit Admit Date Constipation September 23, 2024 2:26 pm Degenerative disc disease, cervical Sept ember 2024 2:28pm Osteoarthritis of right shoulder Septemb er 2024 2:28pm Right rotator cuff tendinitis November 09, 2024 2:28pm Acute constipation December 07, 2024 9: 50pm Acute hyponatremia December 07, 2024 9: 50pm Adverse drug reaction December 07, 2024 9:50pm Colonic stricture December 07, 2024 9: 50pm Constipation December 07, 2024 9: 50pm Generalized weakness December 07, 2024 9 :50pm History of chronic constipation December 07, 2024 9:50pm History of partial nephrectomy December 072024 9:50pm 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 December 07, 2024 9:50pm Hypokalemia December 07, 2024 9: 50pm Benign essential hypertension December 9:50pm Primary hyperparathyroidism December 07, 2024 9:50pm Family History No Family History Records Found [...] Diagnoses Hypercalcemia Procedures CONSULT TO ENDOCRINOLOGY OFFICE/OUTPATIENT NEW HIGH MDM 60-74 MINUTES Older, BRANDAN Govea [address] [place] [address] Referral ID Status Reason Start Date Expiration Date Visits Requested Visits Authorized [id number] Authorized PCP Requested Referral 05/15/2022 05/15/2023 1 1 Specialty Diagnoses / Procedures Referred By Contac t Referred To Contact Gastroenterology Diagnoses Gastrointestinal hemorrhage, unspecified gastrointestinal hemorrhage type Procedures CONSULT TO GASTROENTEROLOGY Femi Baeza MD [address] [place] [address] Referral ID Status Reason Start Date Expiration Date Visits Requested Visits Authorized [id number] Authorized PCP Requested Referral 4 03/02/2025 1 1 Summary Purpose Additional Source Comments Source Comments (unrecognize d section and content) In the event this informatio n is protected by the Federal Confidentiality of Alcohol and Drug Abuse Patient Records regulations: The Federal rules restrict any use of the information to criminally investigate or prosecute any alcohol or drug abuse patient.[facility] the event this information is protected by the Federal Confidentiality of Alcohol and Drug Abuse Patient Records regulations: The Federal rules restrict any use of the information to criminally investigate or prosecute any alcohol or drug abuse patient.[facility] CenterIn the event this information is protected by the Federal Confidentiality of Alcohol and Drug Abuse Patient Records regulations: The Federal rules restrict any use of the information to criminally investigate or prosecute any alcohol or drug abuse patient.[facility] CenterIn the event this information is protected by the Federal Confidentiality of Alcohol and Drug Abuse Patient Records regulations: The Federal rules restrict any use of the information to criminally investigate or prosecute any alcohol or drug abuse patient.[facility] CenterIn the event this information is protected by the Federal Confidentiality of Alcohol and Drug Abuse Patient Records regulations: The Federal rules restrict any use of the information to criminally investigate or prosecute any alcohol or drug abuse patient.[facility] CenterIn the event this information is protected by the Federal Confidentiality of Alcohol and Drug Abuse Patient Records regulations: The Federal rules restrict any use of the information to criminally investigate or prosecute any alcohol or drug abuse patient.[facility] CenterIn the event this information is protected by the Federal Confidentiality of Alcohol and Drug Abuse Patient Records regulations: The Federal rules restrict any use of the information to criminally investigate or prosecute any alcohol or drug abuse patient.[facility] CenterIn the event this information is protected by the Federal Confidentiality of Alcohol and Drug Abuse Patient Records regulations: The Federal rules restrict any use of the information to criminally investigate or prosecute any alcohol or drug abuse patient.[facility] CenterIn the event this information is protected by the Federal Confidentiality of Alcohol and Drug Abuse Patient Records regulations: The Federal rules restrict any use of the information to criminally investigate or prosecute any alcohol or drug abuse patient.[facility] CenterIn the event this information is protected by the Federal Confidentiality of Alcohol and Drug Abuse Patient Records regulations: The Federal rules restrict any use of the information to criminally investigate or prosecute any alcohol or drug abuse patient.[facility] CenterIn the event this information is protected by the Federal Confidentiality of Alcohol and Drug Abuse Patient Records regulations: The Federal rules restrict any use of the information to criminally investigate or prosecute any alcohol or drug abuse patient.[facility] CenterIn the event this information is protected by the Federal Confidentiality of Alcohol and Drug Abuse Patient Records regulations: The Federal rules restrict any use of the information to criminally investigate or prosecute any alcohol or drug abuse patient.[facility] CenterIn the event this information is protected by the Federal Confidentiality of Alcohol and Drug Abuse Patient Records regulations: The Federal rules restrict any use of the information to criminally investigate or prosecute any alcohol or drug abuse patient.[facility] CenterIn the event this information is protected by the Federal Confidentiality of Alcohol and Drug Abuse Patient Records regulations: The Federal rules restrict any use of the information to criminally investigate or prosecute any alcohol or drug abuse patient.[facility] CenterIn the event this information is protected by the Federal Confidentiality of Alcohol and Drug Abuse Patient Records regulations: The Federal rules restrict any use of the information to criminally investigate or prosecute any alcohol or drug abuse patient.[facility] CenterIn the event this information is protected by the Federal Confidentiality of Alcohol and Drug Abuse Patient Records regulations: The Federal rules restrict any use of the information to criminally investigate or prosecute any alcohol or drug abuse patient.[facility] CenterIn the event this information is protected by the Federal Confidentiality of Alcohol and Drug Abuse Patient Records regulations: The Federal rules restrict any use of the information to criminally investigate or prosecute any alcohol or drug abuse patient.[facility] CenterIn the event this information is protected by the Federal Confidentiality of Alcohol and Drug Abuse Patient Records regulations: The Federal rules restrict any use of the information to criminally investigate or prosecute any alcohol or drug abuse patient.[facility] CenterIn the event this information is protected by the Federal Confidentiality of Alcohol and Drug Abuse Patient Records regulations: The Federal rules restrict any use of the information to criminally investigate or prosecute any alcohol or drug abuse patient.[facility] CenterIn the event this information is protected by the Federal Confidentiality of Alcohol and Drug Abuse Patient Records regulations: The Federal rules restrict any use of the information to criminally investigate or prosecute any alcohol or drug abuse patient.[facility] CenterIn the event this information is protected by the Federal Confidentiality of Alcohol and Drug Abuse Patient Records regulations: The Federal rules restrict any use of the information to criminally investigate or prosecute any alcohol or drug abuse patient.[facility] CenterIn the event this information is protected by the Federal Confidentiality of Alcohol and Drug Abuse Patient Records regulations: The Federal rules restrict any use of the information to criminally investigate or prosecute any alcohol or drug abuse patient.[facility] CenterIn the event this information is protected by the Federal Confidentiality of Alcohol and Drug Abuse Patient Records regulations: The Federal rules restrict any use of the information to criminally investigate or prosecute any alcohol or drug abuse patient.[facility] CenterIn the event this information is protected by the Federal Confidentiality of Alcohol and Drug Abuse Patient Records regulations: The Federal rules restrict any use of the information to criminally investigate or prosecute any alcohol or drug abuse patient.[facility] CenterIn the event this information is protected by the Federal Confidentiality of Alcohol and Drug Abuse Patient Records regulations: The Federal rules restrict any use of the information to criminally investigate or prosecute any alcohol or drug abuse patient.[facility] CenterIn the event this information is protected by the Federal Confidentiality of Alcohol and Drug Abuse Patient Records regulations: The Federal rules restrict any use of the information to criminally investigate or prosecute any alcohol or drug abuse patient.[facility] CenterIn the event this information is protected by the Federal Confidentiality of Alcohol and Drug Abuse Patient Records regulations: The Federal rules restrict any use of the information to criminally investigate or prosecute any alcohol or drug abuse patient.[facility] CenterIn the event this information is protected by the Federal Confidentiality of Alcohol and Drug Abuse Patient Records regulations: The Federal rules restrict any use of the information to criminally investigate or prosecute any alcohol or drug abuse patient.[facility] CenterIn the event this information is protected by [...] or prosecute any alcohol or drug abuse patient.[facility] CenterIn the event this information is protected by the Federal Confidentiality of Alcohol and Drug Abuse Patient Records regulations: The Federal rules restrict any use of the information to criminally investigate or prosecute any alcohol or drug abuse patient.[facility] CenterIn the event this information is protected by the Federal Confidentiality of Alcohol and Drug Abuse Patient Records regulations: The Federal rules restrict any use of the information to criminally investigate or prosecute any alcohol or drug abuse patient.[facility] CenterIn the event this information is protected by the Federal Confidentiality of Alcohol and Drug Abuse Patient Records regulations: The Federal rules restrict any use of the information to criminally investigate or prosecute any alcohol or drug abuse patient.[facility] CenterIn the event this information is protected by the Federal Confidentiality of Alcohol and Drug Abuse Patient Records regulations: The Federal rules restrict any use of the information to criminally investigate or prosecute any alcohol or drug abuse patient.[facility] CenterIn the event this information is protected by the Federal Confidentiality of Alcohol and Drug Abuse Patient Records regulations: The Federal rules restrict any use of the information to criminally investigate or prosecute any alcohol or drug abuse patient.[facility] CenterIn the event this information is protected by the Federal Confidentiality of Alcohol and Drug Abuse Patient Records regulations: The Federal rules restrict any use of the information to criminally investigate or prosecute any alcohol or drug abuse patient.[facility] CenterIn the event this information is protected by the Federal Confidentiality of Alcohol and Drug Abuse Patient Records regulations: The Federal rules restrict any use of the information to criminally investigate or prosecute any alcohol or drug abuse patient.[facility] CenterIn the event this information is protected by the Federal Confidentiality of Alcohol and Drug Abuse Patient Records regulations: The Federal rules restrict any use of the information to criminally investigate or prosecute any alcohol or drug abuse patient.[facility] CenterIn the event this information is protected by the Federal Confidentiality of Alcohol and Drug Abuse Patient Records regulations: The Federal rules restrict any use of the information to criminally investigate or prosecute any alcohol or drug abuse patient.[facility] CenterIn the event this information is protected by the Federal Confidentiality of Alcohol and Drug Abuse Patient Records regulations: The Federal rules restrict any use of the information to criminally investigate or prosecute any alcohol or drug abuse patient.[facility] CenterIn the event this information is protected by the Federal Confidentiality of Alcohol and Drug Abuse Patient Records regulations: The Federal rules restrict any use of the information to criminally investigate or prosecute any alcohol or drug abuse patient.[facility] CenterIn the event this information is protected by the Federal Confidentiality of Alcohol and Drug Abuse Patient Records regulations: The Federal rules restrict any use of the information to criminally investigate or prosecute any alcohol or drug abuse patient.[facility] CenterIn the event this information is protected by the Federal Confidentiality of Alcohol and Drug Abuse Patient Records regulations: The Federal rules restrict any use of the information to criminally investigate or prosecute any alcohol or drug abuse patient.[facility] CenterIn the event this information is protected by the Federal Confidentiality of Alcohol and Drug Abuse Patient Records regulations: The Federal rules restrict any use of the information to criminally investigate or prosecute any alcohol or drug abuse patient.[facility] CenterIn the event this information is protected by the Federal Confidentiality of Alcohol and Drug Abuse Patient Records regulations: The Federal rules restrict any use of the information to criminally investigate or prosecute any alcohol or drug abuse patient.[facility] CenterIn the event this information is protected by the Federal Confidentiality of Alcohol and Drug Abuse Patient Records regulations: The Federal rules restrict any use of the information to criminally investigate or prosecute any alcohol or drug abuse patient.[facility] CenterIn the event this information is protected by the Federal Confidentiality of Alcohol and Drug Abuse Patient Records regulations: The Federal rules restrict any use of the information to criminally investigate or prosecute any alcohol or drug abuse patient.[facility] CenterIn the event this information is protected by the Federal Confidentiality of Alcohol and Drug Abuse Patient Records regulations: The Federal rules restrict any use of the information to criminally investigate or prosecute any alcohol or drug abuse patient.[facility] CenterIn the event this information is protected by the Federal Confidentiality of Alcohol and Drug Abuse Patient Records regulations: The Federal rules restrict any use of the information to criminally investigate or prosecute any alcohol or drug abuse patient.[facility] CenterIn the event this information is protected by the Federal Confidentiality of Alcohol and Drug Abuse Patient Records regulations: The Federal rules restrict any use of the information to criminally investigate or prosecute any alcohol or drug abuse patient.[facility] CenterIn the event this information is protected by the Federal Confidentiality of Alcohol and Drug Abuse Patient Records regulations: The Federal rules restrict any use of the information to criminally investigate or prosecute any alcohol or drug abuse patient.[facility] CenterIn the event this information is protected by the Federal Confidentiality of Alcohol and Drug Abuse Patient Records regulations: The Federal rules restrict any use of the information to criminally investigate or prosecute any alcohol or drug abuse patient.[facility] CenterIn the event this information is protected by the Federal Confidentiality of Alcohol and Drug Abuse Patient Records regulations: The Federal rules restrict any use of the information to criminally investigate or prosecute any alcohol or drug abuse patient.[facility] CenterIn the event this information is protected by the Federal Confidentiality of Alcohol and Drug Abuse Patient Records regulations: The Federal rules restrict any use of the information to criminally investigate or prosecute any alcohol or drug abuse patient.[facility] CenterIn the event this information is protected by the Federal Confidentiality of Alcohol and Drug Abuse Patient Records regulations: The Federal rules restrict any use of the information to criminally investigate or prosecute any alcohol or drug abuse patient.[facility] CenterIn the event this information is protected by the Federal Confidentiality of Alcohol and Drug Abuse Patient Records regulations: The Federal rules restrict any use of the information to criminally investigate or prosecute any alcohol or drug abuse patient.[facility] CenterIn the event this information is protected by the Federal Confidentiality of Alcohol and Drug Abuse Patient Records regulations: The Federal rules restrict any use of the information to criminally investigate or prosecute any alcohol or drug abuse patient.[facility] CenterIn the event this information is protected by the Federal Confidentiality of Alcohol and Drug Abuse Patient Records regulations: The Federal rules restrict any use of the information to criminally investigate or prosecute any alcohol or drug abuse patient.[facility] CenterIn the event this information is protected by the Federal Confidentiality of Alcohol and Drug Abuse Patient Records regulations: The Federal rules restrict any use of the information to criminally investigate or prosecute any alcohol or drug abuse patient.[facility] Reason for Visit (unrecogniz ed section and content) Reason Comments ED Follow-up Reason Comments Fax [place]/Bladder US Reason Comments Results from [facility] CT Reason Onset Date Comments Refill Request [...] Reason Comments shave biopsy Reason Comments UTI Weeks c/p abdomina l cramping, burning with urination [...] Care Teams (unrecognized sec tion and content) [employer] Capture Power Plant Operator Relationship Specialty Start Date End Date Femi Baeza MD [address] [place], [place] [id number] PCP - General 12/23/01 Carbon Capture Power Plant Operator Relationship Specialty Start Date End Date Femi Baeza MD [address] [place] [address] [id number] PCP - General 12/23/01 Carbon Capture Power Plant Operator Relationship Specialty Start Date End Date Femi Baeza MD [address] [place] [address] [id number] PCP - General 12/23/01 Carbon Capture Power Plant Operator Relationship Specialty Start Date End Date Femi Baeza MD [address] [place] [address] PCP - General 12/23/01 Carbon Capture Power Plant Operator Relationship Specialty Start Date End Date Femi Baeza MD [address] [place] [address] PCP - General 12/23/01 Carbon Capture Power Plant Operator Relationship Specialty Start Date End Date Femi Baeza MD [address] [place] [address] PCP - General 12/23/01 Carbon Capture Power Plant Operator Relationship Specialty Start Date End Date Femi Baeza MD [address] [place] [address] PCP - General 12/23/01 Carbon Capture Power Plant Operator Relationship Specialty Start Date End Date Femi Baeza MD [address] [place] [address] PCP - General 12/23/01 [employer] Capt[employer] Power Plant Operator Relationship Specialty Start Date End Date Femi Baeza MD [address] [place] [address] PCP - General 12/23/01 [employer] Capture Power Plant Operator Relationship Specialty Start Date End Date Femi Baeza MD [address] [place] [address] PCP - General 12/23/01 [employer] Capture Power Plant Operator Relationship Specialty Start Date End Date Femi Baeza MD [address] [place] [address] PCP - General 12/23/01 Team Status: Active Member Role Status Dates Dr. Femi Baeza MD Family Provider Active Dr. Femi Baeza MD Primary Care Provider Active Team Status: Inactive Member Role Status Dates Dr. Femi Baeza MD Primary Care Provider Active Dr. Calvin Andrews MD Emergency Provider Active [employer] Power Plant Operator Relationship Specialty Start Date End Date Femi Baeza MD [address] [place] [address] PCP - General 12/23/01 Carbon Capture Power Plant Operator Relationship Specialty Start Date End Date Femi Baeza MD [address] [place] [address] PCP - General 12/23/01 [employer] Capture Power Plant Operator Relationship Specialty Start Date End Date Femi Baeza MD [address] [place] [address] PCP - General 12/23/01 [employer] Capture Power Plant Operator Relationship Specialty Start Date End Date Femi Baeza MD [address] [place] [address] PCP - General 12/23/01 [employer] Capture Power Plant Operator Relationship Specialty Start Date End Date Femi Baeza MD [address] [place] [address] PCP - General 12/23/01 [employer] Capture Power Plant Operator Relationship Specialty Start Date End Date Femi Baeza MD [address] [place] [address] PCP - General 12/23/01 Team Status: Inactive Member Role Status Dates Dr. Femi Baeza MD Primary Care Provider, Refer ring Provider Active Dr. César Johnson MD Attending Provider Active Team Status: Inactive Member Role Status Dates Dr. Femi Baeza MD Primary Care Provider Active Dr. César Johnson MD Attending Provider, Referring Provi jeevan Active [employer] Capt[employer] Power Plant Operator Relationship Specialty Start Date End Date Femi Baeza MD [address] [place] [address] PCP - General 12/23/01 Carbon Capture Power Plant Operator Relationship Specialty Start Date End Date Femi Baeza MD [address] [place] [address] PCP - General 12/23/01 [employer] Capture Power Plant Operator Relationship Specialty Start Date End Date Femi Baeza MD [address] [place] [address] PCP - General 12/23/01 Team Status: Inactive Member Role Status Dates Dr. Femi aBeza MD Primary Care Provider Active Dr. Peewee Negro MD Attending Provider, Referr ing Provider Active [employer] Power Plant Operator Relationship Specialty Start Date End Date Femi Baeza MD [address] [place] [address] PCP - General 12/23/01 [employer] Capture Power Plant Operator Relationship Specialty Start Date End Date Femi Baeza MD [address] [place] [address] PCP - General 12/23/01 [employer] Capture Power Plant Operator Relationship Specialty Start Date End Date Femi Baeza MD [address] [place] [address] PCP - General 12/23/01 Carbon Capture Power Plant Operator Relationship Specialty Start Date End Date Femi Baeza MD [address] [place] [address] PCP - General 12/23/01 Carbon Capture Power Plant Operator Relationship Specialty Start Date End Date Femi Baeza MD [address] [place] [address] PCP - General 12/23/01 [employer] Capture Power Plant Operator Relationship Specialty Start Date End Date Femi Baeza MD [address] [place] [address] PCP - General 12/23/01 [employer] Capture Power Plant Operator Relationship Specialty Start Date End Date Femi Baeza MD [address] [place] [address] PCP - General 12/23/01 Carbon Capture Power Plant Operator Relationship Specialty Start Date End Date Femi Baeza MD [address] [place] [address] PCP - General 12/23/01 Carbon Capture Power Plant Operator Relationship Specialty Start Date End Date Femi Baeza MD [address] [place] [address] PCP - General 12/23/01 Xuan Brandon, WASTE RECYCLER.ELECTRONIC WARFARE TECHNICAL [address] [place] [address] Interactive Producer Internal Medicine 02/10/24 Carbon Capture Power Plant Operator Relationship Specialty Start Date End Date Femi Baeza MD [address] [place] [address] PCP - General 12/23/01 Xuan Brandon, WASTE RECYCLER.ELECTRONIC WARFARE TECHNICAL [address] [place] [address] Interactive Producer Internal Medicine 02/10/24 Carbon Capture Power Plant Operator Relationship Specialty Start Date End Date Femi Baeza MD [address] [place] [address] PCP - General 12/23/01 Xuan Brandon, WASTE RECYCLER.ELECTRONIC WARFARE TECHNICAL [address] [place] [address] [facility] Internal Medicine 02/10/24 Team Status: Active Member Role Status Dates Dr. Femi Baeza MD Primary Care Provider Active Team Status: Inactive Member Role Status Dates Dr. Femi Baeza MD Primary Care Provider Active Start: January 22, 2024 End: January 22, 2024 Dr. Femi Baeza MD Referring Provider Active Start: January 22, 2024 End: January 22, 2024 Tyrese Baker PA, PA Attending Provider Active Start: January 22, [...] March 25, 2024 End: March 25, 2024 ALBINA Leach Attending Provider Active Start: March 25, [...] Provider Active St art: June 12, 2024 Carbon Capture Power Plant Operator Relationship Specialty Start Date End Date Femi Baeza MD [address] [place], [place] [address] PCP - General 12/23/01 Xuan Brandon, WASTE RECYCLER.ELECTRONIC WARFARE TECHNICAL [address] [place], [place] [address] [facility] Internal Medicine 02/10/24 Carbon Capture Power Plant Operator Relationship Specialty Start Date End Date Femi Baeza MD [address] [place], [place] [address] PCP - General 12/23/01 Xuan Brandon, WASTE RECYCLER.ELECTRONIC WARFARE TECHNICAL [address] [place], [place] [address] [facility] Internal Medicine 02/10/24 Carbon Capture Power Plant Operator Relationship Specialty Start Date End Date Femi Baeza MD [address] [facility] [place] [id number] PCP - General 12/23/01 Xuan Brandon, WASTE RECYCLER.ELECTRONIC WARFARE TECHNICAL [address] [facility] [place] [id number] [facility] Internal Medicine 02/10/24 Team Status: Inactive Member [...] July 15, 2024 End: July 15, 2024 Carbon Capture Power Plant Operator Relationship Specialty Start Date End Date Femi Baeza MD [address] [facility] [place] [address] PCP - General 12/23/01 Xuan Brandon, WASTE RECYCLER.ELECTRONIC WARFARE TECHNICAL [address] [facility] [place] [id number] [facility] Internal Medicine 02/10/24 Carbon Capture Power Plant Operator Relationship Specialty Start Date End Date Femi Baeza MD [address] [facility] [place] [address] PCP - General 12/23/01 Xuan Brandon, WASTE RECYCLER.ELECTRONIC WARFARE TECHNICAL [address] [place] [address] Interactive Producer Internal Medicine 02/10/24 Carbon Capture Power Plant Operator Relationship Specialty Start Date End Date Femi Baeza MD [address] [facility] [place] [address] PCP - General 12/23/01 Xuan Brandon, WASTE RECYCLER.ELECTRONIC WARFARE TECHNICAL [address] [place] [address] Interactive Producer Internal Medicine 02/10/24 Carbon Capture Power Plant Operator Relationship Specialty Start Date End Date Femi Baeza MD [address] [place] [address] PCP - General 12/23/01 Xuan Brandon, WASTE RECYCLER.ELECTRONIC WARFARE TECHNICAL [address] [place] [address] [facility] Internal Medicine 02/10/24 Carbon Capture Power Plant Operator Relationship Specialty Start Date End Date Femi Baeza MD [address] [place] [address] PCP - General 12/23/01 Xuan Brandon, WASTE RECYCLER.ELECTRONIC WARFARE TECHNICAL [address] [place] [address] [facility] Internal Medicine 02/10/24 Carbon Capture Power Plant Operator Relationship Specialty Start Date End Date Femi Baeza MD [address] [place] [address] PCP - General 12/23/01 Xuan Brandon, KWASI.ELECTRONIC WARFARE TECHNICAL [address] [place] [address] Interactive Producer Internal Medicine 02/10/24 Team Status: Active Member [...] Provider Active Start: September 21, 2024 Xuan Abi TRAVEL TICKETING REVIEWER, TRAVEL TICKETING REVIEWER-C Attending Provider Active Start: September 21, 2024 [...] June 24, 2024 End: June 24, 2024 Nola Alfaro NP-C Attending Provider Active Start: June 24, 2024 [...] 2024 End: October 12, 2024 Xuan Brandon NP, TRAVEL TICKETING REVIEWER-C Attending Provider Active Start: October 12, 2024 End: October 12, 2024 Carbon Capture Power Plant Operator Relationship Specialty Start Date End Date Femi Baeza MD [address] [place] [address] PCP - General 12/23/01 Xuan Brandon, WASTE RECYCLER.ELECTRONIC WARFARE TECHNICAL [address] [place] [address] [facility] Internal Medicine 02/10/24 Carbon Capture Power Plant Operator Relationship Specialty Start Date End Date Femi Baeza MD [address] [place], [place] [address] PCP - General 12/23/01 Xuan Brandon, WASTE RECYCLER.ELECTRONIC WARFARE TECHNICAL [address] [place], [place] [address] [facility] Internal Medicine 02/10/24 Team Status: Inactive Member [...] 23, 2024 End: September 23, 2024 ALBINA Leahc Attending Provider Active Start: September 23, 2024 End: September 23, 2024 Team Status: Inactive Member Role/Relationship Status Dates Dr. Femi Baeza MD Primary Care Provider Active Start: October 12, 2024 End: October 12, 2024 Xuan Brandon NP, TRAVEL TICKETING REVIEWER-C Attending Provider Active Start: October 12, 2024 [...] 2024 End: November 09, 2024 Team Status: Active Member Role/Relationship Status Dates Dr. Femi Baeza MD Primary care physician Activ e Team Status: Inactive Member Role/Relationship Status Dates Dr. Femi Baeza MD Primary care physician Activ e Start: September 23, 2024 End: September 23, 2024 Dr. Femi Baeza MD Referring Provider Active Start: September 23, 2024 End: September 23, 2024 ALBNIA Leach Attending physician Active Start: September 23, 2024 End: September 23, 2024 Team Status: Inactive Member Role/Relationship Status Dates Dr. Femi Baeza MD Primary care physician Activ e Start: October 12, 2024 End: October 12, 2024 Xuan Brandon NP, TRAVEL TICKETING REVIEWER-C Attending physician Active Start: October 12, 2024 End: October 12, 2024 Team Status: Inactive Member Role/Relationship Status Dates Dr. Femi Baeza MD Primary care physician Activ e Start: November 09, 2024 End: November 09, 2024 Dr. Femi Baeza MD Referring Provider Active Start: November 09, 2024 End: November 09, 2024 Dr. Con Luciano DO Attending physician Active Start: November 09, 2024 End: November 09, 2024 Team Status: Inactive Member Role/Relationship Status Dates Dr. Femi Baeza MD Primary care physician Activ e Start: November 09, 2024 End: November 09, 2024 Dr. Derek Rae MD Attending physician Active Start: November 09, 2024 End: November 09, 2024 Team Status: Active Member Role/Relationship Status Dates Dr. Femi Baeza MD Primary care physician Activ e Start: December 07, 2024 Dr. Juan Shaffer , DO Emergency Departme nt Physician Active Start: December 07, 2024 Dr. Ranjeet Aldana , DO Admitting physician Active Start: December 07, 2024 Dr. Ranjeet Aldana , DO Attending physician Active Start: December 07, 2024 Team Status: Inactive Member Role/Relationship Status Dates Dr. Femi Baeza MD Primary care physician Activ e Start: December 07, 2024 End: December 09, 2024 Dr. Juan Shaffer , DO Emergency Departme nt Physician Active Start: December 07, 2024 End: December 09, 2024 Dr. Ranjeet Aldana , DO Admitting physician Active Start: December 07, 2024 End: December 09, 2024 Dr. Ranjeet Aldana , DO Nurse Practitioner Active Start: December 07, 2024 End: December 09, 2024 Dr. Kelle Davila MD Attending physician Active Start: December 07, 2024 End: December 09, 2024 Dr. Peewee Negro MD Nurse Practitioner Active Start: December 07, 2024 End: December 09, 2024 Team Status: Active Member Role/Relationship Status Dates Dr. Femi Baeza MD Primary care physician Activ e Start: December 08, 2024 Dr. Juan Shaffer , DO Emergency Departme nt Physician Active Start: December 08, 2024 Dr. Ranjeet Aldana , DO Admitting physician Active Start: December 08, 2024 Dr. Ranjeet Aldana , DO Nurse Practitioner Active Start: December 08, 2024 Dr. Kelle Davila MD Attending physician Active Start: December 08, 2024 Dr. Kelle Davila MD Nurse Practitioner Active Start: December 08, 2024 Dr. Peewee Negro MD Nurse Practitioner Active Start: December 08, 2024 Team Status: Active Member Role/Relationship Status Dates Dr. Femi Baeza MD Primary care physician Activ e Start: December 09, 2024 Dr. Juan Shaffer , DO Emergency Departme nt Physician Active Start: December 09, 2024 Dr. Ranjeet Aldana , DO Admitting physician Active Start: December 09, 2024 Dr. Ranjeet Aldana , DO Nurse Practitioner Active Start: December 09, 2024 Dr. Kelle Davila MD Attending physician Active Start: December 09, 2024 Dr. Kelle Davila MD Nurse Practitioner Active Start: December 09, 2024 Dr. Peewee Negro MD Nurse Practitioner Active Start: December 09, 2024 Goals (unrecognized section and content) Type Treatment Intervention Code Status: Full Code - Verified INFORMATION SOURCE (unrecogn ized section and content) DATE CREATED AUTHOR 10/30/2024 [facility] DATE CREATED AUTHOR AUTHOR'S ORGANIZ ATION 12/16/2024 [facility] FOR RECORDS PERTAINING TO PATIENTS WHO ARE [...] BE BASED ON THE PRIMARY CLINICAL RECORDS. [employer] provides no warranty or guarantee of the accuracy or completeness of information in this document.
--- NOTE | 2024-12-18 19:16 | ED.VIS.GI ---
HPI HPI - GI History of Present Illness Chief Complaint: Weakness Informant: patient Abdominal Pain/Flank Pain Onset: Days Context: Gradual Onset Timing: Intermittent Quality: Cramping Location: Diffuse Current Severity: Mild Maximum Severity: Mild Worsened by: Nothing Relieved by: Nothing Nausea/Vomiting/Emesis GI Symptom: Positive for Nausea Severity: Mild Diarrhea/Melena/Hematochezia GI Symptom: Positive for - (Constipation); Negative for Diarrhea, Melena or Hematochezia Onset: Days Severity: Mild Associated Symptoms Associated Symptoms: Positive for Dysuria; Negative for Frequency, Hematuria or Urgency Narrative Narrative: 79-year-old female history of renal cancer with partial nephrectomy chronic constipation and hypoglycemia. States she was hospitalized around 1 to 2 weeks ago. States that she has generally been weak. Having dysuria. Constipation abdominal discomfort. Nausea with dry heaves. Denies any fever. Prior similar symptoms: Yes Recent Illness/Hospitalization: Yes [facility] Medical History History of primary transitional cell carcinoma of left kidney Colonic stricture Wears glasses Cancer Anxiety Ambulates with cane History of renal disease Bladder disease History of hiatal hernia Gastric reflux Former smoker Gait disturbance Diverticular disease Primary hyperparathyroidism Sciatica Age related osteoporosis Bowel obstruction Scoliosis Lumbar radiculopathy Hx of renal cell carcinoma Osteoporosis GERD (gastroesophageal reflux disease) Hypoglycemia HTN (hypertension) Bladder prolapse Home Medications ?Medication ?Instructions ?Recorded ?Last Taken ?Type cholecalciferol (vitamin D3) 25 2,000 unit PO DAILY SUPPLEMENT 12/26/15 12/06/24 History mcg (1,000 unit) tablet (Vitamin D3) oxybutynin chloride 5 mg tablet 5 mg PO BID BLADDER 12/26/15 12/07/24 History diltiazem HCl 180 mg capsule,24 360 mg PO DAILY htn 09/08/20 12/07/24 History hr,extended release lorazepam 0.5 mg tablet 0.5 mg PO DAILY ANXIETY 09/08/20 12/07/24 History acetaminophen 500 mg tablet 500 mg PO Q6H PRN pain 08/23/22 12/07/24 History (Tylenol Extra Strength) cetirizine 5 mg tablet 5 mg PO DAILY PRN allergy symptoms 08/23/22 Unknown History fluticasone propionate 50 1 spray intranasal DAILY PRN 08/23/22 Unknown History mcg/actuation nasal allergy symptoms spray,suspension omeprazole 40 mg capsule,delayed 40 mg PO DAILY GERD 08/23/22 12/06/24 History release denosumab 60 mg/mL subcutaneous 60 mg subcut [id number] OSTEOPOROSIS 10/03/22 Unknown Rx syringe (Prolia) #1 mL Lactobacillus rhamnosus GG 20 1 cell PO DAILY G[facility] HEALTH 12/16/23 12/06/24 History billion cell capsule (Probiotic Digestive Care) ondansetron 8 mg disintegrating 8 mg PO Q8H PRN nausea and 02/21/24 Unknown Rx tablet vomiting #15 tabs losartan 50 mg tablet 50 mg PO BID HTN 06/08/24 12/07/24 History linaclotide 145 mcg capsule 145 mcg PO QAM IBS #30 caps 11/09/24 12/07/24 Rx (Linzess) lactulose 10 gram/15 mL oral 10 g (15 mL) PO TID CONSTIPATION 11/13/24 12/07/24 Rx solution #1,200 mL dextrin 3 gram/4 gram oral powder 3 g PO DAILY constipation 12/07/24 Unknown History (Clear Fiber) fexofenadine 180 mg tablet 180 mg PO DAILY ALLERGY SYMPTOMS 12/07/24 12/06/24 History (Louisa Allergy) olopatadine 0.2 % eye drops 1 drp EACH EYE DAILY allergies 12/07/24 Unknown History (Pataday Once Daily Relief) sennosides 17.2 mg tablet (Senokot 17.2 mg PO DAILY constipation 12/07/24 Unknown History Extra Strength) sennosides 17.2 mg tablet (Senokot 34.4 mg PO QHS constipation 12/07/24 Unknown History Extra Strength) docusate sodium 100 mg capsule 100 mg PO TID constipation #90 caps 12/08/24 Unknown Rx Allergy/AdvReac Type Severity Reaction Status Date / Time lisinopril Allergy Swelling Verified 12/18/24 18:20 hydrochlorothiazide AdvReac Intermediate Hyponatremia Verified 12/18/24 18:20 and Hypokalemia esomeprazole (From Nexium) AdvReac Nausea/Vom/ Verified 12/18/24 18:20 Diarrhea Family History Father Alcoholism Brother Alcoholism Mother Arthritis Hypertension Osteoporosis Surgical History Hx of colonoscopy History of tubal ligation History of cholecystectomy History of knee replacement H/O partial nephrectomy Social History Smoking Status: Former smoker alcohol intake: never what type of physical activity do you participate in: bicycling ROS ROS ED ROS Narrative Nausea. Abdominal cramping. Constipation. Chills. Dysuria. Constitutional Constitutional ED: Reports chills; Denies fever(s) ENT ENT ED: Denies ear pain Cardiovascular Cardiovascular: Denies chest pain Respiratory/Chest Respiratory/Chest: Denies cough or dyspnea Gastrointestinal Gastrointestinal: Reports abdominal pain, constipation and nausea; Denies diarrhea, melena or vomiting Genitourinary Genitourinary ED: Reports dysuria; Denies hematuria Musculoskeletal Musculoskeletal: Denies arthralgias Integumentary Denies abscess Neurologic Neurologic: Denies headache(s) Psychiatric Psychiatric: Denies anxiety Endocrine Endocrinology: Denies polydipsia Hematologic/Lymphatic Hematologic/Lymphatic: Denies easy bleeding, easy bruising or lymphadenopathy Allergic/Immunologic Allergic/Immunologic ED: Denies mouth swelling, tongue swelling or urticaria EXAM Physical Exam Narrative Exam Narrative: 79-year-old female sitting upright in bed. Vital signs are stable afebrile. No acute distress. H EENT exam pupils round react light. Moist mutes membranes. Neck nontender JVD. No lymphadenopathy. Lungs clear to auscultation bilaterally. Heart regular rhythm no murmur rate about 70. Chest wall ribs nontender. Abdomen soft nondistended normal bowel sounds without peritoneal signs. Diffusely tender in all 4 quadrants. No obstruction. No pulsatile mass. Moving all 4 extremities. Nontender. No significant edema. Neurologically she is awake alert. Answering questions following commands. Back significant scoliosis. Const Vital Signs: 12/18/24 18:20 12/18/24 19:24 12/18/24 20:23 Temperature 98.4 F 97.7 F L Temperature Source Temporal Oral Pulse Rate 70 65 Respiratory Rate 16 14 Respiratory Pattern Normal Blood Pressure 164/78 H 149/77 H Blood Pressure Mean 106 101 Pulse Ox 100 100 Oxygen Delivery Method Room Air Room Air 12/18/24 22:00 12/18/24 23:00 Temperature 97.9 F 97.8 F Temperature Source Oral Oral Pulse Rate 67 79 Respiratory Rate 16 21 H Respiratory Pattern Blood Pressure 142/76 H 149/71 H Blood Pressure Mean 98 97 Pulse Ox 96 100 Oxygen Delivery Method Room Air Room Air MDM MDM MDM Narrative Medical decision making narrative: 71-year-old female complaining generalized weakness with dysuria and chills possible UTI abdominal discomfort most likely from constipation. CAT scan of the abdomen screening labs. Straight cath UA. IV fluids. Repeat exam patient is doing well. Abdomen is benign. We had a lengthy discussion of all of her test results and CAT scan. She will use magnesium citrate at home plus prune juice plus fiber crackers and MiraLAX for constipation. She deals with this quite frequently. She is aware of the right renal mass since her recurrence. She is comfortable being discharged to home. She understands I do not have any specific reason to admit her. She and her son are comfortable with her being discharged home with outpatient follow-up. History & Record Review Discussion w/independent historian: Patient Additional record(s) reviewed:: Prior inpatient record, Prior outpatient record, Prior ED visit and Prior labs Lab Data Attestation: I reviewed the patient's lab results. Lab results narrative: CBC shows a white count of 6. H&H of 13 and 39. Platelets 277. Electrolytes show sodium 131. Gap 15. Normal BUN and creatinine of 15 and 0.6. Glucose 103. Liver enzymes normal. Amylase and lipase normal. UA negative. Chest x-ray unremarkable. EKG unremarkable. Labs: Laboratory Results - last 24 hr 12/18/24 12/18/24 19:36 19:56 WBC 6.9 RBC 4.51 Hgb 13.5 Hct 39.0 MCV 86.5 MCH 29.9 MCHC 34.6 RDW Std Deviation 41.1 RDW Coeff of Sharron 13.1 Plt Count 277 MPV 9.3 Immature Gran % (Auto) 0.300 Neut % (Auto) 53.8 Lymph % (Auto) 15.5 L Moore % (Auto) 9.1 Eos % (Auto) 20.9 H Baso % (Auto) 0.4 Absolute Neuts (auto) 3.7 Absolute Lymphs (auto) 1.07 Nucleated RBC % 0 Differential Comment SCANNED Platelet Estimate ADEQUATE Sodium 131 L Potassium 4.1 Chloride 94 L Carbon Dioxide 21.9 Anion Gap 15 BUN 15 Creatinine 0.60 L Estim Creat Clear Calc 50.05 Est GFR (MDRD) Non-Af 92 BUN/Creatinine Ratio 24.8 H Glucose 103 H Calcium 10.5 Total Bilirubin 0.43 AST 19 ALT 13 Alkaline Phosphatase 49 Total Protein 7.0 Albumin 4.5 Globulin 2.5 Albumin/Globulin Ratio 1.8 Amylase 43 Lipase 15 Urine Color Straw Urine Clarity Clear Urine pH 7.0 Ur Specific Hathaway 1.005 Urine Protein Negative Urine Glucose (UA) Normal Urine Ketones 5 H Urine Occult Blood Negative Urine Nitrite Negative Urine Bilirubin Negative Urine Urobilinogen Normal Ur Leukocyte Esterase Negative Urine RBC 0-5 SEEN Urine WBC 0-5 SEEN Ur Squamous Epith Cells 0-5 SEEN Urine Bacteria 0 SEEN Urine Mucus 0 SEEN Radiography Chest X-Ray - ED: 2 View, Read by ED Physician, Read by Radiologist, Normal, Heart, Mediastinum, Bony Structures, No Acute Disease and Chronic Changes Diagnostic Testing: Clinical Impression(s) from Imaging Studies Abdomen/Pelvis CT 12/18/24 20:50 IMPRESSION: 1. Heterogenously enhancing right renal masses measuring 1.8 cm and 1.2 cm. Additional peripherally enhancing cystic lesion in the right kidney measures 2.0 cm. Findings are worrisome for a malignancy, further workup suggested. 2. Extensive colonic stool burden compatible with constipation. 3. Unchanged moderate hiatal hernia. 4. Cholecystectomy with stable dilatation of the common bile duct and intrahepatic bile ducts. Reading Location: [facility] Chest X-Ray 12/18/24 20:58 IMPRESSION: NO ACUTE FINDINGS. Reading Location: [facility] Chest x-ray, 2 views, AP and lateral, turbid by myself and radiology shows no acute abnormality. No cardiac silhouette. Normal lung esqueda. Chronic changes. No acute process. Rhythm Strip Rhythm Strip: Sinus Rhythm Rate: 63 Ectopy: None EKG Initial EKG: Attestation: I personally reviewed and interpreted this EKG as follows: Interpretation: Sinus Rhythm and No Acute Injury Pattern Comments: Normal sinus rhythm rate is 63 no acute signs of OH or ischemia. Discharge Plan Triage Chief Complaint: Weakness ED Provider: Librado Vasquez Dx/Rx/DC Orders Clinical Impression: Weakness, Constipation, Chronic hyponatremia, Renal cancer Instructions: ED Constipation (Adult) Prescriptions: No Action omeprazole 40 mg capsule,delayed release(DR/EC) 40 mg PO DAILY acetaminophen [Tylenol Extra Strength] 500 mg tablet 500 mg PO Q6H PRN (Reason: pain) cetirizine 5 mg tablet 5 mg PO DAILY PRN (Reason: allergy symptoms) fluticasone propionate 50 mcg/actuation spray,suspension 1 spray intranasal DAILY PRN (Reason: allergy symptoms) Rx Instructions: administer into each nostril Probiotic Digestive Care 20 billion cell capsule 1 cell PO DAILY oxybutynin chloride 5 MG tablet 5 mg PO BID cholecalciferol (vitamin D3) [Vitamin D3] 1,000 UNIT tablet 2,000 unit PO DAILY diltiazem HCl 180 mg capsule,extended release 24 hr 360 mg PO DAILY lorazepam 0.5 mg tablet 0.5 mg PO DAILY losartan 50 mg tablet 50 mg PO BID ondansetron 8 mg tablet,disintegrating 8 mg PO Q8H PRN (Reason: nausea and vomiting) Qty: 15 0RF fexofenadine [Louisa Allergy] 180 mg tablet 180 mg PO DAILY Clear Fiber 3 gram/4 gram powder 3 g PO DAILY Senokot Extra Strength 17.2 mg tablet 17.2 mg PO DAILY Senokot Extra Strength 17.2 mg tablet 34.4 mg PO QHS olopatadine [Pataday Once Daily Relief] 0.2 % drops 1 drp EACH EYE DAILY Prolia 60 mg/mL syringe 60 mg subcut [id number] Qty: 1 1RF Linzess 145 mcg capsule 145 mcg PO QAM Qty: 30 2RF lactulose 10 gram/15 mL solution 10 g PO TID Qty: 1200 1RF docusate sodium 100 mg capsule 100 mg PO TID Qty: 90 2RF Primary Care Provider: Femi Baeza Referrals: Femi Baeza MD [Primary Care Provider, Internal Medicine] - 3-5 Days Activity Restrictions/Additional Instructions: Plenty of fluids. Fiber crackers. Prune juice. MiraLAX and magnesium citrate for your constipation. Follow-up with your doctor next week to ensure you are improving. Return if you are feeling worse. Print Language: Divehi Disposition Disposition: Home, Self Care
--- NOTE | 2024-12-18 19:20 | EKG12_ITS ---
Test Reason : DYSRHYTHMIA Blood Pressure : */* mmHG Vent. Rate : 63 BPM Atrial Rate : 63 BPM P-R Int : 192 ms QRS Dur : 74 ms QT Int : 416 ms P-R-T Axes : 53 9 31 degrees QTcB Int : 425 ms Normal sinus rhythm Normal ECG Confirmed by ALCIRA SMITH, RICHARD ([id number]), digital editor TOMAS AYERS ([id number]) on 12/21/2024 6:56:52 AM Referred By: Confirmed By: RICHARD ELI MD
[2024-12-18] MEDS: 0.9% Normal Saline (1000mL) 1,000 ML 999 ML IV (19:40)
[2024-12-18 19:52] LABS: Hematocrit 39.0 % (37-47); Hemoglobin 13.5 g/dL (12.0-15.0); Immature Granulocytes Count 0.020 X10^3/uL (0.0-0.0); Mean Corp Hgb Conc 34.6 g/dL (32-36); Mean Corpuscular Volume 86.5 fL (81-99); Mean Platelet Vol. 9.3 fl (6.2-12.0); NRBC Flagged by Analyzer 0 % (0-5); POSITIVE MORPHOLOGY YES; Platelet Count 277 K/mm3 (150-450); RBC Distribution Width CV 13.1 % (11.6-14.6); RBC Distribution Width SD 41.1 fl (35.1-43.9); Red Blood Count 4.51 M/mm3 (4.2-5.4); White Blood Count 6.9 K/mm3 (4.4-11.0)
[2024-12-18 20:06] LABS: Differential Indicated SCAN CRITERIA MET
[2024-12-18 20:23] VITALS: BP 149/77; PULSE 65; RESP 14; TEMP 36.5; O2SAT 100; BMI 21.3
[2024-12-18 20:23] LABS: Amylase 43 U/L (28-100); Lipase 15 U/L (13-75)
[2024-12-18 20:28] LABS: AST(SGOT) 19 U/L (<=31); Alanine Aminotransfer ALT/SGPT 13 U/L (<=34); Albumin, Serum 4.5 g/dL (3.4-4.8); Alkaline Phosphatase 49 U/L (35-104); Anion Gap 15 (5-15); BUN 15 mg/dL (4-19); BUN/Creat Ratio 24.8 RATIO (10-20); Calcium,Total 10.5 mg/dL (7.6-11.0); Carbon Dioxide 21.9 mmol/L (21.0-32.0); Chloride 94 mmol/L (98-108); Estimated Creatinine Clearance 50.05 ml/min (50-250); Globulin 2.5 g/dL (2.2-4.2); Glucose 103 mg/dL (70-99); Potassium 4.1 mmol/L (3.3-5.1)
[2024-12-18 20:45] LABS: Mucous, Urine 0 SEEN /hpf (<or=2+)
--- NOTE | 2024-12-18 20:50 | CT_ITS ---
PROCEDURE: ABDOMEN/PELVIS W IV CONT ONLY 12/18/2024 REASON FOR EXAM: ABD PAIN AND CONSTIPATION TECHNIQUE: Procedure Code: [id number] Modality: CT Procedure: ABDOMEN/PELVIS W IV CONT ONLY Coronal and Sagittal reconstruction series were provided. CONTRAST: 100 cc of Isovue 370 One or more dose reduction techniques were used (e.g., Automated exposure control, adjustment of the mA and/or kV according to patient size, use of iterative reconstruction technique. COMPARISON: 12/07/2024, 04/30/2024 FINDINGS: Lung bases: Unremarkable. Liver: Normal size. No mass. Gallbladder: Surgically absent. Redemonstrated dilatation of the common bile duct and intrahepatic bile ducts, likely postsurgical. Spleen: Normal size. Pancreas: Diffuse fatty atrophy. Adrenals: Unremarkable. Kidneys: Redemonstrated 1.2 cm solid enhancing lesion at the lateral aspect of the lower right kidney. Complex peripherally enhancing cystic lesion measuring 2.0 x 1.4 cm in the right kidney upper pole also unchanged. Another complex heterogenous of the enhancing lesion in the right kidney upper pole measuring 1.5 x 1.8 x 1.8 cm is concerning for a neoplasm, not reported previously. No obstructing renal calculi or hydronephrosis. Bladder: Unremarkable. Reproductive Organs: Prior hysterectomy. Adnexal regions are unremarkable. Stomach/duodenum: Moderate hiatal hernia. Duodenum unremarkable. Bowel: Extensive colonic stool burden compatible with constipation. No bowel obstruction. Appendix: The appendix is not identified. There is no inflammatory process identified in the right lower quadrant to suggest appendicitis. Lymph nodes: No suspicious lymph node enlargement. Vasculature: Diffuse atherosclerotic calcifications. No aneurysm. Peritoneum / Retroperitoneum: No free fluid or air. Bones: Advanced degenerate changes of the visualized spine. No acute fractures. CT/Abdomen/Pelvis W IV Cont ONLY IMPRESSION: 1. Heterogenously enhancing right renal masses measuring 1.8 cm and 1.2 cm. Ad ditional peripherally enhancing cystic lesion in the right kidney measures 2.0 cm. Findings are worrisome for a malignancy, fur ther workup suggested. 2. Extensive colonic stool burden compatible with constipation. 3. Unchanged moderate hiatal hernia. 4. Cholecystectomy with stable dilatation of the common bile duct and intrahepa tic bile ducts. [facility]
--- NOTE | 2024-12-18 20:58 | RAD_ITS ---
PROCEDURE: CHEST PA AND LATERAL 12/18/2024 REASON FOR EXAM: WEAKNESS TECHNIQUE: Procedure Code: RADCXR Modality: DX Procedure: CHEST PA AND LATERAL COMPARISON: None available. FINDINGS: Hardware: None. Heart: The heart size is normal. Mediastinum: The mediastinal contour is unremarkable. Lungs: The lungs are clear. No pneumothorax or pleural effusion. Bones: The bones are unremarkable. RAD/Chest PA and Lateral IMPRESSION: NO ACUTE FINDINGS. Reading [facility]
[2024-12-18 21:40] LABS: Color, Urine Straw (Yellow); Glucose, Dipstick Normal (Normal); Ketone-Dipstick 5 mg/dl (Negative); Leukocyte Esterase-Dipstick Negative /ul (Negative); Nitrite-Dipstick Negative (Negative); Occult Blood-Urine Negative /ul (Negative); Protein-Dipstick Negative (Negative); Specific Gravity, Urine 1.005 (1.002-1.030); Urine Bilirubin Dipstick Negative (Negative)
[2024-12-18 21:48] LABS: Differential Comment SCANNED
[2024-12-18 22:00] VITALS: BP 142/76; PULSE 67; RESP 16; TEMP 36.6; O2SAT 96
[2024-12-18 22:48] LABS: Red Blood Cells-Urine 0-5 SEEN /hpf (0-5); Squamous Epithelial Cells - UA 0-5 SEEN /hpf (5-10)
[2024-12-18 23:00] VITALS: BP 149/71; PULSE 79; RESP 21; TEMP 36.6; O2SAT 100
[2024-12-18 23:40] VITALS: BP 149/71; PULSE 79; RESP 21; TEMP 36.6; O2SAT 100
== END 2024-12-18 23:41 | disposition home or self-care (01) ==
PROVIDERS: Emergency Provider Emergency Medicine; PCP Internal Medicine; Visit Provider Emergency Medicine
DX: R53.1 Weakness (principal); C64.9 Malignant neoplasm of unspecified kidney, except renal pelvis; E87.1 Hypo-osmolality and hyponatremia; R10.9 Unspecified abdominal pain; I10 Essential (primary) hypertension; N28.89 Other specified disorders of kidney and ureter; Z87.891 Personal history of nicotine dependence; K59.00 Constipation, unspecified; Z90.5 Acquired absence of kidney; K21.9 Gastro-esophageal reflux disease without esophagitis
CPT/HCPCS: 71046; 74177; 80053; 81001; 82150; 83690; 85025; 93005; 96360; 96361; 99284; P9612; Q9967; A4216

== ENCOUNTER → 2025-03-02 | Outpatient (CLI) | payer MEDICARE, SELFPAY ==
--- NOTE | 2025-03-02 14:40 | ART_ITS ---
Reason For Study Reason For Study: PVD Procedure A bilateral lower extremity continuous wave Doppler with analog waveform analysis,segmental pressures,and ankle brachial indexes without exercise. Left Segmental Pressures Left brachial= 129mmHg. Left posterior tibial artery = 162mmHg. Left dorsalis pedis artery = 159mmHg. Left digit = 137 mmHg. Right Segmental Pressures Right brachial= 118mmHg. Right posterior tibial artery = 165mmHg. Right dorsalis pedis artery = 160mmHg. Right digit = 149 mmHg. Indices The right resting ankle brachial index is 1.28. The right ankle brachial index by the posterior tibial artery is 1.28. The right ankle brachial index by the dorsalis pedis is 1.24. The right digital- brachial index is 1.16. The left resting ankle brachial index is 1.26. The left ankle brachial index by the posterior tibial artery is 1.26. The left ankle brachial index by the dorsalis pedis is 1.23. The left digital-brachial index is 1.06. VL/Lower Ext Art Exam w/o Exercis Interpretation Summary Triphasic Doppler waveforms are noted at ankle level bilaterally. Pulse-volume recordings appear diminished at digital level on the left, but satisfactory at all other levels bilaterally. Resting an kle-brachial indices are normal bilaterally. Digital-brachial indices are normal bilaterally. There is no evidence of significant arterial occlusive disease in the lower ext remities bilaterally. Ordering Physician: Joey Sosa Referring Physician: Femi Baeza Performed By: Di Martinez RVT, RDCS
== END | disposition home or self-care (01) ==
LOC: CVS 14:38
PROVIDERS: PCP Internal Medicine; Referring Provider Student in an Organized Health Care Education/Training Program; Visit Provider Student in an Organized Health Care Education/Training Program
DX: I73.9 Peripheral vascular disease, unspecified (principal); M79.674 Pain in right toe(s); M79.675 Pain in left toe(s)
CPT/HCPCS: 93923